=== PATIENT | female | born 1955 | race Caucasian/White ===

== ENCOUNTER → 2016-05-29 | Outpatient (CLI) | payer MEDICAID | LOC: RAD 15:11 | PROVIDERS: ATTEND Family Medicine | DX: R10.11 Right upper quadrant pain (principal); M51.36 Other intervertebral disc degeneration, lumbar region; M21.372 Foot drop, left foot | CPT/HCPCS: 72148 ==

== ENCOUNTER → 2016-05-30 | Outpatient (CLI) | payer MEDICAID | LOC: WI 08:27 | PROVIDERS: ATTEND Family Medicine | DX: R10.11 Right upper quadrant pain (principal); M21.372 Foot drop, left foot; K76.0 Fatty (change of) liver, not elsewhere classified | CPT/HCPCS: 76700 ==

== ENCOUNTER 2016-06-05 21:55 | Emergency (ER) | payer MEDICAID ==
[2016-06-05] MEDS ORDERED: ASPIRIN 81 MG TABLET, CHEWABLE PO ONE (22:12)
[2016-06-06] MEDS ORDERED: LIDOCAINE 2% VISCOUS SOLN 20 ML UDCUP PO ONE (00:56)
[2016-06-06] MEDS ORDERED: MAG HYDROX/AL HYDROX/SIMETH SUSP 30 ML UDCUP PO ONE (00:56)
[2016-06-06] MEDS ORDERED: METOCLOPRAMIDE HCL ORAL SOLN 10 MG/10 ML UDCUP PO ONE (00:56)
[2016-06-06] MEDS ORDERED: FAMOTIDINE 20 MG TABLET PO ONE (00:56)
--- NOTE | 2016-06-06 01:07 | ER Document Report ---
ED General - General Chief Complaint: Chest Pain Stated Complaint: CHEST PAIN Notes: Patient is a 60-year-old female past medical history of [id number] type II diabetes, hypertension, obesity who presents with 2 months of intermittent epigastric and right upper quadrant pain that intermittently radiates into her chest. Sates that the pain was more frequent today which prompted her to come to the emergency department for further evaluation. She did see her primary care doctor regarding these complaints and had an ultrasound of her abdomen done last week the results of which she has not been informed of. She has not had any associated vomiting, shortness of breath, hemoptysis, or exertional pain or dyspnea. No prior cardiac history and no history of DVT or pulmonary embolus. Does describe the pain as a dull, aching, cramping pain. Food does not trigger the pain. The pain does resolve spontaneously. TRAVEL OUTSIDE OF THE [place] IN LAST 30 DAYS: No - Related Data Allergies/Adverse Reactions: No Known Allergies Allergy (Verified 06/05/16 22:13) Past Medical History - General Information source: Patient - Social History Smoking Status: Never Smoker Frequency of alcohol use: None Drug Abuse: None Lives with: Spouse/Significant other Family History: Reviewed & Not Pertinent Patient has suicidal ideation: No Patient has homicidal ideation: No - Past Medical History Cardiac Medical History: Reports: Hx Hypercholesterolemia, Hx Hypertension Endocrine Medical History: Reports: Hx Diabetes Mellitus Type 2 Renal/ Medical History: Denies: Hx Peritoneal Dialysis Past Surgical History: Reports: Hx Tonsillectomy, Hx Tubal Ligation Review of Systems - Review of Systems Notes: Constitutional: Negative for fever. HENT: Negative for sore throat. Eyes: Negative for visual changes. Cardiovascular: Positive for chest pain. Respiratory: Negative for shortness of breath. Gastrointestinal: Positive for abdominal pain, negative for vomiting or diarrhea. Genitourinary: Negative for dysuria. Musculoskeletal: Negative for back pain. Skin: Negative for rash. Neurological: Negative for headaches, weakness or numbness. 10 point ROS negative except as marked above and in HPI. Physical Exam - Vital signs Vitals: Temp Pulse Resp BP Pulse Ox 98.1 F 100 18 152/81 H 96 06/05/16 21:59 06/05/16 21:59 06/05/16 21:59 06/05/16 21:59 06/05/16 21:59 Interpretation: Hypertensive Notes: PHYSICAL EXAMINATION: GENERAL: Well-appearing, well-nourished and in no acute distress. HEAD: Atraumatic, normocephalic. EYES: Pupils equal round and reactive to light, extraocular movements intact, sclera anicteric, conjunctiva are normal. ENT: nares patent, oropharynx clear without exudates. Moist mucous membranes. NECK: Normal range of motion, supple without lymphadenopathy LUNGS: Breath sounds clear to auscultation bilaterally and equal. No wheezes rales or rhonchi. HEART: Regular rate and rhythm without murmurs ABDOMEN: Soft, right upper quadrant epigastric tenderness to palpation, normoactive bowel sounds. No guarding, no rebound. No masses appreciated. EXTREMITIES: Normal range of motion, no pitting or edema. No cyanosis. NEUROLOGICAL: No focal neurological deficits. Moves all extremities spontaneously and on command. PSYCH: Normal mood, normal affect. SKIN: Warm, Dry, normal turgor, no rashes or lesions noted. Course - Re-evaluation Re-evalutation: 06/06/16 00:56 Patient presents with several months of intermittent right upper quadrant and epigastric abdominal pain intermittently radiating into her chest. Exam she has focal epigastric tenderness as well as right quadrant a gastritis or symptomatic cholelithiasis.Low clinical suspicion for ACS given clinical history , exam, EKG without ST elevations or depressions, and negative initial troponin. HEART score less than or equal to 3. PE also seems unlikely given clinical history, absence of tachycardia or dyspnea. CXR without evidence of pneumothorax or pneumonia. No widened mediastinum. Aortic dissection also seems unlikely given history, symmetric pulses, CXR, and vitals. Will obtain RUQ u/s and reassess HEART score:3 H:0 E:0 A:1 R:2 T:0 06/06/16 03:29 Right upper quadrant ultrasound shows gallbladder sludge which could be the source of patient's pain. Repeat abdominal exam remains reassuring without any rebound or guarding. Slight tenderness of right upper quadrant. She has tolerated oral intake without difficulty. I have referred to surgery for outpatient evaluation. Patient's urinalysis does demonstrate findings consistent with a acute cystitis. Culture has been sent. She was started on Keflex.At this time will discharge with return precautions and follow-up recommendations. Verbal discharge instructions given a the bedside and opportunity for questions given. Medication warnings reviewed. Patient is in agreement with this plan and has verbalized understanding of return precautions and the need for primary care follow-up in the next 24-72 hours. - Vital Signs Vital signs: Temp Pulse Resp BP Pulse Ox 98.1 F 100 18 152/81 H 96 06/05/16 21:59 06/05/16 21:59 06/05/16 21:59 06/05/16 21:59 06/05/16 21:59 - Laboratory Result Diagrams: 06/06/16 01:10 06/06/16 01:10 Laboratory results interpreted by me: 06/06/16 06/06/16 06/06/16 01:10 01:10 02:51 Hct 35.3 L RDW 14.1 H BUN 21 H Glucose 320 H Urine Protein 100 H Urine Glucose (UA) >=500 H Urine Blood SMALL H Urine Nitrite POSITIVE H Ur Leukocyte Esterase SMALL H - EKG Interpretation by Me Additional EKG results interpreted by me: 06/06/16 01:26 Sinus tachycardia. Rate 101. No ST elevations or depressions. QTC is 446. Discharge - Discharge Clinical Impression: Epigastric abdominal pain, Gallbladder sludge Acute cystitis Qualifiers: Hematuria presence: without hematuria Qualified Code(s): N30.00 - Acute cystitis without hematuria Condition: Good Disposition: HOME, SELF-CARE Additional Instructions: You have been seen in the Emergency Department (ED) for abdominal pain. Your evaluation did not identify a clear cause of your symptoms but was generally reassuring. Your ultrasound does show gallbladder sludge and this could be a trigger for some of your upper abdominal pain. Your urinalysis also shows findings consistent with a urinary tract infection. You are being started on Keflex to treat this infection. You need to complete all antibiotics even if your symptoms have resolved. Please follow-up with surgery as an outpatient regarding your gallbladder. Please follow up with your doctor as soon as possible regarding today's emergent visit and the symptoms that are bothering you. Return to the ED if your abdominal pain worsens or fails to improve, you develop bloody vomiting, bloody diarrhea, you are unable to tolerate fluids due to vomiting, fever greater than 101, or other symptoms that concern you. Prescriptions: Cephalexin Monohydrate [Keflex 500 mg Capsule] 500 mg PO QID #20 capsule Referrals: MARIAN DOWNING MD [Primary Care Provider] - Follow up as needed DEUCE JEFFERSON MD [ACTIVE STAFF] - Follow up in 3-5 days
[2016-06-06 01:26] LABS: ABSOLUTE BASOPHILS # (AUTO) 0.1 10^3/uL (0.0-0.2); ABSOLUTE EOSINOPHILS # (AUTO) 0.1 10^3/uL (0.0-0.6); ABSOLUTE LYMPHOCYTES (AUTO) 2.1 10^3/uL (0.5-4.7); ABSOLUTE MONOCYTES (AUTO) 0.7 10^3/uL (0.1-1.4); ABSOLUTE NEUT (AUTO) 2.6 10^3/uL (1.7-8.2); BASOPHILS % (AUTO) 1.2 % (0-2); EOSINOPHILS % (AUTO) 2.5 % (0-6); HEMATOCRIT 35.3 % (36.0-47.0); HEMOGLOBIN 12.2 g/dL (12.0-15.5); HGB HCT DIFFERENCE 1.3; MEAN CORPUSCULAR HEMOGLOBIN 32.5 pg (27.0-33.4); MEAN CORPUSCULAR HGB CONC 34.7 g/dL (32.0-36.0); MEAN CORPUSCULAR VOLUME 94 fl (80-97); MONOCYTES % (AUTO) 12.5 % (3-13); RED BLOOD COUNT 3.77 10^6/uL (3.72-5.28); RED CELL DISTRIBUTION WIDTH 14.1 % (11.5-14.0); SEGMENTED NEUTROPHILS % (AUTO) 46.8 % (42-78); WHITE BLOOD COUNT 5.6 10^3/uL (4.0-10.5)
[2016-06-06 01:47] LABS: ANION GAP 14 (5-19); BLOOD UREA NITROGEN 21 mg/dL (7-20); CALCIUM 9.8 mg/dL (8.4-10.2); CARBON DIOXIDE 28 mmol/L (22-30); CHLORIDE 102 mmol/L (98-107); CREATININE RESULT 0.76 mg/dL (0.52-1.25); GLUCOSE 320 mg/dL (75-110); POTASSIUM 4.4 mmol/L (3.6-5.0); SODIUM 143.8 mmol/L (137-145)
[2016-06-06 02:45] LABS: ADD ON TESTING BLD IN LAB ACKNOWLEDGE
[2016-06-06 02:59] LABS: ALANINE AMINOTRANSFERASE 33 U/L (9-52); ALKALINE PHOSPHATASE 109 U/L (38-126); ASPARTATE AMINO TRANSFERASE 25 U/L (14-36); BILIRUBIN,DIRECT 0.3 mg/dL (0.0-0.4); BILIRUBIN,TOTAL 0.5 mg/dL (0.2-1.3); LIPASE 137.6 U/L (23-300); TOTAL PROTEIN 7.3 g/dL (6.3-8.2)
[2016-06-06 03:14] LABS: APPEARANCE,URINE CLOUDY; BILIRUBIN,URINE NEGATIVE (NEGATIVE); GLUCOSE, URINE >=500 mg/dL (NEGATIVE); KETONES,URINE NEGATIVE (NEGATIVE); LEUKOCYTE ESTERASE,URINE SMALL (NEGATIVE); NITRITE,URINE POSITIVE (NEGATIVE); PROTEIN,URINE 100 mg/dL (NEGATIVE); URINE SPECIFIC GRAVITY 1.027; UROBILINOGEN,URINE NEGATIVE mg/dL (<2.0)
[2016-06-06] MEDS ORDERED: CEPHALEXIN 500 MG CAPSULE PO ONE (03:28)
[2016-06-06 05:06] VITALS: BP 152/91
--- NOTE | 2016-06-08 08:39 | EKG REPORT ---
SEVERITY:- ABNORMAL ECG - SINUS TACHYCARDIA PROBABLE INFERIOR INFARCT, AGE INDETERMINATE ANTERIOR INFARCT, AGE INDETERMINATE : Confirmed by: Sparkle Ingram 08-Jun-2016 08:38:10
== END 2016-06-06 03:45 | disposition home or self-care (01) ==
LOC: ER 21:55
DX: K82.8 Other specified diseases of gallbladder (principal); N30.00 Acute cystitis without hematuria; R10.13 Epigastric pain; R10.11 Right upper quadrant pain; E11.9 Type 2 diabetes mellitus without complications; I10 Essential (primary) hypertension; R07.9 Chest pain, unspecified; R00.0 Tachycardia, unspecified
CPT/HCPCS: 93005; 99284; 36415; 87086; 83690; 85025; 87088; 80076; 80048; 81001; 84484; 87186; 71010; 76705; 93010; J3490 ×4

== ENCOUNTER 2016-07-23 14:05 | Day surgery (SDC) | payer MEDICAID ==
[2016-07-17 08:01] LABS: HEMATOCRIT 34.8 % (36.0-47.0); HGB HCT DIFFERENCE 1.2; MEAN CORPUSCULAR HEMOGLOBIN 32.1 pg (27.0-33.4); MEAN CORPUSCULAR HGB CONC 34.5 g/dL (32.0-36.0); MEAN CORPUSCULAR VOLUME 93 fl (80-97); RED BLOOD COUNT 3.74 10^6/uL (3.72-5.28); RED CELL DISTRIBUTION WIDTH 13.9 % (11.5-14.0); WHITE BLOOD COUNT 7.8 10^3/uL (4.0-10.5)
[2016-07-18 11:41] LABS: ALANINE AMINOTRANSFERASE 25 U/L (9-52); ALBUMIN 4.1 g/dL (3.5-5.0); ALKALINE PHOSPHATASE 110 U/L (38-126); ANION GAP 13 (5-19); ASPARTATE AMINO TRANSFERASE 18 U/L (14-36); BILIRUBIN,TOTAL 0.5 mg/dL (0.2-1.3); BLOOD UREA NITROGEN 27 mg/dL (7-20); CALCIUM 10.4 mg/dL (8.4-10.2); CARBON DIOXIDE 30 mmol/L (22-30); CHLORIDE 99 mmol/L (98-107); CREATININE RESULT 0.93 mg/dL (0.52-1.25); GLUCOSE 184 mg/dL (75-110); POTASSIUM 3.9 mmol/L (3.6-5.0); SODIUM 142.4 mmol/L (137-145)
[2016-07-18 11:42] LABS: AMYLASE 44 U/L (30-110); BILIRUBIN,DIRECT 0.4 mg/dL (0.0-0.4); TOTAL PROTEIN 7.2 g/dL (6.3-8.2)
--- NOTE | 2016-07-19 17:49 | EKG REPORT ---
SEVERITY:- ABNORMAL ECG - SINUS RHYTHM PROBABLE INFERIOR INFARCT, AGE INDETERMINATE BORDERLINE R WAVE PROGRESSION, ANTERIOR LEADS : Confirmed by: Nicole Rodriguez MD 19-Jul-2016 17:48:29
[~2016-07-23 14:05] MED LIST: ACETAMINOPHEN 325 MG TABLET PO PRN; CEFAZOLIN 1 GM/D5W RTU 1 GM/50 ML RTUPB IV PRN; DEXAMETHASONE SOD PHOSPHATE INJ 4 MG/1 ML VIAL ONE; GLYCOPYRROLATE INJ 0.4 MG/2 ML VIAL ONE; LIDOCAINE 0.5% INJ-PF (5 MG/ML) 50 ML SDV INJ PRN; LIDOCAINE 2% INJ-PF (20 MG/ML) 10 ML AMPUL ONE; NEOSTIGMINE METHYLSULFATE 10 MG/10 ML VIAL ONE; ONDANSETRON HCL INJ/PF 4 MG/2 ML SDV ONE; RINGERS SOLUTION,LACTATED 1,000 ML IV PRN; ROCURONIUM BROMIDE INJ 50 MG/5 ML VIAL IV ONE; SUCCINYLCHOLINE CHLORIDE INJ 200 MG/10 ML VIAL ONE
[2016-07-23] MEDS ORDERED: ONDANSETRON HCL INJ/PF 4 MG/2 ML SDV ONE ×2 (15:49→18:38)
[2016-07-23] MEDS ORDERED: MIDAZOLAM 2 MG/2 ML INJ ONE ×2 (15:49→16:50)
[2016-07-23] MEDS ORDERED: FENTANYL CITRATE INJ/PF 250 MCG/5 ML AMPULE ONE (16:50)
[2016-07-23] MEDS ORDERED: HYDROMORPHONE HCL INJ/PF 2 MG/ML AMPULE ONE (16:50)
[2016-07-23] MEDS ORDERED: EPHEDRINE SULFATE INJ 50 MG/1 ML AMPULE ONE (16:50)
[2016-07-23] MEDS ORDERED: PROPOFOL INJ 200 MG/20 ML VIAL IV ONE (16:51)
[2016-07-23] MEDS ORDERED: ACETAMINOPHEN 100 ML IV ONE (16:51)
[2016-07-23] MEDS ORDERED: BUPIVACAINE HCL 0.25 % INJ/PF (2.5 MG/1 ML) 30 ML VIAL ONE (16:53)
[2016-07-23] MEDS ORDERED: PROMETHAZINE HCL INJ 25 MG/1 ML VIAL IV PRN ×2 (17:39)
[2016-07-23] MEDS ORDERED: OXYCODONE-ACETAMINOPHEN 5-325 MG TABLET PO PRN ×3 (17:39→18:14)
[2016-07-23] MEDS ORDERED: FENTANYL CITRATE INJ/PF 100 MCG/2 ML AMPUL IV PRN ×3 (17:39)
[2016-07-23] MEDS ORDERED: MEPERIDINE HCL/PF INJ 25 MG/1 ML DISP.SYRIN IV PRN (17:39)
[2016-07-23] MEDS ORDERED: DIPHENHYDRAMINE HCL 50 MG/ML VIAL IV PRN (17:39)
[2016-07-23] MEDS ORDERED: MORPHINE SULFATE 10 MG/ML INJ IV PRN ×2 (17:39→18:14)
[2016-07-23] MEDS ORDERED: ONDANSETRON HCL INJ/PF 4 MG/2 ML SDV IV PRN (18:14)
[2016-07-23] MEDS ORDERED: RINGERS SOLUTION,LACTATED 1,000 ML IV PRN (18:14)
--- NOTE | 2016-07-23 18:14 | Operative Report ---
Operative Report DATE OF SURGERY: 07/23/16 PREOPERATIVE DIAGNOSIS: Symptomatic cholelithiasis and cholecystitis POSTOPERATIVE DIAGNOSIS: Same OPERATION: Laparoscopic cholecystectomy SURGEON: DEUCE JEFFERSON 1ST TURBINE TECHNICIAN: MAKEDA MACK ANESTHESIA: GA TISSUE REMOVED OR ALTERED: 1 gallbladder with stones COMPLICATIONS: None none ESTIMATED BLOOD LOSS: Scant INTRAOPERATIVE FINDINGS: See below PROCEDURE: Patient was taken to the preop holding area the main operating room where general anesthesia was induced. Abdomen was exposed, prepped and draped in a sterile fashion and instrumentation set up for laparoscopic cholecystectomy. Of note the patient was morbidly obese with a BMI of 46. A supraumbilical vertical incision was made with a knife , Veress needle inserted into the peritoneal cavity and pneumoperitoneum was established. The Veress needle was removed, 5 mm port standard length was inserted into the peritoneal cavity and a 5 mm flexible viewing scope was inserted. Under direct visualization 3 additional ports were placed one in the subxiphoid and 2 in the subcostal positions Findings were significant for distended gallbladder. Gallbladder was aspirated approximately 100 cc of bile with the sharp trocar. We attempted to grasp the gallbladder from the fundus and infundibulum but the visualization was poor due to the patient's body habitus preventing adequate exposure. Therefore we rotated to a top down approach. Gallbladder was taken off of the liver bed in the methodical fashion using hook cautery dissection. We proceeded in a very thorough excellently visualized fashion all the way down to the neck of the gallbladder. Once this was accomplished we are able to get around the neck of the gallbladder circumferentially and confirm that we were now suspended solely from the cystic artery and the cystic duct. Photographs were taken. Cystic artery was clipped twice proximally once distally and divided with scissors. The cystic duct in its usual location was clipped twice proximally once distally and it was divided with scissors. The gallbladder was removed from the patient in the supraumbilical port site incision where there is no spillage of stones or bile. We checked the subhepatic space for bleeding bile leak and was none; all ports removed under direct visualization, wounds closed with 3-0 Vicryl benzoin and Steri-Strips. Patient taught procedure well taken to recovery in stable condition. KYLIE Mack, assistant drafter with port insertion, tissue retraction, and wound closure.
--- NOTE | 2016-07-23 18:24 | PDOC DISCHARGE SUMMARY ---
Discharge Summary (SDC) - Discharge Final Diagnosis: Symptomatic GS Date of Surgery: 07/23/16 Discharge Date: 07/23/16 Condition: Good Treatment or Instructions: [facility] [address] [place] [id number] Discharge Instructions: Laparoscopic Surgery 1. General Information: a. DO NOT DRIVE a car or operate dangerous machinery for 3-4 days or while taking narcotic pain pills. b. DO NOT consume alcohol, tranquilizers, sleeping medications or any non- prescribed medications for 24 hours unless approved by your doctor or as long as taking narcotic prescription medications. c. DO NOT make important decisions or sign any important papers for the first 24 hours after surgery. d. When discharged home the same day of surgery have a responsible person with you for the first night. 2. Activity Restrictions: 4 weeks. a. NO heavy lifting, straining abdominal muscles, bending over a lot, yard work, house work, or sports for 2 weeks. b. c. It is fine to go for walks, up and down steps, ride in a car. d. Elevate your head when sleeping/resting. 3. Treatment: a. You may shower 24 hours after surgery, no baths or swimming for 2 weeks. Remove band-aids or dressings before shower but leave paper strips (steri-strips ) on the skin to fall off on their own. If still on at postoperative visit they will be removed then. b. Drainage of fluid or blood is not unusual from an incision. If occurs, you can clean with peroxide and cotton ball daily and cover with dry gauze until the wound seals. c. If a lot of bleeding occurs, you can hold pressure with a gauze or cloth over the site for 10 minutes and it will usually stop. If bleeding continues you will need to call for possible evaluation in office or emergency room. 4. Medications: a. . You may switch to plain Tylenol, Advil or Aleve as you transition from the narcotic. Many adults find good pain relief with Advil 600-800 mg three times a day with meals. This can cause indigestion, ulcers, and kidney problems with long-term use. b. You should resume all normal medications unless a change is specified by your doctors. c. Begin with clear liquids and may progress to your normal diet if not nauseated. No high fat, high protein foods the day of surgery. Normal diet 6. The following may occur after laparoscopic surgery: a. Shoulder or upper back ache from retained gas that should resolve in 1-2 days b. Soreness and bruising at incision sites will resolve with time. c. Scrotal swelling (labia in women) and bruising is often seen after hernia surgery. d. Sore throat e. Fatigue may last days to weeks. f. Difficulty urinating may occur and may need to come into emergency room for urinary catheter placement. 7. Notify Physician If: a. Worsening or pain not improved with pain medication b. Persistent nausea and vomiting c. Fever above 101 d. Persistent bleeding or swelling at operative site e. Unable to urinate and uncomfortable bladder 6-8 hours after surgery 8..Follow Up Care: a. Schedule a follow up appointment with your doctor for 2 weeks. In the event of any postoperative problems or questions or you may call the office during business hours or the On-Call physician evenings and weekends at [facility]. [facility] I understand the instructions for my postoperative care as described above and a copy has been given to me. Patient/Significant Other Witness Date Prescriptions: Ketorolac Tromethamine [Toradol 10 mg Tablet] 10 mg PO Q6HP PRN #0 tablet PRN Reason: Discharge Diet: As Tolerated Discharge Activity: Activity As Tolerated Home Care Assistance: None Needed Report the Following to Your Physician Immediately: Shortness of Breath, Increase in Pain, Fever over 101 Degrees
[2016-07-23] MEDS ORDERED: DEXTROSE 50%-WATER 25 GM/50 ML DISP.SYRIN IV ONE (18:27)
[2016-07-24 10:16] VITALS: BP 136/68
== END 2016-07-24 11:29 | disposition home or self-care (01) ==
LOC: OROUT 14:05 → 4S 19:22 → OROUT 07-24 11:29
PROVIDERS: ATTEND Surgery
PROC: 0FT44ZZ Resection of Gallbladder, Percutaneous Endoscopic Approach (ICD-10-PCS; principal; 2016-07-23 15:45)
DX: K81.1 Chronic cholecystitis (principal); E11.9 Type 2 diabetes mellitus without complications; I10 Essential (primary) hypertension; E66.9 Obesity, unspecified; M19.90 Unspecified osteoarthritis, unspecified site; Z79.891 Long term (current) use of opiate analgesic; Z79.84 Long term (current) use of oral hypoglycemic drugs; Z79.4 Long term (current) use of insulin; Z68.42 Body mass index [BMI] 45.0-49.9, adult
CPT/HCPCS: 93005; 36415 ×2; 82962; 82150; 84132; 85027; 80076; 80048; 88304 ×2; 93010; 47562; J2250; J0690; J3490 ×5; J1100; J3010; J0330; J2405; S0020; J2704; J0131; 790; J1170

== ENCOUNTER → 2016-09-08 | Outpatient (CLI) | payer MEDICAID ==
--- NOTE | 2016-09-08 17:05 | RADIOLOGY REPORT (SQ) ---
EXAM DESCRIPTION: SHOULDER LEFT 2 OR MORE VIEWS COMPLETED DATE/TIME: 09/08/2016 4:52 pm REASON FOR STUDY: UNSP INJURY OF LEFT SHOULDER AND UPPER ARM, INIT ENCNTR S49.92XA UNSP INJURY OF L EFT SHOULDER AND UPPER ARM, INIT EN COMPARISON: None. NUMBER OF VIEWS: Three views. TECHNIQUE: Internal rotation, external rotation, and Y view images acquired of the left shoulder. LIMITATIONS: None. FINDINGS: MINERALIZATION: Osteopenia. BONES: No acute fracture. Glenohumeral osteoarthritis. JOINTS: No dislocation. VISUALIZED LUNGS AND RIBS: No pneumothorax. No rib fracture. SOFT TISSUES: No radiopaque foreign body. OTHER: No other significant finding. IMPRESSION: No acute fracture. TECHNICAL DOCUMENTATION: JOB ID: [id number] [employer]- All Rights Reserved
== END ==
LOC: OD 15:47
PROVIDERS: ATTEND Family Medicine
DX: S49.92XA Unspecified injury of left shoulder and upper arm, initial encounter (principal)

== ENCOUNTER → 2016-10-28 | Outpatient (CLI) | payer MEDICAID ==
[2016-10-28 10:19] LABS: HEMATOCRIT 30.2 % (36.0-47.0); HEMOGLOBIN 10.7 g/dL (12.0-15.5); HGB HCT DIFFERENCE 1.9; MEAN CORPUSCULAR HGB CONC 35.5 g/dL (32.0-36.0); MEAN CORPUSCULAR VOLUME 93 fl (80-97); RED BLOOD COUNT 3.25 10^6/uL (3.72-5.28); RED CELL DISTRIBUTION WIDTH 14.8 % (11.5-14.0); WHITE BLOOD COUNT 6.5 10^3/uL (4.0-10.5)
[2016-10-28 10:36] LABS: ALANINE AMINOTRANSFERASE 31 U/L (9-52); ALKALINE PHOSPHATASE 105 U/L (38-126); ANION GAP 11 (5-19); ASPARTATE AMINO TRANSFERASE 22 U/L (14-36); BILIRUBIN,DIRECT 0.4 mg/dL (0.0-0.4); BILIRUBIN,TOTAL 0.7 mg/dL (0.2-1.3); BLOOD UREA NITROGEN 22 mg/dL (7-20); CALCIUM 9.2 mg/dL (8.4-10.2); CARBON DIOXIDE 30 mmol/L (22-30); CHLORIDE 102 mmol/L (98-107); CHOLESTEROL 218.44 mg/dL (0-200); CREATINE KINASE 87 U/L (30-135); CREATININE RESULT 0.94 mg/dL (0.52-1.25); Direct HDL 79 mg/dL (>40); GLUCOSE 129 mg/dL (75-110); POTASSIUM 4.5 mmol/L (3.6-5.0); SODIUM 143.4 mmol/L (137-145); TOTAL PROTEIN 6.9 g/dL (6.3-8.2); TRIGLYCERIDES 253 mg/dL (<150)
[2016-10-28 10:47] LABS: DIRECT LDL 89 mg/dL (<100)
[2016-10-28 10:48] LABS: VLDL CHOLESTEROL 50.6 mg/dL (10-31)
[2016-10-28 11:13] LABS: MAGNESIUM 1.2 mg/dL (1.6-2.3)
== END ==
LOC: OD 08:39
PROVIDERS: ATTEND Internal Medicine Cardiovascular Disease
DX: R25.2 Cramp and spasm (principal); I49.9 Cardiac arrhythmia, unspecified; E78.2 Mixed hyperlipidemia; Z79.899 Other long term (current) drug therapy
CPT/HCPCS: 36415; 80048; 80061; 80076; 82306; 82550; 83036; 83735; 84443; 85027

== ENCOUNTER → 2016-11-13 | Outpatient (CLI) | payer MEDICAID ==
--- NOTE | 2016-11-13 15:02 | RADIOLOGY REPORT (SQ) ---
EXAM DESCRIPTION: U/S RETROPERITON (RENAL/AORTA) COMPLETED DATE/TIME: 11/13/2016 1:19 pm REASON FOR STUDY: CKD STAGE 3/TYPE 2 DIABETES N18.3 CHRONIC KIDNEY DISEASE, STAGE 3 (MODERATE) E11. 9 TYPE 2 DIABETES MELLITUS WITHOUT COMPLICATIONS COMPARISON: Abdominal ultrasound 05/30/2016, 06/06/2016 TECHNIQUE: Static and dynamic grayscale images acquired of the kidneys and bladder and stored on PAC s. Selected color Doppler and spectral images recorded. LIMITATIONS: Large body habitus FINDINGS: Limited visualization due to morbid obesity. Both kidneys measure 11 cm in length without hydronephrosis. Normal cortical thickness and echogenicity. No gross stones. Bladder was decompressed and not well-visualized. IMPRESSION: No hydronephrosis. TECHNICAL DOCUMENTATION: JOB ID: [id number] [employer]- All Rights Reserved
== END ==
LOC: RAD 12:48
PROVIDERS: ATTEND Internal Medicine Nephrology
DX: I12.9 Hypertensive chronic kidney disease with stage 1 through stage 4 chronic kidney disease, or unspecified chronic kidney disease (principal); N18.3 Chronic kidney disease, stage 3 (moderate); E11.9 Type 2 diabetes mellitus without complications
CPT/HCPCS: 76770

== ENCOUNTER → 2016-11-24 | Outpatient (CLI) | payer MEDICAID ==
[2016-11-24 13:29] LABS: HEMATOCRIT 30.6 % (36.0-47.0); HEMOGLOBIN 10.9 g/dL (12.0-15.5); HGB HCT DIFFERENCE 2.1; MEAN CORPUSCULAR HEMOGLOBIN 32.7 pg (27.0-33.4); MEAN CORPUSCULAR HGB CONC 35.6 g/dL (32.0-36.0); MEAN CORPUSCULAR VOLUME 92 fl (80-97); RED BLOOD COUNT 3.32 10^6/uL (3.72-5.28); RED CELL DISTRIBUTION WIDTH 14.5 % (11.5-14.0); WHITE BLOOD COUNT 8.6 10^3/uL (4.0-10.5)
[2016-11-24 13:52] LABS: APPEARANCE,URINE SLIGHTLY-CLOUDY; BILIRUBIN,URINE NEGATIVE (NEGATIVE); GLUCOSE, URINE 50 mg/dL (NEGATIVE); KETONES,URINE NEGATIVE (NEGATIVE); LEUKOCYTE ESTERASE,URINE TRACE (NEGATIVE); NITRITE,URINE NEGATIVE (NEGATIVE); PROTEIN,URINE NEGATIVE (NEGATIVE); URINE SPECIFIC GRAVITY 1.006; UROBILINOGEN,URINE NEGATIVE mg/dL (<2.0)
[2016-11-24 13:53] LABS: ANION GAP 11 (5-19); BLOOD UREA NITROGEN 32 mg/dL (7-20); CALCIUM 10.1 mg/dL (8.4-10.2); CARBON DIOXIDE 31 mmol/L (22-30); CHLORIDE 99 mmol/L (98-107); CREATININE RESULT 1.25 mg/dL (0.52-1.25); GLUCOSE 180 mg/dL (75-110); POTASSIUM 3.9 mmol/L (3.6-5.0); SODIUM 141.1 mmol/L (137-145)
[2016-11-24 14:13] LABS: URINE CREATININE 44.1 mg/dL (15-278); URINE PROTEIN 22.7 mg/dL (<12)
== END ==
LOC: OD 12:06
PROVIDERS: ATTEND Physician Assistant Medical
DX: E11.22 Type 2 diabetes mellitus with diabetic chronic kidney disease (principal); I12.9 Hypertensive chronic kidney disease with stage 1 through stage 4 chronic kidney disease, or unspecified chronic kidney disease; N18.3 Chronic kidney disease, stage 3 (moderate); R60.9 Edema, unspecified; E83.42 Hypomagnesemia
CPT/HCPCS: 36415; 80048; 81001; 82306; 82570; 83735; 84156; 85027

== ENCOUNTER → 2016-12-18 | Outpatient (CLI) | payer MEDICAID ==
[2016-12-18 10:41] LABS: HEMATOCRIT 30.5 % (36.0-47.0); HEMOGLOBIN 10.8 g/dL (12.0-15.5); HGB HCT DIFFERENCE 1.9; MEAN CORPUSCULAR HEMOGLOBIN 33.2 pg (27.0-33.4); MEAN CORPUSCULAR HGB CONC 35.5 g/dL (32.0-36.0); MEAN CORPUSCULAR VOLUME 94 fl (80-97); RED BLOOD COUNT 3.26 10^6/uL (3.72-5.28); RED CELL DISTRIBUTION WIDTH 14.4 % (11.5-14.0); WHITE BLOOD COUNT 6.9 10^3/uL (4.0-10.5)
[2016-12-18 11:06] LABS: ANION GAP 13 (5-19); BLOOD UREA NITROGEN 28 mg/dL (7-20); CALCIUM 9.6 mg/dL (8.4-10.2); CARBON DIOXIDE 30 mmol/L (22-30); CHLORIDE 103 mmol/L (98-107); GLUCOSE 188 mg/dL (75-110); POTASSIUM 3.9 mmol/L (3.6-5.0); SODIUM 146.3 mmol/L (137-145)
[2016-12-18 11:44] LABS: APPEARANCE,URINE CLOUDY; BILIRUBIN,URINE NEGATIVE (NEGATIVE); GLUCOSE, URINE NEGATIVE (NEGATIVE); KETONES,URINE NEGATIVE (NEGATIVE); LEUKOCYTE ESTERASE,URINE LARGE (NEGATIVE); NITRITE,URINE NEGATIVE (NEGATIVE); PROTEIN,URINE 30 mg/dL (NEGATIVE); URINE SPECIFIC GRAVITY 1.016; UROBILINOGEN,URINE NEGATIVE mg/dL (<2.0)
== END ==
LOC: OD 09:52
PROVIDERS: ATTEND Physician Assistant Medical
DX: E11.22 Type 2 diabetes mellitus with diabetic chronic kidney disease (principal); I12.9 Hypertensive chronic kidney disease with stage 1 through stage 4 chronic kidney disease, or unspecified chronic kidney disease; N18.3 Chronic kidney disease, stage 3 (moderate); D64.9 Anemia, unspecified; E83.42 Hypomagnesemia
CPT/HCPCS: 36415; 80048; 81001; 82607; 82728; 83540; 83550; 84443; 85027

== ENCOUNTER 2017-04-17 07:10 | Day surgery (SDC) | payer MEDICAID ==
[2017-04-17 07:52] LABS: POTASSIUM 3.6 mmol/L (3.6-5.0)
[2017-04-17 08:29] LABS: ANION GAP 10 (5-19); BLOOD UREA NITROGEN 21 mg/dL (7-20); CALCIUM 10.1 mg/dL (8.4-10.2); CARBON DIOXIDE 29 mmol/L (22-30); CHLORIDE 106 mmol/L (98-107); GLUCOSE 150 mg/dL (75-110); POTASSIUM 3.6 mmol/L (3.6-5.0); SODIUM 144.7 mmol/L (137-145)
[2017-04-17] MEDS ORDERED: PROPOFOL INJ 200 MG/20 ML VIAL IV ONE ×2 (09:31→10:07)
[2017-04-17] MEDS ORDERED: DIPHENHYDRAMINE HCL 50 MG/ML VIAL IV PRN (10:09)
[2017-04-17] MEDS ORDERED: PROMETHAZINE HCL INJ 25 MG/1 ML VIAL IV PRN ×2 (10:09)
[2017-04-17] MEDS ORDERED: OXYCODONE-ACETAMINOPHEN 5-325 MG TABLET PO PRN ×2 (10:09)
[2017-04-17] MEDS ORDERED: FENTANYL CITRATE INJ/PF 100 MCG/2 ML AMPUL IV PRN ×3 (10:09)
[2017-04-17] MEDS ORDERED: MORPHINE SULFATE 10 MG/ML INJ IV PRN (10:09)
[2017-04-17] MEDS ORDERED: MEPERIDINE HCL/PF INJ 25 MG/1 ML DISP.SYRIN IV PRN (10:09)
--- NOTE | 2017-04-17 10:23 | Operative Report ---
Operative Report DATE OF SURGERY: 04/17/17 Operative Report: The risks, benefits and alternatives of the procedure including risks of bleeding, perforation requiring surgery are explained to the patient in detail and informed consent is obtained. Patient was taken back to the operating room and placed in a left, lateral decubital position. Timeout was called. Propofol medications administered. A rectal examination is done which did not reveal any masses, tears or fissures. An Olympus videoscope was inserted into the patient's rectum. The scope was then carefully advanced all the way to the cecum. The cecum was identified by the usual anatomical landmarks including the ileocecal valve as well as the appendiceal office. Photodocumentation is obtained. Scope was then sequentially pulled back via the various segments of the colon including the ascending colon, hepatic flexure, transverse colon, splenic flexure, descending colon and finding to the rectosigmoid portions of the colon. Retroflexion maneuvers performed. The risks benefits and alternatives of the procedure explained to the patient in detail and informed consent is obtained.A GIF Olympus video scope was inserted into the patient's mouth and hypopharynx, the esophagus is identified intubated and insufflated, the scope was then advanced through the esophagus stomach and duodenum, retroflexion maneuver is done, the esophagus stomach and first and second portions of the duodenum examined PREOPERATIVE DIAGNOSIS: Iron deficiency anemia POSTOPERATIVE DIAGNOSIS: Colon polyp, status post removal no tissue retrieved it was ablated in situ. Left side colitis status post biopsy. internal hemorrhoids. gastritis status post biopsy rule out Helicobacter pylori. Duodenitis OPERATION: Colonoscopy with snare polypectomy. Colonoscopy with biopsy. EGD with biopsy SURGEON: CAMELIA PINEDA ANESTHESIA: LMAC TISSUE REMOVED OR ALTERED: As noted above. COMPLICATIONS: None. ESTIMATED BLOOD LOSS: None. INTRAOPERATIVE FINDINGS: As described above. PROCEDURE: Patient tolerated procedure well. No immediate postprocedure complications are noted. Patient discharged in good condition. Discharge date 04/17/2018. Discharge diet: Regular. Discharge activity: Regular. 2-3 week follow-up to discuss findings. 3 year surveillance colonoscopy. We will await pathology. Patient is instructed call the office or proceed to the emergency room should there be any further problems or questions.
[2017-04-17] MEDS ORDERED: LIDOCAINE 0.5% INJ-PF (5 MG/ML) 50 ML SDV SUBCUT PRN (10:49)
--- NOTE | 2017-04-17 11:06 | EKG REPORT ---
SEVERITY:- ABNORMAL ECG - SINUS RHYTHM LOW VOLTAGE THROUGHOUT CONSIDER INFERIOR INFARCT CONSIDER ANTERIOR INFARCT BORDERLINE T WAVE ABNORMALITIES BORDERLINE PROLONGED QT INTERVAL : Confirmed by: Sparkle Ingram 17-Apr-2017 11:05:09
[2017-04-17 12:07] VITALS: BP 172/90
[2017-04-20] MEDS ORDERED: OXYCODONE HCL SR 10 MG TABLET PO PRN (05:00)
[2017-04-20] MEDS ORDERED: CEFAZOLIN INJ 1 GM VIAL IV PRN (05:00)
[2017-04-20] MEDS ORDERED: LANSOPRAZOLE 15 MG TAB.RAP.DR PO PRN (05:00)
[2017-04-20] MEDS ORDERED: BUPIVACAINE INJ/PF LIPOSOME/PF 266 MG/20 ML SDV INJ PRN (05:00)
[2017-04-20] MEDS ORDERED: IBUPROFEN 800 MG in NORMAL SALINE 250 ML IV PRN (05:00)
[2017-04-20] MEDS ORDERED: VANCOMYCIN HCL 1,000 MG in DEXTROSE 5%-WATER 250 ML IV PRN (05:00)
== END 2017-04-17 11:50 | disposition home or self-care (01) ==
LOC: OROUT 07:10
PROVIDERS: ATTEND Internal Medicine Gastroenterology
PROC: 0DB68ZX Excision of Stomach, Via Natural or Artificial Opening Endoscopic, Diagnostic (ICD-10-PCS; principal; 2017-04-17 09:30)
PROC: 0DBE8ZX Excision of Large Intestine, Via Natural or Artificial Opening Endoscopic, Diagnostic (ICD-10-PCS; 2017-04-17 09:30)
PROC: 0DBE8ZZ Excision of Large Intestine, Via Natural or Artificial Opening Endoscopic (ICD-10-PCS; 2017-04-17 09:30)
DX: R13.10 Dysphagia, unspecified (principal); K63.5 Polyp of colon; D50.9 Iron deficiency anemia, unspecified; K52.9 Noninfective gastroenteritis and colitis, unspecified; K29.80 Duodenitis without bleeding; K29.70 Gastritis, unspecified, without bleeding
CPT/HCPCS: 45388; 45380; 43239; 36415; 82947; 84132; 80048; 88305 ×2; 93005; 93010; J2704; 813

== ENCOUNTER 2017-12-17 17:51 | Emergency (ER) | payer MEDICAID ==
--- NOTE | 2017-12-17 18:25 | ER Document Report ---
ED Medical Screen (RME) - General Chief Complaint: Nausea/Vomiting/Diarrhea Stated Complaint: VOMITING Time Seen by Provider: 12/17/17 18:18 Notes: 62 years old female presents today with diffuse abdominal pain nausea vomiting and loose stools for the last few days. No fever chills or other constitutional symptoms. Morbidly obese. TRAVEL OUTSIDE OF THE [place] IN LAST 30 DAYS: No - Related Data Allergies/Adverse Reactions: No Known Allergies Allergy (Verified 12/17/17 17:52) Past Medical History - Past Medical History Cardiac Medical History: Reports: Hx Coronary Artery Disease - high chol, Hx Hypercholesterolemia, Hx Hypertension Denies: Hx Heart Attack Pulmonary Medical History: Denies: Hx Asthma, Hx Bronchitis, Hx COPD, Hx Pneumonia Neurological Medical History: Denies: Hx Cerebrovascular Accident, Hx Seizures Endocrine Medical History: Reports: Hx Diabetes Mellitus Type 2 Renal/ Medical History: Denies: Hx Peritoneal Dialysis Musculoskeltal Medical History: Reports Hx Arthritis Past Surgical History: Reports: Hx Tonsillectomy, Hx Tubal Ligation - Immunizations Hx Diphtheria, Pertussis, Tetanus Vaccination: Yes History of Influenza Vaccine for 11/2016 - 04/2017 Season: Yes Influenza Administration Date for 11/2016 - 04/2017 Season: 12/01/16 Physical Exam - Vital signs Vitals: Temp Pulse Resp BP Pulse Ox 97.9 F 87 18 209/99 H 94 12/17/17 17:57 12/17/17 17:57 12/17/17 17:57 12/17/17 17:57 12/17/17 17:57 Course - Vital Signs Vital signs: Temp Pulse Resp BP Pulse Ox 97.9 F 87 18 209/99 H 94 12/17/17 17:57 12/17/17 17:57 12/17/17 17:57 12/17/17 17:57 12/17/17 17:57 Doctor's Discharge - Discharge Referrals: NESS MITCHELL MD [Primary Care Provider] - Follow up as needed
[2017-12-17 18:52] LABS: ABSOLUTE BASOPHILS # (AUTO) 0.1 10^3/uL (0.0-0.2); ABSOLUTE LYMPHOCYTES (AUTO) 2.9 10^3/uL (0.5-4.7); ABSOLUTE MONOCYTES (AUTO) 0.6 10^3/uL (0.1-1.4); ABSOLUTE NEUT (AUTO) 5.5 10^3/uL (1.7-8.2); BASOPHILS % (AUTO) 0.7 % (0-2); EOSINOPHILS % (AUTO) 0.5 % (0-6); HEMOGLOBIN 11.4 g/dL (12.0-15.5); LYMPHOCYTES % (AUTO) 31.6 % (13-45); MEAN CORPUSCULAR HEMOGLOBIN 31.3 pg (27.0-33.4); MEAN CORPUSCULAR HGB CONC 34.5 g/dL (32.0-36.0); MEAN CORPUSCULAR VOLUME 91 fl (80-97); MONOCYTES % (AUTO) 6.9 % (3-13); PLATELET COUNT 346 10^3/uL (150-450); RED BLOOD COUNT 3.64 10^6/uL (3.72-5.28); RED CELL DISTRIBUTION WIDTH 15.9 % (11.5-14.0); SEGMENTED NEUTROPHILS % (AUTO) 60.3 % (42-78); TOTAL CELLS COUNTED % (AUTO) 100 %; WHITE BLOOD COUNT 9.1 10^3/uL (4.0-10.5)
--- NOTE | 2017-12-17 19:07 | RADIOLOGY REPORT (SQ) ---
EXAM DESCRIPTION: ACUTE ABDOMEN SERIES COMPLETED DATE/TIME: 12/17/2017 6:51 pm REASON FOR STUDY: Abdominal pain COMPARISON: None. NUMBER OF VIEWS: Three views. TECHNIQUE: Frontal chest, supine abdomen and upright/decubitus abdomen radiographic images acquired. LIMITATIONS: None. FINDINGS: CHEST: Heart size is borderline. FREE AIR: None. No abnormal gas collections. BOWEL GAS PATTERN: Nonobstructive pattern. No dilated loops or air fluid levels. CALCIFICATIONS: No suspicious calcifications. HARDWARE: None in the abdomen. SOFT TISSUES: No gross mass or suggestion of organomegaly. BONES: No acute fracture. No worrisome bone lesions. OTHER: No other significant finding. IMPRESSION: Borderline heart size. Unremarkable abdomen. TECHNICAL DOCUMENTATION: JOB ID: [id number] [employer]- All Rights Reserved Reading location - IP/workstation name: [email or web address]
[2017-12-17 19:19] LABS: ALANINE AMINOTRANSFERASE 13 U/L (9-52); ALBUMIN 3.7 g/dL (3.5-5.0); ALKALINE PHOSPHATASE 109 U/L (38-126); ANION GAP 8 (5-19); ASPARTATE AMINO TRANSFERASE 18 U/L (14-36); BILIRUBIN,DIRECT 0.3 mg/dL (0.0-0.4); BILIRUBIN,TOTAL 1.3 mg/dL (0.2-1.3); BLOOD UREA NITROGEN 23 mg/dL (7-20); CALCIUM 9.4 mg/dL (8.4-10.2); CARBON DIOXIDE 31 mmol/L (22-30); CHLORIDE 100 mmol/L (98-107); GLUCOSE 207 mg/dL (75-110); POTASSIUM 3.2 mmol/L (3.6-5.0); SODIUM 139.4 mmol/L (137-145); TOTAL PROTEIN 7.1 g/dL (6.3-8.2)
[2017-12-17] MEDS ORDERED: ONDANSETRON HCL INJ/PF 4 MG/2 ML SDV IV ONE (19:35)
[2017-12-17] MEDS ORDERED: NORMAL SALINE 1000 ML 1,000 ML IV ONE (19:36)
[2017-12-17 20:21] LABS: VENOUS BLOOD BASE EXCESS 6.3 mmol/L; VENOUS BLOOD HCO3 31.4 mmol/L (20-32); VENOUS BLOOD PCO2 49.3 mmHg (35-63); VENOUS BLOOD PH 7.42 (7.30-7.42)
--- NOTE | 2017-12-17 21:00 | ER Document Report ---
ED General - General Chief Complaint: Nausea/Vomiting/Diarrhea Stated Complaint: VOMITING Time Seen by Provider: 12/17/17 18:18 Mode of Arrival: Ambulatory Information source: Patient Notes: 62-year-old female with hypertension, hyperlipidemia, type 2 diabetes presents with complaint of abdominal pain, nausea, vomiting and diarrhea. Patient states symptoms started 1 week prior to arrival. Pain is located in the right upper and right lower quadrant and described as an aching pain. Patient states that she has had 1-2 episodes of vomiting daily and 1-2 episodes of nonbloody diarrhea daily. She denies any recent antibiotic use, recent travel, recent hospitalizations. She has been compliant with her Lantus 50 units twice daily and her NovoLog. She does admit to associated chills sweats but denies any chest pain, shortness of breath, diaphoresis. TRAVEL OUTSIDE OF THE [place] IN LAST 30 DAYS: No - HPI Onset: Last week Onset/Duration: Persistent Quality of pain: Achy Severity: Mild Associated symptoms: Chills, Diarrhea, Nausea, Vomiting. denies: Chest pain, Fever, Shortness of breath Exacerbated by: Denies Relieved by: Denies Similar symptoms previously: No Recently seen / treated by doctor: No - Related Data Allergies/Adverse Reactions: No Known Allergies Allergy (Verified 12/17/17 17:52) Past Medical History - General Information source: Patient, [facility] Records - Social History Smoking Status: Never Smoker Chew tobacco use (# tins/day): No Frequency of alcohol use: None Drug Abuse: None Lives with: Family Family History: Reviewed & Not Pertinent Patient has suicidal ideation: No Patient has homicidal ideation: No - Past Medical History Cardiac Medical History: Reports: Hx Coronary Artery Disease - high chol, Hx Hypercholesterolemia, Hx Hypertension Denies: Hx Heart Attack Pulmonary Medical History: Denies: Hx Asthma, Hx Bronchitis, Hx COPD, Hx Pneumonia Neurological Medical History: Denies: Hx Cerebrovascular Accident, Hx Seizures Endocrine Medical History: Reports: Hx Diabetes Mellitus Type 2 Renal/ Medical History: Denies: Hx Peritoneal Dialysis Musculoskeletal Medical History: Reports Hx Arthritis Psychiatric Medical History: Reports: Hx Depression Past Surgical History: Reports: Hx Cholecystectomy - Gallbladder Sx, Hx Tonsillectomy, Hx Tubal Ligation - Immunizations Hx Diphtheria, Pertussis, Tetanus Vaccination: Yes Review of Systems - Review of Systems Notes: REVIEW OF SYSTEMS: CONSTITUTIONAL : Denies fever, Denies recent illness. Denies weight loss, recent hospitalizations. EENT: Denies visual changes, eye pain. Denies sore throat, oral lesions, difficulty swallowing. CARDIOVASCULAR: Denies chest pain. Denies palpitations. Denies lower extremity edema. RESPIRATORY: Denies cough. Denies shortness of breath, wheezing. GASTROINTESTINAL: Denies abdominal distention. Denies blood in vomitus, stools, or per rectum. Denies black, tarry stools. Denies constipation. GENITOURINARY: Denies difficulty urinating, painful urination, frequency, blood in urine, or vaginal discharge. MUSCULOSKELETAL: Denies back or neck pain or stiffness. Denies joint pain or swelling. SKIN: Denies rash, lesions or sores. HEMATOLOGIC : Denies easy bruising or bleeding. LYMPHATIC: Denies swollen glands. NEUROLOGICAL: Denies confusion or altered mental status. Denies loss of consciousness. Denies dizziness or lightheadedness. Denies headache. Denies weakness or paralysis. Denies problems difficulty with ambulation, slurred speech. Denies sensory loss, numbness, or tingling. Denies seizures. PSYCHIATRIC: Denies anxiety or stress. Denies depression, suicidal ideation, or homicidal ideation. Denies visual or auditory hallucinations. Physical Exam - Vital signs Vitals: Temp Pulse Resp BP Pulse Ox 97.9 F 87 18 209/99 H 94 12/17/17 17:57 12/17/17 17:57 10 17:57 12/17/17 17:57 12/17/17 17:57 Interpretation: Hypertensive. No: Hypoxic, Febrile - Notes Notes: PHYSICAL EXAMINATION: GENERAL: Well-appearing, well-nourished and in no acute distress. HEAD: Atraumatic, normocephalic. EYES: Pupils equal round and reactive to light, extraocular movements intact, conjunctiva are normal. ENT: Nares patent, oropharynx clear without exudates. Dry mucous membranes. NECK: Normal range of motion, supple without lymphadenopathy LUNGS: Breath sounds clear to auscultation bilaterally and equal. No wheezes rales or rhonchi. HEART: Regular rate and rhythm without murmurs ABDOMEN: Mild diffuse abdominal tenderness with palpation no guarding, no rebound. No masses appreciated. Female : deferred Musculoskeletal: Normal range of motion, no pitting or edema. No cyanosis. NEUROLOGICAL: Cranial nerves grossly intact. Normal speech, Normal sensory, motor exams PSYCH: Normal mood, normal affect. SKIN: Warm, Dry, normal turgor, no rashes or lesions noted. Course - Re-evaluation Re-evalutation: 12/18/17 02:35 Laboratory 12/17/17 12/17/17 12/17/17 18:40 18:40 20:04 WBC 9.1 RBC 3.64 L Hgb 11.4 L Hct 33.0 L MCV 91 MCH 31.3 MCHC 34.5 RDW 15.9 H Plt Count 346 Seg Neutrophils % 60.3 Lymphocytes % 31.6 Monocytes % 6.9 Eosinophils % 0.5 Basophils % 0.7 Absolute Neutrophils 5.5 Absolute Lymphocytes 2.9 Absolute Monocytes 0.6 Absolute Eosinophils 0.0 Absolute Basophils 0.1 VBG pH 7.42 VBG pCO2 49.3 VBG HCO3 31.4 VBG Base Excess 6.3 Sodium 139.4 Potassium 3.2 L Chloride 100 Carbon Dioxide 31 H Anion Gap 8 BUN 23 H Creatinine 1.22 Est GFR ( Amer) 54 L Est GFR (Non-Af Amer) 44 L Glucose 207 H Calcium 9.4 Total Bilirubin 1.3 Direct Bilirubin 0.3 Neonat Total Bilirubin Not Reportable Neonat Direct Bilirubin Not Reportable Neonat Indirect Bili Not Reportable AST 18 ALT 13 Alkaline Phosphatase 109 Total Protein 7.1 Albumin 3.7 Lipase 31.0 Urine Color Urine Appearance Urine pH Ur Specific [place] Urine Protein Urine Glucose (UA) Urine Ketones Urine Blood Urine Nitrite Urine Bilirubin Urine Urobilinogen Ur Leukocyte Esterase Urine WBC (Auto) Urine RBC (Auto) Urine Bacteria (Auto) Squamous Epi Cells Auto Urine Mucus (Auto) Urine Ascorbic Acid 12/17/17 23:12 WBC RBC Hgb Hct MCV MCH MCHC RDW Plt Count Seg Neutrophils % Lymphocytes % Monocytes % Eosinophils % Basophils % Absolute Neutrophils Absolute Lymphocytes Absolute Monocytes Absolute Eosinophils Absolute Basophils VBG pH VBG pCO2 VBG HCO3 VBG Base Excess Sodium Potassium Chloride Carbon Dioxide Anion Gap BUN Creatinine Est GFR ( Amer) Est GFR (Non-Af Amer) Glucose Calcium Total Bilirubin Direct Bilirubin Neonat Total Bilirubin Neonat Direct Bilirubin Neonat Indirect Bili AST ALT Alkaline Phosphatase Total Protein Albumin Lipase Urine Color YELLOW Urine Appearance SLIGHTLY-CLOUDY Urine pH 5.0 Ur Specific [place] 1.055 Urine Protein >=500 H Urine Glucose (UA) 50 H Urine Ketones NEGATIVE Urine Blood SMALL H Urine Nitrite POSITIVE H Urine Bilirubin NEGATIVE Urine Urobilinogen NEGATIVE Ur Leukocyte Esterase NEGATIVE Urine WBC (Auto) 16 Urine RBC (Auto) 15 Urine Bacteria (Auto) 1+ Squamous Epi Cells Auto <1 Urine Mucus (Auto) RARE Urine Ascorbic Acid NEGATIVE Acute Abdomen Series 12/17/17 18:25 IMPRESSION: Borderline heart size. Unremarkable abdomen. Abdomen/Pelvis CT 12/17/17 19:49 IMPRESSION: There is a ventral hernia containing only fat. There is a small bubble of air in the bladder. Has the patient recently been catheterized? 12/18/17 02:37 62-year-old female presents with complaint of nausea, vomiting, diarrhea and abdominal pain that has been ongoing for 1 week. Patient reports 1-2 episodes of vomiting and diarrhea. Upon arrival vitals are reviewed and patient is afebrile, normotensive and not hypoxic. Patient does not appear toxic but she does appear mildly dehydrated. Exam is significant for multiple diffuse abdominal pain without guarding or rebound. Patient did receive IV fluids, Zofran, morphine and on her ED course. CBC is without leukocytosis or significant anemia. CMP does show hyperglycemia without evidence of DKA. Potassium is 3.2. Oral supplementation provided. urinalysis is positive for nitrites and WBCs. CT of the abdomen and pelvis showed no evidence of abdominal aortic aneurysm, pancreatitis, bowel obstruction. Gallbladder is absent. There was a fat-containing ventral hernia and a small bubble of air in the bladder likely secondary to patient being catheterized. On reevaluation patient reports improvement of her pain and nausea. She will be discharged home with Keflex, Zofran. Patient has remained stable throughout her ED course. She has had no episodes of vomiting or diarrhea. Patient tolerating fluids. Patient was evaluated and treated as appropriate for the patient's presenting symptoms and complaint, with consideration of any critical or life threatening conditions that may be associated with their obtained history and exam as noted above. All results were discussed with patient . Patient provided the opportunity to ask questions, and express concerns. Patient was educated on treatments based on their presumed diagnosis as noted above. At this time we will discharge the patient with return precautions and follow-up recommendations. Verbal discharge instructions given a the bedside. Medication warnings reviewed. Patient is in agreement with this plan and has verbalized understanding of return precautions. After careful consideration I feel that that patient can be safely discharged from the emergency department, they were advised to followup with a primary care physician in 2-3 days. Dictation on this chart was performed using voice recognition software and may result in unintended grammatical, spelling, syntax or errors. 12/18/17 02:41 - Vital Signs Vital signs: Temp Pulse Resp BP Pulse Ox 98 F 71 20 140/72 H 98 12/18/17 00:32 12/18/17 00:32 12/18/17 00:32 12/18/17 00:32 12/18/17 00:32 - Laboratory Result Diagrams: 12/17/17 18:40 12/17/17 18:40 Laboratory results interpreted by me: 12/17/17 12/17/17 12/17/17 18:40 18:40 23:12 RBC 3.64 L Hgb 11.4 L Hct 33.0 L RDW 15.9 H Potassium 3.2 L Carbon Dioxide 31 H BUN 23 H Est GFR ( Amer) 54 L Est GFR (Non-Af Amer) 44 L Glucose 207 H Urine Protein >=500 H Urine Glucose (UA) 50 H Urine Blood SMALL H Urine Nitrite POSITIVE H - Diagnostic Test Radiology reviewed: Image reviewed, Reports reviewed Discharge - Discharge Clinical Impression: Nausea vomiting and diarrhea, Hypokalemia Abdominal pain Qualifiers: Abdominal location: generalized Qualified Code(s): R10.84 - Generalized abdominal pain Urinary tract infection Qualifiers: Urinary tract infection type: site unspecified Hematuria presence: without hematuria Qualified Code(s): N39.0 - Urinary tract infection, site not specified Hypertension Qualifiers: Hypertension type: unspecified Qualified Code(s): I10 - Essential (primary) hypertension Condition: Good Disposition: HOME, SELF-CARE Instructions: Abdominal Pain ([facility]), Antinausea Medication ([facility]), Diarrhea, Nonspecific ([facility]), Hypokalemia ([facility]), Intravenous (IV) Fluids ([facility]), Urinary Tract Infection ([facility]), Vomiting ([facility]) Additional Instructions: Your urine shows findings consistent with a urinary tract infection. Please take all the antibiotics as directed even if your symptoms have improved. Please follow-up with your primary care physician as needed. Return to emergency room if you develop fever >101F, persistent vomiting, become lethargic , have severe pain in your sides, or any other symptoms that are concerning to you. You have been seen in the Emergency Department (ED) for abdominal pain. Your evaluation did not identify a clear cause of your symptoms but was generally reassuring. Please follow up with your doctor as soon as possible regarding today's emergent visit and the symptoms that are bothering you. Return to the ED if your abdominal pain worsens or fails to improve, you develop bloody vomiting, bloody diarrhea, you are unable to tolerate fluids due to vomiting, fever greater than 101, or other symptoms that concern you. Recommendations: Take medicine as prescribed for nausea and vomiting. Drink small amounts of fluid often, advance diet slowly. Return to the emergency room for worsening vomiting, inability to tolerate fluids, feeling faint, or concerns it or getting worse. Follow-up with your physician within the next two days. If you are unable to get inn to see your physician, return to the ER for evaulation. Follow up with your [id number] hours for further care or return to the ED IMMEDIATELY if symptoms worsen or you have any concerns. If you cannot afford to follow up with your primary care physician a list of low cost clinics have been provided at the end of your discharge papers as well. Most prescribed medications have multiple side effects. The safest thing to do is when filling your prescription speak to your pharmacist regarding possible interactions with your normal home medications and over the counter medications such as Ibuprofen, Tylenol, Benadryl. If you experience any symptoms that cause you discomfort or concern you should discontinue the medication immediately and return to the emergency room or call your primary care physician. Prescriptions: Cephalexin Monohydrate [Keflex 500 mg Capsule] 500 mg PO BID 5 Days #14 capsule Ondansetron [Zofran Odt 4 mg Tablet] 1 tab PO Q4H PRN #15 tab.rapdis PRN Reason: For Nausea/Vomiting Forms: Elevated Blood Pressure Referrals: NESS MITCHELL MD [COMMUNITY BASED STAFF] - Follow up as needed
--- NOTE | 2017-12-17 21:01 | RADIOLOGY REPORT (SQ) ---
EXAM DESCRIPTION: CT ABD/PELVIS WITH IV ONLY COMPLETED DATE/TIME: 12/17/2017 8:44 pm REASON FOR STUDY: Right lower quadrant abdominal pain COMPARISON: None. TECHNIQUE: CT scan of the abdomen and pelvis performed using helical scanning technique with dynamic intravenous contrast injection. No oral contrast. Images reviewed with lung, soft tissue, and bone windows. Reconstructed coronal and sagittal MPR images reviewed. Delayed images for evaluation of the urinary system also acquired. All images stored on PACS. All CT scanners at this facility use dose modulation, iterative reconstruction, and/or weight based d osing when appropriate to reduce radiation dose to as low as reasonably achievable (ALARA). [facility]: Dose Right [facility]: CareDose [facility]: Dose Right [facility]: Teradose 4D [facility]: Xsilon CONTRAST TYPE AND DOSE: contrast/concentration: Isovue 350.00 mg/ml; Total Contrast Delivered: 100.0 ml; Total Saline Delivered: 41.0 ml RENAL FUNCTION: BUN 23 creatinine 1.2 RADIATION DOSE: CT Rad equipment meets quality standard of care and radiation dose reduction techniq ues were employed. CTDIvol: 21.1 - 21.1 mGy. DLP: 2393 mGy-cm.. LIMITATIONS: None. FINDINGS: LOWER CHEST: Small pericardial effusion. LIVER: Normal size. No masses. No dilated ducts. SPLEEN: Normal size. No focal lesions. PANCREAS: No masses. No significant calcifications. No adjacent inflammation or peripancreatic fluid collections. Pancreatic duct not dilated. GALLBLADDER: Surgically absent. ADRENAL GLANDS: No significant masses or asymmetry. RIGHT KIDNEY AND URETER: No solid masses. No significant calcifications. No hydronephrosis or hyd roureter. LEFT KIDNEY AND URETER: No solid masses. No significant calcifications. No hydronephrosis or hydr oureter. AORTA AND VESSELS: No aneurysm. No dissection. Renal arteries, SMA, celiac without stenosis. RETROPERITONEUM: No retroperitoneal adenopathy, hemorrhage or masses. BOWEL AND PERITONEAL CAVITY: No masses or inflammatory changes. No free fluid or peritoneal masses. APPENDIX: Normal. PELVIS: No mass. There is a small bubble of air in the bladder. ABDOMINAL WALL: There is a ventral hernia containing only fat. This is seen best on image 59 series 602 and image 22 series 601. BONES: No significant or acute findings. OTHER: No other significant finding. IMPRESSION: There is a ventral hernia containing only fat. There is a small bubble of air in the bl adder. Has the patient recently been catheterized? TECHNICAL DOCUMENTATION: JOB ID: [id number] Quality ID # [id number]: Final reports with documentation of one or more dose reduction techniques (e.g., Au tomated exposure control, adjustment of the mA and/or kV according to patient size, use of iterative reconstruction technique) 2010 [employer]- All Rights Reserved Reading location - IP/workstation name: [email or web address]
[2017-12-17] MEDS ORDERED: METOCLOPRAMIDE HCL INJ/PF 10 MG/2 ML SDV IV ONE (22:23)
[2017-12-17] MEDS ORDERED: MORPHINE SULFATE 10 MG/ML INJ IV ONE (22:23)
[2017-12-17 23:36] LABS: APPEARANCE,URINE SLIGHTLY-CLOUDY; BILIRUBIN,URINE NEGATIVE (NEGATIVE); COLOR,URINE YELLOW; GLUCOSE, URINE 50 mg/dL (NEGATIVE); KETONES,URINE NEGATIVE (NEGATIVE); LEUKOCYTE ESTERASE,URINE NEGATIVE (NEGATIVE); NITRITE,URINE POSITIVE (NEGATIVE); PROTEIN,URINE >=500 mg/dL (NEGATIVE); URINE SPECIFIC GRAVITY 1.055; UROBILINOGEN,URINE NEGATIVE mg/dL (<2.0)
[2017-12-17] MEDS ORDERED: CEPHALEXIN 500 MG CAPSULE PO ONE (23:49)
[2017-12-17] MEDS ORDERED: POTASSIUM CHLORIDE 20 MEQ/15 ML UDCUP PO ONE (23:54)
[2017-12-18 00:33] VITALS: BP 140/72
== END 2017-12-18 00:41 | disposition home or self-care (01) ==
LOC: ER 17:51
DX: N39.0 Urinary tract infection, site not specified (principal); R11.2 Nausea with vomiting, unspecified; E87.6 Hypokalemia; R19.7 Diarrhea, unspecified; R10.84 Generalized abdominal pain; I10 Essential (primary) hypertension; E78.5 Hyperlipidemia, unspecified; E11.9 Type 2 diabetes mellitus without complications
CPT/HCPCS: 99284; 96361; 51701; 96374; 96375; 36415; 87086; 83690; 85025; 87088; 80053; 81001; 87186; 82803; 74022; 74177; J2765; J2270; J3490; J2405; J7030

== ENCOUNTER 2017-12-21 19:54 | Inpatient (IN) | payer MEDICAID ==
--- NOTE | 2017-12-21 20:17 | ER Document Report ---
ED Medical Screen (RME) - General Chief Complaint: Other Stated Complaint: ABDOMINAL PAINS, DIARRHEA, RE EVAL Time Seen by Provider: 12/21/17 20:13 Notes: Patient is a 62-year-old female that presents to the emergency department for chief complaint of bilateral flank pain, nausea. Patient was recently seen diagnosed with urinary tract infection, had her culture come back as growing ESBL, she was called and advised to come back to the emergency department she was not feeling well. Patient reports she still having bilateral flank pain, and nausea so she decided come back to the emergency department ROS: Unless otherwise stated in this report the patient's positive and negative responses for review of systems for constitutional, eyes, ENT, cardiovascular, respiratory, gastrointestinal, neurological, genitourinary, musculoskeletal, and integumentary systems and related systems to the presenting problem are either as stated in the HPI or were not pertinent or were negative for the symptoms and/or complaints related to the presenting medical problem. PHYSICAL EXAMINATION: Vital signs reviewed. GENERAL: Well-appearing, well-nourished and in no acute distress. HEAD: Atraumatic, normocephalic. EYES: Pupils equal round extraocular movements intact, conjunctiva are normal. ENT: Nares patent NECK: Normal range of motion CV: Heart regular rate and rhythm LUNGS: No respiratory distress Abdomen: Obese, mild bilateral CVA tenderness Musculoskeletal: Normal range of motion NEUROLOGICAL: Normal speech PSYCH: Normal mood, normal affect. MDM: Patient seen and examined for rapid initial assessment. Vital signs reviewed. A comprehensive ED assessment and evaluation of the patient, analysis of test results and completion of the medical decision making process will be conducted by additional ED providers. *Note is created using voice recognition software and may contain spelling, syntax or grammatical errors. TRAVEL OUTSIDE OF THE [place] IN LAST 30 DAYS: No - Related Data Allergies/Adverse Reactions: No Known Allergies Allergy (Verified 12/21/17 19:57) Past Medical History - Past Medical History Cardiac Medical History: Reports: Hx Coronary Artery Disease - high chol, Hx Hypercholesterolemia, Hx Hypertension Denies: Hx Heart Attack Pulmonary Medical History: Denies: Hx Asthma, Hx Bronchitis, Hx COPD, Hx Pneumonia Neurological Medical History: Denies: Hx Cerebrovascular Accident, Hx Seizures Endocrine Medical History: Reports: Hx Diabetes Mellitus Type 2 Renal/ Medical History: Denies: Hx Peritoneal Dialysis Musculoskeltal Medical History: Reports Hx Arthritis Psychiatric Medical History: Reports: Hx Depression Past Surgical History: Reports: Hx Cholecystectomy - Gallbladder Sx, Hx Tonsillectomy, Hx Tubal Ligation - Immunizations Hx Diphtheria, Pertussis, Tetanus Vaccination: Yes History of Influenza Vaccine for 11/2016 - 04/2017 Season: Yes Influenza Administration Date for 11/2016 - 04/2017 Season: 12/01/16 Physical Exam - Vital signs Vitals: Temp Pulse Resp BP Pulse Ox 98.4 F 80 18 201/90 H 96 12/21/17 20:03 12/21/17 20:03 12/21/17 20:03 12/21/17 20:03 12/21/17 20:03 Course - Vital Signs Vital signs: Temp Pulse Resp BP Pulse Ox 98.4 F 80 18 201/90 H 96 12/21/17 20:03 12/21/17 20:03 12/21/17 20:03 12/21/17 20:03 12/21/17 20:03 Doctor's Discharge - Discharge Referrals: EVONNE ROSA FNP-C [Primary Care Provider] - Follow up as needed
[2017-12-21] MEDS ORDERED: MEROPENEM 1 GM VIAL IV ONE (20:18)
[2017-12-21] MEDS ORDERED: ONDANSETRON HCL INJ/PF 4 MG/2 ML SDV IV ONE (20:19)
[2017-12-21 20:50] LABS: APPEARANCE,URINE CLOUDY; BILIRUBIN,URINE NEGATIVE (NEGATIVE); COLOR,URINE YELLOW; GLUCOSE, URINE >=500 mg/dL (NEGATIVE); KETONES,URINE NEGATIVE (NEGATIVE); LEUKOCYTE ESTERASE,URINE MODERATE (NEGATIVE); NITRITE,URINE NEGATIVE (NEGATIVE); PROTEIN,URINE >=500 mg/dL (NEGATIVE); URINE SPECIFIC GRAVITY 1.022; UROBILINOGEN,URINE NEGATIVE mg/dL (<2.0)
[2017-12-21 20:56] LABS: ABSOLUTE BASOPHILS # (AUTO) 0.1 10^3/uL (0.0-0.2); ABSOLUTE EOSINOPHILS # (AUTO) 0.1 10^3/uL (0.0-0.6); BASOPHILS % (AUTO) 1.1 % (0-2); EOSINOPHILS % (AUTO) 1.5 % (0-6); HEMATOCRIT 31.9 % (36.0-47.0); HEMOGLOBIN 11.3 g/dL (12.0-15.5); LYMPHOCYTES % (AUTO) 32.3 % (13-45); MEAN CORPUSCULAR HGB CONC 35.3 g/dL (32.0-36.0); MEAN CORPUSCULAR VOLUME 91 fl (80-97); MONOCYTES % (AUTO) 10.9 % (3-13); PLATELET COUNT 393 10^3/uL (150-450); RED BLOOD COUNT 3.51 10^6/uL (3.72-5.28); RED CELL DISTRIBUTION WIDTH 15.5 % (11.5-14.0); SEGMENTED NEUTROPHILS % (AUTO) 54.2 % (42-78); TOTAL CELLS COUNTED % (AUTO) 100 %; WHITE BLOOD COUNT 9.3 10^3/uL (4.0-10.5)
[2017-12-21 21:13] LABS: ALANINE AMINOTRANSFERASE 10 U/L (9-52); ALBUMIN 3.9 g/dL (3.5-5.0); ALKALINE PHOSPHATASE 152 U/L (38-126); ANION GAP 8 (5-19); ASPARTATE AMINO TRANSFERASE 26 U/L (14-36); BILIRUBIN,DIRECT 0.2 mg/dL (0.0-0.4); BILIRUBIN,TOTAL 0.9 mg/dL (0.2-1.3); BLOOD UREA NITROGEN 17 mg/dL (7-20); CALCIUM 9.1 mg/dL (8.4-10.2); CARBON DIOXIDE 32 mmol/L (22-30); CHLORIDE 97 mmol/L (98-107); GLUCOSE 321 mg/dL (75-110); LIPASE 61.9 U/L (23-300); POTASSIUM 3.6 mmol/L (3.6-5.0); SODIUM 136.9 mmol/L (137-145); TOTAL PROTEIN 7.8 g/dL (6.3-8.2)
[2017-12-21] MEDS ORDERED: MORPHINE SULFATE 10 MG/ML INJ IV ONE (21:32)
[2017-12-21] MEDS: NORMAL SALINE 1000 ML 1,000 ML IV PRN ×2 (21:44→23:30)
--- NOTE | 2017-12-21 23:14 | ER Document Report ---
ED General - General Chief Complaint: Other Stated Complaint: ABDOMINAL PAINS, DIARRHEA, Time Seen by Provider: 12/21/17 20:13 TRAVEL OUTSIDE OF THE [place] IN LAST 30 DAYS: No - HPI Patient complains to provider of: abdominal pain Onset: Other - 62-year-old female who he presents for abdominal pain in the setting of having a previously diagnosed urinary tract infection that subsequently grew out extended spectrum beta-lactamase E. coli. She is continued to have pain with some nausea in her abdomen there since. Denies fevers or chills does endorse dysuria does endorse abdominal pain was taking her medication when discharged but is not gotten any better in the 2 days since. - Related Data Allergies/Adverse Reactions: No Known Allergies Allergy (Verified 12/21/17 19:57) Past Medical History - General Information source: Patient - Social History Smoking Status: Never Smoker Chew tobacco use (# tins/day): No Frequency of alcohol use: None Drug Abuse: None Family History: Reviewed & Not Pertinent Patient has suicidal ideation: No Patient has homicidal ideation: No - Past Medical History Cardiac Medical History: Reports: Hx Coronary Artery Disease - high chol, Hx Hypercholesterolemia, Hx Hypertension Denies: Hx Heart Attack Pulmonary Medical History: Denies: Hx Asthma, Hx Bronchitis, Hx COPD, Hx Pneumonia Neurological Medical History: Denies: Hx Cerebrovascular Accident, Hx Seizures Endocrine Medical History: Reports: Hx Diabetes Mellitus Type 2 Renal/ Medical History: Denies: Hx Peritoneal Dialysis Musculoskeletal Medical History: Reports Hx Arthritis Psychiatric Medical History: Reports: Hx Depression Past Surgical History: Reports: Hx Cholecystectomy - Gallbladder Sx, Hx Tonsillectomy, Hx Tubal Ligation - Immunizations Hx Diphtheria, Pertussis, Tetanus Vaccination: Yes Review of Systems - Review of Systems -: Yes All other systems reviewed and negative Physical Exam - Vital signs Vitals: Temp Pulse Resp BP Pulse Ox 98.4 F 80 18 201/90 H 96 12/21/17 20:03 12/21/17 20:03 12/21/17 20:03 12/21/17 20:03 12/21/17 20:03 - General General appearance: Appears well, Alert In distress: None - HEENT Head: Normocephalic Eyes: Normal Conjunctiva: Normal Cornea: Normal Extraocular movements intact: Yes Eyelashes: Normal Pupils: PERRL - Respiratory Respiratory status: No respiratory distress Chest status: Nontender Breath sounds: Normal Chest palpation: Normal - Cardiovascular Rhythm: Regular Heart sounds: Normal auscultation Murmur: No - Abdominal Inspection: Normal Bowel sounds: Normal Tenderness: Tender - Diffuse tenderness with no focal rebound or guarding - Back Back: Normal - Extremities General upper extremity: Normal inspection, Nontender, Normal strength, Normal temperature General lower extremity: Normal inspection, Nontender, Normal strength, Normal temperature - Neurological Neuro grossly intact: Yes Cognition: Normal Orientation: AAOx4 Duong Coma Scale Eye Opening: Spontaneous [place] Coma Scale Verbal: Oriented [place] Coma Scale Motor: Obeys Commands [place] Coma Scale Total: 15 Speech: Normal Cranial nerves: Normal Motor strength normal: LUE, RUE, LLE, RLE - Psychological Associated symptoms: Normal affect Course - Re-evaluation Re-evalutation: 12/23/17 02:38 62-year-old female with extended spectrum beta-lactamase producing E. coli urinary tract infection. Received Merrem through triage. Lactate is a 3. Patient is otherwise hemodynamically stable will administer analgesia for her abdominal pain in emergency department. Have contacted the hospitalist based on the sensitivities in this patient likely have pyelonephritis she is not eligible for another oral antibiotic at this time that is obviously ready, the only oral obviously available is nitrofurantoin which is contraindicated for pyelonephritis as well as people with renal insufficiency. Believe she would benefit from administration of IV and setting, have contacted the hospitalist for admission of this patient. We will continue to monitor reassess as necessary in emergency department. - Vital Signs Vital signs: Temp Pulse Resp BP Pulse Ox 98.6 F 81 15 171/80 H 96 12/22/17 23:36 12/22/17 23:36 12/23/17 00:14 12/22/17 23:36 12/23/17 00:14 - Laboratory Result Diagrams: 12/22/17 06:38 12/22/17 06:38 Laboratory results interpreted by me: 12/21/17 12/21/17 12/21/17 20:25 20:43 20:43 RBC 3.51 L Hgb 11.3 L Hct 31.9 L RDW 15.5 H Sodium 136.9 L Chloride 97 L Carbon Dioxide 32 H Est GFR ( Amer) 58 L Est GFR (Non-Af Amer) 48 L Glucose 321 H Lactic Acid Alkaline Phosphatase 152 H Urine Protein >=500 H Urine Glucose (UA) >=500 H Ur Leukocyte Esterase MODERATE H 12/21/17 20:43 RBC Hgb Hct RDW Sodium Chloride Carbon Dioxide Est GFR ( Amer) Est GFR (Non-Af Amer) Glucose Lactic Acid 3.0 H Alkaline Phosphatase Urine Protein Urine Glucose (UA) Ur Leukocyte Esterase Discharge - Discharge Clinical Impression: Urinary tract infection Qualifiers: Urinary tract infection type: site unspecified Hematuria presence: without hematuria Qualified Code(s): N39.0 - Urinary tract infection, site not specified Condition: Stable Disposition: ADMITTED INPATIENT Admitting Provider: Hospitalist
[2017-12-21] MEDS ORDERED: HYDROMORPHONE HCL INJ/PF 2 MG/ML AMPULE IV ONE (23:42)
[2017-12-22] MEDS ORDERED: HYDRALAZINE HCL INJ/PF 20 MG/1 ML SDV IV ONE
[2017-12-22] MEDS ORDERED: ACETAMINOPHEN 325 MG TABLET PO PRN (00:49)
[2017-12-22] MEDS ORDERED: PROMETHAZINE HCL 25 MG SUPP.RECT PR PRN (00:49)
[2017-12-22] MEDS ORDERED: MAG HYDROX/AL HYDROX/SIMETH SUSP 30 ML UDCUP PO PRN (00:49)
[2017-12-22] MEDS ORDERED: OXYCODONE-ACETAMINOPHEN 5-325 MG TABLET PO PRN (00:49)
[2017-12-22] MEDS ORDERED: PROMETHAZINE HCL INJ 25 MG/1 ML VIAL IV PRN (00:49)
[2017-12-22] MEDS ORDERED: MORPHINE SULFATE 10 MG/ML INJ IV PRN (01:04)
--- NOTE | 2017-12-22 01:25 | PDOC H&P ---
History of Present Illness Admission Date/PCP: 12/22/2017 COLT LYNN Patient complains of: Has been called for abnormal urine culture History of Present Illness: FINA HERNÁNDEZ is a 62 year old female who comes to the emergency department called by a nurse here for abnormal urine culture. Patient has been in our emergency department on 12/17 as she started with nausea and persistent vomiting of yellowish secretions, nonbloody diarrhea, associated with night sweating, dry mouth, bilateral flank pain stabbing in nature, urinary frequency , subjective fever with chills. Denies shortness of breath, chest pain, abdominal pain, hematuria. On 12/17 patient was discharged to her house after urinalysis came back positive with cephalexin and Zofran that the patient has been taking every day as indicated. Today she was called because the urine culture came back positive for ESBL E. coli resistant to cephalexin. In the ED given 1 dose of IV Invanz, unfortunately the only p.o. antibiotic that she could take his Macrodantin. Patient tells me that her symptoms has improved and are the same that 4 days ago. Past Medical History Cardiac Medical History: Reports: Coronary Artery Disease - high chol, Hyperlipidema, Hypertension Denies: Myocardial Infarction Pulmonary Medical History: Reports: Sleep Apnea Denies: Asthma, Bronchitis, Chronic Obstructive Pulmonary Disease (COPD), Pneumonia Neurological Medical History: Reports: Other - Vertigo Denies: Seizures Endocrine Medical History: Reports: Diabetes Mellitus Type 2 Renal/ Medical History: Reports: Chronic Kidney Disease Musculoskeltal Medical History: Reports: Arthritis Psychiatric Medical History: Reports: Depression, General Anxiety Disorder Hematology: Reports: Anemia Past Surgical History Past Surgical History: Reports: Cholecystectomy - Gallbladder Sx, Tonsillectomy , Tubal Ligation, Other - Carpal tunnel Social History Smoking Status: Never Smoker Frequency of Alcohol Use: None Hx Recreational Drug Use: No Hx Prescription Drug Abuse: No Past Social History Note: Her sister is at the bedside and tells me that she lives with her sister, daughter, son-in-law and her son. Family History Family History: Reviewed & Not Pertinent Family History: Mother 84 years old with history of CHF, father 82 years old of complications of diabetes mellitus. One brother with diabetes mellitus , sister with history of diabetes mellitus, brother with history of heart disease, son with history of a stroke Parental Family History Reviewed: Yes - As above Children Family History Reviewed: NA Sibling(s) Family History Reviewed.: NA Medication/Allergy Home Medications: Atorvastatin Calcium 80 mg PO DAILY 07/23/16 Cetirizine HCl [Zyrtec] 10 mg PO DAILY 07/23/16 Gabapentin 600 mg PO BID 07/23/16 Gemfibrozil 600 mg PO BID 07/23/16 Hydrochlorothiazide 12.5 mg PO DAILY 07/23/16 Insulin Aspart [Novolog Flexpen] 30 units SUBCUT TID 07/23/16 Insulin Glargine,Hum.rec.anlog [Lantus] 70 units SUBCUT BID 07/23/16 Metformin HCl [Glucophage] 1,000 mg PO BID 07/23/16 Pantoprazole Sodium [Protonix] 40 mg PO DAILY 07/23/16 Tramadol HCl [Ultram] 50 mg PO BID 07/23/16 Amlodipine Besylate 10 mg PO DAILY 04/17/17 Ergocalciferol (Vitamin D2) [Vitamin D2] 50,000 unit PO DAILY 04/17/17 Escitalopram Oxalate 10 mg PO DAILY 04/17/17 Iron 18 mg PO DAILY 04/17/17 Lisinopril 20 mg PO DAILY 04/17/17 Cephalexin Monohydrate [Keflex 500 mg Capsule] 500 mg PO BID 5 Days #14 capsule 12/17/17 Ondansetron [Zofran Odt 4 mg Tablet] 1 tab PO Q4H PRN #15 tab.rapdis 12/17/17 Allergies/Adverse Reactions: No Known Allergies Allergy (Verified 12/21/17 19:57) Review of Systems Review of Systems: As outlined in the HPI, all others negative Physical Exam Vital Signs: Temp Pulse Resp BP Pulse Ox 98.4 F 80 16 211/96 H 94 12/21/17 20:03 12/21/17 20:03 12/21/17 23:31 12/21/17 23:31 12/21/17 23:31 Intake & Output 12/20/17 12/21/17 12/22/17 06:59 06:59 06:59 Intake Total 1000 Balance 1000 Weight 124.5 kg Additional comments: General appearance: Morbid obese, alert and cooperative, and appears to be in no acute distress Head: Normocephalic Eyes: PEERL, EOMI, vision is grossly intact. Ears: External auditory canal and tympanic membranes clear, hearing grossly intact. Nose: No nasal discharge. Throat: Oral cavity and pharynx normal. No inflammation, swelling, exudate or lesions. Neck: Neck supple, nontender without lymphadenopathy, masses or thyromegaly. Cardiac: Normal S1 and S2. No S3, S4 or murmurs. Rhythm is regular. There is no peripheral edema, cyanosis or pallor. Extremities are warm and well perfused. Capillary refill is less than 2 seconds. No carotid bruits. Lungs: Distant breath sounds without rales, rhonchi, wheezing or diminished breath sounds. Not using accessory muscles. Abdomen: Positive bowel sounds. Soft. Very mild tenderness to palpation on left and right abdomen. No guarding or rebound. No masses. No hepatosplenomegaly Extremities: No significant deformity or joint abnormality. No edema. Peripheral pulses intact. No varicosities. Spine: Bilateral lumbar paraspinal tenderness which is old secondary to disc disease. Neurological: Cranial nerves II through XII grossly intact. Strength and sensation symmetric and intact throughout. Reflexes 2+ throughout. Skin: Skin normal color, texture and turgor with no lesions or eruptions, warm and dry. Psychiatric: The mental examination revealed the patient was oriented to person , place, and time. The patient was able to demonstrate good judgment on recent , without hallucinations, abnormal affect or abnormal behaviors. Results Laboratory Results: 12/21/17 20:43 12/21/17 20:43 12/21/17 12/21/17 12/21/17 20:25 20:43 20:43 WBC 9.3 RBC 3.51 L Hgb 11.3 L Hct 31.9 L MCV 91 MCH 32.0 MCHC 35.3 RDW 15.5 H Plt Count 393 Seg Neutrophils % 54.2 Lymphocytes % 32.3 Monocytes % 10.9 Eosinophils % 1.5 Basophils % 1.1 Absolute Neutrophils 5.0 Absolute Lymphocytes 3.0 Absolute Monocytes 1.0 Absolute Eosinophils 0.1 Absolute Basophils 0.1 Sodium 136.9 L Potassium 3.6 Chloride 97 L Carbon Dioxide 32 H Anion Gap 8 BUN 17 Creatinine 1.14 Est GFR ( Amer) 58 L Est GFR (Non-Af Amer) 48 L Glucose 321 H Lactic Acid Calcium 9.1 Total Bilirubin 0.9 AST 26 ALT 10 Alkaline Phosphatase 152 H Total Protein 7.8 Albumin 3.9 Lipase 61.9 Urine Color YELLOW Urine Appearance CLOUDY Urine pH 6.0 Ur Specific Wood[place] 1.022 Urine Protein >=500 H Urine Glucose (UA) >=500 H Urine Ketones NEGATIVE Urine Blood NEGATIVE Urine Nitrite NEGATIVE Ur Leukocyte Esterase MODERATE H Urine WBC (Auto) 6 Urine RBC (Auto) 7 12/21/17 20:43 WBC RBC Hgb Hct MCV MCH MCHC RDW Plt Count Seg Neutrophils % Lymphocytes % Monocytes % Eosinophils % Basophils % Absolute Neutrophils Absolute Lymphocytes Absolute Monocytes Absolute Eosinophils Absolute Basophils Sodium Potassium Chloride Carbon Dioxide Anion Gap BUN Creatinine Est GFR ( Amer) Est GFR (Non-Af Amer) Glucose Lactic Acid 3.0 H Calcium Total Bilirubin AST ALT Alkaline Phosphatase Total Protein Albumin Lipase Urine Color Urine Appearance Urine pH Ur Specific [place] Urine Protein Urine Glucose (UA) Urine Ketones Urine Blood Urine Nitrite Ur Leukocyte Esterase Urine WBC (Auto) Urine RBC (Auto) Assessment & Plan - Diagnosis (1) Urinary tract infection Qualifiers: Urinary tract infection type: site unspecified Hematuria presence: without hematuria Qualified Code(s): N39.0 - Urinary tract infection, site not specified Is this a current diagnosis for this admission?: Yes Plan: Patient comes as was call to her house because urine culture grew E. coli ESBL not a sensitive to cephalexin that she was sent home. Patient was initiated on IV ertapenem that I will continue in the hospital. IV fluids. We will repeat lactic acid that came back 3 (2) Hypertension Qualifiers: Hypertension type: unspecified Qualified Code(s): I10 - Essential (primary ) hypertension Is this a current diagnosis for this admission?: Yes Plan: Uncontrolled hypertension, in the emergency department , tells me that she took her blood pressure medications today. I will place IV Lopressor as needed and will resume her home antihypertensive. (3) CKD (chronic kidney disease), stage III Is this a current diagnosis for this admission?: Yes Plan: Stable (4) Diabetes mellitus type 2 in obese Is this a current diagnosis for this admission?: Yes Plan: Insulin-dependent diabetes mellitus, continue with Lantus 50 units twice daily plus NovoLog. Accu-Cheks q. before meals and at bedtime, insulin lispro sliding scale and hypoglycemia protocol. (5) NILO (obstructive sleep apnea) Is this a current diagnosis for this admission?: Yes Plan: Continue with CPAP (6) Coronary artery disease Qualifiers: Associated angina: with unspecified angina Is this a current diagnosis for this admission?: Yes Plan: Patient does not have any cardiology symptomatology, continue with home medications (7) Hypoxia Is this a current diagnosis for this admission?: Yes Plan: Thinners so in the monitor that the patient was saturating in the high 80s and decided to place her on oxygen via nasal cannula, the patient tells me that she was completely asymptomatic with no respiratory symptoms. I discontinue nasal cannula and she is saturating 97% on room air. - Time Time Spent: 50 to 70 Minutes - Inpatient Certification Based on my medical assessment, after consideration of the patient's comorbidities, presenting symptoms, or acuity I expect that the services needed warrant INPATIENT care.: Yes I certify that my determination is in accordance with my understanding of Medicare's requirements for reasonable and necessary INPATIENT services [42 CFR 412.3e].: Yes Medical Necessity: Risk of Complication if Not Cared For in Hospital
[2017-12-22] MEDS ORDERED: DEXTROSE 50%-WATER 25 GM/50 ML DISP.SYRIN IV PRN ×2 (03:42)
[2017-12-22] MEDS ORDERED: GLUCAGON,HUMAN RECOMB 1 MG INJ IM PRN (03:42)
[2017-12-22] MEDS ORDERED: DEXTROSE 40% GEL 15 GM TUBE PO PRN ×2 (03:42)
[2017-12-22] MEDS: METOPROLOL TARTRATE PF/INJ 5 MG/5 ML SDV IV PRN ×2 (03:45→12:50)
[2017-12-22 07:04] LABS: ABSOLUTE BASOPHILS # (AUTO) 0.1 10^3/uL (0.0-0.2); ABSOLUTE EOSINOPHILS # (AUTO) 0.2 10^3/uL (0.0-0.6); ABSOLUTE LYMPHOCYTES (AUTO) 2.2 10^3/uL (0.5-4.7); ABSOLUTE MONOCYTES (AUTO) 0.9 10^3/uL (0.1-1.4); ABSOLUTE NEUT (AUTO) 5.6 10^3/uL (1.7-8.2); BASOPHILS % (AUTO) 1.1 % (0-2); EOSINOPHILS % (AUTO) 1.7 % (0-6); HEMATOCRIT 26.2 % (36.0-47.0); HEMOGLOBIN 9.3 g/dL (12.0-15.5); LYMPHOCYTES % (AUTO) 24.2 % (13-45); MEAN CORPUSCULAR HEMOGLOBIN 31.7 pg (27.0-33.4); MEAN CORPUSCULAR HGB CONC 35.5 g/dL (32.0-36.0); MEAN CORPUSCULAR VOLUME 89 fl (80-97); MONOCYTES % (AUTO) 9.7 % (3-13); PLATELET COUNT 298 10^3/uL (150-450); RED BLOOD COUNT 2.94 10^6/uL (3.72-5.28); RED CELL DISTRIBUTION WIDTH 15.3 % (11.5-14.0); SEGMENTED NEUTROPHILS % (AUTO) 63.3 % (42-78); TOTAL CELLS COUNTED % (AUTO) 100 %; WHITE BLOOD COUNT 8.9 10^3/uL (4.0-10.5)
[2017-12-22 07:23] LABS: ANION GAP 7 (5-19); BLOOD UREA NITROGEN 16 mg/dL (7-20); CALCIUM 8.3 mg/dL (8.4-10.2); CARBON DIOXIDE 30 mmol/L (22-30); CHLORIDE 102 mmol/L (98-107); GLUCOSE 213 mg/dL (75-110); POTASSIUM 3.4 mmol/L (3.6-5.0); SODIUM 138.6 mmol/L (137-145)
--- NOTE | 2017-12-22 08:28 | EKG REPORT ---
SEVERITY:- ABNORMAL ECG - SINUS RHYTHM PROBABLE INFERIOR INFARCT, AGE INDETERMINATE CONSIDER ANTERIOR INFARCT BORDERLINE PROLONGED QT INTERVAL : Confirmed by: Sparkle Ingram 22-Dec-2017 08:27:54
[2017-12-22] MEDS: INSULIN LISPRO 100 UNIT/ML 3 ML VIAL SUBCUT PRN ×4 (08:40→21:38)
[2017-12-22] MEDS ORDERED: ERTAPENEM SODIUM INJ 1 GM VIAL IV SCH (10:00)
[2017-12-22] MEDS: ENOXAPARIN SODIUM INJ 40 MG/0.4 ML DISP.SYRIN SUBCUT SCH (10:04)
[2017-12-22] MEDS: MEROPENEM 1 GM in NORMAL SALINE 50 ML IV SCH ×2 (10:05→17:39)
[2017-12-22] MEDS ORDERED: TRAMADOL HCL 50 MG TABLET PO PRN (12:49)
[2017-12-22] MEDS ORDERED: MEROPENEM 1 GM in NORMAL SALINE 50 ML IV SCH (14:00)
--- NOTE | 2017-12-22 14:12 | PDOC PROGRESS REPORT ---
Subjective Progress Note for:: 12/22/17 Subjective:: The patient is a 62-year-old female with a past medical history of CAD, hyperlipidemia, hypertension, NILO (utilizes BiPAP), insulin-dependent diabetes mellitus, CKD, arthritis, depression, anxiety, and anemia who was admitted 12/22 for ESBL E. coli sensitive to IV antibiotics only. Patient was seen on morning rounds. She was found resting in bed comfortably on room air. She reports that she is feeling much better today; flank pain, abdominal pain, nausea and vomiting have all resolved. She reports feeling chilled, but denies fevers and malaise. Her only complaint at present is vaginal/labia pruritus without discharge. She has no other questions or concerns. No concerns per nursing. Reason For Visit: UTI Physical Exam Vital Signs: Temp Pulse Resp BP Pulse Ox 97.7 F 68 18 185/74 H 94 12/22/17 12:33 12/22/17 12:33 12/22/17 12:33 12/22/17 12:33 12/22/17 12:33 Intake & Output 12/21/17 12/22/17 12/23/17 06:59 06:59 06:59 Intake Total 50 Balance 50 General appearance: PRESENT: no acute distress, cooperative, morbidly obese, well-developed, well-nourished Head exam: PRESENT: atraumatic, normocephalic Eye exam: PRESENT: conjunctiva pink, EOMI, PERRLA. ABSENT: scleral icterus Ear exam: PRESENT: normal external ear exam Mouth exam: PRESENT: moist, tongue midline Neck exam: ABSENT: carotid bruit, JVD, lymphadenopathy, thyromegaly Respiratory exam: PRESENT: clear to auscultation vadim, decreased breath sounds - Bibasilar; secondary to body habitus and poor respiratory effort, symmetrical, unlabored. ABSENT: rales, rhonchi, wheezes Cardiovascular exam: PRESENT: RRR. ABSENT: diastolic murmur, rubs, systolic murmur Pulses: PRESENT: normal dorsalis pedis pul Vascular exam: PRESENT: normal capillary refill GI/Abdominal exam: PRESENT: normal bowel sounds, soft. ABSENT: distended, guarding, mass, organolmegaly, rebound, tenderness Rectal exam: PRESENT: deferred Extremities exam: PRESENT: full ROM. ABSENT: calf tenderness, clubbing, pedal edema Neurological exam: PRESENT: alert, awake, oriented to person, oriented to place , oriented to time, oriented to situation, CN II-XII grossly intact. ABSENT: motor sensory deficit Psychiatric exam: PRESENT: appropriate affect, normal mood. ABSENT: homicidal ideation, suicidal ideation Skin exam: PRESENT: dry, intact, warm. ABSENT: cyanosis, rash Results Laboratory Results: 12/22/17 06:38 12/22/17 06:38 12/22/17 12/22/17 06:38 06:38 WBC 8.9 RBC 2.94 L Hgb 9.3 L Hct 26.2 L MCV 89 MCH 31.7 MCHC 35.5 RDW 15.3 H Plt Count 298 Seg Neutrophils % 63.3 Lymphocytes % 24.2 Monocytes % 9.7 Eosinophils % 1.7 Basophils % 1.1 Absolute Neutrophils 5.6 Absolute Lymphocytes 2.2 Absolute Monocytes 0.9 Absolute Eosinophils 0.2 Absolute Basophils 0.1 Sodium 138.6 Potassium 3.4 L Chloride 102 Carbon Dioxide 30 Anion Gap 7 BUN 16 Creatinine 1.12 Est GFR ( Amer) 59 L Est GFR (Non-Af Amer) 49 L Glucose 213 H Calcium 8.3 L Assessment & Plan - Diagnosis (1) Urinary tract infection Qualifiers: Urinary tract infection type: site unspecified Hematuria presence: without hematuria Qualified Code(s): N39.0 - Urinary tract infection, site not specified Is this a current diagnosis for this admission?: Yes Plan: Patient was seen in the emergency department on 12/17/17 for UTI symptoms; discharged to home on cephalexin. She was notified that her urine culture from that visit grew ESBL E. coli and she was called back to the emergency department. Patient reports that her symptoms had not improved while on oral antibiotics. Repeat urinalysis positive for protein, glucose, leuk esterase. Repeat blood and urine cultures are pending. Lactic acidosis has resolved. The patient is admitted to the medical floor. She is placed on IV meropenem. (2) CKD (chronic kidney disease), stage III Is this a current diagnosis for this admission?: Yes Plan: Stable; at baseline. We will avoid nephrotoxic medications as able. Daily chemistries. (3) Coronary artery disease Qualifiers: Associated angina: with unspecified angina Is this a current diagnosis for this admission?: Yes Plan: Stable; no current chest pain symptoms. Continue daily aspirin and statin therapy. (4) Diabetes mellitus type 2 in obese Is this a current diagnosis for this admission?: Yes Plan: The patient is placed on a consistent carb diet. Continue her home dose Lantus. Accu-Cheks before meals and at bedtime with Humalog for sliding scale coverage. Dietary discretion is advised; registered dietitian has been consulted for diet and weight loss recommendations. (5) NILO (obstructive sleep apnea) Is this a current diagnosis for this admission?: Yes Plan: CPAP nightly. (6) Hypertension Qualifiers: Hypertension type: unspecified Qualified Code(s): I10 - Essential (primary ) hypertension Is this a current diagnosis for this admission?: Yes Plan: The patient's home medications are continued: Amlodipine 10 mg daily, lisinopril 20 mg daily, hydrochlorothiazide 12.5 mg daily. IV Lopressor as needed for blood pressure control. (7) Hyperlipidemia Is this a current diagnosis for this admission?: Yes Plan: Continue patient's home dose of Zetia and Lipitor. - Time Time Spent with patient: 15-24 minutes Medications reviewed and adjusted accordingly: Yes Anticipated discharge: Home
[2017-12-22] MEDS: EZETIMIBE 10 MG TABLET PO SCH (14:37)
[2017-12-22] MEDS: ESCITALOPRAM OXALATE 10 MG TABLET PO SCH (14:37)
[2017-12-22] MEDS: AMLODIPINE BESYLATE 10 MG TABLET PO SCH (14:37)
[2017-12-22] MEDS: HYDROCHLOROTHIAZIDE 12.5 MG TABLET PO SCH (14:40)
[2017-12-22] MEDS: FERROUS SULFATE 325 MG TABLET PO SCH (14:40)
[2017-12-22] MEDS: MICONAZOLE NITRATE 2% CREAM 15GM TP SCH ×2 (14:41→21:36)
[2017-12-22] MEDS: ATORVASTATIN CALCIUM 80 MG TABLET PO SCH (21:37)
[2017-12-22] MEDS: GABAPENTIN 300 MG CAPSULE PO SCH (21:37)
[2017-12-22] MEDS: INSULIN GLARGINE,HUM.REC.ANLOG 1,000 UNIT/10 ML UNIT SUBCUT SCH (21:38)
[2017-12-23] MEDS: MEROPENEM 1 GM in NORMAL SALINE 50 ML IV SCH ×3 (01:56→18:12)
[2017-12-23 05:20] LABS: ABSOLUTE BASOPHILS # (AUTO) 0.1 10^3/uL (0.0-0.2); ABSOLUTE EOSINOPHILS # (AUTO) 0.2 10^3/uL (0.0-0.6); ABSOLUTE LYMPHOCYTES (AUTO) 2.8 10^3/uL (0.5-4.7); ABSOLUTE MONOCYTES (AUTO) 0.8 10^3/uL (0.1-1.4); ABSOLUTE NEUT (AUTO) 3.6 10^3/uL (1.7-8.2); BASOPHILS % (AUTO) 0.9 % (0-2); EOSINOPHILS % (AUTO) 2.2 % (0-6); HEMATOCRIT 25.7 % (36.0-47.0); HEMOGLOBIN 9.2 g/dL (12.0-15.5); LYMPHOCYTES % (AUTO) 37.5 % (13-45); MEAN CORPUSCULAR HEMOGLOBIN 32.3 pg (27.0-33.4); MEAN CORPUSCULAR HGB CONC 35.9 g/dL (32.0-36.0); MEAN CORPUSCULAR VOLUME 90 fl (80-97); MONOCYTES % (AUTO) 10.7 % (3-13); PLATELET COUNT 284 10^3/uL (150-450); RED BLOOD COUNT 2.86 10^6/uL (3.72-5.28); RED CELL DISTRIBUTION WIDTH 15.4 % (11.5-14.0); SEGMENTED NEUTROPHILS % (AUTO) 48.7 % (42-78); TOTAL CELLS COUNTED % (AUTO) 100 %; WHITE BLOOD COUNT 7.4 10^3/uL (4.0-10.5)
[2017-12-23 05:34] LABS: INTERNATIONAL RATION (INR) 0.88; PROTHROMBIN TIME 12.4 SEC (11.4-15.4)
[2017-12-23 05:35] LABS: PARTIAL THROMBOPLASTIN TIME 29.7 SEC (23.5-35.8)
[2017-12-23 05:46] LABS: BLOOD UREA NITROGEN 17 mg/dL (7-20); CALCIUM 8.3 mg/dL (8.4-10.2); CHLORIDE 103 mmol/L (98-107); GLUCOSE 110 mg/dL (75-110); PHOSPHORUS 3.8 mg/dL (2.5-4.5); POTASSIUM 3.3 mmol/L (3.6-5.0)
[2017-12-23 05:51] LABS: CARBON DIOXIDE 34 mmol/L (22-30); SODIUM 140.4 mmol/L (137-145)
[2017-12-23 05:57] LABS: ANION GAP 3 (5-19)
[2017-12-23] MEDS: LANSOPRAZOLE 30 MG TAB.RAP.DR PO SCH (06:31)
[2017-12-23] MEDS: POTASSIUM CHLORIDE 10 MEQ CAPSULE.ER PO SCH ×2 (08:15→15:28)
[2017-12-23] MEDS: INSULIN GLARGINE,HUM.REC.ANLOG 1,000 UNIT/10 ML UNIT SUBCUT SCH ×2 (09:44→22:22)
[2017-12-23] MEDS: HYDROCHLOROTHIAZIDE 12.5 MG TABLET PO SCH (09:45)
[2017-12-23] MEDS: ENOXAPARIN SODIUM INJ 40 MG/0.4 ML DISP.SYRIN SUBCUT SCH (09:45)
[2017-12-23] MEDS: GABAPENTIN 300 MG CAPSULE PO SCH ×2 (09:45→22:22)
[2017-12-23] MEDS: EZETIMIBE 10 MG TABLET PO SCH (09:45)
[2017-12-23] MEDS: ASPIRIN 81 MG TABLET, ENT COATED PO SCH (09:45)
[2017-12-23] MEDS: ESCITALOPRAM OXALATE 10 MG TABLET PO SCH (09:46)
[2017-12-23] MEDS: FERROUS SULFATE 325 MG TABLET PO SCH (09:46)
[2017-12-23] MEDS: AMLODIPINE BESYLATE 10 MG TABLET PO SCH (09:46)
[2017-12-23] MEDS: MICONAZOLE NITRATE 2% CREAM 15GM TP SCH ×2 (09:48→22:22)
[2017-12-23] MEDS: LISINOPRIL 10 MG TABLET PO SCH (09:48)
[2017-12-23] MEDS: CETIRIZINE 10 MG TABLET PO SCH (09:48)
[2017-12-23] MEDS ORDERED: (PENDING PHARMACY ID) (Cetirizine Hcl [Zyrtec] 10 MG) PO SCH (10:00)
[2017-12-23] MEDS ORDERED: (PENDING PHARMACY ID) (Lisinopril [Lisinopril] 20 MG) PO SCH (10:00)
[2017-12-23] MEDS: NORMAL SALINE 1000 ML 1,000 ML IV PRN ×2 (13:07→20:44)
--- NOTE | 2017-12-23 17:35 | Progress Note ---
Provider Note Provider Note: ID Consult Note Asked to review patient's chart and provide input regarding antimicrobial therapy. Pt not seen or examined. Per H&P, Ms Ceron is a 62 year old woman with PMH including HLD, HTN, obesity and DM type II who presented on 12/17/17 to the [facility] ED with c/o nausea, vomiting, nonbloody diarrhea, associated night sweats and bilateral flank pain, urinary frequency and subjective fever and chills. U/A and UCx were sent. Pt was prescribed Keflex and Zofran. Pt was called back to the hospital on 12/21 after UCx culture result revealed growth of >100k cfu ESBL E coli, also resistant to fluoroquinolones and Bactrim, sensitive to Macrobid. On presentation back to the hospital, the patient empirically received a dose of meropenem in the ED and BCx were drawn (negative to date); U/A was repeated, which now only shows 6 WBC/hpf and UCx was repeated from a clean catch specimen that only has had growth of 5k cfu E coli that is mendez-susceptible. Impression/Recommendations If the patient's symptoms appear to be due to a UTI and include flank pain ( implying upper tract disease - pyelonephritis), then Macrobid would not be a good option, and she may need to continue treatment with IV ertapenem 1 g daily to complete the remainder of 10 days (8 more days). It is difficult to clearly account for the difference in the patient's urinary culture results following a single dose of meropenem in the ED, but if she appears to have a urinary tract infection, the most conservative course of action would be to continue treatment based on the original urine culture with > 100k cfu ESBL E coli obtained through I&O catheterization when the patient initially presented. Inder Luna MD [facility] Infectious Diseases pager [phone]
--- NOTE | 2017-12-23 17:47 | PDOC PROGRESS REPORT ---
Subjective Progress Note for:: 12/23/17 Subjective:: The patient is a 62-year-old female with a past medical history of CAD, hyperlipidemia, hypertension, NILO (utilizes BiPAP), insulin-dependent diabetes mellitus, CKD, arthritis, depression, anxiety, and anemia who was admitted 12/22 for ESBL E. coli sensitive to IV antibiotics only. Patient was seen early this afternoon on rounds. She was found sitting up to the edge of the n bed comfortably on room air eating her lunch. She reports continued improvement today. She reports minimal suprapubic abdominal discomfort and lower back pain (chronic). She states the fever/chills, malaise , right side flank pain, nausea and vomiting have all resolved. She has no new questions or concerns. No concerns per nursing. Reason For Visit: UTI Physical Exam Vital Signs: Temp Pulse Resp BP Pulse Ox 97.6 F 69 18 146/73 H 87 L 12/23/17 15:41 12/23/17 15:41 12/23/17 12:13 12/23/17 15:41 12/23/17 15:41 Intake & Output 12/22/17 12/23/17 12/24/17 06:59 06:59 06:59 Intake Total 870 575 Balance 870 575 General appearance: PRESENT: no acute distress, cooperative, disheveled, morbidly obese, well-developed, well-nourished Head exam: PRESENT: atraumatic, normocephalic Eye exam: PRESENT: conjunctiva pink, EOMI, PERRLA. ABSENT: scleral icterus Ear exam: PRESENT: normal external ear exam Mouth exam: PRESENT: moist, tongue midline Neck exam: ABSENT: carotid bruit, JVD, lymphadenopathy, thyromegaly Respiratory exam: PRESENT: clear to auscultation vadim, symmetrical, unlabored. ABSENT: rales, rhonchi, wheezes Cardiovascular exam: PRESENT: RRR, +S1, +S2. ABSENT: diastolic murmur, rubs, systolic murmur Pulses: PRESENT: normal dorsalis pedis pul Vascular exam: PRESENT: normal capillary refill GI/Abdominal exam: PRESENT: normal bowel sounds, soft, tenderness - mild suprapubic. ABSENT: distended, guarding, mass, organolmegaly, rebound Rectal exam: PRESENT: deferred Extremities exam: PRESENT: full ROM. ABSENT: calf tenderness, clubbing, pedal edema Neurological exam: PRESENT: alert, awake, oriented to person, oriented to place , oriented to time, oriented to situation, CN II-XII grossly intact. ABSENT: motor sensory deficit Psychiatric exam: PRESENT: appropriate affect, normal mood. ABSENT: homicidal ideation, suicidal ideation Skin exam: PRESENT: dry, intact, warm. ABSENT: cyanosis, rash Results Laboratory Results: 12/23/17 05:06 12/23/17 05:06 12/23/17 12/23/17 05:06 05:06 WBC 7.4 RBC 2.86 L Hgb 9.2 L Hct 25.7 L MCV 90 MCH 32.3 MCHC 35.9 RDW 15.4 H Plt Count 284 Seg Neutrophils % 48.7 Lymphocytes % 37.5 Monocytes % 10.7 Eosinophils % 2.2 Basophils % 0.9 Absolute Neutrophils 3.6 Absolute Lymphocytes 2.8 Absolute Monocytes 0.8 Absolute Eosinophils 0.2 Absolute Basophils 0.1 Sodium 140.4 Potassium 3.3 L Chloride 103 Carbon Dioxide 34 H Anion Gap 3 L BUN 17 Creatinine 1.36 H Est GFR ( Amer) 47 L Est GFR (Non-Af Amer) 39 L Glucose 110 Calcium 8.3 L Phosphorus 3.8 Magnesium 1.7 Assessment & Plan - Diagnosis (1) Urinary tract infection Qualifiers: Urinary tract infection type: site unspecified Hematuria presence: without hematuria Qualified Code(s): N39.0 - Urinary tract infection, site not specified Is this a current diagnosis for this admission?: Yes Plan: Patient was seen in the emergency department on 12/17/17 for UTI symptoms; discharged to home on cephalexin. She was notified that her urine culture from that visit grew ESBL E. coli and she was called back to the emergency department. Patient reports that her symptoms had not improved while on oral antibiotics. WBCs are normal. She remains afebrile. Repeat urinalysis positive for protein, glucose, leuk esterase. Repeat urine cultures is positive for pansensitive E. coli. Blood cultures are negative at 24 hours. Lactic acidosis has resolved. The patient is admitted to the medical floor. She was placed on IV meropenem based upon urine culture obtained during her ED visit on 12/17. Given the discrepancy between her initial urine culture with ESBL E. coli and multiple resistances and her urine culture with pansensitive E. coli from this admission (following only 1 dose of Meropenem) the microbiology lab was contacted. They are unable to provide insight into the disparity between the sensitivity results; low suspicion for mislabeled urine culture obtained as it was obtained via straight cath with supportive nursing documentation. As the patient did not appear acutely ill on her date of admission (normal WBCs , normal vital signs, nontoxic appearance; although with elevated lactic acid), I am concerned that meropenem may not be indicated given the follow up culture result. However, I am just as hesitant to discontinue following only 48 hours of appropriate therapy should the ESBL E. Coli be a legitimate micro result. Therefore; I have asked our pharmacy to reach out to Dr. Luna (Infectious Disease) for antibiotic therapy guidance. (2) CKD (chronic kidney disease), stage III Is this a current diagnosis for this admission?: Yes Plan: Creatinine is elevated today to 1.36 from a baseline of 1.10; although, BUN remains near baseline. Bump in creatinine is likely secondary to meropenem. Will provide gentle IV fluids today x2L. We will avoid nephrotoxic medications as able. Daily chemistries. (3) Coronary artery disease Qualifiers: Associated angina: with unspecified angina Is this a current diagnosis for this admission?: Yes Plan: Stable; no current chest pain symptoms. Continue daily aspirin and statin therapy. (4) Diabetes mellitus type 2 in obese Is this a current diagnosis for this admission?: Yes Plan: The patient is placed on a consistent carb diet. Continue her home dose Lantus. Accu-Cheks before meals and at bedtime with Humalog for sliding scale coverage. Dietary discretion is advised; registered dietitian has been consulted for diet and weight loss recommendations. (5) NILO (obstructive sleep apnea) Is this a current diagnosis for this admission?: Yes Plan: CPAP nightly. (6) Hypertension Qualifiers: Hypertension type: unspecified Qualified Code(s): I10 - Essential (primary ) hypertension Is this a current diagnosis for this admission?: Yes Plan: Blood pressure is slightly elevated today; consider need for dose adjustments versus addition of beta-carolee therapy. The patient's home medications are continued: Amlodipine 10 mg daily, lisinopril 20 mg daily, hydrochlorothiazide 12.5 mg daily. IV Lopressor as needed for blood pressure control. (7) Hyperlipidemia Is this a current diagnosis for this admission?: Yes Plan: Continue patient's home dose of Zetia and Lipitor. (8) Anemia, chronic disease Is this a current diagnosis for this admission?: Yes Plan: Anemia of chronic disease secondary to chronic kidney disease, diabetes mellitus , and morbid obesity. Hemoglobin has drifted down slightly from 11.3 to 9.2 secondary to IV fluids. No indications of active bleeding at this time. We will start multivitamin with iron. We will continue to monitor. - Time Time Spent with patient: 25-34 minutes Medications reviewed and adjusted accordingly: Yes Anticipated discharge: Home
[2017-12-23] MEDS: ATORVASTATIN CALCIUM 80 MG TABLET PO SCH (22:22)
[2017-12-24] MEDS: MEROPENEM 1 GM in NORMAL SALINE 50 ML IV SCH (02:07)
[2017-12-24] MEDS: LANSOPRAZOLE 30 MG TAB.RAP.DR PO SCH (05:43)
[2017-12-24 06:31] LABS: HEMOGLOBIN 9.8 g/dL (12.0-15.5); MEAN CORPUSCULAR HEMOGLOBIN 31.9 pg (27.0-33.4); MEAN CORPUSCULAR HGB CONC 35.1 g/dL (32.0-36.0); MEAN CORPUSCULAR VOLUME 91 fl (80-97); PLATELET COUNT 304 10^3/uL (150-450); RED BLOOD COUNT 3.08 10^6/uL (3.72-5.28); RED CELL DISTRIBUTION WIDTH 15.5 % (11.5-14.0); WHITE BLOOD COUNT 7.7 10^3/uL (4.0-10.5)
[2017-12-24 06:58] LABS: BLOOD UREA NITROGEN 18 mg/dL (7-20); CALCIUM 8.7 mg/dL (8.4-10.2); CARBON DIOXIDE 33 mmol/L (22-30); GLUCOSE 100 mg/dL (75-110); POTASSIUM 3.6 mmol/L (3.6-5.0)
[2017-12-24 07:03] LABS: CHLORIDE 105 mmol/L (98-107); SODIUM 139.4 mmol/L (137-145)
[2017-12-24 07:04] LABS: ANION GAP 1 (5-19)
[2017-12-24] MEDS: ERTAPENEM SODIUM 1 GM in NORMAL SALINE 50 ML IV SCH (09:41)
[2017-12-24] MEDS: ENOXAPARIN SODIUM INJ 40 MG/0.4 ML DISP.SYRIN SUBCUT SCH (09:45)
[2017-12-24] MEDS: GABAPENTIN 300 MG CAPSULE PO SCH ×2 (09:46→22:29)
[2017-12-24] MEDS: ESCITALOPRAM OXALATE 10 MG TABLET PO SCH (09:47)
[2017-12-24] MEDS: LISINOPRIL 10 MG TABLET PO SCH (09:48)
[2017-12-24] MEDS: CETIRIZINE 10 MG TABLET PO SCH (09:50)
[2017-12-24] MEDS: AMLODIPINE BESYLATE 10 MG TABLET PO SCH (09:50)
[2017-12-24] MEDS: FERROUS SULFATE 325 MG TABLET PO SCH (09:51)
[2017-12-24] MEDS: HYDROCHLOROTHIAZIDE 12.5 MG TABLET PO SCH (09:53)
[2017-12-24] MEDS: ASPIRIN 81 MG TABLET, ENT COATED PO SCH (09:54)
[2017-12-24] MEDS: EZETIMIBE 10 MG TABLET PO SCH (09:54)
[2017-12-24] MEDS: MULTIVITAMINS W-IRON TABLET, CHEWABLE PO SCH (09:56)
[2017-12-24] MEDS: INSULIN GLARGINE,HUM.REC.ANLOG 1,000 UNIT/10 ML UNIT SUBCUT SCH ×2 (09:58→22:26)
[2017-12-24] MEDS: MICONAZOLE NITRATE 2% CREAM 15GM TP SCH ×2 (10:03→22:41)
--- NOTE | 2017-12-24 10:14 | Physician Advisory Note ---
Physician Advisor ProgressNote .: Pursuant to the plan for [facility], I have reviewed the medical record for this patient. Physician Advisor Statement: Reportedly had F/C/N/V/sweats & flank pain w/UTI - do you believe she had "probable acute pyelo"? Thx, CK
[2017-12-24] MEDS: METOPROLOL TARTRATE PF/INJ 5 MG/5 ML SDV IV PRN (11:35)
--- NOTE | 2017-12-24 13:16 | PDOC PROGRESS REPORT ---
Subjective Progress Note for:: 12/24/17 Subjective:: The patient is a 62-year-old female with a past medical history of CAD, hyperlipidemia, hypertension, NILO (utilizes BiPAP), insulin-dependent diabetes mellitus, CKD, arthritis, depression, anxiety, and anemia who was admitted 12/22 for ESBL E. coli sensitive to IV antibiotics only. Patient was seen early this afternoon on rounds. She was found sitting up to the edge of the bed comfortably on room air eating her lunch. She reports continued improvement today. She does continue to have mild abdominal discomfort today and discomfort and lower back pain (chronic). She denies fever /chills, malaise, chest pain, palpitations, dyspnea, orthopnea, flank pain, nausea and vomiting have all resolved. She does endorse nasal congestion, rhinorrhea, and a headache this morning. She has no other questions or concerns. No concerns per nursing. Reason For Visit: UTI Physical Exam Vital Signs: Temp Pulse Resp BP Pulse Ox 98.1 F 80 16 179/80 H 92 12/24/17 11:10 12/24/17 11:10 12/24/17 11:10 12/24/17 11:10 12/24/17 11:10 Intake & Output 12/23/17 12/24/17 12/25/17 06:59 06:59 06:59 Intake Total 870 2627 590 Balance 870 2627 590 General appearance: PRESENT: no acute distress, disheveled, morbidly obese, well -developed, well-nourished Head exam: PRESENT: atraumatic, normocephalic Eye exam: PRESENT: conjunctiva pink, EOMI, PERRLA. ABSENT: scleral icterus Ear exam: PRESENT: normal external ear exam Mouth exam: PRESENT: moist, tongue midline Neck exam: ABSENT: carotid bruit, JVD, lymphadenopathy, thyromegaly Respiratory exam: PRESENT: clear to auscultation vadim, decreased breath sounds - Bibasilar, symmetrical, unlabored. ABSENT: rales, rhonchi, wheezes Cardiovascular exam: PRESENT: RRR. ABSENT: diastolic murmur, rubs, systolic murmur Pulses: PRESENT: normal dorsalis pedis pul Vascular exam: PRESENT: normal capillary refill GI/Abdominal exam: PRESENT: normal bowel sounds, soft. ABSENT: distended, guarding, mass, organolmegaly, rebound, tenderness Rectal exam: PRESENT: deferred Extremities exam: PRESENT: full ROM. ABSENT: calf tenderness, clubbing, pedal edema Neurological exam: PRESENT: alert, awake, oriented to person, oriented to place , oriented to time, oriented to situation, CN II-XII grossly intact. ABSENT: motor sensory deficit Psychiatric exam: PRESENT: appropriate affect, normal mood. ABSENT: homicidal ideation, suicidal ideation Skin exam: PRESENT: dry, intact, warm. ABSENT: cyanosis, rash Results Laboratory Results: 12/24/17 06:07 12/24/17 06:07 12/24/17 12/24/17 06:07 06:07 WBC 7.7 RBC 3.08 L Hgb 9.8 L Hct 28.0 L MCV 91 MCH 31.9 MCHC 35.1 RDW 15.5 H Plt Count 304 Sodium 139.4 Potassium 3.6 Chloride 105 Carbon Dioxide 33 H Anion Gap 1 L BUN 18 Creatinine 1.15 Est GFR ( Amer) 57 L Est GFR (Non-Af Amer) 48 L Glucose 100 Calcium 8.7 Assessment & Plan - Diagnosis (1) Acute pyelonephritis Is this a current diagnosis for this admission?: Yes Plan: Patient was seen in the emergency department on 12/17/17 for UTI symptoms; discharged to home on cephalexin. She was notified that her urine culture from that visit grew ESBL E. coli and she was called back to the emergency department. Patient reports that her symptoms had not improved while on oral antibiotics. The admitting provider's note indicates the patient reported subjective fever, chills, malaise, flank pain, nausea and diarrhea. WBCs are normal. She remains afebrile. Repeat urinalysis positive for protein, glucose, leuk esterase. Repeat urine cultures is positive for pansensitive E. coli. Blood cultures are negative at 48 hours. Lactic acidosis has resolved. The patient is admitted to the medical floor. She was placed on IV meropenem based upon urine culture obtained during her ED visit on 12/17. Meropenem stopped 12/24/17. Infectious disease was consulted secondary to discrepancy in urine culture sensitivities; as the patient had symptoms supporting acute pyelonephritis, recommendations are to continue IV antibiotics. Per Dr. Luna's recommendations, she is transitioned to IV ertapenem 1 g daily. We will plan for for PICC line tomorrow (once blood cultures are negative at 72 hours) and discharged to home for continued IV antibiotic therapy. Antibiotic course to be completed after her dose December 31. (2) Urinary tract infection Qualifiers: Urinary tract infection type: site unspecified Hematuria presence: without hematuria Qualified Code(s): N39.0 - Urinary tract infection, site not specified Is this a current diagnosis for this admission?: Yes Plan: As above. (3) CKD (chronic kidney disease), stage III Is this a current diagnosis for this admission?: Yes Plan: At baseline today. Creatinine 1.14--> 1.12--> 1.36 --> 1.15 Bump in creatinine is likely secondary to meropenem; resolved following gentle IV fluids overnight. We will avoid nephrotoxic medications as able. Daily chemistries. (4) Coronary artery disease Qualifiers: Associated angina: with unspecified angina Is this a current diagnosis for this admission?: Yes Plan: Stable; no current chest pain symptoms. Continue daily aspirin and statin therapy. (5) Diabetes mellitus type 2 in obese Is this a current diagnosis for this admission?: Yes Plan: The patient is placed on a consistent carb diet. Continue her home dose Lantus. Accu-Cheks before meals and at bedtime with Humalog for sliding scale coverage. Dietary discretion is advised; registered dietitian has been consulted for diet and weight loss recommendations. (6) NILO (obstructive sleep apnea) Is this a current diagnosis for this admission?: Yes Plan: CPAP nightly. (7) Hypertension Qualifiers: Hypertension type: unspecified Qualified Code(s): I10 - Essential (primary ) hypertension Is this a current diagnosis for this admission?: Yes Plan: Blood pressure remains elevated today; has required prn IV Labetalol for BP control. The patient's home medications are continued: Amlodipine 10 mg daily, lisinopril 20 mg daily, hydrochlorothiazide 12.5 mg daily. Have started carvedilol 6.25 mg twice daily. Continue to monitor; consider dose increase of HCTZ. IV Lopressor as needed for blood pressure control. (8) Hyperlipidemia Is this a current diagnosis for this admission?: Yes Plan: Continue patient's home dose of Zetia and Lipitor. (9) Anemia, chronic disease Is this a current diagnosis for this admission?: Yes Plan: Stable. Anemia of chronic disease secondary to chronic kidney disease, diabetes mellitus, and morbid obesity. Hemoglobin has drifted down slightly from 11.3 to 9.2 secondary to IV fluids; improved today. No indications of active bleeding at this time. We will start multivitamin with iron. We will continue to monitor. - Time Time Spent with patient: 15-24 minutes Medications reviewed and adjusted accordingly: Yes Anticipated discharge: Home Within: within 24 hours
[2017-12-24] MEDS: FLUTICASONE NASAL SPRAY 50 MCG/SPRY 120 SPRAY/16 GM NASL SCH (22:32)
[2017-12-24] MEDS: ATORVASTATIN CALCIUM 80 MG TABLET PO SCH (22:33)
[2017-12-24] MEDS: CARVEDILOL 6.25 MG TABLET PO SCH (22:44)
[2017-12-25 05:48] LABS: HEMATOCRIT 23.7 % (36.0-47.0); HEMOGLOBIN 8.1 g/dL (12.0-15.5); MEAN CORPUSCULAR HEMOGLOBIN 31.3 pg (27.0-33.4); MEAN CORPUSCULAR HGB CONC 34.2 g/dL (32.0-36.0); MEAN CORPUSCULAR VOLUME 92 fl (80-97); PLATELET COUNT 269 10^3/uL (150-450); RED BLOOD COUNT 2.59 10^6/uL (3.72-5.28); RED CELL DISTRIBUTION WIDTH 15.6 % (11.5-14.0); WHITE BLOOD COUNT 7.1 10^3/uL (4.0-10.5)
[2017-12-25 06:00] LABS: ANION GAP 5 (5-19); BLOOD UREA NITROGEN 27 mg/dL (7-20); CALCIUM 8.5 mg/dL (8.4-10.2); CARBON DIOXIDE 32 mmol/L (22-30); CHLORIDE 105 mmol/L (98-107); GLUCOSE 83 mg/dL (75-110); POTASSIUM 3.7 mmol/L (3.6-5.0); SODIUM 142.2 mmol/L (137-145)
[2017-12-25] MEDS: LANSOPRAZOLE 30 MG TAB.RAP.DR PO SCH (06:42)
[2017-12-25] MEDS: MULTIVITAMINS W-IRON TABLET, CHEWABLE PO SCH (09:21)
[2017-12-25] MEDS: AMLODIPINE BESYLATE 10 MG TABLET PO SCH (09:22)
[2017-12-25] MEDS: HYDROCHLOROTHIAZIDE 12.5 MG TABLET PO SCH (09:22)
[2017-12-25] MEDS: GABAPENTIN 300 MG CAPSULE PO SCH (09:22)
[2017-12-25] MEDS: ESCITALOPRAM OXALATE 10 MG TABLET PO SCH (09:23)
[2017-12-25] MEDS: FERROUS SULFATE 325 MG TABLET PO SCH (09:23)
[2017-12-25] MEDS: ASPIRIN 81 MG TABLET, ENT COATED PO SCH (09:24)
[2017-12-25] MEDS: CARVEDILOL 6.25 MG TABLET PO SCH (09:24)
[2017-12-25] MEDS: EZETIMIBE 10 MG TABLET PO SCH (09:24)
[2017-12-25] MEDS: LISINOPRIL 10 MG TABLET PO SCH (09:24)
[2017-12-25] MEDS: FLUTICASONE NASAL SPRAY 50 MCG/SPRY 120 SPRAY/16 GM NASL SCH (09:25)
[2017-12-25] MEDS: CETIRIZINE 10 MG TABLET PO SCH (09:25)
[2017-12-25] MEDS: ERTAPENEM SODIUM 1 GM in NORMAL SALINE 50 ML IV SCH (09:26)
[2017-12-25] MEDS: ENOXAPARIN SODIUM INJ 40 MG/0.4 ML DISP.SYRIN SUBCUT SCH (09:26)
[2017-12-25] MEDS: INSULIN GLARGINE,HUM.REC.ANLOG 1,000 UNIT/10 ML UNIT SUBCUT SCH (09:43)
[2017-12-25] MEDS: MICONAZOLE NITRATE 2% CREAM 15GM TP SCH (09:45)
[2017-12-25] MEDS ORDERED: NORMAL SALINE 10 ML SDV (AFTER EACH USE) IV PRN (10:50)
--- NOTE | 2017-12-25 11:43 | RADIOLOGY REPORT (SQ) ---
EXAM DESCRIPTION: PICC INSERTION; FLUORO/CV PLACEMENT; U/S GUIDE FOR VASCULAR ACCESS COMPLETED DATE/TIME: 12/25/2017 11:01 am REASON FOR STUDY: Home abx therapy; IV ABX COMPARISON: None. FLUOROSCOPY TIME: 0.19 minute. 2 images saved to PACS. TECHNIQUE: Fluoroscopic and ultrasound guided PICC placement. LIMITATIONS: None. PROCEDURE: After written consent and assessment were obtained, the patient was brought into the fluo roscopy room and placed supine on the table. Ultrasound evaluation of potential access sites were per formed. After successfully identifying a patent left basilic vein, the left arm was prepped and drape d in a sterile fashion along with the ultrasound probe. The entry site was anesthetized with 1% lidoc thaddeus. A 21 gauge 7 cm needle was advanced through the skin and into the basilic vein under live ultra sound guidance. An ultrasound image was saved to PACS confirming access site. A .018 guide wire was then inserted through the needle and into the venous system. The needle was then removed and an 11 b lade scalpel was used to make a 1cm skin incision. A 5 fr peel-away sheath was advanced over the wir e and into the venous system. A measurement was then made using the existing wire and live fluoroscop ic guidance. The wire was then removed and trimmed. The PICC was advanced through the peel-away sheat h and into the venous system. The peel-away sheath was removed and the catheter was adhered to the pa tients arm with a stat lock. The catheter was then aspirated and flushed and a sterile bandage was pl aced over the access site. A fluoroscopic spot image was saved to PACS confirming the catheter tip w ithin the superior vena cava. IMPRESSION: SUCCESSFUL PLACEMENT OF A 5 FR DUAL LUMEN 42 CM PICC IN THE LEFT BASILIC VEIN. COMMENT: Patient medication list reviewed: Yes- Quality ID# [id number]:Eligible professional attests to doc umenting in the medical record they obtained, updated, or reviewed the patient's current medications. . Quality ID 145: Final reports for procedures using fluoroscopy that document radiation exposure brittany jarett, or exposure time and number of fluorographic images (if radiation exposure indices are not avail able) Quality ID #76: The patient was prepped and draped using maximum sterile barrier technique including cap, mask, sterile gown, sterile gloves, a large sterile sheet, hand hygiene, and 2% Chlorhexidine fo r cutaneous antisepsis. When ultrasound is used, sterile ultrasound techniques are followed requiring sterile gel and sterile probes. TECHNICAL DOCUMENTATION: JOB ID: [id number] [employer]- All Rights Reserved rev-07/17 Reading location - IP/workstation name: [facility]
[2017-12-25 11:54] VITALS: BP 149/71
--- NOTE | 2017-12-25 17:02 | PDOC DISCHARGE SUMMARY ---
General - Admit/Disc Date/PCP Admission Date/Primary Care Provider: 12/22/17 02:11 EVONNE ROSAJUANY-Vibha Discharge Date: 12/25/17 - Discharge Diagnosis (1) Acute pyelonephritis Is this a current diagnosis for this admission?: Yes Summary: The patient presents to the emergency department on 12/17/2017 with complaints of a UTI with subjective fever and flank pain. Urinalysis was positive and she was discharged home on cephalexin. She was called back into the emergency department for urine culture results revealing ESBL E. coli with multiple resistances. Repeat urinalysis positive for protein, glucose, leuk esterase. Repeat urine cultures was positive for pansensitive E. coli. Blood cultures are negative at 72 hours. She was admitted to the hospital and provided IV fluids and placed on meropenem. She is remained afebrile throughout her admission and her leukocytosis has resolved. Infectious disease was consulted secondary to discrepancy in urine culture sensitivities; as the patient had symptoms supporting acute pyelonephritis, recommendations are to continue IV antibiotics. A PICC line was placed and the patient was transitioned to IV ertapenem 1 g daily on 12/24/17. She is discharged home with home health nursing and infusion services. She is to continue once daily ertapenem with last dose to be administered on 12/31/17. At time of discharge, the patient was in stable condition and asymptomatic. She has been instructed to follow-up with her primary care provider within 1 week. She is also been advised to return to the emergency department for any concerning symptoms. (2) Urinary tract infection Is this a current diagnosis for this admission?: Yes Summary: As above. (3) CKD (chronic kidney disease), stage III Is this a current diagnosis for this admission?: Yes Summary: Stable. (4) Coronary artery disease Is this a current diagnosis for this admission?: Yes Summary: Stable; the patient did not experience any chest pain symptoms during her admission. (5) Diabetes mellitus type 2 in obese Is this a current diagnosis for this admission?: Yes Summary: The patient was placed on a consistent carb diet. Her home dose insulin was continued. (6) NILO (obstructive sleep apnea) Is this a current diagnosis for this admission?: Yes Summary: Recommend continued CPAP nightly. (7) Hypertension Is this a current diagnosis for this admission?: Yes Summary: The patient's blood pressures remained elevated despite continuing her home dose amlodipine, lisinopril, and hydrochlorothiazide. She was placed on carvedilol 6.25 mg twice daily with resultant acceptable blood pressures. She has been provided a prescription for carvedilol to continue at discharge in addition to her previous home regimen. (8) Hyperlipidemia Is this a current diagnosis for this admission?: Yes Summary: She is recommended to continue her home dose of Zetia and Lipitor. (9) Anemia, chronic disease Is this a current diagnosis for this admission?: Yes Summary: Hemoglobin trended down slightly with IV fluids. Vital signs were stable and she had no indications of active bleeding. Home health nursing has been provided an order to obtain a CBC for follow-up on 12/29/17. Patient is encouraged to continue supplemental multivitamin with iron. - Additional Information Discharge Diet: Cardiac, Diabetic Discharge Activity: Activity As Tolerated Prescriptions: Carvedilol [Coreg 6.25 mg Tablet] 6.25 mg PO Q12 #60 tablet Ertapenem Sodium [Invanz Inj 1 gm Vial] 1 gm IV DAILY #6 vial Fluticasone Propionate [Flonase Nasal Howe 50 Mcg/Howe 16 gm] 1 spray NASL Q12 #1 spray.pump Oxycodone HCl/Acetaminophen [Percocet 5-325 mg Tablet] 1 tab PO Q6HP PRN #10 tablet PRN Reason: Home Medications: Atorvastatin Calcium 80 mg PO QHS 07/23/16 Cetirizine HCl [Zyrtec] 10 mg PO DAILY 07/23/16 Hydrochlorothiazide 12.5 mg PO DAILY 07/23/16 Insulin Glargine,Hum.rec.anlog [Lantus] 70 units SUBCUT BID 07/23/16 Pantoprazole Sodium [Protonix] 40 mg PO DAILY 07/23/16 Tramadol HCl [Ultram] 50 mg PO Q12HP PRN 07/23/16 Amlodipine Besylate 10 mg PO DAILY 04/17/17 Escitalopram Oxalate 20 mg PO DAILY 04/17/17 Lisinopril 20 mg PO DAILY 04/17/17 Ezetimibe [Zetia 10 mg Tablet] 10 mg PO DAILY 12/22/17 Ferrous Sulfate [Feosol 325 mg Tablet] 325 mg PO DAILY 12/22/17 Gabapentin [Neurontin 300 mg Capsule] 600 mg PO QHS 12/22/17 Gabapentin [Neurontin 300 mg Capsule] 900 mg PO DAILY 12/22/17 Insulin Lispro [Humalog Insulin (Lispro) 100 unit/mL] 35 unit SUBCUT AC Acetaminophen [Tylenol 325 mg Tablet] 650 mg PO Q4HP PRN tablet 12/25/17 Aspirin [Ecotrin 81 mg EC Tablet] 81 mg PO DAILY tabec 12/25/17 Carvedilol [Coreg 6.25 mg Tablet] 6.25 mg PO Q12 #60 tablet 12/25/17 Ertapenem Sodium [Invanz Inj 1 gm Vial] 1 gm IV DAILY #6 vial 12/25/17 Fluticasone Propionate [Flonase Nasal Howe 50 Mcg/Howe 16 gm] 1 spray NASL Q12 #1 spray.pump 12/25/17 Oxycodone HCl/Acetaminophen [Percocet 5-325 mg Tablet] 1 tab PO Q6HP PRN #10 tablet 12/25/17 History of Present Illness History of Present Illness: Per H&P by Dr. Jung: FINA HERNÁNDEZ is a 62 year old female who comes to the emergency department called by a nurse here for abnormal urine culture. Patient has been in our emergency department on 12/17 as she started with nausea and persistent vomiting of yellowish secretions, nonbloody diarrhea, associated with night sweating, dry mouth, bilateral flank pain stabbing in nature, urinary frequency, subjective fever with chills. Denies shortness of breath, chest pain, abdominal pain, hematuria. On 12/17 patient was discharged to her house after urinalysis came back positive with cephalexin and Zofran that the patient has been taking every day as indicated. Today she was called because the urine culture came back positive for ESBL E. coli resistant to cephalexin. In the ED given 1 dose of IV Invanz, unfortunately the only p.o. antibiotic that she could take his Macrodantin. Patient tells me that her symptoms has improved and are the same that 4 days ago. Physical Exam Vital Signs: Temp Pulse Resp BP Pulse Ox 97.8 F 69 16 149/71 H 99 12/25/17 14:39 12/25/17 14:39 12/25/17 14:39 12/25/17 14:39 12/25/17 14:39 Intake & Output 12/24/17 12/25/17 12/26/17 06:59 06:59 06:59 Intake Total 2627 1690 500 Balance 2627 1690 500 General appearance: PRESENT: no acute distress, morbidly obese, well-developed, well-nourished Head exam: PRESENT: atraumatic, normocephalic Eye exam: PRESENT: conjunctiva pink, EOMI, PERRLA. ABSENT: scleral icterus Ear exam: PRESENT: normal external ear exam Mouth exam: PRESENT: moist, tongue midline Neck exam: ABSENT: carotid bruit, JVD, lymphadenopathy, thyromegaly Respiratory exam: PRESENT: clear to auscultation vadim, symmetrical, unlabored. ABSENT: rales, rhonchi, wheezes Cardiovascular exam: PRESENT: RRR. ABSENT: diastolic murmur, rubs, systolic murmur Pulses: PRESENT: normal dorsalis pedis pul Vascular exam: PRESENT: normal capillary refill GI/Abdominal exam: PRESENT: normal bowel sounds, soft. ABSENT: distended, guarding, mass, organolmegaly, rebound, tenderness Rectal exam: PRESENT: deferred Extremities exam: PRESENT: full ROM. ABSENT: calf tenderness, clubbing, pedal edema Neurological exam: PRESENT: alert, awake, oriented to person, oriented to place , oriented to time, oriented to situation, CN II-XII grossly intact. ABSENT: motor sensory deficit Psychiatric exam: PRESENT: appropriate affect, normal mood. ABSENT: homicidal ideation, suicidal ideation Skin exam: PRESENT: dry, intact, warm. ABSENT: cyanosis, rash Results Laboratory Results: 12/25/17 05:33 12/25/17 05:33 12/25/17 12/25/17 05:33 05:33 WBC 7.1 RBC 2.59 L Hgb 8.1 L Hct 23.7 L MCV 92 MCH 31.3 MCHC 34.2 RDW 15.6 H Plt Count 269 Sodium 142.2 Potassium 3.7 Chloride 105 Carbon Dioxide 32 H Anion Gap 5 BUN 27 H Creatinine 1.37 H Est GFR ( Amer) 47 L Est GFR (Non-Af Amer) 39 L Glucose 83 Calcium 8.5 Impressions: Guidance Fluoroscopy 12/25/17 00:00 IMPRESSION: SUCCESSFUL PLACEMENT OF A 5 FR DUAL LUMEN 42 CM PICC IN THE LEFT BASILIC VEIN. Interventional Vascular Procedure 12/25/17 00:00 IMPRESSION: SUCCESSFUL PLACEMENT OF A 5 FR DUAL LUMEN 42 CM PICC IN THE LEFT BASILIC VEIN. PICC Line Insertion 12/25/17 00:00 IMPRESSION: SUCCESSFUL PLACEMENT OF A 5 FR DUAL LUMEN 42 CM PICC IN THE LEFT BASILIC VEIN. Qualifiers - * PATIENT BEING DISCHARGED WITH ANY OF THE FOLLOWING DIAGNOSIS: No Plan Discharge Plan: Discharge to home. Arrangements have been made for the patient to receive once daily ertapenem via PICC line for the remainder of her antibiotic course. Monitoring CBC and BMP ordered for 12/29/17. Follow-up with primary care provider within 1 week as scheduled. Time Spent: Less than 30 Minutes
[2017-12-25] MEDS ORDERED: NORMAL SALINE 10 ML SDV (SCHEDULED) IV SCH (22:00)
== END 2017-12-25 16:42 | disposition home health service (06) | DRG 690 ==
LOC: ER 19:54 → EH 12-22 02:11 → 2N 12-22 03:15
PROVIDERS: ADMIT Internal Medicine; ATTEND Internal Medicine
PROC: 02HV33Z Insertion of Infusion Device into Superior Vena Cava, Percutaneous Approach (ICD-10-PCS; principal; 2017-12-25)
PROC: B518ZZA Fluoroscopy of Superior Vena Cava, Guidance (ICD-10-PCS; 2017-12-25)
PROC: B548ZZA Ultrasonography of Superior Vena Cava, Guidance (ICD-10-PCS; 2017-12-25)
DX: N10 Acute pyelonephritis (principal); Z68.42 Body mass index [BMI] 45.0-49.9, adult; I12.9 Hypertensive chronic kidney disease with stage 1 through stage 4 chronic kidney disease, or unspecified chronic kidney disease; E11.22 Type 2 diabetes mellitus with diabetic chronic kidney disease; N18.3 Chronic kidney disease, stage 3 (moderate); B96.20 Unspecified Escherichia coli [E. coli] as the cause of diseases classified elsewhere; D63.1 Anemia in chronic kidney disease; I25.10 Atherosclerotic heart disease of native coronary artery without angina pectoris; E78.5 Hyperlipidemia, unspecified; G47.33 Obstructive sleep apnea (adult) (pediatric); L29.2 Pruritus vulvae; E66.01 Morbid (severe) obesity due to excess calories; Z79.4 Long term (current) use of insulin
CPT/HCPCS: 36415; 36569; 76937; 77001; 80048; 80053; 81001; 82962; 83605; 83690; 83735; 84100; 85025; 85027; 85610; 85730; 87040; 87086; 87088; 87186; 93005; 93010; 94660; 96361; 96365; 96375; 99285; J0360; J1170; J1335; J1642; J1650; J1815; J2185; J2270; J2405; J3490; J7030

== ENCOUNTER 2018-02-07 11:10 | Inpatient (IN) | payer MEDICAID ==
[2018-02-07] MEDS ORDERED: MAGNESIUM SULFATE/D5W 1 GM/100 ML RTUPB IV ONE ×2 (11:30)
[2018-02-07 11:35] LABS: ABSOLUTE BASOPHILS # (AUTO) 0.1 10^3/uL (0.0-0.2); ABSOLUTE EOSINOPHILS # (AUTO) 0.1 10^3/uL (0.0-0.6); ABSOLUTE LYMPHOCYTES (AUTO) 2.3 10^3/uL (0.5-4.7); ABSOLUTE NEUT (AUTO) 4.9 10^3/uL (1.7-8.2); BASOPHILS % (AUTO) 0.9 % (0-2); EOSINOPHILS % (AUTO) 1.1 % (0-6); HEMATOCRIT 29.4 % (36.0-47.0); HEMOGLOBIN 10.2 g/dL (12.0-15.5); LYMPHOCYTES % (AUTO) 27.3 % (13-45); MEAN CORPUSCULAR HEMOGLOBIN 31.5 pg (27.0-33.4); MEAN CORPUSCULAR HGB CONC 34.6 g/dL (32.0-36.0); MEAN CORPUSCULAR VOLUME 91 fl (80-97); PLATELET COUNT 384 10^3/uL (150-450); RED BLOOD COUNT 3.24 10^6/uL (3.72-5.28); SEGMENTED NEUTROPHILS % (AUTO) 58.7 % (42-78); TOTAL CELLS COUNTED % (AUTO) 100 %; WHITE BLOOD COUNT 8.3 10^3/uL (4.0-10.5)
--- NOTE | 2018-02-07 11:46 | ER Document Report ---
ED General - General Chief Complaint: Shortness Of Breath Stated Complaint: SHORTNESS OF BREATH Time Seen by Provider: 02/07/18 11:17 TRAVEL OUTSIDE OF THE [place] IN LAST 30 DAYS: No - HPI Notes: Patient is a 62-year-old female with a history of hypertension, stage III chronic kidney disease, insulin-dependent diabetic, obstructive sleep apnea and uses CPAP at night, coronary artery disease without stent placement, and previous asthma who presents to the ED complaining of shortness of breath, substernal chest pain, dry nonproductive cough, wheezing over the last week. Patient states that the pain does not radiate and is worsened when she pushes on it. Patient states that she has had a few episodes of diarrhea as well. She is still able to eat and drink without any difficulties otherwise. She is urinating normally. Patient states that she is currently being treated for UTI and was started back on medicine 3 days ago. She had recent hospitalization for ESBL E. coli. Patient states that she has not had any previous history of DC. Denies drug allergies. Denies any prolonged immobilization, distance travel, recent surgery/trauma, personal cancer history, hormone use, smoking, or previous DVT/PE. Denies any headache, fever, neck pain, changes in vision/ speech/mentation/hearing, sore throat, palpitations, syncope, abdominal pain, nausea/vomiting/diarrhea, urinary retention, dysuria, hematuria, or rash. - Related Data Allergies/Adverse Reactions: No Known Allergies Allergy (Verified 02/07/18 11:14) Past Medical History - Social History Smoking Status: Never Smoker Family History: Reviewed & Not Pertinent - Past Medical History Cardiac Medical History: Reports: Hx Coronary Artery Disease - high chol, Hx Hypercholesterolemia, Hx Hypertension Denies: Hx Heart Attack Pulmonary Medical History: Reports: Hx Sleep Apnea Denies: Hx Asthma, Hx Bronchitis, Hx COPD, Hx Pneumonia Neurological Medical History: Denies: Hx Cerebrovascular Accident, Hx Seizures Endocrine Medical History: Reports: Hx Diabetes Mellitus Type 2 Renal/ Medical History: Denies: Hx Peritoneal Dialysis Musculoskeletal Medical History: Reports Hx Arthritis Psychiatric Medical History: Reports: Hx Depression Past Surgical History: Reports: Hx Cholecystectomy - Gallbladder Sx, Hx Tonsillectomy, Hx Tubal Ligation, Other - Carpal tunnel - Immunizations Hx Diphtheria, Pertussis, Tetanus Vaccination: Yes Review of Systems - Review of Systems -: Yes All other systems reviewed and negative Physical Exam - Vital signs Vitals: Pulse Ox 90 L 02/07/18 11:10 - Notes Notes: PHYSICAL EXAMINATION: GENERAL: Well-appearing, well-nourished and in no acute distress. A&Ox4. Answers questions appropriately. HEAD: Atraumatic, normocephalic. EYES: Pupils equal round and reactive to light, extraocular movements intact, sclera anicteric, conjunctiva are normal. ENT: Nares patent and without discharge. oropharynx clear without exudates. No tonsilar hypertrophy or erythema. Moist mucous membranes. NECK: Normal range of motion, supple without lymphadenopathy Chest: + reproducible tenderness to palpation of the inferior sternum to palpation. LUNGS: diminished b/l base. No obvious wheeze or rale. HEART: Regular rate and rhythm without murmurs, rubs, gallops. ABDOMEN: Soft, nontender, nondistended abdomen. No guarding, no rebound. normal bowel sounds present. No CVA tenderness bilaterally. Musculoskeletal: FROM to passive/active. Strength 5+/5. Ksenia neg. No asymmetry to LE's. Extremities: Trace pitting edema b/l. Peripheral pulses 2+. Capillary refill less than 3 seconds. NEUROLOGICAL: Normal speech, normal gait. PSYCH: Normal mood, normal affect. SKIN: Warm, Dry, normal turgor, no rashes or lesions noted. Course - Re-evaluation Re-evalutation: 02/07/18 15:28 Patient is an afebrile, well-hydrated, 62-year-old female who presents to the ED with acute hypoxemia and possible CHF involvement. Vitals are currently acceptable and patient is on 2 L oxygen via nasal cannula. Patient would decrease to 88-89% on room air which is not normal for her. Labs are grossly acceptable at this time. Patient did receive magnesium through us as well as receiving Solu-Medrol and breathing treatment from EMS. Patient states that she is feeling better and does not have any chest pain. Patient's chest pain was reproducible upon palpation and movement of the arms. Patient was accepted to telemetry for by Dr. Herrera for admission. - Vital Signs Vital signs: Temp Pulse Resp BP Pulse Ox 24 H 143/71 H 88 L 02/07/18 14:01 02/07/18 14:01 02/07/18 15:08 - Laboratory Result Diagrams: 02/07/18 11:14 02/07/18 11:14 Laboratory results interpreted by me: 02/07/18 02/07/18 02/07/18 11:14 11:14 11:14 RBC 3.24 L Hgb 10.2 L Hct 29.4 L RDW 16.0 H Carbon Dioxide 31 H BUN 25 H Est GFR (Non-Af Amer) 50 L Glucose 187 H NT-Pro-B Natriuret Pep 1200 H Urine Protein Urine Glucose (UA) Urine Blood Urine Nitrite 02/07/18 13:44 RBC Hgb Hct RDW Carbon Dioxide BUN Est GFR (Non-Af Amer) Glucose NT-Pro-B Natriuret Pep Urine Protein >=500 H Urine Glucose (UA) >=500 H Urine Blood SMALL H Urine Nitrite POSITIVE H Discharge - Discharge Clinical Impression: Acute UTI (urinary tract infection), Hypoxemia, Nonspecific chest pain Condition: Stable Disposition: ADMITTED INPATIENT Admitting Provider: Hospitalist - Dr. Herrera Unit Admitted: Telemetry Referrals: SHLOMO MCKAY DO [Primary Care Provider] - Follow up as needed
[2018-02-07 11:51] LABS: ALANINE AMINOTRANSFERASE 19 U/L (9-52); ALBUMIN 3.9 g/dL (3.5-5.0); ALKALINE PHOSPHATASE 120 U/L (38-126); ANION GAP 7 (5-19); ASPARTATE AMINO TRANSFERASE 30 U/L (14-36); BILIRUBIN,DIRECT 0.2 mg/dL (0.0-0.4); BILIRUBIN,TOTAL 0.7 mg/dL (0.2-1.3); BLOOD UREA NITROGEN 25 mg/dL (7-20); CALCIUM 9.5 mg/dL (8.4-10.2); CARBON DIOXIDE 31 mmol/L (22-30); CHLORIDE 107 mmol/L (98-107); GLUCOSE 187 mg/dL (75-110); POTASSIUM 4.2 mmol/L (3.6-5.0); SODIUM 144.7 mmol/L (137-145); TOTAL PROTEIN 7.7 g/dL (6.3-8.2)
[2018-02-07 12:03] LABS: NT PRO BNP 1200 pg/mL (5-900)
[2018-02-07 12:04] LABS: TROPONIN I < 0.012 ng/mL
--- NOTE | 2018-02-07 12:22 | RADIOLOGY REPORT (SQ) ---
EXAM DESCRIPTION: CHEST SINGLE VIEW COMPLETED DATE/TIME: 02/07/2018 11:59 am REASON FOR STUDY: SOB, cough COMPARISON: 09/08/2015 EXAM PARAMETERS: NUMBER OF VIEWS: One view. TECHNIQUE: Single frontal radiographic view of the chest acquired. RADIATION DOSE: NA LIMITATIONS: None. FINDINGS: LUNGS AND PLEURA: Low volume underpenetrated examination with probable retrocardiac atelec tasis. MEDIASTINUM AND HILAR STRUCTURES: No masses. Contour normal. HEART AND VASCULAR STRUCTURES: Cardiomegaly. BONES: No acute findings. HARDWARE: None in the chest. OTHER: No other significant finding. IMPRESSION: Low volume underpenetrated AP portable examination with probable retrocardiac atelectasi s in the setting of cardiomegaly. There is no definite focal airspace opacity. This may be further evaluated by PA and lateral chest radiographs if desired. TECHNICAL DOCUMENTATION: JOB ID: [id number] [employer]- All Rights Reserved Reading location - IP/workstation name: [email or web address]
[2018-02-07 12:29] LABS: VENOUS BLOOD BASE EXCESS 3.7 mmol/L; VENOUS BLOOD HCO3 31.4 mmol/L (20-32); VENOUS BLOOD PCO2 61.1 mmHg (35-63); VENOUS BLOOD PH 7.33 (7.30-7.42)
[2018-02-07 14:13] LABS: APPEARANCE,URINE SLIGHTLY-CLOUDY; BILIRUBIN,URINE NEGATIVE (NEGATIVE); COLOR,URINE YELLOW; GLUCOSE, URINE >=500 mg/dL (NEGATIVE); KETONES,URINE NEGATIVE (NEGATIVE); LEUKOCYTE ESTERASE,URINE NEGATIVE (NEGATIVE); NITRITE,URINE POSITIVE (NEGATIVE); PROTEIN,URINE >=500 mg/dL (NEGATIVE); URINE SPECIFIC GRAVITY 1.017; UROBILINOGEN,URINE NEGATIVE mg/dL (<2.0)
--- NOTE | 2018-02-07 15:17 | RADIOLOGY REPORT (SQ) ---
EXAM DESCRIPTION: CTA CHEST COMPLETED DATE/TIME: 02/07/2018 3:06 pm REASON FOR STUDY: SOB, hypoxia COMPARISON: None. TECHNIQUE: CT scan of the chest performed using helical scanning technique with dynamic intravenous contrast injection. Images reviewed with lung, soft tissue and bone windows. Reconstructed coronal and sagittal MPR images reviewed. Additional 3 dimensional post-processing performed to develop Maximal Intensity Projection images (IN P). All images stored on PACS. All CT scanners at this facility use dose modulation, iterative reconstruction, and/or weight based d osing when appropriate to reduce radiation dose to as low as reasonably achievable (ALARA). [facility]: Dose Right [facility]: CareDose [facility]: Dose Right [facility]: Teradose 4D [facility]: [employer] CONTRAST TYPE AND DOSE: Not record not recorded Contrast bolus optimized for the pulmonary arteries. Not diagnostic for the aorta. RENAL FUNCTION: Creatinine 1.1 RADIATION DOSE: CT Rad equipment meets quality standard of care and radiation dose reduction techniq ues were employed. CTDIvol: 52.7 - 58.6 mGy. DLP: 1910 mGy-cm. . LIMITATIONS: None. FINDINGS: LUNGS AND PLEURA: Bilateral pleural effusions right greater than left with basilar bari sive atelectasis. AORTA AND GREAT VESSELS: No aneurysm. Contrast bolus not optimized for the aorta. HEART: Small pericardial effusion. Marked cardiac enlargement. No significant coronary artery calcif ications. PULMONARY ARTERIES: No emboli visualized in the main pulmonary arteries or the segmental branches. HILAR AND MEDIASTINAL STRUCTURES: No identified masses or abnormal nodes. HARDWARE: None in the chest. UPPER ABDOMEN: No significant findings. Limited exam. THYROID AND OTHER SOFT TISSUES: No masses. No adenopathy. BONES: No acute or significant finding. 3D MIPS: Confirm above findings. OTHER: No other significant finding. IMPRESSION: No pulmonary emboli. Bilateral pleural effusions right greater than left with basilar compressive atelectasis. Marked cardiac enlargement with small pericardial effusion. COMMENT: Quality ID # [id number]: Final reports with documentation of one or more dose reduction techniques (e.g., Automated exposure control, adjustment of the mA and/or kV according to patient size, use of iterative reconstruction technique) TECHNICAL DOCUMENTATION: JOB ID: [id number] [email or web address] - [employer]- All Rights Reserved Reading location - IP/workstation name: [email or web address]
[2018-02-07] MEDS ORDERED: CEFTRIAXONE 1 GM/D5W RTU 1 GM/50 ML RTUPB IV ONE (15:19)
[2018-02-07] MEDS ORDERED: ACETAMINOPHEN 325 MG TABLET PO PRN (15:53)
[2018-02-07] MEDS ORDERED: PROMETHAZINE HCL INJ 25 MG/1 ML VIAL IV PRN (15:53)
[2018-02-07] MEDS ORDERED: GLUCAGON,HUMAN RECOMB 1 MG INJ IM PRN (16:02)
[2018-02-07] MEDS ORDERED: DEXTROSE 40% GEL 15 GM TUBE PO PRN ×2 (16:02)
[2018-02-07] MEDS ORDERED: DEXTROSE 50%-WATER 25 GM/50 ML DISP.SYRIN IV PRN ×2 (16:02)
--- NOTE | 2018-02-07 16:28 | PDOC H&P ---
History of Present Illness Admission Date/PCP: 02/07/18 15:55 SHLOMO MCKAY DO Patient complains of: SOB History of Present Illness: FINA HERNÁNDEZ is a 62 year old female Past Medical History Cardiac Medical History: Reports: Coronary Artery Disease - high chol, Hyperlipidema, Hypertension Denies: Myocardial Infarction Pulmonary Medical History: Reports: Sleep Apnea Denies: Asthma, Bronchitis, Chronic Obstructive Pulmonary Disease (COPD), Pneumonia Neurological Medical History: Denies: Seizures Endocrine Medical History: Reports: Diabetes Mellitus Type 2 Musculoskeltal Medical History: Reports: Arthritis Psychiatric Medical History: Reports: Depression Hematology: Reports: Anemia Past Surgical History Past Surgical History: Reports: Cholecystectomy - Gallbladder Sx, Tonsillectomy , Tubal Ligation, Other - Carpal tunnel Social History Smoking Status: Never Smoker Frequency of Alcohol Use: None Hx Recreational Drug Use: No Drugs: None Hx Prescription Drug Abuse: No Family History Family History: Reviewed & Not Pertinent Parental Family History Reviewed: Yes Children Family History Reviewed: Unknown Sibling(s) Family History Reviewed.: Unknown Medication/Allergy Home Medications: Atorvastatin Calcium 80 mg PO QHS 07/23/16 Cetirizine HCl [Zyrtec] 10 mg PO DAILY 07/23/16 Hydrochlorothiazide 12.5 mg PO DAILY 07/23/16 Insulin Glargine,Hum.rec.anlog [Lantus] 70 units SUBCUT BID 07/23/16 Pantoprazole Sodium [Protonix] 40 mg PO DAILY 07/23/16 Tramadol HCl [Ultram] 50 mg PO Q12HP PRN 07/23/16 Amlodipine Besylate 10 mg PO DAILY 04/17/17 Escitalopram Oxalate 20 mg PO DAILY 04/17/17 Lisinopril 20 mg PO DAILY 04/17/17 Ezetimibe [Zetia 10 mg Tablet] 10 mg PO DAILY 12/22/17 Ferrous Sulfate [Feosol 325 mg Tablet] 325 mg PO DAILY 12/22/17 Gabapentin [Neurontin 300 mg Capsule] 600 mg PO QHS 12/22/17 Gabapentin [Neurontin 300 mg Capsule] 900 mg PO DAILY 12/22/17 Insulin Lispro [Humalog Insulin (Lispro) 100 unit/mL] 35 unit SUBCUT AC Acetaminophen [Tylenol 325 mg Tablet] 650 mg PO Q4HP PRN tablet 12/25/17 Aspirin [Ecotrin 81 mg EC Tablet] 81 mg PO DAILY tabec 12/25/17 Carvedilol [Coreg 6.25 mg Tablet] 6.25 mg PO Q12 #60 tablet 12/25/17 Ertapenem Sodium [Invanz Inj 1 gm Vial] 1 gm IV DAILY #6 vial 12/25/17 Fluticasone Propionate [Flonase Nasal Corn[place] 50 Mcg/Cornish 16 gm] 1 spray NASL Q12 #1 spray.pump 12/25/17 Oxycodone HCl/Acetaminophen [Percocet 5-325 mg Tablet] 1 tab PO Q6HP PRN #10 tablet 12/25/17 Allergies/Adverse Reactions: No Known Allergies Allergy (Verified 02/07/18 11:14) Physical Exam Vital Signs: Temp Pulse Resp BP Pulse Ox 26 H 159/75 H 88 L 02/07/18 15:07 02/07/18 15:07 02/07/18 15:08 Results Impressions: Chest X-Ray 02/07/18 11:28 IMPRESSION: Low volume underpenetrated AP portable examination with probable retrocardiac atelectasis in the setting of cardiomegaly. There is no definite focal airspace opacity. This may be further evaluated by PA and lateral chest radiographs if desired. Chest/Abdomen CTA 02/07/18 12:36 IMPRESSION: No pulmonary emboli. Bilateral pleural effusions right greater than left with basilar compressive atelectasis. Marked cardiac enlargement with small pericardial effusion. Assessment & Plan - Diagnosis (1) Hypoxemia Is this a current diagnosis for this admission?: Yes Plan: Hypoxic hypercapnic respiaratory failure : Will place her on BIBAP (2) Diabetes mellitus type 2 in obese Is this a current diagnosis for this admission?: Yes (3) Hypoxia Is this a current diagnosis for this admission?: Yes Plan: Catarina (4) CHF (congestive heart failure) Qualifiers: Heart failure type: unspecified Is this a current diagnosis for this admission?: Yes Plan: Lasix 40 mg IV BID Serial cardiac enzymes Echocardiogram Cardilogy consult in am
[2018-02-07] MEDS ORDERED: FUROSEMIDE INJ/PF 40 MG/4 ML SDV IV ONE (17:00)
[2018-02-07] MEDS ORDERED: NITROGLYCERIN 2.5 MG (0.1 MG/HR) PATCH.TD24 TD ONE ×2 (17:30→22:30)
[2018-02-07] MEDS: ENOXAPARIN SODIUM INJ 40 MG/0.4 ML DISP.SYRIN SUBCUT SCH (17:30)
[2018-02-07] MEDS: LISINOPRIL 10 MG TABLET PO SCH (17:31)
[2018-02-07] MEDS: HYDROCHLOROTHIAZIDE 25 MG TABLET PO SCH (17:31)
[2018-02-07] MEDS: ASPIRIN 325 MG TABLET, ENT COATED PO SCH (17:31)
[2018-02-07] MEDS: AMLODIPINE BESYLATE 10 MG TABLET PO SCH (17:31)
[2018-02-07] MEDS: ESCITALOPRAM OXALATE 10 MG TABLET PO SCH (17:31)
[2018-02-07] MEDS: LEVOFLOXACIN 750 MG TABLET PO SCH (20:26)
[2018-02-07] MEDS: IPRATROPIUM/ALBUTEROL 0.5-2.5 MG/3 ML AMPUL NEB SCH (21:53)
[2018-02-07] MEDS: ONDANSETRON HCL INJ/PF 4 MG/2 ML SDV IV SCH ×2 (21:54→22:32)
[2018-02-07] MEDS: GABAPENTIN 300 MG CAPSULE PO SCH (21:55)
[2018-02-07] MEDS: CARVEDILOL 6.25 MG TABLET PO SCH (21:55)
[2018-02-07] MEDS: INSULIN GLARGINE,HUM.REC.ANLOG 1,000 UNIT/10 ML UNIT SUBCUT SCH (21:55)
[2018-02-07] MEDS: ATORVASTATIN CALCIUM 80 MG TABLET PO SCH (21:55)
[2018-02-07] MEDS: FUROSEMIDE INJ/PF 40 MG/4 ML SDV IV SCH (21:56)
[2018-02-07] MEDS: INSULIN REG, HUMAN 100 UNIT/ML 3 ML VIAL (PYX) SUBCUT PRN (21:57)
[2018-02-07] MEDS ORDERED: ATORVASTATIN CALCIUM 20 MG TABLET PO SCH (22:00)
[2018-02-07] MEDS ORDERED: FUROSEMIDE INJ/PF 20 MG/2 ML SDV IV SCH (22:00)
--- NOTE | 2018-02-07 22:19 | EKG REPORT ---
SEVERITY:- ABNORMAL ECG - SINUS RHYTHM PROBABLE INFERIOR INFARCT, AGE INDETERMINATE BORDERLINE R WAVE PROGRESSION, ANTERIOR LEADS : Confirmed by: Sparkle Ingram 07-Feb-2018 22:18:11
[2018-02-07 22:34] LABS: CREATINE KINASE MB 0.72 ng/mL (<4.55)
[2018-02-07 22:35] LABS: TROPONIN I < 0.012 ng/mL
[2018-02-07] MEDS ORDERED: NITROGLYCERIN 2.5 MG (0.1 MG/HR) PATCH.TD24 ONE (22:41)
[2018-02-08] MEDS: IPRATROPIUM/ALBUTEROL 0.5-2.5 MG/3 ML AMPUL NEB SCH ×6 (00:43→19:41)
[2018-02-08] MEDS: ONDANSETRON HCL INJ/PF 4 MG/2 ML SDV IV SCH ×6 (03:24→22:59)
[2018-02-08 04:59] LABS: ABSOLUTE LYMPHOCYTES (AUTO) 0.7 10^3/uL (0.5-4.7); ABSOLUTE MONOCYTES (AUTO) 0.4 10^3/uL (0.1-1.4); ABSOLUTE NEUT (AUTO) 3.1 10^3/uL (1.7-8.2); BASOPHILS % (AUTO) 0.5 % (0-2); EOSINOPHILS % (AUTO) 0.1 % (0-6); HEMATOCRIT 25.2 % (36.0-47.0); HEMOGLOBIN 8.7 g/dL (12.0-15.5); LYMPHOCYTES % (AUTO) 16.5 % (13-45); MEAN CORPUSCULAR HEMOGLOBIN 31.4 pg (27.0-33.4); MEAN CORPUSCULAR HGB CONC 34.4 g/dL (32.0-36.0); MEAN CORPUSCULAR VOLUME 91 fl (80-97); MONOCYTES % (AUTO) 8.5 % (3-13); PLATELET COUNT 288 10^3/uL (150-450); RED BLOOD COUNT 2.76 10^6/uL (3.72-5.28); RED CELL DISTRIBUTION WIDTH 15.5 % (11.5-14.0); SEGMENTED NEUTROPHILS % (AUTO) 74.4 % (42-78); TOTAL CELLS COUNTED % (AUTO) 100 %; WHITE BLOOD COUNT 4.2 10^3/uL (4.0-10.5)
[2018-02-08 05:19] LABS: ALANINE AMINOTRANSFERASE 19 U/L (9-52); ALBUMIN 2.9 g/dL (3.5-5.0); ALKALINE PHOSPHATASE 83 U/L (38-126); ANION GAP 12 (5-19); ASPARTATE AMINO TRANSFERASE 17 U/L (14-36); BILIRUBIN,DIRECT 0.2 mg/dL (0.0-0.4); BILIRUBIN,TOTAL 0.3 mg/dL (0.2-1.3); BLOOD UREA NITROGEN 34 mg/dL (7-20); CALCIUM 8.8 mg/dL (8.4-10.2); CARBON DIOXIDE 26 mmol/L (22-30); CHLORIDE 102 mmol/L (98-107); CHOLESTEROL 194.61 mg/dL (0-200); GLUCOSE 324 mg/dL (75-110); PHOSPHORUS 4.4 mg/dL (2.5-4.5); POTASSIUM 4.5 mmol/L (3.6-5.0); SODIUM 140.2 mmol/L (137-145); TOTAL PROTEIN 5.4 g/dL (6.3-8.2); TRIGLYCERIDES 254 mg/dL (<150)
[2018-02-08 05:30] LABS: CREATINE KINASE MB 0.62 ng/mL (<4.55); DIRECT LDL 84 mg/dL (<100)
[2018-02-08 05:34] LABS: TROPONIN I < 0.012 ng/mL; VLDL CHOLESTEROL 50.8 mg/dL (10-31)
[2018-02-08] MEDS: FUROSEMIDE INJ/PF 40 MG/4 ML SDV IV SCH ×3 (05:41→23:00)
[2018-02-08 06:39] LABS: ARTERIAL BLOOD BASE EXCESS 3.3 mmol/L; ARTERIAL BLOOD HCO3 28.9 mmol/L (20-24); ARTERIAL BLOOD O2 SATURATION 94.1 % (94-98); ARTERIAL BLOOD PCO2 49.8 mmHg (35-45); ARTERIAL BLOOD PH 7.38 (7.35-7.45); ARTERIAL BLOOD PO2 72.2 mmHg (80-100); ARTERIAL BLOOD TOTAL CO2 30.5 mmol/L (21-25)
[2018-02-08 06:42] LABS: ARTERIAL BLOOD FIO2 28%
--- NOTE | 2018-02-08 08:28 | PDOC PROGRESS REPORT ---
Subjective Progress Note for:: 02/08/18 Subjective:: 62-year-old female with history of CHF admitted yesterday with complaints of severe shortness of breath, hypoxic hypercapnic respiratory failure requiring BiPAP. She is comfortably in the bed on 2 L nasal cannula today. Denies any complaints. She said she is feeling much better today. Reason For Visit: SOB,CHF Physical Exam Vital Signs: Temp Pulse Resp BP Pulse Ox 97.6 F 78 18 138/66 H 93 02/08/18 07:45 02/08/18 07:45 02/08/18 07:45 02/08/18 07:45 02/08/18 07:45 Intake & Output 02/07/18 02/08/18 02/09/18 06:59 06:59 06:59 Intake Total 950 Output Total 800 Balance 150 Weight 134.8 kg General appearance: PRESENT: no acute distress Head exam: PRESENT: atraumatic Eye exam: PRESENT: PERRLA Mouth exam: PRESENT: moist Neck exam: PRESENT: JVD Respiratory exam: PRESENT: other - Crackles in the both lung bases. Decreased air entry at the bases. Pulses: PRESENT: normal dorsalis pedis pul GI/Abdominal exam: PRESENT: normal bowel sounds, soft, other - Obese abdomen.. ABSENT: tenderness Extremities exam: PRESENT: +1 edema Neurological exam: PRESENT: alert, awake, oriented to person, oriented to place , oriented to time, oriented to situation, CN II-XII grossly intact. ABSENT: motor sensory deficit Psychiatric exam: PRESENT: appropriate affect, normal mood. ABSENT: homicidal ideation, suicidal ideation Results Laboratory Results: 02/08/18 03:57 02/08/18 03:57 02/08/18 02/08/18 02/08/18 03:57 03:57 06:25 WBC 4.2 RBC 2.76 L Hgb 8.7 L Hct 25.2 L MCV 91 MCH 31.4 MCHC 34.4 RDW 15.5 H Plt Count 288 Seg Neutrophils % 74.4 Lymphocytes % 16.5 Monocytes % 8.5 Eosinophils % 0.1 Basophils % 0.5 Absolute Neutrophils 3.1 Absolute Lymphocytes 0.7 Absolute Monocytes 0.4 Absolute Eosinophils 0.0 Absolute Basophils 0.0 Carbonic Acid 1.50 H HCO3/H2CO3 Ratio 19:1 ABG pH 7.38 ABG pCO2 49.8 H ABG pO2 72.2 L ABG HCO3 28.9 H ABG O2 Saturation 94.1 ABG Base Excess 3.3 FiO2 28% Sodium 140.2 Potassium 4.5 Chloride 102 Carbon Dioxide 26 Anion Gap 12 BUN 34 H Creatinine 1.38 H Est GFR ( Amer) 47 L Est GFR (Non-Af Amer) 38 L Glucose 324 H Calcium 8.8 Phosphorus 4.4 Magnesium 1.9 Total Bilirubin 0.3 AST 17 ALT 19 Alkaline Phosphatase 83 Total Protein 5.4 L Albumin 2.9 L Triglycerides 254 H Cholesterol 194.61 LDL Cholesterol Direct 84 VLDL Cholesterol 50.8 H HDL Cholesterol 64 02/07/18 02/07/18 02/07/18 16:00 16:00 21:58 CK-MB (CK-2) 0.73 0.72 Troponin I < 0.012 Cancelled < 0.012 02/08/18 03:57 CK-MB (CK-2) 0.62 Troponin I < 0.012 Impressions: Chest X-Ray 02/07/18 11:28 IMPRESSION: Low volume underpenetrated AP portable examination with probable retrocardiac atelectasis in the setting of cardiomegaly. There is no definite focal airspace opacity. This may be further evaluated by PA and lateral chest radiographs if desired. Chest/Abdomen CTA 02/07/18 12:36 IMPRESSION: No pulmonary emboli. Bilateral pleural effusions right greater than left with basilar compressive atelectasis. Marked cardiac enlargement with small pericardial effusion. Assessment & Plan - Diagnosis (1) Hypoxemia Is this a current diagnosis for this admission?: Yes Plan: 02/08/2018-patient was admitted with hypoxic hypercapnic respiratory failure may be secondary to CHF exacerbation. She will ABG this morning pH is 7.38/ PCO2 50/PO2 72 bicarb is 29. Initially she required BiPAP. Now she is on 2 L nasal cannula. She still uses BiPAP at night even at home. The echocardiogram , cardiology consult is pending. BNP is requested for today and tomorrow. Patient has a stress test done a few months ago post stress test left ventricular ejection fraction is 48% most likely systolic dysfunction. Chest CT shows cardiomegaly with small bilateral pleural effusions. Patient is on Lasix 40 mg IV every 8 hours, I decreased the frequency to every 12 hours today. Patient is complaining of short of breath with minimal activities like going to the restroom. I am going to request with a physical therapy consult. (2) Diabetes mellitus type 2 in obese Is this a current diagnosis for this admission?: Yes Plan: 02/08/2018 patient has history of type 2 diabetes mellitus she is not in any prednisone or IV steroids. blood sugars are 324 this morning she is on sliding scale, getting glargine insulin 70 units every 12 hours. Order for hemoglobin A1c for tomorrow. We will continue the present management today. (3) Acute UTI (urinary tract infection) Is this a current diagnosis for this admission?: Yes Plan: 02/08/2018-patient was on Levaquin 750 mg for UTI urine cultures are pending. She denies any fever. She is afebrile temperature is 97.6. (4) Morbid obesity Is this a current diagnosis for this admission?: Yes Plan: 02/08/2018-BMI is 50+. Diet and exercise weight loss was advised. Dietary consult was requested. (5) CHF (congestive heart failure) Qualifiers: Heart failure type: unspecified Is this a current diagnosis for this admission?: Yes Plan: 02/08/2018 latest stress test with EF of 48%. Patient says she does not know anything about congestive heart failure. She is not on Lasix at home. Requested for cardiology consult for further recommendations. Echocardiogram also requested. BNP was requested. We could check daily weights. (6) CKD (chronic kidney disease), stage III Is this a current diagnosis for this admission?: Yes Plan: 02/08/2018-patient has stage III CKD. The creatinine is 1.36 in November. On admission it was 1.1 today it was 1.38. We are going to continue to check renal panel and daily basis. This [place] may be secondary to CHF exacerbation. - Time Time Spent with patient: 15-24 minutes Medications reviewed and adjusted accordingly: Yes Anticipated discharge: Home
[2018-02-08] MEDS: AMLODIPINE BESYLATE 10 MG TABLET PO SCH (09:26)
[2018-02-08] MEDS: GABAPENTIN 300 MG CAPSULE PO SCH ×2 (09:26→22:56)
[2018-02-08] MEDS: ESCITALOPRAM OXALATE 10 MG TABLET PO SCH (09:26)
[2018-02-08] MEDS: HYDROCHLOROTHIAZIDE 25 MG TABLET PO SCH (09:26)
[2018-02-08] MEDS: LISINOPRIL 10 MG TABLET PO SCH (09:26)
[2018-02-08] MEDS: FAMOTIDINE 20 MG TABLET PO SCH ×2 (09:26→22:56)
[2018-02-08] MEDS: CARVEDILOL 6.25 MG TABLET PO SCH ×2 (09:26→22:56)
[2018-02-08] MEDS: ASPIRIN 325 MG TABLET, ENT COATED PO SCH (09:26)
[2018-02-08] MEDS: ENOXAPARIN SODIUM INJ 40 MG/0.4 ML DISP.SYRIN SUBCUT SCH (09:27)
[2018-02-08] MEDS: INSULIN GLARGINE,HUM.REC.ANLOG 1,000 UNIT/10 ML UNIT SUBCUT SCH ×2 (09:27→23:00)
[2018-02-08] MEDS: NITROGLYCERIN 2.5 MG (0.1 MG/HR) PATCH.TD24 TD SCH (09:36)
[2018-02-08] MEDS: INSULIN REG, HUMAN 100 UNIT/ML 3 ML VIAL (PYX) SUBCUT PRN ×3 (13:06→23:02)
[2018-02-08] MEDS: LEVOFLOXACIN 750 MG TABLET PO SCH (17:31)
[2018-02-08] MEDS: ATORVASTATIN CALCIUM 80 MG TABLET PO SCH (22:56)
[2018-02-09] MEDS: IPRATROPIUM/ALBUTEROL 0.5-2.5 MG/3 ML AMPUL NEB SCH ×3 (00:15→08:03)
[2018-02-09] MEDS: ONDANSETRON HCL INJ/PF 4 MG/2 ML SDV IV SCH ×6 (01:24→21:49)
[2018-02-09 05:33] LABS: ABSOLUTE LYMPHOCYTES (AUTO) 2.3 10^3/uL (0.5-4.7); ABSOLUTE MONOCYTES (AUTO) 0.8 10^3/uL (0.1-1.4); ABSOLUTE NEUT (AUTO) 3.8 10^3/uL (1.7-8.2); BASOPHILS % (AUTO) 0.6 % (0-2); EOSINOPHILS % (AUTO) 0.3 % (0-6); HEMATOCRIT 23.3 % (36.0-47.0); LYMPHOCYTES % (AUTO) 33.2 % (13-45); MEAN CORPUSCULAR HEMOGLOBIN 30.9 pg (27.0-33.4); MEAN CORPUSCULAR HGB CONC 33.8 g/dL (32.0-36.0); MEAN CORPUSCULAR VOLUME 91 fl (80-97); MONOCYTES % (AUTO) 11.5 % (3-13); PLATELET COUNT 281 10^3/uL (150-450); RED BLOOD COUNT 2.55 10^6/uL (3.72-5.28); SEGMENTED NEUTROPHILS % (AUTO) 54.4 % (42-78); TOTAL CELLS COUNTED % (AUTO) 100 %; WHITE BLOOD COUNT 7.1 10^3/uL (4.0-10.5)
[2018-02-09 05:35] LABS: HEMOGLOBIN 7.9 g/dL (12.0-15.5)
[2018-02-09 06:07] LABS: ALANINE AMINOTRANSFERASE 21 U/L (9-52); ALBUMIN 2.8 g/dL (3.5-5.0); ALKALINE PHOSPHATASE 76 U/L (38-126); ANION GAP 7 (5-19); ASPARTATE AMINO TRANSFERASE 16 U/L (14-36); BILIRUBIN,DIRECT 0.2 mg/dL (0.0-0.4); BILIRUBIN,TOTAL 0.2 mg/dL (0.2-1.3); BLOOD UREA NITROGEN 48 mg/dL (7-20); CALCIUM 8.8 mg/dL (8.4-10.2); CARBON DIOXIDE 30 mmol/L (22-30); CHLORIDE 103 mmol/L (98-107); GLUCOSE 165 mg/dL (75-110); POTASSIUM 4.2 mmol/L (3.6-5.0); SODIUM 140.4 mmol/L (137-145); TOTAL PROTEIN 5.5 g/dL (6.3-8.2)
[2018-02-09] MEDS ORDERED: NORMAL SALINE 250 ML IV PRN ×2 (08:13)
--- NOTE | 2018-02-09 08:27 | PDOC PROGRESS REPORT ---
Subjective Progress Note for:: 02/09/18 Subjective:: 62-year-old female with history of CHF admitted yesterday with complaints of severe shortness of breath, hypoxic hypercapnic respiratory failure requiring BiPAP. She is comfortably in the bed on 2 L nasal cannula today. Denies any complaints. She said she is feeling much better today. 02/09/2018-patient is comfortably in the chair on nasal cannula. Denies any complaints today. Except getting short winded when she has minimal activity. She is using IPAP CPAP at night. Reason For Visit: SOB,CHF Physical Exam Vital Signs: Temp Pulse Resp BP Pulse Ox 98.0 F 67 18 129/65 H 92 02/09/18 07:41 02/09/18 08:03 02/09/18 08:03 02/09/18 07:41 02/09/18 08:03 Intake & Output 02/08/18 02/09/18 02/10/18 06:59 06:59 06:59 Intake Total 950 755 Output Total 800 1200 Balance 150 -445 Weight 134.8 kg 135.5 kg General appearance: PRESENT: no acute distress Head exam: PRESENT: atraumatic Eye exam: PRESENT: PERRLA Mouth exam: PRESENT: moist Neck exam: ABSENT: carotid bruit, JVD, lymphadenopathy, thyromegaly Respiratory exam: PRESENT: decreased breath sounds Cardiovascular exam: PRESENT: RRR. ABSENT: diastolic murmur, rubs, systolic murmur GI/Abdominal exam: PRESENT: other - Soft nontender obese abdomen. Neurological exam: PRESENT: alert, awake, oriented to person, oriented to place , oriented to time, oriented to situation, CN II-XII grossly intact. ABSENT: motor sensory deficit Psychiatric exam: PRESENT: appropriate affect, normal mood. ABSENT: homicidal ideation, suicidal ideation Results Laboratory Results: 02/09/18 04:29 02/09/18 04:29 02/09/18 02/09/18 02/09/18 04:29 04:29 04:29 WBC 7.1 RBC 2.55 L Hgb 7.9 L Hct 23.3 L MCV 91 MCH 30.9 MCHC 33.8 RDW 16.0 H Plt Count 281 Seg Neutrophils % 54.4 Lymphocytes % 33.2 Monocytes % 11.5 Eosinophils % 0.3 Basophils % 0.6 Absolute Neutrophils 3.8 Absolute Lymphocytes 2.3 Absolute Monocytes 0.8 Absolute Eosinophils 0.0 Absolute Basophils 0.0 Sodium 140.4 Potassium 4.2 Chloride 103 Carbon Dioxide 30 Anion Gap 7 BUN 48 H Creatinine 2.04 H Est GFR ( Amer) 30 L Est GFR (Non-Af Amer) 25 L Glucose 165 H Calcium 8.8 Magnesium 2.0 Total Bilirubin 0.2 AST 16 ALT 21 Alkaline Phosphatase 76 Total Protein 5.5 L Albumin 2.8 L TSH 2.52 02/07/18 02/07/18 02/07/18 16:00 16:00 21:58 CK-MB (CK-2) 0.73 0.72 Troponin I < 0.012 Cancelled < 0.012 NT-Pro-B Natriuret Pep 02/08/18 02/08/18 03:57 03:57 CK-MB (CK-2) 0.62 Troponin I < 0.012 NT-Pro-B Natriuret Pep 2060 H Impressions: Chest X-Ray 02/07/18 11:28 IMPRESSION: Low volume underpenetrated AP portable examination with probable retrocardiac atelectasis in the setting of cardiomegaly. There is no definite focal airspace opacity. This may be further evaluated by PA and lateral chest radiographs if desired. Chest/Abdomen CTA 02/07/18 12:36 IMPRESSION: No pulmonary emboli. Bilateral pleural effusions right greater than left with basilar compressive atelectasis. Marked cardiac enlargement with small pericardial effusion. Assessment & Plan - Diagnosis (1) Hypoxemia Is this a current diagnosis for this admission?: Yes Plan: 02/08/2018-patient was admitted with hypoxic hypercapnic respiratory failure may be secondary to CHF exacerbation. She will ABG this morning pH is 7.38/ PCO2 50/PO2 72 bicarb is 29. Initially she required BiPAP. Now she is on 2 L nasal cannula. She still uses BiPAP at night even at home. The echocardiogram , cardiology consult is pending. BNP is requested for today and tomorrow. Patient has a stress test done a few months ago post stress test left ventricular ejection fraction is 48% most likely systolic dysfunction. Chest CT shows cardiomegaly with small bilateral pleural effusions. Patient is on Lasix 40 mg IV every 8 hours, I decreased the frequency to every 12 hours today. Patient is complaining of short of breath with minimal activities like going to the restroom. I am going to request with a physical therapy consult. 02/09/2018-patient's pulse ox is 92% on 3 L oxygen. He is using CPAP at night. She is getting nebulizations every 4 as needed. We are going to change to every 6 as needed. Patient says she is feeling much better but still start winded with minimal activity. Physical therapy is following the patient. The echocardiogram pending. (2) Diabetes mellitus type 2 in obese Is this a current diagnosis for this admission?: Yes Plan: 02/08/2018 patient has history of type 2 diabetes mellitus she is not in any prednisone or IV steroids. blood sugars are 324 this morning she is on sliding scale, getting glargine insulin 70 units every 12 hours. Order for hemoglobin A1c for tomorrow. We will continue the present management today. 02/08/2018-patient is getting insulin 70 units every 12 hours, insulin sliding scale before meals and at bedtime. Hemoglobin A1c 7.9. Latest blood sugar is 159. Continue the present management. (3) Acute UTI (urinary tract infection) Is this a current diagnosis for this admission?: Yes Plan: 02/08/2018-patient was on Levaquin 750 mg for UTI urine cultures are pending. She denies any fever. She is afebrile temperature is 97.6. 02/09/2018-urine cultures came back positive for gram-negative rods. Patient is on levofloxacillin 750 mg p.o. daily. She is afebrile. Temperature is 97.9. Will continue the present management. (4) Morbid obesity Is this a current diagnosis for this admission?: Yes Plan: 02/08/2018-BMI is 50+. Diet and exercise weight loss was advised. Dietary consult was requested. 02/09/2018 dietary consult was requested we continue the present plan. (5) CHF (congestive heart failure) Qualifiers: Heart failure type: unspecified Is this a current diagnosis for this admission?: Yes Plan: 02/08/2018 latest stress test with EF of 48%. Patient says she does not know anything about congestive heart failure. She is not on Lasix at home. Requested for cardiology consult for further recommendations. Echocardiogram also requested. BNP was requested. We could check daily weights. 02/09/2018-on examination chest was clear. No pedal edema. BNP is 2060. He is on Lasix 40 mg IV every 12 hours. His weight is 134.8 kg. She lost 0.5 cages since yesterday. (6) CKD (chronic kidney disease), stage III Is this a current diagnosis for this admission?: Yes Plan: 02/08/2018-patient has stage III CKD. The creatinine is 1.36 in November. On admission it was 1.1 today it was 1.38. We are going to continue to check renal panel and daily basis. This [place] may be secondary to CHF exacerbation. 02/09/2018-the creatinine worsened from 1.38-2.04 today. May be secondary to CHF exacerbation. Nephrology consult was requested. May be secondary to UTI. Be going to check daily renal panel. Renal ultrasound was requested. (7) Anemia, chronic disease Is this a current diagnosis for this admission?: Yes Plan: 02/09/2018-hemoglobin on admission is 10.2, today 7.9. Type and crossmatch was requested and requested 1 unit of blood transfusion. We are going to check stool for occult blood. - Time Time Spent with patient: 15-24 minutes Medications reviewed and adjusted accordingly: Yes Anticipated discharge: Home
[2018-02-09] MEDS ORDERED: IPRATROPIUM/ALBUTEROL 0.5-2.5 MG/3 ML AMPUL NEB PRN (08:31)
[2018-02-09 09:20] LABS: ABSOLUTE LYMPHOCYTES (AUTO) 2.6 10^3/uL (0.5-4.7); ABSOLUTE MONOCYTES (AUTO) 0.9 10^3/uL (0.1-1.4); ABSOLUTE NEUT (AUTO) 4.2 10^3/uL (1.7-8.2); BASOPHILS % (AUTO) 0.6 % (0-2); EOSINOPHILS % (AUTO) 0.6 % (0-6); HEMATOCRIT 25.3 % (36.0-47.0); HEMOGLOBIN 8.6 g/dL (12.0-15.5); LYMPHOCYTES % (AUTO) 33.8 % (13-45); MEAN CORPUSCULAR HEMOGLOBIN 31.1 pg (27.0-33.4); MEAN CORPUSCULAR VOLUME 92 fl (80-97); MONOCYTES % (AUTO) 11.2 % (3-13); PLATELET COUNT 316 10^3/uL (150-450); RED BLOOD COUNT 2.77 10^6/uL (3.72-5.28); RED CELL DISTRIBUTION WIDTH 15.8 % (11.5-14.0); SEGMENTED NEUTROPHILS % (AUTO) 53.8 % (42-78); TOTAL CELLS COUNTED % (AUTO) 100 %; WHITE BLOOD COUNT 7.8 10^3/uL (4.0-10.5)
[2018-02-09 09:38] LABS: ALANINE AMINOTRANSFERASE 22 U/L (9-52); ALBUMIN 3.4 g/dL (3.5-5.0); ALKALINE PHOSPHATASE 89 U/L (38-126); ANION GAP 10 (5-19); ASPARTATE AMINO TRANSFERASE 19 U/L (14-36); BILIRUBIN,DIRECT 0.2 mg/dL (0.0-0.4); BILIRUBIN,TOTAL 0.3 mg/dL (0.2-1.3); BLOOD UREA NITROGEN 48 mg/dL (7-20); CALCIUM 9.1 mg/dL (8.4-10.2); CARBON DIOXIDE 29 mmol/L (22-30); CHLORIDE 103 mmol/L (98-107); GLUCOSE 114 mg/dL (75-110); SODIUM 142.3 mmol/L (137-145); TOTAL PROTEIN 6.4 g/dL (6.3-8.2)
[2018-02-09] MEDS ORDERED: FUROSEMIDE 40 MG TABLET PO SCH (10:00)
[2018-02-09] MEDS ORDERED: (PENDING PHARMACY ID) (Lisinopril [Zestril] 40 MG) PO SCH (10:00)
[2018-02-09] MEDS: NITROGLYCERIN 2.5 MG (0.1 MG/HR) PATCH.TD24 TD SCH (10:40)
[2018-02-09] MEDS: GABAPENTIN 300 MG CAPSULE PO SCH ×2 (10:40→21:48)
[2018-02-09] MEDS: HYDROCHLOROTHIAZIDE 25 MG TABLET PO SCH (10:40)
[2018-02-09] MEDS: CARVEDILOL 6.25 MG TABLET PO SCH ×2 (10:40→22:30)
[2018-02-09] MEDS: LISINOPRIL 10 MG TABLET PO SCH (10:40)
[2018-02-09] MEDS: INSULIN GLARGINE,HUM.REC.ANLOG 1,000 UNIT/10 ML UNIT SUBCUT SCH ×2 (10:41→21:59)
[2018-02-09] MEDS: ASPIRIN 325 MG TABLET, ENT COATED PO SCH (10:41)
[2018-02-09] MEDS: AMLODIPINE BESYLATE 10 MG TABLET PO SCH (10:41)
[2018-02-09] MEDS: FAMOTIDINE 20 MG TABLET PO SCH ×2 (10:41→21:48)
[2018-02-09] MEDS: ESCITALOPRAM OXALATE 10 MG TABLET PO SCH (10:41)
[2018-02-09] MEDS: ENOXAPARIN SODIUM INJ 40 MG/0.4 ML DISP.SYRIN SUBCUT SCH (10:41)
[2018-02-09] MEDS: CETIRIZINE 10 MG TABLET PO SCH (10:41)
[2018-02-09] MEDS: EZETIMIBE 10 MG TABLET PO SCH (11:29)
--- NOTE | 2018-02-09 14:43 | RADIOLOGY REPORT (SQ) ---
EXAM DESCRIPTION: U/S RETROPERITON LTD COMPLETED DATE/TIME: 02/09/2018 2:22 pm REASON FOR STUDY: caren COMPARISON: None. TECHNIQUE: Dynamic and static grayscale images acquired of the kidneys and bladder and recorded on P ACS. Additional selected color Doppler and spectral images recorded. LIMITATIONS: Limited study due to patient's body habitus. FINDINGS: RIGHT KIDNEY: The right kidney measures 12.6 cm in length, normal size. Normal echogeni city. No solid or suspicious masses. No hydronephrosis. No calcifications. LEFT KIDNEY: The left kidney measures 9.1 cm in length, size may be underestimated due to limitation of the examination due to body habitus. . Normal echogenicity. No solid or suspicious masses. N o hydronephrosis. No calcifications. BLADDER: Not visualized due to body habitus. OTHER FINDINGS: No other significant finding. IMPRESSION: 1. The examination is limited due to the patient's body habitus. 2. No evidence of hydronephrosis. TECHNICAL DOCUMENTATION: JOB ID: [id number] [employer]- All Rights Reserved Reading location - IP/workstation name: [email or web address]
--- NOTE | 2018-02-09 15:08 | PDOC CONSULTATION ---
Consultation Consult Date: 02/09/18 Attending physician:: CASSI GRANADO Consult reason:: I was asked to see the patient because of worsening kidney function. History of Present Illness Admission Date/PCP: 02/07/18 15:55 SHLOMO MCKAY DO History of Present Illness: FINA HERNÁNDEZ is a 62 year old female with history of coronary artery disease , hypertension, diabetes mellitus type 2, obstructive sleep apnea but not using CPAP at home who presented to the emergency room 2 days ago with 1 week history of shortness of breath, cough, chest pains, and wheezing. Initial oxygen saturation in room air was 88-89%. She had chest x-ray done and subsequently a CTA of the chest with IV contrast on admission. The CTA was negative for acute pulmonary embolism but shows bilateral pleural effusion right greater than the left, mild cardiac enlargement and small pericardial effusion. Patient was initially on BiPAP but as her breathing improved she is currently now on nasal cannula only. She was treated with Lasix 40 mg IV every 8 hours which was subsequently changed to every 12 hours and today was switched to daily. Echocardiogram was done and is currently pending. She just got back from renal ultrasound and report is still pending as well. When she came in she had a BUN of 25, creatinine of 1.1 with estimated GFR of 50. Yesterday she had a BUN of 34, creatinine 1.38 and estimated GFR of 38 and today she had a BUN of 48, creatinine 2.04 and estimated GFR of 25. Review of records show that on December 29 her BUN was 25 and creatinine of 1.15 with estimated GFR 48. Further review of records show that her BUN ranges anywhere from 20-30s, creatinine ranged from 1.2 up to 1.3 and estimated GFR ranging anywhere from 39- 48%. Her urinalysis showed significant proteinuria greater than 500 and glucosuria with small amount of blood and nitrites. Urine cultures positive for E. coli. She is making urine although it seems to be decreased. Patient said that she is aware of some kind of kidney disease as she was told by her previous primary care physician is once tomorrow. She actually has seen missionary coordinator, Dr. Verduzco last year and was told to drink enough fluids but she did not follow-up. She admits urinary incontinence and noticing some foamy urine sometimes. She denies any hematuria. She does have leg swelling most of the time and when she came up 2 days ago it was worse but currently it is significantly improved after diuresis. He said her shortness of breath is slightly better because she is not short of breath while at rest but she still gets short of breath on minimal exertion. She denies use of nonsteroidal anti- inflammatory agents. She denies any chest pains currently. She denies any history of hepatitis. Her appetite is good. Past Medical History Cardiac Medical History: Reports: Coronary Artery Disease - high chol, Hyperlipidemia, Hypertension-primary Pulmonary Medical History: Reports: Sleep Apnea - Not using CPAP at home Endocrine Medical History: Reports: Diabetes Mellitus Type 2 Renal/ Medical History: Reports: Chronic Kidney Disease Stage III Musculoskeltal Medical History: Reports: Arthritis Psychiatric Medical History: Reports: Depression Past Surgical History Past Surgical History: Reports: Cholecystectomy - Gallbladder Sx, Tonsillectomy , Tubal Ligation, Other - Carpal tunnel Social History Information Source: Patient Lives with: Family - Lives with her daughter, son-in-law, grandchildren and another son Smoking Status: Never Smoker Frequency of Alcohol Use: None Hx Recreational Drug Use: No Drugs: None Hx Prescription Drug Abuse: No - Advance Directive Resuscitation Status: Full Code Family History Family History: DM - Father and mother, Hypertension - Father and mother, Malignancy - Kidney cancer on her father Parental Family History Reviewed: Yes Children Family History Reviewed: Yes Sibling(s) Family History Reviewed.: Yes Medication/Allergy Home Medications: Cetirizine HCl [Zyrtec 10 mg Tablet] 10 mg PO DAILY 02/08/18 Ezetimibe [Zetia 10 mg Tablet] 10 mg PO DAILY 02/08/18 Gabapentin [Neurontin 300 mg Capsule] 600 mg PO QPM 02/08/18 Gabapentin [Neurontin 300 mg Capsule] 900 mg PO QAM 02/08/18 Insulin Glargine,Hum.rec.anlog [Lantus Insulin 100 Unit/mL] 50 units SQ QPM 12/17 Insulin Glargine,Hum.rec.anlog [Lantus Insulin 100 Unit/mL] 70 units SQ QAM 12/17 Lisinopril [Zestril] 40 mg PO DAILY 02/08/18 Metformin HCl [Glucophage] 1,000 mg PO Q12 02/08/18 Metronidazole [Flagyl 500 mg Tablet] 500 mg PO Q12 02/08/18 Pantoprazole Sodium [Protonix] 40 mg PO DAILY 02/08/18 Tramadol HCl [Ultram 50 mg Tablet] 50 mg PO Q12HP PRN 02/08/18 Allergies/Adverse Reactions: No Known Allergies Allergy (Verified 02/07/18 11:14) Review of Systems All systems: reviewed and no additional remarkable complaints except as stated Review of Systems: Constitutional: ABSENT: chills, fatigue, fever(s), headache(s), weight gain, weight loss Eyes: ABSENT: visual disturbances Ears: ABSENT: hearing changes Cardiovascular: ABSENT: chest pain, orthropnea, palpitations; admits to dyspnea on exertion and edema Respiratory: ABSENT: Hemoptysis; admits cough Gastrointestinal: ABSENT: abdominal pain, constipation, diarrhea, hematemesis, hematochezia, nausea, vomiting Genitourinary: ABSENT: dysuria, hematuria Musculoskeletal: ABSENT: joint swelling Integumentary: ABSENT: rash, wounds Neurological: ABSENT: abnormal gait, abnormal speech, confusion, dizziness, focal weakness, numbness, syncope Psychiatric: ABSENT: anxiety, depression Endocrine: ABSENT: cold intolerance, heat intolerance, polydipsia, polyuria Hematologic/Lymphatic: ABSENT: easy bleeding, easy bruising, lymphadenopathy Physical Exam Vital Signs: Temp Pulse Resp BP Pulse Ox 98.0 F 68 23 H 130/61 H 95 02/09/18 11:56 02/09/18 11:56 02/09/18 11:56 02/09/18 11:56 02/09/18 11:56 Intake & Output 02/08/18 02/09/18 02/10/18 06:59 06:59 06:59 Intake Total 950 755 277 Output Total 800 1200 600 Balance 150 445 -323 Weight 134.8 kg 135.5 kg Exam: General appearance: No acute distress, cooperative, well-developed, well- nourished Head exam: PRESENT: atraumatic, normocephalic Eye exam: PRESENT: Conjunctiva pale, EOMI, PERRLA. ABSENT: conjunctival injection, scleral icterus Mouth exam: PRESENT: moist, neck supple, tongue midline Neck exam: PRESENT: full ROM. ABSENT: carotid bruit, JVD, lymphadenopathy, thyromegaly Respiratory exam: PRESENT: Diminished to auscultation bilaterally. ABSENT: rales, rhonchi, stridor, wheezes Cardiovascular exam: PRESENT: RRR, soft +S1, +S2. ABSENT: systolic murmur Pulses: PRESENT: normal radial pulses, normal dorsalis pedis pulses GI/Abdominal exam: PRESENT: normal bowel sounds, soft. ABSENT: guarding, mass, tenderness Rectal exam: Deferred Extremities exam: PRESENT: full ROM. Trace to grade 1 bilateral lower extremity edema reportedly improved from admission ABSENT: calf tenderness Musculoskeletal: PRESENT: full ROM. ABSENT: deformity Neurological exam: PRESENT: alert, Awake, Oriented to person, Oriented to place , Oriented to time, reflexes normal, CN II-XII grossly intact. ABSENT: motor sensory deficit Psychiatric exam: PRESENT: appropriate affect, normal mood. ABSENT: homicidal ideation, suicidal ideation Skin exam: PRESENT: intact, dry, warm. ABSENT: rash Results Laboratory Results: 02/09/18 08:57 02/09/18 08:57 02/09/18 02/09/18 02/09/18 04:29 04:29 04:29 WBC 7.1 RBC 2.55 L Hgb 7.9 L Hct 23.3 L MCV 91 MCH 30.9 MCHC 33.8 RDW 16.0 H Plt Count 281 Seg Neutrophils % 54.4 Lymphocytes % 33.2 Monocytes % 11.5 Eosinophils % 0.3 Basophils % 0.6 Absolute Neutrophils 3.8 Absolute Lymphocytes 2.3 Absolute Monocytes 0.8 Absolute Eosinophils 0.0 Absolute Basophils 0.0 Sodium 140.4 Potassium 4.2 Chloride 103 Carbon Dioxide 30 Anion Gap 7 BUN 48 H Creatinine 2.04 H Est GFR ( Amer) 30 L Est GFR (Non-Af Amer) 25 L Glucose 165 H Calcium 8.8 Magnesium 2.0 Total Bilirubin 0.2 AST 16 ALT 21 Alkaline Phosphatase 76 Total Protein 5.5 L Albumin 2.8 L TSH 2.52 Blood Type Antibody Screen 02/09/18 02/09/18 02/09/18 08:57 08:57 08:57 WBC 7.8 RBC 2.77 L Hgb 8.6 L Hct 25.3 L MCV 92 MCH 31.1 MCHC 34.0 RDW 15.8 H Plt Count 316 Seg Neutrophils % 53.8 Lymphocytes % 33.8 Monocytes % 11.2 Eosinophils % 0.6 Basophils % 0.6 Absolute Neutrophils 4.2 Absolute Lymphocytes 2.6 Absolute Monocytes 0.9 Absolute Eosinophils 0.0 Absolute Basophils 0.0 Sodium 142.3 Potassium 4.0 Chloride 103 Carbon Dioxide 29 Anion Gap 10 BUN 48 H Creatinine 2.04 H Est GFR ( Amer) 30 L Est GFR (Non-Af Amer) 25 L Glucose 114 H Calcium 9.1 Magnesium 2.0 Total Bilirubin 0.3 AST 19 ALT 22 Alkaline Phosphatase 89 Total Protein 6.4 Albumin 3.4 L TSH Blood Type O NEGATIVE Antibody Screen NEGATIVE 02/07/18 02/07/18 02/07/18 16:00 16:00 21:58 CK-MB (CK-2) 0.73 0.72 Troponin I < 0.012 Cancelled < 0.012 NT-Pro-B Natriuret Pep 02/08/18 02/08/18 03:57 03:57 CK-MB (CK-2) 0.62 Troponin I < 0.012 NT-Pro-B Natriuret Pep 2060 H Impressions: Chest X-Ray 02/07/18 11:28 IMPRESSION: Low volume underpenetrated AP portable examination with probable retrocardiac atelectasis in the setting of cardiomegaly. There is no definite focal airspace opacity. This may be further evaluated by PA and lateral chest radiographs if desired. Chest/Abdomen CTA 02/07/18 12:36 IMPRESSION: No pulmonary emboli. Bilateral pleural effusions right greater than left with basilar compressive atelectasis. Marked cardiac enlargement with small pericardial effusion. Renal Ultrasound 02/09/18 00:00 IMPRESSION: 1. The examination is limited due to the patient's body habitus. 2. No evidence of hydronephrosis. Assessment & Plan - Diagnosis (1) Acute kidney injury superimposed on chronic kidney disease Is this a current diagnosis for this admission?: Yes Plan: Acute worsening of kidney function is multifactorial. Possible causative factors include contrast-induced nephropathy from CTA causing ATN, congestive heart failure, and diuretics. Currently nonoliguric. No indication for any acute or urgent renal replacement therapy at this time. Continue to monitor kidney function and electrolytes. Adjust medications and antibiotics accordingly with respect to kidney function. Follow-up results of kidney ultrasound. (2) CKD (chronic kidney disease), stage III Is this a current diagnosis for this admission?: Yes Plan: Associated with some proteinuria most likely secondary to underlying diabetic nephropathy and effect of hypertension causing nephrosclerosis. Check urine for protein creatinine ratio and protein electrophoresis. (3) CHF (congestive heart failure) Qualifiers: Heart failure type: unspecified Is this a current diagnosis for this admission?: Yes Plan: Last LVEF was 48%. Currently improved and clinically compensated. Agree with decreasing the dose of furosemide. (4) Diabetes mellitus type 2 in obese Is this a current diagnosis for this admission?: Yes Plan: Uncontrolled with hemoglobin A1c of 7.9. Advised patient the need for better control. (5) Acute UTI (urinary tract infection) Is this a current diagnosis for this admission?: Yes Plan: Due to E. coli currently on antibiotics. (6) Anemia, chronic disease Is this a current diagnosis for this admission?: Yes Plan: Check iron panel. Patient might benefit from iron and Procrit. (7) Hypertension Is this a current diagnosis for this admission?: Yes Plan: Acceptable control. (8) NILO (obstructive sleep apnea) Is this a current diagnosis for this admission?: Yes Plan: Agree with BiPAP during sleep. - Notes Notes: Thank you very much for this consultation. I will follow the patient with you. - Time Time Spent: Greater than 70 Minutes
[2018-02-09] MEDS: PIPERACILLIN SODIUM/TAZOBACTAM 3.375 GM in NORMAL SALINE 100 ML IV SCH ×2 (17:54→23:16)
[2018-02-09] MEDS ORDERED: GABAPENTIN 300 MG CAPSULE PO SCH (18:00)
[2018-02-09] MEDS ORDERED: PIPERACILLIN/TAZOBACTAM 3.375 GM VIAL IV SCH (18:00)
--- NOTE | 2018-02-09 21:35 | XCELERA REPORT ---
[address] [address] Transthoracic Echocardiogram Report Name: FINA HERNÁNDEZ Age: 62 yrs Gender: Female : 1955 Patient Status: Inpatient Patient Location: [address] [place] [address] Study Date: 02/09/2018 09:07 AM Height: 64 in Weight: 297 lb BSA: 2.3 m2 Procedure: A two-dimensional transthoracic echocardiogram with color flow and Doppler was performed. Study Quality: Poor. Images were not obtained from all of the standard acoustic windows due to the limited scope of the study. Reason For Study: CHF History: CHF. Ordering Physician: BOB YBARRA Performed By: Ismael Rodriges Interpretation Summary Images were not obtained from all of the standard acoustic windows due to the limited scope of the study. CHF The left ventricle is grossly normal size. There is normal left ventricular wall thickness. No True apical 2 chamber views obtained.Hence cannot comment on the apical anterior , the basal anterior, the basal inferior and apical inferior ray.The mid anterior , the mid inferior and the rest of the LV ray contract normally. .Normal LVEF is normal and is greater thn 60% in the limited views. Doppler measurements suggest normal left ventricular diastolic function The right ventricle is not well visualized secondary to technical limitations Right atrium not well visualized secondary to technical limitations The left atrial size is normal. There is no evidence of mitral valve prolapse. There is no mitral valve stenosis. There is no aortic valvular vegetation. There is no aortic valve stenosis There is no LVOT obstruction. No aortic regurgitation is present. The tricuspid valve is not well visualized secondary to technical limitations There is no tricuspid stenosis. There is a trace to mild amount of tricuspid regurgitation There is servere pulmonary hypertension by echo RVSP is 100 to 105 with RA mean of 15 to 20. There is a trace amount of pulmonic regurgitation There is no pulmonic valvular stenosis. The aortic root is not well visualized. There is no pericardial effusion. MMode/2D Measurements & Calculations RVDd: 4.1 cm LVIDd: 5.4 cm FS: 36.0 % Ao root diam: 3.0 cm IVSd: 0.90 cm LVIDs: 3.4 cm EDV(Teich): 140.0 ml Ao root area: 7.0 cm2 LVPWd: 1.2 cm ESV(Teich): 48.8 ml LA dimension: 3.9 cm EF(Teich): 65.1 % Doppler Measurements & Calculations MV E max oksana: MV P1/2t max oksana: Ao V2 max: LV V1 max P.5 cm/sec 136.1 cm/sec 128.3 cm/sec 3.5 mmHg MV A max oksana: MV P1/2t: 47.6 msec Ao max PG: LV V1 max: 83.6 cm/sec MVA(P1/2t): 4.6 cm2 6.6 mmHg 93.1 cm/sec MV E/A: 1.5 MV dec slope: LV dP/dt: 757.0 mmHg/s 837.2 cm/sec2 MV dec time: 0.17 sec PA V2 max: PI end-d kosana: TR max oksana: MV P1/2t-pr_phl: 76.4 cm/sec 117.3 cm/sec 459.0 cm/sec 47.6 msec PA max P.3 mmHg TR max P.3 mmHg Left Ventricle The left ventricle is grossly normal size. There is normal left ventricular wall thickness. No True apical 2 chamber views obtained.Hence cannot comment on the apical anterior , the basal anterior, the basal inferior and apical inferior ray.The mid anterior , the mid inferior and the rest of the LV ray contract normally. .Normal LVEF is normal and is greater thn 60% in the limited views. Doppler measurements suggest normal left ventricular diastolic function. Right Ventricle The right ventricle is not well visualized secondary to technical limitations. Atria Right atrium not well visualized secondary to technical limitations. The left atrial size is normal. Mitral Valve There is no evidence of mitral valve prolapse. There is no mitral valve stenosis. There is a trace amount of mitral regurgitation. Aortic Valve There is no aortic valvular vegetation. There is no aortic valve stenosis. There is no LVOT obstruction. No aortic regurgitation is present. Tricuspid Valve The tricuspid valve is not well visualized secondary to technical limitations. There is no tricuspid stenosis. There is a trace to mild amount of tricuspid regurgitation. There is servere pulmonary hypertension by echo. RVSP is 100 to 105 with RA mean of 15 to 20. Pulmonic Valve There is no pulmonic valvular stenosis. There is a trace amount of pulmonic regurgitation. Great Vessels The aortic root is not well visualized. The inferior vena cava appeared dilated and decreased < 50% with respiration (RAP 15-20 mmHg). Effusions There is no pericardial effusion. : BOB YBARRA > Nicole Rodriguez
[2018-02-09 21:46] LABS: UR PRO/CREAT RATIO RESULT 2.6 mg/mg (0.0-0.2); URINE CREATININE 66.8 mg/dL (15-278)
[2018-02-09] MEDS: ATORVASTATIN CALCIUM 80 MG TABLET PO SCH (21:48)
[2018-02-10] MEDS: ONDANSETRON HCL INJ/PF 4 MG/2 ML SDV IV SCH ×6 (02:00→22:34)
[2018-02-10] MEDS: PIPERACILLIN SODIUM/TAZOBACTAM 3.375 GM in NORMAL SALINE 100 ML IV SCH (05:09)
[2018-02-10 05:11] LABS: ABSOLUTE BASOPHILS # (AUTO) 0.1 10^3/uL (0.0-0.2); ABSOLUTE EOSINOPHILS # (AUTO) 0.1 10^3/uL (0.0-0.6); ABSOLUTE LYMPHOCYTES (AUTO) 2.7 10^3/uL (0.5-4.7); ABSOLUTE MONOCYTES (AUTO) 0.9 10^3/uL (0.1-1.4); ABSOLUTE NEUT (AUTO) 4.1 10^3/uL (1.7-8.2); ABSOLUTE RETICS # 0.042 10^6/uL (0.028-0.122); BASOPHILS % (AUTO) 0.8 % (0-2); EOSINOPHILS % (AUTO) 1.4 % (0-6); HEMATOCRIT 22.6 % (36.0-47.0); MEAN CORPUSCULAR HEMOGLOBIN 31.8 pg (27.0-33.4); MEAN CORPUSCULAR HGB CONC 34.6 g/dL (32.0-36.0); MEAN CORPUSCULAR VOLUME 92 fl (80-97); MONOCYTES % (AUTO) 10.9 % (3-13); PLATELET COUNT 275 10^3/uL (150-450); RED BLOOD COUNT 2.46 10^6/uL (3.72-5.28); RED CELL DISTRIBUTION WIDTH 15.7 % (11.5-14.0); SEGMENTED NEUTROPHILS % (AUTO) 52.9 % (42-78); TOTAL CELLS COUNTED % (AUTO) 100 %; WHITE BLOOD COUNT 7.8 10^3/uL (4.0-10.5)
[2018-02-10 05:22] LABS: HEMOGLOBIN 7.8 g/dL (12.0-15.5)
[2018-02-10 05:25] LABS: ANION GAP 5 (5-19); BLOOD UREA NITROGEN 57 mg/dL (7-20); CALCIUM 8.6 mg/dL (8.4-10.2); CARBON DIOXIDE 32 mmol/L (22-30); CHLORIDE 105 mmol/L (98-107); GLUCOSE 55 mg/dL (75-110); IRON(TIBC) 46.5 ug/dL (37-170); POTASSIUM 3.9 mmol/L (3.6-5.0); SODIUM 141.8 mmol/L (137-145)
[2018-02-10 06:31] LABS: FOLATE 7.92 ng/mL (>2.76)
--- NOTE | 2018-02-10 08:32 | PDOC PROGRESS REPORT ---
Subjective Progress Note for:: 02/10/18 Subjective:: 62-year-old female with history of CHF admitted yesterday with complaints of severe shortness of breath, hypoxic hypercapnic respiratory failure requiring BiPAP. She is comfortably in the bed on 2 L nasal cannula today. Denies any complaints. She said she is feeling much better today. 02/09/2018-patient is comfortably in the chair on nasal cannula. Denies any complaints today. Except getting short winded when she has minimal activity. She is using--CPAP at night. 02/10/[id number]-[id number]-old female with history of CHF EF of 48% admitted for severe shortness of breath, hypoxic hypercapnic respiratory failure requiring BiPAP. Today patient says she is not feeling well. Denies any chest pains. Denies any increased shortness of breath. Her blood sugars dropped this morning to 70s. Latest blood sugars are close to 100. Her heart rate is also down to 45 as per the nursing charge. Yesterday's change antibiotics based on ESBL E. coli in the urine. She was started on Zosyn based on the urine culture report. A consult was done. The concern about AK I may be secondary to CTA that was done during the hospital stay, congestive heart failure, diuretic therapy. Reason For Visit: SOB,CHF Physical Exam Vital Signs: Temp Pulse Resp BP Pulse Ox 98.1 F 54 L 13 109/55 L 97 02/10/18 03:29 02/10/18 03:29 02/10/18 04:14 02/10/18 03:29 02/10/18 03:29 Intake & Output 02/09/18 02/10/18 02/11/18 06:59 06:59 06:59 Intake Total 755 1250 Output Total 1200 2450 Balance -445 -1200 Weight 135.5 kg 135.3 kg General appearance: PRESENT: no acute distress Head exam: PRESENT: atraumatic Eye exam: PRESENT: PERRLA Neck exam: ABSENT: carotid bruit, JVD, lymphadenopathy, thyromegaly Respiratory exam: PRESENT: clear to auscultation vadim. ABSENT: rales, rhonchi, wheezes Cardiovascular exam: PRESENT: bradycardia, other - Heart rate is in the 50s. GI/Abdominal exam: PRESENT: other - Obese abdomen soft nontender. Extremities exam: PRESENT: other - No pedal edema. Neurological exam: PRESENT: alert, awake, oriented to person, oriented to place , oriented to time, oriented to situation, CN II-XII grossly intact. ABSENT: motor sensory deficit Psychiatric exam: PRESENT: appropriate affect, normal mood. ABSENT: homicidal ideation, suicidal ideation Results Laboratory Results: 02/10/18 04:25 02/10/18 04:25 02/09/18 02/09/18 02/09/18 08:57 08:57 08:57 WBC 7.8 RBC 2.77 L Hgb 8.6 L Hct 25.3 L MCV 92 MCH 31.1 MCHC 34.0 RDW 15.8 H Plt Count 316 Seg Neutrophils % 53.8 Lymphocytes % 33.8 Monocytes % 11.2 Eosinophils % 0.6 Basophils % 0.6 Absolute Neutrophils 4.2 Absolute Lymphocytes 2.6 Absolute Monocytes 0.9 Absolute Eosinophils 0.0 Absolute Basophils 0.0 Retic Count (auto) Absolute Retic Sodium 142.3 Potassium 4.0 Chloride 103 Carbon Dioxide 29 Anion Gap 10 BUN 48 H Creatinine 2.04 H Est GFR ( Amer) 30 L Est GFR (Non-Af Amer) 25 L Glucose 114 H Calcium 9.1 Magnesium 2.0 Iron TIBC % Saturation Ferritin Total Bilirubin 0.3 AST 19 ALT 22 Alkaline Phosphatase 89 Total Protein 6.4 Albumin 3.4 L Vitamin B12 Folate Blood Type O NEGATIVE Antibody Screen NEGATIVE 02/10/18 02/10/18 04:25 04:25 WBC 7.8 RBC 2.46 L Hgb 7.8 L Hct 22.6 L MCV 92 MCH 31.8 MCHC 34.6 RDW 15.7 H Plt Count 275 Seg Neutrophils % 52.9 Lymphocytes % 34.0 Monocytes % 10.9 Eosinophils % 1.4 Basophils % 0.8 Absolute Neutrophils 4.1 Absolute Lymphocytes 2.7 Absolute Monocytes 0.9 Absolute Eosinophils 0.1 Absolute Basophils 0.1 Retic Count (auto) 1.70 Absolute Retic 0.042 Sodium 141.8 Potassium 3.9 Chloride 105 Carbon Dioxide 32 H Anion Gap 5 BUN 57 H Creatinine 2.35 H Est GFR ( Amer) 25 L Est GFR (Non-Af Amer) 21 L Glucose 55 L Calcium 8.6 Magnesium Iron 46.5 TIBC 274 % Saturation 17 Ferritin 101.00 Total Bilirubin AST ALT Alkaline Phosphatase Total Protein Albumin Vitamin B12 214.0 L Folate 7.92 Blood Type Antibody Screen 02/07/18 02/07/18 02/07/18 16:00 16:00 21:58 CK-MB (CK-2) 0.73 0.72 Troponin I < 0.012 Cancelled < 0.012 NT-Pro-B Natriuret Pep 02/08/18 02/08/18 03:57 03:57 CK-MB (CK-2) 0.62 Troponin I < 0.012 NT-Pro-B Natriuret Pep 2060 H Impressions: Chest X-Ray 02/07/18 11:28 IMPRESSION: Low volume underpenetrated AP portable examination with probable retrocardiac atelectasis in the setting of cardiomegaly. There is no definite focal airspace opacity. This may be further evaluated by PA and lateral chest radiographs if desired. Chest/Abdomen CTA 02/07/18 12:36 IMPRESSION: No pulmonary emboli. Bilateral pleural effusions right greater than left with basilar compressive atelectasis. Marked cardiac enlargement with small pericardial effusion. Renal Ultrasound 02/09/18 00:00 IMPRESSION: 1. The examination is limited due to the patient's body habitus. 2. No evidence of hydronephrosis. Assessment & Plan - Diagnosis (1) Acute kidney injury superimposed on chronic kidney disease Is this a current diagnosis for this admission?: Yes Plan: 02/10/2018-since creatinine today is 2.35. Admission creatinine is 1.1. She has underlying stage III kidney disease. But during the hospital stay creatinine continued to rise may be secondary to CTA that was done during the hospital stay, diuretic therapy, and CHF. Nephrology consult was requested. As per the recommendations were going to check urine protein creatinine ratio protein electrophoresis. As per the photogrammetric technician there is no emergent need for dialysis. Patient with blood pressures were running low today. I discontinue her Lasix today. We are going to continue to monitor her renal function on daily basis. Continue lisinopril because of the KEYON.. Patient is nonoliguric urinary output is 2.4 L yesterday. Going to put her on fluid restriction 1.5 L/ day. The renal ultrasound was done yesterday no hydronephrosis was noted. . (2) Hypoxemia Is this a current diagnosis for this admission?: Yes Plan: 02/08/2018-patient was admitted with hypoxic hypercapnic respiratory failure may be secondary to CHF exacerbation. She will ABG this morning pH is 7.38/ PCO2 50/PO2 72 bicarb is 29. Initially she required BiPAP. Now she is on 2 L nasal cannula. She still uses BiPAP at night even at home. The echocardiogram , cardiology consult is pending. BNP is requested for today and tomorrow. Patient has a stress test done a few months ago post stress test left ventricular ejection fraction is 48% most likely systolic dysfunction. Chest CT shows cardiomegaly with small bilateral pleural effusions. Patient is on Lasix 40 mg IV every 8 hours, I decreased the frequency to every 12 hours today. Patient is complaining of short of breath with minimal activities like going to the restroom. I am going to request with a physical therapy consult. 02/09/2018-patient's pulse ox is 92% on 3 L oxygen. He is using CPAP at night. She is getting nebulizations every 4 as needed. We are going to change to every 6 as needed. Patient says she is feeling much better but still start winded with minimal activity. Physical therapy is following the patient. The echocardiogram pending. 02/10/[id number]-blfy-old female admitted with acute on chronic respiratory failure with hypoxia and hypercapnia. Patient still using BiPAP on as needed basis. She is getting nebulizations every 6 as needed. Pulse ox on BiPAP this morning is 97%. Cardiogram shows EF of 60% with left ventricular diastolic dysfunction. I am going to request for follow-up chest x-ray today. Plan is to continue the nebulizations, oxygen via nasal cannula to titrate as needed and continue BiPAP on as needed basis. (3) Diabetes mellitus type 2 in obese Is this a current diagnosis for this admission?: Yes Plan: 02/08/2018 patient has history of type 2 diabetes mellitus she is not in any prednisone or IV steroids. blood sugars are 324 this morning she is on sliding scale, getting glargine insulin 70 units every 12 hours. Order for hemoglobin A1c for tomorrow. We will continue the present management today. 02/08/2018-patient is getting insulin 70 units every 12 hours, insulin sliding scale before meals and at bedtime. Hemoglobin A1c 7.9. Latest blood sugar is 159. Continue the present management. 02/10/2018-patient has history of type 2 diabetes mellitus she is on Lantus 70 units subcu twice a day, she is also on NovoLog 35 units before meals at home. Here in this hospital she is getting only Lantus 70 units subcu twice a day. This morning her blood sugars dropped to 70s. Recheck blood sugar is 100. Patient said she did not miss any meals yesterday she ate good breakfast lunch and dinner. We will continue the present management. I have to mention patient is also on sliding scaleCOVERAGEbefore meals and at bedtime. Patient's hemoglobin A1c is 7.9. (4) Acute UTI (urinary tract infection) Is this a current diagnosis for this admission?: Yes Plan: 02/08/2018-patient was on Levaquin 750 mg for UTI urine cultures are pending. She denies any fever. She is afebrile temperature is 97.6. 02/09/2018-urine cultures came back positive for gram-negative rods. Patient is on levofloxacillin 750 mg p.o. daily. She is afebrile. Temperature is 97.9. Will continue the present management. 02/10/2018-the urine cultures came back positive for ESBL E. coli. Resistant to levofloxacin and. Sensitivity to Zosyn. The levofloxacin was discontinued and Zosyn was started yesterday. (5) Morbid obesity Is this a current diagnosis for this admission?: Yes Plan: 02/08/2018-BMI is 50+. Diet and exercise weight loss was advised. Dietary consult was requested. 02/09/2018 dietary consult was requested we continue the present plan. 02/10/2018-patient's BMI is more than 50 dietary consult was requested. hospital educator consult was requested. Patient's weight today is 135.3 kg. Diet exercise weight loss was advised. (6) CHF (congestive heart failure) Qualifiers: Heart failure type: unspecified Is this a current diagnosis for this admission?: Yes Plan: 02/08/2018 latest stress test with EF of 48%. Patient says she does not know anything about congestive heart failure. She is not on Lasix at home. Requested for cardiology consult for further recommendations. Echocardiogram also requested. BNP was requested. We could check daily weights. 02/09/2018-on examination chest was clear. No pedal edema. BNP is 2060. He is on Lasix 40 mg IV every 12 hours. His weight is 134.8 kg. She lost 0.5 kg since yesterday. 02/10/2018-echocardiogram was done left ventricular ejection fraction is more than 60% the impression is left ventricular diastolic dysfunction. She is not in fluid overload on examination. (7) CKD (chronic kidney disease), stage III Is this a current diagnosis for this admission?: Yes Plan: 02/08/2018-patient has stage III CKD. The creatinine is 1.36 in November. On admission it was 1.1 today it was 1.38. We are going to continue to check renal panel and daily basis. This [place] may be secondary to CHF exacerbation. 02/09/2018-the creatinine worsened from 1.38-2.04 today. May be secondary to CHF exacerbation. Nephrology consult was requested. May be secondary to UTI. Be going to check daily renal panel. Renal ultrasound was requested. 02/10/2018-today's creatinine is 2.35. It is may be secondary to multifactorial. Likely CHF exacerbation, diuretic therapy, UTI, CTA that was done during the hospital stay. The lisinopril was discontinued for the time being. Lasix was also on hold. (8) Anemia, chronic disease Is this a current diagnosis for this admission?: Yes Plan: 02/09/2018-hemoglobin on admission is 10.2, today 7.9. Type and crossmatch was requested and requested 1 unit of blood transfusion. We are going to check stool for occult blood. 02/10/2018-yesterday initial hemoglobin is 7.9 and repeat hemoglobin come back as 8.6 so we withheld blood transfusion. Today's hemoglobin is 7.8 and patient looks pale and clammy, she is going to get 1 unit of PRBC today. Going to continue to check CBC done on daily basis. Iron levels were requested. (9) Bradycardia Is this a current diagnosis for this admission?: Yes Plan: 1211 2017-2 days patient's heart rate went down to 45. Patient is asymptomatic denies any chest pains. I stopped Coreg. We are going to continue amlodipine. Also stop Lasix. Cardiac enzymes were requested. As I mentioned above echocardiogram with EF of 60% - Time Time Spent with patient: 15-24 minutes Medications reviewed and adjusted accordingly: Yes Anticipated discharge: Home
[2018-02-10] MEDS: ESCITALOPRAM OXALATE 10 MG TABLET PO SCH (09:30)
[2018-02-10] MEDS: GABAPENTIN 300 MG CAPSULE PO SCH ×2 (09:30→22:11)
[2018-02-10] MEDS: ASPIRIN 325 MG TABLET, ENT COATED PO SCH (09:30)
[2018-02-10] MEDS: HYDROCHLOROTHIAZIDE 25 MG TABLET PO SCH (09:31)
[2018-02-10] MEDS: ENOXAPARIN SODIUM INJ 40 MG/0.4 ML DISP.SYRIN SUBCUT SCH (09:31)
[2018-02-10] MEDS: FAMOTIDINE 20 MG TABLET PO SCH ×2 (09:31→22:11)
[2018-02-10] MEDS: INSULIN GLARGINE,HUM.REC.ANLOG 1,000 UNIT/10 ML UNIT SUBCUT SCH ×2 (09:31→22:14)
[2018-02-10] MEDS: AMLODIPINE BESYLATE 10 MG TABLET PO SCH (09:31)
[2018-02-10] MEDS: CETIRIZINE 10 MG TABLET PO SCH (09:31)
[2018-02-10] MEDS: EZETIMIBE 10 MG TABLET PO SCH (09:32)
[2018-02-10 09:38] LABS: ALANINE AMINOTRANSFERASE 25 U/L (9-52); ALBUMIN 3.1 g/dL (3.5-5.0); ALKALINE PHOSPHATASE 71 U/L (38-126); ANION GAP 11 (5-19); ASPARTATE AMINO TRANSFERASE 18 U/L (14-36); BILIRUBIN,DIRECT 0.2 mg/dL (0.0-0.4); BILIRUBIN,TOTAL 0.3 mg/dL (0.2-1.3); BLOOD UREA NITROGEN 55 mg/dL (7-20); CALCIUM 8.7 mg/dL (8.4-10.2); CARBON DIOXIDE 29 mmol/L (22-30); CHLORIDE 103 mmol/L (98-107); CREATINE KINASE 73 U/L (30-135); GLUCOSE 94 mg/dL (75-110); POTASSIUM 4.2 mmol/L (3.6-5.0); SODIUM 142.9 mmol/L (137-145); TOTAL PROTEIN 5.9 g/dL (6.3-8.2)
[2018-02-10] MEDS: NITROGLYCERIN 2.5 MG (0.1 MG/HR) PATCH.TD24 TD SCH (09:39)
[2018-02-10 09:54] LABS: CREATINE KINASE MB 0.94 ng/mL (<4.55)
[2018-02-10 10:01] LABS: TROPONIN I < 0.012 ng/mL
--- NOTE | 2018-02-10 12:39 | RADIOLOGY REPORT (SQ) ---
EXAM DESCRIPTION: CHEST 2 VIEWS COMPLETED DATE/TIME: 02/10/2018 12:16 pm REASON FOR STUDY: chf COMPARISON: 02/07/2018 EXAM PARAMETERS: NUMBER OF VIEWS: two views TECHNIQUE: Digital Frontal and Lateral radiographic views of the chest acquired. RADIATION DOSE: NA LIMITATIONS: none FINDINGS: LUNGS AND PLEURA: There is blunting of the costophrenic angles consistent with small bilat eral pleural effusions. Some minimal linear densities are identified in the lung bases left greater than right which could represent atelectatic changes or minimal infiltrates. Remaining lung campbell a re clear. MEDIASTINUM AND HILAR STRUCTURES: No masses or contour abnormalities. HEART AND VASCULAR STRUCTURES: Cardiac silhouette remains enlarged. BONES: No acute findings. HARDWARE: None in the chest. OTHER: No other significant finding. IMPRESSION: Bibasilar densities as noted above TECHNICAL DOCUMENTATION: JOB ID: [id number] [employer]- All Rights Reserved Reading location - IP/workstation name: [email or web address]
[2018-02-10 15:30] LABS: CREATINE KINASE MB 1.22 ng/mL (<4.55)
[2018-02-10 15:32] LABS: TROPONIN I < 0.012 ng/mL
[2018-02-10] MEDS: PIPERACILLIN SODIUM/TAZOBACTAM 2.25 GM in NORMAL SALINE 50 ML IV SCH ×2 (15:32→22:23)
--- NOTE | 2018-02-10 19:46 | PDOC PROGRESS REPORT ---
Subjective Progress Note for:: 02/10/18 Subjective:: Events this morning is noted. Apparently patient has an episode of low blood sugar at around 70s and also bradycardia with heart rate of around 45. She received 1 unit of packed RBC for hemoglobin at 7.8. When I saw her this evening she looks a little bit better and she feels better after the blood transfusion. She still complains of dyspnea on exertion from transferring from her commode to the bed. She has some episode of hypotension as well as low as 88/52 today. Her urine output is started to improve. For the last 24 hours yesterday she made 2450 mL. No other complaints. Reason For Visit: SOB,CHF Physical Exam Vital Signs: Temp Pulse Resp BP Pulse Ox 97.6 F 71 22 H 142/64 H 93 02/10/18 15:20 02/10/18 15:20 02/10/18 15:20 02/10/18 15:20 02/10/18 15:20 Intake & Output 02/09/18 02/10/18 02/11/18 06:59 06:59 06:59 Intake Total 755 1250 1178 Output Total 1200 2450 Balance -445 -1200 1178 Weight 135.5 kg 135.3 kg Exam: General appearance: PRESENT: no acute distress, cooperative, well-developed, well-nourished Head exam: PRESENT: atraumatic, normocephalic Eye exam: PRESENT: conjunctiva pale, PERRLA. ABSENT: scleral icterus Neck exam: ABSENT: JVD Respiratory exam: PRESENT: Diminished breath sounds. ABSENT: crackles, rales, rhonchi, unlabored, wheezes Cardiovascular exam: PRESENT: Regular rate rhythm -+S1, +S2. ABSENT: diastolic murmur, systolic murmur GI/Abdominal exam: PRESENT: normal bowel sounds, soft. ABSENT: guarding, mass, tenderness Extremities exam: Decreased grade 1 bilateral lower extremity pitting edema Neurological exam: PRESENT: alert, awake, oriented to person, place and time. Skin exam: PRESENT: dry, warm, Results Laboratory Results: 02/10/18 04:25 02/10/18 08:29 02/09/18 02/10/18 02/10/18 08:57 04:25 04:25 WBC 7.8 RBC 2.46 L Hgb 7.8 L Hct 22.6 L MCV 92 MCH 31.8 MCHC 34.6 RDW 15.7 H Plt Count 275 Seg Neutrophils % 52.9 Lymphocytes % 34.0 Monocytes % 10.9 Eosinophils % 1.4 Basophils % 0.8 Absolute Neutrophils 4.1 Absolute Lymphocytes 2.7 Absolute Monocytes 0.9 Absolute Eosinophils 0.1 Absolute Basophils 0.1 Retic Count (auto) 1.70 Absolute Retic 0.042 Sodium 141.8 Potassium 3.9 Chloride 105 Carbon Dioxide 32 H Anion Gap 5 BUN 57 H Creatinine 2.35 H Est GFR ( Amer) 25 L Est GFR (Non-Af Amer) 21 L Glucose 55 L Calcium 8.6 Magnesium Iron 46.5 TIBC 274 % Saturation 17 Ferritin 101.00 Total Bilirubin AST ALT Alkaline Phosphatase Total Protein Albumin Vitamin B12 214.0 L Folate 7.92 Stool Occult Blood Blood Type O NEGATIVE Antibody Screen NEGATIVE 02/10/18 02/10/18 08:29 09:00 WBC RBC Hgb Hct MCV MCH MCHC RDW Plt Count Seg Neutrophils % Lymphocytes % Monocytes % Eosinophils % Basophils % Absolute Neutrophils Absolute Lymphocytes Absolute Monocytes Absolute Eosinophils Absolute Basophils Retic Count (auto) Absolute Retic Sodium 142.9 Potassium 4.2 Chloride 103 Carbon Dioxide 29 Anion Gap 11 BUN 55 H Creatinine 2.64 H Est GFR ( Amer) 22 L Est GFR (Non-Af Amer) 18 L Glucose 94 Calcium 8.7 Magnesium 2.1 Iron TIBC % Saturation Ferritin Total Bilirubin 0.3 AST 18 ALT 25 Alkaline Phosphatase 71 Total Protein 5.9 L Albumin 3.1 L Vitamin B12 Folate Stool Occult Blood POSITIVE Blood Type Antibody Screen 02/07/18 02/07/18 02/07/18 16:00 16:00 21:58 Creatine Kinase CK-MB (CK-2) 0.73 0.72 Troponin I < 0.012 Cancelled < 0.012 NT-Pro-B Natriuret Pep 02/08/18 02/08/18 02/10/18 03:57 03:57 08:29 Creatine Kinase 73 CK-MB (CK-2) 0.62 Troponin I < 0.012 NT-Pro-B Natriuret Pep 2060 H 02/10/18 02/10/18 02/10/18 08:29 14:30 14:30 Creatine Kinase 78 CK-MB (CK-2) 0.94 1.22 Troponin I < 0.012 < 0.012 NT-Pro-B Natriuret Pep Impressions: Chest/Abdomen CTA 02/07/18 12:36 IMPRESSION: No pulmonary emboli. Bilateral pleural effusions right greater than left with basilar compressive atelectasis. Marked cardiac enlargement with small pericardial effusion. Renal Ultrasound 02/09/18 00:00 IMPRESSION: 1. The examination is limited due to the patient's body habitus. 2. No evidence of hydronephrosis. Chest X-Ray 02/10/18 00:00 IMPRESSION: Bibasilar densities as noted above Assessment & Plan - Diagnosis (1) Acute kidney injury superimposed on chronic kidney disease Is this a current diagnosis for this admission?: Yes Plan: Secondary to contrast-induced nephropathy causing ATN along with CHF and diuretics. Currently with increase and improve urine output. Agree with discontinuation of furosemide since she is in the diuretic phase of ATN seems like. Her kidney function has not shown any improvement yet though. Her kidney ultrasound showed that the right kidney seems to be bigger at 12.6 cm compared to the left kidney at 9.1 cm but interpretation also knows that this could be a limitation because of Sarai habitus. No hydronephrosis was found. Continue to monitor. (2) CKD (chronic kidney disease), stage III Is this a current diagnosis for this admission?: Yes Plan: She has not nephrotic range proteinuria with urine protein to creatinine ratio of 2.6. Serum protein electrophoresis still pending. Likely underlying causes be diabetic nephropathy with contribution of hypertensive nephrosclerosis. (3) CHF (congestive heart failure) Qualifiers: Heart failure type: unspecified Is this a current diagnosis for this admission?: Yes Plan: Repeat echocardiogram showed ejection fraction of 60%. (4) Diabetes mellitus type 2 in obese Is this a current diagnosis for this admission?: Yes (5) Acute UTI (urinary tract infection) Is this a current diagnosis for this admission?: Yes Plan: Secondary to ESBL E. coli. Defer antibiotic management to the hospitalist service. (6) Anemia, chronic disease Is this a current diagnosis for this admission?: Yes Plan: Patient was given 1 unit of packed RBC transfusion today. Her iron panel also showed a low iron of 45 and T sat of 17. I will give her a dose of IV Injectafer 750 mg. She has positive occult blood in the stool but does not seem to be actively bleeding clinically. (7) Hypertension Is this a current diagnosis for this admission?: Yes (8) NILO (obstructive sleep apnea) Is this a current diagnosis for this admission?: Yes - Time Time with patient: 15-25 minutes
[2018-02-10 21:31] LABS: CREATINE KINASE MB 1.08 ng/mL (<4.55)
[2018-02-10 21:37] LABS: TROPONIN I < 0.012 ng/mL
[2018-02-10] MEDS ORDERED: FERRIC CARBOXYMALTOSE 750 MG in NORMAL SALINE 100 ML IV ONE (22:00)
[2018-02-10] MEDS: ATORVASTATIN CALCIUM 80 MG TABLET PO SCH (22:11)
[2018-02-11] MEDS: PIPERACILLIN SODIUM/TAZOBACTAM 2.25 GM in NORMAL SALINE 50 ML IV SCH ×4 (02:23→20:02)
[2018-02-11] MEDS: ONDANSETRON HCL INJ/PF 4 MG/2 ML SDV IV SCH ×6 (02:23→21:01)
[2018-02-11 05:27] LABS: ABSOLUTE BASOPHILS # (AUTO) 0.1 10^3/uL (0.0-0.2); ABSOLUTE EOSINOPHILS # (AUTO) 0.1 10^3/uL (0.0-0.6); ABSOLUTE LYMPHOCYTES (AUTO) 3.3 10^3/uL (0.5-4.7); ABSOLUTE NEUT (AUTO) 4.4 10^3/uL (1.7-8.2); ABSOLUTE RETICS # 0.052 10^6/uL (0.028-0.122); BASOPHILS % (AUTO) 0.6 % (0-2); EOSINOPHILS % (AUTO) 1.4 % (0-6); HEMATOCRIT 27.7 % (36.0-47.0); HEMOGLOBIN 9.8 g/dL (12.0-15.5); LYMPHOCYTES % (AUTO) 37.1 % (13-45); MEAN CORPUSCULAR HEMOGLOBIN 32.1 pg (27.0-33.4); MEAN CORPUSCULAR HGB CONC 35.3 g/dL (32.0-36.0); MEAN CORPUSCULAR VOLUME 91 fl (80-97); MONOCYTES % (AUTO) 11.4 % (3-13); PLATELET COUNT 309 10^3/uL (150-450); RED BLOOD COUNT 3.05 10^6/uL (3.72-5.28); RED CELL DISTRIBUTION WIDTH 15.4 % (11.5-14.0); RETICULOCYTE COUNT (AUTO) 1.72 % (0.66-2.85); SEGMENTED NEUTROPHILS % (AUTO) 49.5 % (42-78); TOTAL CELLS COUNTED % (AUTO) 100 %; WHITE BLOOD COUNT 8.8 10^3/uL (4.0-10.5)
[2018-02-11 05:46] LABS: ANION GAP 9 (5-19); BLOOD UREA NITROGEN 55 mg/dL (7-20); CALCIUM 9.1 mg/dL (8.4-10.2); CARBON DIOXIDE 31 mmol/L (22-30); CHLORIDE 105 mmol/L (98-107); GLUCOSE 49 mg/dL (75-110); POTASSIUM 3.7 mmol/L (3.6-5.0); SODIUM 144.9 mmol/L (137-145)
[2018-02-11 05:55] LABS: IRON(TIBC) 646.7 ug/dL (37-170)
[2018-02-11 08:05] LABS: FOLATE 9.48 ng/mL (>2.76)
--- NOTE | 2018-02-11 09:35 | PDOC PROGRESS REPORT ---
Subjective Progress Note for:: 02/11/18 Subjective:: 62-year-old female with history of CHF admitted yesterday with complaints of severe shortness of breath, hypoxic hypercapnic respiratory failure requiring BiPAP. She is comfortably in the bed on 2 L nasal cannula today. Denies any complaints. She said she is feeling much better today. 02/09/2018-patient is comfortably in the chair on nasal cannula. Denies any complaints today. Except getting short winded when she has minimal activity. She is using--CPAP at night. 02/10/[id number]-nais-old female with history of CHF EF of 48% admitted for severe shortness of breath, hypoxic hypercapnic respiratory failure requiring BiPAP. Today patient says she is not feeling well. Denies any chest pains. Denies any increased shortness of breath. Her blood sugars dropped this morning to 70s. Latest blood sugars are close to 100. Her heart rate is also down to 45 as per the nursing charge. Yesterday's change antibiotics based on ESBL E. coli in the urine. She was started on Zosyn based on the urine culture report. A consult was done. The concern about AK I may be secondary to CTA that was done during the hospital stay, congestive heart failure, diuretic therapy. 02/11/2018 58-year-old female with history of CHF EF of 48% admitted for hypoxic , hypercapnic respiratory failure requiring BiPAP. Pulse ox today is 91% on 2 L. She uses CPAP at home. She is comfortably in the bed. Denies any complaints. She got 1 unit of PRBC yesterday. Hemoglobin was improved to 9.8. She was bradycardic yesterday. Coreg was discontinued. And heart rate was improved to 66 today. Lasix was discontinued yesterday creatinine was improved from 2.64-2.38. She has blood sugars are 49. I am going to adjust her medications. Reason For Visit: SOB,CHF Physical Exam Vital Signs: Temp Pulse Resp BP Pulse Ox 98.1 F 66 20 140/73 H 93 02/11/18 07:08 02/11/18 07:08 02/11/18 07:08 02/11/18 07:08 02/11/18 07:08 Intake & Output 02/10/18 02/11/18 02/12/18 06:59 06:59 06:59 Intake Total 1250 1483 Output Total 2450 300 Balance -1200 1183 Weight 135.3 kg 125.6 kg General appearance: PRESENT: no acute distress Head exam: PRESENT: atraumatic Eye exam: PRESENT: PERRLA Mouth exam: PRESENT: moist Neck exam: ABSENT: carotid bruit, JVD, lymphadenopathy, thyromegaly Respiratory exam: PRESENT: decreased breath sounds Cardiovascular exam: PRESENT: RRR. ABSENT: diastolic murmur, rubs, systolic murmur GI/Abdominal exam: PRESENT: normal bowel sounds, soft, other - Obese abdomen.. ABSENT: tenderness Extremities exam: PRESENT: full ROM. ABSENT: calf tenderness, clubbing, pedal edema Neurological exam: PRESENT: alert, awake, oriented to person, oriented to place , oriented to time, oriented to situation, CN II-XII grossly intact. ABSENT: motor sensory deficit Psychiatric exam: PRESENT: appropriate affect, normal mood. ABSENT: homicidal ideation, suicidal ideation Results Laboratory Results: 02/11/18 04:37 02/11/18 04:37 02/10/18 02/11/18 02/11/18 08:29 04:37 04:37 WBC 8.8 RBC 3.05 L Hgb 9.8 L Hct 27.7 L MCV 91 MCH 32.1 MCHC 35.3 RDW 15.4 H Plt Count 309 Seg Neutrophils % 49.5 Lymphocytes % 37.1 Monocytes % 11.4 Eosinophils % 1.4 Basophils % 0.6 Absolute Neutrophils 4.4 Absolute Lymphocytes 3.3 Absolute Monocytes 1.0 Absolute Eosinophils 0.1 Absolute Basophils 0.1 Retic Count (auto) 1.72 Absolute Retic 0.052 Sodium 142.9 144.9 Potassium 4.2 3.7 Chloride 103 105 Carbon Dioxide 29 31 H Anion Gap 11 9 BUN 55 H 55 H Creatinine 2.64 H 2.38 H Est GFR ( Amer) 22 L 25 L Est GFR (Non-Af Amer) 18 L 21 L Glucose 94 49 L Calcium 8.7 9.1 Magnesium 2.1 Iron 646.7 H TIBC 300 % Saturation 216 Ferritin 112.00 Total Bilirubin 0.3 AST 18 ALT 25 Alkaline Phosphatase 71 Total Protein 5.9 L Albumin 3.1 L Vitamin B12 240.0 Folate 9.48 02/07/18 02/07/18 02/07/18 16:00 16:00 21:58 Creatine Kinase CK-MB (CK-2) 0.73 0.72 Troponin I < 0.012 Cancelled < 0.012 NT-Pro-B Natriuret Pep 02/08/18 02/08/18 02/10/18 03:57 03:57 08:29 Creatine Kinase 73 CK-MB (CK-2) 0.62 Troponin I < 0.012 NT-Pro-B Natriuret Pep 2060 H 02/10/18 02/10/18 02/10/18 08:29 14:30 14:30 Creatine Kinase 78 CK-MB (CK-2) 0.94 1.22 Troponin I < 0.012 < 0.012 NT-Pro-B Natriuret Pep 02/10/18 02/10/18 20:27 20:27 Creatine Kinase 73 CK-MB (CK-2) 1.08 Troponin I < 0.012 NT-Pro-B Natriuret Pep Impressions: Chest/Abdomen CTA 02/07/18 12:36 IMPRESSION: No pulmonary emboli. Bilateral pleural effusions right greater than left with basilar compressive atelectasis. Marked cardiac enlargement with small pericardial effusion. Renal Ultrasound 02/09/18 00:00 IMPRESSION: 1. The examination is limited due to the patient's body habitus. 2. No evidence of hydronephrosis. Chest X-Ray 02/10/18 00:00 IMPRESSION: Bibasilar densities as noted above Assessment & Plan - Diagnosis (1) Acute kidney injury superimposed on chronic kidney disease Is this a current diagnosis for this admission?: Yes Plan: 02/10/2018-since creatinine today is 2.35. Admission creatinine is 1.1. She has underlying stage III kidney disease. But during the hospital stay creatinine continued to rise may be secondary to CTA that was done during the hospital stay, diuretic therapy, and CHF. Nephrology consult was requested. As per the recommendations were going to check urine protein creatinine ratio protein electrophoresis. As per the hide stretcher hand there is no emergent need for dialysis. Patient with blood pressures were running low today. I discontinue her Lasix today. We are going to continue to monitor her renal function on daily basis. Continue lisinopril because of the KEYON.. Patient is nonoliguric urinary output is 2.4 L yesterday. Going to put her on fluid restriction 1.5 L/ day. The renal ultrasound was done yesterday no hydronephrosis was noted. . 02/11/2018-patient's admission creatinine is 1.1. Today it was 2.35. Yesterday it was peaked to 2.68. AKA may be secondary to contrast exposure. AKA secondary to ATN due to contrast exposure, congestive heart failure, diuretic therapy. Nephrology on board. Assessment from the nephrology is there is no emergent need for renal replacement therapy. Urinary output in the last 24 hours is 2.4 L. Renal ultrasound shows no hydronephrosis. Patient was placed on fluid restriction. Lisinopril is on hold for Keyon. (2) Hypoxemia Is this a current diagnosis for this admission?: Yes Plan: 02/08/2018-patient was admitted with hypoxic hypercapnic respiratory failure may be secondary to CHF exacerbation. She will ABG this morning pH is 7.38/ PCO2 50/PO2 72 bicarb is 29. Initially she required BiPAP. Now she is on 2 L nasal cannula. She still uses BiPAP at night even at home. The echocardiogram , cardiology consult is pending. BNP is requested for today and tomorrow. Patient has a stress test done a few months ago post stress test left ventricular ejection fraction is 48% most likely systolic dysfunction. Chest CT shows cardiomegaly with small bilateral pleural effusions. Patient is on Lasix 40 mg IV every 8 hours, I decreased the frequency to every 12 hours today. Patient is complaining of short of breath with minimal activities like going to the restroom. I am going to request with a physical therapy consult. 02/09/2018-patient's pulse ox is 92% on 3 L oxygen. He is using CPAP at night. She is getting nebulizations every 4 as needed. We are going to change to every 6 as needed. Patient says she is feeling much better but still start winded with minimal activity. Physical therapy is following the patient. The echocardiogram pending. 02/10/[id number]-qwqb-old female admitted with acute on chronic respiratory failure with hypoxia and hypercapnia. Patient still using BiPAP on as needed basis. She is getting nebulizations every 6 as needed. Pulse ox on BiPAP this morning is 97%. Cardiogram shows EF of 60% with left ventricular diastolic dysfunction. I am going to request for follow-up chest x-ray today. Plan is to continue the nebulizations, oxygen via nasal cannula to titrate as needed and continue BiPAP on as needed basis. 02/11/2018-pulse ox today on 2 L is 91%. Admitted for acute on chronic respiratory failure with hypoxia and hypercapnia requiring BiPAP. She uses at night at home. Chest examination today decreased bilateral air entry secondary to COPD, no wheezing no rhonchi heard . We will continue the BiPAP as needed basis. (3) Diabetes mellitus type 2 in obese Is this a current diagnosis for this admission?: Yes Plan: 02/08/2018 patient has history of type 2 diabetes mellitus she is not in any prednisone or IV steroids. blood sugars are 324 this morning she is on sliding scale, getting glargine insulin 70 units every 12 hours. Order for hemoglobin A1c for tomorrow. We will continue the present management today. 02/08/2018-patient is getting insulin 70 units every 12 hours, insulin sliding scale before meals and at bedtime. Hemoglobin A1c 7.9. Latest blood sugar is 159. Continue the present management. 02/10/2018-patient has history of type 2 diabetes mellitus she is on Lantus 70 units subcu twice a day, she is also on NovoLog 35 units before meals at home. Here in this hospital she is getting only Lantus 70 units subcu twice a day. This morning her blood sugars dropped to 70s. Recheck blood sugar is 100. Patient said she did not miss any meals yesterday she ate good breakfast lunch and dinner. We will continue the present management. I have to mention patient is also on sliding scaleCOVERAGEbefore meals and at bedtime. Patient's hemoglobin A1c is 7.9. 02/11/2018-patient's blood sugars is 49 this morning. She is on Lantus 70 units subcu twice a day. Because of the appropriate diet she is getting here blood sugars are well controlled. At home she is taking Lantus 70 units subcu twice a day, NovoLog 35 units prior to meals. She is not getting NovoLog during this hospital stay. She is also on insulin sliding scale. I am going to decrease the Lantus to 60 units twice a day. I am going to request for a dietary consult. (4) Acute UTI (urinary tract infection) Is this a current diagnosis for this admission?: Yes Plan: 02/08/2018-patient was on Levaquin 750 mg for UTI urine cultures are pending. She denies any fever. She is afebrile temperature is 97.6. 02/09/2018-urine cultures came back positive for gram-negative rods. Patient is on levofloxacillin 750 mg p.o. daily. She is afebrile. Temperature is 97.9. Will continue the present management. 02/10/2018-the urine cultures came back positive for ESBL E. coli. Resistant to levofloxacin and. Sensitivity to Zosyn. The levofloxacin was discontinued and Zosyn was started yesterday. 02/11/2018, urine culture is growing ESBL E. coli. Patient was started on Zosyn yesterday. Patient is afebrile. T-max is 98.1. UTI may be a contributing factor for KEYON. (5) Morbid obesity Is this a current diagnosis for this admission?: Yes Plan: 02/08/2018-BMI is 50+. Diet and exercise weight loss was advised. Dietary consult was requested. 02/09/2018 dietary consult was requested we continue the present plan. 02/10/2018-patient's BMI is more than 50 dietary consult was requested. operator electronic warfare consult was requested. Patient's weight today is 135.3 kg. Diet exercise weight loss was advised. 02/11/2018-diet and exercise weight loss was advised. BMI is more than 50. (6) CHF (congestive heart failure) Qualifiers: Heart failure type: unspecified Is this a current diagnosis for this admission?: Yes Plan: 02/08/2018 latest stress test with EF of 48%. Patient says she does not know anything about congestive heart failure. She is not on Lasix at home. Requested for cardiology consult for further recommendations. Echocardiogram also requested. BNP was requested. We could check daily weights. 02/09/2018-on examination chest was clear. No pedal edema. BNP is 2060. He is on Lasix 40 mg IV every 12 hours. His weight is 134.8 kg. She lost 0.5 kg since yesterday. 02/10/2018-echocardiogram was done left ventricular ejection fraction is more than 60% the impression is left ventricular diastolic dysfunction. She is not in fluid overload on examination. 02/11/2018 that was done left ventricular function is 60%. Normal systolic left ventricular function. Patient has chronic CHF. (7) CKD (chronic kidney disease), stage III Is this a current diagnosis for this admission?: Yes Plan: 02/08/2018-patient has stage III CKD. The creatinine is 1.36 in November. On admission it was 1.1 today it was 1.38. We are going to continue to check renal panel and daily basis. This Keyon may be secondary to CHF exacerbation. 02/09/2018-the creatinine worsened from 1.38-2.04 today. May be secondary to CHF exacerbation. Nephrology consult was requested. May be secondary to UTI. Be going to check daily renal panel. Renal ultrasound was requested. 02/10/2018-today's creatinine is 2.35. It is may be secondary to multifactorial. Likely CHF exacerbation, diuretic therapy, UTI, CTA that was done during the hospital stay. The lisinopril was discontinued for the time being. Lasix was also on hold. 02/11/2018-yesterday creatinine is 2.68. Today it was 2.34. KEYON on CKD may be secondary to contrast exposure, IV antibiotic therapy with Zosyn, vancomycin, diuretic therapy, CHF. Nephrology consult was done. Protein creatinine ratio is 2.6 g. Protein electrophoresis is pending. No need for emergent dialysis at this time. Patient is nonoliguric. We will continue to follow the renal panel. (8) Anemia, chronic disease Is this a current diagnosis for this admission?: Yes Plan: 02/09/2018-hemoglobin on admission is 10.2, today 7.9. Type and crossmatch was requested and requested 1 unit of blood transfusion. We are going to check stool for occult blood. 02/10/2018-yesterday initial hemoglobin is 7.9 and repeat hemoglobin come back as 8.6 so we withheld blood transfusion. Today's hemoglobin is 7.8 and patient looks pale and clammy, she is going to get 1 unit of PRBC today. Going to continue to check CBC done on daily basis. Iron levels were requested. 02/11/2018 yesterday's hemoglobin is 7.9. Patient got 1 unit of PRBC. Latest hemoglobin is 9.8. Iron studies were done. Iron saturation is 17%. Patient received IV iron 750 mg. Patient has anemia of chronic disease secondary to CKD. (9) Bradycardia Is this a current diagnosis for this admission?: Yes Plan: 1211 2017-todays patient's heart rate went down to 45. Patient is asymptomatic denies any chest pains. I stopped Coreg. We are going to continue amlodipine. Also stop Lasix. Cardiac enzymes were requested. As I mentioned above echocardiogram with EF of 60% 02/11/2018-patient heart rate is improved to 66 today. Coreg was discontinued yesterday. Lasix was discontinued. Cardiac enzymes are negative. EF is 60% patient has chronic congestive heart failure. - Time Time Spent with patient: 15-24 minutes Medications reviewed and adjusted accordingly: Yes Anticipated discharge: Home
[2018-02-11 09:54] LABS: ARTERIAL BLOOD BASE EXCESS 3.3 mmol/L; ARTERIAL BLOOD FIO2 2L; ARTERIAL BLOOD H2CO3 1.73 mmol/L (1.05-1.35); ARTERIAL BLOOD O2 SATURATION 92.8 % (94-98); ARTERIAL BLOOD PCO2 57.5 mmHg (35-45); ARTERIAL BLOOD PH 7.34 (7.35-7.45); ARTERIAL BLOOD PO2 70.5 mmHg (80-100); ARTERIAL BLOOD TOTAL CO2 31.8 mmol/L (21-25)
[2018-02-11] MEDS ORDERED: INSULIN GLARGINE,HUM.REC.ANLOG 1,000 UNIT/10 ML UNIT SUBCUT SCH ×2 (10:00→22:00)
[2018-02-11] MEDS ORDERED: ACETAMINOPHEN 325 MG TABLET PO PRN (10:07)
[2018-02-11] MEDS: ENOXAPARIN SODIUM INJ 30 MG/0.3 ML DISP.SYRIN SUBCUT SCH (11:46)
[2018-02-11] MEDS: PROMETHAZINE HCL INJ 25 MG/1 ML VIAL IV PRN (11:47)
[2018-02-11] MEDS: ASPIRIN 325 MG TABLET, ENT COATED PO SCH (11:47)
[2018-02-11] MEDS: AMLODIPINE BESYLATE 10 MG TABLET PO SCH (11:47)
[2018-02-11] MEDS: GABAPENTIN 300 MG CAPSULE PO SCH ×2 (11:47→21:04)
[2018-02-11] MEDS: ESCITALOPRAM OXALATE 10 MG TABLET PO SCH (11:48)
[2018-02-11] MEDS: HYDROCHLOROTHIAZIDE 25 MG TABLET PO SCH (11:48)
[2018-02-11] MEDS: NITROGLYCERIN 2.5 MG (0.1 MG/HR) PATCH.TD24 TD SCH (11:49)
[2018-02-11] MEDS: EZETIMIBE 10 MG TABLET PO SCH (11:49)
[2018-02-11] MEDS: CETIRIZINE 5 MG TABLET PO SCH (11:54)
[2018-02-11] MEDS: CETIRIZINE 10 MG TABLET PO SCH (13:46)
[2018-02-11] MEDS: FAMOTIDINE 20 MG TABLET PO SCH ×2 (13:46→21:03)
--- NOTE | 2018-02-11 19:44 | PDOC PROGRESS REPORT ---
Subjective Progress Note for:: 02/11/18 Subjective:: Patient was seen today laying in her bed. According to the nurse in charge of her care, they are looking to send her home with home O2. Patient claims to still be SOB with exertion. She denies chest pain, n/v/d/c. urine output is not accurate so assessment of output is not able to be done. Reason For Visit: SOB,CHF Physical Exam Vital Signs: Temp Pulse Resp BP Pulse Ox 98.4 F 64 20 144/72 H 91 L 02/11/18 16:13 02/11/18 18:48 02/11/18 16:13 02/11/18 16:13 02/11/18 16:13 Intake & Output 02/10/18 02/11/18 02/12/18 06:59 06:59 06:59 Intake Total 1250 1483 814 Output Total 2450 300 1700 Balance -1200 1183 -886 Weight 135.3 kg 125.6 kg 125.6 kg General appearance: PRESENT: no acute distress, morbidly obese, well-developed, well-nourished Mouth exam: PRESENT: moist, neck supple Neck exam: ABSENT: JVD, tracheal deviation Respiratory exam: PRESENT: crackles, decreased breath sounds, rales. ABSENT: accessory muscle use, clear to auscultation vadim, rhonchi, wheezes Cardiovascular exam: PRESENT: +S1, +S2 Extremities exam: PRESENT: pedal edema, +1 edema. ABSENT: tenderness, +2 edema Musculoskeletal exam: PRESENT: normal inspection. ABSENT: tenderness Neurological exam: PRESENT: alert, awake, oriented to person, oriented to place, oriented to time, oriented to situation Skin exam: PRESENT: dry, intact, warm. ABSENT: cyanosis Results Laboratory Results: 02/11/18 04:37 02/11/18 04:37 02/11/18 02/11/18 02/11/18 04:37 04:37 09:18 WBC 8.8 RBC 3.05 L Hgb 9.8 L Hct 27.7 L MCV 91 MCH 32.1 MCHC 35.3 RDW 15.4 H Plt Count 309 Seg Neutrophils % 49.5 Lymphocytes % 37.1 Monocytes % 11.4 Eosinophils % 1.4 Basophils % 0.6 Absolute Neutrophils 4.4 Absolute Lymphocytes 3.3 Absolute Monocytes 1.0 Absolute Eosinophils 0.1 Absolute Basophils 0.1 Retic Count (auto) 1.72 Absolute Retic 0.052 Carbonic Acid 1.73 H HCO3/H2CO3 Ratio 17:1 ABG pH 7.34 L ABG pCO2 57.5 H ABG pO2 70.5 L ABG HCO3 30.0 H ABG O2 Saturation 92.8 L ABG Base Excess 3.3 FiO2 2L Sodium 144.9 Potassium 3.7 Chloride 105 Carbon Dioxide 31 H Anion Gap 9 BUN 55 H Creatinine 2.38 H Est GFR ( Amer) 25 L Est GFR (Non-Af Amer) 21 L Glucose 49 L Calcium 9.1 Iron 646.7 H TIBC 300 % Saturation 216 Ferritin 112.00 Vitamin B12 240.0 Folate 9.48 02/07/18 02/07/18 02/07/18 16:00 16:00 21:58 Creatine Kinase CK-MB (CK-2) 0.73 0.72 Troponin I < 0.012 Cancelled < 0.012 NT-Pro-B Natriuret Pep 02/08/18 02/08/18 02/10/18 03:57 03:57 08:29 Creatine Kinase 73 CK-MB (CK-2) 0.62 Troponin I < 0.012 NT-Pro-B Natriuret Pep 2060 H 02/10/18 02/10/18 02/10/18 08:29 14:30 14:30 Creatine Kinase 78 CK-MB (CK-2) 0.94 1.22 Troponin I < 0.012 < 0.012 NT-Pro-B Natriuret Pep 02/10/18 02/10/18 02/11/18 20:27 20:27 04:37 Creatine Kinase 73 CK-MB (CK-2) 1.08 Troponin I < 0.012 NT-Pro-B Natriuret Pep 1360 H Impressions: Chest/Abdomen CTA 02/07/18 12:36 IMPRESSION: No pulmonary emboli. Bilateral pleural effusions right greater than left with basilar compressive atelectasis. Marked cardiac enlargement with small pericardial effusion. Renal Ultrasound 02/09/18 00:00 IMPRESSION: 1. The examination is limited due to the patient's body habitus. 2. No evidence of hydronephrosis. Chest X-Ray 02/10/18 00:00 IMPRESSION: Bibasilar densities as noted above Assessment & Plan - Diagnosis (1) Acute kidney injury superimposed on chronic kidney disease Is this a current diagnosis for this admission?: Yes Plan: nonoliguric due to ATN from contrast and from CHF. Currently in the diuresis phase, creatinine has slightly improved. Will keep monitoring. Need more accurate I&Os to see when furosemide will need to be added back. (2) CHF (congestive heart failure) Qualifiers: Heart failure type: unspecified Is this a current diagnosis for this admission?: Yes Plan: currently furosemide is on hold due to her being in the diuresis phase of kidney recovery (3) Hypertension Is this a current diagnosis for this admission?: Yes Plan: controlled (4) Hypoxemia Is this a current diagnosis for this admission?: Yes Plan: on O2 and currently being assessed for home O2 (5) Anemia, chronic disease Is this a current diagnosis for this admission?: Yes Plan: received blood transfusion and iron infusion over the past couple of days. (6) CKD (chronic kidney disease), stage III Is this a current diagnosis for this admission?: Yes Plan: looks to have underling CKD from diabetes (7) Diabetes mellitus type 2 in obese Is this a current diagnosis for this admission?: Yes (8) NILO (obstructive sleep apnea) Is this a current diagnosis for this admission?: Yes (9) Acute UTI (urinary tract infection) Is this a current diagnosis for this admission?: Yes Plan: on antibiotics
[2018-02-11] MEDS: ATORVASTATIN CALCIUM 80 MG TABLET PO SCH (21:04)
[2018-02-12] MEDS: ONDANSETRON HCL INJ/PF 4 MG/2 ML SDV IV SCH ×6 (01:44→21:46)
[2018-02-12] MEDS: PIPERACILLIN SODIUM/TAZOBACTAM 2.25 GM in NORMAL SALINE 50 ML IV SCH ×4 (02:19→21:45)
[2018-02-12 05:08] LABS: ABSOLUTE EOSINOPHILS # (AUTO) 0.1 10^3/uL (0.0-0.6); ABSOLUTE MONOCYTES (AUTO) 0.6 10^3/uL (0.1-1.4); ABSOLUTE NEUT (AUTO) 3.8 10^3/uL (1.7-8.2); BASOPHILS % (AUTO) 0.6 % (0-2); EOSINOPHILS % (AUTO) 1.3 % (0-6); HEMATOCRIT 25.9 % (36.0-47.0); HEMOGLOBIN 9.1 g/dL (12.0-15.5); LYMPHOCYTES % (AUTO) 30.9 % (13-45); MEAN CORPUSCULAR HEMOGLOBIN 31.7 pg (27.0-33.4); MEAN CORPUSCULAR VOLUME 91 fl (80-97); MONOCYTES % (AUTO) 9.1 % (3-13); PLATELET COUNT 260 10^3/uL (150-450); RED BLOOD COUNT 2.86 10^6/uL (3.72-5.28); RED CELL DISTRIBUTION WIDTH 15.7 % (11.5-14.0); SEGMENTED NEUTROPHILS % (AUTO) 58.1 % (42-78); TOTAL CELLS COUNTED % (AUTO) 100 %; WHITE BLOOD COUNT 6.5 10^3/uL (4.0-10.5)
[2018-02-12 05:51] LABS: ALANINE AMINOTRANSFERASE 14 U/L (9-52); ALBUMIN 2.9 g/dL (3.5-5.0); ALKALINE PHOSPHATASE 63 U/L (38-126); ANION GAP 7 (5-19); ASPARTATE AMINO TRANSFERASE 15 U/L (14-36); BILIRUBIN,DIRECT 0.3 mg/dL (0.0-0.4); BILIRUBIN,TOTAL 0.4 mg/dL (0.2-1.3); BLOOD UREA NITROGEN 54 mg/dL (7-20); CALCIUM 8.6 mg/dL (8.4-10.2); CARBON DIOXIDE 31 mmol/L (22-30); CHLORIDE 106 mmol/L (98-107); GLUCOSE 126 mg/dL (75-110); POTASSIUM 4.3 mmol/L (3.6-5.0); SODIUM 143.5 mmol/L (137-145); TOTAL PROTEIN 5.6 g/dL (6.3-8.2)
--- NOTE | 2018-02-12 09:36 | PDOC PROGRESS REPORT ---
Subjective Progress Note for:: 02/12/18 Subjective:: 62-year-old female with history of CHF admitted yesterday with complaints of severe shortness of breath, hypoxic hypercapnic respiratory failure requiring BiPAP. She is comfortably in the bed on 2 L nasal cannula today. Denies any complaints. She said she is feeling much better today. 02/09/2018-patient is comfortably in the chair on nasal cannula. Denies any complaints today. Except getting short winded when she has minimal activity. She is using--CPAP at night. 02/10/[id number]-ivnm-old female with history of CHF EF of 48% admitted for severe shortness of breath, hypoxic hypercapnic respiratory failure requiring BiPAP. Today patient says she is not feeling well. Denies any chest pains. Denies any increased shortness of breath. Her blood sugars dropped this morning to 70s. Latest blood sugars are close to 100. Her heart rate is also down to 45 as per the nursing charge. Yesterday's change antibiotics based on ESBL E. coli in the urine. She was started on Zosyn based on the urine culture report. A consult was done. The concern about AK I may be secondary to CTA that was done during the hospital stay, congestive heart failure, diuretic therapy. 02/11/2018 58-year-old female with history of CHF EF of 48% admitted for hypoxic , hypercapnic respiratory failure requiring BiPAP. Pulse ox today is 91% on 2 L. She uses CPAP at home. She is comfortably in the bed. Denies any complaints. She got 1 unit of PRBC yesterday. Hemoglobin was improved to 9.8. She was bradycardic yesterday. Coreg was discontinued. And heart rate was improved to 66 today. Lasix was discontinued yesterday creatinine was improved from 2.64-2.38. She has blood sugars are 49. I am going to adjust her medications. 02/12/2018 patient is comfortably in the bed denies any complaints. She says she does not use oxygen at home. She uses CPAP at home. Pulse oxes are 93% 2 L. Spoke with the psychiatric social worker supervisor about possible need for the patient to go home on home oxygen 2 L per nasal cannula. No acute events in the last 24 hours. Indicating very well. Reason For Visit: SOB,CHF Physical Exam Vital Signs: Temp Pulse Resp BP Pulse Ox 98.1 F 72 16 147/69 H 93 02/12/18 08:03 02/12/18 08:03 02/12/18 08:03 02/12/18 08:03 02/12/18 08:03 Intake & Output 02/11/18 02/12/18 02/13/18 06:59 06:59 06:59 Intake Total 1483 914 Output Total 300 1700 Balance 1183 -786 Weight 125.6 kg 131 kg General appearance: PRESENT: no acute distress Head exam: PRESENT: atraumatic Eye exam: PRESENT: PERRLA Mouth exam: PRESENT: moist Neck exam: ABSENT: carotid bruit, JVD, lymphadenopathy, thyromegaly Respiratory exam: PRESENT: decreased breath sounds Cardiovascular exam: PRESENT: RRR. ABSENT: diastolic murmur, rubs, systolic murmur GI/Abdominal exam: PRESENT: normal bowel sounds, soft. ABSENT: distended, guarding, mass, organolmegaly, rebound, tenderness Neurological exam: PRESENT: alert, awake, oriented to person, oriented to place , oriented to time, oriented to situation, CN II-XII grossly intact. ABSENT: motor sensory deficit Psychiatric exam: PRESENT: appropriate affect, normal mood. ABSENT: homicidal ideation, suicidal ideation Results Laboratory Results: 02/12/18 04:28 02/12/18 04:28 02/11/18 02/12/18 02/12/18 09:18 04:28 04:28 WBC 6.5 RBC 2.86 L Hgb 9.1 L Hct 25.9 L MCV 91 MCH 31.7 MCHC 35.0 RDW 15.7 H Plt Count 260 Seg Neutrophils % 58.1 Lymphocytes % 30.9 Monocytes % 9.1 Eosinophils % 1.3 Basophils % 0.6 Absolute Neutrophils 3.8 Absolute Lymphocytes 2.0 Absolute Monocytes 0.6 Absolute Eosinophils 0.1 Absolute Basophils 0.0 Carbonic Acid 1.73 H HCO3/H2CO3 Ratio 17:1 ABG pH 7.34 L ABG pCO2 57.5 H ABG pO2 70.5 L ABG HCO3 30.0 H ABG O2 Saturation 92.8 L ABG Base Excess 3.3 FiO2 2L Sodium 143.5 Potassium 4.3 Chloride 106 Carbon Dioxide 31 H Anion Gap 7 BUN 54 H Creatinine 2.13 H Est GFR ( Amer) 28 L Est GFR (Non-Af Amer) 23 L Glucose 126 H Calcium 8.6 Magnesium 2.4 H Total Bilirubin 0.4 AST 15 ALT 14 Alkaline Phosphatase 63 Total Protein 5.6 L Albumin 2.9 L 02/07/18 02/07/18 02/07/18 16:00 16:00 21:58 Creatine Kinase CK-MB (CK-2) 0.73 0.72 Troponin I < 0.012 Cancelled < 0.012 NT-Pro-B Natriuret Pep 02/08/18 02/08/18 02/10/18 03:57 03:57 08:29 Creatine Kinase 73 CK-MB (CK-2) 0.62 Troponin I < 0.012 NT-Pro-B Natriuret Pep 2060 H 02/10/18 02/10/18 02/10/18 08:29 14:30 14:30 Creatine Kinase 78 CK-MB (CK-2) 0.94 1.22 Troponin I < 0.012 < 0.012 NT-Pro-B Natriuret Pep 02/10/18 02/10/18 02/11/18 20:27 20:27 04:37 Creatine Kinase 73 CK-MB (CK-2) 1.08 Troponin I < 0.012 NT-Pro-B Natriuret Pep 1360 H Impressions: Chest/Abdomen CTA 02/07/18 12:36 IMPRESSION: No pulmonary emboli. Bilateral pleural effusions right greater than left with basilar compressive atelectasis. Marked cardiac enlargement with small pericardial effusion. Renal Ultrasound 02/09/18 00:00 IMPRESSION: 1. The examination is limited due to the patient's body habitus. 2. No evidence of hydronephrosis. Chest X-Ray 02/10/18 00:00 IMPRESSION: Bibasilar densities as noted above Assessment & Plan - Diagnosis (1) Acute kidney injury superimposed on chronic kidney disease Is this a current diagnosis for this admission?: Yes Plan: 02/10/2018-since creatinine today is 2.35. Admission creatinine is 1.1. She has underlying stage III kidney disease. But during the hospital stay creatinine continued to rise may be secondary to CTA that was done during the hospital stay, diuretic therapy, and CHF. Nephrology consult was requested. As per the recommendations were going to check urine protein creatinine ratio protein electrophoresis. As per the foil stamp operator there is no emergent need for dialysis. Patient with blood pressures were running low today. I discontinue her Lasix today. We are going to continue to monitor her renal function on daily basis. Continue lisinopril because of the KEYON.. Patient is nonoliguric urinary output is 2.4 L yesterday. Going to put her on fluid restriction 1.5 L/ day. The renal ultrasound was done yesterday no hydronephrosis was noted. . 02/11/2018-patient's admission creatinine is 1.1. Today it was 2.35. Yesterday it was peaked to 2.68. AKA may be secondary to contrast exposure. AKA secondary to ATN due to contrast exposure, congestive heart failure, diuretic therapy. Nephrology on board. Assessment from the nephrology is there is no emergent need for renal replacement therapy. Urinary output in the last 24 hours is 2.4 L. Renal ultrasound shows no hydronephrosis. Patient was placed on fluid restriction. Lisinopril is on hold for Keyon. 02/12/2018-patient's admission creatinine is 1.1. It was peaked to 2.68 on 01/2018. Slowly and gradually coming down. It was 2.13 today. He has nonoliguric AKA secondary to ATN due to contrast exposure, congestive heart failure, IV antibiotic therapy, UTI. She is in diuretic recovery phase. She is off the Lasix. Urine output in the last 24 hours is 2 L. Renal ultrasound was negative for hydronephrosis. Nephrology team is on board. Continue to follow her renal function. (2) Hypoxemia Is this a current diagnosis for this admission?: Yes Plan: 02/08/2018-patient was admitted with hypoxic hypercapnic respiratory failure may be secondary to CHF exacerbation. She will ABG this morning pH is 7.38/ PCO2 50/PO2 72 bicarb is 29. Initially she required BiPAP. Now she is on 2 L nasal cannula. She still uses BiPAP at night even at home. The echocardiogram , cardiology consult is pending. BNP is requested for today and tomorrow. Patient has a stress test done a few months ago post stress test left ventricular ejection fraction is 48% most likely systolic dysfunction. Chest CT shows cardiomegaly with small bilateral pleural effusions. Patient is on Lasix 40 mg IV every 8 hours, I decreased the frequency to every 12 hours today. Patient is complaining of short of breath with minimal activities like going to the restroom. I am going to request with a physical therapy consult. 02/09/2018-patient's pulse ox is 92% on 3 L oxygen. He is using CPAP at night. She is getting nebulizations every 4 as needed. We are going to change to every 6 as needed. Patient says she is feeling much better but still start winded with minimal activity. Physical therapy is following the patient. The echocardiogram pending. 02/10/[id number]-lgio-old female admitted with acute on chronic respiratory failure with hypoxia and hypercapnia. Patient still using BiPAP on as needed basis. She is getting nebulizations every 6 as needed. Pulse ox on BiPAP this morning is 97%. Cardiogram shows EF of 60% with left ventricular diastolic dysfunction. I am going to request for follow-up chest x-ray today. Plan is to continue the nebulizations, oxygen via nasal cannula to titrate as needed and continue BiPAP on as needed basis. 02/11/2018-pulse ox today on 2 L is 91%. Admitted for acute on chronic respiratory failure with hypoxia and hypercapnia requiring BiPAP. She uses at night at home. Chest examination today decreased bilateral air entry secondary to COPD, no wheezing no rhonchi heard . We will continue the BiPAP as needed basis. 02/12/2018 pulse ox is today on 2 L is 93 %. Patient is comfortably in the chair, communicating very well not in respiratory distress. Chest bilateral entry was decreased no wheezing no crepitations. I talked to psychiatric social worker supervisor in making arrangements to send the patient on 2 L oxygen nasal cannula continuous. The bicarb in chemistry is 31, and an ABG is 30, PCO2 is 57.5. Improving. My opinion hypoxia and hypercapnia are improving and coming close to the baseline. (3) Diabetes mellitus type 2 in obese Is this a current diagnosis for this admission?: Yes Plan: 02/08/2018 patient has history of type 2 diabetes mellitus she is not in any prednisone or IV steroids. blood sugars are 324 this morning she is on sliding scale, getting glargine insulin 70 units every 12 hours. Order for hemoglobin A1c for tomorrow. We will continue the present management today. 02/08/2018-patient is getting insulin 70 units every 12 hours, insulin sliding scale before meals and at bedtime. Hemoglobin A1c 7.9. Latest blood sugar is 159. Continue the present management. 02/10/2018-patient has history of type 2 diabetes mellitus she is on Lantus 70 units subcu twice a day, she is also on NovoLog 35 units before meals at home. Here in this hospital she is getting only Lantus 70 units subcu twice a day. This morning her blood sugars dropped to 70s. Recheck blood sugar is 100. Patient said she did not miss any meals yesterday she ate good breakfast lunch and dinner. We will continue the present management. I have to mention patient is also on sliding scaleCOVERAGEbefore meals and at bedtime. Patient's hemoglobin A1c is 7.9. 02/11/2018-patient's blood sugars is 49 this morning. She is on Lantus 70 units subcu twice a day. Because of the appropriate diet she is getting here blood sugars are well controlled. At home she is taking Lantus 70 units subcu twice a day, NovoLog 35 units prior to meals. She is not getting NovoLog during this hospital stay. She is also on insulin sliding scale. I am going to decrease the Lantus to 60 units twice a day. I am going to request for a dietary consult. 02/12/2018-patient's blood sugar is 126 today. No episodes of hypoglycemia in the last 24 hours. Patient is on insulin sliding scale before meals and at bedtime. She is also on Lantus 60 units twice a day. Dietitian is on board. Patient's hemoglobin A1c is 7.9. Again diet exercise weight loss was stressed. (4) Acute UTI (urinary tract infection) Is this a current diagnosis for this admission?: Yes Plan: 02/08/2018-patient was on Levaquin 750 mg for UTI urine cultures are pending. She denies any fever. She is afebrile temperature is 97.6. 02/09/2018-urine cultures came back positive for gram-negative rods. Patient is on levofloxacillin 750 mg p.o. daily. She is afebrile. Temperature is 97.9. Will continue the present management. 02/10/2018-the urine cultures came back positive for ESBL E. coli. Resistant to levofloxacin and. Sensitivity to Zosyn. The levofloxacin was discontinued and Zosyn was started yesterday. 02/11/2018, urine culture is growing ESBL E. coli. Patient was started on Zosyn yesterday. Patient is afebrile. T-max is 98.1. UTI may be a contributing factor for KEYON. All 2017 urine culture positive for ESBL E. coli. Patient is on Zosyn. Afebrile in the last 24 hours. We will continue the current regimen. (5) Morbid obesity Is this a current diagnosis for this admission?: Yes Plan: 02/08/2018-BMI is 50+. Diet and exercise weight loss was advised. Dietary consult was requested. 02/09/2018 dietary consult was requested we continue the present plan. 02/10/2018-patient's BMI is more than 50 dietary consult was requested. pulp bleacher consult was requested. Patient's weight today is 135.3 kg. Diet exercise weight loss was advised. 02/11/2018-diet and exercise weight loss was advised. BMI is more than 50. 06/13/2017 BMI is more than 50. Dietary consult was requested. Again diet exercise weight loss was advised. (6) CHF (congestive heart failure) Qualifiers: Heart failure type: unspecified Is this a current diagnosis for this admission?: Yes Plan: 02/08/2018 latest stress test with EF of 48%. Patient says she does not know anything about congestive heart failure. She is not on Lasix at home. Requested for cardiology consult for further recommendations. Echocardiogram also requested. BNP was requested. We could check daily weights. 02/09/2018-on examination chest was clear. No pedal edema. BNP is 2060. He is on Lasix 40 mg IV every 12 hours. His weight is 134.8 kg. She lost 0.5 kg since yesterday. 02/10/2018-echocardiogram was done left ventricular ejection fraction is more than 60% the impression is left ventricular diastolic dysfunction. She is not in fluid overload on examination. 02/11/2018 that was done left ventricular function is 60%. Normal systolic left ventricular function. Patient has chronic CHF. 02/12/2018 BNP is coming down today it is 1360. Yesterday it is s 2000. Cardiogram shows LV function of 60%. Normal systolic left ventricular function. Patient has chronic CHF. X-ray shows patient has cardiomegaly and small bilateral pleural effusions. Chronic CHF. Left ventricular diastolic function was normal. Right heart function is unable to assess the technical limitations as per right of way cutter. (7) CKD (chronic kidney disease), stage III Is this a current diagnosis for this admission?: Yes Plan: 02/08/2018-patient has stage III CKD. The creatinine is 1.36 in November. On admission it was 1.1 today it was 1.38. We are going to continue to check renal panel and daily basis. This Keyon may be secondary to CHF exacerbation. 02/09/2018-the creatinine worsened from 1.38-2.04 today. May be secondary to CHF exacerbation. Nephrology consult was requested. May be secondary to UTI. Be going to check daily renal panel. Renal ultrasound was requested. 02/10/2018-today's creatinine is 2.35. It is may be secondary to multifactorial. Likely CHF exacerbation, diuretic therapy, UTI, CTA that was done during the hospital stay. The lisinopril was discontinued for the time being. Lasix was also on hold. 02/11/2018-yesterday creatinine is 2.68. Today it was 2.34. KEYON on CKD may be secondary to contrast exposure, IV antibiotic therapy with Zosyn, vancomycin, diuretic therapy, CHF. Nephrology consult was done. Protein creatinine ratio is 2.6 g. Protein electrophoresis is pending. No need for emergent dialysis at this time. Patient is nonoliguric. We will continue to follow the renal panel. 02/12/2018 CKD is most likely secondary to diabetes mellitus. And creatinine ratio is 2.6 g. Patient is nonoliguric. AKA on CKD secondary to contrast exposure, congestive heart failure, diuretic therapy, IV antibiotic therapy. Kidney function is slowly and steadily improving. Nephrology team is on board. Ultrasound negative for hydronephrosis. (8) Anemia, chronic disease Is this a current diagnosis for this admission?: Yes Plan: 02/09/2018-hemoglobin on admission is 10.2, today 7.9. Type and crossmatch was requested and requested 1 unit of blood transfusion. We are going to check stool for occult blood. 02/10/2018-yesterday initial hemoglobin is 7.9 and repeat hemoglobin come back as 8.6 so we withheld blood transfusion. Today's hemoglobin is 7.8 and patient looks pale and clammy, she is going to get 1 unit of PRBC today. Going to continue to check CBC done on daily basis. Iron levels were requested. 02/11/2018 yesterday's hemoglobin is 7.9. Patient got 1 unit of PRBC. Latest hemoglobin is 9.8. Iron studies were done. Iron saturation is 17%. Patient received IV iron 750 mg. Patient has anemia of chronic disease secondary to CKD. 02/12/2018 latest hemoglobin is 9.1. She received 1 unit of PRBC. Hemoglobin stabilized. Anemia of chronic disease secondary to poor kidney function. She got IV iron 750 mg. (9) Bradycardia Is this a current diagnosis for this admission?: Yes Plan: 1211 2017-todays patient's heart rate went down to 45. Patient is asymptomatic denies any chest pains. I stopped Coreg. We are going to continue amlodipine. Also stop Lasix. Cardiac enzymes were requested. As I mentioned above echocardiogram with EF of 60% 02/11/2018-patient heart rate is improved to 66 today. Coreg was discontinued yesterday. Lasix was discontinued. Cardiac enzymes are negative. EF is 60% patient has chronic congestive heart failure. Patient's heart rate is 72 today. Coreg was discontinued. Blood pressures are relatively stable. I am going to follow her on a regular basis continue to monitor heart rate. - Time Time Spent with patient: 15-24 minutes Medications reviewed and adjusted accordingly: Yes Anticipated discharge: Home
[2018-02-12] MEDS: AMLODIPINE BESYLATE 10 MG TABLET PO SCH (09:39)
[2018-02-12] MEDS: ASPIRIN 325 MG TABLET, ENT COATED PO SCH (09:39)
[2018-02-12] MEDS: GABAPENTIN 300 MG CAPSULE PO SCH ×2 (09:39→21:45)
[2018-02-12] MEDS: ENOXAPARIN SODIUM INJ 30 MG/0.3 ML DISP.SYRIN SUBCUT SCH (09:39)
[2018-02-12] MEDS: ESCITALOPRAM OXALATE 10 MG TABLET PO SCH (09:39)
[2018-02-12] MEDS: HYDROCHLOROTHIAZIDE 25 MG TABLET PO SCH (09:39)
[2018-02-12] MEDS: CETIRIZINE 5 MG TABLET PO SCH (09:39)
[2018-02-12] MEDS: NITROGLYCERIN 2.5 MG (0.1 MG/HR) PATCH.TD24 TD SCH (09:40)
[2018-02-12] MEDS: EZETIMIBE 10 MG TABLET PO SCH (09:40)
[2018-02-12] MEDS ORDERED: INSULIN GLARGINE,HUM.REC.ANLOG 1,000 UNIT/10 ML UNIT SUBCUT SCH ×2 (10:00→18:00)
--- NOTE | 2018-02-12 15:55 | PDOC PROGRESS REPORT ---
Subjective Progress Note for:: 02/12/18 Subjective:: Patient is doing fine. She had an episode of low blood sugar this morning. She still complains of some dyspnea on exertion. She continues to reduce adequate amount of urine output without any diuretics. Reason For Visit: SOB,CHF Physical Exam Vital Signs: Temp Pulse Resp BP Pulse Ox 98.5 F 74 18 140/78 H 94 02/12/18 12:13 02/12/18 14:00 02/12/18 13:23 02/12/18 12:13 02/12/18 13:23 Intake & Output 02/11/18 02/12/18 02/13/18 06:59 06:59 06:59 Intake Total 1483 914 50 Output Total 300 1700 Balance 1183 -786 50 Weight 125.6 kg 131 kg Exam: General appearance: PRESENT: no acute distress, cooperative, well-developed, well-nourished Head exam: PRESENT: atraumatic, normocephalic Eye exam: PRESENT: conjunctiva pale, PERRLA. ABSENT: scleral icterus Neck exam: ABSENT: JVD Respiratory exam: PRESENT: Diminished breath sounds. ABSENT: crackles, rales, rhonchi, unlabored, wheezes Cardiovascular exam: PRESENT: Regular rate rhythm -+S1, +S2. ABSENT: diastolic murmur, systolic murmur GI/Abdominal exam: PRESENT: normal bowel sounds, soft. ABSENT: guarding, mass, tenderness Extremities exam: Bilateral trace pitting edema Neurological exam: PRESENT: alert, awake, oriented to person, place and time. Skin exam: PRESENT: dry, warm, Cardiovascular exam: PRESENT: +S1, +S2 Results Laboratory Results: 02/12/18 04:28 02/12/18 04:28 02/12/18 02/12/18 04:28 04:28 WBC 6.5 RBC 2.86 L Hgb 9.1 L Hct 25.9 L MCV 91 MCH 31.7 MCHC 35.0 RDW 15.7 H Plt Count 260 Seg Neutrophils % 58.1 Lymphocytes % 30.9 Monocytes % 9.1 Eosinophils % 1.3 Basophils % 0.6 Absolute Neutrophils 3.8 Absolute Lymphocytes 2.0 Absolute Monocytes 0.6 Absolute Eosinophils 0.1 Absolute Basophils 0.0 Sodium 143.5 Potassium 4.3 Chloride 106 Carbon Dioxide 31 H Anion Gap 7 BUN 54 H Creatinine 2.13 H Est GFR ( Amer) 28 L Est GFR (Non-Af Amer) 23 L Glucose 126 H Calcium 8.6 Magnesium 2.4 H Total Bilirubin 0.4 AST 15 ALT 14 Alkaline Phosphatase 63 Total Protein 5.6 L Albumin 2.9 L 02/07/18 02/07/18 02/07/18 16:00 16:00 21:58 Creatine Kinase CK-MB (CK-2) 0.73 0.72 Troponin I < 0.012 Cancelled < 0.012 NT-Pro-B Natriuret Pep 02/08/18 02/08/18 02/10/18 03:57 03:57 08:29 Creatine Kinase 73 CK-MB (CK-2) 0.62 Troponin I < 0.012 NT-Pro-B Natriuret Pep 2060 H 02/10/18 02/10/18 02/10/18 08:29 14:30 14:30 Creatine Kinase 78 CK-MB (CK-2) 0.94 1.22 Troponin I < 0.012 < 0.012 NT-Pro-B Natriuret Pep 02/10/18 02/10/18 02/11/18 20:27 20:27 04:37 Creatine Kinase 73 CK-MB (CK-2) 1.08 Troponin I < 0.012 NT-Pro-B Natriuret Pep 1360 H Impressions: Chest/Abdomen CTA 02/07/18 12:36 IMPRESSION: No pulmonary emboli. Bilateral pleural effusions right greater than left with basilar compressive atelectasis. Marked cardiac enlargement with small pericardial effusion. Renal Ultrasound 02/09/18 00:00 IMPRESSION: 1. The examination is limited due to the patient's body habitus. 2. No evidence of hydronephrosis. Chest X-Ray 02/10/18 00:00 IMPRESSION: Bibasilar densities as noted above Assessment & Plan - Diagnosis (1) Acute kidney injury superimposed on chronic kidney disease Is this a current diagnosis for this admission?: Yes Plan: Secondary to contrast-induced nephropathy causing ATN along with CHF and diuretics. Currently with increase and improve urine output. Agree with discontinuation of furosemide since she is in the diuretic phase of ATN seems like. Her kidney ultrasound showed that the right kidney seems to be bigger at 12.6 cm compared to the left kidney at 9.1 cm but interpretation also knows that this could be a limitation because of Sarai habitus. No hydronephrosis was found. Kidney function is slightly better today. Continue to monitor kidney function. She does not require any renal replacement therapy. (2) CKD (chronic kidney disease), stage III Is this a current diagnosis for this admission?: Yes Plan: She has not nephrotic range proteinuria with urine protein to creatinine ratio of 2.6. Serum protein electrophoresis still pending. Likely underlying causes be diabetic nephropathy with contribution of hypertensive nephrosclerosis. (3) CHF (congestive heart failure) Qualifiers: Heart failure type: unspecified Is this a current diagnosis for this admission?: Yes Plan: Repeat echocardiogram showed ejection fraction of 60%. (4) Diabetes mellitus type 2 in obese Is this a current diagnosis for this admission?: Yes (5) Acute UTI (urinary tract infection) Is this a current diagnosis for this admission?: Yes Plan: Secondary to ESBL E. coli. Defer antibiotic management to the hospitalist service. (6) Anemia, chronic disease Is this a current diagnosis for this admission?: Yes Plan: Patient was given 1 unit of packed RBC transfusion today. Her iron panel also showed a low iron of 45 and T sat of 17. I gave her a dose of IV Injectafer 750 mg. Repeat iron level after that showed improvement. She has positive occult blood in the stool but does not seem to be actively bleeding clinically. I will give her a dose of Procrit 20,000 units subcutaneously today. (7) Hypertension Is this a current diagnosis for this admission?: Yes (8) NILO (obstructive sleep apnea) Is this a current diagnosis for this admission?: Yes - Time Time with patient: 15-25 minutes
[2018-02-12] MEDS ORDERED: EPOETIN ALFA INJ 20000 UNIT/1 ML VIAL (RENAL) SUBCUT ONE (16:30)
[2018-02-12 17:37] LABS: A/G RATIO 1.1 (0.7-1.7); ALBUMIN 2 2.9 g/dL (2.9-4.4); ALPHA-2-GLOBULIN 2 0.7 g/dL (0.4-1.0); BETA GLOBULINS 0.8 g/dL (0.7-1.3); GLOBULIN TOTAL 2.6 g/dL (2.2-3.9); MONOCLONAL SPIKE 0.7 g/dL (Not Observ); PROTEIN TOTAL SERUM 5.5 g/dL (6.0-8.5)
[2018-02-12] MEDS: INSULIN GLARGINE,HUM.REC.ANLOG 1,000 UNIT/10 ML UNIT SUBCUT SCH (21:44)
[2018-02-12] MEDS: FAMOTIDINE 20 MG TABLET PO SCH (21:45)
[2018-02-12] MEDS: ATORVASTATIN CALCIUM 80 MG TABLET PO SCH (21:45)
[2018-02-13] MEDS: ONDANSETRON HCL INJ/PF 4 MG/2 ML SDV IV SCH ×3 (01:47→09:38)
[2018-02-13] MEDS: PIPERACILLIN SODIUM/TAZOBACTAM 2.25 GM in NORMAL SALINE 50 ML IV SCH ×4 (03:07→21:35)
[2018-02-13 04:56] LABS: ABSOLUTE BASOPHILS # (AUTO) 0.1 10^3/uL (0.0-0.2); ABSOLUTE EOSINOPHILS # (AUTO) 0.2 10^3/uL (0.0-0.6); ABSOLUTE LYMPHOCYTES (AUTO) 2.8 10^3/uL (0.5-4.7); ABSOLUTE MONOCYTES (AUTO) 0.8 10^3/uL (0.1-1.4); ABSOLUTE NEUT (AUTO) 3.1 10^3/uL (1.7-8.2); BASOPHILS % (AUTO) 0.9 % (0-2); EOSINOPHILS % (AUTO) 2.7 % (0-6); HEMATOCRIT 26.4 % (36.0-47.0); HEMOGLOBIN 9.2 g/dL (12.0-15.5); LYMPHOCYTES % (AUTO) 39.8 % (13-45); MEAN CORPUSCULAR HEMOGLOBIN 31.7 pg (27.0-33.4); MEAN CORPUSCULAR HGB CONC 34.7 g/dL (32.0-36.0); MEAN CORPUSCULAR VOLUME 91 fl (80-97); MONOCYTES % (AUTO) 11.6 % (3-13); PLATELET COUNT 244 10^3/uL (150-450); RED BLOOD COUNT 2.89 10^6/uL (3.72-5.28); RED CELL DISTRIBUTION WIDTH 15.7 % (11.5-14.0); TOTAL CELLS COUNTED % (AUTO) 100 %
[2018-02-13 05:21] LABS: ALANINE AMINOTRANSFERASE 12 U/L (9-52); ALBUMIN 2.9 g/dL (3.5-5.0); ALKALINE PHOSPHATASE 59 U/L (38-126); ASPARTATE AMINO TRANSFERASE 14 U/L (14-36); BILIRUBIN,DIRECT 0.2 mg/dL (0.0-0.4); BILIRUBIN,TOTAL 0.4 mg/dL (0.2-1.3); BLOOD UREA NITROGEN 50 mg/dL (7-20); CALCIUM 8.7 mg/dL (8.4-10.2); CARBON DIOXIDE 33 mmol/L (22-30); CHLORIDE 106 mmol/L (98-107); GLUCOSE 73 mg/dL (75-110); POTASSIUM 3.9 mmol/L (3.6-5.0); TOTAL PROTEIN 5.7 g/dL (6.3-8.2)
[2018-02-13 05:26] LABS: SODIUM 142.6 mmol/L (137-145)
[2018-02-13 05:34] LABS: ANION GAP 4 (5-19)
[2018-02-13] MEDS: AMLODIPINE BESYLATE 10 MG TABLET PO SCH (09:35)
[2018-02-13] MEDS: CETIRIZINE 5 MG TABLET PO SCH (09:35)
[2018-02-13] MEDS: HYDROCHLOROTHIAZIDE 25 MG TABLET PO SCH (09:35)
[2018-02-13] MEDS: GABAPENTIN 300 MG CAPSULE PO SCH ×2 (09:36→21:35)
[2018-02-13] MEDS: ENOXAPARIN SODIUM INJ 30 MG/0.3 ML DISP.SYRIN SUBCUT SCH (09:36)
[2018-02-13] MEDS: ESCITALOPRAM OXALATE 10 MG TABLET PO SCH (09:36)
[2018-02-13] MEDS: ASPIRIN 325 MG TABLET, ENT COATED PO SCH (09:36)
[2018-02-13] MEDS: EZETIMIBE 10 MG TABLET PO SCH (09:37)
[2018-02-13] MEDS: NITROGLYCERIN 2.5 MG (0.1 MG/HR) PATCH.TD24 TD SCH (09:37)
[2018-02-13] MEDS: INSULIN GLARGINE,HUM.REC.ANLOG 1,000 UNIT/10 ML UNIT SUBCUT SCH ×2 (09:37→18:16)
[2018-02-13] MEDS ORDERED: NITROGLYCERIN 0.4 MG/TAB 25 TAB/BOTTLE SL PRN (10:11)
--- NOTE | 2018-02-13 10:16 | PDOC PROGRESS REPORT ---
Subjective Progress Note for:: 02/13/18 Subjective:: 62-year-old female with history of CHF admitted yesterday with complaints of severe shortness of breath, hypoxic hypercapnic respiratory failure requiring BiPAP. She is comfortably in the bed on 2 L nasal cannula today. Denies any complaints. She said she is feeling much better today. 02/09/2018-patient is comfortably in the chair on nasal cannula. Denies any complaints today. Except getting short winded when she has minimal activity. She is using--CPAP at night. 02/10/[id number]-[id number]-old female with history of CHF EF of 48% admitted for severe shortness of breath, hypoxic hypercapnic respiratory failure requiring BiPAP. Today patient says she is not feeling well. Denies any chest pains. Denies any increased shortness of breath. Her blood sugars dropped this morning to 70s. Latest blood sugars are close to 100. Her heart rate is also down to 45 as per the nursing charge. Yesterday's change antibiotics based on ESBL E. coli in the urine. She was started on Zosyn based on the urine culture report. A consult was done. The concern about AK I may be secondary to CTA that was done during the hospital stay, congestive heart failure, diuretic therapy. 02/11/2018 58-year-old female with history of CHF EF of 48% admitted for hypoxic , hypercapnic respiratory failure requiring BiPAP. Pulse ox today is 91% on 2 L. She uses CPAP at home. She is comfortably in the bed. Denies any complaints. She got 1 unit of PRBC yesterday. Hemoglobin was improved to 9.8. She was bradycardic yesterday. Coreg was discontinued. And heart rate was improved to 66 today. Lasix was discontinued yesterday creatinine was improved from 2.64-2.38. She has blood sugars are 49. I am going to adjust her medications. 02/12/2018 patient is comfortably in the bed denies any complaints. She says she does not use oxygen at home. She uses CPAP at home. Pulse oxes are 93% 2 L. Spoke with the rn social services about possible need for the patient to go home on home oxygen 2 L per nasal cannula. No acute events in the last 24 hours. Indicating very well. 02/13/2018 patient is comfortably in the bed and went to talk to her she said she feeling the pain in her heart for the last 5-10 minutes according to her pain was 3-4 x 10. Localized no radiation. Associated with cough. I requested nurse to do the stat EKG and requested cardiac enzymes. I am also put the order start for order for morphine 2 mg IV 1 dose. I am going to order for nitroglycerin 0.4 mg sublingual every 5 minutes as needed for chest pains. Reason For Visit: SOB,CHF Physical Exam Vital Signs: Temp Pulse Resp BP Pulse Ox 97.8 F 63 18 142/60 H 95 02/13/18 08:17 02/13/18 08:17 02/13/18 08:17 02/13/18 08:17 02/13/18 08:17 Intake & Output 02/12/18 02/13/18 02/14/18 06:59 06:59 06:59 Intake Total 914 851 Output Total 1700 Balance -786 851 Weight 131 kg 123.3 kg General appearance: PRESENT: no acute distress Eye exam: PRESENT: PERRLA Mouth exam: PRESENT: moist Neck exam: ABSENT: carotid bruit, JVD, lymphadenopathy, thyromegaly Respiratory exam: PRESENT: clear to auscultation vadim. ABSENT: rales, rhonchi, wheezes Cardiovascular exam: PRESENT: RRR. ABSENT: diastolic murmur, rubs, systolic murmur GI/Abdominal exam: PRESENT: normal bowel sounds, soft. ABSENT: distended, guarding, mass, organolmegaly, rebound, tenderness Extremities exam: PRESENT: full ROM. ABSENT: calf tenderness, clubbing, pedal edema Neurological exam: PRESENT: alert, awake, oriented to person, oriented to place , oriented to time, oriented to situation, CN II-XII grossly intact. ABSENT: motor sensory deficit Psychiatric exam: PRESENT: appropriate affect, normal mood. ABSENT: homicidal ideation, suicidal ideation Results Laboratory Results: 02/13/18 04:42 02/13/18 04:42 02/13/18 02/13/18 04:42 04:42 WBC 7.0 RBC 2.89 L Hgb 9.2 L Hct 26.4 L MCV 91 MCH 31.7 MCHC 34.7 RDW 15.7 H Plt Count 244 Seg Neutrophils % 45.0 Lymphocytes % 39.8 Monocytes % 11.6 Eosinophils % 2.7 Basophils % 0.9 Absolute Neutrophils 3.1 Absolute Lymphocytes 2.8 Absolute Monocytes 0.8 Absolute Eosinophils 0.2 Absolute Basophils 0.1 Sodium 142.6 Potassium 3.9 Chloride 106 Carbon Dioxide 33 H Anion Gap 4 L BUN 50 H Creatinine 1.91 H Est GFR ( Amer) 32 L Est GFR (Non-Af Amer) 26 L Glucose 73 L Calcium 8.7 Magnesium 2.4 H Total Bilirubin 0.4 AST 14 ALT 12 Alkaline Phosphatase 59 Total Protein 5.7 L Albumin 2.9 L 02/07/18 02/07/18 02/07/18 16:00 16:00 21:58 Creatine Kinase CK-MB (CK-2) 0.73 0.72 Troponin I < 0.012 Cancelled < 0.012 NT-Pro-B Natriuret Pep 02/08/18 02/08/18 02/10/18 03:57 03:57 08:29 Creatine Kinase 73 CK-MB (CK-2) 0.62 Troponin I < 0.012 NT-Pro-B Natriuret Pep 2060 H 02/10/18 02/10/18 02/10/18 08:29 14:30 14:30 Creatine Kinase 78 CK-MB (CK-2) 0.94 1.22 Troponin I < 0.012 < 0.012 NT-Pro-B Natriuret Pep 02/10/18 02/10/18 02/11/18 20:27 20:27 04:37 Creatine Kinase 73 CK-MB (CK-2) 1.08 Troponin I < 0.012 NT-Pro-B Natriuret Pep 1360 H Impressions: Chest/Abdomen CTA 02/07/18 12:36 IMPRESSION: No pulmonary emboli. Bilateral pleural effusions right greater than left with basilar compressive atelectasis. Marked cardiac enlargement with small pericardial effusion. Renal Ultrasound 02/09/18 00:00 IMPRESSION: 1. The examination is limited due to the patient's body habitus. 2. No evidence of hydronephrosis. Chest X-Ray 02/10/18 00:00 IMPRESSION: Bibasilar densities as noted above Assessment & Plan - Diagnosis (1) Chest pain Is this a current diagnosis for this admission?: Yes Plan: 02/13/2018 patient complains of chest pain today. Requested for stat EKG and cardiac enzymes. I am going to put her on nitroglycerin 0.5 mg every 6 as needed for pain. And could to give morphine 2 mg IV every 4 as needed for chest pain. I am going to put her on aspirin 325 mg p.o. daily. Patient is already on Lovenox. (2) Acute kidney injury superimposed on chronic kidney disease Is this a current diagnosis for this admission?: Yes Plan: 02/10/2018-since creatinine today is 2.35. Admission creatinine is 1.1. She has underlying stage III kidney disease. But during the hospital stay creatinine continued to rise may be secondary to CTA that was done during the hospital stay, diuretic therapy, and CHF. Nephrology consult was requested. As per the recommendations were going to check urine protein creatinine ratio protein electrophoresis. As per the harpsichord maker there is no emergent need for dialysis. Patient with blood pressures were running low today. I discontinue her Lasix today. We are going to continue to monitor her renal function on daily basis. Continue lisinopril because of the KEYON.. Patient is nonoliguric urinary output is 2.4 L yesterday. Going to put her on fluid restriction 1.5 L/ day. The renal ultrasound was done yesterday no hydronephrosis was noted. . 02/11/2018-patient's admission creatinine is 1.1. Today it was 2.35. Yesterday it was peaked to 2.68. AKA may be secondary to contrast exposure. AKA secondary to ATN due to contrast exposure, congestive heart failure, diuretic therapy. Nephrology on board. Assessment from the nephrology is there is no emergent need for renal replacement therapy. Urinary output in the last 24 hours is 2.4 L. Renal ultrasound shows no hydronephrosis. Patient was placed on fluid restriction. Lisinopril is on hold for Keyon. 02/12/2018-patient's admission creatinine is 1.1. It was peaked to 2.68 on 01/2018. Slowly and gradually coming down. It was 2.13 today. He has nonoliguric AKA secondary to ATN due to contrast exposure, congestive heart failure, IV antibiotic therapy, UTI. She is in diuretic recovery phase. She is off the Lasix. Urine output in the last 24 hours is 2 L. Renal ultrasound was negative for hydronephrosis. Nephrology team is on board. Continue to follow her renal function. 02/13/2018-patient's admission creatinine is 1.1, peaked to 2.86 on 02/10/2018, it was improved to 1.91., Nephrology consult was called, the recommendation is there is no need for emergency dialysis, patient is off the Lasix. The acute kidney injury kidney injury most likely secondary to ATN due to contrast exposure, antibiotic therapy with Zosyn and vancomycin, diuretic challenge and UTI. Patient is anuric. Renal ultrasound ruled out hydronephrosis. We will continue to monitor the renal function on a daily basis. (3) Hypoxemia Is this a current diagnosis for this admission?: Yes Plan: 02/08/2018-patient was admitted with hypoxic hypercapnic respiratory failure may be secondary to CHF exacerbation. She will ABG this morning pH is 7.38/ PCO2 50/PO2 72 bicarb is 29. Initially she required BiPAP. Now she is on 2 L nasal cannula. She still uses BiPAP at night even at home. The echocardiogram , cardiology consult is pending. BNP is requested for today and tomorrow. Patient has a stress test done a few months ago post stress test left ventricular ejection fraction is 48% most likely systolic dysfunction. Chest CT shows cardiomegaly with small bilateral pleural effusions. Patient is on Lasix 40 mg IV every 8 hours, I decreased the frequency to every 12 hours today. Patient is complaining of short of breath with minimal activities like going to the restroom. I am going to request with a physical therapy consult. 02/09/2018-patient's pulse ox is 92% on 3 L oxygen. He is using CPAP at night. She is getting nebulizations every 4 as needed. We are going to change to every 6 as needed. Patient says she is feeling much better but still start winded with minimal activity. Physical therapy is following the patient. The echocardiogram pending. 02/10/[id number]-efyx-old female admitted with acute on chronic respiratory failure with hypoxia and hypercapnia. Patient still using BiPAP on as needed basis. She is getting nebulizations every 6 as needed. Pulse ox on BiPAP this morning is 97%. Cardiogram shows EF of 60% with left ventricular diastolic dysfunction. I am going to request for follow-up chest x-ray today. Plan is to continue the nebulizations, oxygen via nasal cannula to titrate as needed and continue BiPAP on as needed basis. 02/11/2018-pulse ox today on 2 L is 91%. Admitted for acute on chronic respiratory failure with hypoxia and hypercapnia requiring BiPAP. She uses at night at home. Chest examination today decreased bilateral air entry secondary to COPD, no wheezing no rhonchi heard . We will continue the BiPAP as needed basis. 02/12/2018 pulse ox is today on 2 L is 93 %. Patient is comfortably in the chair, communicating very well not in respiratory distress. Chest bilateral entry was decreased no wheezing no crepitations. I talked to rn social services in making arrangements to send the patient on 2 L oxygen nasal cannula continuous. The bicarb in chemistry is 31, and an ABG is 30, PCO2 is 57.5. Improving. My opinion hypoxia and hypercapnia are improving and coming close to the baseline. 02/13/2018-patient's pulse ox is today 95% on 1.5 L nasal cannula. Patient is rarely using BiPAP and over this. Opinion hypoxia and hypercapnia are improving , close to the baseline. We will continue the nebulizer treatments. (4) Diabetes mellitus type 2 in obese Is this a current diagnosis for this admission?: Yes Plan: 02/08/2018 patient has history of type 2 diabetes mellitus she is not in any prednisone or IV steroids. blood sugars are 324 this morning she is on sliding scale, getting glargine insulin 70 units every 12 hours. Order for hemoglobin A1c for tomorrow. We will continue the present management today. 02/08/2018-patient is getting insulin 70 units every 12 hours, insulin sliding scale before meals and at bedtime. Hemoglobin A1c 7.9. Latest blood sugar is 159. Continue the present management. 02/10/2018-patient has history of type 2 diabetes mellitus she is on Lantus 70 units subcu twice a day, she is also on NovoLog 35 units before meals at home. Here in this hospital she is getting only Lantus 70 units subcu twice a day. This morning her blood sugars dropped to 70s. Recheck blood sugar is 100. Patient said she did not miss any meals yesterday she ate good breakfast lunch and dinner. We will continue the present management. I have to mention patient is also on sliding scaleCOVERAGEbefore meals and at bedtime. Patient's hemoglobin A1c is 7.9. 02/11/2018-patient's blood sugars is 49 this morning. She is on Lantus 70 units subcu twice a day. Because of the appropriate diet she is getting here blood sugars are well controlled. At home she is taking Lantus 70 units subcu twice a day, NovoLog 35 units prior to meals. She is not getting NovoLog during this hospital stay. She is also on insulin sliding scale. I am going to decrease the Lantus to 60 units twice a day. I am going to request for a dietary consult. 02/12/2018-patient's blood sugar is 126 today. No episodes of hypoglycemia in the last 24 hours. Patient is on insulin sliding scale before meals and at bedtime. She is also on Lantus 60 units twice a day. Dietitian is on board. Patient's hemoglobin A1c is 7.9. Again diet exercise weight loss was stressed. 02/13/2018 patient's blood sugar to drop to 55 last night. Presently on Lantus 45 units twice a day. I am going to decrease it to 40 twice a day. Patient's hemoglobin A1c is 7.9. Patient used to be on Lantus 70 units twice daily and NovoLog 35 units prior to meals at home. May be because of the proper diet at the blood sugars are relatively controlled. (5) Acute UTI (urinary tract infection) Is this a current diagnosis for this admission?: Yes Plan: 02/08/2018-patient was on Levaquin 750 mg for UTI urine cultures are pending. She denies any fever. She is afebrile temperature is 97.6. 02/09/2018-urine cultures came back positive for gram-negative rods. Patient is on levofloxacillin 750 mg p.o. daily. She is afebrile. Temperature is 97.9. Will continue the present management. 02/10/2018-the urine cultures came back positive for ESBL E. coli. Resistant to levofloxacin and. Sensitivity to Zosyn. The levofloxacin was discontinued and Zosyn was started yesterday. 02/11/2018, urine culture is growing ESBL E. coli. Patient was started on Zosyn yesterday. Patient is afebrile. T-max is 98.1. UTI may be a contributing factor for KEYON. 02/12/2018 urine culture positive for ESBL E. coli. Patient is on Zosyn. Afebrile in the last 24 hours. We will continue the current regimen. 02/13/2018-patient has urine culture ESBL E. coli. Patient is on Zosyn. We will continue the present management. Patient is afebrile. (6) Morbid obesity Is this a current diagnosis for this admission?: Yes Plan: 02/08/2018-BMI is 50+. Diet and exercise weight loss was advised. Dietary consult was requested. 02/09/2018 dietary consult was requested we continue the present plan. 02/10/2018-patient's BMI is more than 50 dietary consult was requested. primary special educator consult was requested. Patient's weight today is 135.3 kg. Diet exercise weight loss was advised. 02/11/2018-diet and exercise weight loss was advised. BMI is more than 50. 02/12/2018 BMI is more than 50. Dietary consult was requested. Again diet exercise weight loss was advised. 02/13/2018-patient's BMI is more than 50 we will continue the present management. (7) CHF (congestive heart failure) Qualifiers: Heart failure type: unspecified Is this a current diagnosis for this admission?: Yes Plan: 02/08/2018 latest stress test with EF of 48%. Patient says she does not know anything about congestive heart failure. She is not on Lasix at home. Requested for cardiology consult for further recommendations. Echocardiogram also requested. BNP was requested. We could check daily weights. 02/09/2018-on examination chest was clear. No pedal edema. BNP is 2060. He is on Lasix 40 mg IV every 12 hours. His weight is 134.8 kg. She lost 0.5 kg since yesterday. 02/10/2018-echocardiogram was done left ventricular ejection fraction is more than 60% the impression is left ventricular diastolic dysfunction. She is not in fluid overload on examination. 02/11/2018 that was done left ventricular function is 60%. Normal systolic left ventricular function. Patient has chronic CHF. 02/12/2018 BNP is coming down today it is 1360. Yesterday it is s 2000. Cardiogram shows LV function of 60%. Normal systolic left ventricular function. Patient has chronic CHF. X-ray shows patient has cardiomegaly and small bilateral pleural effusions. Chronic CHF. Left ventricular diastolic function was normal. Right heart function is unable to assess the technical limitations as per early childhood. 02/13/2018-patient has a history of congestive heart failure chest x-ray showing cardiomegaly with bilateral small pleural effusions she has chronic CHF left ventricular diastolic function was normal right heart function was unable to visualize because of the technical limitations. (8) CKD (chronic kidney disease), stage III Is this a current diagnosis for this admission?: Yes Plan: 02/08/2018-patient has stage III CKD. The creatinine is 1.36 in November. On admission it was 1.1 today it was 1.38. We are going to continue to check renal panel and daily basis. This Keyon may be secondary to CHF exacerbation. 02/09/2018-the creatinine worsened from 1.38-2.04 today. May be secondary to CHF exacerbation. Nephrology consult was requested. May be secondary to UTI. Be going to check daily renal panel. Renal ultrasound was requested. 02/10/2018-today's creatinine is 2.35. It is may be secondary to multifactorial. Likely CHF exacerbation, diuretic therapy, UTI, CTA that was done during the hospital stay. The lisinopril was discontinued for the time being. Lasix was also on hold. 02/11/2018-yesterday creatinine is 2.68. Today it was 2.34. KEYON on CKD may be secondary to contrast exposure, IV antibiotic therapy with Zosyn, vancomycin, diuretic therapy, CHF. Nephrology consult was done. Protein creatinine ratio is 2.6 g. Protein electrophoresis is pending. No need for emergent dialysis at this time. Patient is nonoliguric. We will continue to follow the renal panel. 02/12/2018 CKD is most likely secondary to diabetes mellitus. And creatinine ratio is 2.6 g. Patient is nonoliguric. Keyon on CKD secondary to contrast exposure, congestive heart failure, diuretic therapy, IV antibiotic therapy. Kidney function is slowly and steadily improving. Nephrology team is on board. Ultrasound negative for hydronephrosis. 02/13/2018 CKD is most likely secondary to diabetes mellitus. Nephrology is following the patient. (9) Anemia, chronic disease Is this a current diagnosis for this admission?: Yes Plan: 02/09/2018-hemoglobin on admission is 10.2, today 7.9. Type and crossmatch was requested and requested 1 unit of blood transfusion. We are going to check stool for occult blood. 02/10/2018-yesterday initial hemoglobin is 7.9 and repeat hemoglobin come back as 8.6 so we withheld blood transfusion. Today's hemoglobin is 7.8 and patient looks pale and clammy, she is going to get 1 unit of PRBC today. Going to continue to check CBC done on daily basis. Iron levels were requested. 02/11/2018 yesterday's hemoglobin is 7.9. Patient got 1 unit of PRBC. Latest hemoglobin is 9.8. Iron studies were done. Iron saturation is 17%. Patient received IV iron 750 mg. Patient has anemia of chronic disease secondary to CKD. 02/12/2018 latest hemoglobin is 9.1. She received 1 unit of PRBC. Hemoglobin stabilized. Anemia of chronic disease secondary to poor kidney function. She got IV iron 750 mg. 02/13/2018 patient's hemoglobin today is 9.2. Stable. Disease secondary to may be CKD. She got a 1 dose of IV iron transfusion. (10) Bradycardia Is this a current diagnosis for this admission?: Yes Plan: 1211 2017-todays patient's heart rate went down to 45. Patient is asymptomatic denies any chest pains. I stopped Coreg. We are going to continue amlodipine. Also stop Lasix. Cardiac enzymes were requested. As I mentioned above echocardiogram with EF of 60% 02/11/2018-patient heart rate is improved to 66 today. Coreg was discontinued yesterday. Lasix was discontinued. Cardiac enzymes are negative. EF is 60% patient has chronic congestive heart failure. Patient's heart rate is 72 today. Coreg was discontinued. Blood pressures are relatively stable. I am going to follow her on a regular basis continue to monitor heart rate. Pleural 2017 patient's heart rate 63. She was on Coreg which was discontinued. - Time Time Spent with patient: 15-24 minutes Medications reviewed and adjusted accordingly: Yes Anticipated discharge: Home
[2018-02-13] MEDS: MORPHINE SULFATE 10 MG/ML INJ IV PRN (10:26)
[2018-02-13 12:03] LABS: CREATINE KINASE MB 0.39 ng/mL (<4.55)
[2018-02-13 12:12] LABS: TROPONIN I < 0.012 ng/mL
[2018-02-13 16:46] LABS: CREATINE KINASE MB 0.55 ng/mL (<4.55)
[2018-02-13 16:48] LABS: TROPONIN I < 0.012 ng/mL
[2018-02-13] MEDS ORDERED: INSULIN GLARGINE,HUM.REC.ANLOG 1,000 UNIT/10 ML UNIT SUBCUT SCH (18:00)
[2018-02-13] MEDS: FAMOTIDINE 20 MG TABLET PO SCH (21:35)
[2018-02-13] MEDS: ATORVASTATIN CALCIUM 80 MG TABLET PO SCH (21:35)
[2018-02-13 22:43] LABS: CREATINE KINASE MB 0.55 ng/mL (<4.55)
[2018-02-13 22:53] LABS: TROPONIN I < 0.012 ng/mL
[2018-02-14] MEDS: PIPERACILLIN SODIUM/TAZOBACTAM 2.25 GM in NORMAL SALINE 50 ML IV SCH ×4 (02:55→21:42)
[2018-02-14 05:15] LABS: ABSOLUTE BASOPHILS # (AUTO) 0.1 10^3/uL (0.0-0.2); ABSOLUTE EOSINOPHILS # (AUTO) 0.3 10^3/uL (0.0-0.6); ABSOLUTE LYMPHOCYTES (AUTO) 2.5 10^3/uL (0.5-4.7); ABSOLUTE NEUT (AUTO) 4.6 10^3/uL (1.7-8.2); EOSINOPHILS % (AUTO) 3.2 % (0-6); HEMATOCRIT 26.4 % (36.0-47.0); LYMPHOCYTES % (AUTO) 30.2 % (13-45); MEAN CORPUSCULAR HEMOGLOBIN 31.3 pg (27.0-33.4); MEAN CORPUSCULAR HGB CONC 34.1 g/dL (32.0-36.0); MEAN CORPUSCULAR VOLUME 92 fl (80-97); MONOCYTES % (AUTO) 11.4 % (3-13); PLATELET COUNT 277 10^3/uL (150-450); RED BLOOD COUNT 2.87 10^6/uL (3.72-5.28); RED CELL DISTRIBUTION WIDTH 15.3 % (11.5-14.0); SEGMENTED NEUTROPHILS % (AUTO) 54.2 % (42-78); TOTAL CELLS COUNTED % (AUTO) 100 %; WHITE BLOOD COUNT 8.4 10^3/uL (4.0-10.5)
[2018-02-14 05:55] LABS: ALANINE AMINOTRANSFERASE 15 U/L (9-52); ALBUMIN 2.9 g/dL (3.5-5.0); ALKALINE PHOSPHATASE 61 U/L (38-126); ASPARTATE AMINO TRANSFERASE 14 U/L (14-36); BILIRUBIN,DIRECT 0.2 mg/dL (0.0-0.4); BILIRUBIN,TOTAL 0.5 mg/dL (0.2-1.3); BLOOD UREA NITROGEN 45 mg/dL (7-20); CALCIUM 8.8 mg/dL (8.4-10.2); GLUCOSE 80 mg/dL (75-110); POTASSIUM 4.2 mmol/L (3.6-5.0); TOTAL PROTEIN 5.8 g/dL (6.3-8.2)
[2018-02-14 06:01] LABS: CARBON DIOXIDE 34 mmol/L (22-30); CHLORIDE 107 mmol/L (98-107); SODIUM 144.5 mmol/L (137-145)
[2018-02-14 06:05] LABS: ANION GAP 4 (5-19)
[2018-02-14] MEDS: ENOXAPARIN SODIUM INJ 30 MG/0.3 ML DISP.SYRIN SUBCUT SCH (09:20)
[2018-02-14] MEDS: NITROGLYCERIN 2.5 MG (0.1 MG/HR) PATCH.TD24 TD SCH (09:20)
[2018-02-14] MEDS: EZETIMIBE 10 MG TABLET PO SCH (09:20)
[2018-02-14] MEDS: INSULIN GLARGINE,HUM.REC.ANLOG 1,000 UNIT/10 ML UNIT SUBCUT SCH ×2 (09:21→17:49)
[2018-02-14] MEDS: ASPIRIN 325 MG TABLET, ENT COATED PO SCH (09:21)
[2018-02-14] MEDS: ESCITALOPRAM OXALATE 10 MG TABLET PO SCH (09:21)
[2018-02-14] MEDS: AMLODIPINE BESYLATE 10 MG TABLET PO SCH (09:21)
[2018-02-14] MEDS: GABAPENTIN 300 MG CAPSULE PO SCH ×2 (09:21→21:42)
[2018-02-14] MEDS: HYDROCHLOROTHIAZIDE 25 MG TABLET PO SCH (09:21)
[2018-02-14] MEDS: CETIRIZINE 5 MG TABLET PO SCH (09:21)
--- NOTE | 2018-02-14 11:23 | PDOC PROGRESS REPORT ---
Subjective Progress Note for:: 02/14/18 Subjective:: 62-year-old female with history of CHF admitted yesterday with complaints of severe shortness of breath, hypoxic hypercapnic respiratory failure requiring BiPAP. She is comfortably in the bed on 2 L nasal cannula today. Denies any complaints. She said she is feeling much better today. 02/09/2018-patient is comfortably in the chair on nasal cannula. Denies any complaints today. Except getting short winded when she has minimal activity. She is using--CPAP at night. 02/10/[id number]-old female with history of CHF EF of 48% admitted for severe shortness of breath, hypoxic hypercapnic respiratory failure requiring BiPAP. Today patient says she is not feeling well. Denies any chest pains. Denies any increased shortness of breath. Her blood sugars dropped this morning to 70s. Latest blood sugars are close to 100. Her heart rate is also down to 45 as per the nursing charge. Yesterday's change antibiotics based on ESBL E. coli in the urine. She was started on Zosyn based on the urine culture report. A consult was done. The concern about AK I may be secondary to CTA that was done during the hospital stay, congestive heart failure, diuretic therapy. 02/11/2018 58-year-old female with history of CHF EF of 48% admitted for hypoxic , hypercapnic respiratory failure requiring BiPAP. Pulse ox today is 91% on 2 L. She uses CPAP at home. She is comfortably in the bed. Denies any complaints. She got 1 unit of PRBC yesterday. Hemoglobin was improved to 9.8. She was bradycardic yesterday. Coreg was discontinued. And heart rate was improved to 66 today. Lasix was discontinued yesterday creatinine was improved from 2.64-2.38. She has blood sugars are 49. I am going to adjust her medications. 02/12/2018 patient is comfortably in the bed denies any complaints. She says she does not use oxygen at home. She uses CPAP at home. Pulse oxes are 93% 2 L. Spoke with the licensed social worker about possible need for the patient to go home on home oxygen 2 L per nasal cannula. No acute events in the last 24 hours. Indicating very well. 02/13/2018 patient is comfortably in the bed and went to talk to her she said she feeling the pain in her heart for the last 5-10 minutes according to her pain was 3-4 x 10. Localized no radiation. Associated with cough. I requested nurse to do the stat EKG and requested cardiac enzymes. I am also put the order start for order for morphine 2 mg IV 1 dose. I am going to order for nitroglycerin 0.4 mg sublingual every 5 minutes as needed for chest pains. 2017 patient is comfortably sleeping in the bed wearing the BiPAP machine discussed the plan with the nurses today they said last night she complaining of mild chest pain and nitroglycerin was given and it was resolved no complaints of any problems today. No acute events in the last 24 hours. Yesterday patient complained of chest pains we did EKG which was normal in the sense that there is no evidence of acute AL. Cardiac enzymes are negative. Patient is saturating at 95% on 1/2 L. Reason For Visit: SOB,CHF Physical Exam Vital Signs: Temp Pulse Resp BP Pulse Ox 97.8 F 69 14 149/63 H 99 02/14/18 08:14 02/14/18 08:14 02/14/18 10:05 02/14/18 08:14 02/14/18 10:05 Intake & Output 02/13/18 02/14/18 02/15/18 06:59 06:59 06:59 Intake Total 851 1088 50 Balance 851 1088 50 Weight 123.3 kg 132.9 kg General appearance: PRESENT: no acute distress Head exam: PRESENT: atraumatic Eye exam: PRESENT: PERRLA Mouth exam: PRESENT: moist Neck exam: ABSENT: carotid bruit, JVD, lymphadenopathy, thyromegaly Respiratory exam: PRESENT: decreased breath sounds Cardiovascular exam: PRESENT: RRR. ABSENT: diastolic murmur, rubs, systolic murmur GI/Abdominal exam: PRESENT: normal bowel sounds, soft, other - Obese abdomen.. ABSENT: distended, guarding, mass, organolmegaly, rebound, tenderness Neurological exam: PRESENT: alert, awake, oriented to person, oriented to place , oriented to time, oriented to situation, CN II-XII grossly intact. ABSENT: motor sensory deficit Psychiatric exam: PRESENT: appropriate affect, normal mood. ABSENT: homicidal ideation, suicidal ideation Results Laboratory Results: 02/14/18 04:40 02/14/18 04:40 02/10/18 02/14/18 02/14/18 04:25 04:40 04:40 WBC 8.4 RBC 2.87 L Hgb 9.0 L Hct 26.4 L MCV 92 MCH 31.3 MCHC 34.1 RDW 15.3 H Plt Count 277 Seg Neutrophils % 54.2 Lymphocytes % 30.2 Monocytes % 11.4 Eosinophils % 3.2 Basophils % 1.0 Absolute Neutrophils 4.6 Absolute Lymphocytes 2.5 Absolute Monocytes 1.0 Absolute Eosinophils 0.3 Absolute Basophils 0.1 Sodium 144.5 Potassium 4.2 Chloride 107 Carbon Dioxide 34 H Anion Gap 4 L BUN 45 H Creatinine 1.75 H Est GFR ( Amer) 35 L Est GFR (Non-Af Amer) 29 L Glucose 80 Calcium 8.8 Total Bilirubin 0.5 AST 14 ALT 15 Alkaline Phosphatase 61 Total Protein 5.5 L 5.8 L Albumin 2.9 2.9 L 02/07/18 02/07/18 02/07/18 16:00 16:00 21:58 Creatine Kinase CK-MB (CK-2) 0.73 0.72 Troponin I < 0.012 Cancelled < 0.012 NT-Pro-B Natriuret Pep 02/08/18 02/08/18 02/10/18 03:57 03:57 08:29 Creatine Kinase 73 CK-MB (CK-2) 0.62 Troponin I < 0.012 NT-Pro-B Natriuret Pep 2060 H 02/10/18 02/10/18 02/10/18 08:29 14:30 14:30 Creatine Kinase 78 CK-MB (CK-2) 0.94 1.22 Troponin I < 0.012 < 0.012 NT-Pro-B Natriuret Pep 02/10/18 02/10/18 02/11/18 20:27 20:27 04:37 Creatine Kinase 73 CK-MB (CK-2) 1.08 Troponin I < 0.012 NT-Pro-B Natriuret Pep 1360 H 02/13/18 02/13/18 02/13/18 11:15 11:15 15:50 Creatine Kinase 34 41 CK-MB (CK-2) 0.39 Troponin I < 0.012 NT-Pro-B Natriuret Pep 02/13/18 02/13/1802/13/18 15:50 22:00 22:00 Creatine Kinase 40 CK-MB (CK-2) 0.55 0.55 Troponin I < 0.012 < 0.012 NT-Pro-B Natriuret Pep Impressions: Chest/Abdomen CTA 02/07/18 12:36 IMPRESSION: No pulmonary emboli. Bilateral pleural effusions right greater than left with basilar compressive atelectasis. Marked cardiac enlargement with small pericardial effusion. Renal Ultrasound 02/09/18 00:00 IMPRESSION: 1. The examination is limited due to the patient's body habitus. 2. No evidence of hydronephrosis. Chest X-Ray 02/10/18 00:00 IMPRESSION: Bibasilar densities as noted above Assessment & Plan - Diagnosis (1) Chest pain Is this a current diagnosis for this admission?: Yes Plan: 02/13/2018 patient complains of chest pain today. Requested for stat EKG and cardiac enzymes. I am going to put her on nitroglycerin 0.5 mg every 6 as needed for pain. And could to give morphine 2 mg IV every 4 as needed for chest pain. I am going to put her on aspirin 325 mg p.o. daily. Patient is already on Lovenox. 02/14/2018 no complaints of chest pain today. EKG was stable. Cardiac enzymes are negative. She is getting nitroglycerin 0.4 mg every 5 minutes as needed for chest pain and morphine 2 mg IV every 4 as needed for chest pain. Aspirin she is on Lovenox. (2) Acute kidney injury superimposed on chronic kidney disease Is this a current diagnosis for this admission?: Yes Plan: 02/10/2018-since creatinine today is 2.35. Admission creatinine is 1.1. She has underlying stage III kidney disease. But during the hospital stay creatinine continued to rise may be secondary to CTA that was done during the hospital stay, diuretic therapy, and CHF. Nephrology consult was requested. As per the recommendations were going to check urine protein creatinine ratio protein electrophoresis. As per the disc pad plate filler there is no emergent need for dialysis. Patient with blood pressures were running low today. I discontinue her Lasix today. We are going to continue to monitor her renal function on daily basis. Continue lisinopril because of the KEYON.. Patient is nonoliguric urinary output is 2.4 L yesterday. Going to put her on fluid restriction 1.5 L/ day. The renal ultrasound was done yesterday no hydronephrosis was noted. . 02/11/2018-patient's admission creatinine is 1.1. Today it was 2.35. Yesterday it was peaked to 2.68. AKA may be secondary to contrast exposure. AKA secondary to ATN due to contrast exposure, congestive heart failure, diuretic therapy. Nephrology on board. Assessment from the nephrology is there is no emergent need for renal replacement therapy. Urinary output in the last 24 hours is 2.4 L. Renal ultrasound shows no hydronephrosis. Patient was placed on fluid restriction. Lisinopril is on hold for Keyon. 02/12/2018-patient's admission creatinine is 1.1. It was peaked to 2.68 on 01/2018. Slowly and gradually coming down. It was 2.13 today. He has nonoliguric AKA secondary to ATN due to contrast exposure, congestive heart failure, IV antibiotic therapy, UTI. She is in diuretic recovery phase. She is off the Lasix. Urine output in the last 24 hours is 2 L. Renal ultrasound was negative for hydronephrosis. Nephrology team is on board. Continue to follow her renal function. 02/13/2018-patient's admission creatinine is 1.1, peaked to 2.86 on 02/10/2018, it was improved to 1.91., Nephrology consult was called, the recommendation is there is no need for emergency dialysis, patient is off the Lasix. The acute kidney injury kidney injury most likely secondary to ATN due to contrast exposure, antibiotic therapy with Zosyn and vancomycin, diuretic challenge and UTI. Patient is anuric. Renal ultrasound ruled out hydronephrosis. We will continue to monitor the renal function on a daily basis. 02/14/2018 admission creatinine is 1.1 peaked to 2.6 on 02/10/2018, improved to 1.75 today. Continues improvement in creatinine. (3) Hypoxemia Is this a current diagnosis for this admission?: Yes Plan: 02/08/2018-patient was admitted with hypoxic hypercapnic respiratory failure may be secondary to CHF exacerbation. She will ABG this morning pH is 7.38/ PCO2 50/PO2 72 bicarb is 29. Initially she required BiPAP. Now she is on 2 L nasal cannula. She still uses BiPAP at night even at home. The echocardiogram , cardiology consult is pending. BNP is requested for today and tomorrow. Patient has a stress test done a few months ago post stress test left ventricular ejection fraction is 48% most likely systolic dysfunction. Chest CT shows cardiomegaly with small bilateral pleural effusions. Patient is on Lasix 40 mg IV every 8 hours, I decreased the frequency to every 12 hours today. Patient is complaining of short of breath with minimal activities like going to the restroom. I am going to request with a physical therapy consult. 02/09/2018-patient's pulse ox is 92% on 3 L oxygen. He is using CPAP at night. She is getting nebulizations every 4 as needed. We are going to change to every 6 as needed. Patient says she is feeling much better but still start winded with minimal activity. Physical therapy is following the patient. The echocardiogram pending. 02/10/[id number]-kedu-old female admitted with acute on chronic respiratory failure with hypoxia and hypercapnia. Patient still using BiPAP on as needed basis. She is getting nebulizations every 6 as needed. Pulse ox on BiPAP this morning is 97%. Cardiogram shows EF of 60% with left ventricular diastolic dysfunction. I am going to request for follow-up chest x-ray today. Plan is to continue the nebulizations, oxygen via nasal cannula to titrate as needed and continue BiPAP on as needed basis. 02/11/2018-pulse ox today on 2 L is 91%. Admitted for acute on chronic respiratory failure with hypoxia and hypercapnia requiring BiPAP. She uses at night at home. Chest examination today decreased bilateral air entry secondary to COPD, no wheezing no rhonchi heard . We will continue the BiPAP as needed basis. 02/12/2018 pulse ox is today on 2 L is 93 %. Patient is comfortably in the chair, communicating very well not in respiratory distress. Chest bilateral entry was decreased no wheezing no crepitations. I talked to licensed social worker in making arrangements to send the patient on 2 L oxygen nasal cannula continuous. The bicarb in chemistry is 31, and an ABG is 30, PCO2 is 57.5. Improving. My opinion hypoxia and hypercapnia are improving and coming close to the baseline. 02/13/2018-patient's pulse ox is today 95% on 1.5 L nasal cannula. Patient is rarely using BiPAP and over this. Opinion hypoxia and hypercapnia are improving , close to the baseline. We will continue the nebulizer treatments 02/14/2018 patient is on 1-1/2 L nasal cannula and pulse ox is 95%. We are going to check her room air pulse ox is today to see if she need any oxygen to be on once she is discharged. (4) Diabetes mellitus type 2 in obese Is this a current diagnosis for this admission?: Yes Plan: 02/08/2018 patient has history of type 2 diabetes mellitus she is not in any prednisone or IV steroids. blood sugars are 324 this morning she is on sliding scale, getting glargine insulin 70 units every 12 hours. Order for hemoglobin A1c for tomorrow. We will continue the present management today. 02/08/2018-patient is getting insulin 70 units every 12 hours, insulin sliding scale before meals and at bedtime. Hemoglobin A1c 7.9. Latest blood sugar is 159. Continue the present management. 02/10/2018-patient has history of type 2 diabetes mellitus she is on Lantus 70 units subcu twice a day, she is also on NovoLog 35 units before meals at home. Here in this hospital she is getting only Lantus 70 units subcu twice a day. This morning her blood sugars dropped to 70s. Recheck blood sugar is 100. Patient said she did not miss any meals yesterday she ate good breakfast lunch and dinner. We will continue the present management. I have to mention patient is also on sliding scaleCOVERAGEbefore meals and at bedtime. Patient's hemoglobin A1c is 7.9. 02/11/2018-patient's blood sugars is 49 this morning. She is on Lantus 70 units subcu twice a day. Because of the appropriate diet she is getting here blood sugars are well controlled. At home she is taking Lantus 70 units subcu twice a day, NovoLog 35 units prior to meals. She is not getting NovoLog during this hospital stay. She is also on insulin sliding scale. I am going to decrease the Lantus to 60 units twice a day. I am going to request for a dietary consult. 02/12/2018-patient's blood sugar is 126 today. No episodes of hypoglycemia in the last 24 hours. Patient is on insulin sliding scale before meals and at bedtime. She is also on Lantus 60 units twice a day. Dietitian is on board. Patient's hemoglobin A1c is 7.9. Again diet exercise weight loss was stressed. 02/13/2018 patient's blood sugar to drop to 55 last night. Presently on Lantus 45 units twice a day. I am going to decrease it to 40 twice a day. Patient's hemoglobin A1c is 7.9. Patient used to be on Lantus 70 units twice daily and NovoLog 35 units prior to meals at home. May be because of the proper diet at the blood sugars are relatively controlled. 02/14/2018 patient's blood sugars latest one is 80. Is on Lantus 40 units twice a day. Hemoglobin A1c is a 7.9. To decrease the Lantus to 35 units twice a day today. (5) Acute UTI (urinary tract infection) Is this a current diagnosis for this admission?: Yes Plan: 02/08/2018-patient was on Levaquin 750 mg for UTI urine cultures are pending. She denies any fever. She is afebrile temperature is 97.6. 02/09/2018-urine cultures came back positive for gram-negative rods. Patient is on levofloxacillin 750 mg p.o. daily. She is afebrile. Temperature is 97.9. Will continue the present management. 02/10/2018-the urine cultures came back positive for ESBL E. coli. Resistant to levofloxacin and. Sensitivity to Zosyn. The levofloxacin was discontinued and Zosyn was started yesterday. 02/11/2018, urine culture is growing ESBL E. coli. Patient was started on Zosyn yesterday. Patient is afebrile. T-max is 98.1. UTI may be a contributing factor for KEYON. 02/12/2018 urine culture positive for ESBL E. coli. Patient is on Zosyn. Afebrile in the last 24 hours. We will continue the current regimen. 02/13/2018-patient has urine culture ESBL E. coli. Patient is on Zosyn. We will continue the present management. Patient is afebrile. 02/14/2018 urine culture came back as ESBL E. coli. Zosyn. He is on Zosyn since 02/10/2018. Febrile.. (6) Morbid obesity Is this a current diagnosis for this admission?: Yes Plan: 02/08/2018-BMI is 50+. Diet and exercise weight loss was advised. Dietary consult was requested. 02/09/2018 dietary consult was requested we continue the present plan. 02/10/2018-patient's BMI is more than 50 dietary consult was requested. adaptive physical educator consult was requested. Patient's weight today is 135.3 kg. Diet exercise weight loss was advised. 02/11/2018-diet and exercise weight loss was advised. BMI is more than 50. 02/12/2018 BMI is more than 50. Dietary consult was requested. Again diet exercise weight loss was advised. 02/13/2018-patient's BMI is more than 50 we will continue the present management. 02/14/2018 patient's BMI is more than 50. Dietary advice was given. (7) CHF (congestive heart failure) Qualifiers: Heart failure type: unspecified Is this a current diagnosis for this admission?: Yes Plan: 02/08/2018 latest stress test with EF of 48%. Patient says she does not know anything about congestive heart failure. She is not on Lasix at home. Requested for cardiology consult for further recommendations. Echocardiogram also requested. BNP was requested. We could check daily weights. 02/09/2018-on examination chest was clear. No pedal edema. BNP is 2060. He is on Lasix 40 mg IV every 12 hours. His weight is 134.8 kg. She lost 0.5 kg since yesterday. 02/10/2018-echocardiogram was done left ventricular ejection fraction is more than 60% the impression is left ventricular diastolic dysfunction. She is not in fluid overload on examination. 02/11/2018 that was done left ventricular function is 60%. Normal systolic left ventricular function. Patient has chronic CHF. 02/12/2018 BNP is coming down today it is 1360. Yesterday it is s 2000. Cardiogram shows LV function of 60%. Normal systolic left ventricular function. Patient has chronic CHF. X-ray shows patient has cardiomegaly and small bilateral pleural effusions. Chronic CHF. Left ventricular diastolic function was normal. Right heart function is unable to assess the technical limitations as per client relations representative. 02/13/2018-patient has a history of congestive heart failure chest x-ray showing cardiomegaly with bilateral small pleural effusions she has chronic CHF left ventricular diastolic function was normal right heart function was unable to visualize because of the technical limitations. 02/14/2018 patient has history of congestive heart failure with cardiomegaly and bilateral small pleural effusions. Left ventricular function was normal. Unable to assess the right heart function. There is a fluid overload. She is off the Lasix. Pressure today is 1 49/63. (8) CKD (chronic kidney disease), stage III Is this a current diagnosis for this admission?: Yes Plan: 02/08/2018-patient has stage III CKD. The creatinine is 1.36 in November. On admission it was 1.1 today it was 1.38. We are going to continue to check renal panel and daily basis. This Keyon may be secondary to CHF exacerbation. 02/09/2018-the creatinine worsened from 1.38-2.04 today. May be secondary to CHF exacerbation. Nephrology consult was requested. May be secondary to UTI. Be going to check daily renal panel. Renal ultrasound was requested. 02/10/2018-today's creatinine is 2.35. It is may be secondary to multifactorial. Likely CHF exacerbation, diuretic therapy, UTI, CTA that was done during the hospital stay. The lisinopril was discontinued for the time being. Lasix was also on hold. 02/11/2018-yesterday creatinine is 2.68. Today it was 2.34. KEYON on CKD may be secondary to contrast exposure, IV antibiotic therapy with Zosyn, vancomycin, diuretic therapy, CHF. Nephrology consult was done. Protein creatinine ratio is 2.6 g. Protein electrophoresis is pending. No need for emergent dialysis at this time. Patient is nonoliguric. We will continue to follow the renal panel. 02/12/2018 CKD is most likely secondary to diabetes mellitus. And creatinine ratio is 2.6 g. Patient is nonoliguric. Keyon on CKD secondary to contrast exposure, congestive heart failure, diuretic therapy, IV antibiotic therapy. Kidney function is slowly and steadily improving. Nephrology team is on board. Ultrasound negative for hydronephrosis. 02/13/2018 CKD is most likely secondary to diabetes mellitus. Nephrology is following the patient. 2017 chronic kidney disease probably secondary to diabetes mellitus. Creatinine today is 1.75. KEYON resolving. (9) Anemia, chronic disease Is this a current diagnosis for this admission?: Yes Plan: 02/09/2018-hemoglobin on admission is 10.2, today 7.9. Type and crossmatch was requested and requested 1 unit of blood transfusion. We are going to check stool for occult blood. 02/10/2018-yesterday initial hemoglobin is 7.9 and repeat hemoglobin come back as 8.6 so we withheld blood transfusion. Today's hemoglobin is 7.8 and patient looks pale and clammy, she is going to get 1 unit of PRBC today. Going to continue to check CBC done on daily basis. Iron levels were requested. 02/11/2018 yesterday's hemoglobin is 7.9. Patient got 1 unit of PRBC. Latest hemoglobin is 9.8. Iron studies were done. Iron saturation is 17%. Patient received IV iron 750 mg. Patient has anemia of chronic disease secondary to CKD. 02/12/2018 latest hemoglobin is 9.1. She received 1 unit of PRBC. Hemoglobin stabilized. Anemia of chronic disease secondary to poor kidney function. She got IV iron 750 mg. 02/13/2018 patient's hemoglobin today is 9.2. Stable. Disease secondary to may be CKD. She got a 1 dose of IV iron transfusion. 02/14/2018 today's hemoglobin is 9.0. Chronic anemia secondary to chronic kidney disease. Hemoglobin is stable. (10) Bradycardia Is this a current diagnosis for this admission?: Yes Plan: 1211 2017-todays patient's heart rate went down to 45. Patient is asymptomatic denies any chest pains. I stopped Coreg. We are going to continue amlodipine. Also stop Lasix. Cardiac enzymes were requested. As I mentioned above echocardiogram with EF of 60% 02/11/2018-patient heart rate is improved to 66 today. Coreg was discontinued yesterday. Lasix was discontinued. Cardiac enzymes are negative. EF is 60% patient has chronic congestive heart failure. Patient's heart rate is 72 today. Coreg was discontinued. Blood pressures are relatively stable. I am going to follow her on a regular basis continue to monitor heart rate. 02/13/18 patient's heart rate 63. She was on Coreg which was discontinued. 06/15/2017-pulse rate is 69 today we are planning to hold Coreg for now. - Time Time Spent with patient: 15-24 minutes Smoking Cessation Education: 3 to 10 minutes Anticipated discharge: Home
[2018-02-14] MEDS: INSULIN REG, HUMAN 100 UNIT/ML 3 ML VIAL (PYX) SUBCUT PRN ×3 (12:18→21:42)
[2018-02-14] MEDS ORDERED: INSULIN GLARGINE,HUM.REC.ANLOG 1,000 UNIT/10 ML UNIT SUBCUT SCH (18:00)
[2018-02-14] MEDS: ATORVASTATIN CALCIUM 80 MG TABLET PO SCH (21:42)
[2018-02-14] MEDS: FAMOTIDINE 20 MG TABLET PO SCH (21:42)
--- NOTE | 2018-02-15 00:53 | EKG REPORT ---
SEVERITY:- ABNORMAL ECG - SINUS RHYTHM CONSIDER INFERIOR INFARCT PROBABLE ANTEROSEPTAL INFARCT, AGE INDETERM : Confirmed by: Nicole Rodriguez MD 15-Feb-2018 00:53:21
[2018-02-15] MEDS: PIPERACILLIN SODIUM/TAZOBACTAM 2.25 GM in NORMAL SALINE 50 ML IV SCH ×2 (03:19→09:16)
[2018-02-15 07:12] LABS: ABSOLUTE BASOPHILS # (AUTO) 0.1 10^3/uL (0.0-0.2); ABSOLUTE EOSINOPHILS # (AUTO) 0.2 10^3/uL (0.0-0.6); ABSOLUTE LYMPHOCYTES (AUTO) 1.5 10^3/uL (0.5-4.7); ABSOLUTE MONOCYTES (AUTO) 0.8 10^3/uL (0.1-1.4); ABSOLUTE NEUT (AUTO) 6.1 10^3/uL (1.7-8.2); EOSINOPHILS % (AUTO) 2.3 % (0-6); HEMATOCRIT 26.6 % (36.0-47.0); HEMOGLOBIN 9.1 g/dL (12.0-15.5); LYMPHOCYTES % (AUTO) 16.9 % (13-45); MEAN CORPUSCULAR HEMOGLOBIN 31.4 pg (27.0-33.4); MEAN CORPUSCULAR HGB CONC 34.3 g/dL (32.0-36.0); MEAN CORPUSCULAR VOLUME 92 fl (80-97); MONOCYTES % (AUTO) 9.4 % (3-13); PLATELET COUNT 282 10^3/uL (150-450); RED BLOOD COUNT 2.89 10^6/uL (3.72-5.28); RED CELL DISTRIBUTION WIDTH 15.7 % (11.5-14.0); SEGMENTED NEUTROPHILS % (AUTO) 70.4 % (42-78); TOTAL CELLS COUNTED % (AUTO) 100 %; WHITE BLOOD COUNT 8.7 10^3/uL (4.0-10.5)
[2018-02-15 07:50] LABS: ALANINE AMINOTRANSFERASE 16 U/L (9-52); ALBUMIN 2.9 g/dL (3.5-5.0); ALKALINE PHOSPHATASE 64 U/L (38-126); ANION GAP 5 (5-19); ASPARTATE AMINO TRANSFERASE 13 U/L (14-36); BILIRUBIN,DIRECT 0.2 mg/dL (0.0-0.4); BILIRUBIN,TOTAL 0.4 mg/dL (0.2-1.3); BLOOD UREA NITROGEN 40 mg/dL (7-20); CALCIUM 8.9 mg/dL (8.4-10.2); CARBON DIOXIDE 33 mmol/L (22-30); CHLORIDE 107 mmol/L (98-107); GLUCOSE 89 mg/dL (75-110); POTASSIUM 3.8 mmol/L (3.6-5.0); SODIUM 144.8 mmol/L (137-145); TOTAL PROTEIN 5.5 g/dL (6.3-8.2)
[2018-02-15] MEDS: CETIRIZINE 5 MG TABLET PO SCH (09:16)
[2018-02-15] MEDS: ASPIRIN 325 MG TABLET, ENT COATED PO SCH (09:16)
[2018-02-15] MEDS: GABAPENTIN 300 MG CAPSULE PO SCH ×2 (09:16→21:41)
[2018-02-15] MEDS: NITROGLYCERIN 2.5 MG (0.1 MG/HR) PATCH.TD24 TD SCH (09:17)
[2018-02-15] MEDS: AMLODIPINE BESYLATE 10 MG TABLET PO SCH (09:17)
[2018-02-15] MEDS: ESCITALOPRAM OXALATE 10 MG TABLET PO SCH (09:17)
[2018-02-15] MEDS: HYDROCHLOROTHIAZIDE 25 MG TABLET PO SCH (09:18)
[2018-02-15] MEDS: EZETIMIBE 10 MG TABLET PO SCH (09:18)
[2018-02-15] MEDS: ENOXAPARIN SODIUM INJ 30 MG/0.3 ML DISP.SYRIN SUBCUT SCH (09:21)
[2018-02-15] MEDS: INSULIN GLARGINE,HUM.REC.ANLOG 1,000 UNIT/10 ML UNIT SUBCUT SCH ×2 (09:21→22:31)
--- NOTE | 2018-02-15 10:36 | PDOC PROGRESS REPORT ---
Subjective Progress Note for:: 02/15/18 Subjective:: 62-year-old female with history of CHF admitted yesterday with complaints of severe shortness of breath, hypoxic hypercapnic respiratory failure requiring BiPAP. She is comfortably in the bed on 2 L nasal cannula today. Denies any complaints. She said she is feeling much better today. 02/09/2018-patient is comfortably in the chair on nasal cannula. Denies any complaints today. Except getting short winded when she has minimal activity. She is using--CPAP at night. 02/10/[id number]-mvfr-old female with history of CHF EF of 48% admitted for severe shortness of breath, hypoxic hypercapnic respiratory failure requiring BiPAP. Today patient says she is not feeling well. Denies any chest pains. Denies any increased shortness of breath. Her blood sugars dropped this morning to 70s. Latest blood sugars are close to 100. Her heart rate is also down to 45 as per the nursing charge. Yesterday's change antibiotics based on ESBL E. coli in the urine. She was started on Zosyn based on the urine culture report. A consult was done. The concern about AK I may be secondary to CTA that was done during the hospital stay, congestive heart failure, diuretic therapy. 02/11/2018 58-year-old female with history of CHF EF of 48% admitted for hypoxic , hypercapnic respiratory failure requiring BiPAP. Pulse ox today is 91% on 2 L. She uses CPAP at home. She is comfortably in the bed. Denies any complaints. She got 1 unit of PRBC yesterday. Hemoglobin was improved to 9.8. She was bradycardic yesterday. Coreg was discontinued. And heart rate was improved to 66 today. Lasix was discontinued yesterday creatinine was improved from 2.64-2.38. She has blood sugars are 49. I am going to adjust her medications. 02/12/2018 patient is comfortably in the bed denies any complaints. She says she does not use oxygen at home. She uses CPAP at home. Pulse oxes are 93% 2 L. Spoke with the social welfare administrator about possible need for the patient to go home on home oxygen 2 L per nasal cannula. No acute events in the last 24 hours. Indicating very well. 02/13/2018 patient is comfortably in the bed and went to talk to her she said she feeling the pain in her heart for the last 5-10 minutes according to her pain was 3-4 x 10. Localized no radiation. Associated with cough. I requested nurse to do the stat EKG and requested cardiac enzymes. I am also put the order start for order for morphine 2 mg IV 1 dose. I am going to order for nitroglycerin 0.4 mg sublingual every 5 minutes as needed for chest pains. 02/14 patient is comfortably sleeping in the bed wearing the BiPAP machine discussed the plan with the nurses today they said last night she complaining of mild chest pain and nitroglycerin was given and it was resolved no complaints of any problems today. No acute events in the last 24 hours. Yesterday patient complained of chest pains we did EKG which was normal in the sense that there is no evidence of acute ME. Cardiac enzymes are negative. Patient is saturating at 95% on 1/2 L. 02/15/2018-patient is comfortably sleeping in the bed denies any complaints no acute events last night but her blood sugar did drop a little bit and I am going to adjust insulin. Because the care with Dr. Verduzco asbestos siding mechanic is recommendation is to change Zosyn to imipenem. I completely agree with his recommendation. We checked for the patient's oxygen needs. Patient pulse ox on room air is 88%. With walking dropped to in the 79%. After placing her on a 2 L nasal cannula pulse ox improved to more than 98%. Reason For Visit: SOB,CHF Physical Exam Vital Signs: Temp Pulse Resp BP Pulse Ox 97.7 F 55 L 16 116/62 94 02/15/18 08:11 02/15/18 08:11 02/15/18 08:11 02/15/18 08:11 02/15/18 08:11 Intake & Output 02/14/18 02/15/18 02/16/18 06:59 06:59 06:59 Intake Total 1088 1325 Balance 1088 1325 Weight 132.9 kg 135.3 kg General appearance: PRESENT: no acute distress Head exam: PRESENT: atraumatic Eye exam: PRESENT: PERRLA Neck exam: ABSENT: carotid bruit, JVD, lymphadenopathy, thyromegaly Respiratory exam: PRESENT: decreased breath sounds Cardiovascular exam: PRESENT: bradycardia GI/Abdominal exam: PRESENT: normal bowel sounds, soft. ABSENT: distended, guarding, mass, organolmegaly, rebound, tenderness Neurological exam: PRESENT: alert, awake, oriented to person, oriented to place , oriented to time, oriented to situation, CN II-XII grossly intact. ABSENT: motor sensory deficit Psychiatric exam: PRESENT: appropriate affect, normal mood. ABSENT: homicidal ideation, suicidal ideation Results Laboratory Results: 02/15/18 07:02 02/15/18 07:02 02/15/18 02/15/18 07:02 07:02 WBC 8.7 RBC 2.89 L Hgb 9.1 L Hct 26.6 L MCV 92 MCH 31.4 MCHC 34.3 RDW 15.7 H Plt Count 282 Seg Neutrophils % 70.4 Lymphocytes % 16.9 Monocytes % 9.4 Eosinophils % 2.3 Basophils % 1.0 Absolute Neutrophils 6.1 Absolute Lymphocytes 1.5 Absolute Monocytes 0.8 Absolute Eosinophils 0.2 Absolute Basophils 0.1 Sodium 144.8 Potassium 3.8 Chloride 107 Carbon Dioxide 33 H Anion Gap 5 BUN 40 H Creatinine 1.48 H Est GFR ( Amer) 43 L Est GFR (Non-Af Amer) 36 L Glucose 89 Calcium 8.9 Total Bilirubin 0.4 AST 13 L ALT 16 Alkaline Phosphatase 64 Total Protein 5.5 L Albumin 2.9 L 02/07/18 02/07/18 02/07/18 16:00 16:00 21:58 Creatine Kinase CK-MB (CK-2) 0.73 0.72 Troponin I < 0.012 Cancelled < 0.012 NT-Pro-B Natriuret Pep 02/08/18 02/08/18 02/10/18 03:57 03:57 08:29 Creatine Kinase 73 CK-MB (CK-2) 0.62 Troponin I < 0.012 NT-Pro-B Natriuret Pep 2060 H 02/10/18 02/10/18 02/10/18 08:29 14:30 14:30 Creatine Kinase 78 CK-MB (CK-2) 0.94 1.22 Troponin I < 0.012 < 0.012 NT-Pro-B Natriuret Pep 02/10/18 02/10/18 02/11/18 20:27 20:27 04:37 Creatine Kinase 73 CK-MB (CK-2) 1.08 Troponin I < 0.012 NT-Pro-B Natriuret Pep 1360 H 02/13/18 02/13/18 02/13/18 11:15 11:15 15:50 Creatine Kinase 34 41 CK-MB (CK-2) 0.39 Troponin I < 0.012 NT-Pro-B Natriuret Pep 02/13/18 02/13/18 02/13/18 15:50 22:00 22:00 Creatine Kinase 40 CK-MB (CK-2) 0.55 0.55 Troponin I < 0.012 < 0.012 NT-Pro-B Natriuret Pep Impressions: Chest/Abdomen CTA 02/07/18 12:36 IMPRESSION: No pulmonary emboli. Bilateral pleural effusions right greater than left with basilar compressive atelectasis. Marked cardiac enlargement with small pericardial effusion. Renal Ultrasound 02/09/18 00:00 IMPRESSION: 1. The examination is limited due to the patient's body habitus. 2. No evidence of hydronephrosis. Chest X-Ray 02/10/18 00:00 IMPRESSION: Bibasilar densities as noted above Assessment & Plan - Diagnosis (1) Chest pain Is this a current diagnosis for this admission?: Yes Plan: 02/13/2018 patient complains of chest pain today. Requested for stat EKG and cardiac enzymes. I am going to put her on nitroglycerin 0.5 mg every 6 as needed for pain. And could to give morphine 2 mg IV every 4 as needed for chest pain. I am going to put her on aspirin 325 mg p.o. daily. Patient is already on Lovenox. 02/14/2018 no complaints of chest pain today. EKG was stable. Cardiac enzymes are negative. She is getting nitroglycerin 0.4 mg every 5 minutes as needed for chest pain and morphine 2 mg IV every 4 as needed for chest pain. Aspirin she is on Lovenox. 02/15/2018 no complaints of chest pain today. We will continue the present management. (2) Acute kidney injury superimposed on chronic kidney disease Is this a current diagnosis for this admission?: Yes Plan: 02/10/2018-since creatinine today is 2.35. Admission creatinine is 1.1. She has underlying stage III kidney disease. But during the hospital stay creatinine continued to rise may be secondary to CTA that was done during the hospital stay, diuretic therapy, and CHF. Nephrology consult was requested. As per the recommendations were going to check urine protein creatinine ratio protein electrophoresis. As per the asbestos siding mechanic there is no emergent need for dialysis. Patient with blood pressures were running low today. I discontinue her Lasix today. We are going to continue to monitor her renal function on daily basis. Continue lisinopril because of the KEYON.. Patient is nonoliguric urinary output is 2.4 L yesterday. Going to put her on fluid restriction 1.5 L/ day. The renal ultrasound was done yesterday no hydronephrosis was noted. . 02/11/2018-patient's admission creatinine is 1.1. Today it was 2.35. Yesterday it was peaked to 2.68. AKA may be secondary to contrast exposure. AKA secondary to ATN due to contrast exposure, congestive heart failure, diuretic therapy. Nephrology on board. Assessment from the nephrology is there is no emergent need for renal replacement therapy. Urinary output in the last 24 hours is 2.4 L. Renal ultrasound shows no hydronephrosis. Patient was placed on fluid restriction. Lisinopril is on hold for Keyon. 02/12/2018-patient's admission creatinine is 1.1. It was peaked to 2.68 on 01/2018. Slowly and gradually coming down. It was 2.13 today. He has nonoliguric AKA secondary to ATN due to contrast exposure, congestive heart failure, IV antibiotic therapy, UTI. She is in diuretic recovery phase. She is off the Lasix. Urine output in the last 24 hours is 2 L. Renal ultrasound was negative for hydronephrosis. Nephrology team is on board. Continue to follow her renal function. 02/13/2018-patient's admission creatinine is 1.1, peaked to 2.86 on 02/10/2018, it was improved to 1.91., Nephrology consult was called, the recommendation is there is no need for emergency dialysis, patient is off the Lasix. The acute kidney injury kidney injury most likely secondary to ATN due to contrast exposure, antibiotic therapy with Zosyn and vancomycin, diuretic challenge and UTI. Patient is anuric. Renal ultrasound ruled out hydronephrosis. We will continue to monitor the renal function on a daily basis. 02/14/2018 admission creatinine is 1.1 peaked to 2.6 on 02/10/2018, improved to 1.75 today. Continues improvement in creatinine. 02/15/2018-patient creatinine is improved to 1.48 today. We will continue to follow the renal panel today. (3) Hypoxemia Is this a current diagnosis for this admission?: Yes Plan: 02/08/2018-patient was admitted with hypoxic hypercapnic respiratory failure may be secondary to CHF exacerbation. She will ABG this morning pH is 7.38/ PCO2 50/PO2 72 bicarb is 29. Initially she required BiPAP. Now she is on 2 L nasal cannula. She still uses BiPAP at night even at home. The echocardiogram , cardiology consult is pending. BNP is requested for today and tomorrow. Patient has a stress test done a few months ago post stress test left ventricular ejection fraction is 48% most likely systolic dysfunction. Chest CT shows cardiomegaly with small bilateral pleural effusions. Patient is on Lasix 40 mg IV every 8 hours, I decreased the frequency to every 12 hours today. Patient is complaining of short of breath with minimal activities like going to the restroom. I am going to request with a physical therapy consult. 02/09/2018-patient's pulse ox is 92% on 3 L oxygen. He is using CPAP at night. She is getting nebulizations every 4 as needed. We are going to change to every 6 as needed. Patient says she is feeling much better but still start winded with minimal activity. Physical therapy is following the patient. The echocardiogram pending. 02/10/[id number]-dwvg-old female admitted with acute on chronic respiratory failure with hypoxia and hypercapnia. Patient still using BiPAP on as needed basis. She is getting nebulizations every 6 as needed. Pulse ox on BiPAP this morning is 97%. Cardiogram shows EF of 60% with left ventricular diastolic dysfunction. I am going to request for follow-up chest x-ray today. Plan is to continue the nebulizations, oxygen via nasal cannula to titrate as needed and continue BiPAP on as needed basis. 02/11/2018-pulse ox today on 2 L is 91%. Admitted for acute on chronic respiratory failure with hypoxia and hypercapnia requiring BiPAP. She uses at night at home. Chest examination today decreased bilateral air entry secondary to COPD, no wheezing no rhonchi heard . We will continue the BiPAP as needed basis. 02/12/2018 pulse ox is today on 2 L is 93 %. Patient is comfortably in the chair, communicating very well not in respiratory distress. Chest bilateral entry was decreased no wheezing no crepitations. I talked to social welfare administrator in making arrangements to send the patient on 2 L oxygen nasal cannula continuous. The bicarb in chemistry is 31, and an ABG is 30, PCO2 is 57.5. Improving. My opinion hypoxia and hypercapnia are improving and coming close to the baseline. 02/13/2018-patient's pulse ox is today 95% on 1.5 L nasal cannula. Patient is rarely using BiPAP and over this. Opinion hypoxia and hypercapnia are improving , close to the baseline. We will continue the nebulizer treatments 02/14/2018 patient is on 1-1/2 L nasal cannula and pulse ox is 95%. We are going to check her room air pulse ox is today to see if she need any oxygen to be on once she is discharged. 02/15/2018-patient qualifies for home oxygen. On room air pulse ox's are 86-88% . On ambulation it was dropped to 79%. After placing 2 L oxygen pulse ox rate improved to 98%. (4) Diabetes mellitus type 2 in obese Is this a current diagnosis for this admission?: Yes Plan: 02/08/2018 patient has history of type 2 diabetes mellitus she is not in any prednisone or IV steroids. blood sugars are 324 this morning she is on sliding scale, getting glargine insulin 70 units every 12 hours. Order for hemoglobin A1c for tomorrow. We will continue the present management today. 02/08/2018-patient is getting insulin 70 units every 12 hours, insulin sliding scale before meals and at bedtime. Hemoglobin A1c 7.9. Latest blood sugar is 159. Continue the present management. 02/10/2018-patient has history of type 2 diabetes mellitus she is on Lantus 70 units subcu twice a day, she is also on NovoLog 35 units before meals at home. Here in this hospital she is getting only Lantus 70 units subcu twice a day. This morning her blood sugars dropped to 70s. Recheck blood sugar is 100. Patient said she did not miss any meals yesterday she ate good breakfast lunch and dinner. We will continue the present management. I have to mention patient is also on sliding scaleCOVERAGEbefore meals and at bedtime. Patient's hemoglobin A1c is 7.9. 02/11/2018-patient's blood sugars is 49 this morning. She is on Lantus 70 units subcu twice a day. Because of the appropriate diet she is getting here blood sugars are well controlled. At home she is taking Lantus 70 units subcu twice a day, NovoLog 35 units prior to meals. She is not getting NovoLog during this hospital stay. She is also on insulin sliding scale. I am going to decrease the Lantus to 60 units twice a day. I am going to request for a dietary consult. 02/12/2018-patient's blood sugar is 126 today. No episodes of hypoglycemia in the last 24 hours. Patient is on insulin sliding scale before meals and at bedtime. She is also on Lantus 60 units twice a day. Dietitian is on board. Patient's hemoglobin A1c is 7.9. Again diet exercise weight loss was stressed. 02/13/2018 patient's blood sugar to drop to 55 last night. Presently on Lantus 45 units twice a day. I am going to decrease it to 40 twice a day. Patient's hemoglobin A1c is 7.9. Patient used to be on Lantus 70 units twice daily and NovoLog 35 units prior to meals at home. May be because of the proper diet at the blood sugars are relatively controlled. 02/14/2018 patient's blood sugars latest one is 80. Is on Lantus 40 units twice a day. Hemoglobin A1c is a 7.9. To decrease the Lantus to 35 units twice a day today. 02/15/2018-patient is on Lantus 35 units twice a day. Patient blood sugar dropped to 56 around 6 PM yesterday. This morning is 89. I decreased the Lantus to 30 units twice a day. She is getting regular fingersticks for glucose monitoring. (5) Acute UTI (urinary tract infection) Is this a current diagnosis for this admission?: Yes Plan: 02/08/2018-patient was on Levaquin 750 mg for UTI urine cultures are pending. She denies any fever. She is afebrile temperature is 97.6. 02/09/2018-urine cultures came back positive for gram-negative rods. Patient is on levofloxacillin 750 mg p.o. daily. She is afebrile. Temperature is 97.9. Will continue the present management. 02/10/2018-the urine cultures came back positive for ESBL E. coli. Resistant to levofloxacin and. Sensitivity to Zosyn. The levofloxacin was discontinued and Zosyn was started yesterday. 02/11/2018, urine culture is growing ESBL E. coli. Patient was started on Zosyn yesterday. Patient is afebrile. T-max is 98.1. UTI may be a contributing factor for KEYON. 02/12/2018 urine culture positive for ESBL E. coli. Patient is on Zosyn. Afebrile in the last 24 hours. We will continue the current regimen. 02/13/2018-patient has urine culture ESBL E. coli. Patient is on Zosyn. We will continue the present management. Patient is afebrile. 02/14/2018 urine culture came back as ESBL E. coli. Zosyn. He is on Zosyn since 02/10/2018. Febrile.. 2017 urine culture came back ESBL E. coli. Patient is on Zosyn. Switch to imipenem and I discussed the renal dosing issue with the pharmacist. (6) Morbid obesity Is this a current diagnosis for this admission?: Yes Plan: 02/08/2018-BMI is 50+. Diet and exercise weight loss was advised. Dietary consult was requested. 02/09/2018 dietary consult was requested we continue the present plan. 02/10/2018-patient's BMI is more than 50 dietary consult was requested. bundler seasonal greenery consult was requested. Patient's weight today is 135.3 kg. Diet exercise weight loss was advised. 02/11/2018-diet and exercise weight loss was advised. BMI is more than 50. 02/12/2018 BMI is more than 50. Dietary consult was requested. Again diet exercise weight loss was advised. 02/13/2018-patient's BMI is more than 50 we will continue the present management. 02/14/2018 patient's BMI is more than 50. Dietary advice was given. 02/15/2018-again I stressed importance of diet exercise weight loss. (7) CHF (congestive heart failure) Qualifiers: Heart failure type: unspecified Is this a current diagnosis for this admission?: Yes Plan: 02/08/2018 latest stress test with EF of 48%. Patient says she does not know anything about congestive heart failure. She is not on Lasix at home. Requested for cardiology consult for further recommendations. Echocardiogram also requested. BNP was requested. We could check daily weights. 02/09/2018-on examination chest was clear. No pedal edema. BNP is 2060. He is on Lasix 40 mg IV every 12 hours. His weight is 134.8 kg. She lost 0.5 kg since yesterday. 02/10/2018-echocardiogram was done left ventricular ejection fraction is more than 60% the impression is left ventricular diastolic dysfunction. She is not in fluid overload on examination. 02/11/2018 that was done left ventricular function is 60%. Normal systolic left ventricular function. Patient has chronic CHF. 02/12/2018 BNP is coming down today it is 1360. Yesterday it is s 2000. Cardiogram shows LV function of 60%. Normal systolic left ventricular function. Patient has chronic CHF. X-ray shows patient has cardiomegaly and small bilateral pleural effusions. Chronic CHF. Left ventricular diastolic function was normal. Right heart function is unable to assess the technical limitations as per home care coordinator. 02/13/2018-patient has a history of congestive heart failure chest x-ray showing cardiomegaly with bilateral small pleural effusions she has chronic CHF left ventricular diastolic function was normal right heart function was unable to visualize because of the technical limitations. 02/14/2018 patient has history of congestive heart failure with cardiomegaly and bilateral small pleural effusions. Left ventricular function was normal. Unable to assess the right heart function. There is a fluid overload. She is off the Lasix. Pressure today is 149/63. 2017-on examination chest was clear. There is no pedal edema. No signs of fluid overload. She is off the Lasix. Left ventricular function is normal. Unable to assess the right heart function. (8) CKD (chronic kidney disease), stage III Is this a current diagnosis for this admission?: Yes Plan: 02/08/2018-patient has stage III CKD. The creatinine is 1.36 in November. On admission it was 1.1 today it was 1.38. We are going to continue to check renal panel and daily basis. This Keyon may be secondary to CHF exacerbation. 02/09/2018-the creatinine worsened from 1.38-2.04 today. May be secondary to CHF exacerbation. Nephrology consult was requested. May be secondary to UTI. Be going to check daily renal panel. Renal ultrasound was requested. 02/10/2018-today's creatinine is 2.35. It is may be secondary to multifactorial. Likely CHF exacerbation, diuretic therapy, UTI, CTA that was done during the hospital stay. The lisinopril was discontinued for the time being. Lasix was also on hold. 02/11/2018-yesterday creatinine is 2.68. Today it was 2.34. KEYON on CKD may be secondary to contrast exposure, IV antibiotic therapy with Zosyn, vancomycin, diuretic therapy, CHF. Nephrology consult was done. Protein creatinine ratio is 2.6 g. Protein electrophoresis is pending. No need for emergent dialysis at this time. Patient is nonoliguric. We will continue to follow the renal panel. 02/12/2018 CKD is most likely secondary to diabetes mellitus. And creatinine ratio is 2.6 g. Patient is nonoliguric. Keyon on CKD secondary to contrast exposure, congestive heart failure, diuretic therapy, IV antibiotic therapy. Kidney function is slowly and steadily improving. Nephrology team is on board. Ultrasound negative for hydronephrosis. 02/13/2018 CKD is most likely secondary to diabetes mellitus. Nephrology is following the patient. 02/14 chronic kidney disease probably secondary to diabetes mellitus. Creatinine today is 1.75. KEYON resolving. 02/15/2018-patient has history of chronic kidney disease secondary to diabetes mellitus. And KEYON is resolving. (9) Anemia, chronic disease Is this a current diagnosis for this admission?: Yes Plan: 02/09/2018-hemoglobin on admission is 10.2, today 7.9. Type and crossmatch was requested and requested 1 unit of blood transfusion. We are going to check stool for occult blood. 02/10/2018-yesterday initial hemoglobin is 7.9 and repeat hemoglobin come back as 8.6 so we withheld blood transfusion. Today's hemoglobin is 7.8 and patient looks pale and clammy, she is going to get 1 unit of PRBC today. Going to continue to check CBC done on daily basis. Iron levels were requested. 02/11/2018 yesterday's hemoglobin is 7.9. Patient got 1 unit of PRBC. Latest hemoglobin is 9.8. Iron studies were done. Iron saturation is 17%. Patient received IV iron 750 mg. Patient has anemia of chronic disease secondary to CKD. 02/12/2018 latest hemoglobin is 9.1. She received 1 unit of PRBC. Hemoglobin stabilized. Anemia of chronic disease secondary to poor kidney function. She got IV iron 750 mg. 02/13/2018 patient's hemoglobin today is 9.2. Stable. Disease secondary to may be CKD. She got a 1 dose of IV iron transfusion. 02/14/2018 today's hemoglobin is 9.0. Chronic anemia secondary to chronic kidney disease. Hemoglobin is stable. 02/15/2018 hemoglobin is 9.1 today. Stable. (10) Bradycardia Is this a current diagnosis for this admission?: Yes Plan: 1211 2017-todays patient's heart rate went down to 45. Patient is asymptomatic denies any chest pains. I stopped Coreg. We are going to continue amlodipine. Also stop Lasix. Cardiac enzymes were requested. As I mentioned above echocardiogram with EF of 60% 02/11/2018-patient heart rate is improved to 66 today. Coreg was discontinued yesterday. Lasix was discontinued. Cardiac enzymes are negative. EF is 60% patient has chronic congestive heart failure. Patient's heart rate is 72 today. Coreg was discontinued. Blood pressures are relatively stable. I am going to follow her on a regular basis continue to monitor heart rate. 02/13/18 patient's heart rate 63. She was on Coreg which was discontinued. 02/14/2018-pulse rate is 69 today we are planning to hold Coreg for now. 02/15/2018-pulse rate today is 55. She is off the Coreg. Still heart rate is in the lower 50s since yesterday. I decreased the amlodipine from 10 to 5 mg today. - Time Time Spent with patient: 15-24 minutes Medications reviewed and adjusted accordingly: Yes Anticipated discharge: Home
[2018-02-15] MEDS: IMIPENEM/CILASTATIN SODIUM 500 MG in NORMAL SALINE 100 ML IV SCH ×2 (11:47→17:56)
[2018-02-15] MEDS: INSULIN REG, HUMAN 100 UNIT/ML 3 ML VIAL (PYX) SUBCUT PRN ×2 (17:49→22:30)
[2018-02-15] MEDS: FAMOTIDINE 20 MG TABLET PO SCH (21:41)
[2018-02-15] MEDS: ATORVASTATIN CALCIUM 80 MG TABLET PO SCH (21:41)
[2018-02-15] MEDS ORDERED: AMLODIPINE BESYLATE 5 MG TABLET PO SCH (22:00)
[2018-02-15] MEDS ORDERED: INSULIN GLARGINE,HUM.REC.ANLOG 1,000 UNIT/10 ML UNIT SUBCUT SCH (22:00)
[2018-02-16] MEDS: IMIPENEM/CILASTATIN SODIUM 500 MG in NORMAL SALINE 100 ML IV SCH ×3 (03:06→17:13)
[2018-02-16 05:22] LABS: ABSOLUTE BASOPHILS # (AUTO) 0.1 10^3/uL (0.0-0.2); ABSOLUTE EOSINOPHILS # (AUTO) 0.2 10^3/uL (0.0-0.6); ABSOLUTE LYMPHOCYTES (AUTO) 2.4 10^3/uL (0.5-4.7); ABSOLUTE NEUT (AUTO) 4.5 10^3/uL (1.7-8.2); EOSINOPHILS % (AUTO) 2.1 % (0-6); HEMATOCRIT 26.8 % (36.0-47.0); HEMOGLOBIN 9.2 g/dL (12.0-15.5); MEAN CORPUSCULAR HEMOGLOBIN 31.4 pg (27.0-33.4); MEAN CORPUSCULAR HGB CONC 34.2 g/dL (32.0-36.0); MEAN CORPUSCULAR VOLUME 92 fl (80-97); MONOCYTES % (AUTO) 12.1 % (3-13); PLATELET COUNT 300 10^3/uL (150-450); RED BLOOD COUNT 2.92 10^6/uL (3.72-5.28); RED CELL DISTRIBUTION WIDTH 15.5 % (11.5-14.0); SEGMENTED NEUTROPHILS % (AUTO) 54.8 % (42-78); TOTAL CELLS COUNTED % (AUTO) 100 %; WHITE BLOOD COUNT 8.1 10^3/uL (4.0-10.5)
[2018-02-16 05:49] LABS: ALANINE AMINOTRANSFERASE 20 U/L (9-52); ALKALINE PHOSPHATASE 67 U/L (38-126); ASPARTATE AMINO TRANSFERASE 16 U/L (14-36); BILIRUBIN,DIRECT 0.2 mg/dL (0.0-0.4); BILIRUBIN,TOTAL 0.4 mg/dL (0.2-1.3); BLOOD UREA NITROGEN 35 mg/dL (7-20); CALCIUM 9.1 mg/dL (8.4-10.2); GLUCOSE 94 mg/dL (75-110); POTASSIUM 3.9 mmol/L (3.6-5.0); TOTAL PROTEIN 5.8 g/dL (6.3-8.2)
[2018-02-16 05:54] LABS: CARBON DIOXIDE 34 mmol/L (22-30); CHLORIDE 107 mmol/L (98-107); SODIUM 142.2 mmol/L (137-145)
[2018-02-16 05:55] LABS: ANION GAP 1 (5-19)
[2018-02-16] MEDS ORDERED: IMIPENEM/CILASTATIN SODIUM INJ 500 MG VIAL IV SCH (10:00)
[2018-02-16] MEDS: ESCITALOPRAM OXALATE 10 MG TABLET PO SCH (10:19)
[2018-02-16] MEDS: GABAPENTIN 300 MG CAPSULE PO SCH ×2 (10:19→21:39)
[2018-02-16] MEDS: ASPIRIN 325 MG TABLET, ENT COATED PO SCH (10:19)
[2018-02-16] MEDS: HYDROCHLOROTHIAZIDE 25 MG TABLET PO SCH (10:19)
[2018-02-16] MEDS: EZETIMIBE 10 MG TABLET PO SCH (10:19)
[2018-02-16] MEDS: CETIRIZINE 5 MG TABLET PO SCH (10:19)
[2018-02-16] MEDS: NITROGLYCERIN 2.5 MG (0.1 MG/HR) PATCH.TD24 TD SCH (10:19)
[2018-02-16] MEDS: INSULIN GLARGINE,HUM.REC.ANLOG 1,000 UNIT/10 ML UNIT SUBCUT SCH ×2 (10:20→23:30)
[2018-02-16] MEDS: ENOXAPARIN SODIUM INJ 30 MG/0.3 ML DISP.SYRIN SUBCUT SCH (10:21)
--- NOTE | 2018-02-16 14:35 | PDOC PROGRESS REPORT ---
Subjective Progress Note for:: 02/16/18 Subjective:: This is a PMH of chronic systolic heart failure, hypertension and CKD 3 who initially presented with increasing shortness of breath and was in hypoxic hypercapnic failure requiring BiPAP from CHF exacerbation. She was started on IV diuretics. She did underwent a chest CTA. which showed bibasilar infiltrates and effusions. Patient did develop acute renal failure f rom contrast-induced ATN in the setting of diuresis. She did improve clinically and diuretics were discontinued. No acute event overnight. Patient says her shortness of breath continued to improve. She says this morning that she feels better but she is at her baseline yet. She said that she work with physical therapist this morning and had shortness of breath after walking on the hallway. She says that on her baseline she gets short of breath from walking from her bed to the kitchen area. Reason For Visit: SOB,CHF Physical Exam Vital Signs: Temp Pulse Resp BP Pulse Ox 97.4 F 80 14 171/71 H 95 02/16/18 11:18 02/16/18 13:35 02/16/18 13:35 02/16/18 11:18 02/16/18 13:35 Intake & Output 02/15/18 02/16/18 02/17/18 06:59 06:59 06:59 Intake Total 1325 705 100 Balance 1325 705 100 Weight 298 lb 4.567 oz 296 lb 15.402 oz General appearance: PRESENT: no acute distress, well-developed, well-nourished Head exam: PRESENT: atraumatic, normocephalic Eye exam: PRESENT: conjunctiva pink, EOMI, PERRLA. ABSENT: scleral icterus Ear exam: PRESENT: normal external ear exam Mouth exam: PRESENT: moist, tongue midline Neck exam: ABSENT: carotid bruit, JVD, lymphadenopathy, thyromegaly Respiratory exam: PRESENT: other - Slightly decreased breath sounds in the bases. ABSENT: rales, rhonchi, wheezes Cardiovascular exam: PRESENT: RRR. ABSENT: diastolic murmur, rubs, systolic murmur Pulses: PRESENT: normal dorsalis pedis pul GI/Abdominal exam: PRESENT: normal bowel sounds, soft. ABSENT: distended, guarding, mass, organolmegaly, rebound, tenderness Rectal exam: PRESENT: deferred Extremities exam: PRESENT: +2 edema Neurological exam: PRESENT: alert, awake, oriented to person, oriented to place, oriented to time, oriented to situation, CN II-XII grossly intact. ABSENT: motor sensory deficit Results Laboratory Results: 02/16/18 05:03 02/16/18 05:03 02/16/18 02/16/18 05:03 05:03 WBC 8.1 RBC 2.92 L Hgb 9.2 L Hct 26.8 L MCV 92 MCH 31.4 MCHC 34.2 RDW 15.5 H Plt Count 300 Seg Neutrophils % 54.8 Lymphocytes % 30.0 Monocytes % 12.1 Eosinophils % 2.1 Basophils % 1.0 Absolute Neutrophils 4.5 Absolute Lymphocytes 2.4 Absolute Monocytes 1.0 Absolute Eosinophils 0.2 Absolute Basophils 0.1 Sodium 142.2 Potassium 3.9 Chloride 107 Carbon Dioxide 34 H Anion Gap 1 L BUN 35 H Creatinine 1.29 H Est GFR ( Amer) 50 L Est GFR (Non-Af Amer) 42 L Glucose 94 Calcium 9.1 Magnesium 2.3 Total Bilirubin 0.4 AST 16 ALT 20 Alkaline Phosphatase 67 Total Protein 5.8 L Albumin 3.0 L 02/07/18 02/07/18 02/07/18 16:00 16:00 21:58 Creatine Kinase CK-MB (CK-2) 0.73 0.72 Troponin I < 0.012 Cancelled < 0.012 NT-Pro-B Natriuret Pep 02/08/18 02/08/18 02/10/18 03:57 03:57 08:29 Creatine Kinase 73 CK-MB (CK-2) 0.62 Troponin I < 0.012 NT-Pro-B Natriuret Pep 2060 H 02/10/18 02/10/18 02/10/18 08:29 14:30 14:30 Creatine Kinase 78 CK-MB (CK-2) 0.94 1.22 Troponin I < 0.012 < 0.012 NT-Pro-B Natriuret Pep 02/10/18 02/10/18 02/11/18 20:27 20:27 04:37 Creatine Kinase 73 CK-MB (CK-2) 1.08 Troponin I < 0.012 NT-Pro-B Natriuret Pep 1360 H 02/13/18 02/13/18 02/13/18 11:15 11:15 15:50 Creatine Kinase 34 41 CK-MB (CK-2) 0.39 Troponin I < 0.012 NT-Pro-B Natriuret Pep 02/13/18 02/13/18 02/13/18 15:50 22:00 22:00 Creatine Kinase 40 CK-MB (CK-2) 0.55 0.55 Troponin I < 0.012 < 0.012 NT-Pro-B Natriuret Pep Impressions: Chest/Abdomen CTA 02/07/18 12:36 IMPRESSION: No pulmonary emboli. Bilateral pleural effusions right greater than left with basilar compressive atelectasis. Marked cardiac enlargement with small pericardial effusion. Renal Ultrasound 02/09/18 00:00 IMPRESSION: 1. The examination is limited due to the patient's body habitus. 2. No evidence of hydronephrosis. Chest X-Ray 02/10/18 00:00 IMPRESSION: Bibasilar densities as noted above Assessment & Plan - Diagnosis (1) Acute respiratory failure with hypoxia and hypercapnia Is this a current diagnosis for this admission?: Yes Plan: Resolving. Secondary to CHF exacerbation. Patient was initially BiPAP dependent. She is currently saturating on 2 L of nasal cannula. (2) Acute exacerbation of congestive heart failure Qualifiers: Heart failure type: systolic Qualified Code(s): I50.23 - Acute on chronic systolic (congestive) heart failure Is this a current diagnosis for this admission?: Yes Plan: Resolved. Recovered EF. Patient has been off diuretics. Patient's previous was reported at 48%. Recent echo done shows normal EF and normal diastolic function. (3) Acute kidney injury superimposed on chronic kidney disease Is this a current diagnosis for this admission?: Yes Plan: Resolving. Secondary to contrast-induced ATN in the setting of diuresis. Creatinine continues to improve and is now down to 1.29. Patient's creatinine initially peaked at 2.6. (4) Diabetes mellitus type 2 in obese Is this a current diagnosis for this admission?: Yes Plan: Patient did have episodes of hypoglycemia the other day. Her Lantus was reduced accordingly. No recurrence of hypoglycemia. Continue Lantus 30 units twice a d ay. (5) UTI (urinary tract infection) Is this a current diagnosis for this admission?: Yes Plan: Urine culture grew ESBL. Patient was started initially on Zosyn and this was switched to imipenem per nephro recommendations. - Time Time Spent with patient: 25-34 minutes
[2018-02-16] MEDS: INSULIN REG, HUMAN 100 UNIT/ML 3 ML VIAL (PYX) SUBCUT PRN (17:13)
[2018-02-16] MEDS: ATORVASTATIN CALCIUM 80 MG TABLET PO SCH (21:39)
[2018-02-16] MEDS: FAMOTIDINE 20 MG TABLET PO SCH (21:39)
[2018-02-17] MEDS: INSULIN REG, HUMAN 100 UNIT/ML 3 ML VIAL (PYX) SUBCUT PRN (00:23)
[2018-02-17] MEDS: IMIPENEM/CILASTATIN SODIUM 500 MG in NORMAL SALINE 100 ML IV SCH ×2 (03:00→09:48)
[2018-02-17] MEDS: MORPHINE SULFATE 10 MG/ML INJ IV PRN (04:45)
[2018-02-17] MEDS: PROMETHAZINE HCL INJ 25 MG/1 ML VIAL IV PRN (08:13)
--- NOTE | 2018-02-17 08:23 | RADIOLOGY REPORT (SQ) ---
EXAM DESCRIPTION: CHEST SINGLE VIEW COMPLETED DATE/TIME: 02/17/2018 8:02 am REASON FOR STUDY: reassess pleur effusion COMPARISON: 02/10/2018 EXAM PARAMETERS: NUMBER OF VIEWS: One view. TECHNIQUE: Single frontal radiographic view of the chest acquired. RADIATION DOSE: NA LIMITATIONS: None. FINDINGS: LUNGS AND PLEURA: Mild increase less the basilar opacification with obscuration of the lef t hemidiaphragm, likely combination of airspace disease and small effusion. No pneumothorax. Unrema rkable right hemithorax. MEDIASTINUM AND HILAR STRUCTURES: No discrete masses. HEART AND VASCULAR STRUCTURES: Enlarged, stable. BONES: No acute findings. HARDWARE: None in the chest. OTHER: No other significant finding. IMPRESSION: Mildly increased left retrocardiac opacity, likely combination of small effusion and air space disease. TECHNICAL DOCUMENTATION: JOB ID: [id number] [employer]- All Rights Reserved Reading location - IP/workstation name: [facility]
[2018-02-17] MEDS: GABAPENTIN 300 MG CAPSULE PO SCH (09:51)
[2018-02-17] MEDS: ESCITALOPRAM OXALATE 10 MG TABLET PO SCH (09:51)
[2018-02-17] MEDS: CETIRIZINE 5 MG TABLET PO SCH (09:51)
[2018-02-17] MEDS: ASPIRIN 325 MG TABLET, ENT COATED PO SCH (09:51)
[2018-02-17] MEDS: EZETIMIBE 10 MG TABLET PO SCH (09:51)
[2018-02-17] MEDS: NITROGLYCERIN 2.5 MG (0.1 MG/HR) PATCH.TD24 TD SCH (09:53)
[2018-02-17] MEDS: HYDROCHLOROTHIAZIDE 25 MG TABLET PO SCH (09:53)
[2018-02-17] MEDS: ENOXAPARIN SODIUM INJ 30 MG/0.3 ML DISP.SYRIN SUBCUT SCH (09:54)
[2018-02-17] MEDS: INSULIN GLARGINE,HUM.REC.ANLOG 1,000 UNIT/10 ML UNIT SUBCUT SCH (09:55)
[2018-02-17] MEDS ORDERED: AMLODIPINE BESYLATE 10 MG TABLET PO SCH (10:00)
[2018-02-17] MEDS ORDERED: NORMAL SALINE INJ/PF 0.9% 10 ML SDV IV PRN (15:48)
--- NOTE | 2018-02-17 15:57 | RADIOLOGY REPORT (SQ) ---
EXAM DESCRIPTION: PICC INSERTION COMPLETED DATE/TIME: 02/17/2018 9:38 am REASON FOR STUDY: home IV antibiotics COMPARISON: None. FLUOROSCOPY TIME: 2 images saved to PACS. TECHNIQUE: Fluoroscopic and ultrasound guided PICC placement. LIMITATIONS: None. PROCEDURE: After written consent and assessment were obtained, the patient was brought into the fluo roscopy room and placed supine on the table. Ultrasound evaluation of potential access sites were per formed. After successfully identifying a patent left basilic vein, the left arm was prepped and drape d in a sterile fashion along with the ultrasound probe. The entry site was anesthetized with 1% lidoc thaddeus. A 21 gauge 7 cm needle was advanced through the skin and into the basilic vein under live ultra sound guidance. An ultrasound image was saved to PACS confirming access site. A .018 guide wire was then inserted through the needle and into the venous system. The needle was then removed and an 11 b lade scalpel was used to make a 1cm skin incision. A 5 fr peel-away sheath was advanced over the wir e and into the venous system. A measurement was then made using the existing wire and live fluoroscop ic guidance. The wire was then removed and trimmed. The PICC was advanced through the peel-away sheat h and into the venous system. The peel-away sheath was removed and the catheter was adhered to the pa tients arm with a stat lock. The catheter was then aspirated and flushed and a sterile bandage was pl aced over the access site. A fluoroscopic spot image was saved to PACS confirming the catheter tip w ithin the superior vena cava. IMPRESSION: SUCCESSFUL PLACEMENT OF A 5 FR DUAL LUMEN 41 CM PICC IN THE LEFT BASILIC VEIN. COMMENT: Patient medication list reviewed: Yes- Quality ID# 130:Eligible professional attests to doc umenting in the medical record they obtained, updated, or reviewed the patient's current medications. . Quality ID 145: Final reports for procedures using fluoroscopy that document radiation exposure brittany jarett, or exposure time and number of fluorographic images (if radiation exposure indices are not avail able) Quality ID #76: The patient was prepped and draped using maximum sterile barrier technique including cap, mask, sterile gown, sterile gloves, a large sterile sheet, hand hygiene, and 2% Chlorhexidine fo r cutaneous antisepsis. When ultrasound is used, sterile ultrasound techniques are followed requiring sterile gel and sterile probes. TECHNICAL DOCUMENTATION: JOB ID: [id number] [employer]- All Rights Reserved rev-07/17 Reading location - IP/workstation name: [email or web address]
--- NOTE | 2018-02-17 16:06 | RADIOLOGY REPORT (SQ) ---
EXAM DESCRIPTION: FLUORO/CV PLACEMENT; U/S GUIDE FOR VASCULAR ACCESS COMPLETE DATE/TIME: 02/17/2018 3:10 pm REASON FOR STUDY: IV ABX; IV ACCESS FINDINGS: Please see combined report for performance of procedure and radiologic supervision and int erpretation. IMPRESSION: Please see combined report for performance of procedure and radiologic supervision and i nterpretation. Reading location - IP/workstation name: [email or web address]
--- NOTE | 2018-02-17 16:06 | RADIOLOGY REPORT (SQ) ---
EXAM DESCRIPTION: FLUORO/CV PLACEMENT; U/S GUIDE FOR VASCULAR ACCESS COMPLETE DATE/TIME: 02/17/2018 3:10 pm REASON FOR STUDY: IV ABX; IV ACCESS FINDINGS: Please see combined report for performance of procedure and radiologic supervision and int erpretation. IMPRESSION: Please see combined report for performance of procedure and radiologic supervision and i nterpretation. Reading location - IP/workstation name: [email or web address]
[2018-02-17 16:17] VITALS: BP 154/66
[2018-02-17] MEDS ORDERED: ERTAPENEM SODIUM 1 GM in NORMAL SALINE 50 ML IV SCH (18:00)
--- NOTE | 2018-02-17 21:51 | PDOC DISCHARGE SUMMARY ---
General - Admit/Disc Date/PCP Admission Date/Primary Care Provider: 02/07/18 15:55 SHLOMO WOODY, Discharge Date: 02/17/18 - Discharge Diagnosis (1) Acute respiratory failure with hypoxia and hypercapnia Is this a current diagnosis for this admission?: Yes (2) Acute exacerbation of congestive heart failure Is this a current diagnosis for this admission?: Yes (3) Acute kidney injury superimposed on chronic kidney disease Is this a current diagnosis for this admission?: Yes (4) Diabetes mellitus type 2 in obese Is this a current diagnosis for this admission?: Yes (5) UTI (urinary tract infection) Is this a current diagnosis for this admission?: Yes - Additional Information Resuscitation Status: Full Code Discharge Diet: Cardiac, Diabetic Discharge Activity: Activity As Tolerated, Balance Activity w/Rest, Weigh Daily Prescriptions: Amlodipine Besylate [Norvasc 10 mg Tablet] 10 mg PO DAILY #30 tablet Aspirin [Adult Aspirin Regimen] 81 mg PO DAILY #30 tablet. Atorvastatin Calcium [Lipitor 40 mg Tablet] 40 mg PO QHS #30 tablet Ertapenem Sodium [Ertapenem] 1 gm IV DAILY 7 Days #7 vial Furosemide [Lasix 20 mg Tablet] 20 mg PO QAM #30 tablet Gabapentin [Neurontin 300 mg Capsule] 300 mg PO Q12 PRN #30 capsule PRN Reason: Insulin Glargine,Hum.rec.anlog [Lantus Insulin 100 Unit/1 ml 10 ml] 30 unit SUBCUT Q12 #1 unit Lisinopril [Prinivil 10 mg Tablet] 10 mg PO DAILY #30 tablet Home Medications: Cetirizine HCl [Zyrtec 10 mg Tablet] 10 mg PO DAILY 02/08/18 Ezetimibe [Zetia 10 mg Tablet] 10 mg PO DAILY 02/08/18 Pantoprazole Sodium [Protonix] 40 mg PO DAILY 02/08/18 Tramadol HCl [Ultram 50 mg Tablet] 50 mg PO Q12HP PRN 02/08/18 Acetaminophen [Tylenol 325 mg Tablet] 650 mg PO Q6HP PRN tablet 02/17/18 Amlodipine Besylate [Norvasc 10 mg Tablet] 10 mg PO DAILY #30 tablet 02/17/18 Aspirin [Adult Aspirin Regimen] 81 mg PO DAILY #30 tablet. 02/17/18 Atorvastatin Calcium [Lipitor 40 mg Tablet] 40 mg PO QHS #30 tablet 02/17/18 Ertapenem Sodium [Ertapenem] 1 gm IV DAILY 7 Days #7 vial 02/17/18 Furosemide [Lasix 20 mg Tablet] 20 mg PO QAM #30 tablet 02/17/18 Gabapentin [Neurontin 300 mg Capsule] 300 mg PO Q12 PRN #30 capsule 02/17/18 Insulin Glargine,Hum.rec.anlog [Lantus Insulin 100 Unit/1 ml 10 ml] 30 unit SUBCUT Q12 #1 unit 02/17/18 Lisinopril [Prinivil 10 mg Tablet] 10 mg PO DAILY #30 tablet 02/17/18 History of Present Illness History of Present Illness: H&P from initial provider: Patient is a 62-year-old female with a history of hypertension, stage III chronic kidney disease, insulin-dependent diabetic, obstructive sleep apnea and uses CPAP at night, coronary artery disease without stent placement, and previous asthma who presents to the ED complaining of shortness of breath, substernal chest pain, dry nonproductive cough, wheezing over the last week. Patient states that the pain does not radiate and is worsened when she pushes on it. Patient states that she has had a few episodes of diarrhea as well. She is still able to eat and drink without any difficulties otherwise. She is urinating normally. Patient states that she is currently being treated for UTI and was started back on medicine 3 days ago. She had recent hospitalization for ESBL E. coli. Patient states that she has not had any previous history of DC. Denies drug allergies. Denies any prolonged immobilization, distance travel, recent surgery/trauma, personal cancer history, hormone use, smoking, or previous DVT/PE. Denies any headache, fever, neck pain, changes in vision/speech/mentation/hearing, sore throat, palpitations, syncope, abdominal pain, nausea/vomiting/diarrhea, urinary retention, dysuria, hematuria, or rash. Hospital Course Hospital Course: This is a PMH of chronic systolic heart failure, hypertension and CKD 3 who initially presented with increasing shortness of breath and was in hypoxic hypercapnic failure requiring BiPAP from CHF exacerbation. She was started on IV diuretics. She did underwent a chest CTA. which showed bibasilar infiltrates and effusions. Patient did develop acute renal failure from contrast-induced ATN in the setting of diuresis. Nephrology also evaluated patient. She did improve clinically and diuretics were discontinued. She did clinically improve. She also was found to have ESBL UTI. She did have LUTS symptoms and was discharged on a PICC line to complete 14 days of Meropenem. (1) Acute respiratory failure with hypoxia and hypercapnia Resolving. Secondary to CHF exacerbation. Patient was initially BiPAP dependent. She is currently saturating on 2 L of nasal cannula. (2) Acute exacerbation of congestive heart failure Resolved. Recovered EF. Patient has been off diuretics. Patient's previous was reported at 48%. Recent echo done shows normal EF and normal diastolic function. (3) Acute kidney injury superimposed on chronic kidney disease Resolving. Secondary to contrast-induced ATN in the setting of diuresis. Creatinine continues to improve and is now down to 1.29. Patient's creatinine initially peaked at 2.6. (4) Diabetes mellitus type 2 in obese Patient did have episodes of hypoglycemia the other day. Her Lantus was reduced accordingly. No recurrence of hypoglycemia. Continue Lantus 30 units twice a day. (5) UTI (urinary tract infection) Urine culture grew ESBL. Will be discharged on Ertapenem. Physical Exam Vital Signs: Temp Pulse Resp BP Pulse Ox 98.3 F 72 17 154/66 H 96 02/17/18 17:46 02/17/18 17:46 02/17/18 17:46 02/17/18 17:46 02/17/18 17:46 Intake & Output 02/16/18 02/17/18 02/18/18 06:59 06:59 06:59 Intake Total 705 1420 200 Output Total 1 Balance 705 1419 200 Weight 296 lb 15.402 oz 296 lb 8.348 oz General appearance: PRESENT: no acute distress, well-developed, well-nourished Head exam: PRESENT: atraumatic, normocephalic Eye exam: PRESENT: conjunctiva pink, EOMI, PERRLA. ABSENT: scleral icterus Ear exam: PRESENT: normal external ear exam Neck exam: ABSENT: carotid bruit, JVD, lymphadenopathy, thyromegaly Respiratory exam: PRESENT: clear to auscultation vadim. ABSENT: rales, rhonchi, wheezes Cardiovascular exam: PRESENT: RRR. ABSENT: diastolic murmur, rubs, systolic murmur Pulses: PRESENT: normal dorsalis pedis pul GI/Abdominal exam: PRESENT: normal bowel sounds, soft. ABSENT: distended, gua rding, mass, organolmegaly, rebound, tenderness Rectal exam: PRESENT: deferred Neurological exam: PRESENT: alert, awake, oriented to person, oriented to place, oriented to time, oriented to situation, CN II-XII grossly intact. ABSENT: motor sensory deficit Results Laboratory Results: 02/16/18 05:03 02/16/18 05:03 02/07/18 02/07/18 02/07/18 11:14 16:00 16:00 Creatine Kinase CK-MB (CK-2) 0.73 Troponin I < 0.012 < 0.012 Cancelled NT-Pro-B Natriuret Pep 1200 H 02/07/18 02/08/18 02/08/18 21:58 03:57 03:57 Creatine Kinase CK-MB (CK-2) 0.72 0.62 Troponin I < 0.012 < 0.012 NT-Pro-B Natriuret Pep 2060 H 02/10/18 02/10/18 02/10/18 08:29 08:29 14:30 Creatine Kinase 73 78 CK-MB (CK-2) 0.94 Troponin I < 0.012 NT-Pro-B Natriuret Pep 02/10/18 02/10/18 02/10/18 14:30 20:27 20:27 Creatine Kinase 73 CK-MB (CK-2) 1.22 1.08 Troponin I < 0.012 < 0.012 NT-Pro-B Natriuret Pep 02/11/18 02/13/18 02/13/18 04:37 11:15 11:15 Creatine Kinase 34 CK-MB (CK-2) 0.39 Troponin I < 0.012 NT-Pro-B Natriuret Pep 1360 H 02/13/18 02/13/18 02/13/18 15:50 15:50 22:00 Creatine Kinase 41 40 CK-MB (CK-2) 0.55 Troponin I < 0.012 NT-Pro-B Natriuret Pep 02/13/18 22:00 Creatine Kinase CK-MB (CK-2) 0.55 Troponin I < 0.012 NT-Pro-B Natriuret Pep Impressions: Chest/Abdomen CTA 02/07/18 12:36 IMPRESSION: No pulmonary emboli. Bilateral pleural effusions right greater than left with basilar compressive atelectasis. Marked cardiac enlargement with small pericardial effusion. Renal Ultrasound 02/09/18 00:00 IMPRESSION: 1. The examination is limited due to the patient's body habitus. 2. No evidence of hydronephrosis. Guidance Fluoroscopy 02/17/18 00:00 IMPRESSION: Please see combined report for performance of procedure and radiologic supervision and interpretation. Interventional Vascular Procedure 02/17/18 00:00 IMPRESSION: Please see combined report for performance of procedure and radiologic supervision and interpretation. PICC Line Insertion 02/17/18 00:00 IMPRESSION: SUCCESSFUL PLACEMENT OF A 5 FR DUAL LUMEN 41 CM PICC IN THE LEFT BASILIC VEIN. Chest X-Ray 02/17/18 07:00 IMPRESSION: Mildly increased left retrocardiac opacity, likely combination of small effusion and airspace disease. Qualifiers - * PATIENT BEING DISCHARGED WITH ANY OF THE FOLLOWING DIAGNOSIS: No
[2018-02-17] MEDS ORDERED: NORMAL SALINE INJ/PF 0.9% 10 ML SDV IV SCH (22:00)
== END 2018-02-17 18:42 | disposition home health service (06) | DRG 291 ==
LOC: ER 11:10 → EH 15:55 → 3W 20:12
PROVIDERS: ADMIT Internal Medicine; ATTEND Internal Medicine
PROC: 30233N1 Transfusion of Nonautologous Red Blood Cells into Peripheral Vein, Percutaneous Approach (ICD-10-PCS; 2018-02-10)
PROC: 02HV33Z Insertion of Infusion Device into Superior Vena Cava, Percutaneous Approach (ICD-10-PCS; principal; 2018-02-17)
PROC: B518ZZA Fluoroscopy of Superior Vena Cava, Guidance (ICD-10-PCS; 2018-02-17)
PROC: B548ZZA Ultrasonography of Superior Vena Cava, Guidance (ICD-10-PCS; 2018-02-17)
DX: I13.0 Hypertensive heart and chronic kidney disease with heart failure and stage 1 through stage 4 chronic kidney disease, or unspecified chronic kidney disease (principal); I50.23 Acute on chronic systolic (congestive) heart failure; J96.22 Acute and chronic respiratory failure with hypercapnia; J96.21 Acute and chronic respiratory failure with hypoxia; N17.0 Acute kidney failure with tubular necrosis; N39.0 Urinary tract infection, site not specified; Z68.43 Body mass index [BMI] 50.0-59.9, adult; N18.3 Chronic kidney disease, stage 3 (moderate); E11.22 Type 2 diabetes mellitus with diabetic chronic kidney disease; D63.1 Anemia in chronic kidney disease; R00.1 Bradycardia, unspecified; I25.10 Atherosclerotic heart disease of native coronary artery without angina pectoris; G47.33 Obstructive sleep apnea (adult) (pediatric); E66.01 Morbid (severe) obesity due to excess calories; B96.20 Unspecified Escherichia coli [E. coli] as the cause of diseases classified elsewhere; Z16.12 Extended spectrum beta lactamase (ESBL) resistance; Z79.82 Long term (current) use of aspirin; Z79.4 Long term (current) use of insulin; Z79.891 Long term (current) use of opiate analgesic; Z79.899 Other long term (current) drug therapy
CPT/HCPCS: 36415; 36430; 36569; 36600; 71045; 71046; 71275; 76775; 76937; 77001; 80048; 80053; 80061; 81001; 82272; 82550; 82553; 82570; 82607; 82728; 82746; 82803; 82962; 83036; 83540; 83550; 83605; 83735; 83880; 84100; 84156; 84165; 84443; 84484; 85025; 85045; 86850; 86900; 86901; 86920; 87086; 87088; 87186; 93005; 93010; 93306; 94660; 94799; 96365; 96375; 96376; 99285; J0696; J0743; J1335; J1439; J1642; J1650; J1815; J1940; J2270; J2405; J2543; J2550; J3475; J3490; J7620; P9016; Q4081

== ENCOUNTER 2018-05-06 14:56 | Emergency (ER) | payer MEDICAID ==
[2018-05-06] MEDS ORDERED: ONDANSETRON 4 MG TAB.RAPDIS PO ONE (16:39)
--- NOTE | 2018-05-06 16:39 | ER Document Report ---
ED Medical Screen (RME) - General Chief Complaint: Nausea/Vomiting/Diarrhea Stated Complaint: VOMITTING Time Seen by Provider: 05/06/18 16:32 Primary Care Provider: SHLOMO MCKAY DO [Primary Care Provider] - Follow up as needed TRAVEL OUTSIDE OF THE [place] IN LAST 30 DAYS: No - Related Data Allergies/Adverse Reactions: No Known Allergies Allergy (Verified 05/06/18 15:07) Past Medical History - Social History Chew tobacco use (# tins/day): No Frequency of alcohol use: None Drug Abuse: None - Past Medical History Cardiac Medical History: Reports: Hx Coronary Artery Disease - high chol, Hx Hypercholesterolemia, Hx Hypertension Denies: Hx Heart Attack Pulmonary Medical History: Reports: Hx Sleep Apnea - Not using CPAP at home Denies: Hx Asthma, Hx Bronchitis, Hx COPD, Hx Pneumonia Neurological Medical History: Denies: Hx Cerebrovascular Accident, Hx Seizures Endocrine Medical History: Reports: Hx Diabetes Mellitus Type 2 Renal/ Medical History: Denies: Hx Peritoneal Dialysis Musculoskeltal Medical History: Reports Hx Arthritis Psychiatric Medical History: Reports: Hx Depression Past Surgical History: Reports: Hx Cholecystectomy - Gallbladder Sx, Hx Tonsillectomy, Hx Tubal Ligation, Other - Carpal tunnel - Immunizations Hx Diphtheria, Pertussis, Tetanus Vaccination: Yes History of Influenza Vaccine for 11/2016 - 04/2017 Season: Yes Influenza Administration Date for 11/2016 - 04/2017 Season: 12/01/16 Physical Exam - Vital signs Vitals: Temp Pulse Resp BP Pulse Ox 98.6 F 88 17 154/73 H 96 05/06/18 15:18 05/06/18 15:18 05/06/18 15:18 05/06/18 15:18 05/06/18 15:18 Course - Vital Signs Vital signs: Temp Pulse Resp BP Pulse Ox 98.6 F 88 17 154/73 H 96 05/06/18 15:18 05/06/18 15:18 05/06/18 15:18 05/06/18 15:18 05/06/18 15:18 Doctor's Discharge - Discharge Referrals: SHLOMO MCKAY DO [Primary Care Provider] - Follow up as needed
[2018-05-06 17:14] LABS: ABSOLUTE BASOPHILS # (AUTO) 0.1 10^3/uL (0.0-0.2); ABSOLUTE EOSINOPHILS # (AUTO) 0.1 10^3/uL (0.0-0.6); ABSOLUTE LYMPHOCYTES (AUTO) 2.8 10^3/uL (0.5-4.7); ABSOLUTE MONOCYTES (AUTO) 0.9 10^3/uL (0.1-1.4); ABSOLUTE NEUT (AUTO) 6.3 10^3/uL (1.7-8.2); BASOPHILS % (AUTO) 0.9 % (0-2); EOSINOPHILS % (AUTO) 0.9 % (0-6); HEMATOCRIT 32.2 % (36.0-47.0); HEMOGLOBIN 11.2 g/dL (12.0-15.5); LYMPHOCYTES % (AUTO) 27.1 % (13-45); MEAN CORPUSCULAR HGB CONC 34.6 g/dL (32.0-36.0); MEAN CORPUSCULAR VOLUME 89 fl (80-97); MONOCYTES % (AUTO) 8.8 % (3-13); PLATELET COUNT 325 10^3/uL (150-450); RED CELL DISTRIBUTION WIDTH 16.5 % (11.5-14.0); SEGMENTED NEUTROPHILS % (AUTO) 62.3 % (42-78); TOTAL CELLS COUNTED % (AUTO) 100 %; WHITE BLOOD COUNT 10.2 10^3/uL (4.0-10.5)
[2018-05-06 17:16] LABS: APPEARANCE,URINE SLIGHTLY-CLOUDY; BILIRUBIN,URINE NEGATIVE (NEGATIVE); COLOR,URINE YELLOW; GLUCOSE, URINE >=500 mg/dL (NEGATIVE); KETONES,URINE NEGATIVE (NEGATIVE); LEUKOCYTE ESTERASE,URINE TRACE (NEGATIVE); NITRITE,URINE NEGATIVE (NEGATIVE); PROTEIN,URINE >=500 mg/dL (NEGATIVE); URINE SPECIFIC GRAVITY 1.012; UROBILINOGEN,URINE NEGATIVE mg/dL (<2.0)
[2018-05-06 17:34] LABS: ALANINE AMINOTRANSFERASE 7 U/L (9-52); ALBUMIN 3.6 g/dL (3.5-5.0); ALKALINE PHOSPHATASE 124 U/L (38-126); ANION GAP 7 (5-19); ASPARTATE AMINO TRANSFERASE 21 U/L (14-36); BILIRUBIN,DIRECT 0.2 mg/dL (0.0-0.4); BILIRUBIN,TOTAL 0.9 mg/dL (0.2-1.3); BLOOD UREA NITROGEN 16 mg/dL (7-20); CALCIUM 9.3 mg/dL (8.4-10.2); CARBON DIOXIDE 34 mmol/L (22-30); CHLORIDE 101 mmol/L (98-107); GLUCOSE 160 mg/dL (75-110); POTASSIUM 3.2 mmol/L (3.6-5.0); SODIUM 141.8 mmol/L (137-145); TOTAL PROTEIN 6.5 g/dL (6.3-8.2)
--- NOTE | 2018-05-06 18:11 | ER Document Report ---
ED Medical Screen (RME) - General Chief Complaint: Nausea/Vomiting/Diarrhea Stated Complaint: VOMITTING Time Seen by Provider: 05/06/18 16:32 Primary Care Provider: SHLOMO MCKAY DO [NO LOCAL MD] - Follow up as needed Mode of Arrival: Ambulatory Information source: Patient TRAVEL OUTSIDE OF THE [place] IN LAST 30 DAYS: No - HPI Notes: 05/06/18 18:08 62-year-old female with a history of asthma who usually not currently an supple mental oxygen reports generalized abdominal pain presents the ED for complaints of nausea vomiting diarrhea for the last 4 days, patient states she is vomited 4 times yesterday and 4 times today, reports loose stool, denies any fevers or chills. Reports she currently feels nauseous. denies any new foods, travel or medications. Denies sick contacts. Reports she is drinking however she is not able to eat. No rashes, vaccinations are up-to-date. Has not tried any [id number] medications to help with vomiting. Denies fevers, chills, chest pain,palpitations, shortness of breath, dyspnea,hematuria,blurred vision, speech changes, LH, dizziness, syncope, headaches, wheezing, ST, URI, neck pain, weakness, bowel or bladder dysfunction, saddle anesthesia, numbness or tingling in bilateral upper or lower extremities equally, muscle paralysis, weakness in bilateral upper or lower extremities equally or rash. I have greeted and performed a rapid initial assessment of this patient. A comprehensive ED assessment and evaluation of the patient, analysis of test results and completion of medical decision making process will be conducted by an additional ED providers. 05/06/18 18:10 - Related Data Allergies/Adverse Reactions: No Known Allergies Allergy (Verified 05/06/18 15:07) Past Medical History - General Information source: Patient - Social History Chew tobacco use (# tins/day): No Frequency of alcohol use: None Drug Abuse: None - Past Medical History Cardiac Medical History: Reports: Hx Coronary Artery Disease - high chol, Hx Hypercholesterolemia, Hx Hypertension Denies: Hx Heart Attack Pulmonary Medical History: Reports: Hx Sleep Apnea - Not using CPAP at home Denies: Hx Asthma, Hx Bronchitis, Hx COPD, Hx Pneumonia Neurological Medical History: Denies: Hx Cerebrovascular Accident, Hx Seizures Endocrine Medical History: Reports: Hx Diabetes Mellitus Type 2 Renal/ Medical History: Denies: Hx Peritoneal Dialysis Musculoskeltal Medical History: Reports Hx Arthritis Psychiatric Medical History: Reports: Hx Depression Past Surgical History: Reports: Hx Cholecystectomy - Gallbladder Sx, Hx Tonsillectomy, Hx Tubal Ligation, Other - Carpal tunnel - Immunizations Hx Diphtheria, Pertussis, Tetanus Vaccination: Yes History of Influenza Vaccine for 11/2016 - 04/2017 Season: Yes Influenza Administration Date for 11/2016 - 04/2017 Season: 12/01/16 Physical Exam - Vital signs Vitals: Temp Pulse Resp BP Pulse Ox 98.6 F 88 17 154/73 H 96 05/06/18 15:18 05/06/18 15:18 05/06/18 15:18 05/06/18 15:18 05/06/18 15:18 - Respiratory Respiratory status: No respiratory distress Chest status: Nontender Breath sounds: Normal Chest palpation: Normal - Cardiovascular Rhythm: Regular Murmur: No Course - Vital Signs Vital signs: Temp Pulse Resp BP Pulse Ox 98.6 F 88 17 154/73 H 96 05/06/18 15:18 05/06/18 15:18 05/06/18 15:18 05/06/18 15:18 05/06/18 15:18 - Laboratory Result Diagrams: 05/06/18 16:47 05/06/18 16:47 Laboratory results interpreted by me: 05/06/18 05/06/18 05/06/18 16:47 16:47 16:47 RBC 3.60 L Hgb 11.2 L Hct 32.2 L RDW 16.5 H Potassium 3.2 L Carbon Dioxide 34 H Creatinine 1.41 H Est GFR ( Amer) 45 L Est GFR (Non-Af Amer) 38 L Glucose 160 H ALT 7 L Urine Protein >=500 H Urine Glucose (UA) >=500 H Urine Blood SMALL H Ur Leukocyte Esterase TRACE H Doctor's Discharge - Discharge Referrals: SHLOMO MCKAY DO [NO LOCAL MD] - Follow up as needed
[2018-05-06] MEDS ORDERED: ONDANSETRON ODT 4 MG TAB (6 TAB/ER DISP) PO PRN (19:00)
--- NOTE | 2018-05-06 19:01 | ER Document Report ---
ED General - General Chief Complaint: Nausea/Vomiting/Diarrhea Stated Complaint: VOMITTING Time Seen by Provider: 05/06/18 16:32 Primary Care Provider: SHLOMO MCKAY DO [NO LOCAL MD] - Follow up as needed Mode of Arrival: Ambulatory Notes: 62-year-old female with a history of asthma, prior abdominal surgical history of a cholecystectomy presents to the emergency department for complaints of nausea, vomiting, and diarrhea for the last 4 days. Patient states she is vomited 4 times yesterday and 4 times today, reports loose stool, denies any fevers or chills. Reports she currently feels nauseous. denies any new foods, travel or medications. Denies sick contacts. Reports she is drinking however she is not able to eat. Has not tried any pyfz-[id number]-[id number] medications to help with vomi ting. Nothing seems to worsen her symptoms. Denies history of similar symptoms in the recent past. Notes that she has had some generalized abdominal cramping near episodes of nausea or vomiting but denies any current abdominal pain. States that the cramping is present is a very mild, cramping, generalized sensation. She has not seen her primary care physician regarding today's concerns. TRAVEL OUTSIDE OF THE [place] IN LAST 30 DAYS: No - Related Data Allergies/Adverse Reactions: No Known Allergies Allergy (Verified 05/06/18 15:07) Past Medical History - General Information source: Patient - Social History Smoking Status: Never Smoker Chew tobacco use (# tins/day): No Frequency of alcohol use: None Drug Abuse: None Lives with: Alone Family History: Reviewed & Not Pertinent Patient has suicidal ideation: No Patient has homicidal ideation: No - Past Medical History Cardiac Medical History: Reports: Hx Coronary Artery Disease - high chol, Hx Hypercholesterolemia, Hx Hypertension Denies: Hx Heart Attack Pulmonary Medical History: Reports: Hx Sleep Apnea - Not using CPAP at home Denies: Hx Asthma, Hx Bronchitis, Hx COPD, Hx Pneumonia Neurological Medical History: Denies: Hx Cerebrovascular Accident, Hx Seizures Endocrine Medical History: Reports: Hx Diabetes Mellitus Type 2 Renal/ Medical History: Denies: Hx Peritoneal Dialysis Musculoskeletal Medical History: Reports Hx Arthritis Psychiatric Medical History: Reports: Hx Depression Past Surgical History: Reports: Hx Cholecystectomy - Gallbladder Sx, Hx Tonsil lectomy, Hx Tubal Ligation, Other - Carpal tunnel - Immunizations Hx Diphtheria, Pertussis, Tetanus Vaccination: Yes Review of Systems - Review of Systems Notes: Constitutional: Negative for fever. HENT: Negative for sore throat. Eyes: Negative for visual changes. Cardiovascular: Negative for chest pain. Respiratory: Negative for shortness of breath. Gastrointestinal: Positive for vomiting and diarrhea Genitourinary: Negative for dysuria. Musculoskeletal: Negative for back pain. Skin: Negative for rash. Neurological: Negative for headaches, weakness or numbness. 10 point ROS negative except as marked above and in HPI. Physical Exam - Vital signs Vitals: Temp Pulse Resp BP Pulse Ox 98.6 F 88 17 154/73 H 96 05/06/18 15:18 05/06/18 15:18 05/06/18 15:18 05/06/18 15:18 05/06/18 15:18 Interpretation: Hypertensive Notes: PHYSICAL EXAMINATION: GENERAL: Well-appearing, well-nourished and in no acute distress. HEAD: Atraumatic, normocephalic. EYES: Pupils equal round and reactive to light, extraocular movements intact, sclera anicteric, conjunctiva are normal. ENT: nares patent, oropharynx clear without exudates. Mildly dry mucous me mbranes. NECK: Normal range of motion, supple without lymphadenopathy LUNGS: Breath sounds clear to auscultation bilaterally and equal. No wheezes rales or rhonchi. HEART: Regular rate and rhythm without murmurs ABDOMEN: Soft, morbidly obese abdomen, nontender, normoactive bowel sounds. No guarding, no rebound. No masses appreciated. EXTREMITIES: Normal range of motion, no pitting or edema. No cyanosis. NEUROLOGICAL: No focal neurological deficits. Moves all extremities spontaneously and on command. PSYCH: Normal mood, normal affect. SKIN: Warm, Dry, normal turgor, no rashes or lesions noted. Course - Re-evaluation Re-evalutation: 05/06/18 18:59 Presentation of an overall well-appearing patient in no acute distress with complaints of nausea, vomiting, diarrhea. Patient has no abdominal tenderness on exam and specifically no tenderness in the RLQ, LLQ, RUQ. Overall well hydrated on exam. Able to tolerate oral intake here in the emergency department. Low clinical suspicion for any acute life-threatening etiology based on exam and history including SBO, appendicitis, nephrolithiasis, or pylonephritis. No abdominal pain on palpation of the abdomen. Labs globally unremarkable, mild CKD present similar to previous labs. At this time will discharge with return precautions and follow-up recommendations. Verbal discharge instructions given a the bedside and opportunity for questions given. Medication warnings reviewed. Patient is in agreement with this plan and has verbalized understanding of return precautions and the need for primary care follow-up in the next 24-72 hours. - Vital Signs Vital signs: Temp Pulse Resp BP Pulse Ox 98.6 F 88 17 154/73 H 96 05/06/18 15:18 05/06/18 15:18 05/06/18 15:18 05/06/18 15:18 05/06/18 15:18 - Laboratory Result Diagrams: 05/06/18 16:47 05/06/18 16:47 Laboratory results interpreted by me: 05/06/18 05/06/18 05/06/18 16:47 16:47 16:47 RBC 3.60 L Hgb 11.2 L Hct 32.2 L RDW 16.5 H Potassium 3.2 L Carbon Dioxide 34 H Creatinine 1.41 H Est GFR ( Amer) 45 L Est GFR (Non-Af Amer) 38 L Glucose 160 H ALT 7 L Urine Protein >=500 H Urine Glucose (UA) >=500 H Urine Blood SMALL H Ur Leukocyte Esterase TRACE H Discharge - Discharge Clinical Impression: Nausea vomiting and diarrhea, CKD (chronic kidney disease), stage III Condition: Good Disposition: HOME, SELF-CARE Additional Instructions: Your symptoms are likely due to a viral illness and should resolve in the next several days. Continue to stay hydrated with plenty of solution such as Gatorade or Pedialyte. You are being prescribed Zofran to take as needed for nausea and vomiting. Please return if you develop severe abdominal pain, pass out, become unable to tolerate any oral fluids for 12 more hours, or any other symptoms that are concerning to you. Referrals: SHLOMO MCKAY, [NO LOCAL MD] - Follow up as needed
[2018-05-06 19:36] VITALS: BP 141/63
== END 2018-05-06 19:36 | disposition home or self-care (01) ==
LOC: ER 14:56
DX: R11.2 Nausea with vomiting, unspecified (principal); R19.7 Diarrhea, unspecified; E11.22 Type 2 diabetes mellitus with diabetic chronic kidney disease; I12.9 Hypertensive chronic kidney disease with stage 1 through stage 4 chronic kidney disease, or unspecified chronic kidney disease; N18.3 Chronic kidney disease, stage 3 (moderate); E78.00 Pure hypercholesterolemia, unspecified; Z90.49 Acquired absence of other specified parts of digestive tract; Z98.51 Tubal ligation status
CPT/HCPCS: 99284; 36415; 85025; 80053; 81001; S0119

== ENCOUNTER 2018-07-22 20:39 | Inpatient (IN) | payer MEDICARE, MEDICAID ==
[2018-07-22] MEDS ORDERED: ONDANSETRON 4 MG TAB.RAPDIS PO ONE (22:35)
--- NOTE | 2018-07-22 22:38 | ER Document Report ---
ED Medical Screen (RME) - General Chief Complaint: Nausea/Vomiting/Diarrhea Stated Complaint: VOMITING,HEADACHE Time Seen by Provider: 07/22/18 22:35 Primary Care Provider: ANNIE ROSA MD [Primary Care Provider] - Follow up as needed Notes: 63-year-old female with chief complaint of 4 days of feeling ill with cough, she states she has vomited multiple times today, she has generalized mid upper abdominal pain. Reports normal bowel movements. Reports night sweats but denies fevers. She reports current nausea. Denies specific chest pain. Past medical history includes CHF, NILO, oxygen dependency on 2 L nasal cannula at all times, diabetes, hypertension. Denies smoking or COPD. Has had cholecystectomy. TRAVEL OUTSIDE OF THE [place] IN LAST 30 DAYS: No - Related Data Allergies/Adverse Reactions: No Known Allergies Allergy (Verified 07/22/18 20:46) Past Medical History - Past Medical History Cardiac Medical History: Reports: Hx Coronary Artery Disease - high chol, Hx Hypercholesterolemia, Hx Hypertension Denies: Hx Heart Attack Pulmonary Medical History: Reports: Hx Sleep Apnea - Not using CPAP at home Denies: Hx Asthma, Hx Bronchitis, Hx COPD, Hx Pneumonia Neurological Medical History: Denies: Hx Cerebrovascular Accident, Hx Seizures Endocrine Medical History: Reports: Hx Diabetes Mellitus Type 2 Renal/ Medical History: Denies: Hx Peritoneal Dialysis Musculoskeltal Medical History: Reports Hx Arthritis Psychiatric Medical History: Reports: Hx Depression Past Surgical History: Reports: Hx Cholecystectomy - Gallbladder Sx, Hx Tonsillectomy, Hx Tubal Ligation, Other - Carpal tunnel - Immunizations Hx Diphtheria, Pertussis, Tetanus Vaccination: Yes History of Influenza Vaccine for 11/2016 - 04/2017 Season: Yes Influenza Administration Date for 11/2016 - 04/2017 Season: 12/01/16 Physical Exam - Vital signs Vitals: Temp Pulse Resp BP Pulse Ox 98.7 F 95 20 133/73 H 93 07/22/18 21:28 07/22/18 21:28 07/22/18 21:28 07/22/18 21:28 07/22/18 21:28 - Respiratory Breath sounds: Other - A few scattered coarse breath sounds, no overt wheezing, rhonchi, rales. No respiratory distress. - Abdominal Tenderness: Tender - Generalized mid to upper abdominal tenderness, exam limited by patient body habitus and sitting position Course - Re-evaluation Re-evalutation: I have greeted and performed a rapid initial assessment of this patient. A comprehensive ED assessment and evaluation of the patient, analysis of test results and completion of the medical decision making process will be conducted by additional ED providers. - Vital Signs Vital signs: Temp Pulse Resp BP Pulse Ox 98.7 F 95 20 133/73 H 93 07/22/18 21:28 07/22/18 21:28 07/22/18 21:28 07/22/18 21:28 07/22/18 21:28 Doctor's Discharge - Discharge Referrals: ANNIE ROSA MD [Primary Care Provider] - Follow up as needed
[2018-07-22 23:10] LABS: ABSOLUTE BASOPHILS # (AUTO) 0.1 10^3/uL (0.0-0.2); ABSOLUTE EOSINOPHILS # (AUTO) 0.1 10^3/uL (0.0-0.6); ABSOLUTE LYMPHOCYTES (AUTO) 1.9 10^3/uL (0.5-4.7); ABSOLUTE MONOCYTES (AUTO) 1.1 10^3/uL (0.1-1.4); ABSOLUTE NEUT (AUTO) 5.4 10^3/uL (1.7-8.2); BASOPHILS % (AUTO) 1.2 % (0-2); EOSINOPHILS % (AUTO) 0.9 % (0-6); HEMATOCRIT 31.2 % (36.0-47.0); HEMOGLOBIN 10.9 g/dL (12.0-15.5); LYMPHOCYTES % (AUTO) 22.7 % (13-45); MEAN CORPUSCULAR HEMOGLOBIN 31.3 pg (27.0-33.4); MEAN CORPUSCULAR VOLUME 90 fl (80-97); MONOCYTES % (AUTO) 12.4 % (3-13); PLATELET COUNT 297 10^3/uL (150-450); RED BLOOD COUNT 3.49 10^6/uL (3.72-5.28); RED CELL DISTRIBUTION WIDTH 16.4 % (11.5-14.0); TOTAL CELLS COUNTED % (AUTO) 100 %; WHITE BLOOD COUNT 8.6 10^3/uL (4.0-10.5)
[2018-07-22 23:14] LABS: APPEARANCE,URINE CLOUDY; BILIRUBIN,URINE NEGATIVE (NEGATIVE); COLOR,URINE YELLOW; GLUCOSE, URINE 150 mg/dL (NEGATIVE); KETONES,URINE NEGATIVE (NEGATIVE); LEUKOCYTE ESTERASE,URINE NEGATIVE (NEGATIVE); NITRITE,URINE NEGATIVE (NEGATIVE); PROTEIN,URINE >=500 mg/dL (NEGATIVE); URINE SPECIFIC GRAVITY 1.014; UROBILINOGEN,URINE NEGATIVE mg/dL (<2.0)
[2018-07-22 23:24] LABS: SEGMENTED NEUTROPHILS % (AUTO) 62.8 % (42-78)
--- NOTE | 2018-07-22 23:24 | RADIOLOGY REPORT (SQ) ---
EXAM DESCRIPTION: XR CHEST 2 VIEWS COMPLETED DATE/TME: 07/22/2018 22:35 CLINICAL HISTORY: 63 years, Female, cough, sweats Comparison: February 10, 2018 FINDINGS: No focal lung consolidation. No pleural effusion. No pneumothorax. Cardiac silhouette is enlarged but stable. No acute osseous abnormality. Soft tissues are unremarkable. IMPRESSION: Cardiomegaly. No focal lung consolidation.
[2018-07-22 23:30] LABS: ALANINE AMINOTRANSFERASE 21 U/L (9-52); ALBUMIN 3.4 g/dL (3.5-5.0); ALKALINE PHOSPHATASE 96 U/L (38-126); ANION GAP 8 (5-19); ASPARTATE AMINO TRANSFERASE 20 U/L (14-36); BILIRUBIN,DIRECT 0.3 mg/dL (0.0-0.4); BILIRUBIN,TOTAL 0.5 mg/dL (0.2-1.3); BLOOD UREA NITROGEN 28 mg/dL (7-20); CARBON DIOXIDE 30 mmol/L (22-30); CHLORIDE 102 mmol/L (98-107); GLUCOSE 107 mg/dL (75-110); SODIUM 139.9 mmol/L (137-145); TOTAL PROTEIN 6.6 g/dL (6.3-8.2)
[2018-07-22 23:33] LABS: POTASSIUM 2.9 mmol/L (3.6-5.0)
[2018-07-23] MEDS ORDERED: NORMAL SALINE 500 ML IV ONE (04:31)
[2018-07-23] MEDS ORDERED: MORPHINE SULFATE 10 MG/ML INJ IV ONE (04:32)
--- NOTE | 2018-07-23 04:33 | ER Document Report ---
ED General - General Chief Complaint: Nausea/Vomiting/Diarrhea Stated Complaint: VOMITING,HEADACHE Time Seen by Provider: 07/22/18 22:35 Primary Care Provider: ANNIE ROSA MD [Primary Care Provider] - Follow up as needed Notes: Patient is a 63-year-old female with chief complaint of 4 days of feeling ill with cough, she states she has vomited multiple times today, she has generalized mid upper abdominal pain. Reports normal bowel movements. Reports night sweats but denies fevers. She reports current nausea. Denies specific chest pain. Past medical history includes CHF (on lasix), NILO, oxygen dependency on 2 L nasal cannula at all times, diabetes, hypertension. Denies smoking or COPD. Has had cholecystectomy. TRAVEL OUTSIDE OF THE [place] IN LAST 30 DAYS: No - Related Data Allergies/Adverse Reactions: No Known Allergies Allergy (Verified 07/23/18 07:58) Past Medical History - General Information source: Patient - Social History Smoking Status: Never Smoker Frequency of alcohol use: None Drug Abuse: None Lives with: Family Family History: Reviewed & Not Pertinent Patient has suicidal ideation: No Patient has homicidal ideation: No - Past Medical History Cardiac Medical History: Reports: Hx Congestive Heart Failure, Hx Hyperch olesterolemia, Hx Hypertension Denies: Hx Heart Attack Pulmonary Medical History: Reports: Hx Sleep Apnea - Not using CPAP at home Denies: Hx Asthma, Hx Bronchitis, Hx COPD, Hx Pneumonia Neurological Medical History: Denies: Hx Cerebrovascular Accident, Hx Seizures Endocrine Medical History: Reports: Hx Diabetes Mellitus Type 2 Renal/ Medical History: Denies: Hx Peritoneal Dialysis Musculoskeletal Medical History: Reports Hx Arthritis Psychiatric Medical History: Reports: Hx Depression Past Surgical History: Reports: Hx Cholecystectomy - Gallbladder Sx, Hx Tonsillectomy, Hx Tubal Ligation, Other - Carpal tunnel - Immunizations Hx Diphtheria, Pertussis, Tetanus Vaccination: Yes Review of Systems - Review of Systems Constitutional: No symptoms reported EENT: No symptoms reported Cardiovascular: See HPI Respiratory: See HPI Gastrointestinal: See HPI Genitourinary: No symptoms reported Female Genitourinary: No symptoms reported Musculoskeletal: No symptoms reported Skin: No symptoms reported Hematologic/Lymphatic: No symptoms reported Neurological/Psychological: No symptoms reported Physical Exam - Vital signs Vitals: Temp Pulse Resp BP Pulse Ox 98.7 F 95 20 133/73 H 93 07/22/18 21:28 07/22/18 21:28 07/22/18 21:28 07/22/18 21:28 07/22/18 21:28 - Notes Notes: GENERAL: Alert. Interactive. Somewhat chronically ill-appearing. Obese. On oxygen. HEAD: Normocephalic, atraumatic. EYES: Pupils equal, round, and reactive to light. Extraocular movements intact. ENT: Oral mucosa dry, tongue midline. Oropharynx unremarkable. Airway patent. Nares patent, no nasal septal hematoma, TM's intact. NECK: Full range of motion. Supple. Trachea midline. LUNGS: Clear to auscultation bilaterally but decreased throughout, no wheezes, rales, or rhonchi. No respiratory distress. Occasional coughing. HEART: Regular rate and rhythm. No murmur ABDOMEN: Generalized abdominal tenderness, no guarding, no rigidity. Nonspecific. Bowel sounds present. GENITOURINARY: Deferred EXTREMITIES: Moves all 4 extremities spontaneously. No edema, normal radial and dorsalis pedis pulses bilaterally. No cyanosis. BACK: no cervical, thoracic, lumbar midline tenderness. No saddle anesthesia, normal distal neurovascular exam. NEUROLOGICAL: Alert and oriented x3. Normal speech. Cranial nerves II through XII grossly intact]. PSYCH: Normal affect, normal mood. SKIN: Warm, dry, normal turgor. No rashes or lesions noted. Course - Re-evaluation Re-evalutation: EKG reviewed and interpreted by me, EKG shows sinus rhythm at a rate of 81, Q wave in lead III, flattened T waves anteriorly, no T wave inversions in consecutive leads. No significant change from prior. QTC is 428. Chest x-ray is unremarkable. CBC unremarkable. Chemistry shows hypokalemia at 2.9, we will check magnesium, give potassium. Unfortunately patient is also in acute renal insufficiency with creatinine of 2.29 and GFR that is lower than prior. Patient was given some fluids (500 cc bolus) because of the vomiting. Reevaluated patient, she has mild generalized abdominal tenderness. No specific guarding. Because of her history of kidney stones, reported vomiting, generalized abdominal pain, we did perform a CAT scan of the abdomen and pelvis without contrast. This showed nephrolithiasis without ureterolithiasis, no obstruction, umbilical hernia containing fat only. There is also an incidental moderate pericardial effusion. Troponin had been cycled and is downtrending. Concerned because of patient's acute renal insufficiency, hypokalemia, and history of congestive heart failure. She will need gentle rehydration, and her electrolyte derangement will need to be fixed. I discussed with Dr. Duron, recommends admission for treatment of acute renal insufficiency, treatment of hypokalemia. Patient states agreement with this plan. 07/23/[address] Berry, he will evaluate the patient. - Vital Signs Vital signs: Temp Pulse Resp BP Pulse Ox 98.1 F 80 19 165/86 H 98 07/23/18 04:29 07/23/18 04:29 07/23/18 08:01 07/23/18 08:01 07/23/18 08:01 - Laboratory Result Diagrams: 07/22/18 22:50 07/22/18 22:50 Laboratory results interpreted by me: 07/22/18 07/22/18 07/22/18 22:50 22:50 22:50 RBC 3.49 L Hgb 10.9 L Hct 31.2 L RDW 16.4 H Potassium 2.9 L* BUN 28 H Creatinine 2.23 H Est GFR ( Amer) 27 L Est GFR (Non-Af Amer) 22 L Albumin 3.4 L Urine Protein >=500 H Urine Glucose (UA) 150 H Urine Blood SMALL H Discharge - Discharge Clinical Impression: Hypokalemia, Acute renal insufficiency Vomiting Qualifiers: Vomiting type: unspecified Vomiting Intractability: non-intractable Nausea presence: with nausea Qualified Code(s): R11.2 - Nausea with vomiting, unspecified Abdominal pain Qualifiers: Abdominal location: generalized Qualified Code(s): R10.84 - Generalized abdominal pain Condition: Stable Disposition: ADMITTED OBSERVATION Admitting Provider: Gisele (Hospitalist) Unit Admitted: Medical Floor Referrals: ANNIE ROSA MD [Primary Care Provider] - Follow up as needed
[2018-07-23] MEDS ORDERED: PROMETHAZINE HCL INJ 25 MG/1 ML VIAL ONE (05:09)
[2018-07-23] MEDS: POTASSI CL 20 MEQ/50 ML RIDER 20 MEQ/50 ML RTUPB IV SCH ×2 (06:09→07:31)
--- NOTE | 2018-07-23 06:12 | RADIOLOGY REPORT (SQ) ---
CLINICAL HISTORY: vomiting, abd pain COMPARISON: None. TECHNIQUE: CT ABDOMEN PELVIS WITHOUT IV CONTRAST on 07/23/2018 4:25 AM CDT This exam was performed according to our departmental dose-optimization program, which includes automated exposure control, adjustment of the mA and/or kV according to patient size and/or use of iterative reconstruction technique. FINDINGS: There is a moderate pericardial effusion. Abdomen: The liver is normal in appearance. There is no biliary dilatation. Cholecystectomy was performed. The pancreas and spleen are normal in appearance. Adrenal glands are normal. Kidneys are mildly atrophic. There is a small mid pole right renal calculus. Abdominal aorta is normal in course and caliber without aneurysm. There is no free air. There is no retroperitoneal adenopathy.There is a moderate fat-containing umbilical hernia. Pelvis: There is no bowel obstruction. There is air in the urinary bladder. There is no free fluid. Uterus is normal in size. Appendix is normal. Skeleton: There are no acute osseous findings. No suspicious bony lesions. IMPRESSION: No bowel obstruction. Moderate pericardial effusion.
[2018-07-23] MEDS ORDERED: POTASSIUM CHLORIDE 10 MEQ CAPSULE.ER PO ONE (06:34)
[2018-07-23] MEDS ORDERED: IPRATROPIUM/ALBUTEROL 0.5-2.5 MG/3 ML AMPUL NEB PRN (11:55)
[2018-07-23] MEDS ORDERED: ACETAMINOPHEN 325 MG TABLET PO PRN (11:55)
[2018-07-23] MEDS ORDERED: POTASSI CL 20 MEQ/50 ML RIDER 20 MEQ/50 ML RTUPB IV SCH (12:15)
[2018-07-23] MEDS ORDERED: FLUTICASONE NASAL SPRAY 50 MCG/SPRY 120 SPRAY/16 GM NASL PRN (12:31)
[2018-07-23] MEDS ORDERED: (PENDING PHARMACY ID) (Mirabegron [Myrbetriq] 50 MG) PO SCH (12:45)
[2018-07-23] MEDS ORDERED: (PENDING PHARMACY ID) (Lisinopril [Zestril] 20 MG) PO SCH (12:45)
[2018-07-23] MEDS ORDERED: METOPROLOL TARTRATE 100 MG TABLET PO ONE (13:30)
[2018-07-23] MEDS: POTASSIUM CHLORIDE 20 MEQ/50 ML RTU IV SCH ×2 (13:50→15:08)
[2018-07-23] MEDS: ESCITALOPRAM OXALATE 10 MG TABLET PO SCH (15:07)
[2018-07-23] MEDS: LISINOPRIL 10 MG TABLET PO SCH (15:07)
[2018-07-23] MEDS: HEPARIN SOD (PORCINE) 5,000 UNIT/ML 1 ML SYRINGE SUBCUT SCH ×2 (15:08→21:23)
[2018-07-23] MEDS ORDERED: DEXTROSE 50%-WATER SYRINGE 25 GM/50 ML DOSE IV PRN (17:00)
[2018-07-23] MEDS ORDERED: DEXTROSE 50%-WATER SYRINGE 12.5 GM/25 ML DOSE IV PRN (17:00)
[2018-07-23] MEDS ORDERED: DEXTROSE 40% GEL 15 GM TUBE PO PRN (17:00)
[2018-07-23] MEDS ORDERED: GLUCAGON,HUMAN RECOMB 1 MG INJ IM PRN (17:00)
[2018-07-23] MEDS ORDERED: DEXTROSE 40% GEL 15 GM TUBE X 2 PO PRN (17:00)
[2018-07-23] MEDS: INSULIN LISPRO 100 UNIT/ML 3 ML VIAL SUBCUT SCH ×2 (17:41→21:22)
[2018-07-23] MEDS: DOCUSATE SODIUM 100 MG CAPSULE PO SCH (17:43)
[2018-07-23] MEDS ORDERED: INSULIN GLARGINE,HUM.REC.ANLOG 1,000 UNIT/10 ML VIAL SUBCUT SCH (18:00)
[2018-07-23] MEDS: METOPROLOL TARTRATE 50 MG TABLET PO SCH (21:23)
[2018-07-23] MEDS: GABAPENTIN 300 MG CAPSULE PO SCH (21:23)
[2018-07-23] MEDS: INSULIN GLARGINE,HUM.REC.ANLOG 1,000 UNIT/10 ML VIAL SUBCUT SCH (21:23)
[2018-07-23] MEDS: ATORVASTATIN CALCIUM 40 MG TABLET PO SCH (21:23)
[2018-07-23] MEDS: TRAMADOL HCL 50 MG TABLET PO SCH (21:24)
--- NOTE | 2018-07-23 22:36 | EKG REPORT ---
SEVERITY:- BORDERLINE ECG - SINUS RHYTHM LOW VOLTAGE THROUGHOUT BORDERLINE T ABNORMALITIES, ANT-LAT LEADS : Confirmed by: Sparkle Ingram 23-Jul-2018 22:34:47
[2018-07-24] MEDS: HYDRALAZINE HCL INJ/PF 20 MG/1 ML SDV IV PRN (00:39)
[2018-07-24] MEDS ORDERED: AMLODIPINE BESYLATE 10 MG TABLET PO ONE (01:21)
[2018-07-24] MEDS: HEPARIN SOD (PORCINE) 5,000 UNIT/ML 1 ML SYRINGE SUBCUT SCH ×3 (05:32→21:18)
[2018-07-24] MEDS: INSULIN LISPRO 100 UNIT/ML 3 ML VIAL SUBCUT SCH ×7 (07:32→21:17)
[2018-07-24 07:46] LABS: ANION GAP 5 (5-19); BLOOD UREA NITROGEN 34 mg/dL (7-20); CALCIUM 8.4 mg/dL (8.4-10.2); CARBON DIOXIDE 29 mmol/L (22-30); CHLORIDE 107 mmol/L (98-107); GLUCOSE 186 mg/dL (75-110); POTASSIUM 4.5 mmol/L (3.6-5.0); SODIUM 140.8 mmol/L (137-145)
[2018-07-24] MEDS ORDERED: FUROSEMIDE INJ/PF 40 MG/4 ML SDV IV ONE (09:00)
[2018-07-24] MEDS: DOCUSATE SODIUM 100 MG CAPSULE PO SCH ×2 (09:09→18:56)
[2018-07-24] MEDS: ESCITALOPRAM OXALATE 10 MG TABLET PO SCH (09:16)
[2018-07-24] MEDS: CETIRIZINE 10 MG TABLET PO SCH (09:16)
[2018-07-24] MEDS: TRAMADOL HCL 50 MG TABLET PO SCH ×2 (09:17→21:19)
[2018-07-24] MEDS: GABAPENTIN 300 MG CAPSULE PO SCH ×2 (09:17→21:16)
[2018-07-24] MEDS: AMLODIPINE BESYLATE 10 MG TABLET PO SCH (09:17)
[2018-07-24] MEDS: METOPROLOL TARTRATE 50 MG TABLET PO SCH ×2 (09:17→21:16)
[2018-07-24] MEDS: LISINOPRIL 10 MG TABLET PO SCH (09:17)
[2018-07-24] MEDS: MULTIVITAMIN TABLET PO SCH (09:17)
[2018-07-24] MEDS ORDERED: ALPRAZOLAM 0.5 MG TABLET PO PRN (09:28)
[2018-07-24] MEDS ORDERED: (PENDING PHARMACY ID) (Nitrofurantoin Macrocrystal [Macrodantin] 100 MG) PO SCH (10:00)
[2018-07-24] MEDS: FUROSEMIDE 20 MG TABLET PO SCH (10:29)
[2018-07-24] MEDS: ALPRAZOLAM 0.5 MG TABLET PO ONE ×2 (10:37→10:41)
--- NOTE | 2018-07-24 10:58 | PDOC PROGRESS REPORT ---
Subjective Progress Note for:: 07/24/18 Subjective:: This is 63 years old female patient with multiple comorbidities including morbid obesity, coronary 30s, diastolic CHF, hypertension, hyperlipidemia, obstructive sleep apnea, stage III CKD and type 2 diabetes mellitus presented with complaint 2 weeks duration of nausea and vomiting associated with right upper quadrant pain. Patient denies any fever chills palpitation or diaphoresis. Her gallbladder surgically removed. Her blood work shows market hypokalemia with potassium of 2.9. Today her potassium level is corrected. Vomiting is improving she just has one episode this morning. Reason For Visit: INTRACTABLE NAUSEA VOMITING,HYPOKALEMIA Physical Exam Vital Signs: Temp Pulse Resp BP Pulse Ox 98.3 F 84 23 H 148/64 H 92 07/24/18 07:18 07/24/18 09:41 07/24/18 09:41 07/24/18 07:18 07/24/18 09:41 Intake & Output 07/23/18 07/24/18 07/25/18 06:59 06:59 06:59 Intake Total 2029 Balance 2029 Weight 120.5 kg 122.3 kg General appearance: PRESENT: no acute distress Head exam: PRESENT: atraumatic Eye exam: PRESENT: conjunctiva pink Neck exam: ABSENT: carotid bruit, JVD, lymphadenopathy, thyromegaly Respiratory exam: PRESENT: decreased breath sounds Cardiovascular exam: PRESENT: RRR. ABSENT: diastolic murmur, rubs, systolic murmur Neurological exam: PRESENT: alert, awake, oriented to time, oriented to situation Results Laboratory Results: 07/22/18 22:50 07/24/18 06:45 07/24/18 06:45 Sodium 140.8 Potassium 4.5 Chloride 107 Carbon Dioxide 29 Anion Gap 5 BUN 34 H Creatinine 2.60 H Est GFR ( Amer) 22 L Est GFR (Non-Af Amer) 18 L Glucose 186 H Calcium 8.4 07/22/18 07/23/18 22:50 05:33 Troponin I 0.042 0.040 Impressions: Chest X-Ray 07/22/18 22:35 IMPRESSION: Cardiomegaly. No focal lung consolidation. Abdomen/Pelvis CT 07/23/18 04:25 IMPRESSION: No bowel obstruction. Moderate pericardial effusion. Assessment and Plan - Diagnosis (1) Intractable nausea and vomiting Qualifiers: Vomiting type: unspecified Qualified Code(s): R11.2 - Nausea with vomiting, unspecified Is this a current diagnosis for this admission?: Yes Plan: Patient has been on antiemetic. Her vomiting is improved. This morning she had only one episode. (2) Hypokalemia Is this a current diagnosis for this admission?: Yes Plan: Corrected (3) Hypertension Qualifiers: Hypertension type: essential hypertension Qualified Code(s): I10 - Essential (primary) hypertension Is this a current diagnosis for this admission?: Yes Plan: Uncontrolled. Patient takes regularly lisinopril 20 mg p.o. daily. Add metoprolol 50 mg twice daily. (4) Type 2 diabetes mellitus Is this a current diagnosis for this admission?: Yes Plan: We will continue current regimen (5) Morbid obesity with BMI of 45.0-49.9, adult Is this a current diagnosis for this admission?: Yes Plan: Lifestyle modification advised. (6) Hyperlipidemia Qualifiers: Hyperlipidemia type: unspecified Qualified Code(s): E78.5 - Hyperlipidemia, unspecified Is this a current diagnosis for this admission?: Yes Plan: Continue her home statin. (7) Obstructive sleep apnea Is this a current diagnosis for this admission?: Yes Plan: Continue with CPAP with home set. (8) Stage III chronic kidney disease Is this a current diagnosis for this admission?: Yes Plan: Will avoid nephrotoxic agents. Dr. Ramirez consulted. (9) Coronary artery disease Qualifiers: Coronary Disease-Associated Artery/Lesion type: [place] artery Is this a current diagnosis for this admission?: Yes Plan: No anginal symptoms. (10) Diastolic CHF Qualifiers: Heart failure chronicity: chronic Qualified Code(s): I50.32 - Chronic diastolic (congestive) heart failure Is this a current diagnosis for this admission?: Yes Plan: Compensated.
--- NOTE | 2018-07-24 11:51 | RADIOLOGY REPORT (SQ) ---
EXAM DESCRIPTION: CHEST SINGLE VIEW COMPLETED DATE/TIME: 07/24/2018 11:31 am REASON FOR STUDY: Shortness of breath COMPARISON: 07/22/2018 EXAM PARAMETERS: NUMBER OF VIEWS: One view. TECHNIQUE: Single frontal radiographic view of the chest acquired. RADIATION DOSE: NA LIMITATIONS: Body habitus. FINDINGS: LUNGS AND PLEURA: Silhouetting of the left heart border and diaphragm. Right lung is durga r. MEDIASTINUM AND HILAR STRUCTURES: Stable. HEART AND VASCULAR STRUCTURES: Cardiomegaly. BONES: No acute findings. HARDWARE: None in the chest. OTHER: No other significant finding. IMPRESSION: Cardiomegaly. Atelectasis or early pneumonia left lower lobe. TECHNICAL DOCUMENTATION: JOB ID: [id number] [employer]- All Rights Reserved Reading location - IP/workstation name: [email or web address]
[2018-07-24] MEDS: LEVOFLOXACIN 750 MG/D5W RTU 750 MG/150 ML RTUPB IV SCH (12:49)
[2018-07-24 16:10] LABS: ARTERIAL BLOOD BASE EXCESS -0.9 mmol/L; ARTERIAL BLOOD H2CO3 2.06 mmol/L (1.05-1.35); ARTERIAL BLOOD HCO3 27.7 mmol/L (20-24); ARTERIAL BLOOD O2 SATURATION 90.4 % (94-98); ARTERIAL BLOOD PCO2 68.4 mmHg (35-45); ARTERIAL BLOOD PH 7.23 (7.35-7.45); ARTERIAL BLOOD PO2 70.7 mmHg (80-100); ARTERIAL BLOOD TOTAL CO2 29.8 mmol/L (21-25)
[2018-07-24 16:12] LABS: ARTERIAL BLOOD FIO2 40%
[2018-07-24] MEDS ORDERED: METHYLPREDNISOLONE INJ 125 MG/2 ML SDV IV ONE (16:45)
[2018-07-24] MEDS ORDERED: METHYLPREDNISOLONE INJ 125 MG/2 ML SDV ONE (18:58)
[2018-07-24 18:59] LABS: ARTERIAL BLOOD BASE EXCESS -0.8 mmol/L; ARTERIAL BLOOD H2CO3 1.78 mmol/L (1.05-1.35); ARTERIAL BLOOD HCO3 26.9 mmol/L (20-24); ARTERIAL BLOOD O2 SATURATION 90.7 % (94-98); ARTERIAL BLOOD PCO2 59.3 mmHg (35-45); ARTERIAL BLOOD PH 7.27 (7.35-7.45); ARTERIAL BLOOD PO2 67.8 mmHg (80-100); ARTERIAL BLOOD TOTAL CO2 28.7 mmol/L (21-25)
[2018-07-24 19:01] LABS: ARTERIAL BLOOD FIO2 35%
[2018-07-24] MEDS: IPRATROPIUM/ALBUTEROL 0.5-2.5 MG/3 ML AMPUL NEB SCH (19:41)
[2018-07-24] MEDS: ATORVASTATIN CALCIUM 40 MG TABLET PO SCH (21:16)
[2018-07-24] MEDS: INSULIN GLARGINE,HUM.REC.ANLOG 1,000 UNIT/10 ML VIAL SUBCUT SCH (21:17)
[2018-07-24] MEDS: METHYLPREDNISOLONE INJ 40 MG/1 ML SDV IV SCH (21:18)
[2018-07-25] MEDS: IPRATROPIUM/ALBUTEROL 0.5-2.5 MG/3 ML AMPUL NEB SCH ×4 (01:42→20:27)
[2018-07-25] MEDS: HEPARIN SOD (PORCINE) 5,000 UNIT/ML 1 ML SYRINGE SUBCUT SCH ×3 (05:15→22:32)
[2018-07-25] MEDS: METHYLPREDNISOLONE INJ 40 MG/1 ML SDV IV SCH ×3 (05:15→22:31)
[2018-07-25] MEDS: INSULIN LISPRO 100 UNIT/ML 3 ML VIAL SUBCUT SCH ×7 (08:22→22:34)
[2018-07-25] MEDS ORDERED: GUAIFENESIN 600 MG TABLET.SA PO ONE (08:55)
[2018-07-25] MEDS: LEVOFLOXACIN 750 MG/D5W RTU 750 MG/150 ML RTUPB IV SCH (09:57)
[2018-07-25] MEDS: FUROSEMIDE 20 MG TABLET PO SCH (09:57)
[2018-07-25] MEDS: LISINOPRIL 10 MG TABLET PO SCH (09:57)
[2018-07-25] MEDS: AMLODIPINE BESYLATE 10 MG TABLET PO SCH (09:58)
[2018-07-25] MEDS: TRAMADOL HCL 50 MG TABLET PO SCH ×2 (09:58→22:39)
[2018-07-25] MEDS: METOPROLOL TARTRATE 50 MG TABLET PO SCH ×2 (09:58→22:38)
[2018-07-25] MEDS: MULTIVITAMIN TABLET PO SCH (09:58)
[2018-07-25] MEDS: ESCITALOPRAM OXALATE 10 MG TABLET PO SCH (09:58)
[2018-07-25] MEDS: DOCUSATE SODIUM 100 MG CAPSULE PO SCH ×2 (09:58→17:55)
[2018-07-25] MEDS: GABAPENTIN 300 MG CAPSULE PO SCH ×2 (09:58→22:37)
[2018-07-25] MEDS: CETIRIZINE 10 MG TABLET PO SCH (09:58)
[2018-07-25 10:05] LABS: ARTERIAL BLOOD BASE EXCESS -1.5 mmol/L; ARTERIAL BLOOD H2CO3 1.49 mmol/L (1.05-1.35); ARTERIAL BLOOD O2 SATURATION 97.2 % (94-98); ARTERIAL BLOOD PCO2 49.5 mmHg (35-45); ARTERIAL BLOOD PH 7.32 (7.35-7.45); ARTERIAL BLOOD TOTAL CO2 26.5 mmol/L (21-25)
[2018-07-25 10:08] LABS: ARTERIAL BLOOD FIO2 40%
--- NOTE | 2018-07-25 11:24 | PDOC PROGRESS REPORT ---
Subjective Progress Note for:: 07/25/18 Subjective:: Patient has an episode of severe respiratory distress evidenced by tachypnea and blood breathing. Stat ABG was done and it shows pH of 7.23 PCO2 68.4 and PO2 of 70.7. Stat portable chest x-ray shows developing early pneumonia involving the left lower lobe. Patient status is upgraded to inpatient. She has been started on IV Levaquin, IV Solu-Medrol and BiPAP. This morning I seen patient sitting by the bedside getting breathing treatment. Her repeat ABG which is done this morning shows market improvement in her pH become 7.32, PCO2 49.5 and her PO2 is 103 while she is on 40% FiO2. Reason For Visit: INTRACTABLE NAUSEA VOMITING,HYPOKALEMIA Physical Exam Vital Signs: Temp Pulse Resp BP Pulse Ox 98.0 F 74 18 168/71 H 96 07/25/18 07:15 07/25/18 08:46 07/25/18 08:46 07/25/18 07:15 07/25/18 08:46 Intake & Output 07/24/18 07/25/18 07/26/18 06:59 06:59 06:59 Intake Total 2029 1280 Output Total 550 Balance 2029 730 Weight 122.3 kg 125.3 kg General appearance: PRESENT: mild distress Head exam: PRESENT: atraumatic Eye exam: PRESENT: conjunctiva pink Neck exam: ABSENT: carotid bruit, JVD, lymphadenopathy, thyromegaly Respiratory exam: PRESENT: decreased breath sounds, wheezes GI/Abdominal exam: PRESENT: normal bowel sounds, soft. ABSENT: distended, guarding, mass, organolmegaly, rebound, tenderness Neurological exam: PRESENT: alert, awake, oriented to time, oriented to situation Results Laboratory Results: 07/22/18 22:50 07/24/18 06:45 07/24/18 07/24/18 07/25/18 15:40 18:32 09:40 Carbonic Acid 2.06 H 1.78 H 1.49 H HCO3/H2CO3 Ratio 13:1 15:1 16:1 ABG pH 7.23 L 7.27 L 7.32 L ABG pCO2 68.4 H 59.3 H 49.5 H ABG pO2 70.7 L 67.8 L 103.0 H ABG HCO3 27.7 H 26.9 H 25.0 H ABG O2 Saturation 90.4 L 90.7 L 97.2 ABG Base Excess -0.9 -0.8 -1.5 FiO2 40% 35% 40% 07/22/18 07/23/18 22:50 05:33 Troponin I 0.042 0.040 Impressions: Abdomen/Pelvis CT 07/23/18 04:25 IMPRESSION: No bowel obstruction. Moderate pericardial effusion. Chest X-Ray 07/24/18 00:00 IMPRESSION: Cardiomegaly. Atelectasis or early pneumonia left lower lobe. Assessment and Plan - Diagnosis (1) Acute respiratory failure with hypoxia and hypercapnia Is this a current diagnosis for this admission?: Yes Plan: Patient has been started on BiPAP, bronchodilators and Solu-Medrol. (2) Intractable nausea and vomiting Qualifiers: Vomiting type: unspecified Qualified Code(s): R11.2 - Nausea with vomiting, unspecified Is this a current diagnosis for this admission?: Yes Plan: Has been subsiding (3) Hypokalemia Is this a current diagnosis for this admission?: Yes Plan: Resolved (4) Hypertension Qualifiers: Hypertension type: essential hypertension Qualified Code(s): I10 - Essential (primary) hypertension Is this a current diagnosis for this admission?: Yes Plan: Uncontrolled. Patient takes regularly lisinopril 20 mg p.o. daily. Add metoprolol 50 mg twice daily. (5) Type 2 diabetes mellitus Is this a current diagnosis for this admission?: Yes Plan: We will continue current regimen (6) Morbid obesity with BMI of 45.0-49.9, adult Is this a current diagnosis for this admission?: Yes Plan: Lifestyle modification advised. (7) Hyperlipidemia Qualifiers: Hyperlipidemia type: unspecified Qualified Code(s): E78.5 - Hyperlipidemia, unspecified Is this a current diagnosis for this admission?: Yes Plan: Continue her home statin. (8) Obstructive sleep apnea Is this a current diagnosis for this admission?: Yes Plan: Continue with CPAP with home set. (9) Stage III chronic kidney disease Is this a current diagnosis for this admission?: Yes Plan: Will avoid nephrotoxic agents. Dr. Ramirez consulted. (10) Coronary artery disease Qualifiers: Coronary Disease-Associated Artery/Lesion type: [place] artery Is this a current diagnosis for this admission?: Yes Plan: No anginal symptoms. (11) Diastolic CHF Qualifiers: Heart failure chronicity: chronic Qualified Code(s): I50.32 - Chronic diastolic (congestive) heart failure Is this a current diagnosis for this admission?: Yes Plan: Compensated. (12) Left lower lobe pneumonia Is this a current diagnosis for this admission?: Yes Plan: Patient has been started on Levaquin.
--- NOTE | 2018-07-25 12:44 | XCELERA REPORT ---
[address] [address] Transthoracic Echocardiogram Report Name: FINA HERNÁNDEZ Age: 63 yrs Gender: Female : 1955 Patient Status: Inpatient Patient Location: [address] [place], [place] [id number] Study Date: 07/23/2018 10:56 AM Height: 64 in Weight: 265 lb BSA: 2.2 m2 Procedure: A two-dimensional transthoracic echocardiogram with color flow and Doppler was performed. Study Quality: Poor. The study was technically difficult with many images being suboptimal in quality. Poor endocardial visualisation , and poor doppler interogation. Reason For Study: CHF History: CHF. Ordering Physician: YENI YARBROUGH Performed By: Mary Carrillo Interpretation Summary Poor endocardial visualisation , and poor doppler interogation. The left ventricle is grossly normal size. There is mild concentric left ventricular hypertrophy. Probably no regional wall motion abnormality and probably low normal LVEF of 55%.But cannot be sure. Doppler measurements suggest impaired left ventricular relaxation, which is associated with grade I/IV or mild diastolic dysfunction There is no thrombus. Probably no ASD, VSD , or PFO seen. The right atrium is normal. The left atrium is borderline dilated. There is no evidence of mitral valve prolapse. There is no mitral valve stenosis. There is no vegetation seen on the mitral valve. There is a trace amount of mitral regurgitation There is no aortic valvular vegetation. There is no aortic valve stenosis There is aortic sclerosis without aortic stenosis. There is a trace amount of aortic regurgitation There is no tricuspid stenosis. There is a trace amount of tricuspid regurgitation There is mild pulmonary hypertension by echo RVSP is 41 to 46 mm of Hg , with RA mean of 5 to 10. There is a trace amount of pulmonic regurgitation The inferior vena cava appeared normal and decreased > 50% with respiration (RAP 5-10 mmHg) Small pericardial effusion. There are no echocardiographic or Doppler indications for cardiac tamponade MMode/2D Measurements & Calculations RVDd: 3.9 cm LVIDd: 5.0 cm FS: 30.4 % Ao root diam: 3.1 cm IVSd: 1.3 cm LVIDs: 3.5 cm EDV(Teich): 117.8 ml Ao root area: 7.8 cm2 LVPWd: 1.3 cm ESV(Teich): 50.0 ml LA dimension: 4.1 cm EF(Teich): 57.5 % Doppler Measurements & Calculations MV E max oksana: MV P1/2t max oksana: Ao V2 max: LV V1 max P.6 cm/sec 73.5 cm/sec 131.2 cm/sec 2.9 mmHg MV A max oksana: MV P1/2t: 81.0 msec Ao max PG: LV V1 max: 105.1 cm/sec MVA(P1/2t): 2.7 cm2 6.9 mmHg 84.9 cm/sec MV E/A: 0.69 MV dec slope: 265.8 cm/sec2 MV dec time: 0.29 sec PA V2 max: PI end-d oksana: TR max oksana: MV P1/2t-pr_phl: 80.5 cm/sec 170.8 cm/sec 297.3 cm/sec 81.0 msec PA max P.6 mmHg TR max P.3 mmHg Left Ventricle The left ventricle is grossly normal size. There is mild concentric left ventricular hypertrophy. Probably no regional wall motion abnormality and probably low normal LVEF of 55%.But cannot be sure. Doppler measurements suggest impaired left ventricular relaxation, which is associated with grade I/IV or mild diastolic dysfunction. There is no thrombus. Probably no ASD, VSD , or PFO seen. Right Ventricle The right ventricle is grossly normal size. The right ventricle is not well visualized secondary to technical limitations. Atria The right atrium is normal. The left atrium is borderline dilated. Mitral Valve There is no evidence of mitral valve prolapse. There is no vegetation seen on the mitral valve. There is no mitral valve stenosis. There is a trace amount of mitral regurgitation. Aortic Valve There is no aortic valvular vegetation. There is no aortic valve stenosis. There is aortic sclerosis without aortic stenosis. There is no LVOT obstruction. There is a trace amount of aortic regurgitation. Tricuspid Valve There is no tricuspid stenosis. There is a trace amount of tricuspid regurgitation. There is mild pulmonary hypertension by echo. RVSP is 41 to 46 mm of Hg , with RA mean of 5 to 10. Pulmonic Valve There is no pulmonic valvular stenosis. There is a trace amount of pulmonic regurgitation. Great Vessels The aortic root is not well visualized. The inferior vena cava appeared normal and decreased > 50% with respiration (RAP 5-10 mmHg). Effusions Small pericardial effusion. There are no echocardiographic or Doppler indications for cardiac tamponade. : YENI YARBROUGH > Nicole Rodriguez
[2018-07-25] MEDS: INSULIN GLARGINE,HUM.REC.ANLOG 1,000 UNIT/10 ML VIAL SUBCUT SCH (22:36)
[2018-07-25] MEDS: ATORVASTATIN CALCIUM 40 MG TABLET PO SCH (22:37)
[2018-07-25] MEDS: GUAIFENESIN 600 MG TABLET.SA PO SCH (22:38)
[2018-07-26] MEDS: IPRATROPIUM/ALBUTEROL 0.5-2.5 MG/3 ML AMPUL NEB SCH ×4 (02:44→19:15)
[2018-07-26] MEDS: METHYLPREDNISOLONE INJ 40 MG/1 ML SDV IV SCH ×3 (05:39→21:50)
[2018-07-26] MEDS: HEPARIN SOD (PORCINE) 5,000 UNIT/ML 1 ML SYRINGE SUBCUT SCH ×3 (05:40→21:49)
[2018-07-26] MEDS: HYDRALAZINE HCL INJ/PF 20 MG/1 ML SDV IV PRN (07:52)
[2018-07-26] MEDS: INSULIN LISPRO 100 UNIT/ML 3 ML VIAL SUBCUT SCH ×7 (07:53→21:49)
[2018-07-26] MEDS: TRAMADOL HCL 50 MG TABLET PO SCH ×2 (09:56→21:51)
[2018-07-26] MEDS: LEVOFLOXACIN 750 MG/D5W RTU 750 MG/150 ML RTUPB IV SCH (10:01)
[2018-07-26] MEDS: GABAPENTIN 300 MG CAPSULE PO SCH ×2 (10:02→21:51)
[2018-07-26] MEDS: CETIRIZINE 10 MG TABLET PO SCH (10:02)
[2018-07-26] MEDS: LISINOPRIL 10 MG TABLET PO SCH (10:02)
[2018-07-26] MEDS: ESCITALOPRAM OXALATE 10 MG TABLET PO SCH (10:02)
[2018-07-26] MEDS: MULTIVITAMIN TABLET PO SCH (10:03)
[2018-07-26] MEDS: METOPROLOL TARTRATE 50 MG TABLET PO SCH ×2 (10:03→21:54)
[2018-07-26] MEDS: FUROSEMIDE 20 MG TABLET PO SCH (10:03)
[2018-07-26] MEDS: AMLODIPINE BESYLATE 10 MG TABLET PO SCH (10:03)
[2018-07-26] MEDS: DOCUSATE SODIUM 100 MG CAPSULE PO SCH ×2 (10:03→17:56)
[2018-07-26] MEDS: GUAIFENESIN 600 MG TABLET.SA PO SCH ×2 (10:03→21:50)
[2018-07-26 10:30] LABS: ARTERIAL BLOOD BASE EXCESS 0.1 mmol/L; ARTERIAL BLOOD FIO2 4L; ARTERIAL BLOOD H2CO3 1.55 mmol/L (1.05-1.35); ARTERIAL BLOOD HCO3 26.7 mmol/L (20-24); ARTERIAL BLOOD O2 SATURATION 98.3 % (94-98); ARTERIAL BLOOD PCO2 51.6 mmHg (35-45); ARTERIAL BLOOD PH 7.33 (7.35-7.45); ARTERIAL BLOOD PO2 129.5 mmHg (80-100); ARTERIAL BLOOD TOTAL CO2 28.2 mmol/L (21-25)
--- NOTE | 2018-07-26 14:54 | PDOC PROGRESS REPORT ---
Subjective Progress Note for:: 07/26/18 Subjective:: This is 63 years old female patient with multiple comorbidities including morbid obesity, coronary 30s, diastolic CHF, hypertension, hyperlipidemia, obstructive sleep apnea, stage III CKD and type 2 diabetes mellitus presented with complaint 2 weeks duration of nausea and vomiting associated with right upper quadrant pain. Patient denies any fever chills palpitation or diaphoresis. Her gallbladder surgically removed. Her blood work shows marked hypokalemia with potassium of 2.9. Patient has been managed with bronchodilator and IV Lasix and the rest of her home medications.Patient had an episode of severe respiratory distress evidenced by tachypnea and laboured breathing. Stat ABG was done and it shows pH of 7.23 PCO2 68.4 and PO2 of 70.7. Stat portable chest x-ray reported as developing early pneumonia involving the left lower lobe. Patient status was upgraded to inpatient. She has been started on IV Levaquin, IV Solu-Medrol and BiPAP. Patient seen resting the bed comfortably while she is getting oxygen via nasal cannula. Her ABG showed improvement. Her hyperkalemia has been corrected. Reason For Visit: INTRACTABLE NAUSEA VOMITING,HYPOKALEMIA Physical Exam Vital Signs: Temp Pulse Resp BP Pulse Ox 98.4 F 73 18 125/73 98 07/26/18 12:00 07/26/18 13:53 07/26/18 13:53 07/26/18 12:00 07/26/18 13:53 Intake & Output 07/25/18 07/26/18 07/27/18 06:59 06:59 06:59 Intake Total 1280 888 360 Output Total 550 300 Balance 730 588 360 Weight 125.3 kg 125.1 kg Results Laboratory Results: 07/22/18 22:50 07/24/18 06:45 07/26/18 10:07 Carbonic Acid 1.55 H HCO3/H2CO3 Ratio 17:1 ABG pH 7.33 L ABG pCO2 51.6 H ABG pO2 129.5 H ABG HCO3 26.7 H ABG O2 Saturation 98.3 H ABG Base Excess 0.1 FiO2 4L 07/22/18 07/23/18 22:50 05:33 Troponin I 0.042 0.040 Impressions: Abdomen/Pelvis CT 07/23/18 04:25 IMPRESSION: No bowel obstruction. Moderate pericardial effusion. Chest X-Ray 07/24/18 00:00 IMPRESSION: Cardiomegaly. Atelectasis or early pneumonia left lower lobe. Assessment and Plan - Diagnosis (1) Acute respiratory failure with hypoxia and hypercapnia Is this a current diagnosis for this admission?: Yes Plan: Patient has been started on BiPAP, bronchodilators and Solu-Medrol. (2) Intractable nausea and vomiting Qualifiers: Vomiting type: unspecified Qualified Code(s): R11.2 - Nausea with vomiting, unspecified Is this a current diagnosis for this admission?: Yes Plan: Has been subsiding (3) Hypokalemia Is this a current diagnosis for this admission?: Yes Plan: Resolved (4) Hypertension Qualifiers: Hypertension type: essential hypertension Qualified Code(s): I10 - Essential (primary) hypertension Is this a current diagnosis for this admission?: Yes Plan: Uncontrolled. Patient takes regularly lisinopril 20 mg p.o. daily. Add metoprolol 50 mg twice daily. (5) Type 2 diabetes mellitus Is this a current diagnosis for this admission?: Yes Plan: We will continue current regimen (6) Morbid obesity with BMI of 45.0-49.9, adult Is this a current diagnosis for this admission?: Yes Plan: Lifestyle modification advised. (7) Hyperlipidemia Qualifiers: Hyperlipidemia type: unspecified Qualified Code(s): E78.5 - Hyperlipidemia, unspecified Is this a current diagnosis for this admission?: Yes Plan: Continue her home statin. (8) Obstructive sleep apnea Is this a current diagnosis for this admission?: Yes Plan: Continue with CPAP with home set. (9) Stage III chronic kidney disease Is this a current diagnosis for this admission?: Yes Plan: Will avoid nephrotoxic agents. Dr. Ramirez consulted. (10) Coronary artery disease Qualifiers: Coronary Disease-Associated Artery/Lesion type: [place] artery Is this a current diagnosis for this admission?: Yes Plan: No anginal symptoms. (11) Diastolic CHF Qualifiers: Heart failure chronicity: chronic Qualified Code(s): I50.32 - Chronic diastolic (congestive) heart failure Is this a current diagnosis for this admission?: Yes Plan: Compensated. (12) Left lower lobe pneumonia Is this a current diagnosis for this admission?: Yes Plan: Patient has been started on Levaquin.
--- NOTE | 2018-07-26 16:33 | PDOC CONSULTATION ---
Consultation Consult Date: 07/26/18 Provider Consulted: Jez OSUNA History of Present Illness Admission Date/PCP: 07/24/18 18:23 ANNIE ROSA MD History of Present Illness: FINA HERNÁNDEZ is a 63 year old female with a history of ype 2 diabetes mellitus, Hypertension, morbid obesity, coronary artery disease, diastolic CHF, obstructive sleep apnea, stage III CKD, Sleep apnea not using CPAP at home, presented with complaint of intermittent nausea and vomiting associated with intermittent right upper quadrant pain of 2 weeks duration followed by a week's history of intermittent cough with yellow-green expectoration.. Patient denies any fever chills palpitation or diaphoresis. She has not been diagnosed with emerging pneumonia. She has been begun on IV antibiotics, steroids and BiPAP and has made a decent amount of recovery. No complaints of any abdominal pains currently. She is status post cholecystectomy in the remote past.Patient seen resting the bed comfortably while she is getting oxygen via nasal cannula. Her baseline creatinine was around 1.5. Initial presentation showed acute worsening of her CKD along with severe hypokalemia which has been corrected. Labs and medications were reviewed. She is nonoliguric. Past Medical History Cardiac Medical History: Reports: Coronary Artery Disease - high chol, Hyperlipidemia, Hypertension-primary Denies: Myocardial Infarction Pulmonary Medical History: Reports: Sleep Apnea - Not using CPAP at home Denies: Asthma, Bronchitis, Chronic Obstructive Pulmonary Disease (COPD), Pneumonia Neurological Medical History: Denies: Seizures Endocrine Medical History: Reports: Diabetes Mellitus Type 2 Renal/ Medical History: Reports: Chronic Kidney Disease Stage III Musculoskeltal Medical History: Reports: Arthritis Psychiatric Medical History: Reports: Depression Past Surgical History Past Surgical History: Reports: Cholecystectomy - Gallbladder Sx, Tonsillectomy, Tubal Ligation, Other - Carpal tunnel Social History Lives with: Family Smoking Status: Never Smoker Frequency of Alcohol Use: None Hx Recreational Drug Use: No Drugs: None Hx Prescription Drug Abuse: No Family History Parental Family History Reviewed: No Children Family History Reviewed: No Sibling(s) Family History Reviewed.: No Medication/Allergy Home Medications: Albuterol Sulfate [Proair HFA Inhalation Aerosol 8.5 gm MDI] 1 puff IH Q4HP PRN 07/23/18 Atorvastatin Calcium [Lipitor 40 mg Tablet] 40 mg PO QHS 07/23/18 Cetirizine HCl [Zyrtec 10 mg Tablet] 10 mg PO DAILY 07/23/18 Escitalopram Oxalate [Lexapro] 20 mg PO DAILY 07/23/18 Fluticasone Propionate [Flonase Nasal [place] 50 Mcg/[place] 16 gm] 1 spray NASL DAILYP PRN 07/23/18 Furosemide [Lasix 20 mg Tablet] 20 mg PO DAILY 07/23/18 Gabapentin [Neurontin 300 mg Capsule] 300 mg PO Q12 07/23/18 Insulin Glargine,Hum.rec.anlog [Lantus Insulin 100 Unit/1 ml 10 ml] 30 units SQ QPM 07/23/18 Insulin Lispro [Humalog Insulin (Lispro) 100 unit/mL] 15 units SQ MEALS 07/23/18 Lisinopril [Zestril] 20 mg PO DAILY 07/23/18 Mirabegron [Myrbetriq] 50 mg PO DAILY 07/23/18 Multivitamin [Multiple Vitamins] 1 tab PO DAILY 07/23/18 Nitrofurantoin Macrocrystal [Macrodantin] 100 mg PO DAILY 07/23/18 Pantoprazole Sodium [Protonix [address] Tablet] 40 mg PO DAILY 07/23/18 Tramadol HCl [Ultram 50 mg Tablet] 50 mg PO Q12 07/23/18 Allergies/Adverse Reactions: No Known Allergies Allergy (Verified 07/23/18 07:58) Review of Systems Constitutional: PRESENT: fatigue, weakness. ABSENT: fever(s), headache(s), night sweats Nose, Mouth, and Throat: ABSENT: mouth pain, sore throat Cardiovascular: PRESENT: dyspnea on exertion. ABSENT: chest pain, edema, orthropnea Respiratory: PRESENT: cough, dyspnea, sputum. ABSENT: hemoptysis Gastrointestinal: PRESENT: bloating, nausea, vomiting. ABSENT: coffee ground emesis, diarrhea, dysphagia, heartburn, hematemesis, hematochezia Genitourinary: ABSENT: difficulty urinating, dysuria, hematuria Musculoskeletal: ABSENT: deformity, joint swelling Integumentary: ABSENT: lesions, pruritus, rash Neurological: ABSENT: abnormal gait, abnormal speech, confusion, convulsions, focal weakness, frequent falls Psychiatric: ABSENT: anxiety Hematologic/Lymphatic: ABSENT: easy bleeding, easy bruising, lymphadenopathy Physical Exam Vital Signs: Temp Pulse Resp BP Pulse Ox 98.4 F 73 18 125/73 98 07/26/18 12:00 07/26/18 13:53 07/26/18 13:53 07/26/18 12:00 07/26/18 13:53 Intake & Output 07/25/18 07/26/18 07/27/18 06:59 06:59 06:59 Intake Total 1280 888 360 Output Total 550 300 Balance 730 588 360 Weight 125.3 kg 125.1 kg General appearance: PRESENT: no acute distress Eye exam: PRESENT: EOMI, PERRLA Ear exam: PRESENT: normal external ear exam Mouth exam: PRESENT: moist, neck supple Neck exam: ABSENT: lymphadenopathy, meningismus, tenderness, thyromegaly, trache al deviation Respiratory exam: PRESENT: clear to auscultation vadim, crackles - Few and scattered., rhonchi Cardiovascular exam: PRESENT: +S1, +S2. ABSENT: rubs GI/Abdominal exam: PRESENT: normal bowel sounds, soft. ABSENT: organomegaly, tenderness Extremities exam: ABSENT: pedal edema Neurological exam: PRESENT: alert, awake, oriented to person, oriented to place Psychiatric exam: PRESENT: appropriate affect Skin exam: PRESENT: dry. ABSENT: erythema, mottled, rash Results Laboratory Results: 07/22/18 22:50 07/24/18 06:45 07/26/18 10:07 Carbonic Acid 1.55 H HCO3/H2CO3 Ratio 17:1 ABG pH 7.33 L ABG pCO2 51.6 H ABG pO2 129.5 H ABG HCO3 26.7 H ABG O2 Saturation 98.3 H ABG Base Excess 0.1 FiO2 4L 07/22/18 07/23/18 22:50 05:33 Troponin I 0.042 0.040 Impressions: Abdomen/Pelvis CT 07/23/18 04:25 IMPRESSION: No bowel obstruction. Moderate pericardial effusion. Chest X-Ray 07/24/18 00:00 IMPRESSION: Cardiomegaly. Atelectasis or early pneumonia left lower lobe. Assessment & Plan - Diagnosis (1) Acute renal insufficiency Plan: Baseline creatinine is around 1.4. Current creatinine is 2.6 as of yesterday. No labs from today and will order one for tomorrow. She had severe hypokalemia with on presentation of 2.9 which is corrected now to 4.5 as of yesterday. She is nonoliguric. CT scan done during this admission showed no hydronephrosis. Echocardiogram showed near normal LV ejection fraction but was unable to quantify right ventricular function because of anatomical features.She most likely has ATN from pneumonia and sepsis. Continue current management. Avoid hypotension and nephrotoxic drugs. Clinically she is dry and I am going to stop the Lasix for now. Reintroduce at the appropriate time in the future. Dose medications to GFR of approximately 25 cc/min. Advised tight blood sugar control. (2) Acute respiratory failure with hypoxia and hypercapnia Is this a current diagnosis for this admission?: Yes Plan: Initial CBG on presentation as shown that she was CO2 retaining. Is quite suggestive that she likely has pulmonary hypertension from both her obesity as well as untreated sleep apnea. However echocardiogram could not get a definitive window for studying her right ventricle. (3) Hypertension Qualifiers: Hypertension type: essential hypertension Qualified Code(s): I10 - Essential (primary) hypertension Is this a current diagnosis for this admission?: Yes Plan: Controlled. (4) Hypokalemia Plan: And magnesium on presentation was 1.6. Her CO2 was 30 on presentation. Initially she presented with prolonged nausea and vomiting, which is now corrected. We will recheck Mg. (5) Left lower lobe pneumonia Is this a current diagnosis for this admission?: Yes (6) Morbid obesity with BMI of 45.0-49.9, adult Is this a current diagnosis for this admission?: Yes Plan: Status quo. (7) Obstructive sleep apnea Is this a current diagnosis for this admission?: Yes Plan: Not using CPAP because apparently it does not fit her properly. (8) Type 2 diabetes mellitus Is this a current diagnosis for this admission?: Yes Plan: Unfortunately poorly controlled. Discussed the long-term multiorgan consequences.
[2018-07-26] MEDS: INSULIN GLARGINE,HUM.REC.ANLOG 1,000 UNIT/10 ML VIAL SUBCUT SCH (21:50)
[2018-07-26] MEDS: ATORVASTATIN CALCIUM 40 MG TABLET PO SCH (21:50)
[2018-07-27] MEDS: IPRATROPIUM/ALBUTEROL 0.5-2.5 MG/3 ML AMPUL NEB SCH ×4 (02:29→19:15)
[2018-07-27 04:04] LABS: ANION GAP 10 (5-19); BLOOD UREA NITROGEN 69 mg/dL (7-20); CALCIUM 8.3 mg/dL (8.4-10.2); CARBON DIOXIDE 25 mmol/L (22-30); CHLORIDE 101 mmol/L (98-107); GLUCOSE 310 mg/dL (75-110); POTASSIUM 4.6 mmol/L (3.6-5.0); SODIUM 135.7 mmol/L (137-145)
[2018-07-27] MEDS: HEPARIN SOD (PORCINE) 5,000 UNIT/ML 1 ML SYRINGE SUBCUT SCH ×3 (05:21→22:28)
[2018-07-27] MEDS: METHYLPREDNISOLONE INJ 40 MG/1 ML SDV IV SCH ×3 (05:22→22:28)
[2018-07-27] MEDS: INSULIN LISPRO 100 UNIT/ML 3 ML VIAL SUBCUT SCH ×7 (08:10→22:28)
[2018-07-27] MEDS: LEVOFLOXACIN 750 MG/D5W RTU 750 MG/150 ML RTUPB IV SCH (09:57)
[2018-07-27] MEDS: ESCITALOPRAM OXALATE 10 MG TABLET PO SCH (09:58)
[2018-07-27] MEDS: DOCUSATE SODIUM 100 MG CAPSULE PO SCH ×2 (09:58→17:23)
[2018-07-27] MEDS: AMLODIPINE BESYLATE 10 MG TABLET PO SCH (09:59)
[2018-07-27] MEDS: LISINOPRIL 10 MG TABLET PO SCH (09:59)
[2018-07-27] MEDS: TRAMADOL HCL 50 MG TABLET PO SCH ×2 (09:59→22:29)
[2018-07-27] MEDS: CETIRIZINE 10 MG TABLET PO SCH (09:59)
[2018-07-27] MEDS: GABAPENTIN 300 MG CAPSULE PO SCH ×2 (10:00→22:29)
[2018-07-27] MEDS: MULTIVITAMIN TABLET PO SCH (10:00)
[2018-07-27] MEDS: METOPROLOL TARTRATE 50 MG TABLET PO SCH ×2 (10:00→22:29)
[2018-07-27] MEDS: GUAIFENESIN 600 MG TABLET.SA PO SCH ×2 (10:00→22:29)
--- NOTE | 2018-07-27 13:39 | PDOC H&P ---
History of Present Illness Admission Date/PCP: ANNIE ROSA MD History of Present Illness: FINA HERNÁNDEZ is a 63 year old female patient with past medical history of coronary artery disease, CHF, hypertension, hyperlipidemia, depression, type 2 diabetes mellitus, morbid obesity, stage III CKD and obstructive sleep apnea presented with 2 weeks history of intermittent nausea vomiting in the right upper quadrant pain. Patient denies any chills fever, cough, chest pain palpitation or diaphoresis. Patient points the pain to her right upper quadrant. She has mild right upper quadrant tenderness on palpation. Her gallbladder had to be removed surgically. Her CT scan of abdomen and pelvis is unremarkable. And her chest x-ray reported as cardiomegaly without focal consolidation. Her blood work shows hypokalemia with potassium of 2.9, creatinine of 2.33 and GFR of 22. Patient has underlying stage III CKD. Past Medical History Cardiac Medical History: Reports: Coronary Artery Disease - high chol, Hyperlipidema, Hypertension Denies: Myocardial Infarction Pulmonary Medical History: Reports: Sleep Apnea - Not using CPAP at home Denies: Asthma, Bronchitis, Chronic Obstructive Pulmonary Disease (COPD), Pneumonia Neurological Medical History: Denies: Seizures Endocrine Medical History: Reports: Diabetes Mellitus Type 2 Musculoskeltal Medical History: Reports: Arthritis Psychiatric Medical History: Reports: Depression Hematology: Reports: Anemia Past Surgical History Past Surgical History: Reports: Cholecystectomy - Gallbladder Sx, Tonsillectomy, Tubal Ligation, Other - Carpal tunnel Social History Lives with: Alone Smoking Status: Never Smoker Frequency of Alcohol Use: None Hx Recreational Drug Use: No Drugs: None Hx Prescription Drug Abuse: No - Advance Directive Resuscitation Status: Full Code Family History Family History: Reviewed & Not Pertinent Parental Family History Reviewed: Yes Children Family History Reviewed: Yes Sibling(s) Family History Reviewed.: Yes Medication/Allergy Home Medications: Albuterol Sulfate [Proair HFA Inhalation Aerosol 8.5 gm MDI] 1 puff IH Q4HP PRN 07/23/18 Atorvastatin Calcium [Lipitor 40 mg Tablet] 40 mg PO QHS 07/23/18 Cetirizine HCl [Zyrtec 10 mg Tablet] 10 mg PO DAILY 07/23/18 Escitalopram Oxalate [Lexapro] 20 mg PO DAILY 07/23/18 Fluticasone Propionate [Flonase Nasal [place] 50 Mcg/[place] 16 gm] 1 spray NASL DAILYP PRN 07/23/18 Furosemide [Lasix 20 mg Tablet] 20 mg PO DAILY 07/23/18 Gabapentin [Neurontin 300 mg Capsule] 300 mg PO Q12 07/23/18 Insulin Glargine,Hum.rec.anlog [Lantus Insulin 100 Unit/1 ml 10 ml] 30 units SQ QPM 07/23/18 Insulin Lispro [Humalog Insulin (Lispro) 100 unit/mL] 15 units SQ MEALS 07/23/18 Lisinopril [Zestril] 20 mg PO DAILY 07/23/18 Mirabegron [Myrbetriq] 50 mg PO DAILY 07/23/18 Multivitamin [Multiple Vitamins] 1 tab PO DAILY 07/23/18 Nitrofurantoin Macrocrystal [Macrodantin] 100 mg PO DAILY 07/23/18 Pantoprazole Sodium [Protonix [address] Tablet] 40 mg PO DAILY 07/23/18 Tramadol HCl [Ultram 50 mg Tablet] 50 mg PO Q12 07/23/18 Allergies/Adverse Reactions: No Known Allergies Allergy (Verified 07/23/18 07:58) Review of Systems Constitutional: ABSENT: chills, fever(s), headache(s), weight gain, weight loss Eyes: ABSENT: visual disturbances Ears: ABSENT: hearing changes Cardiovascular: ABSENT: chest pain, dyspnea on exertion, edema, orthropnea, palpitations Respiratory: ABSENT: cough, hemoptysis Gastrointestinal: PRESENT: abdominal pain, nausea, vomiting Genitourinary: ABSENT: dysuria, hematuria Musculoskeletal: ABSENT: joint swelling Integumentary: ABSENT: rash, wounds Neurological: ABSENT: abnormal gait, abnormal speech, confusion, dizziness, fo rick weakness, syncope Psychiatric: ABSENT: anxiety, depression, homidical ideation, suicidal ideation Endocrine: ABSENT: cold intolerance, heat intolerance, polydipsia, polyuria Hematologic/Lymphatic: ABSENT: easy bleeding, easy bruising Physical Exam Vital Signs: Temp Pulse Resp BP Pulse Ox 98.9 F 79 18 141/63 H 93 05/06/18 19:33 05/06/18 19:33 05/06/18 19:33 05/06/18 19:33 05/06/18 19:33 General appearance: PRESENT: no acute distress Head exam: PRESENT: atraumatic Eye exam: PRESENT: conjunctiva pink Neck exam: ABSENT: carotid bruit, JVD, lymphadenopathy, thyromegaly Respiratory exam: PRESENT: clear to auscultation vadim. ABSENT: rales, rhonchi, wheezes Cardiovascular exam: PRESENT: RRR. ABSENT: diastolic murmur, rubs, systolic murmur GI/Abdominal exam: PRESENT: tenderness Extremities exam: PRESENT: +2 edema Neurological exam: PRESENT: alert, awake, oriented to time Results Laboratory Results: 05/06/18 16:47 05/06/18 16:47 Assessment and Plan - Diagnosis (1) Intractable nausea and vomiting Qualifiers: Qualifiers: unspecified Qualifiers: [id number] Qualifiers: [id number] Is this a current diagnosis for this admission?: Yes Plan: Etiology is unclear. I will cautiously hydrate her and put her on antiemetic. (2) Hypokalemia Is this a current diagnosis for this admission?: Yes Plan: Most probably related to her vomiting. We will replete and check her potassium in the morning. (3) Diastolic CHF Qualifiers: Qualifiers: chronic Qualifiers: [id number] Qualifiers: [id number] Is this a current diagnosis for this admission?: Yes Plan: Her echocardiogram done on January 2018 reported as ejection fraction of 60%. Patient does not complain of shortness of breath. I will continue her cardiac medications. (4) Type 2 diabetes mellitus Is this a current diagnosis for this admission?: Yes Plan: I will continue her home medication and put her on sliding scale. (5) Stage III chronic kidney disease Is this a current diagnosis for this admission?: Yes Plan: Her creatinine is variable over the last 3 to years ranging between 1.3 and 2.35. I will hydrate her gently and avoid nephrotoxic agents. Patient needs outpatient follow-up with [facility] shred[facility]. (6) Hypertension Qualifiers: Qualifiers: essential hypertension Qualifiers: [id number] Qualifiers: [id number] Is this a current diagnosis for this admission?: Yes Plan: I will review her home medication and adjusted appropriately. (7) Hyperlipidemia Qualifiers: Qualifiers: unspecified Qualifiers: [id number] Qualifiers: [id number] Is this a current diagnosis for this admission?: Yes Plan: I will check her lipid panel and adjust appropriately her statin. (8) Depression Is this a current diagnosis for this admission?: Yes Plan: Patient has dry and coarse skin texture. I will check her TSH level. In the meantime I will continue her antid epressants. (9) Morbid obesity with BMI of 45.0-49.9, adult Is this a current diagnosis for this admission?: Yes Plan: Patient encouraged to have
[2018-07-27] MEDS ORDERED: ACETAMINOPHEN 325 MG TABLET PO PRN (13:58)
--- NOTE | 2018-07-27 16:51 | PDOC PROGRESS REPORT ---
Subjective Progress Note for:: 07/27/18 Subjective:: Patient said that she is feeling better today. Her cough is also improving. Is making urine but it is not all quantified. She continues to receive antibiotics. Reason For Visit: PNEUMONIA Physical Exam Vital Signs: Temp Pulse Resp BP Pulse Ox 97.8 F 70 17 146/64 H 98 07/27/18 11:19 07/27/18 14:01 07/27/18 14:01 07/27/18 11:19 07/27/18 14:01 Intake & Output 07/26/18 07/27/18 07/28/18 06:59 06:59 06:59 Intake Total 888 1950 Output Total 300 Balance 588 1950 Weight 125.1 kg 126.3 kg Exam: General appearance: PRESENT: no acute distress, cooperative, well-developed, well-nourished Head exam: PRESENT: atraumatic, normocephalic Eye exam: PRESENT: conjunctiva pink, PERRLA. ABSENT: scleral icterus Neck exam: ABSENT: JVD Respiratory exam: PRESENT: Normal breath sounds. ABSENT: crackles, rales, rhonchi, unlabored, wheezes Cardiovascular exam: PRESENT: Regular rate rhythm -+S1, +S2. ABSENT: diastolic murmur, systolic murmur GI/Abdominal exam: PRESENT: normal bowel sounds, soft. ABSENT: guarding, mass, tenderness Extremities exam: ABSENT: No edema Neurological exam: PRESENT: alert, awake, oriented to person, place and time. Skin exam: PRESENT: dry, warm, Cardiovascular exam: PRESENT: +S1, +S2. ABSENT: rubs GI/Abdominal exam: PRESENT: normal bowel sounds, soft. ABSENT: organomegaly, tenderness Results Laboratory Results: 07/22/18 22:50 07/27/18 03:24 07/27/18 03:24 Sodium 135.7 L Potassium 4.6 Chloride 101 Carbon Dioxide 25 Anion Gap 10 BUN 69 H Creatinine 2.97 H Est GFR ( Amer) 19 L Est GFR (Non-Af Amer) 16 L Glucose 310 H Calcium 8.3 L Magnesium 1.6 07/22/18 07/23/18 22:50 05:33 Troponin I 0.042 0.040 Impressions: Abdomen/Pelvis CT 07/23/18 04:25 IMPRESSION: No bowel obstruction. Moderate pericardial effusion. Chest X-Ray 07/24/18 00:00 IMPRESSION: Cardiomegaly. Atelectasis or early pneumonia left lower lobe. Assessment & Plan - Diagnosis (1) Acute kidney injury superimposed on chronic kidney disease Is this a current diagnosis for this admission?: Yes Plan: Patient is nonoliguric but exact urine output is not being quantified. Her worsening kidney function is most likely secondary to ATN due to current in fectious process with left lower lobe pneumonia and possibly some volume depletion. Lasix was discontinued yesterday. I think she needs a little bit of IV fluids so I will start her on some IV fluid hydration today. Continue to monitor kidney function as currently it still slowly worsening. However no need of renal replacement therapy at this time. Need to monitor intake and output and accurately recorded. (2) Left lower lobe pneumonia Is this a current diagnosis for this admission?: Yes Plan: Currently on IV Levaquin. (3) Acute respiratory failure with hypoxia and hypercapnia Is this a current diagnosis for this admission?: Yes Plan: Clinically improving. (4) Hypertension Qualifiers: Hypertension type: essential hypertension Qualified Code(s): I10 - Essential (primary) hypertension Is this a current diagnosis for this admission?: Yes (5) Obstructive sleep apnea Is this a current diagnosis for this admission?: Yes (6) Type 2 diabetes mellitus Is this a current diagnosis for this admission?: Yes - Time Time with patient: 15-25 minutes
--- NOTE | 2018-07-27 21:50 | PDOC PROGRESS REPORT ---
Subjective Progress Note for:: 07/27/18 Subjective:: This is 63 years old female patient with multiple comorbidities including morbid obesity, coronary 30s, diastolic CHF, hypertension, hyperlipidemia, obstructive sleep apnea, stage III CKD and type 2 diabetes mellitus presented with complaint 2 weeks duration of nausea and vomiting associated with right upper quadrant pain. She is admitted to the hospitalist service for LLL PNA and acute on chronic kidney disease. The patient was able to ambulate in the hallway today while on 3L NC, she normally wears 2L at home. LCTA. No peripheral or central cyanosis. The patient states she would like 1 more day in the hospital. States she became 'nervous' when she became so short of breath while walking. Awaiting nephrology recommendations. Creatinine increased from 2.7-->2.9 Reason For Visit: PNEUMONIA Physical Exam Vital Signs: Temp Pulse Resp BP Pulse Ox 97.3 F 73 18 127/55 H 96 07/27/18 15:26 07/27/18 19:15 07/27/18 19:15 07/27/18 15:26 07/27/18 19:15 Intake & Output 07/26/18 07/27/18 07/28/18 06:59 06:59 06:59 Intake Total 888 1950 337 Output Total 300 Balance 588 1950 337 Weight 125.1 kg 126.3 kg General appearance: PRESENT: no acute distress, morbidly obese Head exam: PRESENT: atraumatic, normocephalic Eye exam: PRESENT: conjunctiva pink, EOMI, PERRLA. ABSENT: scleral icterus Ear exam: PRESENT: normal external ear exam Mouth exam: PRESENT: moist, tongue midline Neck exam: ABSENT: carotid bruit, JVD, lymphadenopathy, thyromegaly Respiratory exam: PRESENT: clear to auscultation vadim, symmetrical, unlabored. ABSENT: rales, rhonchi, wheezes Cardiovascular exam: PRESENT: RRR. ABSENT: diastolic murmur, rubs, systolic murmur Pulses: PRESENT: normal radial pulses, normal dorsalis pedis pul Vascular exam: PRESENT: pallor GI/Abdominal exam: PRESENT: normal bowel sounds, soft. ABSENT: distended, guarding, mass, organolmegaly, rebound, tenderness Rectal exam: PRESENT: deferred Extremities exam: PRESENT: full ROM. ABSENT: calf tenderness, clubbing, pedal edema Musculoskeletal exam: PRESENT: ambulatory - with a walker, full ROM Neurological exam: PRESENT: alert, awake, oriented to person, oriented to place, oriented to time, oriented to situation Psychiatric exam: PRESENT: appropriate affect, normal mood Skin exam: PRESENT: dry, intact, warm. ABSENT: cyanosis, rash Results Laboratory Results: 07/22/18 22:50 07/27/18 03:24 07/27/18 03:24 Sodium 135.7 L Potassium 4.6 Chloride 101 Carbon Dioxide 25 Anion Gap 10 BUN 69 H Creatinine 2.97 H Est GFR ( Amer) 19 L Est GFR (Non-Af Amer) 16 L Glucose 310 H Calcium 8.3 L Magnesium 1.6 07/22/18 07/23/18 22:50 05:33 Troponin I 0.042 0.040 Impressions: Abdomen/Pelvis CT 07/23/18 04:25 IMPRESSION: No bowel obstruction. Moderate pericardial effusion. Chest X-Ray 07/24/18 00:00 IMPRESSION: Cardiomegaly. Atelectasis or early pneumonia left lower lobe. Status: Imported from PACS Assessment and Plan - Diagnosis (1) Acute respiratory failure with hypoxia and hypercapnia Is this a current diagnosis for this admission?: Yes Plan: Secondary to PNA and COPD Originally on BIPAP now weaned to NC Continue scheduled nebulizer treatments, steroids and antibiotics Patient denies smoking history. 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 She normally wears 2L NC at home. (2) Intractable nausea and vomiting Qualifiers: Vomiting type: unspecified Qualified Code(s): R11.2 - Nausea with vomiting, unspecified Is this a current diagnosis for this admission?: Yes Plan: Resolved Tolerating PO diet (3) Hypertension Qualifiers: Hypertension type: essential hypertension Qualified Code(s): I10 - Essential (primary) hypertension Is this a current diagnosis for this admission?: Yes Plan: PMH HTN Currently controlled on lisinopril and metoprolol and amlodipine (4) Hypokalemia Is this a current diagnosis for this admission?: Yes Plan: RESOLVED (5) Hyperlipidemia Qualifiers: Hyperlipidemia type: unspecified Qualified Code(s): E78.5 - Hyperlipidemia, unspecified Is this a current diagnosis for this admission?: Yes Plan: PMH HLD Continue home dose statin (6) Morbid obesity with BMI of 45.0-49.9, adult Is this a current diagnosis for this admission?: Yes Plan: Weight management with diet control only at this time. (7) Obstructive sleep apnea Is this a current diagnosis for this admission?: Yes Plan: Patient is morbidly obese Continue home CPAP QHS (8) Coronary artery disease Qualifiers: Coronary Disease-Associated Artery/Lesion type: cachil dehe artery Is this a current diagnosis for this admission?: Yes Plan: No anginal symptoms. Continue home dose statin and low dose aspirin (9) Stage III chronic kidney disease Is this a current diagnosis for this admission?: Yes Plan: Ptient is nonoliguric Dr. Ramirez consulted, believes the patient's worsening creatinine is related to sepsis No plan for HD avoid nephrotoxic agents (10) Diastolic CHF Qualifiers: Heart failure chronicity: chronic Qualified Code(s): I50.32 - Chronic diastolic (congestive) heart failure Is this a current diagnosis for this admission?: Yes Plan: No recent echocardiogram Self-reported CHF continue home dose statin, lisinopril, amlodipine, and metoprolol (11) Left lower lobe pneumonia Is this a current diagnosis for this admission?: Yes Plan: Seen on CXR Treated with Levaquin - appropriate coverage for severe COPD exacerbation requiring inpatient hospitalization - Time Time Spent with patient: 15-24 minutes Medications reviewed and adjusted accordingly: Yes Anticipated discharge: Home with Homehealth Within: within 24 hours - Inpatient Certification Based on my medical assessment, after consideration of the patient's comorbidities, presenting symptoms, or acuity I expect that the services needed warrant INPATIENT care.: Yes I certify that my determination is in accordance with my understanding of Medicare's requirements for reasonable and necessary INPATIENT services [42 CFR 412.3e].: Yes Medical Necessity: Need for IV Antibiotics, Risk of Complication if Not Cared For in Hospital
[2018-07-27] MEDS: INSULIN GLARGINE,HUM.REC.ANLOG 1,000 UNIT/10 ML VIAL SUBCUT SCH (22:27)
[2018-07-27] MEDS: ATORVASTATIN CALCIUM 40 MG TABLET PO SCH (22:29)
[2018-07-28] MEDS: IPRATROPIUM/ALBUTEROL 0.5-2.5 MG/3 ML AMPUL NEB SCH ×4 (02:25→21:29)
[2018-07-28] MEDS: HEPARIN SOD (PORCINE) 5,000 UNIT/ML 1 ML SYRINGE SUBCUT SCH ×3 (05:47→22:00)
[2018-07-28] MEDS: METHYLPREDNISOLONE INJ 40 MG/1 ML SDV IV SCH ×3 (05:48→21:59)
[2018-07-28 08:12] LABS: ANION GAP 10 (5-19); BLOOD UREA NITROGEN 75 mg/dL (7-20); CALCIUM 8.4 mg/dL (8.4-10.2); CARBON DIOXIDE 26 mmol/L (22-30); CHLORIDE 101 mmol/L (98-107); GLUCOSE 325 mg/dL (75-110); PHOSPHORUS 4.2 mg/dL (2.5-4.5); POTASSIUM 4.6 mmol/L (3.6-5.0); SODIUM 136.6 mmol/L (137-145)
[2018-07-28] MEDS: INSULIN LISPRO 100 UNIT/ML 3 ML VIAL SUBCUT SCH ×7 (08:19→22:00)
--- NOTE | 2018-07-28 09:37 | PDOC PROGRESS REPORT ---
Subjective Progress Note for:: 07/28/18 Subjective:: Patient continues to improve clinically every day. She is not coughing as much. She said she was able to drink about 1.5 L yesterday as recommended by me. I also ordered some IV fluids yesterday but unfortunately the order was not implemented by her nurse yesterday. Her intake and output has also not being quantified until now. Reason For Visit: PNEUMONIA Physical Exam Vital Signs: Temp Pulse Resp BP Pulse Ox 97.7 F 64 14 121/57 L 96 07/27/18 20:00 07/28/18 08:48 07/28/18 08:48 07/27/18 20:00 07/28/18 08:48 Intake & Output 07/27/18 07/28/18 07/29/18 06:59 06:59 06:59 Intake Total 1950 1197 Balance 1950 1197 Weight 126.3 kg 128.3 kg Exam: General appearance: PRESENT: no acute distress, cooperative, well-developed, well-nourished Head exam: PRESENT: atraumatic, normocephalic Eye exam: PRESENT: conjunctiva slightly pale, PERRLA. ABSENT: scleral icterus Neck exam: ABSENT: JVD Respiratory exam: PRESENT: Normal breath sounds. ABSENT: crackles, rales, rhonchi, unlabored, wheezes Cardiovascular exam: PRESENT: Regular rate rhythm -+S1, +S2. ABSENT: diastolic murmur, systolic murmur GI/Abdominal exam: PRESENT: normal bowel sounds, soft. ABSENT: guarding, mass, tenderness Extremities exam: ABSENT: No edema Neurological exam: PRESENT: alert, awake, oriented to person, place and time. Skin exam: PRESENT: dry, warm, Cardiovascular exam: PRESENT: +S1, +S2. ABSENT: rubs GI/Abdominal exam: PRESENT: normal bowel sounds, soft. ABSENT: organomegaly, tenderness Results Laboratory Results: 07/22/18 22:50 07/28/18 06:35 07/28/18 06:35 Sodium 136.6 L Potassium 4.6 Chloride 101 Carbon Dioxide 26 Anion Gap 10 BUN 75 H Creatinine 2.62 H Est GFR ( Amer) 22 L Est GFR (Non-Af Amer) 18 L Glucose 325 H Calcium 8.4 Phosphorus 4.2 Magnesium 1.7 07/22/18 07/23/18 22:50 05:33 Troponin I 0.042 0.040 Impressions: Abdomen/Pelvis CT 07/23/18 04:25 IMPRESSION: No bowel obstruction. Moderate pericardial effusion. Chest X-Ray 07/24/18 00:00 IMPRESSION: Cardiomegaly. Atelectasis or early pneumonia left lower lobe. Assessment & Plan - Diagnosis (1) Acute kidney injury superimposed on chronic kidney disease Is this a current diagnosis for this admission?: Yes Plan: Patient is nonoliguric but exact urine output is not being quantified. Her worsening kidney function is most likely secondary to ATN due to current infectious process with left lower lobe pneumonia and possibly some volume depletion. Lasix was discontinued yesterday. I think she needs a little bit of IV fluids so I will start her on some IV fluid hydration today. Kidney function show some improvement today. Continue to monitor kidney function . However no need of renal replacement therapy at this time. Need to monitor intake and output and accurately recorded. (2) Left lower lobe pneumonia Is this a current diagnosis for this admission?: Yes Plan: Currently on IV Levaquin. (3) Acute respiratory failure with hypoxia and hypercapnia Is this a current diagnosis for this admission?: Yes Plan: Clinically improving. (4) Hypertension Qualifiers: Hypertension type: essential hypertension Qualified Code(s): I10 - Essential (primary) hypertension Is this a current diagnosis for this admission?: Yes (5) Obstructive sleep apnea Is this a current diagnosis for this admission?: Yes (6) Type 2 diabetes mellitus Is this a current diagnosis for this admission?: Yes - Notes Notes: I personally spoke to the nurse and the [employer] ATTEND[employer] to make sure that orders are being done. They will start the IV fluids and attempt to monitor and quantify and record urine output today. - Time Time with patient: 15-25 minutes
[2018-07-28] MEDS: MULTIVITAMIN TABLET PO SCH (09:38)
[2018-07-28] MEDS: TRAMADOL HCL 50 MG TABLET PO SCH ×2 (09:38→22:02)
[2018-07-28] MEDS: GABAPENTIN 300 MG CAPSULE PO SCH ×2 (09:38→22:02)
[2018-07-28] MEDS: GUAIFENESIN 600 MG TABLET.SA PO SCH ×2 (09:38→22:02)
[2018-07-28] MEDS: LEVOFLOXACIN 500 MG TABLET PO SCH (09:38)
[2018-07-28] MEDS: AMLODIPINE BESYLATE 10 MG TABLET PO SCH (09:38)
[2018-07-28] MEDS: DOCUSATE SODIUM 100 MG CAPSULE PO SCH ×2 (09:38→17:10)
[2018-07-28] MEDS: CETIRIZINE 5 MG TABLET PO SCH (09:39)
[2018-07-28] MEDS: LISINOPRIL 10 MG TABLET PO SCH (09:39)
[2018-07-28] MEDS: METOPROLOL TARTRATE 50 MG TABLET PO SCH ×2 (09:39→22:02)
[2018-07-28] MEDS: INSULIN GLARGINE,HUM.REC.ANLOG 1,000 UNIT/10 ML VIAL SUBCUT SCH ×2 (09:40→22:02)
[2018-07-28] MEDS: ESCITALOPRAM OXALATE 10 MG TABLET PO SCH (09:40)
[2018-07-28] MEDS: NORMAL SALINE 1000 ML 1,000 ML IV PRN (15:21)
--- NOTE | 2018-07-28 18:34 | RADIOLOGY REPORT (SQ) ---
EXAM DESCRIPTION: CT HEAD WITHOUT COMPLETED DATE/TIME: 07/28/2018 6:24 pm REASON FOR STUDY: fall COMPARISON: None. TECHNIQUE: Axial images acquired through the brain without intravenous contrast. Images reviewed wi th bone, brain and subdural windows. Additional sagittal and coronal reconstructions were generated. Images stored on PACS. All CT scanners at this facility use dose modulation, iterative reconstruction, and/or weight based d osing when appropriate to reduce radiation dose to as low as reasonably achievable (ALARA). [facility]: Dose Right [facility]: CareDose [facility]: Dose Right [facility]: Teradose 4D [facility]: [employer] RADIATION DOSE: CT Rad equipment meets quality standard of care and radiation dose reduction techniq ues were employed. CTDIvol: 53.2 mGy. DLP: 964 mGy-cm. mGy. LIMITATIONS: None. FINDINGS: VENTRICLES: Normal size and contour. CEREBRUM: No masses. No hemorrhage. No midline shift. No evidence for acute infarction. Normal gra y/white matter differentiation. No areas of low density in the white matter. CEREBELLUM: No masses. No hemorrhage. No alteration of density. No evidence for acute infarction. EXTRAAXIAL SPACES: No fluid collections. No masses. ORBITS AND GLOBE: No intra- or extraconal masses. Normal contour of globe without masses. CALVARIUM: No fracture. PARANASAL SINUSES: No fluid or mucosal thickening. SOFT TISSUES: No mass or hematoma. OTHER: No other significant finding. IMPRESSION: NORMAL BRAIN CT WITHOUT CONTRAST. EVIDENCE OF ACUTE STROKE: NO. COMMENT: Quality ID # [id number]: Final reports with documentation of one or more dose reduction techniques (e.g., Automated exposure control, adjustment of the mA and/or kV according to patient size, use of iterative reconstruction technique) TECHNICAL DOCUMENTATION: JOB ID: [id number] 1923 [email or web address]- All Rights Reserved Reading location - IP/workstation name: [email or web address]
[2018-07-28] MEDS: ATORVASTATIN CALCIUM 40 MG TABLET PO SCH (22:03)
--- NOTE | 2018-07-28 22:21 | PDOC PROGRESS REPORT ---
Subjective Progress Note for:: 07/28/18 Subjective:: This is 63 years old female patient with multiple comorbidities including morbid obesity, coronary 30s, diastolic CHF, hypertension, hyperlipidemia, obstructive sleep apnea, stage III CKD and type 2 diabetes mellitus presented with complaint 2 weeks duration of nausea and vomiting associated with right upper quadrant pain. She is admitted to the hospitalist service for LLL PNA and acute on chronic kidney disease. The patient appears clinically well today. LCTA. No peripheral or central cyanosis. She appears euvolemic. Dr. Ramirez is following the patient, would like her to receive IVF for her renal function prior to discharge. At 1730, was walking by the room and the patient was noted to be supine on the floor. She patient was awake, able to tell me that she was attempting to go from the bathroom to the bed when she fell to the ground. The patient denies LOC or head trauma. When nursing staff got the patient back to bed, she complained of dizziness. Obtained head CT, which was normal. Reason For Visit: PNEUMONIA Physical Exam Vital Signs: Temp Pulse Resp BP Pulse Ox 98.1 F 67 18 141/67 H 98 07/28/18 19:46 07/28/18 21:29 07/28/18 21:29 07/28/18 19:46 07/28/18 21:29 Intake & Output 07/27/18 07/28/18 07/29/18 06:59 06:59 06:59 Intake Total 1950 1197 597 Output Total 600 Balance 1950 1197 -3 Weight 126.3 kg 128.3 kg General appearance: PRESENT: no acute distress, morbidly obese Head exam: PRESENT: atraumatic, normocephalic Eye exam: PRESENT: conjunctiva pink, EOMI, PERRLA. ABSENT: scleral icterus Ear exam: PRESENT: normal external ear exam Mouth exam: PRESENT: moist, tongue midline Teeth exam: PRESENT: poor dentation Neck exam: ABSENT: carotid bruit, JVD, lymphadenopathy, thyromegaly Respiratory exam: PRESENT: clear to auscultation vadim, decreased breath sounds - b/l lower lobes, symmetrical, unlabored. ABSENT: rales, rhonchi, wheezes Cardiovascular exam: PRESENT: RRR. ABSENT: diastolic murmur, rubs, systolic murmur Pulses: PRESENT: normal radial pulses, normal dorsalis pedis pul Vascular exam: PRESENT: normal capillary refill GI/Abdominal exam: PRESENT: normal bowel sounds, soft. ABSENT: distended, guarding, mass, organolmegaly, rebound, tenderness Rectal exam: PRESENT: deferred Extremities exam: PRESENT: full ROM. ABSENT: calf tenderness, clubbing, pedal edema Neurological exam: PRESENT: alert, awake, oriented to person, oriented to place, oriented to time, oriented to situation Psychiatric exam: PRESENT: appropriate affect, normal mood Skin exam: PRESENT: dry, intact, warm. ABSENT: cyanosis, rash Results Laboratory Results: 07/22/18 22:50 07/28/18 06:35 07/28/18 06:35 Sodium 136.6 L Potassium 4.6 Chloride 101 Carbon Dioxide 26 Anion Gap 10 BUN 75 H Creatinine 2.62 H Est GFR ( Amer) 22 L Est GFR (Non-Af Amer) 18 L Glucose 325 H Calcium 8.4 Phosphorus 4.2 Magnesium 1.7 07/22/18 07/23/18 22:50 05:33 Troponin I 0.042 0.040 Impressions: Abdomen/Pelvis CT 07/23/18 04:25 IMPRESSION: No bowel obstruction. Moderate pericardial effusion. Chest X-Ray 07/24/18 00:00 IMPRESSION: Cardiomegaly. Atelectasis or early pneumonia left lower lobe. Head CT 07/28/18 00:00 IMPRESSION: NORMAL BRAIN CT WITHOUT CONTRAST. EVIDENCE OF ACUTE STROKE: NO. Status: Imported from PACS Assessment and Plan - Diagnosis (1) Acute respiratory failure with hypoxia and hypercapnia Is this a current diagnosis for this admission?: Yes Plan: Secondary to PNA and COPD Originally on BIPAP now weaned to NC Continue scheduled nebulizer treatments, steroids and antibiotics Patient denies smoking history. 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 She normally wears 2L NC at home. (2) Intractable nausea and vomiting Qualifiers: Vomiting type: unspecified Qualified Code(s): R11.2 - Nausea with vomiting, unspecified Is this a current diagnosis for this admission?: Yes Plan: Resolved Tolerating PO diet (3) Hypertension Qualifiers: Hypertension type: essential hypertension Qualified Code(s): I10 - Essential (primary) hypertension Is this a current diagnosis for this admission?: Yes Plan: PMH HTN Currently controlled on lisinopril and metoprolol and amlodipine (4) Hypokalemia Is this a current diagnosis for this admission?: Yes Plan: RESOLVED (5) Hyperlipidemia Qualifiers: Hyperlipidemia type: unspecified Qualified Code(s): E78.5 - Hyperlipidemia, unspecified Is this a current diagnosis for this admission?: Yes Plan: PMH HLD Continue home dose statin (6) Morbid obesity with BMI of 45.0-49.9, adult Is this a current diagnosis for this admission?: Yes Plan: Weight management with diet control only at this time. (7) Obstructive sleep apnea Is this a current diagnosis for this admission?: Yes Plan: Patient is morbidly obese Continue home CPAP QHS (8) Coronary artery disease Qualifiers: Coronary Disease-Associated Artery/Lesion type: [place] artery Is this a current diagnosis for this admission?: Yes Plan: No anginal symptoms. Continue home dose statin and low dose aspirin (9) Stage III chronic kidney disease Is this a current diagnosis for this admission?: Yes Plan: Patient is nonoliguric Dr. Ramirez consulted, believes the patient's worsening creatinine is related to sepsis No plan for HD avoid nephrotoxic agents Infuse IVF today, will re-evaluate chemistry tomorrow (10) Diastolic CHF Qualifiers: Heart failure chronicity: chronic Qualified Code(s): I50.32 - Chronic diastolic (congestive) heart failure Is this a current diagnosis for this admission?: Yes Plan: No recent echocardiogram Self-reported CHF continue home dose statin, lisinopril, amlodipine, and metoprolol (11) Left lower lobe pneumonia Is this a current diagnosis for this admission?: Yes Plan: Seen on CXR Treated with Levaquin - appropriate coverage for severe COPD exacerbation requiring inpatient hospitalization - Time Time Spent with patient: 15-24 minutes Medications reviewed and adjusted accordingly: Yes Anticipated discharge: Home, Home with Homehealth Within: within 24 hours - Inpatient Certification Based on my medical assessment, after consideration of the patient's comorbidities, presenting symptoms, or acuity I expect that the services needed warrant INPATIENT care.: Yes I certify that my determination is in accordance with my understanding of Medicare's requirements for reasonable and necessary INPATIENT services [42 CFR 412.3e].: Yes Medical Necessity: Need For IV Fluids, Need for Nebulizer Therapy and Monitoring of Response, Risk of Complication if Not Cared For in Hospital
[2018-07-29] MEDS: IPRATROPIUM/ALBUTEROL 0.5-2.5 MG/3 ML AMPUL NEB SCH ×4 (02:31→19:38)
[2018-07-29] MEDS: METHYLPREDNISOLONE INJ 40 MG/1 ML SDV IV SCH ×3 (05:39→21:55)
[2018-07-29] MEDS: NORMAL SALINE 1000 ML 1,000 ML IV PRN ×2 (05:39→15:01)
[2018-07-29] MEDS: HEPARIN SOD (PORCINE) 5,000 UNIT/ML 1 ML SYRINGE SUBCUT SCH ×3 (05:39→21:55)
[2018-07-29 05:55] LABS: HEMATOCRIT 26.8 % (36.0-47.0); HEMOGLOBIN 9.2 g/dL (12.0-15.5); MEAN CORPUSCULAR HEMOGLOBIN 31.3 pg (27.0-33.4); MEAN CORPUSCULAR HGB CONC 34.3 g/dL (32.0-36.0); MEAN CORPUSCULAR VOLUME 91 fl (80-97); PLATELET COUNT 286 10^3/uL (150-450); RED BLOOD COUNT 2.93 10^6/uL (3.72-5.28); RED CELL DISTRIBUTION WIDTH 15.8 % (11.5-14.0); WHITE BLOOD COUNT 8.6 10^3/uL (4.0-10.5)
[2018-07-29 06:09] LABS: ALANINE AMINOTRANSFERASE 24 U/L (9-52); ALBUMIN 2.6 g/dL (3.5-5.0); ALKALINE PHOSPHATASE 64 U/L (38-126); ANION GAP 9 (5-19); ASPARTATE AMINO TRANSFERASE 18 U/L (14-36); BILIRUBIN,DIRECT 0.3 mg/dL (0.0-0.4); BILIRUBIN,TOTAL 0.4 mg/dL (0.2-1.3); BLOOD UREA NITROGEN 79 mg/dL (7-20); CALCIUM 8.4 mg/dL (8.4-10.2); CARBON DIOXIDE 24 mmol/L (22-30); CHLORIDE 106 mmol/L (98-107); GLUCOSE 158 mg/dL (75-110); POTASSIUM 4.6 mmol/L (3.6-5.0); SODIUM 139.1 mmol/L (137-145); TOTAL PROTEIN 5.3 g/dL (6.3-8.2)
[2018-07-29] MEDS: INSULIN LISPRO 100 UNIT/ML 3 ML VIAL SUBCUT SCH ×7 (07:45→21:56)
[2018-07-29] MEDS: HYDRALAZINE HCL INJ/PF 20 MG/1 ML SDV IV PRN (07:49)
[2018-07-29] MEDS: DOCUSATE SODIUM 100 MG CAPSULE PO SCH ×2 (10:24→17:12)
[2018-07-29] MEDS: AMLODIPINE BESYLATE 10 MG TABLET PO SCH (10:24)
[2018-07-29] MEDS: GABAPENTIN 300 MG CAPSULE PO SCH ×2 (10:24→21:54)
[2018-07-29] MEDS: INSULIN GLARGINE,HUM.REC.ANLOG 1,000 UNIT/10 ML VIAL SUBCUT SCH ×2 (10:24→21:55)
[2018-07-29] MEDS: ESCITALOPRAM OXALATE 10 MG TABLET PO SCH (10:24)
[2018-07-29] MEDS: LEVOFLOXACIN 500 MG TABLET PO SCH (10:25)
[2018-07-29] MEDS: GUAIFENESIN 600 MG TABLET.SA PO SCH ×2 (10:25→21:54)
[2018-07-29] MEDS: TRAMADOL HCL 50 MG TABLET PO SCH ×2 (10:25→21:54)
[2018-07-29] MEDS: LISINOPRIL 10 MG TABLET PO SCH (10:26)
[2018-07-29] MEDS: METOPROLOL TARTRATE 50 MG TABLET PO SCH ×2 (10:26→21:54)
[2018-07-29] MEDS: MULTIVITAMIN TABLET PO SCH (10:26)
[2018-07-29] MEDS: CETIRIZINE 5 MG TABLET PO SCH (10:27)
--- NOTE | 2018-07-29 11:26 | PDOC PROGRESS REPORT ---
Subjective Progress Note for:: 07/29/18 Subjective:: Patient had an episode of a fall in her room yesterday but sustained no injury. She said she was coming back to her bed from the bathroom and tripped and fell. Otherwise she is feeling fine. Her cough is minimal with clear phlegm. She is passing good amount of urine with IV fluids that was started yesterday. Denies any shortness of breath. Reason For Visit: PNEUMONIA Physical Exam Vital Signs: Temp Pulse Resp BP Pulse Ox 97.3 F 67 20 176/76 H 94 07/29/18 08:00 07/29/18 09:21 07/29/18 09:21 07/29/18 08:00 07/29/18 09:21 Intake & Output 07/28/18 07/29/18 07/30/18 06:59 06:59 06:59 Intake Total 1197 1597 Output Total 1300 Balance 1197 297 Weight 128.3 kg 130.3 kg Exam: General appearance: PRESENT: no acute distress, cooperative, well-developed, well-nourished Head exam: PRESENT: atraumatic, normocephalic Eye exam: PRESENT: conjunctiva slightly pale, PERRLA. ABSENT: scleral icterus Neck exam: ABSENT: JVD Respiratory exam: PRESENT: Diminished breath sounds. ABSENT: crackles, rales, rhonchi, unlabored, wheezes Cardiovascular exam: PRESENT: Regular rate rhythm -+S1, +S2. ABSENT: diastolic murmur, systolic murmur GI/Abdominal exam: PRESENT: normal bowel sounds, soft. ABSENT: guarding, mass, tenderness Extremities exam: ABSENT: No edema Neurological exam: PRESENT: alert, awake, oriented to person, place and time. Skin exam: PRESENT: dry, warm, Cardiovascular exam: PRESENT: +S1, +S2. ABSENT: rubs GI/Abdominal exam: PRESENT: normal bowel sounds, soft. ABSENT: organomegaly, tenderness Results Laboratory Results: 07/29/18 04:53 07/29/18 04:53 07/29/18 07/29/18 04:53 04:53 WBC 8.6 RBC 2.93 L Hgb 9.2 L Hct 26.8 L MCV 91 MCH 31.3 MCHC 34.3 RDW 15.8 H Plt Count 286 Sodium 139.1 Potassium 4.6 Chloride 106 Carbon Dioxide 24 Anion Gap 9 BUN 79 H Creatinine 2.49 H Est GFR ( Amer) 23 L Est GFR (Non-Af Amer) 19 L Glucose 158 H Calcium 8.4 Total Bilirubin 0.4 AST 18 ALT 24 Alkaline Phosphatase 64 Total Protein 5.3 L Albumin 2.6 L 07/22/18 07/23/18 22:50 05:33 Troponin I 0.042 0.040 Impressions: Abdomen/Pelvis CT 07/23/18 04:25 IMPRESSION: No bowel obstruction. Moderate pericardial effusion. Chest X-Ray 07/24/18 00:00 IMPRESSION: Cardiomegaly. Atelectasis or early pneumonia left lower lobe. Head CT 07/28/18 00:00 IMPRESSION: NORMAL BRAIN CT WITHOUT CONTRAST. EVIDENCE OF ACUTE STROKE: NO. Assessment & Plan - Diagnosis (1) Acute kidney injury superimposed on chronic kidney disease Is this a current diagnosis for this admission?: Yes Plan: Patient is nonoliguric but exact urine output is not being quantified. Her worsening kidney function is most likely secondary to ATN due to current infectious process with left lower lobe pneumonia and possibly some volume depletion. Lasix was discontinued yesterday. Continue IV fluids. Kidney function show some improvement today. Continue to monitor kidney function . However no need of renal replacement therapy at this time. Need to monitor intake and output and accurately recorded. (2) Left lower lobe pneumonia Is this a current diagnosis for this admission?: Yes Plan: Currently on IV Levaquin. (3) Acute respiratory failure with hypoxia and hypercapnia Is this a current diagnosis for this admission?: Yes Plan: Clinically improving. (4) Hypertension Qualifiers: Hypertension type: essential hypertension Qualified Code(s): I10 - Essential (primary) hypertension Is this a current diagnosis for this admission?: Yes Plan: Labile. Slightly elevated this morning prior to medications. Continue to monitor for now. (5) Obstructive sleep apnea Is this a current diagnosis for this admission?: Yes (6) Type 2 diabetes mellitus Is this a current diagnosis for this admission?: Yes (7) Anemia, chronic disease Is this a current diagnosis for this admission?: Yes Plan: Slight decrease in hemoglobin likely partly due to dilutional effect of hydr ation. - Time Time with patient: 15-25 minutes
--- NOTE | 2018-07-29 20:37 | PDOC PROGRESS REPORT ---
Subjective Progress Note for:: 07/29/18 Subjective:: This is 63 years old female patient with multiple comorbidities including morbid obesity, coronary 30s, diastolic CHF, hypertension, hyperlipidemia, obstructive sleep apnea, stage III CKD and type 2 diabetes mellitus presented with complaint 2 weeks duration of nausea and vomiting associated with right upper quadrant pain. She is admitted to the hospitalist service for LLL PNA and acute on chronic kidney disease. The patient appears clinically well today. LCTA. No peripheral or central cyanosis. She appears euvolemic. Dr. Ramirez is following the patient, would like her to receive IVF for her renal function prior to discharge. Reason For Visit: PNEUMONIA Physical Exam Vital Signs: Temp Pulse Resp BP Pulse Ox 98.0 F 77 19 144/67 H 93 07/29/18 20:00 07/29/18 20:00 07/29/18 15:56 07/29/18 20:00 07/29/18 20:00 Intake & Output 07/28/18 07/29/18 07/30/18 06:59 06:59 06:59 Intake Total 1197 1597 2887 Output Total 1300 2000 Balance 1197 297 887 Weight 128.3 kg 130.3 kg General appearance: PRESENT: no acute distress, morbidly obese Head exam: PRESENT: atraumatic, normocephalic Eye exam: PRESENT: conjunctiva pink, EOMI, PERRLA. ABSENT: scleral icterus Ear exam: PRESENT: normal external ear exam Mouth exam: PRESENT: moist, tongue midline Neck exam: ABSENT: carotid bruit, JVD, lymphadenopathy, thyromegaly Respiratory exam: PRESENT: clear to auscultation vadim, symmetrical, unlabored. ABSENT: rales, rhonchi, wheezes Cardiovascular exam: PRESENT: RRR. ABSENT: diastolic murmur, rubs, systolic murmur Pulses: PRESENT: normal radial pulses, normal dorsalis pedis pul Vascular exam: PRESENT: pallor GI/Abdominal exam: PRESENT: normal bowel sounds, soft. ABSENT: distended, guarding, mass, organolmegaly, rebound, tenderness Rectal exam: PRESENT: deferred Extremities exam: PRESENT: full ROM. ABSENT: calf tenderness, clubbing, pedal edema Musculoskeletal exam: PRESENT: full ROM Neurological exam: PRESENT: alert, awake, oriented to person, oriented to place, oriented to time, oriented to situation Psychiatric exam: PRESENT: appropriate affect, normal mood Skin exam: PRESENT: dry, intact, warm. ABSENT: cyanosis, rash Results Laboratory Results: 07/29/18 04:53 07/29/18 04:53 07/29/18 07/29/18 04:53 04:53 WBC 8.6 RBC 2.93 L Hgb 9.2 L Hct 26.8 L MCV 91 MCH 31.3 MCHC 34.3 RDW 15.8 H Plt Count 286 Sodium 139.1 Potassium 4.6 Chloride 106 Carbon Dioxide 24 Anion Gap 9 BUN 79 H Creatinine 2.49 H Est GFR ( Amer) 23 L Est GFR (Non-Af Amer) 19 L Glucose 158 H Calcium 8.4 Total Bilirubin 0.4 AST 18 ALT 24 Alkaline Phosphatase 64 Total Protein 5.3 L Albumin 2.6 L 07/22/18 07/23/18 22:50 05:33 Troponin I 0.042 0.040 Impressions: Abdomen/Pelvis CT 07/23/18 04:25 IMPRESSION: No bowel obstruction. Moderate pericardial effusion. Chest X-Ray 07/24/18 00:00 IMPRESSION: Cardiomegaly. Atelectasis or early pneumonia left lower lobe. Head CT 07/28/18 00:00 IMPRESSION: NORMAL BRAIN CT WITHOUT CONTRAST. EVIDENCE OF ACUTE STROKE: NO. Status: Imported from PACS Assessment and Plan - Diagnosis (1) Acute respiratory failure with hypoxia and hypercapnia Is this a current diagnosis for this admission?: Yes Plan: Secondary to PNA and COPD Originally on BIPAP now weaned to NC Continue scheduled nebulizer treatments, steroids and antibiotics Patient denies smoking history. 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 She normally wears 2L NC at home. (2) Intractable nausea and vomiting Qualifiers: Vomiting type: unspecified Qualified Code(s): R11.2 - Nausea with vomiting, unspecified Is this a current diagnosis for this admission?: Yes Plan: Resolved Tolerating PO diet (3) Hypertension Qualifiers: Hypertension type: essential hypertension Qualified Code(s): I10 - Essential (primary) hypertension Is this a current diagnosis for this admission?: Yes Plan: PMH HTN Currently controlled on lisinopril and metoprolol and amlodipine (4) Hypokalemia Is this a current diagnosis for this admission?: Yes Plan: RESOLVED (5) Hyperlipidemia Qualifiers: Hyperlipidemia type: unspecified Qualified Code(s): E78.5 - Hyperlipidemia, unspecified Is this a current diagnosis for this admission?: Yes Plan: PMH HLD Continue home dose statin (6) Morbid obesity with BMI of 45.0-49.9, adult Is this a current diagnosis for this admission?: Yes Plan: Weight management with diet control only at this time. (7) Obstructive sleep apnea Is this a current diagnosis for this admission?: Yes Plan: Patient is morbidly obese Continue home CPAP QHS (8) Coronary artery disease Qualifiers: Coronary Disease-Associated Artery/Lesion type: [place] artery Is this a current diagnosis for this admission?: Yes Plan: No anginal symptoms. Continue home dose statin and low dose aspirin (9) Stage III chronic kidney disease Is this a current diagnosis for this admission?: Yes Plan: Patient is nonoliguric Dr. Ramirez consulted, believes the patient's worsening creatinine is related to sepsis No plan for HD avoid nephrotoxic agents Infuse IVF today, will re-evaluate chemistry tomorrow (10) Diastolic CHF Qualifiers: Heart failure chronicity: chronic Qualified Code(s): I50.32 - Chronic diastolic (congestive) heart failure Is this a current diagnosis for this admission?: Yes Plan: No recent echocardiogram Self-reported CHF continue home dose statin, lisinopril, amlodipine, and metoprolol (11) Left lower lobe pneumonia Is this a current diagnosis for this admission?: Yes Plan: Seen on CXR Treated with Levaquin - appropriate coverage for severe COPD exacerbation requiring inpatient hospitalization - Time Time Spent with patient: 15-24 minutes Medications reviewed and adjusted accordingly: Yes Anticipated discharge: Home Within: within 24 hours - Inpatient Certification Based on my medical assessment, after consideration of the patient's lena rbidities, presenting symptoms, or acuity I expect that the services needed warrant INPATIENT care.: Yes I certify that my determination is in accordance with my understanding of Medicare's requirements for reasonable and necessary INPATIENT services [42 CFR 412.3e].: Yes Medical Necessity: Risk of Complication if Not Cared For in Hospital
[2018-07-29] MEDS: ATORVASTATIN CALCIUM 40 MG TABLET PO SCH (21:53)
[2018-07-30] MEDS: NORMAL SALINE 1000 ML 1,000 ML IV PRN (01:05)
[2018-07-30] MEDS: IPRATROPIUM/ALBUTEROL 0.5-2.5 MG/3 ML AMPUL NEB SCH ×4 (01:48→19:37)
[2018-07-30] MEDS: HEPARIN SOD (PORCINE) 5,000 UNIT/ML 1 ML SYRINGE SUBCUT SCH ×3 (05:26→21:55)
[2018-07-30] MEDS: METHYLPREDNISOLONE INJ 40 MG/1 ML SDV IV SCH ×3 (05:27→21:55)
[2018-07-30] MEDS: INSULIN LISPRO 100 UNIT/ML 3 ML VIAL SUBCUT SCH ×7 (08:38→21:49)
[2018-07-30] MEDS: HYDRALAZINE HCL INJ/PF 20 MG/1 ML SDV IV PRN (08:56)
[2018-07-30] MEDS: INSULIN GLARGINE,HUM.REC.ANLOG 1,000 UNIT/10 ML VIAL SUBCUT SCH ×2 (09:00→21:55)
[2018-07-30] MEDS: AMLODIPINE BESYLATE 10 MG TABLET PO SCH (09:00)
[2018-07-30] MEDS: DOCUSATE SODIUM 100 MG CAPSULE PO SCH ×2 (09:00→17:09)
[2018-07-30] MEDS: METOPROLOL TARTRATE 50 MG TABLET PO SCH ×2 (09:00→21:56)
[2018-07-30] MEDS: GABAPENTIN 300 MG CAPSULE PO SCH ×2 (09:00→21:56)
[2018-07-30] MEDS: ESCITALOPRAM OXALATE 10 MG TABLET PO SCH (09:01)
[2018-07-30] MEDS: CETIRIZINE 5 MG TABLET PO SCH (09:01)
[2018-07-30] MEDS: LISINOPRIL 10 MG TABLET PO SCH (09:01)
[2018-07-30] MEDS: MULTIVITAMIN TABLET PO SCH (09:02)
[2018-07-30] MEDS: LEVOFLOXACIN 500 MG TABLET PO SCH (09:02)
[2018-07-30] MEDS: TRAMADOL HCL 50 MG TABLET PO SCH (09:02)
[2018-07-30] MEDS: GUAIFENESIN 600 MG TABLET.SA PO SCH ×2 (09:02→21:56)
[2018-07-30 10:49] LABS: ANION GAP 7 (5-19); BLOOD UREA NITROGEN 73 mg/dL (7-20); CALCIUM 8.4 mg/dL (8.4-10.2); CARBON DIOXIDE 24 mmol/L (22-30); CHLORIDE 109 mmol/L (98-107); GLUCOSE 231 mg/dL (75-110); POTASSIUM 4.3 mmol/L (3.6-5.0); SODIUM 140.3 mmol/L (137-145)
--- NOTE | 2018-07-30 11:22 | PDOC PROGRESS REPORT ---
Subjective Progress Note for:: 07/30/18 Subjective:: Patient continues to do well. She said she coughs infrequently. She wanted to go home. She makes good amount of urine output and yesterday she made 2650 mL of urine. No other new complaints. Reason For Visit: PNEUMONIA Physical Exam Vital Signs: Temp Pulse Resp BP Pulse Ox 97.4 F 89 12 139/72 H 96 07/30/18 07:40 07/30/18 10:14 07/30/18 08:17 07/30/18 10:14 07/30/18 08:17 Intake & Output 07/29/18 07/30/18 07/31/18 06:59 06:59 06:59 Intake Total 1597 4124 Output Total 1300 2650 Balance 297 1474 Weight 130.3 kg 132.6 kg Exam: General appearance: PRESENT: no acute distress, cooperative, well-developed, well-nourished Head exam: PRESENT: atraumatic, normocephalic Eye exam: PRESENT: conjunctiva pink, PERRLA. ABSENT: scleral icterus Neck exam: ABSENT: JVD Respiratory exam: PRESENT: Diminished breath sounds. ABSENT: crackles, rales, rhonchi, unlabored, wheezes Cardiovascular exam: PRESENT: Regular rate rhythm -+S1, +S2. ABSENT: diastolic murmur, systolic murmur GI/Abdominal exam: PRESENT: normal bowel sounds, soft. ABSENT: guarding, mass, tenderness Extremities exam: ABSENT: No edema Neurological exam: PRESENT: alert, awake, oriented to person, place and time. Skin exam: PRESENT: dry, warm, Cardiovascular exam: PRESENT: +S1, +S2. ABSENT: rubs GI/Abdominal exam: PRESENT: normal bowel sounds, soft. ABSENT: organomegaly, tenderness Results Laboratory Results: 07/29/18 04:53 07/30/18 09:36 07/30/18 09:36 Sodium 140.3 Potassium 4.3 Chloride 109 H Carbon Dioxide 24 Anion Gap 7 BUN 73 H Creatinine 2.22 H Est GFR ( Amer) 27 L Est GFR (Non-Af Amer) 22 L Glucose 231 H Calcium 8.4 07/22/18 07/23/18 07/30/18 22:50 05:33 09:36 Troponin I 0.042 0.040 NT-Pro-B Natriuret Pep 3730 H Impressions: Abdomen/Pelvis CT 07/23/18 04:25 IMPRESSION: No bowel obstruction. Moderate pericardial effusion. Chest X-Ray 07/24/18 00:00 IMPRESSION: Cardiomegaly. Atelectasis or early pneumonia left lower lobe. Head CT 07/28/18 00:00 IMPRESSION: NORMAL BRAIN CT WITHOUT CONTRAST. EVIDENCE OF ACUTE STROKE: NO. Assessment & Plan - Diagnosis (1) Acute kidney injury superimposed on chronic kidney disease Is this a current diagnosis for this admission?: Yes Plan: Patient makes excellent amount of urine output. Her worsening kidney function is most likely secondary to ATN due to current infectious process with left lower lobe pneumonia and possibly some volume depletion. Lasix was discontinued . Discontinue IV fluids today. Kidney function continues to improve daily. No need of renal replacement therap y at this time. As the patient kidney function has been improving for the last 3 to 4 days I think she can be sent home. She may resume Lasix upon discharge. (2) Left lower lobe pneumonia Is this a current diagnosis for this admission?: Yes Plan: Currently on IV Levaquin. (3) Acute respiratory failure with hypoxia and hypercapnia Is this a current diagnosis for this admission?: Yes Plan: Clinically improving. (4) Hypertension Qualifiers: Hypertension type: essential hypertension Qualified Code(s): I10 - Essential (primary) hypertension Is this a current diagnosis for this admission?: Yes Plan: Labile. Improved today. (5) Obstructive sleep apnea Is this a current diagnosis for this admission?: Yes (6) Type 2 diabetes mellitus Is this a current diagnosis for this admission?: Yes (7) Anemia, chronic disease Is this a current diagnosis for this admission?: Yes Plan: Slight decrease in hemoglobin likely partly due to dilutional effect of hydration. - Notes Notes: If patient will be discharged she will be happy to see the patient in our office for follow-up visit in the next 2 to 3 weeks with repeat CBC and basic metabolic panel. - Time Time with patient: 15-25 minutes
[2018-07-30] MEDS: ATORVASTATIN CALCIUM 40 MG TABLET PO SCH (21:56)
[2018-07-31] MEDS: IPRATROPIUM/ALBUTEROL 0.5-2.5 MG/3 ML AMPUL NEB SCH ×2 (02:40→07:52)
[2018-07-31] MEDS: METHYLPREDNISOLONE INJ 40 MG/1 ML SDV IV SCH (05:59)
[2018-07-31] MEDS: HEPARIN SOD (PORCINE) 5,000 UNIT/ML 1 ML SYRINGE SUBCUT SCH (05:59)
[2018-07-31] MEDS: INSULIN LISPRO 100 UNIT/ML 3 ML VIAL SUBCUT SCH ×2 (08:05)
[2018-07-31 08:36] VITALS: BP 180/82
--- NOTE | 2018-08-10 09:23 | PDOC DISCHARGE SUMMARY ---
General - Admit/Disc Date/PCP Admission Date/Primary Care Provider: 07/24/18 18:23 COLT LYNN Discharge Date: 07/31/18 - Discharge Diagnosis (1) Acute respiratory failure with hypoxia and hypercapnia Is this a current diagnosis for this admission?: Yes (2) Intractable nausea and vomiting Is this a current diagnosis for this admission?: Yes (3) Hypertension Is this a current diagnosis for this admission?: Yes (4) Hypokalemia Is this a current diagnosis for this admission?: Yes (5) Hyperlipidemia Is this a current diagnosis for this admission?: Yes (6) Morbid obesity with BMI of 45.0-49.9, adult Is this a current diagnosis for this admission?: Yes (7) Obstructive sleep apnea Is this a current diagnosis for this admission?: Yes (8) Coronary artery disease Is this a current diagnosis for this admission?: Yes (9) Stage III chronic kidney disease Is this a current diagnosis for this admission?: Yes (10) Diastolic CHF Is this a current diagnosis for this admission?: Yes (11) Left lower lobe pneumonia Is this a current diagnosis for this admission?: Yes - Additional Information Resuscitation Status: Full Code Discharge Diet: As Tolerated Discharge Activity: Activity As Tolerated Prescriptions: Amlodipine Besylate [Norvasc 10 mg Tablet] 10 mg PO DAILY #30 tablet Levofloxacin [Levaquin 500 mg Tablet] 500 mg PO DAILY #1 tablet Metoprolol Tartrate [Lopressor 50 mg Tablet] 50 mg PO Q12 #60 tablet Home Medications: Albuterol Sulfate [Proair HFA Inhalation Aerosol 8.5 gm MDI] 1 puff IH Q4HP PRN 07/23/18 Atorvastatin Calcium [Lipitor 40 mg Tablet] 40 mg PO QHS 07/23/18 Cetirizine HCl [Zyrtec 10 mg Tablet] 10 mg PO DAILY 07/23/18 Escitalopram Oxalate [Lexapro] 20 mg PO DAILY 07/23/18 Fluticasone Propionate [Flonase Nasal [place] 50 Mcg/[place] 16 gm] 1 spray NASL DAILYP PRN 07/23/18 Furosemide [Lasix 20 mg Tablet] 20 mg PO DAILY 07/23/18 Gabapentin [Neurontin 300 mg Capsule] 300 mg PO Q12 07/23/18 Insulin Glargine,Hum.rec.anlog [Lantus Insulin 100 Unit/1 ml 10 ml] 30 units SQ QPM 07/23/18 Insulin Lispro [Humalog Insulin (Lispro) 100 unit/mL] 15 units SQ MEALS 07/23/18 Lisinopril [Zestril] 20 mg PO DAILY 07/23/18 Mirabegron [Myrbetriq] 50 mg PO DAILY 07/23/18 Multivitamin [Multiple Vitamins] 1 tab PO DAILY 07/23/18 Nitrofurantoin Macrocrystal [Macrodantin] 100 mg PO DAILY 07/23/18 Pantoprazole Sodium [Protonix [address] Tablet] 40 mg PO DAILY 07/23/18 Tramadol HCl [Ultram 50 mg Tablet] 50 mg PO Q12 07/23/18 Amlodipine Besylate [Norvasc 10 mg Tablet] 10 mg PO DAILY #30 tablet 07/30/18 Levofloxacin [Levaquin 500 mg Tablet] 500 mg PO DAILY #1 tablet 07/30/18 Metoprolol Tartrate [Lopressor 50 mg Tablet] 50 mg PO Q12 #60 tablet 07/30/18 History of Present Illness History of Present Illness: FINA HERNÁNDEZ is a 63 year old female patient with past medical history of coronary artery disease, CHF, hypertension, hyperlipidemia, depression, type 2 diabetes mellitus, morbid obesity, stage III CKD and obstructive sleep apnea presented with 2 weeks history of intermittent nausea vomiting in the right upper quadrant pain. Patient denies any chills fever, cough, chest pain palpitation or diaphoresis. Patient points the pain to her right upper quadrant. She has mild right upper quadrant tenderness on palpation. Her gallbladder had to be removed surgically. Her CT scan of abdomen and pelvis is unremarkable. And her chest x-ray reported as cardiomegaly without focal consolidation. Her blood work shows hypokalemia with potassium of 2.9, creatinine of 2.33 and GFR of 22. Patient has underlying stage III CKD. Hospital Course Hospital Course: This is 63 years old female patient with multiple comorbidities including morbid obesity, coronary 30s, diastolic CHF, hypertension, hype rlipidemia, obstructive sleep apnea, stage III CKD and type 2 diabetes mellitus presented with complaint 2 weeks duration of nausea and vomiting associated with right upper quadrant pain. She is admitted to the hospitalist service for LLL PNA and acute on chronic kidney disease. The patient was initially treated for hypoxic respiratory failure with BIPAP, but was able to quickly wean to nasal cannula. Her rtespiratory failure is likely secondary to PNA or COPD. She was treated with scheduled nebulizer treatments, steroids and empiric antibiotics (levaquin - appropriate coverage for severe COPD exacerbation requiring inpatient hospitalization). Patient denies smoking history. States her COPD stems from working in a [employer] plant for decades. She normally wears 2L NC at home. In addition to her respiratory failure, the patient was treated for acute on chronic kidney disease. The patient's baseline creatinine is 1.5-1.7. Throughout this hospitalization, her creatinine has been 2.2-2.9. Patient was nonoliguric. Her BP was poorly controlled, the patient was started on amlodipine and Lopressor, which resulted in adequate BPO control. Nephrology was consulted. Dr. Ramirez believed the patient's worsening creatinine was related to sepsis. No plan for HD, rather, the patient was treated with IVF. Unfortunately, the patient suffered a fall while she was at [facility]. She was attempting to ambulate to the restroom when she fell down to the ground. She denies LOC or head trauma. The patient reported dizziness following the event. Head CT was done as a precautionary measure, results were negative. This event prolonged her hospital stay by approximately 24 hours. On hospital day #10 the patient was deemed safe for discharge. Her vital signs were stable. Her creatinine had decreased to 2.2. The patient was able to ambulate without difficulty. She was discharged home with home health. She was sent home with prescriptions for levaquin as well as her new BP agents (amlodipine and lopressor). Physical Exam Vital Signs: Temp Pulse Resp BP Pulse Ox 97.5 F 76 22 H 180/82 H 97 07/31/18 08:30 07/31/18 08:30 07/31/18 08:30 07/31/18 08:30 07/31/18 08:30 General appearance: PRESENT: obese Eye exam: PRESENT: conjunctiva pink, PERRLA Mouth exam: PRESENT: moist Teeth exam: PRESENT: poor dentation Neck exam: PRESENT: full ROM Respiratory exam: PRESENT: clear to auscultation vadim, symmetrical, unlabored Cardiovascular exam: PRESENT: RRR Pulses: PRESENT: normal radial pulses, +1 pedal pulses bilateral Vascular exam: PRESENT: normal capillary refill GI/Abdominal exam: PRESENT: normal bowel sounds, soft. ABSENT: distended, tenderness Rectal exam: PRESENT: deferred Extremities exam: PRESENT: full ROM, pedal edema - trace Musculoskeletal exam: PRESENT: ambulatory - with walker, full ROM Neurological exam: PRESENT: alert, awake, oriented to person, oriented to place, oriented to time, oriented to situation Psychiatric exam: PRESENT: appropriate affect Skin exam: PRESENT: dry, intact Results Laboratory Results: 07/29/18 04:53 07/30/18 09:36 07/22/18 07/23/18 07/30/18 22:50 05:33 09:36 Troponin I 0.042 0.040 NT-Pro-B Natriuret Pep 3730 H Impressions: Abdomen/Pelvis CT 07/23/18 04:25 IMPRESSION: No bowel obstruction. Moderate pericardial effusion. Chest X-Ray 07/24/18 00:00 IMPRESSION: Cardiomegaly. Atelectasis or early pneumonia left lower lobe. Head CT 07/28/18 00:00 IMPRESSION: NORMAL BRAIN CT WITHOUT CONTRAST. EVIDENCE OF ACUTE STROKE: NO. Status: Imported from PACS Qualifiers - * PATIENT BEING DISCHARGED WITH ANY OF THE FOLLOWING DIAGNOSIS: No Acute Heart Failure - Is this a Heart Failure Patient?: No Plan Time Spent: Less than 30 Minutes
== END 2018-07-31 09:35 | disposition home or self-care (01) | DRG 193 ==
LOC: ER 20:39 → EH 07-23 08:43 → 4N 07-23 11:50 → OBSVTOIN 07-24 18:23
PROVIDERS: ADMIT Internal Medicine; ATTEND Internal Medicine
PROC: 5A09557 Assistance with Respiratory Ventilation, Greater than 96 Consecutive Hours, Continuous Positive Airway Pressure (ICD-10-PCS; principal; 2018-07-24)
DX: J18.9 Pneumonia, unspecified organism (principal); J96.01 Acute respiratory failure with hypoxia; J96.02 Acute respiratory failure with hypercapnia; N17.9 Acute kidney failure, unspecified; I13.0 Hypertensive heart and chronic kidney disease with heart failure and stage 1 through stage 4 chronic kidney disease, or unspecified chronic kidney disease; I50.32 Chronic diastolic (congestive) heart failure; Z68.43 Body mass index [BMI] 50.0-59.9, adult; J44.0 Chronic obstructive pulmonary disease with (acute) lower respiratory infection; J44.1 Chronic obstructive pulmonary disease with (acute) exacerbation; E87.6 Hypokalemia; Z87.442 Personal history of urinary calculi; I25.10 Atherosclerotic heart disease of native coronary artery without angina pectoris; G47.33 Obstructive sleep apnea (adult) (pediatric); Z99.81 Dependence on supplemental oxygen; E78.5 Hyperlipidemia, unspecified; F32.9 Major depressive disorder, single episode, unspecified; D63.1 Anemia in chronic kidney disease; E11.22 Type 2 diabetes mellitus with diabetic chronic kidney disease; N18.3 Chronic kidney disease, stage 3 (moderate); I51.7 Cardiomegaly; Z90.49 Acquired absence of other specified parts of digestive tract; M19.90 Unspecified osteoarthritis, unspecified site; Z79.899 Other long term (current) drug therapy; Z79.4 Long term (current) use of insulin; Z91.81 History of falling; R42 Dizziness and giddiness; Z57.5 Occupational exposure to toxic agents in other industries
CPT/HCPCS: 36415; 36600; 70450; 71045; 71046; 74176; 80048; 80053; 81001; 82803; 82962; 83690; 83735; 83880; 84100; 84484; 85025; 85027; 93005; 93010; 93306; 94640; 94660; 96361; 96365; 96366; 96375; 99285; G0378; J0360; J1644; J1815; J1940; J1956; J2270; J2920; J2930; J3480; J3490; J7030; J7040; J7620; S0119

== ENCOUNTER 2018-08-27 15:27 | Inpatient (IN) | payer MEDICARE, MEDICAID ==
[2018-08-27] MEDS ORDERED: ASPIRIN 81 MG TABLET, CHEWABLE PO ONE (16:19)
[2018-08-27 17:21] LABS: ABSOLUTE BASOPHILS # (AUTO) 0.1 10^3/uL (0.0-0.2); ABSOLUTE LYMPHOCYTES (AUTO) 2.3 10^3/uL (0.5-4.7); ABSOLUTE NEUT (AUTO) 7.1 10^3/uL (1.7-8.2); BASOPHILS % (AUTO) 1.1 % (0-2); EOSINOPHILS % (AUTO) 0.4 % (0-6); HEMATOCRIT 26.4 % (36.0-47.0); HEMOGLOBIN 9.2 g/dL (12.0-15.5); LYMPHOCYTES % (AUTO) 21.5 % (13-45); MEAN CORPUSCULAR HEMOGLOBIN 31.4 pg (27.0-33.4); MEAN CORPUSCULAR HGB CONC 34.9 g/dL (32.0-36.0); MEAN CORPUSCULAR VOLUME 90 fl (80-97); MONOCYTES % (AUTO) 9.1 % (3-13); PLATELET COUNT 394 10^3/uL (150-450); RED BLOOD COUNT 2.93 10^6/uL (3.72-5.28); RED CELL DISTRIBUTION WIDTH 15.7 % (11.5-14.0); SEGMENTED NEUTROPHILS % (AUTO) 67.9 % (42-78); TOTAL CELLS COUNTED % (AUTO) 100 %; WHITE BLOOD COUNT 10.5 10^3/uL (4.0-10.5)
--- NOTE | 2018-08-27 17:36 | RADIOLOGY REPORT (SQ) ---
EXAM DESCRIPTION: CHEST SINGLE VIEW COMPLETED DATE/TIME: 08/27/2018 5:02 pm REASON FOR STUDY: cp COMPARISON: 07/24/2018 EXAM PARAMETERS: NUMBER OF VIEWS: One view. TECHNIQUE: Single frontal radiographic view of the chest acquired. RADIATION DOSE: NA LIMITATIONS: None. FINDINGS: LUNGS AND PLEURA: Retrocardiac opacification on the left. The left hemidiaphragm is indis tinct. MEDIASTINUM AND HILAR STRUCTURES: No masses. Contour normal. HEART AND VASCULAR STRUCTURES: Cardiomegaly. No pulmonary edema. BONES: No acute findings. HARDWARE: None in the chest. OTHER: No other significant finding. IMPRESSION: Cardiomegaly without pulmonary edema. Cannot exclude the airspace disease in the left b ase. Pneumonia versus atelectasis. TECHNICAL DOCUMENTATION: JOB ID: [id number] [employer]- All Rights Reserved Reading location - IP/workstation name: [email or web address]
[2018-08-27 17:49] LABS: CREATINE KINASE MB 1.24 ng/mL (<4.55)
[2018-08-27 17:52] LABS: TROPONIN I 0.041 ng/mL
[2018-08-27 18:09] LABS: ALANINE AMINOTRANSFERASE 17 U/L (9-52); ALKALINE PHOSPHATASE 102 U/L (38-126); ASPARTATE AMINO TRANSFERASE 21 U/L (14-36); BILIRUBIN,DIRECT 0.3 mg/dL (0.0-0.4); BILIRUBIN,TOTAL 0.6 mg/dL (0.2-1.3); BLOOD UREA NITROGEN 24 mg/dL (7-20); CARBON DIOXIDE 34 mmol/L (22-30); CHLORIDE 102 mmol/L (98-107); CREATINE KINASE 141 U/L (30-135); GLUCOSE 223 mg/dL (75-110); SODIUM 140.1 mmol/L (137-145)
[2018-08-27 18:31] LABS: ANION GAP 4 (5-19); POTASSIUM 2.7 mmol/L (3.6-5.0)
[2018-08-27] MEDS ORDERED: POTASSIUM CHLORIDE 10 MEQ CAPSULE.ER PO ONE (18:31)
--- NOTE | 2018-08-27 18:49 | ER Document Report ---
ED General - General Chief Complaint: Abnormal Lab Results Stated Complaint: ABNORMAL LABS Time Seen by Provider: 08/27/18 18:00 Primary Care Provider: ARTI OSBORN MD [Primary Care Provider] - Follow up as needed TRAVEL OUTSIDE OF THE [place] IN LAST 30 DAYS: No - HPI Notes: Patient is a 63-year-old female that presents to the emergency department for chief complaint of hypokalemia and chest pain. Patient states that she had routine blood work performed by Dr. Osborn and was referred to the emergency room for hypokalemia. Patient reported her potassium was 2.5 on outpatient labs. She does states she has a history of hypokalemia in the past. She does not currently take potassium supplements. She does see Dr. Osborn for her renal insufficiency and is not currently on dialysis. Patient also reports exertional chest heaviness over the last week. She states every time she gets up and walks around she has a tightness on the left side of her chest. After sitting down the tightness resolves. She denies diaphoresis nausea/vomiting. She does have some shortness of breath with exertion and the chest tightness. She had a negative cardiac stress test 2 years ago. She denies history of CAD. She does have congestive heart failure. She is currently not having any chest pain since she is at rest. Past Medical History: CHF, hypertension, hyperlipidemia Past Surgical History: cholecystectomy Social History: Denies drugs alcohol and tobacco use Family History: Reviewed and noncontributory for presenting illness Allergies: Reviewed, see documented allergy list. REVIEW OF SYSTEMS: CONSTITUTIONAL : No fever No chills No diaphoresis No recent illness EENT: No vision changes No congestion No sore throat CARDIOVASCULAR: chest pain No palpitations RESPIRATORY: shortness of breath No cough difficulty breathing GASTROINTESTINAL: No abdominal pain No nausea No vomiting No diarrhea GENITOURINARY: No dysuria No hematuria No difficulty urinating MUSCULOSKELETAL: No back pain No leg pain No arm pain SKIN: No rashes No lesions LYMPHATIC: No swollen, enlarged glands. NEUROLOGICAL: No lightheadedness No headache No weakness No paresthesias PSYCHIATRIC: No anxiety No depression PHYSICAL EXAMINATION: Vital signs reviewed, nursing noted reviewed. GENERAL: Well-appearing, obese and in no acute distress. HEAD: Atraumatic, normocephalic. EYES: Eyes appear normal, extraocular movements intact, sclera anicteric, conjunctiva are normal. ENT: nares patent, oropharynx clear without exudates. Moist mucous membranes. NECK: Normal range of motion, supple without lymphadenopathy LUNGS: Breath sounds clear to auscultation bilaterally and equal. No wheezes rales or rhonchi. HEART: Regular rate and rhythm without murmurs ABDOMEN: Soft, nontender, normoactive bowel sounds. No rebound, guarding, or rigidity. No masses appreciated. EXTREMITIES: Nontender, good range of motion. NEUROLOGICAL: No focal neurological deficits. Moves all extremities spontaneously Motor and sensory grossly intact on exam. PSYCH: Normal mood, normal affect. SKIN: Warm, Dry, normal turgor, no rashes or lesions noted on exposed skin - Related Data Allergies/Adverse Reactions: No Known Allergies Allergy (Verified 08/27/18 15:31) Past Medical History - Social History Smoking Status: Never Smoker Chew tobacco use (# tins/day): No Frequency of alcohol use: None Drug Abuse: None Family History: Reviewed & Not Pertinent Patient has suicidal ideation: No Patient has homicidal ideation: No - Past Medical History Cardiac Medical History: Reports: Hx Congestive Heart Failure, Hx Coronary Artery Disease - high chol, Hx Hypercholesterolemia, Hx Hypertension Denies: Hx Heart Attack Pulmonary Medical History: Reports: Hx Sleep Apnea - Not using CPAP at home Denies: Hx Asthma, Hx Bronchitis, Hx COPD, Hx Pneumonia Neurological Medical History: Denies: Hx Cerebrovascular Accident, Hx Seizures Endocrine Medical History: Reports: Hx Diabetes Mellitus Type 2 Renal/ Medical History: Denies: Hx Peritoneal Dialysis Musculoskeletal Medical History: Reports Hx Arthritis Psychiatric Medical History: Reports: Hx Depression Past Surgical History: Reports: Hx Cholecystectomy - Gallbladder Sx, Hx Tonsillectomy, Hx Tubal Ligation, Other - Carpal tunnel - Immunizations Hx Diphtheria, Pertussis, Tetanus Vaccination: Yes Physical Exam - Vital signs Vitals: Temp Pulse Resp BP Pulse Ox 98.4 F 78 28 H 123/55 L 91 L 08/27/18 15:42 08/27/18 15:42 08/27/18 15:42 08/27/18 15:42 08/27/18 15:42 Course - Re-evaluation Re-evalutation: 08/27/18 18:49 Vitals reviewed. Nursing notes reviewed. Patient is hypokalemic with a potassium of 2.7. EKG shows borderline QT prolongation. Potassium will be replaced IV and oral. Patient's chest x-ray shows no acute cardiopulmonary process. Her troponin is 0.04 which is comparable to her previous 2. She is complaining of chest pain and was given aspirin in the emergency room. Her chest pain is exertional with associated shortness of breath. Given her hypokalemia with prolonged QT and chest pain she will be admitted to the hospital for further management. Care discussed with Dr. Owen who accepts admission Laboratory 08/27/18 08/27/18 08/27/18 16:50 16:50 16:50 WBC 10.5 RBC 2.93 L Hgb 9.2 L Hct 26.4 L MCV 90 MCH 31.4 MCHC 34.9 RDW 15.7 H Plt Count 394 Seg Neutrophils % 67.9 Lymphocytes % 21.5 Monocytes % 9.1 Eosinophils % 0.4 Basophils % 1.1 Absolute Neutrophils 7.1 Absolute Lymphocytes 2.3 Absolute Monocytes 1.0 Absolute Eosinophils 0.0 Absolute Basophils 0.1 Sodium 140.1 Potassium 2.7 L* Chloride 102 Carbon Dioxide 34 H Anion Gap 4 L BUN 24 H Creatinine 2.00 H Est GFR ( Amer) 30 L Est GFR (Non-Af Amer) 25 L Glucose 223 H Calcium 8.0 L Total Bilirubin 0.6 Direct Bilirubin 0.3 Neonat Total Bilirubin Not Reportable Neonat Direct Bilirubin Not Reportable Neonat Indirect Bili Not Reportable AST 21 ALT 17 Alkaline Phosphatase 102 Creatine Kinase 141 H CK-MB (CK-2) 1.24 Troponin I 0.041 NT-Pro-B Natriuret Pep Total Protein 6.0 L Albumin 3.0 L 08/27/18 16:50 WBC RBC Hgb Hct MCV MCH MCHC RDW Plt Count Seg Neutrophils % Lymphocytes % Monocytes % Eosinophils % Basophils % Absolute Neutrophils Absolute Lymphocytes Absolute Monocytes Absolute Eosinophils Absolute Basophils Sodium Potassium Chloride Carbon Dioxide Anion Gap BUN Creatinine Est GFR ( Amer) Est GFR (Non-Af Amer) Glucose Calcium Total Bilirubin Direct Bilirubin Neonat Total Bilirubin Neonat Direct Bilirubin Neonat Indirect Bili AST ALT Alkaline Phosphatase Creatine Kinase CK-MB (CK-2) Troponin I NT-Pro-B Natriuret Pep 60598 H Total Protein Albumin Chest X-Ray 08/27/18 16:19 IMPRESSION: Cardiomegaly without pulmonary edema. Cannot exclude the airspace disease in the left base. Pneumonia versus atelectasis. 08/27/18 18:51 08/27/18 19:31 - Vital Signs Vital signs: Temp Pulse Resp BP Pulse Ox 98.4 F 78 28 H 123/55 L 94 08/27/18 15:42 08/27/18 15:42 08/27/18 15:42 08/27/18 15:42 08/27/18 16:50 - Laboratory Result Diagrams: 08/27/18 16:50 08/27/18 16:50 Laboratory results interpreted by me: 08/27/18 08/27/18 08/27/18 16:50 16:50 16:50 RBC 2.93 L Hgb 9.2 L Hct 26.4 L RDW 15.7 H Potassium 2.7 L* Carbon Dioxide 34 H Anion Gap 4 L BUN 24 H Creatinine 2.00 H Est GFR ( Amer) 30 L Est GFR (Non-Af Amer) 25 L Glucose 223 H Calcium 8.0 L Creatine Kinase 141 H NT-Pro-B Natriuret Pep 02243 H Total Protein 6.0 L Albumin 3.0 L - EKG Interpretation by Me Additional EKG results interpreted by me: 08/27/18 18:53 Interpreted by myself 1533: Normal sinus rhythm, rate 84, normal axis, no ectopy, borderline QT prolongation with QTC 497 Discharge - Discharge Clinical Impression: Hypokalemia, Exertional chest pain, Acute electrocardiogram changes Condition: Stable Disposition: ADMITTED OBSERVATION Admitting Provider: Brayden (Hospitalist) Unit Admitted: Telemetry
[2018-08-27] MEDS ORDERED: ASPIRIN 325 MG TABLET PO ONE (18:51)
[2018-08-27] MEDS: POTASSI CL 20 MEQ/50 ML RIDER 20 MEQ/50 ML RTUPB IV SCH ×2 (19:32→22:00)
[2018-08-27] MEDS ORDERED: HYDRALAZINE HCL INJ/PF 20 MG/1 ML SDV IV ONE (20:17)
[2018-08-27] MEDS ORDERED: ONDANSETRON HCL INJ/PF 4 MG/2 ML SDV IV PRN (20:39)
[2018-08-27] MEDS ORDERED: TEMAZEPAM 15 MG CAPSULE PO PRN (20:39)
[2018-08-27] MEDS ORDERED: MAGNESIUM HYDROXIDE SUSP 30 ML UDCUP PO PRN (20:39)
[2018-08-27] MEDS ORDERED: MAG HYDROX/AL HYDROX/SIMETH SUSP 30 ML UDCUP PO PRN (20:39)
[2018-08-27] MEDS ORDERED: HYDRALAZINE HCL INJ/PF 20 MG/1 ML SDV IV PRN (20:46)
[2018-08-27] MEDS ORDERED: ACETAMINOPHEN 325 MG TABLET PO PRN (20:46)
[2018-08-27] MEDS ORDERED: INSULIN REG, HUMAN 100 UNIT/ML 3 ML VIAL (PYX) SUBCUT PRN (20:46)
[2018-08-27] MEDS ORDERED: MORPHINE SULFATE 10 MG/ML INJ IV PRN (20:46)
[2018-08-27] MEDS ORDERED: DEXTROSE 50%-WATER 25 GM/50 ML DISP.SYRIN IV PRN ×2 (20:47)
[2018-08-27] MEDS ORDERED: DEXTROSE 40% GEL 15 GM TUBE PO PRN ×2 (20:47)
[2018-08-27] MEDS ORDERED: GLUCAGON,HUMAN RECOMB 1 MG INJ IM PRN (20:47)
[2018-08-27] MEDS ORDERED: BUMETANIDE INJ/PF 1 MG/4 ML SDV IV ONE (21:00)
[2018-08-27] MEDS: METOPROLOL TARTRATE PF/INJ 5 MG/5 ML SDV IV PRN (21:55)
[2018-08-27] MEDS: HEPARIN SOD (PORCINE) 5,000 UNIT/ML 1 ML SYRINGE SUBCUT SCH (21:56)
[2018-08-27] MEDS: INSULIN GLARGINE,HUM.REC.ANLOG 1,000 UNIT/10 ML VIAL SUBCUT SCH (21:59)
[2018-08-27 22:02] LABS: FREE T3 3.22 pg/mL (2.77-5.27); FREE T4 (FREE THYROXINE) 1.07 ng/dL (0.78-2.19)
[2018-08-27 22:16] LABS: THYROID STIMULATING HORMONE 2.22 uIU/mL (0.47-4.68)
[2018-08-28] MEDS: NITROGLYCERIN 2% OINTMENT 1 GM PACKET TP SCH ×2 (00:17→06:21)
--- NOTE | 2018-08-28 01:27 | ADVANCED CARE ---
- Diagnosis (1) Exertional chest pain Diagnosis Current: Yes (2) Malignant hypertension requiring acute intensive management Diagnosis Current: Yes (3) Hypokalemia Diagnosis Current: Yes (4) CKD (chronic kidney disease), stage III Diagnosis Current: Yes (5) Diabetes mellitus type 2 in obese Diagnosis Current: Yes (6) NILO (obstructive sleep apnea) Diagnosis Current: Yes (7) Hyperlipidemia Diagnosis Current: Yes (8) Anemia, chronic disease Diagnosis Current: Yes Attendance: The patient and myself Resuscitation Status: Full Code Discussion: After discussion the patient is chosen to continue to be on a full code resuscitation status for her CODE STATUS during his hospitalization in the event of a cardiac or respiratory arrest. Additionally she has named Jaye Wakefield her daughter to be her designated surrogate medical decision-maker. She is not interested in discussing a living will at the present time. Care Planning Goals: 1. The patient will be full CODE STATUS throughout the remainder of her hospital course. 2. Jaye Wakefield is her designated surrogate medical decision-maker. Document(s) Completed: The following entries will be made to the patient's permanent medical record and current medical orders via EMR entry: 1. The patient will be full CODE STATUS throughout the remainder of her hospital course. 2. Jaye Wakefield is her designated surrogate medical decision-maker. Time Spent: 9 minutes
--- NOTE | 2018-08-28 01:29 | PDOC H&P ---
History of Present Illness Admission Date/PCP: 08/27/2018 19:38 ARTI OSBORN MD Patient complains of: Chest pain and hypokalemia History of Present Illness: FINA HERNÁNDEZ is a 63 year old female who presented to the emergency room with a 2-week history of chest pain. She admits that over the last 2 weeks she has experienced intermittent episodes of chest pain lasting for 2 or 3 minutes per episode. She describes the chest pain as a constant, moderate, chest heaviness/tightness in the central and left aspects of her anterior chest without radiation. The chest pain occurs with all exertion/activity and is resolved by rest. She further admits to mild dyspnea accompanying the chest pain but denies any other associated or accompanying symptoms. She admits prior similar episodes that resulted in her having a cardiac stress test which was "negative" about 2 years ago. She denies identification of any additional aggravating or ameliorating factors for her chest pain. Additionally she was informed by Dr. Osborn that her potassium was 2.5 and she should be seen in the emergency room to have this evaluated along with her chest pain. In the emergency room she was found to have a serum troponin which was 0.04 and consistent with her prior baseline troponins, and EKG which showed no evidence of acute myocardial injury or ischemia, but did demonstrate a prolonged QT in terval at 0.495. The patient was also noted to have a serum potassium of 2.7. She was subsequently admitted to the hospital for further evaluation and treatment. Past Medical History Cardiac Medical History: Reports: Congestive Heart Failure, Hyperlipidema, Hypertension Denies: Atrial Fibrillation, Coronary Artery Disease, DVT, Myocardial Infarction, Peripheral Vascular Disease, Pulmonary Embolism Pulmonary Medical History: Reports: Sleep Apnea - Not using CPAP at home Denies: Asthma, Bronchitis, Chronic Obstructive Pulmonary Disease (COPD), Pneumonia EENT Medical History: Denies: Cataracts, Ears - Hearing aids Neurological Medical History: Denies: Hemorrhagic CVA, Ischemic CVA, Multiple Sclerosis, Seizures Endocrine Medical History: Reports: Diabetes Mellitus Type 2, Obesity Denies: Diabetes Mellitus Type 1, Hyperthyroidism, Hypothyroidism Renal/ Medical History: Reports: Chronic Kidney Disease Denies: Nephrolithiasis Malignancy Medical History: Reports: None GI Medical History: Denies: Cirrhosis, Crohn's Disease, Hepatitis, Ulcerative Colitis Musculoskeltal Medical History: Reports: Arthritis Denies: Gout Skin Medical History: Denies: Eczema, Psoriasis Psychiatric Medical History: Reports: Depression Denies: Alcohol Dependency, Substance Abuse, Tobacco Dependency Traumatic Medical History: Reports: None Hematology: Reports: Anemia Denies: Bleeding Tendencies Infectious Medical History: Reports: None Past Surgical History Past Surgical History: Reports: Cholecystectomy, Tonsillectomy, Tubal Ligation, Other - Carpal tunnel Social History Information Source: Patient Lives with: Alone Smoking Status: Never Smoker Frequency of Alcohol Use: None Hx Recreational Drug Use: No Drugs: None Hx Prescription Drug Abuse: No - Advance Directive Resuscitation Status: Full Code Surrogate healthcare decision maker:: Jaye Wakefield her daughter Family History Family History: CAD, DM, Hypertension. denies: Malignancy Parental Family History Reviewed: Yes Children Family History Reviewed: No Sibling(s) Family History Reviewed.: Yes Medication/Allergy Home Medications: Amlodipine Besylate [Norvasc 10 mg Tablet] 10 mg PO DAILY 08/27/18 Carvedilol [Coreg 6.25 mg Tablet] 6.25 mg PO BID 08/27/18 Cetirizine HCl [Allergy Relief] 10 mg PO DAILY 08/27/18 Escitalopram Oxalate 20 mg PO DAILY PRN 08/27/18 Ezetimibe [Zetia 10 mg Tablet] 10 mg PO DAILY 08/27/18 Fluticasone Propionate [Flonase Nasal [place] 50 Mcg/[place] 16 gm] 1 - 2 spray NASL PRN PRN 08/27/18 Furosemide [Lasix 40 mg Tablet] 80 mg PO DAILY 08/27/18 Gabapentin [Neurontin 300 mg Capsule] 900 mg PO BID 08/27/18 Insulin Glargine,Hum.rec.anlog [Lantus (Pyxis) Insulin 100 Unit/1 ml 10 ml] 35 units SQ BID 08/27/18 Lisinopril 20 mg PO DAILY 08/27/18 Mirabegron [Myrbetriq] 50 mg PO DAILY 08/27/18 Nitrofurantoin Macrocrystal [Macrodantin] 100 mg PO DAILY 08/27/18 Pantoprazole Sodium 40 mg PO DAILY 08/27/18 Tramadol HCl [Ultram 50 mg Tablet] 50 mg PO Q12H PRN 08/27/18 Allergies/Adverse Reactions: No Known Allergies Allergy (Verified 08/27/18 15:31) Review of Systems Constitutional: ABSENT: chills, fever(s) Eyes: ABSENT: visual disturbances, other - Ocular pain Ears: ABSENT: hearing changes, other - Ear pain Nose, Mouth, and Throat: ABSENT: mouth pain, sore throat Cardiovascular: PRESENT: as per HPI, chest pain, dyspnea on exertion. ABSENT: edema, orthropnea, palpitations Respiratory: PRESENT: as per HPI, dyspnea. ABSENT: cough Gastrointestinal: ABSENT: abdominal pain, constipation, diarrhea, dysphagia, heartburn, nausea, vomiting Genitourinary: ABSENT: dysuria, hematuria Musculoskeletal: ABSENT: back pain, joint swelling, muscle weakness Integumentary: ABSENT: pruritus, rash Neurological: ABSENT: confusion, convulsions, focal weakness, memory loss, numbness, syncope Psychiatric: ABSENT: anxiety, depression Endocrine: ABSENT: cold intolerance, heat intolerance Hematologic/Lymphatic: ABSENT: easy bleeding, easy bruising Physical Exam Vital Signs: Temp Pulse Resp BP Pulse Ox 98.4 F 78 19 220/92 H 93 08/27/18 15:42 08/27/18 15:42 08/27/18 19:35 08/27/18 19:35 08/27/18 19:35 Intake & Output 08/25/18 08/26/18 08/27/18 23:59 23:59 23:59 Weight 120.6 kg General appearance: PRESENT: no acute distress, cooperative, morbidly obese Head exam: PRESENT: atraumatic, normocephalic Eye exam: ABSENT: conjunctival injection, scleral icterus Ear exam: PRESENT: normal external ear exam. ABSENT: bleeding, drainage Mouth exam: PRESENT: dry mucosa, neck supple Neck exam: ABSENT: JVD, thyromegaly, tracheal deviation Respiratory exam: PRESENT: clear to auscultation vadim, symmetrical, unlabored Cardiovascular exam: PRESENT: RRR. ABSENT: clicks, gallop, rubs Pulses: PRESENT: normal radial pulses, normal dorsalis pedis pul Vascular exam: PRESENT: normal capillary refill. ABSENT: pallor GI/Abdominal exam: PRESENT: normal bowel sounds, soft Rectal exam: PRESENT: deferred Extremities exam: ABSENT: joint swelling, pedal edema, tenderness Musculoskeletal exam: PRESENT: full ROM, normal inspection. ABSENT: tenderness Neurological exam: PRESENT: alert, oriented to person, oriented to place, oriented to time, oriented to situation, CN II-XII grossly intact. ABSENT: motor sensory deficit Psychiatric exam: PRESENT: appropriate affect, normal mood Skin exam: PRESENT: dry, intact, warm. ABSENT: jaundice, rash, urticaria Results Laboratory Results: 08/27/18 16:50 08/27/18 16:50 08/27/18 08/27/18 16:50 16:50 WBC 10.5 RBC 2.93 L Hgb 9.2 L Hct 26.4 L MCV 90 MCH 31.4 MCHC 34.9 RDW 15.7 H Plt Count 394 Seg Neutrophils % 67.9 Lymphocytes % 21.5 Monocytes % 9.1 Eosinophils % 0.4 Basophils % 1.1 Absolute Neutrophils 7.1 Absolute Lymphocytes 2.3 Absolute Monocytes 1.0 Absolute Eosinophils 0.0 Absolute Basophils 0.1 Sodium 140.1 Potassium 2.7 L* Chloride 102 Carbon Dioxide 34 H Anion Gap 4 L BUN 24 H Creatinine 2.00 H Est GFR ( Amer) 30 L Est GFR (Non-Af Amer) 25 L Glucose 223 H Calcium 8.0 L Total Bilirubin 0.6 AST 21 ALT 17 Alkaline Phosphatase 102 Total Protein 6.0 L Albumin 3.0 L 08/27/18 08/27/18 08/27/18 16:50 16:50 16:50 Creatine Kinase 141 H CK-MB (CK-2) 1.24 Troponin I 0.041 NT-Pro-B Natriuret Pep 83065 H EKG Comments: I have personally reviewed the EKG with the following findings: 1. Normal sinus rhythm with a rate of 84 bpm 2. Borderline prolonged QT interval at 0.495 seconds 3. No acute changes of myocardial injury or ischemia Impressions: Chest X-Ray 08/27/18 16:19 IMPRESSION: Cardiomegaly without pulmonary edema. Cannot exclude the airspace disease in the left base. Pneumonia versus atelectasis. Status: Image reviewed by ar - I have personally reviewed the chest x-ray with the following findings: 1. Cardiomegaly, appears to be chronic 2. No acute changes of cardiac or pulmonary disease. Assessment and Plan - Diagnosis (1) Exertional chest pain Is this a current diagnosis for this admission?: Yes Plan: Patient will be admitted for serial cardiac enzymes and EKG evaluations. A cardiology consultation will be obtained with Dr. Rodriguez. Patient's chest pain will be treated with morphine sulfate 2 to 4 mg IV every 2 hours on a as needed basis per sliding scale. (2) Malignant hypertension requiring acute intensive management Is this a current diagnosis for this admission?: Yes Plan: The patient's hypertension will be managed by continuing her current antihypertensive regiment and supplementing it with hydralazine 20 mg IV every 4 hours as needed systolic blood pressure greater than 160 or diastolic blood pressure greater than 100, and metoprolol 5 mg IV every 4 hours as needed for the same indications along the medications to be given alternately every 2 hours if needed for control. Nitroglycerin paste will be applied to the patient's chest every 6 hours for additional reduction in blood pressure and reduction of her exertional chest pain. (3) Hypokalemia Is this a current diagnosis for this admission?: Yes Plan: Patient's hypokalemia will be repleted utilizing IV and oral potassium rep lacement. Daily metabolic profiles and magnesium levels will be obtained as part of the management for this problem (4) CKD (chronic kidney disease), stage III Is this a current diagnosis for this admission?: Yes Plan: Daily metabolic profiles, magnesium levels and CBCs will be obtained as part of the management of this problem. (5) Diabetes mellitus type 2 in obese Is this a current diagnosis for this admission?: Yes Plan: Hemoglobin A1c will be obtained to assess her current therapy. She will be continued on a diabetic diet and her usual diabetic control regimen. Before meals and at bedtime Accu-Cheks will be obtained and a sliding scale Humulin ins ulin administration will be given for hyperglycemia. Hypoglycemic regiment will also be employed per protocol. (6) NILO (obstructive sleep apnea) Is this a current diagnosis for this admission?: Yes Plan: Patient will continue with her current NILO therapy during her hospital course with adjustments made as required for maintenance of adequate O2 saturations, which will be monitored on a regular basis. (7) Hyperlipidemia Qualifiers: Hyperlipidemia type: unspecified Qualified Code(s): E78.5 - Hyperlipidemia, unspecified Is this a current diagnosis for this admission?: Yes Plan: Patient will be continued on her current therapy. A lipid profile will be obtained to assess the efficacy of her current therapy with adjustments made as appropriate. (8) Anemia, chronic disease Is this a current diagnosis for this admission?: Yes Plan: A daily CBC will be obtained as part of the ongoing management for this problem. - Time Time Spent with patient: 25-34 minutes Medications reviewed and adjusted accordingly: Yes Anticipated discharge: Home - Inpatient Certification Based on my medical assessment, after consideration of the patient's comorbidities, presenting symptoms, or acuity I expect that the services needed warrant INPATIENT care.: Yes I certify that my determination is in accordance with my understanding of Medicare's requirements for reasonable and necessary INPATIENT services [42 CFR 412.3e].: Yes Medical Necessity: Significant Comorbidiites Make Outpatient Treatment Too Risky, Need Close Monitoring Due to Risk of Patient Decompensation, Need For Continuous Telemetry Monitoring, Need for Neurological Checks, Need for Pain Control, Risk of Complication if Not Cared For in Hospital
[2018-08-28 02:29] LABS: CREATINE KINASE MB 1.47 ng/mL (<4.55); TROPONIN I 0.038 ng/mL
[2018-08-28] MEDS: METOPROLOL TARTRATE PF/INJ 5 MG/5 ML SDV IV PRN (03:31)
[2018-08-28] MEDS: HEPARIN SOD (PORCINE) 5,000 UNIT/ML 1 ML SYRINGE SUBCUT SCH ×3 (06:21→22:10)
[2018-08-28] MEDS: PANTOPRAZOLE SODIUM 40 MG TABLET.DR PO SCH ×2 (06:23→17:59)
[2018-08-28] MEDS ORDERED: POTASSIUM CHLORIDE 10 MEQ CAPSULE.ER PO SCH (08:00)
[2018-08-28 08:30] LABS: ABSOLUTE BASOPHILS # (AUTO) 0.1 10^3/uL (0.0-0.2); ABSOLUTE EOSINOPHILS # (AUTO) 0.1 10^3/uL (0.0-0.6); ABSOLUTE LYMPHOCYTES (AUTO) 2.6 10^3/uL (0.5-4.7); ABSOLUTE NEUT (AUTO) 5.2 10^3/uL (1.7-8.2); BASOPHILS % (AUTO) 0.9 % (0-2); EOSINOPHILS % (AUTO) 0.8 % (0-6); HEMATOCRIT 23.9 % (36.0-47.0); HEMOGLOBIN 8.4 g/dL (12.0-15.5); MEAN CORPUSCULAR HEMOGLOBIN 31.8 pg (27.0-33.4); MEAN CORPUSCULAR HGB CONC 35.1 g/dL (32.0-36.0); MEAN CORPUSCULAR VOLUME 91 fl (80-97); MONOCYTES % (AUTO) 11.1 % (3-13); PLATELET COUNT 324 10^3/uL (150-450); RED BLOOD COUNT 2.64 10^6/uL (3.72-5.28); RED CELL DISTRIBUTION WIDTH 15.3 % (11.5-14.0); SEGMENTED NEUTROPHILS % (AUTO) 58.2 % (42-78); TOTAL CELLS COUNTED % (AUTO) 100 %; WHITE BLOOD COUNT 8.9 10^3/uL (4.0-10.5)
[2018-08-28 08:48] LABS: ALANINE AMINOTRANSFERASE 19 U/L (9-52); ALBUMIN 2.6 g/dL (3.5-5.0); ALKALINE PHOSPHATASE 89 U/L (38-126); ASPARTATE AMINO TRANSFERASE 17 U/L (14-36); BILIRUBIN,DIRECT 0.3 mg/dL (0.0-0.4); BILIRUBIN,TOTAL 0.7 mg/dL (0.2-1.3); BLOOD UREA NITROGEN 24 mg/dL (7-20); CALCIUM 7.8 mg/dL (8.4-10.2); CHOLESTEROL 221.47 mg/dL (0-200); GLUCOSE 82 mg/dL (75-110); TOTAL PROTEIN 5.1 g/dL (6.3-8.2); TRIGLYCERIDES 352 mg/dL (<150)
[2018-08-28 08:53] LABS: CARBON DIOXIDE 35 mmol/L (22-30); CHLORIDE 105 mmol/L (98-107); SODIUM 142.8 mmol/L (137-145)
[2018-08-28 08:59] LABS: DIRECT LDL 100 mg/dL (<100)
[2018-08-28 09:03] LABS: VLDL CHOLESTEROL 70.4 mg/dL (10-31)
[2018-08-28 09:04] LABS: ANION GAP 3 (5-19)
[2018-08-28 09:05] LABS: POTASSIUM 2.7 mmol/L (3.6-5.0)
[2018-08-28] MEDS: ESCITALOPRAM OXALATE 10 MG TABLET PO SCH (09:24)
[2018-08-28] MEDS: LOSARTAN POTASSIUM 50 MG TABLET PO SCH (09:24)
[2018-08-28] MEDS: CARVEDILOL 6.25 MG TABLET PO SCH ×2 (09:24→17:59)
[2018-08-28] MEDS: GABAPENTIN 300 MG CAPSULE PO SCH ×2 (09:24→17:59)
[2018-08-28] MEDS: AMLODIPINE BESYLATE 10 MG TABLET PO SCH (09:25)
[2018-08-28] MEDS: EZETIMIBE 10 MG TABLET PO SCH (09:25)
[2018-08-28] MEDS: DOCUSATE SODIUM 100 MG CAPSULE PO SCH ×2 (09:25→18:00)
[2018-08-28] MEDS ORDERED: MAGNESIUM OXIDE 400 MG TABLET PO ONE (09:29)
[2018-08-28] MEDS ORDERED: POTASSIUM CHLORIDE 10 MEQ CAPSULE.ER PO ONE (09:31)
--- NOTE | 2018-08-28 09:49 | PDOC PROGRESS REPORT ---
Subjective Progress Note for:: 08/28/18 Subjective:: 63 year old female who presented to the emergency room with a 2-week history of chest pain. She admits that over the last 2 weeks she has experienced intermittent episodes of chest pain lasting for 2 or 3 minutes per episode. She describes the chest pain as a constant, moderate, chest heaviness/tightness in the central and left aspects of her anterior chest without radiation. The chest pain occurs with all exertion/activity and is resolved by rest. She further admits to mild dyspnea accompanying the chest pain but denies any other associated or accompanying symptoms. She admits prior similar episodes that resulted in her having a cardiac stress test which was "negative" about 2 years ago. She denies identification of any additional aggravating or ameliorating factors for her chest pain. Additionally she was informed by Dr. Ramirez that her potassium was 2.5 and she should be seen in the emergency room to have this evaluated along with her chest pain. In the emergency room she was found to have a serum troponin which was 0.04 and consistent with her prior baseline troponins, and EKG which showed no evidence of acute myocardial injury or ische elina, but did demonstrate a prolonged QT interval at 0.495. The patient was also noted to have a serum potassium of 2.7. She was subsequently admitted to the hospital for further evaluation and treatment. 63-year-old female with multiple medical problems including congestive heart failure and CKD admitted with chest pains troponins are at baseline. Potassium is 2.7 she is getting potassium supplementation repeat potassium is 2.7 also to give 40 mg of potassium now and will give her 40 mg of potassium twice a day. Patient is complaining of shortness of breath on minimal walking to the rest room. X-ray shows cardiomegaly without Pulmonary edema. Acute event the last 24 hours. Urinary output is good. Reason For Visit: EXERTIONAL CHEST PAIN,MALIGNANT HYPERTENSION Physical Exam Vital Signs: Temp Pulse Resp BP Pulse Ox 97.9 F 71 16 151/80 H 90 L 08/28/18 07:28 08/28/18 07:28 08/28/18 07:28 08/28/18 07:28 08/28/18 07:28 Intake & Output 08/27/18 08/28/18 08/29/18 06:59 06:59 06:59 Intake Total 100 Output Total 400 Balance -300 Weight 120.6 kg General appearance: PRESENT: no acute distress, morbidly obese Head exam: PRESENT: atraumatic Eye exam: PRESENT: PERRLA Mouth exam: PRESENT: moist, tongue midline Teeth exam: PRESENT: poor dentation Neck exam: ABSENT: carotid bruit, JVD, lymphadenopathy, thyromegaly Respiratory exam: PRESENT: crackles, decreased breath sounds Cardiovascular exam: PRESENT: RRR. ABSENT: diastolic murmur, rubs, systolic murmur GI/Abdominal exam: PRESENT: normal bowel sounds, soft. ABSENT: distended, guarding, mass, organolmegaly, rebound, tenderness Rectal exam: PRESENT: deferred Extremities exam: PRESENT: full ROM. ABSENT: calf tenderness, clubbing, pedal edema Neurological exam: PRESENT: alert, awake, oriented to person, oriented to place, oriented to time, oriented to situation, CN II-XII grossly intact. ABSENT: motor sensory deficit Psychiatric exam: PRESENT: appropriate affect, normal mood. ABSENT: homicidal ideation, suicidal ideation Results Laboratory Results: 08/28/18 08:15 08/28/18 08:15 08/27/18 08/27/18 08/27/18 16:50 16:50 16:50 WBC 10.5 RBC 2.93 L Hgb 9.2 L Hct 26.4 L MCV 90 MCH 31.4 MCHC 34.9 RDW 15.7 H Plt Count 394 Seg Neutrophils % 67.9 Lymphocytes % 21.5 Monocytes % 9.1 Eosinophils % 0.4 Basophils % 1.1 Absolute Neutrophils 7.1 Absolute Lymphocytes 2.3 Absolute Monocytes 1.0 Absolute Eosinophils 0.0 Absolute Basophils 0.1 Sodium 140.1 Potassium 2.7 L* Chloride 102 Carbon Dioxide 34 H Anion Gap 4 L BUN 24 H Creatinine 2.00 H Est GFR ( Amer) 30 L Est GFR (Non-Af Amer) 25 L Glucose 223 H Calcium 8.0 L Magnesium Total Bilirubin 0.6 AST 21 ALT 17 Alkaline Phosphatase 102 Total Protein 6.0 L Albumin 3.0 L Triglycerides Cholesterol LDL Cholesterol Direct VLDL Cholesterol HDL Cholesterol TSH 2.22 Free T4 1.07 Free T3 pg/mL 3.22 08/28/18 08/28/18 08/28/18 08:15 08:15 08:15 WBC Cancelled 8.9 RBC Cancelled 2.64 L Hgb Cancelled 8.4 L Hct Cancelled 23.9 L MCV Cancelled 91 MCH Cancelled 31.8 MCHC Cancelled 35.1 RDW Cancelled 15.3 H Plt Count Cancelled 324 Seg Neutrophils % 58.2 Lymphocytes % 29.0 Monocytes % 11.1 Eosinophils % 0.8 Basophils % 0.9 Absolute Neutrophils 5.2 Absolute Lymphocytes 2.6 Absolute Monocytes 1.0 Absolute Eosinophils 0.1 Absolute Basophils 0.1 Sodium 142.8 Potassium 2.7 L* Chloride 105 Carbon Dioxide 35 H Anion Gap 3 L BUN 24 H Creatinine 1.90 H Est GFR ( Amer) 32 L Est GFR (Non-Af Amer) 27 L Glucose 82 Calcium 7.8 L Magnesium 1.5 L Total Bilirubin 0.7 AST 17 ALT 19 Alkaline Phosphatase 89 Total Protein 5.1 L Albumin 2.6 L Triglycerides 352 H Cholesterol 221.47 H LDL Cholesterol Direct 100 VLDL Cholesterol 70.4 H HDL Cholesterol 63 TSH Free T4 Free T3 pg/mL 08/28/18 08:15 WBC RBC Hgb Hct MCV MCH MCHC RDW Plt Count Seg Neutrophils % Lymphocytes % Monocytes % Eosinophils % Basophils % Absolute Neutrophils Absolute Lymphocytes Absolute Monocytes Absolute Eosinophils Absolute Basophils Sodium Cancelled Potassium Cancelled Chloride Cancelled Carbon Dioxide Cancelled Anion Gap Cancelled BUN Cancelled Creatinine Cancelled Est GFR ( Amer) Cancelled Est GFR (Non-Af Amer) Cancelled Glucose Cancelled Calcium Cancelled Magnesium Total Bilirubin Cancelled AST Cancelled ALT Cancelled Alkaline Phosphatase Cancelled Total Protein Cancelled Albumin Cancelled Triglycerides Cholesterol LDL Cholesterol Direct VLDL Cholesterol HDL Cholesterol TSH Free T4 Free T3 pg/mL 08/27/18 08/27/18 08/27/18 16:50 16:50 16:50 Creatine Kinase 141 H CK-MB (CK-2) 1.24 Troponin I 0.041 NT-Pro-B Natriuret Pep [id number] H 08/27/18 08/27/18 08/27/18 20:00 20:00 20:00 Creatine Kinase 137 H CK-MB (CK-2) Troponin I 0.037 NT-Pro-B Natriuret Pep 14910 H 08/27/18 08/28/18 08/28/18 20:00 01:58 01:58 Creatine Kinase 133 CK-MB (CK-2) 1.06 1.47 Troponin I Cancelled 0.038 NT-Pro-B Natriuret Pep 08/28/18 08:15 Creatine Kinase 129 CK-MB (CK-2) Troponin I NT-Pro-B Natriuret Pep Impressions: Chest X-Ray 08/27/18 16:19 IMPRESSION: Cardiomegaly without pulmonary edema. Cannot exclude the airspace disease in the left base. Pneumonia versus atelectasis. Assessment and Plan - Diagnosis (1) Exertional chest pain Is this a current diagnosis for this admission?: Yes Plan: Patient will be admitted for serial cardiac enzymes and EKG evaluations. A cardiology consultation will be obtained with Dr. Rodriguez. Patient's chest pain will be treated with morphine sulfate 2 to 4 mg IV every 2 hours on a as needed basis per sliding scale. 08/28/2018-patient is still complaining of shortness of breath with minimal activity like walking to the restroom. Unable to do the CTA of the chest. Plan to do the VQ scan of the chest on Thursday. X-ray shows cardiomegaly. No pulmonary edema. (2) Malignant hypertension requiring acute intensive management Is this a current diagnosis for this admission?: Yes Plan: The patient's hypertension will be managed by continuing her current antihypertensive regiment and supplementing it with hydralazine 20 mg IV every 4 hours as needed systolic blood pressure greater than 160 or diastolic blood p ressure greater than 100, and metoprolol 5 mg IV every 4 hours as needed for the same indications along the medications to be given alternately every 2 hours if needed for control. Nitroglycerin paste will be applied to the patient's chest every 6 hours for additional reduction in blood pressure and reduction of her exertional chest pain. 08/28/2018-patient blood pressure today is 150/82. Well controlled. Plan to discontinue Nitropaste. Presently on Lasix 80 mg p.o. daily, hydralazine 20 mg IV every 4 as needed, metoprolol 5 mg IV every 4 as needed and she is also on Coreg, amlodipine and losartan. Plan to continue those medications. (3) Hypokalemia Is this a current diagnosis for this admission?: Yes Plan: 08/28/2018-patient serum potassium is 2.7 on admission is 2.7 also she received Bumex 1 dose in the ER and is receiving Lasix 80 mg p.o. daily plan to give potassium 40 mg 1 dose and continue 40 mg twice daily. To check daily labs. (4) CKD (chronic kidney disease), stage III Is this a current diagnosis for this admission?: Yes Plan: Daily metabolic profiles, magnesium levels and CBCs will be obtained as part of the management of this problem. 08/28/2018-patient has history of her CKD. On admission creatinine was 2.0 today's creatinine is 1.9. Plan is to continue to watch kidney function. Since creatinine is fluctuating between 1.8-2.2 in the recent labs. Documented urinary output is 400 mL so far. (5) Anemia, chronic disease Is this a current diagnosis for this admission?: Yes Plan: A daily CBC will be obtained as part of the ongoing management for this problem. 08/28/2018-anemia of chronic disease most likely secondary to underlying CKD. Latest hemoglobin is 8.4. Asymptomatic. (6) Obstructive sleep apnea Is this a current diagnosis for this admission?: No Plan: 08/28/2018-patient has history of obstructive sleep apnea. Plan to continue to provide CPAP at night. (7) CHF (congestive heart failure) Qualifiers: Heart failure type: unspecified Is this a current diagnosis for this admission?: No Plan: 08/28/2018-patient has history of chronic congestive heart failure systolic in nature recent echocardiogram shows EF less than 55%. Chest x-ray shows cardiomegaly without any pulmonary edema. - Time Time Spent with patient: 25-34 minutes Medications reviewed and adjusted accordingly: Yes Anticipated discharge: Home
[2018-08-28] MEDS ORDERED: FUROSEMIDE 40 MG TABLET PO SCH (10:00)
[2018-08-28 11:09] LABS: CREATINE KINASE MB 1.25 ng/mL (<4.55); TROPONIN I 0.026 ng/mL
[2018-08-28] MEDS: INSULIN GLARGINE,HUM.REC.ANLOG 1,000 UNIT/10 ML VIAL SUBCUT SCH ×2 (11:29→22:10)
[2018-08-28] MEDS: POTASSIUM CHLORIDE 10 MEQ CAPSULE.ER PO SCH (17:59)
--- NOTE | 2018-08-29 00:17 | EKG REPORT ---
SEVERITY:- ABNORMAL ECG - SINUS RHYTHM PROBABLE INFERIOR INFARCT, AGE INDETERMINATE LATERAL LEADS ARE ALSO INVOLVED BORDERLINE PROLONGED QT INTERVAL : Confirmed by: Sparkle Ingram 29-Aug-2018 00:17:04
--- NOTE | 2018-08-29 00:17 | EKG REPORT ---
SEVERITY:- ABNORMAL ECG - SINUS RHYTHM PROBABLE INFERIOR INFARCT, AGE INDETERMINATE LATERAL LEADS ARE ALSO INVOLVED : Confirmed by: Sparkle Ingram 29-Aug-2018 00:16:53
[2018-08-29 05:00] LABS: HEMATOCRIT 23.4 % (36.0-47.0); MEAN CORPUSCULAR HEMOGLOBIN 31.6 pg (27.0-33.4); MEAN CORPUSCULAR HGB CONC 34.4 g/dL (32.0-36.0); MEAN CORPUSCULAR VOLUME 92 fl (80-97); PLATELET COUNT 316 10^3/uL (150-450); RED BLOOD COUNT 2.55 10^6/uL (3.72-5.28); RED CELL DISTRIBUTION WIDTH 15.9 % (11.5-14.0); WHITE BLOOD COUNT 8.6 10^3/uL (4.0-10.5)
[2018-08-29 05:48] LABS: BLOOD UREA NITROGEN 30 mg/dL (7-20); CALCIUM 7.9 mg/dL (8.4-10.2); CARBON DIOXIDE 33 mmol/L (22-30); CHLORIDE 106 mmol/L (98-107); GLUCOSE 90 mg/dL (75-110); SODIUM 142.1 mmol/L (137-145)
[2018-08-29 05:52] LABS: ANION GAP 3 (5-19); POTASSIUM 3.5 mmol/L (3.6-5.0)
[2018-08-29] MEDS: PANTOPRAZOLE SODIUM 40 MG TABLET.DR PO SCH ×2 (05:59→17:26)
[2018-08-29] MEDS: HEPARIN SOD (PORCINE) 5,000 UNIT/ML 1 ML SYRINGE SUBCUT SCH ×3 (05:59→21:40)
--- NOTE | 2018-08-29 09:34 | PDOC PROGRESS REPORT ---
Subjective Progress Note for:: 08/29/18 Subjective:: 63 year old female who presented to the emergency room with a 2-week history of chest pain. She admits that over the last 2 weeks she has experienced intermittent episodes of chest pain lasting for 2 or 3 minutes per episode. She describes the chest pain as a constant, moderate, chest heaviness/tightness in the central and left aspects of her anterior chest without radiation. The chest pain occurs with all exertion/activity and is resolved by rest. She further admits to mild dyspnea accompanying the chest pain but denies any other associated or accompanying symptoms. She admits prior similar episodes that resulted in her having a cardiac stress test which was "negative" about 2 years ago. She denies identification of any additional aggravating or ameliorating factors for her chest pain. Additionally she was informed by Dr. Ramirez that her potassium was 2.5 and she should be seen in the emergency room to have this evaluated along with her chest pain. In the emergency room she was found to have a serum troponin which was 0.04 and consistent with her prior baseline troponins, and EKG which showed no evidence of acute myocardial injury or ische elina, but did demonstrate a prolonged QT interval at 0.495. The patient was also noted to have a serum potassium of 2.7. She was subsequently admitted to the hospital for further evaluation and treatment. 63-year-old female with multiple medical problems including congestive heart failure and CKD admitted with chest pains troponins are at baseline. Potassium is 2.7 she is getting potassium supplementation repeat potassium is 2.7 also to give 40 mg of potassium now and will give her 40 mg of potassium twice a day. Patient is complaining of shortness of breath on minimal walking to the rest room. X-ray shows cardiomegaly without Pulmonary edema. Acute event the last 24 hours. Urinary output is good. 08/29/[id number]-wdlp-old female with multiple medical problems including congestive heart failure CKD admitted with chest pains troponins are at baseline she also came in with hypokalemia of potassium is 2.7 today's potassium is 3.5. Hypokalemia is resolving. Patient's creatinine bumped from 1.9-2.3 it may be secondary to 80 mg of Lasix she is receiving plan is to cut down the Lasix to 40 mg daily. No complaints from the patient. Still complaining of shortness of breath with minimal activity because of the elevated creatinine unable to do the CTA of the chest plan to do the VQ scan Thursday. Reason For Visit: EXERTIONAL CHEST PAIN,MALIGNANT HYPERTENSION Physical Exam Vital Signs: Temp Pulse Resp BP Pulse Ox 98.3 F 71 20 101/82 95 08/29/18 07:10 08/29/18 07:10 08/29/18 07:10 08/29/18 07:10 08/29/18 07:10 Intake & Output 08/28/18 08/29/18 08/30/18 06:59 06:59 06:59 Intake Total 100 480 Output Total 400 0 Balance -300 480 Weight 120.6 kg 120.4 kg General appearance: PRESENT: no acute distress, cooperative, morbidly obese Head exam: PRESENT: atraumatic Eye exam: PRESENT: PERRLA Mouth exam: PRESENT: moist, tongue midline Neck exam: ABSENT: carotid bruit, JVD, lymphadenopathy, thyromegaly Respiratory exam: PRESENT: clear to auscultation vadim. ABSENT: rales, rhonchi, wheezes Cardiovascular exam: PRESENT: RRR. ABSENT: diastolic murmur, rubs, systolic mur mur GI/Abdominal exam: PRESENT: normal bowel sounds, soft. ABSENT: distended, guarding, mass, organolmegaly, rebound, tenderness Rectal exam: PRESENT: deferred Extremities exam: PRESENT: full ROM. ABSENT: calf tenderness, clubbing, pedal edema Neurological exam: PRESENT: alert, awake, oriented to person, oriented to place, oriented to time, oriented to situation, CN II-XII grossly intact. ABSENT: motor sensory deficit Psychiatric exam: PRESENT: appropriate affect, normal mood. ABSENT: homicidal ideation, suicidal ideation Results Laboratory Results: 08/29/18 04:19 08/29/18 04:19 08/29/18 08/29/18 04:19 04:19 WBC 8.6 RBC 2.55 L Hgb 8.0 L Hct 23.4 L MCV 92 MCH 31.6 MCHC 34.4 RDW 15.9 H Plt Count 316 Sodium 142.1 Potassium 3.5 L Chloride 106 Carbon Dioxide 33 H Anion Gap 3 L BUN 30 H Creatinine 2.30 H Est GFR ( Amer) 26 L Est GFR (Non-Af Amer) 21 L Glucose 90 Calcium 7.9 L Magnesium 1.6 08/27/18 08/27/18 08/27/18 16:50 16:50 16:50 Creatine Kinase 141 H CK-MB (CK-2) 1.24 Troponin I 0.041 NT-Pro-B Natriuret Pep [id number] H 08/27/18 08/27/18 08/27/18 20:00 20:00 20:00 Creatine Kinase 137 H CK-MB (CK-2) Troponin I 0.037 NT-Pro-B Natriuret Pep [id number] H 08/27/18 08/28/18 08/28/18 20:00 01:58 01:58 Creatine Kinase 133 CK-MB (CK-2) 1.06 1.47 Troponin I Cancelled 0.038 NT-Pro-B Natriuret Pep 08/28/18 08/28/18 08:15 09:43 Creatine Kinase 129 CK-MB (CK-2) 1.25 Troponin I 0.026 NT-Pro-B Natriuret Pep Impressions: Chest X-Ray 08/27/18 16:19 IMPRESSION: Cardiomegaly without pulmonary edema. Cannot exclude the airspace disease in the left base. Pneumonia versus atelectasis. Assessment and Plan - Diagnosis (1) Exertional chest pain Is this a current diagnosis for this admission?: Yes Plan: Patient will be admitted for serial cardiac enzymes and EKG evaluations. A cardiology consultation will be obtained with Dr. Rodriguez. Patient's chest pain will be treated with morphine sulfate 2 to 4 mg IV every 2 hours on a as needed basis per sliding scale. 08/28/2018-patient is still complaining of shortness of breath with minimal activity like walking to the restroom. Unable to do the CTA of the chest. Plan to do the VQ scan of the chest on Thursday. X-ray shows cardiomegaly. No pulmonary edema. 08/29/2018-patient is still complaining of shortness of breath while walking to the restroom. No complaints of chest pain. Troponins are at baseline. Chest x-ray showed cardiomegaly no pulmonary edema no pedal edema present on examination. Patient is on Lasix 80 mg p.o. daily and dose was decreased to 40 daily because creatinine bumped to 2.3 today. (2) Malignant hypertension requiring acute intensive management Is this a current diagnosis for this admission?: Yes Plan: The patient's hypertension will be managed by continuing her current antihypertensive regiment and supplementing it with hydralazine 20 mg IV every 4 hours as needed systolic blood pressure greater than 160 or diastolic blood pressure greater than 100, and metoprolol 5 mg IV every 4 hours as needed for the same indications along the medications to be given alternately every 2 hours if needed for control. Nitroglycerin paste will be applied to the patient's chest every 6 hours for additional reduction in blood pressure and reduction of her exertional chest pain. 08/28/2018-patient blood pressure today is 150/82. Well controlled. Plan to discontinue Nitropaste. Presently on Lasix 80 mg p.o. daily, hydralazine 20 mg IV every 4 as needed, metoprolol 5 mg IV every 4 as needed and she is also on Coreg, amlodipine and losartan. Plan to continue those medications. 08/29/2018-patient came in with elevated blood pressure Nitropaste was placed today's blood pressure is 151/74 plan is to continue IV hydralazine 20 mg every 4 as needed, metoprolol 5 mg IV every 4 as needed and to continue Coreg amlodipine and losartan. Lasix dose was decreased to 40 mg daily. (3) Hypokalemia Is this a current diagnosis for this admission?: Yes Plan: 08/28/2018-patient serum potassium is 2.7 on admission is 2.7 also she received Bumex 1 dose in the ER and is receiving Lasix 80 mg p.o. daily plan to give potassium 40 mg 1 dose and continue 40 mg twice daily. To check daily labs. 08/29/2018-serum potassium is 3.5 today most likely secondary to diuretic therapy patient is receiving potassium supplementation 40 mg twice a day. (4) CKD (chronic kidney disease), stage III Is this a current diagnosis for this admission?: Yes Plan: Daily metabolic profiles, magnesium levels and CBCs will be obtained as part of the management of this problem. 08/28/2018-patient has history of her CKD. On admission creatinine was 2.0 today's creatinine is 1.9. Plan is to continue to watch kidney function. Since creatinine is fluctuating between 1.8-2.2 in the recent labs. Documented urinary output is 400 mL so far. 08/29/2018-patient's creatinine today is 2.3 her baseline creatinine fluctuates between 1.8-2.2 we do not have the strict input output chart plan is to decrease the Lasix to 40 once a day. (5) Anemia, chronic disease Is this a current diagnosis for this admission?: Yes Plan: A daily CBC will be obtained as part of the ongoing management for this problem. 08/28/2018-anemia of chronic disease most likely secondary to underlying CKD. Latest hemoglobin is 8.4. Asymptomatic. 08/29/2018-patient has history of anemia of chronic disease most likely secondary to CKD plan to check for the anemia profile today. (6) Obstructive sleep apnea Is this a current diagnosis for this admission?: No (7) CHF (congestive heart failure) Qualifiers: Heart failure type: unspecified Is this a current diagnosis for this admission?: No Plan: 08/28/2018-patient has history of chronic congestive heart failure systolic in nature recent echocardiogram shows EF less than 55%. Chest x-ray shows cardiomegaly without any pulmonary edema. 32,019-patient has history of congestive heart failure EF is less than 55 most likely systolic heart failure chest x-ray shows cardiomegaly no edema on the lower extremities no edema no pedal edema was noted. - Time Time Spent with patient: 25-34 minutes Medications reviewed and adjusted accordingly: Yes Anticipated discharge: Home
[2018-08-29] MEDS: CARVEDILOL 6.25 MG TABLET PO SCH ×2 (10:01→17:26)
[2018-08-29] MEDS: GABAPENTIN 300 MG CAPSULE PO SCH ×2 (10:01→17:26)
[2018-08-29] MEDS: POTASSIUM CHLORIDE 10 MEQ CAPSULE.ER PO SCH ×2 (10:01→17:26)
[2018-08-29] MEDS: EZETIMIBE 10 MG TABLET PO SCH (10:01)
[2018-08-29] MEDS: AMLODIPINE BESYLATE 10 MG TABLET PO SCH (10:02)
[2018-08-29] MEDS: LOSARTAN POTASSIUM 50 MG TABLET PO SCH (10:02)
[2018-08-29] MEDS: ESCITALOPRAM OXALATE 10 MG TABLET PO SCH (10:02)
[2018-08-29] MEDS: DOCUSATE SODIUM 100 MG CAPSULE PO SCH ×2 (10:02→17:26)
[2018-08-29] MEDS: FUROSEMIDE 40 MG TABLET PO SCH (10:02)
[2018-08-29] MEDS: INSULIN GLARGINE,HUM.REC.ANLOG 1,000 UNIT/10 ML VIAL SUBCUT SCH ×2 (11:53→21:40)
--- NOTE | 2018-08-29 22:31 | EKG REPORT ---
SEVERITY:- ABNORMAL ECG - SINUS RHYTHM LOW VOLTAGE THROUGHOUT NONSPECIFIC T ABNORMALITIES, LATERAL LEADS BORDERLINE PROLONGED QT INTERVAL : Confirmed by: Sparkle Ingram 29-Aug-2018 22:30:56
[2018-08-30 04:47] LABS: HEMATOCRIT 22.7 % (36.0-47.0); MEAN CORPUSCULAR HEMOGLOBIN 31.8 pg (27.0-33.4); MEAN CORPUSCULAR HGB CONC 34.4 g/dL (32.0-36.0); MEAN CORPUSCULAR VOLUME 92 fl (80-97); PLATELET COUNT 291 10^3/uL (150-450); RED BLOOD COUNT 2.46 10^6/uL (3.72-5.28); RED CELL DISTRIBUTION WIDTH 15.7 % (11.5-14.0); WHITE BLOOD COUNT 8.3 10^3/uL (4.0-10.5)
[2018-08-30 04:50] LABS: HEMOGLOBIN 7.8 g/dL (12.0-15.5)
[2018-08-30 05:12] LABS: BLOOD UREA NITROGEN 33 mg/dL (7-20); CALCIUM 7.8 mg/dL (8.4-10.2); GLUCOSE 104 mg/dL (75-110); POTASSIUM 3.8 mmol/L (3.6-5.0)
[2018-08-30 05:17] LABS: CARBON DIOXIDE 31 mmol/L (22-30); CHLORIDE 105 mmol/L (98-107); SODIUM 139.6 mmol/L (137-145)
[2018-08-30 05:20] LABS: ANION GAP 4 (5-19)
[2018-08-30] MEDS: PANTOPRAZOLE SODIUM 40 MG TABLET.DR PO SCH ×2 (05:58→17:05)
[2018-08-30] MEDS: HEPARIN SOD (PORCINE) 5,000 UNIT/ML 1 ML SYRINGE SUBCUT SCH ×3 (06:04→21:22)
--- NOTE | 2018-08-30 08:51 | PDOC PROGRESS REPORT ---
Subjective Progress Note for:: 08/29/18 Subjective:: Patient was admitted with shortness of breath. However she also complained of chest pain. Patient claims she had a stress test earlier this year within the last six months, which apparently was negative. She also describes having a heart catheterization at [facility] which she claims did not show any significant disease. Patient was noted to have extremely high blood pressure. However this has come under control. Currently she has been chest pain free. Patient scheduled for a V/Q scan. Reason For Visit: EXERTIONAL CHEST PAIN,MALIGNANT HYPERTENSION Physical Exam Vital Signs: Temp Pulse Resp BP Pulse Ox 97.9 F 74 18 147/76 H 93 08/29/18 19:17 08/29/18 19:17 08/29/18 19:17 08/29/18 19:17 08/29/18 19:17 Intake & Output 08/28/18 08/29/18 08/30/18 06:59 06:59 06:59 Intake Total 100 480 829 Output Total 400 0 300 Balance -300 480 529 Weight 120.6 kg 120.4 kg Exam: GEN: NAD, patient alert oriented x3. Appearance and grooming WNL HEENT : Eyes: REZA, Ears: No significant abnormalities, Nose: No significant abnormalities. normocephalic atraumatic. Flat midface (-), Receding chin (-) ORAL : Mallampati class IV, narrow arched palate (-) Tonsils: Not enlarged. NECK: no thyromegaly, no masses, trachea is central, JVD is not elevated, carotids 2+ with bruit (-) RESP: lungs clear, no rales, wheezes or rhonchi, nonlabored, accessory muscles of respiration use (-). CV: NL S1 and S2. No significant murmurs noted, no gallop, no extra sounds, no clicks, no rub noted. GI: abd NT to palpation, no masses, bowel sounds present, no guarding or rigidity noted. EXT: no clubbing, (-) cyanosis, edema (-), perpheral pulses diminished (no) MUSC/SKEL: no acute joint swelling noted. Muscle strength is generally intact. NEURO: no significant focal neurological deficits are note, sensation grossly intact, AO x 3 PSYCH: NL mood and affect. judgment and insight noted to be intact. SKIN: (-) rash, (-)Signs of pruritus, (-) other significant abnormality Results Laboratory Results: 08/29/18 04:19 08/29/18 04:19 08/29/18 08/29/18 04:19 04:19 WBC 8.6 RBC 2.55 L Hgb 8.0 L Hct 23.4 L MCV 92 MCH 31.6 MCHC 34.4 RDW 15.9 H Plt Count 316 Sodium 142.1 Potassium 3.5 L Chloride 106 Carbon Dioxide 33 H Anion Gap 3 L BUN 30 H Creatinine 2.30 H Est GFR ( Amer) 26 L Est GFR (Non-Af Amer) 21 L Glucose 90 Calcium 7.9 L Magnesium 1.6 08/27/18 08/27/18 08/27/18 16:50 16:50 16:50 Creatine Kinase 141 H CK-MB (CK-2) 1.24 Troponin I 0.041 NT-Pro-B Natriuret Pep [id number] H 08/27/18 08/27/18 08/27/18 20:00 20:00 20:00 Creatine Kinase 137 H CK-MB (CK-2) Troponin I 0.037 NT-Pro-B Natriuret Pep 30571 H 08/27/18 08/28/18 08/28/18 20:00 01:58 01:58 Creatine Kinase 133 CK-MB (CK-2) 1.06 1.47 Troponin I Cancelled 0.038 NT-Pro-B Natriuret Pep 08/28/18 08/28/18 08:15 09:43 Creatine Kinase 129 CK-MB (CK-2) 1.25 Troponin I 0.026 NT-Pro-B Natriuret Pep EKG Comments: EKG show sinus rhythm. No acute ST-T wave changes are noted. Low voltage QRS complex frontal leads. Impressions: Chest X-Ray 08/27/18 16:19 IMPRESSION: Cardiomegaly without pulmonary edema. Cannot exclude the airspace disease in the left base. Pneumonia versus atelectasis. Assessment & Plan - Diagnosis (1) Chest pain Qualifiers: Chest pain type: unspecified Qualified Code(s): R07.9 - Chest pain, unspecified Is this a current diagnosis for this admission?: Yes (2) Coronary artery disease Qualifiers: Coronary Disease-Associated Artery/Lesion type: [place] artery Associated angina: angina presence unspecified Is this a current diagnosis for this admission?: Yes (3) Hyperlipidemia Qualifiers: Hyperlipidemia type: unspecified Qualified Code(s): E78.5 - Hyperlipidemia, unspecified Is this a current diagnosis for this admission?: Yes (4) Type 2 diabetes mellitus Qualifiers: Diabetes mellitus longterm insulin use: unspecified buttermaker insulin use status Diabetes mellitus complication status: with other specified complication Qualified Code(s): E11.69 - Type 2 diabetes mellitus with other specified complication Is this a current diagnosis for this admission?: Yes (5) CKD (chronic kidney disease) Qualifiers: Chronic kidney disease stage: stage 4 (severe) Qualified Code(s): N18.4 - Chronic kidney disease, stage 4 (severe) Is this a current diagnosis for this admission?: Yes (6) Morbid obesity with BMI of 45.0-49.9, adult Is this a current diagnosis for this admission?: Yes (7) NILO (obstructive sleep apnea) Is this a current diagnosis for this admission?: Yes - Notes Notes: Chest pain: EKG so far be negative. Patient currently chest pain free. At this point continue medical management in view of other significant comorbid trees. Severe hypertension: blood-pressure now under better control. Recommend optimising medical management. Patient has other significant comorbidities. These are being well managed by the hospitalist. We'll recommend follow-up in the office soon after discharge. - Time Time with patient: Greater than 35 minutes - Management plans discussed. Medications reviewed and adjusted accordingly: Yes
--- NOTE | 2018-08-30 09:29 | PDOC PROGRESS REPORT ---
Subjective Progress Note for:: 08/30/18 Subjective:: 63 year old female who presented to the emergency room with a 2-week history of chest pain. She admits that over the last 2 weeks she has experienced intermittent episodes of chest pain lasting for 2 or 3 minutes per episode. She describes the chest pain as a constant, moderate, chest heaviness/tightness in the central and left aspects of her anterior chest without radiation. The chest pain occurs with all exertion/activity and is resolved by rest. She further admits to mild dyspnea accompanying the chest pain but denies any other associated or accompanying symptoms. She admits prior similar episodes that resulted in her having a cardiac stress test which was "negative" about 2 years ago. She denies identification of any additional aggravating or ameliorating factors for her chest pain. Additionally she was informed by Dr. Ramirez that her potassium was 2.5 and she should be seen in the emergency room to have this evaluated along with her chest pain. In the emergency room she was found to have a serum troponin which was 0.04 and consistent with her prior baseline troponins, and EKG which showed no evidence of acute myocardial injury or ische elina, but did demonstrate a prolonged QT interval at 0.495. The patient was also noted to have a serum potassium of 2.7. She was subsequently admitted to the hospital for further evaluation and treatment. 63-year-old female with multiple medical problems including congestive heart failure and CKD admitted with chest pains troponins are at baseline. Potassium is 2.7 she is getting potassium supplementation repeat potassium is 2.7 also to give 40 mg of potassium now and will give her 40 mg of potassium twice a day. Patient is complaining of shortness of breath on minimal walking to the rest room. X-ray shows cardiomegaly without Pulmonary edema. Acute event the last 24 hours. Urinary output is good. 08/29/[id number]-cyum-old female with multiple medical problems including congestive heart failure CKD admitted with chest pains troponins are at baseline she also came in with hypokalemia of potassium is 2.7 today's potassium is 3.5. Hypokalemia is resolving. Patient's creatinine bumped from 1.9-2.3 it may be secondary to 80 mg of Lasix she is receiving plan is to cut down the Lasix to 40 mg daily. No complaints from the patient. Still complaining of shortness of breath with minimal activity because of the elevated creatinine unable to do the CTA of the chest plan to do the VQ scan Thursday. 08/30/[id number]-jczj-old female with history of congestive heart failure, chronic kidney disease admitted with chest pains. Troponins are at baseline. Cardiology consult was done Dr. Ingram thinks IA is unlikely. Patient is also admitted with hypokalemia potassium today is 3.8 hypokalemia is resolved. Because of the poor kidney functions unable to do the CTA to rule out PE she is going for VQ scan today. Reason For Visit: EXERTIONAL CHEST PAIN,MALIGNANT HYPERTENSION Physical Exam Vital Signs: Temp Pulse Resp BP Pulse Ox 97.7 F 73 16 144/70 H 91 L 08/30/18 07:34 08/30/18 07:34 08/30/18 07:34 08/30/18 07:34 08/30/18 07:34 Intake & Output 08/29/18 08/30/18 08/31/18 06:59 06:59 06:59 Intake Total 480 1294 Output Total 0 300 Balance 480 994 Weight 120.4 kg 123.2 kg General appearance: PRESENT: no acute distress, obese Head exam: PRESENT: atraumatic Eye exam: PRESENT: PERRLA Mouth exam: PRESENT: moist, tongue midline Teeth exam: PRESENT: poor dentation Neck exam: ABSENT: carotid bruit, JVD, lymphadenopathy, thyromegaly Respiratory exam: PRESENT: clear to auscultation vadim. ABSENT: rales, rhonchi, wheezes Cardiovascular exam: PRESENT: RRR. ABSENT: diastolic murmur, rubs, systolic murmur GI/Abdominal exam: PRESENT: normal bowel sounds, soft. ABSENT: distended, guarding, mass, organolmegaly, rebound, tenderness Rectal exam: PRESENT: deferred Extremities exam: PRESENT: full ROM. ABSENT: calf tenderness, clubbing, pedal edema Neurological exam: PRESENT: alert, awake, oriented to person, oriented to place, oriented to time, oriented to situation, CN II-XII grossly intact. ABSENT: motor sensory deficit Psychiatric exam: PRESENT: appropriate affect, normal mood. ABSENT: homicidal ideation, suicidal ideation Results Laboratory Results: 08/30/18 04:23 08/30/18 04:23 08/30/18 08/30/18 08/30/18 04:23 04:23 05:17 WBC 8.3 RBC 2.46 L Hgb 7.8 L Hct 22.7 L MCV 92 MCH 31.8 MCHC 34.4 RDW 15.7 H Plt Count 291 Capillary pH Cancelled Capillary pCO2 Cancelled Capillary pO2 Cancelled Capillary HCO3 Cancelled Capillary Carbonic Acd Cancelled Capill HCO3/H2CO3 Ratio Cancelled Capillary Total CO2 Cancelled Capillary Base Excess Cancelled Capillary O2 Sat Cancelled FiO2 Cancelled Sodium 139.6 Potassium 3.8 Chloride 105 Carbon Dioxide 31 H Anion Gap 4 L BUN 33 H Creatinine 2.55 H Est GFR ( Amer) 23 L Est GFR (Non-Af Amer) 19 L Glucose 104 Calcium 7.8 L Magnesium 1.6 08/27/18 08/27/18 08/27/18 16:50 16:50 16:50 Creatine Kinase 141 H CK-MB (CK-2) 1.24 Troponin I 0.041 NT-Pro-B Natriuret Pep 34305 H 08/27/18 08/27/18 08/27/18 20:00 20:00 20:00 Creatine Kinase 137 H CK-MB (CK-2) Troponin I 0.037 NT-Pro-B Natriuret Pep 25897 H 08/27/18 08/28/18 08/28/18 20:00 01:58 01:58 Creatine Kinase 133 CK-MB (CK-2) 1.06 1.47 Troponin I Cancelled 0.038 NT-Pro-B Natriuret Pep 08/28/18 08/28/18 08:15 09:43 Creatine Kinase 129 CK-MB (CK-2) 1.25 Troponin I 0.026 NT-Pro-B Natriuret Pep Impressions: Chest X-Ray 08/27/18 16:19 IMPRESSION: Cardiomegaly without pulmonary edema. Cannot exclude the airspace disease in the left base. Pneumonia versus atelectasis. Assessment and Plan - Diagnosis (1) Exertional chest pain Is this a current diagnosis for this admission?: Yes Plan: Patient will be admitted for serial cardiac enzymes and EKG evaluations. A cardiology consultation will be obtained with Dr. Rodriguez. Patient's chest pain will be treated with morphine sulfate 2 to 4 mg IV every 2 hours on a as needed basis per sliding scale. 08/28/2018-patient is still complaining of shortness of breath with minimal activity like walking to the restroom. Unable to do the CTA of the chest. Plan to do the VQ scan of the chest on Thursday. X-ray shows cardiomegaly. No pulmonary edema. 08/29/2018-patient is still complaining of shortness of breath while walking to the restroom. No complaints of chest pain. Troponins are at baseline. Chest x-ray showed cardiomegaly no pulmonary edema no pedal edema present on examination. Patient is on Lasix 80 mg p.o. daily and dose was decreased to 40 daily because creatinine bumped to 2.3 today. 08/30/2018-patient denies any chest pain since last night. Troponins are at baseline. Cardiology consult was done Dr. Hooper thought things coronary event is unlikely. (2) Malignant hypertension requiring acute intensive management Is this a current diagnosis for this admission?: Yes Plan: The patient's hypertension will be managed by continuing her current antihypertensive regiment and supplementing it with hydralazine 20 mg IV every 4 hours as needed systolic blood pressure greater than 160 or diastolic blood pressure greater than 100, and metoprolol 5 mg IV every 4 hours as needed for the same indications along the medications to be given alternately every 2 hours if needed for control. Nitroglycerin paste will be applied to the patient's chest every 6 hours for additional reduction in blood pressure and reduction of her exertional chest pain. 08/28/2018-patient blood pressure today is 150/82. Well controlled. Plan to discontinue Nitropaste. Presently on Lasix 80 mg p.o. daily, hydralazine 20 mg IV every 4 as needed, metoprolol 5 mg IV every 4 as needed and she is also on Coreg, amlodipine and losartan. Plan to continue those medications. 08/29/2018-patient came in with elevated blood pressure Nitropaste was placed today's blood pressure is 151/74 plan is to continue IV hydralazine 20 mg every 4 as needed, metoprolol 5 mg IV every 4 as needed and to continue Coreg amlodipine and losartan. Lasix dose was decreased to 40 mg daily. 08/30/[id number]-swhc-old female admitted with malignant hypertension initially Nitropaste. Blood pressures are well controlled now it is 127/66 today. Plan is to continue Coreg, amlodipine, losartan. She is also on Lasix 40 mg daily. (3) Hypokalemia Is this a current diagnosis for this admission?: Yes Plan: 08/28/2018-patient serum potassium is 2.7 on admission is 2.7 also she received Bumex 1 dose in the ER and is receiving Lasix 80 mg p.o. daily plan to give potassium 40 mg 1 dose and continue 40 mg twice daily. To check daily labs. 08/29/2018-serum potassium is 3.5 today most likely secondary to diuretic therapy patient is receiving potassium supplementation 40 mg twice a day. 08/30/2018-patient came in with hypokalemia 2.7 potassium level today is 3.8 hypokalemia is resolved. (4) CKD (chronic kidney disease), stage III Is this a current diagnosis for this admission?: Yes Plan: Daily metabolic profiles, magnesium levels and CBCs will be obtained as part of the management of this problem. 08/28/2018-patient has history of her CKD. On admission creatinine was 2.0 today's creatinine is 1.9. Plan is to continue to watch kidney function. Since creatinine is fluctuating between 1.8-2.2 in the recent labs. Documented urinary output is 400 mL so far. 08/29/2018-patient's creatinine today is 2.3 her baseline creatinine fluctuates between 1.8-2.2 we do not have the strict input output chart plan is to decrease the Lasix to 40 once a day. 08/30/2018-patient creatinine today is 2.55 continue to worsen. Yesterday diuretic was decreased to once a day. Plan is to hold her Lasix for today. (5) Anemia, chronic disease Is this a current diagnosis for this admission?: Yes Plan: A daily CBC will be obtained as part of the ongoing management for this problem. 08/28/2018-anemia of chronic disease most likely secondary to underlying CKD. Latest hemoglobin is 8.4. Asymptomatic. 08/29/2018-patient has history of anemia of chronic disease most likely secondary to CKD plan to check for the anemia profile today. 08/30/2018-patient has history of anemia of chronic disease hemoglobin is 7.8. Admission it is 9.2. (6) Obstructive sleep apnea Is this a current diagnosis for this admission?: No (7) CHF (congestive heart failure) Qualifiers: Heart failure type: unspecified Is this a current diagnosis for this admission?: No Plan: 08/28/2018-patient has history of chronic congestive heart failure systolic in nature recent echocardiogram shows EF less than 55%. Chest x-ray shows cardiomegaly without any pulmonary edema. 08/29/2018-patient has history of congestive heart failure EF is less than 55 most likely systolic heart failure chest x-ray shows cardiomegaly no edema on the lower extremities no edema no pedal edema was noted. 08/30/2018-patient has history of congestive heart failure recent echocardiogram suggestive of EF less than 55%. Chest x-ray with cardiomegaly no fluid was noticed. No pedal edema was noticed. Presently on Lasix 40 mg daily. - Time Time Spent with patient: 25-34 minutes Smoking Cessation Education: over 10 minutes Medications reviewed and adjusted accordingly: Yes Anticipated discharge: Home
--- NOTE | 2018-08-30 09:41 | RADIOLOGY REPORT (SQ) ---
EXAM DESCRIPTION: CHEST 2 VIEWS COMPLETED DATE/TIME: 08/30/2018 9:28 am REASON FOR STUDY: CP, HTN (ALSO FOR NM VQ SCAN) COMPARISON: CT abdomen pelvis 07/23/2018 Chest films 07/22/2018, 07/24/2018, 08/27/2018 EXAM PARAMETERS: NUMBER OF VIEWS: two views TECHNIQUE: Digital Frontal and Lateral radiographic views of the chest acquired. RADIATION DOSE: NA LIMITATIONS: none FINDINGS: LUNGS AND PLEURA: Minimal blunting of the right and left posterior costophrenic sulci from trace bilateral pleural effusions. No fluffy alveolar infiltrates worrisome for edema or pneumonia. No pneumothorax. MEDIASTINUM AND HILAR STRUCTURES: No masses or contour abnormalities. HEART AND VASCULAR STRUCTURES: Persistent marked cardiomegaly. There is bulging of the posterior car diac shadow port spine, which correlates with a small pericardial effusion on CT abdomen pelvis 2018. BONES: No acute findings. HARDWARE: None in the chest. OTHER: No other significant finding. IMPRESSION: Persistent cardiomegaly at least in part related to pericardial effusion. Trace pleural fluid in the posterior costophrenic sulci. No acute infiltrates TECHNICAL DOCUMENTATION: JOB ID: [id number] [employer]- All Rights Reserved Reading location - IP/workstation name: [email or web address]
[2018-08-30] MEDS: FUROSEMIDE 40 MG TABLET PO SCH (10:23)
[2018-08-30] MEDS: DOCUSATE SODIUM 100 MG CAPSULE PO SCH ×2 (10:23→17:05)
[2018-08-30] MEDS: GABAPENTIN 300 MG CAPSULE PO SCH ×2 (10:23→17:05)
[2018-08-30] MEDS: ESCITALOPRAM OXALATE 10 MG TABLET PO SCH (10:23)
[2018-08-30] MEDS: LOSARTAN POTASSIUM 50 MG TABLET PO SCH (10:23)
[2018-08-30] MEDS: EZETIMIBE 10 MG TABLET PO SCH (10:23)
[2018-08-30] MEDS: CARVEDILOL 6.25 MG TABLET PO SCH ×2 (10:24→17:06)
[2018-08-30] MEDS: AMLODIPINE BESYLATE 10 MG TABLET PO SCH (10:24)
[2018-08-30] MEDS: POTASSIUM CHLORIDE 10 MEQ CAPSULE.ER PO SCH ×2 (10:24→17:05)
--- NOTE | 2018-08-30 10:30 | RADIOLOGY REPORT (SQ) ---
EXAM DESCRIPTION: NM LUNG VENT/PERF SCAN COMPLETED DATE/TIME: 08/30/2018 10:01 am REASON FOR STUDY: CP, HTN COMPARISON: None. RADIONUCLIDE AND DOSE: 5 millicuries TC-99m MAA Intravenous 30 millicuries TC-99m DTPA Inhaled aerosol TECHNIQUE: Eight views of the lungs acquired post ventilation of DTPA aerosol. Eight matching views of the lungs acquired following injection of MAA. LIMITATIONS: None. FINDINGS: VENTILATION: Symmetric and homogeneous distribution of DTPA aerosol during ventilatory pha se. No significant areas of photopenia. PERFUSION: Perfusion images with normal homogenous activity and no wedge-shaped or segmental defects. No ventilation-perfusion mismatches. OTHER: No other significant finding. IMPRESSION: NORMAL VENTILATION-PERFUSION LUNG SCAN. NEGATIVE FOR PULMONARY EMBOLI. TECHNICAL DOCUMENTATION: JOB ID: [id number] [employer]- All Rights Reserved Reading location - IP/workstation name: [email or web address]
[2018-08-30] MEDS: INSULIN GLARGINE,HUM.REC.ANLOG 1,000 UNIT/10 ML VIAL SUBCUT SCH ×2 (10:31→21:22)
--- NOTE | 2018-08-30 13:44 | PDOC CONSULTATION ---
Consultation Consult Date: 08/30/18 Provider Consulted: Jez OSUNA Consult reason:: ISAAC ,Hypokalemia History of Present Illness Admission Date/PCP: 08/27/18 20:23 ARTI OSBORN MD History of Present Illness: FINA HERNÁNDEZ is a 63 year old female With history of long-standing diabetes mellitus, hypertension, CKD stage III/IV with a base creatinine of around 2 was admitted with history of severe hypokalemia. Along with that she then gave a history of 2 to 3-week intermittent pleuritic-like chest pain and shortness of breath on exertion of 20 yards. No history of any orthopnea but had noticed some worsening pedal edema. States tries to be compliant with diet as much as possible. No complaints of any coughing spells fever or chills. Potassium was 2.7 and she was given IV potassium replacements. Further evaluations have been done to evaluate her chest pains and shortness of breath. VQ scan done today was negative for pulmonary embolism.Labs and medications were reviewed. Past Medical History Cardiac Medical History: Reports: Hyperlipidemia, Hypertension-primary Denies: Atrial Fibrillation, Coronary Artery Disease, DVT, Myocardial Infarction, Peripheral Vascular Disease, Pulmonary Embolism Pulmonary Medical History: Reports: Sleep Apnea - Not using CPAP at home Denies: Asthma, Bronchitis, Chronic Obstructive Pulmonary Disease (COPD), Pneumonia EENT Medical History: Denies: Cataracts, Ears - Hearing aids Neurological Medical History: Denies: Hemorrhagic CVA, Ischemic CVA, Multiple Sclerosis, Seizures Endocrine Medical History: Reports: Diabetes Mellitus Type 2, Obesity Denies: Diabetes Mellitus Type 1, Hyperthyroidism, Hypothyroidism Complications of Diabetes: Reports: None Renal/ Medical History: Reports: Chronic Kidney Disease Stage III Denies: Nephrolithiasis Malignancy Medical History: Reports: None GI Medical History: Denies: Cirrhosis, Crohn's Disease, Hepatitis, Ulcerative Colitis Musculoskeltal Medical History: Reports: Arthritis Denies: Gout Skin Medical History: Denies: Eczema, Psoriasis Psychiatric Medical History: Reports: Depression Denies: Alcohol Dependency, Substance Abuse, Tobacco Dependency Traumatic Medical History: Reports: None Infectious Medical History: Reports: None Past Surgical History Past Surgical History: Reports: Cholecystectomy, Tonsillectomy, Tubal Ligation, Other - Carpal tunnel Social History Lives with: Alone Smoking Status: Never Smoker Frequency of Alcohol Use: None Hx Recreational Drug Use: No Drugs: None Hx Prescription Drug Abuse: No - Advance Directive Resuscitation Status: Full Code Family History Parental Family History Reviewed: Yes - Negative for ESRD Children Family History Reviewed: No Sibling(s) Family History Reviewed.: No Medication/Allergy Home Medications: Amlodipine Besylate [Norvasc 10 mg Tablet] 10 mg PO DAILY 08/27/18 Carvedilol [Coreg 6.25 mg Tablet] 6.25 mg PO BID 08/27/18 Cetirizine HCl [Allergy Relief] 10 mg PO DAILY 08/27/18 Escitalopram Oxalate 20 mg PO DAILY PRN 08/27/18 Ezetimibe [Zetia 10 mg Tablet] 10 mg PO DAILY 08/27/18 Fluticasone Propionate [Flonase Nasal [place] 50 Mcg/[place] 16 gm] 1 - 2 spray NASL PRN PRN 08/27/18 Furosemide [Lasix 40 mg Tablet] 80 mg PO DAILY 08/27/18 Gabapentin [Neurontin 300 mg Capsule] 900 mg PO BID 08/27/18 Insulin Glargine,Hum.rec.anlog [Lantus (Pyxis) Insulin 100 Unit/1 ml 10 ml] 35 units SQ BID 08/27/18 Lisinopril 20 mg PO DAILY 08/27/18 Mirabegron [Myrbetriq] 50 mg PO DAILY 08/27/18 Nitrofurantoin Macrocrystal [Macrodantin] 100 mg PO DAILY 08/27/18 Pantoprazole Sodium 40 mg PO DAILY 08/27/18 Tramadol HCl [Ultram 50 mg Tablet] 50 mg PO Q12H PRN 08/27/18 Allergies/Adverse Reactions: No Known Allergies Allergy (Verified 08/27/18 15:31) Review of Systems Constitutional: PRESENT: fatigue, weakness, weight gain. ABSENT: anorexia, fever(s), headache(s), night sweats Nose, Mouth, and Throat: ABSENT: headache(s), mouth pain, sore throat Cardiovascular: PRESENT: chest pain, dyspnea on exertion, edema, palpitations. ABSENT: orthropnea Respiratory: PRESENT: dyspnea. ABSENT: cough, hemoptysis Gastrointestinal: ABSENT: abdominal pain, bloating, coffee ground emesis, constipation, diarrhea, dysphagia, heartburn, hematemesis, hematochezia, nausea, vomiting Genitourinary: ABSENT: difficulty urinating, dysuria, hematuria, nocturia Musculoskeletal: ABSENT: deformity, joint swelling Integumentary: ABSENT: diaphoresis, lesions, pruritus, rash Neurological: ABSENT: abnormal movements, convulsions, focal weakness, frequent falls, lack of coordination Hematologic/Lymphatic: ABSENT: easy bleeding, easy bruising, lymphadenopathy Physical Exam Vital Signs: Temp Pulse Resp BP Pulse Ox 97.7 F 73 16 144/70 H 91 L 08/30/18 07:34 08/30/18 07:34 08/30/18 07:34 08/30/18 07:34 08/30/18 07:34 Intake & Output 08/29/18 08/30/18 08/31/18 06:59 06:59 06:59 Intake Total 480 1294 Output Total 0 300 Balance 480 994 Weight 120.4 kg 123.2 kg General appearance: PRESENT: no acute distress Eye exam: PRESENT: EOMI, PERRLA Ear exam: PRESENT: normal external ear exam Mouth exam: PRESENT: moist Teeth exam: PRESENT: edentulous Neck exam: ABSENT: lymphadenopathy, meningismus, tenderness, thyromegaly, tracheal deviation Respiratory exam: PRESENT: clear to auscultation vadim. ABSENT: crackles Cardiovascular exam: PRESENT: +S1, +S2 GI/Abdominal exam: PRESENT: normal bowel sounds, soft. ABSENT: organomegaly, tenderness Extremities exam: PRESENT: pedal edema Neurological exam: PRESENT: alert, awake, oriented to person, oriented to place Psychiatric exam: PRESENT: appropriate affect Skin exam: ABSENT: cyanosis, erythema, mottled, rash Results Laboratory Results: 08/30/18 04:23 08/30/18 04:23 08/30/18 08/30/18 08/30/18 04:23 04:23 05:17 WBC 8.3 RBC 2.46 L Hgb 7.8 L Hct 22.7 L MCV 92 MCH 31.8 MCHC 34.4 RDW 15.7 H Plt Count 291 Capillary pH Cancelled Capillary pCO2 Cancelled Capillary pO2 Cancelled Capillary HCO3 Cancelled Capillary Carbonic Acd Cancelled Capill HCO3/H2CO3 Ratio Cancelled Capillary Total CO2 Cancelled Capillary Base Excess Cancelled Capillary O2 Sat Cancelled FiO2 Cancelled Sodium 139.6 Potassium 3.8 Chloride 105 Carbon Dioxide 31 H Anion Gap 4 L BUN 33 H Creatinine 2.55 H Est GFR ( Amer) 23 L Est GFR (Non-Af Amer) 19 L Glucose 104 Calcium 7.8 L Magnesium 1.6 08/27/18 08/27/18 08/27/18 16:50 16:50 16:50 Creatine Kinase 141 H CK-MB (CK-2) 1.24 Troponin I 0.041 NT-Pro-B Natriuret Pep [id number] H 08/27/18 08/27/18 08/27/18 20:00 20:00 20:00 Creatine Kinase 137 H CK-MB (CK-2) Troponin I 0.037 NT-Pro-B Natriuret Pep [id number] H 08/27/18 08/28/18 08/28/18 20:00 01:58 01:58 Creatine Kinase 133 CK-MB (CK-2) 1.06 1.47 Troponin I Cancelled 0.038 NT-Pro-B Natriuret Pep 08/28/18 08/28/18 08:15 09:43 Creatine Kinase 129 CK-MB (CK-2) 1.25 Troponin I 0.026 NT-Pro-B Natriuret Pep Impressions: Chest X-Ray 08/30/18 00:00 IMPRESSION: Persistent cardiomegaly at least in part related to pericardial effusion. Trace pleural fluid in the posterior costophrenic sulci. No acute infiltrates Lung Scan-VQ NM 08/30/18 00:00 IMPRESSION: NORMAL VENTILATION-PERFUSION LUNG SCAN. NEGATIVE FOR PULMONARY EMBOLI. Assessment & Plan - Diagnosis (1) Hypokalemia Is this a current diagnosis for this admission?: Yes Plan: Replaced and resolved (2) Acute kidney injury superimposed on chronic kidney disease Plan: She is got ISAAC on CKD stage III/IV.Clinically she looks like in mild decompensated heart failure even though radiologically she does not show signs of that.Echocardiogram done from last month showed mild congestive heart failure with an LVEF of around 35% with mild to moderate pulmonary hypertension with an RVSP of around 45 mmHg.I would continue current lines of management. No indications for renal replacements. (3) Diabetes mellitus type 2 in obese Is this a current diagnosis for this admission?: Yes Plan: Advised tight control (4) Hypertension Plan: Lately well controlled. Monitor. See response to treatment of heart failure. (5) CHF (congestive heart failure) Qualifiers: Heart failure type: unspecified Is this a current diagnosis for this admission?: No Plan: Clinically she seems to be in mild decompensated heart failure. She is got a huge cardiomegaly and I do not see any overt signs of pericardial effusion or does she have any tamponade physiology.
--- NOTE | 2018-08-30 14:01 | Progress Note ---
Provider Note Provider Note: 08/30/2018-patient admitted with high blood pressures at least 3 readings indicates systolic blood pressure is more than 210. In my opinion patient admitted with hypertensive emergency.
[2018-08-31] MEDS: PANTOPRAZOLE SODIUM 40 MG TABLET.DR PO SCH ×2 (06:11→17:31)
[2018-08-31] MEDS: HEPARIN SOD (PORCINE) 5,000 UNIT/ML 1 ML SYRINGE SUBCUT SCH ×3 (06:12→21:53)
[2018-08-31 06:34] LABS: ABSOLUTE BASOPHILS # (AUTO) 0.1 10^3/uL (0.0-0.2); ABSOLUTE EOSINOPHILS # (AUTO) 0.1 10^3/uL (0.0-0.6); ABSOLUTE LYMPHOCYTES (AUTO) 2.7 10^3/uL (0.5-4.7); ABSOLUTE MONOCYTES (AUTO) 0.9 10^3/uL (0.1-1.4); ABSOLUTE NEUT (AUTO) 4.4 10^3/uL (1.7-8.2); ABSOLUTE RETICS # 0.057 10^6/uL (0.028-0.122); BASOPHILS % (AUTO) 0.9 % (0-2); EOSINOPHILS % (AUTO) 0.8 % (0-6); LYMPHOCYTES % (AUTO) 33.1 % (13-45); MEAN CORPUSCULAR HEMOGLOBIN 31.6 pg (27.0-33.4); MEAN CORPUSCULAR HGB CONC 33.9 g/dL (32.0-36.0); MEAN CORPUSCULAR VOLUME 93 fl (80-97); MONOCYTES % (AUTO) 10.6 % (3-13); PLATELET COUNT 279 10^3/uL (150-450); RED BLOOD COUNT 2.36 10^6/uL (3.72-5.28); RETICULOCYTE COUNT (AUTO) 2.41 % (0.66-2.85); SEGMENTED NEUTROPHILS % (AUTO) 54.6 % (42-78); TOTAL CELLS COUNTED % (AUTO) 100 %
[2018-08-31 06:38] LABS: HEMOGLOBIN 7.5 g/dL (12.0-15.5)
[2018-08-31 06:47] LABS: ALBUMIN 2.5 g/dL (3.5-5.0); ALKALINE PHOSPHATASE 72 U/L (38-126); ASPARTATE AMINO TRANSFERASE 15 U/L (14-36); BILIRUBIN,DIRECT 0.2 mg/dL (0.0-0.4); BILIRUBIN,TOTAL 0.3 mg/dL (0.2-1.3); BLOOD UREA NITROGEN 38 mg/dL (7-20); CALCIUM 7.9 mg/dL (8.4-10.2); IRON(TIBC) 54.3 ug/dL (37-170); POTASSIUM 4.3 mmol/L (3.6-5.0); TOTAL PROTEIN 4.9 g/dL (6.3-8.2)
[2018-08-31 06:48] LABS: ALANINE AMINOTRANSFERASE 21 U/L (9-52)
[2018-08-31 06:53] LABS: CARBON DIOXIDE 30 mmol/L (22-30); CHLORIDE 108 mmol/L (98-107); SODIUM 140.5 mmol/L (137-145)
[2018-08-31 07:03] LABS: ANION GAP 3 (5-19); GLUCOSE 65 mg/dL (75-110)
[2018-08-31] MEDS: POTASSIUM CHLORIDE 10 MEQ CAPSULE.ER PO SCH ×2 (08:43→17:31)
[2018-08-31] MEDS: INSULIN GLARGINE,HUM.REC.ANLOG 1,000 UNIT/10 ML VIAL SUBCUT SCH ×2 (09:54→21:53)
[2018-08-31] MEDS: GABAPENTIN 300 MG CAPSULE PO SCH ×2 (09:57→17:31)
[2018-08-31] MEDS: LOSARTAN POTASSIUM 50 MG TABLET PO SCH (09:57)
[2018-08-31] MEDS: CARVEDILOL 6.25 MG TABLET PO SCH ×2 (09:57→17:31)
[2018-08-31] MEDS: FUROSEMIDE 40 MG TABLET PO SCH (09:57)
[2018-08-31] MEDS: DOCUSATE SODIUM 100 MG CAPSULE PO SCH ×2 (09:57→17:31)
[2018-08-31] MEDS: EZETIMIBE 10 MG TABLET PO SCH (09:58)
[2018-08-31] MEDS: ESCITALOPRAM OXALATE 10 MG TABLET PO SCH (09:58)
[2018-08-31] MEDS: AMLODIPINE BESYLATE 10 MG TABLET PO SCH (09:58)
[2018-08-31] MEDS ORDERED: EPOETIN ALFA INJ 40000 UNIT/1 ML (RENAL) SUBCUT ONE (15:00)
--- NOTE | 2018-08-31 16:59 | PDOC PROGRESS REPORT ---
Subjective Progress Note for:: 08/31/18 Subjective:: Patient tells me that she is feeling much better today. She denies any chest pains no shortness of breath. She says she is eating good. Her blood pressure is well controlled. Overall she appears to be much better. Note that I saw the patient in the office on August 09, 2018. At that time the patient has significant leg edema so I increase her Lasix to 40 mg daily. At that time I also started her on carvedilol 6.25 twice a day. Her potassium for her follow-up visit came out to be low at 2.7 so we advised her to go to the emergency room and was subsequently admitted here. Patient's potassium is now within acceptable normal limits after adjusting the dose of her potassium supplements. In terms of the chest pains her troponin is at baseline. Cardiology did not think that the patient is having acute cardiac event. Her VQ scan was also negative yesterday. Overall the patient seems to be better. Reason For Visit: EXERTIONAL CHEST PAIN,MALIGNANT HYPERTENSION Physical Exam Vital Signs: Temp Pulse Resp BP Pulse Ox 97.5 F 59 L 18 110/53 L 97 08/31/18 08:23 08/31/18 08:23 08/31/18 08:23 08/31/18 08:23 08/31/18 08:23 Intake & Output 08/30/18 08/31/18 09/01/18 06:59 06:59 06:59 Intake Total 1294 1160 Output Total 300 600 Balance 994 560 Weight 123.2 kg 124.1 kg It appears that her urine output is not accurately quantified and recorded. The urine output of only 600 mL was recorded for the past 24 hours. Exam: General appearance: PRESENT: no acute distress, cooperative, well-developed, well-nourished Head exam: PRESENT: atraumatic, normocephalic Eye exam: PRESENT: conjunctiva pale, PERRLA. ABSENT: scleral icterus Neck exam: ABSENT: JVD Respiratory exam: PRESENT: Normal breath sounds. ABSENT: crackles, rales, rhonchi, unlabored, wheezes Cardiovascular exam: PRESENT: Regular rate rhythm -+S1, +S2. ABSENT: diastolic murmur, systolic murmur GI/Abdominal exam: PRESENT: normal bowel sounds, soft. ABSENT: guarding, mass, tenderness Extremities exam: Improved trace bilateral lower extremity pitting edema Neurological exam: PRESENT: alert, awake, oriented to person, place and time. Skin exam: PRESENT: dry, warm, positive pallor Cardiovascular exam: PRESENT: +S1, +S2 GI/Abdominal exam: PRESENT: normal bowel sounds, soft. ABSENT: organomegaly, tenderness Results Laboratory Results: 08/31/18 06:02 08/31/18 06:02 08/31/18 08/31/18 06:02 06:02 WBC 8.0 RBC 2.36 L Hgb 7.5 L Hct 22.0 L MCV 93 MCH 31.6 MCHC 33.9 RDW 16.0 H Plt Count 279 Seg Neutrophils % 54.6 Lymphocytes % 33.1 Monocytes % 10.6 Eosinophils % 0.8 Basophils % 0.9 Absolute Neutrophils 4.4 Absolute Lymphocytes 2.7 Absolute Monocytes 0.9 Absolute Eosinophils 0.1 Absolute Basophils 0.1 Retic Count (auto) 2.41 Absolute Retic 0.057 Sodium 140.5 Potassium 4.3 Chloride 108 H Carbon Dioxide 30 Anion Gap 3 L BUN 38 H Creatinine 2.60 H Est GFR ( Amer) 22 L Est GFR (Non-Af Amer) 18 L Glucose 65 L Calcium 7.9 L Magnesium 1.6 Iron 54.3 TIBC 222 L % Saturation 24 Ferritin 298.00 H Total Bilirubin 0.3 AST 15 ALT 21 Alkaline Phosphatase 72 Total Protein 4.9 L Albumin 2.5 L Vitamin B12 272.0 Folate 10.70 08/27/18 08/27/18 08/27/18 16:50 16:50 16:50 Creatine Kinase 141 H CK-MB (CK-2) 1.24 Troponin I 0.041 NT-Pro-B Natriuret Pep [id number] H 08/27/18 08/27/18 08/27/18 20:00 20:00 20:00 Creatine Kinase 137 H CK-MB (CK-2) Troponin I 0.037 NT-Pro-B Natriuret Pep [id number] H 08/27/18 08/28/18 08/28/18 20:00 01:58 01:58 Creatine Kinase 133 CK-MB (CK-2) 1.06 1.47 Troponin I Cancelled 0.038 NT-Pro-B Natriuret Pep 08/28/18 08/28/18 08/31/18 08:15 09:43 06:02 Creatine Kinase 129 CK-MB (CK-2) 1.25 Troponin I 0.026 NT-Pro-B Natriuret Pep 3730 H Impressions: Chest X-Ray 08/30/18 00:00 IMPRESSION: Persistent cardiomegaly at least in part related to pericardial effusion. Trace pleural fluid in the posterior costophrenic sulci. No acute infiltrates Lung Scan-VQ NM 08/30/18 00:00 IMPRESSION: NORMAL VENTILATION-PERFUSION LUNG SCAN. NEGATIVE FOR PULMONARY EMBOLI. Assessment & Plan - Diagnosis (1) Acute kidney injury superimposed on chronic kidney disease Is this a current diagnosis for this admission?: Yes Plan: Patient's creatinine is mildly increased compared to yesterday but not significantly worse. I think patient may be establishing a new baseline kidney function with the increase in the Lasix dose recently. Clinically the patient appears to be better. Continue current management. Patient does not need any acute renal replacement therapy at this point. Continue to monitor kidney function while the patient is here in the hospital. (2) Exertional chest pain Is this a current diagnosis for this admission?: Yes Plan: No cardiac event per cardiology. VQ scan is negative. Currently chest pain- free. (3) Hypokalemia Is this a current diagnosis for this admission?: Yes Plan: Resolved with adjusting the dose of potassium supplements. (4) Anemia, chronic disease Is this a current diagnosis for this admission?: Yes Plan: Patient has good iron stores. We will give the patient a dose of Procrit today. Check stool for occult blood. (5) Diastolic CHF Qualifiers: Heart failure chronicity: chronic Qualified Code(s): I50.32 - Chronic diastolic (congestive) heart failure Is this a current diagnosis for this admission?: Yes Plan: Seems clinically improved. (6) Diabetes mellitus type 2 in obese Is this a current diagnosis for this admission?: Yes (7) Hypertension Is this a current diagnosis for this admission?: Yes Plan: Improvement currently well controlled. - Time Time with patient: 15-25 minutes
--- NOTE | 2018-08-31 17:32 | PDOC PROGRESS REPORT ---
Subjective Progress Note for:: 08/31/18 Subjective:: 08/31: Assumed care today. Reviewed chart and course. This is a 63-year-old female with a past medical history of CHF and CKD who presented with exertional chest mary and S OB. On presentation, she was noted to have acute renal failure and hypokalemia. She had a VQ scan which was negative. Chest x-ray showed cardiomegaly. Her EKGs and troponins were also cycled. Patient reportedly had a cath last year which was unrevealing. She was also evaluated by cardiology and nephrology. No acute event overnight. This morning, she appears comfortable. She says she feels better and that her shortness of breath has improved. She denies chest pain. Noted that patient had moderate pericardial effusion on review of CT results in June 2018. Reason For Visit: EXERTIONAL CHEST PAIN,MALIGNANT HYPERTENSION Physical Exam Vital Signs: Temp Pulse Resp BP Pulse Ox 97.5 F 74 18 110/53 L 97 08/31/18 08:23 08/31/18 14:00 08/31/18 08:23 08/31/18 08:23 08/31/18 08:23 Intake & Output 08/30/18 08/31/18 09/01/18 06:59 06:59 06:59 Intake Total 1294 1160 Output Total 300 600 Balance 994 560 Weight 271 lb 9.752 oz 273 lb 9.498 oz General appearance: PRESENT: no acute distress, well-developed, well-nourished Head exam: PRESENT: atraumatic, normocephalic Eye exam: PRESENT: conjunctiva pink, EOMI, PERRLA. ABSENT: scleral icterus Ear exam: PRESENT: normal external ear exam Mouth exam: PRESENT: moist, tongue midline Neck exam: ABSENT: carotid bruit, JVD, lymphadenopathy, thyromegaly Respiratory exam: PRESENT: rhonchi. ABSENT: rales, wheezes Cardiovascular exam: PRESENT: RRR. ABSENT: diastolic murmur, rubs, systolic murmur Pulses: PRESENT: normal dorsalis pedis pul GI/Abdominal exam: PRESENT: normal bowel sounds, soft. ABSENT: distended, guarding, mass, organolmegaly, rebound, tenderness Rectal exam: PRESENT: deferred Extremities exam: PRESENT: +1 edema Neurological exam: PRESENT: alert, awake, oriented to person, oriented to place, oriented to time, oriented to situation, CN II-XII grossly intact. ABSENT: motor sensory deficit Results Laboratory Results: 08/31/18 06:02 08/31/18 06:02 08/31/18 08/31/18 06:02 06:02 WBC 8.0 RBC 2.36 L Hgb 7.5 L Hct 22.0 L MCV 93 MCH 31.6 MCHC 33.9 RDW 16.0 H Plt Count 279 Seg Neutrophils % 54.6 Lymphocytes % 33.1 Monocytes % 10.6 Eosinophils % 0.8 Basophils % 0.9 Absolute Neutrophils 4.4 Absolute Lymphocytes 2.7 Absolute Monocytes 0.9 Absolute Eosinophils 0.1 Absolute Basophils 0.1 Retic Count (auto) 2.41 Absolute Retic 0.057 Sodium 140.5 Potassium 4.3 Chloride 108 H Carbon Dioxide 30 Anion Gap 3 L BUN 38 H Creatinine 2.60 H Est GFR ( Amer) 22 L Est GFR (Non-Af Amer) 18 L Glucose 65 L Calcium 7.9 L Magnesium 1.6 Iron 54.3 TIBC 222 L % Saturation 24 Ferritin 298.00 H Total Bilirubin 0.3 AST 15 ALT 21 Alkaline Phosphatase 72 Total Protein 4.9 L Albumin 2.5 L Vitamin B12 272.0 Folate 10.70 08/27/18 08/27/18 08/27/18 16:50 16:50 16:50 Creatine Kinase 141 H CK-MB (CK-2) 1.24 Troponin I 0.041 NT-Pro-B Natriuret Pep [id number] H 08/27/18 08/27/18 08/27/18 20:00 20:00 20:00 Creatine Kinase 137 H CK-MB (CK-2) Troponin I 0.037 NT-Pro-B Natriuret Pep [id number] H 08/27/18 08/28/18 08/28/18 20:00 01:58 01:58 Creatine Kinase 133 CK-MB (CK-2) 1.06 1.47 Troponin I Cancelled 0.038 NT-Pro-B Natriuret Pep 08/28/18 08/28/18 08/31/18 08:15 09:43 06:02 Creatine Kinase 129 CK-MB (CK-2) 1.25 Troponin I 0.026 NT-Pro-B Natriuret Pep 3730 H Impressions: Chest X-Ray 08/30/18 00:00 IMPRESSION: Persistent cardiomegaly at least in part related to pericardial effusion. Trace pleural fluid in the posterior costophrenic sulci. No acute infiltrates Lung Scan-VQ NM 08/30/18 00:00 IMPRESSION: NORMAL VENTILATION-PERFUSION LUNG SCAN. NEGATIVE FOR PULMONARY EMBOLI. Assessment and Plan - Diagnosis (1) Chest pain Qualifiers: Chest pain type: unspecified Qualified Code(s): R07.9 - Chest pain, unspecified Is this a current diagnosis for this admission?: Yes Plan: Troponin peaked at 0.03. Noted patient was also in acute renal failure. EKG does not show ischemic changes. Cardiology following. Upon review previous images, patient did have pericardial effusion on CT in June 2018. Will reassess this with noncontrast chest CT. (2) Hypokalemia Is this a current diagnosis for this admission?: Yes Plan: Likely furosemide-induced. Resolved. On scheduled PO potassium 40 meqs BID. (3) Acute kidney injury superimposed on chronic kidney disease Is this a current diagnosis for this admission?: Yes Plan: Nephrology following. Creatinine trended up today. Repeat BMP tomorrow. (4) Coronary artery disease Qualifiers: Coronary Disease-Associated Artery/Lesion type: [place] artery Associated angina: angina presence unspecified Is this a current diagnosis for this admission?: Yes Plan: Stable. Continue aspirin and statin. (5) Diabetes mellitus type 2 in obese Is this a current diagnosis for this admission?: Yes Plan: Hba1c at 7.8. She did have low sugars in the 60s. Currently on Lantus 35 units twice daily. Decrease Lantus to 10 units twice daily for now especially that creatinine is trending up. (6) Hypertension Qualifiers: Hypertension type: essential hypertension Qualified Code(s): I10 - Essential (primary) hypertension Is this a current diagnosis for this admission?: Yes Plan: Blood pressure is at goal. Continue Coreg, amlodipine and losartan. (7) CHF (congestive heart failure) Qualifiers: Heart failure type: unspecified Is this a current diagnosis for this admission?: Yes Plan: Diastolic heart failure. Recent echo showed slightly low normal EF with grade 1 diastolic dysfunction. On Lasix 40 mg daily. (8) Anemia Is this a current diagnosis for this admission?: Yes Plan: Hemoglobin trended down to 7.5. No clinical signs of bleeding. FOBT ordered by nephrology. Repeat CBC tomorrow morning. - Time Time Spent with patient: 25-34 minutes
--- NOTE | 2018-08-31 19:50 | PDOC PROGRESS REPORT ---
Subjective Progress Note for:: 08/30/18 Subjective:: Patient was admitted with shortness of breath. However she also complained of chest pain. Patient claims she had a stress test earlier this year within the last six months, which apparently was negative. She also describes having a heart catheterization at [facility] which she claims did not show any significant disease. Patient was noted to have extremely high blood pressure. However this has come under control. Currently she has been chest pain free. Patient scheduled for a V/Q scan. August 30, VQ scan came back negative. Patient continues to have shortness of breath. Previous echocardiogram results were reviewed. It actually shows that patient LVEF relatively well preserved. No significant valvular abnormalities were noted. Reason For Visit: EXERTIONAL CHEST PAIN,MALIGNANT HYPERTENSION Physical Exam Vital Signs: Temp Pulse Resp BP Pulse Ox 98.0 F 71 16 152/72 H 99 08/30/18 15:19 08/30/18 15:19 08/30/18 15:19 08/30/18 15:19 08/30/18 15:19 Intake & Output 08/29/18 08/30/18 08/31/18 06:59 06:59 06:59 Intake Total 480 1294 660 Output Total 0 300 600 Balance 480 994 60 Weight 120.4 kg 123.2 kg Exam: GENERAL: well-nourished and in no acute distress. Alert and oriented x3 HEAD: Atraumatic, normocephalic. EYES: REZA, sclera anicteric, conjunctiva are normal. ENT: Moist mucous membranes. No oral ulcerations or bleeding gums noted. No obvious ear, nose or throat abnormalities noted. NECK: supple without lymphadenopathy. Trachea is central. No cervical or axillary lymphadenopathy noted. Carotids are 2+, JVD WNL LUNGS: Breath sounds clear bilaterally. No wheezes rales or rhonchi noted. No significant dullness noted on percussion. CHEST: Palpation of the chest wall shows no significant chest wall tenderness. 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 ABDOMEN: Soft, no significant tenderness appreciated, normoactive bowel sounds. No guarding, no rebound. No rigidity noted . No masses appreciated. EXTREMITIES: Pedal pulses are 1-2+, no calf tenderness noted. No clubbing or cyanosis. 1+ pedal edema noted NEUROLOGICAL: Focused neurological exam showed no significant neurologic deficit. Normal speech, no focal weakness appreciated. PSYCH: Normal mood, normal affect. Judgment and insight within normal limits. SKIN: No significant ecchymosis, skin is noted to be warm. MUSCULOSKELETAL EXAM: No significant acute joint swelling noted. Results Laboratory Results: 08/30/18 04:23 08/30/18 04:23 08/30/18 08/30/18 08/30/18 04:23 04:23 05:17 WBC 8.3 RBC 2.46 L Hgb 7.8 L Hct 22.7 L MCV 92 MCH 31.8 MCHC 34.4 RDW 15.7 H Plt Count 291 Capillary pH Cancelled Capillary pCO2 Cancelled Capillary pO2 Cancelled Capillary HCO3 Cancelled Capillary Carbonic Acd Cancelled Capill HCO3/H2CO3 Ratio Cancelled Capillary Total CO2 Cancelled Capillary Base Excess Cancelled Capillary O2 Sat Cancelled FiO2 Cancelled Sodium 139.6 Potassium 3.8 Chloride 105 Carbon Dioxide 31 H Anion Gap 4 L BUN 33 H Creatinine 2.55 H Est GFR ( Amer) 23 L Est GFR (Non-Af Amer) 19 L Glucose 104 Calcium 7.8 L Magnesium 1.6 08/27/18 08/27/18 08/27/18 16:50 16:50 16:50 Creatine Kinase 141 H CK-MB (CK-2) 1.24 Troponin I 0.041 NT-Pro-B Natriuret Pep [id number] H 08/27/18 08/27/18 08/27/18 20:00 20:00 20:00 Creatine Kinase 137 H CK-MB (CK-2) Troponin I 0.037 NT-Pro-B Natriuret Pep [id number] H 08/27/18 08/28/18 08/28/18 20:00 01:58 01:58 Creatine Kinase 133 CK-MB (CK-2) 1.06 1.47 Troponin I Cancelled 0.038 NT-Pro-B Natriuret Pep 08/28/18 08/28/18 08:15 09:43 Creatine Kinase 129 CK-MB (CK-2) 1.25 Troponin I 0.026 NT-Pro-B Natriuret Pep EKG Comments: Telemetry shows patient maintaining sinus rhythm. No sustained tachycardia or bradycardia arrhythmias were noted. Impressions: Chest X-Ray 08/30/18 00:00 IMPRESSION: Persistent cardiomegaly at least in part related to pericardial effusion. Trace pleural fluid in the posterior costophrenic sulci. No acute infiltrates Lung Scan-VQ NM 08/30/18 00:00 IMPRESSION: NORMAL VENTILATION-PERFUSION LUNG SCAN. NEGATIVE FOR PULMONARY EMBOLI. Assessment & Plan - Diagnosis (1) Chest pain Qualifiers: Chest pain type: unspecified Qualified Code(s): R07.9 - Chest pain, unspecified Is this a current diagnosis for this admission?: Yes (2) Coronary artery disease Qualifiers: Coronary Disease-Associated Artery/Lesion type: [place] artery Associated angina: angina presence unspecified Is this a current diagnosis for this admission?: Yes (3) Hyperlipidemia Qualifiers: Hyperlipidemia type: unspecified Qualified Code(s): E78.5 - Hyperlipidemia, unspecified Is this a current diagnosis for this admission?: Yes (4) Type 2 diabetes mellitus Qualifiers: 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: unspecified long wall shear operator insulin use status Diabetes mellitus complication status: with other specified complication Qualified Code(s): E11.69 - Type 2 diabetes mellitus with other specified complication Is this a current diagnosis for this admission?: Yes (5) CKD (chronic kidney disease) Qualifiers: Chronic kidney disease stage: stage 4 (severe) Qualified Code(s): N18.4 - Chronic kidney disease, stage 4 (severe) Is this a current diagnosis for this admission?: Yes (6) Morbid obesity with BMI of 45.0-49.9, adult Is this a current diagnosis for this admission?: Yes (7) NILO (obstructive sleep apnea) Is this a current diagnosis for this admission?: Yes - Notes Notes: Cardiac catheterization findings were reviewed. Showed no significant CAD except for a 50% disease on previous cardiac cath. Patient has significant renal dysfunction. Repeat cardiac catheterization is not being considered at this point unless patient develops objective signs of ischemia. Patient could well be mild Sunil volume overloaded based on chest x-ray but patient is quite obese and therefore could be a false finding. Did not find JVP elevation or any crackles on lung exam. At this point continue conservative management with good control of blood pressure, patient would benefit from increasing activities. Patient should continue nightly positive pressure noninvasive ventilation therapy. Patient had other significant comorbidities which are being well taken care of by the hospitalist. - Time Time with patient: Greater than 35 minutes - More than 50% of the time spent coordinating care, discussing management plans with involved caregivers. Management plans discussed with involved personnels. Medical decision making was of moderate to high complexity, patient's has multiple comorbidities. Medications reviewed and adjusted accordingly: Yes
--- NOTE | 2018-08-31 20:03 | PDOC PROGRESS REPORT ---
Subjective Progress Note for:: 08/31/18 Subjective:: Patient was admitted with shortness of breath. However she also complained of chest pain. Patient claims she had a stress test earlier this year within the last six months, which apparently was negative. She also describes having a heart catheterization at [facility] which she claims did not show any significant disease. Patient was noted to have extremely high blood pressure. However this has come under control. Currently she has been chest pain free. Patient scheduled for a V/Q scan. August 30, VQ scan came back negative. Patient continues to have shortness of breath. Previous echocardiogram results were reviewed. It actually shows that patient LVEF relatively well preserved. No significant valvular abnormalities were noted. August 31, patient remains stable from cardiac standpoint. No chest pain. She remains short of breath however this is multifactorial. At rest she is not short of breath. She is short of breath on exertion. Patient probably very deconditioned. Reason For Visit: EXERTIONAL CHEST PAIN,MALIGNANT HYPERTENSION Physical Exam Vital Signs: Temp Pulse Resp BP Pulse Ox 97.5 F 74 18 110/53 L 97 08/31/18 08:23 08/31/18 14:00 08/31/18 08:23 08/31/18 08:23 08/31/18 08:23 Intake & Output 08/30/18 08/31/18 09/01/18 06:59 06:59 06:59 Intake Total 1294 1160 760 Output Total 300 600 2 Balance 994 560 758 Weight 123.2 kg 124.1 kg Exam: GENERAL: well-nourished and in no acute distress. Alert and oriented x3 HEAD: Atraumatic, normocephalic. EYES: REZA, sclera anicteric, conjunctiva are normal. ENT: Moist mucous membranes. No oral ulcerations or bleeding gums noted. No obvious ear, nose or throat abnormalities noted. NECK: supple without lymphadenopathy. Trachea is central. No cervical or axillary lymphadenopathy noted. Carotids are 2+, JVD WNL LUNGS: Breath sounds clear bilaterally. No wheezes rales or rhonchi noted. No significant dullness noted on percussion. CHEST: Palpation of the chest wall shows no significant chest wall tenderness. 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 ABDOMEN: Soft, no significant tenderness appreciated, normoactive bowel sounds. No guarding, no rebound. No rigidity noted . No masses appreciated. EXTREMITIES: Pedal pulses are 1-2+, no calf tenderness noted. No clubbing or cyanosis. Trace to 1+ pedal edema noted NEUROLOGICAL: Focused neurological exam showed no significant neurologic deficit. Normal speech, no focal weakness appreciated. PSYCH: Normal mood, normal affect. Judgment and insight within normal limits. SKIN: No significant ecchymosis, skin is noted to be warm. MUSCULOSKELETAL EXAM: No significant acute joint swelling noted. Results Laboratory Results: 08/31/18 06:02 08/31/18 06:02 08/31/18 08/31/18 06:02 06:02 WBC 8.0 RBC 2.36 L Hgb 7.5 L Hct 22.0 L MCV 93 MCH 31.6 MCHC 33.9 RDW 16.0 H Plt Count 279 Seg Neutrophils % 54.6 Lymphocytes % 33.1 Monocytes % 10.6 Eosinophils % 0.8 Basophils % 0.9 Absolute Neutrophils 4.4 Absolute Lymphocytes 2.7 Absolute Monocytes 0.9 Absolute Eosinophils 0.1 Absolute Basophils 0.1 Retic Count (auto) 2.41 Absolute Retic 0.057 Sodium 140.5 Potassium 4.3 Chloride 108 H Carbon Dioxide 30 Anion Gap 3 L BUN 38 H Creatinine 2.60 H Est GFR ( Amer) 22 L Est GFR (Non-Af Amer) 18 L Glucose 65 L Calcium 7.9 L Magnesium 1.6 Iron 54.3 TIBC 222 L % Saturation 24 Ferritin 298.00 H Total Bilirubin 0.3 AST 15 ALT 21 Alkaline Phosphatase 72 Total Protein 4.9 L Albumin 2.5 L Vitamin B12 272.0 Folate 10.70 08/27/18 08/27/18 08/27/18 16:50 16:50 16:50 Creatine Kinase 141 H CK-MB (CK-2) 1.24 Troponin I 0.041 NT-Pro-B Natriuret Pep [id number] H 08/27/18 08/27/18 08/27/18 20:00 20:00 20:00 Creatine Kinase 137 H CK-MB (CK-2) Troponin I 0.037 NT-Pro-B Natriuret Pep [id number] H 08/27/18 08/28/18 08/28/18 20:00 01:58 01:58 Creatine Kinase 133 CK-MB (CK-2) 1.06 1.47 Troponin I Cancelled 0.038 NT-Pro-B Natriuret Pep 08/28/18 08/28/18 08/31/18 08:15 09:43 06:02 Creatine Kinase 129 CK-MB (CK-2) 1.25 Troponin I 0.026 NT-Pro-B Natriuret Pep 3730 H Impressions: Chest X-Ray 08/30/18 00:00 IMPRESSION: Persistent cardiomegaly at least in part related to pericardial effusion. Trace pleural fluid in the posterior costophrenic sulci. No acute infiltrates Lung Scan-VQ NM 08/30/18 00:00 IMPRESSION: NORMAL VENTILATION-PERFUSION LUNG SCAN. NEGATIVE FOR PULMONARY EMBOLI. Assessment & Plan - Diagnosis (1) Chest pain Qualifiers: Chest pain type: unspecified Qualified Code(s): R07.9 - Chest pain, unspecified Is this a current diagnosis for this admission?: Yes (2) Coronary artery disease Qualifiers: Coronary Disease-Associated Artery/Lesion type: [place] artery Associated angina: angina presence unspecified Is this a current diagnosis for this admission?: Yes (3) Hyperlipidemia Qualifiers: Hyperlipidemia type: unspecified Qualified Code(s): E78.5 - Hyperlipidemia, unspecified Is this a current diagnosis for this admission?: Yes (4) Type 2 diabetes mellitus Qualifiers: Diabetes mellitus 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 insulin use: unspecified shelter insulin use status Diabetes mellitus complication status: with other specified complication Qualified Code(s): E11.69 - Type 2 diabetes mellitus with other specified complication Is this a current diagnosis for this admission?: Yes (5) CKD (chronic kidney disease) Qualifiers: Chronic kidney disease stage: stage 4 (severe) Qualified Code(s): N18.4 - Chronic kidney disease, stage 4 (severe) Is this a current diagnosis for this admission?: Yes (6) Morbid obesity with BMI of 45.0-49.9, adult Is this a current diagnosis for this admission?: Yes (7) NILO (obstructive sleep apnea) Is this a current diagnosis for this admission?: Yes - Notes Notes: Recommendations are same from before. Would recommend OT PT consultation, rehab for this patient who seems quite deconditioned. Continue with other current management plans. Patient also noted to be very anemic with hemoglobin than 7.5. Consider blood transfusion to try to maintain hemoglobin above 8 to 9 g%. - Time Time with patient: Greater than 35 minutes - Medical decision making was of moderate to high complexity, patient's has multiple comorbidities.
[2018-09-01 05:21] LABS: ABSOLUTE BASOPHILS # (AUTO) 0.1 10^3/uL (0.0-0.2); ABSOLUTE EOSINOPHILS # (AUTO) 0.1 10^3/uL (0.0-0.6); ABSOLUTE LYMPHOCYTES (AUTO) 2.7 10^3/uL (0.5-4.7); ABSOLUTE MONOCYTES (AUTO) 0.9 10^3/uL (0.1-1.4); ABSOLUTE NEUT (AUTO) 4.3 10^3/uL (1.7-8.2); BASOPHILS % (AUTO) 1.3 % (0-2); EOSINOPHILS % (AUTO) 0.7 % (0-6); HEMATOCRIT 22.1 % (36.0-47.0); LYMPHOCYTES % (AUTO) 33.8 % (13-45); MEAN CORPUSCULAR HEMOGLOBIN 31.9 pg (27.0-33.4); MEAN CORPUSCULAR HGB CONC 34.3 g/dL (32.0-36.0); MEAN CORPUSCULAR VOLUME 93 fl (80-97); MONOCYTES % (AUTO) 11.1 % (3-13); PLATELET COUNT 283 10^3/uL (150-450); RED BLOOD COUNT 2.37 10^6/uL (3.72-5.28); RED CELL DISTRIBUTION WIDTH 15.7 % (11.5-14.0); SEGMENTED NEUTROPHILS % (AUTO) 53.1 % (42-78); TOTAL CELLS COUNTED % (AUTO) 100 %; WHITE BLOOD COUNT 8.1 10^3/uL (4.0-10.5)
[2018-09-01 05:30] LABS: HEMOGLOBIN 7.6 g/dL (12.0-15.5)
[2018-09-01 05:31] LABS: BLOOD UREA NITROGEN 40 mg/dL (7-20); CALCIUM 7.9 mg/dL (8.4-10.2); CHLORIDE 107 mmol/L (98-107); GLUCOSE 108 mg/dL (75-110)
[2018-09-01 05:37] LABS: CARBON DIOXIDE 29 mmol/L (22-30); SODIUM 138.7 mmol/L (137-145)
[2018-09-01 05:42] LABS: ANION GAP 3 (5-19)
[2018-09-01] MEDS: PANTOPRAZOLE SODIUM 40 MG TABLET.DR PO SCH ×2 (06:37→18:12)
[2018-09-01] MEDS: HEPARIN SOD (PORCINE) 5,000 UNIT/ML 1 ML SYRINGE SUBCUT SCH ×3 (06:37→22:09)
[2018-09-01] MEDS: POTASSIUM CHLORIDE 10 MEQ CAPSULE.ER PO SCH (08:43)
--- NOTE | 2018-09-01 09:14 | RADIOLOGY REPORT (SQ) ---
EXAM DESCRIPTION: CT CHEST WITHOUT COMPLETED DATE/TIME: 09/01/2018 8:11 am REASON FOR STUDY: assess for pericardial effusion,pleural eff COMPARISON: CT angio chest 02/07/2018 Chest films 08/30/2018, 08/27/2018, 07/24/2018, 07/22/2018 TECHNIQUE: CT scan performed of the chest without intravenous contrast. Images reviewed with lung, soft tissue and bone windows. Reconstructed coronal and sagittal MPR images reviewed. All images st ored on PACS. All CT scanners at this facility use dose modulation, iterative reconstruction, and/or weight based d osing when appropriate to reduce radiation dose to as low as reasonably achievable (ALARA). [facility]: Dose Right [facility]: CareDose [facility]: Dose Right [facility]: Teradose 4D [facility]: Smart [employer] RADIATION DOSE: CT Rad equipment meets quality standard of care and radiation dose reduction techniq ues were employed. CTDIvol: 19.3 mGy. DLP: 636 mGy-cm. mGy. LIMITATIONS: No technical limitations. FINDINGS: LUNGS AND PLEURA: Trace bilateral pleural effusions are present right greater than left. This is similar compared to CT 02/07/2018. There is minimal bibasilar atelectasis in the posterior costophrenic sulci. Remainder of the lungs d emonstrate trace fluid in the major and minor fissure, thickened interlobular septa from mild interst itial edema. No pneumothorax. HILAR AND MEDIASTINAL STRUCTURES: No identified masses or abnormal nodes. No obvious aneurysm. HEART AND VASCULAR STRUCTURES: Stable marked cardiomegaly. There is a moderate pericardial effusion, best shown on sagittal reconstruction images 44 through 58, and coronal image 49. UPPER ABDOMEN: Post cholecystectomy. This is more prominent than on 02/07/2018. THYROID AND OTHER SOFT TISSUES: No masses. No adenopathy. BONES: No significant finding. HARDWARE: None in the chest. OTHER: No other significant findings. IMPRESSION: Trace bilateral pleural effusions are present, right greater than left. Similar compare d to 02/07/2018. Moderate pericardial effusion, increased compared to 02/07/2018. Mild interstitial pulmonary edema TECHNICAL DOCUMENTATION: JOB ID: [id number] Quality ID # [id number]: Final reports with documentation of one or more dose reduction techniques (e.g., Au tomated exposure control, adjustment of the mA and/or kV according to patient size, use of iterative reconstruction technique) 2010 [employer]- All Rights Reserved Reading location - IP/workstation name: [email or web address]
[2018-09-01 09:34] LABS: ABSOLUTE RETICS # 0.058 10^6/uL (0.028-0.122); RETICULOCYTE COUNT (AUTO) 2.45 % (0.66-2.85)
[2018-09-01 09:52] LABS: IRON(TIBC) 55.2 ug/dL (37-170)
[2018-09-01] MEDS: INSULIN GLARGINE,HUM.REC.ANLOG 1,000 UNIT/10 ML VIAL SUBCUT SCH ×2 (10:24→22:09)
[2018-09-01] MEDS: EZETIMIBE 10 MG TABLET PO SCH (10:27)
[2018-09-01] MEDS: LOSARTAN POTASSIUM 50 MG TABLET PO SCH (10:28)
[2018-09-01] MEDS: FUROSEMIDE 40 MG TABLET PO SCH (10:28)
[2018-09-01] MEDS: GABAPENTIN 300 MG CAPSULE PO SCH ×2 (10:28→18:12)
[2018-09-01] MEDS: ESCITALOPRAM OXALATE 10 MG TABLET PO SCH (10:28)
[2018-09-01] MEDS: AMLODIPINE BESYLATE 10 MG TABLET PO SCH (10:28)
[2018-09-01] MEDS: DOCUSATE SODIUM 100 MG CAPSULE PO SCH ×2 (10:28→18:12)
[2018-09-01] MEDS: CARVEDILOL 6.25 MG TABLET PO SCH ×2 (10:28→18:12)
[2018-09-01] MEDS: INSULIN LISPRO 100 UNIT/ML 3 ML VIAL SUBCUT SCH ×3 (11:43→22:08)
[2018-09-01] MEDS ORDERED: NORMAL SALINE 250 ML IV PRN ×2 (14:12)
--- NOTE | 2018-09-01 14:20 | PDOC PROGRESS REPORT ---
Subjective Progress Note for:: 09/01/18 Subjective:: 08/31: Assumed care today. Reviewed chart and course. This is a 63-year-old female with a past medical history of CHF and CKD who presented with exertional chest pain and SOB. On presentation, she was noted to have acute renal failure and hypokalemia. She had a VQ scan which was negative. Chest x-ray showed cardiomegaly. Her EKGs and troponins were also cycled. Patient reportedly had a cath last year which was unrevealing. She was also evaluated by cardiology and nephrology. This morning, she appears comfortable. She says she feels better and that her shortness of breath has improved. She denies chest pain. Noted that patient had moderate pericardial effusion on review of CT results in June 2018. 09/01: No acute event overnight. She continues to improve although she says that she got short of breath and a little winded when she went to the bathroom. She denies chest pain. Reviewed cath report done in January 2017 in [facility] which did not show obstructive CAD. Her hemoglobin did trend down to 7.6. Chest CT showed moderate pericardial effusion. Discussed with cardiology. She is hemodynamically stable. No compelling indication for pericardiocentesis or repeat echo. This will be followed up outpatient by Dr. Ingram. Will transfuse a unit of packed RBC as her anemia may be contributing to her shortness of breath and deconditioning. Reason For Visit: EXERTIONAL CHEST PAIN,MALIGNANT HYPERTENSION Physical Exam Vital Signs: Temp Pulse Resp BP Pulse Ox 98.5 F 69 17 117/53 L 87 L 09/01/18 07:30 09/01/18 07:30 09/01/18 07:30 09/01/18 07:30 09/01/18 07:30 Intake & Output 08/31/18 09/01/18 09/02/18 06:59 06:59 06:59 Intake Total 1160 1140 Output Total 600 802 Balance 560 338 Weight 273 lb 9.498 oz 276 lb 10.882 oz General appearance: PRESENT: no acute distress, well-developed, well-nourished Head exam: PRESENT: atraumatic, normocephalic Eye exam: PRESENT: conjunctiva pink, EOMI, PERRLA. ABSENT: scleral icterus Ear exam: PRESENT: normal external ear exam Mouth exam: PRESENT: moist, tongue midline Neck exam: ABSENT: carotid bruit, JVD, lymphadenopathy, thyromegaly Respiratory exam: PRESENT: rhonchi. ABSENT: rales, wheezes Cardiovascular exam: PRESENT: RRR. ABSENT: diastolic murmur, rubs, systolic murmur Pulses: PRESENT: normal dorsalis pedis pul GI/Abdominal exam: PRESENT: normal bowel sounds, soft. ABSENT: distended, guarding, mass, organolmegaly, rebound, tenderness Rectal exam: PRESENT: deferred Extremities exam: PRESENT: +1 edema Neurological exam: PRESENT: alert, awake, oriented to person, oriented to place, oriented to time, oriented to situation, CN II-XII grossly intact. ABSENT: motor sensory deficit Results Laboratory Results: 09/01/18 04:20 09/01/18 04:20 09/01/18 09/01/18 09/01/18 04:20 04:20 04:20 WBC 8.1 RBC 2.37 L Hgb 7.6 L Hct 22.1 L MCV 93 MCH 31.9 MCHC 34.3 RDW 15.7 H Plt Count 283 Seg Neutrophils % 53.1 Lymphocytes % 33.8 Monocytes % 11.1 Eosinophils % 0.7 Basophils % 1.3 Absolute Neutrophils 4.3 Absolute Lymphocytes 2.7 Absolute Monocytes 0.9 Absolute Eosinophils 0.1 Absolute Basophils 0.1 Retic Count (auto) 2.45 Absolute Retic 0.058 Sodium 138.7 Potassium 5.0 Chloride 107 Carbon Dioxide 29 Anion Gap 3 L BUN 40 H Creatinine 2.69 H Est GFR ( Amer) 21 L Est GFR (Non-Af Amer) 18 L Glucose 108 Calcium 7.9 L Iron TIBC % Saturation Ferritin Vitamin B12 Folate Stool Occult Blood 09/01/18 09/01/18 04:20 09:18 WBC RBC Hgb Hct MCV MCH MCHC RDW Plt Count Seg Neutrophils % Lymphocytes % Monocytes % Eosinophils % Basophils % Absolute Neutrophils Absolute Lymphocytes Absolute Monocytes Absolute Eosinophils Absolute Basophils Retic Count (auto) Absolute Retic Sodium Potassium Chloride Carbon Dioxide Anion Gap BUN Creatinine Est GFR ( Amer) Est GFR (Non-Af Amer) Glucose Calcium Iron 55.2 TIBC 219 L % Saturation 25 Ferritin 303.00 H Vitamin B12 244.0 Folate 10.10 Stool Occult Blood NEGATIVE 08/27/18 08/27/18 08/27/18 16:50 16:50 16:50 Creatine Kinase 141 H CK-MB (CK-2) 1.24 Troponin I 0.041 NT-Pro-B Natriuret Pep [id number] H 08/27/18 08/27/18 08/27/18 20:00 20:00 20:00 Creatine Kinase 137 H CK-MB (CK-2) Troponin I 0.037 NT-Pro-B Natriuret Pep [id number] H 08/27/18 08/28/18 08/28/18 20:00 01:58 01:58 Creatine Kinase 133 CK-MB (CK-2) 1.06 1.47 Troponin I Cancelled 0.038 NT-Pro-B Natriuret Pep 08/28/18 08/28/18 08/31/18 08:15 09:43 06:02 Creatine Kinase 129 CK-MB (CK-2) 1.25 Troponin I 0.026 NT-Pro-B Natriuret Pep 3730 H Impressions: Chest X-Ray 08/30/18 00:00 IMPRESSION: Persistent cardiomegaly at least in part related to pericardial effusion. Trace pleural fluid in the posterior costophrenic sulci. No acute infiltrates Lung Scan-VQ NM 08/30/18 00:00 IMPRESSION: NORMAL VENTILATION-PERFUSION LUNG SCAN. NEGATIVE FOR PULMONARY EMBOLI. Chest CT 09/01/18 08:00 IMPRESSION: Trace bilateral pleural effusions are present, right greater than left. Similar compared to 02/07/2018. Moderate pericardial effusion, increased compared to 02/07/2018. Mild interstitial pulmonary edema Assessment and Plan - Diagnosis (1) Pericardial effusion Is this a current diagnosis for this admission?: Yes Plan: 09/01: Reviewed cath report done in January 2017 at [facility] which did not show obstructive CAD. Her hemoglobin did trend down to 7.6. Chest CT showed moderate pericardial effusion. Discussed with cardiology. She is hemodynamically stable. No compelling indication for pericardiocentesis or repeat echo. This will be followed up outpatient by Dr. Ingram. (2) Anemia Is this a current diagnosis for this admission?: Yes Plan: 08/31: Hemoglobin trended down to 7.5. No clinical signs of bleeding. FOBT ordered by nephrology. Repeat CBC tomorrow morning. 09/01: FOBT negative. No other clinical signs of bleeding. May be related to her CKD. Will transfuse a unit of packed RBC as her anemia may be contributing to her deconditioning and exertional shortness of breath. (3) Chest pain Qualifiers: Chest pain type: unspecified Qualified Code(s): R07.9 - Chest pain, unspecified Is this a current diagnosis for this admission?: Yes Plan: Resolved. 08/31: Troponin peaked at 0.03. Noted patient was also in acute renal failure. EKG does not show ischemic changes. Cardiology following. Upon review of previous images, patient did have pericardial effusion on CT in June 2018. Will reassess this with noncontrast chest CT. 09/01: Reviewed cath report done in January 2017 at [facility] which did not show obstructive CAD. Her hemoglobin did trend down to 7.6. Chest CT showed moderate pericardial effusion. Discussed with cardiology. She is hemodynamically stable. No compelling indication for pericardiocentesis or repeat echo. This will be followed up outpatient by Dr. Ingram. Will transfuse a unit of packed RBC as her anemia may be contributing to her shortness of breath and deconditioning. (4) Hypokalemia Is this a current diagnosis for this admission?: Yes Plan: Likely furosemide-induced. Resolved. On scheduled PO potassium 40 meqs BID. (5) Acute kidney injury superimposed on chronic kidney disease Is this a current diagnosis for this admission?: Yes Plan: Nephrology following. Creatinine trending up. Repeat BMP tomorrow. (6) Coronary artery disease Qualifiers: Coronary Disease-Associated Artery/Lesion type: [place] artery Associated angina: angina presence unspecified Is this a current diagnosis for this admission?: Yes Plan: Stable. Continue aspirin and statin. (7) Diabetes mellitus type 2 in obese Is this a current diagnosis for this admission?: Yes Plan: 08/31: Hba1c at 7.8. She did have low sugars in the 60s. Currently on Lantus 35 units twice daily. Decrease Lantus to 10 units twice daily for now especially that creatinine is trending up. 09/01: Lantus was decreased to 10 units twice daily yesterday however she continued to have low sugars in the 70s overnight. We will hold off on Lantus for now. Continue sliding scale. (8) Hypertension Qualifiers: Hypertension type: essential hypertension Qualified Code(s): I10 - E ssential (primary) hypertension Is this a current diagnosis for this admission?: Yes Plan: Blood pressure is at goal. Continue Coreg, amlodipine and losartan. (9) CHF (congestive heart failure) Qualifiers: Heart failure type: unspecified Is this a current diagnosis for this admission?: Yes Plan: Diastolic heart failure. Recent echo showed slightly low normal EF with grade 1 diastolic dysfunction. On Lasix 40 mg daily.
[2018-09-01] MEDS ORDERED: FUROSEMIDE INJ/PF 20 MG/2 ML SDV IV SCH (15:00)
--- NOTE | 2018-09-01 15:45 | PDOC PROGRESS REPORT ---
Subjective Progress Note for:: 09/01/18 Subjective:: Patient was sitting up on the edge of her bed. She claims to be about the same as yesterday. She still requires oxygen through out the day. At home she normally only requires it at night. She claims that the chest pain went away. She denies N/V. She currently is having diarrhea for which it is being tested. Reason For Visit: EXERTIONAL CHEST PAIN,MALIGNANT HYPERTENSION Physical Exam Vital Signs: Temp Pulse Resp BP Pulse Ox 98.5 F 69 17 117/53 L 87 L 09/01/18 07:30 09/01/18 07:30 09/01/18 07:30 09/01/18 07:30 09/01/18 07:30 Intake & Output 08/31/18 09/01/18 09/02/18 06:59 06:59 06:59 Intake Total 1160 1140 260 Output Total 600 802 700 Balance 560 338 -440 Weight 124.1 kg 125.5 kg General appearance: PRESENT: no acute distress, well-developed, well-nourished, other - -on O2 via NC Mouth exam: PRESENT: moist, neck supple Neck exam: ABSENT: JVD, tracheal deviation Respiratory exam: PRESENT: crackles - -bases, decreased breath sounds - -bases. ABSENT: accessory muscle use, rales, rhonchi, wheezes Cardiovascular exam: PRESENT: +S1 - -diminishe, +S2 - -diminished GI/Abdominal exam: PRESENT: normal bowel sounds, soft. ABSENT: organomegaly, tenderness Extremities exam: PRESENT: +1 edema. ABSENT: tenderness, +2 edema Musculoskeletal exam: PRESENT: normal inspection. ABSENT: tenderness Neurological exam: PRESENT: alert, awake, oriented to person, oriented to place, oriented to time, oriented to situation Psychiatric exam: PRESENT: appropriate affect, normal mood Skin exam: PRESENT: dry, intact, warm Results Laboratory Results: 09/01/18 04:20 09/01/18 04:20 09/01/18 09/01/18 09/01/18 04:20 04:20 04:20 WBC 8.1 RBC 2.37 L Hgb 7.6 L Hct 22.1 L MCV 93 MCH 31.9 MCHC 34.3 RDW 15.7 H Plt Count 283 Seg Neutrophils % 53.1 Lymphocytes % 33.8 Monocytes % 11.1 Eosinophils % 0.7 Basophils % 1.3 Absolute Neutrophils 4.3 Absolute Lymphocytes 2.7 Absolute Monocytes 0.9 Absolute Eosinophils 0.1 Absolute Basophils 0.1 Retic Count (auto) 2.45 Absolute Retic 0.058 Sodium 138.7 Potassium 5.0 Chloride 107 Carbon Dioxide 29 Anion Gap 3 L BUN 40 H Creatinine 2.69 H Est GFR ( Amer) 21 L Est GFR (Non-Af Amer) 18 L Glucose 108 Calcium 7.9 L Iron TIBC % Saturation Ferritin Vitamin B12 Folate Stool Occult Blood 09/01/18 09/01/18 04:20 09:18 WBC RBC Hgb Hct MCV MCH MCHC RDW Plt Count Seg Neutrophils % Lymphocytes % Monocytes % Eosinophils % Basophils % Absolute Neutrophils Absolute Lymphocytes Absolute Monocytes Absolute Eosinophils Absolute Basophils Retic Count (auto) Absolute Retic Sodium Potassium Chloride Carbon Dioxide Anion Gap BUN Creatinine Est GFR ( Amer) Est GFR (Non-Af Amer) Glucose Calcium Iron 55.2 TIBC 219 L % Saturation 25 Ferritin 303.00 H Vitamin B12 244.0 Folate 10.10 Stool Occult Blood NEGATIVE 08/27/18 08/27/18 08/27/18 16:50 16:50 16:50 Creatine Kinase 141 H CK-MB (CK-2) 1.24 Troponin I 0.041 NT-Pro-B Natriuret Pep [id number] H 08/27/18 08/27/18 08/27/18 20:00 20:00 20:00 Creatine Kinase 137 H CK-MB (CK-2) Troponin I 0.037 NT-Pro-B Natriuret Pep [id number] H 08/27/18 08/28/18 08/28/18 20:00 01:58 01:58 Creatine Kinase 133 CK-MB (CK-2) 1.06 1.47 Troponin I Cancelled 0.038 NT-Pro-B Natriuret Pep 08/28/18 08/28/18 08/31/18 08:15 09:43 06:02 Creatine Kinase 129 CK-MB (CK-2) 1.25 Troponin I 0.026 NT-Pro-B Natriuret Pep 3730 H Impressions: Chest X-Ray 08/30/18 00:00 IMPRESSION: Persistent cardiomegaly at least in part related to pericardial effusion. Trace pleural fluid in the posterior costophrenic sulci. No acute infiltrates Lung Scan-VQ NM 08/30/18 00:00 IMPRESSION: NORMAL VENTILATION-PERFUSION LUNG SCAN. NEGATIVE FOR PULMONARY EMBOLI. Chest CT 09/01/18 08:00 IMPRESSION: Trace bilateral pleural effusions are present, right greater than left. Similar compared to 02/07/2018. Moderate pericardial effusion, increased compared to 02/07/2018. Mild interstitial pulmonary edema Assessment & Plan - Diagnosis (1) Acute kidney injury superimposed on chronic kidney disease Is this a current diagnosis for this admission?: Yes Plan: Looks to be stable. After talking with Dr. Ramirez, who follows her as outpatient, she believes that she might be at a new baseline with her creatinine. New baseline looks to be from 2.3 to 2.6. Urine output continues to slowly increase everyday. (2) Hypokalemia Is this a current diagnosis for this admission?: Yes Plan: will look to hold potassium supplements for today due to a potassium of 5.0. (3) Anemia Is this a current diagnosis for this admission?: Yes Plan: She received 40,000 units of procrit yesterday. No indication for iron. (4) Exertional chest pain Is this a current diagnosis for this admission?: Yes Plan: currently no having chest pain but was found to have a pericardial infusion that was larger since the last time it was seen. 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 Verduzco
[2018-09-01] MEDS ORDERED: FUROSEMIDE INJ/PF 20 MG/2 ML SDV IV PRN (21:05)
[2018-09-01 22:43] LABS: HEMATOCRIT 25.4 % (36.0-47.0); HEMOGLOBIN 8.6 g/dL (12.0-15.5); MEAN CORPUSCULAR HEMOGLOBIN 31.5 pg (27.0-33.4); MEAN CORPUSCULAR HGB CONC 33.9 g/dL (32.0-36.0); MEAN CORPUSCULAR VOLUME 93 fl (80-97); PLATELET COUNT 281 10^3/uL (150-450); RED BLOOD COUNT 2.74 10^6/uL (3.72-5.28); RED CELL DISTRIBUTION WIDTH 16.5 % (11.5-14.0); WHITE BLOOD COUNT 9.4 10^3/uL (4.0-10.5)
[2018-09-02] MEDS: PANTOPRAZOLE SODIUM 40 MG TABLET.DR PO SCH (05:26)
[2018-09-02] MEDS: HEPARIN SOD (PORCINE) 5,000 UNIT/ML 1 ML SYRINGE SUBCUT SCH (05:26)
[2018-09-02] MEDS: INSULIN LISPRO 100 UNIT/ML 3 ML VIAL SUBCUT SCH (09:01)
[2018-09-02] MEDS: INSULIN GLARGINE,HUM.REC.ANLOG 1,000 UNIT/10 ML VIAL SUBCUT SCH (10:02)
[2018-09-02] MEDS: CARVEDILOL 6.25 MG TABLET PO SCH (10:09)
[2018-09-02] MEDS: FUROSEMIDE 40 MG TABLET PO SCH (10:09)
[2018-09-02] MEDS: LOSARTAN POTASSIUM 50 MG TABLET PO SCH (10:09)
[2018-09-02] MEDS: EZETIMIBE 10 MG TABLET PO SCH (10:09)
[2018-09-02] MEDS: ESCITALOPRAM OXALATE 10 MG TABLET PO SCH (10:09)
[2018-09-02] MEDS: AMLODIPINE BESYLATE 10 MG TABLET PO SCH (10:09)
[2018-09-02] MEDS: GABAPENTIN 300 MG CAPSULE PO SCH (10:09)
[2018-09-02] MEDS: DOCUSATE SODIUM 100 MG CAPSULE PO SCH (10:09)
[2018-09-02 10:17] LABS: ANION GAP 6 (5-19); BLOOD UREA NITROGEN 43 mg/dL (7-20); CALCIUM 8.8 mg/dL (8.4-10.2); CARBON DIOXIDE 28 mmol/L (22-30); CHLORIDE 105 mmol/L (98-107); GLUCOSE 93 mg/dL (75-110); POTASSIUM 5.2 mmol/L (3.6-5.0); SODIUM 139.2 mmol/L (137-145)
[2018-09-02 10:42] VITALS: BP 141/60
--- NOTE | 2018-09-02 17:10 | PDOC DISCHARGE SUMMARY ---
General - Admit/Disc Date/PCP Admission Date/Primary Care Provider: 08/27/18 20:23 ARTI OSBORN MD Discharge Date: 09/02/18 - Discharge Diagnosis (1) Pericardial effusion Is this a current diagnosis for this admission?: Yes (2) Anemia Is this a current diagnosis for this admission?: Yes (3) Chest pain Is this a current diagnosis for this admission?: Yes (4) Hypokalemia Is this a current diagnosis for this admission?: Yes (5) Acute kidney injury superimposed on chronic kidney disease Is this a current diagnosis for this admission?: Yes (6) Coronary artery disease Is this a current diagnosis for this admission?: Yes (7) Diabetes mellitus type 2 in obese Is this a current diagnosis for this admission?: Yes (8) Hypertension Is this a current diagnosis for this admission?: Yes (9) CHF (congestive heart failure) Is this a current diagnosis for this admission?: Yes - Additional Information Resuscitation Status: Full Code Prescriptions: Gabapentin [Neurontin 300 mg Capsule] 300 mg PO BID #20 capsule Insulin Glargine,Hum.rec.anlog [Lantus (Pyxis) Insulin 100 Unit/1 ml 10 ml] 10 units SQ QHS #1 unit Potassium Chloride 20 meq PO BID #60 tablet.er Home Medications: Amlodipine Besylate [Norvasc 10 mg Tablet] 10 mg PO DAILY 08/27/18 Carvedilol [Coreg 6.25 mg Tablet] 6.25 mg PO BID 08/27/18 Cetirizine HCl [Allergy Relief] 10 mg PO DAILY 08/27/18 Escitalopram Oxalate 20 mg PO DAILY PRN 08/27/18 Ezetimibe [Zetia 10 mg Tablet] 10 mg PO DAILY 08/27/18 Fluticasone Propionate [Flonase Nasal [place] 50 Mcg/[place] 16 gm] 1 - 2 spray NASL PRN PRN 08/27/18 Furosemide [Lasix 40 mg Tablet] 80 mg PO DAILY 08/27/18 Lisinopril 20 mg PO DAILY 08/27/18 Mirabegron [Myrbetriq] 50 mg PO DAILY 08/27/18 Nitrofurantoin Macrocrystal [Macrodantin] 100 mg PO DAILY 08/27/18 Pantoprazole Sodium 40 mg PO DAILY 08/27/18 Tramadol HCl [Ultram 50 mg Tablet] 50 mg PO Q12H PRN 08/27/18 Gabapentin [Neurontin 300 mg Capsule] 300 mg PO BID #20 capsule 09/02/18 Insulin Glargine,Hum.rec.anlog [Lantus (Pyxis) Insulin 100 Unit/1 ml 10 ml] 10 units SQ QHS #1 unit 09/02/18 Potassium Chloride 20 meq PO BID #60 tablet.er 09/02/18 History of Present Illness History of Present Illness: Admitting hospitalist's H&P: FINA HERNÁNDEZ is a 63 year old female who presented to the emergency room with a 2-week history of chest pain. She admits that over the last 2 weeks she has experienced intermittent episodes of chest pain lasting for 2 or 3 minutes per episode. She describes the chest pain as a constant, moderate, chest heaviness/tightness in the central and left aspects of her anterior chest without radiation. The chest pain occurs with all exertion/activity and is resolved by rest. She further admits to mild dyspnea accompanying the chest pain but denies any other associated or accompanying symptoms. She admits prior similar episodes that resulted in her having a cardiac stress test which was "negative" about 2 years ago. She denies identification of any additional aggravating or ameliorating factors for her chest pain. Additionally she was informed by Dr. Osborn that her potassium was 2.5 and she should be seen in the emergency room to have this evaluated along with her chest pain. In the emergency room she was found to have a serum troponin which was 0.04 and consistent with her prior baseline troponins, and EKG which showed no evidence of acute myocardial injury or ischemia, but did demonstrate a prolonged QT interval at 0.495. The patient was also noted to have a serum potassium of 2.7. She was subsequently admitted to the hospital for further evaluation and treatment. Hospital Course Hospital Course: This is a 63-year-old female with a past medical history of diastolic CHF (patient of Dr. Ingram) and CKD who presented with exertional chest pain and SOB. On presentation, she was noted to have acute renal failure and severe hypokalemia. She developed hypokalemia after a recent increase in her Lasix outpatient. She had a VQ scan which was negative. Chest x-ray showed cardiomegaly. Her EKGs and troponins were also cycled. Patient reportedly had a cath at [facility] in January 2017 which did not show obstructive CAD. She was also evaluated by cardiology and nephrology. She was given Potassium replacements and was started on KCL PO 40 meqs bid. 09/01: No acute event overnight. She continues to improve although she says that she got short of breath and a little winded when she went to the bathroom. She denies chest pain. Reviewed cath report done in January 2017 in [facility] which did not show obstructive CAD. Her hemoglobin did trend down to 7.6. Her anemia is likely related to her CKD. FOBT was negative. Chest CT showed moderate pericardial effusion (chronic). Discussed with cardiology. She is hemodynamically stable. No compelling indication for pericardiocentesis or need for repeat echo. She was transfused a unit of packed RBC as her anemia may be contributing to her shortness of breath and deconditioning. Blood transfusion resolved her exertional dyspnea and she returned to her baseline. Her Hba1c came back at 7.8. She did have low sugars in the 60s. She on Lantus 35 units twice daily. This was reduced due to hypoglycemic episodes to 10 u HS. She will be discharged and continued on Lasix. Potassium supplements were also decreased deu to her Potassium trending up. She will be discharged only on a short curse of 10 meqs PO KCl and will need a repeat BMP while on Lasix upon ff- up with PCP. Physical Exam Vital Signs: Temp Pulse Resp BP Pulse Ox 98.0 F 73 20 141/60 H 96 09/02/18 10:41 09/02/18 10:41 09/02/18 10:41 09/02/18 10:41 09/02/18 10:41 Intake & Output 09/01/18 09/02/18 09/03/18 06:59 06:59 06:59 Intake Total 1140 1030 Output Total 802 2600 Balance 338 -1570 Weight 276 lb 10.882 oz 274 lb 11.135 oz 274 lb 11.135 oz Results Laboratory Results: 09/01/18 22:26 09/02/18 09:28 09/01/18 09/01/18 09/02/18 14:42 22:26 09:28 WBC 9.4 RBC 2.74 L Hgb 8.6 L Hct 25.4 L MCV 93 MCH 31.5 MCHC 33.9 RDW 16.5 H Plt Count 281 Sodium 139.2 Potassium 5.2 H Chloride 105 Carbon Dioxide 28 Anion Gap 6 BUN 43 H Creatinine 2.52 H Est GFR ( Amer) 23 L Est GFR (Non-Af Amer) 19 L Glucose 93 Calcium 8.8 Blood Type O NEGATIVE Antibody Screen NEGATIVE 08/27/18 08/27/18 08/27/18 16:50 16:50 16:50 Creatine Kinase 141 H CK-MB (CK-2) 1.24 Troponin I 0.041 NT-Pro-B Natriuret Pep [id number] H 08/27/18 08/27/18 08/27/18 20:00 20:00 20:00 Creatine Kinase 137 H CK-MB (CK-2) Troponin I 0.037 NT-Pro-B Natriuret Pep [id number] H 08/27/18 08/28/18 08/28/18 20:00 01:58 01:58 Creatine Kinase 133 CK-MB (CK-2) 1.06 1.47 Troponin I Cancelled 0.038 NT-Pro-B Natriuret Pep 08/28/18 08/28/18 08/31/18 08:15 09:43 06:02 Creatine Kinase 129 CK-MB (CK-2) 1.25 Troponin I 0.026 NT-Pro-B Natriuret Pep 3730 H Impressions: Chest X-Ray 08/30/18 00:00 IMPRESSION: Persistent cardiomegaly at least in part related to pericardial effusion. Trace pleural fluid in the posterior costophrenic sulci. No acute infiltrates Lung Scan-VQ NM 08/30/18 00:00 IMPRESSION: NORMAL VENTILATION-PERFUSION LUNG SCAN. NEGATIVE FOR PULMONARY EMBOLI. Chest CT 09/01/18 08:00 IMPRESSION: Trace bilateral pleural effusions are present, right greater than left. Similar compared to 02/07/2018. Moderate pericardial effusion, increased compared to 02/07/2018. Mild interstitial pulmonary edema Qualifiers - * PATIENT BEING DISCHARGED WITH ANY OF THE FOLLOWING DIAGNOSIS: No Acute Heart Failure - Is this a Heart Failure Patient?: No
--- NOTE | 2018-09-03 14:04 | PDOC PROGRESS REPORT ---
Subjective Progress Note for:: 09/01/18 Subjective:: Patient was admitted with shortness of breath. However she also complained of chest pain. Patient claims she had a stress test earlier this year within the last six months, which apparently was negative. She also describes having a heart catheterization at [facility] which she claims did not show any significant disease. Patient was noted to have extremely high blood pressure. However this has come under control. Currently she has been chest pain free. Patient scheduled for a V/Q scan. August 30, VQ scan came back negative. Patient continues to have shortness of breath. Previous echocardiogram results were reviewed. It actually shows that patient LVEF relatively well preserved. No significant valvular abnormalities were noted. August 31, patient remains stable from cardiac standpoint. No chest pain. She remains short of breath however this is multifactorial. At rest she is not short of breath. She is short of breath on exertion. Patient probably very deconditioned. September 01, patient had a CT chest which showed moderate pericardial effusion. Patient however noted to be stable without any significant dyspnea or hypotension. Clinically does not seem to be in tamponade. Repeat blood count shows anemia of 7.6 hemoglobin Reason For Visit: EXERTIONAL CHEST PAIN,MALIGNANT HYPERTENSION Physical Exam Vital Signs: Temp Pulse Resp BP Pulse Ox 97.7 F 58 L 16 146/61 H 100 09/01/18 12:13 09/01/18 12:13 09/01/18 12:13 09/01/18 12:13 09/01/18 12:13 Intake & Output 08/31/18 09/01/18 09/02/18 06:59 06:59 06:59 Intake Total 1160 1140 260 Output Total 600 802 700 Balance 560 338 -440 Weight 124.1 kg 125.5 kg Exam: GENERAL: well-nourished and in no acute distress. Alert and oriented x3 HEAD: Atraumatic, normocephalic. EYES: REZA, sclera anicteric, conjunctiva are normal. ENT: Moist mucous membranes. No oral ulcerations or bleeding gums noted. No obvious ear, nose or throat abnormalities noted. NECK: supple without lymphadenopathy. Trachea is central. No cervical or axil eufemia lymphadenopathy noted. Carotids are 2+, JVD WNL LUNGS: Breath sounds clear bilaterally. No wheezes rales or rhonchi noted. No significant dullness noted on percussion. CHEST: Palpation of the chest wall shows no significant chest wall tenderness. 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 ABDOMEN: Soft, no significant tenderness appreciated, normoactive bowel sounds. No guarding, no rebound. No rigidity noted . No masses appreciated. EXTREMITIES: Pedal pulses are 1-2+, no calf tenderness noted. No clubbing or cyanosis. Trace pedal edema noted NEUROLOGICAL: Focused neurological exam showed no significant neurologic defici t. Normal speech, no focal weakness appreciated. PSYCH: Normal mood, normal affect. Judgment and insight within normal limits. SKIN: No significant ecchymosis, skin is noted to be warm. MUSCULOSKELETAL EXAM: No significant acute joint swelling noted. Results Laboratory Results: 09/01/18 04:20 09/01/18 04:20 09/01/18 09/01/18 09/01/18 04:20 04:20 04:20 WBC 8.1 RBC 2.37 L Hgb 7.6 L Hct 22.1 L MCV 93 MCH 31.9 MCHC 34.3 RDW 15.7 H Plt Count 283 Seg Neutrophils % 53.1 Lymphocytes % 33.8 Monocytes % 11.1 Eosinophils % 0.7 Basophils % 1.3 Absolute Neutrophils 4.3 Absolute Lymphocytes 2.7 Absolute Monocytes 0.9 Absolute Eosinophils 0.1 Absolute Basophils 0.1 Retic Count (auto) 2.45 Absolute Retic 0.058 Sodium 138.7 Potassium 5.0 Chloride 107 Carbon Dioxide 29 Anion Gap 3 L BUN 40 H Creatinine 2.69 H Est GFR ( Amer) 21 L Est GFR (Non-Af Amer) 18 L Glucose 108 Calcium 7.9 L Iron TIBC % Saturation Ferritin Vitamin B12 Folate Stool Occult Blood Blood Type Antibody Screen 09/01/18 09/01/18 09/01/18 04:20 09:18 14:42 WBC RBC Hgb Hct MCV MCH MCHC RDW Plt Count Seg Neutrophils % Lymphocytes % Monocytes % Eosinophils % Basophils % Absolute Neutrophils Absolute Lymphocytes Absolute Monocytes Absolute Eosinophils Absolute Basophils Retic Count (auto) Absolute Retic Sodium Potassium Chloride Carbon Dioxide Anion Gap BUN Creatinine Est GFR ( Amer) Est GFR (Non-Af Amer) Glucose Calcium Iron 55.2 TIBC 219 L % Saturation 25 Ferritin 303.00 H Vitamin B12 244.0 Folate 10.10 Stool Occult Blood NEGATIVE Blood Type O NEGATIVE Antibody Screen NEGATIVE 08/27/18 08/27/18 08/27/18 16:50 16:50 16:50 Creatine Kinase 141 H CK-MB (CK-2) 1.24 Troponin I 0.041 NT-Pro-B Natriuret Pep [id number] H 08/27/18 08/27/18 08/27/18 20:00 20:00 20:00 Creatine Kinase 137 H CK-MB (CK-2) Troponin I 0.037 NT-Pro-B Natriuret Pep [id number] H 08/27/18 08/28/18 08/28/18 20:00 01:58 01:58 Creatine Kinase 133 CK-MB (CK-2) 1.06 1.47 Troponin I Cancelled 0.038 NT-Pro-B Natriuret Pep 08/28/18 08/28/18 08/31/18 08:15 09:43 06:02 Creatine Kinase 129 CK-MB (CK-2) 1.25 Troponin I 0.026 NT-Pro-B Natriuret Pep 3730 H Impressions: Chest X-Ray 08/30/18 00:00 IMPRESSION: Persistent cardiomegaly at least in part related to pericardial effusion. Trace pleural fluid in the posterior costophrenic sulci. No acute infiltrates Lung Scan-VQ NM 08/30/18 00:00 IMPRESSION: NORMAL VENTILATION-PERFUSION LUNG SCAN. NEGATIVE FOR PULMONARY EMBOLI. Chest CT 09/01/18 08:00 IMPRESSION: Trace bilateral pleural effusions are present, right greater than left. Similar compared to 02/07/2018. Moderate pericardial effusion, increased compared to 02/07/2018. Mild interstitial pulmonary edema Assessment & Plan - Diagnosis (1) Chest pain Qualifiers: Chest pain type: unspecified Qualified Code(s): R07.9 - Chest pain, unspecified Is this a current diagnosis for this admission?: Yes (2) Coronary artery disease Qualifiers: Coronary Disease-Associated Artery/Lesion type: [place] artery Associated angina: angina presence unspecified Is this a current diagnosis for this admission?: Yes (3) Hyperlipidemia Qualifiers: Hyperlipidemia type: unspecified Qualified Code(s): E78.5 - Hyperlipidemia, unspecified Is this a current diagnosis for this admission?: Yes (4) Type 2 diabetes mellitus Qualifiers: Diabetes mellitus mcfp insulin use: unspecified 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 Diabetes mellitus complication status: with other specified complication Qualified Code(s): E11.69 - Type 2 diabetes mellitus with other specified complication Is this a current diagnosis for this admission?: Yes (5) CKD (chronic kidney disease) Qualifiers: Chronic kidney disease stage: stage 4 (severe) Qualified Code(s): N18.4 - Chronic kidney disease, stage 4 (severe) Is this a current diagnosis for this admission?: Yes (6) Morbid obesity with BMI of 45.0-49.9, adult Is this a current diagnosis for this admission?: Yes (7) NILO (obstructive sleep apnea) Is this a current diagnosis for this admission?: Yes (8) Pericardial effusion Is this a current diagnosis for this admission?: Yes - Notes Notes: Patient noted to have moderate pericardial effusion. Sometimes there is overestimation of pericardial effusion by CT scan. A 2D echocardiogram has been ordered but clinically patient does not seem to be in tamponade. Pericardial effusion could be related to uremia and patient may need early dialysis rather than late. Agree with blood transfusion to keep hemoglobin above 8 to 9 g%. - Time Time with patient: Greater than 35 minutes Medications reviewed and adjusted accordingly: Yes
== END 2018-09-02 12:21 | disposition home or self-care (01) | DRG 641 ==
LOC: ER 15:27 → OBSVTOIN 20:23 → EH 20:23 → 3W 23:15 → 3S 08-29 22:48
PROVIDERS: ADMIT Emergency Medicine; ATTEND Emergency Medicine
PROC: 5A09557 Assistance with Respiratory Ventilation, Greater than 96 Consecutive Hours, Continuous Positive Airway Pressure (ICD-10-PCS; principal; 2018-08-28)
PROC: 30233N1 Transfusion of Nonautologous Red Blood Cells into Peripheral Vein, Percutaneous Approach (ICD-10-PCS; 2018-09-01)
DX: E87.6 Hypokalemia (principal); N17.9 Acute kidney failure, unspecified; I13.0 Hypertensive heart and chronic kidney disease with heart failure and stage 1 through stage 4 chronic kidney disease, or unspecified chronic kidney disease; I50.32 Chronic diastolic (congestive) heart failure; N18.4 Chronic kidney disease, stage 4 (severe); Z68.42 Body mass index [BMI] 45.0-49.9, adult; E11.22 Type 2 diabetes mellitus with diabetic chronic kidney disease; D63.1 Anemia in chronic kidney disease; E78.5 Hyperlipidemia, unspecified; F32.9 Major depressive disorder, single episode, unspecified; E66.01 Morbid (severe) obesity due to excess calories; G47.33 Obstructive sleep apnea (adult) (pediatric); I45.81 Long QT syndrome; I25.10 Atherosclerotic heart disease of native coronary artery without angina pectoris; T50.1X5A Adverse effect of loop [high-ceiling] diuretics, initial encounter; Z60.2 Problems related to living alone; Z79.899 Other long term (current) drug therapy; Z79.4 Long term (current) use of insulin; Z83.3 Family history of diabetes mellitus; Z82.49 Family history of ischemic heart disease and other diseases of the circulatory system
CPT/HCPCS: 36415; 36430; 71045; 71046; 71250; 78582; 80048; 80053; 80061; 80069; 82272; 82306; 82550; 82553; 82607; 82728; 82746; 82962; 83036; 83540; 83550; 83735; 83880; 83970; 84439; 84443; 84481; 84484; 85025; 85027; 85045; 86850; 86900; 86901; 86920; 93005; 93010; 94660; 96365; 96375; 99285; A9540; A9567; J0360; J1644; J1815; J1940; J3480; J3490; P9016; Q4081; Q9969

== ENCOUNTER → 2018-08-27 | Outpatient (CLI) | payer MEDICARE, MEDICAID ==
[2018-08-27 13:03] LABS: ABSOLUTE BASOPHILS # (AUTO) 0.1 10^3/uL (0.0-0.2); ABSOLUTE LYMPHOCYTES (AUTO) 1.9 10^3/uL (0.5-4.7); ABSOLUTE MONOCYTES (AUTO) 0.7 10^3/uL (0.1-1.4); ABSOLUTE NEUT (AUTO) 6.5 10^3/uL (1.7-8.2); BASOPHILS % (AUTO) 1.2 % (0-2); EOSINOPHILS % (AUTO) 0.5 % (0-6); HEMATOCRIT 23.9 % (36.0-47.0); HEMOGLOBIN 8.4 g/dL (12.0-15.5); LYMPHOCYTES % (AUTO) 20.7 % (13-45); MEAN CORPUSCULAR HEMOGLOBIN 31.5 pg (27.0-33.4); MEAN CORPUSCULAR HGB CONC 35.1 g/dL (32.0-36.0); MEAN CORPUSCULAR VOLUME 90 fl (80-97); MONOCYTES % (AUTO) 7.6 % (3-13); PLATELET COUNT 382 10^3/uL (150-450); RED BLOOD COUNT 2.66 10^6/uL (3.72-5.28); RED CELL DISTRIBUTION WIDTH 15.2 % (11.5-14.0); TOTAL CELLS COUNTED % (AUTO) 100 %; WHITE BLOOD COUNT 9.2 10^3/uL (4.0-10.5)
[2018-08-27 13:21] LABS: ALBUMIN 2.7 g/dL (3.5-5.0); BLOOD UREA NITROGEN 21 mg/dL (7-20); CALCIUM 7.9 mg/dL (8.4-10.2); GLUCOSE 204 mg/dL (75-110); IRON(TIBC) 52.4 ug/dL (37-170); PHOSPHORUS 3.3 mg/dL (2.5-4.5)
[2018-08-27 13:26] LABS: ANION GAP 6 (5-19); CARBON DIOXIDE 33 mmol/L (22-30); CHLORIDE 102 mmol/L (98-107); SODIUM 140.7 mmol/L (137-145)
[2018-08-27 14:06] LABS: POTASSIUM 2.7 mmol/L (3.6-5.0)
== END ==
LOC: OD 12:15
PROVIDERS: ATTEND Internal Medicine Nephrology
DX: N17.9 Acute kidney failure, unspecified (principal); I10 Essential (primary) hypertension; D64.9 Anemia, unspecified; E11.9 Type 2 diabetes mellitus without complications
CPT/HCPCS: 36415; 80069; 82306; 82728; 83540; 83550; 83970; 85025

== ENCOUNTER → 2018-09-09 | Outpatient (CLI) | payer MEDICARE, MEDICAID ==
[2018-09-09 12:01] LABS: HEMATOCRIT 31.1 % (36.0-47.0); HEMOGLOBIN 10.6 g/dL (12.0-15.5); MEAN CORPUSCULAR HEMOGLOBIN 31.7 pg (27.0-33.4); MEAN CORPUSCULAR HGB CONC 34.1 g/dL (32.0-36.0); MEAN CORPUSCULAR VOLUME 93 fl (80-97); PLATELET COUNT 279 10^3/uL (150-450); RED BLOOD COUNT 3.36 10^6/uL (3.72-5.28); RED CELL DISTRIBUTION WIDTH 16.9 % (11.5-14.0); WHITE BLOOD COUNT 6.5 10^3/uL (4.0-10.5)
[2018-09-09 12:18] LABS: ANION GAP 5 (5-19); BLOOD UREA NITROGEN 24 mg/dL (7-20); CALCIUM 8.4 mg/dL (8.4-10.2); CARBON DIOXIDE 29 mmol/L (22-30); CHLORIDE 104 mmol/L (98-107); GLUCOSE 260 mg/dL (75-110); PHOSPHORUS 4.3 mg/dL (2.5-4.5); POTASSIUM 4.3 mmol/L (3.6-5.0); SODIUM 137.8 mmol/L (137-145)
[2018-09-09 12:21] LABS: URINE CREATININE 114.8 mg/dL (15-278)
[2018-09-09 14:42] LABS: UR PRO/CREAT RATIO RESULT 15.4 mg/mg (0.0-0.2); URINE PROTEIN 1768.9 mg/dL (<12)
== END ==
LOC: OD 11:13
PROVIDERS: ATTEND Physician Assistant Medical
DX: N17.9 Acute kidney failure, unspecified (principal); I12.9 Hypertensive chronic kidney disease with stage 1 through stage 4 chronic kidney disease, or unspecified chronic kidney disease; N18.3 Chronic kidney disease, stage 3 (moderate); E11.22 Type 2 diabetes mellitus with diabetic chronic kidney disease; D63.1 Anemia in chronic kidney disease; R60.9 Edema, unspecified
CPT/HCPCS: 36415; 80048; 82570; 83970; 84100; 84156; 85027

== ENCOUNTER 2018-10-08 09:40 | Day surgery (SDC) | payer MEDICARE, MEDICAID ==
[~2018-10-08 09:40] MED LIST changes: -ACETAMINOPHEN 325 MG TABLET PO PRN; -CEFAZOLIN 1 GM/D5W RTU 1 GM/50 ML RTUPB IV PRN; -DEXAMETHASONE SOD PHOSPHATE INJ 4 MG/1 ML VIAL ONE; -GLYCOPYRROLATE INJ 0.4 MG/2 ML VIAL ONE; -LIDOCAINE 0.5% INJ-PF (5 MG/ML) 50 ML SDV INJ PRN; -LIDOCAINE 2% INJ-PF (20 MG/ML) 10 ML AMPUL ONE; -NEOSTIGMINE METHYLSULFATE 10 MG/10 ML VIAL ONE; -ONDANSETRON HCL INJ/PF 4 MG/2 ML SDV ONE; +PROPOFOL INJ 200 MG/20 ML VIAL IV ONE; -RINGERS SOLUTION,LACTATED 1,000 ML IV PRN; -ROCURONIUM BROMIDE INJ 50 MG/5 ML VIAL IV ONE; -SUCCINYLCHOLINE CHLORIDE INJ 200 MG/10 ML VIAL ONE
[2018-10-08] MEDS ORDERED: IPRATROPIUM/ALBUTEROL 0.5-2.5 MG/3 ML AMPUL NEB ONE ×2 (09:43→09:46)
[2018-10-08] MEDS ORDERED: ONABOTULINUMTOXINA INJ/PF 100 UNIT SDV IM ONE (11:00)
--- NOTE | 2018-10-08 11:10 | Operative Report ---
Operative Report DATE OF SURGERY: 10/08/18 Operative Report: The risks benefits and alternatives of the procedure explained to the patient in detail and informed consent is obtained.A GIF Olympus video scope was inserted into the patient's mouth and hypopharynx, the esophagus is identified intubated and insufflated, the scope was then advanced through the esophagus stomach and duodenum ,retroflexion maneuver is done ,the esophagus stomach and first and second portions of the duodenum examined. PREOPERATIVE DIAGNOSIS: Nausea vomiting, gastroparesis POSTOPERATIVE DIAGNOSIS: Gastritis status post biopsy. Duodenitis. Botox injection performed at the gastric outlet total of 100 units per 5 mL with 1 cc/mL injection OPERATION: EGD with submucosal injection. EGD with biopsy SURGEON: CAMELIA PINEDA ANESTHESIA: LMAC TISSUE REMOVED OR ALTERED: As noted above. COMPLICATIONS: None. ESTIMATED BLOOD LOSS: None. INTRAOPERATIVE FINDINGS: As noted above. PROCEDURE: Patient tolerated the procedure well. No immediate postprocedure complications are noted. Patient is discharged in good condition. Discharge date 10/08/2018. Discharge diet: Regular. Discharge activity: Regular. 2 to 3-week follow-up to discuss findings. Patient is instructed to call the office or proceed to the emergency room should there be any further problems or questions. Wait on the pathology.
[2018-10-08 11:29] VITALS: BP 187/88
--- NOTE | 2018-10-08 13:28 | EKG REPORT ---
SEVERITY:- ABNORMAL ECG - SINUS RHYTHM PROBABLE INFERIOR INFARCT, AGE INDETERMINATE LATERAL LEADS ARE ALSO INVOLVED : Confirmed by: Lázaro Alston MD 08-Oct-2018 13:28:03
== END 2018-10-08 11:19 | disposition home or self-care (01) ==
LOC: END 09:40
PROVIDERS: ATTEND Internal Medicine Gastroenterology
DX: K29.50 Unspecified chronic gastritis without bleeding (principal); K29.80 Duodenitis without bleeding; J44.9 Chronic obstructive pulmonary disease, unspecified; I25.2 Old myocardial infarction; I20.9 Angina pectoris, unspecified; G47.33 Obstructive sleep apnea (adult) (pediatric); E78.5 Hyperlipidemia, unspecified; E66.01 Morbid (severe) obesity due to excess calories; Z68.42 Body mass index [BMI] 45.0-49.9, adult; E11.22 Type 2 diabetes mellitus with diabetic chronic kidney disease; I12.9 Hypertensive chronic kidney disease with stage 1 through stage 4 chronic kidney disease, or unspecified chronic kidney disease; N18.3 Chronic kidney disease, stage 3 (moderate); I25.10 Atherosclerotic heart disease of native coronary artery without angina pectoris; Z79.4 Long term (current) use of insulin; D63.1 Anemia in chronic kidney disease; E13.42 Other specified diabetes mellitus with diabetic polyneuropathy; E13.65 Other specified diabetes mellitus with hyperglycemia
CPT/HCPCS: 43236; 43239; 82962; 88342 ×2; 88305 ×2; 93005; 93010; 00731; J2704; A9270; J0585; 731; J7620

== ENCOUNTER → 2018-10-15 | Outpatient (CLI) | payer MEDICARE, MEDICAID ==
--- NOTE | 2018-10-15 12:28 | WOMENS IMAGING REPORT ---
EXAM DESCRIPTION: BILAT SCREENING MAMMO W/CAD COMPLETED DATE/TIME: 10/15/2018 8:51 am REASON FOR STUDY: Z12.31 SCREENING MAMMO Z12.31 ENCNTR SCREEN MAMMOGRAM FOR MALIGNANT NEOPLASM OF B RE I73.9 PERIPHERAL VASCULAR DISEASE, UNSPECIFIED R10.2 PELVIC AND PERINEAL PAIN COMPARISON: 12/30/2016. EXAM PARAMETERS: Standard craniocaudal and mediolateral oblique views of each breast recorded using digital acquisition. Read with the assistance of CAD. .[facility] - R2 Tie Man Version 9.2 LIMITATIONS: None. FINDINGS: No suspicious masses, suspicious calcifications or architectural distortion. No areas of c oncern. IMPRESSION: Negative MAMMOGRAM. BIRADS 1 BREAST DENSITY: b. There are scattered areas of fibroglandular density. BIRAD: ASSESSMENT: 1 NEGATIVE RECOMMENDATION: ROUTINE SCREENING COMMENT: The patient has been notified of the results by letter per MQSA requirements. Additional no tification policies are in place for contacting patient with suspicious or incomplete findings. Quality ID #[id number]: The [employer] [place] [employer] recommends an annual screening mammogram for women aged 40 years or over. This facility utilizes a reminder system to ensure that all patients receive reminder letters, and/or direct phone calls for appointments. This includes reminders for routine scr eening mammograms, diagnostic mammograms, or other Breast Imaging Interventions when appropriate. Th is patient will be placed in the appropriate reminder system. TECHNICAL DOCUMENTATION: FINDING NUMBER: (1) ASSESSMENT: (1) JOB ID: [id number] [employer]- All Rights Reserved Reading location - IP/workstation name: [email or web address]
--- NOTE | 2018-10-15 13:10 | WOMENS IMAGING REPORT ---
EXAM DESCRIPTION: TRANSVAGINAL ULTRASOUND COMPLETED DATE/TIME: 10/15/2018 10:15 am REASON FOR STUDY: R10.2 PELVIC AND PERINEAL PAIN Z12.31 ENCNTR SCREEN MAMMOGRAM FOR MALIGNANT NEOPL ASM OF PAULA I73.9 PERIPHERAL VASCULAR DISEASE, UNSPECIFIED R10.2 PELVIC AND PERINEAL PAIN COMPARISON: None. TECHNIQUE: Dynamic and static grayscale images acquired of the pelvis via transvaginal approach and recorded on PACS. Additional selected color Doppler and spectral images recorded. LIMITATIONS: Limited due to the patient's body habitus FINDINGS: UTERUS: Contour normal. No mass. ENDOMETRIAL STRIPE: No focal or generalized thickening. No masses. CERVIX: No nabothian cysts. RIGHT OVARY AND DOPPLER: Ovary not visualized. LEFT OVARY AND DOPPLER: Ovary not visualized. FREE FLUID: None noted. OTHER: No other significant finding. MEASUREMENTS: UTERUS: 3.6 x 5.0 x 6.5 cm. ENDOMETRIAL STRIPE: 2.8 mm. RIGHT OVARY: Not visualized. LEFT OVARY: Not visualized. IMPRESSION: LIMITED STUDY. OVARIES ARE NOT VISUALIZED. OTHERWISE UNREMARKABLE TRANSVAGINAL PELVIC ULTRASOUND. TECHNICAL DOCUMENTATION: JOB ID: [id number]- All Rights Reserved Rev-07/17 Reading location - IP/workstation name: [email or web address]
--- NOTE | 2018-10-15 14:34 | RADIOLOGY REPORT (SQ) ---
EXAM DESCRIPTION: DUPLEX ART/NAVA FLOW COMPLETE COMPLETED DATE/TIME: 10/15/2018 12:34 pm REASON FOR STUDY: PERIPHERAL VASCULAR DISEASE, UNSPECIFIED; PELVIC AND PERINEAL PAIN Z12.31 ENCNTR SCREEN MAMMOGRAM FOR MALIGNANT NEOPLASM OF PAULA I73.9 PERIPHERAL VASCULAR DISEASE, UNSPECIFIED R10.2 PELVIC AND PERINEAL PAIN COMPARISON: None. TECHNIQUE: Realtime and static grayscale images acquired. Selected color Doppler, velocities and spe ctral images recorded. LIMITATIONS: None. FINDINGS: RIGHT KIDNEY: RENAL ARTERY VELOCITIES: 84 cm/sec. Segmental artery velocity 47 cm/sec. RENAL VEIN: Color doppler flow present, patent. VELOCITY RATIO: 0.71. Normal waveforms. KIDNEY: Normal size. 3.3 cm cortical cyst, poorly visualized. Also present on prior CT scan (11/30). No significant pathology. LEFT KIDNEY: RENAL ARTERY VELOCITIES: 80 cm/sec. Segmental artery velocity 54 cm/sec. RENAL VEIN: Color doppler flow present, patent. VELOCITY RATIO: 0.68. Normal waveforms. KIDNEY: Normal size. No significant pathology. BLADDER: Normal. OTHER: No other significant finding. IMPRESSION: NO DOPPLER EVIDENCE OF HEMODYNAMICALLY SIGNIFICANT RENAL ARTERY STENOSIS. COMMENT: NORMAL RENAL ARTERY/AORTA VELOCITY RATIO IS LESS THAN OR EQUAL TO 3.5. TECHNICAL DOCUMENTATION: JOB ID: [id number] [employer]- All Rights Reserved Reading location - IP/workstation name: [email or web address]
== END ==
LOC: RAD 08:25
PROVIDERS: ATTEND Family Medicine
DX: Z12.31 Encounter for screening mammogram for malignant neoplasm of breast (principal); I73.9 Peripheral vascular disease, unspecified; R10.2 Pelvic and perineal pain
CPT/HCPCS: 76830; 77067; 93975

== ENCOUNTER 2018-12-26 18:38 | Inpatient (IN) | payer MEDICARE, MEDICAID ==
--- NOTE | 2018-12-26 18:52 | ER Document Report ---
ED Medical Screen (RME) - General Chief Complaint: Shortness Of Breath Stated Complaint: SHORTNESS OF BREATH Time Seen by Provider: 12/26/18 18:48 Primary Care Provider: EVONNE ROSA FNP-C [Primary Care Provider] - Follow up as needed Information source: Patient Notes: Patient presents complaining of chest pain difficulty breathing for the past 2 days. Patient normally wears home oxygen but states that her O2 tank ran out and would not refill at home. Patient denies any nausea or vomiting. Patient denies any cough. Patient does report some congestion symptoms with runny nose. hx: Asthma, diabetes, hypertension, dyslipidemia I have greeted and performed a rapid initial assessment of this patient. A comprehensive ED assessment and evaluation of the patient, analysis of test results and completion of the medical decision making process will be conducted by additional ED providers. TRAVEL OUTSIDE OF THE [place] IN LAST 30 DAYS: No - Related Data Allergies/Adverse Reactions: No Known Allergies Allergy (Verified 12/26/18 18:43) Past Medical History - Past Medical History Cardiac Medical History: Reports: Hx Congestive Heart Failure, Hx Hypercholesterolemia, Hx Hypertension Denies: Hx Atrial Fibrillation, Hx Coronary Artery Disease, Hx DVT, Hx Heart Attack, Hx Peripheral Vascular Disease, Hx Pulmonary Embolism Pulmonary Medical History: Reports: Hx Sleep Apnea - Not using CPAP at home Denies: Hx Asthma, Hx Bronchitis, Hx COPD, Hx Pneumonia Neurological Medical History: Denies: Hx Cerebrovascular Accident, Hx Seizures Endocrine Medical History: Reports: Hx Diabetes Mellitus Type 2. Denies: Hx Diabetes Mellitus Type 1, Hx Hyperthyroidism, Hx Hypothyroidism Renal/ Medical History: Denies: Hx Peritoneal Dialysis GI Medical History: Denies: Hx Cirrhosis, Hx Crohn's Disease, Hx Hepatitis, Hx Ulcerative Colitis Musculoskeltal Medical History: Reports Hx Arthritis, Denies Hx Gout Skin Medical History: Denies Hx Eczema, Denies Hx Psoriasis Psychiatric Medical History: Reports: Hx Depression Infectious Medical History: Denies: Hx Hepatitis Past Surgical History: Reports: Hx Cholecystectomy, Hx Tonsillectomy, Hx Tubal Ligation, Other - Carpal tunnel - Immunizations Hx Diphtheria, Pertussis, Tetanus Vaccination: Yes Physical Exam - Vital signs Vitals: Temp Pulse Resp BP Pulse Ox 97.9 F 85 23 H 196/87 H 95 12/26/18 18:40 12/26/18 18:40 12/26/18 18:40 12/26/18 18:40 12/26/18 18:40 - Respiratory Respiratory status: Tachypnea. No: Labored Chest status: Tender Breath sounds: Normal Chest palpation: Tender Course - Vital Signs Vital signs: Temp Pulse Resp BP Pulse Ox 97.9 F 85 23 H 196/87 H 95 12/26/18 18:40 12/26/18 18:40 12/26/18 18:40 12/26/18 18:40 12/26/18 18:40 Doctor's Discharge - Discharge Referrals: EVONNE ROSA, [employer]-C [Primary Care Provider] - Follow up as needed
--- NOTE | 2018-12-26 19:32 | RADIOLOGY REPORT (SQ) ---
EXAM DESCRIPTION: CHEST 2 VIEWS COMPLETED DATE/TIME: 12/26/2018 7:21 pm REASON FOR STUDY: cp, rohan COMPARISON: 09/28/2018 EXAM PARAMETERS: NUMBER OF VIEWS: two views TECHNIQUE: Digital Frontal and Lateral radiographic views of the chest acquired. RADIATION DOSE: NA LIMITATIONS: none FINDINGS: LUNGS AND PLEURA: Mild diffuse interstitial pulmonary opacity and small bilateral pleural effusions. MEDIASTINUM AND HILAR STRUCTURES: No masses or contour abnormalities. HEART AND VASCULAR STRUCTURES: Gross cardiomegaly. BONES: No acute findings. HARDWARE: None in the chest. OTHER: No other significant finding. IMPRESSION: Mild diffuse interstitial pulmonary opacity and small bilateral pleural effusions, likel y edema in the setting of cardiomegaly. TECHNICAL DOCUMENTATION: JOB ID: [id number] [employer]- All Rights Reserved Reading location - IP/workstation name: [email or web address]
[2018-12-26 20:10] LABS: ABSOLUTE BASOPHILS # (AUTO) 0.1 10^3/uL (0.0-0.2); ABSOLUTE EOSINOPHILS # (AUTO) 0.1 10^3/uL (0.0-0.6); ABSOLUTE LYMPHOCYTES (AUTO) 1.9 10^3/uL (0.5-4.7); ABSOLUTE MONOCYTES (AUTO) 0.8 10^3/uL (0.1-1.4); BASOPHILS % (AUTO) 0.9 % (0-2); EOSINOPHILS % (AUTO) 1.5 % (0-6); HEMATOCRIT 26.3 % (36.0-47.0); HEMOGLOBIN 9.1 g/dL (12.0-15.5); LYMPHOCYTES % (AUTO) 23.6 % (13-45); MEAN CORPUSCULAR HEMOGLOBIN 31.9 pg (27.0-33.4); MEAN CORPUSCULAR HGB CONC 34.4 g/dL (32.0-36.0); MEAN CORPUSCULAR VOLUME 93 fl (80-97); MONOCYTES % (AUTO) 10.4 % (3-13); PLATELET COUNT 283 10^3/uL (150-450); RED BLOOD COUNT 2.84 10^6/uL (3.72-5.28); RED CELL DISTRIBUTION WIDTH 15.7 % (11.5-14.0); SEGMENTED NEUTROPHILS % (AUTO) 63.6 % (42-78); TOTAL CELLS COUNTED % (AUTO) 100 %; WHITE BLOOD COUNT 7.9 10^3/uL (4.0-10.5)
[2018-12-26 20:28] LABS: ALBUMIN 3.1 g/dL (3.5-5.0); ALKALINE PHOSPHATASE 69 U/L (38-126); ASPARTATE AMINO TRANSFERASE 19 U/L (14-36); BILIRUBIN,DIRECT 0.1 mg/dL (0.0-0.4); BILIRUBIN,TOTAL 0.7 mg/dL (0.2-1.3); BLOOD UREA NITROGEN 32 mg/dL (7-20); CALCIUM 8.7 mg/dL (8.4-10.2); GLUCOSE 84 mg/dL (75-110); TOTAL PROTEIN 6.1 g/dL (6.3-8.2)
[2018-12-26 20:34] LABS: CARBON DIOXIDE 27 mmol/L (22-30); CHLORIDE 113 mmol/L (98-107)
[2018-12-26 20:38] LABS: ANION GAP 4 (5-19)
[2018-12-26 20:39] LABS: TROPONIN I 0.014 ng/mL
[2018-12-26] MEDS ORDERED: NITROGLYCERIN 2% OINTMENT 1 GM PACKET TP ONE (20:51)
[2018-12-26] MEDS ORDERED: NITROGLYCERIN 0.4 MG/TAB 25 TAB/BOTTLE SL ONE (20:52)
[2018-12-26] MEDS ORDERED: FUROSEMIDE INJ/PF 40 MG/4 ML SDV IV ONE (20:53)
--- NOTE | 2018-12-26 21:06 | ER Document Report ---
ED Respiratory Problem - General Chief Complaint: Chest Pain Stated Complaint: SHORTNESS OF BREATH Time Seen by Provider: 12/26/18 18:48 Primary Care Provider: EVONNE ROSA FNP-C [NO LOCAL MD] - Follow up as needed Notes: Patient is a 63-year-old female presents to the emergency department with dull left-sided nonradiating chest pain for the last 2 days. Patient rates it 3 out of 10 when she is sitting still and voices it is a 7 out of 10 when she exerts herself or tries to walk around. Patient voices she is on oxygen 2 L/min at home at all time. States she does have a history of congestive heart failure and hypertension. States she has been taking her medications as prescribed. Patient voices shortness of breath with exertion only, not when she is still. Patient voices she does believe she had a stress test within the last year, is unsure of her last cardiac catheterization. TRAVEL OUTSIDE OF THE [place] IN LAST 30 DAYS: No - Related Data Allergies/Adverse Reactions: No Known Allergies Allergy (Verified 12/26/18 18:43) Past Medical History - General Information source: Patient - Social History Smoking Status: Never Smoker Family History: CAD, DM, Hypertension Patient has suicidal ideation: No Patient has homicidal ideation: No - Past Medical History Cardiac Medical History: Reports: Hx Congestive Heart Failure, Hx Hypercholesterolemia, Hx Hypertension Denies: Hx Atrial Fibrillation, Hx Coronary Artery Disease, Hx DVT, Hx Heart Attack, Hx Peripheral Vascular Disease, Hx Pulmonary Embolism Pulmonary Medical History: Reports: Hx Asthma, Hx Sleep Apnea - Not using CPAP at home Denies: Hx Bronchitis, Hx COPD, Hx Pneumonia Neurological Medical History: Denies: Hx Cerebrovascular Accident, Hx Seizures Endocrine Medical History: Reports: Hx Diabetes Mellitus Type 2. Denies: Hx Diabetes Mellitus Type 1, Hx Hyperthyroidism, Hx Hypothyroidism Renal/ Medical History: Denies: Hx Peritoneal Dialysis GI Medical History: Denies: Hx Cirrhosis, Hx Crohn's Disease, Hx Hepatitis, Hx Ulcerative Colitis Musculoskeletal Medical History: Reports Hx Arthritis, Denies Hx Gout Skin Medical History: Denies Hx Eczema, Denies Hx Psoriasis Psychiatric Medical History: Reports: Hx Depression Infectious Medical History: Denies: Hx Hepatitis Past Surgical History: Reports: Hx Cholecystectomy, Hx Tonsillectomy, Hx Tubal Ligation, Other - Carpal tunnel - Immunizations Hx Diphtheria, Pertussis, Tetanus Vaccination: Yes Review of Systems - Review of Systems Constitutional: denies: Fever EENT: No symptoms reported Cardiovascular: See HPI Respiratory: See HPI Gastrointestinal: No symptoms reported Genitourinary: No symptoms reported Female Genitourinary: No symptoms reported Musculoskeletal: Leg swelling Skin: No symptoms reported Hematologic/Lymphatic: No symptoms reported Neurological/Psychological: No symptoms reported Physical Exam - Vital signs Vitals: Temp Pulse Resp BP Pulse Ox 97.9 F 85 23 H 196/87 H 95 12/26/18 18:40 12/26/18 18:40 12/26/18 18:40 12/26/18 18:40 12/26/18 18:40 - Notes Notes: GENERAL: Alert, interacts well. No acute distress. HEAD: Normocephalic, atraumatic. EYES: Pupils equal, round, and reactive to light. Extraocular movements intact. ENT: Oral mucosa moist, tongue midline. NECK: Full range of motion. Supple. Trachea midline. LUNGS: Diminished to auscultation bilateral bases, no discernible wheezes, rales, or rhonchi. No respiratory distress while lying in bed. HEART: Regular rate and rhythm. No murmur ABDOMEN: Soft, non-tender. Non-distended. Bowel sounds present in all 4 quadrants. EXTREMITIES: Moves all 4 extremities spontaneously. No edema noted bilateral lower extremities. Normal radial and dorsalis pedis pulses bilaterally. No cyanosis. BACK: no cervical, thoracic, lumbar midline tenderness. No saddle anesthesia, normal distal neurovascular exam. NEUROLOGICAL: Alert and oriented x3. Normal speech. cranial nerves II through XII grossly intact. PSYCH: Normal affect, normal mood. SKIN: Warm, dry, normal turgor. No rashes or lesions noted. Course - Re-evaluation Re-evalutation: 12/27/18 00:22 Laboratory 12/26/18 12/26/18 12/26/18 20:00 20:00 20:00 WBC 7.9 RBC 2.84 L Hgb 9.1 L Hct 26.3 L MCV 93 MCH 31.9 MCHC 34.4 RDW 15.7 H Plt Count 283 Lymph % (Auto) 23.6 [place] % (Auto) 10.4 Eos % (Auto) 1.5 Baso % (Auto) 0.9 Absolute Neuts (auto) 5.0 Absolute Lymphs (auto) 1.9 Absolute Monos (auto) 0.8 Absolute Eos (auto) 0.1 Absolute Basos (auto) 0.1 Seg Neutrophils % 63.6 Sodium 143.8 Potassium 4.0 Chloride 113 H Carbon Dioxide 27 Anion Gap 4 L BUN 32 H Creatinine 2.51 H Est GFR ( Amer) 23 L Est GFR (MDRD) Non-Af 19 L Glucose 84 Calcium 8.7 Total Bilirubin 0.7 Direct Bilirubin 0.1 Neonat Total Bilirubin Not Reportable Neonat Direct Bilirubin Not Reportable Neonat Indirect Bili Not Reportable AST 19 ALT 12 Alkaline Phosphatase 69 Troponin I 0.014 NT-Pro-B Natriuret Pep 4320 H Total Protein 6.1 L Albumin 3.1 L Urine Color Urine Appearance Urine pH Ur Specific [place] Urine Protein Urine Glucose (UA) Urine Ketones Urine Blood Urine Nitrite Urine Bilirubin Urine Urobilinogen Ur Leukocyte Esterase Urine WBC (Auto) Urine RBC (Auto) Urine Bacteria (Auto) Squamous Epi Cells Auto Urine Mucus (Auto) Urine Ascorbic Acid 12/26/18 23:11 WBC RBC Hgb Hct MCV MCH MCHC RDW Plt Count Lymph % (Auto) [place] % (Auto) Eos % (Auto) Baso % (Auto) Absolute Neuts (auto) Absolute Lymphs (auto) Absolute Monos (auto) Absolute Eos (auto) Absolute Basos (auto) Seg Neutrophils % Sodium Potassium Chloride Carbon Dioxide Anion Gap BUN Creatinine Est GFR ( Amer) Est GFR (MDRD) Non-Af Glucose Calcium Total Bilirubin Direct Bilirubin Neonat Total Bilirubin Neonat Direct Bilirubin Neonat Indirect Bili AST ALT Alkaline Phosphatase Troponin I NT-Pro-B Natriuret Pep Total Protein Albumin Urine Color YELLOW Urine Appearance SLIGHTLY-CLOUDY Urine pH 6.0 Ur Specific [place] 1.013 Urine Protein >=500 H Urine Glucose (UA) 50 H Urine Ketones NEGATIVE Urine Blood SMALL H Urine Nitrite NEGATIVE Urine Bilirubin NEGATIVE Urine Urobilinogen NEGATIVE Ur Leukocyte Esterase NEGATIVE Urine WBC (Auto) 16 Urine RBC (Auto) 1 Urine Bacteria (Auto) 2+ Squamous Epi Cells Auto 4 Urine Mucus (Auto) RARE Urine Ascorbic Acid NEGATIVE Chest X-Ray 12/26/18 18:51 IMPRESSION: Mild diffuse interstitial pulmonary opacity and small bilateral pleural effusions, likely edema in the setting of cardiomegaly. Patient has been given 3 sublingual nitroglycerin, Nitropaste, Lasix and morphine. She is currently pain-free. Her blood pressure is also at 135/78. Patient's denying a headache, lightheadedness, dizziness, weakness. Patient voices when she did get out of bed to use the bedside commode she did have an increase in her respiratory distress and a "slight twinge" in the left side of her chest. States that has dissipated. I have discussed this case with hospitalist Dr. Sevilla who will admit the Pt. to tele. - Vital Signs Vital signs: Temp Pulse Resp BP Pulse Ox 97.9 F 85 18 130/76 H 95 12/26/18 18:40 12/26/18 18:40 12/26/18 22:01 12/26/18 22:00 12/26/18 22:01 - Laboratory Result Diagrams: 12/26/18 20:00 12/26/18 20:00 Laboratory results interpreted by me: 12/26/18 12/26/18 12/26/18 20:00 20:00 20:00 RBC 2.84 L Hgb 9.1 L Hct 26.3 L RDW 15.7 H Chloride 113 H Anion Gap 4 L BUN 32 H Creatinine 2.51 H Est GFR ( Amer) 23 L Est GFR (MDRD) Non-Af 19 L NT-Pro-B Natriuret Pep 4320 H Total Protein 6.1 L Albumin 3.1 L Urine Protein Urine Glucose (UA) Urine Blood 12/26/18 23:11 RBC Hgb Hct RDW Chloride Anion Gap BUN Creatinine Est GFR ( Amer) Est GFR (MDRD) Non-Af NT-Pro-B Natriuret Pep Total Protein Albumin Urine Protein >=500 H Urine Glucose (UA) 50 H Urine Blood SMALL H Discharge - Discharge Clinical Impression: Hypertensive urgency CHF (congestive heart failure) Qualifiers: Heart failure type: other Qualified Code(s): I50.9 - Heart failure, unspecified Chest pain Qualifiers: Chest pain type: unspecified Qualified Code(s): R07.9 - Chest pain, unspecified Condition: Stable Disposition: ADMITTED INPATIENT Admitting Provider: Roel (Hospitalist) Unit Admitted: Telemetry Referrals: EVONNE ROSA FNP-C [NO LOCAL MD] - Follow up as needed
[2018-12-26] MEDS ORDERED: MORPHINE SULFATE 10 MG/ML INJ IV ONE (22:38)
--- NOTE | 2018-12-26 22:55 | EKG REPORT ---
SEVERITY:- BORDERLINE ECG - SINUS RHYTHM LOW VOLTAGE THROUGHOUT BORDERLINE R WAVE PROGRESSION, ANTERIOR LEADS : Confirmed by: Nicole Rodriguez MD 26-Dec-2018 22:54:46
[2018-12-26 23:35] LABS: APPEARANCE,URINE SLIGHTLY-CLOUDY; BILIRUBIN,URINE NEGATIVE (NEGATIVE); COLOR,URINE YELLOW; GLUCOSE, URINE 50 mg/dL (NEGATIVE); KETONES,URINE NEGATIVE (NEGATIVE); LEUKOCYTE ESTERASE,URINE NEGATIVE (NEGATIVE); NITRITE,URINE NEGATIVE (NEGATIVE); PROTEIN,URINE >=500 mg/dL (NEGATIVE); URINE SPECIFIC GRAVITY 1.013; UROBILINOGEN,URINE NEGATIVE mg/dL (<2.0)
[2018-12-27] MEDS ORDERED: MAG HYDROX/AL HYDROX/SIMETH SUSP 30 ML UDCUP PO PRN (00:30)
[2018-12-27] MEDS ORDERED: GLUCAGON,HUMAN RECOMB 1 MG INJ IM PRN (00:30)
[2018-12-27] MEDS ORDERED: DEXTROSE 50%-WATER 25 GM/50 ML DISP.SYRIN IV PRN ×2 (00:30)
[2018-12-27] MEDS ORDERED: DEXTROSE 40% GEL 15 GM TUBE PO PRN ×2 (00:30)
[2018-12-27] MEDS ORDERED: ACETAMINOPHEN 325 MG TABLET PO PRN ×2 (00:30→14:06)
[2018-12-27] MEDS ORDERED: FUROSEMIDE INJ/PF 40 MG/4 ML SDV IV ONE (00:45)
--- NOTE | 2018-12-27 05:26 | PDOC H&P ---
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 She presents after 2 days of left-sided chest pain worsened by minimal exertion. In the emergency department she is found to have a systolic blood pressure of 220/100. She receives nitrates, Lasix and BiPAP. Her chest pain was associated with shortness of breath and diaphoresis. Denying nausea or palpitations. Episodes last approximately 30 minutes reside with rest. She is minimally active at baseline and severely debilitated, transferring from bed or chair to commode with maximal effort. She denies recent changes in medications but admits to noncompliance with diet and BiPAP. Past Medical History Cardiac Medical History: Reports: Congestive Heart Failure, Hyperlipidema, Hypertension Denies: Atrial Fibrillation, Coronary Artery Disease, DVT, Myocardial Infarction, Peripheral Vascular Disease, Pulmonary Embolism Pulmonary Medical History: Reports: Asthma, Sleep Apnea - Not using CPAP at home Denies: Bronchitis, Chronic Obstructive Pulmonary Disease (COPD), Pneumonia Neurological Medical History: Denies: Seizures Endocrine Medical History: Reports: Diabetes Mellitus Type 2 Denies: Diabetes Mellitus Type 1, Hyperthyroidism, Hypothyroidism GI Medical History: Denies: Cirrhosis, Crohn's Disease, Hepatitis, Ulcerative Colitis Musculoskeltal Medical History: Reports: Arthritis Denies: Gout Skin Medical History: Denies: Eczema, Psoriasis Psychiatric Medical History: Reports: Depression Hematology: Reports: Anemia Denies: Bleeding Tendencies Past Surgical History Past Surgical History: Reports: Cholecystectomy, Tonsillectomy, Tubal Ligation, Other - Carpal tunnel Social History Information Source: Patient, [facility] Records Smoking Status: Never Smoker Electronic Cigarette use?: No Frequency of Alcohol Use: None Hx Recreational Drug Use: No Drugs: None Hx Prescription Drug Abuse: No - Advance Directive Resuscitation Status: Full Code Family History Family History: CAD, DM, Hypertension Parental Family History Reviewed: Yes Children Family History Reviewed: Yes Sibling(s) Family History Reviewed.: Yes Medication/Allergy Home Medications: Albuterol Sulfate [Proair HFA Inhalation Aerosol 8.5 gm MDI] 2 puff IH Q6HP PRN 09/28/18 Carvedilol [Coreg 12.5 mg Tablet] 12.5 mg PO Q12 09/28/18 Cetirizine HCl [Zyrtec 10 mg Tablet] 10 mg PO DAILY 09/28/18 Escitalopram Oxalate [Lexapro] 20 mg PO DAILY 09/28/18 Ezetimibe [Zetia 10 mg Tablet] 10 mg PO DAILY 09/28/18 Fluticasone Propionate [Flonase Nasal [place] 50 Mcg/[place] 16 gm] 1 spray NASL DAILYP PRN 09/28/18 Furosemide [Lasix 40 mg Tablet] 40 mg PO DAILY 09/28/18 Gabapentin [Neurontin 300 mg Capsule] 600 mg PO QPM 09/28/18 Gabapentin [Neurontin 300 mg Capsule] 900 mg PO QAM 09/28/18 Insulin Glargine,Hum.rec.anlog [Lantus Insulin 100 Unit/1 ml 10 ml] 30 unit SQ Q12 09/28/18 Mirabegron [Myrbetriq] 50 mg PO DAILY 09/28/18 Potassium Chloride [K-Tab ER] 20 meq PO DAILY 09/28/18 Tramadol HCl [Ultram 50 mg Tablet] 50 mg PO Q12HP PRN 09/28/18 Amlodipine Besylate [Norvasc 5 mg Tablet] 5 mg PO DAILY #30 tablet 10/01/18 Lisinopril [Zestril] 20 mg PO DAILY #30 tablet 10/01/18 Metoclopramide HCl [Reglan 10 mg Tablet] 5 mg PO TID #30 tablet 10/01/18 Allergies/Adverse Reactions: No Known Allergies Allergy (Verified 12/26/18 18:43) Review of Systems Constitutional: PRESENT: as per HPI, fatigue, weakness, weight gain. ABSENT: chills, fever(s), headache(s), weight loss Eyes: ABSENT: visual disturbances Ears: ABSENT: hearing changes Cardiovascular: PRESENT: dyspnea on exertion, edema. ABSENT: chest pain, orthropnea, palpitations Respiratory: ABSENT: cough, hemoptysis Gastrointestinal: ABSENT: abdominal pain, constipation, diarrhea, hematemesis, hematochezia, nausea, vomiting Genitourinary: ABSENT: dysuria, hematuria Musculoskeletal: PRESENT: muscle weakness. ABSENT: joint swelling Integumentary: ABSENT: rash, wounds Neurological: ABSENT: abnormal gait, abnormal speech, confusion, dizziness, focal weakness, syncope Psychiatric: ABSENT: anxiety, depression, homidical ideation, suicidal ideation Endocrine: ABSENT: cold intolerance, heat intolerance, polydipsia, polyuria Hematologic/Lymphatic: ABSENT: easy bleeding, easy bruising Physical Exam Vital Signs: Temp Pulse Resp BP Pulse Ox 97.2 F 66 8 L 150/69 H 97 12/27/18 03:41 12/27/18 03:41 12/27/18 04:41 12/27/18 03:41 12/27/18 03:41 Intake & Output 12/25/18 12/26/18 12/27/18 11:59 11:59 11:59 Output Total 150 Balance -150 Weight 124.7 kg General appearance: PRESENT: no acute distress, cooperative, morbidly obese, well-developed, well-nourished Head exam: PRESENT: atraumatic, normocephalic Eye exam: PRESENT: conjunctiva pink, EOMI, PERRLA. ABSENT: scleral icterus Ear exam: PRESENT: normal external ear exam Mouth exam: PRESENT: moist, tongue midline Neck exam: ABSENT: carotid bruit, JVD, lymphadenopathy, thyromegaly Respiratory exam: PRESENT: clear to auscultation vadim. ABSENT: rales, rhonchi, wheezes Cardiovascular exam: PRESENT: gallop, RRR. ABSENT: diastolic murmur, rubs, systolic murmur Pulses: PRESENT: normal dorsalis pedis pul Vascular exam: PRESENT: normal capillary refill GI/Abdominal exam: PRESENT: normal bowel sounds, soft. ABSENT: distended, guarding, mass, organolmegaly, rebound, tenderness Rectal exam: PRESENT: deferred Extremities exam: PRESENT: full ROM, +1 edema. ABSENT: calf tenderness, clubbing, pedal edema Neurological exam: PRESENT: alert, awake, oriented to person, oriented to place, oriented to time, oriented to situation, CN II-XII grossly intact. ABSENT: motor sensory deficit Skin exam: PRESENT: dry, intact, warm. ABSENT: cyanosis, rash Results Laboratory Results: 12/26/18 20:00 12/26/18 20:00 12/26/18 12/26/18 12/26/18 20:00 20:00 20:00 WBC 7.9 RBC 2.84 L Hgb 9.1 L Hct 26.3 L MCV 93 MCH 31.9 MCHC 34.4 RDW 15.7 H Plt Count 283 Seg Neutrophils % 63.6 Sodium 143.8 Potassium 4.0 Chloride 113 H Carbon Dioxide 27 Anion Gap 4 L BUN 32 H Creatinine 2.51 H Est GFR ( Amer) 23 L Glucose 84 Calcium 8.7 Total Bilirubin 0.7 AST 19 Alkaline Phosphatase 69 Total Protein 6.1 L Albumin 3.1 L TSH 2.62 Urine Color Urine Appearance Urine pH Ur Specific [place] Urine Protein Urine Glucose (UA) Urine Ketones Urine Blood Urine Nitrite Ur Leukocyte Esterase Urine WBC (Auto) Urine RBC (Auto) 12/26/18 23:11 WBC RBC Hgb Hct MCV MCH MCHC RDW Plt Count Seg Neutrophils % Sodium Potassium Chloride Carbon Dioxide Anion Gap BUN Creatinine Est GFR ( Amer) Glucose Calcium Total Bilirubin AST Alkaline Phosphatase Total Protein Albumin TSH Urine Color YELLOW Urine Appearance SLIGHTLY-CLOUDY Urine pH 6.0 Ur Specific [place] 1.013 Urine Protein >=500 H Urine Glucose (UA) 50 H Urine Ketones NEGATIVE Urine Blood SMALL H Urine Nitrite NEGATIVE Ur Leukocyte Esterase NEGATIVE Urine WBC (Auto) 16 Urine RBC (Auto) 1 12/26/18 12/27/18 20:00 01:10 Troponin I 0.014 0.014 NT-Pro-B Natriuret Pep 4320 H Impressions: Chest X-Ray 12/26/18 18:51 IMPRESSION: Mild diffuse interstitial pulmonary opacity and small bilateral pleural effusions, likely edema in the setting of cardiomegaly. Assessment and Plan - Diagnosis (1) Hypertensive urgency Is this a current diagnosis for this admission?: Yes Plan: Nitrates, hydralazine, Lasix (2) Chest pain Qualifiers: Chest pain type: unspecified Qualified Code(s): R07.9 - Chest pain, unspecified Is this a current diagnosis for this admission?: Yes Plan: Secondary to #1, serial cardiac enzymes and consider Cardiolite stress test (3) CHF (congestive heart failure) Qualifiers: Heart failure type: other Qualified Code(s): I50.9 - Heart failure, unspecified Is this a current diagnosis for this admission?: Yes Plan: Secondary to #1, optimize blood pressure and volume, education (4) Acute kidney injury superimposed on chronic kidney disease Is this a current diagnosis for this admission?: Yes Plan: Secondary to long-standing uncontrolled hypertension and diabetes essentially at baseline. Avoid nephrotoxic meds and doses follow-up chemistry (5) Anemia Is this a current diagnosis for this admission?: Yes Plan: Likely secondary to end-stage renal failure, follow-up anemia labs (6) Diabetes mellitus type 2 in obese Is this a current diagnosis for this admission?: Yes Plan: Lantus and Humalog sliding scale, follow-up A1c - Time Time Spent with patient: 25-34 minutes - Inpatient Certification Medical Necessity: Need Close Monitoring Due to Risk of Patient Decompensation
[2018-12-27] MEDS: HEPARIN SOD (PORCINE) 5,000 UNIT/ML 1 ML VIAL SUBCUT SCH ×3 (06:18→21:44)
[2018-12-27] MEDS: INSULIN LISPRO 100 UNIT/ML 3 ML VIAL SUBCUT SCH ×3 (06:36→17:24)
[2018-12-27 08:02] LABS: BLOOD UREA NITROGEN 33 mg/dL (7-20); CALCIUM 8.6 mg/dL (8.4-10.2); CHLORIDE 112 mmol/L (98-107); GLUCOSE 73 mg/dL (75-110); POTASSIUM 4.2 mmol/L (3.6-5.0)
[2018-12-27 08:08] LABS: CARBON DIOXIDE 28 mmol/L (22-30)
[2018-12-27 08:09] LABS: ANION GAP 4 (5-19)
[2018-12-27] MEDS: FUROSEMIDE INJ/PF 40 MG/4 ML SDV IV SCH ×2 (09:53→21:43)
[2018-12-27] MEDS: DOCUSATE SODIUM 100 MG CAPSULE PO SCH (09:54)
[2018-12-27] MEDS: ASPIRIN 81 MG TABLET, ENT COATED PO SCH (09:54)
[2018-12-27] MEDS: POTASSIUM CHLORIDE 10 MEQ CAPSULE.ER PO SCH ×2 (09:54→21:43)
[2018-12-27] MEDS ORDERED: INSULIN GLARGINE,HUM.REC.ANLOG 1,000 UNIT/10 ML VIAL SUBCUT SCH (10:00)
[2018-12-27] MEDS ORDERED: (PENDING PHARMACY ID) (Lisinopril [Zestril] 20 MG) PO PRN (16:55)
[2018-12-27] MEDS ORDERED: HYDRALAZINE HCL INJ/PF 20 MG/1 ML SDV IV PRN (16:57)
[2018-12-27] MEDS: GABAPENTIN 300 MG CAPSULE PO SCH (17:28)
[2018-12-27] MEDS ORDERED: LISINOPRIL 10 MG TABLET PO ONE ×2 (18:40→21:00)
[2018-12-27] MEDS ORDERED: AMLODIPINE BESYLATE 10 MG TABLET PO ONE ×2 (18:40→21:00)
--- NOTE | 2018-12-27 18:47 | Progress Note ---
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 Overnight events, vital signs, Laboratory/imaging results, and orders reviewed. Agree with the plan of care as established by the previous provider. In addition, have resumed the patient's home antihypertensive regiment of am lodipine, carvedilol, and Lisinopril. Have increased amlodipine to 10 mg daily. Continue diuresis with IV furosemide. Have added IV hydralazine as needed for blood pressure control. Have resumed patient's home dose Zetia, Lexapro, gabapentin, and tramadol. Have further reduced Lantus to 14 units BID due to low blood sugars (likely related to npo status overnight and improved dietary compliance while admitted). I have started patient on a consistent carb/cardiac diet. Requested nuclear stress test. Pending improved blood pressure control and stress test results, anticipate patient will be ready for discharge tomorrow afternoon (less than 2-midnights).
[2018-12-27] MEDS: TRAMADOL HCL 50 MG TABLET PO SCH (21:43)
[2018-12-27] MEDS: INSULIN GLARGINE,HUM.REC.ANLOG 1,000 UNIT/10 ML VIAL SUBCUT SCH (21:45)
[2018-12-27] MEDS ORDERED: CARVEDILOL 12.5 MG TABLET PO SCH (22:00)
[2018-12-28] MEDS: INSULIN LISPRO 100 UNIT/ML 3 ML VIAL SUBCUT SCH ×4 (01:09→18:08)
[2018-12-28] MEDS: HEPARIN SOD (PORCINE) 5,000 UNIT/ML 1 ML VIAL SUBCUT SCH ×3 (05:19→22:32)
[2018-12-28] MEDS: TRAMADOL HCL 50 MG TABLET PO SCH ×3 (05:28→22:34)
[2018-12-28 06:03] LABS: ANION GAP 5 (5-19); BLOOD UREA NITROGEN 36 mg/dL (7-20); CALCIUM 8.4 mg/dL (8.4-10.2); CARBON DIOXIDE 28 mmol/L (22-30); CHLORIDE 108 mmol/L (98-107); GLUCOSE 99 mg/dL (75-110); POTASSIUM 4.4 mmol/L (3.6-5.0)
[2018-12-28] MEDS: CEFTRIAXONE 1 GM/D5W RTU 1 GM/50 ML RTUPB IV SCH (08:53)
[2018-12-28] MEDS ORDERED: (PENDING PHARMACY ID) (Potassium Chloride [Klor-Con M20] 20 MEQ) PO SCH (10:00)
[2018-12-28] MEDS ORDERED: AMLODIPINE BESYLATE 5 MG TABLET PO SCH ×2 (10:00)
[2018-12-28] MEDS ORDERED: (PENDING PHARMACY ID) (Mirabegron [Myrbetriq] 50 MG) PO SCH (10:00)
[2018-12-28] MEDS: DOCUSATE SODIUM 100 MG CAPSULE PO SCH (12:10)
[2018-12-28] MEDS: INSULIN GLARGINE,HUM.REC.ANLOG 1,000 UNIT/10 ML VIAL SUBCUT SCH ×2 (12:11→22:28)
[2018-12-28] MEDS: EZETIMIBE 10 MG TABLET PO SCH (12:11)
[2018-12-28] MEDS: ESCITALOPRAM OXALATE 10 MG TABLET PO SCH (12:12)
[2018-12-28] MEDS: POTASSIUM CHLORIDE 10 MEQ CAPSULE.ER PO SCH ×2 (12:12→13:32)
[2018-12-28] MEDS: CARVEDILOL 12.5 MG TABLET PO SCH ×2 (12:13→22:36)
[2018-12-28] MEDS: PANTOPRAZOLE SODIUM 40 MG TABLET.DR PO SCH (12:14)
[2018-12-28] MEDS: ASPIRIN 81 MG TABLET, ENT COATED PO SCH (12:15)
[2018-12-28] MEDS: LISINOPRIL 10 MG TABLET PO SCH (12:15)
[2018-12-28] MEDS: FUROSEMIDE INJ/PF 40 MG/4 ML SDV IV SCH ×2 (12:19→22:33)
--- NOTE | 2018-12-28 12:30 | PDOC PROGRESS REPORT ---
Subjective Progress Note for:: 12/28/18 Subjective:: FINA HERNÁNDEZ is a 63 year old female with a past medical history of morbid obesity, obstructive sleep apnea, home oxygen dependent COPD, insulin-dependent diabetes, CKD 3 and hypertension. She presents after 2 days of left-sided chest pain worsened by minimal exertion. In the emergency department she is found to have a systolic blood pressure of 220/100. She receives nitrates, Lasix and BiPAP. Her chest pain was associated with shortness of breath and diaphoresis. Denying nausea or palpitations. Episodes last approximately 30 minutes reside with rest. She is minimally active at baseline and severely debilitated, transferring from bed or chair to commode with maximal effort. She denies recent changes in medications but admits to noncompliance with diet and BiPAP. 12/28/2018. No acute events overnight. Patient resting comfortably in bed, in no apparent distress, denies any fever, chills, nausea, vomiting, diarrhea, constipation or any urinary symptoms. BP not optimized. Possible discharge home tomorrow. Reason For Visit: HTN URGENCY CP,HEART FAILURE Physical Exam Vital Signs: Temp Pulse Resp BP Pulse Ox 98.0 F 81 16 159/79 H 95 12/28/18 08:00 12/28/18 08:00 12/28/18 08:00 12/28/18 08:00 12/28/18 08:00 Intake & Output 12/27/18 12/28/18 12/29/18 06:59 06:59 06:59 Intake Total 840 Output Total 150 Balance -150 840 Weight 124.7 kg 126.5 kg General appearance: PRESENT: morbidly obese Head exam: PRESENT: atraumatic, normocephalic Respiratory exam: PRESENT: clear to auscultation vadim. ABSENT: rales, rhonchi, wheezes Cardiovascular exam: PRESENT: RRR. ABSENT: diastolic murmur, rubs, systolic murmur GI/Abdominal exam: PRESENT: normal bowel sounds, soft. ABSENT: distended, guarding, mass, organolmegaly, rebound, tenderness Extremities exam: PRESENT: full ROM. ABSENT: calf tenderness, clubbing, pedal edema Neurological exam: PRESENT: alert, awake, oriented to person, oriented to place, oriented to time, oriented to situation, CN II-XII grossly intact. ABSENT: motor sensory deficit Results Laboratory Results: 12/26/18 20:00 12/28/18 05:09 12/28/18 05:09 Sodium 140.5 Potassium 4.4 Chloride 108 H Carbon Dioxide 28 Anion Gap 5 BUN 36 H Creatinine 2.82 H Est GFR ( Amer) 20 L Glucose 99 Calcium 8.4 12/26/18 23:11 Clean Catch Midstream Urine Culture - Final Escherichia Coli 12/26/18 12/27/18 12/27/18 20:00 01:10 06:36 Troponin I 0.014 0.014 < 0.012 NT-Pro-B Natriuret Pep 4320 H 12/27/18 13:16 Troponin I < 0.012 NT-Pro-B Natriuret Pep Impressions: Chest X-Ray 12/26/18 18:51 IMPRESSION: Mild diffuse interstitial pulmonary opacity and small bilateral pleural effusions, likely edema in the setting of cardiomegaly. Assessment and Plan - Diagnosis (1) Hypertensive urgency Is this a current diagnosis for this admission?: Yes Plan: Not controlled. [id number] Home meds are: Lisinopril 20 mg p.o. daily, Lasix 40 mg p.o. daily, carvedilol 12.5 mg p.o. daily, amlodipine 5 mg p.o. daily. Continue: Lasix 40 mg IV twice daily. Amlodipine 5 mg p.o. daily. Lisinopril 20 mg p.o. daily. Increase Coreg to 25 mg p.o. twice daily. Continue PRN hydralazine. Adjust meds as needed. Outpatient PCP follow-up. (2) CHF (congestive heart failure) Qualifiers: Heart failure type: other Qualified Code(s): I50.9 - Heart failure, unspecified Is this a current diagnosis for this admission?: Yes Plan: Acute combined systolic and diastolic CHF exacerbation. Troponins <0.012. Denies any chest pain. BNP 4320 on admission. BNP 64229 on 09/28/2018. [place] 38418-04494 the last 2 years. 12/23/2018. 2D echo. LVEF 55%. Grade 1/4 or mild diastolic dysfunction. Continue volume restriction, diuretics, REGAN, beta-blockers, strict in and out, daily weights, cardiac diet. (3) Chest pain Qualifiers: Chest pain type: unspecified Qualified Code(s): R07.9 - Chest pain, unspecified Is this a current diagnosis for this admission?: Yes Plan: Resolved. Due to hypertensive urgency. Cardiac enzymes <0.012 x 3. Continue aspirin, statins, morphine as needed, nitrates as needed. (4) Acute kidney injury superimposed on chronic kidney disease Is this a current diagnosis for this admission?: Yes Plan: Most likely due to uncontrolled long-standing hypertension. Creatinine back to baseline. Avoid nephrotoxic meds. Monitor volume status and electrolytes replace as needed. Outpatient PCP and nephrology follow-up. (5) Anemia Qualifiers: Anemia type: due to chronic kidney disease Chronic kidney disease stage: stage 3 (moderate) Qualified Code(s): N18.3 - Chronic kidney disease, stage 3 (moderate); D63.1 - Anemia in chronic kidney disease Is this a current diagnosis for this admission?: Yes Plan: Most likely due to CKD. Denies any vaginal bleed, hematemesis, hematuria, hemoptysis, hematochezia or melena. Monitor H&H. Supportive transfusions. Outpatient PCP and nephrology follow-up. Patient may need Procrit infusion as outpatient. (6) Diabetes mellitus type 2 in obese Is this a current diagnosis for this admission?: Yes Plan: Controlled. Hemoglobin A1c 7.8%. Home meds are insulin glargine 30 units subcutaneous twice daily. Continue basal, prandial, and sliding scale insulin. Hypoglycemic protocol, Accu-Chek. Adjust dose as needed. Outpatient PCP follow-up. (7) Acute UTI (urinary tract infection) Is this a current diagnosis for this admission?: Yes Plan: Due to E. coli. Day 1 IV ceftriaxone. (8) Coronary artery disease Qualifiers: Coronary Disease-Associated Artery/Lesion type: [place] artery Is this a current diagnosis for this admission?: Yes Plan: Denies any anginal chest pain. Continue antiplatelets, statins, beta-blockers, REGAN. Uptitrate beta-blockers and REGAN as tolerated. (9) Depression Qualifiers: Depression Type: major depressive disorder Is this a current diagnosis for this admission?: Yes Plan: Denies any homicidal or suicidal ideation. Restart home meds. Outpatient PCP follow-up. (10) Morbid obesity with BMI of 45.0-49.9, adult Is this a current diagnosis for this admission?: Yes Plan: TSH WNL. Diet and lifestyle modification recommended. May be a candidate for bariatric intervention.
[2018-12-28] MEDS ORDERED: LISINOPRIL 10 MG TABLET PO ONE (13:30)
[2018-12-28] MEDS ORDERED: REGADENOSON INJ 0.4 MG/5 ML DISP.SYRIN IV ONE (14:26)
[2018-12-28] MEDS: GABAPENTIN 300 MG CAPSULE PO SCH (18:07)
--- NOTE | 2018-12-28 22:54 | DRAGON STRESS TEST REPORT ---
Intravenous Lexiscan Cardiolite stress test using single photon emmision computerized tomography. Date of procedure: 02/27/2019.Ordering Provider: Ms. Bree Mata NP Patient's status Inpatient. Indication: Chest pain. Coronary risk factors: Age, diabetes mellitus, hypertension, dyslipidemia, and family history of coronary artery disease. Resting EKG: Sinus rhythm low voltage throughout. Poor R wave leads V1 to V6 Stress EKG: No changes of ischemia. The patient had no chest pain or discomfort, and there were no arrhythmias seen. Reason for termination: Protocol. Conclusions: Normal EKG and hemodynamic response to IV Lexiscan. Nuclear data: At rest the patient was given 15.02 millicuries of technetium 99m sestamibi injected intravenously. As per protocol rest non gated SPECT images were obtained. Subsequently the patient was given intravenous Lexiscan at a dose of 0.4 mg in 5 mL intravenously, followed by flush with normal saline. Subsequently the stress dose of 46.8 millicuries of technetium 99m sestamibi was injected intravenously. As per protocol stress gated images were obtained. Nuclear interpretation: Review of images showed that poor quality study due to the patient's body habitus. In spite of this all segments of the myocardium had normal perfusion at rest, and normal perfusion post stress with IV Lexiscan. All segments of the myocardium had normal motion, contraction, and thickening by gated study. T. I D. ratio was normal at 1.12. There is no transient ischemic dilatation of the left ventricle. Computer read rest, and stress left ventricular ejection fraction were 36 %, and 38 %, respectively. Visually both the stress and rest ejection fractions were normal, and greater than 55%. Conclusion: 1. There is no scintigraphic evidence of Lexiscan induced myocardial ischemia. 2. There is no scintigraphic evidence of myocardial infarction/scar. 3. Check echo for LV ejection fraction correlation. Recommendations: Aggressive risk factor modification, and treating the underlying co- morbidities. MTDD
[2018-12-29] MEDS: INSULIN LISPRO 100 UNIT/ML 3 ML VIAL SUBCUT SCH ×5 (00:14→21:38)
[2018-12-29] MEDS: TRAMADOL HCL 50 MG TABLET PO SCH ×3 (05:34→21:40)
[2018-12-29] MEDS: HEPARIN SOD (PORCINE) 5,000 UNIT/ML 1 ML VIAL SUBCUT SCH ×3 (05:35→21:47)
[2018-12-29 07:26] LABS: ABSOLUTE BASOPHILS # (AUTO) 0.1 10^3/uL (0.0-0.2); ABSOLUTE EOSINOPHILS # (AUTO) 0.2 10^3/uL (0.0-0.6); ABSOLUTE LYMPHOCYTES (AUTO) 2.5 10^3/uL (0.5-4.7); ABSOLUTE MONOCYTES (AUTO) 0.8 10^3/uL (0.1-1.4); ABSOLUTE NEUT (AUTO) 3.1 10^3/uL (1.7-8.2); BASOPHILS % (AUTO) 0.8 % (0-2); EOSINOPHILS % (AUTO) 3.1 % (0-6); HEMATOCRIT 22.7 % (36.0-47.0); LYMPHOCYTES % (AUTO) 37.5 % (13-45); MEAN CORPUSCULAR HEMOGLOBIN 31.5 pg (27.0-33.4); MEAN CORPUSCULAR HGB CONC 33.9 g/dL (32.0-36.0); MEAN CORPUSCULAR VOLUME 93 fl (80-97); PLATELET COUNT 259 10^3/uL (150-450); RED BLOOD COUNT 2.45 10^6/uL (3.72-5.28); RED CELL DISTRIBUTION WIDTH 15.6 % (11.5-14.0); SEGMENTED NEUTROPHILS % (AUTO) 46.6 % (42-78); TOTAL CELLS COUNTED % (AUTO) 100 %; WHITE BLOOD COUNT 6.6 10^3/uL (4.0-10.5)
[2018-12-29 07:30] LABS: HEMOGLOBIN 7.7 g/dL (12.0-15.5)
[2018-12-29 07:47] LABS: ALBUMIN 2.9 g/dL (3.5-5.0); ALKALINE PHOSPHATASE 67 U/L (38-126); ANION GAP 6 (5-19); ASPARTATE AMINO TRANSFERASE 16 U/L (14-36); BILIRUBIN,DIRECT 0.1 mg/dL (0.0-0.4); BILIRUBIN,TOTAL 0.4 mg/dL (0.2-1.3); BLOOD UREA NITROGEN 45 mg/dL (7-20); CALCIUM 8.6 mg/dL (8.4-10.2); CARBON DIOXIDE 28 mmol/L (22-30); CHLORIDE 107 mmol/L (98-107); GLUCOSE 89 mg/dL (75-110); POTASSIUM 4.5 mmol/L (3.6-5.0); TOTAL PROTEIN 5.4 g/dL (6.3-8.2)
[2018-12-29] MEDS ORDERED: LISINOPRIL 10 MG TABLET PO SCH ×2 (10:00→11:00)
[2018-12-29] MEDS: CEFTRIAXONE 1 GM/D5W RTU 1 GM/50 ML RTUPB IV SCH (10:36)
[2018-12-29] MEDS: DOCUSATE SODIUM 100 MG CAPSULE PO SCH (10:36)
[2018-12-29] MEDS: ASPIRIN 81 MG TABLET, ENT COATED PO SCH (10:36)
[2018-12-29] MEDS: FUROSEMIDE INJ/PF 40 MG/4 ML SDV IV SCH (10:37)
[2018-12-29] MEDS: PANTOPRAZOLE SODIUM 40 MG TABLET.DR PO SCH (10:37)
[2018-12-29] MEDS: CARVEDILOL 12.5 MG TABLET PO SCH ×3 (10:37→21:41)
[2018-12-29] MEDS: POTASSIUM CHLORIDE 10 MEQ CAPSULE.ER PO SCH (10:37)
[2018-12-29] MEDS: ESCITALOPRAM OXALATE 10 MG TABLET PO SCH (10:37)
[2018-12-29] MEDS: LISINOPRIL 10 MG TABLET PO SCH (10:38)
[2018-12-29] MEDS: AMLODIPINE BESYLATE 5 MG TABLET PO SCH (10:38)
[2018-12-29] MEDS: EZETIMIBE 10 MG TABLET PO SCH (10:38)
[2018-12-29] MEDS: INSULIN GLARGINE,HUM.REC.ANLOG 1,000 UNIT/10 ML VIAL SUBCUT SCH ×2 (10:40→21:45)
--- NOTE | 2018-12-29 11:22 | PDOC PROGRESS REPORT ---
Subjective Progress Note for:: 12/29/18 Subjective:: FINA HERNÁNDEZ is a 63 year old female with a past medical history of morbid obesity, obstructive sleep apnea, home oxygen dependent COPD, insulin-dependent diabetes, CKD 3 and hypertension. She presents after 2 days of left-sided chest pain worsened by minimal exertion. In the emergency department she is found to have a systolic blood pressure of 220/100. She receives nitrates, Lasix and BiPAP. Her chest pain was associated with shortness of breath and diaphoresis. Denying nausea or palpitations. Episodes last approximately 30 minutes reside with rest. She is minimally active at baseline and severely debilitated, transferring from bed or chair to commode with maximal effort. She denies recent changes in medications but admits to noncompliance with diet and BiPAP. 12/28/2018. No acute events overnight. Patient resting comfortably in bed, in no apparent distress, denies any fever, chills, nausea, vomiting, diarrhea, constipation or any urinary symptoms. BP not optimized. Possible discharge home tomorrow. 12/29/2018. No acute events overnight. Patient comfortably resting in bed in no apparent distress, denies any fever, chills, nausea, vomiting, diarrhea, constipation or any urinary symptoms. P.o. tolerant, having normal bowel and bladder movements. BP still not optimized, unfortunately creatinine is trending up, patient has not been evaluated by PT. Once BP is optimized and creatinine stabilized patient will be either going to home or short-term rehab based on PT evaluation and input. Reason For Visit: HTN URGENCY CP,HEART FAILURE Physical Exam Vital Signs: Temp Pulse Resp BP Pulse Ox 98.0 F 58 L 16 129/64 H 93 12/29/18 07:56 12/29/18 09:58 12/29/18 07:56 12/29/18 09:58 12/29/18 07:56 Intake & Output 12/28/18 12/29/18 12/30/18 06:59 06:59 06:59 Intake Total 840 2110 Balance 840 2110 Weight 126.5 kg 123.9 kg General appearance: PRESENT: morbidly obese Head exam: PRESENT: atraumatic, normocephalic Respiratory exam: PRESENT: clear to auscultation vadim. ABSENT: rales, rhonchi, wheezes Cardiovascular exam: PRESENT: RRR. ABSENT: diastolic murmur, rubs, systolic murmur GI/Abdominal exam: PRESENT: normal bowel sounds, soft. ABSENT: distended, guarding, mass, organolmegaly, rebound, tenderness Neurological exam: PRESENT: alert, awake, oriented to person, oriented to place, oriented to time, oriented to situation, CN II-XII grossly intact. ABSENT: motor sensory deficit Results Laboratory Results: 12/29/18 06:21 12/29/18 06:21 12/29/18 12/29/18 06:21 06:21 WBC 6.6 RBC 2.45 L Hgb 7.7 L Hct 22.7 L MCV 93 MCH 31.5 MCHC 33.9 RDW 15.6 H Plt Count 259 Seg Neutrophils % 46.6 Sodium 140.9 Potassium 4.5 Chloride 107 Carbon Dioxide 28 Anion Gap 6 BUN 45 H Creatinine 3.04 H Est GFR ( Amer) 19 L Glucose 89 Calcium 8.6 Magnesium 1.7 Total Bilirubin 0.4 AST 16 Alkaline Phosphatase 67 Total Protein 5.4 L Albumin 2.9 L 12/26/18 23:11 Clean Catch Midstream Urine Culture - Final Escherichia Coli 12/26/18 12/27/18 12/27/18 20:00 01:10 06:36 Troponin I 0.014 0.014 < 0.012 NT-Pro-B Natriuret Pep 4320 H 12/27/18 13:16 Troponin I < 0.012 NT-Pro-B Natriuret Pep Impressions: Chest X-Ray 12/26/18 18:51 IMPRESSION: Mild diffuse interstitial pulmonary opacity and small bilateral pleural effusions, likely edema in the setting of cardiomegaly. Assessment and Plan - Diagnosis (1) Hypertensive urgency Is this a current diagnosis for this admission?: Yes Plan: Improving. Not optimized. SBP 132-175 Home meds are: Lisinopril 20 mg p.o. daily, Lasix 40 mg p.o. daily, carvedilol 12.5 mg p.o. daily, amlodipine 5 mg p.o. daily. 12/29/2018 DC'd Lasix due to worsening renal function. Continue Amlodipine 5 mg p.o. daily. Lisinopril 20 mg p.o. daily. Decrease Coreg back to 12.5 mg p.o. twice daily due to bradycardia. Continue PRN hydralazine. Adjust meds as needed. Outpatient PCP follow-up. (2) CHF (congestive heart failure) Qualifiers: Heart failure type: other Qualified Code(s): I50.9 - Heart failure, unspecified Is this a current diagnosis for this admission?: Yes Plan: Acute combined systolic and diastolic CHF exacerbation. Troponins <0.012. Denies any chest pain. BNP 4320 on admission. BNP 50309 on 09/28/2018. [place] [address] the last 2 years. 12/23/2018. 2D echo. LVEF 55%. Grade 1/4 or mild diastolic dysfunction. Continue volume restriction, REGAN, beta-blockers, strict in and out, daily weights, cardiac diet. Hold Lasix due to worsening renal function. (3) Chest pain Qualifiers: Chest pain type: unspecified Qualified Code(s): R07.9 - Chest pain, unspecified Is this a current diagnosis for this admission?: Yes Plan: Resolved. Due to hypertensive urgency. Cardiac enzymes <0.012 x 3. Continue aspirin, statins, morphine as needed, nitrates as needed. (4) Acute kidney injury superimposed on chronic kidney disease Is this a current diagnosis for this admission?: Yes Plan: Worsening renal function likely due to overdiuresis. Nonoliguric. Making adequate urine. Most likely due to uncontrolled long-standing hypertension. Avoid nephrotoxic meds. DC Lasix. If renal function does not stabilize we will consult nephrology. Monitor volume status and electrolytes replace as needed. Outpatient PCP and nephrology follow-up. (5) Anemia Qualifiers: Anemia type: due to chronic kidney disease Chronic kidney disease stage: stage 3 (moderate) Qualified Code(s): N18.3 - Chronic kidney disease, stage 3 (moderate); D63.1 - Anemia in chronic kidney disease Is this a current diagnosis for this admission?: Yes Plan: Most likely due to CKD. Denies any vaginal bleed, hematemesis, hematuria, hemoptysis, hematochezia or melena. 09/01/2018. Iron 55.2, TIBC 219, saturation 25%, ferritin 303. 12/29/2018 received 1 dose of Procrit. Monitor H&H. Supportive transfusions. Outpatient PCP and nephrology follow-up. (6) Diabetes mellitus type 2 in obese Is this a current diagnosis for this admission?: Yes Plan: Controlled. Hemoglobin A1c 7.8%. Home meds are insulin glargine 30 units subcutaneous twice daily. Continue basal, prandial, and sliding scale insulin. Hypoglycemic protocol, Accu-Chek. Adjust dose as needed. Outpatient PCP follow-up. (7) Acute UTI (urinary tract infection) Is this a current diagnosis for this admission?: Yes Plan: Due to E. coli. Day 2 IV ceftriaxone. (8) Coronary artery disease Qualifiers: Coronary Disease-Associated Artery/Lesion type: [place] artery Is this a current diagnosis for this admission?: Yes Plan: Denies any anginal chest pain. Continue antiplatelets, statins, beta-blockers, REGAN. Uptitrate beta-blockers and REGAN as tolerated. (9) Depression Qualifiers: Depression Type: major depressive disorder Is this a current diagnosis for this admission?: Yes Plan: Denies any homicidal or suicidal ideation. Restart home meds. Outpatient PCP follow-up. (10) Morbid obesity with BMI of 45.0-49.9, adult Is this a current diagnosis for this admission?: Yes Plan: TSH WNL. Diet and lifestyle modification recommended. May be a candidate for bariatric intervention.
[2018-12-29] MEDS ORDERED: EPOETIN ALFA-EPBX 10,000 UNIT/ML VIAL (NON-ESRD) SUBCUT ONE (14:00)
[2018-12-29] MEDS: GABAPENTIN 300 MG CAPSULE PO SCH (18:11)
[2018-12-29] MEDS ORDERED: FUROSEMIDE INJ/PF 40 MG/4 ML SDV IV SCH (22:00)
[2018-12-30 04:51] LABS: ABSOLUTE BASOPHILS # (AUTO) 0.1 10^3/uL (0.0-0.2); ABSOLUTE EOSINOPHILS # (AUTO) 0.2 10^3/uL (0.0-0.6); ABSOLUTE LYMPHOCYTES (AUTO) 2.2 10^3/uL (0.5-4.7); ABSOLUTE MONOCYTES (AUTO) 0.8 10^3/uL (0.1-1.4); ABSOLUTE NEUT (AUTO) 3.5 10^3/uL (1.7-8.2); HEMATOCRIT 23.4 % (36.0-47.0); HEMOGLOBIN 8.1 g/dL (12.0-15.5); LYMPHOCYTES % (AUTO) 31.8 % (13-45); MEAN CORPUSCULAR HEMOGLOBIN 32.3 pg (27.0-33.4); MEAN CORPUSCULAR HGB CONC 34.7 g/dL (32.0-36.0); MEAN CORPUSCULAR VOLUME 93 fl (80-97); PLATELET COUNT 258 10^3/uL (150-450); RED BLOOD COUNT 2.51 10^6/uL (3.72-5.28); RED CELL DISTRIBUTION WIDTH 15.5 % (11.5-14.0); SEGMENTED NEUTROPHILS % (AUTO) 52.2 % (42-78); TOTAL CELLS COUNTED % (AUTO) 100 %; WHITE BLOOD COUNT 6.8 10^3/uL (4.0-10.5)
[2018-12-30 05:16] LABS: ALBUMIN 2.9 g/dL (3.5-5.0); ALKALINE PHOSPHATASE 66 U/L (38-126); ANION GAP 5 (5-19); ASPARTATE AMINO TRANSFERASE 14 U/L (14-36); BILIRUBIN,DIRECT 0.1 mg/dL (0.0-0.4); BILIRUBIN,TOTAL 0.2 mg/dL (0.2-1.3); BLOOD UREA NITROGEN 47 mg/dL (7-20); CALCIUM 8.6 mg/dL (8.4-10.2); CARBON DIOXIDE 30 mmol/L (22-30); CHLORIDE 105 mmol/L (98-107); GLUCOSE 91 mg/dL (75-110); POTASSIUM 4.5 mmol/L (3.6-5.0); TOTAL PROTEIN 5.5 g/dL (6.3-8.2)
[2018-12-30] MEDS: TRAMADOL HCL 50 MG TABLET PO SCH ×3 (06:34→23:39)
[2018-12-30] MEDS: HEPARIN SOD (PORCINE) 5,000 UNIT/ML 1 ML VIAL SUBCUT SCH ×3 (06:35→23:40)
[2018-12-30] MEDS: INSULIN LISPRO 100 UNIT/ML 3 ML VIAL SUBCUT SCH ×4 (10:06→22:00)
[2018-12-30] MEDS: CEFTRIAXONE 1 GM/D5W RTU 1 GM/50 ML RTUPB IV SCH (10:06)
[2018-12-30] MEDS: PANTOPRAZOLE SODIUM 40 MG TABLET.DR PO SCH (10:09)
[2018-12-30] MEDS: AMLODIPINE BESYLATE 5 MG TABLET PO SCH (10:09)
[2018-12-30] MEDS: EZETIMIBE 10 MG TABLET PO SCH (10:09)
[2018-12-30] MEDS: LISINOPRIL 10 MG TABLET PO SCH (10:09)
[2018-12-30] MEDS: ASPIRIN 81 MG TABLET, ENT COATED PO SCH (10:09)
[2018-12-30] MEDS: ESCITALOPRAM OXALATE 10 MG TABLET PO SCH (10:10)
[2018-12-30] MEDS: DOCUSATE SODIUM 100 MG CAPSULE PO SCH (10:10)
[2018-12-30] MEDS: CARVEDILOL 12.5 MG TABLET PO SCH ×2 (10:10→23:38)
[2018-12-30] MEDS: POTASSIUM CHLORIDE 10 MEQ CAPSULE.ER PO SCH (10:11)
[2018-12-30] MEDS: INSULIN GLARGINE,HUM.REC.ANLOG 1,000 UNIT/10 ML VIAL SUBCUT SCH ×2 (10:15→23:40)
--- NOTE | 2018-12-30 11:28 | PDOC PROGRESS REPORT ---
Subjective Progress Note for:: 12/30/18 Subjective:: FINA HERNÁNDEZ is a 63 year old female with a past medical history of morbid obesity, obstructive sleep apnea, home oxygen dependent COPD, insulin-dependent diabetes, CKD 3 and hypertension. She presents after 2 days of left-sided chest pain worsened by minimal exertion. In the emergency department she is found to have a systolic blood pressure of 220/100. She receives nitrates, Lasix and BiPAP. Her chest pain was associated with shortness of breath and diaphoresis. Denying nausea or palpitations. Episodes last approximately 30 minutes reside with rest. She is minimally active at baseline and severely debilitated, transferring from bed or chair to commode with maximal effort. She denies recent changes in medications but admits to noncompliance with diet and BiPAP. 12/28/2018. No acute events overnight. Patient resting comfortably in bed, in no apparent distress, denies any fever, chills, nausea, vomiting, diarrhea, constipation or any urinary symptoms. BP not optimized. Possible discharge home tomorrow. 12/29/2018. No acute events overnight. Patient comfortably resting in bed in no apparent distress, denies any fever, chills, nausea, vomiting, diarrhea, constipation or any urinary symptoms. P.o. tolerant, having normal bowel and bladder movements. BP still not optimized, unfortunately creatinine is trending up, patient has not been evaluated by PT. Once BP is optimized and creatinine stabilized patient will be either going to home or short-term rehab based on PT evaluation and input. 12/30/2018. No acute events overnight. Patient is sitting in bed enjoying her breakfast, reports generalized weakness otherwise denies any fever, chills, nausea, vomiting, diarrhea, constipation or any urinary symptoms. Making [place] quate amount of urine. Renal function is worsening and I have contacted Dr. Ramirez for evaluation. Reason For Visit: HTN URGENCY CP,HEART FAILURE Physical Exam Vital Signs: Temp Pulse Resp BP Pulse Ox 97.6 F 72 20 142/56 H 93 12/30/18 08:13 12/30/18 08:13 12/30/18 08:13 12/30/18 08:13 12/30/18 08:13 Intake & Output 12/29/18 12/30/18 12/31/18 06:59 06:59 06:59 Intake Total 2110 1370 Balance 2110 1370 Weight 123.9 kg 127.1 kg General appearance: PRESENT: morbidly obese Respiratory exam: PRESENT: clear to auscultation vadim. ABSENT: rales, rhonchi, wheezes Cardiovascular exam: PRESENT: RRR. ABSENT: diastolic murmur, rubs, systolic murmur GI/Abdominal exam: PRESENT: normal bowel sounds, soft. ABSENT: distended, guarding, mass, organolmegaly, rebound, tenderness Extremities exam: PRESENT: full ROM. ABSENT: calf tenderness, clubbing, pedal edema Neurological exam: PRESENT: alert, awake, oriented to person, oriented to place, oriented to time, oriented to situation, CN II-XII grossly intact. ABSENT: motor sensory deficit Results Laboratory Results: 12/30/18 04:00 12/30/18 04:00 12/30/18 12/30/18 04:00 04:00 WBC 6.8 RBC 2.51 L Hgb 8.1 L Hct 23.4 L MCV 93 MCH 32.3 MCHC 34.7 RDW 15.5 H Plt Count 258 Seg Neutrophils % 52.2 Sodium 139.8 Potassium 4.5 Chloride 105 Carbon Dioxide 30 Anion Gap 5 BUN 47 H Creatinine 3.65 H Est GFR ( Amer) 15 L Glucose 91 Calcium 8.6 Magnesium 1.8 Total Bilirubin 0.2 AST 14 Alkaline Phosphatase 66 Total Protein 5.5 L Albumin 2.9 L 12/26/18 12/27/18 12/27/18 20:00 01:10 06:36 Troponin I 0.014 0.014 < 0.012 NT-Pro-B Natriuret Pep 4320 H 12/27/18 13:16 Troponin I < 0.012 NT-Pro-B Natriuret Pep Impressions: Chest X-Ray 12/26/18 18:51 IMPRESSION: Mild diffuse interstitial pulmonary opacity and small bilateral pleural effusions, likely edema in the setting of cardiomegaly. Assessment and Plan - Diagnosis (1) Hypertensive urgency Is this a current diagnosis for this admission?: Yes Plan: Resolved. Normotensive. Home meds are: Lisinopril 20 mg p.o. daily, Lasix 40 mg p.o. daily, carvedilol 12.5 mg p.o. daily, amlodipine 5 mg p.o. daily. 12/29/2018 DC'd Lasix due to worsening renal function. Continue Amlodipine 5 mg p.o. daily. Lisinopril 20 mg p.o. daily. Decrease Coreg back to 12.5 mg p.o. twice daily due to bradycardia. Continue PRN hydralazine. Adjust meds as needed. Outpatient PCP follow-up. (2) CHF (congestive heart failure) Qualifiers: Heart failure type: other Qualified Code(s): I50.9 - Heart failure, unspe cified Is this a current diagnosis for this admission?: Yes Plan: Acute combined systolic and diastolic CHF exacerbation. Troponins <0.012. Denies any chest pain. BNP 4320 on admission. BNP 97676 on 09/28/2018. [place] 56051-[address]75 the last 2 years. 12/23/2018. 2D echo. LVEF 55%. Grade 1/4 or mild diastolic dysfunction. Continue volume restriction, REGAN, beta-blockers, strict in and out, daily weights, cardiac diet. Hold Lasix due to worsening renal function. (3) Chest pain Qualifiers: Chest pain type: unspecified Qualified Code(s): R07.9 - Chest pain, unspecified Is this a current diagnosis for this admission?: Yes Plan: Resolved. Due to hypertensive urgency. Cardiac enzymes <0.012 x 3. Continue aspirin, statins, morphine as needed, nitrates as needed. (4) Acute kidney injury superimposed on chronic kidney disease Is this a current diagnosis for this admission?: Yes Plan: Worsening renal function likely due to overdiuresis. Nonoliguric. Making adequate urine. Most likely due to uncontrolled long-standing hypertension. Avoid nephrotoxic meds. DC Lasix. Monitor volume status and electrolytes replace as needed. Nephrology consulted. Pending recommendations. (5) Anemia Qualifiers: Anemia type: due to chronic kidney disease Chronic kidney disease stage: stage 3 (moderate) Qualified Code(s): N18.3 - Chronic kidney disease, stage 3 (moderate); D63.1 - Anemia in chronic kidney disease Is this a current diagnosis for this admission?: Yes Plan: Most likely due to CKD. Denies any vaginal bleed, hematemesis, hematuria, hemoptysis, hematochezia or [place]. 09/01/2018. Iron 55.2, TIBC 219, saturation 25%, ferritin 303. 12/29/2018 received 1 dose of Procrit. Monitor H&H. Supportive transfusions. Outpatient PCP and nephrology follow-up. (6) Diabetes mellitus type 2 in obese Is this a current diagnosis for this admission?: Yes Plan: Controlled. Hemoglobin A1c 7.8%. Home meds are insulin glargine 30 units subcutaneous twice daily. Continue basal, prandial, and sliding scale insulin. Hypoglycemic protocol, Accu-Chek. Adjust dose as needed. Outpatient PCP follow-up. (7) Acute UTI (urinary tract infection) Is this a current diagnosis for this admission?: Yes Plan: Due to E. coli. Day 3 IV ceftriaxone. (8) Coronary artery disease Qualifiers: Coronary Disease-Associated Artery/Lesion type: [place] artery Is this a current diagnosis for this admission?: Yes Plan: Denies any anginal chest pain. Continue antiplatelets, statins, beta-blockers, REGAN. Uptitrate beta-blockers and REGAN as tolerated. (9) Depression Qualifiers: Depression Type: major depressive disorder Is this a current diagnosis for this admission?: Yes Plan: Denies any homicidal or suicidal ideation. Restart home meds. Outpatient PCP follow-up. (10) Morbid obesity with BMI of 45.0-49.9, adult Is this a current diagnosis for this admission?: Yes Plan: TSH WNL. Diet and lifestyle modification recommended. May be a candidate for bariatric intervention.
--- NOTE | 2018-12-30 12:32 | PDOC CONSULTATION ---
Consultation Consult Date: 12/30/18 Provider Consulted: ARTI OSBORN Consult reason:: I was asked to see the patient because of worsening kidney function. History of Present Illness Admission Date/PCP: 12/27/18 01:13 NATACHA CORMIER MD History of Present Illness: FINA HERNÁNDEZ is a 63 year old female known to me with history of chronic kidney disease stage IV, morbid obesity, obstructive sleep apnea not using CPAP, COPD on home oxygen, diabetes mellitus insulin requiring, coronary artery disease, and hypertension who was admitted on 12/27/2018 for chest pain and shortness of breath. She had a Cardiolite Lexiscan stress test which was negative for any reversible ischemia on 12/28/2018. Her initial chest x-ray on presentation showed mild diffuse interstitial pulmonary opacity and small bilateral pleural effusion. She was also severely hypertensive when she presented with a blood pressure of 220/100. She was on Lasix 40 mg IV every 12 hours with potassium replacement since admission and was just discontinued today. Patient states that her chest pain has resolved. She also said that her shortness of breath is much better than she when she came in. She states that she also came in with worsening leg edema which is also improved at this time. Currently she is also being treated with IV ceftriaxone for urinary tract infection secondary to E. coli. Her blood pressure so far has been appropriately controlled. Her urine output is not being quantified unfortunately. Patient's kidney function has been worsening for the last few days. When she came in she had a BUN of 32, creatinine of 2.51 with EGFR of 19. Her baseline creatinine for the last few months this year has been ranging anywhere between 2-2.5. Her current kidney function include a BUN of 47, creatinine of 2.65 with a EGFR of throughout. Her initial urinalysis showed greater than 500 of protein, small blood, WBC of 16 and RBC of 1. She admits feeling tired, weak and she is sleeping a lot. She has slight cough but nothing significant. Otherwise she denies any nausea, vomiting, diarrhea. She states that she eats good and she drinks fluids. She is anemic and had seen media senior recruiter, Dr. Connie menchaca previously. She was given Procrit 10,000 units subcutaneously yesterday. Past Medical History Cardiac Medical History: Reports: Coronary Artery Disease, Hyperlipidemia, Hypertension-primary Pulmonary Medical History: Reports: Asthma, Sleep Apnea - Not using CPAP at home Neurological Medical History: Denies: Seizures Endocrine Medical History: Reports: Diabetes Mellitus Type 2, Obesity Renal/ Medical History: Reports: Chronic Kidney Disease Stage IV Musculoskeltal Medical History: Reports: Arthritis Psychiatric Medical History: Reports: Depression Hematology Medical History: Reports Anemia Past Surgical History Past Surgical History: Reports: Cholecystectomy, Tonsillectomy, Tubal Ligation, Other - Carpal tunnel Social History Information Source: Patient, [facility] Records Lives with: Family Smoking Status: Never Smoker Electronic Cigarette use?: No Frequency of Alcohol Use: None Hx Recreational Drug Use: No Drugs: None Hx Prescription Drug Abuse: No - Advance Directive Resuscitation Status: Full Code Family History Family History: DM - Parents, Hypertension - Parents, Malignancy - Father had kidney cancer Parental Family History Reviewed: Yes Children Family History Reviewed: Yes Sibling(s) Family History Reviewed.: Yes Medication/Allergy Home Medications: Albuterol Sulfate [Proair HFA Inhalation Aerosol 8.5 gm MDI] 2 puff IH Q4HP PRN 12/27/18 Amlodipine Besylate [Norvasc 5 mg Tablet] 5 mg PO DAILY 12/27/18 Aspirin [Adult Aspirin Regimen] 81 mg PO DAILY 12/27/18 Carvedilol [Coreg 12.5 mg Tablet] 12.5 mg PO Q12 12/27/18 Escitalopram Oxalate [Lexapro] 20 mg PO DAILY 12/27/18 Ezetimibe [Zetia 10 mg Tablet] 10 mg PO DAILY 12/27/18 Furosemide [Lasix 40 mg Tablet] 40 mg PO DAILY 12/27/18 Gabapentin [Neurontin 300 mg Capsule] 600 mg PO QPM 12/27/18 Gabapentin [Neurontin 300 mg Capsule] 900 mg PO QAM 12/27/18 Insulin Glargine,Hum.rec.anlog [Lantus Insulin 100 Unit/1 ml 10 ml] 30 units SQ Q12 12/27/18 Lisinopril [Zestril] 20 mg PO DAILYP PRN 12/27/18 Mirabegron [Myrbetriq] 50 mg PO DAILY 12/27/18 Pantoprazole Sodium [Protonix [address] Tablet] 40 mg PO DAILY 12/27/18 Potassium Chloride [Klor-Con M20] 20 meq PO DAILY 12/27/18 Tramadol HCl [Ultram 50 mg Tablet] 50 mg PO Q8 12/27/18 Allergies/Adverse Reactions: No Known Allergies Allergy (Verified 12/26/18 18:43) Review of Systems All systems: reviewed and no additional remarkable complaints except as stated Review of Systems: Constitutional: ABSENT: chills, fatigue, fever(s), headache(s), weight gain, weight loss; admits weakness and fatigue Eyes: ABSENT: visual disturbances Ears: ABSENT: hearing changes Cardiovascular: ABSENT: Orthropnea, palpitations; initial chest pain has resolved, shortness of breath has improved, still has edema but improved. Respiratory: ABSENT: Dyspnea, hemoptysis; admits mild cough. Gastrointestinal: ABSENT: abdominal pain, constipation, diarrhea, hematemesis, hematochezia, nausea, vomiting Genitourinary: ABSENT: dysuria, hematuria Musculoskeletal: ABSENT: joint swelling Integumentary: ABSENT: rash, wounds Neurological: ABSENT: abnormal gait, abnormal speech, confusion, dizziness, focal weakness, numbness, syncope Psychiatric: ABSENT: anxiety, depression Endocrine: ABSENT: cold intolerance, heat intolerance, polydipsia, polyuria Hematologic/Lymphatic: ABSENT: easy bleeding, easy bruising, lymphadenopathy Physical Exam Vital Signs: Temp Pulse Resp BP Pulse Ox 97.6 F 72 20 142/56 H 93 12/30/18 08:13 12/30/18 08:13 12/30/18 08:13 12/30/18 08:13 12/30/18 08:13 Intake & Output 12/29/18 12/30/18 12/31/18 06:59 06:59 06:59 Intake Total 2110 1370 Balance 2110 1370 Weight 123.9 kg 127.1 kg Exam: General appearance: No acute distress, cooperative, well-developed, well- nourished, morbidly obese Head exam: PRESENT: atraumatic, normocephalic Eye exam: PRESENT: Conjunctiva pale, EOMI, PERRLA. ABSENT: conjunctival injection, scleral icterus Mouth exam: PRESENT: moist, neck supple, tongue midline Neck exam: PRESENT: full ROM. ABSENT: carotid bruit, JVD, lymphadenopathy, thyromegaly Respiratory exam: PRESENT: clear to auscultation bilaterally. ABSENT: rales, rhonchi, stridor, wheezes Cardiovascular exam: PRESENT: RRR, +S1, +S2. ABSENT: systolic murmur Pulses: PRESENT: normal radial pulses, normal dorsalis pedis pulses GI/Abdominal exam: PRESENT: normal bowel sounds, soft. ABSENT: guarding, mass, tenderness Rectal exam: Deferred Extremities exam: PRESENT: full ROM. Grade 1 bilateral lower extremity pitting edema ABSENT: calf tenderness Musculoskeletal: PRESENT: full ROM. ABSENT: deformity Neurological exam: PRESENT: alert, Awake, Oriented to person, Oriented to place, Oriented to time, reflexes normal, CN II-XII grossly intact. ABSENT: motor sensory deficit Psychiatric exam: PRESENT: appropriate affect, normal mood. ABSENT: homicidal ideation, suicidal ideation Skin exam: PRESENT: intact, dry, warm. ABSENT: rash Results Laboratory Results: 12/30/18 04:00 12/30/18 04:00 12/30/18 12/30/18 04:00 04:00 WBC 6.8 RBC 2.51 L Hgb 8.1 L Hct 23.4 L MCV 93 MCH 32.3 MCHC 34.7 RDW 15.5 H Plt Count 258 Seg Neutrophils % 52.2 Sodium 139.8 Potassium 4.5 Chloride 105 Carbon Dioxide 30 Anion Gap 5 BUN 47 H Creatinine 3.65 H Est GFR ( Amer) 15 L Glucose 91 Calcium 8.6 Magnesium 1.8 Total Bilirubin 0.2 AST 14 Alkaline Phosphatase 66 Total Protein 5.5 L Albumin 2.9 L 12/26/18 12/27/18 12/27/18 20:00 01:10 06:36 Troponin I 0.014 0.014 < 0.012 NT-Pro-B Natriuret Pep 4320 H 12/27/18 13:16 Troponin I < 0.012 NT-Pro-B Natriuret Pep Impressions: Chest X-Ray 12/26/18 18:51 IMPRESSION: Mild diffuse interstitial pulmonary opacity and small bilateral pleural effusions, likely edema in the setting of cardiomegaly. Assessment & Plan - Diagnosis (1) Acute kidney injury superimposed on chronic kidney disease Is this a current diagnosis for this admission?: Yes Plan: Likely secondary to prerenal factors including diuresis. Patient's baseline serum creatinine usually between 2-2.5. Patient is currently nonoliguric. Agree with discontinuation of Lasix for now. I do think that she needs maintenance diuretics though. Discontinue potassium supplement for now as well. Patient does not need any renal placement therapy at this time. Continue to monitor kidney function and electrolytes. Avoid nephrotoxic medications. Adjust medications according to kidney function. (2) Chronic kidney disease, stage IV (severe) Is this a current diagnosis for this admission?: Yes Plan: Likely secondary to combination of diabetic nephropathy with proteinuria, hypertension and obesity. (3) CHF (congestive heart failure) Qualifiers: Heart failure type: other Qualified Code(s): I50.9 - Heart failure, unspecified Is this a current diagnosis for this admission?: Yes Plan: Presented initially with decompensated congestive heart failure which seems to be improved and compensated at this time with diuresis for the last 3 days since admission. (4) Chest pain Qualifiers: Chest pain type: unspecified Qualified Code(s): R07.9 - Chest pain, unspecified Is this a current diagnosis for this admission?: Yes Plan: Chest pain-free currently. Stress test done was negative for any ischemia. (5) Acute UTI (urinary tract infection) Is this a current diagnosis for this admission?: Yes Plan: Due to E. coli. Currently on IV ceftriaxone. (6) Anemia, chronic disease Is this a current diagnosis for this admission?: Yes Plan: We will check iron panel. Patient received Procrit of 10,000 units subcutaneously, 12/29/2018. She may need to continue this as an outpatient. (7) Diabetes mellitus type 2 in obese Is this a current diagnosis for this admission?: Yes Plan: Well-controlled. (8) HTN (hypertension) Is this a current diagnosis for this admission?: Yes Plan: Improved with current blood pressure regimen. (9) NILO (obstructive sleep apnea) Is this a current diagnosis for this admission?: Yes (10) Morbid obesity with BMI of 45.0-49.9, adult Is this a current diagnosis for this admission?: Yes - Notes Notes: Thank you very much for this consultation. I will follow the patient with you. - Time Time Spent: 50 to 70 Minutes
[2018-12-30 14:45] LABS: RETICULOCYTE COUNT (AUTO) 2.01 % (0.66-2.85)
[2018-12-30 14:49] LABS: IRON(TIBC) 51.5 ug/dL (37-170)
[2018-12-30] MEDS: GABAPENTIN 300 MG CAPSULE PO SCH (17:48)
[2018-12-31 06:16] LABS: ABSOLUTE BASOPHILS # (AUTO) 0.1 10^3/uL (0.0-0.2); ABSOLUTE EOSINOPHILS # (AUTO) 0.2 10^3/uL (0.0-0.6); ABSOLUTE LYMPHOCYTES (AUTO) 2.4 10^3/uL (0.5-4.7); ABSOLUTE MONOCYTES (AUTO) 0.8 10^3/uL (0.1-1.4); ABSOLUTE NEUT (AUTO) 4.3 10^3/uL (1.7-8.2); BASOPHILS % (AUTO) 0.8 % (0-2); EOSINOPHILS % (AUTO) 2.4 % (0-6); HEMATOCRIT 24.4 % (36.0-47.0); HEMOGLOBIN 8.4 g/dL (12.0-15.5); LYMPHOCYTES % (AUTO) 31.2 % (13-45); MEAN CORPUSCULAR HEMOGLOBIN 32.3 pg (27.0-33.4); MEAN CORPUSCULAR HGB CONC 34.3 g/dL (32.0-36.0); MEAN CORPUSCULAR VOLUME 94 fl (80-97); MONOCYTES % (AUTO) 10.5 % (3-13); PLATELET COUNT 272 10^3/uL (150-450); RED BLOOD COUNT 2.58 10^6/uL (3.72-5.28); RED CELL DISTRIBUTION WIDTH 15.5 % (11.5-14.0); SEGMENTED NEUTROPHILS % (AUTO) 55.1 % (42-78); TOTAL CELLS COUNTED % (AUTO) 100 %; WHITE BLOOD COUNT 7.8 10^3/uL (4.0-10.5)
[2018-12-31] MEDS: TRAMADOL HCL 50 MG TABLET PO SCH ×3 (06:17→22:33)
[2018-12-31] MEDS: HEPARIN SOD (PORCINE) 5,000 UNIT/ML 1 ML VIAL SUBCUT SCH ×3 (06:17→22:33)
[2018-12-31 06:56] LABS: ANION GAP 5 (5-19); BLOOD UREA NITROGEN 54 mg/dL (7-20); CALCIUM 8.8 mg/dL (8.4-10.2); CARBON DIOXIDE 29 mmol/L (22-30); CHLORIDE 106 mmol/L (98-107); GLUCOSE 77 mg/dL (75-110); POTASSIUM 4.9 mmol/L (3.6-5.0)
[2018-12-31] MEDS: CEFTRIAXONE 1 GM/D5W RTU 1 GM/50 ML RTUPB IV SCH (08:01)
[2018-12-31] MEDS: INSULIN LISPRO 100 UNIT/ML 3 ML VIAL SUBCUT SCH ×4 (08:11→22:26)
[2018-12-31] MEDS: INSULIN GLARGINE,HUM.REC.ANLOG 1,000 UNIT/10 ML VIAL SUBCUT SCH (10:38)
[2018-12-31] MEDS: ESCITALOPRAM OXALATE 10 MG TABLET PO SCH (10:38)
[2018-12-31] MEDS: ASPIRIN 81 MG TABLET, ENT COATED PO SCH (10:39)
[2018-12-31] MEDS: PANTOPRAZOLE SODIUM 40 MG TABLET.DR PO SCH (10:39)
[2018-12-31] MEDS: EZETIMIBE 10 MG TABLET PO SCH (10:39)
[2018-12-31] MEDS: CARVEDILOL 12.5 MG TABLET PO SCH ×2 (10:39→22:32)
[2018-12-31] MEDS: AMLODIPINE BESYLATE 5 MG TABLET PO SCH (10:39)
[2018-12-31] MEDS: DOCUSATE SODIUM 100 MG CAPSULE PO SCH (10:39)
[2018-12-31] MEDS: LISINOPRIL 10 MG TABLET PO SCH (10:40)
--- NOTE | 2018-12-31 11:21 | PDOC PROGRESS REPORT ---
Subjective Progress Note for:: 12/31/18 Subjective:: FINA HERNÁNDEZ is a 63 year old female with a past medical history of morbid obesity, obstructive sleep apnea, home oxygen dependent COPD, insulin-dependent diabetes, CKD 3 and hypertension. She presents after 2 days of left-sided chest pain worsened by minimal exertion. In the emergency department she is found to have a systolic blood pressure of 220/100. She receives nitrates, Lasix and BiPAP. Her chest pain was associated with shortness of breath and diaphoresis. Denying nausea or palpitations. Episodes last approximately 30 minutes reside with rest. She is minimally active at baseline and severely debilitated, transferring from bed or chair to commode with maximal effort. She denies recent changes in medications but admits to noncompliance with diet and BiPAP. 12/28/2018. No acute events overnight. Patient resting comfortably in bed, in no apparent distress, denies any fever, chills, nausea, vomiting, diarrhea, constipation or any urinary symptoms. BP not optimized. Possible discharge home tomorrow. 12/29/2018. No acute events overnight. Patient comfortably resting in bed in no apparent distress, denies any fever, chills, nausea, vomiting, diarrhea, constipation or any urinary symptoms. P.o. tolerant, having normal bowel and bladder movements. BP still not optimized, unfortunately creatinine is trending up, patient has not been evaluated by PT. Once BP is optimized and creatinine stabilized patient will be either going to home or short-term rehab based on PT evaluation and input. 12/30/2018. No acute events overnight. Patient is sitting in bed enjoying her breakfast, reports generalized weakness otherwise denies any fever, chills, nausea, vomiting, diarrhea, constipation or any urinary symptoms. Making quinton quate amount of urine. Renal function is worsening and I have contacted Dr. Ramirez for evaluation. 12/31/2018. No acute events overnight. Patient is sitting in bed enjoying her breakfast, reports generalized weakness otherwise denies any fever, chills, nausea, vomiting, diarrhea, constipation or any urinary symptoms. Making adequate amount of urine. Reason For Visit: HTN URGENCY, ISAAC, CKD Physical Exam Vital Signs: Temp Pulse Resp BP Pulse Ox 98.0 F 85 10 L 151/59 H 97 12/31/18 00:00 12/31/18 02:00 12/31/18 03:53 12/31/18 00:00 12/31/18 00:00 Intake & Output 12/30/18 12/31/18 01/01/19 06:59 06:59 06:59 Intake Total 1370 603 Output Total 275 Balance 1370 328 Weight 127.1 kg 130 kg General appearance: PRESENT: morbidly obese Respiratory exam: PRESENT: clear to auscultation vadim. ABSENT: rales, rhonchi, wheezes Cardiovascular exam: PRESENT: RRR. ABSENT: diastolic murmur, rubs, systolic murmur GI/Abdominal exam: PRESENT: normal bowel sounds, soft. ABSENT: distended, guarding, mass, organolmegaly, rebound, tenderness Neurological exam: PRESENT: alert, awake, oriented to person, oriented to place, oriented to time, oriented to situation, CN II-XII grossly intact. ABSENT: motor sensory deficit Results Laboratory Results: 12/31/18 05:20 12/31/18 05:20 12/30/18 12/30/18 12/31/18 04:00 04:00 05:20 WBC 7.8 RBC 2.58 L Hgb 8.4 L Hct 24.4 L MCV 94 MCH 32.3 MCHC 34.3 RDW 15.5 H Plt Count 272 Seg Neutrophils % 55.1 Retic Count (auto) 2.01 Sodium Potassium Chloride Carbon Dioxide Anion Gap BUN Creatinine Est GFR ( Amer) Glucose Calcium Magnesium Iron 51.5 TIBC 220 L % Saturation 23 Ferritin 273.00 H Vitamin B12 233.0 L Folate 11.40 12/31/18 05:20 WBC RBC Hgb Hct MCV MCH MCHC RDW Plt Count Seg Neutrophils % Retic Count (auto) Sodium 140.0 Potassium 4.9 Chloride 106 Carbon Dioxide 29 Anion Gap 5 BUN 54 H Creatinine 3.88 H Est GFR ( Amer) 14 L Glucose 77 Calcium 8.8 Magnesium 1.8 Iron TIBC % Saturation Ferritin Vitamin B12 Folate 12/26/18 12/27/18 12/27/18 20:00 01:10 06:36 Troponin I 0.014 0.014 < 0.012 NT-Pro-B Natriuret Pep 4320 H 12/27/18 13:16 Troponin I < 0.012 NT-Pro-B Natriuret Pep Impressions: Chest X-Ray 10/27/19 18:51 IMPRESSION: Mild diffuse interstitial pulmonary opacity and small bilateral pleural effusions, likely edema in the setting of cardiomegaly. Assessment and Plan - Diagnosis (1) Acute kidney injury superimposed on chronic kidney disease Is this a current diagnosis for this admission?: Yes Plan: Worsening renal function likely due to overdiuresis. Nonoliguric. Making adequate urine. Most likely due to uncontrolled long-standing hypertension. Avoid nephrotoxic meds. DC Lasix. Monitor volume status and electrolytes replace as needed. Nephrology consulted. Recommendations noted. (2) Hypertensive urgency Is this a current diagnosis for this admission?: Yes Plan: Resolved. Normotensive. Home meds are: Lisinopril 20 mg p.o. daily, Lasix 40 mg p.o. daily, carvedilol 12.5 mg p.o. daily, amlodipine 5 mg p.o. daily. 12/29/2018 DC'd Lasix due to worsening renal function. Continue Amlodipine 5 mg p.o. daily. Lisinopril 40 mg p.o. daily. Utxhadsc62.5 mg p.o. twice daily Continue PRN hydralazine. Adjust meds as needed. Outpatient PCP follow-up. (3) CHF (congestive heart failure) Qualifiers: Heart failure type: other Qualified Code(s): I50.9 - Heart failure, unspecified Is this a current diagnosis for this admission?: Yes Plan: Improving. Becoming euvolemic. Acute combined systolic and diastolic CHF exacerbation. Troponins <0.012. Denies any chest pain. BNP 4320 on admission. BNP 30909 on 09/28/2018. [place] [address]-21078 the last 2 years. 12/23/2018. 2D echo. LVEF 55%. Grade 1/4 or mild diastolic dysfunction. Continue volume restriction, REGAN, beta-blockers, strict in and out, daily weights, cardiac diet. Hold Lasix due to worsening renal function. (4) Chest pain Qualifiers: Chest pain type: unspecified Qualified Code(s): R07.9 - Chest pain, unspecified Is this a current diagnosis for this admission?: Yes Plan: Resolved. Due to hypertensive urgency. Cardiac enzymes <0.012 x 3. Continue aspirin, statins, morphine as needed, nitrates as needed. (5) Anemia Qualifiers: Anemia type: due to chronic kidney disease Chronic kidney disease stage: stage 3 (moderate) Qualified Code(s): N18.3 - Chronic kidney disease, stage 3 (moderate); D63.1 - Anemia in chronic kidney disease Is this a current diagnosis for this admission?: Yes Plan: Most likely due to CKD. Denies any vaginal bleed, hematemesis, hematuria, hemoptysis, hematochezia or melena. 09/01/2018. Iron 55.2, TIBC 219, saturation 25%, ferritin 303. 12/29/2018 received 1 dose of Procrit. Monitor H&H. Supportive transfusions. Outpatient PCP and nephrology follow-up. (6) Diabetes mellitus type 2 in obese Is this a current diagnosis for this admission?: Yes Plan: Controlled. Hemoglobin A1c 7.8%. Home meds are insulin glargine 30 units subcutaneous twice daily. Continue basal, prandial, and sliding scale insulin. Hypoglycemic protocol, Accu-Chek. Adjust dose as needed. Outpatient PCP follow-up. (7) Acute UTI (urinary tract infection) Is this a current diagnosis for this admission?: Yes Plan: Due to E. coli. Day 4/5 IV ceftriaxone. (8) Coronary artery disease Qualifiers: Coronary Disease-Associated Artery/Lesion type: wainwright artery Is this a current diagnosis for this admission?: Yes Plan: Denies any anginal chest pain. Continue antiplatelets, statins, beta-blockers, REGAN. Uptitrate beta-blockers and REGAN as tolerated. (9) Depression Qualifiers: Depression Type: major depressive disorder Is this a current diagnosis for this admission?: Yes Plan: Denies any homicidal or suicidal ideation. Restart home meds. Outpatient PCP follow-up. (10) Morbid obesity with BMI of 45.0-49.9, adult Is this a current diagnosis for this admission?: Yes Plan: TSH WNL. Diet and lifestyle modification recommended. May be a candidate for bariatric intervention.
--- NOTE | 2018-12-31 16:17 | PDOC PROGRESS REPORT ---
Subjective Progress Note for:: 12/31/18 Subjective:: Patient is clinically doing well and is feeling fine. She was sitting at the end of the bed when I saw her and chest feel very comfortable. She had a recorded urine output of 275 mL from yesterday since I ordered strict I/O. She has no other complaints. Reason For Visit: HTN URGENCY, ISAAC, CKD Physical Exam Vital Signs: Temp Pulse Resp BP Pulse Ox 98.0 F 85 10 L 151/59 H 97 12/31/18 00:00 12/31/18 02:00 12/31/18 03:53 12/31/18 00:00 12/31/18 00:00 Intake & Output 12/30/18 12/31/18 01/01/19 06:59 06:59 06:59 Intake Total 1370 603 Output Total 275 Balance 1370 328 Weight 127.1 kg 130 kg Exam: General appearance: PRESENT: no acute distress, cooperative, well-developed, well-nourished Head exam: PRESENT: atraumatic, normocephalic Eye exam: PRESENT: conjunctiva pale, PERRLA. ABSENT: scleral icterus Neck exam: ABSENT: JVD Respiratory exam: PRESENT: Normal breath sounds. ABSENT: crackles, rales, rhonchi, unlabored, wheezes Cardiovascular exam: PRESENT: Regular rate rhythm -+S1, +S2. ABSENT: diastolic murmur, systolic murmur GI/Abdominal exam: PRESENT: normal bowel sounds, soft. ABSENT: guarding, mass, tenderness Extremities exam: Trace bilateral lower extremity edema Neurological exam: PRESENT: alert, awake, oriented to person, place and time. Skin exam: PRESENT: dry, warm, Results Laboratory Results: 12/31/18 05:20 12/31/18 05:20 12/30/18 12/31/18 12/31/18 04:00 05:20 05:20 WBC 7.8 RBC 2.58 L Hgb 8.4 L Hct 24.4 L MCV 94 MCH 32.3 MCHC 34.3 RDW 15.5 H Plt Count 272 Seg Neutrophils % 55.1 Sodium 140.0 Potassium 4.9 Chloride 106 Carbon Dioxide 29 Anion Gap 5 BUN 54 H Creatinine 3.88 H Est GFR ( Amer) 14 L Glucose 77 Calcium 8.8 Magnesium 1.8 Iron 51.5 TIBC 220 L % Saturation 23 Ferritin 273.00 H Vitamin B12 233.0 L Folate 11.40 12/26/18 12/27/18 12/27/18 20:00 01:10 06:36 Troponin I 0.014 0.014 < 0.012 NT-Pro-B Natriuret Pep 4320 H 12/27/18 13:16 Troponin I < 0.012 NT-Pro-B Natriuret Pep Impressions: Chest X-Ray 12/26/18 18:51 IMPRESSION: Mild diffuse interstitial pulmonary opacity and small bilateral pleural effusions, likely edema in the setting of cardiomegaly. Assessment & Plan - Diagnosis (1) Acute kidney injury superimposed on chronic kidney disease Is this a current diagnosis for this admission?: Yes Plan: Nonoliguric. Likely secondary to prerenal azotemia due to diuresis. Continue to hold Lasix for now. However this needs to be resumed in the next few days. The patient may establish a new baseline kidney function and if it stabilized then may resume the Lasix 40 mg daily to take home as an outpatient. No need of any renal replacement therapy at this time. Continue to monitor kidney function. I would like to see the kidney function improving or at least stable prior to discharge. (2) Chronic kidney disease, stage IV (severe) Is this a current diagnosis for this admission?: Yes Plan: Patient's baseline creatinine is around 2-2.5. This is due to diabetic nephropathy with proteinuria with contribution of hypertension and obesity. (3) CHF (congestive heart failure) Qualifiers: Heart failure type: other Qualified Code(s): I50.9 - Heart failure, unspecified Is this a current diagnosis for this admission?: Yes Plan: Improvement currently compensated. (4) Chest pain Qualifiers: Chest pain type: unspecified Qualified Code(s): R07.9 - Chest pain, unspecified Is this a current diagnosis for this admission?: Yes Plan: Resolved. (5) Acute UTI (urinary tract infection) Is this a current diagnosis for this admission?: Yes Plan: Due to E. coli, on IV ceftriaxone. (6) Anemia, chronic disease Is this a current diagnosis for this admission?: Yes Plan: Procrit injection given on 12/29/2018. Iron indicis are adequate. (7) Diabetes mellitus type 2 in obese Is this a current diagnosis for this admission?: Yes (8) HTN (hypertension) Is this a current diagnosis for this admission?: Yes (9) NILO (obstructive sleep apnea) Is this a current diagnosis for this admission?: Yes (10) Morbid obesity with BMI of 45.0-49.9, adult Is this a current diagnosis for this admission?: Yes - Time Time with patient: 15-25 minutes
[2018-12-31] MEDS: GABAPENTIN 300 MG CAPSULE PO SCH (17:58)
[2018-12-31] MEDS ORDERED: INSULIN GLARGINE,HUM.REC.ANLOG 1,000 UNIT/10 ML VIAL SUBCUT SCH (22:00)
[2019-01-01 05:14] LABS: ABSOLUTE BASOPHILS # (AUTO) 0.1 10^3/uL (0.0-0.2); ABSOLUTE EOSINOPHILS # (AUTO) 0.2 10^3/uL (0.0-0.6); ABSOLUTE LYMPHOCYTES (AUTO) 2.5 10^3/uL (0.5-4.7); ABSOLUTE MONOCYTES (AUTO) 0.9 10^3/uL (0.1-1.4); ABSOLUTE NEUT (AUTO) 3.2 10^3/uL (1.7-8.2); BASOPHILS % (AUTO) 1.1 % (0-2); EOSINOPHILS % (AUTO) 3.3 % (0-6); HEMATOCRIT 23.1 % (36.0-47.0); LYMPHOCYTES % (AUTO) 35.8 % (13-45); MEAN CORPUSCULAR HEMOGLOBIN 32.6 pg (27.0-33.4); MEAN CORPUSCULAR HGB CONC 34.2 g/dL (32.0-36.0); MEAN CORPUSCULAR VOLUME 95 fl (80-97); MONOCYTES % (AUTO) 12.7 % (3-13); PLATELET COUNT 261 10^3/uL (150-450); RED BLOOD COUNT 2.43 10^6/uL (3.72-5.28); RED CELL DISTRIBUTION WIDTH 15.6 % (11.5-14.0); SEGMENTED NEUTROPHILS % (AUTO) 47.1 % (42-78); TOTAL CELLS COUNTED % (AUTO) 100 %; WHITE BLOOD COUNT 6.9 10^3/uL (4.0-10.5)
[2019-01-01 05:18] LABS: HEMOGLOBIN 7.9 g/dL (12.0-15.5)
[2019-01-01 05:31] LABS: ANION GAP 7 (5-19); BLOOD UREA NITROGEN 58 mg/dL (7-20); CALCIUM 8.5 mg/dL (8.4-10.2); CARBON DIOXIDE 27 mmol/L (22-30); CHLORIDE 105 mmol/L (98-107); GLUCOSE 133 mg/dL (75-110); POTASSIUM 4.8 mmol/L (3.6-5.0)
[2019-01-01] MEDS: HEPARIN SOD (PORCINE) 5,000 UNIT/ML 1 ML VIAL SUBCUT SCH ×3 (06:05→21:15)
[2019-01-01] MEDS: TRAMADOL HCL 50 MG TABLET PO SCH ×3 (06:06→21:11)
[2019-01-01] MEDS: ESCITALOPRAM OXALATE 10 MG TABLET PO SCH (09:48)
[2019-01-01] MEDS: EZETIMIBE 10 MG TABLET PO SCH (09:48)
[2019-01-01] MEDS: PANTOPRAZOLE SODIUM 40 MG TABLET.DR PO SCH (09:48)
[2019-01-01] MEDS: DOCUSATE SODIUM 100 MG CAPSULE PO SCH (09:48)
[2019-01-01] MEDS: CEFTRIAXONE 1 GM/D5W RTU 1 GM/50 ML RTUPB IV SCH (09:48)
[2019-01-01] MEDS: LISINOPRIL 10 MG TABLET PO SCH (09:48)
[2019-01-01] MEDS: CARVEDILOL 12.5 MG TABLET PO SCH ×2 (09:48→21:16)
[2019-01-01] MEDS: AMLODIPINE BESYLATE 5 MG TABLET PO SCH (09:48)
[2019-01-01] MEDS: ASPIRIN 81 MG TABLET, ENT COATED PO SCH (09:48)
--- NOTE | 2019-01-01 11:51 | PDOC PROGRESS REPORT ---
Subjective Progress Note for:: 01/01/19 Subjective:: FINA HERNÁNDEZ is a 63 year old female with a past medical history of morbid obesity, obstructive sleep apnea, home oxygen dependent COPD, insulin-dependent diabetes, CKD 3 and hypertension. She presents after 2 days of left-sided chest pain worsened by minimal exertion. In the emergency department she is found to have a systolic blood pressure of 220/100. She receives nitrates, Lasix and BiPAP. Her chest pain was associated with shortness of breath and diaphoresis. Denying nausea or palpitations. Episodes last approximately 30 minutes reside with rest. She is minimally active at baseline and severely debilitated, transferring from bed or chair to commode with maximal effort. She denies recent changes in medications but admits to noncompliance with diet and BiPAP. 12/28/2018. No acute events overnight. Patient resting comfortably in bed, in no apparent distress, denies any fever, chills, nausea, vomiting, diarrhea, constipation or any urinary symptoms. BP not optimized. Possible discharge home tomorrow. 12/29/2018. No acute events overnight. Patient comfortably resting in bed in no apparent distress, denies any fever, chills, nausea, vomiting, diarrhea, constipation or any urinary symptoms. P.o. tolerant, having normal bowel and bladder movements. BP still not optimized, unfortunately creatinine is trending up, patient has not been evaluated by PT. Once BP is optimized and creatinine stabilized patient will be either going to home or short-term rehab based on PT evaluation and input. 12/30/2018. No acute events overnight. Patient is sitting in bed enjoying her breakfast, reports generalized weakness otherwise denies any fever, chills, nausea, vomiting, diarrhea, constipation or any urinary symptoms. Making quinton quate amount of urine. Renal function is worsening and I have contacted Dr. Ramirez for evaluation. 12/31/2018. No acute events overnight. Patient is sitting in bed enjoying her breakfast, reports generalized weakness otherwise denies any fever, chills, nausea, vomiting, diarrhea, constipation or any urinary symptoms. Making adequate amount of urine. 12/2018. No acute events overnight. Patient comfortably resting in bed in no apparent distress, having her breakfast, denies any fever, chills, nausea, vomiting, diarrhea, constipation or any urinary symptoms. Making adequate urine output. Reason For Visit: HTN URGENCY, ISAAC, CKD Physical Exam Vital Signs: Temp Pulse Resp BP Pulse Ox 97.7 F 65 20 138/59 H 92 01/01/19 08:48 01/01/19 08:48 01/01/19 08:48 01/01/19 08:48 01/01/19 09:10 Intake & Output 12/31/18 01/01/19 01/02/19 06:59 06:59 05:59 Intake Total 603 1474 Output Total 275 600 Balance 328 874 Weight 130 kg 128.9 kg General appearance: PRESENT: morbidly obese Head exam: PRESENT: atraumatic, normocephalic Respiratory exam: PRESENT: clear to auscultation vadim. ABSENT: rales, rhonchi, wheezes Cardiovascular exam: PRESENT: RRR. ABSENT: diastolic murmur, rubs, systolic murmur Pulses: PRESENT: normal dorsalis pedis pul GI/Abdominal exam: PRESENT: normal bowel sounds, soft. ABSENT: distended, guarding, mass, organolmegaly, rebound, tenderness Neurological exam: PRESENT: alert, awake, oriented to person, oriented to place, oriented to time, oriented to situation, CN II-XII grossly intact. ABSENT: motor sensory deficit Results Laboratory Results: 01/01/19 04:28 01/01/19 04:28 01/01/19 01/01/19 04:28 04:28 WBC 6.9 RBC 2.43 L Hgb 7.9 L Hct 23.1 L MCV 95 MCH 32.6 MCHC 34.2 RDW 15.6 H Plt Count 261 Seg Neutrophils % 47.1 Sodium 138.9 Potassium 4.8 Chloride 105 Carbon Dioxide 27 Anion Gap 7 BUN 58 H Creatinine 3.84 H Est GFR ( Amer) 14 L Glucose 133 H Calcium 8.5 Magnesium 1.9 12/26/18 12/27/18 12/27/18 20:00 01:10 06:36 Troponin I 0.014 0.014 < 0.012 NT-Pro-B Natriuret Pep 4320 H 12/27/18 13:16 Troponin I < 0.012 NT-Pro-B Natriuret Pep Impressions: Chest X-Ray 12/26/18 18:51 IMPRESSION: Mild diffuse interstitial pulmonary opacity and small bilateral pleural effusions, likely edema in the setting of cardiomegaly. Assessment and Plan - Diagnosis (1) Acute kidney injury superimposed on chronic kidney disease Is this a current diagnosis for this admission?: Yes Plan: Worsening renal function likely due to overdiuresis. Nonoliguric. Making adequate urine. Most likely due to uncontrolled long-standing hypertension. Avoid nephrotoxic meds. DC Lasix. Monitor volume status and electrolytes replace as needed. Nephrology consulted. Recommendations noted. (2) Hypertensive urgency Is this a current diagnosis for this admission?: Yes Plan: Resolved. Normotensive. Home meds are: Lisinopril 20 mg p.o. daily, Lasix 40 mg p.o. daily, carvedilol 12.5 mg p.o. daily, amlodipine 5 mg p.o. daily. 12/29/2018 DC'd Lasix due to worsening renal function. Continue Amlodipine 5 mg p.o. daily. Lisinopril 40 mg p.o. daily. [id number] mg p.o. twice daily Continue PRN hydralazine. Adjust meds as needed. Outpatient PCP follow-up. (3) CHF (congestive heart failure) Qualifiers: Heart failure type: combined systolic and diastolic Is this a current diagnosis for this admission?: Yes Plan: Improving. Becoming euvolemic. Acute combined systolic and diastolic CHF exacerbation. Troponins <0.012. Denies any chest pain. BNP 4320 on admission. BNP 80620 on 09/28/2018. [place] [address]170 the last 2 years. 12/23/2018. 2D echo. LVEF 55%. Grade 1/4 or mild diastolic dysfunction. Continue volume restriction, REGAN, beta-blockers, strict in and out, daily weights, cardiac diet. Hold Lasix due to worsening renal function. (4) Chest pain Qualifiers: Chest pain type: unspecified Qualified Code(s): R07.9 - Chest pain, unspecified Is this a current diagnosis for this admission?: Yes Plan: Resolved. Due to hypertensive urgency. Cardiac enzymes <0.012 x 3. Continue aspirin, statins, morphine as needed, nitrates as needed. (5) Anemia Qualifiers: Anemia type: due to chronic kidney disease Chronic kidney disease stage: stage 3 (moderate) Qualified Code(s): N18.3 - Chronic kidney disease, stage 3 (moderate); D63.1 - Anemia in chronic kidney disease Is this a current diagnosis for this admission?: Yes Plan: Most likely due to CKD. Denies any vaginal bleed, hematemesis, hematuria, hemoptysis, hematochezia or melena. 09/01/2018. Iron 55.2, TIBC 219, saturation 25%, ferritin 303. 12/29/2018 received 1 dose of Procrit. Monitor H&H. Supportive transfusions. Outpatient PCP and nephrology follow-up. (6) Diabetes mellitus type 2 in obese Is this a current diagnosis for this admission?: Yes Plan: Controlled. Hemoglobin A1c 7.8%. Home meds are insulin glargine 30 units subcutaneous twice daily. Continue basal, prandial, and sliding scale insulin. Hypoglycemic protocol, Accu-Chek. Adjust dose as needed. Outpatient PCP follow-up. (7) Acute UTI (urinary tract infection) Is this a current diagnosis for this admission?: Yes Plan: Due to E. coli. Day 5/ IV ceftriaxone. DC antibiotics (8) Coronary artery disease Qualifiers: Coronary Disease-Associated Artery/Lesion type: [place] artery Is this a current diagnosis for this admission?: Yes Plan: Denies any anginal chest pain. Continue antiplatelets, statins, beta-blockers, REGAN. Uptitrate beta-blockers and REGAN as tolerated. (9) Depression Qualifiers: Depression Type: major depressive disorder Is this a current diagnosis for this admission?: Yes Plan: Denies any homicidal or suicidal ideation. Restart home meds. Outpatient PCP follow-up. (10) Morbid obesity with BMI of 45.0-49.9, adult Is this a current diagnosis for this admission?: Yes Plan: TSH WNL. Diet and lifestyle modification recommended. May be a candidate for bariatric intervention.
[2019-01-01] MEDS: INSULIN LISPRO 100 UNIT/ML 3 ML VIAL SUBCUT SCH ×3 (14:17→21:17)
[2019-01-01] MEDS: GABAPENTIN 300 MG CAPSULE PO SCH (17:17)
[2019-01-01] MEDS ORDERED: RINGERS SOLUTION,LACTATED 1,000 ML IV ONE (23:59)
[2019-01-02 05:37] LABS: ABSOLUTE BASOPHILS # (AUTO) 0.1 10^3/uL (0.0-0.2); ABSOLUTE EOSINOPHILS # (AUTO) 0.1 10^3/uL (0.0-0.6); ABSOLUTE LYMPHOCYTES (AUTO) 1.2 10^3/uL (0.5-4.7); ABSOLUTE MONOCYTES (AUTO) 0.9 10^3/uL (0.1-1.4); ABSOLUTE NEUT (AUTO) 6.6 10^3/uL (1.7-8.2); BASOPHILS % (AUTO) 0.8 % (0-2); HEMATOCRIT 24.6 % (36.0-47.0); HEMOGLOBIN 8.4 g/dL (12.0-15.5); LYMPHOCYTES % (AUTO) 13.3 % (13-45); MEAN CORPUSCULAR HEMOGLOBIN 32.3 pg (27.0-33.4); MEAN CORPUSCULAR HGB CONC 34.1 g/dL (32.0-36.0); MEAN CORPUSCULAR VOLUME 95 fl (80-97); MONOCYTES % (AUTO) 9.9 % (3-13); PLATELET COUNT 290 10^3/uL (150-450); RED CELL DISTRIBUTION WIDTH 15.6 % (11.5-14.0); TOTAL CELLS COUNTED % (AUTO) 100 %; WHITE BLOOD COUNT 8.9 10^3/uL (4.0-10.5)
[2019-01-02 05:57] LABS: ALBUMIN 3.2 g/dL (3.5-5.0); ALKALINE PHOSPHATASE 80 U/L (38-126); ANION GAP 8 (5-19); ASPARTATE AMINO TRANSFERASE 17 U/L (14-36); BILIRUBIN,DIRECT 0.1 mg/dL (0.0-0.4); BILIRUBIN,TOTAL 0.3 mg/dL (0.2-1.3); BLOOD UREA NITROGEN 58 mg/dL (7-20); CALCIUM 8.8 mg/dL (8.4-10.2); CARBON DIOXIDE 26 mmol/L (22-30); CHLORIDE 106 mmol/L (98-107); GLUCOSE 136 mg/dL (75-110); POTASSIUM 4.9 mmol/L (3.6-5.0); TOTAL PROTEIN 5.9 g/dL (6.3-8.2)
[2019-01-02] MEDS: TRAMADOL HCL 50 MG TABLET PO SCH ×3 (06:04→22:33)
[2019-01-02] MEDS: HEPARIN SOD (PORCINE) 5,000 UNIT/ML 1 ML VIAL SUBCUT SCH ×3 (06:04→22:32)
[2019-01-02] MEDS: INSULIN LISPRO 100 UNIT/ML 3 ML VIAL SUBCUT SCH ×4 (09:06→22:32)
[2019-01-02] MEDS: LISINOPRIL 10 MG TABLET PO SCH (09:07)
[2019-01-02] MEDS: DOCUSATE SODIUM 100 MG CAPSULE PO SCH (09:07)
[2019-01-02] MEDS: PANTOPRAZOLE SODIUM 40 MG TABLET.DR PO SCH (09:07)
[2019-01-02] MEDS: CARVEDILOL 12.5 MG TABLET PO SCH ×2 (09:07→22:32)
[2019-01-02] MEDS: ASPIRIN 81 MG TABLET, ENT COATED PO SCH (09:07)
[2019-01-02] MEDS: AMLODIPINE BESYLATE 5 MG TABLET PO SCH (09:07)
[2019-01-02] MEDS: EZETIMIBE 10 MG TABLET PO SCH (09:07)
[2019-01-02] MEDS: ESCITALOPRAM OXALATE 10 MG TABLET PO SCH (09:08)
[2019-01-02] MEDS: INSULIN GLARGINE,HUM.REC.ANLOG 1,000 UNIT/10 ML VIAL SUBCUT SCH (09:09)
[2019-01-02 16:50] LABS: ANION GAP 6 (5-19); BLOOD UREA NITROGEN 57 mg/dL (7-20); CALCIUM 8.6 mg/dL (8.4-10.2); CARBON DIOXIDE 26 mmol/L (22-30); CHLORIDE 111 mmol/L (98-107); GLUCOSE 120 mg/dL (75-110)
--- NOTE | 2019-01-02 17:36 | PDOC PROGRESS REPORT ---
Subjective Progress Note for:: 01/02/19 Subjective:: FINA HERNÁNDEZ is a 63 year old female with a past medical history of morbid obesity, obstructive sleep apnea, home oxygen dependent COPD, insulin-dependent diabetes, CKD 3 and hypertension. She presents after 2 days of left-sided chest pain worsened by minimal exertion. In the emergency department she is found to have a systolic blood pressure of 220/100. She receives nitrates, Lasix and BiPAP. Her chest pain was associated with shortness of breath and diaphoresis. Denying nausea or palpitations. Episodes last approximately 30 minutes reside with rest. She is minimally active at baseline and severely debilitated, transferring from bed or chair to commode with maximal effort. She denies recent changes in medications but admits to noncompliance with diet and BiPAP. 12/28/2018. No acute events overnight. Patient resting comfortably in bed, in no apparent distress, denies any fever, chills, nausea, vomiting, diarrhea, constipation or any urinary symptoms. BP not optimized. Possible discharge home tomorrow. 12/29/2018. No acute events overnight. Patient comfortably resting in bed in no apparent distress, denies any fever, chills, nausea, vomiting, diarrhea, constipation or any urinary symptoms. P.o. tolerant, having normal bowel and bladder movements. BP still not optimized, unfortunately creatinine is trending up, patient has not been evaluated by PT. Once BP is optimized and creatinine stabilized patient will be either going to home or short-term rehab based on PT evaluation and input. 12/30/2018. No acute events overnight. Patient is sitting in bed enjoying her breakfast, reports generalized weakness otherwise denies any fever, chills, nausea, vomiting, diarrhea, constipation or any urinary symptoms. Making quinton quate amount of urine. Renal function is worsening and I have contacted Dr. Ramirez for evaluation. 12/31/2018. No acute events overnight. Patient is sitting in bed enjoying her breakfast, reports generalized weakness otherwise denies any fever, chills, nausea, vomiting, diarrhea, constipation or any urinary symptoms. Making adequate amount of urine. 01/01/2019. No acute events overnight. Patient comfortably resting in bed in no apparent distress, having her breakfast, denies any fever, chills, nausea, vomiting, diarrhea, constipation or any urinary symptoms. Making adequate urine output. 01/02/2019. No acute events overnight. Patient comfortably resting in bed in no apparent distress, having her breakfast, denies any fever, chills, nausea, vomiting, diarrhea, constipation or any urinary symptoms. Making adequate urine output. Reason For Visit: HTN URGENCY, ISAAC, CKD Physical Exam Vital Signs: Temp Pulse Resp BP Pulse Ox 97.9 F 71 16 132/63 H 98 01/02/19 15:57 01/02/19 15:57 01/02/19 15:57 01/02/19 15:57 01/02/19 15:57 Intake & Output 01/01/19 01/02/19 01/03/19 07:59 06:59 06:59 Intake Total Output Total Balance Weight General appearance: PRESENT: morbidly obese Head exam: PRESENT: atraumatic, normocephalic Respiratory exam: PRESENT: clear to auscultation vadim. ABSENT: rales, rhonchi, wheezes Cardiovascular exam: PRESENT: RRR. ABSENT: diastolic murmur, rubs, systolic murmur GI/Abdominal exam: PRESENT: normal bowel sounds, soft. ABSENT: distended, guarding, mass, organolmegaly, rebound, tenderness Extremities exam: PRESENT: full ROM. ABSENT: calf tenderness, clubbing, pedal edema Neurological exam: PRESENT: alert, awake, oriented to person, oriented to place, oriented to time, oriented to situation, CN II-XII grossly intact. ABSENT: motor sensory deficit Results Laboratory Results: 01/02/19 04:30 01/02/19 16:00 01/02/19 01/02/19 01/02/19 04:30 04:30 16:00 WBC 8.9 RBC 2.60 L Hgb 8.4 L Hct 24.6 L MCV 95 MCH 32.3 MCHC 34.1 RDW 15.6 H Plt Count 290 Seg Neutrophils % 75.0 Sodium 139.9 142.8 Potassium 4.9 5.0 Chloride 106 111 H Carbon Dioxide 26 26 Anion Gap 8 6 BUN 58 H 57 H Creatinine 3.61 H 3.61 H Est GFR ( Amer) 15 L 15 L Glucose 136 H 120 H Calcium 8.8 8.6 Magnesium 1.8 Total Bilirubin 0.3 AST 17 Alkaline Phosphatase 80 Total Protein 5.9 L Albumin 3.2 L 10/27/19 10/28/19 10/28/19 20:00 01:10 06:36 Troponin I 0.014 0.014 < 0.012 NT-Pro-B Natriuret Pep 4320 H 12/27/18 13:16 Troponin I < 0.012 NT-Pro-B Natriuret Pep Impressions: Chest X-Ray 12/26/18 18:51 IMPRESSION: Mild diffuse interstitial pulmonary opacity and small bilateral pleural effusions, likely edema in the setting of cardiomegaly. Assessment and Plan - Diagnosis (1) Acute kidney injury superimposed on chronic kidney disease Is this a current diagnosis for this admission?: Yes Plan: Mild improvement. Was likely due to overdiuresis. Nonoliguric. Making adequate urine. Most likely due to uncontrolled long-standing hypertension. Avoid nephrotoxic meds. DC Lasix. Monitor volume status and electrolytes replace as needed. Nephrology consulted. Recommendations noted. (2) Hypertensive urgency Is this a current diagnosis for this admission?: Yes Plan: Resolved. Normotensive. Home meds are: Lisinopril 20 mg p.o. daily, Lasix 40 mg p.o. daily, carvedilol 12.5 mg p.o. daily, amlodipine 5 mg p.o. daily. 12/29/2018 DC'd Lasix due to worsening renal function. Continue Amlodipine 5 mg p.o. daily. Lisinopril 40 mg p.o. daily. Jbnbmmys01.5 mg p.o. twice daily Continue PRN hydralazine. Adjust meds as needed. Outpatient PCP follow-up. (3) CHF (congestive heart failure) Qualifiers: Heart failure type: combined systolic and diastolic Is this a current diagnosis for this admission?: Yes Plan: Improving. Becoming euvolemic. Acute combined systolic and diastolic CHF exacerbation. Troponins <0.012. Denies any chest pain. BNP 4320 on admission. BNP 70071 on 09/28/2018. [place] [address]10 the last 2 years. 12/23/2018. 2D echo. LVEF 55%. Grade 1/4 or mild diastolic dysfunction. Continue volume restriction, REGAN, beta-blockers, strict in and out, daily weights, cardiac diet. Hold Lasix due to worsening renal function. (4) Chest pain Qualifiers: Chest pain type: unspecified Qualified Code(s): R07.9 - Chest pain, unspecified Is this a current diagnosis for this admission?: Yes Plan: Resolved. Due to hypertensive urgency. Cardiac enzymes <0.012 x 3. Continue aspirin, statins, morphine as needed, nitrates as needed. (5) Anemia Qualifiers: Anemia type: due to chronic kidney disease Chronic kidney disease stage: stage 3 (moderate) Qualified Code(s): N18.3 - Chronic kidney disease, stage 3 (moderate); D63.1 - Anemia in chronic kidney disease Is this a current diagnosis for this admission?: Yes Plan: Most likely due to CKD. Denies any vaginal bleed, hematemesis, hematuria, hemoptysis, hematochezia or melena. 09/01/2018. Iron 55.2, TIBC 219, saturation 25%, ferritin 303. 12/29/2018 received 1 dose of Procrit. Monitor H&H. Supportive transfusions. Outpatient PCP and nephrology follow-up. (6) Diabetes mellitus type 2 in obese Is this a current diagnosis for this admission?: Yes Plan: Controlled. Hemoglobin A1c 7.8%. Home meds are insulin glargine 30 units subcutaneous twice daily. Continue basal, prandial, and sliding scale insulin. Hypoglycemic protocol, Accu-Chek. Adjust dose as needed. Outpatient PCP follow-up. (7) Acute UTI (urinary tract infection) Is this a current diagnosis for this admission?: Yes Plan: Due to E. coli. Day 5/5 IV ceftriaxone. DC antibiotics (8) Coronary artery disease Qualifiers: Coronary Disease-Associated Artery/Lesion type: [place] artery Is this a current diagnosis for this admission?: Yes Plan: Denies any anginal chest pain. Continue antiplatelets, statins, beta-blockers, REGAN. Uptitrate beta-blockers and REGAN as tolerated. (9) Depression Qualifiers: Depression Type: major depressive disorder Is this a current diagnosis for this admission?: Yes Plan: Denies any homicidal or suicidal ideation. Restart home meds. Outpatient PCP follow-up. (10) Morbid obesity with BMI of 45.0-49.9, adult Is this a current diagnosis for this admission?: Yes Plan: TSH WNL. Diet and lifestyle modification recommended. May be a candidate for bariatric intervention.
[2019-01-02] MEDS: GABAPENTIN 300 MG CAPSULE PO SCH (18:10)
[2019-01-03 05:29] LABS: ABSOLUTE BASOPHILS # (AUTO) 0.1 10^3/uL (0.0-0.2); ABSOLUTE EOSINOPHILS # (AUTO) 0.1 10^3/uL (0.0-0.6); ABSOLUTE LYMPHOCYTES (AUTO) 1.8 10^3/uL (0.5-4.7); ABSOLUTE MONOCYTES (AUTO) 0.9 10^3/uL (0.1-1.4); BASOPHILS % (AUTO) 0.7 % (0-2); EOSINOPHILS % (AUTO) 1.5 % (0-6); LYMPHOCYTES % (AUTO) 22.7 % (13-45); MEAN CORPUSCULAR HEMOGLOBIN 32.2 pg (27.0-33.4); MEAN CORPUSCULAR HGB CONC 33.8 g/dL (32.0-36.0); MEAN CORPUSCULAR VOLUME 95 fl (80-97); MONOCYTES % (AUTO) 10.9 % (3-13); PLATELET COUNT 270 10^3/uL (150-450); RED BLOOD COUNT 2.31 10^6/uL (3.72-5.28); RED CELL DISTRIBUTION WIDTH 15.5 % (11.5-14.0); SEGMENTED NEUTROPHILS % (AUTO) 64.2 % (42-78); TOTAL CELLS COUNTED % (AUTO) 100 %; WHITE BLOOD COUNT 7.8 10^3/uL (4.0-10.5)
[2019-01-03 05:39] LABS: HEMOGLOBIN 7.4 g/dL (12.0-15.5)
[2019-01-03] MEDS: TRAMADOL HCL 50 MG TABLET PO SCH (05:44)
[2019-01-03] MEDS: HEPARIN SOD (PORCINE) 5,000 UNIT/ML 1 ML VIAL SUBCUT SCH (05:47)
[2019-01-03 05:56] LABS: ANION GAP 7 (5-19); BLOOD UREA NITROGEN 58 mg/dL (7-20); CALCIUM 8.5 mg/dL (8.4-10.2); CARBON DIOXIDE 26 mmol/L (22-30); CHLORIDE 110 mmol/L (98-107); GLUCOSE 91 mg/dL (75-110); POTASSIUM 4.5 mmol/L (3.6-5.0)
[2019-01-03] MEDS: INSULIN LISPRO 100 UNIT/ML 3 ML VIAL SUBCUT SCH ×2 (09:07→12:23)
[2019-01-03] MEDS: AMLODIPINE BESYLATE 5 MG TABLET PO SCH (09:53)
[2019-01-03] MEDS: ESCITALOPRAM OXALATE 10 MG TABLET PO SCH (09:53)
[2019-01-03] MEDS: ASPIRIN 81 MG TABLET, ENT COATED PO SCH (09:53)
[2019-01-03] MEDS: DOCUSATE SODIUM 100 MG CAPSULE PO SCH (09:53)
[2019-01-03] MEDS: PANTOPRAZOLE SODIUM 40 MG TABLET.DR PO SCH (09:54)
[2019-01-03] MEDS: CARVEDILOL 12.5 MG TABLET PO SCH (09:54)
[2019-01-03] MEDS: LISINOPRIL 10 MG TABLET PO SCH (09:54)
[2019-01-03] MEDS: EZETIMIBE 10 MG TABLET PO SCH (09:54)
[2019-01-03] MEDS ORDERED: INSULIN GLARGINE,HUM.REC.ANLOG 1,000 UNIT/10 ML VIAL SUBCUT SCH (10:00)
[2019-01-03 11:45] VITALS: BP 159/68
[2019-01-03] MEDS: INSULIN GLARGINE,HUM.REC.ANLOG 1,000 UNIT/10 ML VIAL SUBCUT SCH (12:25)
--- NOTE | 2019-01-04 19:10 | PDOC DISCHARGE SUMMARY ---
Impression - Admit/DC Date/PCP Admission Date/Primary Care Provider: 12/30/18 13:52 NATACHA CORMIER MD Discharge Date: 01/03/19 - Discharge Diagnosis (1) Acute kidney injury superimposed on chronic kidney disease Is this a current diagnosis for this admission?: Yes (2) Hypertensive urgency Is this a current diagnosis for this admission?: Yes (3) CHF (congestive heart failure) Is this a current diagnosis for this admission?: Yes (4) Chest pain Is this a current diagnosis for this admission?: Yes (5) Anemia Is this a current diagnosis for this admission?: Yes (6) Diabetes mellitus type 2 in obese Is this a current diagnosis for this admission?: Yes (7) Acute UTI (urinary tract infection) Is this a current diagnosis for this admission?: Yes (8) Coronary artery disease Is this a current diagnosis for this admission?: Yes (9) Depression Is this a current diagnosis for this admission?: Yes (10) Morbid obesity with BMI of 45.0-49.9, adult Is this a current diagnosis for this admission?: Yes - Additional Information Resuscitation Status: Full Code Discharge Diet: Cardiac, Diabetic Discharge Activity: Activity As Tolerated, Balance Activity w/Rest, Weigh Daily Referrals: NATACHA CORMIER MD [Primary Care Provider] - 01/04/19 3:15 pm ARTI OSBORN MD [ACTIVE STAFF] - 01/14/19 11:00 am Prescriptions: Insulin Glargine,Hum.rec.anlog [Lantus Insulin 100 Unit/1 ml 10 ml] 15 units SQ QAM 30 Days #1 unit Lisinopril [Zestril] 40 mg PO DAILY 30 Days #30 tablet Home Medications: Albuterol Sulfate [Proair HFA Inhalation Aerosol 8.5 gm MDI] 2 puff IH Q4HP PRN 12/27/18 Amlodipine Besylate [Norvasc 5 mg Tablet] 5 mg PO DAILY 12/27/18 Aspirin [Adult Aspirin Regimen] 81 mg PO DAILY 12/27/18 Carvedilol [Coreg 12.5 mg Tablet] 12.5 mg PO Q12 12/27/18 Escitalopram Oxalate [Lexapro] 20 mg PO DAILY 12/27/18 Ezetimibe [Zetia 10 mg Tablet] 10 mg PO DAILY 12/27/18 Gabapentin [Neurontin 300 mg Capsule] 600 mg PO QPM 12/27/18 Gabapentin [Neurontin 300 mg Capsule] 900 mg PO QAM 12/27/18 Mirabegron [Myrbetriq] 50 mg PO DAILY 12/27/18 Pantoprazole Sodium [Protonix [address] Tablet] 40 mg PO DAILY 12/27/18 Tramadol HCl [Ultram 50 mg Tablet] 50 mg PO Q8 12/27/18 Insulin Glargine,Hum.rec.anlog [Lantus Insulin 100 Unit/1 ml 10 ml] 15 units SQ QAM 30 Days #1 unit 01/03/19 Lisinopril [Zestril] 40 mg PO DAILY 30 Days #30 tablet 01/03/19 History of Present Illiness History of Present Illness: FINA HERNÁNDEZ is a 63 year old female with a past medical history of morbid obesity, obstructive sleep apnea, home oxygen dependent COPD, insulin-dependent diabetes, CKD 3 and hypertension. She presents after 2 days of left-sided chest pain worsened by minimal exertion. In the emergency department she is found to have a systolic blood pressure of 220/100. She receives nitrates, Lasix and BiPAP. Her chest pain was associated with shortness of breath and diaphoresis. Denying nausea or palpitations. Episodes last approximately 30 minutes reside with rest. She is minimally active at baseline and severely debilitated, transferring from bed or chair to commode with maximal effort. She denies recent changes in medications but admits to noncompliance with diet and BiPAP. Hospital Course Hospital Course: (1) Acute kidney injury superimposed on chronic kidney disease Mild improvement. Was likely due to overdiuresis. Nonoliguric. Making adequate urine. Most likely due to uncontrolled long-standing hypertension. Avoid nephrotoxic meds. DC Lasix. Monitor volume status and electrolytes replace as needed. Nephrology consulted. Recommendations noted. (2) Hypertensive urgency Resolved. Normotensive. Home meds are: Lisinopril 20 mg p.o. daily, Lasix 40 mg p.o. daily, carvedilol 12.5 mg p.o. daily, amlodipine 5 mg p.o. daily. 12/29/2018 DC'd Lasix due to worsening renal function. Continue Amlodipine 5 mg p.o. daily. Lisinopril 40 mg p.o. daily. Tbjbfdxr51.5 mg p.o. twice daily Continue PRN hydralazine. Adjust meds as needed. Outpatient PCP follow-up. (3) CHF (congestive heart failure) Improving. Becoming euvolemic. Acute combined systolic and diastolic CHF exacerbation. Troponins <0.012. Denies any chest pain. BNP 4320 on admission. BNP 26044 on 09/28/2018. [place] 78[address]-33560 the last 2 years. 12/23/2018. 2D echo. LVEF 55%. Grade 1/4 or mild diastolic dysfunction. Continue volume restriction, REGAN, beta-blockers, strict in and out, daily weights, cardiac diet. Hold Lasix due to worsening renal function. (4) Chest pain Resolved. Due to hypertensive urgency. Cardiac enzymes <0.012 x 3. Continue aspirin, statins, morphine as needed, nitrates as needed. (5) Anemia Most likely due to CKD. Denies any vaginal bleed, hematemesis, hematuria, hemoptysis, hematochezia or melena. 09/01/2018. Iron 55.2, TIBC 219, saturation 25%, ferritin 303. 12/29/2018 received 1 dose of Procrit. Monitor H&H. Supportive transfusions. Outpatient PCP and nephrology follow-up. (6) Diabetes mellitus type 2 in obese Controlled. Hemoglobin A1c 7.8%. Home meds are insulin glargine 30 units subcutaneous twice daily. Continue basal, prandial, and sliding scale insulin. Hypoglycemic protocol, Accu-Chek. Adjust dose as needed. Outpatient PCP follow-up. (7) Acute UTI (urinary tract infection) Due to E. coli. Day 5/5 IV ceftriaxone. DC antibiotics (8) Coronary artery disease Denies any anginal chest pain. Continue antiplatelets, statins, beta-blockers, REGAN. Uptitrate beta-blockers and REGAN as tolerated. (9) Depression Denies any homicidal or suicidal ideation. Restart home meds. Outpatient PCP follow-up. (10) Morbid obesity with BMI of 45.0-49.9, adult TSH WNL. Diet and lifestyle modification recommended. May be a candidate for bariatric intervention. Physical Exam Vital Signs: Temp Pulse Resp BP Pulse Ox 98.0 F 72 17 159/68 H 92 01/03/19 11:45 01/03/19 11:45 01/03/19 11:45 01/03/19 11:45 01/03/19 11:45 Intake & Output 01/03/19 01/04/19 01/05/19 06:59 06:59 06:59 Intake Total 360 Output Total 600 Balance -240 Weight 129.7 kg 129.7 kg General appearance: PRESENT: morbidly obese Respiratory exam: PRESENT: clear to auscultation vadim. ABSENT: rales, rhonchi, wheezes Cardiovascular exam: PRESENT: RRR. ABSENT: diastolic murmur, rubs, systolic murmur GI/Abdominal exam: PRESENT: normal bowel sounds, soft. ABSENT: distended, gu arding, mass, organolmegaly, rebound, tenderness Neurological exam: PRESENT: alert, awake, oriented to person, oriented to place, oriented to time, oriented to situation, CN II-XII grossly intact. ABSENT: motor sensory deficit Results Laboratory Results: WBC 7.8 10^3/uL (4.0-10.5) 01/03/19 04:26 RBC 2.31 10^6/uL (3.72-5.28) L 01/03/19 04:26 Hgb 7.4 g/dL (12.0-15.5) L 01/03/19 04:26 Hct 22.0 % (36.0-47.0) L 01/03/19 04:26 MCV 95 fl (80-97) 01/03/19 04:26 MCH 32.2 pg (27.0-33.4) 01/03/19 04:26 MCHC 33.8 g/dL (32.0-36.0) 01/03/19 04:26 RDW 15.5 % (11.5-14.0) H 01/03/19 04:26 Plt Count 270 10^3/uL (150-450) 01/03/19 04:26 Lymph % (Auto) 22.7 % (13-45) 01/03/19 04:26 [place] % (Auto) 10.9 % (3-13) 01/03/19 04:26 Eos % (Auto) 1.5 % (0-6) 01/03/19 04:26 Baso % (Auto) 0.7 % (0-2) 01/03/19 04:26 Reticulocyte # 0.050 10^6/uL (0.028-0.122) 12/30/18 04:00 Absolute Neuts (auto) 5.0 10^3/uL (1.7-8.2) 01/03/19 04:26 Absolute Lymphs (auto) 1.8 10^3/uL (0.5-4.7) 01/03/19 04:26 Absolute Monos (auto) 0.9 10^3/uL (0.1-1.4) 01/03/19 04:26 Absolute Eos (auto) 0.1 10^3/uL (0.0-0.6) 01/03/19 04:26 Absolute Basos (auto) 0.1 10^3/uL (0.0-0.2) 01/03/19 04:26 Seg Neutrophils % 64.2 % (42-78) 01/03/19 04:26 Retic Count (auto) 2.01 % (0.66-2.85) 12/30/18 04:00 Sodium 143.0 mmol/L (137-145) 01/03/19 04:26 Potassium 4.5 mmol/L (3.6-5.0) 01/03/19 04:26 Chloride 110 mmol/L (98-107) H 01/03/19 04:26 Carbon Dioxide 26 mmol/L (22-30) 01/03/19 04:26 Anion Gap 7 (5-19) 01/03/19 04:26 BUN 58 mg/dL (7-20) H 01/03/19 04:26 Creatinine 3.45 mg/dL (0.52-1.25) H 01/03/19 04:26 Est GFR ( Amer) 16 (>60) L 01/03/19 04:26 Est GFR (MDRD) Non-Af 13 (>60) L 01/03/19 04:26 Glucose 91 mg/dL (75-110) 01/03/19 04:26 POC Glucose 113 mg/dL (70-110) H 01/03/19 12:02 Calcium 8.5 mg/dL (8.4-10.2) 01/03/19 04:26 Magnesium 1.8 mg/dL (1.6-2.3) 01/02/19 04:30 Iron 51.5 ug/dL (37-170) 12/30/18 04:00 TIBC 220 ug/dL (250-450) L 12/30/18 04:00 % Saturation 23 % 12/30/18 04:00 Ferritin 273.00 ng/mL (11.1-264.0) H 12/30/18 04:00 Total Bilirubin 0.3 mg/dL (0.2-1.3) 01/02/19 04:30 Direct Bilirubin 0.1 mg/dL (0.0-0.4) 01/02/19 04:30 Neonat Total Bilirubin Not Reportable 01/02/19 04:30 Neonat Direct Bilirubin Not Reportable 01/02/19 04:30 Neonat Indirect Bili Not Reportable 01/02/19 04:30 AST 17 U/L (14-36) 01/02/19 04:30 ALT 12 U/L (<35) 01/02/19 04:30 Alkaline Phosphatase 80 U/L (38-126) 01/02/19 04:30 Troponin I < 0.012 ng/mL 12/27/18 13:16 NT-Pro-B Natriuret Pep 4320 pg/mL (<125) H 12/26/18 20:00 Total Protein 5.9 g/dL (6.3-8.2) L 01/02/19 04:30 Albumin 3.2 g/dL (3.5-5.0) L 01/02/19 04:30 Vitamin B12 233.0 pg/mL (239-931) L 12/30/18 04:00 Folate 11.40 ng/mL (>2.76) 12/30/18 04:00 TSH 2.62 uIU/mL (0.47-4.68) 12/26/18 20:00 Urine Color YELLOW 12/26/18 23:11 Urine Appearance SLIGHTLY-CLOUDY 12/26/18 23:11 Urine pH 6.0 (5.0-9.0) 12/26/18 23:11 Ur Specific [place] 1.013 12/26/18 23:11 Urine Protein >=500 mg/dL (NEGATIVE) H 12/26/18 23:11 Urine Glucose (UA) 50 mg/dL (NEGATIVE) H 12/26/18 23:11 Urine Ketones NEGATIVE mg/dL (NEGATIVE) 12/26/18 23:11 Urine Blood SMALL (NEGATIVE) H 12/26/18 23:11 Urine Nitrite NEGATIVE (NEGATIVE) 12/26/18 23:11 Urine Bilirubin NEGATIVE (NEGATIVE) 12/26/18 23:11 Urine Urobilinogen NEGATIVE mg/dL (<2.0) 12/26/18 23:11 Ur Leukocyte Esterase NEGATIVE (NEGATIVE) 12/26/18 23:11 Urine WBC (Auto) 16 /HPF 12/26/18 23:11 Urine RBC (Auto) 1 /HPF 12/26/18 23:11 Urine Bacteria (Auto) 2+ /HPF 12/26/18 23:11 Squamous Epi Cells Auto 4 /HPF 12/26/18 23:11 Urine Mucus (Auto) RARE /LPF 12/26/18 23:11 Urine Ascorbic Acid NEGATIVE (NEGATIVE) 12/26/18 23:11 12/26/18 12/27/18 12/27/18 20:00 01:10 06:36 Troponin I 0.014 0.014 < 0.012 NT-Pro-B Natriuret Pep 4320 H 12/27/18 13:16 Troponin I < 0.012 NT-Pro-B Natriuret Pep Impressions: Chest X-Ray 12/26/18 18:51 IMPRESSION: Mild diffuse interstitial pulmonary opacity and small bilateral pleural effusions, likely edema in the setting of cardiomegaly. Stroke Is this a Stroke Patient?: No Acute Heart Failure - Is this a Heart Failure Patient?: No
== END 2019-01-03 13:45 | disposition home health service (06) | DRG 291 ==
LOC: ER 18:38 → EH 12-27 01:13 → 5 12-27 02:15 → OBSVTOIN 12-30 13:52
PROVIDERS: ADMIT Internal Medicine; ATTEND Internal Medicine
DX: I13.0 Hypertensive heart and chronic kidney disease with heart failure and stage 1 through stage 4 chronic kidney disease, or unspecified chronic kidney disease (principal); I50.41 Acute combined systolic (congestive) and diastolic (congestive) heart failure; N17.9 Acute kidney failure, unspecified; N39.0 Urinary tract infection, site not specified; Z68.42 Body mass index [BMI] 45.0-49.9, adult; I16.0 Hypertensive urgency; E78.00 Pure hypercholesterolemia, unspecified; E11.8 Type 2 diabetes mellitus with unspecified complications; B96.20 Unspecified Escherichia coli [E. coli] as the cause of diseases classified elsewhere; D63.1 Anemia in chronic kidney disease; E11.22 Type 2 diabetes mellitus with diabetic chronic kidney disease; E11.21 Type 2 diabetes mellitus with diabetic nephropathy; N18.3 Chronic kidney disease, stage 3 (moderate); F32.9 Major depressive disorder, single episode, unspecified; J45.909 Unspecified asthma, uncomplicated; G47.33 Obstructive sleep apnea (adult) (pediatric); E66.01 Morbid (severe) obesity due to excess calories; Z99.81 Dependence on supplemental oxygen; Z91.11 Patient's noncompliance with dietary regimen; Z79.4 Long term (current) use of insulin; Z79.891 Long term (current) use of opiate analgesic; Z79.51 Long term (current) use of inhaled steroids; Z79.899 Other long term (current) drug therapy
CPT/HCPCS: 36415; 71046; 78452; 80048; 80053; 81001; 82607; 82728; 82746; 82962; 83540; 83550; 83735; 83880; 84443; 84484; 85025; 85045; 87086; 87088; 87186; 93005; 93010; 93017; 94660; 96374; 96375; 99285; A9500; G0378; J0360; J0696; J1644; J1815; J1940; J2270; J2785; J3490; J7120; Q5106; Q9969

== ENCOUNTER 2019-01-06 12:35 | Emergency (ER) | payer MEDICARE, MEDICAID ==
[2019-01-06 13:41] LABS: ALBUMIN 3.4 g/dL (3.5-5.0); ALKALINE PHOSPHATASE 84 U/L (38-126); ANION GAP 7 (5-19); ASPARTATE AMINO TRANSFERASE 24 U/L (14-36); BILIRUBIN,DIRECT 0.2 mg/dL (0.0-0.4); BILIRUBIN,TOTAL 0.8 mg/dL (0.2-1.3); BLOOD UREA NITROGEN 37 mg/dL (7-20); CARBON DIOXIDE 26 mmol/L (22-30); CHLORIDE 109 mmol/L (98-107); CREATINE KINASE 94 U/L (30-135); GLUCOSE 177 mg/dL (75-110); TOTAL PROTEIN 6.3 g/dL (6.3-8.2)
[2019-01-06 13:42] LABS: ABSOLUTE BASOPHILS # (AUTO) 0.1 10^3/uL (0.0-0.2); ABSOLUTE EOSINOPHILS # (AUTO) 0.1 10^3/uL (0.0-0.6); ABSOLUTE LYMPHOCYTES (AUTO) 1.2 10^3/uL (0.5-4.7); ABSOLUTE MONOCYTES (AUTO) 0.7 10^3/uL (0.1-1.4); ABSOLUTE NEUT (AUTO) 6.8 10^3/uL (1.7-8.2); BASOPHILS % (AUTO) 1.4 % (0-2); EOSINOPHILS % (AUTO) 0.7 % (0-6); HEMOGLOBIN 10.4 g/dL (12.0-15.5); LYMPHOCYTES % (AUTO) 13.9 % (13-45); MEAN CORPUSCULAR HEMOGLOBIN 32.7 pg (27.0-33.4); MEAN CORPUSCULAR HGB CONC 33.6 g/dL (32.0-36.0); MEAN CORPUSCULAR VOLUME 97 fl (80-97); MONOCYTES % (AUTO) 8.3 % (3-13); PLATELET COUNT 371 10^3/uL (150-450); RED BLOOD COUNT 3.19 10^6/uL (3.72-5.28); RED CELL DISTRIBUTION WIDTH 16.3 % (11.5-14.0); SEGMENTED NEUTROPHILS % (AUTO) 75.7 % (42-78); TOTAL CELLS COUNTED % (AUTO) 100 %
[2019-01-06 13:52] LABS: CREATINE KINASE MB 2.07 ng/mL (<4.55); TROPONIN I 0.03 ng/mL
[2019-01-06] MEDS ORDERED: CARVEDILOL 12.5 MG TABLET PO ONE ×2 (15:02→19:21)
[2019-01-06] MEDS ORDERED: IPRATROPIUM/ALBUTEROL 0.5-2.5 MG/3 ML AMPUL NEB ONE (15:02)
[2019-01-06] MEDS ORDERED: AMLODIPINE BESYLATE 10 MG TABLET PO ONE (15:03)
[2019-01-06] MEDS ORDERED: LISINOPRIL 10 MG TABLET PO ONE (15:06)
--- NOTE | 2019-01-06 15:39 | RADIOLOGY REPORT (SQ) ---
EXAM DESCRIPTION: CHEST SINGLE VIEW COMPLETED DATE/TIME: 01/06/2019 3:16 pm REASON FOR STUDY: Short of breath COMPARISON: 12/26/2018 NUMBER OF VIEWS: One view. TECHNIQUE: Single frontal radiographic view of the chest acquired. LIMITATIONS: Body habitus. Portable technique FINDINGS: LUNGS AND PLEURA: There is silhouetting of the left diaphragm and costophrenic angle. Chr onic interstitial changes. MEDIASTINUM AND HILAR STRUCTURES: Stable. HEART AND VASCULATURE: Cardiac enlargement. Vascular congestion. BONES: No acute findings. HARDWARE: None in the chest. OTHER: No other significant finding. IMPRESSION: Vascular congestion. Possible superimposed pneumonia left lower lobe. TECHNICAL DOCUMENTATION: JOB ID: [id number] [employer]- All Rights Reserved Reading location - IP/workstation name: [email or web address]
[2019-01-06] MEDS ORDERED: FUROSEMIDE INJ/PF 20 MG/2 ML SDV IV ONE ×2 (16:13→17:49)
--- NOTE | 2019-01-06 17:41 | ER Document Report ---
Entered by ADIN DELGADILLO SCRIBE 01/06/19 1451 Acting as scribe for:MIRANDA MEDINA MD ED Respiratory Problem - General Chief Complaint: Breathing Difficulty Stated Complaint: TROUBLE BREATHING Time Seen by Provider: 01/06/19 14:39 Primary Care Provider: NATACHA CORMIER MD [Primary Care Provider] - Follow up tomorrow Notes: This 63-year-old female patient comes emergency room complaint shortness of breath for the past 2 days but is worse today. She came to the emergency room on 12/26/2018, admitted on 12/27/2018, discharged on 01/03/2019. She states she thinks she brought her medications here with her on that visit and they did not return home with her. She states she has been without her medication since returning home 3 days ago. She states she called her doctor this morning was told that they could not refill her medication. Reviewing pharmacy records, it appears that she had all of her medications except her carvedilol filled this morning. The carvedilol and the Myrbetriq were 90-day supply filled on 12/03/2018 so that is likely why they did not feel those 2 medications. It appears all the other medications she has been receiving are 25 to 30-day supplies so all of her other medications were refilled today. The patient also reports that she has used her nebulizer and her inhaler. She reports the nebulizer only seems to last for 10 to 15 minutes and then the s hortness of breath returns. She is on 2 L O2 nasal cannula at home. Reviewing the discharge summary for 01/03/2019, they reported that she is on amlodipine 5 mg daily, that had been increased on her most recent prescription from 5 mg to 10 mg daily. They also noted a prescription for lisinopril 40 mg daily, that was not one that was filled at the pharmacy today. TRAVEL OUTSIDE OF THE [place] IN LAST 30 DAYS: No - Related Data Allergies/Adverse Reactions: No Known Allergies Allergy (Verified 12/26/18 18:43) Past Medical History - General Information source: Patient, [facility] Records - Social History Smoking Status: Unknown if Ever Smoked Cigarette use (# per day): No Chew tobacco use (# tins/day): No Smoking Education Provided: No Frequency of alcohol use: None Drug Abuse: None Lives with: Family Family History: CAD, DM, Hypertension Patient has suicidal ideation: No Patient has homicidal ideation: No - Past Medical History Cardiac Medical History: Reports: Hx Congestive Heart Failure, Hx Coronary Artery Disease, Hx Hypercholesterolemia, Hx Hypertension Pulmonary Medical History: Reports: Hx Asthma, Hx Sleep Apnea - Not using CPAP at home Endocrine Medical History: Reports: Hx Diabetes Mellitus Type 2 Musculoskeletal Medical History: Reports Hx Arthritis Psychiatric Medical History: Reports: Hx Depression Past Surgical History: Reports: Hx Cholecystectomy, Hx Tonsillectomy, Hx Tubal Ligation, Other - Carpal tunnel - Immunizations Hx Diphtheria, Pertussis, Tetanus Vaccination: Yes Review of Systems - Review of Systems Constitutional: denies: Fever EENT: No symptoms reported Cardiovascular: No symptoms reported Respiratory: See HPI, Cough, Short of breath, Sputum - thick and clear Gastrointestinal: No symptoms reported Genitourinary: No symptoms reported Female Genitourinary: No symptoms reported Musculoskeletal: No symptoms reported Skin: No symptoms reported Hematologic/Lymphatic: No symptoms reported Neurological/Psychological: No symptoms reported -: Yes All other systems reviewed and negative Physical Exam - Vital signs Vitals: Resp BP 20 208/97 H 01/06/19 12:44 01/06/19 12:44 - Notes Notes: Physical Exam: General: Alert, appears well. HEENT: Normocephalic. Atraumatic. PERRL. Extraocular movements intact. Oropharynx clear. Hirsutism. Neck: Supple. Non-tender. Respiratory: Mild respiratory distress. Wheezing with rales bilaterally. Dyspneic. Cardiovascular: Regular rate and rhythm. Abdominal: Morbidly obese. Non-tender. No distension. Normal Bowel Sounds. Back: No gross abnormalities. Extremities: Moves all four extremities. Upper extremities: Normal inspection. Normal ROM. Lower extremities: Normal inspection. Trace peripheral edema. Normal ROM. Neurological: Normal cognition. AAOx4. Normal speech. Psychological: Normal affect. Normal Mood. Skin: Warm. Dry. Normal color. Course - Re-evaluation Re-evalutation: 01/06/19 19:22 The patient's blood pressure is now down to 181/82, pulse ox is 96% on 2 L nasal cannula. She is advised to contact her primary care provider tomorrow and get her 90-day supply of carvedilol refilled since that is the one she is missing, and doing it now we will put her on the same cycle with the other medication she gets in a 90-day supply. 01/06/19 19:23 Chest x-ray did show some mild pulmonary vascular congestion, the BNP was quite high compared to her last visit. I suspect all of this will improve with her taking her regularly prescribed medications, as she has had nothing in 3 days by history. - Vital Signs Vital signs: Temp Pulse Resp BP Pulse Ox 97.5 F 83 20 166/91 H 96 01/06/19 20:24 01/06/19 20:24 01/06/19 20:24 01/06/19 20:24 01/06/19 20:24 - Laboratory Result Diagrams: 01/06/19 12:47 01/06/19 12:47 Laboratory results interpreted by me: 01/06/19 01/06/19 01/06/19 12:47 12:47 12:47 RBC 3.19 L Hgb 10.4 L Hct 31.0 L RDW 16.3 H Chloride 109 H BUN 37 H Creatinine 2.30 H Est GFR ( Amer) 26 L Est GFR (MDRD) Non-Af 21 L Glucose 177 H NT-Pro-B Natriuret Pep 33491 H Albumin 3.4 L - Diagnostic Test Radiology reviewed: Image reviewed, Reports reviewed - Chest x-ray shows vascular congestion - EKG Interpretation by Me EKG shows normal: Sinus rhythm, [place], Intervals, ST-T Waves. abnormal: QRS Complexes - Borderline R wave progression in the anterior leads Rate: Normal - 93 Rhythm: NSR Voltage: Decreased voltage When compared to previous EKG there are: No significant change Discharge - Discharge Clinical Impression: Pulmonary vascular congestion, Has run out of medications High blood pressure Qualifiers: Hypertension type: essential hypertension Qualified Code(s): I10 - Essential (primary) hypertension Condition: Good Disposition: HOME, SELF-CARE Additional Instructions: Your blood pressure was elevated today and you had some fluid buildup in your lungs, all of this is most likely due to being off of your medications for the past 3 days. 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 Take the lisinopril prescription you received when you are discharged to the pharmacy tomorrow and get that filled. Contact your primary care provider and asked them to refill your carvedilol pr escription since you are out of that medication. Follow-up with your primary care provider tomorrow if you are not improving. RETURN TO THE EMERGENCY ROOM IF ANY NEW OR WORSENING SYMPTOMS. Referrals: NATACHA CORMIER MD [Primary Care Provider] - Follow up tomorrow Michael Attestation: 01/06/19 17:44 I personally performed the services described in the documentation, reviewed and edited the documentation which was dictated to the scribe in my presence, and it accurately records my words and actions. I personally performed the services described in the documentation, reviewed and edited the documentation which was dictated to the scribe in my presence, and it accurately records my words and actions.
[2019-01-06 20:25] VITALS: BP 166/91
--- NOTE | 2019-01-06 22:46 | EKG REPORT ---
SEVERITY:- ABNORMAL ECG - SINUS RHYTHM PROBABLE INFERIOR INFARCT, AGE INDETERMINATE CONSIDER ANTERIOR INFARCT : Confirmed by: Sparkle Ingram 06-Jan-2019 22:45:41
== END 2019-01-06 20:33 | disposition home or self-care (01) ==
LOC: ER 12:35
DX: R09.89 Other specified symptoms and signs involving the circulatory and respiratory systems (principal); I10 Essential (primary) hypertension; T44.7X6A Underdosing of beta-adrenoreceptor antagonists, initial encounter; Z91.128 Patient's intentional underdosing of medication regimen for other reason; Z91.14 Patient's other noncompliance with medication regimen; J45.909 Unspecified asthma, uncomplicated; R06.02 Shortness of breath; R05 Cough; R94.31 Abnormal electrocardiogram [ECG] [EKG]; Z99.81 Dependence on supplemental oxygen; Z79.899 Other long term (current) drug therapy
CPT/HCPCS: 93005; 96376; 94640; 99285; 96374; 36415; 82553; 82550; 85025; 80053; 84484; 83880; 71045; 93010; J1940; A9270 ×4; J7620

== ENCOUNTER 2019-01-17 14:57 | Inpatient (IN) | payer MEDICARE, MEDICAID ==
--- NOTE | 2019-01-17 15:45 | ER Document Report ---
ED Medical Screen (RME) - General Chief Complaint: General Weakness Stated Complaint: BLOOD PRESSURE Time Seen by Provider: 01/17/19 15:36 Primary Care Provider: NATACHA CORMIER MD [Primary Care Provider] - Follow up as needed Notes: Patient is a 63-year-old female with a history of COPD, CHF, renal failure, hypertension, diabetes, and hyperlipidemia who presents to the emergency department with 2 complaints. Patient states that her blood pressure was high at home. It was in the 170 systolic. Patient also states that she has felt short of breath since this weekend. Patient is oxygen dependent on 2 L nasal c annula. She had a breathing treatment prior to coming here to the emergency department via EMS. Exam: Clear breath sounds throughout. Oxygen saturation 84% on room air. Patient was immediately placed on her normal 2 L nasal cannula during my assessment. Her oxygen saturation went up to 95%, which the patient states is her normal. I have greeted and performed a rapid initial assessment of this patient. A comprehensive ED assessment and evaluation of the patient, analysis of test results and completion of medical decision making process will be conducted by an additional ED providers. TRAVEL OUTSIDE OF THE [place] IN LAST 30 DAYS: No - Related Data Allergies/Adverse Reactions: No Known Allergies Allergy (Verified 01/17/19 15:35) Home Medications: dm. copd. htn. high cholesterol. kidney failure. chf Past Medical History - Social History Chew tobacco use (# tins/day): No Frequency of alcohol use: None Drug Abuse: None - Past Medical History Cardiac Medical History: Reports: Hx Congestive Heart Failure, Hx Coronary Artery Disease, Hx Hypercholesterolemia, Hx Hypertension Denies: Hx Atrial Fibrillation, Hx DVT, Hx Heart Attack, Hx Peripheral Vascular Disease, Hx Pulmonary Embolism Pulmonary Medical History: Reports: Hx Asthma, Hx Sleep Apnea - Not using CPAP at home Denies: Hx Bronchitis, Hx COPD, Hx Pneumonia Neurological Medical History: Denies: Hx Cerebrovascular Accident, Hx Seizures Endocrine Medical History: Reports: Hx Diabetes Mellitus Type 2. Denies: Hx Diabetes Mellitus Type 1, Hx Hyperthyroidism, Hx Hypothyroidism Renal/ Medical History: Denies: Hx Peritoneal Dialysis GI Medical History: Denies: Hx Cirrhosis, Hx Crohn's Disease, Hx Hepatitis, Hx Ulcerative Colitis Musculoskeltal Medical History: Reports Hx Arthritis, Denies Hx Gout Skin Medical History: Denies Hx Eczema, Denies Hx Psoriasis Psychiatric Medical History: Reports: Hx Depression Infectious Medical History: Denies: Hx Hepatitis Past Surgical History: Reports: Hx Cholecystectomy, Hx Tonsillectomy, Hx Tubal Ligation, Other - Carpal tunnel - Immunizations Hx Diphtheria, Pertussis, Tetanus Vaccination: Yes Physical Exam - Vital signs Vitals: Temp Pulse BP Pulse Ox 97.8 F 72 141/62 H 84 L 01/17/19 15:24 01/17/19 15:24 01/17/19 15:24 01/17/19 15:24 Course - Vital Signs Vital signs: Temp Pulse Resp BP Pulse Ox 97.8 F 72 141/62 H 84 L 01/17/19 15:24 01/17/19 15:24 01/17/19 15:24 01/17/19 15:24 Doctor's Discharge - Discharge Referrals: NATACHA CORMIER MD [Primary Care Provider] - Follow up as needed
[2019-01-17 16:38] LABS: ABSOLUTE BASOPHILS # (AUTO) 0.1 10^3/uL (0.0-0.2); ABSOLUTE EOSINOPHILS # (AUTO) 0.1 10^3/uL (0.0-0.6); ABSOLUTE LYMPHOCYTES (AUTO) 1.5 10^3/uL (0.5-4.7); ABSOLUTE MONOCYTES (AUTO) 0.7 10^3/uL (0.1-1.4); EOSINOPHILS % (AUTO) 1.1 % (0-6); TOTAL CELLS COUNTED % (AUTO) 100 %
[2019-01-17 16:46] LABS: ABSOLUTE NEUT (AUTO) 5.3 10^3/uL (1.7-8.2); HEMATOCRIT 25.4 % (36.0-47.0); HEMOGLOBIN 8.5 g/dL (12.0-15.5); LYMPHOCYTES % (AUTO) 19.2 % (13-45); MEAN CORPUSCULAR HEMOGLOBIN 32.7 pg (27.0-33.4); MEAN CORPUSCULAR HGB CONC 33.4 g/dL (32.0-36.0); MEAN CORPUSCULAR VOLUME 98 fl (80-97); MONOCYTES % (AUTO) 9.4 % (3-13); PLATELET COUNT 300 10^3/uL (150-450); RED CELL DISTRIBUTION WIDTH 15.4 % (11.5-14.0); SEGMENTED NEUTROPHILS % (AUTO) 69.3 % (42-78); WHITE BLOOD COUNT 7.6 10^3/uL (4.0-10.5)
[2019-01-17 16:54] LABS: ALBUMIN 3.5 g/dL (3.5-5.0); ALKALINE PHOSPHATASE 84 U/L (38-126); ANION GAP 7 (5-19); ASPARTATE AMINO TRANSFERASE 17 U/L (14-36); BILIRUBIN,DIRECT 0.1 mg/dL (0.0-0.4); BILIRUBIN,TOTAL 0.5 mg/dL (0.2-1.3); BLOOD UREA NITROGEN 48 mg/dL (7-20); CALCIUM 8.7 mg/dL (8.4-10.2); CARBON DIOXIDE 25 mmol/L (22-30); CHLORIDE 111 mmol/L (98-107); CREATINE KINASE 130 U/L (30-135); GLUCOSE 102 mg/dL (75-110); POTASSIUM 5.1 mmol/L (3.6-5.0); TOTAL PROTEIN 6.5 g/dL (6.3-8.2)
[2019-01-17 17:06] LABS: CREATINE KINASE MB 3.44 ng/mL (<4.55); TROPONIN I 0.015 ng/mL
--- NOTE | 2019-01-17 19:16 | EKG REPORT ---
SEVERITY:- ABNORMAL ECG - SINUS RHYTHM LOW VOLTAGE THROUGHOUT NONSPECIFIC ANTERIOR ST CHANGES. : Confirmed by: Lázaro Alston MD 17-Jan-2019 19:15:44
[2019-01-17] MEDS ORDERED: IPRATROPIUM/ALBUTEROL 0.5-2.5 MG/3 ML AMPUL NEB ONE (20:02)
--- NOTE | 2019-01-17 20:08 | ER Document Report ---
ED General - General Chief Complaint: General Weakness Stated Complaint: BLOOD PRESSURE Time Seen by Provider: 01/17/19 15:36 TRAVEL OUTSIDE OF THE [place] IN LAST 30 DAYS: No - HPI Notes: Mrs. Ceron is a 63-year-old female with a history of chronic asthma with home oxygen dependency and sleep apnea syndrome on home nocturnal CPAP who presents today complaining of increasing shortness of breath and concern about elevated blood pressure. This lady has also recently been hospitalized for a hypertensiv e emergency and acute kidney injury. Patient denies any change in amount or character of her sputum. She denies fever or chills. She denies chest pain. She says she is increasingly short of breath however. Patient says she is fully compliant with her prescribed medications. She had an office visit with her primary care provider Dr. Sharma approximately 1 week ago. Her most recent discharge summary from 01/03/2019 has been reviewed. Medications listed at the time of discharge include albuterol neb treatments, Norvasc 5 mg daily, lisinopril 40 mg daily, aspirin 81 mg daily carvedilol 12.5 mg every 12 hours Lexapro 20 mg daily Zetia 10 mg daily gabapentin 600 mg each p.m. and 900 mg each a.m. mirabegron on 50 mg daily Protonix 40 mg daily Ultram 50 mg every 8 hours as needed Lantus 15 units every morning. No known allergies. Patient is a non-smoker. - Related Data Allergies/Adverse Reactions: No Known Allergies Allergy (Verified 01/17/19 15:35) Home Medications: dm. copd. htn. high cholesterol. kidney failure. chf Past Medical History - General Information source: Patient - Social History Smoking Status: Never Smoker Chew tobacco use (# tins/day): No Frequency of alcohol use: None Drug Abuse: None Family History: CAD, DM, Hypertension Patient has suicidal ideation: No Patient has homicidal ideation: No - Past Medical History Cardiac Medical History: Reports: Hx Congestive Heart Failure, Hx Coronary A rtery Disease, Hx Hypercholesterolemia, Hx Hypertension Denies: Hx Atrial Fibrillation, Hx DVT, Hx Heart Attack, Hx Peripheral Vascular Disease, Hx Pulmonary Embolism Pulmonary Medical History: Reports: Hx Asthma, Hx Sleep Apnea - Not using CPAP at home Denies: Hx Bronchitis, Hx COPD, Hx Pneumonia Neurological Medical History: Denies: Hx Cerebrovascular Accident, Hx Seizures Endocrine Medical History: Reports: Hx Diabetes Mellitus Type 2. Denies: Hx Diabetes Mellitus Type 1, Hx Hyperthyroidism, Hx Hypothyroidism Renal/ Medical History: Reports: Other - Chronic kidney disease. Denies: Hx Peritoneal Dialysis GI Medical History: Denies: Hx Cirrhosis, Hx Crohn's Disease, Hx Hepatitis, Hx Ulcerative Colitis Musculoskeletal Medical History: Reports Hx Arthritis, Denies Hx Gout Skin Medical History: Denies Hx Eczema, Denies Hx Psoriasis Psychiatric Medical History: Reports: Hx Depression Infectious Medical History: Denies: Hx Hepatitis Past Surgical History: Reports: Hx Cholecystectomy, Hx Tonsillectomy, Hx Tubal Ligation, Other - Carpal tunnel - Immunizations Hx Diphtheria, Pertussis, Tetanus Vaccination: Yes Review of Systems - Review of Systems Notes: Constitutional: Negative for fever. HENT: Negative for sore throat. Eyes: Negative for visual changes. Cardiovascular: Negative for chest pain. Respiratory: As per HPI. Gastrointestinal: Negative for abdominal pain, vomiting or diarrhea. Genitourinary: Negative for dysuria. Musculoskeletal: Negative for back pain. Skin: Negative for rash. Neurological: Negative for headaches, weakness or numbness. 10 point ROS negative except as marked above and in HPI. Physical Exam - Vital signs Vitals: Temp Pulse BP Pulse Ox 97.8 F 72 141/62 H 84 L 01/17/19 15:24 01/17/19 15:24 01/17/19 15:24 01/17/19 15:24 Notes: GENERAL: Morbidly obese female approximately stated age with very flat affect and otherwise in no acute distress. SKIN: Good turgor no rashes. HEAD: Normocephalic atraumatic. EYES: PERRLA. Conjunctivae and sclerae clear. EARS: CANALS AND TMS CLEAR. NOSE: CLEAR. MOUTH: Moist mucosa. Good dentition. No stridor or edema. No drooling. NECK: Supple. No masses or thyromegaly. No adenopathy. Carotids 2+ without bruits. No JVD. Throat: Clear. BACK: Symmetrical without tenderness. CHEST: Respirations unlabored. Scattered faint wheezes and diminished breath sounds at both bases. HEART: Heart sounds distant. Regular rhythm. No murmur gallop or rub. ABDOMEN: Morbidly obese. Soft nontender without masses, organomegaly or r ebound. Bowel sounds normally active. No bruits. GENITALIA: Deferred. EXTREMITIES: 2+ bilateral pretibial edema. No calf tenderness. Cap refill less than 1.5 seconds. Dorsalis pedis and posterior tibial pulses 3+ and symmetrical. NEUROLOGICAL: GCS 15. Alert and oriented x3. Normal gait. Fluent speech. Cranial nerves II through XII intact. Sensorimotor and cerebellar normal. Normal tone. Psychiatric: Flat affect. Course - Vital Signs Vital signs: Temp Pulse Resp BP Pulse Ox 97.4 F 72 12 111/59 L 96 01/17/19 23:43 01/17/19 15:24 01/18/19 01:31 01/18/19 01:31 01/18/19 01:31 - Laboratory Result Diagrams: 01/17/19 16:26 01/17/19 16:26 Laboratory results interpreted by me: 01/17/19 01/17/19 01/17/19 16:26 16:26 16:26 RBC 2.60 L Hgb 8.5 L Hct 25.4 L MCV 98 H RDW 15.4 H Carbonic Acid ABG pH ABG pCO2 ABG pO2 ABG HCO3 ABG Total CO2 ABG O2 Saturation Potassium 5.1 H Chloride 111 H BUN 48 H Creatinine 4.08 H Est GFR ( Amer) 13 L Est GFR (MDRD) Non-Af 11 L NT-Pro-B Natriuret Pep 7400 H 01/17/19 20:40 RBC Hgb Hct MCV RDW Carbonic Acid 1.69 H ABG pH 7.26 L ABG pCO2 56.3 H ABG pO2 75.3 L ABG HCO3 24.5 H ABG Total CO2 26.2 H ABG O2 Saturation 92.7 L Potassium Chloride BUN Creatinine Est GFR ( Amer) Est GFR (MDRD) Non-Af NT-Pro-B Natriuret Pep - EKG Interpretation by Vt EKG shows normal: Sinus rhythm Rate: Normal Rhythm: NSR Additional EKG results interpreted by vt: 01/17/19 20:12 Low voltage throughout. Prominent movement artifact. Compared with prior tracing. Discharge - Discharge Clinical Impression: CKD (chronic kidney disease), stage III, Pneumonia Respiratory failure Qualifiers: Chronicity: acute on chronic Respiratory failure complication: hypercapnia Qualified Code(s): J96.22 - Acute and chronic respiratory failure with hyperca pnia Condition: Stable Disposition: ADMITTED INPATIENT Admitting Provider: Brayden (Hospitalist) Unit Admitted: Medical Floor
--- NOTE | 2019-01-17 20:41 | RADIOLOGY REPORT (SQ) ---
XR CHEST 1 VIEW CLINICAL STATEMENT: Dyspnea COMPARISON: 01/06/2019 FINDINGS: Heart is moderately enlarged. Left lower lobe atelectasis/consolidation. No pneumothorax. No significant pleural effusions. IMPRESSION: Left lower lobe consolidation and pneumonia, similar to the prior study.
[2019-01-17 20:50] LABS: ARTERIAL BLOOD FIO2 2; ARTERIAL BLOOD H2CO3 1.69 mmol/L (1.05-1.35); ARTERIAL BLOOD HCO3 24.5 mmol/L (20-24); ARTERIAL BLOOD O2 SATURATION 92.7 % (94-98); ARTERIAL BLOOD PCO2 56.3 mmHg (35-45); ARTERIAL BLOOD PH 7.26 (7.35-7.45); ARTERIAL BLOOD PO2 75.3 mmHg (80-100); ARTERIAL BLOOD TOTAL CO2 26.2 mmol/L (21-25)
[2019-01-17] MEDS ORDERED: AZITHROMYCIN INJ 500 MG VIAL IV ONE (22:31)
[2019-01-17] MEDS ORDERED: CEFTRIAXONE 1 GM/D5W RTU 1 GM/50 ML RTUPB IV ONE (22:45)
[2019-01-17] MEDS ORDERED: GUAIFENESIN SYRP 200 MG/10 ML UDC PO PRN (23:46)
[2019-01-17] MEDS ORDERED: LEVOFLOXACIN 750 MG/D5W RTU 750 MG/150 ML RTUPB IV ONE (23:54)
[2019-01-17] MEDS ORDERED: MORPHINE SULFATE 10 MG/ML INJ IV PRN (23:55)
[2019-01-17] MEDS ORDERED: RINGERS SOLUTION,LACTATED 1,000 ML IV PRN (23:56)
[2019-01-17] MEDS ORDERED: DEXTROSE 40% GEL 15 GM TUBE PO PRN ×2 (23:57)
[2019-01-17] MEDS ORDERED: GLUCAGON,HUMAN RECOMB 1 MG INJ IM PRN (23:57)
[2019-01-17] MEDS ORDERED: DEXTROSE 50%-WATER 25 GM/50 ML DISP.SYRIN IV PRN ×2 (23:57)
[2019-01-18] MEDS: LEVALBUTEROL HCL NEB 1.25 MG/3 ML AMPUL NEB SCH ×4 (00:23→23:44)
[2019-01-18] MEDS: IPRATROPIUM BROMIDE 0.02% NEB 0.5 MG/2.5 ML AMPUL NEB SCH ×4 (00:23→23:44)
[2019-01-18] MEDS: NITROGLYCERIN 2% OINTMENT 1 GM PACKET TP SCH ×5 (00:26→23:24)
[2019-01-18] MEDS: INSULIN REG, HUMAN 100 UNIT/ML 3 ML VIAL (PYX) SUBCUT SCH ×5 (00:29→22:44)
[2019-01-18] MEDS: GUAIFENESIN 600 MG TABLET.SA PO SCH ×3 (00:31→22:45)
[2019-01-18 01:01] LABS: ARTERIAL BLOOD BASE EXCESS -2.5 mmol/L; ARTERIAL BLOOD H2CO3 1.61 mmol/L (1.05-1.35); ARTERIAL BLOOD HCO3 24.3 mmol/L (20-24); ARTERIAL BLOOD O2 SATURATION 93.1 % (94-98); ARTERIAL BLOOD PCO2 53.5 mmHg (35-45); ARTERIAL BLOOD PH 7.28 (7.35-7.45); ARTERIAL BLOOD PO2 75.2 mmHg (80-100)
[2019-01-18 01:02] LABS: ARTERIAL BLOOD FIO2 30%
--- NOTE | 2019-01-18 01:55 | PDOC H&P ---
History of Present Illness Admission Date/PCP: 01/17/2019 23:03 NATACHA CORMIER MD Patient complains of: Dyspnea History of Present Illness: FINA HERNÁNDEZ is a 63 year old female who presented to the emergency room with acute dyspnea. Patient states that she developed increasing shortness of breath over the course of the day and also noted that her blood pressure was elevated when she checked it at home. Her dyspnea had become severe and was worsened by activity or exertion, as such she decided to present herself to the emergency room. She denies other associated or accompanying signs and symptoms. She admits numerous prior similar episodes that are resulted in hospitalization s, including a hospitalization and an additional emergency room visit within the last 3 weeks. She has not identified any additional aggravating or ameliorating factors for her dyspnea. In the emergency room she was found to have a acute on chronic respiratory failure with hypoxia and hypercapnia. Evidence of an acute kidney injury was also noted and a persistent left lower lobe infiltrate was identified on her chest x-ray. Patient was subsequently admitted to the hospital for further evaluation treatment. Past Medical History Cardiac Medical History: Reports: Congestive Heart Failure, Coronary Artery Disease, Hyperlipidema, Hypertension Denies: Atrial Fibrillation, DVT, Myocardial Infarction, Peripheral Vascular Disease, Pulmonary Embolism Pulmonary Medical History: Reports: Asthma, Respiratory Failure, Sleep Apnea - Not using prescribed nocturnal CPAP at home Denies: Bronchitis, Chronic Obstructive Pulmonary Disease (COPD), Pneumonia EENT Medical History: Denies: Cataracts, Ears - Hearing aids Neurological Medical History: Denies: Hemorrhagic CVA, Ischemic CVA, Seizures Endocrine Medical History: Reports: Diabetes Mellitus Type 2, Obesity Denies: Diabetes Mellitus Type 1, Hyperthyroidism, Hypothyroidism Renal/ Medical History: Reports: Chronic Kidney Disease Denies: Nephrolithiasis Malignancy Medical History: Reports: None GI Medical History: Denies: Cirrhosis, Crohn's Disease, Hepatitis, Ulcerative Colitis Musculoskeltal Medical History: Reports: Arthritis Denies: Gout Skin Medical History: Denies: Eczema, Psoriasis Psychiatric Medical History: Reports: Depression Denies: Alcohol Dependency, Substance Abuse, Tobacco Dependency Traumatic Medical History: Reports: None Hematology: Reports: Anemia - Chronic secondary to kidney disease Denies: Bleeding Tendencies Infectious Medical History: Reports: None Past Surgical History Past Surgical History: Reports: Cholecystectomy, Tonsillectomy, Tubal Ligation, Other - Carpal tunnel Social History Information Source: Patient Lives with: Alone Smoking Status: Never Smoker Electronic Cigarette use?: No Frequency of Alcohol Use: None Hx Recreational Drug Use: No Drugs: None Hx Prescription Drug Abuse: No - Advance Directive Resuscitation Status: Full Code Surrogate healthcare decision maker:: Jaye Wakefield Family History Family History: CAD, DM, Hypertension Parental Family History Reviewed: Yes Children Family History Reviewed: No Sibling(s) Family History Reviewed.: Yes Medication/Allergy Home Medications: Albuterol Sulfate [Proair HFA Inhalation Aerosol 8.5 gm MDI] 2 puff IH Q4HP PRN 12/27/18 Amlodipine Besylate [Norvasc 5 mg Tablet] 5 mg PO DAILY 12/27/18 Aspirin [Adult Aspirin Regimen] 81 mg PO DAILY 12/27/18 Carvedilol [Coreg 12.5 mg Tablet] 12.5 mg PO Q12 12/27/18 Escitalopram Oxalate [Lexapro] 20 mg PO DAILY 12/27/18 Ezetimibe [Zetia 10 mg Tablet] 10 mg PO DAILY 12/27/18 Gabapentin [Neurontin 300 mg Capsule] 600 mg PO QPM 12/27/18 Gabapentin [Neurontin 300 mg Capsule] 900 mg PO QAM 12/27/18 Mirabegron [Myrbetriq] 50 mg PO DAILY 12/27/18 Pantoprazole Sodium [Protonix [address] Tablet] 40 mg PO DAILY 12/27/18 Tramadol HCl [Ultram 50 mg Tablet] 50 mg PO Q8 12/27/18 Insulin Glargine,Hum.rec.anlog [Lantus Insulin 100 Unit/1 ml 10 ml] 15 units SQ QAM 30 Days #1 unit 01/03/19 Lisinopril [Zestril] 40 mg PO DAILY 30 Days #30 tablet 01/03/19 Allergies/Adverse Reactions: No Known Allergies Allergy (Verified 01/17/19 15:35) Review of Systems Constitutional: ABSENT: chills, fever(s) Eyes: ABSENT: visual disturbances, other - Eye pain Ears: ABSENT: hearing changes, other - Ear pain Nose, Mouth, and Throat: ABSENT: headache(s), mouth pain, sore throat Cardiovascular: PRESENT: as per HPI, dyspnea on exertion. ABSENT: chest pain, orthropnea, palpitations Respiratory: PRESENT: dyspnea. ABSENT: cough Gastrointestinal: ABSENT: abdominal pain, constipation, diarrhea, nausea, vomiting Genitourinary: ABSENT: dysuria, hematuria Musculoskeletal: ABSENT: back pain, joint swelling, muscle weakness Integumentary: ABSENT: pruritus, rash Neurological: ABSENT: confusion, convulsions, focal weakness, memory loss, syncope Psychiatric: ABSENT: anxiety, depression Endocrine: ABSENT: cold intolerance, heat intolerance Hematologic/Lymphatic: ABSENT: easy bleeding, easy bruising Allergic/Immunologic: ABSENT: seasonal rhinorrhea Physical Exam Vital Signs: Temp Pulse Resp BP Pulse Ox 98.4 F 72 17 152/62 H 99 01/17/19 19:38 01/17/19 15:24 01/17/19 21:31 01/17/19 21:31 01/17/19 21:31 Intake & Output 01/15/19 01/16/19 01/17/19 23:59 23:59 23:59 Weight 129 kg General appearance: PRESENT: no acute distress, cooperative, morbidly obese, other - On BiPAP Head exam: PRESENT: atraumatic, normocephalic Eye exam: PRESENT: conjunctiva pink. ABSENT: conjunctival injection, scleral icterus Ear exam: PRESENT: normal external ear exam. ABSENT: bleeding, drainage Mouth exam: PRESENT: dry mucosa, neck supple Neck exam: ABSENT: thyromegaly, tracheal deviation Respiratory exam: PRESENT: decreased breath sounds - Decreased breath sounds at both bases, prolonged expiratory phas - Minimally prolonged expiratory phase present in all [place], rales - Fine bibasilar rales, symmetrical, wheezes - Minimal expiratory wheezes present throughout all [place], other - On BiPAP. ABSENT: rhonchi Cardiovascular exam: PRESENT: gallop - Faint S4 gallop, RRR. ABSENT: clicks, rubs Pulses: PRESENT: normal radial pulses, normal dorsalis pedis pul Vascular exam: PRESENT: normal capillary refill. ABSENT: pallor GI/Abdominal exam: PRESENT: normal bowel sounds, soft Rectal exam: PRESENT: deferred Extremities exam: ABSENT: joint swelling, pedal edema Musculoskeletal exam: ABSENT: deformity, dislocation Neurological exam: PRESENT: alert, oriented to person, oriented to place, oriented to time, oriented to situation, CN II-XII grossly intact. ABSENT: motor sensory deficit Psychiatric exam: PRESENT: appropriate affect, normal mood Skin exam: PRESENT: dry, intact, warm. ABSENT: jaundice, rash, urticaria Results Laboratory Results: 01/17/19 16:26 01/17/19 16:26 01/17/19 01/17/19 01/17/19 16:26 16:26 20:40 WBC 7.6 RBC 2.60 L Hgb 8.5 L Hct 25.4 L MCV 98 H MCH 32.7 MCHC 33.4 RDW 15.4 H Plt Count 300 Seg Neutrophils % 69.3 Carbonic Acid 1.69 H HCO3/H2CO3 Ratio 14:1 ABG pH 7.26 L ABG pCO2 56.3 H ABG pO2 75.3 L ABG HCO3 24.5 H ABG O2 Saturation 92.7 L ABG Base Excess -3.0 FiO2 2 Sodium 142.7 Potassium 5.1 H Chloride 111 H Carbon Dioxide 25 Anion Gap 7 BUN 48 H Creatinine 4.08 H Est GFR ( Amer) 13 L Glucose 102 Calcium 8.7 Total Bilirubin 0.5 AST 17 Alkaline Phosphatase 84 Total Protein 6.5 Albumin 3.5 01/17/19 01/17/19 16:26 16:26 Creatine Kinase 130 CK-MB (CK-2) 3.44 Troponin I 0.015 NT-Pro-B Natriuret Pep 7400 H Impressions: Chest X-Ray 01/17/19 20:00 IMPRESSION: Left lower lobe consolidation and pneumonia, similar to the prior study. Assessment and Plan - Diagnosis (1) Acute on chronic diastolic congestive heart failure Is this a current diagnosis for this admission?: Yes (2) Left lower lobe pneumonia Qualifiers: Pneumonia type: due to unspecified organism Qualified Code(s): J18.9 - Pneumonia, unspecified organism Is this a current diagnosis for this admission?: Yes (3) Acute respiratory failure with hypoxia and hypercapnia Is this a current diagnosis for this admission?: Yes (4) Acute kidney injury superimposed on chronic kidney disease Is this a current diagnosis for this admission?: Yes (5) Diabetes mellitus type 2 in obese Is this a current diagnosis for this admission?: Yes (6) Anemia, chronic disease Is this a current diagnosis for this admission?: Yes (7) Obstructive sleep apnea Is this a current diagnosis for this admission?: Yes (8) Hyperlipidemia Qualifiers: Hyperlipidemia type: unspecified Qualified Code(s): E78.5 - Hyperlipidemia, unspecified Is this a current diagnosis for this admission?: Yes (9) Coronary artery disease Qualifiers: Coronary Disease-Associated Artery/Lesion type: [place] artery [place] vs. transplanted heart: [place] heart Associated angina: without angina Qualified Code(s): I25.10 - Atherosclerotic heart disease of [place] coronary artery without angina pectoris Is this a current diagnosis for this admission?: Yes (10) HTN (hypertension) Qualifiers: Hypertension type: essential hypertension Qualified Code(s): I10 - Essential (primary) hypertension Is this a current diagnosis for this admission?: Yes (11) Morbid obesity with BMI of 45.0-49.9, adult Is this a current diagnosis for this admission?: Yes - Plan Summary Summary: Patient is admitted to the medical floor where she will receive routine supportive and symptomatic cares. Her acute dyspnea and congestive heart failure will be treated with morphine sulfate 2 mg IV q1h as needed for dyspnea and nitroglycerin ointment will be applied 1 g every 6 hours. She will be placed on BiPAP as required to support her oxygen saturation at greater than 93%. Her acute on chronic kidney injury will be treated with IV fluids util izing lactated Ringer's and a nephrology consultation will be obtained. Her left lower lobe infiltrate appears to be persistent from her previous hospitalization and therefore will be treated with intravenous cefepime and Levaquin. Additionally she will be treated with an aggressive pulmonary toilet utilizing Xopenex, Atrovent, Mucomyst and Pulmicort delivered via nebulizer. She will be continued on her usual home medications for her numerous chronic medical problems as appropriate. She will be continued on a diabetic, renal and cardiac diet. Kst Operator consultation will be obtained for her multiple medical problems and guidance in weight loss. - Time Time Spent with patient: 25-34 minutes Medications reviewed and adjusted accordingly: Yes Anticipated discharge: Home with Homehealth - Inpatient Certification Based on my medical assessment, after consideration of the patient's comorbidities, presenting symptoms, or acuity I expect that the services needed warrant INPATIENT care.: Yes I certify that my determination is in accordance with my understanding of Medicare's requirements for reasonable and necessary INPATIENT services [42 CFR 412.3e].: Yes Medical Necessity: Failure to Improve With Outpatient Therapy, Significant Comorbidiites Make Outpatient Treatment Too Risky, Need Close Monitoring Due to Risk of Patient Decompensation, Need For IV Fluids, Need for Nebulizer Therapy and Monitoring of Response, Need for IV Antibiotics, Risk of Complication if Not Cared For in Hospital
[2019-01-18] MEDS: PANTOPRAZOLE SODIUM 40 MG TABLET.DR PO SCH ×2 (05:34→18:09)
[2019-01-18] MEDS: HEPARIN SOD (PORCINE) 5,000 UNIT/ML 1 ML VIAL SUBCUT SCH ×3 (05:37→22:44)
[2019-01-18 05:56] LABS: HEMATOCRIT 22.5 % (36.0-47.0); MEAN CORPUSCULAR HEMOGLOBIN 32.3 pg (27.0-33.4); MEAN CORPUSCULAR HGB CONC 33.2 g/dL (32.0-36.0); MEAN CORPUSCULAR VOLUME 97 fl (80-97); PLATELET COUNT 272 10^3/uL (150-450); RED BLOOD COUNT 2.31 10^6/uL (3.72-5.28); RED CELL DISTRIBUTION WIDTH 15.6 % (11.5-14.0); WHITE BLOOD COUNT 5.2 10^3/uL (4.0-10.5)
[2019-01-18 05:57] LABS: HEMOGLOBIN 7.5 g/dL (12.0-15.5)
[2019-01-18 06:10] LABS: ANION GAP 8 (5-19); BLOOD UREA NITROGEN 53 mg/dL (7-20); CALCIUM 8.5 mg/dL (8.4-10.2); CARBON DIOXIDE 22 mmol/L (22-30); CHLORIDE 115 mmol/L (98-107); GLUCOSE 92 mg/dL (75-110); POTASSIUM 4.9 mmol/L (3.6-5.0)
[2019-01-18] MEDS: BUDESONIDE NEB 0.5 MG/2 ML AMPUL NEB SCH ×2 (08:18→21:00)
[2019-01-18] MEDS: CEFEPIME 2 GM/D5W RTU 2 GM/50 ML RTUPB IV SCH ×2 (10:05→23:20)
[2019-01-18] MEDS: ACETYLCYSTEINE 20% SOLN 800 MG/4 ML VIAL.NEB NEB SCH ×2 (11:59→20:59)
--- NOTE | 2019-01-18 18:58 | PDOC PROGRESS REPORT ---
Subjective Progress Note for:: 01/18/19 Subjective:: No adverse events overnight. No new complaints. I came into the room to see her she had taken the BiPAP off to eat and while she was eating her oxygen saturations dropped down into the mid 80s. Put her on 3 L nasal cannula and and it came up to the mid 90s. She says she feels like her breathing is gotten better. Reason For Visit: LEFT LOWER LOBE PNEUMONIA,ACUTE RESPIRATORY FAILUR Physical Exam Vital Signs: Temp Pulse Resp BP Pulse Ox 97.7 F 85 24 H 146/68 H 95 01/18/19 16:50 01/18/19 16:50 01/18/19 16:50 01/18/19 16:50 01/18/19 17:55 Pulse Oximeter Continuous Start: 01/17/19 23:46 Freq: RTQ4 Status: Active Protocol: Document 01/18/19 17:55 [facility] (Rec: 01/18/19 17:55 [facility] [id number]) Pulse Oximetry Assessment Oxygen Saturation (92-100) 95 Oxygen Flow Rate (L/min) 2 Oxygen Delivery Method Nasal Cannula Equipment Usage Initial Set Up Continuous SpO2 Machine # 4 Intake & Output 01/17/19 01/18/19 01/19/19 06:59 06:59 06:59 Intake Total 200 1050 Balance 200 1050 Weight 129 kg 131.3 kg General appearance: PRESENT: no acute distress, cooperative, disheveled, morbidly obese Respiratory exam: PRESENT: decreased breath sounds, symmetrical, unlabored. ABSENT: accessory muscle use, chest wall tenderness, crackles, prolonged expiratory phas, rhonchi, tachypnea, wheezes Cardiovascular exam: PRESENT: RRR, +S1, +S2 Pulses: PRESENT: normal carotid pulses Vascular exam: PRESENT: normal capillary refill GI/Abdominal exam: PRESENT: normal bowel sounds, soft. ABSENT: distended, guarding, rebound, tenderness Extremities exam: ABSENT: clubbing, pedal edema Musculoskeletal exam: PRESENT: normal inspection. ABSENT: deformity Neurological exam: PRESENT: alert, awake, oriented to person, oriented to place, oriented to situation Psychiatric exam: PRESENT: flat affect Skin exam: PRESENT: dry, warm Results Laboratory Results: 01/18/19 05:50 01/18/19 03:57 01/17/19 01/18/19 01/18/19 20:40 00:47 03:57 WBC Cancelled RBC Cancelled Hgb Cancelled Hct Cancelled MCV Cancelled MCH Cancelled MCHC Cancelled RDW Cancelled Plt Count Cancelled Carbonic Acid 1.69 H 1.61 H HCO3/H2CO3 Ratio 14:1 15:1 ABG pH 7.26 L 7.28 L ABG pCO2 56.3 H 53.5 H ABG pO2 75.3 L 75.2 L ABG HCO3 24.5 H 24.3 H ABG O2 Saturation 92.7 L 93.1 L ABG Base Excess -3.0 -2.5 FiO2 2 30% Sodium Potassium Chloride Carbon Dioxide Anion Gap BUN Creatinine Est GFR ( Amer) Glucose Calcium 01/18/19 01/18/19 03:57 05:50 WBC 5.2 RBC 2.31 L Hgb 7.5 L Hct 22.5 L MCV 97 MCH 32.3 MCHC 33.2 RDW 15.6 H Plt Count 272 Carbonic Acid HCO3/H2CO3 Ratio ABG pH ABG pCO2 ABG pO2 ABG HCO3 ABG O2 Saturation ABG Base Excess FiO2 Sodium 145.2 H Potassium 4.9 Chloride 115 H Carbon Dioxide 22 Anion Gap 8 BUN 53 H Creatinine 4.03 H Est GFR ( Amer) 13 L Glucose 92 Calcium 8.5 01/17/19 01/17/19 16:26 16:26 Creatine Kinase 130 CK-MB (CK-2) 3.44 Troponin I 0.015 NT-Pro-B Natriuret Pep 7400 H Impressions: Chest X-Ray 01/17/19 20:00 IMPRESSION: Left lower lobe consolidation and pneumonia, similar to the prior study. Assessment and Plan - Diagnosis (1) Acute respiratory failure with hypoxia and hypercapnia Is this a current diagnosis for this admission?: Yes Plan: Seems to be stable now off BiPAP, will continue supplemental O2. She normally on 2 L at home. Her BNP was elevated, but I do not think that she was excessively fluid overloaded. She is eating and drinking normally so I stop her fluids. (2) Acute exacerbation of chronic obstructive airways disease with asthma Is this a current diagnosis for this admission?: Yes Plan: Improving with therapy, continue current treatment (3) Chronic kidney disease, stage IV (severe) Is this a current diagnosis for this admission?: Yes Plan: Creatinine is fairly close to her normal range (4) Morbid obesity with BMI of 45.0-49.9, adult Is this a current diagnosis for this admission?: Yes Plan: Strongly encouraged lifestyle modification - Plan Summary Summary: Patient is admitted to the medical floor where she will receive routine supportive and symptomatic cares. Her acute dyspnea and congestive heart failure will be treated with morphine sulfate 2 mg IV q1h as needed for dyspnea and nitroglycerin ointment will be applied 1 g every 6 hours. She will be placed on BiPAP as required to support her oxygen saturation at greater than 93%. Her acute on chronic kidney injury will be treated with IV fluids utilizing lactated Ringer's and a nephrology consultation will be obtained. Her left lower lobe infiltrate appears to be persistent from her previous hospitalization and therefore will be treated with intravenous cefepime and Levaquin. Additionally she will be treated with an aggressive pulmonary toilet utilizing Xopenex, Atrovent, Mucomyst and Pulmicort delivered via nebulizer. She will be continued on her usual home medications for her numerous chronic medical problems as appropriate. She will be continued on a diabetic, renal and cardiac diet. Stamp Maker consultation will be obtained for her multiple medical problems and guidance in weight loss. - Time Time Spent with patient: 15-24 minutes
[2019-01-18] MEDS: LEVALBUTEROL HCL NEB 0.63 MG/3 ML AMPUL NEB PRN (20:59)
[2019-01-18] MEDS ORDERED: LEVOFLOXACIN 250 MG/D5W RTU 250 MG/50 ML RTUPB IV SCH (22:00)
--- NOTE | 2019-01-18 22:46 | PDOC CONSULTATION ---
Consultation Consult Date: 01/18/19 Provider Consulted: ARTI OSBORN Consult reason:: I was asked to see the patient for worsening kidney function. History of Present Illness Admission Date/PCP: 01/18/19 00:01 NATACHA CORMIER MD History of Present Illness: FINA HERNÁNDEZ is a 63 year old female with history of congestive heart failure, hypertension sleep apnea chronic kidney disease stage IV, diabetes mellitus type 2, and hypertension who presented to the emergency room last night because of breath. I just saw the patient in the office last Thursday and during that time she was doing fine. Patient said that the next day or day she started to feel short of breath. This is associated with chest pain when she breathes. She denies any cough, fever nor chills. She states that she has not had any urine output since yesterday. She claims that she is eating and drinking fluids normally. She also complains of some left facial swelling where she usually lays down. Initial evaluation in the emergency room but similar to prior study. She was hypoxic. Initial ABG showed a PCO2 of 56.3 with a PO2 of 75.3 with oxygen saturation of 92.7. Patient was placed on BiPAP and still currently on BiPAP when I evaluated her in the emergency room . She also has elevated BUN of 48, and creatinine of 4.08 with EGFR of 11. Her baseline creatinine usually ranges that he states around to the 2.5 with a EGFR of 18-21. Was started on IV antibiotics initially with IV Zithromax and ceftriaxone which now was changed to IV cefepime. Past Medical History Cardiac Medical History: Reports: CHF-Diastolic, Coronary Artery Disease, Hyperlipidemia, Hypertension-primary Pulmonary Medical History: Reports: Asthma, Respiratory Failure, Sleep Apnea - Not using CPAP at home Endocrine Medical History: Reports: Diabetes Mellitus Type 2, Obesity Renal/ Medical History: Reports: Chronic Kidney Disease Stage IV Musculoskeltal Medical History: Reports: Arthritis Psychiatric Medical History: Reports: Depression Hematology Medical History: Reports Anemia Past Surgical History Past Surgical History: Reports: Cholecystectomy, Tonsillectomy, Tubal Ligation, Other - Carpal tunnel Social History Information Source: Patient, [facility] Lives with: Alone Smoking Status: Never Smoker Electronic Cigarette use?: No Frequency of Alcohol Use: None Hx Recreational Drug Use: No Drugs: None Hx Prescription Drug Abuse: No - Advance Directive Resuscitation Status: Full Code Family History Family History: DM - Parents, Hypertension - Parents, Malignancy - Kidney cancer on her father Parental Family History Reviewed: Yes Children Family History Reviewed: Unknown Sibling(s) Family History Reviewed.: Yes Medication/Allergy Home Medications: Albuterol Sulfate [Proair HFA Inhalation Aerosol 8.5 gm MDI] 2 puff IH Q4HP PRN 01/18/19 Amlodipine Besylate [Norvasc 5 mg Tablet] 5 mg PO DAILY 01/18/19 Aspirin [Adult Low Dose Aspirin EC] 81 mg PO DAILY 01/18/19 Carvedilol [Coreg 12.5 mg Tablet] 12.5 mg PO Q12 01/18/19 Escitalopram Oxalate [Lexapro] 20 mg PO DAILY 01/18/19 Ezetimibe [Zetia 10 mg Tablet] 10 mg PO DAILY 01/18/19 Furosemide [Lasix 40 mg Tablet] 40 mg PO DAILY 01/18/19 Gabapentin [Neurontin 300 mg Capsule] 600 mg PO QPM 01/18/19 Gabapentin [Neurontin 300 mg Capsule] 900 mg PO QAM 01/18/19 Insulin Glargine,Hum.rec.anlog [Lantus Insulin 100 Unit/1 ml 10 ml] 15 units SQ QAM 01/18/19 Lisinopril [Zestril] 40 mg PO DAILY 01/18/19 Mirabegron [Myrbetriq] 50 mg PO DAILY 01/18/19 Pantoprazole Sodium [Protonix [address] Tablet] 40 mg PO DAILY 01/18/19 Potassium Chloride [Klor-Con M20] 20 meq PO DAILY 01/18/19 Tramadol HCl [Ultram 50 mg Tablet] 50 mg PO Q8 01/18/19 Allergies/Adverse Reactions: No Known Allergies Allergy (Verified 01/17/19 15:35) Review of Systems All systems: reviewed and no additional remarkable complaints except as stated Review of Systems: Constitutional: ABSENT: chills, fatigue, fever(s), headache(s), weight gain, weight loss Eyes: ABSENT: visual disturbances Ears: ABSENT: hearing changes Cardiovascular: ABSENT: chest pain, edema, orthropnea, palpitations; no dyspnea at rest and exertion Respiratory: ABSENT: cough, hemoptysis Gastrointestinal: ABSENT: abdominal pain, constipation, diarrhea, hematemesis, hematochezia, nausea, vomiting Genitourinary: ABSENT: dysuria, hematuria; diminished decreased urine output Musculoskeletal: ABSENT: joint swelling Integumentary: ABSENT: rash, wounds Neurological: ABSENT: abnormal gait, abnormal speech, confusion, dizziness, focal weakness, numbness, syncope Psychiatric: ABSENT: anxiety, depression Endocrine: ABSENT: cold intolerance, heat intolerance, polydipsia, polyuria Hematologic/Lymphatic: ABSENT: easy bleeding, easy bruising, lymphadenopathy Physical Exam Vital Signs: Temp Pulse Resp BP Pulse Ox 98.1 F 67 17 130/50 H 96 01/18/19 06:00 01/18/19 08:21 01/18/19 08:21 01/18/19 06:31 01/18/19 11:50 Pulse Oximeter Continuous Start: 01/17/19 23:46 Freq: RTQ4 Status: Active Protocol: Document 01/18/19 11:50 [facility] (Rec: 01/18/19 12:01 [facility] [id number]) Pulse Oximetry Assessment Oxygen Saturation (92-100) 96 Oxygen Delivery Method Bi-pap Fraction of Inspired Oxygen (FIO2) 30 Equipment Usage Equipment Standby Continuous SpO2 Machine # nursing monitor Intake & Output 01/17/19 01/18/19 01/19/19 06:59 06:59 06:59 Intake Total 200 Balance 200 Weight 129 kg Exam: General appearance: Patient currently on BiPAP appears to be comfortable, morbidly obese Head exam: PRESENT: atraumatic, normocephalic Eye exam: PRESENT: Conjunctiva pale pple, tongue midline Neck exam: PRESENT: full ROM. ABSENT: carotid bruit, JVD, lymphadenopathy, thyromegaly Respiratory exam: PRESENT: Diminished to auscultation bilaterally. Left base crackles ABSENT: Rhonchi, stridor, wheezes Cardiovascular exam: PRESENT: RRR, soft +S1, +S2. ABSENT: systolic murmur Pulses: PRESENT: normal radial pulses, normal dorsalis pedis pulses GI/Abdominal exam: PRESENT: normal bowel sounds, soft. ABSENT: guarding, mass, tenderness Rectal exam: Deferred Extremities exam: PRESENT: full ROM. ABSENT: calf tenderness, pedal edema Musculoskeletal: PRESENT: full ROM. ABSENT: deformity Neurological exam: PRESENT: alert, Awake, Oriented to person, Oriented to place, Oriented to time, reflexes normal, CN II-XII grossly intact. ABSENT: motor sensory deficit Psychiatric exam: PRESENT: appropriate affect, normal mood. ABSENT: homicidal ideation, suicidal ideation Skin exam: PRESENT: intact, dry, warm. ABSENT: rash Results Laboratory Results: 01/18/19 05:50 01/18/19 03:57 01/17/19 01/17/19 01/17/19 16:26 16:26 20:40 WBC 7.6 RBC 2.60 L Hgb 8.5 L Hct 25.4 L MCV 98 H MCH 32.7 MCHC 33.4 RDW 15.4 H Plt Count 300 Seg Neutrophils % 69.3 Carbonic Acid 1.69 H HCO3/H2CO3 Ratio 14:1 ABG pH 7.26 L ABG pCO2 56.3 H ABG pO2 75.3 L ABG HCO3 24.5 H ABG O2 Saturation 92.7 L ABG Base Excess -3.0 FiO2 2 Sodium 142.7 Potassium 5.1 H Chloride 111 H Carbon Dioxide 25 Anion Gap 7 BUN 48 H Creatinine 4.08 H Est GFR ( Amer) 13 L Glucose 102 Calcium 8.7 Total Bilirubin 0.5 AST 17 Alkaline Phosphatase 84 Total Protein 6.5 Albumin 3.5 01/18/19 01/18/19 01/18/19 00:47 03:57 03:57 WBC Cancelled RBC Cancelled Hgb Cancelled Hct Cancelled MCV Cancelled MCH Cancelled MCHC Cancelled RDW Cancelled Plt Count Cancelled Seg Neutrophils % Carbonic Acid 1.61 H HCO3/H2CO3 Ratio 15:1 ABG pH 7.28 L ABG pCO2 53.5 H ABG pO2 75.2 L ABG HCO3 24.3 H ABG O2 Saturation 93.1 L ABG Base Excess -2.5 FiO2 30% Sodium 145.2 H Potassium 4.9 Chloride 115 H Carbon Dioxide 22 Anion Gap 8 BUN 53 H Creatinine 4.03 H Est GFR ( Amer) 13 L Glucose 92 Calcium 8.5 Total Bilirubin AST Alkaline Phosphatase Total Protein Albumin 01/18/19 05:50 WBC 5.2 RBC 2.31 L Hgb 7.5 L Hct 22.5 L MCV 97 MCH 32.3 MCHC 33.2 RDW 15.6 H Plt Count 272 Seg Neutrophils % Carbonic Acid HCO3/H2CO3 Ratio ABG pH ABG pCO2 ABG pO2 ABG HCO3 ABG O2 Saturation ABG Base Excess FiO2 Sodium Potassium Chloride Carbon Dioxide Anion Gap BUN Creatinine Est GFR ( Amer) Glucose Calcium Total Bilirubin AST Alkaline Phosphatase Total Protein Albumin 01/17/19 01/17/19 16:26 16:26 Creatine Kinase 130 CK-MB (CK-2) 3.44 Troponin I 0.015 NT-Pro-B Natriuret Pep 7400 H Impressions: Chest X-Ray 01/17/19 20:00 IMPRESSION: Left lower lobe consolidation and pneumonia, similar to the prior study. Assessment & Plan - Diagnosis (1) Acute kidney injury superimposed on chronic kidney disease Is this a current diagnosis for this admission?: Yes Plan: Consider possible prerenal azotemia but needs to rule out obstruction due to acute urinary retention as the patient reports she has not been passing urine for the past day at least. Will have English catheter inserted and check patient's urinalysis. We will hold doing kidney ultrasound at this time. She had a duplex of renal arteries in October 15, 2018 which was negative. Her last regular kidney ultrasound was done on February 09, 2018 which shows relatively n ormal size kidneys with no hydronephrosis. Continue monitoring patient's kidney function and electrolytes. Monitor intake and output. Avoid nephrotoxic medications. Patient does not require any renal replacement therapy at this time. (2) Acute respiratory failure with hypoxia and hypercapnia Is this a current diagnosis for this admission?: Yes Plan: Currently requiring BiPAP. This is possibly due to possible left lower lobe pneumonia with associated left pleural effusion. (3) Left lower lobe consolidation Is this a current diagnosis for this admission?: Yes Plan: Patient was given initial doses of IV antibiotics with azithromycin and ceftriaxone in the emergency room and now switched to IV cefepime. (4) Pleural effusion Is this a current diagnosis for this admission?: Yes (5) Anemia, chronic disease Is this a current diagnosis for this admission?: Yes Plan: Chronic kidney disease is a contributory. Effect of IV hydration causing dil ution is also contributory. No obvious signs of bleeding. (6) Diabetes mellitus type 2 in obese Is this a current diagnosis for this admission?: Yes (7) HTN (hypertension) Qualifiers: Hypertension type: essential hypertension Qualified Code(s): I10 - Essential (primary) hypertension Is this a current diagnosis for this admission?: Yes (8) NILO (obstructive sleep apnea) Is this a current diagnosis for this admission?: Yes - Notes Notes: Thank you very much for this consultation. I will follow the patient with you. - Time Time Spent: 50 to 70 Minutes
[2019-01-19] MEDS: LEVALBUTEROL HCL NEB 0.63 MG/3 ML AMPUL NEB PRN (05:25)
[2019-01-19] MEDS: HEPARIN SOD (PORCINE) 5,000 UNIT/ML 1 ML VIAL SUBCUT SCH (05:28)
[2019-01-19] MEDS: NITROGLYCERIN 2% OINTMENT 1 GM PACKET TP SCH ×3 (05:28→18:28)
[2019-01-19] MEDS: PANTOPRAZOLE SODIUM 40 MG TABLET.DR PO SCH ×2 (05:30→18:28)
[2019-01-19 07:21] LABS: HEMATOCRIT 22.4 % (36.0-47.0); MEAN CORPUSCULAR HEMOGLOBIN 32.5 pg (27.0-33.4); MEAN CORPUSCULAR HGB CONC 33.6 g/dL (32.0-36.0); MEAN CORPUSCULAR VOLUME 97 fl (80-97); PLATELET COUNT 266 10^3/uL (150-450); RED BLOOD COUNT 2.33 10^6/uL (3.72-5.28); RED CELL DISTRIBUTION WIDTH 14.8 % (11.5-14.0); WHITE BLOOD COUNT 6.1 10^3/uL (4.0-10.5)
[2019-01-19 07:30] LABS: HEMOGLOBIN 7.6 g/dL (12.0-15.5)
[2019-01-19 07:44] LABS: ANION GAP 8 (5-19); BLOOD UREA NITROGEN 52 mg/dL (7-20); CALCIUM 8.4 mg/dL (8.4-10.2); CARBON DIOXIDE 24 mmol/L (22-30); CHLORIDE 111 mmol/L (98-107); GLUCOSE 117 mg/dL (75-110); POTASSIUM 4.8 mmol/L (3.6-5.0)
[2019-01-19] MEDS: ACETYLCYSTEINE 20% SOLN 800 MG/4 ML VIAL.NEB NEB SCH ×2 (08:33→20:31)
[2019-01-19] MEDS: IPRATROPIUM BROMIDE 0.02% NEB 0.5 MG/2.5 ML AMPUL NEB SCH ×2 (08:33→16:18)
[2019-01-19] MEDS: LEVALBUTEROL HCL NEB 1.25 MG/3 ML AMPUL NEB SCH ×2 (08:33→16:18)
[2019-01-19] MEDS: BUDESONIDE NEB 0.5 MG/2 ML AMPUL NEB SCH ×2 (08:33→20:30)
[2019-01-19] MEDS: INSULIN REG, HUMAN 100 UNIT/ML 3 ML VIAL (PYX) SUBCUT SCH ×4 (09:48→21:27)
[2019-01-19] MEDS: GUAIFENESIN 600 MG TABLET.SA PO SCH ×2 (09:50→21:28)
[2019-01-19] MEDS: CEFEPIME 2 GM/D5W RTU 2 GM/50 ML RTUPB IV SCH ×2 (09:50→21:28)
--- NOTE | 2019-01-19 11:13 | PDOC PROGRESS REPORT ---
Subjective Progress Note for:: 01/19/19 Subjective:: Patient is currently on nasal cannula with good oxygen saturation between 94 to 95% at rest. However she still complains of shortness of breath and very minimal exertion. He is making adequate amount of urine output although unfortunately I do not think everything was recorded. Patient said that her English bag was emptied twice but there was only a 425 mL urine output that was recorded. She states that she does drink 3-4 bottles of water a day at home. She was on Lasix 40 mg daily for the last 3 days and she states that she has been urinating fine with that except for the last 24 hours prior to admission. Reason For Visit: LEFT LOWER LOBE PNEUMONIA,ACUTE RESPIRATORY FAILUR Physical Exam Vital Signs: Temp Pulse Resp BP Pulse Ox 98.3 F 86 18 144/56 H 96 01/19/19 07:00 01/19/19 08:33 01/19/19 08:33 01/19/19 07:00 01/19/19 08:33 Pulse Oximeter Continuous Start: 01/17/19 23:46 Freq: RTQ4 Status: Active Protocol: Document 01/19/19 08:33 [facility] (Rec: 01/19/19 08:56 [facility] [id number]) Pulse Oximetry Assessment Oxygen Saturation (92-100) 96 Oxygen Flow Rate (L/min) 3 Oxygen Delivery Method Nasal Cannula Equipment Usage Equipment in Use Continuous SpO2 Machine # 4 Intake & Output 01/18/19 01/19/19 01/20/19 06:59 06:59 06:59 Intake Total 200 1150 Output Total 425 Balance 200 725 Weight 129 kg 131 kg Exam: General appearance: PRESENT: no acute distress, cooperative, well-developed, well-nourished Head exam: PRESENT: atraumatic, normocephalic Eye exam: PRESENT: conjunctiva pale, PERRLA. ABSENT: scleral icterus Neck exam: ABSENT: JVD Respiratory exam: PRESENT: Diminished breath sounds, L>R. ABSENT: crackles, rales, rhonchi, unlabored, wheezes Cardiovascular exam: PRESENT: Regular rate rhythm -+S1, +S2. ABSENT: diastolic murmur, systolic murmur GI/Abdominal exam: PRESENT: normal bowel sounds, soft. ABSENT: guarding, mass, tenderness Extremities exam: ABSENT: No edema Neurological exam: PRESENT: alert, awake, oriented to person, place and time. Skin exam: PRESENT: dry, warm, Results Laboratory Results: 01/19/19 07:11 01/19/19 07:11 01/19/19 01/19/19 07:11 07:11 WBC 6.1 RBC 2.33 L Hgb 7.6 L Hct 22.4 L MCV 97 MCH 32.5 MCHC 33.6 RDW 14.8 H Plt Count 266 Sodium 142.6 Potassium 4.8 Chloride 111 H Carbon Dioxide 24 Anion Gap 8 BUN 52 H Creatinine 4.33 H Est GFR ( Amer) 12 L Glucose 117 H Calcium 8.4 01/17/19 01/17/19 16:26 16:26 Creatine Kinase 130 CK-MB (CK-2) 3.44 Troponin I 0.015 NT-Pro-B Natriuret Pep 7400 H Impressions: Chest X-Ray 01/17/19 20:00 IMPRESSION: Left lower lobe consolidation and pneumonia, similar to the prior study. Assessment & Plan - Diagnosis (1) Acute kidney injury superimposed on chronic kidney disease Is this a current diagnosis for this admission?: Yes Plan: Patient is nonoliguric. Given her body habitus is difficult to assess her volume status but she does not appear to be hypervolemic. I will give a very cautious IV fluid hydration. I do not think she needs diuretics at this point. Continue to monitor kidney function. I talked to her nurse in [place] to make sure to record her urine output accurately. (2) Acute respiratory failure with hypoxia and hypercapnia Is this a current diagnosis for this admission?: Yes (3) Left lower lobe consolidation Is this a current diagnosis for this admission?: Yes Plan: Patient being treated for possible pneumonia. Currently on IV antibiotics with both cefepime and Levaquin per hospitalist service. (4) Pleural effusion Is this a current diagnosis for this admission?: Yes Plan: Her left pleural effusion is worse than previous admission. I discussed this with Dr. Farrell. I think the patient needs diagnostic and therapeutic thoracentesis. (5) Anemia, chronic disease Is this a current diagnosis for this admission?: Yes Plan: Check stool for occult blood and iron panel. (6) Diabetes mellitus type 2 in obese Is this a current diagnosis for this admission?: Yes (7) HTN (hypertension) Qualifiers: Hypertension type: essential hypertension Qualified Code(s): I10 - Essential (primary) hypertension Is this a current diagnosis for this admission?: Yes (8) NILO (obstructive sleep apnea) Is this a current diagnosis for this admission?: Yes - Time Time with patient: Greater than 35 minutes
[2019-01-19] MEDS: 1/2 NORMAL SALINE 1,000 ML IV PRN ×2 (11:35→21:36)
[2019-01-19 12:59] LABS: INTERNATIONAL RATION (INR) 1.08
[2019-01-19 13:05] LABS: IRON(TIBC) 38.4 ug/dL (37-170)
[2019-01-19 17:08] LABS: AMORPHOUS SEDIMENT,URINE TRACE /HPF; APPEARANCE,URINE CLOUDY; BILIRUBIN,URINE NEGATIVE (NEGATIVE); COLOR,URINE YELLOW; GLUCOSE, URINE 50 mg/dL (NEGATIVE); KETONES,URINE NEGATIVE (NEGATIVE); LEUKOCYTE ESTERASE,URINE MODERATE (NEGATIVE); NITRITE,URINE NEGATIVE (NEGATIVE); PROTEIN,URINE >=500 mg/dL (NEGATIVE); URINE SPECIFIC GRAVITY 1.009; UROBILINOGEN,URINE NEGATIVE mg/dL (<2.0)
--- NOTE | 2019-01-19 19:17 | PDOC PROGRESS REPORT ---
Subjective Progress Note for:: 01/19/19 Subjective:: No adverse events overnight. No new complaints. She is okay at rest but when she exerts herself she gets short of breath. Repeat chest x-ray shows that her chronic left pleural effusion has grown some since her last chest x-ray. Apparently she was taken off of Lasix when she was discharged from here on January 04 and did not restart it until a day or 2 ago. Reason For Visit: LEFT LOWER LOBE PNEUMONIA,ACUTE RESPIRATORY FAILUR Physical Exam Vital Signs: Temp Pulse Resp BP Pulse Ox 98.8 F 86 16 151/71 H 96 01/19/19 15:28 01/19/19 16:18 01/19/19 16:18 01/19/19 15:28 01/19/19 16:18 Pulse Oximeter Continuous Start: 01/17/19 23:46 Freq: RTQ4 Status: Active Protocol: Document 01/19/19 16:18 [facility] (Rec: 01/19/19 16:26 [facility] [id number]) Pulse Oximetry Assessment Oxygen Saturation (92-100) 96 Oxygen Flow Rate (L/min) 3 Oxygen Delivery Method Nasal Cannula Fraction of Inspired Oxygen (FIO2) 32 Equipment Usage Equipment in Use Continuous SpO2 Machine # 4 Intake & Output 01/18/19 01/19/19 01/20/19 06:59 06:59 06:59 Intake Total 200 1150 1150 Output Total 425 775 Balance 200 725 375 Weight 129 kg 131 kg 131 kg General appearance: PRESENT: no acute distress, cooperative, disheveled, morbidly obese Respiratory exam: PRESENT: decreased breath sounds, symmetrical, unlabored. ABSENT: accessory muscle use, chest wall tenderness, crackles, prolonged expiratory phas, rhonchi, tachypnea, wheezes Cardiovascular exam: PRESENT: RRR, +S1, +S2 Pulses: PRESENT: normal carotid pulses Vascular exam: PRESENT: normal capillary refill GI/Abdominal exam: PRESENT: normal bowel sounds, soft. ABSENT: distended, guarding, rebound, tenderness Extremities exam: ABSENT: clubbing, pedal edema Musculoskeletal exam: PRESENT: normal inspection. ABSENT: deformity Neurological exam: PRESENT: alert, awake, oriented to person, oriented to place, oriented to situation Psychiatric exam: PRESENT: flat affect Skin exam: PRESENT: dry, warm Results Laboratory Results: 01/19/19 07:11 01/19/19 07:11 01/19/19 01/19/19 01/19/19 07:11 07:11 07:11 WBC 6.1 RBC 2.33 L Hgb 7.6 L Hct 22.4 L MCV 97 MCH 32.5 MCHC 33.6 RDW 14.8 H Plt Count 266 Retic Count (auto) 1.30 Sodium 142.6 Potassium 4.8 Chloride 111 H Carbon Dioxide 24 Anion Gap 8 BUN 52 H Creatinine 4.33 H Est GFR ( Amer) 12 L Glucose 117 H Calcium 8.4 Iron TIBC % Saturation Ferritin Vitamin B12 Folate Urine Color Urine Appearance Urine pH Ur Specific Collins Urine Protein Urine Glucose (UA) Urine Ketones Urine Blood Urine Nitrite Ur Leukocyte Esterase Urine WBC (Auto) Urine RBC (Auto) 01/19/19 01/19/19 07:11 16:35 WBC RBC Hgb Hct MCV MCH MCHC RDW Plt Count Retic Count (auto) Sodium Potassium Chloride Carbon Dioxide Anion Gap BUN Creatinine Est GFR ( Amer) Glucose Calcium Iron 38.4 TIBC 221 L % Saturation 17 Ferritin 222.00 Vitamin B12 256.0 Folate 12.80 Urine Color YELLOW Urine Appearance CLOUDY Urine pH 5.0 Ur Specific Collins 1.009 Urine Protein >=500 H Urine Glucose (UA) 50 H Urine Ketones NEGATIVE Urine Blood MODERATE H Urine Nitrite NEGATIVE Ur Leukocyte Esterase MODERATE H Urine WBC (Auto) 75 Urine RBC (Auto) 46 01/17/19 01/17/19 16:26 16:26 Creatine Kinase 130 CK-MB (CK-2) 3.44 Troponin I 0.015 NT-Pro-B Natriuret Pep 7400 H Impressions: Chest X-Ray 01/17/19 20:00 IMPRESSION: Left lower lobe consolidation and pneumonia, similar to the prior study. Assessment and Plan - Diagnosis (1) Acute respiratory failure with hypoxia and hypercapnia Is this a current diagnosis for this admission?: Yes Plan: Seems to be stable now off BiPAP, will continue supplemental O2. She normally on 2 L at home. Her BNP was elevated, but I do not think that she was excessively fluid overloaded. She is eating and drinking normally so I stop her fluids. (2) Acute exacerbation of chronic obstructive airways disease with asthma Is this a current diagnosis for this admission?: Yes Plan: Improving with therapy, continue current treatment. So far has responded well without the need for steroids. (3) Chronic kidney disease, stage IV (severe) Is this a current diagnosis for this admission?: Yes Plan: Creatinine is fairly close to her normal range, nephrology has been consulted. She was given a small bolus of fluids today. (4) Morbid obesity with BMI of 45.0-49.9, adult Is this a current diagnosis for this admission?: Yes Plan: Strongly encouraged lifestyle modification (5) Pleural effusion Is this a current diagnosis for this admission?: Yes Plan: I think this is what was being called a left lower lobe consolidation. While possible that she could have pneumonia, it is also possible that with her not being on her Lasix for 2 weeks, that her pleural effusion enlarged, and with her baseline level of extremely low aerobic fitness, slightest exertion would trigger her to get short of breath. She continues on antibiotics but I am somewhat ambivalent about continuing them. She does seem to be improving so we will continue them for now. I am going to get a thoracentesis for the left p leural effusion and will send for fluid studies to make sure that it is not an exudate. - Plan Summary Summary: Patient is admitted to the medical floor where she will receive routine supportive and symptomatic cares. Her acute dyspnea and congestive heart f ailure will be treated with morphine sulfate 2 mg IV q1h as needed for dyspnea and nitroglycerin ointment will be applied 1 g every 6 hours. She will be placed on BiPAP as required to support her oxygen saturation at greater than 93%. Her acute on chronic kidney injury will be treated with IV fluids utilizing lactated Ringer's and a nephrology consultation will be obtained. Her left lower lobe infiltrate appears to be persistent from her previous hospitalization and therefore will be treated with intravenous cefepime and Levaquin. Additionally she will be treated with an aggressive pulmonary toilet utilizing Xopenex, Atrovent, Mucomyst and Pulmicort delivered via nebulizer. She will be continued on her usual home medications for her numerous chronic medical problems as appropriate. She will be continued on a diabetic, renal and cardiac diet. [employer] consultation will be obtained for her multiple medical problems and guidance in weight loss. - Time Time Spent with patient: 25-34 minutes
[2019-01-19] MEDS: POLYETHYLENE GLYCOL 3350 POWDER 17 GM/1 PACKET PO SCH (21:28)
[2019-01-20] MEDS: NITROGLYCERIN 2% OINTMENT 1 GM PACKET TP SCH ×4 (00:10→17:17)
[2019-01-20] MEDS: IPRATROPIUM BROMIDE 0.02% NEB 0.5 MG/2.5 ML AMPUL NEB SCH ×3 (00:25→16:21)
[2019-01-20] MEDS: LEVALBUTEROL HCL NEB 1.25 MG/3 ML AMPUL NEB SCH ×3 (00:25→16:21)
[2019-01-20] MEDS: PANTOPRAZOLE SODIUM 40 MG TABLET.DR PO SCH ×2 (05:43→17:17)
[2019-01-20 06:10] LABS: HEMATOCRIT 21.6 % (36.0-47.0); MEAN CORPUSCULAR HEMOGLOBIN 32.6 pg (27.0-33.4); MEAN CORPUSCULAR HGB CONC 33.5 g/dL (32.0-36.0); MEAN CORPUSCULAR VOLUME 97 fl (80-97); PLATELET COUNT 244 10^3/uL (150-450); RED BLOOD COUNT 2.22 10^6/uL (3.72-5.28); WHITE BLOOD COUNT 5.2 10^3/uL (4.0-10.5)
[2019-01-20 06:21] LABS: ANION GAP 8 (5-19); BLOOD UREA NITROGEN 50 mg/dL (7-20); CALCIUM 8.3 mg/dL (8.4-10.2); CARBON DIOXIDE 22 mmol/L (22-30); CHLORIDE 114 mmol/L (98-107); GLUCOSE 98 mg/dL (75-110); HEMOGLOBIN 7.2 g/dL (12.0-15.5); POTASSIUM 4.7 mmol/L (3.6-5.0)
[2019-01-20] MEDS: INSULIN REG, HUMAN 100 UNIT/ML 3 ML VIAL (PYX) SUBCUT SCH ×4 (07:31→21:02)
[2019-01-20] MEDS: BUDESONIDE NEB 0.5 MG/2 ML AMPUL NEB SCH ×2 (07:32→21:10)
[2019-01-20] MEDS: ACETYLCYSTEINE 20% SOLN 800 MG/4 ML VIAL.NEB NEB SCH ×2 (07:32→21:11)
--- NOTE | 2019-01-20 08:40 | PDOC PROGRESS REPORT ---
Subjective Progress Note for:: 01/20/19 Subjective:: Patient continues to feel short of breath especially when she was off the BiPAP. He said she wore the BiPAP last night and slept good. Currently she is on nasal cannula at feels short of breath. However it is not worse. She is making good amount of urine output recorded as 1775 mL for the last 24 hours. Her intake and output balance is only +176. Her kidney function is at least stabilizing at this time although not at baseline yet. Of note when I saw the p atient in the office on Thursday I started back her Lasix 40 mg daily with her potassium supplement. When I saw her she has significant leg swelling which has resolved upon admission here in the hospital. She was not short of breath when she came to me in the office although she has not been in Lasix since discharge from the hospital last admission. Patient is scheduled for thoracentesis today. Reason For Visit: LEFT LOWER LOBE PNEUMONIA,ACUTE RESPIRATORY FAILUR Physical Exam Vital Signs: Temp Pulse Resp BP Pulse Ox 98.4 F 85 20 166/75 H 92 01/20/19 07:31 01/20/19 07:31 01/20/19 07:31 01/20/19 07:31 01/20/19 07:31 Pulse Oximeter Continuous Start: 01/17/19 23:46 Freq: RTQ4 Status: Active Protocol: Document 01/20/19 03:59 [facility]BE (Rec: 01/20/19 03:59 DBE [email or web address]) Pulse Oximetry Assessment Oxygen Saturation (92-100) 95 Oxygen Delivery Method Bi-pap Fraction of Inspired Oxygen (FIO2) 30 Equipment Usage Equipment in Use Continuous SpO2 Machine # 4 Intake & Output 01/19/19 01/20/19 01/21/19 06:59 06:59 06:59 Intake Total 1150 1951 Output Total 425 1775 Balance 725 176 Weight 131 kg 133.5 kg Exam: General appearance: PRESENT: no acute distress, cooperative, well-developed, well-nourished Head exam: PRESENT: atraumatic, normocephalic Eye exam: PRESENT: conjunctiva pale, PERRLA. ABSENT: scleral icterus Neck exam: ABSENT: JVD Respiratory exam: PRESENT: Diminished breath sounds. ABSENT: crackles, rales, rhonchi, unlabored, wheezes Cardiovascular exam: PRESENT: Regular rate rhythm -+S1, +S2. ABSENT: diastolic murmur, systolic murmur GI/Abdominal exam: PRESENT: normal bowel sounds, soft. ABSENT: guarding, mass, tenderness Extremities exam: ABSENT: No edema Neurological exam: PRESENT: alert, awake, oriented to person, place and time. Skin exam: PRESENT: dry, warm, Results Laboratory Results: 01/20/19 05:05 01/20/19 05:05 01/19/19 01/19/19 01/19/19 07:11 07:11 16:35 WBC RBC Hgb Hct MCV MCH MCHC RDW Plt Count Retic Count (auto) 1.30 Sodium Potassium Chloride Carbon Dioxide Anion Gap BUN Creatinine Est GFR ( Amer) Glucose Calcium Iron 38.4 TIBC 221 L % Saturation 17 Ferritin 222.00 Vitamin B12 256.0 Folate 12.80 Urine Color YELLOW Urine Appearance CLOUDY Urine pH 5.0 Ur Specific [place] 1.009 Urine Protein >=500 H Urine Glucose (UA) 50 H Urine Ketones NEGATIVE Urine Blood MODERATE H Urine Nitrite NEGATIVE Ur Leukocyte Esterase MODERATE H Urine WBC (Auto) 75 Urine RBC (Auto) 46 01/20/19 01/20/19 05:05 05:05 WBC 5.2 RBC 2.22 L Hgb 7.2 L Hct 21.6 L MCV 97 MCH 32.6 MCHC 33.5 RDW 15.0 H Plt Count 244 Retic Count (auto) Sodium 144.0 Potassium 4.7 Chloride 114 H Carbon Dioxide 22 Anion Gap 8 BUN 50 H Creatinine 4.03 H Est GFR ( Amer) 13 L Glucose 98 Calcium 8.3 L Iron TIBC % Saturation Ferritin Vitamin B12 Folate Urine Color Urine Appearance Urine pH Ur Specific [place] Urine Protein Urine Glucose (UA) Urine Ketones Urine Blood Urine Nitrite Ur Leukocyte Esterase Urine WBC (Auto) Urine RBC (Auto) 01/17/19 01/17/19 16:26 16:26 Creatine Kinase 130 CK-MB (CK-2) 3.44 Troponin I 0.015 NT-Pro-B Natriuret Pep 7400 H Impressions: Chest X-Ray 01/17/19 20:00 IMPRESSION: Left lower lobe consolidation and pneumonia, similar to the prior study. Assessment & Plan - Diagnosis (1) Acute kidney injury superimposed on chronic kidney disease Is this a current diagnosis for this admission?: Yes Plan: Patient is nonoliguric. Given her body habitus is difficult to assess her volume status but she does not appear to be hypervolemic. I will give a very cautious IV fluid hydration. I do not think she needs diuretics at this point. Kidney function is at least stable at this time but not at baseline yet. Continue to monitor kidney function. (2) Acute respiratory failure with hypoxia and hypercapnia Is this a current diagnosis for this admission?: Yes (3) Left lower lobe consolidation Is this a current diagnosis for this admission?: Yes Plan: Patient being treated for possible pneumonia. Currently on IV antibiotics with both cefepime and Levaquin per hospitalist service. (4) Pleural effusion Is this a current diagnosis for this admission?: Yes Plan: Her left pleural effusion is worse than previous admission. Patient scheduled for diagnostic and therapeutic thoracentesis today. (5) Anemia, chronic disease Is this a current diagnosis for this admission?: Yes Plan: Check stool for occult blood. Iron panel showed mild iron deficiency. Hemoglobin is slightly lower and is probably because of dilutional effect of IV fluids. If it continues to go down below hemoglobin of 7 patient would warrant blood transfusion. No evidence of obvious active bleeding. Will start oral iron. (6) Diabetes mellitus type 2 in obese Is this a current diagnosis for this admission?: Yes (7) HTN (hypertension) Qualifiers: Hypertension type: essential hypertension Qualified Code(s): I10 - Essential (primary) hypertension Is this a current diagnosis for this admission?: Yes (8) NILO (obstructive sleep apnea) Is this a current diagnosis for this admission?: Yes - Time Time with patient: 15-25 minutes
[2019-01-20] MEDS: LEVOFLOXACIN 500 MG TABLET PO SCH (09:07)
[2019-01-20] MEDS: POLYETHYLENE GLYCOL 3350 POWDER 17 GM/1 PACKET PO SCH (09:07)
[2019-01-20] MEDS: GUAIFENESIN 600 MG TABLET.SA PO SCH ×2 (09:07→21:03)
[2019-01-20] MEDS: CEFEPIME 2 GM/D5W RTU 2 GM/50 ML RTUPB IV SCH ×2 (09:07→21:03)
[2019-01-20] MEDS ORDERED: POLYETHYLENE GLYCOL 3350 POWDER 17 GM/1 PACKET PO SCH (10:00)
[2019-01-20] MEDS: FERROUS SULFATE 325 MG TABLET PO SCH (10:59)
[2019-01-20 11:14] LABS: FLUID APPEARANCE CLEAR; FLUID COLOR STRAW; FLUID SOURCE LUNG; FLUID TYPE PLEURAL; FLUID VISCOSITY LIQUID
--- NOTE | 2019-01-20 11:17 | RADIOLOGY REPORT (SQ) ---
EXAM DESCRIPTION: CHEST SINGLE VIEW COMPLETED DATE/TIME: 01/20/2019 10:41 am REASON FOR STUDY: S/P LT THORACENTESIS COMPARISON: AP chest 01/17/2019, 01/06/2019 EXAM PARAMETERS: NUMBER OF VIEWS: One view. TECHNIQUE: Single frontal radiographic view of the chest acquired. RADIATION DOSE: NA LIMITATIONS: None. FINDINGS: LUNGS AND PLEURA: Post left thoracentesis with removal of 600 mL of clear yellow fluid. N o left-sided pneumothorax. No significant residual pleural fluid. Improved visualization left hemidiaphragm compared to the pre-procedure films, minimal persistent lef t basilar atelectasis or pneumonia is suspected. A 15 mm density is projected over the right lung apex/anterior right 2nd rib on the current plain kadi m which could represent focal airspace disease rather than a true pulmonary nodule. When the patient 's acute respiratory condition has resolved, upright two-view chest film is recommended for further e valuation of this finding. Remainder the right lung is grossly clear. No right pleural effusion or pneumothorax. MEDIASTINUM AND HILAR STRUCTURES: No masses. Contour normal. HEART AND VASCULAR STRUCTURES: Moderate cardiomegaly BONES: No acute findings. HARDWARE: None in the chest. OTHER: No other significant finding. IMPRESSION: Post left thoracentesis. No pneumothorax. Minimal persistent left basilar atelectasis. Since prior imaging, patient has developed a 1.5 cm infiltrate versus nodule over the right upper lob e. When the patient's acute condition resolves, upright two-view chest film is recommended for furth er evaluation of this finding TECHNICAL DOCUMENTATION: JOB ID: [id number] [employer]- All Rights Reserved Reading location - IP/workstation name: [email or web address]
--- NOTE | 2019-01-20 13:03 | RADIOLOGY REPORT (SQ) ---
EXAM DESCRIPTION: CHEST SINGLE VIEW COMPLETED DATE/TIME: 01/20/2019 12:53 pm REASON FOR STUDY: S/P THORACENTESIS 2 HOUR COMPARISON: AP CHEST 01/20/2019, 01/17/2019, 09/28/2018 EXAM PARAMETERS: NUMBER OF VIEWS: One view. TECHNIQUE: Single frontal radiographic view of the chest acquired. RADIATION DOSE: NA LIMITATIONS: None. FINDINGS: LUNGS AND PLEURA: Minimal persistent right upper lobe airspace disease versus nodule marke d with a lower [place]. No right pleural effusion or pneumothorax. Patient is post left thoracentesis 2 hours ago. No pneumothorax. No residual pleural fluid. Patchy left basilar airspace disease is present atelectasis versus pneumonia. MEDIASTINUM AND HILAR STRUCTURES: No masses. Contour normal. HEART AND VASCULAR STRUCTURES: Stable cardiomegaly BONES: No acute findings. HARDWARE: None in the chest. OTHER: No other significant finding. IMPRESSION: Left lower lobe consolidation atelectasis versus pneumonia Minimal right apical airspace disease versus nodule No pneumothorax on 2 hour post thoracentesis film TECHNICAL DOCUMENTATION: JOB ID: [id number] [employer]- All Rights Reserved Reading location - IP/workstation name: [email or web address]
--- NOTE | 2019-01-20 13:45 | RADIOLOGY REPORT (SQ) ---
EXAM DESCRIPTION: U/S THORACENTESIS WITH IMAGING COMPLETED DATE/TIME: 01/20/2019 12:00 pm REASON FOR STUDY: recurrent left pleural effusion (therapeutic tap) COMPARISON: AP chest 01/17/2019 LIMITATIONS: None. PROCEDURE: Procedure, risks, benefit, and alternative explained to patient who then gave written con sent. The posterior left chest wall was marked using ultrasound guidance. A time-out was called for correct marking verification. Chest prepped and draped using sterile technique. Local anesthesia ac hieved using 6 ml of 1% lidocaine injection. A 6fr Safe-T- Centesis set was introduced into the left pleural space. Fluid was aspirated. The catheterknee was removed and the entry site was covered wi th sterile bandage. No immediate complications noted. Post procedure chest x-ray, dictated separatel y, demonstrates no left apical pneumothorax. Images acquired during the procedure were stored on PACS. FINDINGS: ENTRY SITE: Left posterior pleural space FLUID VOLUME: 600 mL FLUID ANALYSIS: Clear straw-colored fluid, sent for testing as per Dr. Banks IMPRESSION: SUCCESSFUL LEFT THORACENTESIS USING ULTRASOUND GUIDANCE. COMMENT: Patient medication list reviewed: Yes- Quality ID# [id number]:Eligible professional attests to doc umenting in the medical record they obtained, updated, or reviewed the patient's current medications. TECHNICAL DOCUMENTATION: JOB ID: [id number] [employer]- All Rights Reserved Reading location - IP/workstation name: [email or web address]
[2019-01-20] MEDS ORDERED: BISACODYL 10 MG SUPP.RECT PR ONE (14:00)
[2019-01-20] MEDS: 1/2 NORMAL SALINE 1,000 ML IV PRN (14:30)
--- NOTE | 2019-01-20 16:49 | PDOC PROGRESS REPORT ---
Subjective Progress Note for:: 01/20/19 Subjective:: No adverse events overnight. She had a thoracentesis today and got about 600 mL resolved. There were no signs of pneumothorax on the immediate post procedure and 2-hour post procedure films. She says she is breathing a lot better now feels like she can take a deep breath. Her urine output is been excellent. Reason For Visit: LEFT LOWER LOBE PNEUMONIA,ACUTE RESPIRATORY FAILUR Physical Exam Vital Signs: Temp Pulse Resp BP Pulse Ox 98.5 F 85 20 167/71 H 95 01/20/19 16:04 01/20/19 16:04 01/20/19 16:04 01/20/19 16:04 01/20/19 16:04 Pulse Oximeter Continuous Start: 01/17/19 23:46 Freq: RTQ4 Status: Active Protocol: Document 01/20/19 13:16 [facility] (Rec: 01/20/19 13:16 [facility] [email or web address]) Pulse Oximetry Assessment Oxygen Saturation (92-100) 96 Oxygen Flow Rate (L/min) 2 Oxygen Delivery Method Nasal Cannula Equipment Usage Equipment in Use Continuous SpO2 Machine # 4 Intake & Output 01/19/19 01/20/19 01/21/19 06:59 06:59 06:59 Intake Total 1150 1951 1530 Output Total 425 1775 650 Balance 725 176 880 Weight 131 kg 133.5 kg 133.5 kg General appearance: PRESENT: no acute distress, cooperative, disheveled, morbidly obese Respiratory exam: PRESENT: decreased breath sounds, symmetrical, unlabored. ABSENT: accessory muscle use, chest wall tenderness, crackles, prolonged expiratory phas, rhonchi, tachypnea, wheezes Cardiovascular exam: PRESENT: RRR, +S1, +S2 Pulses: PRESENT: normal carotid pulses Vascular exam: PRESENT: normal capillary refill GI/Abdominal exam: PRESENT: normal bowel sounds, soft. ABSENT: distended, guarding, rebound, tenderness Extremities exam: ABSENT: clubbing, pedal edema Musculoskeletal exam: PRESENT: normal inspection. ABSENT: deformity Neurological exam: PRESENT: alert, awake, oriented to person, oriented to place, oriented to situation Psychiatric exam: PRESENT: flat affect Skin exam: PRESENT: dry, warm Results Laboratory Results: 01/20/19 05:05 01/20/19 05:05 01/19/19 01/20/19 01/20/19 16:35 05:05 05:05 WBC 5.2 RBC 2.22 L Hgb 7.2 L Hct 21.6 L MCV 97 MCH 32.6 MCHC 33.5 RDW 15.0 H Plt Count 244 Sodium 144.0 Potassium 4.7 Chloride 114 H Carbon Dioxide 22 Anion Gap 8 BUN 50 H Creatinine 4.03 H Est GFR ( Amer) 13 L Glucose 98 Calcium 8.3 L Urine Color YELLOW Urine Appearance CLOUDY Urine pH 5.0 Ur Specific [place] 1.009 Urine Protein >=500 H Urine Glucose (UA) 50 H Urine Ketones NEGATIVE Urine Blood MODERATE H Urine Nitrite NEGATIVE Ur Leukocyte Esterase MODERATE H Urine WBC (Auto) 75 Urine RBC (Auto) 46 Fluid Type Fluid Source Fluid Color Fluid Appearance Fluid Viscosity Fluid WBC Fluid RBC 01/20/19 10:15 WBC RBC Hgb Hct MCV MCH MCHC RDW Plt Count Sodium Potassium Chloride Carbon Dioxide Anion Gap BUN Creatinine Est GFR ( Amer) Glucose Calcium Urine Color Urine Appearance Urine pH Ur Specific [place] Urine Protein Urine Glucose (UA) Urine Ketones Urine Blood Urine Nitrite Ur Leukocyte Esterase Urine WBC (Auto) Urine RBC (Auto) Fluid Type PLEURAL Fluid Source LUNG Fluid Color STRAW Fluid Appearance CLEAR Fluid Viscosity LIQUID Fluid WBC 306 Fluid RBC 301 01/18/19 05:15 Blood Blood Culture (PCR) - Final Staphylococcus Species 01/17/19 01/17/19 16:26 16:26 Creatine Kinase 130 CK-MB (CK-2) 3.44 Troponin I 0.015 NT-Pro-B Natriuret Pep 7400 H Impressions: Chest X-Ray 01/20/19 00:00 IMPRESSION: Left lower lobe consolidation atelectasis versus pneumonia Minimal right apical airspace disease versus nodule No pneumothorax on 2 hour post thoracentesis film Thoracentesis Ultrasound 01/20/19 00:00 IMPRESSION: SUCCESSFUL LEFT THORACENTESIS USING ULTRASOUND GUIDANCE. Assessment and Plan - Diagnosis (1) Acute respiratory failure with hypoxia and hypercapnia Is this a current diagnosis for this admission?: Yes Plan: This is actually acute on chronic. She is on 2 L of oxygen at home and that is what she is on now. Now resolved. (2) Acute exacerbation of chronic obstructive airways disease with asthma Is this a current diagnosis for this admission?: Yes Plan: Improving with therapy, continue current treatment. So far has responded well without the need for steroids. (3) Chronic kidney disease, stage IV (severe) Is this a current diagnosis for this admission?: Yes Plan: Continues with some IV fluids per Dr. Ramirez, creatinine slightly better, with improved urine output (4) Morbid obesity with BMI of 45.0-49.9, adult Is this a current diagnosis for this admission?: Yes Plan: Strongly encouraged lifestyle modification (5) Pleural effusion Is this a current diagnosis for this admission?: Yes Plan: About 600 mL resolved with no post procedure complications thus far, fluid studies have been sent for Gram stain and culture - Plan Summary Summary: Patient is admitted to the medical floor where she will receive routine s upportive and symptomatic cares. Her acute dyspnea and congestive heart failure will be treated with morphine sulfate 2 mg IV q1h as needed for dyspnea and nitroglycerin ointment will be applied 1 g every 6 hours. She will be placed on BiPAP as required to support her oxygen saturation at greater than 93%. Her acute on chronic kidney injury will be treated with IV fluids utilizing lactated Ringer's and a nephrology consultation will be obtained. Her left lower lobe infiltrate appears to be persistent from her previous hospitalization and therefore will be treated with intravenous cefepime and Levaquin. Additionally she will be treated with an aggressive pulmonary toilet utilizing Xopenex, Atrovent, Mucomyst and Pulmicort delivered via nebulizer. She will be continued on her usual home medications for her numerous chronic medical problems as appropriate. She will be continued on a diabetic, renal and cardiac diet. [employer] consultation will be obtained for her multiple medical problems and guidance in weight loss. - Time Time Spent with patient: 15-24 minutes
[2019-01-21] MEDS: NITROGLYCERIN 2% OINTMENT 1 GM PACKET TP SCH ×5 (00:04→23:59)
[2019-01-21] MEDS: ACETAMINOPHEN 325 MG TABLET PO PRN (00:05)
[2019-01-21] MEDS: 1/2 NORMAL SALINE 1,000 ML IV PRN (00:06)
[2019-01-21] MEDS: IPRATROPIUM BROMIDE 0.02% NEB 0.5 MG/2.5 ML AMPUL NEB SCH ×4 (00:10→23:06)
[2019-01-21] MEDS: LEVALBUTEROL HCL NEB 1.25 MG/3 ML AMPUL NEB SCH ×4 (00:10→23:06)
[2019-01-21] MEDS: PANTOPRAZOLE SODIUM 40 MG TABLET.DR PO SCH ×2 (05:11→16:37)
[2019-01-21] MEDS: HYDRALAZINE HCL INJ/PF 20 MG/1 ML SDV IV PRN (05:11)
[2019-01-21] MEDS ORDERED: ONDANSETRON HCL INJ/PF 4 MG/2 ML SDV ONE ×2 (06:04→22:29)
[2019-01-21 06:19] LABS: ABSOLUTE EOSINOPHILS # (AUTO) 0.2 10^3/uL (0.0-0.6); ABSOLUTE LYMPHOCYTES (AUTO) 1.3 10^3/uL (0.5-4.7); ABSOLUTE NEUT (AUTO) 3.8 10^3/uL (1.7-8.2); BASOPHILS % (AUTO) 0.8 % (0-2); EOSINOPHILS % (AUTO) 3.8 % (0-6); MEAN CORPUSCULAR HEMOGLOBIN 32.4 pg (27.0-33.4); MEAN CORPUSCULAR HGB CONC 33.5 g/dL (32.0-36.0); MEAN CORPUSCULAR VOLUME 97 fl (80-97); MONOCYTES % (AUTO) 15.1 % (3-13); PLATELET COUNT 244 10^3/uL (150-450); RED BLOOD COUNT 2.28 10^6/uL (3.72-5.28); RED CELL DISTRIBUTION WIDTH 15.1 % (11.5-14.0); SEGMENTED NEUTROPHILS % (AUTO) 60.3 % (42-78); TOTAL CELLS COUNTED % (AUTO) 100 %; WHITE BLOOD COUNT 6.3 10^3/uL (4.0-10.5)
[2019-01-21 06:20] LABS: HEMOGLOBIN 7.4 g/dL (12.0-15.5)
[2019-01-21 06:43] LABS: ANION GAP 8 (5-19); BLOOD UREA NITROGEN 47 mg/dL (7-20); CALCIUM 8.6 mg/dL (8.4-10.2); CARBON DIOXIDE 22 mmol/L (22-30); CHLORIDE 113 mmol/L (98-107); GLUCOSE 106 mg/dL (75-110); POTASSIUM 4.7 mmol/L (3.6-5.0)
[2019-01-21] MEDS ORDERED: ONDANSETRON HCL INJ/PF 4 MG/2 ML SDV IV ONE (06:45)
[2019-01-21 07:18] LABS: CREATINE KINASE MB 1.89 ng/mL (<4.55); TROPONIN I 0.018 ng/mL
[2019-01-21] MEDS: INSULIN REG, HUMAN 100 UNIT/ML 3 ML VIAL (PYX) SUBCUT SCH ×4 (08:20→22:27)
[2019-01-21] MEDS: BUDESONIDE NEB 0.5 MG/2 ML AMPUL NEB SCH ×2 (08:29→20:03)
[2019-01-21] MEDS: ACETYLCYSTEINE 20% SOLN 800 MG/4 ML VIAL.NEB NEB SCH ×2 (08:30→20:03)
--- NOTE | 2019-01-21 10:29 | RADIOLOGY REPORT (SQ) ---
EXAM DESCRIPTION: ACUTE ABDOMEN SERIES COMPLETED DATE/TIME: 01/21/2019 10:03 am REASON FOR STUDY: Nausea/vomiting COMPARISON: None. NUMBER OF VIEWS: Three views. TECHNIQUE: Frontal chest, supine abdomen and upright/decubitus abdomen radiographic images acquired. LIMITATIONS: None. FINDINGS: CHEST: The cardiac silhouette is enlarged. The pulmonary vasculature is distended. The l inear opacity in the left mid lung could represent a band of atelectasis. The costophrenic sulci are blunted. The density in the left retrocardiac space could represent a combination of pleural fluid, atelectasis and/or pneumonia. FREE AIR: None. BOWEL GAS PATTERN: Nonobstructive pattern. CALCIFICATIONS: No calcifications projecting within the renal fossae or along the expected course of the ureters. HARDWARE: Cholecystectomy clips in the right upper quadrant. SOFT TISSUES: No abnormality. BONES: No acute findings. OTHER: No other findings. IMPRESSION: 1. Unchanged radiographic appearance of the chest with cardiomegaly, indistinctness of t he pulmonary vasculature, and a density in the left retrocardiac space that could represent a combina tion of pleural fluid, atelectasis and/or pneumonia. 2. Nonobstructive bowel gas pattern. TECHNICAL DOCUMENTATION: JOB ID: [id number] [employer]- All Rights Reserved Reading location - IP/workstation name: [email or web address]
[2019-01-21] MEDS: FERROUS SULFATE 325 MG TABLET PO SCH (12:43)
[2019-01-21] MEDS: POLYETHYLENE GLYCOL 3350 POWDER 17 GM/1 PACKET PO SCH (12:43)
[2019-01-21] MEDS: GUAIFENESIN 600 MG TABLET.SA PO SCH ×2 (12:43→22:27)
[2019-01-21] MEDS: CEFEPIME 2 GM/D5W RTU 2 GM/50 ML RTUPB IV SCH ×2 (12:43→22:29)
[2019-01-21 13:28] LABS: TOTAL PROTEIN BODY FLUID 1.2 g/dL (.)
[2019-01-21 13:34] LABS: CREATINE KINASE MB 2.14 ng/mL (<4.55)
[2019-01-21 13:40] LABS: TROPONIN I < 0.012 ng/mL
[2019-01-21] MEDS ORDERED: NORMAL SALINE 250 ML IV PRN (15:13)
[2019-01-21] MEDS ORDERED: FUROSEMIDE INJ/PF 20 MG/2 ML SDV IV ONE (15:15)
--- NOTE | 2019-01-21 15:29 | PDOC PROGRESS REPORT ---
Subjective Progress Note for:: 01/21/19 Subjective:: Patient underwent diagnostic and therapeutic thoracentesis yesterday. About 600 mL of pleural fluid was obtained. Initially the patient said she felt better but then last night her breathing seems to be back to baseline complaining of dyspnea on minimal exertion. Her oxygen saturation though with oxygen per nasal cannula currently is about 96%. She is not really coughing as much. She is making excellent amount of urine output and yesterday made 3000 mL for the past 24 hours. Her blood pressure is mildly elevated this morning. Reason For Visit: LEFT LOWER LOBE PNEUMONIA,ACUTE RESPIRATORY FAILUR Physical Exam Vital Signs: Temp Pulse Resp BP Pulse Ox 98.5 F 95 18 172/79 H 96 01/21/19 05:00 01/21/19 08:32 01/21/19 08:32 01/21/19 05:00 01/21/19 08:32 Pulse Oximeter Continuous Start: 01/17/19 23:46 Freq: RTQ4 Status: Active Protocol: Document 01/21/19 08:32 [facility] (Rec: 01/21/19 08:51 J [email or web address]) Pulse Oximetry Assessment Oxygen Saturation (92-100) 96 Oxygen Flow Rate (L/min) 2 Oxygen Delivery Method Nasal Cannula Equipment Usage Equipment in Use Continuous SpO2 Machine # 4 Intake & Output 01/20/19 01/21/19 01/22/19 06:59 06:59 06:59 Intake Total 1951 4207 Output Total 1775 3000 Balance 176 1207 Weight 133.5 kg 138.8 kg Exam: General appearance: PRESENT: no acute distress, cooperative, well-developed, well-nourished Head exam: PRESENT: atraumatic, normocephalic Eye exam: PRESENT: conjunctiva pale, PERRLA. ABSENT: scleral icterus Neck exam: ABSENT: JVD Respiratory exam: PRESENT: Diminished breath sounds. ABSENT: crackles, rales, rhonchi, unlabored, wheezes Cardiovascular exam: PRESENT: Regular rate rhythm -+S1, +S2. ABSENT: diastolic murmur, systolic murmur GI/Abdominal exam: PRESENT: normal bowel sounds, soft. ABSENT: guarding, mass, tenderness Extremities exam: ABSENT: No edema Neurological exam: PRESENT: alert, awake, oriented to person, place and time. Skin exam: PRESENT: dry, warm, pale Results Laboratory Results: 01/21/19 05:41 01/21/19 05:41 01/20/19 01/21/19 01/21/19 10:15 05:41 05:41 WBC 6.3 RBC 2.28 L Hgb 7.4 L Hct 22.0 L MCV 97 MCH 32.4 MCHC 33.5 RDW 15.1 H Plt Count 244 Seg Neutrophils % 60.3 Sodium 142.5 Potassium 4.7 Chloride 113 H Carbon Dioxide 22 Anion Gap 8 BUN 47 H Creatinine 3.97 H Est GFR ( Amer) 14 L Glucose 106 Calcium 8.6 Fluid Type PLEURAL Fluid Source LUNG Fluid Color STRAW Fluid Appearance CLEAR Fluid Viscosity LIQUID Fluid WBC 306 Fluid RBC 301 01/18/19 05:15 Blood Blood Culture (PCR) - Final Staphylococcus Species 01/17/19 01/17/19 01/21/19 16:26 16:26 06:06 Creatine Kinase 130 96 CK-MB (CK-2) 3.44 Troponin I 0.015 NT-Pro-B Natriuret Pep 7400 H 01/21/19 06:06 Creatine Kinase CK-MB (CK-2) 1.89 Troponin I 0.018 NT-Pro-B Natriuret Pep Impressions: Chest X-Ray 01/20/19 00:00 IMPRESSION: Left lower lobe consolidation atelectasis versus pneumonia Minimal right apical airspace disease versus nodule No pneumothorax on 2 hour post thoracentesis film Thoracentesis Ultrasound 01/20/19 00:00 IMPRESSION: SUCCESSFUL LEFT THORACENTESIS USING ULTRASOUND GUIDANCE. Assessment & Plan - Diagnosis (1) Acute kidney injury superimposed on chronic kidney disease Is this a current diagnosis for this admission?: Yes Plan: Patient is nonoliguric. Given her body habitus is difficult to assess her volume status but she does not appear to be hypervolemic. Kidney function is at least stable at this time but not at baseline yet. Continue to monitor kidney function. We will stop the IV fluids when we start the blood transfusion sometime today. (2) Acute respiratory failure with hypoxia and hypercapnia Is this a current diagnosis for this admission?: Yes (3) Left lower lobe consolidation Is this a current diagnosis for this admission?: Yes Plan: Patient being treated for possible pneumonia. Currently on IV antibiotics with both cefepime and Levaquin per hospitalist service. (4) Pleural effusion Is this a current diagnosis for this admission?: Yes Plan: Status post thoracentesis yesterday, 01/20/2019. About 600 mL of pleural fluid was obtained. (5) Anemia, chronic disease Is this a current diagnosis for this admission?: Yes Plan: Check stool for occult blood, specimen still on collected. Iron panel showed mild iron deficiency. Currently on oral iron. Will transfuse 2 units of packed RBC today with the hope that it can improve the patient's breathing status and energy level. (6) Diabetes mellitus type 2 in obese Is this a current diagnosis for this admission?: Yes (7) HTN (hypertension) Qualifiers: Hypertension type: essential hypertension Qualified Code(s): I10 - Essential (primary) hypertension Is this a current diagnosis for this admission?: Yes (8) NILO (obstructive sleep apnea) Is this a current diagnosis for this admission?: Yes - Notes Notes: Discussed with Dr. Farrell. Also discussed the plan with her nurse, Ayana. - Time Time with patient: Greater than 35 minutes
--- NOTE | 2019-01-21 18:06 | PDOC PROGRESS REPORT ---
Subjective Progress Note for:: 01/21/19 Subjective:: No adverse events overnight. She says that she still gets short of breath with minimal exertion. At rest her oxygen saturations are good on 2 L which is what she is on at home. Urine output has been excellent. Reason For Visit: LEFT LOWER LOBE PNEUMONIA,ACUTE RESPIRATORY FAILUR Physical Exam Vital Signs: Temp Pulse Resp BP Pulse Ox 98.4 F 98 18 145/60 H 96 01/21/19 11:00 01/21/19 16:05 01/21/19 16:05 01/21/19 11:00 01/21/19 16:05 Pulse Oximeter Continuous Start: 01/17/19 23:46 Freq: RTQ4 Status: Active Protocol: Document 01/21/19 16:05 [facility] (Rec: 01/21/19 16:14 [facility] [email or web address]) Pulse Oximetry Assessment Oxygen Saturation (92-100) 96 Oxygen Flow Rate (L/min) 2 Oxygen Delivery Method Nasal Cannula Fraction of Inspired Oxygen (FIO2) 28 Equipment Usage Equipment in Use Continuous SpO2 Machine # 4 Intake & Output 01/20/19 01/21/19 01/22/19 06:59 06:59 06:59 Intake Total 1951 4207 50 Output Total 1775 3000 Balance 176 1207 50 Weight 133.5 kg 138.8 kg General appearance: PRESENT: no acute distress, cooperative, disheveled, morbidly obese Respiratory exam: PRESENT: decreased breath sounds, symmetrical, unlabored. ABSENT: accessory muscle use, chest wall tenderness, crackles, prolonged expiratory phas, rhonchi, tachypnea, wheezes Cardiovascular exam: PRESENT: RRR, +S1, +S2 Pulses: PRESENT: normal carotid pulses Vascular exam: PRESENT: normal capillary refill GI/Abdominal exam: PRESENT: normal bowel sounds, soft. ABSENT: distended, guarding, rebound, tenderness Extremities exam: ABSENT: clubbing, pedal edema Musculoskeletal exam: PRESENT: normal inspection. ABSENT: deformity Neurological exam: PRESENT: alert, awake, oriented to person, oriented to place, oriented to situation Psychiatric exam: PRESENT: flat affect Skin exam: PRESENT: dry, warm Results Laboratory Results: 01/21/19 05:41 01/21/19 05:41 01/20/19 01/21/19 01/21/19 10:15 05:41 05:41 WBC 6.3 RBC 2.28 L Hgb 7.4 L Hct 22.0 L MCV 97 MCH 32.4 MCHC 33.5 RDW 15.1 H Plt Count 244 Seg Neutrophils % 60.3 Sodium 142.5 Potassium 4.7 Chloride 113 H Carbon Dioxide 22 Anion Gap 8 BUN 47 H Creatinine 3.97 H Est GFR ( Amer) 14 L Glucose 106 Calcium 8.6 Fluid Glucose 135 Fluid Total Protein 1.2 Fluid LDH 82 Blood Type Antibody Screen 01/21/19 16:00 WBC RBC Hgb Hct MCV MCH MCHC RDW Plt Count Seg Neutrophils % Sodium Potassium Chloride Carbon Dioxide Anion Gap BUN Creatinine Est GFR ( Amer) Glucose Calcium Fluid Glucose Fluid Total Protein Fluid LDH Blood Type O NEGATIVE Antibody Screen NEGATIVE 01/18/19 05:15 Blood Blood Culture (PCR) - Final Staphylococcus Species 01/17/19 01/17/19 01/21/19 16:26 16:26 06:06 Creatine Kinase 130 96 CK-MB (CK-2) 3.44 Troponin I 0.015 NT-Pro-B Natriuret Pep 7400 H 01/21/19 01/21/19 01/21/19 06:06 12:46 12:46 Creatine Kinase 102 CK-MB (CK-2) 1.89 2.14 Troponin I 0.018 < 0.012 NT-Pro-B Natriuret Pep Impressions: Chest X-Ray 01/20/19 00:00 IMPRESSION: Left lower lobe consolidation atelectasis versus pneumonia Minimal right apical airspace disease versus nodule No pneumothorax on 2 hour post thoracentesis film Thoracentesis Ultrasound 01/20/19 00:00 IMPRESSION: SUCCESSFUL LEFT THORACENTESIS USING ULTRASOUND GUIDANCE. Acute Abdomen Series 01/21/19 00:00 IMPRESSION: 1. Unchanged radiographic appearance of the chest with cardiomegaly, indistinctness of the pulmonary vasculature, and a density in the left retrocardiac space that could represent a combination of pleural fluid, atelectasis and/or pneumonia. 2. Nonobstructive bowel gas pattern. Assessment and Plan - Diagnosis (1) Acute respiratory failure with hypoxia and hypercapnia Is this a current diagnosis for this admission?: Yes Plan: Resolved (2) Acute exacerbation of chronic obstructive airways disease with asthma Is this a current diagnosis for this admission?: Yes Plan: Improving with therapy, continue current treatment. So far has responded well without the need for steroids. (3) Chronic kidney disease, stage IV (severe) Is this a current diagnosis for this admission?: Yes Plan: Continues with some IV fluids per Dr. Ramirez, creatinine slightly better, with improved urine output (4) Morbid obesity with BMI of 45.0-49.9, adult Is this a current diagnosis for this admission?: Yes Plan: Strongly encouraged lifestyle modification (5) Pleural effusion Is this a current diagnosis for this admission?: Yes Plan: Resolved (6) Anemia, chronic disease Is this a current diagnosis for this admission?: Yes Plan: Due to her chronic kidney disease. She is getting a transfusion of 1 unit of packed red blood cells today. Hopefully this will help her whenever she ambulates. - Plan Summary Summary: Patient is admitted to the medical floor where she will receive routine supportive and symptomatic cares. Her acute dyspnea and congestive heart failure will be treated with morphine sulfate 2 mg IV q1h as needed for dyspnea and nitroglycerin ointment will be applied 1 g every 6 hours. She will be placed on BiPAP as required to support her oxygen saturation at greater than 93%. Her acute on chronic kidney injury will be treated with IV fluids utili zing lactated Ringer's and a nephrology consultation will be obtained. Her left lower lobe infiltrate appears to be persistent from her previous hospitalization and therefore will be treated with intravenous cefepime and Levaquin. Additionally she will be treated with an aggressive pulmonary toilet utilizing Xopenex, Atrovent, Mucomyst and Pulmicort delivered via nebulizer. She will be continued on her usual home medications for her numerous chronic medical problems as appropriate. She will be continued on a diabetic, renal and cardiac diet. Multiple Needle Stitcher consultation will be obtained for her multiple medical problems and guidance in weight loss. - Time Time Spent with patient: 15-24 minutes
[2019-01-21] MEDS: LEVALBUTEROL HCL NEB 0.63 MG/3 ML AMPUL NEB PRN (20:03)
[2019-01-21] MEDS ORDERED: FUROSEMIDE INJ/PF 20 MG/2 ML SDV ONE (22:14)
[2019-01-22 03:18] LABS: CREATINE KINASE MB 2.52 ng/mL (<4.55); TROPONIN I 0.017 ng/mL
[2019-01-22] MEDS: 1/2 NORMAL SALINE 1,000 ML IV PRN ×2 (05:35→15:28)
[2019-01-22] MEDS: PANTOPRAZOLE SODIUM 40 MG TABLET.DR PO SCH ×2 (05:35→17:51)
[2019-01-22] MEDS: NITROGLYCERIN 2% OINTMENT 1 GM PACKET TP SCH ×3 (05:36→17:45)
[2019-01-22 05:51] LABS: ABSOLUTE EOSINOPHILS # (AUTO) 0.2 10^3/uL (0.0-0.6); ABSOLUTE LYMPHOCYTES (AUTO) 0.9 10^3/uL (0.5-4.7); ABSOLUTE MONOCYTES (AUTO) 0.9 10^3/uL (0.1-1.4); ABSOLUTE NEUT (AUTO) 4.2 10^3/uL (1.7-8.2); BASOPHILS % (AUTO) 0.7 % (0-2); EOSINOPHILS % (AUTO) 2.6 % (0-6); HEMATOCRIT 28.4 % (36.0-47.0); LYMPHOCYTES % (AUTO) 14.7 % (13-45); MEAN CORPUSCULAR HEMOGLOBIN 31.6 pg (27.0-33.4); MONOCYTES % (AUTO) 14.1 % (3-13); PLATELET COUNT 212 10^3/uL (150-450); RED BLOOD COUNT 3.06 10^6/uL (3.72-5.28); RED CELL DISTRIBUTION WIDTH 16.8 % (11.5-14.0); SEGMENTED NEUTROPHILS % (AUTO) 67.9 % (42-78); TOTAL CELLS COUNTED % (AUTO) 100 %; WHITE BLOOD COUNT 6.1 10^3/uL (4.0-10.5)
[2019-01-22 05:52] LABS: HEMOGLOBIN 9.7 g/dL (12.0-15.5)
[2019-01-22 05:53] LABS: MEAN CORPUSCULAR VOLUME 93 fl (80-97)
[2019-01-22] MEDS: INSULIN REG, HUMAN 100 UNIT/ML 3 ML VIAL (PYX) SUBCUT SCH ×4 (07:14→21:28)
[2019-01-22] MEDS: ACETAMINOPHEN 325 MG TABLET PO PRN (08:42)
[2019-01-22] MEDS: ONDANSETRON HCL INJ/PF 4 MG/2 ML SDV IV PRN (08:42)
[2019-01-22] MEDS: BUDESONIDE NEB 0.5 MG/2 ML AMPUL NEB SCH ×2 (08:48→20:23)
[2019-01-22] MEDS: IPRATROPIUM BROMIDE 0.02% NEB 0.5 MG/2.5 ML AMPUL NEB SCH ×2 (08:48→16:32)
[2019-01-22] MEDS: ACETYLCYSTEINE 20% SOLN 800 MG/4 ML VIAL.NEB NEB SCH ×2 (08:48→20:25)
[2019-01-22] MEDS: LEVALBUTEROL HCL NEB 1.25 MG/3 ML AMPUL NEB SCH ×2 (08:49→16:32)
[2019-01-22] MEDS: LEVOFLOXACIN 500 MG TABLET PO SCH (09:44)
[2019-01-22] MEDS: FERROUS SULFATE 325 MG TABLET PO SCH (09:44)
[2019-01-22] MEDS: GUAIFENESIN 600 MG TABLET.SA PO SCH ×2 (09:44→21:29)
[2019-01-22] MEDS: HYDRALAZINE HCL INJ/PF 20 MG/1 ML SDV IV PRN ×2 (09:45→16:23)
[2019-01-22] MEDS: POLYETHYLENE GLYCOL 3350 POWDER 17 GM/1 PACKET PO SCH (09:45)
[2019-01-22] MEDS ORDERED: PROMETHAZINE HCL INJ 25 MG/1 ML VIAL IV PRN (10:57)
[2019-01-22 11:03] LABS: ANION GAP 8 (5-19); BLOOD UREA NITROGEN 47 mg/dL (7-20); CALCIUM 8.8 mg/dL (8.4-10.2); CARBON DIOXIDE 23 mmol/L (22-30); CHLORIDE 113 mmol/L (98-107); GLUCOSE 131 mg/dL (75-110); POTASSIUM 5.1 mmol/L (3.6-5.0)
[2019-01-22] MEDS: CEFEPIME 2 GM/D5W RTU 2 GM/50 ML RTUPB IV SCH ×2 (11:14→21:28)
[2019-01-22 16:41] LABS: ARTERIAL BLOOD BASE EXCESS -5.1 mmol/L; ARTERIAL BLOOD H2CO3 1.44 mmol/L (1.05-1.35); ARTERIAL BLOOD HCO3 21.7 mmol/L (20-24); ARTERIAL BLOOD O2 SATURATION 92.7 % (94-98); ARTERIAL BLOOD PCO2 47.9 mmHg (35-45); ARTERIAL BLOOD PH 7.27 (7.35-7.45); ARTERIAL BLOOD PO2 73.4 mmHg (80-100); ARTERIAL BLOOD TOTAL CO2 23.2 mmol/L (21-25)
[2019-01-22 16:42] LABS: ARTERIAL BLOOD FIO2 28%
--- NOTE | 2019-01-22 17:16 | PDOC PROGRESS REPORT ---
Subjective Progress Note for:: 01/22/19 Subjective:: No adverse events overnight. She is complaining of some nausea this morning. She had one episode of diarrhea. She is little bit more somnolent but she will awaken and answer questions appropriately. Reason For Visit: LEFT LOWER LOBE PNEUMONIA,ACUTE RESPIRATORY FAILUR Physical Exam Vital Signs: Temp Pulse Resp BP Pulse Ox 98.7 F 82 17 173/68 H 92 01/22/19 12:00 01/22/19 12:00 01/22/19 16:33 01/22/19 12:00 01/22/19 16:33 Pulse Oximeter Continuous Start: 01/17/19 23:46 Freq: RTQ4 Status: Active Protocol: Document 01/22/19 16:33 [facility] (Rec: 01/22/19 16:36 [facility] [email or web address]) Additional RT Notes Other upon arrrival to pt room pt lethargic and rachel. dr had been called by rn and abg collected. pt placed on bipap Pulse Oximetry Assessment Oxygen Saturation (92-100) 92 Oxygen Delivery Method Bi-pap Fraction of Inspired Oxygen (FIO2) 28 Equipment Usage Equipment in Use Continuous SpO2 Machine # 4 Intake & Output 01/21/19 01/22/19 01/23/19 06:59 06:59 06:59 Intake Total 4207 2280 911 Output Total 3000 1875 900 Balance 1207 405 11 Weight 138.8 kg 134.6 kg General appearance: PRESENT: Mild distress, cooperative, disheveled, morbidly obese Respiratory exam: PRESENT: decreased breath sounds, symmetrical, unlabored. ABSENT: accessory muscle use, chest wall tenderness, crackles, prolonged expiratory phase, rhonchi, tachypnea, wheezes Cardiovascular exam: PRESENT: RRR, +S1, +S2 Pulses: PRESENT: normal carotid pulses Vascular exam: PRESENT: normal capillary refill GI/Abdominal exam: PRESENT: normal bowel sounds, soft. ABSENT: distended, guarding, rebound, tenderness Extremities exam: ABSENT: clubbing, pedal edema Musculoskeletal exam: PRESENT: normal inspection. ABSENT: deformity Neurological exam: PRESENT: Drowsy but arousable, oriented to person, oriented to place, oriented to situation Psychiatric exam: PRESENT: flat affect Skin exam: PRESENT: dry, warm Results Laboratory Results: 01/22/19 04:51 01/22/19 04:51 01/21/19 01/22/19 01/22/19 16:00 04:51 04:51 WBC 6.1 RBC 3.06 L Hgb 9.7 L D Hct 28.4 L MCV 93 D MCH 31.6 MCHC 34.0 RDW 16.8 H Plt Count 212 Seg Neutrophils % 67.9 Carbonic Acid HCO3/H2CO3 Ratio ABG pH ABG pCO2 ABG pO2 ABG HCO3 ABG O2 Saturation ABG Base Excess FiO2 Sodium 144.1 Potassium 5.1 H Chloride 113 H Carbon Dioxide 23 Anion Gap 8 BUN 47 H Creatinine 3.89 H Est GFR ( Amer) 14 L Glucose 131 H Calcium 8.8 Stool Occult Blood Blood Type O NEGATIVE Antibody Screen NEGATIVE 01/22/19 01/22/19 09:42 16:25 WBC RBC Hgb Hct MCV MCH MCHC RDW Plt Count Seg Neutrophils % Carbonic Acid 1.44 H HCO3/H2CO3 Ratio 15:1 ABG pH 7.27 L ABG pCO2 47.9 H ABG pO2 73.4 L ABG HCO3 21.7 ABG O2 Saturation 92.7 L ABG Base Excess -5.1 FiO2 28% Sodium Potassium Chloride Carbon Dioxide Anion Gap BUN Creatinine Est GFR ( Amer) Glucose Calcium Stool Occult Blood POSITIVE Blood Type Antibody Screen 01/18/19 05:15 Blood Blood Culture (PCR) - Final Staphylococcus Species 01/18/19 05:15 Blood Blood Culture - Final Staphylococcus Epidermidis 01/17/19 01/17/19 01/21/19 16:26 16:26 06:06 Creatine Kinase 130 96 CK-MB (CK-2) 3.44 Troponin I 0.015 NT-Pro-B Natriuret Pep 7400 H 01/21/19 01/21/19 01/21/19 06:06 12:46 12:46 Creatine Kinase 102 CK-MB (CK-2) 1.89 2.14 Troponin I 0.018 < 0.012 NT-Pro-B Natriuret Pep 01/22/19 01/22/19 02:43 02:43 Creatine Kinase 121 CK-MB (CK-2) 2.52 Troponin I 0.017 NT-Pro-B Natriuret Pep Impressions: Chest X-Ray 01/20/19 00:00 IMPRESSION: Left lower lobe consolidation atelectasis versus pneumonia Minimal right apical airspace disease versus nodule No pneumothorax on 2 hour post thoracentesis film Thoracentesis Ultrasound 01/20/19 00:00 IMPRESSION: SUCCESSFUL LEFT THORACENTESIS USING ULTRASOUND GUIDANCE. Acute Abdomen Series 01/21/19 00:00 IMPRESSION: 1. Unchanged radiographic appearance of the chest with cardiomegaly, indistinctness of the pulmonary vasculature, and a density in the left retrocardiac space that could represent a combination of pleural fluid, atelectasis and/or pneumonia. 2. Nonobstructive bowel gas pattern. Assessment and Plan - Diagnosis (1) Acute respiratory failure with hypoxia and hypercapnia Is this a current diagnosis for this admission?: Yes Plan: Resolved. We got a blood gas on her and her pH is a little bit low, but her PCO2 is not too elevated, her bicarbonate is in the normal range on her blood gas. I am going to put her on BiPAP and try to get her PCO2 down a little bit more to see if this will help. (2) Acute exacerbation of chronic obstructive airways disease with asthma Is this a current diagnosis for this admission?: Yes Plan: Improving with therapy, continue current treatment. So far has responded well without the need for steroids. (3) Chronic kidney disease, stage IV (severe) Is this a current diagnosis for this admission?: Yes Plan: We are going to stop her IV fluids because I am concerned that she is getting a little fluid overloaded and we will give her some Lasix and hope that it would help her breathing. (4) Morbid obesity with BMI of 45.0-49.9, adult Is this a current diagnosis for this admission?: Yes Plan: Strongly encouraged lifestyle modification (5) Pleural effusion Is this a current diagnosis for this admission?: Yes Plan: Resolved (6) Anemia, chronic disease Is this a current diagnosis for this admission?: Yes Plan: Due to her chronic kidney disease. She is getting a transfusion of 1 unit of packed red blood cells today. Hopefully this will help her whenever she ambulates. - Plan Summary Summary: Patient is admitted to the medical floor where she will receive routine supportive and symptomatic cares. Her acute dyspnea and congestive heart failure will be treated with morphine sulfate 2 mg IV q1h as needed for dyspnea and nitroglycerin ointment will be applied 1 g every 6 hours. She will be placed on BiPAP as required to support her oxygen saturation at greater than 93%. Her acute on chronic kidney injury will be treated with IV fluids utilizing lactated Ringer's and a nephrology consultation will be obtained. Her left lower lobe infiltrate appears to be persistent from her previous hospitalization and therefore will be treated with intravenous cefepime and Levaquin. Additionally she will be treated with an aggressive pulmonary toilet utilizing Xopenex, Atrovent, Mucomyst and Pulmicort delivered via nebulizer. She will be continued on her usual home medications for her numerous chronic medical problems as appropriate. She will be continued on a diabetic, renal and cardiac diet. Appointment Specialist consultation will be obtained for her multiple medical problems and guidance in weight loss. - Time Time Spent with patient: 25-34 minutes
[2019-01-22] MEDS ORDERED: AMLODIPINE BESYLATE 5 MG TABLET PO ONE (17:45)
[2019-01-22] MEDS ORDERED: FUROSEMIDE INJ/PF 40 MG/4 ML SDV IV ONE (17:45)
[2019-01-22] MEDS ORDERED: CARVEDILOL 12.5 MG TABLET PO ONE (18:00)
[2019-01-22 18:03] LABS: PH BODY FLUID 7.5 (Not Estab.)
[2019-01-22] MEDS ORDERED: LISINOPRIL 10 MG TABLET PO ONE (19:30)
[2019-01-23] MEDS: LEVALBUTEROL HCL NEB 1.25 MG/3 ML AMPUL NEB SCH ×3 (00:13→16:28)
[2019-01-23] MEDS: IPRATROPIUM BROMIDE 0.02% NEB 0.5 MG/2.5 ML AMPUL NEB SCH ×3 (00:13→16:28)
[2019-01-23] MEDS: NITROGLYCERIN 2% OINTMENT 1 GM PACKET TP SCH ×4 (00:49→17:38)
[2019-01-23] MEDS: HYDRALAZINE HCL INJ/PF 20 MG/1 ML SDV IV PRN ×3 (05:00→17:38)
[2019-01-23] MEDS: PANTOPRAZOLE SODIUM 40 MG TABLET.DR PO SCH ×2 (05:01→16:47)
[2019-01-23 06:02] LABS: ABSOLUTE BASOPHILS # (AUTO) 0.1 10^3/uL (0.0-0.2); ABSOLUTE EOSINOPHILS # (AUTO) 0.1 10^3/uL (0.0-0.6); ABSOLUTE LYMPHOCYTES (AUTO) 0.7 10^3/uL (0.5-4.7); ABSOLUTE MONOCYTES (AUTO) 0.7 10^3/uL (0.1-1.4); ABSOLUTE NEUT (AUTO) 4.3 10^3/uL (1.7-8.2); EOSINOPHILS % (AUTO) 2.2 % (0-6); HEMATOCRIT 30.1 % (36.0-47.0); HEMOGLOBIN 10.4 g/dL (12.0-15.5); LYMPHOCYTES % (AUTO) 12.4 % (13-45); MEAN CORPUSCULAR HEMOGLOBIN 32.2 pg (27.0-33.4); MEAN CORPUSCULAR HGB CONC 34.7 g/dL (32.0-36.0); MEAN CORPUSCULAR VOLUME 93 fl (80-97); MONOCYTES % (AUTO) 12.2 % (3-13); PLATELET COUNT 223 10^3/uL (150-450); RED BLOOD COUNT 3.24 10^6/uL (3.72-5.28); RED CELL DISTRIBUTION WIDTH 17.1 % (11.5-14.0); SEGMENTED NEUTROPHILS % (AUTO) 72.2 % (42-78); TOTAL CELLS COUNTED % (AUTO) 100 %; WHITE BLOOD COUNT 5.9 10^3/uL (4.0-10.5)
[2019-01-23 06:20] LABS: ARTERIAL BLOOD BASE EXCESS -3.7 mmol/L; ARTERIAL BLOOD H2CO3 1.26 mmol/L (1.05-1.35); ARTERIAL BLOOD HCO3 21.9 mmol/L (20-24); ARTERIAL BLOOD O2 SATURATION 96.2 % (94-98); ARTERIAL BLOOD PCO2 41.8 mmHg (35-45); ARTERIAL BLOOD PH 7.34 (7.35-7.45); ARTERIAL BLOOD PO2 87.6 mmHg (80-100); ARTERIAL BLOOD TOTAL CO2 23.2 mmol/L (21-25)
[2019-01-23 06:21] LABS: ARTERIAL BLOOD FIO2 28%
[2019-01-23 06:22] LABS: ANION GAP 8 (5-19); BLOOD UREA NITROGEN 45 mg/dL (7-20); CALCIUM 9.1 mg/dL (8.4-10.2); CARBON DIOXIDE 21 mmol/L (22-30); CHLORIDE 111 mmol/L (98-107); GLUCOSE 112 mg/dL (75-110); POTASSIUM 4.4 mmol/L (3.6-5.0)
[2019-01-23] MEDS: ACETYLCYSTEINE 20% SOLN 800 MG/4 ML VIAL.NEB NEB SCH ×2 (08:23→20:26)
[2019-01-23] MEDS: BUDESONIDE NEB 0.5 MG/2 ML AMPUL NEB SCH ×2 (08:23→20:19)
[2019-01-23] MEDS: INSULIN REG, HUMAN 100 UNIT/ML 3 ML VIAL (PYX) SUBCUT SCH ×4 (09:43→22:10)
[2019-01-23] MEDS: GUAIFENESIN 600 MG TABLET.SA PO SCH ×2 (09:45→10:47)
[2019-01-23] MEDS: LISINOPRIL 10 MG TABLET PO SCH ×2 (09:45→10:47)
[2019-01-23] MEDS: FERROUS SULFATE 325 MG TABLET PO SCH ×2 (09:45→10:47)
[2019-01-23] MEDS: CARVEDILOL 12.5 MG TABLET PO SCH ×3 (09:45→22:05)
[2019-01-23] MEDS: AMLODIPINE BESYLATE 5 MG TABLET PO SCH ×2 (09:46→10:47)
[2019-01-23] MEDS: POLYETHYLENE GLYCOL 3350 POWDER 17 GM/1 PACKET PO SCH ×2 (09:46→09:53)
[2019-01-23] MEDS: CEFEPIME 2 GM/D5W RTU 2 GM/50 ML RTUPB IV SCH (09:46)
[2019-01-23] MEDS ORDERED: METOCLOPRAMIDE HCL INJ/PF 10 MG/2 ML SDV IV PRN (11:30)
--- NOTE | 2019-01-23 14:48 | RADIOLOGY REPORT (SQ) ---
EXAM DESCRIPTION: CT HEAD WITHOUT COMPLETED DATE/TIME: 01/23/2019 2:09 pm REASON FOR STUDY: encephalopathy COMPARISON: 07/28/2018 TECHNIQUE: Axial images acquired through the brain without intravenous contrast. Images reviewed wi th bone, brain and subdural windows. Additional sagittal and coronal reconstructions were generated. Images stored on PACS. All CT scanners at this facility use dose modulation, iterative reconstruction, and/or weight based d osing when appropriate to reduce radiation dose to as low as reasonably achievable (ALARA). [facility]: Dose Right [facility]: CareDose [facility]: Dose Right [facility]: Teradose 4D [facility]: Smart Press RADIATION DOSE: CT Rad equipment meets quality standard of care and radiation dose reduction techniq ues were employed. CTDIvol: 53.2 mGy. DLP: 1017 mGy-cm. mGy. LIMITATIONS: None. FINDINGS: VENTRICLES: Normal size and contour. CEREBRUM: No masses. No hemorrhage. No midline shift. No evidence for acute infarction. Normal gra y/white matter differentiation. No areas of low density in the white matter. CEREBELLUM: No masses. No hemorrhage. No alteration of density. No evidence for acute infarction. EXTRAAXIAL SPACES: No fluid collections. No masses. ORBITS AND GLOBE: No intra- or extraconal masses. Normal contour of globe without masses. CALVARIUM: No fracture. PARANASAL SINUSES: No fluid or mucosal thickening. SOFT TISSUES: No mass or hematoma. OTHER: No other significant finding. IMPRESSION: NORMAL BRAIN CT WITHOUT CONTRAST. EVIDENCE OF ACUTE STROKE: NO. COMMENT: Quality ID # [id number]: Final reports with documentation of one or more dose reduction techniques (e.g., Automated exposure control, adjustment of the mA and/or kV according to patient size, use of iterative reconstruction technique) TECHNICAL DOCUMENTATION: JOB ID: [id number] [employer]- All Rights Reserved Reading location - IP/workstation name: [email or web address]
--- NOTE | 2019-01-23 15:08 | PDOC PROGRESS REPORT ---
Subjective Progress Note for:: 01/23/19 Subjective:: No adverse events overnight. She has been on BiPAP most of the night and interacted with me a little bit better today. She still complaining of nausea. She has not been vomiting. She refused her medications this morning because of nausea. Reason For Visit: LEFT LOWER LOBE PNEUMONIA,ACUTE RESPIRATORY FAILUR Physical Exam Vital Signs: Temp Pulse Resp BP Pulse Ox 99.1 F 82 16 169/67 H 96 01/23/19 01:11 01/23/19 08:26 01/23/19 08:26 01/23/19 01:11 01/23/19 08:26 Pulse Oximeter Continuous Start: 01/17/19 23:46 Freq: RTQ4 Status: Active Protocol: Document 01/23/19 08:26 [facility] (Rec: 01/23/19 08:56 J [email or web address]) Pulse Oximetry Assessment Oxygen Saturation (92-100) 96 Oxygen Delivery Method Bi-pap Fraction of Inspired Oxygen (FIO2) 28 Equipment Usage Equipment in Use Continuous SpO2 Machine # [id number] Intake & Output 01/22/19 01/23/19 01/24/19 06:59 06:59 06:59 Intake Total 2280 1109 50 Output Total 1875 2550 Balance 405 -1441 50 Weight 134.6 kg 134.6 kg General appearance: PRESENT: Mild distress, cooperative, disheveled, morbidly obese Respiratory exam: PRESENT: decreased breath sounds, symmetrical, unlabored. ABSENT: accessory muscle use, chest wall tenderness, crackles, prolonged expiratory phase, rhonchi, tachypnea, wheezes Cardiovascular exam: PRESENT: RRR, +S1, +S2 Pulses: PRESENT: normal carotid pulses Vascular exam: PRESENT: normal capillary refill GI/Abdominal exam: PRESENT: normal bowel sounds, soft. ABSENT: distended, guarding, rebound, tenderness Extremities exam: ABSENT: clubbing, pedal edema Musculoskeletal exam: PRESENT: normal inspection. ABSENT: deformity Neurological exam: PRESENT: Drowsy but arousable, oriented to person, oriented to place, oriented to situation Psychiatric exam: PRESENT: flat affect Skin exam: PRESENT: dry, warm Results Laboratory Results: 01/23/19 05:45 01/23/19 05:45 01/20/19 01/22/19 01/23/19 10:15 16:25 05:35 WBC RBC Hgb Hct MCV MCH MCHC RDW Plt Count Seg Neutrophils % Carbonic Acid 1.44 H 1.26 HCO3/H2CO3 Ratio 15:1 17:1 ABG pH 7.27 L 7.34 L ABG pCO2 47.9 H 41.8 ABG pO2 73.4 L 87.6 ABG HCO3 21.7 21.9 ABG O2 Saturation 92.7 L 96.2 ABG Base Excess -5.1 -3.7 FiO2 28% 28% Sodium Potassium Chloride Carbon Dioxide Anion Gap BUN Creatinine Est GFR ( Amer) Glucose Calcium Fluid pH 7.5 01/23/19 01/23/19 05:45 05:45 WBC 5.9 RBC 3.24 L Hgb 10.4 L Hct 30.1 L MCV 93 MCH 32.2 MCHC 34.7 RDW 17.1 H Plt Count 223 Seg Neutrophils % 72.2 Carbonic Acid HCO3/H2CO3 Ratio ABG pH ABG pCO2 ABG pO2 ABG HCO3 ABG O2 Saturation ABG Base Excess FiO2 Sodium 140.4 Potassium 4.4 Chloride 111 H Carbon Dioxide 21 L Anion Gap 8 BUN 45 H Creatinine 3.46 H Est GFR ( Amer) 16 L Glucose 112 H Calcium 9.1 Fluid pH 01/20/19 10:15 Thoracic Fluid Gram Stain - Final 01/17/19 23:37 Blood Blood Culture - Final NO GROWTH IN 5 DAYS 01/17/19 22:40 Blood Blood Culture - Final NO GROWTH IN 5 DAYS 01/18/19 05:15 Blood Blood Culture (PCR) - Final Staphylococcus Species 01/18/19 05:15 Blood Blood Culture - Final Staphylococcus Epidermidis 01/17/19 01/17/19 01/21/19 16:26 16:26 06:06 Creatine Kinase 130 96 CK-MB (CK-2) 3.44 Troponin I 0.015 NT-Pro-B Natriuret Pep 7400 H 01/21/19 01/21/19 01/21/19 06:06 12:46 12:46 Creatine Kinase 102 CK-MB (CK-2) 1.89 2.14 Troponin I 0.018 < 0.012 NT-Pro-B Natriuret Pep 01/22/19 01/22/19 02:43 02:43 Creatine Kinase 121 CK-MB (CK-2) 2.52 Troponin I 0.017 NT-Pro-B Natriuret Pep Impressions: Chest X-Ray 01/20/19 00:00 IMPRESSION: Left lower lobe consolidation atelectasis versus pneumonia Minimal right apical airspace disease versus nodule No pneumothorax on 2 hour post thoracentesis film Thoracentesis Ultrasound 01/20/19 00:00 IMPRESSION: SUCCESSFUL LEFT THORACENTESIS USING ULTRASOUND GUIDANCE. Acute Abdomen Series 01/21/19 00:00 IMPRESSION: 1. Unchanged radiographic appearance of the chest with cardiomegaly, indistinctness of the pulmonary vasculature, and a density in the left retrocardiac space that could represent a combination of pleural fluid, atelectasis and/or pneumonia. 2. Nonobstructive bowel gas pattern. Head CT 01/23/19 00:00 IMPRESSION: NORMAL BRAIN CT WITHOUT CONTRAST. EVIDENCE OF ACUTE STROKE: NO. Assessment and Plan - Diagnosis (1) Acute respiratory failure with hypoxia and hypercapnia Is this a current diagnosis for this admission?: Yes Plan: Resolved. We got a blood gas on her and her pH is a little bit low, but her PC O2 is not too elevated, her bicarbonate is in the normal range on her blood gas. I am going to put her on BiPAP and try to get her PCO2 down a little bit more to see if this will help. (2) Acute exacerbation of chronic obstructive airways disease with asthma Is this a current diagnosis for this admission?: Yes Plan: Improving with therapy, continue current treatment. So far has responded well without the need for steroids. (3) Chronic kidney disease, stage IV (severe) Is this a current diagnosis for this admission?: Yes Plan: We stopped IV fluids yesterday and gave her some Lasix because she was starting to look fluid overloaded, her creatinine is actually been better today. (4) Morbid obesity with BMI of 45.0-49.9, adult Is this a current diagnosis for this admission?: Yes Plan: Strongly encouraged lifestyle modification (5) Pleural effusion Is this a current diagnosis for this admission?: Yes Plan: Resolved (6) Anemia, chronic disease Is this a current diagnosis for this admission?: Yes Plan: Due to her chronic kidney disease. She got 1 unit of packed red blood cells. Hopefully this will help her whenever she ambulates. (7) Nausea Is this a current diagnosis for this admission?: Yes Plan: I am not sure as to the etiology of this. Her abdominal exam is benign. She had an acute abdominal series recently that was negative. All of her lab work is either normal or improving. She has been on Zofran and Phenergan, because of her diabetes we will try some Reglan to see if this will help with her gut motility and therefore her nausea. - Plan Summary Summary: Patient is admitted to the medical floor where she will receive routine supportive and symptomatic cares. Her acute dyspnea and congestive heart failure will be treated with morphine sulfate 2 mg IV q1h as needed for dyspnea and nitroglycerin ointment will be applied 1 g every 6 hours. She will be placed on BiPAP as required to support her oxygen saturation at greater than 93%. Her acute on chronic kidney injury will be treated with IV fluids utilizing lactated Ringer's and a nephrology consultation will be obtained. Her left lower lobe infiltrate appears to be persistent from her previous hospitalization and therefore will be treated with intravenous cefepime and Levaquin. Additionally she will be treated with an aggressive pulmonary toilet utilizing Xopenex, Atrovent, Mucomyst and Pulmicort delivered via nebulizer. She will be continued on her usual home medications for her numerous chronic medical problems as appropriate. She will be continued on a diabetic, renal and cardiac diet. Retail Branch Manager consultation will be obtained for her multiple medical problems and guidance in weight loss. - Time Time Spent with patient: 25-34 minutes
[2019-01-23] MEDS: METOCLOPRAMIDE HCL INJ/PF 10 MG/2 ML SDV IV SCH (20:05)
[2019-01-23] MEDS: LEVALBUTEROL HCL NEB 0.63 MG/3 ML AMPUL NEB PRN (20:19)
[2019-01-23] MEDS ORDERED: CEFEPIME 1 GM/D5W RTU 1 GM/50 ML RTUPB IV SCH (22:00)
[2019-01-23] MEDS ORDERED: CEFEPIME 2 GM/D5W RTU 2 GM/50 ML RTUPB IV SCH (22:00)
[2019-01-24] MEDS: LEVALBUTEROL HCL NEB 1.25 MG/3 ML AMPUL NEB SCH ×3 (00:10→16:15)
[2019-01-24] MEDS: IPRATROPIUM BROMIDE 0.02% NEB 0.5 MG/2.5 ML AMPUL NEB SCH ×3 (00:10→16:15)
[2019-01-24] MEDS: NITROGLYCERIN 2% OINTMENT 1 GM PACKET TP SCH ×4 (00:12→17:23)
[2019-01-24] MEDS: HYDRALAZINE HCL INJ/PF 20 MG/1 ML SDV IV PRN ×7 (00:20→18:50)
[2019-01-24] MEDS: GUAIFENESIN 600 MG TABLET.SA PO SCH ×3 (00:24→21:01)
[2019-01-24] MEDS: METOCLOPRAMIDE HCL INJ/PF 10 MG/2 ML SDV IV SCH ×4 (00:31→17:25)
[2019-01-24] MEDS: PANTOPRAZOLE SODIUM 40 MG TABLET.DR PO SCH ×2 (05:31→16:47)
[2019-01-24] MEDS: INSULIN REG, HUMAN 100 UNIT/ML 3 ML VIAL (PYX) SUBCUT SCH ×3 (07:43→16:26)
[2019-01-24] MEDS: ACETYLCYSTEINE 20% SOLN 800 MG/4 ML VIAL.NEB NEB SCH (07:50)
[2019-01-24] MEDS: BUDESONIDE NEB 0.5 MG/2 ML AMPUL NEB SCH ×2 (07:50→20:51)
[2019-01-24] MEDS: AMLODIPINE BESYLATE 5 MG TABLET PO SCH ×2 (09:42→09:48)
[2019-01-24] MEDS: CARVEDILOL 12.5 MG TABLET PO SCH ×3 (09:42→21:00)
[2019-01-24] MEDS: LISINOPRIL 10 MG TABLET PO SCH ×2 (09:42→09:48)
[2019-01-24] MEDS: FERROUS SULFATE 325 MG TABLET PO SCH (09:48)
[2019-01-24] MEDS: POLYETHYLENE GLYCOL 3350 POWDER 17 GM/1 PACKET PO SCH (09:48)
[2019-01-24] MEDS ORDERED: HYDRALAZINE HCL INJ/PF 20 MG/1 ML SDV IV ONE (11:00)
[2019-01-24] MEDS ORDERED: NORMAL SALINE 1000 ML 1,000 ML IV PRN (11:17)
[2019-01-24] MEDS ORDERED: TRAMADOL HCL 50 MG TABLET PO SCH (12:00)
[2019-01-24] MEDS: GABAPENTIN 300 MG CAPSULE PO SCH ×2 (12:09→21:01)
[2019-01-24 12:13] LABS: ABSOLUTE BASOPHILS # (AUTO) 0.1 10^3/uL (0.0-0.2); ABSOLUTE LYMPHOCYTES (AUTO) 0.6 10^3/uL (0.5-4.7); ABSOLUTE MONOCYTES (AUTO) 0.5 10^3/uL (0.1-1.4); ABSOLUTE NEUT (AUTO) 5.1 10^3/uL (1.7-8.2); EOSINOPHILS % (AUTO) 0.3 % (0-6); HEMATOCRIT 32.3 % (36.0-47.0); LYMPHOCYTES % (AUTO) 9.5 % (13-45); MEAN CORPUSCULAR HEMOGLOBIN 31.6 pg (27.0-33.4); MEAN CORPUSCULAR HGB CONC 33.9 g/dL (32.0-36.0); MEAN CORPUSCULAR VOLUME 93 fl (80-97); PLATELET COUNT 252 10^3/uL (150-450); RED BLOOD COUNT 3.47 10^6/uL (3.72-5.28); RED CELL DISTRIBUTION WIDTH 16.3 % (11.5-14.0); SEGMENTED NEUTROPHILS % (AUTO) 81.2 % (42-78); TOTAL CELLS COUNTED % (AUTO) 100 %; WHITE BLOOD COUNT 6.3 10^3/uL (4.0-10.5)
--- NOTE | 2019-01-24 12:29 | PDOC PROGRESS REPORT ---
Subjective Progress Note for:: 01/24/19 Reason For Visit: FINA HERNÁNDEZ is a 63 year old female with history of congestive heart failure, hypertension sleep apnea chronic kidney disease stage IV with base creatin ine of around 2.5- 3.5 , diabetes mellitus type 2, and hypertension who presented to the emergency room last night because of breath. She is been admitted to the diagnosis of left pneumonia and COPD exacerbation. Initially she was on BiPAP which has not been discontinued. Admission labs showed a BUN of 48, and creatinine of 4.08 with EGFR of 11. Was started on IV antibiotics initially with IV Zithromax and ceftriaxone which now was changed to IV cefepime and now off all antibiotics. Patient is currently not talking much other than the occasional couple of words. She does not answer to any pointed questions of symptoms. Therefore I discussed her issues with the treating nurse who said that she is also been experiencing the same. However she does take her medications. English catheter is draining good amounts of urine. She had about 2000+ since yesterday.Today's labs are pending.Review of her labs have shown that her creatinine is trending down as of yesterday as it was 3.4 from admission of 4.0. Physical Exam Vital Signs: Temp Pulse Resp BP Pulse Ox 98 F 95 23 H 172/68 H 97 01/24/19 08:00 01/24/19 08:00 01/24/19 08:00 01/24/19 08:00 01/24/19 08:00 Pulse Oximeter Continuous Start: 01/17/19 23:46 Freq: RTQ4 Status: Active Protocol: Document 01/24/19 07:51 [facility] [place] (Rec: 01/24/19 08:33 [facility] [place] [id number]) Additional RT Notes Other pt removed from NIV and placed on cannula and masked neb Pulse Oximetry Assessment Oxygen Saturation (92-100) 97 Oxygen Flow Rate (L/min) 2 Oxygen Delivery Method Nasal Cannula Fraction of Inspired Oxygen (FIO2) 28 Equipment Usage Equipment in Use Continuous SpO2 Machine # N 4 Intake & Output 01/23/19 01/24/19 01/25/19 06:59 06:59 06:59 Intake Total 1109 100 Output Total 2550 2200 1025 Balance -8306 -8478 -8941 Weight 134.6 kg 130 kg General appearance: PRESENT: no acute distress - However she does not answer to your questions but occasionally says couple of words. Eye exam: PRESENT: EOMI, PERRLA Neck exam: ABSENT: lymphadenopathy, meningismus, tenderness, thyromegaly, tracheal deviation Respiratory exam: PRESENT: clear to auscultation vadim, decreased breath sounds. ABSENT: crackles Cardiovascular exam: PRESENT: +S1, +S2 GI/Abdominal exam: PRESENT: normal bowel sounds, soft. ABSENT: organomegaly, tenderness Extremities exam: ABSENT: pedal edema Neurological exam: PRESENT: awake. ABSENT: oriented to person, oriented to place Psychiatric exam: ABSENT: appropriate affect Focused psych exam: PRESENT: catatonic Skin exam: PRESENT: dry. ABSENT: cyanosis, erythema, mottled, rash Results Laboratory Results: 01/24/19 11:58 01/24/19 11:58 WBC 6.3 RBC 3.47 L Hgb 11.0 L Hct 32.3 L MCV 93 MCH 31.6 MCHC 33.9 RDW 16.3 H Plt Count 252 Seg Neutrophils % 81.2 H 01/20/19 10:15 Thoracic Fluid Gram Stain - Final 01/20/19 10:15 Thoracic Fluid Body Fluid Culture - Final NO AEROBIC OR ANAEROBIC ORGANISMS RECOVERED 01/17/19 01/17/19 01/21/19 16:26 16:26 06:06 Creatine Kinase 130 96 CK-MB (CK-2) 3.44 Troponin I 0.015 NT-Pro-B Natriuret Pep 7400 H 01/21/19 01/21/19 01/21/19 06:06 12:46 12:46 Creatine Kinase 102 CK-MB (CK-2) 1.89 2.14 Troponin I 0.018 < 0.012 NT-Pro-B Natriuret Pep 01/22/19 01/22/19 02:43 02:43 Creatine Kinase 121 CK-MB (CK-2) 2.52 Troponin I 0.017 NT-Pro-B Natriuret Pep Impressions: Chest X-Ray 01/20/19 00:00 IMPRESSION: Left lower lobe consolidation atelectasis versus pneumonia Minimal right apical airspace disease versus nodule No pneumothorax on 2 hour post thoracentesis film Thoracentesis Ultrasound 01/20/19 00:00 IMPRESSION: SUCCESSFUL LEFT THORACENTESIS USING ULTRASOUND GUIDANCE. Acute Abdomen Series 01/21/19 00:00 IMPRESSION: 1. Unchanged radiographic appearance of the chest with cardiomegaly, indistinctness of the pulmonary vasculature, and a density in the left retrocardiac space that could represent a combination of pleural fluid, atelectasis and/or pneumonia. 2. Nonobstructive bowel gas pattern. Head CT 01/23/19 00:00 IMPRESSION: NORMAL BRAIN CT WITHOUT CONTRAST. EVIDENCE OF ACUTE STROKE: NO. Assessment & Plan - Diagnosis (1) Acute kidney injury superimposed on chronic kidney disease Is this a current diagnosis for this admission?: Yes Plan: Admission creatinine was 4 as compared to baseline of 2.5-3.5. Current creatinine is now dropped to 3.4 which is encouraging. She is making good amounts of urine and is nonoliguric. Patient clinically dry. Patient was initially diagnosed to have possible persistent left lower lobe pneumonia but her antibiotics have now been discontinued. I am going to start on IV fluids. (2) Acute exacerbation of chronic obstructive airways disease with asthma Is this a current diagnosis for this admission?: Yes Plan: Apparent acute infective exacerbation of COPD with possibility of left lower lobe pneumonia. Initially treated with nebulizers and antibiotics. As per hospitalist. (3) Left lower lobe consolidation Is this a current diagnosis for this admission?: Yes Plan: Initially was put on antibiotics and now discontinued. As per hospitalist. (4) Chronic kidney disease, stage IV (severe) Is this a current diagnosis for this admission?: Yes Plan: Baseline renal functions stage IV with creatinine from 2.5-3.5. See the response to IV fluids now. (5) Diabetes mellitus type 2 in obese Is this a current diagnosis for this admission?: Yes Plan: As per hospitalist. (6) HTN (hypertension) Qualifiers: Hypertension type: essential hypertension Qualified Code(s): I10 - Esse ntial (primary) hypertension Is this a current diagnosis for this admission?: Yes Plan: Uncontrolled.Monitor (7) Aphasia Plan: Patient does not answer questions when asked. She however mutters couple of words which not in response to questions. Noted that she had a CT scan last night which was unremarkable for any acute ischemic events. She may need MRI at some point if she does not improve.As per hospitalist.
[2019-01-24 12:42] LABS: ALBUMIN 3.3 g/dL (3.5-5.0); ALKALINE PHOSPHATASE 76 U/L (38-126); ANION GAP 12 (5-19); ASPARTATE AMINO TRANSFERASE 18 U/L (14-36); BILIRUBIN,DIRECT 0.3 mg/dL (0.0-0.4); BILIRUBIN,TOTAL 0.6 mg/dL (0.2-1.3); BLOOD UREA NITROGEN 47 mg/dL (7-20); CALCIUM 9.4 mg/dL (8.4-10.2); CARBON DIOXIDE 20 mmol/L (22-30); CHLORIDE 112 mmol/L (98-107); CREATINE KINASE 59 U/L (30-135); GLUCOSE 132 mg/dL (75-110); PHOSPHORUS 4.5 mg/dL (2.5-4.5); POTASSIUM 4.1 mmol/L (3.6-5.0); TOTAL PROTEIN 6.2 g/dL (6.3-8.2)
[2019-01-24 12:53] LABS: CREATINE KINASE MB 2.83 ng/mL (<4.55); TROPONIN I 0.018 ng/mL
--- NOTE | 2019-01-24 14:59 | RADIOLOGY REPORT (SQ) ---
EXAM DESCRIPTION: CT ABD/PELVIS NO ORAL OR IV COMPLETED DATE/TIME: 01/24/2019 2:35 pm REASON FOR STUDY: nausea, abdominal pain, encephalopathy COMPARISON: 10/01/2018. TECHNIQUE: CT scan of the abdomen and pelvis performed without intravenous or oral contrast. Images reviewed with lung, soft tissue, and bone windows. Reconstructed coronal and sagittal MPR images revi ewed. All images stored on PACS. All CT scanners at this facility use dose modulation, iterative reconstruction, and/or weight based d osing when appropriate to reduce radiation dose to as low as reasonably achievable (ALARA). [facility]: Dose Right [facility]: CareDose [facility]: Dose Right [facility]: Teradose 4D [facility]: [employer] Technologies RADIATION DOSE: CT Rad equipment meets quality standard of care and radiation dose reduction techniq ues were employed. CTDIvol: 31.7 - 38.6 mGy. DLP: 4371 mGy-cm.mGy. LIMITATIONS: None. FINDINGS: LOWER CHEST: Cardiomegaly. Pericardial effusion. Bilateral pleural effusions with left l ower lobe consolidation. NON-CONTRASTED LIVER, SPLEEN, ADRENALS: Evaluation limited by lack of IV contrast. No identified sign ificant masses. PANCREAS: No masses. No peripancreatic inflammatory changes. GALLBLADDER: Surgically absent. RIGHT KIDNEY AND URETER: 2.6 cm exophytic cortical mass. Average Hounsfield units 7.7, consistent wi th fluid. Assessment limited by lack of IV contrast. No significant calcifications. No hydronephr osis or hydroureter. LEFT KIDNEY AND URETER: No suspicious masses. Assessment limited by lack of IV contrast. No signifi cant calcifications. No hydronephrosis or hydroureter. AORTA AND RETROPERITONEUM: No aneurysm. No retroperitoneal masses or adenopathy. BOWEL AND PERITONEAL CAVITY: No obvious masses or inflammatory changes. No free fluid. APPENDIX: Normal. PELVIS, BLADDER, AND ABDOMINAL WALL:No abnormal masses. No free fluid. Catheter in the bladder. BONES: No significant findings. OTHER: Diffuse edema in the subcutaneous fatty tissues of the body. IMPRESSION: 1. CARDIOMEGALY. PERICARDIAL EFFUSION. BILATERAL PLEURAL EFFUSIONS WITH LEFT LOWER LOBE CONSOLIDATI ON SECONDARY TO COMPRESSIVE ATELECTASIS VERSUS PNEUMONIA. 2. DIFFUSE EDEMA IN THE SUBCUTANEOUS FATTY TISSUES OF THE BODY. 3. CORTICAL CYST IN THE RIGHT KIDNEY. 4. NO OTHER SIGNIFICANT FINDINGS IN THE ABDOMEN OR PELVIS. COMMENT: Quality ID # [id number]: Final reports with documentation of one or more dose reduction techniques (e.g., Automated exposure control, adjustment of the mA and/or kV according to patient size, use of iterative reconstruction technique) TECHNICAL DOCUMENTATION: JOB ID: [id number] [employer]- All Rights Reserved Reading location - IP/workstation name: [email or web address]
[2019-01-24 16:16] LABS: ARTERIAL BLOOD BASE EXCESS -5.2 mmol/L; ARTERIAL BLOOD H2CO3 1.17 mmol/L (1.05-1.35); ARTERIAL BLOOD HCO3 20.2 mmol/L (20-24); ARTERIAL BLOOD PCO2 38.8 mmHg (35-45); ARTERIAL BLOOD PH 7.33 (7.35-7.45); ARTERIAL BLOOD PO2 78.7 mmHg (80-100); ARTERIAL BLOOD TOTAL CO2 21.4 mmol/L (21-25)
[2019-01-24 16:17] LABS: ARTERIAL BLOOD FIO2 28%
[2019-01-24] MEDS ORDERED: FUROSEMIDE INJ/PF 40 MG/4 ML SDV IV ONE (18:00)
[2019-01-24] MEDS: NITROGLYCERIN/D5W 50 MG/250 ML RTUINJ IV PRN ×2 (20:13→20:17)
--- NOTE | 2019-01-24 20:41 | PDOC PROGRESS REPORT ---
Subjective Progress Note for:: 01/24/19 Subjective:: No adverse events overnight. Blood pressure remains elevated because she has not been taking any of her oral medications. Apparently she takes some of them intermittently but this is not consistent so her blood pressure control is not consistent. She has not really been eating anything. She is mostly been laying there and she will nod her head if you ask her if she is nauseated but she will not really answer any other questions. A broad work-up today was negative for any sort of metabolic cause for her acute condition. Head CT yesterday was negative. An abdominal CT today just showed that she was volume overloaded. Nephrology ordered IV fluids to be started but I discontinued them because of her volume overload. Reason For Visit: LEFT LOWER LOBE PNEUMONIA,ACUTE RESPIRATORY FAILUR Physical Exam Vital Signs: Temp Pulse Resp BP Pulse Ox 97.9 F 107 H 21 H 189/73 H 95 01/24/19 12:00 01/24/19 12:00 01/24/19 12:00 01/24/19 18:51 01/24/19 12:00 Pulse Oximeter Continuous Start: 01/17/19 23:46 Freq: RTQ4 Status: Active Protocol: Document 01/24/19 16:00 [facility] (Rec: 01/24/19 16:16 [email or web address] [id number]) Pulse Oximetry Assessment Equipment Usage Equipment Standby Continuous SpO2 Machine # 4 Intake & Output 01/23/19 01/24/19 01/25/19 06:59 06:59 06:59 Intake Total 1109 100 0 Output Total 2550 2199 2024 [facility] -1440 Weight 134.6 kg 130 kg General appearance: PRESENT: Mild distress, cooperative, disheveled, morbidly obese Respiratory exam: PRESENT: decreased breath sounds, symmetrical, unlabored. ABSENT: accessory muscle use, chest wall tenderness, crackles, prolonged expiratory phase, rhonchi, tachypnea, wheezes Cardiovascular exam: PRESENT: RRR, +S1, +S2 Pulses: PRESENT: normal carotid pulses Vascular exam: PRESENT: normal capillary refill GI/Abdominal exam: PRESENT: normal bowel sounds, soft. ABSENT: distended, guarding, rebound, tenderness Extremities exam: ABSENT: clubbing, pedal edema Musculoskeletal exam: PRESENT: normal inspection. ABSENT: deformity Neurological exam: PRESENT: Drowsy but arousable, oriented to person Psychiatric exam: PRESENT: flat affect Skin exam: PRESENT: dry, warm Results Laboratory Results: 01/24/19 11:58 01/24/19 11:58 01/24/19 01/24/19 01/24/19 11:58 11:58 11:58 WBC 6.3 RBC 3.47 L Hgb 11.0 L Hct 32.3 L MCV 93 MCH 31.6 MCHC 33.9 RDW 16.3 H Plt Count 252 Seg Neutrophils % 81.2 H Carbonic Acid HCO3/H2CO3 Ratio ABG pH ABG pCO2 ABG pO2 ABG HCO3 ABG O2 Saturation ABG Base Excess FiO2 Sodium 144.1 Potassium 4.1 Chloride 112 H Carbon Dioxide 20 L Anion Gap 12 BUN 47 H Creatinine 3.34 H Est GFR ( Amer) 17 L Glucose 132 H Calcium 9.4 Phosphorus 4.5 Magnesium 1.6 Total Bilirubin 0.6 AST 18 Alkaline Phosphatase 76 Ammonia < 8.7 L Total Protein 6.2 L Albumin 3.3 L 01/24/19 16:04 WBC RBC Hgb Hct MCV MCH MCHC RDW Plt Count Seg Neutrophils % Carbonic Acid 1.17 HCO3/H2CO3 Ratio 17:1 ABG pH 7.33 L ABG pCO2 38.8 ABG pO2 78.7 L ABG HCO3 20.2 ABG O2 Saturation 95.0 ABG Base Excess -5.2 FiO2 28% Sodium Potassium Chloride Carbon Dioxide Anion Gap BUN Creatinine Est GFR ( Amer) Glucose Calcium Phosphorus Magnesium Total Bilirubin AST Alkaline Phosphatase Ammonia Total Protein Albumin 01/20/19 10:15 Thoracic Fluid Gram Stain - Final 01/20/19 10:15 Thoracic Fluid Body Fluid Culture - Final NO AEROBIC OR ANAEROBIC ORGANISMS RECOVERED 01/17/19 01/17/19 01/21/19 16:26 16:26 06:06 Creatine Kinase 130 96 CK-MB (CK-2) 3.44 Troponin I 0.015 NT-Pro-B Natriuret Pep 7400 H 01/21/19 01/21/19 01/21/19 06:06 12:46 12:46 Creatine Kinase 102 CK-MB (CK-2) 1.89 2.14 Troponin I 0.018 < 0.012 NT-Pro-B Natriuret Pep 01/22/19 01/22/19 01/24/19 02:43 02:43 11:58 Creatine Kinase 121 59 CK-MB (CK-2) 2.52 Troponin I 0.017 NT-Pro-B Natriuret Pep 01/24/19 11:58 Creatine Kinase CK-MB (CK-2) 2.83 Troponin I 0.018 NT-Pro-B Natriuret Pep Impressions: Chest X-Ray 01/20/19 00:00 IMPRESSION: Left lower lobe consolidation atelectasis versus pneumonia Minimal right apical airspace disease versus nodule No pneumothorax on 2 hour post thoracentesis film Thoracentesis Ultrasound 01/20/19 00:00 IMPRESSION: SUCCESSFUL LEFT THORACENTESIS USING ULTRASOUND GUIDANCE. Acute Abdomen Series 01/21/19 00:00 IMPRESSION: 1. Unchanged radiographic appearance of the chest with cardiomegaly, indistinctness of the pulmonary vasculature, and a density in the left retrocardiac space that could represent a combination of pleural fluid, atelectasis and/or pneumonia. 2. Nonobstructive bowel gas pattern. Head CT 01/23/19 00:00 IMPRESSION: NORMAL BRAIN CT WITHOUT CONTRAST. EVIDENCE OF ACUTE STROKE: NO. Abdomen/Pelvis CT 01/24/19 00:00 IMPRESSION: 1. CARDIOMEGALY. PERICARDIAL EFFUSION. BILATERAL PLEURAL EFFUSIONS WITH LEFT LOWER LOBE CONSOLIDATION SECONDARY TO COMPRESSIVE ATELECTASIS VERSUS PNEUMONIA. 2. DIFFUSE EDEMA IN THE SUBCUTANEOUS FATTY TISSUES OF THE BODY. 3. CORTICAL CYST IN THE RIGHT KIDNEY. 4. NO OTHER SIGNIFICANT FINDINGS IN THE ABDOMEN OR PELVIS. Assessment and Plan - Diagnosis (1) Acute respiratory failure with hypoxia and hypercapnia Is this a current diagnosis for this admission?: Yes Plan: Stable on her usual 2 L nasal cannula. She uses BiPAP at night while she sleeps. Her blood gas is unremarkable. Possibly a very mild metabolic acidosis but her pH was 7.34. (2) Acute exacerbation of chronic obstructive airways disease with asthma Is this a current diagnosis for this admission?: Yes Plan: Improved with therapy, continue as needed bronchodilators. So far has responded well without the need for steroids. (3) Chronic kidney disease, stage IV (severe) Is this a current diagnosis for this admission?: Yes Plan: We took her off fluid yesterday and gave her some Lasix, and her creatinine actually improved. Her baseline creatinine is somewhere in the mid 2's. It was around 3.2 today. We are not able to hydrate her anymore because she is so volume overloaded. We will give her Lasix and monitor her creatinine. Her electrolytes are unremarkable. (4) Morbid obesity with BMI of 45.0-49.9, adult Is this a current diagnosis for this admission?: Yes Plan: Strongly encouraged lifestyle modification (5) Pleural effusion Is this a current diagnosis for this admission?: Yes Plan: She got it drained off initially about 600 mL's. Some of that has reaccumulated due to her volume overload. She also has a small pericardial effusion. We have stopped fluids and are diuresing her. (6) Anemia, chronic disease Is this a current diagnosis for this admission?: Yes Plan: Due to her chronic kidney disease. She got 1 unit of packed red blood cells. Hemoglobin has remained stable. (7) Nausea Is this a current diagnosis for this admission?: Yes Plan: I have done an extremely extensive work-up over the past few days to determine an etiology. I thought perhaps it was gastroparesis, because she had an EGD a couple of months ago and got a Botox injection near her gastric outlet. I started her on some scheduled Reglan. She was not responding to other antiemetics. A broad metabolic work-up has been very unremarkable. Head CT was unremarkable. Abdominal CT was unremarkable except for some pleural effusions, small pericardial effusion, and diffuse anasarca. We are diuresing her. She was not like this a few days ago and I cannot identify what has caused her to be so nauseated and encephalopathic. (8) Hypertensive urgency Is this a current diagnosis for this admission?: Yes Plan: We have been unable to get her blood pressure control with PRN medications, so I moved her to [facility] and put her on a nitroglycerin drip. - Plan Summary Summary: Patient is admitted to the medical floor where she will receive routine supportive and symptomatic cares. Her acute dyspnea and congestive heart failure will be treated with morphine sulfate 2 mg IV q1h as needed for dyspnea and nitroglycerin ointment will be applied 1 g every 6 hours. She will be placed on BiPAP as required to support her oxygen saturation at greater than 93%. Her acute on chronic kidney injury will be treated with IV fluids utilizing lactated Ringer's and a nephrology consultation will be obtained. Her left lower lobe infiltrate appears to be persistent from her previous hospitalization and therefore will be treated with intravenous cefepime and Levaquin. Additionally she will be treated with an aggressive pulmonary toilet utilizing Xopenex, Atrovent, Mucomyst and Pulmicort delivered via nebulizer. She will be continued on her usual home medications for her numerous chronic medical problems as appropriate. She will be continued on a diabetic, renal and cardiac diet. [employer] Director consultation will be obtained for her multiple medical problems and guidance in weight loss. - Time Time Spent with patient: 35 or more minutes
[2019-01-25] MEDS: IPRATROPIUM BROMIDE 0.02% NEB 0.5 MG/2.5 ML AMPUL NEB SCH ×4 (00:20→23:59)
[2019-01-25] MEDS: LEVALBUTEROL HCL NEB 1.25 MG/3 ML AMPUL NEB SCH ×4 (00:20→23:59)
[2019-01-25] MEDS: INSULIN REG, HUMAN 100 UNIT/ML 3 ML VIAL (PYX) SUBCUT SCH ×5 (00:21→21:40)
[2019-01-25] MEDS: NITROGLYCERIN 2% OINTMENT 1 GM PACKET TP SCH ×2 (00:25→05:38)
[2019-01-25] MEDS: METOCLOPRAMIDE HCL INJ/PF 10 MG/2 ML SDV IV SCH ×4 (00:26→17:25)
[2019-01-25] MEDS ORDERED: MORPHINE SULFATE 10 MG/ML INJ IV ONE (01:00)
[2019-01-25] MEDS: HEPARIN SOD (PORCINE) 5,000 UNIT/ML 1 ML VIAL SUBCUT SCH ×3 (05:37→21:08)
[2019-01-25] MEDS: FUROSEMIDE INJ/PF 40 MG/4 ML SDV IV SCH ×2 (05:37→17:25)
[2019-01-25] MEDS: PANTOPRAZOLE SODIUM 40 MG TABLET.DR PO SCH ×2 (05:38→17:18)
[2019-01-25] MEDS: BUDESONIDE NEB 0.5 MG/2 ML AMPUL NEB SCH ×2 (08:34→20:31)
[2019-01-25 09:48] LABS: ANION GAP 12 (5-19); BLOOD UREA NITROGEN 46 mg/dL (7-20); CALCIUM 9.1 mg/dL (8.4-10.2); CARBON DIOXIDE 21 mmol/L (22-30); CHLORIDE 110 mmol/L (98-107); GLUCOSE 141 mg/dL (75-110); POTASSIUM 4.1 mmol/L (3.6-5.0)
[2019-01-25 10:01] LABS: APPEARANCE,URINE CLEAR; BILIRUBIN,URINE NEGATIVE (NEGATIVE); COLOR,URINE STRAW; GLUCOSE, URINE 150 mg/dL (NEGATIVE); KETONES,URINE TRACE mg/dL (NEGATIVE); PROTEIN,URINE >=500 mg/dL (NEGATIVE); UROBILINOGEN,URINE NEGATIVE mg/dL (<2.0)
[2019-01-25] MEDS: NITROGLYCERIN/D5W 50 MG/250 ML RTUINJ IV PRN (10:15)
[2019-01-25 10:26] LABS: UR PRO/CREAT RATIO RESULT 12.2 mg/mg (0.0-0.2)
[2019-01-25] MEDS: FERROUS SULFATE 325 MG TABLET PO SCH (13:13)
[2019-01-25] MEDS: CARVEDILOL 12.5 MG TABLET PO SCH ×2 (13:13→21:02)
[2019-01-25] MEDS: ESCITALOPRAM OXALATE 10 MG TABLET PO SCH (13:14)
[2019-01-25] MEDS: GUAIFENESIN 600 MG TABLET.SA PO SCH ×2 (13:14→21:02)
[2019-01-25] MEDS: POLYETHYLENE GLYCOL 3350 POWDER 17 GM/1 PACKET PO SCH (13:14)
[2019-01-25] MEDS: AMLODIPINE BESYLATE 5 MG TABLET PO SCH (13:15)
[2019-01-25] MEDS: GABAPENTIN 300 MG CAPSULE PO SCH ×2 (13:15→21:03)
[2019-01-25] MEDS: LISINOPRIL 10 MG TABLET PO SCH (13:16)
--- NOTE | 2019-01-25 13:45 | PDOC PROGRESS REPORT ---
Subjective Progress Note for:: 01/25/19 Reason For Visit: LEFT LOWER LOBE PNEUMONIA,ACUTE RESPIRATORY FAILUR 01/25/2019 Patient was admitted for what appears to be CHF well as encephalopathy Physical Exam Vital Signs: Temp Pulse Resp BP Pulse Ox 98.3 F 101 H 16 159/69 H 90 L 01/25/19 11:27 01/25/19 11:27 01/25/19 11:27 01/25/19 11:27 01/25/19 11:27 Pulse Oximeter Continuous Start: 01/17/19 23:46 Freq: RTQ4 Status: Active Protocol: Document 01/25/19 12:00 [facility] (Rec: 01/25/19 12:44 [facility] [id number]) Pulse Oximetry Assessment Equipment Usage Equipment Standby Continuous SpO2 Machine # 4 Intake & Output 01/24/19 01/25/19 01/26/19 06:59 06:59 06:59 Intake Total 100 4 240 Output Total 2200 2800 Balance -2100 -2796 240 Weight 130 kg 127.4 kg General appearance: PRESENT: mild distress, other - Patient will not answer questions, patient is lying in the bed with most of her body exposed. Patient makes eye contact but does not appear to register or understand what one is saying. Patient does not follow commands Respiratory exam: PRESENT: clear to auscultation vadim. ABSENT: rales, rhonchi, wheezes Cardiovascular exam: PRESENT: RRR. ABSENT: diastolic murmur, rubs, systolic murmur Neurological exam: PRESENT: altered Psychiatric exam: PRESENT: other - Catatonic Results Laboratory Results: 01/24/19 11:58 01/25/19 08:53 01/24/19 01/25/19 01/25/19 16:04 08:53 09:08 Carbonic Acid 1.17 HCO3/H2CO3 Ratio 17:1 ABG pH 7.33 L ABG pCO2 38.8 ABG pO2 78.7 L ABG HCO3 20.2 ABG O2 Saturation 95.0 ABG Base Excess -5.2 FiO2 28% Sodium 142.7 Potassium 4.1 Chloride 110 H Carbon Dioxide 21 L Anion Gap 12 BUN 46 H Creatinine 3.41 H Est GFR ( Amer) 16 L Glucose 141 H Calcium 9.1 Urine Color STRAW Urine Appearance CLEAR Urine pH 5.0 Ur Specific [place] 1.010 Urine Protein >=500 H Urine Glucose (UA) 150 H Urine Ketones TRACE H Urine Blood SMALL H Urine RBC (Auto) 1 01/20/19 10:15 Thoracic Fluid Gram Stain - Final 01/20/19 10:15 Thoracic Fluid Body Fluid Culture - Final NO AEROBIC OR ANAEROBIC ORGANISMS RECOVERED 01/17/19 01/17/19 01/21/19 16:26 16:26 06:06 Creatine Kinase 130 96 CK-MB (CK-2) 3.44 Troponin I 0.015 NT-Pro-B Natriuret Pep 7400 H 01/21/19 01/21/19 01/21/19 06:06 12:46 12:46 Creatine Kinase 102 CK-MB (CK-2) 1.89 2.14 Troponin I 0.018 < 0.012 NT-Pro-B Natriuret Pep 01/22/19 01/22/19 01/24/19 02:43 02:43 11:58 Creatine Kinase 121 59 CK-MB (CK-2) 2.52 Troponin I 0.017 NT-Pro-B Natriuret Pep 01/24/19 11:58 Creatine Kinase CK-MB (CK-2) 2.83 Troponin I 0.018 NT-Pro-B Natriuret Pep Impressions: Chest X-Ray 01/20/19 00:00 IMPRESSION: Left lower lobe consolidation atelectasis versus pneumonia Minimal right apical airspace disease versus nodule No pneumothorax on 2 hour post thoracentesis film Thoracentesis Ultrasound 01/20/19 00:00 IMPRESSION: SUCCESSFUL LEFT THORACENTESIS USING ULTRASOUND GUIDANCE. Acute Abdomen Series 01/21/19 00:00 IMPRESSION: 1. Unchanged radiographic appearance of the chest with cardiomegaly, indistinctness of the pulmonary vasculature, and a density in the left retrocardiac space that could represent a combination of pleural fluid, atelectasis and/or pneumonia. 2. Nonobstructive bowel gas pattern. Head CT 01/23/19 00:00 IMPRESSION: NORMAL BRAIN CT WITHOUT CONTRAST. EVIDENCE OF ACUTE STROKE: NO. Abdomen/Pelvis CT 01/24/19 00:00 IMPRESSION: 1. CARDIOMEGALY. PERICARDIAL EFFUSION. BILATERAL PLEURAL EFFUSIONS WITH LEFT LOWER LOBE CONSOLIDATION SECONDARY TO COMPRESSIVE ATELECTASIS VERSUS PNEUMONIA. 2. DIFFUSE EDEMA IN THE SUBCUTANEOUS FATTY TISSUES OF THE BODY. 3. CORTICAL CYST IN THE RIGHT KIDNEY. 4. NO OTHER SIGNIFICANT FINDINGS IN THE ABDOMEN OR PELVIS. Assessment and Plan - Diagnosis (1) Aphasia Is this a current diagnosis for this admission?: Yes (2) Respiratory failure Qualifiers: Chronicity: acute on chronic Respiratory failure complication: hypercapnia Qualified Code(s): J96.22 - Acute and chronic respiratory failure with hypercapnia Is this a current diagnosis for this admission?: Yes (3) Acute respiratory failure with hypoxia and hypercapnia Is this a current diagnosis for this admission?: Yes (4) Anemia, chronic disease Is this a current diagnosis for this admission?: Yes (5) CKD (chronic kidney disease) Qualifiers: Chronic kidney disease stage: stage 4 (severe) Qualified Code(s): N18.4 - Chronic kidney disease, stage 4 (severe) Is this a current diagnosis for this admission?: Yes (6) Hypertension Is this a current diagnosis for this admission?: Yes (7) Morbid obesity with BMI of 45.0-49.9, adult Is this a current diagnosis for this admission?: Yes - Plan Summary Summary: Patient is admitted to the medical floor where she will receive routine supportive and symptomatic cares. Her acute dyspnea and congestive heart f ailure will be treated with morphine sulfate 2 mg IV q1h as needed for dyspnea and nitroglycerin ointment will be applied 1 g every 6 hours. She will be placed on BiPAP as required to support her oxygen saturation at greater than 93%. Her acute on chronic kidney injury will be treated with IV fluids utilizing lactated Ringer's and a nephrology consultation will be obtained. Her left lower lobe infiltrate appears to be persistent from her previous hospitalization and therefore will be treated with intravenous cefepime and Levaquin. Additionally she will be treated with an aggressive pulmonary toilet utilizing Xopenex, Atrovent, Mucomyst and Pulmicort delivered via nebulizer. She will be continued on her usual home medications for her numerous chronic medical problems as appropriate. She will be continued on a diabetic, renal and cardiac diet. Chief Investment Officer consultation will be obtained for her multiple medical problems and guidance in weight loss. 01/25/2019 Came in this morning her pupils were pinpoint and she was basically awake but not following commands, no speech at all Patient did receive a dose of morphine last night but this was discontinued today Patient still appears to be encephalopathic CBC is normal glucose around 1 30-1 60 ammonia levels normal O2 sats only 90% on room air, aithough patient is now on 3 L nasal cannula this is a change from yesterday when she was in the upper 90s. Patient does use oxygen at home White count is normal H&H is come up to 11 and 32, whereas on admission she was 7 and 21 On admission her BUN was 48 today is 46, on admission her creatinine was 4.08 today it is 3.41 Glucose levels are running about 140 Patient currently on no IV antibiotics Analysis from today shows negative nitrates and negative leukocytes CT scan shows no acute infarcts this was done 2 days ago I am going to repeat it tomorrow since patient is not a good candidate for an MRI of the brain, patient has not had a elevated temperature since she is been here - Time Time Spent with patient: 35 or more minutes
[2019-01-26] MEDS: NITROGLYCERIN/D5W 50 MG/250 ML RTUINJ IV PRN ×2 (00:12→18:26)
[2019-01-26] MEDS: METOCLOPRAMIDE HCL INJ/PF 10 MG/2 ML SDV IV SCH ×2 (00:13→06:00)
[2019-01-26] MEDS: PANTOPRAZOLE SODIUM 40 MG TABLET.DR PO SCH ×2 (05:58→18:23)
[2019-01-26] MEDS: FUROSEMIDE INJ/PF 40 MG/4 ML SDV IV SCH (06:00)
[2019-01-26] MEDS: HEPARIN SOD (PORCINE) 5,000 UNIT/ML 1 ML VIAL SUBCUT SCH ×3 (06:00→22:35)
[2019-01-26] MEDS: HYDRALAZINE HCL INJ/PF 20 MG/1 ML SDV IV PRN ×2 (07:11→18:51)
[2019-01-26 07:45] LABS: ANION GAP 11 (5-19); BLOOD UREA NITROGEN 51 mg/dL (7-20); CALCIUM 8.8 mg/dL (8.4-10.2); CARBON DIOXIDE 23 mmol/L (22-30); CHLORIDE 111 mmol/L (98-107); GLUCOSE 127 mg/dL (75-110); POTASSIUM 3.7 mmol/L (3.6-5.0)
[2019-01-26] MEDS: INSULIN REG, HUMAN 100 UNIT/ML 3 ML VIAL (PYX) SUBCUT SCH ×4 (07:53→22:06)
[2019-01-26] MEDS: IPRATROPIUM BROMIDE 0.02% NEB 0.5 MG/2.5 ML AMPUL NEB SCH ×2 (08:34→16:57)
[2019-01-26] MEDS: BUDESONIDE NEB 0.5 MG/2 ML AMPUL NEB SCH ×2 (08:34→21:19)
[2019-01-26] MEDS: LEVALBUTEROL HCL NEB 1.25 MG/3 ML AMPUL NEB SCH ×2 (08:34→16:57)
[2019-01-26] MEDS: NITROGLYCERIN 2% OINTMENT 1 GM PACKET TP SCH (08:40)
[2019-01-26] MEDS: POLYETHYLENE GLYCOL 3350 POWDER 17 GM/1 PACKET PO SCH (09:06)
[2019-01-26] MEDS: LISINOPRIL 10 MG TABLET PO SCH (09:06)
[2019-01-26] MEDS: ONDANSETRON HCL INJ/PF 4 MG/2 ML SDV IV PRN ×2 (09:06→13:10)
[2019-01-26] MEDS: ESCITALOPRAM OXALATE 10 MG TABLET PO SCH (09:06)
[2019-01-26] MEDS: CARVEDILOL 12.5 MG TABLET PO SCH ×2 (09:07→22:34)
[2019-01-26] MEDS: GUAIFENESIN 600 MG TABLET.SA PO SCH ×2 (09:07→22:34)
[2019-01-26] MEDS: FERROUS SULFATE 325 MG TABLET PO SCH (09:07)
[2019-01-26] MEDS: GABAPENTIN 300 MG CAPSULE PO SCH ×2 (09:07→22:33)
[2019-01-26] MEDS: AMLODIPINE BESYLATE 5 MG TABLET PO SCH (10:16)
--- NOTE | 2019-01-26 11:11 | PDOC PROGRESS REPORT ---
Subjective Progress Note for:: 01/26/19 Reason For Visit: LEFT LOWER LOBE PNEUMONIA,ACUTE RESPIRATORY FAILUR 01/26/2019 Pneumonia, respiratory failure, encephalopathy Physical Exam Vital Signs: Temp Pulse Resp BP Pulse Ox 97.7 F 84 16 132/58 H 94 01/26/19 07:22 01/26/19 10:00 01/26/19 08:34 01/26/19 10:00 01/26/19 08:34 Pulse Oximeter Continuous Start: 01/17/19 23:46 Freq: RTQ4 Status: Active Protocol: Document 01/26/19 08:34 [facility] (Rec: 01/26/19 10:11 [facility] [id number]) Pulse Oximetry Assessment Equipment Usage Equipment Standby Continuous SpO2 Machine # N4 Intake & Output 01/25/19 01/26/19 01/27/19 06:59 06:59 06:59 Intake Total 4 490 Output Total 2800 1175 Balance -2796 -685 Weight 127.4 kg 126.9 kg General appearance: PRESENT: mild distress, other - Patient states she does not feel well but nonspecific Respiratory exam: PRESENT: decreased breath sounds, other - Due to obesity and body positioning in the bed Cardiovascular exam: PRESENT: RRR. ABSENT: diastolic murmur, rubs, systolic murmur Neurological exam: PRESENT: altered Psychiatric exam: PRESENT: depressed, flat affect Results Laboratory Results: 01/24/19 11:58 01/26/19 06:24 01/25/19 01/26/19 14:37 06:24 Sodium 144.8 Potassium 3.7 Chloride 111 H Carbon Dioxide 23 Anion Gap 11 BUN 51 H Creatinine 3.45 H Est GFR ( Amer) 16 L Glucose 127 H Lactic Acid 0.5 L Calcium 8.8 01/17/19 01/17/19 01/21/19 16:26 16:26 06:06 Creatine Kinase 130 96 CK-MB (CK-2) 3.44 Troponin I 0.015 NT-Pro-B Natriuret Pep 7400 H 01/21/19 01/21/19 01/21/19 06:06 12:46 12:46 Creatine Kinase 102 CK-MB (CK-2) 1.89 2.14 Troponin I 0.018 < 0.012 NT-Pro-B Natriuret Pep 01/22/19 01/22/19 01/24/19 02:43 02:43 11:58 Creatine Kinase 121 59 CK-MB (CK-2) 2.52 Troponin I 0.017 NT-Pro-B Natriuret Pep 01/24/19 11:58 Creatine Kinase CK-MB (CK-2) 2.83 Troponin I 0.018 NT-Pro-B Natriuret Pep Impressions: Chest X-Ray 01/20/19 00:00 IMPRESSION: Left lower lobe consolidation atelectasis versus pneumonia Minimal right apical airspace disease versus nodule No pneumothorax on 2 hour post thoracentesis film Thoracentesis Ultrasound 01/20/19 00:00 IMPRESSION: SUCCESSFUL LEFT THORACENTESIS USING ULTRASOUND GUIDANCE. Acute Abdomen Series 01/21/19 00:00 IMPRESSION: 1. Unchanged radiographic appearance of the chest with cardiomegaly, indistinctness of the pulmonary vasculature, and a density in the left retrocardiac space that could represent a combination of pleural fluid, atelectasis and/or pneumonia. 2. Nonobstructive bowel gas pattern. Abdomen/Pelvis CT 01/24/19 00:00 IMPRESSION: 1. CARDIOMEGALY. PERICARDIAL EFFUSION. BILATERAL PLEURAL EFFUSIONS WITH LEFT LOWER LOBE CONSOLIDATION SECONDARY TO COMPRESSIVE ATELECTASIS VERSUS PNEUMONIA. 2. DIFFUSE EDEMA IN THE SUBCUTANEOUS FATTY TISSUES OF THE BODY. 3. CORTICAL CYST IN THE RIGHT KIDNEY. 4. NO OTHER SIGNIFICANT FINDINGS IN THE ABDOMEN OR PELVIS. Assessment and Plan - Diagnosis (1) Aphasia Is this a current diagnosis for this admission?: Yes (2) Respiratory failure Qualifiers: Chronicity: acute on chronic Respiratory failure complication: hypercapnia Qualified Code(s): J96.22 - Acute and chronic respiratory failure with hypercapnia Is this a current diagnosis for this admission?: Yes (3) Acute respiratory failure with hypoxia and hypercapnia Is this a current diagnosis for this admission?: Yes (4) Anemia, chronic disease Is this a current diagnosis for this admission?: Yes (5) CKD (chronic kidney disease) Qualifiers: Chronic kidney disease stage: stage 4 (severe) Qualified Code(s): N18.4 - Chronic kidney disease, stage 4 (severe) Is this a current diagnosis for this admission?: Yes (6) Hypertension Is this a current diagnosis for this admission?: Yes (7) Morbid obesity with BMI of 45.0-49.9, adult Is this a current diagnosis for this admission?: Yes - Plan Summary Summary: Patient is admitted to the medical floor where she will receive routine s upportive and symptomatic cares. Her acute dyspnea and congestive heart failure will be treated with morphine sulfate 2 mg IV q1h as needed for dyspnea and nitroglycerin ointment will be applied 1 g every 6 hours. She will be placed on BiPAP as required to support her oxygen saturation at greater than 93%. Her acute on chronic kidney injury will be treated with IV fluids utilizing lactated Ringer's and a nephrology consultation will be obtained. Her left lower lobe infiltrate appears to be persistent from her previous hospitalization and therefore will be treated with intravenous cefepime and Levaquin. Additionally she will be treated with an aggressive pulmonary toilet utilizing Xopenex, Atrovent, Mucomyst and Pulmicort delivered via nebulizer. She will be continued on her usual home medications for her numerous chronic medical problems as appropriate. She will be continued on a diabetic, renal and cardiac diet. Coal Conveyor Operator consultation will be obtained for her multiple medical problems and guidance in weight loss. 01/25/2019 Came in this morning her pupils were pinpoint and she was basically awake but not following commands, no speech at all Patient did receive a dose of morphine last night, this was discontinued today Patient still appears to be encephalopathic CBC is normal ,glucose around 1 30-1 60 ,ammonia levels normal O2 sats only 90% on room air, aithough patient is now on 3 L nasal cannula this is a change from yesterday when she was in the upper 90s. Patient does use oxygen at home White count is normal , H&H is come up to 11 and 32, whereas on admission she was 7 and 21 On admission her BUN was 48 today is 46, on admission her creatinine was 4.08 to day it is 3.41 Glucose levels are running about 140 Patient currently on no IV antibiotics Urinalysis from today shows negative nitrates and negative leukocytes CT scan shows no acute infarcts this was done 2 days ago I am going to repeat it tomorrow since patient is not a good candidate for an MRI of the brain, patient has not had a elevated temperature since she is been here 01/26/[address] scan from this morning is pending looking for new infarcts Pressures are slightly high approximately 164/75 appears to be her normal range, O2 sat is 94% on 2 L nasal cannula, no fever, no white count She has not been on the p.o. Levaquin for 72 hours and not on the IV cefepime for about 96 hours. Cannot find a reason why these were discontinued. Going to get a portable chest x-ray on her today and then probably resume antibiotics. Will be looking at her pleural effusion status to see if she needs another thoracentesis She was diagnosed with pneumonia on admission however last chest x-ray was 6 days ago. - Time Time Spent with patient: 25-34 minutes
--- NOTE | 2019-01-26 11:40 | RADIOLOGY REPORT (SQ) ---
EXAM DESCRIPTION: CT HEAD WITHOUT COMPLETED DATE/TIME: 01/26/2019 10:41 am REASON FOR STUDY: syncope, encephalopathy COMPARISON: CT of the head without contrast from 01/23/2019. TECHNIQUE: Axial images acquired through the brain without intravenous contrast. Images reviewed wi th bone, brain and subdural windows. Additional sagittal and coronal reconstructions were generated. Images stored on PACS. All CT scanners at this facility use dose modulation, iterative reconstruction, and/or weight based d osing when appropriate to reduce radiation dose to as low as reasonably achievable (ALARA). [facility]: Dose Right [facility]: CareDose [facility]: Dose Right [facility]: Teradose 4D [facility]: [employer] RADIATION DOSE: CT Rad equipment meets quality standard of care and radiation dose reduction techniq ues were employed. CTDIvol: 48.7 mGy. DLP: 1028 mGy-cm. mGy. LIMITATIONS: None. FINDINGS: There is no acute intracranial hemorrhage, vascular territorial infarct, extra-axial fluid collection, mass effect or midline shift. There is no effacement of cerebral sulci or basal subarac hnoid cisterns. The rachel-white matter differentiation is preserved. The caliber the ventricles is u nchanged from the prior CTs. There is no calvarial fracture. The orbits are intact. There is partial opacification of the ethmoi d air cells. IMPRESSION: No acute intracranial abnormality. EVIDENCE OF ACUTE STROKE: NO. COMMENT: Quality ID # [id number]: Final reports with documentation of one or more dose reduction techniques (e.g., Automated exposure control, adjustment of the mA and/or kV according to patient size, use of iterative reconstruction technique) TECHNICAL DOCUMENTATION: JOB ID: [id number] [employer]- All Rights Reserved Reading location - IP/workstation name: [facility]
--- NOTE | 2019-01-26 11:52 | PDOC PROGRESS REPORT ---
Subjective Progress Note for:: 01/26/19 Reason For Visit: Patient seen this morning. She is lethargic but awake and more responsive to questions quite appropriately and it is surprising given the fact that she was not doing anything of that sort for the last couple of days. She is complaining of nausea and generalized abdominal pains. She says she had a bowel movement yesterday. No complaints of any fever or chills. No history of any coughing spells. She is got a English catheter and is making decent amounts of urine. Labs and medications were reviewed.Discussions were done with her treating nurse Vickey. Physical Exam Vital Signs: Temp Pulse Resp BP Pulse Ox 97.7 F 85 16 141/59 H 94 01/26/19 07:22 01/26/19 11:00 01/26/19 08:34 01/26/19 11:00 01/26/19 08:34 Pulse Oximeter Continuous Start: 01/17/19 23:46 Freq: RTQ4 Status: Active Protocol: Document 01/26/19 08:34 [facility] (Rec: 01/26/19 10:11 [facility] [email or web address]) Pulse Oximetry Assessment Equipment Usage Equipment Standby Continuous SpO2 Machine # N4 Intake & Output 01/25/19 01/26/19 01/27/19 06:59 06:59 06:59 Intake Total 4 490 Output Total 2800 1175 Balance -3486 -225 Weight 127.4 kg 126.9 kg General appearance: PRESENT: no acute distress Respiratory exam: PRESENT: clear to auscultation vadim, decreased breath sounds. ABSENT: crackles Cardiovascular exam: PRESENT: +S1, +S2 GI/Abdominal exam: PRESENT: normal bowel sounds, soft. ABSENT: distended, firm, guarding, organomegaly, rebound, tenderness Extremities exam: ABSENT: pedal edema Neurological exam: PRESENT: alert, altered, awake, oriented to person, oriented to place Psychiatric exam: PRESENT: depressed Focused psych exam: PRESENT: catatonic Skin exam: ABSENT: cyanosis, erythema, mottled, rash Results Laboratory Results: 01/24/19 11:58 01/26/19 06:24 01/25/19 01/26/19 14:37 06:24 Sodium 144.8 Potassium 3.7 Chloride 111 H Carbon Dioxide 23 Anion Gap 11 BUN 51 H Creatinine 3.45 H Est GFR ( Amer) 16 L Glucose 127 H Lactic Acid 0.5 L Calcium 8.8 01/17/19 01/17/19 01/21/19 16:26 16:26 06:06 Creatine Kinase 130 96 CK-MB (CK-2) 3.44 Troponin I 0.015 NT-Pro-B Natriuret Pep 7400 H 01/21/19 01/21/19 01/21/19 06:06 12:46 12:46 Creatine Kinase 102 CK-MB (CK-2) 1.89 2.14 Troponin I 0.018 < 0.012 NT-Pro-B Natriuret Pep 01/22/19 01/22/19 01/24/19 02:43 02:43 11:58 Creatine Kinase 121 59 CK-MB (CK-2) 2.52 Troponin I 0.017 NT-Pro-B Natriuret Pep 01/24/19 11:58 Creatine Kinase CK-MB (CK-2) 2.83 Troponin I 0.018 NT-Pro-B Natriuret Pep Impressions: Thoracentesis Ultrasound 01/20/19 00:00 IMPRESSION: SUCCESSFUL LEFT THORACENTESIS USING ULTRASOUND GUIDANCE. Acute Abdomen Series 01/21/19 00:00 IMPRESSION: 1. Unchanged radiographic appearance of the chest with cardiomegaly, indistinctness of the pulmonary vasculature, and a density in the left retrocardiac space that could represent a combination of pleural fluid, atelectasis and/or pneumonia. 2. Nonobstructive bowel gas pattern. Abdomen/Pelvis CT 01/24/19 00:00 IMPRESSION: 1. CARDIOMEGALY. PERICARDIAL EFFUSION. BILATERAL PLEURAL EFFUSIONS WITH LEFT LOWER LOBE CONSOLIDATION SECONDARY TO COMPRESSIVE ATELECTASIS VERSUS PNEUMONIA. 2. DIFFUSE EDEMA IN THE SUBCUTANEOUS FATTY TISSUES OF THE BODY. 3. CORTICAL CYST IN THE RIGHT KIDNEY. 4. NO OTHER SIGNIFICANT FINDINGS IN THE ABDOMEN OR PELVIS. Head CT 01/26/19 08:00 IMPRESSION: No acute intracranial abnormality. EVIDENCE OF ACUTE STROKE: NO. Assessment & Plan - Diagnosis (1) Acute kidney injury superimposed on chronic kidney disease Is this a current diagnosis for this admission?: Yes Plan: Admission creatinine was 4 as compared to baseline of 2.5-3.5. Current creatinine is now dropped to 3.4 and remaining stable. She is making good amounts of urine and is nonoliguric. CT scan has shown that she had subcutaneous edema and she was begun on IV Lasix hospitalist.This is explained by her nephrotic syndrome with a protein to creatinine ratio 15. Continue on IV Lasix but I would consider the checking her labs and seeing if she is getting intravascularly volume depleted. (2) Acute exacerbation of chronic obstructive airways disease with asthma Is this a current diagnosis for this admission?: Yes Plan: Apparent acute infective exacerbation of COPD with possibility of left lower lobe pneumonia. Initially treated with nebulizers and antibiotics. As per hospitalist. (3) Left lower lobe consolidation Is this a current diagnosis for this admission?: Yes Plan: Initially was put on antibiotics and now discontinued. As per hospitalist. (4) Chronic kidney disease, stage IV (severe) Is this a current diagnosis for this admission?: Yes Plan: Baseline renal functions stage IV with creatinine from 2.5-3.5. Current creatinine 3.4 and remaining stable and nonoliguric. Continue present treatments. (5) Diabetes mellitus type 2 in obese Is this a current diagnosis for this admission?: Yes Plan: As per hospitalist. (6) HTN (hypertension) Qualifiers: Hypertension type: essential hypertension Qualified Code(s): I10 - Essential (primary) hypertension Is this a current diagnosis for this admission?: Yes Plan: Apparently been severe and uncontrolled and was begun on IV nitroglycerin and now being down titrated. (7) Aphasia Is this a current diagnosis for this admission?: Yes Plan: Markedly improved. Repeat CT scan was done this morning to follow-up on earlier one done 2 days ago. Signs of any focal deficits of the moment. However she is got generalized pathology and poor response to questions indicative of encephalopathy.
--- NOTE | 2019-01-26 12:04 | RADIOLOGY REPORT (SQ) ---
EXAM DESCRIPTION: CHEST SINGLE VIEW COMPLETED DATE/TIME: 01/26/2019 11:42 am REASON FOR STUDY: Evaluate Lung Infiltrates for antibiotic therapy COMPARISON: CT chest 09/01/2018 Chest films 12/26/2018, 01/17/2019, 01/20/2019 Thoracentesis 01/20/2019 left chest EXAM PARAMETERS: NUMBER OF VIEWS: One view. TECHNIQUE: Single frontal radiographic view of the chest acquired. RADIATION DOSE: NA LIMITATIONS: Obese patient, portable technique FINDINGS: LUNGS AND PLEURA: Diffuse pulmonary vascular congestion is present. Air bronchograms in the right and left retrocardiac region atelectasis versus pneumonia. This is mor e prominent than on 01/20/2019. Question trace right pleural effusion. No pneumothorax MEDIASTINUM AND HILAR STRUCTURES: No masses. Contour normal. HEART AND VASCULAR STRUCTURES: Stable massive cardiomegaly BONES: No acute findings. HARDWARE: None in the chest. OTHER: No other significant finding. IMPRESSION: Pulmonary vascular congestion. Trace right pleural effusion Bibasilar consolidation atelectasis versus pneumonia Massive cardiomegaly TECHNICAL DOCUMENTATION: JOB ID: [id number] [employer]- All Rights Reserved Reading location - IP/workstation name: [facility]
[2019-01-26] MEDS: BUMETANIDE INJ/PF 1 MG/4 ML SDV IV SCH (18:23)
[2019-01-26] MEDS ORDERED: TRAMADOL HCL 50 MG TABLET PO PRN (23:30)
[2019-01-27] MEDS: IPRATROPIUM BROMIDE 0.02% NEB 0.5 MG/2.5 ML AMPUL NEB SCH ×3 (00:29→17:02)
[2019-01-27] MEDS: LEVALBUTEROL HCL NEB 1.25 MG/3 ML AMPUL NEB SCH ×3 (00:29→17:02)
[2019-01-27] MEDS: HEPARIN SOD (PORCINE) 5,000 UNIT/ML 1 ML VIAL SUBCUT SCH ×3 (05:07→21:38)
[2019-01-27] MEDS: PANTOPRAZOLE SODIUM 40 MG TABLET.DR PO SCH ×2 (05:07→17:14)
[2019-01-27] MEDS: HYDRALAZINE HCL INJ/PF 20 MG/1 ML SDV IV PRN (05:07)
[2019-01-27] MEDS: ONDANSETRON HCL INJ/PF 4 MG/2 ML SDV IV PRN (05:07)
[2019-01-27 05:52] LABS: ANION GAP 6 (5-19); BLOOD UREA NITROGEN 56 mg/dL (7-20); CALCIUM 8.3 mg/dL (8.4-10.2); CARBON DIOXIDE 26 mmol/L (22-30); CHLORIDE 111 mmol/L (98-107); GLUCOSE 107 mg/dL (75-110); POTASSIUM 3.5 mmol/L (3.6-5.0)
[2019-01-27] MEDS: INSULIN REG, HUMAN 100 UNIT/ML 3 ML VIAL (PYX) SUBCUT SCH ×4 (07:52→21:39)
[2019-01-27] MEDS: BUDESONIDE NEB 0.5 MG/2 ML AMPUL NEB SCH ×2 (08:22→20:17)
[2019-01-27] MEDS: POLYETHYLENE GLYCOL 3350 POWDER 17 GM/1 PACKET PO SCH (09:24)
[2019-01-27] MEDS: ESCITALOPRAM OXALATE 10 MG TABLET PO SCH (09:24)
[2019-01-27] MEDS: BUMETANIDE INJ/PF 1 MG/4 ML SDV IV SCH ×2 (09:24→17:14)
[2019-01-27] MEDS: CARVEDILOL 12.5 MG TABLET PO SCH ×2 (09:25→21:38)
[2019-01-27] MEDS: GUAIFENESIN 600 MG TABLET.SA PO SCH ×2 (09:25→21:38)
[2019-01-27] MEDS: LISINOPRIL 10 MG TABLET PO SCH (09:25)
[2019-01-27] MEDS: GABAPENTIN 300 MG CAPSULE PO SCH ×2 (09:25→21:37)
--- NOTE | 2019-01-27 10:48 | PDOC PROGRESS REPORT ---
Subjective Progress Note for:: 01/27/19 Reason For Visit: LEFT LOWER LOBE PNEUMONIA,ACUTE RESPIRATORY FAILUR 01/27/2019 Patient's primary level now remains poor renal function which is chronic, well as encephalopathy, does not appear to be based on any acute neurologic disease. Also probable CHF Physical Exam Vital Signs: Temp Pulse Resp BP Pulse Ox 97.7 F 102 H 17 157/70 H 94 01/27/19 07:24 01/27/19 10:00 01/27/19 07:24 01/27/19 10:00 01/27/19 07:24 Pulse Oximeter Continuous Start: 01/17/19 23:46 Freq: RTQ4 Status: Active Protocol: Document 01/27/19 00:29 [facility] (Rec: 01/27/19 00:33 DBE [email or web address]) Additional RT Notes Other pt states she does not want her RX at this time or need her bipap. pt resting on 4L/NC with NAD. However, emesis bag is at bedside. Pulse Oximetry Assessment Oxygen Saturation (92-100) 98 Oxygen Flow Rate (L/min) 4 Oxygen Delivery Method Nasal Cannula Fraction of Inspired Oxygen (FIO2) 36 Equipment Usage Equipment Standby Continuous SpO2 Machine # 4 Intake & Output 01/26/19 01/27/19 01/28/19 06:59 06:59 06:59 Intake Total 490 389 Output Total 1175 1175 Balance -685 -786 Weight 126.9 kg 127.2 kg General appearance: PRESENT: no acute distress, other - Much more alert this morning talking in complete sentences Noticeably more awake Respiratory exam: PRESENT: crackles Cardiovascular exam: PRESENT: RRR. ABSENT: diastolic murmur, rubs, systolic murmur Neurological exam: PRESENT: alert, awake, oriented to person, oriented to place, oriented to time, oriented to situation, CN II-XII grossly intact. ABSENT: motor sensory deficit Psychiatric exam: PRESENT: appropriate affect, normal mood, other - Affect appropriate this morning. ABSENT: homicidal ideation, suicidal ideation Results Laboratory Results: 01/24/19 11:58 01/27/19 04:58 01/27/19 04:58 Sodium 142.9 Potassium 3.5 L Chloride 111 H Carbon Dioxide 26 Anion Gap 6 BUN 56 H Creatinine 3.57 H Est GFR ( Amer) 16 L Glucose 107 Calcium 8.3 L 01/17/19 01/17/19 01/21/19 16:26 16:26 06:06 Creatine Kinase 130 96 CK-MB (CK-2) 3.44 Troponin I 0.015 NT-Pro-B Natriuret Pep 7400 H 01/21/19 01/21/19 01/21/19 06:06 12:46 12:46 Creatine Kinase 102 CK-MB (CK-2) 1.89 2.14 Troponin I 0.018 < 0.012 NT-Pro-B Natriuret Pep 01/22/19 01/22/19 01/24/19 02:43 02:43 11:58 Creatine Kinase 121 59 CK-MB (CK-2) 2.52 Troponin I 0.017 NT-Pro-B Natriuret Pep 01/24/19 01/26/19 11:58 06:24 Creatine Kinase CK-MB (CK-2) 2.83 Troponin I 0.018 NT-Pro-B Natriuret Pep 98196 H Impressions: Thoracentesis Ultrasound 01/20/19 00:00 IMPRESSION: SUCCESSFUL LEFT THORACENTESIS USING ULTRASOUND GUIDANCE. Acute Abdomen Series 01/21/19 00:00 IMPRESSION: 1. Unchanged radiographic appearance of the chest with cardiomegaly, indistinctness of the pulmonary vasculature, and a density in the left retrocardiac space that could represent a combination of pleural fluid, atelectasis and/or pneumonia. 2. Nonobstructive bowel gas pattern. Abdomen/Pelvis CT 01/24/19 00:00 IMPRESSION: 1. CARDIOMEGALY. PERICARDIAL EFFUSION. BILATERAL PLEURAL EFFUSIONS WITH LEFT LOWER LOBE CONSOLIDATION SECONDARY TO COMPRESSIVE ATELECTASIS VERSUS PNEUMONIA. 2. DIFFUSE EDEMA IN THE SUBCUTANEOUS FATTY TISSUES OF THE BODY. 3. CORTICAL CYST IN THE RIGHT KIDNEY. 4. NO OTHER SIGNIFICANT FINDINGS IN THE ABDOMEN OR PELVIS. Head CT 01/26/19 08:00 IMPRESSION: No acute intracranial abnormality. EVIDENCE OF ACUTE STROKE: NO. Chest X-Ray 01/26/19 11:11 IMPRESSION: Pulmonary vascular congestion. Trace right pleural effusion Bibasilar consolidation atelectasis versus pneumonia Massive cardiomegaly Assessment and Plan - Diagnosis (1) Aphasia Is this a current diagnosis for this admission?: Yes (2) Respiratory failure Qualifiers: Chronicity: acute on chronic Respiratory failure complication: hypercapnia Qualified Code(s): J96.22 - Acute and chronic respiratory failure with hypercapnia Is this a current diagnosis for this admission?: Yes (3) Acute respiratory failure with hypoxia and hypercapnia Is this a current diagnosis for this admission?: Yes (4) Anemia, chronic disease Is this a current diagnosis for this admission?: Yes (5) CKD (chronic kidney disease) Qualifiers: Chronic kidney disease stage: stage 4 (severe) Qualified Code(s): N18.4 - Chronic kidney disease, stage 4 (severe) Is this a current diagnosis for this admission?: Yes (6) Hypertension Is this a current diagnosis for this admission?: Yes (7) Morbid obesity with BMI of 45.0-49.9, adult Is this a current diagnosis for this admission?: Yes - Plan Summary Summary: Patient is admitted to the medical floor where she will receive routine supportive and symptomatic cares. Her acute dyspnea and congestive heart failure will be treated with morphine sulfate 2 mg IV q1h as needed for dyspnea and nitroglycerin ointment will be applied 1 g every 6 hours. She will be placed on BiPAP as required to support her oxygen saturation at greater than 93%. Her acute on chronic kidney injury will be treated with IV fluids utilizing lactated Ringer's and a nephrology consultation will be obtained. Her left lower lobe infiltrate appears to be persistent from her previous hospitalization and therefore will be treated with intravenous cefepime and Levaquin. Additionally she will be treated with an aggressive pulmonary toilet utilizing Xopenex, Atrovent, Mucomyst and Pulmicort delivered via nebulizer. Monique wall will be continued on her usual home medications for her numerous chronic medical problems as appropriate. She will be continued on a diabetic, renal and cardiac diet. Insulation Board Back Tender consultation will be obtained for her multiple medical problems and guidance in weight loss. 01/25/2019 Came in this morning her pupils were pinpoint and she was basically awake but not following commands, no speech at all Patient did receive a dose of morphine last night, this was discontinued today Patient still appears to be encephalopathic CBC is normal ,glucose around 1 30-1 60 ,ammonia levels normal O2 sats only 90% on room air, aithough patient is now on 3 L nasal cannula this is a change from yesterday when she was in the upper 90s. Patient does use oxygen at home White count is normal , H&H is come up to 11 and 32, whereas on admission she was 7 and 21 On admission her BUN was 48 today is 46, on admission her creatinine was 4.08 today it is 3.41 Glucose levels are running about 140 Patient currently on no IV antibiotics Urinalysis from today shows negative nitrates and negative leukocytes CT scan shows no acute infarcts this was done 2 days ago I am going to repeat it tomorrow since patient is not a good candidate for an MRI of the brain, patient has not had a elevated temperature since she is been here 01/26/[address] scan from this morning is pending looking for new infarcts Pressures are slightly high approximately 164/75 appears to be her normal range, O2 sat is 94% on 2 L nasal cannula, no fever, no white count She has not been on the p.o. Levaquin for 72 hours and not on the IV cefepime for about 96 hours. Cannot find a reason why these were discontinued. Going to get a portable chest x-ray on her today and then probably resume antibiotics. Will be looking at her pleural effusion status to see if she needs another thoracentesis She was diagnosed with pneumonia on admission however last chest x-ray was 6 days ago. 01/27/2019 Afebrile, heart rate up slightly this morning 102 but normal heart rate is around 90 Pressure appears stable around 150/70, O2 saturation between 94 and 98% on either 2 or 4 L of oxygen. Will place in order to go no higher than 3 L from here on out as she may be retaining CO2 White count is still normal. Per nephrology note her creatinine is still probably elevated at 3.57 with her baseline being seen 2.5-3.5 Patient was placed on Bumex yesterday for her pulmonary vascular congestion as seen on chest x-ray Patient currently on no antibiotics. I am going to re-consult discharge planning. At does not appear to me that patient would be able to be managed at home and will need placement - Time Time Spent with patient: 25-34 minutes
[2019-01-27] MEDS ORDERED: 1/2 NORMAL SALINE 1,000 ML IV PRN (12:23)
--- NOTE | 2019-01-27 12:28 | PDOC PROGRESS REPORT ---
Subjective Progress Note for:: 01/27/19 Reason For Visit: Seen today. More awake and alert and responsive. Denies any chest pains, dyspnea . However she is always in bed and has no meaningful exertion. says she is constipated. Eating well. labs and meds were reviewed . Discussed with hospitalist and SUZY Hurd. Physical Exam Vital Signs: Temp Pulse Resp BP Pulse Ox 97.7 F 78 18 156/77 H 97 01/27/19 07:24 01/27/19 12:00 01/27/19 08:22 01/27/19 12:00 01/27/19 08:22 Pulse Oximeter Continuous Start: 01/17/19 23:46 Freq: RTQ4 Status: Active Protocol: Document 01/27/19 08:22 [facility] (Rec: 01/27/19 11:26 [facility] [email or web address]) Pulse Oximetry Assessment Equipment Usage Equipment Standby Continuous SpO2 Machine # 4 Intake & Output 01/26/19 01/27/19 01/28/19 06:59 06:59 06:59 Intake Total 490 389 Output Total 1175 1175 Balance -685 -786 Weight 126.9 kg 127.2 kg General appearance: PRESENT: no acute distress Mouth exam: PRESENT: neck supple. ABSENT: moist Respiratory exam: PRESENT: clear to auscultation vadim, decreased breath sounds. ABSENT: crackles Cardiovascular exam: PRESENT: +S1, +S2 GI/Abdominal exam: PRESENT: normal bowel sounds, soft. ABSENT: distended, firm, guarding, organomegaly, rebound, tenderness Extremities exam: ABSENT: pedal edema Neurological exam: PRESENT: alert, awake, oriented to person, oriented to place Psychiatric exam: PRESENT: appropriate affect Skin exam: PRESENT: dry. ABSENT: erythema, mottled, rash Results Laboratory Results: 01/24/19 11:58 01/27/19 04:58 01/27/19 04:58 Sodium 142.9 Potassium 3.5 L Chloride 111 H Carbon Dioxide 26 Anion Gap 6 BUN 56 H Creatinine 3.57 H Est GFR ( Amer) 16 L Glucose 107 Calcium 8.3 L 01/17/19 01/17/19 01/21/19 16:26 16:26 06:06 Creatine Kinase 130 96 CK-MB (CK-2) 3.44 Troponin I 0.015 NT-Pro-B Natriuret Pep 7400 H 01/21/19 01/21/19 01/21/19 06:06 12:46 12:46 Creatine Kinase 102 CK-MB (CK-2) 1.89 2.14 Troponin I 0.018 < 0.012 NT-Pro-B Natriuret Pep 01/22/19 01/22/19 01/24/19 02:43 02:43 11:58 Creatine Kinase 121 59 CK-MB (CK-2) 2.52 Troponin I 0.017 NT-Pro-B Natriuret Pep 01/24/19 01/26/19 11:58 06:24 Creatine Kinase CK-MB (CK-2) 2.83 Troponin I 0.018 NT-Pro-B Natriuret Pep [id number] H Impressions: Thoracentesis Ultrasound 01/20/19 00:00 IMPRESSION: SUCCESSFUL LEFT THORACENTESIS USING ULTRASOUND GUIDANCE. Acute Abdomen Series 01/21/19 00:00 IMPRESSION: 1. Unchanged radiographic appearance of the chest with cardiomegaly, indistinctness of the pulmonary vasculature, and a density in the left retrocardiac space that could represent a combination of pleural fluid, atelectasis and/or pneumonia. 2. Nonobstructive bowel gas pattern. Abdomen/Pelvis CT 01/24/19 00:00 IMPRESSION: 1. CARDIOMEGALY. PERICARDIAL EFFUSION. BILATERAL PLEURAL EFFUSIONS WITH LEFT LOWER LOBE CONSOLIDATION SECONDARY TO COMPRESSIVE ATELECTASIS VERSUS PNEUMONIA. 2. DIFFUSE EDEMA IN THE SUBCUTANEOUS FATTY TISSUES OF THE BODY. 3. CORTICAL CYST IN THE RIGHT KIDNEY. 4. NO OTHER SIGNIFICANT FINDINGS IN THE ABDOMEN OR PELVIS. Head CT 01/26/19 08:00 IMPRESSION: No acute intracranial abnormality. EVIDENCE OF ACUTE STROKE: NO. Chest X-Ray 01/26/19 11:11 IMPRESSION: Pulmonary vascular congestion. Trace right pleural effusion Bibasilar consolidation atelectasis versus pneumonia Massive cardiomegaly Assessment & Plan - Diagnosis (1) Acute kidney injury superimposed on chronic kidney disease Is this a current diagnosis for this admission?: Yes Plan: Admission creatinine was 4 as compared to baseline of 2.5-3.5. Current creatinine is now dropped to 3.5 and remaining stable. She is making good amount s of urine and is nonoliguric.Clinically she is getting dry and so will start her on low volume IVF. (2) Acute exacerbation of chronic obstructive airways disease with asthma Is this a current diagnosis for this admission?: Yes Plan: Apparent acute infective exacerbation of COPD with possibility of left lower lobe pneumonia. Initially treated with nebulizers and antibiotics. As per hospitalist. (3) Left lower lobe consolidation Is this a current diagnosis for this admission?: Yes Plan: Initially was put on antibiotics and now discontinued. As per hospitalist. (4) Chronic kidney disease, stage IV (severe) Is this a current diagnosis for this admission?: Yes Plan: Baseline renal functions stage IV with creatinine from 2.5-3.5. Current creatinine 3.5 and remaining stable and nonoliguric. Starting gentle hydration. (5) Diabetes mellitus type 2 in obese Is this a current diagnosis for this admission?: Yes Plan: As per hospitalist. (6) HTN (hypertension) Qualifiers: Hypertension type: essential hypertension Qualified Code(s): I10 - Essent ial (primary) hypertension Is this a current diagnosis for this admission?: Yes Plan: Apparently been severe and uncontrolled and was begun on IV nitroglycerin and now being down titrated.Start Po hydralazine 50 q 8. (7) Aphasia Is this a current diagnosis for this admission?: Yes Plan: Resolved.
[2019-01-27] MEDS: HYDRALAZINE HCL 50 MG TABLET PO SCH ×2 (13:33→21:37)
[2019-01-27] MEDS: NITROGLYCERIN/D5W 50 MG/250 ML RTUINJ IV PRN (20:37)
[2019-01-28] MEDS: LEVALBUTEROL HCL NEB 1.25 MG/3 ML AMPUL NEB SCH ×4 (00:43→23:56)
[2019-01-28] MEDS: IPRATROPIUM BROMIDE 0.02% NEB 0.5 MG/2.5 ML AMPUL NEB SCH ×4 (00:44→23:56)
[2019-01-28] MEDS: HYDRALAZINE HCL 50 MG TABLET PO SCH ×3 (05:16→21:08)
[2019-01-28] MEDS: HEPARIN SOD (PORCINE) 5,000 UNIT/ML 1 ML VIAL SUBCUT SCH ×3 (05:17→21:07)
[2019-01-28] MEDS: PANTOPRAZOLE SODIUM 40 MG TABLET.DR PO SCH ×2 (05:17→16:17)
[2019-01-28 07:06] LABS: ANION GAP 7 (5-19); BLOOD UREA NITROGEN 62 mg/dL (7-20); CALCIUM 8.2 mg/dL (8.4-10.2); CARBON DIOXIDE 26 mmol/L (22-30); CHLORIDE 108 mmol/L (98-107); GLUCOSE 111 mg/dL (75-110); POTASSIUM 3.6 mmol/L (3.6-5.0)
[2019-01-28] MEDS: INSULIN REG, HUMAN 100 UNIT/ML 3 ML VIAL (PYX) SUBCUT SCH ×4 (07:59→22:50)
[2019-01-28] MEDS: BUDESONIDE NEB 0.5 MG/2 ML AMPUL NEB SCH ×2 (08:30→20:48)
[2019-01-28] MEDS: LISINOPRIL 10 MG TABLET PO SCH (10:07)
[2019-01-28] MEDS: CARVEDILOL 12.5 MG TABLET PO SCH ×2 (10:07→21:08)
[2019-01-28] MEDS: ESCITALOPRAM OXALATE 10 MG TABLET PO SCH (10:08)
[2019-01-28] MEDS: BUMETANIDE INJ/PF 1 MG/4 ML SDV IV SCH ×2 (10:08→17:22)
[2019-01-28] MEDS: GABAPENTIN 300 MG CAPSULE PO SCH ×2 (10:08→21:07)
[2019-01-28] MEDS: GUAIFENESIN 600 MG TABLET.SA PO SCH ×2 (10:08→21:07)
[2019-01-28] MEDS: POLYETHYLENE GLYCOL 3350 POWDER 17 GM/1 PACKET PO SCH (10:08)
--- NOTE | 2019-01-28 10:14 | PDOC PROGRESS REPORT ---
Subjective Progress Note for:: 01/28/19 Reason For Visit: LEFT LOWER LOBE PNEUMONIA,ACUTE RESPIRATORY FAILUR 01/28/2019 Patient sitting up in bed reading the newspaper, appears to be in no distress Physical Exam Vital Signs: Temp Pulse Resp BP Pulse Ox 98.1 F 67 18 137/63 H 96 01/28/19 07:26 01/28/19 08:50 01/28/19 08:50 01/28/19 08:00 01/28/19 08:50 Pulse Oximeter Continuous Start: 01/17/19 23:46 Freq: RTQ4 Status: Active Protocol: Document 01/28/19 08:50 [facility] (Rec: 01/28/19 09:29 [facility] [email or web address]) Pulse Oximetry Assessment Oxygen Saturation (92-100) 96 Oxygen Flow Rate (L/min) 3 Oxygen Delivery Method Nasal Cannula Fraction of Inspired Oxygen (FIO2) 32 Equipment Usage Equipment in Use Continuous SpO2 Machine # N4 Intake & Output 01/27/19 01/28/19 01/29/19 06:59 06:59 06:59 Intake Total 389 687 Output Total 1175 800 Balance -786 -113 Weight 127.2 kg 129.2 kg General appearance: PRESENT: no acute distress Respiratory exam: PRESENT: wheezes - Mild Cardiovascular exam: PRESENT: RRR. ABSENT: diastolic murmur, rubs, systolic murmur Neurological exam: PRESENT: alert, awake, oriented to person, oriented to place, oriented to time, oriented to situation, CN II-XII grossly intact. ABSENT: motor sensory deficit Psychiatric exam: PRESENT: appropriate affect, normal mood. ABSENT: homicidal ideation, suicidal ideation Results Laboratory Results: 01/24/19 11:58 01/28/19 05:35 01/28/19 05:35 Sodium 140.8 Potassium 3.6 Chloride 108 H Carbon Dioxide 26 Anion Gap 7 BUN 62 H Creatinine 4.25 H Est GFR ( Amer) 13 L Glucose 111 H Calcium 8.2 L 01/17/19 01/17/19 01/21/19 16:26 16:26 06:06 Creatine Kinase 130 96 CK-MB (CK-2) 3.44 Troponin I 0.015 NT-Pro-B Natriuret Pep 7400 H 01/21/19 01/21/19 01/21/19 06:06 12:46 12:46 Creatine Kinase 102 CK-MB (CK-2) 1.89 2.14 Troponin I 0.018 < 0.012 NT-Pro-B Natriuret Pep 01/22/19 01/22/19 01/24/19 02:43 02:43 11:58 Creatine Kinase 121 59 CK-MB (CK-2) 2.52 Troponin I 0.017 NT-Pro-B Natriuret Pep 01/24/19 01/26/19 11:58 06:24 Creatine Kinase CK-MB (CK-2) 2.83 Troponin I 0.018 NT-Pro-B Natriuret Pep [id number] H Impressions: Thoracentesis Ultrasound 01/20/19 00:00 IMPRESSION: SUCCESSFUL LEFT THORACENTESIS USING ULTRASOUND GUIDANCE. Acute Abdomen Series 01/21/19 00:00 IMPRESSION: 1. Unchanged radiographic appearance of the chest with cardiomegaly, indistinctness of the pulmonary vasculature, and a density in the left retrocardiac space that could represent a combination of pleural fluid, atelectasis and/or pneumonia. 2. Nonobstructive bowel gas pattern. Abdomen/Pelvis CT 01/24/19 00:00 IMPRESSION: 1. CARDIOMEGALY. PERICARDIAL EFFUSION. BILATERAL PLEURAL EFFUSIONS WITH LEFT LOWER LOBE CONSOLIDATION SECONDARY TO COMPRESSIVE ATELECTASIS VERSUS PNEUMONIA. 2. DIFFUSE EDEMA IN THE SUBCUTANEOUS FATTY TISSUES OF THE BODY. 3. CORTICAL CYST IN THE RIGHT KIDNEY. 4. NO OTHER SIGNIFICANT FINDINGS IN THE ABDOMEN OR PELVIS. Head CT 01/26/19 08:00 IMPRESSION: No acute intracranial abnormality. EVIDENCE OF ACUTE STROKE: NO. Chest X-Ray 01/26/19 11:11 IMPRESSION: Pulmonary vascular congestion. Trace right pleural effusion Bibasilar consolidation atelectasis versus pneumonia Massive cardiomegaly Assessment and Plan - Diagnosis (1) Aphasia Is this a current diagnosis for this admission?: Yes (2) Respiratory failure Qualifiers: Chronicity: acute on chronic Respiratory failure complication: hypercapnia Qualified Code(s): J96.22 - Acute and chronic respiratory failure with hypercapnia Is this a current diagnosis for this admission?: Yes (3) Acute respiratory failure with hypoxia and hypercapnia Is this a current diagnosis for this admission?: Yes (4) Anemia, chronic disease Is this a current diagnosis for this admission?: Yes (5) CKD (chronic kidney disease) Qualifiers: Chronic kidney disease stage: stage 4 (severe) Qualified Code(s): N18.4 - Chronic kidney disease, stage 4 (severe) Is this a current diagnosis for this admission?: Yes (6) Hypertension Is this a current diagnosis for this admission?: Yes (7) Morbid obesity with BMI of 45.0-49.9, adult Is this a current diagnosis for this admission?: Yes - Plan Summary Summary: Patient is admitted to the medical floor where she will receive routine supportive and symptomatic cares. Her acute dyspnea and congestive heart failure will be treated with morphine sulfate 2 mg IV q1h as needed for dyspnea and nitroglycerin ointment will be applied 1 g every 6 hours. She will be placed on BiPAP as required to support her oxygen saturation at greater than 93%. Her acute on chronic kidney injury will be treated with IV fluids utilizing lactated Ringer's and a nephrology consultation will be obtained. Her left lower lobe infiltrate appears to be persistent from her previous hospitalization and therefore will be treated with intravenous cefepime and Levaquin. Additionally she will be treated with an aggressive pulmonary toilet utilizing Xopenex, Atrovent, Mucomyst and Pulmicort delivered via nebulizer. She will be continued on her usual home medications for her numerous chronic medical problems as appropriate. She will be continued on a diabetic, renal and cardiac diet. Auger Operator consultation will be obtained for her multiple medical problems and guidance in weight loss. 01/25/2019 Came in this morning her pupils were pinpoint and she was basically awake but not following commands, no speech at all Patient did receive a dose of morphine last night, this was discontinued today Patient still appears to be encephalopathic CBC is normal ,glucose around 1 30-1 60 ,ammonia levels normal O2 sats only 90% on room air, aithough patient is now on 3 L nasal cannula this is a change from yesterday when she was in the upper 90s. Patient does use oxygen at home White count is normal , H&H is come up to 11 and 32, whereas on admission she was 7 and 21 On admission her BUN was 48 today is 46, on admission her creatinine was 4.08 today it is 3.41 Glucose levels are running about 140 Patient currently on no IV antibiotics Urinalysis from today shows negative nitrates and negative leukocytes CT scan shows no acute infarcts this was done 2 days ago I am going to repeat it tomorrow since patient is not a good candidate for an MRI of the brain, patient has not had a elevated temperature since she is been here 01/26/[address] scan from this morning is pending looking for new infarcts Pressures are slightly high approximately 164/75 appears to be her normal range, O2 sat is 94% on 2 L nasal cannula, no fever, no white count She has not been on the p.o. Levaquin for 72 hours and not on the IV cefepime for about 96 hours. Cannot find a reason why these were discontinued. Going to get a portable chest x-ray on her today and then probably resume antibiotics. Will be looking at her pleural effusion status to see if she needs another thoracentesis She was diagnosed with pneumonia on admission however last chest x-ray was 6 days ago. 01/27/2019 Afebrile, heart rate up slightly this morning 102 but normal heart rate is around 90 Pressure appears stable around 150/70, O2 saturation between 94 and 98% on e ither 2 or 4 L of oxygen. Will place in order to go no higher than 3 L from here on out as she may be retaining CO2 White count is still normal. Per nephrology note her creatinine is still probably elevated at 3.57 with her baseline being seen 2.5-3.5 Patient was placed on Bumex yesterday for her pulmonary vascular congestion as seen on chest x-ray Patient currently on no antibiotics. I am going to re-consult discharge planning. At does not appear to me that patient would be able to be managed at home and will need placement 01/28/2019 Blood pressure is holding around 140/70, will take her off of the nitro drip today. Nephrology has added Apresoline every 8 hours which should help. Fortunately her creatinine is bumped back up again today is 4.25, nephrology did comment yesterday that he is going to increase her IV fluids gently Oxygen saturations are in the upper 90s on 3 L which she uses at home Clinically patient is doing well, lungs actually sound clear Still anticipate discharge to home tomorrow, but of course we will check labs again in the morning - Time Time Spent with patient: 25-34 minutes
--- NOTE | 2019-01-28 17:17 | PDOC PROGRESS REPORT ---
Subjective Progress Note for:: 01/28/19 Reason For Visit: Patient seen today. She still remains comfortable and in no distress. She is eating well. She denies any short chest pain shortness of breath. However she is always laying in bed and has not even exerted to be on the recliner. She has got a English catheter and draining urine. No complaints from abdominal pains. Labs and medications were reviewed that shows a slight worsening of her creatinine. Her urine output also is also slightly lower than earlier.I had begun her on low-dose of fluids besides the IV diuretics yesterday. Physical Exam Vital Signs: Temp Pulse Resp BP Pulse Ox 97.9 F 61 18 123/56 L 96 01/28/19 12:00 01/28/19 14:00 01/28/19 12:00 01/28/19 14:00 01/28/19 12:07 Pulse Oximeter Continuous Start: 01/17/19 23:46 Freq: RTQ4 Status: Active Protocol: Document 01/28/19 12:07 NSM (Rec: 01/28/19 13:52 NSM [email or web address]) Pulse Oximetry Assessment Oxygen Saturation (92-100) 96 Oxygen Flow Rate (L/min) 3 Oxygen Delivery Method Nasal Cannula Fraction of Inspired Oxygen (FIO2) 32 Equipment Usage Equipment in Use Continuous SpO2 Machine # [id number] Intake & Output 01/27/19 01/28/19 01/29/19 06:59 06:59 06:59 Intake Total 389 687 660 Output Total 1175 800 Balance -786 -113 660 Weight 127.2 kg 129.2 kg General appearance: PRESENT: no acute distress Respiratory exam: PRESENT: clear to auscultation vadim, decreased breath sounds. ABSENT: crackles Cardiovascular exam: PRESENT: +S1, +S2 GI/Abdominal exam: PRESENT: normal bowel sounds, soft. ABSENT: distended, firm, guarding, organomegaly, rebound, tenderness Extremities exam: PRESENT: pedal edema Neurological exam: PRESENT: alert, awake, oriented to person, oriented to place, oriented to time Psychiatric exam: PRESENT: appropriate affect Skin exam: ABSENT: erythema, mottled, rash Results Laboratory Results: 01/24/19 11:58 01/28/19 05:35 01/28/19 05:35 Sodium 140.8 Potassium 3.6 Chloride 108 H Carbon Dioxide 26 Anion Gap 7 BUN 62 H Creatinine 4.25 H Est GFR ( Amer) 13 L Glucose 111 H Calcium 8.2 L 01/17/19 01/17/19 01/21/19 16:26 16:26 06:06 Creatine Kinase 130 96 CK-MB (CK-2) 3.44 Troponin I 0.015 NT-Pro-B Natriuret Pep 7400 H 01/21/19 01/21/19 01/21/19 06:06 12:46 12:46 Creatine Kinase 102 CK-MB (CK-2) 1.89 2.14 Troponin I 0.018 < 0.012 NT-Pro-B Natriuret Pep 01/22/19 01/22/19 01/24/19 02:43 02:43 11:58 Creatine Kinase 121 59 CK-MB (CK-2) 2.52 Troponin I 0.017 NT-Pro-B Natriuret Pep 01/24/19 01/26/19 11:58 06:24 Creatine Kinase CK-MB (CK-2) 2.83 Troponin I 0.018 NT-Pro-B Natriuret Pep 84318 H Impressions: Thoracentesis Ultrasound 01/20/19 00:00 IMPRESSION: SUCCESSFUL LEFT THORACENTESIS USING ULTRASOUND GUIDANCE. Acute Abdomen Series 01/21/19 00:00 IMPRESSION: 1. Unchanged radiographic appearance of the chest with cardiomegaly, indistinctness of the pulmonary vasculature, and a density in the left retrocardiac space that could represent a combination of pleural fluid, atelectasis and/or pneumonia. 2. Nonobstructive bowel gas pattern. Abdomen/Pelvis CT 01/24/19 00:00 IMPRESSION: 1. CARDIOMEGALY. PERICARDIAL EFFUSION. BILATERAL PLEURAL EFFUSIONS WITH LEFT LOWER LOBE CONSOLIDATION SECONDARY TO COMPRESSIVE ATELECTASIS VERSUS PNEUMONIA. 2. DIFFUSE EDEMA IN THE SUBCUTANEOUS FATTY TISSUES OF THE BODY. 3. CORTICAL CYST IN THE RIGHT KIDNEY. 4. NO OTHER SIGNIFICANT FINDINGS IN THE ABDOMEN OR PELVIS. Head CT 01/26/19 08:00 IMPRESSION: No acute intracranial abnormality. EVIDENCE OF ACUTE STROKE: NO. Chest X-Ray 01/26/19 11:11 IMPRESSION: Pulmonary vascular congestion. Trace right pleural effusion Bibasilar consolidation atelectasis versus pneumonia Massive cardiomegaly Assessment & Plan - Diagnosis (1) Acute kidney injury superimposed on chronic kidney disease Is this a current diagnosis for this admission?: Yes Plan: Admission creatinine was 4 as compared to baseline of 2.5-3.5. Current creatinine is now dropped to 4.25/3.5 and remaining stable. She is nonoliguric.Today clinically she is showing signs that she might be getting p eripherally fluid overloaded. Therefore I am going to discontinue her IV fluids. Continue on the IV Bumex and see the response.. (2) Acute exacerbation of chronic obstructive airways disease with asthma Is this a current diagnosis for this admission?: Yes Plan: Apparent acute infective exacerbation of COPD with possibility of left lower lobe pneumonia. Initially treated with nebulizers and antibiotics. As per hospitalist. (3) Left lower lobe consolidation Is this a current diagnosis for this admission?: Yes Plan: Initially was put on antibiotics and now discontinued. As per hospitalist. (4) Chronic kidney disease, stage IV (severe) Is this a current diagnosis for this admission?: Yes Plan: Baseline renal functions stage IV with creatinine from 2.5-3.5. Current creatinine 4.25/3.5 and nonoliguric. Showing early signs of peripheral fluid overload. Stop IV fluids. Monitor (5) Diabetes mellitus type 2 in obese Is this a current diagnosis for this admission?: Yes Plan: As per hospitalist. (6) HTN (hypertension) Qualifiers: Hypertension type: essential hypertension Qualified Code(s): I10 - Essential (primary) hypertension Is this a current diagnosis for this admission?: Yes Plan: Controlled.Continue current medications.
--- NOTE | 2019-01-28 17:55 | RADIOLOGY REPORT (SQ) ---
EXAM DESCRIPTION: CHEST SINGLE VIEW COMPLETED DATE/TIME: 01/28/2019 5:42 pm REASON FOR STUDY: pleural effusion COMPARISON: 01/26/2019 EXAM PARAMETERS: NUMBER OF VIEWS: One view. TECHNIQUE: Single frontal radiographic view of the chest acquired. RADIATION DOSE: NA LIMITATIONS: None. FINDINGS: LUNGS AND PLEURA: Stable to slightly improved appearance of bilateral mixed interstitial a nd airspace opacities with bilateral layering pleural effusions. No pneumothorax. MEDIASTINUM AND HILAR STRUCTURES: Grossly stable. HEART AND VASCULAR STRUCTURES: Grossly stable. BONES: No acute findings. HARDWARE: None in the chest. OTHER: No other significant finding. IMPRESSION: Stable to slightly improved pulmonary examination demonstrating bilateral pleural effusi ons with mixed interstitial and airspace opacities. Given concomitant cardiomegaly, differential con siderations include CHF exacerbation or infectious etiology. TECHNICAL DOCUMENTATION: JOB ID: [id number] [employer]- All Rights Reserved Reading location - IP/workstation name: [email or web address]
[2019-01-28] MEDS: HYDRALAZINE HCL INJ/PF 20 MG/1 ML SDV IV PRN (21:02)
[2019-01-29] MEDS: HEPARIN SOD (PORCINE) 5,000 UNIT/ML 1 ML VIAL SUBCUT SCH (05:59)
[2019-01-29] MEDS: HYDRALAZINE HCL 50 MG TABLET PO SCH (06:00)
[2019-01-29] MEDS: PANTOPRAZOLE SODIUM 40 MG TABLET.DR PO SCH (06:00)
[2019-01-29 06:51] LABS: ANION GAP 7 (5-19); BLOOD UREA NITROGEN 68 mg/dL (7-20); CALCIUM 7.8 mg/dL (8.4-10.2); CARBON DIOXIDE 26 mmol/L (22-30); CHLORIDE 106 mmol/L (98-107); GLUCOSE 110 mg/dL (75-110); POTASSIUM 3.6 mmol/L (3.6-5.0)
[2019-01-29] MEDS: BUDESONIDE NEB 0.5 MG/2 ML AMPUL NEB SCH (08:16)
[2019-01-29] MEDS: IPRATROPIUM BROMIDE 0.02% NEB 0.5 MG/2.5 ML AMPUL NEB SCH (08:16)
[2019-01-29] MEDS: LEVALBUTEROL HCL NEB 1.25 MG/3 ML AMPUL NEB SCH (08:16)
[2019-01-29] MEDS: INSULIN REG, HUMAN 100 UNIT/ML 3 ML VIAL (PYX) SUBCUT SCH ×2 (09:28→12:27)
[2019-01-29] MEDS: BUMETANIDE INJ/PF 1 MG/4 ML SDV IV SCH (10:38)
[2019-01-29] MEDS: GUAIFENESIN 600 MG TABLET.SA PO SCH (10:38)
[2019-01-29] MEDS: CARVEDILOL 12.5 MG TABLET PO SCH (10:38)
[2019-01-29] MEDS: ESCITALOPRAM OXALATE 10 MG TABLET PO SCH (10:38)
[2019-01-29] MEDS: LISINOPRIL 10 MG TABLET PO SCH (10:38)
[2019-01-29] MEDS: GABAPENTIN 300 MG CAPSULE PO SCH (10:38)
[2019-01-29] MEDS: POLYETHYLENE GLYCOL 3350 POWDER 17 GM/1 PACKET PO SCH (10:38)
[2019-01-29 13:49] VITALS: BP 189/73
--- NOTE | 2019-01-30 14:11 | PDOC DISCHARGE SUMMARY ---
Impression - Admit/DC Date/PCP Admission Date/Primary Care Provider: 01/18/19 00:01 NATACHA CORMIER MD Discharge Date: 01/29/19 - Discharge Diagnosis (1) Aphasia Is this a current diagnosis for this admission?: Yes (2) Respiratory failure Is this a current diagnosis for this admission?: Yes (3) Acute respiratory failure with hypoxia and hypercapnia Is this a current diagnosis for this admission?: Yes (4) Anemia, chronic disease Is this a current diagnosis for this admission?: Yes (5) CKD (chronic kidney disease) Is this a current diagnosis for this admission?: Yes (6) Hypertension Is this a current diagnosis for this admission?: Yes (7) Morbid obesity with BMI of 45.0-49.9, adult Is this a current diagnosis for this admission?: Yes - Assessment Summary: Patient is admitted to the medical floor where she will receive routine supportive and symptomatic cares. Her acute dyspnea and congestive heart failure will be treated with morphine sulfate 2 mg IV q1h as needed for dyspnea and nitroglycerin ointment will be applied 1 g every 6 hours. She will be placed on BiPAP as required to support her oxygen saturation at greater than 93%. Her acute on chronic kidney injury will be treated with IV fluids utilizing lactated Ringer's and a nephrology consultation will be obtained. Her left lower lobe infiltrate appears to be persistent from her previous hospitalization and therefore will be treated with intravenous cefepime and Levaquin. Additionally she will be treated with an aggressive pulmonary toilet utilizing Xopenex, Atrovent, Mucomyst and Pulmicort delivered via nebulizer. She will be continued on her usual home medications for her numerous chronic medical problems as appropriate. She will be continued on a diabetic, renal and cardiac diet. Hem Marker consultation will be obtained for her multiple medical problems and guidance in weight loss. 01/25/2019 Came in this morning her pupils were pinpoint and she was basically awake but not following commands, no speech at all Patient did receive a dose of morphine last night, this was discontinued today Patient still appears to be encephalopathic CBC is normal ,glucose around 1 30-1 60 ,ammonia levels normal O2 sats only 90% on room air, aithough patient is now on 3 L nasal cannula this is a change from yesterday when she was in the upper 90s. Patient does use oxygen at home White count is normal , H&H is come up to 11 and 32, whereas on admission she was 7 and 21 On admission her BUN was 48 today is 46, on admission her creatinine was 4.08 today it is 3.41 Glucose levels are running about 140 Patient currently on no IV antibiotics Urinalysis from today shows negative nitrates and negative leukocytes CT scan shows no acute infarcts this was done 2 days ago I am going to repeat it tomorrow since patient is not a good candidate for an MRI of the brain, patient has not had a elevated temperature since she is been here 01/26/[address] scan from this morning is pending looking for new infarcts Pressures are slightly high approximately 164/75 appears to be her normal range, O2 sat is 94% on 2 L nasal cannula, no fever, no white count She has not been on the p.o. Levaquin for 72 hours and not on the IV cefepime for about 96 hours. Cannot find a reason why these were discontinued. Going to get a portable chest x-ray on her today and then probably resume antibiotics. Will be looking at her pleural effusion status to see if she needs another thoracentesis She was diagnosed with pneumonia on admission however last chest x-ray was 6 days ago. 01/27/2019 Afebrile, heart rate up slightly this morning 102 but normal heart rate is around 90 Pressure appears stable around 150/70, O2 saturation between 94 and 98% on either 2 or 4 L of oxygen. Will place in order to go no higher than 3 L from here on out as she may be retaining CO2 White count is still normal. Per nephrology note her creatinine is still probably elevated at 3.57 with her baseline being seen 2.5-3.5 Patient was placed on Bumex yesterday for her pulmonary vascular congestion as seen on chest x-ray Patient currently on no antibiotics. I am going to re-consult discharge planning. At does not appear to me that patient would be able to be managed at home and will need placement 01/28/2019 Blood pressure is holding around 140/70, will take her off of the nitro drip today. Nephrology has added Apresoline every 8 hours which should help. Fortunately her creatinine is bumped back up again today is 4.25, nephrology did comment yesterday that he is going to increase her IV fluids gently Oxygen saturations are in the upper 90s on 3 L which she uses at home Clinically patient is doing well, lungs actually sound clear Still anticipate discharge to home tomorrow, but of course we will check labs again in the morning 01/29/2019 Patient is feeling well enough to go home. She is very alert, she has caregivers at home who are used to providing care. His creatinine is gone up a little bit today but patient runs an elevated creatinine even normally. Can be managed as an outpatient Only prescription I wrote for today was hydralazine 50 mg 90 tablets 1 every 8 hours. On the day of discharge her final blood pressure was 152/62 in the left arm, pressures seem to run higher in the right arm Oxygen saturation is 90% on 2 L which is what she uses at home Patient will follow with her primary care provider as well as nephrology - Additional Information Resuscitation Status: Full Code Discharge Diet: Cardiac, Diabetic, Other (Comments) Discharge Activity: Activity As Tolerated, Balance Activity w/Rest, Weigh Daily Referrals: NATACHA CORMIER MD [Primary Care Provider] - Follow up as needed (Someone will call you with your appointment Thursday.) Prescriptions: Hydralazine HCl [Apresoline 50 mg Tablet] 50 mg PO Q8 30 Days #90 tablet Home Medications: Albuterol Sulfate [Proair HFA Inhalation Aerosol 8.5 gm MDI] 2 puff IH Q4HP PRN 01/18/19 Amlodipine Besylate [Norvasc 5 mg Tablet] 5 mg PO DAILY 01/18/19 Aspirin [Adult Low Dose Aspirin EC] 81 mg PO DAILY 01/18/19 Carvedilol [Coreg 12.5 mg Tablet] 12.5 mg PO Q12 01/18/19 Escitalopram Oxalate [Lexapro] 20 mg PO DAILY 01/18/19 Ezetimibe [Zetia 10 mg Tablet] 10 mg PO DAILY 01/18/19 Furosemide [Lasix 40 mg Tablet] 40 mg PO DAILY 01/18/19 Gabapentin [Neurontin 300 mg Capsule] 600 mg PO QPM 01/18/19 Gabapentin [Neurontin 300 mg Capsule] 900 mg PO QAM 01/18/19 Insulin Glargine,Hum.rec.anlog [Lantus Insulin 100 Unit/1 ml 10 ml] 15 units SQ QAM 01/18/19 Lisinopril [Zestril] 40 mg PO DAILY 01/18/19 Mirabegron [Myrbetriq] 50 mg PO DAILY 01/18/19 Pantoprazole Sodium [Protonix [address] Tablet] 40 mg PO DAILY 01/18/19 Potassium Chloride [Klor-Con M20] 20 meq PO DAILY 01/18/19 Tramadol HCl [Ultram 50 mg Tablet] 50 mg PO Q8 01/18/19 Guaifenesin [Mucinex Sr 600 mg Tablet.sa] 600 mg PO Q12 tablet.sa 01/29/19 Guaifenesin [Robitussin Syrup 200 mg/10 ml Ud Cup] 200 mg PO QIDP PRN udc 01/29/19 Hydralazine HCl [Apresoline 50 mg Tablet] 50 mg PO Q8 30 Days #90 tablet 01/29/19 Polyethylene Glycol 3350 [Miralax Powder 17 gm/Packet] 17 gm PO DAILY powd.pack 01/29/19 History of Present Illiness History of Present Illness: FINA HERNÁNDEZ is a 63 year old female Physical Exam Vital Signs: Temp Pulse Resp BP Pulse Ox 97.9 F 73 19 189/73 H 99 01/29/19 13:48 01/29/19 13:48 01/29/19 13:48 01/29/19 13:48 01/29/19 13:48 Pulse Oximeter Continuous Start: 01/17/19 23:46 Freq: RTQ4 Status: Discharge Protocol: Document 01/29/19 12:00 HCR (Rec: 01/29/19 16:40 HCR [email or web address]) Pulse Oximetry Assessment Equipment Usage Equipment Discontinued Continuous SpO2 Machine # 4 Intake & Output 01/29/19 01/30/19 01/31/19 06:59 06:59 06:59 Intake Total 2267 Output Total 1025 Balance 1242 Weight 132.3 kg Results Laboratory Results: WBC 6.3 10^3/uL (4.0-10.5) 01/24/19 11:58 RBC 3.47 10^6/uL (3.72-5.28) L 01/24/19 11:58 Hgb 11.0 g/dL (12.0-15.5) L 01/24/19 11:58 Hct 32.3 % (36.0-47.0) L 01/24/19 11:58 MCV 93 fl (80-97) 01/24/19 11:58 MCH 31.6 pg (27.0-33.4) 01/24/19 11:58 MCHC 33.9 g/dL (32.0-36.0) 01/24/19 11:58 RDW 16.3 % (11.5-14.0) H 01/24/19 11:58 Plt Count 252 10^3/uL (150-450) 01/24/19 11:58 Lymph % (Auto) 9.5 % (13-45) L 01/24/19 11:58 [place] % (Auto) 8.0 % (3-13) 01/24/19 11:58 Eos % (Auto) 0.3 % (0-6) 01/24/19 11:58 Baso % (Auto) 1.0 % (0-2) 01/24/19 11:58 Reticulocyte # 0.030 10^6/uL (0.028-0.122) 01/19/19 07:11 Absolute Neuts (auto) 5.1 10^3/uL (1.7-8.2) 01/24/19 11:58 Absolute Lymphs (auto) 0.6 10^3/uL (0.5-4.7) 01/24/19 11:58 Absolute Monos (auto) 0.5 10^3/uL (0.1-1.4) 01/24/19 11:58 Absolute Eos (auto) 0.0 10^3/uL (0.0-0.6) 01/24/19 11:58 Absolute Basos (auto) 0.1 10^3/uL (0.0-0.2) 01/24/19 11:58 Seg Neutrophils % 81.2 % (42-78) H 01/24/19 11:58 Platelet Estimate Cancelled 01/18/19 03:57 Retic Count (auto) 1.30 % (0.66-2.85) 01/19/19 07:11 PT 14.0 SEC (11.4-15.4) 01/19/19 12:42 INR 1.08 01/19/19 12:42 Carbonic Acid 1.17 mmol/L (1.05-1.35) 01/24/19 16:04 HCO3/H2CO3 Ratio 17:1 01/24/19 16:04 ABG pH 7.33 (7.35-7.45) L 01/24/19 16:04 ABG pCO2 38.8 mmHg (35-45) 01/24/19 16:04 ABG pO2 78.7 mmHg (80-100) L 01/24/19 16:04 ABG HCO3 20.2 mmol/L (20-24) 01/24/19 16:04 ABG Total CO2 21.4 mmol/L (21-25) 01/24/19 16:04 ABG O2 Saturation 95.0 % (94-98) 01/24/19 16:04 ABG Base Excess -5.2 mmol/L 01/24/19 16:04 FiO2 28% 01/24/19 16:04 Sodium 139.3 mmol/L (137-145) 01/29/19 05:33 Potassium 3.6 mmol/L (3.6-5.0) 01/29/19 05:33 Chloride 106 mmol/L (98-107) 01/29/19 05:33 Carbon Dioxide 26 mmol/L (22-30) 01/29/19 05:33 Anion Gap 7 (5-19) 01/29/19 05:33 BUN 68 mg/dL (7-20) H 01/29/19 05:33 Creatinine 4.52 mg/dL (0.52-1.25) H 01/29/19 05:33 Est GFR ( Amer) 12 (>60) L 01/29/19 05:33 Est GFR (MDRD) Non-Af 10 (>60) L 01/29/19 05:33 Glucose 110 mg/dL (75-110) 01/29/19 05:33 POC Glucose 147 mg/dL (70-110) H 01/29/19 11:33 Lactic Acid 0.5 mmol/L (0.7-2.1) L 01/25/19 14:37 Calcium 7.8 mg/dL (8.4-10.2) L 01/29/19 05:33 Phosphorus 4.5 mg/dL (2.5-4.5) 01/24/19 11:58 Magnesium 1.6 mg/dL (1.6-2.3) 01/24/19 11:58 Iron 38.4 ug/dL (37-170) 01/19/19 07:11 TIBC 221 ug/dL (250-450) L 01/19/19 07:11 % Saturation 17 % 01/19/19 07:11 Ferritin 222.00 ng/mL (11.1-264.0) 01/19/19 07:11 Total Bilirubin 0.6 mg/dL (0.2-1.3) 01/24/19 11:58 Direct Bilirubin 0.3 mg/dL (0.0-0.4) 01/24/19 11:58 Neonat Total Bilirubin Not Reportable 01/24/19 11:58 Neonat Direct Bilirubin Not Reportable 01/24/19 11:58 Neonat Indirect Bili Not Reportable 01/24/19 11:58 AST 18 U/L (14-36) 01/24/19 11:58 ALT 12 U/L (<35) 01/24/19 11:58 Alkaline Phosphatase 76 U/L (38-126) 01/24/19 11:58 Ammonia < 8.7 umol/L (9-33) L 01/24/19 11:58 Creatine Kinase 59 U/L (30-135) 01/24/19 11:58 CK-MB (CK-2) 2.83 ng/mL (<4.55) 01/24/19 11:58 Troponin I 0.018 ng/mL 01/24/19 11:58 NT-Pro-B Natriuret Pep 79784 pg/mL (<125) H 01/26/19 06:24 Total Protein 6.2 g/dL (6.3-8.2) L 01/24/19 11:58 Albumin 3.3 g/dL (3.5-5.0) L 01/24/19 11:58 Vitamin B12 256.0 pg/mL (239-931) 01/19/19 07:11 Folate 12.80 ng/mL (>2.76) 01/19/19 07:11 Urine Color STRAW 01/25/19 09:08 Urine Appearance CLEAR 01/25/19 09:08 Urine pH 5.0 (5.0-9.0) 01/25/19 09:08 Ur Specific [place] 1.010 01/25/19 09:08 Urine Protein >=500 mg/dL (NEGATIVE) H 01/25/19 09:08 Urine Glucose (UA) 150 mg/dL (NEGATIVE) H 01/25/19 09:08 Urine Ketones TRACE mg/dL (NEGATIVE) H 01/25/19 09:08 Urine Blood SMALL (NEGATIVE) H 01/25/19 09:08 Urine Nitrite NEGATIVE (NEGATIVE) 01/19/19 16:35 Urine Nitrite (Reflex) NEGATIVE (NEGATIVE) 01/25/19 09:08 Urine Bilirubin NEGATIVE (NEGATIVE) 01/25/19 09:08 Urine Urobilinogen NEGATIVE mg/dL (<2.0) 01/25/19 09:08 Ur Leukocyte Esterase MODERATE (NEGATIVE) H 01/19/19 16:35 Leukocyte Esterase Rfl NEGATIVE (NEGATIVE) 01/25/19 09:08 Urine WBC (Auto) 75 /HPF 01/19/19 16:35 Urine RBC (Auto) 1 /HPF 01/25/19 09:08 Urine Bacteria (Auto) 3+ /HPF 01/19/19 16:35 Urine WBC (Reflex) 1 /HPF 01/25/19 09:08 Urine WBC Clumps FEW /HPF 01/19/19 16:35 Squamous Epi Cells Auto <1 /HPF 01/19/19 16:35 Amorphous Sediment Auto TRACE /HPF 01/19/19 16:35 Urine Mucus (Auto) RARE /LPF 01/25/19 09:08 Urine Yeast (Budding) PRESENT /HPF 01/25/19 09:08 Urine Creatinine 34.0 mg/dL (15-278) 01/25/19 09:08 Protein/Creatinin Ratio 12.2 mg/mg (0.0-0.2) H 01/25/19 09:08 Urine Total Protein 415.0 mg/dL (<12) H 01/25/19 09:08 Urine Ascorbic Acid NEGATIVE (NEGATIVE) 01/25/19 09:08 Fluid Type PLEURAL 01/20/19 10:15 Fluid Source LUNG 01/20/19 10:15 Fluid Color STRAW 01/20/19 10:15 Fluid Appearance CLEAR 01/20/19 10:15 Fluid Viscosity LIQUID 01/20/19 10:15 Fluid pH 7.5 (Not Estab.) 01/20/19 10:15 Fluid WBC 306 /uL 01/20/19 10:15 Fluid RBC 301 /uL 01/20/19 10:15 Fluid Seg Neutrophils 2 % 01/20/19 10:15 Fluid Lymphocytes 96 % 01/20/19 10:15 Fluid Monocytes 2 % 01/20/19 10:15 Fluid Eosinophils 0 % 01/20/19 10:15 Fluid Basophils 0 % 01/20/19 10:15 Fluid Glucose 135 mg/dL (.) 01/20/19 10:15 Fluid Total Protein 1.2 g/dL (.) 01/20/19 10:15 Fluid LDH 82 IU/L (.) 01/20/19 10:15 Stool Occult Blood POSITIVE (NEGATIVE) 01/22/19 09:42 Slides for Path Review SEE COMMENT 01/20/19 10:15 Blood Type O NEGATIVE 01/21/19 16:00 Antibody Screen NEGATIVE 01/21/19 16:00 Crossmatch See Detail 01/21/19 16:00 01/17/19 01/21/19 01/21/19 16:26 06:06 12:46 CK-MB (CK-2) 3.44 1.89 2.14 Troponin I 0.015 0.018 < 0.012 NT-Pro-B Natriuret Pep 7400 H 01/22/19 01/24/19 01/26/19 02:43 11:58 06:24 CK-MB (CK-2) 2.52 2.83 Troponin I 0.017 0.018 NT-Pro-B Natriuret Pep 81655 H Impressions: Chest X-Ray 01/17/19 20:00 IMPRESSION: Left lower lobe consolidation and pneumonia, similar to the prior study. Chest X-Ray 01/20/19 00:00 IMPRESSION: Post left thoracentesis. No pneumothorax. Minimal persistent left basilar atelectasis. Since prior imaging, patient has developed a 1.5 cm infiltrate versus nodule over the right upper lobe. When the patient's acute condition resolves, upright two-view chest film is recommended for further evaluation of this finding Chest X-Ray 01/20/19 00:00 IMPRESSION: Left lower lobe consolidation atelectasis versus pneumonia Minimal right apical airspace disease versus nodule No pneumothorax on 2 hour post thoracentesis film Thoracentesis Ultrasound 01/20/19 00:00 IMPRESSION: SUCCESSFUL LEFT THORACENTESIS USING ULTRASOUND GUIDANCE. Acute Abdomen Series 01/21/19 00:00 IMPRESSION: 1. Unchanged radiographic appearance of the chest with cardiomegaly, indistinctness of the pulmonary vasculature, and a density in the left retrocardiac space that could represent a combination of pleural fluid, atelectasis and/or pneumonia. 2. Nonobstructive bowel gas pattern. Head CT 01/23/19 00:00 IMPRESSION: NORMAL BRAIN CT WITHOUT CONTRAST. EVIDENCE OF ACUTE STROKE: NO. Abdomen/Pelvis CT 01/24/19 00:00 IMPRESSION: 1. CARDIOMEGALY. PERICARDIAL EFFUSION. BILATERAL PLEURAL EFFUSIONS WITH LEFT LOWER LOBE CONSOLIDATION SECONDARY TO COMPRESSIVE ATELECTASIS VERSUS PNEUMONIA. 2. DIFFUSE EDEMA IN THE SUBCUTANEOUS FATTY TISSUES OF THE BODY. 3. CORTICAL CYST IN THE RIGHT KIDNEY. 4. NO OTHER SIGNIFICANT FINDINGS IN THE ABDOMEN OR PELVIS. Head CT 01/26/19 08:00 IMPRESSION: No acute intracranial abnormality. EVIDENCE OF ACUTE STROKE: NO. Chest X-Ray 01/26/19 11:11 IMPRESSION: Pulmonary vascular congestion. Trace right pleural effusion Bibasilar consolidation atelectasis versus pneumonia Massive cardiomegaly Chest X-Ray 01/28/19 17:11 IMPRESSION: Stable to slightly improved pulmonary examination demonstrating bilateral pleural effusions with mixed interstitial and airspace opacities. Given concomitant cardiomegaly, differential considerations include CHF exacerbation or infectious etiology. Stroke Is this a Stroke Patient?: No Acute Heart Failure - Is this a Heart Failure Patient?: Yes Documentation of LVEF assessment?: No, Document reason LVEF < 40%?: No- if no continue to question #3 3. Anticoagulant therapy for permanect/persistent/paraoxysmal Afib or Aflutter: Yes Follow-up Appointment scheduled within 7 days?: Yes
== END 2019-01-29 14:04 | disposition home or self-care (01) | DRG 189 ==
LOC: ER 14:57 → EH 01-18 00:01 → 4W 01-18 16:44 → 4S 01-21 17:47 → 3S 01-24 19:49
PROVIDERS: ADMIT Emergency Medicine; ATTEND Emergency Medicine
PROC: 5A09557 Assistance with Respiratory Ventilation, Greater than 96 Consecutive Hours, Continuous Positive Airway Pressure (ICD-10-PCS; principal; 2019-01-17)
PROC: 0W9B3ZZ Drainage of Left Pleural Cavity, Percutaneous Approach (ICD-10-PCS; 2019-01-20)
PROC: 30233N1 Transfusion of Nonautologous Red Blood Cells into Peripheral Vein, Percutaneous Approach (ICD-10-PCS; 2019-01-21)
DX: J96.21 Acute and chronic respiratory failure with hypoxia (principal); J18.9 Pneumonia, unspecified organism; I50.33 Acute on chronic diastolic (congestive) heart failure; R47.01 Aphasia; Z68.42 Body mass index [BMI] 45.0-49.9, adult; N17.9 Acute kidney failure, unspecified; N18.4 Chronic kidney disease, stage 4 (severe); I13.0 Hypertensive heart and chronic kidney disease with heart failure and stage 1 through stage 4 chronic kidney disease, or unspecified chronic kidney disease; J91.8 Pleural effusion in other conditions classified elsewhere; J44.1 Chronic obstructive pulmonary disease with (acute) exacerbation; J96.22 Acute and chronic respiratory failure with hypercapnia; I25.10 Atherosclerotic heart disease of native coronary artery without angina pectoris; E11.22 Type 2 diabetes mellitus with diabetic chronic kidney disease; E78.5 Hyperlipidemia, unspecified; D63.1 Anemia in chronic kidney disease; F32.9 Major depressive disorder, single episode, unspecified; E66.01 Morbid (severe) obesity due to excess calories; G47.33 Obstructive sleep apnea (adult) (pediatric); Z99.81 Dependence on supplemental oxygen; Z60.2 Problems related to living alone; I16.0 Hypertensive urgency; E78.00 Pure hypercholesterolemia, unspecified; Z79.899 Other long term (current) drug therapy; Z79.4 Long term (current) use of insulin; Z79.82 Long term (current) use of aspirin; Z83.3 Family history of diabetes mellitus
CPT/HCPCS: 32555; 36415; 36430; 36600; 70450; 71045; 74022; 74176; 80048; 80053; 81001; 82140; 82272; 82550; 82553; 82570; 82607; 82728; 82746; 82803; 82945; 82962; 83540; 83550; 83605; 83615; 83735; 83880; 83986; 84100; 84156; 84157; 84484; 85025; 85027; 85045; 85610; 86850; 86900; 86901; 86920; 87040; 87070; 87075; 87077; 87150; 87186; 87205; 89050; 93005; 93010; 94640; 94660; 94762; 96365; 96375; 99285; J0360; J0456; J0692; J0696; J1644; J1815; J1940; J1956; J2270; J2405; J2550; J2765; J3490; J7120; J7614; J7620; P9016

== ENCOUNTER 2019-03-14 09:42 | Emergency (ER) | payer MEDICARE, MEDICAID ==
--- NOTE | 2019-03-14 12:39 | ER Document Report ---
ED General - General Chief Complaint: Fall Stated Complaint: FALL Time Seen by Provider: 03/14/19 11:48 Primary Care Provider: NATACHA CORMIER MD [Primary Care Provider] - Follow up as needed TRAVEL OUTSIDE OF THE [place] IN LAST 30 DAYS: No - HPI Notes: Patient is a 63-year-old female with multiple medical issues brought into the emergency department for evaluation. Evidently she rolled out of bed and struck her head. She is unsure as to whether or not she lost consciousness. She complains of pain in her head. The patient is also started complaining of pain in her chest since being here. She states that happens whenever "someone moves around." She states that sharp in nature, and is not a new pain for her. She has had some loose stools and diarrhea as well. This is been ongoing for several weeks. She has discussed it with her primary care doctor. No fevers or chills. No recent antibiotic therapy. No abnormal travel or ingestions. She denies any melena hematochezia. Patient is that she did not take any of her medications yet today, she states she was awoken by this fall. She states primarily she just feels weak. - Related Data Allergies/Adverse Reactions: No Known Allergies Allergy (Verified 01/17/19 15:35) Past Medical History - General Information source: Patient - Social History Smoking Status: Never Smoker Family History: CAD, DM, Hypertension Patient has suicidal ideation: No Patient has homicidal ideation: No - Past Medical History Cardiac Medical History: Reports: Hx Congestive Heart Failure, Hx Coronary Artery Disease, Hx Hypercholesterolemia, Hx Hypertension Denies: Hx Atrial Fibrillation, Hx DVT, Hx Heart Attack, Hx Peripheral Vascular Disease, Hx Pulmonary Embolism Pulmonary Medical History: Reports: Hx Asthma, Hx Respiratory Failure, Hx Sleep Apnea - Not using CPAP at home Denies: Hx Bronchitis, Hx COPD, Hx Pneumonia Neurological Medical History: Denies: Hx Cerebrovascular Accident, Hx Seizures Endocrine Medical History: Reports: Hx Diabetes Mellitus Type 2. Denies: Hx Diabetes Mellitus Type 1, Hx Hyperthyroidism, Hx Hypothyroidism Renal/ Medical History: Denies: Hx Peritoneal Dialysis GI Medical History: Denies: Hx Cirrhosis, Hx Crohn's Disease, Hx Hepatitis, Hx Ulcerative Colitis Musculoskeletal Medical History: Reports Hx Arthritis, Denies Hx Gout Skin Medical History: Denies Hx Eczema, Denies Hx Psoriasis Psychiatric Medical History: Reports: Hx Depression Infectious Medical History: Denies: Hx Hepatitis Past Surgical History: Reports: Hx Cholecystectomy, Hx Tonsillectomy, Hx Tubal Ligation, Other - Carpal tunnel - Immunizations Hx Diphtheria, Pertussis, Tetanus Vaccination: Yes Review of Systems - Review of Systems Constitutional: See HPI EENT: No symptoms reported Cardiovascular: See HPI Respiratory: No symptoms reported Gastrointestinal: See HPI Genitourinary: No symptoms reported Musculoskeletal: No symptoms reported Skin: No symptoms reported Neurological/Psychological: No symptoms reported Physical Exam - Vital signs Vitals: Temp Pulse Resp BP Pulse Ox 97.8 F 77 16 192/89 H 94 03/14/19 09:50 03/14/19 09:50 03/14/19 09:50 03/14/19 09:50 03/14/19 09:50 - Notes Notes: This is a morbidly obese 63-year-old female who appears her stated age in no acute distress. She is extremely disheveled, despite being cleaned still has traces of stool on her feet. Vital signs reviewed, please refer to chart. Head is normocephalic. She has a moderate sized hematoma to the left frontal region with associated ecchymosis. No other facial tenderness to palpation, orbits are intact. Pupils equal round, reactive to light. Nares are patent without septal hematoma. Neck is supple without meningismus. No midline tenderness or step- off, no paraspinal musculature tenderness is appreciated. Heart is regular rate and rhythm. Lungs are clear to auscultation bilaterally. Abdomen is soft, nontender, normoactive bowel sounds throughout. Extremities without cyanosis, clubbing. Posterior calves are nontender. Peripheral pulses are equal. Skin is warm and dry. Patient is awake, alert, oriented x3. Cranial nerves II - XII are grossly intact without focal neurological deficits. Strength is plus 4 out of 5 bilateral upper and lower extremities. Sensation is intact. Reflexes symmetrical. Intact [id number], rapid alternating movements, [id number]. Course - Re-evaluation Re-evalutation: 03/14/19 12:39 Patient presents emergency department for evaluation. She has multiple medical issues. She is hypertensive, but she has not taken her medications at home yet. I am waiting for her CT scan of her head, ordered secondary to her head injury. If it does not reveal any signs of significant intracranial injury, we will go ahead and treat her with her normal antihypertensive medications. Otherwise, laboratory investigations and EKG obtained, patient is stable. We will continue to monitor. 03/14/19 15:20 Laboratory investigations were obtained. Her renal function looks improved over what it has been in the past. Her CT scan was unremarkable. Her urinalysis did reveal some white blood cells. I reviewed prior urine cultures, will treat with ceftriaxone and then Keflex at home. Her chest x-ray was read as some failure as well as infiltrative process. This infiltrative process is been chronically there for some time. This patient is oxygen dependent but she is not short of breath. She is not been coughing. She has an appointment with pulmonology. I am not impressed that this is an acute infiltrative process that requires treatment. Her blood pressure is elevated here, but again she has not had her antihypertensives. She will be administered those as well. Otherwise, will treat for UTI, closed head injury evaluation is unremarkable. She is to follow- up closely with primary care, return to the ED with worsening or new concerning symptoms of any sort. - Vital Signs Vital signs: Temp Pulse Resp BP Pulse Ox 97.8 F 77 17 182/90 H 94 03/14/19 09:50 03/14/19 09:50 03/14/19 12:01 03/14/19 12:01 03/14/19 12:15 - Laboratory Result Diagrams: 03/14/19 12:36 03/14/19 12:36 Laboratory results interpreted by me: 03/14/19 03/14/19 03/14/19 12:36 12:36 12:36 RBC 3.18 L Hgb 10.1 L Hct 30.2 L RDW 16.7 H Chloride 113 H BUN 27 H Creatinine 2.58 H Est GFR ( Amer) 23 L Est GFR (MDRD) Non-Af 19 L Creatine Kinase 170 H Albumin 3.2 L Urine Protein >=500 H Urine Blood MODERATE H Ur Leukocyte Esterase TRACE H - Diagnostic Test Radiology reviewed: Image reviewed, Reports reviewed Radiology results interpreted by me: 03/14/19 15:21 Chest X-Ray 03/14/19 11:49 IMPRESSION: Cardiomegaly and probable left lower lobe pneumonia. A component of vascular congestion is suspected. There are bilateral pleural effusions left greater than right. Head CT 03/14/19 11:50 IMPRESSION: 1. No acute intracranial pathology. 2. Left frontal scalp hematoma. 3. Partial fluid opacification of the bilateral mastoid air cells. EVIDENCE OF ACUTE STROKE: NO. - EKG Interpretation by Me Additional EKG results interpreted by me: 03/14/19 15:21 Sinus mechanism with a rate of 77 bpm. Left axis deviation. Nonspecific ST changes and T wave flattening. No acute elevation concerning for infarction, no significant change in compared to prior study of January 18, 2019. Discharge - Discharge Clinical Impression: Urinary tract infection Qualifiers: Urinary tract infection type: site unspecified Hematuria presence: without hematuria Qualified Code(s): N39.0 - Urinary tract infection, site not specified Closed head injury Qualifiers: Encounter type: initial encounter Qualified Code(s): S09.90XA - Unspecified injury of head, initial encounter Condition: Stable Disposition: HOME, SELF-CARE Instructions: Cephalexin ([facility]), Head Injury Precautions ([facility]), Urinary Tract Infection ([facility]) Additional Instructions: Please take all of the Keflex as prescribed until it is gone, starting this evening. Please take all of your regular medications as prescribed, with the exception of the blood pressure medications given to you here today (hydralazine and lisinopril). Follow-up with primary care this week. Follow-up with pulmonology as scheduled. You are being treated for urinary tract infection, but your chest x-ray does continue to show the pneumonia you have had for some time. 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 Return to the emergency department with worsening or new concerning symptoms of any sort. Prescriptions: Cephalexin Monohydrate [Keflex 500 mg Capsule] 500 mg PO QID #20 capsule Referrals: NATACHA CORMIER MD [Primary Care Provider] - Follow up as needed
[2019-03-14 12:55] LABS: ABSOLUTE BASOPHILS # (AUTO) 0.1 10^3/uL (0.0-0.2); ABSOLUTE EOSINOPHILS # (AUTO) 0.1 10^3/uL (0.0-0.6); ABSOLUTE LYMPHOCYTES (AUTO) 1.1 10^3/uL (0.5-4.7); ABSOLUTE MONOCYTES (AUTO) 0.6 10^3/uL (0.1-1.4); ABSOLUTE NEUT (AUTO) 4.4 10^3/uL (1.7-8.2); BASOPHILS % (AUTO) 1.1 % (0-2); HEMATOCRIT 30.2 % (36.0-47.0); HEMOGLOBIN 10.1 g/dL (12.0-15.5); MEAN CORPUSCULAR HEMOGLOBIN 31.7 pg (27.0-33.4); MEAN CORPUSCULAR HGB CONC 33.3 g/dL (32.0-36.0); MEAN CORPUSCULAR VOLUME 95 fl (80-97); MONOCYTES % (AUTO) 9.3 % (3-13); PLATELET COUNT 226 10^3/uL (150-450); RED BLOOD COUNT 3.18 10^6/uL (3.72-5.28); RED CELL DISTRIBUTION WIDTH 16.7 % (11.5-14.0); SEGMENTED NEUTROPHILS % (AUTO) 70.6 % (42-78); TOTAL CELLS COUNTED % (AUTO) 100 %; WHITE BLOOD COUNT 6.2 10^3/uL (4.0-10.5)
--- NOTE | 2019-03-14 13:08 | RADIOLOGY REPORT (SQ) ---
EXAM DESCRIPTION: CT HEAD WITHOUT COMPLETED DATE/TIME: 03/14/2019 12:55 pm REASON FOR STUDY: head injury, tinnitus COMPARISON: 01/26/2019 TECHNIQUE: Axial images acquired through the brain without intravenous contrast. Images reviewed wi th bone, brain and subdural windows. Additional sagittal and coronal reconstructions were generated. Images stored on PACS. All CT scanners at this facility use dose modulation, iterative reconstruction, and/or weight based d osing when appropriate to reduce radiation dose to as low as reasonably achievable (ALARA). [facility]: Dose Right [facility]: CareDose [facility]: Dose Right [facility]: Teradose 4D [facility]: Smart FrameBlast RADIATION DOSE: CT Rad equipment meets quality standard of care and radiation dose reduction techniq ues were employed. CTDIvol: 53.2 mGy. DLP: 964 mGy-cm. mGy. LIMITATIONS: None. FINDINGS: VENTRICLES: Normal size and contour. CEREBRUM: No masses. No hemorrhage. No midline shift. No evidence for acute infarction. Normal gra y/white matter differentiation. No areas of low density in the white matter. CEREBELLUM: No masses. No hemorrhage. No alteration of density. No evidence for acute infarction. EXTRAAXIAL SPACES: No fluid collections. No masses. ORBITS AND GLOBE: No intra- or extraconal masses. Normal contour of globe without masses. CALVARIUM: No fracture. PARANASAL SINUSES: No fluid or mucosal thickening. SOFT TISSUES: Left frontal scalp hematoma. OTHER: Partial fluid opacification of the bilateral mastoid air cells. IMPRESSION: 1. No acute intracranial pathology. 2. Left frontal scalp hematoma. 3. Partial fluid opacification of the bilateral mastoid air cells. EVIDENCE OF ACUTE STROKE: NO. COMMENT: Quality ID # [id number]: Final reports with documentation of one or more dose reduction techniques (e.g., Automated exposure control, adjustment of the mA and/or kV according to patient size, use of iterative reconstruction technique) TECHNICAL DOCUMENTATION: JOB ID: [id number] [employer]- All Rights Reserved Reading location - IP/workstation name: [email or web address]
[2019-03-14 13:10] LABS: APPEARANCE,URINE CLOUDY; BILIRUBIN,URINE NEGATIVE (NEGATIVE); COLOR,URINE YELLOW; GLUCOSE, URINE NEGATIVE (NEGATIVE); KETONES,URINE NEGATIVE (NEGATIVE); LEUKOCYTE ESTERASE,URINE TRACE (NEGATIVE); NITRITE,URINE NEGATIVE (NEGATIVE); PROTEIN,URINE >=500 mg/dL (NEGATIVE); URINE SPECIFIC GRAVITY 1.012; UROBILINOGEN,URINE NEGATIVE mg/dL (<2.0)
[2019-03-14 13:12] LABS: ALBUMIN 3.2 g/dL (3.5-5.0); ALKALINE PHOSPHATASE 85 U/L (38-126); ANION GAP 5 (5-19); ASPARTATE AMINO TRANSFERASE 25 U/L (14-36); BILIRUBIN,DIRECT 0.2 mg/dL (0.0-0.4); BILIRUBIN,TOTAL 0.7 mg/dL (0.2-1.3); BLOOD UREA NITROGEN 27 mg/dL (7-20); CALCIUM 8.4 mg/dL (8.4-10.2); CARBON DIOXIDE 26 mmol/L (22-30); CHLORIDE 113 mmol/L (98-107); CREATINE KINASE 170 U/L (30-135); GLUCOSE 93 mg/dL (75-110); TOTAL PROTEIN 6.3 g/dL (6.3-8.2)
--- NOTE | 2019-03-14 13:18 | RADIOLOGY REPORT (SQ) ---
EXAM DESCRIPTION: CHEST 2 VIEWS COMPLETED DATE/TIME: 03/14/2019 1:08 pm REASON FOR STUDY: weakness COMPARISON: 01/28/2019 EXAM PARAMETERS: NUMBER OF VIEWS: two views TECHNIQUE: Digital Frontal and Lateral radiographic views of the chest acquired. RADIATION DOSE: NA LIMITATIONS: Low lung volumes. FINDINGS: LUNGS AND PLEURA: There are bilateral pleural effusions left greater than right. There is left lower lobe airspace disease. MEDIASTINUM AND HILAR STRUCTURES: No masses or contour abnormalities. HEART AND VASCULAR STRUCTURES: Heart is enlarged. The central vascular prominence. BONES: No acute findings. HARDWARE: None in the chest. OTHER: No other significant finding. IMPRESSION: Cardiomegaly and probable left lower lobe pneumonia. A component of vascular congestion is suspected. There are bilateral pleural effusions left greater than right. TECHNICAL DOCUMENTATION: JOB ID: [id number] [email or web address]- All Rights Reserved Reading location - IP/workstation name: [email or web address]
[2019-03-14] MEDS ORDERED: CEFTRIAXONE 1 GM/D5W RTU 1 GM/50 ML RTUPB IV ONE (15:18)
[2019-03-14] MEDS ORDERED: HYDRALAZINE HCL 50 MG TABLET PO ONE (15:19)
[2019-03-14] MEDS ORDERED: LISINOPRIL 10 MG TABLET PO ONE (15:20)
--- NOTE | 2019-03-14 17:08 | ER Document Report ---
ED General - General Chief Complaint: Fall Stated Complaint: FALL Time Seen by Provider: 03/14/19 11:48 Primary Care Provider: NATACHA CORMIER MD [Primary Care Provider] - Follow up as needed TRAVEL OUTSIDE OF THE [place] IN LAST 30 DAYS: No - Related Data Allergies/Adverse Reactions: No Known Allergies Allergy (Verified 01/17/19 15:35) Past Medical History - General Information source: Patient - Social History Smoking Status: Never Smoker Family History: CAD, DM, Hypertension Patient has suicidal ideation: No Patient has homicidal ideation: No - Past Medical History Cardiac Medical History: Reports: Hx Congestive Heart Failure, Hx Coronary Artery Disease, Hx Hypercholesterolemia, Hx Hypertension Denies: Hx Atrial Fibrillation, Hx DVT, Hx Heart Attack, Hx Peripheral Vascular Disease, Hx Pulmonary Embolism Pulmonary Medical History: Reports: Hx Asthma, Hx Respiratory Failure, Hx Sleep Apnea - Not using CPAP at home Denies: Hx Bronchitis, Hx COPD, Hx Pneumonia Neurological Medical History: Denies: Hx Cerebrovascular Accident, Hx Seizures Endocrine Medical History: Reports: Hx Diabetes Mellitus Type 2. Denies: Hx Diabetes Mellitus Type 1, Hx Hyperthyroidism, Hx Hypothyroidism Renal/ Medical History: Denies: Hx Peritoneal Dialysis GI Medical History: Denies: Hx Cirrhosis, Hx Crohn's Disease, Hx Hepatitis, Hx U lcerative Colitis Musculoskeletal Medical History: Reports Hx Arthritis, Denies Hx Gout Skin Medical History: Denies Hx Eczema, Denies Hx Psoriasis Psychiatric Medical History: Reports: Hx Depression Infectious Medical History: Denies: Hx Hepatitis Past Surgical History: Reports: Hx Cholecystectomy, Hx Tonsillectomy, Hx Tubal Ligation, Other - Carpal tunnel - Immunizations Hx Diphtheria, Pertussis, Tetanus Vaccination: Yes Physical Exam - Vital signs Vitals: Temp Pulse Resp BP Pulse Ox 97.8 F 77 16 192/89 H 94 03/14/19 09:50 03/14/19 09:50 03/14/19 09:50 03/14/19 09:50 03/14/19 09:50 Course - Re-evaluation Re-evalutation: 03/17/19 12:[address] Oliverio Brewer. Somehow my name is attached to this chart. I never saw this pt nor was I involved with her care in anyway. - Vital Signs Vital signs: Temp Pulse Resp BP Pulse Ox 98.8 F 80 18 191/91 H 94 03/14/19 18:00 03/14/19 18:00 03/14/19 18:00 03/14/19 18:00 03/14/19 18:00 - Laboratory Result Diagrams: 03/14/19 12:36 03/14/19 12:36 Laboratory results interpreted by me: 03/14/19 03/14/19 03/14/19 12:36 12:36 12:36 RBC 3.18 L Hgb 10.1 L Hct 30.2 L RDW 16.7 H Chloride 113 H BUN 27 H Creatinine 2.58 H Est GFR ( Amer) 23 L Est GFR (MDRD) Non-Af 19 L Creatine Kinase 170 H Albumin 3.2 L Urine Protein >=500 H Urine Blood MODERATE H Ur Leukocyte Esterase TRACE H Discharge - Discharge Clinical Impression: Urinary tract infection Qualifiers: Urinary tract infection type: site unspecified Hematuria presence: without hematuria Qualified Code(s): N39.0 - Urinary tract infection, site not specified Closed head injury Qualifiers: Encounter type: initial encounter Qualified Code(s): S09.90XA - Unspecified injury of head, initial encounter Condition: Stable Disposition: HOME, SELF-CARE Instructions: Cephalexin ([facility]), Head Injury Precautions ([facility]), Urinary Tract Infection ([facility]) Additional Instructions: Please take all of the Keflex as prescribed until it is gone, starting this evening. Please take all of your regular medications as prescribed, with the exception of the blood pressure medications given to you here today (hydralazine and lisinopril). Follow-up with primary care this week. Follow-up with pulmonology as scheduled. You are being treated for urinary tract infection, but your chest x-ray does continue to show the pneumonia you have had for some time. 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 Return to the emergency department with worsening or new concerning symptoms of any sort. Prescriptions: Cephalexin Monohydrate [Keflex 500 mg Capsule] 500 mg PO QID #20 capsule Referrals: NATACHA CORMIER MD [Primary Care Provider] - Follow up as needed
--- NOTE | 2019-03-14 17:19 | EKG REPORT ---
SEVERITY:- ABNORMAL ECG - SINUS RHYTHM LOW VOLTAGE THROUGHOUT BORDERLINE R WAVE PROGRESSION, ANTERIOR LEADS BORDERLINE T ABNORMALITIES, ANTERIOR LEADS : Confirmed by: Nicole Rodriguez MD 14-Mar-2019 17:19:13
[2019-03-14 18:01] VITALS: BP 191/91
== END 2019-03-14 18:00 | disposition home or self-care (01) ==
LOC: ER 09:42
DX: S09.90XA Unspecified injury of head, initial encounter (principal); N39.0 Urinary tract infection, site not specified; R51 Headache; R19.7 Diarrhea, unspecified; E66.01 Morbid (severe) obesity due to excess calories; W06.XXXA Fall from bed, initial encounter; I50.9 Heart failure, unspecified; I25.10 Atherosclerotic heart disease of native coronary artery without angina pectoris; I11.0 Hypertensive heart disease with heart failure; J45.909 Unspecified asthma, uncomplicated; E11.9 Type 2 diabetes mellitus without complications
CPT/HCPCS: 93005; 99285; 96365; 36415; 82550; 85025; 80053; 81001; 84484; 71046; 70450; 93010; A9270 ×2; J0696

== ENCOUNTER 2019-03-23 16:15 | Inpatient (IN) | payer MEDICARE, MEDICAID ==
--- NOTE | 2019-03-23 16:32 | EKG REPORT ---
SEVERITY:- ABNORMAL ECG - A-FLUTTER/FIBRILLATION W/ COMPLETE AV BLOCK LOW VOLTAGE THROUGHOUT BORDERLINE R WAVE PROGRESSION, ANTERIOR LEADS BORDERLINE T ABNORMALITIES, ANTERIOR LEADS : Confirmed by: Lázaro Alston MD 23-Mar-2019 16:31:19
--- NOTE | 2019-03-23 16:52 | RADIOLOGY REPORT (SQ) ---
EXAM DESCRIPTION: CHEST SINGLE VIEW COMPLETED DATE/TIME: 03/23/2019 4:41 pm REASON FOR STUDY: bed 2 cp COMPARISON: 03/14/2019 NUMBER OF VIEWS: One view. TECHNIQUE: Single frontal radiographic image of the chest acquired. LIMITATIONS: None. FINDINGS: LUNGS AND PLEURA: Stable in appearance with persistent left retrocardiac airspace disease. MEDIASTINUM AND HILAR STRUCTURES: Stable heart size and mediastinal structures. HEART AND VASCULAR STRUCTURES: Heart remains enlarged. No failure. BONES: No acute findings. HARDWARE: None in the chest. OTHER: No other significant finding. IMPRESSION: Stable appearance of the chest with cardiomegaly and probable retrocardiac pneumonia. TECHNICAL DOCUMENTATION: JOB ID: [id number] [employer]- All Rights Reserved Reading location - IP/workstation name: [email or web address]
[2019-03-23 16:53] LABS: ABSOLUTE BASOPHILS # (AUTO) 0.1 10^3/uL (0.0-0.2); ABSOLUTE EOSINOPHILS # (AUTO) 0.1 10^3/uL (0.0-0.6); ABSOLUTE LYMPHOCYTES (AUTO) 0.8 10^3/uL (0.5-4.7); ABSOLUTE MONOCYTES (AUTO) 0.5 10^3/uL (0.1-1.4); ABSOLUTE NEUT (AUTO) 3.3 10^3/uL (1.7-8.2); BASOPHILS % (AUTO) 1.4 % (0-2); EOSINOPHILS % (AUTO) 1.7 % (0-6); HEMATOCRIT 28.6 % (36.0-47.0); HEMOGLOBIN 9.3 g/dL (12.0-15.5); LYMPHOCYTES % (AUTO) 16.4 % (13-45); MEAN CORPUSCULAR HEMOGLOBIN 31.6 pg (27.0-33.4); MEAN CORPUSCULAR HGB CONC 32.7 g/dL (32.0-36.0); MEAN CORPUSCULAR VOLUME 97 fl (80-97); MONOCYTES % (AUTO) 10.2 % (3-13); PLATELET COUNT 187 10^3/uL (150-450); RED BLOOD COUNT 2.95 10^6/uL (3.72-5.28); RED CELL DISTRIBUTION WIDTH 17.9 % (11.5-14.0); SEGMENTED NEUTROPHILS % (AUTO) 70.3 % (42-78); TOTAL CELLS COUNTED % (AUTO) 100 %; WHITE BLOOD COUNT 4.7 10^3/uL (4.0-10.5)
[2019-03-23] MEDS ORDERED: NYSTATIN CREAM 15 GM TP ONE (17:11)
[2019-03-23 17:22] LABS: ALKALINE PHOSPHATASE 100 U/L (38-126); ANION GAP 7 (5-19); ASPARTATE AMINO TRANSFERASE 20 U/L (14-36); BILIRUBIN,DIRECT 0.3 mg/dL (0.0-0.4); BILIRUBIN,TOTAL 0.5 mg/dL (0.2-1.3); BLOOD UREA NITROGEN 32 mg/dL (7-20); CALCIUM 8.5 mg/dL (8.4-10.2); CARBON DIOXIDE 25 mmol/L (22-30); CHLORIDE 113 mmol/L (98-107); CREATINE KINASE 95 U/L (30-135); GLUCOSE 111 mg/dL (75-110); POTASSIUM 4.4 mmol/L (3.6-5.0)
[2019-03-23 17:32] LABS: CREATINE KINASE MB 4.75 ng/mL (<4.55); TROPONIN I 0.016 ng/mL
[2019-03-23] MEDS ORDERED: CEFEPIME 2 GM/D5W RTU 2 GM/50 ML RTUPB IV ONE (17:56)
[2019-03-23] MEDS ORDERED: NORMAL SALINE 1000 ML 1,000 ML IV ONE (18:17)
--- NOTE | 2019-03-23 18:24 | ER Document Report ---
ED General - General Chief Complaint: Chest Pain Stated Complaint: CHEST PAIN Time Seen by Provider: 03/23/19 16:29 Primary Care Provider: NATACHA CORMIER MD [Primary Care Provider] - Follow up as needed Mode of Arrival: Medic Information source: Patient TRAVEL OUTSIDE OF THE [place] IN LAST 30 DAYS: No - HPI Notes: Patient is brought in by family due to several complaints. One is generalized weakness. The other is noncompliance with treatment due to her generalized weakness. She is also had some chest pain. Family states that patient is weak and unable to stand. They states that she does not get out of bed and sleeps m ost of the day. They state that she often lies in her own urine and stool and is unable to clean herself. Patient has not recently had fevers. No cough or congestion no shortness of breath. She was recently admitted for a pneumonia and is still on antibiotics. Patient also had some chest pain this morning. This pain is now gone. The chest pain was mild to moderate. It was left-sided. It was sharp. It did not radiate. - Related Data Allergies/Adverse Reactions: No Known Allergies Allergy (Verified 01/17/19 15:35) Home Medications: escitalopram. cephalexin. furosemide. pantoprazole. carvedilol. ezetimibe. amlodipine. 81 apirin. potassium chloride. gabapentin. cetrizine. lisinopril. myrbetriq Past Medical History - General Information source: Patient - Social History Smoking Status: Former Smoker Frequency of alcohol use: None Drug Abuse: None Family History: CAD, DM, Hypertension Patient has suicidal ideation: No Patient has homicidal ideation: No - Past Medical History Cardiac Medical History: Reports: Hx Congestive Heart Failure, Hx Coronary Artery Disease, Hx Hypercholesterolemia, Hx Hypertension Denies: Hx Atrial Fibrillation, Hx DVT, Hx Heart Attack, Hx Peripheral Vascular Disease, Hx Pulmonary Embolism Pulmonary Medical History: Reports: Hx Asthma, Hx Respiratory Failure, Hx Sleep Apnea - Not using CPAP at home Denies: Hx Bronchitis, Hx COPD, Hx Pneumonia Neurological Medical History: Denies: Hx Cerebrovascular Accident, Hx Seizures Endocrine Medical History: Reports: Hx Diabetes Mellitus Type 2. Denies: Hx Diabetes Mellitus Type 1, Hx Hyperthyroidism, Hx Hypothyroidism Renal/ Medical History: Denies: Hx Peritoneal Dialysis GI Medical History: Denies: Hx Cirrhosis, Hx Crohn's Disease, Hx Hepatitis, Hx Ulcerative Colitis Musculoskeletal Medical History: Reports Hx Arthritis, Denies Hx Gout Skin Medical History: Denies Hx Eczema, Denies Hx Psoriasis Psychiatric Medical History: Reports: Hx Depression Infectious Medical History: Denies: Hx Hepatitis Past Surgical History: Reports: Hx Cholecystectomy, Hx Tonsillectomy, Hx Tubal Ligation, Other - Carpal tunnel - Immunizations Hx Diphtheria, Pertussis, Tetanus Vaccination: Yes Review of Systems - Review of Systems Constitutional: Malaise, Weakness Cardiovascular: Chest pain. denies: Palpitations Gastrointestinal: denies: Abdominal pain, Vomiting -: Yes All other systems reviewed and negative Physical Exam - Vital signs Vitals: Pulse Ox 96 03/23/19 16:43 Interpretation: Normal - General General appearance: Appears well, Alert - HEENT Head: Normocephalic, Atraumatic Eyes: Normal Pupils: PERRL - Respiratory Respiratory status: No respiratory distress Chest status: Nontender Breath sounds: Decreased air movement Chest palpation: Normal - Cardiovascular Rhythm: Regular Heart sounds: Normal auscultation Murmur: No - Abdominal Inspection: Normal Distension: No distension Bowel sounds: Normal Tenderness: Nontender Organomegaly: No organomegaly - Back Back: Normal, Nontender - Extremities General upper extremity: Normal inspection, Nontender, Normal color, Normal ROM, Normal temperature General lower extremity: Normal inspection, Nontender, Normal color, Normal ROM, Normal temperature, Normal weight bearing. No: Ksenia's sign - Neurological Neuro grossly intact: Yes Cognition: Normal Orientation: AAOx4 [place] Coma Scale Eye Opening: Spontaneous [place] Coma Scale Verbal: Oriented [place] Coma Scale Motor: Obeys Commands [place] Coma Scale Total: 15 Speech: Normal Sensory: Normal - Psychological Associated symptoms: Normal affect, Normal mood - Skin Skin Temperature: Warm Skin Moisture: Dry Skin Color: Other - Patient has scattered ecchymosis about the extremities trunk and face. Patient states she falls frequently due to her weakness. Patient also has tender indurated erythematous areas about the buttocks perineum and external vaginal area. It appears consistent with candidal infection. Course - Re-evaluation Re-evalutation: 03/23/19 18:22 Patient presents with multiple complaints. 1. Patient has generalized weakness. The exact cause of this is not apparent although patient is morbidly obese. 2. Patient has had noncompliance with medication and therapy due to her generalized weakness and morbid obesity. This is caused her to present with some dehydration. This would be treated with IV fluids. 3. Patient still appears to have pneumonia on x-ray and will be covered with antibiotics. Her lactate is normal and she does not appear septic at this time. She is not tachycardic or hypotensive. 4. Patient has diffuse candidiasis in the inguinal rectal and vaginal areas. She will be treated with nystatin. - Vital Signs Vital signs: Temp Pulse Resp BP Pulse Ox 96 03/23/19 16:43 - Laboratory Result Diagrams: 03/23/19 16:30 03/23/19 16:30 Laboratory results interpreted by me: 03/23/19 03/23/19 03/23/19 16:30 16:30 16:30 RBC 2.95 L Hgb 9.3 L Hct 28.6 L RDW 17.9 H Chloride 113 H BUN 32 H Creatinine 3.06 H Est GFR ( Amer) 19 L Est GFR (MDRD) Non-Af 15 L Glucose 111 H Lactic Acid CK-MB (CK-2) 4.75 H Total Protein 6.0 L Albumin 3.0 L 03/23/19 16:30 RBC Hgb Hct RDW Chloride BUN Creatinine Est GFR ( Amer) Est GFR (MDRD) Non-Af Glucose Lactic Acid 0.6 L CK-MB (CK-2) Total Protein Albumin - Diagnostic Test Radiology reviewed: Image reviewed, Reports reviewed - EKG Interpretation by [place] EKG shows normal: Sinus rhythm Rate: Normal - 60 Rhythm: NSR [place]/QRS: Left axis deviation Discharge - Discharge Clinical Impression: Dehydration, Weakness, Candidiasis, Morbid obesity with BMI of 45.0-49.9, adult, Chronic kidney disease, stage IV (severe) Pneumonia Qualifiers: Pneumonia type: due to unspecified organism Laterality: unspecified laterality Lung location: unspecified part of lung Qualified Code(s): J18.9 - Pneumonia, unspecified organism Condition: Serious Disposition: ADMITTED INPATIENT Admitting Provider: Martin (Hospitalist) - day Unit Admitted: Medical Floor Referrals: NATACHA CORMIER MD [Primary Care Provider] - Follow up as needed
[2019-03-23] MEDS ORDERED: ACETAMINOPHEN 325 MG TABLET PO PRN (18:35)
[2019-03-23] MEDS ORDERED: ONDANSETRON HCL INJ/PF 4 MG/2 ML SDV IV PRN (18:35)
[2019-03-23] MEDS ORDERED: ONDANSETRON 4 MG TAB.RAPDIS PO PRN (18:35)
[2019-03-23 18:45] LABS: AMORPHOUS SEDIMENT,URINE TRACE /HPF; APPEARANCE,URINE CLOUDY; BILIRUBIN,URINE NEGATIVE (NEGATIVE); COLOR,URINE YELLOW; GLUCOSE, URINE NEGATIVE (NEGATIVE); KETONES,URINE TRACE mg/dL (NEGATIVE); PROTEIN,URINE >=500 mg/dL (NEGATIVE); URINE SPECIFIC GRAVITY 1.012; UROBILINOGEN,URINE NEGATIVE mg/dL (<2.0)
[2019-03-23] MEDS ORDERED: DEXTROSE 40% GEL 15 GM TUBE PO PRN ×2 (18:45)
[2019-03-23] MEDS ORDERED: DEXTROSE 50%-WATER 25 GM/50 ML DISP.SYRIN IV PRN ×2 (18:45)
[2019-03-23] MEDS ORDERED: GLUCAGON,HUMAN RECOMB 1 MG INJ IM PRN (18:45)
--- NOTE | 2019-03-23 18:56 | PDOC H&P ---
History of Present Illness Admission Date/PCP: NATACHA CORMIER MD History of Present Illness: FINA HERNÁNDEZ is a 63 year old female who was brought into the hospital with repeated falls generalized weakness and possible pneumonia. Patient was just discharged from the hospital on 01/29/2019 with multiple diagnoses to include a aphasia respiratory failure anemia of chronic disease chronic kidney disease hypertension orbit obesity. At the time of discharge she was feeling well asking to go home she was alert she had caregivers at home. There are states today however that since she has been home she has had multiple falls. EMS has been called about 30 times in the last 4 weeks maybe 6 weeks to help get her up off the floor. Patient and family would like her to be admitted to rehab at the time of discharge and or half-way facility. Chest x-ray today shows stable appearance and a possible retrocardiac pneumonia however patient has no history of cough fever chills sputum production or other symptoms suggestive of pneumonia. Urinalysis shows just a trace of leukocytes. Past Medical History Cardiac Medical History: Reports: Congestive Heart Failure, Coronary Artery Disease, Hyperlipidema, Hypertension Denies: Atrial Fibrillation, DVT, Myocardial Infarction, Peripheral Vascular Disease, Pulmonary Embolism Pulmonary Medical History: Reports: Asthma, Respiratory Failure, Sleep Apnea - Not using CPAP at home Denies: Bronchitis, Chronic Obstructive Pulmonary Disease (COPD), Pneumonia Neurological Medical History: Denies: Seizures Endocrine Medical History: Reports: Diabetes Mellitus Type 2 Denies: Diabetes Mellitus Type 1, Hyperthyroidism, Hypothyroidism GI Medical History: Denies: Cirrhosis, Crohn's Disease, Hepatitis, Ulcerative Colitis Musculoskeltal Medical History: Reports: Arthritis Denies: Gout Skin Medical History: Denies: Eczema, Psoriasis Psychiatric Medical History: Reports: Depression Hematology: Reports: Anemia Denies: Bleeding Tendencies Past Surgical History Past Surgical History: Reports: Cholecystectomy, Tonsillectomy, Tubal Ligation, Other - Carpal tunnel Social History Smoking Status: Former Smoker Frequency of Alcohol Use: None Hx Recreational Drug Use: No Drugs: None Hx Prescription Drug Abuse: No - Advance Directive Resuscitation Status: Full Code Family History Family History: CAD, DM, Hypertension Parental Family History Reviewed: No Children Family History Reviewed: No Sibling(s) Family History Reviewed.: No Medication/Allergy Home Medications: Albuterol Sulfate [Proair HFA Inhalation Aerosol 8.5 gm MDI] 2 puff IH Q4HP PRN 01/18/19 Amlodipine Besylate [Norvasc 5 mg Tablet] 5 mg PO DAILY 01/18/19 Aspirin [Adult Low Dose Aspirin EC] 81 mg PO DAILY 01/18/19 Carvedilol [Coreg 12.5 mg Tablet] 12.5 mg PO Q12 01/18/19 Escitalopram Oxalate [Lexapro] 20 mg PO DAILY 01/18/19 Ezetimibe [Zetia 10 mg Tablet] 10 mg PO DAILY 01/18/19 Furosemide [Lasix 40 mg Tablet] 40 mg PO DAILY 01/18/19 Gabapentin [Neurontin 300 mg Capsule] 600 mg PO QPM 01/18/19 Gabapentin [Neurontin 300 mg Capsule] 900 mg PO QAM 01/18/19 Insulin Glargine,Hum.rec.anlog [Lantus Insulin 100 Unit/1 ml 10 ml] 15 units SQ QAM 01/18/19 Lisinopril [Zestril] 40 mg PO DAILY 01/18/19 Mirabegron [Myrbetriq] 50 mg PO DAILY 01/18/19 Pantoprazole Sodium [Protonix [address] Tablet] 40 mg PO DAILY 01/18/19 Potassium Chloride [Klor-Con M20] 20 meq PO DAILY 01/18/19 Tramadol HCl [Ultram 50 mg Tablet] 50 mg PO Q8 01/18/19 Guaifenesin [Mucinex Sr 600 mg Tablet.sa] 600 mg PO Q12 tablet.sa 01/29/19 Guaifenesin [Robitussin Syrup 200 mg/10 ml Ud Cup] 200 mg PO QIDP PRN udc 01/29/19 Hydralazine HCl [Apresoline 50 mg Tablet] 50 mg PO Q8 30 Days #90 tablet 01/29/19 Polyethylene Glycol 3350 [Miralax Powder 17 gm/Packet] 17 gm PO DAILY powd.pack 01/29/19 Cephalexin Monohydrate [Keflex 500 mg Capsule] 500 mg PO QID #20 capsule 03/14/19 Allergies/Adverse Reactions: No Known Allergies Allergy (Verified 01/17/19 15:35) Review of Systems Constitutional: PRESENT: weakness. ABSENT: chills, fever(s), headache(s), weight gain, weight loss Respiratory: ABSENT: cough, hemoptysis Gastrointestinal: ABSENT: abdominal pain, constipation, diarrhea, hematemesis, hematochezia, nausea, vomiting Neurological: PRESENT: weakness - Generalized Psychiatric: ABSENT: anxiety, depression, homidical ideation, suicidal ideation Physical Exam Vital Signs: Temp Pulse Resp BP Pulse Ox 96 03/23/19 16:43 General appearance: PRESENT: no acute distress, other - Patient is awake alert and very pleasant. She has resigned to the fact that she will be going to a rehab or half-way facility in 3 to 4 days once we have adjusted her medications and started treatment for possible pneumonia Eye exam: PRESENT: other - Bruising about the left side of face the left shoulder Respiratory exam: PRESENT: clear to auscultation vadim. ABSENT: rales, rhonchi, wheezes Cardiovascular exam: PRESENT: RRR. ABSENT: diastolic murmur, rubs, systolic murmur Neurological exam: PRESENT: alert, awake, oriented to person, oriented to place, oriented to time, oriented to situation, CN II-XII grossly intact. ABSENT: motor sensory deficit Psychiatric exam: PRESENT: appropriate affect, normal mood. ABSENT: homicidal ideation, suicidal ideation Results Laboratory Results: 03/23/19 16:30 03/23/19 16:30 03/23/19 03/23/19 03/23/19 16:30 16:30 16:30 WBC 4.7 RBC 2.95 L Hgb 9.3 L Hct 28.6 L MCV 97 MCH 31.6 MCHC 32.7 RDW 17.9 H Plt Count 187 Seg Neutrophils % 70.3 Sodium 144.7 Potassium 4.4 Chloride 113 H Carbon Dioxide 25 Anion Gap 7 BUN 32 H Creatinine 3.06 H Est GFR ( Amer) 19 L Glucose 111 H Lactic Acid 0.6 L Calcium 8.5 Total Bilirubin 0.5 AST 20 Alkaline Phosphatase 100 Total Protein 6.0 L Albumin 3.0 L 03/23/19 03/23/19 16:30 16:30 Creatine Kinase 95 CK-MB (CK-2) 4.75 H Troponin I 0.016 Impressions: Chest X-Ray 03/23/19 16:17 IMPRESSION: Stable appearance of the chest with cardiomegaly and probable retrocardiac pneumonia. Assessment and Plan - Diagnosis (1) Chronic kidney disease, stage IV (severe) Is this a current diagnosis for this admission?: Yes (2) Morbid obesity with BMI of 45.0-49.9, adult Is this a current diagnosis for this admission?: Yes (3) Pneumonia Qualifiers: Pneumonia type: due to unspecified organism Laterality: unspecified laterality Lung location: unspecified part of lung Qualified Code(s): J18.9 - Pneumonia, unspecified organism Is this a current diagnosis for this admission?: Yes (4) Weakness Is this a current diagnosis for this admission?: Yes (5) Acute UTI (urinary tract infection) Is this a current diagnosis for this admission?: Yes (7) Hypertension Is this a current diagnosis for this admission?: Yes - Plan Summary Summary: 03/23/2019 Patient's BUN and creatinine is slightly elevated I will start gentle hydration, broad-spectrum IV antibiotics, and in a consult for discharge planning as well as physical therapy. Start the process for placement at the time of discharge. I anticipate patient needing 3 to 5 days of hospitalization Patient is medically stable to transfer to the floor - Time Time Spent with patient: 35 or more minutes
[2019-03-23] MEDS: NORMAL SALINE 1000 ML 1,000 ML IV PRN (19:36)
[2019-03-23 19:51] LABS: INTERNATIONAL RATION (INR) 1.12; PROTHROMBIN TIME 14.5 SEC (11.4-15.4)
[2019-03-23] MEDS: INSULIN LISPRO 100 UNIT/ML 3 ML VIAL SUBCUT SCH (22:29)
[2019-03-23] MEDS: FAMOTIDINE 20 MG TABLET PO SCH (22:40)
[2019-03-23] MEDS: HEPARIN SOD (PORCINE) 5,000 UNIT/ML 1 ML VIAL SUBCUT SCH (22:40)
[2019-03-24] MEDS ORDERED: MEROPENEM 1 GM in NORMAL SALINE 50 ML IV SCH (06:00)
[2019-03-24 06:06] LABS: ABSOLUTE BASOPHILS # (AUTO) 0.1 10^3/uL (0.0-0.2); ABSOLUTE EOSINOPHILS # (AUTO) 0.2 10^3/uL (0.0-0.6); ABSOLUTE LYMPHOCYTES (AUTO) 1.2 10^3/uL (0.5-4.7); ABSOLUTE MONOCYTES (AUTO) 0.5 10^3/uL (0.1-1.4); BASOPHILS % (AUTO) 1.3 % (0-2); EOSINOPHILS % (AUTO) 4.4 % (0-6); HEMATOCRIT 24.6 % (36.0-47.0); HEMOGLOBIN 8.1 g/dL (12.0-15.5); LYMPHOCYTES % (AUTO) 30.3 % (13-45); MEAN CORPUSCULAR HEMOGLOBIN 31.4 pg (27.0-33.4); MEAN CORPUSCULAR HGB CONC 32.7 g/dL (32.0-36.0); MEAN CORPUSCULAR VOLUME 96 fl (80-97); MONOCYTES % (AUTO) 13.8 % (3-13); PLATELET COUNT 156 10^3/uL (150-450); RED BLOOD COUNT 2.56 10^6/uL (3.72-5.28); RED CELL DISTRIBUTION WIDTH 17.8 % (11.5-14.0); SEGMENTED NEUTROPHILS % (AUTO) 50.2 % (42-78); TOTAL CELLS COUNTED % (AUTO) 100 %
[2019-03-24] MEDS: NORMAL SALINE 1000 ML 1,000 ML IV PRN ×2 (06:14→17:44)
[2019-03-24] MEDS: HEPARIN SOD (PORCINE) 5,000 UNIT/ML 1 ML VIAL SUBCUT SCH ×3 (06:15→21:21)
[2019-03-24] MEDS ORDERED: MEROPENEM 1 GM VIAL ONE (06:16)
[2019-03-24 06:20] LABS: BLOOD UREA NITROGEN 31 mg/dL (7-20); CALCIUM 7.9 mg/dL (8.4-10.2); GLUCOSE 74 mg/dL (75-110)
[2019-03-24] MEDS: MEROPENEM 1 GM in NORMAL SALINE 50 ML IV SCH ×2 (06:21→17:43)
[2019-03-24 06:25] LABS: CARBON DIOXIDE 25 mmol/L (22-30); CHLORIDE 115 mmol/L (98-107)
[2019-03-24 06:30] LABS: ANION GAP 4 (5-19)
[2019-03-24] MEDS: INSULIN LISPRO 100 UNIT/ML 3 ML VIAL SUBCUT SCH ×4 (08:53→21:25)
[2019-03-24] MEDS: FAMOTIDINE 20 MG TABLET PO SCH (10:11)
[2019-03-24] MEDS: DOCUSATE SODIUM 100 MG CAPSULE PO SCH (10:27)
[2019-03-24] MEDS ORDERED: ONDANSETRON 4 MG TAB.RAPDIS PO PRN (12:30)
[2019-03-24] MEDS ORDERED: ONDANSETRON HCL INJ/PF 4 MG/2 ML SDV IV PRN (12:30)
--- NOTE | 2019-03-24 14:33 | PDOC PROGRESS REPORT ---
Subjective Progress Note for:: 03/24/19 Reason For Visit: REPEATED FALLS, PNEUMONIA, OBESITY, GENERALIZED 03/24/2019 . Repeated falls with inability to get up off the floor by herself, possible pneumonia, obesity, generalized weakness, hypertension Physical Exam Vital Signs: Temp Pulse Resp BP Pulse Ox 97.2 F 66 19 174/73 H 93 03/24/19 11:09 03/24/19 11:09 03/24/19 11:09 03/24/19 11:09 03/24/19 11:09 Intake & Output 03/23/19 03/24/19 03/25/19 06:59 06:59 06:59 Intake Total 2520 480 Output Total 1000 300 Balance 1520 180 Weight 126.8 kg General appearance: PRESENT: no acute distress Respiratory exam: PRESENT: decreased breath sounds Cardiovascular exam: PRESENT: RRR. ABSENT: diastolic murmur, rubs, systolic murmur Neurological exam: PRESENT: alert, awake, oriented to person, oriented to place, oriented to time, oriented to situation, CN II-XII grossly intact, other - Lethargic but arouses easily. ABSENT: motor sensory deficit Psychiatric exam: PRESENT: flat affect Results Laboratory Results: 03/24/19 05:19 03/24/19 05:19 03/23/19 03/23/19 03/23/19 16:25 16:30 16:30 WBC 4.7 RBC 2.95 L Hgb 9.3 L Hct 28.6 L MCV 97 MCH 31.6 MCHC 32.7 RDW 17.9 H Plt Count 187 Seg Neutrophils % 70.3 Sodium 144.7 Potassium 4.4 Chloride 113 H Carbon Dioxide 25 Anion Gap 7 BUN 32 H Creatinine 3.06 H Est GFR ( Amer) 19 L Glucose 111 H Lactic Acid Calcium 8.5 Magnesium Total Bilirubin 0.5 AST 20 Alkaline Phosphatase 100 Total Protein 6.0 L Albumin 3.0 L TSH 5.67 H Urine Color Urine Appearance Urine pH Ur Specific [place] Urine Protein Urine Glucose (UA) Urine Ketones Urine Blood 03/23/19 03/23/19 03/24/19 16:30 18:00 05:19 WBC 4.0 RBC 2.56 L Hgb 8.1 L Hct 24.6 L MCV 96 MCH 31.4 MCHC 32.7 RDW 17.8 H Plt Count 156 Seg Neutrophils % 50.2 Sodium Potassium Chloride Carbon Dioxide Anion Gap BUN Creatinine Est GFR ( Amer) Glucose Lactic Acid 0.6 L Calcium Magnesium Total Bilirubin AST Alkaline Phosphatase Total Protein Albumin TSH Urine Color YELLOW Urine Appearance CLOUDY Urine pH 5.0 Ur Specific [place] 1.012 Urine Protein >=500 H Urine Glucose (UA) NEGATIVE Urine Ketones TRACE H Urine Blood SMALL H 03/24/19 05:19 WBC RBC Hgb Hct MCV MCH MCHC RDW Plt Count Seg Neutrophils % Sodium 144.2 Potassium 4.0 Chloride 115 H Carbon Dioxide 25 Anion Gap 4 L BUN 31 H Creatinine 2.84 H Est GFR ( Amer) 20 L Glucose 74 L Lactic Acid Calcium 7.9 L Magnesium 1.7 Total Bilirubin AST Alkaline Phosphatase Total Protein Albumin TSH Urine Color Urine Appearance Urine pH Ur Specific [place] Urine Protein Urine Glucose (UA) Urine Ketones Urine Blood 03/23/19 03/23/19 03/23/19 16:30 16:30 20:24 Creatine Kinase 95 CK-MB (CK-2) 4.75 H Troponin I 0.016 0.018 Impressions: Chest X-Ray 03/23/19 16:17 IMPRESSION: Stable appearance of the chest with cardiomegaly and probable retrocardiac pneumonia. Assessment and Plan - Diagnosis (1) Chronic kidney disease, stage IV (severe) Is this a current diagnosis for this admission?: Yes (2) Morbid obesity with BMI of 45.0-49.9, adult Is this a current diagnosis for this admission?: Yes (3) Pneumonia Qualifiers: Pneumonia type: due to unspecified organism Laterality: unspecified laterality Lung location: unspecified part of lung Qualified Code(s): J18.9 - Pneumonia, unspecified organism Is this a current diagnosis for this admission?: Yes (4) Weakness Is this a current diagnosis for this admission?: Yes (5) Acute UTI (urinary tract infection) Is this a current diagnosis for this admission?: Yes (7) Hypertension Is this a current diagnosis for this admission?: Yes - Plan Summary Summary: 03/23/2019 Patient's BUN and creatinine is slightly elevated I will start gentle hydration, broad-spectrum IV antibiotics, and in a consult for discharge planning as well as physical therapy. Start the process for placement at the time of discharge. I anticipate patient needing 3 to 5 days of hospitalization Patient is medically stable to transfer to the floor 03/24/2019 Vital signs temperature 97.6, pulse 65, blood pressure 146/62, O2 sat 93% on 2 L nasal cannula White blood cell count normal at 4000 hemoglobin is stable at 8.1 Creatinine is improved from 3.06 now 2.84. IV fluids are normal saline running at 100 mL's per hour Urine culture shows no growth in 1 day blood cultures are pending Patient currently on meropenem IV antibiotic Home medications have been resumed today - Time Time Spent with patient: 25-34 minutes
[2019-03-24] MEDS: HYDRALAZINE HCL 50 MG TABLET PO SCH ×2 (15:18→21:20)
[2019-03-24] MEDS: CARVEDILOL 12.5 MG TABLET PO SCH (21:20)
[2019-03-24] MEDS: GABAPENTIN 300 MG CAPSULE PO SCH (21:21)
[2019-03-25] MEDS: MEROPENEM 1 GM in NORMAL SALINE 50 ML IV SCH ×2 (06:41→18:09)
[2019-03-25] MEDS: HEPARIN SOD (PORCINE) 5,000 UNIT/ML 1 ML VIAL SUBCUT SCH ×3 (06:41→22:19)
[2019-03-25] MEDS: HYDRALAZINE HCL 50 MG TABLET PO SCH ×3 (06:41→22:19)
[2019-03-25] MEDS: INSULIN LISPRO 100 UNIT/ML 3 ML VIAL SUBCUT SCH ×4 (07:36→22:19)
[2019-03-25] MEDS ORDERED: INSULIN GLARGINE,HUM.REC.ANLOG 1,000 UNIT/10 ML VIAL SUBCUT SCH (08:00)
[2019-03-25] MEDS ORDERED: GABAPENTIN 300 MG CAPSULE PO SCH (08:00)
[2019-03-25] MEDS ORDERED: INSULIN GLARGINE,HUM.REC.ANLOG 1,000 UNIT/10 ML VIAL (PYX) SUBCUT ONE (08:00)
[2019-03-25] MEDS: LISINOPRIL 10 MG TABLET PO SCH (09:50)
[2019-03-25] MEDS: AMLODIPINE BESYLATE 10 MG TABLET PO SCH (09:50)
[2019-03-25] MEDS: FAMOTIDINE 20 MG TABLET PO SCH (09:50)
[2019-03-25] MEDS: FUROSEMIDE 40 MG TABLET PO SCH (09:50)
[2019-03-25] MEDS: DOCUSATE SODIUM 100 MG CAPSULE PO SCH (09:51)
[2019-03-25] MEDS: ESCITALOPRAM OXALATE 10 MG TABLET PO SCH (09:51)
[2019-03-25] MEDS: CARVEDILOL 12.5 MG TABLET PO SCH ×2 (09:51→22:19)
[2019-03-25] MEDS: ASPIRIN 81 MG TABLET, ENT COATED PO SCH (09:51)
[2019-03-25] MEDS: GABAPENTIN 300 MG CAPSULE PO SCH ×2 (09:51→22:19)
[2019-03-25] MEDS ORDERED: (PENDING PHARMACY ID) (Lisinopril [Zestril] 40 MG) PO SCH (10:00)
[2019-03-25] MEDS ORDERED: (PENDING PHARMACY ID) (Mirabegron [Myrbetriq] 50 MG) PO SCH (10:00)
--- NOTE | 2019-03-25 13:19 | PDOC PROGRESS REPORT ---
Subjective Progress Note for:: 03/25/19 Reason For Visit: REPEATED FALLS, PNEUMONIA, OBESITY, GENERALIZED 03/25/2019 Repeated falls, generalized weakness, obesity, pneumonia Physical Exam Vital Signs: Temp Pulse Resp BP Pulse Ox 98.2 F 65 19 146/60 H 94 03/25/19 11:47 03/25/19 11:47 03/25/19 11:47 03/25/19 11:47 03/25/19 11:47 Intake & Output 03/24/19 03/25/19 03/26/19 06:59 06:59 06:59 Intake Total 2570 2080 50 Output Total 1000 945 Balance 1570 1135 50 Weight 126.8 kg 126.6 kg General appearance: PRESENT: no acute distress Respiratory exam: PRESENT: decreased breath sounds Cardiovascular exam: PRESENT: RRR. ABSENT: diastolic murmur, rubs, systolic murmur Neurological exam: PRESENT: alert, awake, oriented to person, oriented to place, oriented to time, oriented to situation, CN II-XII grossly intact. ABSENT: motor sensory deficit Psychiatric exam: PRESENT: appropriate affect, normal mood. ABSENT: homicidal ideation, suicidal ideation Results Laboratory Results: 03/24/19 05:19 03/24/19 05:19 03/23/19 03/23/19 03/23/19 16:30 16:30 20:24 Creatine Kinase 95 CK-MB (CK-2) 4.75 H Troponin I 0.016 0.018 Impressions: Chest X-Ray 03/23/19 16:17 IMPRESSION: Stable appearance of the chest with cardiomegaly and probable retrocardiac pneumonia. Assessment and Plan - Diagnosis (1) Chronic kidney disease, stage IV (severe) Is this a current diagnosis for this admission?: Yes (2) Morbid obesity with BMI of 45.0-49.9, adult Is this a current diagnosis for this admission?: Yes (3) Pneumonia Qualifiers: Pneumonia type: due to unspecified organism Laterality: unspecified laterality Lung location: unspecified part of lung Qualified Code(s): J18.9 - Pneumonia, unspecified organism Is this a current diagnosis for this admission?: Yes (4) Weakness Is this a current diagnosis for this admission?: Yes (5) Acute UTI (urinary tract infection) Is this a current diagnosis for this admission?: Yes (7) Hypertension Is this a current diagnosis for this admission?: Yes - Plan Summary Summary: 03/23/2019 Patient's BUN and creatinine is slightly elevated I will start gentle hydration, broad-spectrum IV antibiotics, and in a consult for discharge planning as well as physical therapy. Start the process for placement at the time of discharge. I anticipate patient needing 3 to 5 days of hospitalization Patient is medically stable to transfer to the floor 03/24/2019 Vital signs temperature 97.6, pulse 65, blood pressure 146/62, O2 sat 93% on 2 L nasal cannula White blood cell count normal at 4000 hemoglobin is stable at 8.1 Creatinine is improved from 3.06 now 2.84. IV fluids are normal saline running at 100 mL's per hour Urine culture shows no growth in 1 day blood cultures are pending Patient currently on meropenem IV antibiotic Home medications have been resumed today 03/25/2019 Vital signs remained stable O2 sat 93% on 2 L nasal cannula Labs from yesterday are stable and will be repeated tomorrow morning Urine culture remains negative although should be reported out today final pathology Day 2 of IV antibiotics meropenem Discharge planning is actively working for placement This morning patient was alert and oriented and we discussed her care - Time Time Spent with patient: 25-34 minutes
[2019-03-26] MEDS: HYDRALAZINE HCL 50 MG TABLET PO SCH ×3 (05:58→21:19)
[2019-03-26] MEDS: MEROPENEM 1 GM in NORMAL SALINE 50 ML IV SCH ×2 (05:59→18:28)
[2019-03-26] MEDS: HEPARIN SOD (PORCINE) 5,000 UNIT/ML 1 ML VIAL SUBCUT SCH ×3 (05:59→21:19)
[2019-03-26 06:58] LABS: ABSOLUTE BASOPHILS # (AUTO) 0.1 10^3/uL (0.0-0.2); ABSOLUTE EOSINOPHILS # (AUTO) 0.2 10^3/uL (0.0-0.6); ABSOLUTE LYMPHOCYTES (AUTO) 1.4 10^3/uL (0.5-4.7); ABSOLUTE MONOCYTES (AUTO) 0.8 10^3/uL (0.1-1.4); ABSOLUTE NEUT (AUTO) 2.2 10^3/uL (1.7-8.2); BASOPHILS % (AUTO) 1.1 % (0-2); EOSINOPHILS % (AUTO) 4.8 % (0-6); HEMATOCRIT 25.8 % (36.0-47.0); HEMOGLOBIN 8.4 g/dL (12.0-15.5); LYMPHOCYTES % (AUTO) 30.2 % (13-45); MEAN CORPUSCULAR HEMOGLOBIN 31.7 pg (27.0-33.4); MEAN CORPUSCULAR HGB CONC 32.3 g/dL (32.0-36.0); MEAN CORPUSCULAR VOLUME 98 fl (80-97); MONOCYTES % (AUTO) 16.3 % (3-13); PLATELET COUNT 165 10^3/uL (150-450); RED BLOOD COUNT 2.64 10^6/uL (3.72-5.28); RED CELL DISTRIBUTION WIDTH 17.9 % (11.5-14.0); SEGMENTED NEUTROPHILS % (AUTO) 47.6 % (42-78); TOTAL CELLS COUNTED % (AUTO) 100 %; WHITE BLOOD COUNT 4.7 10^3/uL (4.0-10.5)
[2019-03-26 07:28] LABS: ANION GAP 7 (5-19); BLOOD UREA NITROGEN 34 mg/dL (7-20); CALCIUM 8.1 mg/dL (8.4-10.2); CARBON DIOXIDE 20 mmol/L (22-30); CHLORIDE 115 mmol/L (98-107); GLUCOSE 71 mg/dL (75-110); POTASSIUM 4.3 mmol/L (3.6-5.0)
[2019-03-26] MEDS: INSULIN LISPRO 100 UNIT/ML 3 ML VIAL SUBCUT SCH ×4 (07:36→21:22)
[2019-03-26] MEDS: DOCUSATE SODIUM 100 MG CAPSULE PO SCH (09:31)
[2019-03-26] MEDS: ASPIRIN 81 MG TABLET, ENT COATED PO SCH (09:31)
[2019-03-26] MEDS: GABAPENTIN 300 MG CAPSULE PO SCH ×2 (09:31→21:19)
[2019-03-26] MEDS: ESCITALOPRAM OXALATE 10 MG TABLET PO SCH (09:31)
[2019-03-26] MEDS: FAMOTIDINE 20 MG TABLET PO SCH (09:31)
[2019-03-26] MEDS: FUROSEMIDE 40 MG TABLET PO SCH (09:32)
[2019-03-26] MEDS: CARVEDILOL 12.5 MG TABLET PO SCH ×2 (09:32→21:18)
[2019-03-26] MEDS: LISINOPRIL 10 MG TABLET PO SCH (09:32)
[2019-03-26] MEDS: AMLODIPINE BESYLATE 10 MG TABLET PO SCH (09:32)
[2019-03-26] MEDS: INSULIN GLARGINE,HUM.REC.ANLOG 1,000 UNIT/10 ML VIAL SUBCUT SCH (11:53)
--- NOTE | 2019-03-26 16:02 | PDOC PROGRESS REPORT ---
Subjective Progress Note for:: 03/26/19 Reason For Visit: REPEATED FALLS, PNEUMONIA, OBESITY, GENERALIZED 03/26/2019 Generalized weakness, obesity, repeated falls, probable pneumonia Physical Exam Vital Signs: Temp Pulse Resp BP Pulse Ox 98.2 F 75 18 151/67 H 96 03/26/19 12:00 03/26/19 12:00 03/26/19 12:00 03/26/19 12:00 03/26/19 12:00 Intake & Output 03/25/19 03/26/19 03/27/19 06:59 06:59 06:59 Intake Total 2080 980 410 Output Total 945 815 Balance 1135 165 410 Weight 126.6 kg 125.5 kg General appearance: PRESENT: no acute distress, other - Beeping but arouses easily Respiratory exam: PRESENT: decreased breath sounds Cardiovascular exam: PRESENT: RRR. ABSENT: diastolic murmur, rubs, systolic murmur Neurological exam: PRESENT: alert, awake, oriented to person, oriented to place, oriented to time, oriented to situation, CN II-XII grossly intact. ABSENT: motor sensory deficit Psychiatric exam: PRESENT: appropriate affect, normal mood. ABSENT: homicidal ideation, suicidal ideation Results Laboratory Results: 03/26/19 04:57 03/26/19 04:57 03/26/19 03/26/19 04:57 04:57 WBC 4.7 RBC 2.64 L Hgb 8.4 L Hct 25.8 L MCV 98 H MCH 31.7 MCHC 32.3 RDW 17.9 H Plt Count 165 Seg Neutrophils % 47.6 Sodium 142.0 Potassium 4.3 Chloride 115 H Carbon Dioxide 20 L Anion Gap 7 BUN 34 H Creatinine 2.60 H Est GFR ( Amer) 22 L Glucose 71 L Calcium 8.1 L 03/23/19 18:00 Catheterized Urine Urine Culture - Final Yeast, Not Mallory Albicans 03/23/19 03/23/19 03/23/19 16:30 16:30 20:24 Creatine Kinase 95 CK-MB (CK-2) 4.75 H Troponin I 0.016 0.018 Impressions: Chest X-Ray 03/23/19 16:17 IMPRESSION: Stable appearance of the chest with cardiomegaly and probable retrocardiac pneumonia. Assessment and Plan - Diagnosis (1) Chronic kidney disease, stage IV (severe) Is this a current diagnosis for this admission?: Yes (2) Morbid obesity with BMI of 45.0-49.9, adult Is this a current diagnosis for this admission?: Yes (3) Pneumonia Qualifiers: Pneumonia type: due to unspecified organism Laterality: unspecified laterality Lung location: unspecified part of lung Qualified Code(s): J18.9 - Pneumonia, unspecified organism Is this a current diagnosis for this admission?: Yes (4) Weakness Is this a current diagnosis for this admission?: Yes (5) Acute UTI (urinary tract infection) Is this a current diagnosis for this admission?: Yes (7) Hypertension Is this a current diagnosis for this admission?: Yes - Plan Summary Summary: 03/23/2019 Patient's BUN and creatinine is slightly elevated I will start gentle hydration, broad-spectrum IV antibiotics, and in a consult for discharge planning as well as physical therapy. Start the process for placement at the time of discharge. I anticipate patient needing 3 to 5 days of hospitalization Patient is medically stable to transfer to the floor 03/24/2019 Vital signs temperature 97.6, pulse 65, blood pressure 146/62, O2 sat 93% on 2 L nasal cannula White blood cell count normal at 4000 hemoglobin is stable at 8.1 Creatinine is improved from 3.06 now 2.84. IV fluids are normal saline running at 100 mL's per hour Urine culture shows no growth in 1 day blood cultures are pending Patient currently on meropenem IV antibiotic Home medications have been resumed today 03/25/2019 Vital signs remained stable O2 sat 93% on 2 L nasal cannula Labs from yesterday are stable and will be repeated tomorrow morning Urine culture remains negative although should be reported out today final pathology Day 2 of IV antibiotics meropenem Discharge planning is actively working for placement This morning patient was alert and oriented and we discussed her care 03/26/2019 Patient [facility]hab [facility] Temperature 98, pulse 65, blood pressure 134/62, O2 sat 95% on 2 L nasal cannula White count is still normal 4.7 On admission creatinine was 3.06 today it is 2.60 Glucose levels are running in the low 100s Chest x-ray on admission 3 days ago showed a pneumonia retrocardiac Day 4 of meropenem Continue treatment as above - Time Time Spent with patient: 25-34 minutes
[2019-03-27] MEDS: HEPARIN SOD (PORCINE) 5,000 UNIT/ML 1 ML VIAL SUBCUT SCH ×3 (05:41→21:25)
[2019-03-27] MEDS: MEROPENEM 1 GM in NORMAL SALINE 50 ML IV SCH ×2 (05:41→18:25)
[2019-03-27] MEDS: HYDRALAZINE HCL 50 MG TABLET PO SCH ×3 (05:41→21:26)
[2019-03-27] MEDS: INSULIN LISPRO 100 UNIT/ML 3 ML VIAL SUBCUT SCH ×4 (08:20→21:26)
[2019-03-27] MEDS: INSULIN GLARGINE,HUM.REC.ANLOG 1,000 UNIT/10 ML VIAL SUBCUT SCH (08:23)
[2019-03-27] MEDS: DOCUSATE SODIUM 100 MG CAPSULE PO SCH (10:12)
[2019-03-27] MEDS: AMLODIPINE BESYLATE 10 MG TABLET PO SCH (10:13)
[2019-03-27] MEDS: FUROSEMIDE 40 MG TABLET PO SCH (10:13)
[2019-03-27] MEDS: LISINOPRIL 10 MG TABLET PO SCH (10:13)
[2019-03-27] MEDS: FAMOTIDINE 20 MG TABLET PO SCH (10:14)
[2019-03-27] MEDS: ASPIRIN 81 MG TABLET, ENT COATED PO SCH (10:14)
[2019-03-27] MEDS: ESCITALOPRAM OXALATE 10 MG TABLET PO SCH (10:15)
[2019-03-27] MEDS: CARVEDILOL 12.5 MG TABLET PO SCH ×2 (10:15→21:25)
[2019-03-27] MEDS: GABAPENTIN 300 MG CAPSULE PO SCH (10:15)
--- NOTE | 2019-03-27 16:26 | PDOC PROGRESS REPORT ---
Subjective Progress Note for:: 03/27/19 Reason For Visit: REPEATED FALLS, PNEUMONIA, OBESITY, GENERALIZED 03/27/2019 Frequent falls, pneumonia, obesity, generalized weakness, possible pneumonia Physical Exam Vital Signs: Temp Pulse Resp BP Pulse Ox 97.9 F 62 17 126/52 H 96 03/27/19 10:38 03/27/19 10:38 03/27/19 10:38 03/27/19 10:38 03/27/19 12:50 Intake & Output 03/26/19 03/27/19 03/28/19 06:59 06:59 06:59 Intake Total 980 1120 120 Output Total 815 500 75 Balance 165 620 45 Weight 125.5 kg 129.5 kg General appearance: PRESENT: no acute distress, other - Actually sitting up in bed talking this morning Respiratory exam: PRESENT: decreased breath sounds Cardiovascular exam: PRESENT: RRR. ABSENT: diastolic murmur, rubs, systolic m urmur Neurological exam: PRESENT: alert, awake, oriented to person, oriented to place, oriented to time, oriented to situation, CN II-XII grossly intact. ABSENT: motor sensory deficit Psychiatric exam: PRESENT: appropriate affect, normal mood. ABSENT: homicidal ideation, suicidal ideation Results Laboratory Results: 03/26/19 04:57 03/26/19 04:57 03/23/19 03/23/19 03/23/19 16:30 16:30 20:24 Creatine Kinase 95 CK-MB (CK-2) 4.75 H Troponin I 0.016 0.018 Impressions: Chest X-Ray 03/23/19 16:17 IMPRESSION: Stable appearance of the chest with cardiomegaly and probable retrocardiac pneumonia. Assessment and Plan - Diagnosis (1) Chronic kidney disease, stage IV (severe) Is this a current diagnosis for this admission?: Yes (2) Morbid obesity with BMI of 45.0-49.9, adult Is this a current diagnosis for this admission?: Yes (3) Pneumonia Qualifiers: Pneumonia type: due to unspecified organism Laterality: unspecified laterality Lung location: unspecified part of lung Qualified Code(s): J18.9 - Pneumonia, unspecified organism Is this a current diagnosis for this admission?: Yes (4) Weakness Is this a current diagnosis for this admission?: Yes (5) Acute UTI (urinary tract infection) Is this a current diagnosis for this admission?: Yes (7) Hypertension Is this a current diagnosis for this admission?: Yes - Plan Summary Summary: 03/23/2019 Patient's BUN and creatinine is slightly elevated I will start gentle hydration, broad-spectrum IV antibiotics, and in a consult for discharge planning as well as physical therapy. Start the process for placement at the time of discharge. I anticipate patient needing 3 to 5 days of hospitalization Patient is medically stable to transfer to the floor 03/24/2019 Vital signs temperature 97.6, pulse 65, blood pressure 146/62, O2 sat 93% on 2 L nasal cannula White blood cell count normal at 4000 hemoglobin is stable at 8.1 Creatinine is improved from 3.06 now 2.84. IV fluids are normal saline running at 100 mL's per hour Urine culture shows no growth in 1 day blood cultures are pending Patient currently on meropenem IV antibiotic Home medications have been resumed today 03/25/2019 Vital signs remained stable O2 sat 93% on 2 L nasal cannula Labs from yesterday are stable and will be repeated tomorrow morning Urine culture remains negative although should be reported out today final pathology Day 2 of IV antibiotics meropenem Discharge planning is actively working for placement This morning patient was alert and oriented and we discussed her care 03/26/2019 Patient waiting on [facility] facility/rehab placement Temperature 98, pulse 65, blood pressure 134/62, O2 sat 95% on 2 L nasal cannula White count is still normal 4.7 On admission creatinine was 3.06 today it is 2.60 Glucose levels are running in the low 100s Chest x-ray on admission 3 days ago showed a pneumonia retrocardiac Day 4 of meropenem Continue treatment as above 03/27/2019 Patient is awake and alert. Says she cannot get out of bed due to generalized weakness O2 sat 96% on 2 L nasal cannula We will repeat labs in the morning DisCharge planning last saw the patient 2 days ago. They are working on long- term placement Clinically patient is stable to be discharged - Time Time Spent with patient: 15-24 minutes
--- NOTE | 2019-03-27 18:28 | RADIOLOGY REPORT (SQ) ---
EXAM DESCRIPTION: CHEST 2 VIEWS COMPLETED DATE/TIME: 03/27/2019 5:28 pm REASON FOR STUDY: Pneumonia follow-up COMPARISON: Chest radiographs 03/23/2019 EXAM PARAMETERS: NUMBER OF VIEWS: two views TECHNIQUE: Digital Frontal and Lateral radiographic views of the chest acquired. RADIATION DOSE: NA LIMITATIONS: none FINDINGS: LUNGS AND PLEURA: Unchanged left lower lobe consolidation. No pneumothorax. MEDIASTINUM AND HILAR STRUCTURES: Unchanged. HEART AND VASCULAR STRUCTURES: Unchanged. BONES: No acute findings. HARDWARE: None in the chest. OTHER: No other significant finding. IMPRESSION: Unchanged left lower lobe consolidation. TECHNICAL DOCUMENTATION: JOB ID: [id number] [employer]- All Rights Reserved Reading location - IP/workstation name: [email or web address]
[2019-03-28] MEDS: GABAPENTIN 300 MG CAPSULE PO SCH ×3 (00:10→22:04)
[2019-03-28] MEDS: HEPARIN SOD (PORCINE) 5,000 UNIT/ML 1 ML VIAL SUBCUT SCH ×3 (05:28→22:04)
[2019-03-28] MEDS: HYDRALAZINE HCL 50 MG TABLET PO SCH ×3 (05:28→22:03)
[2019-03-28] MEDS: MEROPENEM 1 GM in NORMAL SALINE 50 ML IV SCH ×2 (05:28→18:40)
[2019-03-28 05:35] LABS: ABSOLUTE EOSINOPHILS # (AUTO) 0.2 10^3/uL (0.0-0.6); ABSOLUTE LYMPHOCYTES (AUTO) 1.3 10^3/uL (0.5-4.7); ABSOLUTE MONOCYTES (AUTO) 0.7 10^3/uL (0.1-1.4); ABSOLUTE NEUT (AUTO) 2.5 10^3/uL (1.7-8.2); BASOPHILS % (AUTO) 0.8 % (0-2); EOSINOPHILS % (AUTO) 4.1 % (0-6); HEMATOCRIT 26.8 % (36.0-47.0); HEMOGLOBIN 8.6 g/dL (12.0-15.5); LYMPHOCYTES % (AUTO) 28.2 % (13-45); MEAN CORPUSCULAR HEMOGLOBIN 31.8 pg (27.0-33.4); MEAN CORPUSCULAR VOLUME 99 fl (80-97); MONOCYTES % (AUTO) 14.5 % (3-13); PLATELET COUNT 151 10^3/uL (150-450); RED CELL DISTRIBUTION WIDTH 18.6 % (11.5-14.0); SEGMENTED NEUTROPHILS % (AUTO) 52.4 % (42-78); TOTAL CELLS COUNTED % (AUTO) 100 %; WHITE BLOOD COUNT 4.8 10^3/uL (4.0-10.5)
[2019-03-28 07:23] LABS: BLOOD UREA NITROGEN 42 mg/dL (7-20); CALCIUM 8.2 mg/dL (8.4-10.2); GLUCOSE 88 mg/dL (75-110); POTASSIUM 4.9 mmol/L (3.6-5.0)
[2019-03-28 07:43] LABS: ANION GAP 6 (5-19); CARBON DIOXIDE 21 mmol/L (22-30); CHLORIDE 112 mmol/L (98-107)
[2019-03-28] MEDS: INSULIN LISPRO 100 UNIT/ML 3 ML VIAL SUBCUT SCH ×4 (07:51→22:04)
[2019-03-28] MEDS: INSULIN GLARGINE,HUM.REC.ANLOG 1,000 UNIT/10 ML VIAL SUBCUT SCH (07:51)
[2019-03-28] MEDS: ASPIRIN 81 MG TABLET, ENT COATED PO SCH (10:36)
[2019-03-28] MEDS: LISINOPRIL 10 MG TABLET PO SCH (10:36)
[2019-03-28] MEDS: AMLODIPINE BESYLATE 10 MG TABLET PO SCH (10:36)
[2019-03-28] MEDS: CARVEDILOL 12.5 MG TABLET PO SCH ×2 (10:36→22:03)
[2019-03-28] MEDS: FAMOTIDINE 20 MG TABLET PO SCH (10:37)
[2019-03-28] MEDS: ESCITALOPRAM OXALATE 10 MG TABLET PO SCH (10:37)
[2019-03-28] MEDS: FUROSEMIDE 40 MG TABLET PO SCH (10:37)
[2019-03-28] MEDS: DOCUSATE SODIUM 100 MG CAPSULE PO SCH (10:37)
--- NOTE | 2019-03-28 14:36 | PDOC PROGRESS REPORT ---
Subjective Progress Note for:: 03/28/19 Reason For Visit: REPEATED FALLS, PNEUMONIA, OBESITY, GENERALIZED 03/28/2019 Frequent falls, pneumonia, obesity, generalized weakness Physical Exam Vital Signs: Temp Pulse Resp BP Pulse Ox 97.6 F 56 L 17 112/47 L 95 03/28/19 10:53 03/28/19 10:53 03/28/19 10:53 03/28/19 10:53 03/28/19 10:53 Intake & Output 03/27/19 03/28/19 03/29/19 06:59 06:59 06:59 Intake Total 1170 460 Output Total 500 160 Balance 670 300 Weight 129.5 kg 142.4 kg General appearance: PRESENT: no acute distress Respiratory exam: PRESENT: clear to auscultation vadim, decreased breath sounds. ABSENT: rales, rhonchi, wheezes Cardiovascular exam: PRESENT: RRR. ABSENT: diastolic murmur, rubs, systolic murmur Neurological exam: PRESENT: alert, awake, oriented to person, oriented to place, oriented to time, oriented to situation, CN II-XII grossly intact, other - No abnormality with patient's cognitive function. ABSENT: motor sensory deficit Psychiatric exam: PRESENT: appropriate affect, normal mood. ABSENT: homicidal ideation, suicidal ideation Results Laboratory Results: 03/28/19 04:30 03/28/19 06:46 03/28/19 03/28/19 03/28/19 04:30 04:30 06:46 WBC 4.8 RBC 2.70 L Hgb 8.6 L Hct 26.8 L MCV 99 H MCH 31.8 MCHC 32.0 RDW 18.6 H Plt Count 151 Seg Neutrophils % 52.4 Sodium Cancelled 139.1 Potassium Cancelled 4.9 Chloride Cancelled 112 H Carbon Dioxide Cancelled 21 L Anion Gap Cancelled 6 BUN Cancelled 42 H Creatinine Cancelled 2.95 H Est GFR ( Amer) Cancelled 19 L Est GFR (Non-Af Amer) Cancelled Glucose Cancelled 88 Calcium Cancelled 8.2 L 03/23/19 03/23/19 03/23/19 16:30 16:30 20:24 Creatine Kinase 95 CK-MB (CK-2) 4.75 H Troponin I 0.016 0.018 Impressions: Chest X-Ray 03/27/19 07:00 IMPRESSION: Unchanged left lower lobe consolidation. Assessment and Plan - Diagnosis (1) Chronic kidney disease, stage IV (severe) Is this a current diagnosis for this admission?: Yes (2) Morbid obesity with BMI of 45.0-49.9, adult Is this a current diagnosis for this admission?: Yes (3) Pneumonia Qualifiers: Pneumonia type: due to unspecified organism Laterality: unspecified laterality Lung location: unspecified part of lung Qualified Code(s): J18.9 - Pneumonia, unspecified organism Is this a current diagnosis for this admission?: Yes (4) Weakness Is this a current diagnosis for this admission?: Yes (5) Acute UTI (urinary tract infection) Is this a current diagnosis for this admission?: Yes (7) Hypertension Is this a current diagnosis for this admission?: Yes - Plan Summary Summary: 03/23/2019 Patient's BUN and creatinine is slightly elevated I will start gentle hydration, broad-spectrum IV antibiotics, and in a consult for discharge planning as well as physical therapy. Start the process for placement at the time of discharge. I anticipate patient needing 3 to 5 days of hospitalization Patient is medically stable to transfer to the floor 03/24/2019 Vital signs temperature 97.6, pulse 65, blood pressure 146/62, O2 sat 93% on 2 L nasal cannula White blood cell count normal at 4000 hemoglobin is stable at 8.1 Creatinine is improved from 3.06 now 2.84. IV fluids are normal saline running at 100 mL's per hour Urine culture shows no growth in 1 day blood cultures are pending Patient currently on meropenem IV antibiotic Home medications have been resumed today 03/25/2019 Vital signs remained stable O2 sat 93% on 2 L nasal cannula Labs from yesterday are stable and will be repeated tomorrow morning Urine culture remains negative although should be reported out today final pathology Day 2 of IV antibiotics meropenem Discharge planning is actively working for placement This morning patient was alert and oriented and we discussed her care 03/26/2019 Patient waiting on intermediate facility/rehab placement Temperature 98, pulse 65, blood pressure 134/62, O2 sat 95% on 2 L nasal cannula White count is still normal 4.7 On admission creatinine was 3.06 today it is 2.60 Glucose levels are running in the low 100s Chest x-ray on admission 3 days ago showed a pneumonia retrocardiac Day 4 of meropenem Continue treatment as above 03/27/2019 Patient is awake and alert. Says she cannot get out of bed due to generalized weakness O2 sat 96% on 2 L nasal cannula We will repeat labs in the morning DisCharge planning last saw the patient 2 days ago. They are working on long- term placement Clinically patient is stable to be discharged 03/28/2019 Temp 97.5, pulse 57, blood pressure 109/50, O2 sat 95% on 2 L nasal cannula and/or room air CBC remained stable Electrolytes are grossly normal however BUN and creatinine are still slightly elevated. Review of the chart however shows that this is probably her baseline with her chronic kidney disease. I do not think given her fluids would be beneficial and it might actually overload her. Patient is waiting for placement. Clinically patient does not appear to be septic Day 6 of meropenem. Will give patient p.o. Diflucan's for her urine - Time Time Spent with patient: 15-24 minutes
[2019-03-28] MEDS: FLUCONAZOLE 100 MG TABLET PO SCH (18:39)
[2019-03-29] MEDS: HYDRALAZINE HCL 50 MG TABLET PO SCH ×2 (06:02→15:00)
[2019-03-29] MEDS: MEROPENEM 1 GM in NORMAL SALINE 50 ML IV SCH ×2 (06:02→18:54)
[2019-03-29] MEDS: HEPARIN SOD (PORCINE) 5,000 UNIT/ML 1 ML VIAL SUBCUT SCH ×3 (06:02→21:17)
[2019-03-29] MEDS: INSULIN LISPRO 100 UNIT/ML 3 ML VIAL SUBCUT SCH ×4 (08:00→21:18)
[2019-03-29] MEDS: INSULIN GLARGINE,HUM.REC.ANLOG 1,000 UNIT/10 ML VIAL SUBCUT SCH (08:00)
[2019-03-29] MEDS: FLUCONAZOLE 100 MG TABLET PO SCH (11:05)
[2019-03-29] MEDS: GABAPENTIN 300 MG CAPSULE PO SCH ×2 (11:06→21:17)
[2019-03-29] MEDS: ASPIRIN 81 MG TABLET, ENT COATED PO SCH (11:07)
[2019-03-29] MEDS: ESCITALOPRAM OXALATE 10 MG TABLET PO SCH (11:07)
[2019-03-29] MEDS: FAMOTIDINE 20 MG TABLET PO SCH (11:09)
[2019-03-29] MEDS: DOCUSATE SODIUM 100 MG CAPSULE PO SCH (12:45)
[2019-03-29] MEDS: CARVEDILOL 12.5 MG TABLET PO SCH ×2 (12:46→21:18)
[2019-03-29] MEDS: FUROSEMIDE 40 MG TABLET PO SCH (12:50)
[2019-03-29] MEDS: AMLODIPINE BESYLATE 10 MG TABLET PO SCH (12:51)
[2019-03-29] MEDS: LISINOPRIL 10 MG TABLET PO SCH (12:51)
--- NOTE | 2019-03-29 14:51 | RADIOLOGY REPORT (SQ) ---
EXAM DESCRIPTION: CT CHEST WITHOUT COMPLETED DATE/TIME: 03/29/2019 2:24 pm REASON FOR STUDY: further eval LL consolidation COMPARISON: 09/01/2018 TECHNIQUE: CT scan performed of the chest without intravenous contrast. Images reviewed with lung, soft tissue and bone windows. Reconstructed coronal and sagittal MPR images reviewed. All images st ored on PACS. All CT scanners at this facility use dose modulation, iterative reconstruction, and/or weight based d osing when appropriate to reduce radiation dose to as low as reasonably achievable (ALARA). [facility]: Dose Right [facility]: CareDose [facility]: Dose Right [facility]: Teradose 4D [facility]: Sarsys RADIATION DOSE: CT Rad equipment meets quality standard of care and radiation dose reduction techniq ues were employed. CTDIvol: 19.5 mGy. DLP: 670 mGy-cm. mGy. LIMITATIONS: No technical limitations. FINDINGS: LUNGS AND PLEURA: Small pleural effusions, right greater than left. Volume estimated less than 500 cc on the right. There is dependent airspace disease in both lower lobes, left greater mani n right. 16 mm nodule left apex image 14. HILAR AND MEDIASTINAL STRUCTURES: No identified masses or abnormal nodes. No obvious aneurysm. HEART AND VASCULAR STRUCTURES: Cardiomegaly. Small pericardial effusion. UPPER ABDOMEN: Limited exam. Body wall edema. THYROID AND OTHER SOFT TISSUES: No masses. No adenopathy. BONES: No significant finding. HARDWARE: None in the chest. OTHER: No other significant findings. IMPRESSION: 1. Asymmetric edema or pneumonia. Small pleural effusions. 2. Left apical lung nodule which will need serial followup. TECHNICAL DOCUMENTATION: JOB ID: [id number] Quality ID # [id number]: Final reports with documentation of one or more dose reduction techniques (e.g., Au tomated exposure control, adjustment of the mA and/or kV according to patient size, use of iterative reconstruction technique) 2010 [employer]- All Rights Reserved Reading location - IP/workstation name: [email or web address]
--- NOTE | 2019-03-29 14:56 | PDOC PROGRESS REPORT ---
Subjective Progress Note for:: 03/29/19 Subjective:: This is a 63-year-old female with a past medical history of chronic anemia, chronic kidney disease, IDDM, CHF and HTN presented with weakness and recurrent falls. She was found to have left lower lobe consolidation/pneumonia. Patient was started on IV antibiotics. 03/29: No acute event overnight. Upon encounter, she denies acute complaints. Reports she continues to feel better. Denies chest pain or shortness of breath. Blood pressures running low in the 90/30s. Hold amlodipine, hydralazine and lisinopril for now. Reason For Visit: REPEATED FALLS, PNEUMONIA, OBESITY, GENERALIZED Physical Exam Vital Signs: Temp Pulse Resp BP Pulse Ox 98.1 F 53 L 19 94/42 L 98 03/29/19 12:00 03/29/19 12:00 03/29/19 12:00 03/29/19 12:00 03/29/19 12:00 Intake & Output 03/28/19 03/29/19 03/30/19 06:59 06:59 06:59 Intake Total 460 872 Output Total 160 180 Balance 300 692 Weight 313 lb 15.012 oz 319 lb 14.252 oz General appearance: PRESENT: no acute distress, well-developed, well-nourished Head exam: PRESENT: atraumatic, normocephalic Eye exam: PRESENT: conjunctiva pink, EOMI, PERRLA. ABSENT: scleral icterus Ear exam: PRESENT: normal external ear exam Mouth exam: PRESENT: moist, tongue midline Neck exam: ABSENT: carotid bruit, JVD, lymphadenopathy, thyromegaly Respiratory exam: PRESENT: rhonchi. ABSENT: rales, wheezes Cardiovascular exam: PRESENT: RRR. ABSENT: diastolic murmur, rubs, systolic murmur Pulses: PRESENT: normal dorsalis pedis pul GI/Abdominal exam: PRESENT: normal bowel sounds, soft. ABSENT: distended, guarding, mass, organolmegaly, rebound, tenderness Rectal exam: PRESENT: deferred Neurological exam: PRESENT: alert, awake, oriented to person, oriented to place, CN II-XII grossly intact. ABSENT: motor sensory deficit Results Laboratory Results: 03/28/19 04:30 03/28/19 06:46 03/23/19 16:30 Blood Blood Culture - Final NO GROWTH IN 5 DAYS 03/23/19 16:30 Blood Blood Culture - Final NO GROWTH IN 5 DAYS 03/23/19 03/23/19 03/23/19 16:30 16:30 20:24 Creatine Kinase 95 CK-MB (CK-2) 4.75 H Troponin I 0.016 0.018 Impressions: Chest X-Ray 03/27/19 07:00 IMPRESSION: Unchanged left lower lobe consolidation. Assessment and Plan - Diagnosis (1) Acute on chronic renal failure Is this a current diagnosis for this admission?: Yes Plan: Currently oliguric. Possibly related to hypotensive episodes in the past 2 days. Antihypertensives and Lasix were held yesterday. Will consult nephrology for further recommendations. Will start patient with cautious hydration with 50 cc/h of normal saline. (2) Pneumonia Qualifiers: Pneumonia type: due to unspecified organism Laterality: unspecified laterality Lung location: unspecified part of lung Qualified Code(s): J18.9 - Pneumonia, unspecified organism Is this a current diagnosis for this admission?: Yes Plan: Continue IV antibiotics. Sputum culture also ordered. (3) Diastolic CHF Qualifiers: Heart failure chronicity: chronic Qualified Code(s): I50.32 - Chronic diastolic (congestive) heart failure Is this a current diagnosis for this admission?: Yes Plan: Discontinue IV fluids. Hold Lasix today due to low normal blood pressures. (4) Hypertension Qualifiers: Hypertension type: essential hypertension Qualified Code(s): I10 - Essential (primary) hypertension Is this a current diagnosis for this admission?: Yes Plan: 03/29: Blood pressures running low. Hold amlodipine, hydralazine and lisinopril for now. (5) IDDM (insulin dependent diabetes mellitus) Is this a current diagnosis for this admission?: Yes Plan: Continue current insulin regimen. - Time Time Spent with patient: 25-34 minutes
[2019-03-29] MEDS ORDERED: NORMAL SALINE 1000 ML 1,000 ML IV ONE (23:00)
[2019-03-30] MEDS: MEROPENEM 1 GM in NORMAL SALINE 50 ML IV SCH ×2 (05:15→18:05)
[2019-03-30] MEDS: HEPARIN SOD (PORCINE) 5,000 UNIT/ML 1 ML VIAL SUBCUT SCH ×3 (05:15→22:04)
[2019-03-30] MEDS: INSULIN LISPRO 100 UNIT/ML 3 ML VIAL SUBCUT SCH ×4 (07:57→22:05)
[2019-03-30] MEDS: INSULIN GLARGINE,HUM.REC.ANLOG 1,000 UNIT/10 ML VIAL SUBCUT SCH (07:59)
[2019-03-30 10:27] LABS: ABSOLUTE BASOPHILS # (AUTO) 0.1 10^3/uL (0.0-0.2); ABSOLUTE EOSINOPHILS # (AUTO) 0.2 10^3/uL (0.0-0.6); ABSOLUTE LYMPHOCYTES (AUTO) 0.9 10^3/uL (0.5-4.7); ABSOLUTE MONOCYTES (AUTO) 0.7 10^3/uL (0.1-1.4); ABSOLUTE NEUT (AUTO) 3.6 10^3/uL (1.7-8.2); BASOPHILS % (AUTO) 1.2 % (0-2); EOSINOPHILS % (AUTO) 3.3 % (0-6); HEMATOCRIT 26.9 % (36.0-47.0); HEMOGLOBIN 8.6 g/dL (12.0-15.5); LYMPHOCYTES % (AUTO) 16.4 % (13-45); MEAN CORPUSCULAR HEMOGLOBIN 31.9 pg (27.0-33.4); MEAN CORPUSCULAR HGB CONC 32.1 g/dL (32.0-36.0); MEAN CORPUSCULAR VOLUME 99 fl (80-97); MONOCYTES % (AUTO) 13.2 % (3-13); PLATELET COUNT 180 10^3/uL (150-450); RED BLOOD COUNT 2.71 10^6/uL (3.72-5.28); RED CELL DISTRIBUTION WIDTH 17.8 % (11.5-14.0); SEGMENTED NEUTROPHILS % (AUTO) 65.9 % (42-78); TOTAL CELLS COUNTED % (AUTO) 100 %; WHITE BLOOD COUNT 5.4 10^3/uL (4.0-10.5)
[2019-03-30 10:37] LABS: ANION GAP 7 (5-19); BLOOD UREA NITROGEN 48 mg/dL (7-20); CALCIUM 8.3 mg/dL (8.4-10.2); CARBON DIOXIDE 19 mmol/L (22-30); CHLORIDE 111 mmol/L (98-107); GLUCOSE 99 mg/dL (75-110); POTASSIUM 5.4 mmol/L (3.6-5.0)
[2019-03-30] MEDS: FLUCONAZOLE 100 MG TABLET PO SCH (10:38)
[2019-03-30] MEDS: FAMOTIDINE 20 MG TABLET PO SCH (10:38)
[2019-03-30] MEDS: GABAPENTIN 300 MG CAPSULE PO SCH ×2 (10:39→22:04)
[2019-03-30] MEDS: ESCITALOPRAM OXALATE 10 MG TABLET PO SCH (10:39)
[2019-03-30] MEDS: DOCUSATE SODIUM 100 MG CAPSULE PO SCH (10:39)
[2019-03-30] MEDS: ASPIRIN 81 MG TABLET, ENT COATED PO SCH (10:39)
[2019-03-30] MEDS: FUROSEMIDE 40 MG TABLET PO SCH (10:40)
[2019-03-30] MEDS: CARVEDILOL 12.5 MG TABLET PO SCH ×2 (10:40→22:04)
[2019-03-30] MEDS ORDERED: NORMAL SALINE 1000 ML 1,000 ML IV PRN ×2 (13:43)
[2019-03-31] MEDS: HEPARIN SOD (PORCINE) 5,000 UNIT/ML 1 ML VIAL SUBCUT SCH ×3 (05:30→21:09)
[2019-03-31] MEDS: INSULIN LISPRO 100 UNIT/ML 3 ML VIAL SUBCUT SCH ×4 (07:41→23:33)
[2019-03-31] MEDS: INSULIN GLARGINE,HUM.REC.ANLOG 1,000 UNIT/10 ML VIAL SUBCUT SCH (07:41)
[2019-03-31] MEDS: DOCUSATE SODIUM 100 MG CAPSULE PO SCH (09:10)
[2019-03-31] MEDS: FLUCONAZOLE 100 MG TABLET PO SCH (09:13)
[2019-03-31] MEDS: FAMOTIDINE 20 MG TABLET PO SCH (09:14)
[2019-03-31] MEDS: ASPIRIN 81 MG TABLET, ENT COATED PO SCH (09:14)
[2019-03-31] MEDS: CARVEDILOL 12.5 MG TABLET PO SCH ×2 (09:14→21:08)
[2019-03-31] MEDS: FUROSEMIDE 40 MG TABLET PO SCH (09:14)
[2019-03-31] MEDS: ESCITALOPRAM OXALATE 10 MG TABLET PO SCH (09:14)
[2019-03-31] MEDS: GABAPENTIN 300 MG CAPSULE PO SCH ×2 (09:14→21:08)
[2019-03-31 10:43] LABS: ANION GAP 8 (5-19); BLOOD UREA NITROGEN 52 mg/dL (7-20); CALCIUM 8.2 mg/dL (8.4-10.2); CARBON DIOXIDE 19 mmol/L (22-30); CHLORIDE 111 mmol/L (98-107); GLUCOSE 96 mg/dL (75-110); POTASSIUM 5.4 mmol/L (3.6-5.0)
--- NOTE | 2019-03-31 14:36 | PDOC PROGRESS REPORT ---
Subjective Progress Note for:: 03/30/19 Subjective:: This is a 63-year-old female with a past medical history of chronic anemia, chronic kidney disease, IDDM, CHF and HTN presented with weakness and recurrent falls. She was found to have left lower lobe consolidation/pneumonia. Patient was started on IV antibiotics. 03/29: No acute event overnight. Upon encounter, she denies acute complaints. Reports she continues to feel better. Denies chest pain or shortness of breath. Blood pressures running low in the 90/30s. Hold amlodipine, hydralazine and lisinopril for now. 03/30: Patient did not have any urine output last night even after placing English catheter. She has been on 40 mg of Lasix the past few days. Lasix was held last night and she was given a liter of fluid bolus. She did notice minimal urine output. Otherwise she denies acute complaints. Denies chest pain or shortness of breath. Reason For Visit: REPEATED FALLS, PNEUMONIA, OBESITY, GENERALIZED Physical Exam Vital Signs: Temp Pulse Resp BP Pulse Ox 97.5 F 58 L 18 150/64 H 96 03/31/19 12:00 03/31/19 12:00 03/31/19 12:00 03/31/19 12:00 03/31/19 12:00 Intake & Output 03/30/19 03/31/19 04/01/19 06:59 06:59 06:59 Intake Total 1816 746 236 Output Total 340 175 Balance 1476 571 236 Weight 317 lb 14.505 oz 322 lb 5.053 oz General appearance: PRESENT: no acute distress, obese Head exam: PRESENT: atraumatic, normocephalic Eye exam: PRESENT: conjunctiva pink, EOMI, PERRLA. ABSENT: scleral icterus Ear exam: PRESENT: normal external ear exam Mouth exam: PRESENT: moist, tongue midline Neck exam: ABSENT: carotid bruit, JVD, lymphadenopathy, thyromegaly Respiratory exam: PRESENT: clear to auscultation vadim. ABSENT: rales, rhonchi, wheezes Cardiovascular exam: PRESENT: RRR. ABSENT: diastolic murmur, rubs, systolic murmur Pulses: PRESENT: normal dorsalis pedis pul GI/Abdominal exam: PRESENT: normal bowel sounds, soft. ABSENT: distended, guarding, mass, organolmegaly, rebound, tenderness Rectal exam: PRESENT: deferred Neurological exam: PRESENT: alert, awake, oriented to person, oriented to place, oriented to time, oriented to situation, CN II-XII grossly intact. ABSENT: motor sensory deficit Results Laboratory Results: 03/30/19 09:43 03/31/19 09:57 03/31/19 09:57 Sodium 137.5 Potassium 5.4 H Chloride 111 H Carbon Dioxide 19 L Anion Gap 8 BUN 52 H Creatinine 3.73 H Est GFR ( Amer) 15 L Glucose 96 Calcium 8.2 L 03/23/19 03/23/19 03/23/19 16:30 16:30 20:24 Creatine Kinase 95 CK-MB (CK-2) 4.75 H Troponin I 0.016 0.018 Impressions: Chest X-Ray 03/27/19 07:00 IMPRESSION: Unchanged left lower lobe consolidation. Chest CT 03/29/19 09:10 IMPRESSION: 1. Asymmetric edema or pneumonia. Small pleural effusions. 2. Left apical lung nodule which will need serial followup. Assessment and Plan - Diagnosis (1) Acute on chronic renal failure Is this a current diagnosis for this admission?: Yes Plan: Currently oliguric. Possibly related to hypotensive episodes in the past 2 days. Antihypertensives and Lasix were held yesterday. Will consult nephrology for further recommendations. Will start patient with cautious hydration with 50 cc/h of normal saline. (2) Pneumonia Qualifiers: Pneumonia type: due to unspecified organism Laterality: unspecified laterality Lung location: unspecified part of lung Qualified Code(s): J18.9 - Pneumonia, unspecified organism Is this a current diagnosis for this admission?: Yes Plan: Continue IV antibiotics. Sputum culture also ordered. (3) Diastolic CHF Qualifiers: Heart failure chronicity: chronic Qualified Code(s): I50.32 - Chronic diastolic (congestive) heart failure Is this a current diagnosis for this admission?: Yes Plan: Discontinue IV fluids. Hold Lasix today due to low normal blood pressures. (4) Hypertension Qualifiers: Hypertension type: essential hypertension Qualified Code(s): I10 - Essential (primary) hypertension Is this a current diagnosis for this admission?: Yes Plan: 03/29: Blood pressures running low. Hold amlodipine, hydralazine and lisinopril for now. (5) IDDM (insulin dependent diabetes mellitus) Is this a current diagnosis for this admission?: Yes Plan: Continue current insulin regimen. - Time Time Spent with patient: 25-34 minutes
--- NOTE | 2019-03-31 14:39 | PDOC PROGRESS REPORT ---
Subjective Progress Note for:: 03/31/19 Subjective:: This is a 63-year-old female with a past medical history of chronic anemia, chronic kidney disease, IDDM, CHF and HTN presented with weakness and recurrent falls. She was found to have left lower lobe consolidation/pneumonia. Patient was started on IV antibiotics. 03/29: No acute event overnight. Upon encounter, she denies acute complaints. Reports she continues to feel better. Denies chest pain or shortness of breath. Blood pressures running low in the 90/30s. Hold amlodipine, hydralazine and lisinopril for now. 03/30: Patient did not have any urine output last night even after placing English catheter. She has been on 40 mg of Lasix the past few days. Lasix was held last night and she was given a liter of fluid bolus. She did notice minimal urine output. Otherwise she denies acute complaints. Denies chest pain or shortness of breath. 03/31: No acute event overnight. Patient was started on normal saline at 50 cc/h yesterday. However she remains to have low urine output. Await further recommendations from nephrology. Blood pressures have recovered. Restart amlodipine and Coreg. Reason For Visit: REPEATED FALLS, PNEUMONIA, OBESITY, GENERALIZED Physical Exam Vital Signs: Temp Pulse Resp BP Pulse Ox 97.5 F 58 L 18 150/64 H 96 03/31/19 12:00 03/31/19 12:00 03/31/19 12:00 03/31/19 12:00 03/31/19 12:00 Intake & Output 03/30/19 03/31/19 04/01/19 06:59 06:59 06:59 Intake Total 1816 746 236 Output Total 340 175 Balance 1476 571 236 Weight 317 lb 14.505 oz 322 lb 5.053 oz General appearance: PRESENT: no acute distress, obese Head exam: PRESENT: atraumatic, normocephalic Eye exam: PRESENT: conjunctiva pink, EOMI, PERRLA. ABSENT: scleral icterus Ear exam: PRESENT: normal external ear exam Mouth exam: PRESENT: moist, tongue midline Neck exam: ABSENT: carotid bruit, JVD, lymphadenopathy, thyromegaly Respiratory exam: PRESENT: clear to auscultation vadim. ABSENT: rales, rhonchi, wheezes Cardiovascular exam: PRESENT: RRR. ABSENT: diastolic murmur, rubs, systolic murmur Rectal exam: PRESENT: deferred Extremities exam: ABSENT: calf tenderness Neurological exam: PRESENT: alert, awake, oriented to person, oriented to place, oriented to time, oriented to situation, CN II-XII grossly intact. ABSENT: motor sensory deficit Results Laboratory Results: 03/30/19 09:43 03/31/19 09:57 03/31/19 09:57 Sodium 137.5 Potassium 5.4 H Chloride 111 H Carbon Dioxide 19 L Anion Gap 8 BUN 52 H Creatinine 3.73 H Est GFR ( Amer) 15 L Glucose 96 Calcium 8.2 L 03/23/19 03/23/19 03/23/19 16:30 16:30 20:24 Creatine Kinase 95 CK-MB (CK-2) 4.75 H Troponin I 0.016 0.018 Impressions: Chest X-Ray 03/27/19 07:00 IMPRESSION: Unchanged left lower lobe consolidation. Chest CT 03/29/19 09:10 IMPRESSION: 1. Asymmetric edema or pneumonia. Small pleural effusions. 2. Left apical lung nodule which will need serial followup. Assessment and Plan - Diagnosis (1) Acute on chronic renal failure Is this a current diagnosis for this admission?: Yes Plan: 03/30: Currently oliguric. Possibly related to hypotensive episodes in the past 2 days. Antihypertensives and Lasix were held yesterday. Will consult nephrology for further recommendations. Will start patient with cautious hydration with 50 cc/h of normal saline. 03/31: Await further nephrology recommendations. (2) Pneumonia Qualifiers: Pneumonia type: due to unspecified organism Laterality: unspecified laterality Lung location: unspecified part of lung Qualified Code(s): J18.9 - Pneumonia, unspecified organism Is this a current diagnosis for this admission?: Yes Plan: Continue IV antibiotics. (3) Diastolic CHF Qualifiers: Heart failure chronicity: chronic Qualified Code(s): I50.32 - Chronic diastolic (congestive) heart failure Is this a current diagnosis for this admission?: Yes Plan: 03/29: Discontinue IV fluids. Hold Lasix today due to low normal blood pressur es. (4) Hypertension Qualifiers: Hypertension type: essential hypertension Qualified Code(s): I10 - Essential (primary) hypertension Is this a current diagnosis for this admission?: Yes Plan: 03/29: Blood pressures running low. Hold amlodipine, hydralazine and lisinopril f or now. 03/31: Blood pressures have recovered. Restart amlodipine and Coreg. (5) IDDM (insulin dependent diabetes mellitus) Is this a current diagnosis for this admission?: Yes Plan: Continue current insulin regimen. - Time Time Spent with patient: 25-34 minutes
[2019-04-01] MEDS: HEPARIN SOD (PORCINE) 5,000 UNIT/ML 1 ML VIAL SUBCUT SCH ×3 (05:10→22:07)
[2019-04-01] MEDS: INSULIN LISPRO 100 UNIT/ML 3 ML VIAL SUBCUT SCH ×4 (07:09→22:08)
[2019-04-01] MEDS: INSULIN GLARGINE,HUM.REC.ANLOG 1,000 UNIT/10 ML VIAL SUBCUT SCH (07:09)
[2019-04-01] MEDS: DOCUSATE SODIUM 100 MG CAPSULE PO SCH (10:03)
[2019-04-01] MEDS: FAMOTIDINE 20 MG TABLET PO SCH (10:08)
[2019-04-01] MEDS: AMLODIPINE BESYLATE 10 MG TABLET PO SCH (10:08)
[2019-04-01] MEDS: CARVEDILOL 12.5 MG TABLET PO SCH ×2 (10:08→22:07)
[2019-04-01] MEDS: GABAPENTIN 300 MG CAPSULE PO SCH ×2 (10:08→22:07)
[2019-04-01] MEDS: ASPIRIN 81 MG TABLET, ENT COATED PO SCH (10:08)
[2019-04-01] MEDS: ESCITALOPRAM OXALATE 10 MG TABLET PO SCH (10:08)
[2019-04-01] MEDS: FUROSEMIDE 40 MG TABLET PO SCH (10:08)
[2019-04-01] MEDS: FLUCONAZOLE 100 MG TABLET PO SCH (10:08)
[2019-04-01] MEDS: NORMAL SALINE 1000 ML 1,000 ML IV PRN ×2 (12:30→22:06)
--- NOTE | 2019-04-01 15:05 | PDOC PROGRESS REPORT ---
Subjective Progress Note for:: 04/01/19 Subjective:: This is a 63-year-old female with a past medical history of chronic anemia, chronic kidney disease, IDDM, CHF and HTN presented with weakness and recurrent falls. She was found to have left lower lobe consolidation/pneumonia. Patient was started on IV antibiotics. 03/29: No acute event overnight. Upon encounter, she denies acute complaints. Reports she continues to feel better. Denies chest pain or shortness of breath. Blood pressures running low in the 90/30s. Hold amlodipine, hydralazine and lisinopril for now. 03/30: Patient did not have any urine output last night even after placing English catheter. She has been on 40 mg of Lasix the past few days. Lasix was held last night and she was given a liter of fluid bolus. She did notice minimal urine output. Otherwise she denies acute complaints. Denies chest pain or shortness of breath. 03/31: No acute event overnight. Patient was started on normal saline at 50 cc/h yesterday. However she remains to have low urine output. Await further recommendations from nephrology. Blood pressures have recovered. Restart amlodipine and Coreg. 04/01: Patient made out 250 cc urine output overnight. Nephrology has evaluated patient and has increased IV fluids to 100 cc/h. Otherwise no other acute event overnight. Patient denies acute complaints. Denies shortness of breath or chest pain. Reason For Visit: REPEATED FALLS, PNEUMONIA, OBESITY, GENERALIZED Physical Exam Vital Signs: Temp Pulse Resp BP Pulse Ox 98.0 F 56 L 18 143/56 H 97 04/01/19 10:58 04/01/19 10:58 04/01/19 10:58 04/01/19 10:58 04/01/19 10:58 Intake & Output 03/31/19 04/01/19 04/02/19 06:59 06:59 06:59 Intake Total 746 712 Output Total 175 250 200 Balance 571 462 -200 Weight 322 lb 5.053 oz 326 lb 11.601 oz Results Laboratory Results: 03/30/19 09:43 03/31/19 09:57 03/23/19 03/23/19 03/23/19 16:30 16:30 20:24 Creatine Kinase 95 CK-MB (CK-2) 4.75 H Troponin I 0.016 0.018 Impressions: Chest X-Ray 03/27/19 07:00 IMPRESSION: Unchanged left lower lobe consolidation. Chest CT 03/29/19 09:10 IMPRESSION: 1. Asymmetric edema or pneumonia. Small pleural effusions. 2. Left apical lung nodule which will need serial followup. Assessment and Plan - Diagnosis (1) Acute on chronic renal failure Is this a current diagnosis for this admission?: Yes Plan: 03/30: Currently oliguric. Possibly related to hypotensive episodes in the past 2 days. Antihypertensives and Lasix were held yesterday. Will consult nephrology for further recommendations. Will start patient with cautious hydration with 50 cc/h of normal saline. 03/31: Await further nephrology recommendations. 04/01: Nephrology has evaluated patient and has increased IV fluids to 100 cc/h. (2) Pneumonia Qualifiers: Pneumonia type: due to unspecified organism Laterality: unspecified laterality Lung location: unspecified part of lung Qualified Code(s): J18.9 - Pneumonia, unspecified organism Is this a current diagnosis for this admission?: Yes Plan: Completed 7 days of IV antibiotics. (3) Diastolic CHF Qualifiers: Heart failure chronicity: chronic Qualified Code(s): I50.32 - Chronic diastolic (congestive) heart failure Is this a current diagnosis for this admission?: Yes Plan: 03/29: Discontinue IV fluids. Hold Lasix today due to low normal blood pressures. 04/01: IV fluids increased to 100 cc/hr per nephro recommendations. (4) Hypertension Qualifiers: Hypertension type: essential hypertension Qualified Code(s): I10 - Essential (primary) hypertension Is this a current diagnosis for this admission?: Yes Plan: 03/29: Blood pressures running low. Hold amlodipine, hydralazine and lisinopril for now. 03/31: Blood pressures have recovered. Restart amlodipine and Coreg. (5) IDDM (insulin dependent diabetes mellitus) Is this a current diagnosis for this admission?: Yes Plan: Continue current insulin regimen.
--- NOTE | 2019-04-01 16:33 | PDOC CONSULTATION ---
Consultation Consult Date: 04/01/19 Provider Consulted: Jez OSUNA Consult reason:: Dropping urine output. History of Present Illness Admission Date/PCP: 03/23/19 18:51 NATACHA CORMIER MD History of Present Illness: FINA HERNÁNDEZ is a 63 year old female with a history of chronic anemia, chronic kidney disease stage IV with base creatinine of around [address] Ramirez/nephrology, IDDM, CHF and HTN was admitted with history of progressive weakness along with coughing spells. She has been diagnosed to have left lower lobe pneumonia and was begun on antibiotics. She is also put on IV diuretics on a provisional diagnosis of possible congestive heart failure. It looks like she has been overdiuresed and Lasix has been held for the last couple of days. However in the process her urine output has dropped. Patient currently generally feels okay. She also admits to the fact that she has been having chronic semisolid diarrhea for the last month or so.No complaints of any bleeding in the stools, fever or chills. She also complains of associated right periumbilical pain which usually happens after she eats and then she has to move her bowels. Currently this is been going on for some time.Labs and medications were reviewed. Past Medical History Cardiac Medical History: Reports: CHF-Diastolic, Coronary Artery Disease, Hyperlipidemia, Hypertension-primary Denies: Atrial Fibrillation, DVT, Myocardial Infarction, Peripheral Vascular Disease, Pulmonary Embolism Pulmonary Medical History: Reports: Asthma, Respiratory Failure, Sleep Apnea - Not using CPAP at home Denies: Bronchitis, Chronic Obstructive Pulmonary Disease (COPD), Pneumonia Neurological Medical History: Denies: Seizures Endocrine Medical History: Reports: Diabetes Mellitus Type 2 Denies: Diabetes Mellitus Type 1, Hyperthyroidism, Hypothyroidism Renal/ Medical History: Reports: Chronic Kidney Disease Stage IV, Secondary Hyperparathyroidism Denies: Hematuria GI Medical History: Denies: Cirrhosis, Crohn's Disease, Hepatitis, Ulcerative Colitis Musculoskeltal Medical History: Reports: Arthritis Denies: Gout Skin Medical History: Denies: Eczema, Psoriasis Psychiatric Medical History: Reports: Depression Past Surgical History Past Surgical History: Reports: Cholecystectomy, Tonsillectomy, Tubal Ligation, Other - Carpal tunnel Social History Smoking Status: Former Smoker Frequency of Alcohol Use: None Hx Recreational Drug Use: No Drugs: None Hx Prescription Drug Abuse: No - Advance Directive Resuscitation Status: Full Code Family History Parental Family History Reviewed: Yes - Denies history of ESRD. Children Family History Reviewed: No Sibling(s) Family History Reviewed.: No Medication/Allergy Home Medications: Aspirin [Adult Low Dose Aspirin EC] 81 mg PO DAILY 01/18/19 Carvedilol [Coreg 12.5 mg Tablet] 12.5 mg PO Q12 01/18/19 Escitalopram Oxalate [Lexapro] 20 mg PO DAILY 01/18/19 Furosemide [Lasix 40 mg Tablet] 40 mg PO DAILY 01/18/19 Gabapentin [Neurontin 300 mg Capsule] 600 mg PO QPM 01/18/19 Gabapentin [Neurontin 300 mg Capsule] 900 mg PO QAM 01/18/19 Insulin Glargine,Hum.rec.anlog [Lantus Insulin 100 Unit/1 ml 10 ml] 15 units SQ QAM 01/18/19 Lisinopril [Zestril] 40 mg PO DAILY 01/18/19 Mirabegron [Myrbetriq] 50 mg PO DAILY 01/18/19 Pantoprazole Sodium [Protonix [address] Tablet] 40 mg PO DAILY 01/18/19 Tramadol HCl [Ultram 50 mg Tablet] 50 mg PO Q8 01/18/19 Hydralazine HCl [Apresoline 50 mg Tablet] 50 mg PO Q8 30 Days #90 tablet 01/29/19 Cephalexin Monohydrate [Keflex 500 mg Capsule] 500 mg PO QID #20 capsule 03/14/19 Amlodipine Besylate [Norvasc 10 mg Tablet] 10 mg PO DAILY 03/23/19 Allergies/Adverse Reactions: No Known Allergies Allergy (Verified 01/17/19 15:35) Review of Systems Constitutional: PRESENT: weakness. ABSENT: anorexia, chills, fatigue, fever(s), headache(s), night sweats Nose, Mouth, and Throat: ABSENT: mouth pain, sore throat Cardiovascular: ABSENT: chest pain, dyspnea on exertion, edema, orthropnea, palpitations Respiratory: ABSENT: dyspnea, hemoptysis Gastrointestinal: PRESENT: abdominal pain - Right periumbilical., diarrhea. ABSENT: bloating, coffee ground emesis, constipation, dysphagia, heartburn, hematemesis, hematochezia, melena, nausea Genitourinary: ABSENT: difficulty urinating, dysuria, hematuria Musculoskeletal: ABSENT: deformity Integumentary: ABSENT: lesions, pruritus, rash Neurological: ABSENT: abnormal movements, abnormal speech, convulsions, dizziness, focal weakness, frequent falls, lack of coordination Endocrine: ABSENT: cold intolerance, polydipsia, polyphagia Hematologic/Lymphatic: ABSENT: lymphadenopathy Physical Exam Vital Signs: Temp Pulse Resp BP Pulse Ox 98.0 F 56 L 18 143/56 H 97 04/01/19 10:58 04/01/19 10:58 04/01/19 10:58 04/01/19 10:58 04/01/19 10:58 Intake & Output 03/31/19 04/01/19 04/02/19 06:59 06:59 06:59 Intake Total 746 712 Output Total 175 250 200 Balance 571 462 -200 Weight 146.2 kg 148.2 kg General appearance: PRESENT: no acute distress Eye exam: PRESENT: EOMI, PERRLA. ABSENT: scleral icterus Ear exam: PRESENT: normal external ear exam Neck exam: ABSENT: lymphadenopathy, meningismus, tenderness, thyromegaly, tracheal deviation Respiratory exam: PRESENT: clear to auscultation vadim, decreased breath sounds. ABSENT: crackles Cardiovascular exam: PRESENT: +S1, +S2, systolic murmur GI/Abdominal exam: PRESENT: normal bowel sounds, soft. ABSENT: organomegaly, tenderness Extremities exam: ABSENT: calf tenderness, clubbing, pedal edema Neurological exam: PRESENT: alert, awake, oriented to person, oriented to time Psychiatric exam: PRESENT: appropriate affect Skin exam: ABSENT: cyanosis, erythema, mottled, rash Results Laboratory Results: 03/30/19 09:43 03/31/19 09:57 03/23/19 03/23/19 03/23/19 16:30 16:30 20:24 Creatine Kinase 95 CK-MB (CK-2) 4.75 H Troponin I 0.016 0.018 Impressions: Chest X-Ray 03/27/19 07:00 IMPRESSION: Unchanged left lower lobe consolidation. Chest CT 03/29/19 09:10 IMPRESSION: 1. Asymmetric edema or pneumonia. Small pleural effusions. 2. Left apical lung nodule which will need serial followup. Assessment & Plan - Diagnosis (1) Acute on chronic renal failure Is this a current diagnosis for this admission?: Yes Plan: Patient is got decompensation of her renal failure from her baseline. Need to rule out possible obstructive uropathy and therefore we will also order renal ul trasound. Clinically at the moment she still looks dehydrated. And will increase IV fluids 200 cc/h for the next 2 days and monitor.I will be away for the weekend and be back on Thursday. (2) Chronic kidney disease, stage IV (severe) Is this a current diagnosis for this admission?: Yes Plan: Has underlying CKD stage IV with a base creatinine around 3. Background history of diabetes/hypertension. (3) Dehydration Plan: Clinically looks like she possibly has been over diuresed. She also has got there is chronic semisolid-diarrhea which also needs to be worked out. See the response to fluid resuscitation while I will also order a C. difficile. (4) Pneumonia Qualifiers: Pneumonia type: due to unspecified organism Laterality: unspecified laterality Lung location: unspecified part of lung Qualified Code(s): J18.9 - Pneumonia, unspecified organism Is this a current diagnosis for this admission?: Yes Plan: Looks like currently she is been taken off antibiotics for now. As per hospitalist. (5) Abdominal pain Plan: Made worse with eating in association with some semisolid-diarrhea. Possibly could be IBS. However needs to rule out C. difficile especially since history of recent antibiotics. (6) Diabetes mellitus type 2 in obese Plan: Advised on tight control. Management as per hospitalist. (7) HTN (hypertension) Qualifiers: Hypertension type: essential hypertension Qualified Code(s): I10 - Essential (primary) hypertension Plan: Controlled. (8) Diarrhea Plan: Apparently this is been going on for the last 1 to 2 months. There is an association with right periumbilical pain made worse after she eats. Possible likelihood of IBS. However need to exclude C. difficile. Will order C. difficile assay.
[2019-04-01 16:35] LABS: ANION GAP 8 (5-19); BLOOD UREA NITROGEN 53 mg/dL (7-20); CALCIUM 8.1 mg/dL (8.4-10.2); CARBON DIOXIDE 20 mmol/L (22-30); CHLORIDE 110 mmol/L (98-107); GLUCOSE 93 mg/dL (75-110); POTASSIUM 5.5 mmol/L (3.6-5.0)
[2019-04-01] MEDS: HYDRALAZINE HCL 50 MG TABLET PO SCH (22:07)
[2019-04-02 04:13] LABS: C DIFFICILE GDH NEGATIVE (NEGATIVE)
[2019-04-02] MEDS: HEPARIN SOD (PORCINE) 5,000 UNIT/ML 1 ML VIAL SUBCUT SCH ×3 (06:26→21:24)
[2019-04-02] MEDS: HYDRALAZINE HCL 50 MG TABLET PO SCH ×3 (06:26→21:24)
[2019-04-02] MEDS: NORMAL SALINE 1000 ML 1,000 ML IV PRN (06:27)
[2019-04-02] MEDS: INSULIN LISPRO 100 UNIT/ML 3 ML VIAL SUBCUT SCH ×4 (08:12→22:13)
[2019-04-02] MEDS: INSULIN GLARGINE,HUM.REC.ANLOG 1,000 UNIT/10 ML VIAL SUBCUT SCH (08:13)
[2019-04-02 09:44] LABS: ANION GAP 9 (5-19); BLOOD UREA NITROGEN 56 mg/dL (7-20); CALCIUM 8.2 mg/dL (8.4-10.2); CARBON DIOXIDE 17 mmol/L (22-30); CHLORIDE 111 mmol/L (98-107); GLUCOSE 105 mg/dL (75-110); POTASSIUM 5.5 mmol/L (3.6-5.0)
[2019-04-02] MEDS: FAMOTIDINE 20 MG TABLET PO SCH (10:05)
[2019-04-02] MEDS: DOCUSATE SODIUM 100 MG CAPSULE PO SCH (10:05)
[2019-04-02] MEDS: FLUCONAZOLE 100 MG TABLET PO SCH (10:05)
[2019-04-02] MEDS: ASPIRIN 81 MG TABLET, ENT COATED PO SCH (10:05)
[2019-04-02] MEDS: ESCITALOPRAM OXALATE 10 MG TABLET PO SCH (10:05)
[2019-04-02] MEDS: GABAPENTIN 300 MG CAPSULE PO SCH ×2 (10:05→21:24)
[2019-04-02] MEDS: CARVEDILOL 12.5 MG TABLET PO SCH ×2 (10:06→21:24)
[2019-04-02] MEDS: AMLODIPINE BESYLATE 10 MG TABLET PO SCH (10:06)
--- NOTE | 2019-04-02 11:14 | RADIOLOGY REPORT (SQ) ---
EXAM DESCRIPTION: [employer] COMPLETED DATE/TIME: 04/01/2019 10:00 pm REASON FOR STUDY: ISAAC COMPARISON: CT 01/24/2019 TECHNIQUE: Dynamic and static grayscale images acquired of the kidneys and bladder and recorded on P ACS. Additional selected color Doppler and spectral images recorded. LIMITATIONS: Body habitus FINDINGS: RIGHT KIDNEY: Normal size. Normal echogenicity. No solid or suspicious masses. No h ydronephrosis. No calcifications. LEFT KIDNEY: Not visualize BLADDER: Not visualized OTHER FINDINGS: No other significant finding. IMPRESSION: Normal right kidney. Neither the bladder or the left kidney can be identified. COMMENT: Normal size. TECHNICAL DOCUMENTATION: JOB ID: [id number] [employer]- All Rights Reserved Reading location - IP/workstation name: [email or web address]
--- NOTE | 2019-04-02 14:24 | PDOC PROGRESS REPORT ---
Subjective Progress Note for:: 04/02/19 Subjective:: This is a 63-year-old female with a past medical history of chronic anemia, chronic kidney disease, IDDM, CHF and HTN presented with weakness and recurrent falls. She was found to have left lower lobe consolidation/pneumonia. Patient was started on IV antibiotics. 03/29: No acute event overnight. Upon encounter, she denies acute complaints. Reports she continues to feel better. Denies chest pain or shortness of breath. Blood pressures running low in the 90/30s. Hold amlodipine, hydralazine and lisinopril for now. 03/30: Patient did not have any urine output last night even after placing English catheter. She has been on 40 mg of Lasix the past few days. Lasix was held last night and she was given a liter of fluid bolus. She did notice minimal urine output. Otherwise she denies acute complaints. Denies chest pain or shortness of breath. 03/31: No acute event overnight. Patient was started on normal saline at 50 cc/h yesterday. However she remains to have low urine output. Await further recommendations from nephrology. Blood pressures have recovered. Restart amlodipine and Coreg. 04/01: Patient made out 250 cc urine output overnight. Nephrology has evaluated patient and has increased IV fluids to 100 cc/h. Otherwise no other acute event overnight. Patient denies acute complaints. Denies shortness of breath or chest pain. 04/02: No acute event overnight. Appreciate nephro recommendations. Urine output has fairly improved after IV fluids were increased yesterday afternoon. Creatinine improved from 3.7 to 2.9. Denies other acute complaints. Denies chest pain or shortness of breath. Continue IV fluids at 100 cc/h. Reason For Visit: REPEATED FALLS, PNEUMONIA, OBESITY, GENERALIZED Physical Exam Vital Signs: Temp Pulse Resp BP Pulse Ox 97.3 F 54 L 19 128/58 H 97 04/02/19 12:00 04/02/19 12:00 04/02/19 12:00 04/02/19 12:04/02/19 12:00 Intake & Output 04/01/19 04/02/19 04/03/19 06:59 06:59 06:59 Intake Total 712 2507 600 Output Total 250 325 Balance 462 2182 600 Weight 326 lb 11.601 oz 326 lb 11.601 oz General appearance: PRESENT: no acute distress, well-developed, well-nourished Head exam: PRESENT: atraumatic, normocephalic Eye exam: PRESENT: conjunctiva pink, EOMI, PERRLA. ABSENT: scleral icterus Ear exam: PRESENT: normal external ear exam Mouth exam: PRESENT: moist, tongue midline Neck exam: ABSENT: carotid bruit, JVD, lymphadenopathy, thyromegaly Respiratory exam: PRESENT: clear to auscultation vadim. ABSENT: rales, rhonchi, wheezes Cardiovascular exam: PRESENT: RRR. ABSENT: diastolic murmur, rubs, systolic murmur Pulses: PRESENT: normal dorsalis pedis pul GI/Abdominal exam: PRESENT: normal bowel sounds, soft. ABSENT: distended, guarding, mass, organolmegaly, rebound, tenderness Rectal exam: PRESENT: deferred Extremities exam: PRESENT: +1 edema Neurological exam: PRESENT: alert, awake, oriented to person, oriented to place, oriented to time, oriented to situation, CN II-XII grossly intact. ABSENT: motor sensory deficit Results Laboratory Results: 03/30/19 09:43 04/02/19 09:07 04/01/19 04/02/19 15:01 09:07 Sodium 137.9 137.1 Potassium 5.5 H 5.5 H Chloride 110 H 111 H Carbon Dioxide 20 L 17 L Anion Gap 8 9 BUN 53 H 56 H Creatinine 3.71 H 2.99 H Est GFR ( Amer) 15 L 19 L Glucose 93 105 Calcium 8.1 L 8.2 L 03/23/19 03/23/19 03/23/19 16:30 16:30 20:24 Creatine Kinase 95 CK-MB (CK-2) 4.75 H Troponin I 0.016 0.018 Impressions: Chest X-Ray 03/27/19 07:00 IMPRESSION: Unchanged left lower lobe consolidation. Chest CT 03/29/19 09:10 IMPRESSION: 1. Asymmetric edema or pneumonia. Small pleural effusions. 2. Left apical lung nodule which will need serial followup. Renal Ultrasound 04/01/19 00:00 IMPRESSION: Normal right kidney. Neither the bladder or the left kidney can be identified. Assessment and Plan - Diagnosis (1) Acute on chronic renal failure Is this a current diagnosis for this admission?: Yes Plan: 03/30: Currently oliguric. Possibly related to hypotensive episodes in the past 2 days. Antihypertensives and Lasix were held yesterday. Will consult nephrology for further recommendations. Will start patient with cautious hydration with 50 cc/h of normal saline. 03/31: Await further nephrology recommendations. 04/01: Nephrology has evaluated patient and has increased IV fluids to 100 cc/h. 04/02: Appreciate nephro recommendations. Urine output has fairly improved after IV fluids were increased yesterday afternoon. Creatinine improved from 3.7 to 2.9. Continue IV fluids at 100 cc/h. (2) Pneumonia Qualifiers: Pneumonia type: due to unspecified organism Laterality: unspecified laterality Lung location: unspecified part of lung Qualified Code(s): J18.9 - Pneumonia, unspecified organism Is this a current diagnosis for this admission?: Yes Plan: Completed 7 days of IV antibiotics. (3) Diastolic CHF Qualifiers: Heart failure chronicity: chronic Qualified Code(s): I50.32 - Chronic diastolic (congestive) heart failure Is this a current diagnosis for this admission?: Yes Plan: 03/29: Discontinue IV fluids. Hold Lasix today due to low normal blood pressures. 04/01: IV fluids increased to 100 cc/hr per nephro recommendations. (4) Hypertension Qualifiers: Hypertension type: essential hypertension Qualified Code(s): I10 - Essential (primary) hypertension Is this a current diagnosis for this admission?: Yes Plan: 03/29: Blood pressures running low. Hold amlodipine, hydralazine and lisinopril for now. 03/31: Blood pressures have recovered. Restart amlodipine and Coreg. (5) IDDM (insulin dependent diabetes mellitus) Is this a current diagnosis for this admission?: Yes Plan: Continue current insulin regimen. - Time Time Spent with patient: 25-34 minutes
[2019-04-03] MEDS: HYDRALAZINE HCL 50 MG TABLET PO SCH ×2 (06:13→13:25)
[2019-04-03] MEDS: HEPARIN SOD (PORCINE) 5,000 UNIT/ML 1 ML VIAL SUBCUT SCH ×3 (06:13→21:56)
[2019-04-03] MEDS: INSULIN LISPRO 100 UNIT/ML 3 ML VIAL SUBCUT SCH ×4 (07:27→22:01)
[2019-04-03] MEDS: INSULIN GLARGINE,HUM.REC.ANLOG 1,000 UNIT/10 ML VIAL SUBCUT SCH (07:27)
[2019-04-03] MEDS: ESCITALOPRAM OXALATE 10 MG TABLET PO SCH (09:14)
[2019-04-03] MEDS: DOCUSATE SODIUM 100 MG CAPSULE PO SCH (09:14)
[2019-04-03] MEDS: GABAPENTIN 300 MG CAPSULE PO SCH ×2 (09:15→21:56)
[2019-04-03] MEDS: FAMOTIDINE 20 MG TABLET PO SCH (09:15)
[2019-04-03] MEDS: ASPIRIN 81 MG TABLET, ENT COATED PO SCH (09:15)
[2019-04-03] MEDS: LISINOPRIL 10 MG TABLET PO SCH (09:15)
[2019-04-03] MEDS: AMLODIPINE BESYLATE 10 MG TABLET PO SCH (09:15)
[2019-04-03] MEDS: CARVEDILOL 12.5 MG TABLET PO SCH (09:16)
[2019-04-03 10:37] LABS: ANION GAP 9 (5-19); BLOOD UREA NITROGEN 56 mg/dL (7-20); CALCIUM 8.2 mg/dL (8.4-10.2); CARBON DIOXIDE 19 mmol/L (22-30); CHLORIDE 110 mmol/L (98-107); GLUCOSE 90 mg/dL (75-110); POTASSIUM 5.6 mmol/L (3.6-5.0)
[2019-04-03] MEDS ORDERED: CALCIUM GLUCONATE 1000 MG/10 ML INJ IV ONE (11:45)
[2019-04-03] MEDS ORDERED: DEXTROSE 50%-WATER 25 GM/50 ML DISP.SYRIN IV ONE (11:45)
[2019-04-03] MEDS ORDERED: INSULIN REG, HUMAN 100 UNIT/ML 3 ML VIAL (PYX) IV ONE (11:45)
--- NOTE | 2019-04-03 12:35 | RADIOLOGY REPORT (SQ) ---
EXAM DESCRIPTION: CHEST SINGLE VIEW COMPLETED DATE/TIME: 04/03/2019 11:59 am REASON FOR STUDY: cough COMPARISON: 03/27/2019. EXAM PARAMETERS: NUMBER OF VIEWS: One view. TECHNIQUE: Single frontal radiographic view of the chest acquired. RADIATION DOSE: NA LIMITATIONS: Limited due to the patient's body habitus. FINDINGS: LUNGS AND PLEURA: Continued left basilar density. Right lung fairly clear. MEDIASTINUM AND HILAR STRUCTURES: No masses. Contour normal. HEART AND VASCULAR STRUCTURES: Cardiomegaly. BONES: No acute findings. HARDWARE: None in the chest. OTHER: No other significant finding. IMPRESSION: LIMITED STUDY. NO SIGNIFICANT CHANGE. TECHNICAL DOCUMENTATION: JOB ID: [id number] [email or web address]- All Rights Reserved Reading location - IP/workstation name: [email or web address]
--- NOTE | 2019-04-03 15:05 | PDOC PROGRESS REPORT ---
Subjective Progress Note for:: 04/03/19 Subjective:: This is a 63-year-old female with a past medical history of chronic anemia, chronic kidney disease, IDDM, CHF and HTN presented with weakness and recurrent falls. She was found to have left lower lobe consolidation/pneumonia. Patient was started on IV antibiotics. 03/29: No acute event overnight. Upon encounter, she denies acute complaints. Reports she continues to feel better. Denies chest pain or shortness of breath. Blood pressures running low in the 90/30s. Hold amlodipine, hydralazine and lisinopril for now. 03/30: Patient did not have any urine output last night even after placing English catheter. She has been on 40 mg of Lasix the past few days. Lasix was held last night and she was given a liter of fluid bolus. She did notice minimal urine output. Otherwise she denies acute complaints. Denies chest pain or shortness of breath. 03/31: No acute event overnight. Patient was started on normal saline at 50 cc/h yesterday. However she remains to have low urine output. Await further recommendations from nephrology. Blood pressures have recovered. Restart amlodipine and Coreg. 04/01: Patient made out 250 cc urine output overnight. Nephrology has evaluated patient and has increased IV fluids to 100 cc/h. Otherwise no other acute event overnight. Patient denies acute complaints. Denies shortness of breath or chest pain. 04/02: No acute event overnight. Appreciate nephro recommendations. Urine output has fairly improved after IV fluids were increased yesterday afternoon. Creatinine improved from 3.7 to 2.9. Denies other acute complaints. Denies chest pain or shortness of breath. Continue IV fluids at 100 cc/h. 04/03: Cute event overnight. Patient's urine output improved yesterday after IV fluids were increased. However, she only put out 100 cc overnight despite being continued on IV fluids. Creatinine went up to 3.7 from 2.9. Potassium has gone up to 5.6. We will continue IV Lasix for the next 24 hours. Will await for further nephrology recommendations tomorrow as she may be a possible dialysis candidate if she continues to be oliguric despite IV fluids. Reason For Visit: REPEATED FALLS, PNEUMONIA, OBESITY, GENERALIZED Physical Exam Vital Signs: Temp Pulse Resp BP Pulse Ox 97.4 F 44 L 19 96/36 L 94 04/03/19 12:00 04/03/19 12:00 04/03/19 12:00 04/03/19 12:00 04/03/19 12:00 Intake & Output 04/02/19 04/03/19 04/04/19 06:59 06:59 06:59 Intake Total 2507 1600 30 Output Total 325 100 Balance 2182 1500 30 Weight 326 lb 11.601 oz 328 lb 11.347 oz General appearance: PRESENT: no acute distress, well-developed, well-nourished Head exam: PRESENT: atraumatic, normocephalic Eye exam: PRESENT: conjunctiva pink, EOMI, PERRLA. ABSENT: scleral icterus Ear exam: PRESENT: normal external ear exam Mouth exam: PRESENT: moist, tongue midline Neck exam: ABSENT: carotid bruit, JVD, lymphadenopathy, thyromegaly Respiratory exam: PRESENT: clear to auscultation vadim. ABSENT: rales, rhonchi, wheezes Cardiovascular exam: PRESENT: RRR. ABSENT: diastolic murmur, rubs, systolic mu rmur Pulses: PRESENT: normal dorsalis pedis pul GI/Abdominal exam: PRESENT: normal bowel sounds, soft. ABSENT: distended, guarding, mass, organolmegaly, rebound, tenderness Rectal exam: PRESENT: deferred Extremities exam: PRESENT: +2 edema Neurological exam: PRESENT: alert, awake, oriented to person, oriented to place, oriented to time, oriented to situation, CN II-XII grossly intact. ABSENT: motor sensory deficit Results Laboratory Results: 03/30/19 09:43 04/03/19 09:00 04/02/19 04/03/19 21:10 09:00 Sodium 137.6 Potassium 5.6 H Chloride 110 H Carbon Dioxide 19 L Anion Gap 9 BUN 56 H Creatinine 3.71 H Est GFR ( Amer) 15 L Glucose 90 Calcium 8.2 L Stool for White Cells NO WBCs SEEN 03/23/19 03/23/19 03/23/19 16:30 16:30 20:24 Creatine Kinase 95 CK-MB (CK-2) 4.75 H Troponin I 0.016 0.018 Impressions: Chest CT 03/29/19 09:10 IMPRESSION: 1. Asymmetric edema or pneumonia. Small pleural effusions. 2. Left apical lung nodule which will need serial followup. Renal Ultrasound 04/01/19 00:00 IMPRESSION: Normal right kidney. Neither the bladder or the left kidney can be identified. Chest X-Ray 04/03/19 11:26 IMPRESSION: LIMITED STUDY. NO SIGNIFICANT CHANGE. Assessment and Plan - Diagnosis (1) Acute on chronic renal failure Is this a current diagnosis for this admission?: Yes Plan: 03/30: Currently oliguric. Possibly related to hypotensive episodes in the past 2 days. Antihypertensives and Lasix were held yesterday. Will consult nephrology for further recommendations. Will start patient with cautious h ydration with 50 cc/h of normal saline. 03/31: Await further nephrology recommendations. 04/01: Nephrology has evaluated patient and has increased IV fluids to 100 cc/h. 04/02: Appreciate nephro recommendations. Urine output has fairly improved after IV fluids were increased yesterday afternoon. Creatinine improved from 3.7 to 2.9. Continue IV fluids at 100 cc/h. 04/03: Patient's urine output improved yesterday after IV fluids were increased. However, she only put out 100 cc overnight despite being continued on IV fluids. Creatinine went up to 3.7 from 2.9. Potassium has gone up to 5.6. We will continue IV Lasix for the next 24 hours. Will await for further nephrology recommendations tomorrow as she may be a possible dialysis candidate if she continues to be oliguric despite IV fluids. (2) Pneumonia Qualifiers: Pneumonia type: due to unspecified organism Laterality: unspecified laterality Lung location: unspecified part of lung Qualified Code(s): J18.9 - Pneumonia, unspecified organism Is this a current diagnosis for this admission?: Yes Plan: Completed 7 days of IV antibiotics. (3) Diastolic CHF Qualifiers: Heart failure chronicity: chronic Qualified Code(s): I50.32 - Chronic diastolic (congestive) heart failure Is this a current diagnosis for this admission?: Yes Plan: 03/29: Discontinue IV fluids. Hold Lasix today due to low normal blood pressures. 04/01: IV fluids increased to 100 cc/hr per nephro recommendations. (4) Hypertension Qualifiers: Hypertension type: essential hypertension Qualified Code(s): I10 - Essential (primary) hypertension Is this a current diagnosis for this admission?: Yes Plan: 03/29: Blood pressures running low. Hold amlodipine, hydralazine and lisinopril for now. 03/31: Blood pressures have recovered. Restart amlodipine and Coreg. (5) IDDM (insulin dependent diabetes mellitus) Is this a current diagnosis for this admission?: Yes Plan: Continue current insulin regimen. - Time Time Spent with patient: 25-34 minutes
[2019-04-03] MEDS: PATIROMER 8.4 GM SUSP PACKET PO SCH (17:28)
[2019-04-03] MEDS ORDERED: SODIUM POLYSTYRENE SULFONATE 15 GM/60 ML PO ONE (19:12)
[2019-04-03] MEDS: NORMAL SALINE 1000 ML 1,000 ML IV PRN (20:27)
[2019-04-04] MEDS: ACETAMINOPHEN 325 MG TABLET PO PRN (01:09)
[2019-04-04] MEDS: NORMAL SALINE 1000 ML 1,000 ML IV PRN ×2 (05:30→18:32)
[2019-04-04] MEDS: HEPARIN SOD (PORCINE) 5,000 UNIT/ML 1 ML VIAL SUBCUT SCH ×3 (05:34→21:10)
[2019-04-04 06:05] LABS: ANION GAP 7 (5-19); BLOOD UREA NITROGEN 58 mg/dL (7-20); CALCIUM 8.3 mg/dL (8.4-10.2); CARBON DIOXIDE 17 mmol/L (22-30); CHLORIDE 112 mmol/L (98-107); GLUCOSE 82 mg/dL (75-110); POTASSIUM 5.6 mmol/L (3.6-5.0)
[2019-04-04] MEDS: INSULIN GLARGINE,HUM.REC.ANLOG 1,000 UNIT/10 ML VIAL SUBCUT SCH (07:24)
[2019-04-04] MEDS: INSULIN LISPRO 100 UNIT/ML 3 ML VIAL SUBCUT SCH ×4 (07:24→22:13)
[2019-04-04] MEDS: GABAPENTIN 300 MG CAPSULE PO SCH ×2 (09:39→21:10)
[2019-04-04] MEDS: ASPIRIN 81 MG TABLET, ENT COATED PO SCH (09:39)
[2019-04-04] MEDS: ESCITALOPRAM OXALATE 10 MG TABLET PO SCH (09:39)
[2019-04-04] MEDS: AMLODIPINE BESYLATE 10 MG TABLET PO SCH (09:40)
[2019-04-04] MEDS: FAMOTIDINE 20 MG TABLET PO SCH (09:40)
[2019-04-04] MEDS ORDERED: NORMAL SALINE 1000 ML 1,000 ML IV PRN (15:13)
--- NOTE | 2019-04-04 16:10 | PDOC PROGRESS REPORT ---
Subjective Progress Note for:: 04/04/19 Subjective:: This is a 63-year-old female with a past medical history of chronic anemia, chronic kidney disease, IDDM, CHF and HTN presented with weakness and recurrent falls. She was found to have left lower lobe consolidation/pneumonia. Patient was started on IV antibiotics. 03/29: No acute event overnight. Upon encounter, she denies acute complaints. Reports she continues to feel better. Denies chest pain or shortness of breath. Blood pressures running low in the 90/30s. Hold amlodipine, hydralazine and lisinopril for now. 03/30: Patient did not have any urine output last night even after placing English catheter. She has been on 40 mg of Lasix the past few days. Lasix was held last night and she was given a liter of fluid bolus. She did notice minimal urine output. Otherwise she denies acute complaints. Denies chest pain or shortness of breath. 03/31: No acute event overnight. Patient was started on normal saline at 50 cc/h yesterday. However she remains to have low urine output. Await further recommendations from nephrology. Blood pressures have recovered. Restart amlodipine and Coreg. 04/01: Patient made out 250 cc urine output overnight. Nephrology has evaluated patient and has increased IV fluids to 100 cc/h. Otherwise no other acute event overnight. Patient denies acute complaints. Denies shortness of breath or chest pain. 04/02: No acute event overnight. Appreciate nephro recommendations. Urine output has fairly improved after IV fluids were increased yesterday afternoon. Creatinine improved from 3.7 to 2.9. Denies other acute complaints. Denies chest pain or shortness of breath. Continue IV fluids at 100 cc/h. 04/03: Cute event overnight. Patient's urine output improved yesterday after IV fluids were increased. However, she only put out 100 cc overnight despite being continued on IV fluids. Creatinine went up to 3.7 from 2.9. Potassium has gone up to 5.6. We will continue IV Lasix for the next 24 hours. Will await for further nephrology recommendations tomorrow as she may be a possible dialysis candidate if she continues to be oliguric despite IV fluids. 04/04: No acute event overnight. Patient is at her baseline. Denies chest pain or shortness of breath. Urine output continues to be low. She had some loose stools overnight. C. difficile has been negative. Stool culture pending. Denies abdominal pain. Discussed with nephrology. Will continue patient on IV fluids today and will repeat a BMP tomorrow. Reason For Visit: REPEATED FALLS, PNEUMONIA, OBESITY, GENERALIZED Physical Exam Vital Signs: Temp Pulse Resp BP Pulse Ox 97.6 F 56 L 20 123/50 L 95 04/04/19 10:59 04/04/19 10:59 04/04/19 10:59 04/04/19 10:59 04/04/19 10:59 Intake & Output 04/03/19 04/04/19 04/05/19 06:59 06:59 06:59 Intake Total 1600 1055 236 Output Total 100 80 Balance 1500 975 236 Weight 328 lb 11.347 oz 327 lb 2.656 oz General appearance: PRESENT: no acute distress, obese Head exam: PRESENT: atraumatic, normocephalic Eye exam: PRESENT: conjunctiva pink, EOMI, PERRLA. ABSENT: scleral icterus Ear exam: PRESENT: normal external ear exam Mouth exam: PRESENT: moist, tongue midline Neck exam: ABSENT: carotid bruit, JVD, lymphadenopathy, thyromegaly Respiratory exam: PRESENT: clear to auscultation vadim. ABSENT: rales, rhonchi, wheezes Cardiovascular exam: PRESENT: RRR. ABSENT: diastolic murmur, rubs, systolic murmur Pulses: PRESENT: normal dorsalis pedis pul GI/Abdominal exam: PRESENT: normal bowel sounds, soft. ABSENT: distended, guarding, mass, organolmegaly, rebound, tenderness Rectal exam: PRESENT: deferred Extremities exam: PRESENT: +1 edema Neurological exam: PRESENT: alert, awake, oriented to person, oriented to place, oriented to time, CN II-XII grossly intact. ABSENT: motor sensory deficit Results Laboratory Results: 03/30/19 09:43 04/04/19 04:41 04/03/19 04/04/19 15:35 04:41 Sodium 136.4 L Potassium 5.5 H 5.6 H Chloride 112 H Carbon Dioxide 17 L Anion Gap 7 BUN 58 H Creatinine 3.85 H Est GFR ( Amer) 14 L Glucose 82 Calcium 8.3 L 04/02/19 21:10 Stool - Stool - Final 03/23/19 03/23/19 03/23/19 16:30 16:30 20:24 Creatine Kinase 95 CK-MB (CK-2) 4.75 H Troponin I 0.016 0.018 Impressions: Chest CT 03/29/19 09:10 IMPRESSION: 1. Asymmetric edema or pneumonia. Small pleural effusions. 2. Left apical lung nodule which will need serial followup. Renal Ultrasound 04/01/19 00:00 IMPRESSION: Normal right kidney. Neither the bladder or the left kidney can be identified. Chest X-Ray 04/03/19 11:26 IMPRESSION: LIMITED STUDY. NO SIGNIFICANT CHANGE. Assessment and Plan - Diagnosis (1) Acute on chronic renal failure Is this a current diagnosis for this admission?: Yes Plan: 03/30: Currently oliguric. Possibly related to hypotensive episodes in the past 2 days. Antihypertensives and Lasix were held yesterday. Will consult nephrology for further recommendations. Will start patient with cautious hydration with 50 cc/h of normal saline. 03/31: Await further nephrology recommendations. 04/01: Nephrology has evaluated patient and has increased IV fluids to 100 cc/h. 04/02: Appreciate nephro recommendations. Urine output has fairly improved after IV fluids were increased yesterday afternoon. Creatinine improved from 3.7 to 2.9. Continue IV fluids at 100 cc/h. 04/03: Patient's urine output improved yesterday after IV fluids were increased. However, she only put out 100 cc overnight despite being continued on IV fluids. Creatinine went up to 3.7 from 2.9. Potassium has gone up to 5.6. We will continue IV Lasix for the next 24 hours. Will await for further nephrology recommendations tomorrow as she may be a possible dialysis candidate if she continues to be oliguric despite IV fluids. 04/04: Continues to have low urine output. Creatinine continues to trend up. Discussed with nephrology. Will continue patient on IV fluids today and will repeat a BMP tomorrow. (2) Pneumonia Qualifiers: Pneumonia type: due to unspecified organism Laterality: unspecified laterality Lung location: unspecified part of lung Qualified Code(s): J18.9 - Pneumonia, unspecified organism Is this a current diagnosis for this admission?: Yes Plan: Completed 7 days of IV antibiotics. (3) Diastolic CHF Qualifiers: Heart failure chronicity: chronic Qualified Code(s): I50.32 - Chronic diastolic (congestive) heart failure Is this a current diagnosis for this admission?: Yes Plan: 03/29: Discontinue IV fluids. Hold Lasix today due to low normal blood pressures. 04/01: IV fluids increased to 100 cc/hr per nephro recommendations. (4) Hypertension Qualifiers: Hypertension type: essential hypertension Qualified Code(s): I10 - Essential (primary) hypertension Is this a current diagnosis for this admission?: Yes Plan: 03/29: Blood pressures running low. Hold amlodipine, hydralazine and lisinopril for now. 03/31: Blood pressures have recovered. Restart amlodipine and Coreg. (5) IDDM (insulin dependent diabetes mellitus) Is this a current diagnosis for this admission?: Yes Plan: Continue current insulin regimen. - Time Time Spent with patient: 25-34 minutes
[2019-04-04] MEDS: PATIROMER 8.4 GM SUSP PACKET PO SCH (17:01)
--- NOTE | 2019-04-04 18:06 | PDOC PROGRESS REPORT ---
Subjective Progress Note for:: 04/04/19 Reason For Visit: Patient was seen today.She complains of being hard of hearing on the right side which she says is rather new.However she denies any history of headache or focal deficits. She apparently has had no falls since being in the hospital. She has a bruise on her left half of the face which she says is old. She denies physical complaints of any chest pain or shortness of breath abdominal pains or fever.Her blood pressure has been fluctuant over the last couple of days from normal to hypotensive. Also I note that she was bradycardic and the Coreg has been held and since then has been picking up. Urine output has not yet picked up.Labs and medications were reviewed. Physical Exam Vital Signs: Temp Pulse Resp BP Pulse Ox 97.6 F 54 L 18 115/52 L 96 04/04/19 15:28 04/04/19 15:28 04/04/19 15:28 04/04/19 15:28 04/04/19 15:28 Intake & Output 04/03/19 04/04/19 04/05/19 06:59 06:59 06:59 Intake Total 1600 1055 1236 Output Total 100 80 100 Balance 1791 023 5609 Weight 149.1 kg 148.4 kg 148.4 kg General appearance: PRESENT: no acute distress Respiratory exam: PRESENT: chest wall tenderness, decreased breath sounds. ABSENT: crackles Cardiovascular exam: PRESENT: +S1, +S2, systolic murmur GI/Abdominal exam: PRESENT: normal bowel sounds, soft. ABSENT: organomegaly, tenderness Extremities exam: ABSENT: pedal edema Neurological exam: PRESENT: alert, awake, oriented to person, oriented to place Psychiatric exam: PRESENT: appropriate affect Results Laboratory Results: 03/30/19 09:43 04/04/19 04:41 04/04/19 04:41 Sodium 136.4 L Potassium 5.6 H Chloride 112 H Carbon Dioxide 17 L Anion Gap 7 BUN 58 H Creatinine 3.85 H Est GFR ( Amer) 14 L Glucose 82 Calcium 8.3 L 04/02/19 21:10 Stool - Stool - Final 03/23/19 03/23/19 03/23/19 16:30 16:30 20:24 Creatine Kinase 95 CK-MB (CK-2) 4.75 H Troponin I 0.016 0.018 Impressions: Chest CT 03/29/19 09:10 IMPRESSION: 1. Asymmetric edema or pneumonia. Small pleural effusions. 2. Left apical lung nodule which will need serial followup. Renal Ultrasound 04/01/19 00:00 IMPRESSION: Normal right kidney. Neither the bladder or the left kidney can be identified. Chest X-Ray 04/03/19 11:26 IMPRESSION: LIMITED STUDY. NO SIGNIFICANT CHANGE. Assessment & Plan - Diagnosis (1) Acute on chronic renal failure Is this a current diagnosis for this admission?: Yes Plan: Patient has got acute oliguric decompensation of baseline CKD stage IV with a base creatinine of 2.5-3. Currently she is not producing enough of urine and clinically she is dehydrated. She is also been having fluctuating blood pressures including hypo-being hypotensive and bradycardic. I agree with the current antihypertensives being held but will also hold off on amlodipine. Increase IV fluids 150 cc/h. Monitor.No indication currently for initiation of renal replacements.She has got hyperkalemia which can be treated with appropriate medications. Mild acidosis (2) Chronic kidney disease, stage IV (severe) Is this a current diagnosis for this admission?: Yes Plan: She is got underlying CKD stage IV from diabetic hypertensive disease. Base creatinine 2.5-3. (3) Dehydration Plan: Clinically she still remains so. Diuretics have been held. Withhold any antihypertensives. Monitor for any signs of infection given that her blood pressure has been starting to fluctuate to being hypotensive. Monitor carefully. Increase IV fluids as mentioned earlier. (4) Pneumonia Qualifiers: Pneumonia type: due to unspecified organism Laterality: unspecified laterality Lung location: unspecified part of lung Qualified Code(s): J18.9 - Pneumonia, unspecified organism Is this a current diagnosis for this admission?: Yes Plan: Currently off all antibiotics. (5) Abdominal pain Plan: Currently looks better. Monitor. (6) Diabetes mellitus type 2 in obese Plan: As per hospitalist. (7) HTN (hypertension) Qualifiers: Hypertension type: essential hypertension Qualified Code(s): I10 - Essential (primary) hypertension Plan: Normal to hypotensive. All antihypertensives on hold. Monitor for any signs of infection/sepsis. Will check UA.Also add a CBC with differential. (8) Diarrhea Plan: Apparently chronic. C. difficile so far negative.
[2019-04-04 22:08] LABS: AMORPHOUS SEDIMENT,URINE TRACE /HPF; APPEARANCE,URINE TURBID; BILIRUBIN,URINE NEGATIVE (NEGATIVE); CALCIUM OXALATE CRYSTALS,URINE TOO NUMEROUS TO CNT /HPF; COLOR,URINE AMBER; GLUCOSE, URINE 50 mg/dL (NEGATIVE); KETONES,URINE NEGATIVE (NEGATIVE); LEUKOCYTE ESTERASE,URINE LARGE (NEGATIVE); NITRITE,URINE NEGATIVE (NEGATIVE); PROTEIN,URINE >=500 mg/dL (NEGATIVE); URINE SPECIFIC GRAVITY 1.017; UROBILINOGEN,URINE NEGATIVE mg/dL (<2.0)
[2019-04-05] MEDS: NORMAL SALINE 1000 ML 1,000 ML IV PRN ×4 (00:57→22:55)
[2019-04-05] MEDS: HEPARIN SOD (PORCINE) 5,000 UNIT/ML 1 ML VIAL SUBCUT SCH ×3 (05:15→21:35)
[2019-04-05 06:30] LABS: HEMATOCRIT 25.7 % (36.0-47.0); HEMOGLOBIN 8.2 g/dL (12.0-15.5); MEAN CORPUSCULAR HEMOGLOBIN 31.3 pg (27.0-33.4); MEAN CORPUSCULAR VOLUME 98 fl (80-97); PLATELET COUNT 217 10^3/uL (150-450); RED BLOOD COUNT 2.62 10^6/uL (3.72-5.28); WHITE BLOOD COUNT 5.1 10^3/uL (4.0-10.5)
[2019-04-05 06:31] LABS: ANION GAP 8 (5-19); BLOOD UREA NITROGEN 60 mg/dL (7-20); CALCIUM 8.1 mg/dL (8.4-10.2); CARBON DIOXIDE 17 mmol/L (22-30); CHLORIDE 112 mmol/L (98-107); GLUCOSE 72 mg/dL (75-110); POTASSIUM 5.1 mmol/L (3.6-5.0)
[2019-04-05 06:57] LABS: ABSOLUTE LYMPHOCYTES# (MANUAL) 0.6 10^3/uL (0.5-4.7); ABSOLUTE MONOCYTES # (MANUAL) 0.7 10^3/uL (0.1-1.4); BASOPHILS % (MANUAL) 0 % (0-2); EOSINOPHILS % (MANUAL) 0 % (0-6); LYMPHOCYTES % (MANUAL) 12 % (13-45); MONOCYTES % (MANUAL) 13 % (3-13); SEGMENTED NEUTROPHILS % (MAN) 75 % (42-78); TOTAL CELLS COUNTED 100
[2019-04-05 06:59] LABS: ANISOCYTOSIS 1+; PLATELET COMMENT ADEQUATE
[2019-04-05] MEDS: INSULIN GLARGINE,HUM.REC.ANLOG 1,000 UNIT/10 ML VIAL SUBCUT SCH (07:24)
[2019-04-05] MEDS: INSULIN LISPRO 100 UNIT/ML 3 ML VIAL SUBCUT SCH ×4 (07:24→22:56)
[2019-04-05] MEDS: GABAPENTIN 300 MG CAPSULE PO SCH ×2 (09:49→21:35)
[2019-04-05] MEDS: ESCITALOPRAM OXALATE 10 MG TABLET PO SCH (09:49)
[2019-04-05] MEDS: FAMOTIDINE 20 MG TABLET PO SCH (09:49)
[2019-04-05] MEDS: ASPIRIN 81 MG TABLET, ENT COATED PO SCH (09:49)
[2019-04-05 12:40] LABS: URINE CREATININE 251.6 mg/dL (15-278)
[2019-04-05 12:53] LABS: UR PRO/CREAT RATIO RESULT 2.1 mg/mg (0.0-0.2)
[2019-04-05] MEDS ORDERED: NORMAL SALINE 1000 ML 1,000 ML IV PRN (13:10)
--- NOTE | 2019-04-05 13:19 | PDOC PROGRESS REPORT ---
Subjective Progress Note for:: 04/05/19 Reason For Visit: Patient seen today. Denies any specific complaints of chest pain shortness of breath. Appetite is improving. Labs and medications were reviewed. Creatinine looks like it is stabilizing.Denies any history of abdominal pains or dysuria or fever or chills. UA suggestive of UTI Physical Exam Vital Signs: Temp Pulse Resp BP Pulse Ox 97.3 F 58 L 19 112/56 L 94 04/05/19 00:10 04/05/19 08:00 04/05/19 08:00 04/05/19 08:00 04/05/19 11:05 Intake & Output 04/04/19 04/05/19 04/06/19 06:59 06:59 06:59 Intake Total 1055 2199 983 Output Total 80 250 Balance 975 1949 983 Weight 148.4 kg 153.4 kg General appearance: PRESENT: no acute distress Respiratory exam: PRESENT: clear to auscultation vadim, decreased breath sounds. ABSENT: crackles Cardiovascular exam: PRESENT: +S1, +S2, systolic murmur GI/Abdominal exam: PRESENT: normal bowel sounds, soft. ABSENT: organomegaly, tenderness Extremities exam: ABSENT: joint swelling, pedal edema Neurological exam: PRESENT: alert, awake, oriented to person, oriented to place Psychiatric exam: PRESENT: appropriate affect Results Laboratory Results: 04/05/19 05:21 04/05/19 05:21 04/04/19 04/05/19 04/05/19 18:25 05:21 05:21 WBC 5.1 RBC 2.62 L Hgb 8.2 L Hct 25.7 L MCV 98 H MCH 31.3 MCHC 32.0 RDW 17.0 H Plt Count 217 Seg Neutrophils % Not Reportable Sodium 137.4 Potassium 5.1 H Chloride 112 H Carbon Dioxide 17 L Anion Gap 8 BUN 60 H Creatinine 3.85 H Est GFR ( Amer) 14 L Glucose 72 L Calcium 8.1 L Urine Color [place]RIA Urine Appearance TURBID Urine pH 5.0 Ur Specific [place] 1.017 Urine Protein >=500 H Urine Glucose (UA) 50 H Urine Ketones NEGATIVE Urine Blood LARGE H Urine Nitrite NEGATIVE Ur Leukocyte Esterase LARGE H Urine WBC (Auto) >182 Urine RBC (Auto) >182 04/02/19 21:10 Stool - Stool - Final 02/01/20 21:10 Stool - Stool Stool Culture - Final NO SALMONELLA, SHIGELLA, CAMPYLOBACTER, OR E.COLI 0157 RECOVERED. NEGATIVE FOR SHIGA TOXINS 1&2. 03/23/19 03/23/19 03/23/19 16:30 16:30 20:24 Creatine Kinase 95 CK-MB (CK-2) 4.75 H Troponin I 0.016 0.018 Impressions: Chest CT 03/29/19 09:10 IMPRESSION: 1. Asymmetric edema or pneumonia. Small pleural effusions. 2. Left apical lung nodule which will need serial followup. Renal Ultrasound 04/01/19 00:00 IMPRESSION: Normal right kidney. Neither the bladder or the left kidney can be identified. Chest X-Ray 04/03/19 11:26 IMPRESSION: LIMITED STUDY. NO SIGNIFICANT CHANGE. Assessment & Plan - Diagnosis (1) Acute on chronic renal failure Is this a current diagnosis for this admission?: Yes Plan: Patient has got acute oliguric decompensation of baseline CKD stage IV with a base creatinine of 2.5-3. Currently she is not producing enough of urine and clinically she is dehydrated. She is also been having fluctuating blood pressures including hypo-being hypotensive and bradycardic. Continue with IV fluids 150 cc/h. Monitor.No indication currently for initiation of renal replacements.She has got hyperkalemia which can be treated with appropriate medications. Mild acidosis (2) Chronic kidney disease, stage IV (severe) Is this a current diagnosis for this admission?: Yes Plan: She is got underlying CKD stage IV from diabetic hypertensive disease. Base creatinine 2.5-3. (3) Dehydration Plan: Clinically she still remains so. Diuretics have been held. Withhold any antihypertensives. Monitor for any signs of infection given that her blood pressure has been starting to fluctuate to being hypotensive. Monitor carefully. Increase IV fluids as mentioned earlier. (4) Pneumonia Qualifiers: Pneumonia type: due to unspecified organism Laterality: unspecified laterality Lung location: unspecified part of lung Qualified Code(s): J18.9 - Pneumonia, unspecified organism Is this a current diagnosis for this admission?: Yes Plan: Currently off all antibiotics. (5) Diabetes mellitus type 2 in obese Plan: As per hospitalist. (6) HTN (hypertension) Qualifiers: Hypertension type: essential hypertension Qualified Code(s): I10 - Essential (primary) hypertension Plan: Normal to hypotensive. All antihypertensives on hold. Monitor for any signs of infection/sepsis. Looks like she has UTI. Will get urine culture sent and started on IV Rocephin pending cultures. (7) Diarrhea Plan: Apparently chronic. C. difficile so far negative. (8) Urinary tract infection Qualifiers: Urinary tract infection type: site unspecified Hematuria presence: without hematuria Qualified Code(s): N39.0 - Urinary tract infection, site not specified Plan: Initially UA suggestive. Get cultures. Hypotension could be initial symptom of going into sepsis. Start antibiotics. Monitor.
--- NOTE | 2019-04-05 13:28 | PDOC CONSULTATION ---
Consultation Consult Date: 04/05/19 Provider Consulted: CAMELIA PINEDA Consult reason:: Chronic diarrhea History of Present Illness Admission Date/PCP: 03/23/19 18:51 NATACHA CORMIER MD History of Present Illness: FINA HERNÁNDEZ is a 63 year old female patient admitted to the hospitalist service has CKD and followed by nephrology , noted to have chronic diarrhea denies any hematochezia denies any recent new medications patient had been seen in the past with previous EGD's with botox for gastr oparesis previous colonoscopy was 2 years ago and was done to rule out for GI bleeding had polyp removed at that time patient says has not had follow up since then now has multiple loose stools per day she is not quite due for surveillance, however can schedule repeat colonoscopy to exclude for possible colitis if patient is willing Past Medical History Cardiac Medical History: Reports: Congestive Heart Failure, Coronary Artery Disease, Hyperlipidema, Hypertension Denies: Atrial Fibrillation, DVT, Myocardial Infarction, Peripheral Vascular Disease, Pulmonary Embolism Pulmonary Medical History: Reports: Asthma, Respiratory Failure, Sleep Apnea - Not using CPAP at home Denies: Bronchitis, Chronic Obstructive Pulmonary Disease (COPD), Pneumonia Neurological Medical History: Denies: Seizures Endocrine Medical History: Reports: Diabetes Mellitus Type 2 Denies: Diabetes Mellitus Type 1, Hyperthyroidism, Hypothyroidism GI Medical History: Denies: Cirrhosis, Crohn's Disease, Hepatitis, Ulcerative Colitis Musculoskeltal Medical History: Reports: Arthritis Denies: Gout Skin Medical History: Denies: Eczema, Psoriasis Psychiatric Medical History: Reports: Depression Hematology: Reports: Anemia Denies: Bleeding Tendencies Past Surgical History Past Surgical History: Reports: Cholecystectomy, Tonsillectomy, Tubal Ligation, Other - Carpal tunnel Social History Smoking Status: Former Smoker Frequency of Alcohol Use: None Hx Recreational Drug Use: No Drugs: None Hx Prescription Drug Abuse: No - Advance Directive Resuscitation Status: Full Code Family History Family History: CAD, DM, Hypertension Parental Family History Reviewed: Yes Children Family History Reviewed: Unknown Sibling(s) Family History Reviewed.: Unknown Medication/Allergy Home Medications: Aspirin [Adult Low Dose Aspirin EC] 81 mg PO DAILY 01/18/19 Carvedilol [Coreg 12.5 mg Tablet] 12.5 mg PO Q12 01/18/19 Escitalopram Oxalate [Lexapro] 20 mg PO DAILY 01/18/19 Furosemide [Lasix 40 mg Tablet] 40 mg PO DAILY 01/18/19 Gabapentin [Neurontin 300 mg Capsule] 600 mg PO QPM 01/18/19 Gabapentin [Neurontin 300 mg Capsule] 900 mg PO QAM 01/18/19 Insulin Glargine,Hum.rec.anlog [Lantus Insulin 100 Unit/1 ml 10 ml] 15 units SQ QAM 01/18/19 Lisinopril [Zestril] 40 mg PO DAILY 01/18/19 Mirabegron [Myrbetriq] 50 mg PO DAILY 01/18/19 Pantoprazole Sodium [Protonix [address] Tablet] 40 mg PO DAILY 01/18/19 Tramadol HCl [Ultram 50 mg Tablet] 50 mg PO Q8 01/18/19 Hydralazine HCl [Apresoline 50 mg Tablet] 50 mg PO Q8 30 Days #90 tablet 01/29/19 Cephalexin Monohydrate [Keflex 500 mg Capsule] 500 mg PO QID #20 capsule 03/14/19 Amlodipine Besylate [Norvasc 10 mg Tablet] 10 mg PO DAILY 03/23/19 Allergies/Adverse Reactions: No Known Allergies Allergy (Verified 01/17/19 15:35) Review of Systems Constitutional: ABSENT: fever(s), headache(s), night sweats, weakness Eyes: ABSENT: visual disturbances Ears: ABSENT: hearing changes Nose, Mouth, and Throat: ABSENT: mouth pain, sore throat Cardiovascular: ABSENT: edema, orthropnea, palpitations Respiratory: ABSENT: dyspnea, hemoptysis Gastrointestinal: PRESENT: diarrhea. ABSENT: hematemesis, hematochezia Genitourinary: ABSENT: dysuria, hematuria Musculoskeletal: ABSENT: deformity, joint swelling Neurological: ABSENT: syncope, tingling, tremor(s), vertigo Endocrine: ABSENT: polydipsia, polyphagia, polyuria Hematologic/Lymphatic: ABSENT: easy bruising Physical Exam Vital Signs: Temp Pulse Resp BP Pulse Ox 97.3 F 58 L 19 112/56 L 94 04/05/19 00:10 04/05/19 08:00 04/05/19 08:00 04/05/19 08:00 04/05/19 11:05 Intake & Output 04/04/19 04/05/19 04/06/19 06:59 06:59 06:59 Intake Total 1055 2199 983 Output Total 80 250 Balance 975 1949 983 Weight 148.4 kg 153.4 kg General appearance: PRESENT: mild distress Head exam: PRESENT: atraumatic, normocephalic Eye exam: PRESENT: EOMI, PERRLA. ABSENT: nystagmus, scleral icterus Mouth exam: PRESENT: moist. ABSENT: neck supple Throat exam: ABSENT: tonsillar exudate, tonsillogmegaly Neck exam: ABSENT: meningismus, tenderness, thyromegaly Respiratory exam: PRESENT: symmetrical, unlabored. ABSENT: tachypnea, wheezes Cardiovascular exam: PRESENT: RRR, +S1, +S2 GI/Abdominal exam: PRESENT: soft. ABSENT: rebound, rigid, tenderness Extremities exam: ABSENT: pedal edema Musculoskeletal exam: PRESENT: full ROM Neurological exam: PRESENT: oriented to time, oriented to situation, CN II-XII grossly intact Focused psych exam: ABSENT: restlessness Skin exam: PRESENT: normal color. ABSENT: mottled, pallor, urticaria, vesicles Results Laboratory Results: 04/05/19 05:21 04/05/19 05:21 04/04/19 04/05/19 04/05/19 18:25 05:21 05:21 WBC 5.1 RBC 2.62 L Hgb 8.2 L Hct 25.7 L MCV 98 H MCH 31.3 MCHC 32.0 RDW 17.0 H Plt Count 217 Seg Neutrophils % Not Reportable Sodium 137.4 Potassium 5.1 H Chloride 112 H Carbon Dioxide 17 L Anion Gap 8 BUN 60 H Creatinine 3.85 H Est GFR ( Amer) 14 L Glucose 72 L Calcium 8.1 L Urine Color [place] Urine Appearance TURBID Urine pH 5.0 Ur Specific [place] 1.017 Urine Protein >=500 H Urine Glucose (UA) 50 H Urine Ketones NEGATIVE Urine Blood LARGE H Urine Nitrite NEGATIVE Ur Leukocyte Esterase LARGE H Urine WBC (Auto) >182 Urine RBC (Auto) >182 04/02/19 21:10 Stool - Stool - Final 04/02/19 21:10 Stool - Stool Stool Culture - Final NO SALMONELLA, SHIGELLA, CAMPYLOBACTER, OR E.COLI 0157 RECOVERED. NEGATIVE FOR SHIGA TOXINS 1&2. 03/23/19 03/23/19 03/23/19 16:30 16:30 20:24 Creatine Kinase 95 CK-MB (CK-2) 4.75 H Troponin I 0.016 0.018 Impressions: Chest CT 03/29/19 09:10 IMPRESSION: 1. Asymmetric edema or pneumonia. Small pleural effusions. 2. Left apical lung nodule which will need serial followup. Renal Ultrasound 04/01/19 00:00 IMPRESSION: Normal right kidney. Neither the bladder or the left kidney can be identified. Chest X-Ray 04/03/19 11:26 IMPRESSION: LIMITED STUDY. NO SIGNIFICANT CHANGE. Assessment & Plan - Diagnosis (1) Diarrhea Plan: Chronic diarrhea , could be due to choleretic diarrhea had polyp in the past this was on a colonoscopy performed 2 years ago due for surveillance actually next year however if symptoms are chronic can perform earlier to exclude a colitis Risks, benefits and alternatives are discussed with the patient in detail further recommendations to follow - Time Time Spent: 50 to 70 Minutes
[2019-04-05] MEDS: ACETAMINOPHEN 325 MG TABLET PO PRN (13:33)
[2019-04-05] MEDS: CEFTRIAXONE 1 GM/D5W RTU 1 GM/50 ML RTUPB IV SCH (13:34)
--- NOTE | 2019-04-05 14:46 | PDOC PROGRESS REPORT ---
Subjective Progress Note for:: 04/05/19 Subjective:: No adverse events overnight. She has had minimal urine output today despite being on fluids. Creatinine has not improved. Blood pressures have been essentially normal. Reason For Visit: REPEATED FALLS, PNEUMONIA, OBESITY, GENERALIZED Physical Exam Vital Signs: Temp Pulse Resp BP Pulse Ox 97.3 F 57 L 18 138/50 H 96 04/05/19 00:10 04/05/19 11:24 04/05/19 11:24 04/05/19 11:24 04/05/19 11:24 Intake & Output 04/04/19 04/05/19 04/06/19 06:59 06:59 06:59 Intake Total 1055 2199 1033 Output Total 80 250 Balance 975 1949 1033 Weight 148.4 kg 153.4 kg General appearance: PRESENT: no acute distress, obese Respiratory exam: PRESENT: clear to auscultation vadim. ABSENT: rales, rhonchi, wheezes Cardiovascular exam: PRESENT: RRR. ABSENT: diastolic murmur, rubs, systolic murmur Pulses: PRESENT: normal dorsalis pedis pul GI/Abdominal exam: PRESENT: normal bowel sounds, soft, pitting edema as superior as the upper abdomen. ABSENT: distended, guarding, mass, organolmegaly, rebound, tenderness Rectal exam: PRESENT: deferred Extremities exam: PRESENT: +2 edema, diffuse anasarca Neurological exam: PRESENT: alert, awake, oriented to person, oriented to place Results Laboratory Results: 04/05/19 05:21 04/05/19 05:21 04/04/19 04/05/19 04/05/19 18:25 05:21 05:21 WBC 5.1 RBC 2.62 L Hgb 8.2 L Hct 25.7 L MCV 98 H MCH 31.3 MCHC 32.0 RDW 17.0 H Plt Count 217 Seg Neutrophils % Not Reportable Sodium 137.4 Potassium 5.1 H Chloride 112 H Carbon Dioxide 17 L Anion Gap 8 BUN 60 H Creatinine 3.85 H Est GFR ( Amer) 14 L Glucose 72 L Calcium 8.1 L Urine Color ANDRIA Urine Appearance TURBID Urine pH 5.0 Ur Specific Bryan 1.017 Urine Protein >=500 H Urine Glucose (UA) 50 H Urine Ketones NEGATIVE Urine Blood LARGE H Urine Nitrite NEGATIVE Ur Leukocyte Esterase LARGE H Urine WBC (Auto) >182 Urine RBC (Auto) >182 04/02/19 21:10 Stool - Stool - Final 04/02/19 21:10 Stool - Stool Stool Culture - Final NO SALMONELLA, SHIGELLA, CAMPYLOBACTER, OR E.COLI 0157 RECOVERED. NEGATIVE FOR SHIGA TOXINS 1&2. 03/23/19 03/23/19 03/23/19 16:30 16:30 20:24 Creatine Kinase 95 CK-MB (CK-2) 4.75 H Troponin I 0.016 0.018 Impressions: Chest CT 03/29/19 09:10 IMPRESSION: 1. Asymmetric edema or pneumonia. Small pleural effusions. 2. Left apical lung nodule which will need serial followup. Renal Ultrasound 04/01/19 00:00 IMPRESSION: Normal right kidney. Neither the bladder or the left kidney can be identified. Chest X-Ray 04/03/19 11:26 IMPRESSION: LIMITED STUDY. NO SIGNIFICANT CHANGE. Assessment and Plan - Diagnosis (1) Acute on chronic renal failure Is this a current diagnosis for this admission?: Yes Plan: Persistently oliguric. Creatinine still 3.85 despite aggressive IV fluids. Patient has diffuse anasarca. Nephrology is recommending to continue with aggressive IV fluids. (2) Diarrhea Qualifiers: Diarrhea type: unspecified type Qualified Code(s): R19.7 - Diarrhea, unspecified Is this a current diagnosis for this admission?: Yes Plan: Sort of a chronic problem for her, gastroenterology has been consulted. This will likely be worked up as an outpatient. (3) Morbid obesity with BMI of 45.0-49.9, adult Is this a current diagnosis for this admission?: Yes Plan: Encouraged lifestyle modification, but I question her motivation (4) Pneumonia Qualifiers: Pneumonia type: due to unspecified organism Laterality: unspecified laterality Lung location: unspecified part of lung Qualified Code(s): J18.9 - Pneumonia, unspecified organism Is this a current diagnosis for this admission?: Yes Plan: Resolved (5) Diastolic CHF Qualifiers: Heart failure chronicity: chronic Qualified Code(s): I50.32 - Chronic diastolic (congestive) heart failure Is this a current diagnosis for this admission?: Yes Plan: Her creatinine continues to rise, and nephrology is continuing to recommend aggressive IV fluids, despite the fact that she has diffuse anasarca. We will continue to watch for signs of cardiopulmonary decompensation. - Time Time Spent with patient: 25-34 minutes
[2019-04-05] MEDS: PATIROMER 8.4 GM SUSP PACKET PO SCH (17:58)
[2019-04-05 20:34] LABS: ALBUMIN 2.7 g/dL (3.5-5.0); ALKALINE PHOSPHATASE 71 U/L (38-126); ASPARTATE AMINO TRANSFERASE 18 U/L (14-36); BILIRUBIN,DIRECT 0.3 mg/dL (0.0-0.4); BILIRUBIN,TOTAL 0.3 mg/dL (0.2-1.3); TOTAL PROTEIN 5.4 g/dL (6.3-8.2)
[2019-04-06] MEDS: HEPARIN SOD (PORCINE) 5,000 UNIT/ML 1 ML VIAL SUBCUT SCH ×3 (05:03→21:33)
[2019-04-06 06:52] LABS: ANION GAP 11 (5-19); BLOOD UREA NITROGEN 58 mg/dL (7-20); CALCIUM 7.9 mg/dL (8.4-10.2); CARBON DIOXIDE 16 mmol/L (22-30); CHLORIDE 111 mmol/L (98-107); GLUCOSE 74 mg/dL (75-110); POTASSIUM 5.2 mmol/L (3.6-5.0)
[2019-04-06] MEDS: INSULIN LISPRO 100 UNIT/ML 3 ML VIAL SUBCUT SCH ×4 (07:48→21:51)
[2019-04-06] MEDS: INSULIN GLARGINE,HUM.REC.ANLOG 1,000 UNIT/10 ML VIAL SUBCUT SCH (07:48)
[2019-04-06] MEDS: ESCITALOPRAM OXALATE 10 MG TABLET PO SCH (09:15)
[2019-04-06] MEDS: GABAPENTIN 300 MG CAPSULE PO SCH (09:16)
[2019-04-06] MEDS: CEFTRIAXONE 1 GM/D5W RTU 1 GM/50 ML RTUPB IV SCH (09:16)
[2019-04-06] MEDS: ASPIRIN 81 MG TABLET, ENT COATED PO SCH (09:16)
[2019-04-06] MEDS: FAMOTIDINE 20 MG TABLET PO SCH (09:16)
--- NOTE | 2019-04-06 11:45 | PDOC PROGRESS REPORT ---
Subjective Progress Note for:: 04/06/19 Reason For Visit: Patient seen today. She is continuing to have loose bowels but has not had any so far this morning. Poor intake. Denies any history of chest pains or shortness of breath. She complains of lower abdominal pain around her vaginal area. English catheter is in and shows scanty dark-colored urine. No complaints of any fever or chills. Patient medications were reviewed. Pressure still continues to remain low in spite of being off all antihypertensives. No CBC with differential was done today. Urine cultures are pending. She has been begun on IV Rocephin by me yesterday.Still continues to have poor output. Physical Exam Vital Signs: Temp Pulse Resp BP Pulse Ox 97.1 F 52 L 18 101/34 L 98 04/06/19 03:35 04/06/19 08:00 04/06/19 08:00 04/06/19 08:00 04/06/19 08:00 Intake & Output 04/05/19 04/06/19 04/07/19 06:59 06:59 06:59 Intake Total 2199 2687 Output Total 250 45 Balance 1949 2642 Weight 153.4 kg 157.4 kg General appearance: PRESENT: no acute distress Respiratory exam: PRESENT: clear to auscultation vadim, decreased breath sounds. ABSENT: crackles Cardiovascular exam: PRESENT: +S1, +S2, systolic murmur GI/Abdominal exam: PRESENT: normal bowel sounds, soft. ABSENT: organomegaly, tenderness Extremities exam: PRESENT: pedal edema - She has got anasarca. Neurological exam: PRESENT: alert, awake, oriented to person. ABSENT: oriented to place Psychiatric exam: PRESENT: flat affect Skin exam: ABSENT: cyanosis, erythema, mottled, rash Results Laboratory Results: 04/05/19 05:21 04/06/19 05:09 04/05/19 04/05/19 04/06/19 19:57 19:57 05:09 Sodium 138.1 Potassium 5.2 H Chloride 111 H Carbon Dioxide 16 L Anion Gap 11 BUN 58 H Creatinine 3.79 H Est GFR ( Amer) 14 L Glucose 74 L Calcium 7.9 L Total Bilirubin 0.3 AST 18 Alkaline Phosphatase 71 Total Protein 5.4 L Albumin 2.7 L 2.7 L 04/02/19 21:10 Stool - Stool - Final 04/02/19 21:10 Stool - Stool Stool Culture - Final NO SALMONELLA, SHIGELLA, CAMPYLOBACTER, OR E.COLI 0157 RECOVERED. NEGATIVE FOR SHIGA TOXINS 1&2. 03/23/19 03/23/19 03/23/19 16:30 16:30 20:24 Creatine Kinase 95 CK-MB (CK-2) 4.75 H Troponin I 0.016 0.018 Impressions: Chest CT 03/29/19 09:10 IMPRESSION: 1. Asymmetric edema or pneumonia. Small pleural effusions. 2. Left apical lung nodule which will need serial followup. Renal Ultrasound 04/01/19 00:00 IMPRESSION: Normal right kidney. Neither the bladder or the left kidney can be identified. Chest X-Ray 04/03/19 11:26 IMPRESSION: LIMITED STUDY. NO SIGNIFICANT CHANGE. Assessment & Plan - Diagnosis (1) Acute on chronic renal failure Is this a current diagnosis for this admission?: Yes Plan: Patient has got acute oliguric decompensation of baseline CKD stage IV with a base creatinine of 2.5-3. Currently she is not producing enough of urine and clinically she is dehydrated. She is volume depleted from her diarrhea as well as possibly getting septic. Got anasarca from hypoalbuminemia and she is also got near nephrotic range proteinuria. Yesterday the urine cultures were done which is still pending and that begun on Rocephin. She is also been having fluctuating blood pressures including hypo-being hypotensive and bradycardic. Continue with IV fluids 150 cc/h. Monitor.No indication currently for initiation of renal replacements.She has got hyperkalemia which can be treated with appropriate medications. RTA. 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 Base cr eatinine 2.5-3. (3) Dehydration Plan: Clinically she still remains so. Diuretics have been held. Withhold any antihypertensives. Monitor for any signs of infection given that her blood pressure has been starting to fluctuate to being hypotensive. Monitor carefully. Increase IV fluids as mentioned earlier.Even though she has anasarca she is intravascularly volume depleted. We will also add albumin infusions. (4) Pneumonia Qualifiers: Pneumonia type: due to unspecified organism Laterality: unspecified laterality Lung location: unspecified part of lung Qualified Code(s): J18.9 - Pneumonia, unspecified organism Is this a current diagnosis for this admission?: Yes Plan: Been treated. (5) Diabetes mellitus type 2 in obese Plan: As per hospitalist. (6) HTN (hypertension) Qualifiers: Hypertension type: essential hypertension Qualified Code(s): I10 - Essen tial (primary) hypertension Plan: Normal to hypotensive. All antihypertensives on hold. Monitor for any signs of infection/sepsis. Looks like she has UTI. Will get urine culture sent and started on IV Rocephin pending cultures. (7) Diarrhea Qualifiers: Diarrhea type: unspecified type Qualified Code(s): R19.7 - Diarrhea, unspecified Is this a current diagnosis for this admission?: Yes Plan: Apparently chronic. C. difficile so far negative.Note that adult secondary education instructor has been consulted. (8) Urinary tract infection Qualifiers: Urinary tract infection type: site unspecified Hematuria presence: without hematuria Qualified Code(s): N39.0 - Urinary tract infection, site not specified Plan: Initially UA suggestive. Get cultures. Hypotension could be initial symptom of going into sepsis. Start antibiotics. Monitor.
[2019-04-06] MEDS: NORMAL SALINE 1000 ML 1,000 ML IV PRN (12:26)
[2019-04-06] MEDS: ALBUMIN HUMAN 12.5 GM/50 ML RTUINJ IV SCH ×2 (14:47→21:34)
[2019-04-06 15:08] LABS: HEMATOCRIT 26.3 % (36.0-47.0); HEMOGLOBIN 8.6 g/dL (12.0-15.5); MEAN CORPUSCULAR HEMOGLOBIN 32.2 pg (27.0-33.4); MEAN CORPUSCULAR HGB CONC 32.6 g/dL (32.0-36.0); MEAN CORPUSCULAR VOLUME 99 fl (80-97); PLATELET COUNT 227 10^3/uL (150-450); RED BLOOD COUNT 2.66 10^6/uL (3.72-5.28); RED CELL DISTRIBUTION WIDTH 17.4 % (11.5-14.0); WHITE BLOOD COUNT 4.6 10^3/uL (4.0-10.5)
[2019-04-06 15:56] LABS: ABSOLUTE LYMPHOCYTES# (MANUAL) 1.1 10^3/uL (0.5-4.7); ABSOLUTE MONOCYTES # (MANUAL) 0.3 10^3/uL (0.1-1.4); BAND NEUTROPHILS % (MANUAL) 1 % (3-5); BASOPHILS % (MANUAL) 1 % (0-2); EOSINOPHILS % (MANUAL) 2 % (0-6); LYMPHOCYTES % (MANUAL) 23 % (13-45); MONOCYTES % (MANUAL) 6 % (3-13); SEGMENTED NEUTROPHILS % (MAN) 67 % (42-78); TOTAL CELLS COUNTED 100
[2019-04-06 15:58] LABS: ANISOCYTOSIS 1+; PLATELET COMMENT ADEQUATE
--- NOTE | 2019-04-06 16:04 | PDOC PROGRESS REPORT ---
Subjective Progress Note for:: 04/06/19 Subjective:: No adverse events overnight. She got 2-1/2 L of fluid yesterday but her urine output remains extremely low. She is been afebrile. Her heart rate has been in her typical lower normal range. Her urine culture was negative except for some yeast. Her appetite is poor. Reason For Visit: REPEATED FALLS, PNEUMONIA, OBESITY, GENERALIZED Physical Exam Vital Signs: Temp Pulse Resp BP Pulse Ox 97.1 F 56 L 19 127/43 H 96 04/06/19 03:35 04/06/19 12:00 04/06/19 12:00 04/06/19 12:00 04/06/19 12:00 Intake & Output 04/05/19 04/06/19 04/07/19 06:59 06:59 06:59 Intake Total 2199 2687 1050 Output Total 250 45 Balance 1949 2642 1050 Weight 153.4 kg 157.4 kg General appearance: PRESENT: no acute distress, obese Respiratory exam: PRESENT: clear to auscultation vadim. ABSENT: rales, rhonchi, wheezes Cardiovascular exam: PRESENT: RRR. ABSENT: diastolic murmur, rubs, systolic murmur Pulses: PRESENT: normal dorsalis pedis pul GI/Abdominal exam: PRESENT: normal bowel sounds, soft, pitting edema as superior as the upper abdomen. ABSENT: distended, guarding, mass, organolmegaly, rebound, tenderness Rectal exam: PRESENT: deferred Extremities exam: PRESENT: +2 edema, diffuse anasarca Neurological exam: PRESENT: alert, awake, oriented to person, oriented to place Results Laboratory Results: 04/06/19 14:49 04/06/19 05:09 04/05/19 04/05/19 04/06/19 19:57 19:57 05:09 WBC RBC Hgb Hct MCV MCH MCHC RDW Plt Count Seg Neutrophils % Sodium 138.1 Potassium 5.2 H Chloride 111 H Carbon Dioxide 16 L Anion Gap 11 BUN 58 H Creatinine 3.79 H Est GFR ( Amer) 14 L Glucose 74 L Calcium 7.9 L Total Bilirubin 0.3 AST 18 Alkaline Phosphatase 71 Total Protein 5.4 L Albumin 2.7 L 2.7 L 04/06/19 14:49 WBC 4.6 RBC 2.66 L Hgb 8.6 L Hct 26.3 L MCV 99 H MCH 32.2 MCHC 32.6 RDW 17.4 H Plt Count 227 Seg Neutrophils % Not Reportable Sodium Potassium Chloride Carbon Dioxide Anion Gap BUN Creatinine Est GFR ( Amer) Glucose Calcium Total Bilirubin AST Alkaline Phosphatase Total Protein Albumin 04/05/19 13:23 English Catheter Urine Culture - Final Yeast, Not Mallory Albicans 03/23/19 03/23/19 03/23/19 16:30 16:30 20:24 Creatine Kinase 95 CK-MB (CK-2) 4.75 H Troponin I 0.016 0.018 Impressions: Chest CT 03/29/19 09:10 IMPRESSION: 1. Asymmetric edema or pneumonia. Small pleural effusions. 2. Left apical lung nodule which will need serial followup. Renal Ultrasound 04/01/19 00:00 IMPRESSION: Normal right kidney. Neither the bladder or the left kidney can be identified. Chest X-Ray 04/03/19 11:26 IMPRESSION: LIMITED STUDY. NO SIGNIFICANT CHANGE. Assessment and Plan - Diagnosis (1) Acute on chronic renal failure Qualifiers: Acute renal failure type: unspecified Chronic kidney disease stage: stage 3 (moderate) Qualified Code(s): N17.9 - Acute kidney failure, unspecified; N18.3 - Chronic kidney disease, stage 3 (moderate) Is this a current diagnosis for this admission?: Yes Plan: Persistently oliguric. Creatinine still elevated far above baseline despite aggressive IV fluids. Patient has diffuse anasarca. Nephrology is recommending to continue with aggressive IV fluids. On empiric antibiotics. If her white blood count remains normal and her urine culture remains negative, we should probably discontinue them. (2) Diarrhea Qualifiers: Diarrhea type: unspecified type Qualified Code(s): R19.7 - Diarrhea, unspecified Is this a current diagnosis for this admission?: Yes Plan: Sort of a chronic problem for her, gastroenterology has been consulted. This will likely be worked up as an outpatient. (3) Morbid obesity with BMI of 45.0-49.9, adult Is this a current diagnosis for this admission?: Yes Plan: Encouraged lifestyle modification, but I question her motivation (4) Pneumonia Qualifiers: Pneumonia type: due to unspecified organism Laterality: unspecified laterality Lung location: unspecified part of lung Qualified Code(s): J18.9 - Pneumonia, unspecified organism Is this a current diagnosis for this admission?: Yes Plan: Resolved (5) Diastolic CHF Qualifiers: Heart failure chronicity: chronic Qualified Code(s): I50.32 - Chronic juan f stolic (congestive) heart failure Is this a current diagnosis for this admission?: Yes Plan: Her creatinine continues to rise, and nephrology is continuing to recommend aggressive IV fluids, despite the fact that she has diffuse anasarca. We will continue to watch for signs of cardiopulmonary decompensation. - Time Time Spent with patient: 15-24 minutes
[2019-04-06] MEDS: PATIROMER 8.4 GM SUSP PACKET PO SCH (18:08)
[2019-04-06] MEDS: HYDRALAZINE HCL 50 MG TABLET PO SCH (21:33)
[2019-04-07 04:46] LABS: HEMATOCRIT 25.6 % (36.0-47.0); HEMOGLOBIN 8.3 g/dL (12.0-15.5); MEAN CORPUSCULAR HEMOGLOBIN 32.1 pg (27.0-33.4); MEAN CORPUSCULAR HGB CONC 32.5 g/dL (32.0-36.0); MEAN CORPUSCULAR VOLUME 99 fl (80-97); PLATELET COUNT 231 10^3/uL (150-450); RED BLOOD COUNT 2.59 10^6/uL (3.72-5.28); RED CELL DISTRIBUTION WIDTH 17.5 % (11.5-14.0); WHITE BLOOD COUNT 6.2 10^3/uL (4.0-10.5)
[2019-04-07 04:54] LABS: ANION GAP 11 (5-19); BLOOD UREA NITROGEN 55 mg/dL (7-20); CALCIUM 8.1 mg/dL (8.4-10.2); CARBON DIOXIDE 16 mmol/L (22-30); CHLORIDE 111 mmol/L (98-107); POTASSIUM 5.1 mmol/L (3.6-5.0)
[2019-04-07 05:11] LABS: GLUCOSE 67 mg/dL (75-110)
[2019-04-07] MEDS: HEPARIN SOD (PORCINE) 5,000 UNIT/ML 1 ML VIAL SUBCUT SCH ×3 (05:35→21:31)
[2019-04-07] MEDS: ALBUMIN HUMAN 12.5 GM/50 ML RTUINJ IV SCH ×3 (05:35→21:31)
[2019-04-07] MEDS: HYDRALAZINE HCL 50 MG TABLET PO SCH (05:38)
[2019-04-07 06:28] LABS: ABSOLUTE LYMPHOCYTES# (MANUAL) 1.1 10^3/uL (0.5-4.7); ABSOLUTE MONOCYTES # (MANUAL) 0.4 10^3/uL (0.1-1.4); BASOPHILS % (MANUAL) 0 % (0-2); EOSINOPHILS % (MANUAL) 3 % (0-6); LYMPHOCYTES % (MANUAL) 18 % (13-45); MONOCYTES % (MANUAL) 7 % (3-13); SEGMENTED NEUTROPHILS % (MAN) 72 % (42-78); TOTAL CELLS COUNTED 100
[2019-04-07 06:29] LABS: ANISOCYTOSIS 1+; PLATELET CLUMPS PRESENT; PLATELET COMMENT ADEQUATE
[2019-04-07] MEDS: INSULIN LISPRO 100 UNIT/ML 3 ML VIAL SUBCUT SCH ×4 (08:05→23:01)
[2019-04-07] MEDS: INSULIN GLARGINE,HUM.REC.ANLOG 1,000 UNIT/10 ML VIAL SUBCUT SCH (08:05)
[2019-04-07] MEDS: NORMAL SALINE 1000 ML 1,000 ML IV PRN (08:07)
[2019-04-07] MEDS: ASPIRIN 81 MG TABLET, ENT COATED PO SCH (09:34)
[2019-04-07] MEDS: FAMOTIDINE 20 MG TABLET PO SCH (09:34)
[2019-04-07] MEDS: ESCITALOPRAM OXALATE 10 MG TABLET PO SCH (09:34)
[2019-04-07] MEDS: CEFTRIAXONE 1 GM/D5W RTU 1 GM/50 ML RTUPB IV SCH (09:34)
[2019-04-07] MEDS ORDERED: SODIUM BICARBONATE 8.4% INJ 50 MEQ/50 ML DISP.SYRIN ONE (10:08)
[2019-04-07] MEDS ORDERED: DOPAMINE HCL/D5W 800 MG/250 ML RTU BAG IV ONE (10:08)
--- NOTE | 2019-04-07 12:25 | PDOC PROGRESS REPORT ---
Subjective Progress Note for:: 04/07/19 Reason For Visit: Patient seen today. She is more sleepy than usual. However she easily awakes and still complains of being difficult to hear from her right ear. She is not as wide-awake as when I saw her yesterday. She denies any sternal chest pain or shortness of breath. No history of any fever or chills. She complains of pain down below around the vaginal as well as in the low back area. She is unsure whether she has been having diarrhea but after discussions with the treating nurse she does have intermittent episodes of diarrhea. Urine output is markedly decreased over the last couple of days in spite of putting on IV fluids. Labs and medications were reviewed.Urine cultures came back with yeast. Physical Exam Vital Signs: Temp Pulse Resp BP Pulse Ox 97.6 F 61 20 103/45 L 93 04/07/19 07:19 04/07/19 07:19 04/07/19 07:19 04/07/19 07:19 04/07/19 07:19 Intake & Output 04/06/19 04/07/19 04/08/19 06:59 06:59 06:59 Intake Total 2687 2230 50 Output Total 45 35 Balance 2642 2195 50 Weight 157.4 kg 154.6 kg General appearance: PRESENT: no acute distress Respiratory exam: PRESENT: clear to auscultation vadim, decreased breath sounds. ABSENT: crackles Cardiovascular exam: PRESENT: +S1, +S2, systolic murmur GI/Abdominal exam: PRESENT: normal bowel sounds, soft. ABSENT: organomegaly, tenderness Extremities exam: PRESENT: pedal edema Neurological exam: PRESENT: altered, awake, oriented to person Psychiatric exam: PRESENT: depressed Skin exam: ABSENT: erythema, mottled Results Laboratory Results: 04/07/19 03:40 04/07/19 03:40 04/06/19 04/07/19 04/07/19 14:49 03:40 03:40 WBC 4.6 6.2 RBC 2.66 L 2.59 L Hgb 8.6 L 8.3 L Hct 26.3 L 25.6 L MCV 99 H 99 H MCH 32.2 32.1 MCHC 32.6 32.5 RDW 17.4 H 17.5 H Plt Count 227 231 Seg Neutrophils % Not Reportable Not Reportable Sodium 138.4 Potassium 5.1 H Chloride 111 H Carbon Dioxide 16 L Anion Gap 11 BUN 55 H Creatinine 4.25 H Est GFR ( Amer) 13 L Glucose 67 L Calcium 8.1 L 04/05/19 12:10 Stool - Stool - Final 04/05/19 13:23 English Catheter Urine Culture - Final Yeast, Not Mallory Albicans 03/23/19 03/23/19 03/23/19 16:30 16:30 20:24 Creatine Kinase 95 CK-MB (CK-2) 4.75 H Troponin I 0.016 0.018 Impressions: Chest CT 03/29/19 09:10 IMPRESSION: 1. Asymmetric edema or pneumonia. Small pleural effusions. 2. Left apical lung nodule which will need serial followup. Renal Ultrasound 04/01/19 00:00 IMPRESSION: Normal right kidney. Neither the bladder or the left kidney can be identified. Chest X-Ray 04/03/19 11:26 IMPRESSION: LIMITED STUDY. NO SIGNIFICANT CHANGE. Assessment & Plan - Diagnosis (1) Acute on chronic renal failure Qualifiers: Acute renal failure type: unspecified Chronic kidney disease stage: stage 3 (moderate) Qualified Code(s): N17.9 - Acute kidney failure, unspecified; N18.3 - Chronic kidney disease, stage 3 (moderate) Is this a current diagnosis for this admission?: Yes Plan: Patient is getting progressively worse from a renal standpoint. She is now become anuric and her renal numbers are getting worse. Hyperkalemia is better. Acidosis/RTA persist. Mentation is declining. Overall it looks like she is a developing features of history of uremia. I discussed the patient with Dr. Yuri Farrell/hospitalist about initiating her on hemodialysis given the features of history of progressive uremia/Anuria in the face of declining renal functions. I went on to discuss her case with her daughter Jaye also and appraised of her mother's situation at the moment. She is willing to proceed. Discussed procedure and its complications including infections hypotension and rare causes of cardiac arrest. Discussed with Dr. Mckenzie Blanchard to get me IJ PermCath given the fact that she has got severe intertrigo of the lower abdomen. However he is going to take a look and decide whether he can place a temporary catheter as there is no time in the OR for IJ catheter for the next couple of days. 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 Base creatinine 2.5-3. (3) Dehydration Plan: Clinically she still remains so. Diuretics have been held. Withhold any antihypertensives. Monitor for any signs of infection given that her blood pressure has been starting to fluctuate to being hypotensive. Monitor carefully. Get blood cultures. We will continue on IV fluids and albumin infusions in the meanwhile. (4) Pneumonia Qualifiers: Pneumonia type: due to unspecified organism Laterality: unspecified laterality Lung location: unspecified part of lung Qualified Code(s): J18.9 - Pneumonia, unspecified organism Is this a current diagnosis for this admission?: Yes Plan: Been treated. (5) Diabetes mellitus type 2 in obese Plan: As per hospitalist. (6) HTN (hypertension) Qualifiers: Hypertension type: essential hypertension Qualified Code(s): I10 - Essential (primary) hypertension Plan: Normal to hypotensive. All antihypertensives on hold. Monitor for any signs of infection/sepsis. Cultures grew yeast. Discussed with Dr. Yuri Remy/hospitalist for treating her funguria with Diflucan. (7) Diarrhea Qualifiers: Diarrhea type: unspecified type Qualified Code(s): R19.7 - Diarrhea, unspecified Is this a current diagnosis for this admission?: Yes Plan: Apparently chronic. C. difficile so far negative.Note that heat treat supervisor has been consulted. (8) Urinary tract infection Qualifiers: Urinary tract infection type: site unspecified Hematuria presence: without hematuria Qualified Code(s): N39.0 - Urinary tract infection, site not specified Plan: Urine cultures grew fungi urea. Treatment as per Dr. Yuri Farrell.
[2019-04-07] MEDS ORDERED: (PENDING PHARMACY ID) (Mirabegron [Myrbetriq] 50 MG) PO SCH (13:00)
--- NOTE | 2019-04-07 13:45 | Operative Report ---
Operative Report DATE OF SURGERY: 04/07/19 PREOPERATIVE DIAGNOSIS: End-stage renal disease requiring hemodialysis. POSTOPERATIVE DIAGNOSIS: End-stage renal disease requiring hemodialysis. OPERATION: Ultrasound evaluation of right femoral vein. Insertion of temporary hemodialysis catheter via real-time ultrasound guided access in the right femoral vein. SURGEON: TISHA VERDIN MINING CONSULTANT: None. ANESTHESIA: Local TISSUE REMOVED OR ALTERED: Not applicable. COMPLICATIONS: None. ESTIMATED BLOOD LOSS: 4 mL. INTRAOPERATIVE FINDINGS: Of an extremely deeply placed femoral system in this patient with thick adiposity. Satisfactory and safe access under ultrasound guidance. Use of a stiff Glidewire was necessary to transit the catheter safely through the tissues. Satisfactory placement accomplished. Easy egress of blood and ingress of heparinized solution through all 3 ports. PROCEDURE: After obtaining informed consent, the patient was positioned supine at bedside. The right groin and adjacent areas were prepared with chlorhexidine and draped out with sterile linen. After the universal timeout the procedure commenced. A steriley sheathed ultrasound probe was used to evaluate the [right femoral vein]. Local anesthesia was infiltrated adjacent to the probe. Access into the left femoral was accomplished using a micropuncture needle followed, by micropuncture wire and then with a micropuncture catheter. This was followed by introduction of a 0.035 guidewire, the skin opening was enlarged slightly, serially larger dilators were now placed. Followed by introduction of a trialysis catheter this proved difficult and for this reason the 0.35 guidewire was replaced with a 0.035 stiff Glidewire. This allowed transition and insertion of the trialysis catheter. All of these transitions were smooth except with guidewire replacement as noted.. Each lumen was aspirated of blood and irrigated with heparinized solution. The catheter was now sutured to the skin using 3-0 nylon. A Bio A patch was now applied, followed by sterile dressings. Caps were placed on the end of the each of the lumens. The procedure concluded. Copies dictated operative report to Dr. Tisha Blanchard MD.
--- NOTE | 2019-04-07 16:56 | PDOC PROGRESS REPORT ---
Subjective Progress Note for:: 04/07/19 Subjective:: No adverse events overnight. Patient remains fairly somnolent. When she does wake up she complains of some trouble hearing. She is not putting out any urine. Creatinine is elevated today. Appetite is been somewhat poor for her. Reason For Visit: REPEATED FALLS, PNEUMONIA, OBESITY, GENERALIZED Physical Exam Vital Signs: Temp Pulse Resp BP Pulse Ox 97.7 F 60 19 120/86 H 93 04/07/19 12:00 04/07/19 12:00 04/07/19 12:00 04/07/19 12:00 04/07/19 12:00 Intake & Output 04/06/19 04/07/19 04/08/19 06:59 06:59 06:59 Intake Total 2687 2230 100 Output Total 45 35 Balance 2642 2195 100 Weight 157.4 kg 154.6 kg General appearance: PRESENT: no acute distress, obese Respiratory exam: PRESENT: clear to auscultation vadim. ABSENT: rales, rhonchi, wheezes Cardiovascular exam: PRESENT: RRR. ABSENT: diastolic murmur, rubs, systolic murmur Pulses: PRESENT: normal dorsalis pedis pul GI/Abdominal exam: PRESENT: normal bowel sounds, soft, pitting edema as superior as the upper abdomen. ABSENT: distended, guarding, mass, organolmegaly, rebound, tenderness Rectal exam: PRESENT: deferred Extremities exam: PRESENT: +2 edema, diffuse anasarca Neurological exam: PRESENT: Somnolent but arousable, oriented to person, oriented to place Results Laboratory Results: 04/07/19 03:40 04/07/19 03:40 04/07/19 04/07/19 03:40 03:40 WBC 6.2 RBC 2.59 L Hgb 8.3 L Hct 25.6 L MCV 99 H MCH 32.1 MCHC 32.5 RDW 17.5 H Plt Count 231 Seg Neutrophils % Not Reportable Sodium 138.4 Potassium 5.1 H Chloride 111 H Carbon Dioxide 16 L Anion Gap 11 BUN 55 H Creatinine 4.25 H Est GFR ( Amer) 13 L Glucose 67 L Calcium 8.1 L 04/05/19 12:10 Stool - Stool - Final 04/05/19 12:10 Stool - Stool Stool Culture - Final NO SALMONELLA, SHIGELLA, CAMPYLOBACTER, OR E.COLI 0157 RECOVERED. NEGATIVE FOR SHIGA TOXINS 1&2. 04/05/19 13:23 English Catheter Urine Culture - Final Yeast, Not Mallory Albicans 03/23/19 03/23/19 03/23/19 16:30 16:30 20:24 Creatine Kinase 95 CK-MB (CK-2) 4.75 H Troponin I 0.016 0.018 Impressions: Chest CT 03/29/19 09:10 IMPRESSION: 1. Asymmetric edema or pneumonia. Small pleural effusions. 2. Left apical lung nodule which will need serial followup. Renal Ultrasound 04/01/19 00:00 IMPRESSION: Normal right kidney. Neither the bladder or the left kidney can be identified. Chest X-Ray 04/03/19 11:26 IMPRESSION: LIMITED STUDY. NO SIGNIFICANT CHANGE. Assessment and Plan - Diagnosis (1) Acute on chronic renal failure Qualifiers: Acute renal failure type: unspecified Chronic kidney disease stage: stage 3 (moderate) Qualified Code(s): N17.9 - Acute kidney failure, unspecified; N18.3 - Chronic kidney disease, stage 3 (moderate) Is this a current diagnosis for this admission?: Yes Plan: She got a Trialysis catheter, nephrology plans to do dialysis on her tomorrow. (2) Diarrhea Qualifiers: Diarrhea type: unspecified type Qualified Code(s): R19.7 - Diarrhea, unspecified Is this a current diagnosis for this admission?: Yes Plan: Sort of a chronic problem for her, gastroenterology has been consulted. This will likely be worked up as an outpatient. (3) Morbid obesity with BMI of 45.0-49.9, adult Is this a current diagnosis for this admission?: Yes Plan: Encouraged lifestyle modification, but I question her motivation (4) Pneumonia Qualifiers: Pneumonia type: due to unspecified organism Laterality: unspecified laterality Lung location: unspecified part of lung Qualified Code(s): J18.9 - Pneumonia, unspecified organism Is this a current diagnosis for this admission?: Yes Plan: Resolved (5) Diastolic CHF Qualifiers: Heart failure chronicity: chronic Qualified Code(s): I50.32 - Chronic diastolic (congestive) heart failure Is this a current diagnosis for this admission?: Yes Plan: Hopefully dialysis will help remove some of this third spaced fluid that she has accumulated. - Time Time Spent with patient: 15-24 minutes
[2019-04-07] MEDS: PATIROMER 8.4 GM SUSP PACKET PO SCH (17:26)
[2019-04-07] MEDS: CARVEDILOL 12.5 MG TABLET PO SCH (21:31)
[2019-04-07] MEDS ORDERED: GABAPENTIN 300 MG CAPSULE PO SCH (22:00)
[2019-04-08] MEDS ORDERED: DOPAMINE HCL/DEXTROSE 5%-WATER 800 MG/250 ML RTUINJ IV PRN ×3 (02:58→06:26)
[2019-04-08] MEDS ORDERED: VANCOMYCIN HCL INJ 1000 MG VIAL IV PRN (03:05)
[2019-04-08] MEDS ORDERED: VANCOMYCIN HCL INJ 500 MG VIAL ONE (03:20)
[2019-04-08] MEDS ORDERED: VANCOMYCIN HCL INJ 1000 MG VIAL ONE (03:20)
[2019-04-08] MEDS ORDERED: NORMAL SALINE 1000 ML 1,000 ML IV ONE (03:30)
[2019-04-08 03:36] LABS: ARTERIAL BLOOD BASE EXCESS -14.9 mmol/L; ARTERIAL BLOOD H2CO3 1.71 mmol/L (1.05-1.35); ARTERIAL BLOOD O2 SATURATION 88.8 % (94-98); ARTERIAL BLOOD PCO2 56.7 mmHg (35-45); ARTERIAL BLOOD PO2 78.8 mmHg (80-100); ARTERIAL BLOOD TOTAL CO2 16.7 mmol/L (21-25)
[2019-04-08 03:37] LABS: ARTERIAL BLOOD PH 7.04 (7.35-7.45)
[2019-04-08 03:38] LABS: ARTERIAL BLOOD FIO2 30%
[2019-04-08] MEDS ORDERED: ATROPINE SULFATE INJ 1 MG/10 ML DISP.SYRIN IV ONE (03:49)
[2019-04-08] MEDS ORDERED: VANCOMYCIN HCL 1,250 MG in DEXTROSE 5%-WATER 250 ML IV ONE (04:00)
--- NOTE | 2019-04-08 04:17 | Progress Note ---
Provider Note Provider Note: Contacted by patient's nurse with concern of hypotension, hypothermia and unresponsive state. Dopamine, 1 L normal saline bolus, vancomycin, Rocephin, bear hugger, ABG, BiPAP, cortisol ordered. At bedside the patient is found to be unarousable. She is transferred to the ICU with Heart rate of 30 blood pressure 72/40, temperature of 94.6 and respirations of 16. She received atropine pending dopamine. ABG reveals metabolic acidosis, lactic acid is ordered and service transferred to the service of the intens ivist. In critical condition. Total time 35 minutes
[2019-04-08] MEDS ORDERED: DEXTROSE 5%-WATER 1000 ML 1,000 ML with SODIUM BICARBONATE 150 MEQ IV PRN ×4 (04:57→06:26)
[2019-04-08] MEDS ORDERED: HEPARIN SOD (PORCINE) 1,000 UNIT/ML 10 ML VIAL IV PRN (05:00)
[2019-04-08] MEDS ORDERED: SODIUM BICARBONATE 8.4% INJ 50 MEQ/50 ML DISP.SYRIN ONE (05:34)
[2019-04-08 05:49] LABS: ABSOLUTE RETICS # 0.063 10^6/uL (0.028-0.122); HEMATOCRIT 26.4 % (36.0-47.0); HEMOGLOBIN 8.5 g/dL (12.0-15.5); MEAN CORPUSCULAR HEMOGLOBIN 31.9 pg (27.0-33.4); MEAN CORPUSCULAR HGB CONC 32.1 g/dL (32.0-36.0); MEAN CORPUSCULAR VOLUME 99 fl (80-97); PLATELET COUNT 226 10^3/uL (150-450); RED BLOOD COUNT 2.67 10^6/uL (3.72-5.28); RED CELL DISTRIBUTION WIDTH 17.6 % (11.5-14.0); RETICULOCYTE COUNT (AUTO) 2.36 % (0.66-2.85)
[2019-04-08] MEDS ORDERED: DOPAMINE HCL 800 MG/D5W 250 ML IV PRN (05:51)
[2019-04-08 05:52] LABS: PHOSPHORUS 7.4 mg/dL (2.5-4.5)
[2019-04-08 05:55] LABS: ANION GAP 10 (5-19); BLOOD UREA NITROGEN 57 mg/dL (7-20); CALCIUM 8.1 mg/dL (8.4-10.2); CARBON DIOXIDE 17 mmol/L (22-30); CHLORIDE 111 mmol/L (98-107); GLUCOSE 91 mg/dL (75-110); IRON(TIBC) 115.9 ug/dL (37-170); POTASSIUM 5.3 mmol/L (3.6-5.0)
[2019-04-08] MEDS: ALBUMIN HUMAN 12.5 GM/50 ML RTUINJ IV SCH (06:25)
[2019-04-08] MEDS: HEPARIN SOD (PORCINE) 5,000 UNIT/ML 1 ML VIAL SUBCUT SCH ×3 (06:27→21:54)
[2019-04-08 06:31] LABS: ABSOLUTE LYMPHOCYTES# (MANUAL) 1.2 10^3/uL (0.5-4.7); ABSOLUTE MONOCYTES # (MANUAL) 0.7 10^3/uL (0.1-1.4); BASOPHILS % (MANUAL) 1 % (0-2); EOSINOPHILS % (MANUAL) 1 % (0-6); LYMPHOCYTES % (MANUAL) 17 % (13-45); MONOCYTES % (MANUAL) 10 % (3-13); NUCLEATED RED BLOOD CELLS 1 /100 WBC (0); SEGMENTED NEUTROPHILS % (MAN) 71 % (42-78); TOTAL CELLS COUNTED 100
[2019-04-08 06:32] LABS: TOXIC GRANULATION SLIGHT
[2019-04-08 06:33] LABS: ANISOCYTOSIS 1+; PLATELET COMMENT ADEQUATE
[2019-04-08 06:58] LABS: FOLATE 6.17 ng/mL (>2.76)
[2019-04-08] MEDS ORDERED: METHYLPREDNISOLONE INJ 125 MG/2 ML SDV IV ONE (08:00)
[2019-04-08] MEDS: INSULIN LISPRO 100 UNIT/ML 3 ML VIAL SUBCUT SCH ×4 (08:26→21:44)
[2019-04-08 08:45] LABS: ARTERIAL BLOOD BASE EXCESS -12.4 mmol/L; ARTERIAL BLOOD H2CO3 1.51 mmol/L (1.05-1.35); ARTERIAL BLOOD HCO3 16.1 mmol/L (20-24); ARTERIAL BLOOD O2 SATURATION 91.6 % (94-98); ARTERIAL BLOOD TOTAL CO2 17.7 mmol/L (21-25)
[2019-04-08 08:46] LABS: ARTERIAL BLOOD FIO2 30%
[2019-04-08 08:48] LABS: ARTERIAL BLOOD PH 7.13 (7.35-7.45)
--- NOTE | 2019-04-08 09:01 | RADIOLOGY REPORT (SQ) ---
EXAM DESCRIPTION: CHEST SINGLE VIEW COMPLETED DATE/TIME: 04/08/2019 7:38 am REASON FOR STUDY: resp failure; pneumonia COMPARISON: 04/03/2019 EXAM PARAMETERS: NUMBER OF VIEWS: One view. TECHNIQUE: Single frontal radiographic view of the chest acquired. RADIATION DOSE: NA LIMITATIONS: None. FINDINGS: LUNGS AND PLEURA: Unchanged left retrocardiac opacities with obscuration of the left hemid iaphragm. No large effusion. No pneumothorax. MEDIASTINUM AND HILAR STRUCTURES: No masses. Contour normal. HEART AND VASCULAR STRUCTURES: Enlarged, stable. BONES: No acute findings. HARDWARE: None in the chest. OTHER: No other significant finding. IMPRESSION: Unchanged left lower lobe opacities, atelectasis or infection. Stable enlarged cardiac silhouette. TECHNICAL DOCUMENTATION: JOB ID: [id number] [employer]- All Rights Reserved Reading location - IP/workstation name: [email or web address]
--- NOTE | 2019-04-08 09:09 | CRITICAL CARE ADMISSION REPORT ---
HPI Date:: 04/08/19 Time:: 04:30 Reason for ICU Reason:: Bradycardia, Hypotension, minimally responsive. HPI: FINA HERNÁNDEZ is a 63 year old female with a past medical history significant for HTN, HLD, CAD, diastolic CHF, asthma, NILO, and chronic diarrhea who was admitted with pneumonia, ISAAC on Stg IV CKD, and being treated for a yeast UTI. According to documentation, she has been bradycardic with HR in the 40's though maintaining an acceptable blood pressure, has been tachypneic, and yesterday started becoming intermittently somnolent. The plan was for hydration with IV fluids, hemodialysis catheter placement, and HD 04/08/2019. This morning, patient was noted to be bradycardic with HR 30's, hypotension with SBP 70's, hypothermic, minimally responsive for which she was placed on BIPAP, given a fluid bolus, given 1 mg Atropine, transferred to the ICU and started on Dopamine by the Hospitalist. To note, she has chronic diarrhea and each stool specimen has returned negative for C. difficile. Mrs Hernández's HR and BP improved with initiation of Dopamine as well as a small interval improvement in her mental status. Axillary temperature was 92.4 degrees Fahrenheit, HR 30 in junctional rhythm, BP 89/44 upon ICU admission. History obtained from:: Hospitalist, medical record - Diagnosis/Plan (1) Hypotension Qualifiers: Hypotension type: unspecified hypotension type Qualified Code(s): I95.9 - Hypotension, unspecified Is this a current diagnosis for this admission?: Yes Plan: -continue Dopamine infusion, but wean as able (already improving HR and BP since initiation) -f/u cortisol to evaluate for adrenal insufficiency -POCUS demonstrated pt appears able to tolerate some fluid, but be judicious 2/2 CHF -TTE to eval global function with diastolic CHF to ensure not contributing to br adycardia/hypotension -Sepsis certainly on differential as etiology (2) Hypothermia Qualifiers: Encounter type: initial encounter Qualified Code(s): T68.XXXA - Hypothermia, initial encounter Is this a current diagnosis for this admission?: Yes Plan: -warming blanket -sterile warm saline instillation in bladder via Angel as catheter was difficult placement (to confirm positioning for which it was positioned in the bladder) and also to assist with warming patient (3) Junctional rhythm Is this a current diagnosis for this admission?: Yes Plan: Resolved to NSR after starting Dopamine (4) Acute metabolic encephalopathy Is this a current diagnosis for this admission?: Yes Plan: -Warm patient with bear hugger -Increase cerebral perfusion by augmenting MAP and HR -Antibiotics to cover for infection as etiology -Monitor acidemia and uremia; Hemodialysis today should help significantly (5) Metabolic acidosis with respiratory acidosis Is this a current diagnosis for this admission?: Yes Plan: -BIPAP prn for resp acidemia -Hemodialysis for metabolic acidemia -Chloride free IV solution for maintenance fluid until dialyzed (6) Candidiasis Is this a current diagnosis for this admission?: Yes Plan: Treat with Diflucan (7) Diarrhea Qualifiers: Diarrhea type: unspecified type Qualified Code(s): R19.7 - Diarrhea, unspecified Is this a current diagnosis for this admission?: Yes Plan: -This is a chronic problem; specimen on 04/01/2019 negative for C diff toxin -monitor output as will contribute to dehydration -consider fiber or anti-diarrheal meds -Hgb very stable so do not expect GIB at this time (8) Acute kidney injury superimposed on chronic kidney disease Is this a current diagnosis for this admission?: Yes Plan: -Dr Verduzco, Nephrology following -Plan hemodialysis today -Dialysis catheter placed in R femoral previous date -Monitor for hyperkalemia (10) Coronary artery disease Qualifiers: Coronary Disease-Associated Artery/Lesion type: red cliff artery Associated angina: angina presence unspecified Is this a current diagnosis for this admission?: Yes Plan: resume afterload reduction, beta blockade, and statin as able (see home meds) (11) Depression Qualifiers: Depression Type: major depressive disorder Is this a current diagnosis for this admission?: Yes Plan: Resume Lexapro when more alert and able to avoid abrupt withdrawal (12) Diastolic CHF Qualifiers: Heart failure chronicity: chronic Qualified Code(s): I50.32 - Chronic diastolic (congestive) heart failure Is this a current diagnosis for this admission?: Yes Plan: -TTE to eval for decompensated heart failure -cautiously administer IV fluids (13) HTN (hypertension) Qualifiers: Hypertension type: essential hypertension Qualified Code(s): I10 - Essential (primary) hypertension Is this a current diagnosis for this admission?: Yes Plan: Hold all anti-HTN meds presently; resume when condition improves (14) Hyperlipidemia Qualifiers: Hyperlipidemia type: unspecified Qualified Code(s): E78.5 - Hyperlipidemia, unspecified Is this a current diagnosis for this admission?: Yes Plan: -consider statin when mental status improves, providing LFT's not elevated (15) Left lower lobe pneumonia Qualifiers: Pneumonia type: due to unspecified organism Qualified Code(s): J18.9 - Pneumonia, unspecified organism Is this a current diagnosis for this admission?: Yes Plan: Continue Ceftriaxone IS when not on BIPAP Nebs prn (16) Morbid obesity with BMI of 45.0-49.9, adult Is this a current diagnosis for this admission?: Yes Plan: diet education when alert/oriented x4 prior to discharge (17) Obstructive sleep apnea Is this a current diagnosis for this admission?: Yes Plan: BIPAP nightly (18) Pleural effusion Is this a current diagnosis for this admission?: Yes Plan: -bilateral presence on CT L>R -no acute intervention required at this time; re-evaluate after hemodialysis with ultrafiltration -if worsens affecting resp status, may need thoracentesis vs chest tube (19) Type 2 diabetes mellitus Qualifiers: Diabetes mellitus mcfp insulin use: unspecified 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 insulin use status Diabetes mellitus complication status: with other specified complication Qualified Code(s): E11.69 - Type 2 diabetes mellitus with other specified complication Is this a current diagnosis for this admission?: Yes Plan: -ISS coverage -Carb consistent diet (20) Urinary tract infection Qualifiers: Urinary tract infection type: site unspecified Hematuria presence: without hematuria Qualified Code(s): N39.0 - Urinary tract infection, site not specified Is this a current diagnosis for this admission?: Yes Plan: -Continue Diflucan for Mallory UTI -Change out angel catheter for temperature sensing probe due to concomitant hypothermia (21) Protein calorie malnutrition Qualifiers: Protein-calorie malnutrition severity: unspecified severity Qualified Code(s): E46 - Unspecified protein-calorie malnutrition Is this a current diagnosis for this admission?: Yes Plan: -likely contributing to third-spacing -may need post-pyloric small bore feeding tube (due to Hx gastroparesis) to supplement nutritional status Past Medical History Cardiac Medical History: Reports: Congestive Heart Failure, Coronary Artery Di sease, Hyperlipidema, Hypertension Denies: Atrial Fibrillation, DVT, Myocardial Infarction, Peripheral Vascular Disease, Pulmonary Embolism Pulmonary Medical History: Reports: Asthma, Respiratory Failure, Sleep Apnea - Not using CPAP at home Denies: Bronchitis, Chronic Obstructive Pulmonary Disease (COPD), Pneumonia Neurological Medical History: Denies: Seizures Endocrine Medical History: Reports: Diabetes Mellitus Type 2 Denies: Diabetes Mellitus Type 1, Hyperthyroidism, Hypothyroidism Renal/ Medical History: Reports: Chronic Kidney Disease GI Medical History: Denies: Cirrhosis, Crohn's Disease, Hepatitis, Ulcerative Colitis Musculoskeltal Medical History: Reports: Arthritis Denies: Gout Skin Medical History: Denies: Eczema, Psoriasis Psychiatric Medical History: Reports: Depression Hematology: Reports: Anemia Denies: Bleeding Tendencies Past Surgical History Past Surgical History: Reports: Cholecystectomy, Tonsillectomy, Tubal Ligation, Other - Carpal tunnel Social/Family History - Social History Smoking Status: Former Smoker Frequency of Alcohol Use: None Hx Recreational Drug Use: No Drugs: None Hx Prescription Drug Abuse: No - Medication/Allergies Home Medications: Aspirin [Adult Low Dose Aspirin EC] 81 mg PO DAILY 01/18/19 Carvedilol [Coreg 12.5 mg Tablet] 12.5 mg PO Q12 01/18/19 Escitalopram Oxalate [Lexapro] 20 mg PO DAILY 01/18/19 Furosemide [Lasix 40 mg Tablet] 40 mg PO DAILY 01/18/19 Gabapentin [Neurontin 300 mg Capsule] 600 mg PO QPM 01/18/19 Gabapentin [Neurontin 300 mg Capsule] 900 mg PO QAM 01/18/19 Insulin Glargine,Hum.rec.anlog [Lantus Insulin 100 Unit/1 ml 10 ml] 15 units SQ QAM 01/18/19 Lisinopril [Zestril] 40 mg PO DAILY 01/18/19 Mirabegron [Myrbetriq] 50 mg PO DAILY 01/18/19 Pantoprazole Sodium [Protonix [address] Tablet] 40 mg PO DAILY 01/18/19 Tramadol HCl [Ultram 50 mg Tablet] 50 mg PO Q8 01/18/19 Hydralazine HCl [Apresoline 50 mg Tablet] 50 mg PO Q8 30 Days #90 tablet 01/29/19 Cephalexin Monohydrate [Keflex 500 mg Capsule] 500 mg PO QID #20 capsule 03/14/19 Amlodipine Besylate [Norvasc 10 mg Tablet] 10 mg PO DAILY 03/23/19 Allergies/Adverse Reactions: No Known Allergies Allergy (Verified 01/17/19 15:35) Review of Systems ROS unobtainable: Due to mental status Physical Exam Vital Signs: Temp Pulse Resp BP Pulse Ox 94.6 F L 86 16 109/31 L 92 04/07/19 16:00 04/08/19 01:00 04/08/19 04:29 04/08/19 01:00 04/08/19 04:29 Intake & Output 04/06/19 04/07/19 04/08/19 06:59 06:59 06:59 Intake Total 2687 2230 390 Output Total 45 35 10 Balance 2642 2195 380 Weight 157.4 kg 154.6 kg Weight/Height Weight 154.6 kg Height 5 ft 4 in General appearance: PRESENT: morbidly obese, other - no acute respiratory distress, obtunded with BIPAP mask in place, bradycardia HR 30's junctional rhythm, BP 89/44 Head exam: PRESENT: atraumatic, normocephalic Eye exam: PRESENT: conjunctiva pink, PERRLA - sluggish bilaterally. ABSENT: scleral icterus Ear exam: PRESENT: normal external ear exam Mouth exam: PRESENT: dry mucosa, neck supple, tongue midline Throat exam: ABSENT: post pharyngeal erythema Neck exam: ABSENT: tracheal deviation Respiratory exam: PRESENT: clear to auscultation vadim, unlabored. ABSENT: accessory muscle use Cardiovascular exam: PRESENT: bradycardia - bradycardia improved during physical exam and when auscultated, pt had S1S2 no gallops/rubs/clicks, +S1, +S2 Pulses: PRESENT: normal carotid pulses, +2 pedal pulses bilateral Vascular exam: PRESENT: normal capillary refill GI/Abdominal exam: PRESENT: soft. ABSENT: Guardado's sign, rebound, tenderness Rectal exam: PRESENT: deferred Gentrourinary exam: PRESENT: erythema, indwelling catheter Extremities exam: PRESENT: other - 3+ BUE edema. ABSENT: tenderness Musculoskeletal exam: PRESENT: normal inspection Neurological exam: PRESENT: other - obtunded Skin exam: PRESENT: other - excoriated/denuded inframammary folds, labial folds, rectum Laboratory/Radiographs Laboratory Results: 04/07/19 03:40 04/07/19 03:40 04/07/19 04/07/19 04/08/19 03:40 03:40 03:25 WBC 6.2 RBC 2.59 L Hgb 8.3 L Hct 25.6 L MCV 99 H MCH 32.1 MCHC 32.5 RDW 17.5 H Plt Count 231 Carbonic Acid 1.71 H HCO3/H2CO3 Ratio 8:1 ABG pH 7.04 L* ABG pCO2 56.7 H ABG pO2 78.8 L ABG HCO3 15.0 L ABG O2 Saturation 88.8 L ABG Base Excess -14.9 FiO2 30% Sodium 138.4 Potassium 5.1 H Chloride 111 H Carbon Dioxide 16 L Anion Gap 11 BUN 55 H Creatinine 4.25 H Est GFR ( Amer) 13 L Glucose 67 L Calcium 8.1 L 04/05/19 12:10 Stool - Stool - Final 04/05/19 12:10 Stool - Stool Stool Culture - Final NO SALMONELLA, SHIGELLA, CAMPYLOBACTER, OR E.COLI 0157 RECOVERED. NEGATIVE FOR SHIGA TOXINS 1&2. 03/23/19 03/23/19 03/23/19 16:30 16:30 20:24 Creatine Kinase 95 CK-MB (CK-2) 4.75 H Troponin I 0.016 0.018 Impressions: Chest CT 03/29/19 09:10 IMPRESSION: 1. Asymmetric edema or pneumonia. Small pleural effusions. 2. Left apical lung nodule which will need serial followup. Renal Ultrasound 04/01/19 00:00 IMPRESSION: Normal right kidney. Neither the bladder or the left kidney can be identified. Chest X-Ray 04/03/19 11:26 IMPRESSION: LIMITED STUDY. NO SIGNIFICANT CHANGE. All labs, radiographs, diagnostic studies and EKGs were personally reviewed: Yes Critical Time Critical Time (minutes): 85 -: The care of a critically ill patient is dynamic. This note represents a static moment in the admission process. Orders and treatments may be given sim ultaneously and urgently, and time is not senior account representative of the treatment process. This patient requires Critical Care secondary to life threatening organ or limb dysfunction. Without Critical Care services, the patient is at risk for increased mortality and morbidity.
[2019-04-08] MEDS: ESCITALOPRAM OXALATE 10 MG TABLET PO SCH (09:41)
[2019-04-08] MEDS: ASPIRIN 81 MG TABLET, ENT COATED PO SCH (09:41)
[2019-04-08] MEDS: FLUCONAZOLE 100 MG TABLET PO SCH (09:42)
[2019-04-08] MEDS: INSULIN GLARGINE,HUM.REC.ANLOG 1,000 UNIT/10 ML VIAL SUBCUT SCH (09:43)
[2019-04-08] MEDS: CEFTRIAXONE 1 GM/D5W RTU 1 GM/50 ML RTUPB IV SCH (10:03)
[2019-04-08] MEDS: FAMOTIDINE INJ/PF 20 MG/2 ML SDV IV SCH (10:03)
[2019-04-08] MEDS ORDERED: EPOETIN ALFA-EPBX 20,000 UNIT in SYRINGE, DISPOSABLE, 1 EACH IV PRN (10:07)
--- NOTE | 2019-04-08 11:20 | PDOC PROGRESS REPORT ---
Subjective Progress Note for:: 04/08/19 Reason For Visit: Patient was seen today in the morning in the ICU. She was transferred to the ICU earlier this morning because of progressive respiratory failure and altered mental status. She was apparently found to be rather bradycardic with some hypotension earlier yesterday. Presently she is on BiPAP and she seems to be a bit more awake as per the treating nurse. Patient is not very communicative. Labs and medications were reviewed. She is hardly making any urine. She had a right femoral catheter placed by Dr. Blanchard yesterday for initiation of hemodialysis which we will plan to do later today. Patient is subsequently seen on dialysis in the ICU. She looks rather moribund and sickly. She is more lethargic than when I saw her this morning. Dialysis orders were reviewed with the treating dialysis nurse. Physical Exam Vital Signs: Temp Pulse Resp BP Pulse Ox 92.8 F L 76 22 H 113/69 95 04/08/19 04:00 04/08/19 10:00 04/08/19 10:34 04/08/19 10:00 04/08/19 10:34 Intake & Output 04/07/19 04/08/19 04/09/19 06:59 06:59 06:59 Intake Total 2230 422 2313 Output Total 35 10 20 Balance 2195 412 2293 Weight 154.6 kg 153.9 kg General appearance: PRESENT: disheveled, mild distress Exam: Altered mental status and unable to communicate. Respiratory exam: PRESENT: clear to auscultation vadim, decreased breath sounds. ABSENT: crackles Cardiovascular exam: PRESENT: +S1, +S2, systolic murmur GI/Abdominal exam: PRESENT: normal bowel sounds, soft. ABSENT: organomegaly, tenderness Extremities exam: PRESENT: pedal edema Neurological exam: PRESENT: altered Skin exam: ABSENT: cyanosis, erythema, mottled Results Laboratory Results: 04/08/19 05:21 04/08/19 05:21 04/08/19 04/08/19 04/08/19 03:25 05:21 05:21 WBC 7.0 RBC 2.67 L Hgb 8.5 L Hct 26.4 L MCV 99 H MCH 31.9 MCHC 32.1 RDW 17.6 H Plt Count 226 Seg Neutrophils % Not Reportable Retic Count (auto) 2.36 Carbonic Acid 1.71 H HCO3/H2CO3 Ratio 8:1 ABG pH 7.04 L* ABG pCO2 56.7 H ABG pO2 78.8 L ABG HCO3 15.0 L ABG O2 Saturation 88.8 L ABG Base Excess -14.9 FiO2 30% Sodium 138.1 Potassium 5.3 H Chloride 111 H Carbon Dioxide 17 L Anion Gap 10 BUN 57 H Creatinine 4.27 H Est GFR ( Amer) 13 L Glucose 91 Lactic Acid Calcium 8.1 L Phosphorus Magnesium Iron 115.9 TIBC 167 L % Saturation 69 Ferritin 347.00 H Vitamin B12 730.0 Folate 6.17 04/08/19 04/08/19 04/08/19 05:21 05:21 08:40 WBC RBC Hgb Hct MCV MCH MCHC RDW Plt Count Seg Neutrophils % Retic Count (auto) Carbonic Acid 1.51 H HCO3/H2CO3 Ratio 10:1 ABG pH 7.13 L* ABG pCO2 50.0 H ABG pO2 80.0 ABG HCO3 16.1 L ABG O2 Saturation 91.6 L ABG Base Excess -12.4 FiO2 30% Sodium Potassium Chloride Carbon Dioxide Anion Gap BUN Creatinine Est GFR ( Amer) Glucose Lactic Acid < 0.5 L Calcium Phosphorus 7.4 H Magnesium 1.7 Iron TIBC % Saturation Ferritin Vitamin B12 Folate 04/05/19 12:10 Stool - Stool - Final 04/05/19 12:10 Stool - Stool Stool Culture - Final NO SALMONELLA, SHIGELLA, CAMPYLOBACTER, OR E.COLI 0157 RECOVERED. NEGATIVE FOR SHIGA TOXINS 1&2. 03/23/19 03/23/19 03/23/19 16:30 16:30 20:24 Creatine Kinase 95 CK-MB (CK-2) 4.75 H Troponin I 0.016 0.018 Impressions: Chest CT 03/29/19 09:10 IMPRESSION: 1. Asymmetric edema or pneumonia. Small pleural effusions. 2. Left apical lung nodule which will need serial followup. Renal Ultrasound 04/01/19 00:00 IMPRESSION: Normal right kidney. Neither the bladder or the left kidney can be identified. Chest X-Ray 04/08/19 00:00 IMPRESSION: Unchanged left lower lobe opacities, atelectasis or infection. Stable enlarged cardiac silhouette. Assessment & Plan - Diagnosis (1) Acute on chronic renal failure Qualifiers: Acute renal failure type: unspecified Chronic kidney disease stage: stage 3 (moderate) Qualified Code(s): N17.9 - Acute kidney failure, unspecified; N18.3 - Chronic kidney disease, stage 3 (moderate) Is this a current diagnosis for this admission?: Yes Plan: Patient is getting progressively worse from a renal standpoint. She is now become anuric and her renal numbers are getting worse. Acidosis/RTA persist. Mentation is declining. Overall it looks like she is a developing features of history of uremia. Patient became hypotensive and bradycardic and developed respiratory failure and was transferred to the ICU earlier this morning.Patient was subsequently seen undergoing dialysis. She is now in the ICU.Vital signs are relatively stable. Plan to remove between 1 and 2 L as tolerated. Dialysis orders reviewed with the treating dialysis nurse.Next dialysis if needed will be on Thursday. Dr. Ramirez will be phototypesetting equipment monitor then. (2) Chronic kidney disease, stage IV (severe) Is this a current diagnosis for this admission?: Yes (3) Dehydration Plan: Clinically she still remains so. Diuretics have been held. Withhold any antihypertensives. Monitor for any signs of infection given that her blood pressure has been starting to fluctuate to being hypotensive. Monitor carefully. So far negative blood cultures. (4) Pneumonia Qualifiers: Pneumonia type: due to unspecified organism Laterality: unspecified laterality Lung location: unspecified part of lung Qualified Code(s): J18.9 - Pneumonia, unspecified organism Is this a current diagnosis for this admission?: Yes Plan: Been treated. (5) Diabetes mellitus type 2 in obese Plan: As per hospitalist. (6) HTN (hypertension) Qualifiers: Hypertension type: essential hypertension Qualified Code(s): I10 - Essential (primary) hypertension Is this a current diagnosis for this admission?: Yes Plan: Normal to hypotensive. Patient became bradycardic earlier this morning and was transferred to the ICU where she was put on dopamine and the heart rate improved. All antihypertensives on hold. Monitor for any signs of infection/sepsis. Cultures grew yeast. (7) Diarrhea Qualifiers: Diarrhea type: unspecified type Qualified Code(s): R19.7 - Diarrhea, unspecified Is this a current diagnosis for this admission?: Yes Plan: Apparently chronic. C. difficile so far negative.Note that stars coordinator has been consulted. (8) Urinary tract infection Qualifiers: Urinary tract infection type: site unspecified Hematuria presence: without hematuria Qualified Code(s): N39.0 - Urinary tract infection, site not specified Is this a current diagnosis for this admission?: Yes Plan: Urine cultures grew fungi . Treatment as per Geospatial Scientist. (9) Respiratory failure Qualifiers: Chronicity: acute on chronic Respiratory failure complication: hypercapnia Qualified Code(s): J96.22 - Acute and chronic respiratory failure with hypercapnia Plan: Currently now transferred to the ICU. Altered mental status. Management as per meat cooler.
[2019-04-08] MEDS: PATIROMER 8.4 GM SUSP PACKET PO SCH (17:52)
[2019-04-08 17:55] LABS: ARTERIAL BLOOD BASE EXCESS -8.1 mmol/L; ARTERIAL BLOOD H2CO3 1.16 mmol/L (1.05-1.35); ARTERIAL BLOOD HCO3 17.9 mmol/L (20-24); ARTERIAL BLOOD O2 SATURATION 94.6 % (94-98); ARTERIAL BLOOD PCO2 38.6 mmHg (35-45); ARTERIAL BLOOD PH 7.29 (7.35-7.45); ARTERIAL BLOOD PO2 80.1 mmHg (80-100); ARTERIAL BLOOD TOTAL CO2 19.1 mmol/L (21-25)
[2019-04-08 17:56] LABS: ARTERIAL BLOOD FIO2 30%
[2019-04-08] MEDS: METHYLPREDNISOLONE INJ 40 MG/1 ML SDV IV SCH (21:53)
[2019-04-09 04:48] LABS: ANION GAP 12 (5-19); BLOOD UREA NITROGEN 46 mg/dL (7-20); CARBON DIOXIDE 18 mmol/L (22-30); CHLORIDE 108 mmol/L (98-107); GLUCOSE 104 mg/dL (75-110); POTASSIUM 4.7 mmol/L (3.6-5.0)
[2019-04-09] MEDS: HEPARIN SOD (PORCINE) 5,000 UNIT/ML 1 ML VIAL SUBCUT SCH ×3 (05:12→21:00)
[2019-04-09 07:37] LABS: HEPATITS B SURFACE ANTIGEN Negative (Negative)
[2019-04-09] MEDS: INSULIN GLARGINE,HUM.REC.ANLOG 1,000 UNIT/10 ML VIAL SUBCUT SCH ×2 (08:08→09:32)
[2019-04-09] MEDS: INSULIN LISPRO 100 UNIT/ML 3 ML VIAL SUBCUT SCH ×4 (08:08→22:31)
[2019-04-09] MEDS: FLUCONAZOLE 100 MG TABLET PO SCH (09:25)
[2019-04-09] MEDS: ASPIRIN 81 MG TABLET, ENT COATED PO SCH (09:25)
[2019-04-09] MEDS: ESCITALOPRAM OXALATE 10 MG TABLET PO SCH (09:25)
[2019-04-09] MEDS: FAMOTIDINE INJ/PF 20 MG/2 ML SDV IV SCH (09:26)
[2019-04-09] MEDS: METHYLPREDNISOLONE INJ 40 MG/1 ML SDV IV SCH ×2 (09:26→21:00)
[2019-04-09] MEDS: CEFTRIAXONE 1 GM/D5W RTU 1 GM/50 ML RTUPB IV SCH (09:27)
[2019-04-09] MEDS: ACETAMINOPHEN 325 MG TABLET PO PRN (09:48)
[2019-04-09] MEDS ORDERED: IPRATROPIUM/ALBUTEROL 0.5-2.5 MG/3 ML AMPUL NEB SCH (14:00)
--- NOTE | 2019-04-09 15:14 | PDOC CRITICAL CARE PROG REPORT ---
General Date:: 04/09/19 ICU Day:: 2 Hospital Day:: 2 Resuscitation Status: Full Code Events in the past 12 to 24 Hours:: Got hemodialysis yesterday. Heart rate was noted to normalize (bradycardia resolved) while on hemodialysis. Patient maintains a heart rate in the 70s and 80s, sinus rhythm. She is now off BiPAP. Conversant. Complains of not feeling well; however, is unable to provide specifics. Denies pain. Still somewhat disoriented; however, much more prompt in verbal conversation than she was yesterday. Review of systems relevant to events:: Respiratory, cardiovascular, renal, neuropsychiatric Reason for ICU Addmission:: Bradycardia, Hypotension, minimally responsive. - Medications: Medications reviewed and adjusted accordingly: Yes Vasopressors:: Off dopamine. Physical Exam Vital Signs: Temp Pulse Resp BP Pulse Ox 99.9 F 90 18 160/95 H 94 04/09/19 10:00 04/09/19 10:00 04/09/19 10:00 04/09/19 10:00 04/09/19 10:00 Intake & Output 04/08/19 04/09/19 04/10/19 06:59 06:59 06:59 Intake Total 422 3809 50 Output Total 10 2565 55 Balance 412 1244 -5 Weight 153.9 kg 157.3 kg Weight/Height Weight 157.3 kg Height 1.63 m General appearance: PRESENT: no acute distress, morbidly obese, well-developed, well-nourished Exam: Pale Head exam: PRESENT: atraumatic, normocephalic Eye exam: PRESENT: conjunctiva pink, EOMI, PERRLA. ABSENT: scleral icterus Neck exam: ABSENT: carotid bruit, JVD, lymphadenopathy, thyromegaly Respiratory exam: PRESENT: clear to auscultation vadim, decreased breath sounds. ABSENT: rales, rhonchi, wheezes Cardiovascular exam: PRESENT: RRR. ABSENT: diastolic murmur, rubs, systolic mur mur Pulses: PRESENT: normal dorsalis pedis pul GI/Abdominal exam: PRESENT: normal bowel sounds, soft. ABSENT: distended, guarding, mass, rebound, tenderness Extremities exam: PRESENT: full ROM, +2 edema. ABSENT: calf tenderness, clubbing Musculoskeletal exam: PRESENT: normal inspection Neurological exam: PRESENT: alert, awake, oriented to person, oriented to place, oriented to situation, CN II-XII grossly intact. ABSENT: motor sensory deficit Psychiatric exam: PRESENT: appropriate affect, normal mood Skin exam: PRESENT: dry, pallor Laboratory/Radiographs Laboratory Results: 04/08/19 05:21 04/09/19 04:11 04/08/19 04/09/19 17:20 04:11 Carbonic Acid 1.16 HCO3/H2CO3 Ratio 15:1 ABG pH 7.29 L ABG pCO2 38.6 ABG pO2 80.1 ABG HCO3 17.9 L ABG O2 Saturation 94.6 ABG Base Excess -8.1 FiO2 30% Sodium 138.2 Potassium 4.7 Chloride 108 H Carbon Dioxide 18 L Anion Gap 12 BUN 46 H Creatinine 3.35 H Est GFR ( Amer) 17 L Glucose 104 Calcium 8.0 L 03/23/19 03/23/19 03/23/19 16:30 16:30 20:24 Creatine Kinase 95 CK-MB (CK-2) 4.75 H Troponin I 0.016 0.018 Impressions: Chest CT 03/29/19 09:10 IMPRESSION: 1. Asymmetric edema or pneumonia. Small pleural effusions. 2. Left apical lung nodule which will need serial followup. Renal Ultrasound 04/01/19 00:00 IMPRESSION: Normal right kidney. Neither the bladder or the left kidney can be identified. Chest X-Ray 04/08/19 00:00 IMPRESSION: Unchanged left lower lobe opacities, atelectasis or infection. Stable enlarged cardiac silhouette. Assessment and Plan - Diagnosis (1) Acute metabolic encephalopathy Is this a current diagnosis for this admission?: Yes Plan: Improving. Continue hemodialysis as scheduled. (2) Acute on chronic renal failure Qualifiers: Acute renal failure type: unspecified Chronic kidney disease stage: stage 3 (moderate) Qualified Code(s): N17.9 - Acute kidney failure, unspecified; N18.3 - Chronic kidney disease, stage 3 (moderate) Is this a current diagnosis for this admission?: Yes Plan: Dialysis per nephrology. (3) Hypotension Qualifiers: Hypotension type: unspecified hypotension type Qualified Code(s): I95.9 - Hypotension, unspecified Is this a current diagnosis for this admission?: Yes Plan: Off dopamine. Improved with hemodialysis. (4) Hypothermia Qualifiers: Encounter type: subsequent encounter Qualified Code(s): T68.XXXD - Hypothermia, subsequent encounter Is this a current diagnosis for this admission?: Yes Plan: Resolved. (5) Junctional rhythm Is this a current diagnosis for this admission?: Yes Plan: Solved. Off dopamine. (6) Acute exacerbation of congestive heart failure Qualifiers: Heart failure type: systolic Qualified Code(s): I50.23 - Acute on chronic systolic (congestive) heart failure Is this a current diagnosis for this admission?: Yes Plan: Proved with hemodialysis. (7) Anemia, chronic disease Is this a current diagnosis for this admission?: Yes Plan: Monitor hemoglobin. (8) Bradycardia Is this a current diagnosis for this admission?: Yes Plan: Resolved. Off dopamine. (9) Morbid obesity with BMI of 45.0-49.9, adult Is this a current diagnosis for this admission?: Yes Critical Time Critical Time (minutes): 30 Level of Care: ICU -: 1. The care of a critical patient is a dynamic process. This note is a international sales representative synopsis but static in nature. The timeframe for treatments given in order is not necessarily the actual time these treatments may have been done. 2. This patient requires critical care secondary to ongoing requirements for therapy not offered or safe outside the critical care environment. Transfer to a lower level of care will result in altered life or limb morbidity and mortality. 3. Multidisciplinary rounds completed. 4. ABCDE bundle addressed.
[2019-04-09 16:41] LABS: HEPATITIS B CORE AB TOT Negative (Negative)
[2019-04-09] MEDS: PATIROMER 8.4 GM SUSP PACKET PO SCH (18:19)
[2019-04-10 04:44] LABS: ANION GAP 11 (5-19); BLOOD UREA NITROGEN 54 mg/dL (7-20); CARBON DIOXIDE 19 mmol/L (22-30); CHLORIDE 107 mmol/L (98-107); GLUCOSE 104 mg/dL (75-110); POTASSIUM 4.5 mmol/L (3.6-5.0)
[2019-04-10] MEDS: HEPARIN SOD (PORCINE) 5,000 UNIT/ML 1 ML VIAL SUBCUT SCH ×3 (06:22→21:18)
[2019-04-10] MEDS: INSULIN LISPRO 100 UNIT/ML 3 ML VIAL SUBCUT SCH ×4 (09:45→21:19)
[2019-04-10] MEDS: ESCITALOPRAM OXALATE 10 MG TABLET PO SCH (09:47)
[2019-04-10] MEDS: ASPIRIN 81 MG TABLET, ENT COATED PO SCH (09:47)
[2019-04-10] MEDS: INSULIN GLARGINE,HUM.REC.ANLOG 1,000 UNIT/10 ML VIAL SUBCUT SCH (09:47)
[2019-04-10] MEDS: FAMOTIDINE INJ/PF 20 MG/2 ML SDV IV SCH (09:48)
[2019-04-10] MEDS: CEFTRIAXONE 1 GM/D5W RTU 1 GM/50 ML RTUPB IV SCH (09:48)
[2019-04-10] MEDS: METHYLPREDNISOLONE INJ 40 MG/1 ML SDV IV SCH ×2 (09:48→21:18)
[2019-04-10] MEDS: ACETAMINOPHEN 325 MG TABLET PO PRN ×2 (09:48→17:37)
[2019-04-10] MEDS: FLUCONAZOLE 100 MG TABLET PO SCH (09:48)
[2019-04-10 13:36] LABS: HEPATITIS C QUANTITATION HCV Not Detected IU/mL (.)
[2019-04-10] MEDS: PATIROMER 8.4 GM SUSP PACKET PO SCH (17:29)
[2019-04-11] MEDS: HEPARIN SOD (PORCINE) 5,000 UNIT/ML 1 ML VIAL SUBCUT SCH ×3 (05:11→21:54)
[2019-04-11 06:02] LABS: ANION GAP 7 (5-19); BLOOD UREA NITROGEN 57 mg/dL (7-20); CARBON DIOXIDE 24 mmol/L (22-30); CHLORIDE 108 mmol/L (98-107); GLUCOSE 117 mg/dL (75-110); POTASSIUM 4.4 mmol/L (3.6-5.0)
--- NOTE | 2019-04-11 09:23 | PDOC CRITICAL CARE PROG REPORT ---
General Date:: 04/10/19 ICU Day:: 3 Hospital Day:: 3 Resuscitation Status: Full Code Events in the past 12 to 24 Hours:: Heart rate, blood pressure and temperature are no longer low. Case discussed with nurse (who points out that the current febrile temperature is an error in documentation). Heart rate 71, sinus rhythm. She is now off BiPAP. He is on empiric Rocephin without definite nidus of infection. Conversant. Complains of not feeling well; however, is unable to provide specifics. Denies pain. Oriented to year, place and person. She thinks it is November. She also has a highly organized hallucination (her baby, Nate, is allegedly laying at her side and has not woken up for the past 4 days). Review of systems relevant to events:: Respiratory, cardiovascular, renal, neuropsychiatric Reason for ICU Addmission:: Bradycardia, Hypotension, minimally responsive. Physical Exam Vital Signs: Temp Pulse Resp BP Pulse Ox 101.7 F H 71 11 L 160/70 H 98 04/10/19 10:45 04/10/19 08:00 04/10/19 08:00 04/10/19 08:00 04/10/19 08:00 Intake & Output 04/09/19 04/10/19 04/11/19 06:59 06:59 06:59 Intake Total 3809 50 Output Total 2565 545 30 Balance 1244 -495 -30 Weight 157.3 kg 159 kg Weight/Height Weight 159 kg Height 1.63 m General appearance: PRESENT: no acute distress, morbidly obese Head exam: PRESENT: atraumatic, normocephalic Eye exam: PRESENT: conjunctiva pink, EOMI, PERRLA. ABSENT: scleral icterus Mouth exam: PRESENT: moist, tongue midline Neck exam: PRESENT: other - Short thick neck. ABSENT: carotid bruit, JVD, l ymphadenopathy, thyromegaly Respiratory exam: PRESENT: decreased breath sounds - Owing to body habitus. ABSENT: rales, rhonchi, wheezes Cardiovascular exam: PRESENT: RRR. ABSENT: diastolic murmur, rubs, systolic murmur Pulses: PRESENT: normal dorsalis pedis pul GI/Abdominal exam: PRESENT: normal bowel sounds, soft, other - pendulous, huge pannus. ABSENT: distended, guarding, mass, rebound, tenderness Extremities exam: PRESENT: full ROM, pedal edema, +1 edema. ABSENT: calf tenderness, clubbing Musculoskeletal exam: PRESENT: normal inspection Focused psych exam: PRESENT: other - Organized hallucination (baby, Nate, laying at her side, has not woken up for 4 days). ABSENT: pressured speech Skin exam: PRESENT: dry, intact, warm. ABSENT: cyanosis, rash Laboratory/Radiographs Laboratory Results: 04/08/19 05:21 04/10/19 03:55 04/10/19 03:55 Sodium 137.1 Potassium 4.5 Chloride 107 Carbon Dioxide 19 L Anion Gap 11 BUN 54 H Creatinine 3.34 H Est GFR ( Amer) 17 L Glucose 104 Calcium 8.0 L 03/23/19 03/23/19 03/23/19 16:30 16:30 20:24 Creatine Kinase 95 CK-MB (CK-2) 4.75 H Troponin I 0.016 0.018 Impressions: Chest CT 03/29/19 09:10 IMPRESSION: 1. Asymmetric edema or pneumonia. Small pleural effusions. 2. Left apical lung nodule which will need serial followup. Renal Ultrasound 04/01/19 00:00 IMPRESSION: Normal right kidney. Neither the bladder or the left kidney can be identified. Chest X-Ray 04/08/19 00:00 IMPRESSION: Unchanged left lower lobe opacities, atelectasis or infection. Stable enlarged cardiac silhouette. Assessment and Plan - Diagnosis (1) Acute metabolic encephalopathy Is this a current diagnosis for this admission?: Yes Plan: Improving. Continue hemodialysis as scheduled. (2) Acute on chronic renal failure Qualifiers: Acute renal failure type: unspecified Chronic kidney disease stage: stage 3 (moderate) Qualified Code(s): N17.9 - Acute kidney failure, unspecified; N18.3 - Chronic kidney disease, stage 3 (moderate) Is this a current diagnosis for this admission?: Yes Plan: Dialysis per nephrology. (3) Acute exacerbation of congestive heart failure Qualifiers: Heart failure type: systolic Qualified Code(s): I50.23 - Acute on chronic systolic (congestive) heart failure Is this a current diagnosis for this admission?: Yes Plan: Clinically, seems to have improved with hemodialysis. 2D echo was performed on 04/08, interpretation pending. (4) Anemia, chronic disease Is this a current diagnosis for this admission?: Yes Plan: Monitor hemoglobin (currently stable, 8.5) (5) Morbid obesity with BMI of 45.0-49.9, adult Is this a current diagnosis for this admission?: Yes (6) Mallory UTI Is this a current diagnosis for this admission?: Yes Plan: On fluconazole Critical Time Critical Time (minutes): 45 Level of Care: ICU -: 1. The care of a critical patient is a dynamic process. This note is a customer assistance representative synopsis but static in nature. The timeframe for treatments given in order is not necessarily the actual time these treatments may have been done. 2. This patient requires critical care secondary to ongoing requirements for therapy not offered or safe outside the critical care environment. Transfer to a lower level of care will result in altered life or limb morbidity and mortality. 3. Multidisciplinary rounds completed. 4. ABCDE bundle addressed.
[2019-04-11] MEDS: METHYLPREDNISOLONE INJ 40 MG/1 ML SDV IV SCH ×2 (11:11→21:54)
[2019-04-11] MEDS: FAMOTIDINE INJ/PF 20 MG/2 ML SDV IV SCH (11:11)
[2019-04-11] MEDS: CEFTRIAXONE 1 GM/D5W RTU 1 GM/50 ML RTUPB IV SCH (11:12)
[2019-04-11] MEDS: INSULIN GLARGINE,HUM.REC.ANLOG 1,000 UNIT/10 ML VIAL SUBCUT SCH (11:12)
[2019-04-11] MEDS: ASPIRIN 81 MG TABLET, ENT COATED PO SCH (11:15)
[2019-04-11] MEDS: INSULIN LISPRO 100 UNIT/ML 3 ML VIAL SUBCUT SCH ×3 (11:15→21:59)
[2019-04-11] MEDS: FLUCONAZOLE 100 MG TABLET PO SCH (11:15)
[2019-04-11] MEDS: ESCITALOPRAM OXALATE 10 MG TABLET PO SCH (11:16)
[2019-04-11 13:41] LABS: URINE CREATININE 71.2 mg/dL (15-278)
--- NOTE | 2019-04-11 16:33 | PDOC CRITICAL CARE PROG REPORT ---
General Date:: 04/11/19 ICU Day:: 4 Hospital Day:: 4 Resuscitation Status: Full Code Events in the past 12 to 24 Hours:: Mentating better today. At present, no hallucinations. Slept with BiPAP (for suspected obstructive sleep apnea). Remained off BiPAP all day yesterday. On empiric Rocephin without definite nidus of infection. Conversant. Reports that she "feels better". Appears to be making 30 to 40 mL/h urine output. Creatinine has held stable after dialysis on Thursday. Well, clinically improving. Review of systems relevant to events:: Respiratory, cardiovascular, renal, neuropsychiatric Reason for ICU Addmission:: Bradycardia, Hypotension, minimally responsive. Physical Exam Vital Signs: Temp Pulse Resp BP Pulse Ox 98.4 F 79 19 142/55 H 99 04/11/19 08:00 04/11/19 08:00 04/11/19 08:00 04/11/19 08:00 04/11/19 08:00 Intake & Output 04/10/19 04/11/19 04/12/19 06:59 06:59 06:59 Intake Total 50 350 Output Total 545 875 50 Balance -495 -525 -50 Weight 159 kg 157.2 kg Weight/Height Weight 157.2 kg Height 1.63 m Laboratory/Radiographs Laboratory Results: 04/08/19 05:21 04/11/19 05:30 04/11/19 05:30 Sodium 139.0 Potassium 4.4 Chloride 108 H Carbon Dioxide 24 Anion Gap 7 BUN 57 H Creatinine 3.38 H Est GFR ( Amer) 17 L Glucose 117 H Calcium 8.0 L 03/23/19 03/23/19 03/23/19 16:30 16:30 20:24 Creatine Kinase 95 CK-MB (CK-2) 4.75 H Troponin I 0.016 0.018 Impressions: Chest CT 03/29/19 09:10 IMPRESSION: 1. Asymmetric edema or pneumonia. Small pleural effusions. 2. Left apical lung nodule which will need serial followup. Renal Ultrasound 04/01/19 00:00 IMPRESSION: Normal right kidney. Neither the bladder or the left kidney can be identified. Chest X-Ray 04/08/19 00:00 IMPRESSION: Unchanged left lower lobe opacities, atelectasis or infection. Stable enlarged cardiac silhouette. Assessment and Plan - Diagnosis (1) Acute metabolic encephalopathy Is this a current diagnosis for this admission?: Yes Plan: Improving. Continue to monitor for hallucinations (perhaps related to uremic encephalopathy). I will defer subsequent dialysis plans to nephrology. (2) Acute on chronic renal failure Qualifiers: Acute renal failure type: unspecified Chronic kidney disease stage: stage 3 (moderate) Qualified Code(s): N17.9 - Acute kidney failure, unspecified; N18.3 - Chronic kidney disease, stage 3 (moderate) Is this a current diagnosis for this admission?: Yes Plan: Plan to place PermCath today has been put on hold. (3) Acute exacerbation of congestive heart failure Qualifiers: Heart failure type: systolic Qualified Code(s): I50.23 - Acute on chronic systolic (congestive) heart failure Is this a current diagnosis for this admission?: Yes Plan: Clinically, seems to have improved with hemodialysis. 2D echo was performed on 04/08, interpretation still pending. (4) Anemia, chronic disease Is this a current diagnosis for this admission?: Yes Plan: Monitor hemoglobin. (5) Morbid obesity with BMI of 45.0-49.9, adult Is this a current diagnosis for this admission?: Yes (6) Mallory UTI Is this a current diagnosis for this admission?: Yes Critical Time Critical Time (minutes): 45 Level of Care: ICU -: 1. The care of a critical patient is a dynamic process. This note is a c s s representative synopsis but static in nature. The timeframe for treatments given in order is not necessarily the actual time these treatments may have been done. 2. This patient requires critical care secondary to ongoing requirements for therapy not offered or safe outside the critical care environment. Transfer to a lower level of care will result in altered life or limb morbidity and mortality. 3. Multidisciplinary rounds completed. 4. ABCDE bundle addressed.
[2019-04-11] MEDS ORDERED: FUROSEMIDE INJ/PF 100 MG/10 ML SDV IV ONE (17:00)
[2019-04-11] MEDS: ACETAMINOPHEN 325 MG TABLET PO PRN (17:36)
--- NOTE | 2019-04-11 21:16 | PDOC PROGRESS REPORT ---
Subjective Progress Note for:: 04/11/19 Subjective:: Chart reviewed. Patient was admitted last week and developed oliguria and subsequently anuria. Last Thursday the patient went into respiratory failure associated with altered mental status, bradycardia and hypotension requiring transfer to the intensive care unit. Patient was also on BiPAP due to respiratory failure at the time. Due to this constellation of symptoms the patient required acute hemodialysis treatment. Patient underwent acute hemodialysis last Thursday. For the past 2 days patient started to clinically improve. Her urine output started to improve making about 500 to 800 mL of urine output. Today the patient is awake, conversant and oriented x3. She said she feels good. She denies any shortness of breath, chest pains, nausea, vomiting or d iarrhea. She is doing much better. She has no complaints at all today. Reason For Visit: REPEATED FALLS, PNEUMONIA, OBESITY, GENERALIZED Physical Exam Vital Signs: Temp Pulse Resp BP Pulse Ox 98.4 F 79 19 142/55 H 99 04/11/19 08:00 04/11/19 08:00 04/11/19 08:00 04/11/19 08:00 04/11/19 08:00 Intake & Output 04/10/19 04/11/19 04/12/19 06:59 06:59 06:59 Intake Total 50 350 Output Total 545 875 50 Balance -495 -525 -50 Weight 159 kg 157.2 kg Exam: General appearance: PRESENT: no acute distress, cooperative, well-developed, well-nourished Head exam: PRESENT: atraumatic, normocephalic Eye exam: PRESENT: conjunctiva slightly pale, PERRLA. ABSENT: scleral icterus Neck exam: ABSENT: JVD Respiratory exam: PRESENT: Normal breath sounds. ABSENT: crackles, rales, rhonchi, unlabored, wheezes Cardiovascular exam: PRESENT: Regular rate rhythm -+S1, +S2. ABSENT: diastolic murmur, systolic murmur GI/Abdominal exam: PRESENT: normal bowel sounds, soft. He has mild subcutaneous abdominal edema ABSENT: guarding, mass, tenderness Extremities exam: Grade 2 bilateral lower extremity pitting edema up to her thighs Neurological exam: PRESENT: alert, awake, oriented to person, place and time except she does not know the year. Skin exam: PRESENT: dry, warm, Cardiovascular exam: PRESENT: +S1, +S2, systolic murmur GI/Abdominal exam: PRESENT: normal bowel sounds, soft. ABSENT: organomegaly, tenderness Results Laboratory Results: 04/08/19 05:21 04/11/19 05:30 04/11/19 05:30 Sodium 139.0 Potassium 4.4 Chloride 108 H Carbon Dioxide 24 Anion Gap 7 BUN 57 H Creatinine 3.38 H Est GFR ( Amer) 17 L Glucose 117 H Calcium 8.0 L 03/23/19 03/23/19 03/23/19 16:30 16:30 20:24 Creatine Kinase 95 CK-MB (CK-2) 4.75 H Troponin I 0.016 0.018 Impressions: Chest CT 03/29/19 09:10 IMPRESSION: 1. Asymmetric edema or pneumonia. Small pleural effusions. 2. Left apical lung nodule which will need serial followup. Renal Ultrasound 04/01/19 00:00 IMPRESSION: Normal right kidney. Neither the bladder or the left kidney can be identified. Chest X-Ray 04/08/19 00:00 IMPRESSION: Unchanged left lower lobe opacities, atelectasis or infection. Stable enlarged cardiac silhouette. Assessment & Plan - Diagnosis (1) Acute kidney injury superimposed on chronic kidney disease Is this a current diagnosis for this admission?: Yes Plan: The patient started with oligo-anuria last week and is currently has improving urine output for the last couple of days after 1 dialysis treatment on 04/08/2019. She most likely had acute tubular necrosis secondary to an episode of bradycardia, hypotension and respiratory failure. Patient's kidney function has also been steady for the last 2 days. Patient's mental status is also improved to almost baseline. Due to this clinical improvement I will hold any further renal replacement therapy at this point. We will continue to follow kidney function and hopefully continued renal recovery. Continue current management. (2) Acute metabolic encephalopathy Is this a current diagnosis for this admission?: Yes Plan: This appears to be resolved. This is most likely secondary to uremia and respiratory failure last week. (3) Mallory UTI Is this a current diagnosis for this admission?: Yes Plan: Currently being treated with fluconazole. (4) Chronic kidney disease, stage IV (severe) Is this a current diagnosis for this admission?: Yes Plan: Patient's creatinine has been running around 2+ but has been continuously slowly deteriorating for the last few months. She has nonnephrotic range proteinuria with urine protein to creatinine ratio of 2.1. Risk factors for kidney disease include diabetes mellitus, hypertension, obesity and congestive heart failure. (5) Dehydration Is this a current diagnosis for this admission?: Yes Plan: Patient appears to be euvolemic at this time although she has third spacing with hypoalbuminemia. (6) Pneumonia Qualifiers: Pneumonia type: due to unspecified organism Laterality: unspecified laterality Lung location: unspecified part of lung Qualified Code(s): J18.9 - Pneumonia, unspecified organism Is this a current diagnosis for this admission?: Yes Plan: Patient being treated with ceftriaxone. (7) Diabetes mellitus type 2 in obese Is this a current diagnosis for this admission?: Yes (8) Diastolic CHF Qualifiers: Heart failure chronicity: chronic Qualified Code(s): I50.32 - Chronic diastolic (congestive) heart failure Is this a current diagnosis for this admission?: Yes Plan: She seems to be compensated at this time. (9) HTN (hypertension) Qualifiers: Hypertension type: essential hypertension Qualified Code(s): I10 - Essential (primary) hypertension Is this a current diagnosis for this admission?: Yes Plan: Suboptimally controlled. (10) Respiratory failure Qualifiers: Chronicity: acute on chronic Respiratory failure complication: hypercapnia Qualified Code(s): J96.22 - Acute and chronic respiratory failure with hy percapnia Is this a current diagnosis for this admission?: Yes Plan: Patient has been off BiPAP and is currently just on nasal cannula and seems to be tolerating it very well. (11) Anemia in chronic kidney disease (CKD) Is this a current diagnosis for this admission?: Yes Plan: Patient's iron indicis are adequate. She was given Retacrit last Thursday. Continue Retacrit 20,000 units q. weekly. (12) Chronic kidney disease-mineral and bone disorder Is this a current diagnosis for this admission?: Yes Plan: Phosphorus was elevated at 7.4 last week. Will repeat phosphorus level. - Notes Notes: Discussed with art glass designer Dr. Dawn. - Time Time with patient: 15-25 minutes
--- NOTE | 2019-04-11 22:02 | XCELERA REPORT ---
[address] [address] Transthoracic Echocardiogram Report Name: FINA HERNÁNDEZ Age: 63 yrs Gender: Female : 1955 Patient Status: Inpatient Patient Location: ICU^606^A Study Date: 04/08/2019 11:52 AM Height: 64 in Weight: 339 lb BSA: 2.4 m2 Procedure: A two-dimensional transthoracic echocardiogram with color flow and Doppler was performed. Study Quality: Technically suboptimal. The study was technically difficult with many images being suboptimal in quality. Poor endocardial visualisation. Images were not obtained from all of the standard acoustic windows due to the limited scope of the study. Reason For Study: heart failure; eval global cardiac function /CHF Ordering Physician: CHUCKY CORTEZ Performed By: Mary Carrillo Interpretation Summary Poor endocardial visualisation The left ventricle is grossly normal size. Mild LVH.No True apical 2 chamber views obtained.Hence cannot comment on the apical anterior , the basal anterior, the basal inferior and apical inferior ray.The mid anterior , the mid inferior and the rest of the LV ray contract normally. .Probably Normal LVEF of 55% in the limited views.But cannot be sure. Doppler measurements suggest impaired left ventricular relaxation, which is associated with grade I/IV or mild diastolic dysfunction The right ventricle is not well visualized secondary to technical limitations Right atrium not well visualized secondary to technical limitations The left atrial size is normal. Unable to comment on ASD ,VSD ,or PFO. There is no evidence of mitral valve prolapse. There is no mitral valve stenosis. Probably no MR. There is no aortic valve stenosis There is no LVOT obstruction. No aortic regurgitation is present. There is no tricuspid stenosis. Probably no TR , and hence cannot calculate RVSP. The pulmonic valve is not well visualized. The aortic root is not well visualized. The inferior vena cava appeared dilated and did not change with respiration (RAP > 20 mmHg) There is no pericardial effusion. MMode/2D Measurements & Calculations RVDd: 4.7 cm LVIDd: 5.2 cm FS: 32.1 % Ao root diam: 2.9 cm IVSd: 1.2 cm LVIDs: 3.6 cm EDV(Teich): 131.5 ml Ao root area: 6.7 cm2 LVPWd: 1.2 cm ESV(Teich): 52.8 ml LA dimension: 3.9 cm EF(Teich): 59.8 % Doppler Measurements & Calculations PA V2 max: 83.9 cm/sec PI end-d oksana: 149.3 cm/sec TR max oksana: 275.5 cm/sec PA max P.8 mmHg TR max P.4 mmHg Left Ventricle The left ventricle is grossly normal size. Mild LVH.No True apical 2 chamber views obtained.Hence cannot comment on the apical anterior , the basal anterior, the basal inferior and apical inferior ray.The mid anterior , the mid inferior and the rest of the LV ray contract normally. .Probably Normal LVEF of 55% in the limited views.But cannot be sure. Doppler measurements suggest impaired left ventricular relaxation, which is associated with grade I/IV or mild diastolic dysfunction. Right Ventricle The right ventricle is not well visualized secondary to technical limitations. Atria Right atrium not well visualized secondary to technical limitations. The left atrial size is normal. Unable to comment on ASD ,VSD ,or PFO. Mitral Valve There is no evidence of mitral valve prolapse. There is no mitral valve stenosis. Probably no MR. Aortic Valve There is no aortic valve stenosis. There is no LVOT obstruction. No aortic regurgitation is present. Tricuspid Valve There is no tricuspid stenosis. Probably no TR , and hence cannot calculate RVSP. Pulmonic Valve The pulmonic valve is not well visualized. Great Vessels The aortic root is not well visualized. The inferior vena cava appeared dilated and did not change with respiration (RAP > 20 mmHg). Effusions There is no pericardial effusion. : CHUCKY CORTEZ Lakshmi
[2019-04-12] MEDS: HEPARIN SOD (PORCINE) 5,000 UNIT/ML 1 ML VIAL SUBCUT SCH ×3 (05:35→22:12)
[2019-04-12 06:00] LABS: HEMATOCRIT 24.8 % (36.0-47.0); HEMOGLOBIN 8.1 g/dL (12.0-15.5); MEAN CORPUSCULAR HEMOGLOBIN 31.4 pg (27.0-33.4); MEAN CORPUSCULAR HGB CONC 32.5 g/dL (32.0-36.0); MEAN CORPUSCULAR VOLUME 97 fl (80-97); PLATELET COUNT 223 10^3/uL (150-450); RED BLOOD COUNT 2.57 10^6/uL (3.72-5.28); RED CELL DISTRIBUTION WIDTH 17.1 % (11.5-14.0); WHITE BLOOD COUNT 6.3 10^3/uL (4.0-10.5)
[2019-04-12 06:13] LABS: ANION GAP 9 (5-19); BLOOD UREA NITROGEN 61 mg/dL (7-20); CALCIUM 7.9 mg/dL (8.4-10.2); CARBON DIOXIDE 23 mmol/L (22-30); CHLORIDE 108 mmol/L (98-107); GLUCOSE 124 mg/dL (75-110); PHOSPHORUS 5.3 mg/dL (2.5-4.5); POTASSIUM 4.3 mmol/L (3.6-5.0)
[2019-04-12 06:32] LABS: ABSOLUTE LYMPHOCYTES# (MANUAL) 0.4 10^3/uL (0.5-4.7); ABSOLUTE MONOCYTES # (MANUAL) 0.2 10^3/uL (0.1-1.4); BASOPHILS % (MANUAL) 0 % (0-2); EOSINOPHILS % (MANUAL) 0 % (0-6); LYMPHOCYTES % (MANUAL) 7 % (13-45); MONOCYTES % (MANUAL) 3 % (3-13); NUCLEATED RED BLOOD CELLS 1 /100 WBC (0); SEGMENTED NEUTROPHILS % (MAN) 90 % (42-78); TOTAL CELLS COUNTED 100
[2019-04-12 06:34] LABS: ANISOCYTOSIS 1+; POLYCHROMASIA SLIGHT
[2019-04-12 06:37] LABS: TEAR DROP CELLS SLIGHT
[2019-04-12 06:38] LABS: PLATELET COMMENT ADEQUATE
[2019-04-12] MEDS: PATIROMER 8.4 GM SUSP PACKET PO SCH ×2 (06:38→17:19)
[2019-04-12] MEDS: INSULIN LISPRO 100 UNIT/ML 3 ML VIAL SUBCUT SCH ×4 (08:57→22:12)
--- NOTE | 2019-04-12 09:29 | PDOC PROGRESS REPORT ---
Subjective Progress Note for:: 04/12/19 Subjective:: Patient is doing well. She passed about the 1917 mL of urine output yesterday after she was given Lasix of 80 mg IV x1 dose. Her kidney function continues to slowly improve. Patient feels fine and denies any chest pains, shortness of breath no any other symptoms. Her blood pressure is slightly elevated this morning. Patient was scheduled for PermCath placement this morning which I have canceled and spoke to Dr. Blanchard. Reason For Visit: REPEATED FALLS, PNEUMONIA, OBESITY, GENERALIZED Physical Exam Vital Signs: Temp Pulse Resp BP Pulse Ox 97.9 F 71 12 144/58 H 97 04/12/19 08:00 04/12/19 08:00 04/12/19 08:00 04/12/19 08:00 04/12/19 08:00 Intake & Output 04/11/19 04/12/19 04/13/19 06:59 06:59 06:59 Intake Total 350 50 Output Total 875 1917 175 Balance -525 -1867 -175 Weight 157.2 kg 158.1 kg Exam: General appearance: PRESENT: no acute distress, cooperative, well-developed, well-nourished Head exam: PRESENT: atraumatic, normocephalic Eye exam: PRESENT: conjunctiva pale, PERRLA. ABSENT: scleral icterus Neck exam: ABSENT: JVD Respiratory exam: PRESENT: Diminished breath sounds. ABSENT: crackles, rales, rhonchi, unlabored, wheezes Cardiovascular exam: PRESENT: Regular rate rhythm -+S1, +S2. ABSENT: diastolic murmur, systolic murmur GI/Abdominal exam: PRESENT: normal bowel sounds, soft. Mild subcutaneous edema ABSENT: guarding, mass, tenderness Extremities exam: Grade 1 bilateral lower extremity pitting edema Neurological exam: PRESENT: alert, awake, oriented to person, place and time. Skin exam: PRESENT: dry, warm, Cardiovascular exam: PRESENT: +S1, +S2, systolic murmur GI/Abdominal exam: PRESENT: normal bowel sounds, soft. ABSENT: organomegaly, tenderness Results Laboratory Results: 04/12/19 05:38 04/12/19 05:38 04/12/19 04/12/19 04/12/19 05:38 05:38 06:18 WBC 6.3 RBC 2.57 L Hgb 8.1 L Hct 24.8 L MCV 97 MCH 31.4 MCHC 32.5 RDW 17.1 H Plt Count 223 Seg Neutrophils % Not Reportable Sodium 139.6 Potassium 4.3 Chloride 108 H Carbon Dioxide 23 Anion Gap 9 BUN 61 H Creatinine 3.21 H Est GFR ( Amer) 18 L Glucose 124 H Calcium 7.9 L Phosphorus 5.3 H PTH Intact 203.6 H 03/23/19 03/23/19 03/23/19 16:30 16:30 20:24 Creatine Kinase 95 CK-MB (CK-2) 4.75 H Troponin I 0.016 0.018 Impressions: Chest CT 03/29/19 09:10 IMPRESSION: 1. Asymmetric edema or pneumonia. Small pleural effusions. 2. Left apical lung nodule which will need serial followup. Renal Ultrasound 04/01/19 00:00 IMPRESSION: Normal right kidney. Neither the bladder or the left kidney can be identified. Chest X-Ray 04/08/19 00:00 IMPRESSION: Unchanged left lower lobe opacities, atelectasis or infection. Stable enlarged cardiac silhouette. Assessment & Plan - Diagnosis (1) Acute kidney injury superimposed on chronic kidney disease Is this a current diagnosis for this admission?: Yes Plan: The patient started with oligo-anuria last week and is currently has improving urine output for the last couple of days after 1 dialysis treatment on 04/08/2019. She most likely had acute tubular necrosis secondary to an episode of bradycardia, hypotension and respiratory failure. Patient's urine output has improved and her kidney function is continuously improving. We will hold PermCath placement as I am not sure that the patient would still need renal replacement therapy at this point. I am going to resume her oral furosemide 40 mg p.o. twice daily since she had a pretty good response with Lasix yesterday. Continue to monitor kidney function. From nephrology standpoint I think the patient can be downgraded from ICU to the floor or IMCU. (2) Acute metabolic encephalopathy Is this a current diagnosis for this admission?: Yes Plan: This appears to be resolved. This is most likely secondary to uremia and respiratory failure last week. (3) Mallory UTI Is this a current diagnosis for this admission?: Yes Plan: Currently being treated with fluconazole. (4) Chronic kidney disease, stage IV (severe) Is this a current diagnosis for this admission?: Yes Plan: Patient's creatinine has been running around 2+ but has been continuously slowly deteriorating for the last few months. She has non-nephrotic range proteinuria with urine protein to creatinine ratio of 2.1. Risk factors for kidney disease include diabetes mellitus, hypertension, obesity and congestive heart failure. (5) Dehydration Is this a current diagnosis for this admission?: Yes Plan: Patient appears to be euvolemic at this time although she has third spacing with hypoalbuminemia. (6) Pneumonia Qualifiers: Pneumonia type: due to unspecified organism Laterality: unspecified laterality Lung location: unspecified part of lung Qualified Code(s): J18.9 - Pneumonia, unspecified organism Is this a current diagnosis for this admission?: Yes Plan: Patient being treated with ceftriaxone. (7) Diabetes mellitus type 2 in obese Is this a current diagnosis for this admission?: Yes (8) Diastolic CHF Qualifiers: Heart failure chronicity: chronic Qualified Code(s): I50.32 - Chronic diast olic (congestive) heart failure Is this a current diagnosis for this admission?: Yes Plan: She seems to be compensated at this time. (9) HTN (hypertension) Qualifiers: Hypertension type: essential hypertension Qualified Code(s): I10 - Essential (primary) hypertension Is this a current diagnosis for this admission?: Yes Plan: Suboptimally controlled. We will restart oral furosemide which hopefully can help the blood pressure as well. (10) Respiratory failure Qualifiers: Chronicity: acute on chronic Respiratory failure complication: hypercapnia Qualified Code(s): J96.22 - Acute and chronic respiratory failure with hypercapnia Is this a current diagnosis for this admission?: Yes Plan: Improved. Patient currently on nasal cannula and is doing well. (11) Anemia in chronic kidney disease (CKD) Is this a current diagnosis for this admission?: Yes Plan: Patient's iron indicis are adequate. She was given Retacrit last Thursday. Continue Retacrit 20,000 units q. weekly on Fridays. (12) Chronic kidney disease-mineral and bone disorder Is this a current diagnosis for this admission?: Yes Plan: Phosphorus was elevated at 7.4 last week and now improved to 5.3. Corrected calcium of 8.94. Her PTH is 209.6. Will start calcitriol 3 times a week. - Notes Notes: Discussed with Dr. Dawn. - Time Time with patient: 15-25 minutes
[2019-04-12] MEDS: METHYLPREDNISOLONE INJ 40 MG/1 ML SDV IV SCH ×2 (09:36→22:12)
[2019-04-12] MEDS: FAMOTIDINE INJ/PF 20 MG/2 ML SDV IV SCH (09:36)
[2019-04-12] MEDS: ESCITALOPRAM OXALATE 10 MG TABLET PO SCH (09:37)
[2019-04-12] MEDS: ASPIRIN 81 MG TABLET, ENT COATED PO SCH (09:37)
[2019-04-12] MEDS: INSULIN GLARGINE,HUM.REC.ANLOG 1,000 UNIT/10 ML VIAL SUBCUT SCH (09:37)
[2019-04-12] MEDS: FLUCONAZOLE 100 MG TABLET PO SCH (09:37)
[2019-04-12] MEDS: CEFTRIAXONE 1 GM/D5W RTU 1 GM/50 ML RTUPB IV SCH (09:38)
--- NOTE | 2019-04-12 11:52 | PDOC CRITICAL CARE PROG REPORT ---
General Date:: 04/12/19 ICU Day:: 5 Hospital Day:: 5 Resuscitation Status: Full Code Events in the past 12 to 24 Hours:: Mentation appears stable. Off and on hallucinations. Pliant with nighttime BiPAP (for suspected obstructive sleep apnea). Remained off BiPAP all day yesterday. On empiric Rocephin without definite nidus of infection. Con versant. Reports that she "feels better". Case discussed with nephrology. Plans for PermCath have been abandoned. Serum creatinine downtrending without dialysis. Clinically improving. Review of systems relevant to events:: Respiratory, cardiovascular, renal, neuropsychiatric Reason for ICU Addmission:: Bradycardia, Hypotension, minimally responsive. - Medications: Medications reviewed and adjusted accordingly: Yes Physical Exam Vital Signs: Temp Pulse Resp BP Pulse Ox 97.9 F 82 20 177/74 H 98 04/12/19 08:00 04/12/19 10:00 04/12/19 10:00 04/12/19 10:00 04/12/19 10:00 Intake & Output 04/11/19 04/12/19 04/13/19 06:59 06:59 06:59 Intake Total 350 50 Output Total 875 5697 375 Balance -525 -1867 -375 Weight 157.2 kg 158.1 kg Weight/Height Weight 158.1 kg Height 1.63 m General appearance: PRESENT: no acute distress, well-developed, well-nourished Laboratory/Radiographs Laboratory Results: 04/12/19 05:38 04/12/19 05:38 04/12/19 04/12/19 04/12/19 05:38 05:38 06:18 WBC 6.3 RBC 2.57 L Hgb 8.1 L Hct 24.8 L MCV 97 MCH 31.4 MCHC 32.5 RDW 17.1 H Plt Count 223 Seg Neutrophils % Not Reportable Sodium 139.6 Potassium 4.3 Chloride 108 H Carbon Dioxide 23 Anion Gap 9 BUN 61 H Creatinine 3.21 H Est GFR ( Amer) 18 L Glucose 124 H Calcium 7.9 L Phosphorus 5.3 H PTH Intact 203.6 H 03/23/19 03/23/19 03/23/19 16:30 16:30 20:24 Creatine Kinase 95 CK-MB (CK-2) 4.75 H Troponin I 0.016 0.018 Impressions: Chest CT 03/29/19 09:10 IMPRESSION: 1. Asymmetric edema or pneumonia. Small pleural effusions. 2. Left apical lung nodule which will need serial followup. Renal Ultrasound 04/01/19 00:00 IMPRESSION: Normal right kidney. Neither the bladder or the left kidney can be identified. Chest X-Ray 04/08/19 00:00 IMPRESSION: Unchanged left lower lobe opacities, atelectasis or infection. Stable enlarged cardiac silhouette. Assessment and Plan - Diagnosis (1) Acute metabolic encephalopathy Is this a current diagnosis for this admission?: Yes Plan: Improving. Continue to monitor for hallucinations. Family members report that the patient's abnormal mentation did precede her hospitalization (albeit not her "normal baseline"). (2) Acute exacerbation of congestive heart failure Qualifiers: Heart failure type: diastolic Qualified Code(s): I50.33 - Acute on chronic diastolic (congestive) heart failure Is this a current diagnosis for this admission?: Yes Plan: Clinically, seems to have improved with hemodialysis. 2D echo 04/08: technically suboptimal study, likely compatible with diastolic dysfunction. (3) Acute on chronic renal failure Qualifiers: Acute renal failure type: unspecified Chronic kidney disease stage: stage 3 (moderate) Qualified Code(s): N17.9 - Acute kidney failure, unspecified; N18.3 - Chronic kidney disease, stage 3 (moderate) Is this a current diagnosis for this admission?: Yes Plan: Per Nephrology. (4) Anemia, chronic disease Is this a current diagnosis for this admission?: Yes (5) Morbid obesity with BMI of 45.0-49.9, adult Is this a current diagnosis for this admission?: Yes (6) Mallory UTI Is this a current diagnosis for this admission?: Yes (7) Pulmonary nodule Is this a current diagnosis for this admission?: Yes Plan: Left apical nodule will need radiographic follow-up (noncontrast chest CT in 3 months). Plan Summary: DISPOSITION: OK to transfer to the floor. Critical Time Critical Time (minutes): 45 Level of Care: ICU -: 1. The care of a critical patient is a dynamic process. This note is a re presentative synopsis but static in nature. The timeframe for treatments given in order is not necessarily the actual time these treatments may have been done. 2. This patient requires critical care secondary to ongoing requirements for therapy not offered or safe outside the critical care environment. Transfer to a lower level of care will result in altered life or limb morbidity and mortalit y. 3. Multidisciplinary rounds completed. 4. ABCDE bundle addressed.
[2019-04-12] MEDS: FUROSEMIDE 40 MG TABLET PO SCH ×2 (12:36→17:18)
--- NOTE | 2019-04-12 18:46 | PDOC PROGRESS REPORT ---
Subjective Progress Note for:: 04/12/19 Subjective:: The patient is a 63-year-old female with a past medical history of CHF, CAD, hypertension, hyperlipidemia, asthma, NILO (noncompliant with CPAP) DM 2, obesity, arthritis, depression, CKD 4 who was admitted 03/23/2019 with urinary tract infection and pneumonia. Patient was upgraded to the counselor dormitory service 04/08/19 due to hypotension, hypothermia, junctional rhythm, acute metabolic encephalopathy, metabolic acidosis and ptosis with respiratory acidosis and acute kidney injury superimposed on chronic kidney injury. She is completed a full course of antibiotic therapy for treatment of her pneumonia. She has completed treatment of her Mallory UTI with Diflucan. Her hypothermia and hypotension have resolved. She is returned to her baseline kidney function following 1 session of hemodialysis. She does continue to have metabolic encephalopathy; she is technically oriented x4, however, does have periods of lucid hallucinations. Recently she had a very detailed discussion with the ICU provider regarding her baby being nonresponsive while referencing her pillow. Per discussions between the intensivitist and family, hallucinations were present prior to admission. Recommends consideration of psychiatric evaluation. Otherwise, she is now hemodynamically stable and has been downgraded to telemetry floor status. Patient was seen briefly on afternoon rounds while eating her dinner. She was found sitting upright in bed, comfortably, on supplemental oxygen via nasal cannula at 2 L/min. She is oriented to self, place, year, and portions of the situation. She is able to tell me that she was originally brought to the emergency department due to a fall and shows me the bruising to her left cheek and forehead. However, she does not recall treatment for pneumonia or recent dialysis session. She does tell me that she is feeling significantly better today, though it is unclear that she has a good frame of reference. She does specifically deny fever, chest pain, palpitations, dyspnea, cough, abdominal pain, nausea and vomiting. She has no questions or concerns at this time. Unfortunately, no family members are present during my visit. No concerns expressed per nursing. Reason For Visit: REPEATED FALLS, PNEUMONIA, OBESITY, GENERALIZED Physical Exam Vital Signs: Temp Pulse Resp BP Pulse Ox 98.1 F 86 11 L 151/61 H 100 04/12/19 12:00 04/12/19 12:00 04/12/19 15:02 04/12/19 15:02 04/12/19 15:02 Intake & Output 04/11/19 04/12/19 04/13/19 06:59 06:59 06:59 Intake Total 350 50 Output Total 687 8748 491 Balance -525 -5518 -850 Weight 157.2 kg 158.1 kg General appearance: PRESENT: no acute distress, cooperative, morbidly obese - super, well-developed, well-nourished Head exam: PRESENT: atraumatic, normocephalic Eye exam: PRESENT: conjunctiva pale, EOMI, PERRLA. ABSENT: scleral icterus Ear exam: PRESENT: normal external ear exam Mouth exam: PRESENT: moist, tongue midline Respiratory exam: PRESENT: clear to auscultation vadim, symmetrical, unlabored. ABSENT: rales, rhonchi, wheezes Cardiovascular exam: PRESENT: RRR, +S1, +S2. ABSENT: diastolic murmur, rubs, systolic murmur Pulses: PRESENT: normal dorsalis pedis pul Vascular exam: PRESENT: normal capillary refill Extremities exam: PRESENT: full ROM - Spontaneously moves all extremities. ABSENT: calf tenderness, clubbing, pedal edema Neurological exam: PRESENT: alert, awake, oriented to person, oriented to place, oriented to time, oriented to situation, CN II-XII grossly intact, other - Intermittent periods of forgetfulness, confusion, and hallucinations. ABSENT: motor sensory deficit Psychiatric exam: PRESENT: appropriate affect, normal mood. ABSENT: homicidal ideation, suicidal ideation Skin exam: PRESENT: dry, intact, warm. ABSENT: cyanosis, rash Results Laboratory Results: 04/12/19 05:38 04/12/19 05:38 04/12/19 04/12/19 04/12/19 05:38 05:38 06:18 WBC 6.3 RBC 2.57 L Hgb 8.1 L Hct 24.8 L MCV 97 MCH 31.4 MCHC 32.5 RDW 17.1 H Plt Count 223 Seg Neutrophils % Not Reportable Sodium 139.6 Potassium 4.3 Chloride 108 H Carbon Dioxide 23 Anion Gap 9 BUN 61 H Creatinine 3.21 H Est GFR ( Amer) 18 L Glucose 124 H Calcium 7.9 L Phosphorus 5.3 H PTH Intact 203.6 H 04/07/19 16:05 Blood Blood Culture - Final NO GROWTH IN 5 DAYS 04/07/19 15:04 Blood Blood Culture - Final NO GROWTH IN 5 DAYS 03/23/19 03/23/19 03/23/19 16:30 16:30 20:24 Creatine Kinase 95 CK-MB (CK-2) 4.75 H Troponin I 0.016 0.018 Impressions: Chest CT 03/29/19 09:10 IMPRESSION: 1. Asymmetric edema or pneumonia. Small pleural effusions. 2. Left apical lung nodule which will need serial followup. Renal Ultrasound 04/01/19 00:00 IMPRESSION: Normal right kidney. Neither the bladder or the left kidney can be identified. Chest X-Ray 04/08/19 00:00 IMPRESSION: Unchanged left lower lobe opacities, atelectasis or infection. Stable enlarged cardiac silhouette. Assessment and Plan - Diagnosis (1) Acute exacerbation of congestive heart failure Qualifiers: Heart failure type: diastolic Qualified Code(s): I50.33 - Acute on chronic diastolic (congestive) heart failure Is this a current diagnosis for this admission?: Yes Plan: Clinically, seems to have improved with hemodialysis. 2D echo 04/08: technically suboptimal study, likely compatible with diastolic dysfunction. She appears to be stable and without exacerbation at this time. As she remains hypertensive, will cautiously resume lowest dose carvedilol. Continue furosemide per nephrology. We will continue cardiac diet. Daily weights and strict I&O's. (2) Acute metabolic encephalopathy Is this a current diagnosis for this admission?: Yes Plan: Improving. Continue to monitor for hallucinations. Family members report that the patient's abnormal mentation did precede her hospitalization (albeit not her "normal baseline"). Perhaps heralding her acute on chronic kidney failure. Continue weaning IV Solu-Medrol. Continue home dose Lexapro. Consider mental health consult. (3) Acute on chronic renal failure Qualifiers: Acute renal failure type: unspecified Chronic kidney disease stage: stage 3 (moderate) Qualified Code(s): N17.9 - Acute kidney failure, unspecified; N18.3 - Chronic kidney disease, stage 3 (moderate) Is this a current diagnosis for this admission?: Yes Plan: Per Nephrology. Appears to have returned to near baseline. (4) Anemia in chronic kidney disease (CKD) Is this a current diagnosis for this admission?: Yes Plan: Hemoglobin stable; currently 8.1. Received a throat bleeding per nephrology. Continue management per their expertise (5) Mallory UTI Is this a current diagnosis for this admission?: Yes Plan: Completed fluconazole. (6) Dehydration Is this a current diagnosis for this admission?: Yes Plan: Resolved. Continue daily weights and strict I&O's. (7) Diabetes mellitus type 2 in obese Is this a current diagnosis for this admission?: Yes Plan: Consistent carb/dialysis diet Accu-Cheks before meals and at bedtime with Humalog for sliding scale coverage. Continue Lantus 15 units every morning. Hypoglycemia protocol in place. (8) Diarrhea Qualifiers: Diarrhea type: unspecified type Qualified Code(s): R19.7 - Diarrhea, unspecified Is this a current diagnosis for this admission?: Yes Plan: Chronic diarrhea per previous provider. Follow-up with GI as outpatient. (9) Hypertension Is this a current diagnosis for this admission?: Yes Plan: Resume carvedilol 3.125 mg twice daily as opposed to her home dose of 12.5 mg twice daily. Furosemide per nephrology. (10) Pneumonia Qualifiers: Pneumonia type: due to unspecified organism Laterality: unspecified laterality Lung location: unspecified part of lung Qualified Code(s): J18.9 - Pneumonia, unspecified organism Is this a current diagnosis for this admission?: Yes Plan: Resolved (11) Pulmonary nodule Is this a current diagnosis for this admission?: Yes Plan: Left apical nodule will need radiographic follow-up (noncontrast chest CT in 3 months). - Time Time Spent with patient: 25-34 minutes Medications reviewed and adjusted accordingly: Yes Anticipated discharge: SNF Within: within 72 hours
[2019-04-12] MEDS: CARVEDILOL 3.125 MG TABLET PO SCH (22:11)
[2019-04-13] MEDS: HEPARIN SOD (PORCINE) 5,000 UNIT/ML 1 ML VIAL SUBCUT SCH ×3 (05:34→21:46)
[2019-04-13 06:32] LABS: HEMATOCRIT 25.2 % (36.0-47.0); HEMOGLOBIN 8.4 g/dL (12.0-15.5); MEAN CORPUSCULAR HEMOGLOBIN 32.1 pg (27.0-33.4); MEAN CORPUSCULAR HGB CONC 33.4 g/dL (32.0-36.0); MEAN CORPUSCULAR VOLUME 96 fl (80-97); PLATELET COUNT 223 10^3/uL (150-450); RED BLOOD COUNT 2.63 10^6/uL (3.72-5.28); RED CELL DISTRIBUTION WIDTH 16.6 % (11.5-14.0); WHITE BLOOD COUNT 8.1 10^3/uL (4.0-10.5)
[2019-04-13 06:54] LABS: ALBUMIN 2.5 g/dL (3.5-5.0); ALKALINE PHOSPHATASE 54 U/L (38-126); ASPARTATE AMINO TRANSFERASE 15 U/L (14-36); BILIRUBIN,DIRECT 0.1 mg/dL (0.0-0.4); BILIRUBIN,TOTAL 0.3 mg/dL (0.2-1.3); BLOOD UREA NITROGEN 67 mg/dL (7-20); CALCIUM 7.9 mg/dL (8.4-10.2); CARBON DIOXIDE 24 mmol/L (22-30); CHLORIDE 111 mmol/L (98-107); GLUCOSE 157 mg/dL (75-110); POTASSIUM 4.4 mmol/L (3.6-5.0); TOTAL PROTEIN 4.8 g/dL (6.3-8.2)
[2019-04-13 06:57] LABS: ANION GAP 4 (5-19)
[2019-04-13] MEDS: INSULIN LISPRO 100 UNIT/ML 3 ML VIAL SUBCUT SCH ×4 (08:55→21:45)
[2019-04-13] MEDS: INSULIN GLARGINE,HUM.REC.ANLOG 1,000 UNIT/10 ML VIAL SUBCUT SCH (08:57)
[2019-04-13] MEDS: ESCITALOPRAM OXALATE 10 MG TABLET PO SCH (09:54)
[2019-04-13] MEDS: FUROSEMIDE 40 MG TABLET PO SCH ×2 (09:54→17:39)
[2019-04-13] MEDS: ASPIRIN 81 MG TABLET, ENT COATED PO SCH (09:55)
[2019-04-13] MEDS: METHYLPREDNISOLONE INJ 40 MG/1 ML SDV IV SCH ×2 (09:55→21:45)
[2019-04-13] MEDS: CARVEDILOL 3.125 MG TABLET PO SCH ×2 (09:55→21:45)
[2019-04-13] MEDS: CALCITRIOL 0.25 MCG CAPSULE PO SCH (09:55)
[2019-04-13] MEDS: ACETAMINOPHEN 325 MG TABLET PO PRN (12:08)
--- NOTE | 2019-04-13 16:44 | PDOC PROGRESS REPORT ---
Subjective Progress Note for:: 04/13/19 Subjective:: The patient is a 63-year-old female with a past medical history of CHF, CAD, hypertension, hyperlipidemia, asthma, NILO (noncompliant with CPAP) DM 2, obesity, arthritis, depression, CKD 4 who was admitted 03/23/2019 with urinary tract infection and pneumonia. 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 She is completed a full course of antibiotic therapy for treatment of her pneumonia. She has completed treatment of her Mallory UTI with Diflucan. Her hypothermia and hypotension have resolved. She is returned to her baseline kidney function following 1 session of hemodialysis. She does continue to have metabolic encephalopathy; she is technically oriented x4, however, does have periods of lucid hallucinations. Recently she had a very detailed discussion with the ICU provider regarding her baby being nonresponsive while referencing her pillow. Per discussions between the intensivitist and family, hallucinations were present prior to admission. Recommends consideration of psychiatric evaluation. Otherwise, she is now hemodynamically stable and has been downgraded to telemetry floor status. Patient was seen on morning rounds. She was found sitting upright in bed, comfortably, on supplemental oxygen via nasal cannula at 2 L/min. She is oriented to self, place, year, and portions of the situation; she does appear to have sharper/clearer thought processes today. She does tell me that she is feeling well today; happy that she was able to sit to the edge of the bed with physical therapy and looking forward to d/c to rehab. She does specifically deny fever, chest pain, palpitations, dyspnea, cough, abdominal pain, nausea and vomiting. She does admit to visual and auditory hallucinations, although, she states that she is able to tell the difference between them and reality. She states that they are not overwhelming or frightening and seem to be occurring less frequently. She has no questions or concerns at this time. No concerns expressed per nursing. Reason For Visit: REPEATED FALLS, PNEUMONIA, OBESITY, GENERALIZED Physical Exam Vital Signs: Temp Pulse Resp BP Pulse Ox 98.2 F 78 18 160/80 H 97 04/13/19 12:00 04/13/19 12:00 04/13/19 12:00 04/13/19 12:00 04/13/19 12:00 Intake & Output 04/12/19 04/13/19 04/14/19 06:59 06:59 06:59 Intake Total 50 100 Output Total 9439 1425 Balance -1867 -1325 Weight 158.1 kg 155.9 kg General appearance: PRESENT: no acute distress, cooperative, morbidly obese - Super, well-developed, well-nourished Head exam: PRESENT: atraumatic, normocephalic Eye exam: PRESENT: conjunctiva pale, EOMI, PERRLA. ABSENT: scleral icterus Mouth exam: PRESENT: moist, tongue midline Respiratory exam: PRESENT: clear to auscultation vadim, symmetrical, unlabored, other - Supplemental oxygen by nasal cannula. ABSENT: rales, rhonchi, wheezes Cardiovascular exam: PRESENT: RRR, +S1, +S2. ABSENT: diastolic murmur, rubs, systolic murmur Pulses: PRESENT: normal dorsalis pedis pul Vascular exam: PRESENT: normal capillary refill GI/Abdominal exam: PRESENT: normal bowel sounds, soft. ABSENT: distended, guarding, mass, organolmegaly, rebound, tenderness Rectal exam: PRESENT: deferred Gentrourinary exam: PRESENT: indwelling catheter Extremities exam: PRESENT: full ROM, pedal edema, +1 edema - BLE. ABSENT: calf tenderness, clubbing Neurological exam: PRESENT: alert, awake, oriented to person, oriented to place, oriented to time, oriented to situation, CN II-XII grossly intact. ABSENT: motor sensory deficit Psychiatric exam: PRESENT: appropriate affect, normal mood. ABSENT: homicidal ideation, suicidal ideation Skin exam: PRESENT: dry, intact, warm. ABSENT: cyanosis, rash Results Laboratory Results: 04/13/19 06:05 04/13/19 06:05 04/13/19 04/13/19 06:05 06:05 WBC 8.1 RBC 2.63 L Hgb 8.4 L Hct 25.2 L MCV 96 MCH 32.1 MCHC 33.4 RDW 16.6 H Plt Count 223 Sodium 139.2 Potassium 4.4 Chloride 111 H Carbon Dioxide 24 Anion Gap 4 L BUN 67 H Creatinine 3.16 H Est GFR ( Amer) 18 L Glucose 157 H Calcium 7.9 L Total Bilirubin 0.3 AST 15 Alkaline Phosphatase 54 Total Protein 4.8 L Albumin 2.5 L 04/07/19 16:05 Blood Blood Culture - Final NO GROWTH IN 5 DAYS 04/07/19 15:04 Blood Blood Culture - Final NO GROWTH IN 5 DAYS 03/23/19 03/23/19 03/23/19 16:30 16:30 20:24 Creatine Kinase 95 CK-MB (CK-2) 4.75 H Troponin I 0.016 0.018 Impressions: Chest CT 03/29/19 09:10 IMPRESSION: 1. Asymmetric edema or pneumonia. Small pleural effusions. 2. Left apical lung nodule which will need serial followup. Renal Ultrasound 04/01/19 00:00 IMPRESSION: Normal right kidney. Neither the bladder or the left kidney can be identified. Chest X-Ray 04/08/19 00:00 IMPRESSION: Unchanged left lower lobe opacities, atelectasis or infection. Stable enlarged cardiac silhouette. Assessment and Plan - Diagnosis (1) Acute exacerbation of congestive heart failure Qualifiers: Heart failure type: diastolic Qualified Code(s): I50.33 - Acute on chronic diastolic (congestive) heart failure Is this a current diagnosis for this admission?: Yes Plan: Clinically, seems to have improved with hemodialysis. 2D echo 04/08: technically suboptimal study, likely compatible with diastolic dysfunction. She appears to be stable and without exacerbation at this time. However, she does remain fluid overloaded; weight is up approximately 9 kg. Currently on the medical floor with continuous cardiac telemetry Have cautiously resumed lowest dose carvedilol. Continue furosemide per nephrology. Excellent urine output. We will continue cardiac diet. Daily weights and strict I&O's. (2) Acute metabolic encephalopathy Is this a current diagnosis for this admission?: Yes Plan: Continues to improve. Continue to monitor for hallucinations. Family members report that the patient's abnormal mentation did precede her hospitalization (albeit not her "normal baseline"). Perhaps heralding her acute on chronic kidney failure. Continue weaning IV Solu-Medrol; transition to p.o. tomorrow. Continue home dose Lexapro. Consider mental health consult. (3) Acute on chronic renal failure Qualifiers: Acute renal failure type: unspecified Chronic kidney disease stage: stage 3 (moderate) Qualified Code(s): N17.9 - Acute kidney failure, unspecified; N18.3 - Chronic kidney disease, stage 3 (moderate) Is this a current diagnosis for this admission?: Yes Plan: Per Nephrology. Appears to have returned to near baseline. (4) Anemia in chronic kidney disease (CKD) Is this a current diagnosis for this admission?: Yes Plan: Hemoglobin stable; currently 8.1. Received Epoetin per nephrology. Continue management per their expertise (5) Mallory UTI Is this a current diagnosis for this admission?: Yes Plan: Completed fluconazole. (6) Dehydration Is this a current diagnosis for this admission?: Yes Plan: Resolved. Continue daily weights and strict I&O's. (7) Diabetes mellitus type 2 in obese Is this a current diagnosis for this admission?: Yes Plan: Consistent carb/dialysis diet Accu-Cheks before meals and at bedtime with Humalog for sliding scale coverage. Continue Lantus 15 units every morning. Hypoglycemia protocol in place. (8) Diarrhea Qualifiers: Diarrhea type: unspecified type Qualified Code(s): R19.7 - Diarrhea, unspecified Is this a current diagnosis for this admission?: Yes Plan: Chronic diarrhea per previous provider. Follow-up with GI as outpatient. (9) Hypertension Is this a current diagnosis for this admission?: Yes Plan: Resume carvedilol 3.125 mg twice daily as opposed to her home dose of 12.5 mg twice daily. Furosemide per nephrology. (10) Pneumonia Qualifiers: Pneumonia type: due to unspecified organism Laterality: unspecified laterality Lung location: unspecified part of lung Qualified Code(s): J18.9 - Pneumonia, unspecified organism Is this a current diagnosis for this admission?: Yes Plan: Resolved (11) Pulmonary nodule Is this a current diagnosis for this admission?: Yes Plan: Left apical nodule will need radiographic follow-up (noncontrast chest CT in 3 months). - Time Time Spent with patient: 25-34 minutes Medications reviewed and adjusted accordingly: Yes Anticipated discharge: SNF Within: within 48 hours - pending nephrology approval
--- NOTE | 2019-04-13 22:16 | PDOC PROGRESS REPORT ---
Subjective Progress Note for:: 04/13/19 Subjective:: Patient is now transferred to the regular floor. She states that she is feeling good and has no new complaints. She has made a good urine output of 1425 mL for the past 24 hours. Intake and output balance is actually -1325ml. She is asking me when she can come home. Reason For Visit: REPEATED FALLS, PNEUMONIA, OBESITY, GENERALIZED Physical Exam Vital Signs: Temp Pulse Resp BP Pulse Ox 97.6 F 79 18 166/97 H 100 04/13/19 09:06 04/13/19 09:06 04/13/19 09:06 04/13/19 09:06 04/13/19 09:06 Intake & Output 04/12/19 04/13/19 04/14/19 06:59 06:59 06:59 Intake Total 50 100 Output Total 1917 1425 Balance -1867 -1325 Weight 158.1 kg 155.9 kg Exam: General appearance: PRESENT: no acute distress, cooperative, well-developed, well-nourished Head exam: PRESENT: atraumatic, normocephalic Eye exam: PRESENT: conjunctiva pale, PERRLA. ABSENT: scleral icterus Neck exam: ABSENT: JVD Respiratory exam: PRESENT: Normal breath sounds. ABSENT: crackles, rales, rhonchi, unlabored, wheezes Cardiovascular exam: PRESENT: Regular rate rhythm -+S1, +S2. ABSENT: diastolic murmur, systolic murmur GI/Abdominal exam: PRESENT: normal bowel sounds, soft. ABSENT: guarding, mass, tenderness Extremities exam: Grade 1 bilateral lower extremity pitting edema Neurological exam: PRESENT: alert, awake, oriented to person, place and time. Skin exam: PRESENT: dry, warm, Cardiovascular exam: PRESENT: +S1, +S2, systolic murmur GI/Abdominal exam: PRESENT: normal bowel sounds, soft. ABSENT: organomegaly, tenderness Results Laboratory Results: 04/13/19 06:05 04/13/19 06:05 04/13/19 04/13/19 06:05 06:05 WBC 8.1 RBC 2.63 L Hgb 8.4 L Hct 25.2 L MCV 96 MCH 32.1 MCHC 33.4 RDW 16.6 H Plt Count 223 Sodium 139.2 Potassium 4.4 Chloride 111 H Carbon Dioxide 24 Anion Gap 4 L BUN 67 H Creatinine 3.16 H Est GFR ( Amer) 18 L Glucose 157 H Calcium 7.9 L Total Bilirubin 0.3 AST 15 Alkaline Phosphatase 54 Total Protein 4.8 L Albumin 2.5 L 04/07/19 16:05 Blood Blood Culture - Final NO GROWTH IN 5 DAYS 04/07/19 15:04 Blood Blood Culture - Final NO GROWTH IN 5 DAYS 03/23/19 03/23/19 03/23/19 16:30 16:30 20:24 Creatine Kinase 95 CK-MB (CK-2) 4.75 H Troponin I 0.016 0.018 Impressions: Chest CT 03/29/19 09:10 IMPRESSION: 1. Asymmetric edema or pneumonia. Small pleural effusions. 2. Left apical lung nodule which will need serial followup. Renal Ultrasound 04/01/19 00:00 IMPRESSION: Normal right kidney. Neither the bladder or the left kidney can be identified. Chest X-Ray 04/08/19 00:00 IMPRESSION: Unchanged left lower lobe opacities, atelectasis or infection. Stable enlarged cardiac silhouette. Assessment & Plan - Diagnosis (1) Acute kidney injury superimposed on chronic kidney disease Is this a current diagnosis for this admission?: Yes Plan: The patient started with oligo-anuria last week and is currently has improving urine output for the last couple of days after 1 dialysis treatment on 04/08/2019. She most likely had acute tubular necrosis secondary to an episode of bradycardia, hypotension and respiratory failure. Patient's urine output has improved and her kidney function is continuously improving. We will hold PermCath placement as I am not sure that the patient would still need renal replacement therapy at this point. I restarted her oral furosemide 40 mg p.o. twice daily since she had a pretty good response with Lasix yesterday. Continue to monitor kidney function. (2) Acute metabolic encephalopathy Is this a current diagnosis for this admission?: Yes Plan: This appears to be resolved. This is most likely secondary to uremia and respiratory failure last week. (3) Mallory UTI Is this a current diagnosis for this admission?: Yes Plan: Treated with fluconazole. (4) Chronic kidney disease, stage IV (severe) Is this a current diagnosis for this admission?: Yes Plan: Patient's creatinine has been running around 2+ but has been continuously slowly deteriorating for the last few months. She has non-nephrotic range proteinuria with urine protein to creatinine ratio of 2.1. Risk factors for kidney disease include diabetes mellitus, hypertension, obesity and congestive heart failure. (5) Dehydration Is this a current diagnosis for this admission?: Yes Plan: Patient appears to be euvolemic at this time although she has third spacing with hypoalbuminemia. (6) Pneumonia Qualifiers: Pneumonia type: due to unspecified organism Laterality: unspecified laterality Lung location: unspecified part of lung Qualified Code(s): J18.9 - Pneumonia, unspecified organism Is this a current diagnosis for this admission?: Yes Plan: Patient being treated with ceftriaxone. (7) Diabetes mellitus type 2 in obese Is this a current diagnosis for this admission?: Yes (8) Diastolic CHF Qualifiers: Heart failure chronicity: chronic Qualified Code(s): I50.32 - Chronic diastolic (congestive) heart failure Is this a current diagnosis for this admission?: Yes Plan: She seems to be compensated at this time. (9) HTN (hypertension) Qualifiers: Hypertension type: essential hypertension Qualified Code(s): I10 - Essential (primary) hypertension Is this a current diagnosis for this admission?: Yes Plan: Suboptimally controlled. I will restart her amlodipine 10 mg nightly. (10) Respiratory failure Qualifiers: Chronicity: acute on chronic Respiratory failure complication: hypercapnia Qualified Code(s): J96.22 - Acute and chronic respiratory failure with hypercapnia Is this a current diagnosis for this admission?: Yes Plan: Improved. Patient currently on nasal cannula and is doing well. (11) Anemia in chronic kidney disease (CKD) Is this a current diagnosis for this admission?: Yes Plan: Patient's iron indicis are adequate. She was given Retacrit last Thursday, 04/12. Continue Retacrit 20,000 units q. weekly on Fridays. (12) Chronic kidney disease-mineral and bone disorder Is this a current diagnosis for this admission?: Yes Plan: Phosphorus was elevated at 7.4 last week and now improved to 5.3. Corrected calcium is WNL. Her PTH is 209.6. Will start calcitriol 3 times a week. - Time Time with patient: 15-25 minutes
[2019-04-13] MEDS ORDERED: AMLODIPINE BESYLATE 10 MG TABLET PO ONE (23:00)
[2019-04-14] MEDS: HEPARIN SOD (PORCINE) 5,000 UNIT/ML 1 ML VIAL SUBCUT SCH ×3 (05:39→22:22)
[2019-04-14 06:23] LABS: HEMOGLOBIN 8.8 g/dL (12.0-15.5); MEAN CORPUSCULAR HEMOGLOBIN 32.2 pg (27.0-33.4); MEAN CORPUSCULAR HGB CONC 33.8 g/dL (32.0-36.0); MEAN CORPUSCULAR VOLUME 95 fl (80-97); PLATELET COUNT 200 10^3/uL (150-450); RED BLOOD COUNT 2.73 10^6/uL (3.72-5.28); RED CELL DISTRIBUTION WIDTH 16.5 % (11.5-14.0); WHITE BLOOD COUNT 8.1 10^3/uL (4.0-10.5)
[2019-04-14 06:52] LABS: ANION GAP 6 (5-19); BLOOD UREA NITROGEN 73 mg/dL (7-20); CALCIUM 7.9 mg/dL (8.4-10.2); CARBON DIOXIDE 24 mmol/L (22-30); CHLORIDE 110 mmol/L (98-107); GLUCOSE 156 mg/dL (75-110); POTASSIUM 4.3 mmol/L (3.6-5.0)
[2019-04-14] MEDS: METHYLPREDNISOLONE INJ 40 MG/1 ML SDV IV SCH ×2 (09:30→22:23)
[2019-04-14] MEDS: INSULIN LISPRO 100 UNIT/ML 3 ML VIAL SUBCUT SCH ×4 (09:31→22:24)
[2019-04-14] MEDS: INSULIN GLARGINE,HUM.REC.ANLOG 1,000 UNIT/10 ML VIAL SUBCUT SCH (09:32)
[2019-04-14] MEDS: FUROSEMIDE 40 MG TABLET PO SCH ×2 (09:33→17:39)
[2019-04-14] MEDS: CARVEDILOL 3.125 MG TABLET PO SCH ×2 (09:34→22:24)
[2019-04-14] MEDS: ASPIRIN 81 MG TABLET, ENT COATED PO SCH (09:35)
[2019-04-14] MEDS: ESCITALOPRAM OXALATE 10 MG TABLET PO SCH (09:35)
--- NOTE | 2019-04-14 18:42 | PDOC TRANSFER SUMMARY ---
Impression - Admit/DC Date/PCP Admission Date/Primary Care Provider: 03/23/19 18:51 NATACHA CORMIER MD Discharge Date: 04/14/19 - Discharge Diagnosis (1) Acute exacerbation of congestive heart failure Is this a current diagnosis for this admission?: Yes (2) Acute metabolic encephalopathy Is this a current diagnosis for this admission?: Yes (3) Acute on chronic renal failure Is this a current diagnosis for this admission?: Yes (4) Anemia in chronic kidney disease (CKD) Is this a current diagnosis for this admission?: Yes (5) Mallory UTI Is this a current diagnosis for this admission?: Yes (6) Dehydration Is this a current diagnosis for this admission?: Yes (7) Diabetes mellitus type 2 in obese Is this a current diagnosis for this admission?: Yes (8) Diarrhea Is this a current diagnosis for this admission?: Yes (9) Hypertension Is this a current diagnosis for this admission?: Yes (10) Pneumonia Is this a current diagnosis for this admission?: Yes (11) Pulmonary nodule Is this a current diagnosis for this admission?: Yes - Additional Information Resuscitation Status: Full Code Discharge Diet: Diabetic, Other (Comments) Discharge Activity: Activity As Tolerated, Balance Activity w/Rest, Slowly Increase Activity, Supervised Activity, Weigh Daily Referrals: NATACHA CORMIER MD [Primary Care Provider] - 04/21/19 9:45 am (PLEASE BRING ALL MEDICATIONS TO APPT.) Prescriptions: Carvedilol [Coreg 3.125 mg Tablet] 3.125 mg PO Q12 #60 tablet Furosemide [Lasix 40 mg Tablet] 40 mg PO BID #60 tablet Amlodipine Besylate [Norvasc 10 mg Tablet] 10 mg PO QHS #30 tablet Famotidine [Pepcid 20 mg Tablet] 20 mg PO DAILY #30 tablet Calcitriol [Rocaltrol 0.25 mcg Capsule] 0.25 mcg PO MoWeFr@1000 #12 capsule Home Medications: Aspirin [Adult Low Dose Aspirin EC] 81 mg PO DAILY 01/18/19 Escitalopram Oxalate [Lexapro] 20 mg PO DAILY 01/18/19 Insulin Glargine,Hum.rec.anlog [Lantus Insulin 100 Unit/1 ml 10 ml] 15 units SQ QAM 01/18/19 Mirabegron [Myrbetriq] 50 mg PO DAILY 01/18/19 Acetaminophen [Tylenol 325 mg Tablet] 650 mg PO Q6HP PRN tablet 04/14/19 Amlodipine Besylate [Norvasc 10 mg Tablet] 10 mg PO QHS #30 tablet 04/14/19 Calcitriol [Rocaltrol 0.25 mcg Capsule] 0.25 mcg PO MoWeFr@1000 #12 capsule 04/14/19 Carvedilol [Coreg 3.125 mg Tablet] 3.125 mg PO Q12 #60 tablet 04/14/19 Famotidine [Pepcid 20 mg Tablet] 20 mg PO DAILY #30 tablet 04/14/19 Furosemide [Lasix 40 mg Tablet] 40 mg PO BID #60 tablet 04/14/19 History of Present Illiness History of Present Illness: H&P by David Mueller PA-C: FINA HERNÁNDEZ is a 63 year old female who was brought into the hospital with repeated falls generalized weakness and possible pneumonia. Patient was just discharged from the hospital on 01/29/2019 with multiple diagnoses to include a aphasia respiratory failure anemia of chronic disease chronic kidney disease hypertension orbit obesity. At the time of discharge she was feeling well asking to go home she was alert she had caregivers at home. There are states today however that since she has been home she has had multiple falls. EMS has been called about 30 times in the last 4 weeks maybe 6 weeks to help get her up off the floor. Patient and family would like her to be admitted to rehab at the time of discharge and or nursing home facility. Chest x-ray today shows stable appearance and a possible retrocardiac pneumonia however patient has no history of cough fever chills sputum production or other symptoms suggestive of pneumonia. Urinalysis shows just a trace of leukocytes. Hospital Course Hospital Course: The patient is a 63-year-old female with a past medical history of CHF, CAD, hypertension, hyperlipidemia, asthma, NILO (noncompliant with CPAP) DM 2, obesity, arthritis, depression, CKD 4 who was admitted 03/23/2019 with urinary tract infection and pneumonia. 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 She is completed a full course of antibiotic therapy for treatment of her pneumonia. She has completed treatment of her Mallory UTI with Diflucan. Her hypothermia and hypotension have resolved. She is returned to her baseline kidney function following 1 session of hemodialysis. Metabolic encephalopathy has now resolved; no further episodes of visual hallucinations. She is hemodynamically stable and ready for discharge to SNF for continued rehabilitation. (1) Acute exacerbation of congestive heart failure Exacerbation has resolved. 2D echo 04/08: technically suboptimal study, likely compatible with diastolic dysfunction. Patient did receive 1 dialysis session. She has had return of urinary output been restarted on her home dose furosemide with adequate urinary output and return of renal function to her baseline status. Weight continues to trend down. She appears to be stable and not in exacerbation at this time. Lung sounds are clear; maintaining oxygen saturations on 2 L/min. Recommend continued low-dose carvedilol, Norvasc, furosemide. Continue cardiac diet. Continue daily weights. (2) Acute metabolic encephalopathy Resolved. (3) Acute on chronic renal failure Acute exacerbation has resolved. Renal function now at her baseline. Spoke with Dr. Ramirez prior to discharge; would like to see the patient in the clinic in 2 to 3 weeks. Continue Epoetin weekly for hemoglobin less than 10. (4) Anemia in chronic kidney disease (CKD) Hemoglobin stable; currently 8.1. Continue Epoetin weekly for hemoglobin less than 10. Follow up with Dr. Ramirez within 2-3 weeks. (5) Mallory UTI Resolved. Completed fluconazole. (6) Dehydration Resolved. (7) Diabetes mellitus type 2 in obese Recommend continued Consistent carb/dialysis diet with Humalog for sliding scale coverage. Continue Lantus 15 units every morning. (8) Diarrhea Chronic diarrhea Follow-up with GI as outpatient. (9) Hypertension Well-controlled on carvedilol, amlodipine, and furosemide. (10) Pneumonia Resolved (11) Pulmonary nodule Left apical nodule will need radiographic follow-up (noncontrast chest CT in 3 months). Physical Exam Vital Signs: Temp Pulse Resp BP Pulse Ox 99.0 F 75 16 168/66 H 97 04/14/19 14:57 04/14/19 14:57 04/14/19 14:57 04/14/19 14:57 04/14/19 14:57 Intake & Output 04/13/19 04/14/19 04/15/19 06:59 06:59 06:59 Intake Total 100 843 400 Output Total 1425 2400 800 Balance -1325 -1557 -400 Weight 155.9 kg 154.8 kg General appearance: PRESENT: no acute distress, cooperative, morbidly obese - super, well-developed, well-nourished Head exam: PRESENT: atraumatic, normocephalic Eye exam: PRESENT: conjunctiva pink, EOMI, PERRLA. ABSENT: scleral icterus Mouth exam: PRESENT: moist, tongue midline Respiratory exam: PRESENT: clear to auscultation vadim, symmetrical, unlabored, other - Supplemental oxygen by nasal cannula. ABSENT: rales, rhonchi, wheezes Cardiovascular exam: PRESENT: RRR, +S1, +S2. ABSENT: diastolic murmur, rubs, systolic murmur Vascular exam: PRESENT: normal capillary refill GI/Abdominal exam: PRESENT: normal bowel sounds, soft, other - rotund; exam limitedsecondary to body habitus. ABSENT: distended, guarding, mass, organolmegaly, rebound, tenderness Rectal exam: PRESENT: deferred Extremities exam: PRESENT: full ROM, pedal edema - Trace bilaterally. ABSENT: calf tenderness, clubbing Neurological exam: PRESENT: alert, awake, oriented to person, oriented to place, oriented to time, oriented to situation, CN II-XII grossly intact. ABSENT: motor sensory deficit Psychiatric exam: PRESENT: appropriate affect, normal mood. ABSENT: homicidal ideation, suicidal ideation Skin exam: PRESENT: dry, intact, warm. ABSENT: cyanosis, rash Results Laboratory Results: WBC 8.1 10^3/uL (4.0-10.5) 04/14/19 05:56 RBC 2.73 10^6/uL (3.72-5.28) L 04/14/19 05:56 Hgb 8.8 g/dL (12.0-15.5) L 04/14/19 05:56 Hct 26.0 % (36.0-47.0) L 04/14/19 05:56 MCV 95 fl (80-97) 04/14/19 05:56 MCH 32.2 pg (27.0-33.4) 04/14/19 05:56 MCHC 33.8 g/dL (32.0-36.0) 04/14/19 05:56 RDW 16.5 % (11.5-14.0) H 04/14/19 05:56 Plt Count 200 10^3/uL (150-450) 04/14/19 05:56 Lymph % (Auto) Not Reportable 04/12/19 05:38 [place] % (Auto) Not Reportable 04/12/19 05:38 Eos % (Auto) Not Reportable 04/12/19 05:38 Baso % (Auto) Not Reportable 04/12/19 05:38 Reticulocyte # 0.063 10^6/uL (0.028-0.122) 04/08/19 05:21 Absolute Neuts (auto) Not Reportable 04/12/19 05:38 Absolute Lymphs (auto) Not Reportable 04/12/19 05:38 Absolute Monos (auto) Not Reportable 04/12/19 05:38 Absolute Eos (auto) Not Reportable 04/12/19 05:38 Absolute Basos (auto) Not Reportable 04/12/19 05:38 Total Counted 100 04/12/19 05:38 Seg Neutrophils % Not Reportable 04/12/19 05:38 Seg Neuts % (Manual) 90 % (42-78) H 04/12/19 05:38 Band Neutrophils % 1 % (3-5) L 04/06/19 14:49 Lymphocytes % (Manual) 7 % (13-45) L 04/12/19 05:38 Monocytes % (Manual) 3 % (3-13) 04/12/19 05:38 Eosinophils % (Manual) 0 % (0-6) 04/12/19 05:38 Basophils % (Manual) 0 % (0-2) 04/12/19 05:38 Abs Neuts (Manual) 5.7 10^3/uL (1.7-8.2) 04/12/19 05:38 Abs Lymphs (Manual) 0.4 10^3/uL (0.5-4.7) L 04/12/19 05:38 Abs Monocytes (Manual) 0.2 10^3/uL (0.1-1.4) 04/12/19 05:38 Absolute Eos (Manual) 0.0 10^3/uL (0.0-0.6) 04/12/19 05:38 Abs Basophils (Manual) 0.0 10^3/uL (0.0-0.2) 04/12/19 05:38 Nucleated RBCs 1 /100 WBC (0) 04/12/19 05:38 Toxic Granulation SLIGHT 04/08/19 05:21 Clumped Platelets PRESENT 04/07/19 03:40 Platelet Comment ADEQUATE 04/12/19 05:38 Polychromasia SLIGHT 04/12/19 05:38 Basophilic Stippling PRESENT 04/12/19 05:38 Anisocytosis 1+ 04/12/19 05:38 Macrocytosis SLIGHT 04/08/19 05:21 Tear Drop Cells SLIGHT 04/12/19 05:38 Retic Count (auto) 2.36 % (0.66-2.85) 04/08/19 05:21 PT 14.5 SEC (11.4-15.4) 03/23/19 16:25 INR 1.12 03/23/19 16:25 APTT 35.0 SEC (23.5-35.8) 03/24/19 05:19 Carbonic Acid 1.16 mmol/L (1.05-1.35) 04/08/19 17:20 HCO3/H2CO3 Ratio 15:1 04/08/19 17:20 ABG pH 7.29 (7.35-7.45) L 04/08/19 17:20 ABG pCO2 38.6 mmHg (35-45) 04/08/19 17:20 ABG pO2 80.1 mmHg (80-100) 04/08/19 17:20 ABG HCO3 17.9 mmol/L (20-24) L 04/08/19 17:20 ABG Total CO2 19.1 mmol/L (21-25) L 04/08/19 17:20 ABG O2 Saturation 94.6 % (94-98) 04/08/19 17:20 ABG Base Excess -8.1 mmol/L 04/08/19 17:20 FiO2 30% 04/08/19 17:20 Sodium 140.2 mmol/L (137-145) 04/14/19 05:56 Potassium 4.3 mmol/L (3.6-5.0) 04/14/19 05:56 Chloride 110 mmol/L (98-107) H 04/14/19 05:56 Carbon Dioxide 24 mmol/L (22-30) 04/14/19 05:56 Anion Gap 6 (5-19) 04/14/19 05:56 BUN 73 mg/dL (7-20) H 04/14/19 05:56 Creatinine 2.97 mg/dL (0.52-1.25) H 04/14/19 05:56 Est GFR ( Amer) 19 (>60) L 04/14/19 05:56 Est GFR (Non-Af Amer) Cancelled 03/28/19 04:30 Est GFR (MDRD) Non-Af 16 (>60) L 04/14/19 05:56 Glucose 156 mg/dL (75-110) H 04/14/19 05:56 POC Glucose 191 mg/dL (70-110) H 04/14/19 17:10 Lactic Acid < 0.5 mmol/L (0.7-2.1) L 04/08/19 05:21 Calcium 7.9 mg/dL (8.4-10.2) L 04/14/19 05:56 Phosphorus 5.3 mg/dL (2.5-4.5) H 04/12/19 05:38 Magnesium 1.7 mg/dL (1.6-2.3) 04/08/19 05:21 Iron 115.9 ug/dL (37-170) 04/08/19 05:21 TIBC 167 ug/dL (250-450) L 04/08/19 05:21 % Saturation 69 % 04/08/19 05:21 Ferritin 347.00 ng/mL (11.1-264.0) H 04/08/19 05:21 Total Bilirubin 0.3 mg/dL (0.2-1.3) 04/13/19 06:05 Direct Bilirubin 0.1 mg/dL (0.0-0.4) 04/13/19 06:05 Neonat Total Bilirubin Not Reportable 04/13/19 06:05 Neonat Direct Bilirubin Not Reportable 04/13/19 06:05 Neonat Indirect Bili Not Reportable 04/13/19 06:05 AST 15 U/L (14-36) 04/13/19 06:05 ALT 8 U/L (<35) 04/13/19 06:05 Alkaline Phosphatase 54 U/L (38-126) 04/13/19 06:05 Creatine Kinase 95 U/L (30-135) 03/23/19 16:30 CK-MB (CK-2) 4.75 ng/mL (<4.55) H 03/23/19 16:30 Troponin I 0.018 ng/mL 03/23/19 20:24 Total Protein 4.8 g/dL (6.3-8.2) L 04/13/19 06:05 Albumin 2.5 g/dL (3.5-5.0) L 04/13/19 06:05 EGFR Cancelled 03/28/19 04:30 Vitamin B12 730.0 pg/mL (239-931) 04/08/19 05:21 Folate 6.17 ng/mL (>2.76) 04/08/19 05:21 TSH 5.67 uIU/mL (0.47-4.68) H 03/23/19 16:25 PTH Intact 203.6 pg/mL (10.0-65.0) H 04/12/19 06:18 Random Cortisol 17.70 ug/dL (None Established) 04/08/19 01:44 Urine Color [place] 04/04/19 18:25 Urine Appearance TURBID 04/04/19 18:25 Urine pH 5.0 (5.0-9.0) 04/04/19 18:25 Ur Specific [place] 1.017 04/04/19 18:25 Urine Protein >=500 mg/dL (NEGATIVE) H 04/04/19 18:25 Urine Glucose (UA) 50 mg/dL (NEGATIVE) H 04/04/19 18:25 Urine Ketones NEGATIVE mg/dL (NEGATIVE) 04/04/19 18:25 Urine Blood LARGE (NEGATIVE) H 04/04/19 18:25 Urine Nitrite NEGATIVE (NEGATIVE) 04/04/19 18:25 Urine Nitrite (Reflex) NEGATIVE (NEGATIVE) 03/23/19 18:00 Urine Bilirubin NEGATIVE (NEGATIVE) 04/04/19 18:25 Urine Urobilinogen NEGATIVE mg/dL (<2.0) 04/04/19 18:25 Ur Leukocyte Esterase LARGE (NEGATIVE) H 04/04/19 18:25 Leukocyte Esterase Rfl TRACE (NEGATIVE) H 03/23/19 18:00 Urine WBC (Auto) >182 /HPF 04/04/19 18:25 Urine RBC (Auto) >182 /HPF 04/04/19 18:25 Urine Bacteria (Auto) 2+ /HPF 04/04/19 18:25 Urine WBC (Reflex) 14 /HPF 03/23/19 18:00 Squamous Epi Cells Auto 7 /HPF 04/04/19 18:25 U Non-Squamous Epis Auto 8 /HPF 04/04/19 18:25 Calcium Oxalate Cr Auto TOO NUMEROUS TO CNT /HPF 04/04/19 18:25 Amorphous Sediment Auto TRACE /HPF 04/04/19 18:25 Urine Mucus (Auto) RARE /LPF 04/04/19 18:25 Urine Yeast (Budding) PRESENT /HPF 04/04/19 18:25 Urine Creatinine 71.2 mg/dL (15-278) 04/11/19 13:00 Protein/Creatinin Ratio 2.1 mg/mg (0.0-0.2) H 04/04/19 18:25 Urine Sodium 22 mmol/L (30-90) L 04/11/19 13:00 Urine Total Protein 532.0 mg/dL (<12) H 04/04/19 18:25 Urine Ascorbic Acid NEGATIVE (NEGATIVE) 04/04/19 18:25 Stool for White Cells NO WBCs SEEN 04/02/19 21:10 Stl C. Difficile GDH Ag NEGATIVE (NEGATIVE) 04/01/19 19:45 Stl C.difficile Tox A&B NEGATIVE (NEGATIVE) 04/01/19 19:45 Hep Bs Antigen Negative (Negative) 04/07/19 15:04 Hep Bs Antibody, Quant <3.1 mIU/mL (Immunity>9) L 04/07/19 15:04 Hep B Core Total Ab Negative (Negative) 04/07/19 15:04 HCV Quantitation HCV Not Detected IU/mL (.) 04/07/19 15:04 HCV RNA PCR Test Info Comment (.) 04/07/19 15:04 03/23/19 03/23/19 16:30 20:24 CK-MB (CK-2) 4.75 H Troponin I 0.016 0.018 Impressions: Chest X-Ray 03/23/19 16:17 IMPRESSION: Stable appearance of the chest with cardiomegaly and probable retrocardiac pneumonia. Chest X-Ray 03/27/19 07:00 IMPRESSION: Unchanged left lower lobe consolidation. Chest CT 03/29/19 09:10 IMPRESSION: 1. Asymmetric edema or pneumonia. Small pleural effusions. 2. Left apical lung nodule which will need serial followup. Renal Ultrasound 04/01/19 00:00 IMPRESSION: Normal right kidney. Neither the bladder or the left kidney can be identified. Chest X-Ray 04/03/19 11:26 IMPRESSION: LIMITED STUDY. NO SIGNIFICANT CHANGE. Chest X-Ray 04/08/19 00:00 IMPRESSION: Unchanged left lower lobe opacities, atelectasis or infection. Stable enlarged cardiac silhouette. Stroke Is this a Stroke Patient?: No Acute Heart Failure - Is this a Heart Failure Patient?: Yes Documentation of LVEF assessment?: Yes LVEF < 40%?: No- if no continue to question #3 3. Anticoagulant therapy for permanect/persistent/paraoxysmal Afib or Aflutter: N/A Follow-up Appointment scheduled within 7 days?: No, document reason - Discharge to SNF
--- NOTE | 2019-04-14 20:30 | PDOC PROGRESS REPORT ---
Subjective Progress Note for:: 04/14/19 Subjective:: Patient is doing well. She has made about 2400 mL of urine. Says she feels good and she is ready to go home but she also agrees that she needs to be at rehab facility. She has no new complaints today. Reason For Visit: REPEATED FALLS, PNEUMONIA, OBESITY, GENERALIZED Physical Exam Vital Signs: Temp Pulse Resp BP Pulse Ox 99.0 F 75 16 168/66 H 97 04/14/19 14:57 04/14/19 14:57 04/14/19 14:57 04/14/19 14:57 04/14/19 14:57 Intake & Output 04/13/19 04/14/19 04/15/19 06:59 06:59 06:59 Intake Total 100 843 640 Output Total 1425 2400 800 Balance -1325 -1557 -160 Weight 155.9 kg 154.8 kg Exam: General appearance: PRESENT: no acute distress, cooperative, well-developed, well-nourished Head exam: PRESENT: atraumatic, normocephalic Eye exam: PRESENT: conjunctiva slightly pale, PERRLA. ABSENT: scleral icterus Neck exam: ABSENT: JVD Respiratory exam: PRESENT: Diminished breath sounds. ABSENT: crackles, rales, rhonchi, unlabored, wheezes Cardiovascular exam: PRESENT: Regular rate rhythm -+S1, +S2. ABSENT: diastolic murmur, systolic murmur GI/Abdominal exam: PRESENT: normal bowel sounds, soft. ABSENT: guarding, mass, tenderness Extremities exam: Slightly improved grade 1 bilateral lower extremity pitting edema Neurological exam: PRESENT: alert, awake, oriented to person, place and time. Skin exam: PRESENT: dry, warm, Cardiovascular exam: PRESENT: +S1, +S2, systolic murmur GI/Abdominal exam: PRESENT: normal bowel sounds, soft. ABSENT: organomegaly, tenderness Results Laboratory Results: 04/14/19 05:56 04/14/19 05:56 04/14/19 04/14/19 05:56 05:56 WBC 8.1 RBC 2.73 L Hgb 8.8 L Hct 26.0 L MCV 95 MCH 32.2 MCHC 33.8 RDW 16.5 H Plt Count 200 Sodium 140.2 Potassium 4.3 Chloride 110 H Carbon Dioxide 24 Anion Gap 6 BUN 73 H Creatinine 2.97 H Est GFR ( Amer) 19 L Glucose 156 H Calcium 7.9 L 03/23/19 03/23/19 03/23/19 16:30 16:30 20:24 Creatine Kinase 95 CK-MB (CK-2) 4.75 H Troponin I 0.016 0.018 Impressions: Chest CT 03/29/19 09:10 IMPRESSION: 1. Asymmetric edema or pneumonia. Small pleural effusions. 2. Left apical lung nodule which will need serial followup. Renal Ultrasound 04/01/19 00:00 IMPRESSION: Normal right kidney. Neither the bladder or the left kidney can be identified. Chest X-Ray 04/08/19 00:00 IMPRESSION: Unchanged left lower lobe opacities, atelectasis or infection. Stable enlarged cardiac silhouette. Assessment & Plan - Diagnosis (1) Acute kidney injury superimposed on chronic kidney disease Is this a current diagnosis for this admission?: Yes Plan: The patient started with oligo-anuria last week which required 1 dialysis shruthi atment on 04/08/2019. She most likely had acute tubular necrosis secondary to an episode of bradycardia, hypotension and respiratory failure. Patient's urine output has improved and her kidney function is continuously improving. Patient is currently near her baseline kidney function. Continue current management including furosemide 40 mg twice daily upon discharge. Patient to follow-up with me in about 2 to 3 weeks after discharge. (2) Acute metabolic encephalopathy Is this a current diagnosis for this admission?: Yes Plan: This appears to be resolved. This is most likely secondary to uremia and respiratory failure last week. (3) Mallory UTI Is this a current diagnosis for this admission?: Yes Plan: Treated with fluconazole. (4) Chronic kidney disease, stage IV (severe) Is this a current diagnosis for this admission?: Yes Plan: Patient's creatinine has been running around 2+ but has been continuously slowly deteriorating for the last few months. She has non-nephrotic range proteinuria with urine protein to creatinine ratio of 2.1. Risk factors for kidney disease include diabetes mellitus, hypertension, obesity and congestive heart failure. (5) Dehydration Is this a current diagnosis for this admission?: Yes Plan: Patient appears to be euvolemic at this time although she has third spacing with hypoalbuminemia. (6) Pneumonia Qualifiers: Pneumonia type: due to unspecified organism Laterality: unspecified laterality Lung location: unspecified part of lung Qualified Code(s): J18.9 - Pneumonia, unspecified organism Is this a current diagnosis for this admission?: Yes Plan: Patient treated with ceftriaxone. (7) Diabetes mellitus type 2 in obese Is this a current diagnosis for this admission?: Yes (8) Diastolic CHF Qualifiers: Heart failure chronicity: chronic Qualified Code(s): I50.32 - Chronic diastolic (congestive) heart failure Is this a current diagnosis for this admission?: Yes Plan: She seems to be compensated at this time. (9) HTN (hypertension) Qualifiers: Hypertension type: essential hypertension Qualified Code(s): I10 - Essential (primary) hypertension Is this a current diagnosis for this admission?: Yes Plan: Suboptimally controlled. I restarted her amlodipine 10 mg nightly. (10) Respiratory failure Qualifiers: Chronicity: acute on chronic Respiratory failure complication: hypercapnia Qualified Code(s): J96.22 - Acute and chronic respiratory failure with hypercapnia Is this a current diagnosis for this admission?: Yes Plan: Improved. Patient currently on nasal cannula and is doing well. (11) Anemia in chronic kidney disease (CKD) Is this a current diagnosis for this admission?: Yes Plan: Patient's iron indicis are adequate. She was given Retacrit last Thursday, 04/08. Continue Retacrit 20,000 units q. weekly on Fridays. (12) Chronic kidney disease-mineral and bone disorder Is this a current diagnosis for this admission?: Yes Plan: Phosphorus was elevated at 7.4 last week and now improved to 5.3. Corrected calcium is WNL. Her PTH is 209.6. Will start calcitriol 3 times a week. - Notes Notes: From nephrology standpoint the patient can be transferred to rehabilitation facility. Continue current medications. Follow-up visit with me in 2 to 3 weeks with labs including renal panel, and CBC. - Time Time with patient: 15-25 minutes
[2019-04-14] MEDS: AMLODIPINE BESYLATE 10 MG TABLET PO SCH (22:23)
[2019-04-15] MEDS: HEPARIN SOD (PORCINE) 5,000 UNIT/ML 1 ML VIAL SUBCUT SCH ×3 (05:48→21:58)
[2019-04-15] MEDS: INSULIN LISPRO 100 UNIT/ML 3 ML VIAL SUBCUT SCH ×4 (09:00→21:59)
[2019-04-15] MEDS: INSULIN GLARGINE,HUM.REC.ANLOG 1,000 UNIT/10 ML VIAL SUBCUT SCH (09:03)
[2019-04-15] MEDS: FUROSEMIDE 40 MG TABLET PO SCH ×2 (09:03→17:34)
[2019-04-15] MEDS: CALCITRIOL 0.25 MCG CAPSULE PO SCH (09:03)
[2019-04-15] MEDS: CARVEDILOL 3.125 MG TABLET PO SCH ×2 (09:04→21:59)
[2019-04-15] MEDS: ASPIRIN 81 MG TABLET, ENT COATED PO SCH (09:04)
[2019-04-15] MEDS: ESCITALOPRAM OXALATE 10 MG TABLET PO SCH (09:04)
[2019-04-15] MEDS: METHYLPREDNISOLONE INJ 40 MG/1 ML SDV IV SCH (09:05)
[2019-04-15] MEDS ORDERED: EPOETIN ALFA-EPBX 20,000 UNITS (NON-ESRD) in SYRINGE SUBCUT ONE (10:00)
[2019-04-15] MEDS: ACETAMINOPHEN 325 MG TABLET PO PRN (12:13)
--- NOTE | 2019-04-15 18:04 | PDOC PROGRESS REPORT ---
Subjective Progress Note for:: 04/15/19 Subjective:: The patient is a 63-year-old female with a past medical history of CHF, CAD, hypertension, hyperlipidemia, asthma, NILO (noncompliant with CPAP) DM 2, obesity, arthritis, depression, CKD 4 who was admitted 03/23/2019 with urinary tract infection and pneumonia. Patient was upgraded to the grinder set up operator jig service 04/08/19 due to hypotension, hypothermia, junctional rhythm, acute metabolic encephalopathy, metabolic acidosis and ptosis with respiratory acidosis and acute kidney injury superimposed on chronic kidney injury. She has completed a full course of antibiotic therapy for treatment of her pneumonia. She has completed treatment of her Mallory UTI with Diflucan. Her hypothermia and hypotension have resolved. She is returned to her baseline kidney function following 1 session of hemodialysis. Metabolic encephalopathy has now resolved; no further episodes of visual hallucinations. She is hemodynamically stable and ready for discharge to SNF for continued rehabilitation. Awaiting insurance authorization and bed offer. No complaints today; wants to go home but is agreeable to rehab. Denies fever, chest pain, palpitations, dyspnea, abd pain, n/v/d. No new questions or concerns. Reason For Visit: REPEATED FALLS, PNEUMONIA, OBESITY, GENERALIZED Physical Exam Vital Signs: Temp Pulse Resp BP Pulse Ox 98.4 F 71 16 173/73 H 97 04/15/19 15:54 04/15/19 15:54 04/15/19 15:54 04/15/19 15:54 04/15/19 15:54 Intake & Output 04/14/19 04/15/19 04/16/19 06:59 06:59 06:59 Intake Total 843 760 240 Output Total 2400 1500 200 Balance -1557 -740 40 Weight 154.8 kg 157.9 kg 157.9 kg General appearance: PRESENT: no acute distress, cooperative, morbidly obese - super, well-developed, well-nourished Head exam: PRESENT: atraumatic, normocephalic Eye exam: PRESENT: conjunctiva pink, EOMI, PERRLA. ABSENT: scleral icterus Mouth exam: PRESENT: moist, tongue midline Respiratory exam: PRESENT: clear to auscultation vadmi, symmetrical, unlabored, other - supplemental oxygen by nasal cannula. ABSENT: rales, rhonchi, wheezes Cardiovascular exam: PRESENT: RRR, +S1, +S2. ABSENT: diastolic murmur, rubs, systolic murmur Pulses: PRESENT: normal dorsalis pedis pul Vascular exam: PRESENT: normal capillary refill GI/Abdominal exam: PRESENT: normal bowel sounds, soft, other - rotund; exam limited secondary to body habitus. ABSENT: distended, guarding, mass, organolmegaly, rebound, tenderness Rectal exam: PRESENT: deferred Extremities exam: PRESENT: full ROM, pedal edema - trace bilaterally. ABSENT: calf tenderness, clubbing Neurological exam: PRESENT: alert, awake, oriented to person, oriented to place, oriented to time, oriented to situation, CN II-XII grossly intact. ABSENT: motor sensory deficit Psychiatric exam: PRESENT: appropriate affect, normal mood. ABSENT: homicidal ideation, suicidal ideation Skin exam: PRESENT: dry, intact, warm. ABSENT: cyanosis, rash Results Laboratory Results: 04/14/19 05:56 04/14/19 05:56 03/23/19 03/23/19 03/23/19 16:30 16:30 20:24 Creatine Kinase 95 CK-MB (CK-2) 4.75 H Troponin I 0.016 0.018 Impressions: Chest CT 03/29/19 09:10 IMPRESSION: 1. Asymmetric edema or pneumonia. Small pleural effusions. 2. Left apical lung nodule which will need serial followup. Renal Ultrasound 04/01/19 00:00 IMPRESSION: Normal right kidney. Neither the bladder or the left kidney can be identified. Chest X-Ray 04/08/19 00:00 IMPRESSION: Unchanged left lower lobe opacities, atelectasis or infection. Stable enlarged cardiac silhouette. Assessment and Plan - Diagnosis (1) Acute exacerbation of congestive heart failure Qualifiers: Heart failure type: diastolic Qualified Code(s): I50.33 - Acute on chronic diastolic (congestive) heart failure Is this a current diagnosis for this admission?: Yes Plan: Resolved. 2D echo 04/08: technically suboptimal study, likely compatible with diastolic dysfunction. She appears to be stable and without exacerbation at this time. Currently on the medical floor with continuous cardiac telemetry Continue carvedilol. Continue furosemide. Excellent urine output. We will continue cardiac diet. Daily weights and strict I&O's. (2) Acute metabolic encephalopathy Is this a current diagnosis for this admission?: Yes Plan: Resolved. Continue home dose Lexapro. (3) Acute on chronic renal failure Qualifiers: Acute renal failure type: unspecified Chronic kidney disease stage: stage 3 (moderate) Qualified Code(s): N17.9 - Acute kidney failure, unspecified; N18.3 - Chronic kidney disease, stage 3 (moderate) Is this a current diagnosis for this admission?: Yes Plan: Per Nephrology. Has returned to baseline. (4) Anemia in chronic kidney disease (CKD) Is this a current diagnosis for this admission?: Yes Plan: Hemoglobin stable; currently 8.1. Continue Epoetin weekly for Hgb <10 (5) Mallory UTI Is this a current diagnosis for this admission?: Yes Plan: Completed fluconazole. (6) Dehydration Is this a current diagnosis for this admission?: Yes Plan: Resolved. Continue daily weights and strict I&O's. (7) Diabetes mellitus type 2 in obese Is this a current diagnosis for this admission?: Yes Plan: Consistent carb/dialysis diet Accu-Cheks before meals and at bedtime with Humalog for sliding scale coverage. Continue Lantus 15 units every morning. Hypoglycemia protocol in place. (8) Diarrhea Qualifiers: Diarrhea type: unspecified type Qualified Code(s): R19.7 - Diarrhea, unspecified Is this a current diagnosis for this admission?: Yes Plan: Chronic diarrhea per previous provider. Follow-up with GI as outpatient. (9) Hypertension Is this a current diagnosis for this admission?: Yes Plan: Resume carvedilol 3.125 mg twice daily as opposed to her home dose of 12.5 mg twice daily. Furosemide per nephrology. (10) Pneumonia Qualifiers: Pneumonia type: due to unspecified organism Laterality: unspecified laterality Lung location: unspecified part of lung Qualified Code(s): J18.9 - Pneumonia, unspecified organism Is this a current diagnosis for this admission?: Yes Plan: Resolved (11) Pulmonary nodule Is this a current diagnosis for this admission?: Yes Plan: Left apical nodule will need radiographic follow-up (noncontrast chest CT in 3 months). - Time Time Spent with patient: 15-24 minutes Medications reviewed and adjusted accordingly: Yes Anticipated discharge: SNF Within: when bed available
[2019-04-15] MEDS ORDERED: EPOETIN ALFA-EPBX 10,000 UNIT/ML VIAL (NON-ESRD) SUBCUT SCH (21:16)
[2019-04-15] MEDS: AMLODIPINE BESYLATE 10 MG TABLET PO SCH (22:00)
[2019-04-16] MEDS: HEPARIN SOD (PORCINE) 5,000 UNIT/ML 1 ML VIAL SUBCUT SCH ×3 (06:07→22:22)
[2019-04-16] MEDS: INSULIN LISPRO 100 UNIT/ML 3 ML VIAL SUBCUT SCH ×4 (08:36→22:22)
[2019-04-16] MEDS: INSULIN GLARGINE,HUM.REC.ANLOG 1,000 UNIT/10 ML VIAL SUBCUT SCH (09:00)
[2019-04-16] MEDS: FUROSEMIDE 40 MG TABLET PO SCH ×2 (10:35→17:54)
[2019-04-16] MEDS: PREDNISONE 20 MG TABLET PO SCH (10:35)
[2019-04-16] MEDS: CARVEDILOL 3.125 MG TABLET PO SCH ×2 (10:36→22:23)
[2019-04-16] MEDS: ESCITALOPRAM OXALATE 10 MG TABLET PO SCH (10:36)
[2019-04-16] MEDS: ASPIRIN 81 MG TABLET, ENT COATED PO SCH (10:36)
--- NOTE | 2019-04-16 14:33 | PDOC PROGRESS REPORT ---
Subjective Progress Note for:: 04/16/19 Subjective:: The patient is a 63-year-old female with a past medical history of CHF, CAD, hypertension, hyperlipidemia, asthma, NILO (noncompliant with CPAP) DM 2, obesity, arthritis, depression, CKD 4 who was admitted 03/23/2019 with urinary tract infection and pneumonia. Patient was upgraded to the camp assistant service 04/08/19 due to hypotension, hypothermia, junctional rhythm, acute metabolic encephalopathy, metabolic acidosis and ptosis with respiratory acidosis and acute kidney injury superimposed on chronic kidney injury. She has completed a full course of antibiotic therapy for treatment of her pneumonia. She has completed treatment of her Mallory UTI with Diflucan. Her hypothermia and hypotension have resolved. She is returned to her baseline kidney function following 1 session of hemodialysis. Metabolic encephalopathy has now resolved; no further episodes of visual hallucinations. She is hemodynamically stable and ready for discharge to SNF for continued rehabilitation. Awaiting insurance authorization and bed offer. Patient was seen on afternoon rounds. She is found resting in bed, comfortably, on supplemental oxygen via nasal cannula. She was sleeping but woke easily when I said her name. No complaints today; wants to go home but is agreeable to rehab. Denies fever, chest pain, palpitations, dyspnea, abd pain, n/v/d. No new questions or concerns. Reason For Visit: REPEATED FALLS, PNEUMONIA, OBESITY, GENERALIZED Physical Exam Vital Signs: Temp Pulse Resp BP Pulse Ox 98.0 F 60 16 144/56 H 99 04/16/19 12:00 04/16/19 12:00 04/16/19 12:00 04/16/19 12:00 04/16/19 12:00 Intake & Output 04/15/19 04/16/19 04/17/19 06:59 06:59 06:59 Intake Total 760 600 360 Output Total 1500 2000 Balance -740 -1400 360 Weight 157.9 kg 158.5 kg General appearance: PRESENT: no acute distress, cooperative, morbidly obese - Super, well-developed, well-nourished Head exam: PRESENT: atraumatic, normocephalic Eye exam: PRESENT: conjunctiva pink, EOMI, PERRLA. ABSENT: scleral icterus Mouth exam: PRESENT: moist, tongue midline Respiratory exam: PRESENT: clear to auscultation vadim, symmetrical, unlabored, other - Supplemental oxygen by nasal cannula. ABSENT: rales, rhonchi, wheezes Cardiovascular exam: PRESENT: RRR, +S1, +S2. ABSENT: diastolic murmur, rubs, systolic murmur Pulses: PRESENT: normal dorsalis pedis pul Extremities exam: PRESENT: full ROM. ABSENT: calf tenderness, clubbing, pedal edema Neurological exam: PRESENT: alert, awake, oriented to person, oriented to place, oriented to time, oriented to situation, CN II-XII grossly intact. ABSENT: motor sensory deficit Psychiatric exam: PRESENT: appropriate affect, normal mood. ABSENT: homicidal ideation, suicidal ideation Skin exam: PRESENT: dry, intact, warm. ABSENT: cyanosis, rash Results Laboratory Results: 04/14/19 05:56 04/14/19 05:56 03/23/19 03/23/19 03/23/19 16:30 16:30 20:24 Creatine Kinase 95 CK-MB (CK-2) 4.75 H Troponin I 0.016 0.018 Impressions: Chest CT 03/29/19 09:10 IMPRESSION: 1. Asymmetric edema or pneumonia. Small pleural effusions. 2. Left apical lung nodule which will need serial followup. Renal Ultrasound 04/01/19 00:00 IMPRESSION: Normal right kidney. Neither the bladder or the left kidney can be identified. Chest X-Ray 04/08/19 00:00 IMPRESSION: Unchanged left lower lobe opacities, atelectasis or infection. Stable enlarged cardiac silhouette. Assessment and Plan - Diagnosis (1) Acute exacerbation of congestive heart failure Qualifiers: Heart failure type: diastolic Qualified Code(s): I50.33 - Acute on chronic diastolic (congestive) heart failure Is this a current diagnosis for this admission?: Yes Plan: Resolved. 2D echo 04/08: technically suboptimal study, likely compatible with diastolic dysfunction. She appears to be stable and without exacerbation at this time. Currently on the medical floor with continuous cardiac telemetry Continue carvedilol. Continue home dose furosemide. Excellent urine output. We will continue cardiac diet. Daily weights and strict I&O's. (2) Acute metabolic encephalopathy Is this a current diagnosis for this admission?: Yes Plan: Resolved. Continue home dose Lexapro. (3) Acute on chronic renal failure Qualifiers: Acute renal failure type: unspecified Chronic kidney disease stage: stage 3 (moderate) Qualified Code(s): N17.9 - Acute kidney failure, unspecified; N18.3 - Chronic kidney disease, stage 3 (moderate) Is this a current diagnosis for this admission?: Yes Plan: Per Nephrology. Has returned to baseline. (4) Anemia in chronic kidney disease (CKD) Is this a current diagnosis for this admission?: Yes Plan: Hemoglobin stable; currently 8.1. Continue Epoetin weekly for Hgb <10 (5) Mallory UTI Is this a current diagnosis for this admission?: Yes Plan: Completed fluconazole. (6) Dehydration Is this a current diagnosis for this admission?: Yes Plan: Resolved. (7) Diabetes mellitus type 2 in obese Is this a current diagnosis for this admission?: Yes Plan: Consistent carb/dialysis diet Accu-Cheks before meals and at bedtime with Humalog for sliding scale coverage. Continue Lantus 15 units every morning. Hypoglycemia protocol in place. (8) Diarrhea Qualifiers: Diarrhea type: unspecified type Qualified Code(s): R19.7 - Diarrhea, unspecified Is this a current diagnosis for this admission?: Yes Plan: Chronic diarrhea per previous provider. Follow-up with GI as outpatient. (9) Hypertension Is this a current diagnosis for this admission?: Yes Plan: Continue carvedilol 3.125 mg twice daily and home dose furosemide (10) Pneumonia Qualifiers: Pneumonia type: due to unspecified organism Laterality: unspecified laterality Lung location: unspecified part of lung Qualified Code(s): J18.9 - Pneumonia, unspecified organism Is this a current diagnosis for this admission?: Yes Plan: Resolved (11) Pulmonary nodule Is this a current diagnosis for this admission?: Yes Plan: Left apical nodule will need radiographic follow-up (noncontrast chest CT in 3 months). - Time Time Spent with patient: Less than 15 minutes Medications reviewed and adjusted accordingly: Yes Anticipated discharge: SNF Within: when bed available
[2019-04-16] MEDS: ACETAMINOPHEN 325 MG TABLET PO PRN (17:53)
[2019-04-16] MEDS ORDERED: FUROSEMIDE 40 MG TABLET ONE (17:58)
[2019-04-16] MEDS: AMLODIPINE BESYLATE 10 MG TABLET PO SCH (22:23)
[2019-04-17] MEDS: HEPARIN SOD (PORCINE) 5,000 UNIT/ML 1 ML VIAL SUBCUT SCH ×3 (05:28→21:47)
[2019-04-17] MEDS: INSULIN LISPRO 100 UNIT/ML 3 ML VIAL SUBCUT SCH ×4 (08:44→21:47)
[2019-04-17] MEDS: INSULIN GLARGINE,HUM.REC.ANLOG 1,000 UNIT/10 ML VIAL SUBCUT SCH (08:45)
[2019-04-17] MEDS: PREDNISONE 20 MG TABLET PO SCH (10:17)
[2019-04-17] MEDS: CARVEDILOL 3.125 MG TABLET PO SCH ×2 (10:17→21:48)
[2019-04-17] MEDS: ASPIRIN 81 MG TABLET, ENT COATED PO SCH (10:17)
[2019-04-17] MEDS: ESCITALOPRAM OXALATE 10 MG TABLET PO SCH (10:17)
[2019-04-17] MEDS: FUROSEMIDE 40 MG TABLET PO SCH ×2 (10:17→17:28)
--- NOTE | 2019-04-17 12:54 | PDOC PROGRESS REPORT ---
Subjective Progress Note for:: 04/17/19 Subjective:: The patient is a 63-year-old female with a past medical history of CHF, CAD, hypertension, hyperlipidemia, asthma, NILO (noncompliant with CPAP) DM 2, obesity, arthritis, depression, CKD 4 who was admitted 03/23/2019 with urinary tract infection and pneumonia. Patient was upgraded to the paratransit operator service 04/08/19 due to hypotension, hypothermia, junctional rhythm, acute metabolic encephalopathy, metabolic acidosis and ptosis with respiratory acidosis and acute kidney injury superimposed on chronic kidney injury. She has completed a full course of antibiotic therapy for treatment of her pneumonia. She has completed treatment of her Mallory UTI with Diflucan. Her hypothermia and hypotension have resolved. She is returned to her baseline kidney function following 1 session of hemodialysis. Metabolic encephalopathy has now resolved; no further episodes of visual hallucinations. She is hemodynamically stable and ready for discharge to SNF for continued rehabilitation. Awaiting insurance authorization and bed offer. Patient was seen on morning rounds. She is found resting in bed, comfortably, on supplemental oxygen via nasal cannula. She was sleeping but woke easily when I said her name. No complaints today. Denies fever, chest pain, palpitations, dyspnea, abd pain, n/v/d. No new questions or concerns. Reason For Visit: REPEATED FALLS, PNEUMONIA, OBESITY, GENERALIZED Physical Exam Vital Signs: Temp Pulse Resp BP Pulse Ox 98.3 F 69 19 155/63 H 98 04/17/19 11:37 04/17/19 11:37 04/17/19 11:37 04/17/19 11:37 04/17/19 11:37 Intake & Output 04/16/19 04/17/19 04/18/19 06:59 06:59 06:59 Intake Total 600 1420 Output Total 2000 800 Balance -1400 620 Weight 158.5 kg 155.4 kg General appearance: PRESENT: no acute distress, cooperative, morbidly obese - super, well-developed, well-nourished Head exam: PRESENT: atraumatic, normocephalic Eye exam: PRESENT: conjunctiva pink, EOMI, PERRLA. ABSENT: scleral icterus Mouth exam: PRESENT: moist, tongue midline Respiratory exam: PRESENT: clear to auscultation vadim, decreased breath sounds - throughout secondary to body habitus, positioning, inspiratory effort, symmetrical, unlabored, other - Supplemental oxygen via nasal cannula. ABSENT: rales, rhonchi, wheezes Cardiovascular exam: PRESENT: RRR. ABSENT: diastolic murmur, rubs, systolic murmur Pulses: PRESENT: normal dorsalis pedis pul Vascular exam: PRESENT: normal capillary refill Extremities exam: PRESENT: full ROM. ABSENT: calf tenderness, clubbing, pedal edema Neurological exam: PRESENT: alert, awake, oriented to person, oriented to place, oriented to time, oriented to situation, CN II-XII grossly intact. ABSENT: motor sensory deficit Psychiatric exam: PRESENT: appropriate affect, normal mood. ABSENT: homicidal ideation, suicidal ideation Skin exam: PRESENT: dry, intact, warm. ABSENT: cyanosis, rash Results Laboratory Results: 04/14/19 05:56 04/14/19 05:56 03/23/19 03/23/19 03/23/19 16:30 16:30 20:24 Creatine Kinase 95 CK-MB (CK-2) 4.75 H Troponin I 0.016 0.018 Impressions: Chest CT 03/29/19 09:10 IMPRESSION: 1. Asymmetric edema or pneumonia. Small pleural effusions. 2. Left apical lung nodule which will need serial followup. Renal Ultrasound 04/01/19 00:00 IMPRESSION: Normal right kidney. Neither the bladder or the left kidney can be identified. Chest X-Ray 04/08/19 00:00 IMPRESSION: Unchanged left lower lobe opacities, atelectasis or infection. Stable enlarged cardiac silhouette. Assessment and Plan - Diagnosis (1) Acute exacerbation of congestive heart failure Qualifiers: Heart failure type: diastolic Qualified Code(s): I50.33 - Acute on chronic diastolic (congestive) heart failure Is this a current diagnosis for this admission?: Yes Plan: Resolved. 2D echo 04/08: technically suboptimal study, likely compatible with diastolic dysfunction. She appears to be stable and without exacerbation at this time. Currently on the medical floor with continuous cardiac telemetry Continue carvedilol. Continue home dose furosemide. We will continue cardiac diet. Daily weights and strict I&O's. (2) Acute metabolic encephalopathy Is this a current diagnosis for this admission?: Yes Plan: Resolved. Continue home dose Lexapro. (3) Acute on chronic renal failure Qualifiers: Acute renal failure type: unspecified Chronic kidney disease stage: stage 3 (moderate) Qualified Code(s): N17.9 - Acute kidney failure, unspecified; N18.3 - Chronic kidney disease, stage 3 (moderate) Is this a current diagnosis for this admission?: Yes Plan: Per Nephrology. Has returned to baseline. (4) Anemia in chronic kidney disease (CKD) Is this a current diagnosis for this admission?: Yes Plan: Hemoglobin stable; currently 8.1. Continue Epoetin weekly for Hgb <10 (5) Mallory UTI Is this a current diagnosis for this admission?: Yes Plan: Completed fluconazole. (6) Dehydration Is this a current diagnosis for this admission?: Yes Plan: Resolved. (7) Diabetes mellitus type 2 in obese Is this a current diagnosis for this admission?: Yes Plan: Consistent carb/dialysis diet Accu-Cheks before meals and at bedtime with Humalog for sliding scale coverage. Continue Lantus 15 units every morning. Hypoglycemia protocol in place. (8) Diarrhea Qualifiers: Diarrhea type: unspecified type Qualified Code(s): R19.7 - Diarrhea, unspecified Is this a current diagnosis for this admission?: Yes Plan: Chronic diarrhea per previous provider. Follow-up with GI as outpatient. (9) Hypertension Is this a current diagnosis for this admission?: Yes Plan: Continue carvedilol 3.125 mg twice daily and home dose furosemide (10) Pneumonia Qualifiers: Pneumonia type: due to unspecified organism Laterality: unspecified laterality Lung location: unspecified part of lung Qualified Code(s): J18.9 - Pneumonia, unspecified organism Is this a current diagnosis for this admission?: Yes Plan: Resolved (11) Pulmonary nodule Is this a current diagnosis for this admission?: Yes Plan: Left apical nodule will need radiographic follow-up (noncontrast chest CT in 3 months). - Time Time Spent with patient: Less than 15 minutes Medications reviewed and adjusted accordingly: Yes Anticipated discharge: SNF Within: when bed available
[2019-04-17] MEDS: AMLODIPINE BESYLATE 10 MG TABLET PO SCH (21:48)
[2019-04-17] MEDS: ACETAMINOPHEN 325 MG TABLET PO PRN (21:54)
[2019-04-18] MEDS: HEPARIN SOD (PORCINE) 5,000 UNIT/ML 1 ML VIAL SUBCUT SCH ×3 (05:30→21:58)
[2019-04-18] MEDS: INSULIN LISPRO 100 UNIT/ML 3 ML VIAL SUBCUT SCH ×5 (09:04→21:57)
[2019-04-18] MEDS: CALCITRIOL 0.25 MCG CAPSULE PO SCH (09:05)
[2019-04-18] MEDS: ASPIRIN 81 MG TABLET, ENT COATED PO SCH (09:05)
[2019-04-18] MEDS: INSULIN GLARGINE,HUM.REC.ANLOG 1,000 UNIT/10 ML VIAL SUBCUT SCH (09:05)
[2019-04-18] MEDS: FUROSEMIDE 40 MG TABLET PO SCH ×2 (09:05→18:01)
[2019-04-18] MEDS: CARVEDILOL 3.125 MG TABLET PO SCH ×2 (09:05→21:57)
[2019-04-18] MEDS: PREDNISONE 20 MG TABLET PO SCH (09:05)
[2019-04-18] MEDS: ESCITALOPRAM OXALATE 10 MG TABLET PO SCH (09:06)
[2019-04-18] MEDS ORDERED: MAGNESIUM HYDROXIDE SUSP 30 ML UDCUP PO PRN (09:49)
--- NOTE | 2019-04-18 10:24 | PDOC PROGRESS REPORT ---
Subjective Progress Note for:: 04/18/19 Subjective:: The patient is a 63-year-old female with a past medical history of CHF, CAD, hypertension, hyperlipidemia, asthma, NILO (noncompliant with CPAP) DM 2, obesity, arthritis, depression, CKD 4 who was admitted 03/23/2019 with urinary tract infection and pneumonia. 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 She has completed a full course of antibiotic therapy for treatment of her pneumonia. She has completed treatment of her Mallory UTI with Diflucan. Her hypothermia and hypotension have resolved. She is returned to her baseline kidney function following 1 session of hemodialysis. Metabolic encephalopathy has now resolved; no further episodes of visual hallucinations. She is hemodynamically stable and ready for discharge to SNF for continued rehabilitation. Awaiting insurance authorization and bed offer. Patient was seen on morning rounds. She is found resting in bed, comfortably, on supplemental oxygen via nasal cannula. She was sleeping but woke easily when I said her name. Only concern today is constipation; requests laxative. Denies fever, chest pain, palpitations, dyspnea, abd pain, n/v/d. No new questions or concerns. Reason For Visit: REPEATED FALLS, PNEUMONIA, OBESITY, GENERALIZED Physical Exam Vital Signs: Temp Pulse Resp BP Pulse Ox 98.1 F 78 15 144/84 H 99 04/17/19 23:20 04/17/19 23:20 04/18/19 00:00 04/17/19 23:20 04/17/19 23:20 Intake & Output 04/17/19 04/18/19 04/19/19 06:59 06:59 06:59 Intake Total 1420 1230 Output Total 800 900 Balance 620 330 Weight 155.4 kg 157.5 kg General appearance: PRESENT: no acute distress, cooperative, morbidly obese - super, well-developed, well-nourished Head exam: PRESENT: atraumatic, normocephalic Eye exam: PRESENT: conjunctiva pink, EOMI, PERRLA. ABSENT: scleral icterus Ear exam: PRESENT: normal external ear exam Mouth exam: PRESENT: moist, tongue midline Respiratory exam: PRESENT: clear to auscultation vadim, decreased breath sounds - throughout secondary to body habitus, positioning, inspiratory effort, symmetrical, unlabored, other - Supplemental oxygen via nasal cannula. ABSENT: rales, rhonchi, wheezes Cardiovascular exam: PRESENT: RRR, +S1, +S2. ABSENT: diastolic murmur, rubs, systolic murmur Pulses: PRESENT: normal dorsalis pedis pul Vascular exam: PRESENT: normal capillary refill Extremities exam: PRESENT: full ROM, pedal edema - trace. ABSENT: calf tenderness, clubbing Neurological exam: PRESENT: alert, awake, oriented to person, oriented to place, oriented to time, oriented to situation, CN II-XII grossly intact. ABSENT: motor sensory deficit Psychiatric exam: PRESENT: appropriate affect, normal mood. ABSENT: homicidal ideation, suicidal ideation Skin exam: PRESENT: dry, intact, warm. ABSENT: cyanosis, rash Results Laboratory Results: 04/14/19 05:56 04/14/19 05:56 03/23/19 03/23/19 03/23/19 16:30 16:30 20:24 Creatine Kinase 95 CK-MB (CK-2) 4.75 H Troponin I 0.016 0.018 Impressions: Chest CT 03/29/19 09:10 IMPRESSION: 1. Asymmetric edema or pneumonia. Small pleural effusions. 2. Left apical lung nodule which will need serial followup. Renal Ultrasound 04/01/19 00:00 IMPRESSION: Normal right kidney. Neither the bladder or the left kidney can be identified. Chest X-Ray 04/08/19 00:00 IMPRESSION: Unchanged left lower lobe opacities, atelectasis or infection. Stable enlarged cardiac silhouette. Assessment and Plan - Diagnosis (1) Acute exacerbation of congestive heart failure Qualifiers: Heart failure type: diastolic Qualified Code(s): I50.33 - Acute on chronic diastolic (congestive) heart failure Is this a current diagnosis for this admission?: Yes Plan: Resolved. 2D echo 04/08: technically suboptimal study, likely compatible with diastolic dysfunction. She appears to be stable and without exacerbation at this time. Continue carvedilol. Continue home dose furosemide. We will continue cardiac diet. Daily weights and strict I&O's. (2) Acute metabolic encephalopathy Is this a current diagnosis for this admission?: Yes Plan: Resolved. Continue home dose Lexapro. (3) Acute on chronic renal failure Qualifiers: Acute renal failure type: unspecified Chronic kidney disease stage: stage 3 (moderate) Qualified Code(s): N17.9 - Acute kidney failure, unspecified; N18.3 - Chronic kidney disease, stage 3 (moderate) Is this a current diagnosis for this admission?: Yes Plan: Per Nephrology. Has returned to baseline. (4) Anemia in chronic kidney disease (CKD) Is this a current diagnosis for this admission?: Yes Plan: Hemoglobin stable; currently 8.1. Continue Epoetin weekly for Hgb <10 (5) Mallory UTI Is this a current diagnosis for this admission?: Yes Plan: Completed fluconazole. (6) Dehydration Is this a current diagnosis for this admission?: Yes Plan: Resolved. (7) Diabetes mellitus type 2 in obese Is this a current diagnosis for this admission?: Yes Plan: Consistent carb/dialysis diet Accu-Cheks before meals and at bedtime with Humalog for sliding scale coverage. Continue Lantus 15 units every morning. Hypoglycemia protocol in place. (8) Diarrhea Qualifiers: Diarrhea type: unspecified type Qualified Code(s): R19.7 - Diarrhea, unspecified Is this a current diagnosis for this admission?: Yes Plan: Chronic diarrhea per previous provider. Follow-up with GI as outpatient. (9) Hypertension Is this a current diagnosis for this admission?: Yes Plan: Continue carvedilol 3.125 mg twice daily and home dose furosemide (10) Pneumonia Qualifiers: Pneumonia type: due to unspecified organism Laterality: unspecified laterality Lung location: unspecified part of lung Qualified Code(s): J18.9 - Pneumonia, unspecified organism Is this a current diagnosis for this admission?: Yes Plan: Resolved (11) Pulmonary nodule Is this a current diagnosis for this admission?: Yes Plan: Left apical nodule will need radiographic follow-up (noncontrast chest CT in 3 months). (12) Constipation Is this a current diagnosis for this admission?: Yes Plan: Dulcolax suppository now. Milk of mag twice daily as needed. Encourage p.o. fluids. Encourage mobility. - Time Time Spent with patient: Less than 15 minutes Anticipated discharge: SNF Within: when bed available
[2019-04-18] MEDS ORDERED: BISACODYL 10 MG SUPP.RECT PR ONE (10:30)
[2019-04-18] MEDS ORDERED: (PENDING PHARMACY ID) (Mirabegron [Myrbetriq] 50 MG) PO SCH (13:00)
[2019-04-18] MEDS: AMLODIPINE BESYLATE 10 MG TABLET PO SCH (21:57)
[2019-04-19] MEDS: HEPARIN SOD (PORCINE) 5,000 UNIT/ML 1 ML VIAL SUBCUT SCH ×2 (05:15→16:32)
[2019-04-19] MEDS: INSULIN LISPRO 100 UNIT/ML 3 ML VIAL SUBCUT SCH ×3 (09:01→16:32)
[2019-04-19] MEDS: INSULIN GLARGINE,HUM.REC.ANLOG 1,000 UNIT/10 ML VIAL SUBCUT SCH (09:02)
[2019-04-19] MEDS: CARVEDILOL 3.125 MG TABLET PO SCH (09:03)
[2019-04-19] MEDS: ASPIRIN 81 MG TABLET, ENT COATED PO SCH (09:03)
[2019-04-19] MEDS: FUROSEMIDE 40 MG TABLET PO SCH (09:03)
[2019-04-19] MEDS: ESCITALOPRAM OXALATE 10 MG TABLET PO SCH (09:03)
[2019-04-19] MEDS: PREDNISONE 20 MG TABLET PO SCH (09:03)
[2019-04-19 13:58] VITALS: BP 149/62
== END 2019-04-19 16:32 | DRG 193 ==
LOC: ER 16:15 → EH 18:51 → 4N 22:16 → UNDODISIN 04-07 12:18 → ICU 04-08 03:54 → 5 04-12 16:42 → UNDODISIN 04-18 12:59
PROVIDERS: ADMIT Internal Medicine; ATTEND Internal Medicine
PROC: 06HM33Z Insertion of Infusion Device into Right Femoral Vein, Percutaneous Approach (ICD-10-PCS; principal; 2019-04-07)
PROC: B54BZZA Ultrasonography of Right Lower Extremity Veins, Guidance (ICD-10-PCS; 2019-04-07)
PROC: 5A1D70Z Performance of Urinary Filtration, Intermittent, Less than 6 Hours Per Day (ICD-10-PCS; 2019-04-08)
DX: J18.9 Pneumonia, unspecified organism (principal); J96.22 Acute and chronic respiratory failure with hypercapnia; G93.41 Metabolic encephalopathy; I50.32 Chronic diastolic (congestive) heart failure; N18.4 Chronic kidney disease, stage 4 (severe); I13.0 Hypertensive heart and chronic kidney disease with heart failure and stage 1 through stage 4 chronic kidney disease, or unspecified chronic kidney disease; Z68.42 Body mass index [BMI] 45.0-49.9, adult; B37.49 Other urogenital candidiasis; E87.2 Acidosis; E46 Unspecified protein-calorie malnutrition; D63.1 Anemia in chronic kidney disease; E11.22 Type 2 diabetes mellitus with diabetic chronic kidney disease; E78.5 Hyperlipidemia, unspecified; F32.9 Major depressive disorder, single episode, unspecified; E66.01 Morbid (severe) obesity due to excess calories; G47.33 Obstructive sleep apnea (adult) (pediatric); M19.90 Unspecified osteoarthritis, unspecified site; N25.0 Renal osteodystrophy; R91.1 Solitary pulmonary nodule; J45.909 Unspecified asthma, uncomplicated; R29.6 Repeated falls; I95.9 Hypotension, unspecified; E86.0 Dehydration; K52.9 Noninfective gastroenteritis and colitis, unspecified; E87.5 Hyperkalemia; R00.1 Bradycardia, unspecified; R68.0 Hypothermia, not associated with low environmental temperature; K59.00 Constipation, unspecified; I25.10 Atherosclerotic heart disease of native coronary artery without angina pectoris; Z99.81 Dependence on supplemental oxygen; Z79.899 Other long term (current) drug therapy; Z79.4 Long term (current) use of insulin; Z79.82 Long term (current) use of aspirin; Z83.3 Family history of diabetes mellitus; Z90.49 Acquired absence of other specified parts of digestive tract; Z87.891 Personal history of nicotine dependence; Z82.49 Family history of ischemic heart disease and other diseases of the circulatory system; Z79.51 Long term (current) use of inhaled steroids; Z91.19 Patient's noncompliance with other medical treatment and regimen; S00.83XA Contusion of other part of head, initial encounter; W19.XXXA Unspecified fall, initial encounter; Y92.009 Unspecified place in unspecified non-institutional (private) residence as the place of occurrence of the external cause
CPT/HCPCS: 36415; 36556; 51702; 71045; 71046; 71250; 76775; 76937; 80048; 80053; 80076; 81001; 82040; 82533; 82550; 82553; 82570; 82607; 82728; 82746; 82803; 82962; 83540; 83550; 83605; 83735; 83970; 84100; 84132; 84156; 84300; 84443; 84484; 85025; 85027; 85045; 85610; 85730; 86317; 86704; 87040; 87045; 87086; 87205; 87324; 87340; 87449; 87522; 89055; 93005; 93010; 93306; 94660; 96365; 99285; 99291; 99292; C1752; C1769; J0461; J0610; J0692; J0696; J1265; J1644; J1815; J1940; J2185; J2920; J2930; J3370; J3490; J7030; J7060; J7512; P9047; Q5105; Q5106; S0028

== ENCOUNTER 2019-05-10 16:27 | Inpatient (IN) | payer MEDICARE, MEDICAID ==
--- NOTE | 2019-05-10 17:35 | ER Document Report ---
ED Medical Screen (RME) - General Chief Complaint: High Blood Pressure Stated Complaint: HIGH BLOOD PRESSURE/AMS Time Seen by Provider: 05/10/19 17:31 Primary Care Provider: NATACHA CORMIER MD [Primary Care Provider] - Follow up as needed Mode of Arrival: Medic Information source: Emergency Med Personnel Notes: 63-year-old female presented to ED for elevated blood pressure altered mental status and is on O2 4 L nasal cannula. She came from the detention for elevated blood pressure of 187/95. According to the emergency personnel she did not receive any of her PRN blood pressure medicines at the detention. He states they did not get a proper report because the girl said she did not know her baseline. They said she is normally altered mental at the detention and is normally on 4 L O2.. She does have a history of CHF COPD high blood pressure renal failure morbid obesity pneumonia type 2 diabetes and a urinary tract infection and to the records from the EMS. I have greeted and performed a rapid initial assessment of this patient. A comprehensive ED assessment and evaluation of the patient, analysis of test results and completion of medical decision making process will be conducted by an additional ED providers. TRAVEL OUTSIDE OF THE [place] IN LAST 30 DAYS: No - Related Data Allergies/Adverse Reactions: No Known Allergies Allergy (Verified 05/10/19 17:31) Past Medical History - Past Medical History Cardiac Medical History: Reports: Hx Congestive Heart Failure, Hx Coronary Artery Disease, Hx Hypercholesterolemia, Hx Hypertension Denies: Hx Atrial Fibrillation, Hx DVT, Hx Heart Attack, Hx Peripheral Vascular Disease, Hx Pulmonary Embolism Pulmonary Medical History: Reports: Hx Asthma, Hx Respiratory Failure, Hx Sleep Apnea - Not using CPAP at home Denies: Hx Bronchitis, Hx COPD, Hx Pneumonia Neurological Medical History: Denies: Hx Cerebrovascular Accident, Hx Seizures Endocrine Medical History: Reports: Hx Diabetes Mellitus Type 2. Denies: Hx Diabetes Mellitus Type 1, Hx Hyperthyroidism, Hx Hypothyroidism Renal/ Medical History: Denies: Hx Peritoneal Dialysis GI Medical History: Denies: Hx Cirrhosis, Hx Crohn's Disease, Hx Hepatitis, Hx Ulcerative Colitis Musculoskeltal Medical History: Reports Hx Arthritis, Denies Hx Gout Skin Medical History: Denies Hx Eczema, Denies Hx Psoriasis Psychiatric Medical History: Reports: Hx Depression Infectious Medical History: Denies: Hx Hepatitis Past Surgical History: Reports: Hx Cholecystectomy, Hx Tonsillectomy, Hx Tubal Ligation, Other - Carpal tunnel - Immunizations Hx Diphtheria, Pertussis, Tetanus Vaccination: Yes Doctor's Discharge - Discharge Referrals: NATACHA CORMIER MD [Primary Care Provider] - Follow up as needed
--- NOTE | 2019-05-10 18:00 | ER Document Report ---
ED General - General Chief Complaint: High Blood Pressure Stated Complaint: HIGH BLOOD PRESSURE/AMS Time Seen by Provider: 05/10/19 17:31 Mode of Arrival: Medic Information source: Patient, Transfer Record, [facility] Records Notes: Patient is a 63-year-old female presenting to the emergency department chief complaint of elevated blood pressure. When speaking with the patient she is slightly confused is alert to self knows her birthdate and age. Simple questions patient is able to manage otherwise patient has difficulty with complex conversation. assisted and transfer notes are likewise minimal at best. TRAVEL OUTSIDE OF THE [place] IN LAST 30 DAYS: No - HPI Onset: This afternoon Onset/Duration: Persistent Quality of pain: No pain Severity: None Pain Level: Denies Associated symptoms: Slow to respond Exacerbated by: Denies Relieved by: Denies Similar symptoms previously: Yes Recently seen / treated by doctor: Yes - Related Data Allergies/Adverse Reactions: No Known Allergies Allergy (Verified 05/10/19 17:31) Past Medical History - General Information source: Emergency Med Personnel, [facility] Records - Social History Smoking Status: Unknown if Ever Smoked Frequency of alcohol use: None Drug Abuse: None Lives with: Care Home Family History: CAD, DM, Hypertension Patient has suicidal ideation: No Patient has homicidal ideation: No - Past Medical History Cardiac Medical History: Reports: Hx Congestive Heart Failure, Hx Coronary Artery Disease, Hx Hypercholesterolemia, Hx Hypertension Denies: Hx Atrial Fibrillation, Hx DVT, Hx Heart Attack, Hx Peripheral Vascular Disease, Hx Pulmonary Embolism Pulmonary Medical History: Reports: Hx Asthma, Hx Respiratory Failure, Hx Sleep Apnea - Not using CPAP at home Denies: Hx Bronchitis, Hx COPD, Hx Pneumonia Neurological Medical History: Denies: Hx Cerebrovascular Accident, Hx Seizures Endocrine Medical History: Reports: Hx Diabetes Mellitus Type 2. Denies: Hx Diabetes Mellitus Type 1, Hx Hyperthyroidism, Hx Hypothyroidism Renal/ Medical History: Denies: Hx Peritoneal Dialysis GI Medical History: Denies: Hx Cirrhosis, Hx Crohn's Disease, Hx Hepatitis, Hx Ulcerative Colitis Musculoskeletal Medical History: Reports Hx Arthritis, Denies Hx Gout Skin Medical History: Denies Hx Eczema, Denies Hx Psoriasis Psychiatric Medical History: Reports: Hx Depression Infectious Medical History: Denies: Hx Hepatitis Past Surgical History: Reports: Hx Cholecystectomy, Hx Tonsillectomy, Hx Tubal Ligation, Other - Carpal tunnel - Immunizations Hx Diphtheria, Pertussis, Tetanus Vaccination: Yes Review of Systems - Review of Systems Notes: REVIEW OF SYSTEMS: CONSTITUTIONAL : Denies fever, chills, or sweats. Denies recent illness. Per detention notes patient was initially sent over for hypertension on presentation patient's blood pressure is minimally elevated. EENT: Denies eye, ear, throat, or mouth pain or symptoms. Denies nasal or sinus congestion. CARDIOVASCULAR: Denies chest pain. RESPIRATORY: Denies cough, cold, or chest congestion. Denies shortness of breath, difficulty breathing, or wheezing. GASTROINTESTINAL: Denies abdominal pain. Denies nausea, vomiting, or diarrhea. Denies constipation. GENITOURINARY: Denies difficulty urinating, painful urination, burning, frequency, or blood in urine. MUSCULOSKELETAL: Denies neck or back pain or joint pain or swelling. SKIN: Denies rash or skin lesions. HEMATOLOGIC : Denies easy bruising or bleeding. NEUROLOGICAL: Denies altered mental status or loss of consciousness. Denies headache. Denies weakness or paralysis or loss of use of either side. Denies problems with gait or speech. Denies sensory or motor loss. PSYCHIATRIC: Denies suicidal or homicidal ideations 10 Systems are negative unless otherwise specified above -: Yes ROS unobtainable due to patient's medical condition Physical Exam - Vital signs Vitals: Temp Pulse Resp BP Pulse Ox 97.5 F 77 16 154/87 H 98 05/10/19 17:32 05/10/19 17:32 05/10/19 17:32 05/10/19 17:32 05/10/19 17:32 - Notes Notes: PHYSICAL EXAMINATION: GENERAL: Patient is somnolent however does arouse to noxious stimuli is able to answer question as to age and date of but immediately goes back to sleep HEAD: Atraumatic, normocephalic. EYES: Pupils equal round and reactive to light, extraocular movements intact, sclera anicteric, conjunctiva are normal. ENT: nares patent, oropharynx clear without exudates. Dry mucous membranes. NECK: Normal range of motion, supple without lymphadenopathy, no appreciable JVD LUNGS: Lungs clear to auscultation bilaterally and equal. No wheezes rales or rhonchi. Poor inspiratory expiratory effort however patient is maintaining oxygen saturation HEART: Regular rate and rhythm without murmurs ABDOMEN: Soft, morbid obesity, nontender, normal bowel sounds. No guarding, no rebound. No masses appreciated. EXTREMITIES: Full range of motion, no pitting or edema. No cyanosis. 2+ pulses x4 NEUROLOGICAL: No focal neurological deficits. Moves all extremities spontaneously and on command. Patient does have difficulty staying awake is alert to self knows name age and birthdate. Complex conversations are not manageable SKIN: Warm, Dry, and intact. Normal turgor, no rashes or lesions noted. Course - Re-evaluation Re-evalutation: 05/10/19 20:10 Patient was found to be hypoglycemic by nursing staff. They state that her fingerstick demonstrated BGL of 41 patient was given 1 amp of D50 glucose patient's mental status immediately improved. Currently waiting on remainder of labs for further evaluation. 05/11/19 02:02 Patient's mental status did improve after receiving dextrose. I have consulted the patient to the hospitalist for admission. Patient is being treated with potassium supplement 20 mEq IV for management of hypokalemia hypoglycemia was treated with dextrose, patient continues to have renal insufficiency and congestive heart failure which is being managed with Lasix IV the patient also has left-sided significant pleural effusion for which will be reevaluated through the hospitalist. - Vital Signs Vital signs: Temp Pulse Resp BP Pulse Ox 97.5 F 84 16 177/83 H 92 05/11/19 00:15 05/11/19 00:15 05/11/19 00:15 05/11/19 00:15 05/11/19 00:15 - Laboratory Result Diagrams: 05/10/19 17:45 05/10/19 17:45 Laboratory results interpreted by me: 05/10/19 05/10/19 05/10/19 17:45 17:45 17:45 RBC 2.93 L Hgb 9.3 L Hct 27.6 L RDW 15.5 H Whitfield % (Auto) 17.4 H Potassium 3.2 L Carbon Dioxide 37 H Anion Gap 4 L BUN 30 H Creatinine 1.85 H Est GFR ( Amer) 33 L Est GFR (MDRD) Non-Af 27 L Glucose 41 L Calcium 8.3 L Magnesium NT-Pro-B Natriuret Pep 88279 H Total Protein 5.1 L Albumin 2.7 L Prealbumin TSH Free T3 pg/mL Urine Protein Urine Glucose (UA) 05/10/19 05/10/19 05/10/19 17:45 17:45 19:30 RBC Hgb Hct RDW [place]field % (Auto) Potassium Carbon Dioxide Anion Gap BUN Creatinine Est GFR ( Amer) Est GFR (MDRD) Non-Af Glucose Calcium Magnesium 1.5 L NT-Pro-B Natriuret Pep Total Protein Albumin Prealbumin 15.6 L TSH 5.48 H Free T3 pg/mL 2.58 L Urine Protein >=500 H Urine Glucose (UA) 50 H - Diagnostic Test Radiology reviewed: Image reviewed, Reports reviewed - EKG Interpretation by Me EKG shows normal: Sinus rhythm Rate: Normal Rhythm: NSR When compared to previous EKG there are: Changes noted Additional EKG results interpreted by me: 05/10/19 20:09 EKG is interpreted by me demonstrates sinus rhythm rate of 71 bpm there is diffuse flattening of QTC. This is new compared to prior EKG of March 23, 2019 or patient had A. fib with rate of 60 bpm. Critical Care Note - Critical Care Note Total time excluding time spent on procedures (mins): 40 Comments: Please allow 40 minutes of critical care time exclusive of separately billable procedures for multiple re-evaluations medical management and consultation with hospitalist in regards to caring for this critically ill patient. Discharge - Discharge Clinical Impression: Renal insufficiency, Hypokalemia, Hypoglycemia, Pleural effusion CHF exacerbation Qualifiers: Heart failure type: unspecified Qualified Code(s): I50.9 - Heart failure, unspecified Condition: Fair Disposition: ADMITTED INPATIENT Admitting Provider: Roel (Hospitalist) Unit Admitted: [facility]
[2019-05-10 18:03] LABS: ABSOLUTE BASOPHILS # (AUTO) 0.1 10^3/uL (0.0-0.2); ABSOLUTE EOSINOPHILS # (AUTO) 0.1 10^3/uL (0.0-0.6); ABSOLUTE LYMPHOCYTES (AUTO) 1.3 10^3/uL (0.5-4.7); ABSOLUTE MONOCYTES (AUTO) 0.8 10^3/uL (0.1-1.4); ABSOLUTE NEUT (AUTO) 2.3 10^3/uL (1.7-8.2); EOSINOPHILS % (AUTO) 2.7 % (0-6); HEMATOCRIT 27.6 % (36.0-47.0); HEMOGLOBIN 9.3 g/dL (12.0-15.5); LYMPHOCYTES % (AUTO) 27.3 % (13-45); MEAN CORPUSCULAR HEMOGLOBIN 31.8 pg (27.0-33.4); MEAN CORPUSCULAR HGB CONC 33.7 g/dL (32.0-36.0); MEAN CORPUSCULAR VOLUME 94 fl (80-97); MONOCYTES % (AUTO) 17.4 % (3-13); PLATELET COUNT 312 10^3/uL (150-450); RED BLOOD COUNT 2.93 10^6/uL (3.72-5.28); RED CELL DISTRIBUTION WIDTH 15.5 % (11.5-14.0); SEGMENTED NEUTROPHILS % (AUTO) 50.6 % (42-78); TOTAL CELLS COUNTED % (AUTO) 100 %; WHITE BLOOD COUNT 4.6 10^3/uL (4.0-10.5)
[2019-05-10 18:21] LABS: ALBUMIN 2.7 g/dL (3.5-5.0); ALKALINE PHOSPHATASE 96 U/L (38-126); ASPARTATE AMINO TRANSFERASE 27 U/L (14-36); BILIRUBIN,DIRECT 0.1 mg/dL (0.0-0.4); BILIRUBIN,TOTAL 0.6 mg/dL (0.2-1.3); BLOOD UREA NITROGEN 30 mg/dL (7-20); CALCIUM 8.3 mg/dL (8.4-10.2); CHLORIDE 99 mmol/L (98-107); POTASSIUM 3.2 mmol/L (3.6-5.0); TOTAL PROTEIN 5.1 g/dL (6.3-8.2)
[2019-05-10 18:30] LABS: CARBON DIOXIDE 37 mmol/L (22-30)
[2019-05-10 18:34] LABS: ANION GAP 4 (5-19); GLUCOSE 41 mg/dL (75-110)
[2019-05-10] MEDS ORDERED: DEXTROSE 50%-WATER 25 GM/50 ML DISP.SYRIN IV ONE (18:36)
--- NOTE | 2019-05-10 18:36 | RADIOLOGY REPORT (SQ) ---
EXAM DESCRIPTION: CHEST SINGLE VIEW COMPLETED DATE/TIME: 05/10/2019 6:26 pm REASON FOR STUDY: ams COMPARISON: 04/28/2019. EXAM PARAMETERS: NUMBER OF VIEWS: One view. TECHNIQUE: Single frontal radiographic view of the chest acquired. RADIATION DOSE: NA LIMITATIONS: Limited study due to overlying soft tissue. FINDINGS: LUNGS AND PLEURA: Continued airspace disease in the left lower lobe. MEDIASTINUM AND HILAR STRUCTURES: No masses. Contour normal. HEART AND VASCULAR STRUCTURES: Cardiomegaly. BONES: No acute findings. HARDWARE: None in the chest. OTHER: No other significant finding. IMPRESSION: LIMITED STUDY. CARDIOMEGALY. CONTINUED AIRSPACE DISEASE IN THE LEFT LOWER LOBE. TECHNICAL DOCUMENTATION: JOB ID: [id number] 2010 [employer]- All Rights Reserved Reading location - IP/workstation name: [email or web address]
--- NOTE | 2019-05-10 19:33 | EKG REPORT ---
SEVERITY:- ABNORMAL ECG - SINUS RHYTHM PROBABLE INFERIOR INFARCT, AGE INDETERMINATE CONSIDER ANTERIOR INFARCT : Confirmed by: Sparkle Ingram 10-May-2019 19:33:07
[2019-05-10 19:45] LABS: APPEARANCE,URINE CLEAR; BILIRUBIN,URINE NEGATIVE (NEGATIVE); COLOR,URINE YELLOW; GLUCOSE, URINE 50 mg/dL (NEGATIVE); KETONES,URINE NEGATIVE (NEGATIVE); LEUKOCYTE ESTERASE,URINE NEGATIVE (NEGATIVE); NITRITE,URINE NEGATIVE (NEGATIVE); PROTEIN,URINE >=500 mg/dL (NEGATIVE); UROBILINOGEN,URINE NEGATIVE mg/dL (<2.0)
[2019-05-10 19:48] LABS: ADD MANUAL MICROSCOPIC YES; BACTERIA,URINE TRACE /HPF
[2019-05-10 19:49] LABS: AMORPHOUS SEDIMENT,UR TRACE; YEAST,URINE PRESENT
[2019-05-10] MEDS ORDERED: HYDRALAZINE HCL INJ/PF 20 MG/1 ML SDV IV ONE (22:01)
[2019-05-10] MEDS ORDERED: POTASSI CL 20 MEQ/50 ML RIDER 20 MEQ/50 ML RTUPB IV ONE (22:01)
[2019-05-10] MEDS ORDERED: FUROSEMIDE INJ/PF 40 MG/4 ML SDV IV ONE (22:01)
[2019-05-10] MEDS ORDERED: MAGNESIUM HYDROXIDE SUSP 30 ML UDCUP PO PRN (22:23)
[2019-05-10] MEDS ORDERED: DEXTROSE 40% GEL 15 GM TUBE PO PRN ×2 (22:23)
[2019-05-10] MEDS ORDERED: MAG HYDROX/AL HYDROX/SIMETH SUSP 30 ML UDCUP PO PRN (22:23)
[2019-05-10] MEDS ORDERED: GLUCAGON,HUMAN RECOMB 1 MG INJ IM PRN (22:23)
[2019-05-10] MEDS ORDERED: DEXTROSE 50%-WATER 25 GM/50 ML DISP.SYRIN IV PRN ×2 (22:23)
[2019-05-10] MEDS ORDERED: ACETAMINOPHEN 325 MG TABLET PO PRN (22:23)
[2019-05-10] MEDS ORDERED: INSULIN GLARGINE,HUM.REC.ANLOG 1,000 UNIT/10 ML VIAL (PYX) SUBCUT PRN (22:40)
[2019-05-10 22:52] LABS: PREALBUMIN 15.6 mg/dL (17.6-36.0)
[2019-05-10] MEDS ORDERED: INSULIN GLARGINE,HUM.REC.ANLOG 1,000 UNIT/10 ML VIAL SUBCUT ONE (23:00)
[2019-05-10 23:04] LABS: FREE T3 2.58 pg/mL (2.77-5.27); FREE T4 (FREE THYROXINE) 1.31 ng/dL (0.78-2.19)
[2019-05-10 23:18] LABS: THYROID STIMULATING HORMONE 5.48 uIU/mL (0.47-4.68)
[2019-05-11] MEDS ORDERED: HYDRALAZINE HCL INJ/PF 20 MG/1 ML SDV ONE (00:41)
[2019-05-11] MEDS ORDERED: HYDRALAZINE HCL INJ/PF 20 MG/1 ML SDV IV ONE ×2 (00:45→04:30)
[2019-05-11] MEDS ORDERED: DEXTROSE 50%-WATER 25 GM/50 ML DISP.SYRIN IV ONE (00:45)
[2019-05-11] MEDS: POTASSI CL 20 MEQ/50 ML RIDER 20 MEQ/50 ML RTUPB IV SCH ×3 (01:13→03:18)
[2019-05-11] MEDS: POTASSIUM CHLORIDE 10 MEQ TABLET.ER PO SCH ×3 (01:17→21:21)
[2019-05-11 05:16] LABS: ABSOLUTE BASOPHILS # (AUTO) 0.1 10^3/uL (0.0-0.2); ABSOLUTE EOSINOPHILS # (AUTO) 0.1 10^3/uL (0.0-0.6); ABSOLUTE LYMPHOCYTES (AUTO) 1.4 10^3/uL (0.5-4.7); ABSOLUTE MONOCYTES (AUTO) 0.8 10^3/uL (0.1-1.4); ABSOLUTE NEUT (AUTO) 2.4 10^3/uL (1.7-8.2); BASOPHILS % (AUTO) 1.9 % (0-2); HEMATOCRIT 26.6 % (36.0-47.0); HEMOGLOBIN 9.3 g/dL (12.0-15.5); LYMPHOCYTES % (AUTO) 28.8 % (13-45); MEAN CORPUSCULAR HEMOGLOBIN 32.4 pg (27.0-33.4); MEAN CORPUSCULAR HGB CONC 34.9 g/dL (32.0-36.0); MEAN CORPUSCULAR VOLUME 93 fl (80-97); MONOCYTES % (AUTO) 16.7 % (3-13); PLATELET COUNT 293 10^3/uL (150-450); RED BLOOD COUNT 2.86 10^6/uL (3.72-5.28); RED CELL DISTRIBUTION WIDTH 15.3 % (11.5-14.0); SEGMENTED NEUTROPHILS % (AUTO) 49.6 % (42-78); TOTAL CELLS COUNTED % (AUTO) 100 %; WHITE BLOOD COUNT 4.8 10^3/uL (4.0-10.5)
[2019-05-11 05:49] LABS: BLOOD UREA NITROGEN 28 mg/dL (7-20); CALCIUM 8.3 mg/dL (8.4-10.2); CARBON DIOXIDE 36 mmol/L (22-30); CHLORIDE 100 mmol/L (98-107); GLUCOSE 76 mg/dL (75-110); POTASSIUM 4.1 mmol/L (3.6-5.0)
[2019-05-11 05:57] LABS: ANION GAP 2 (5-19)
[2019-05-11 05:58] LABS: ABSOLUTE RETICS # 0.038 10^6/uL (0.028-0.122); RETICULOCYTE COUNT (AUTO) 1.34 % (0.66-2.85)
[2019-05-11] MEDS: HEPARIN SOD (PORCINE) 5,000 UNIT/ML 1 ML VIAL SUBCUT SCH ×3 (06:01→21:21)
--- NOTE | 2019-05-11 06:02 | PDOC H&P ---
History of Present Illness Admission Date/PCP: 05/10/19 22:41 NATACHA CORMIER MD Patient complains of: Confusion and hypertensive urgency History of Present Illness: FINA HERNÁNDEZ is a 63 year old female long-term resident, with a complex past medical history of morbid obesity, obstructive sleep apnea, oxygen dependent COPD, insulin-dependent diabetes, CKD 3, hypertension, diastolic heart failure with recurrent left-sided pleural effusion and anemia of chronic disease. In the emergency department she is found to have confusion, hypoglycemia at 41, hypertensive urgency of 180/90, pulmonary vascular congestion with a BNP of 16,000, large pleural effusion and proteinuria. Patient is a poor historian she is unable to provide significant history bel ieving she is living at home. However she denies pain. Past Medical History Cardiac Medical History: Reports: Congestive Heart Failure, Coronary Artery Disease, Hyperlipidema, Hypertension Denies: Atrial Fibrillation, DVT, Myocardial Infarction, Peripheral Vascular Disease, Pulmonary Embolism Pulmonary Medical History: Reports: Asthma, Respiratory Failure, Sleep Apnea - Not using CPAP at home Denies: Bronchitis, Chronic Obstructive Pulmonary Disease (COPD), Pneumonia Neurological Medical History: Denies: Seizures Endocrine Medical History: Reports: Diabetes Mellitus Type 2, Obesity Denies: Diabetes Mellitus Type 1, Hyperthyroidism, Hypothyroidism Renal/ Medical History: Reports: Chronic Kidney Disease GI Medical History: Denies: Cirrhosis, Crohn's Disease, Hepatitis, Ulcerative Colitis Musculoskeltal Medical History: Reports: Arthritis Denies: Gout Skin Medical History: Denies: Eczema, Psoriasis Psychiatric Medical History: Reports: Depression Hematology: Reports: Anemia Denies: Bleeding Tendencies Past Surgical History Past Surgical History: Reports: Cholecystectomy, Tonsillectomy, Tubal Ligation, Other - Carpal tunnel Social History Information Source: Emergency Med Personnel, [facility] Records Lives with: Jail Smoking Status: Unknown if Ever Smoked Frequency of Alcohol Use: None Hx Recreational Drug Use: No Drugs: None Hx Prescription Drug Abuse: No - Advance Directive Resuscitation Status: Do Not Intubate - Patient verifies her CODE STATUS is DO NOT INTUBATE Family History Family History: CAD, DM, Hypertension Parental Family History Reviewed: Yes Children Family History Reviewed: Yes Sibling(s) Family History Reviewed.: Yes Medication/Allergy Home Medications: Aspirin [Adult Low Dose Aspirin EC] 81 mg PO DAILY 01/18/19 Escitalopram Oxalate [Lexapro] 20 mg PO DAILY 01/18/19 Insulin Glargine,Hum.rec.anlog [Lantus Insulin 100 Unit/1 ml 10 ml] 15 units SQ QAM 01/18/19 Mirabegron [Myrbetriq] 50 mg PO DAILY 01/18/19 Acetaminophen [Tylenol 325 mg Tablet] 650 mg PO Q6HP PRN tablet 04/14/19 Amlodipine Besylate [Norvasc 10 mg Tablet] 10 mg PO QHS #30 tablet 04/14/19 Calcitriol [Rocaltrol 0.25 mcg Capsule] 0.25 mcg PO MoWeFr@1000 #12 capsule 04/14/19 Carvedilol [Coreg 3.125 mg Tablet] 3.125 mg PO Q12 #60 tablet 04/14/19 Famotidine [Pepcid 20 mg Tablet] 20 mg PO DAILY #30 tablet 04/14/19 Furosemide [Lasix 40 mg Tablet] 40 mg PO BID #60 tablet 04/14/19 Allergies/Adverse Reactions: No Known Allergies Allergy (Verified 05/10/19 17:31) Review of Systems ROS unobtainable: Due to mental status Physical Exam Vital Signs: Temp Pulse Resp BP Pulse Ox 97.7 F 80 13 173/78 H 100 05/11/19 03:47 05/11/19 03:47 05/11/19 03:47 05/11/19 03:47 05/11/19 03:47 Intake & Output 05/09/19 05/10/19 05/11/19 11:59 11:59 11:59 Intake Total 50 Balance 50 Weight 123.9 kg General appearance: PRESENT: cooperative, disheveled, mild distress, well-developed Head exam: PRESENT: normocephalic. ABSENT: atraumatic - 8 x 10 cm, ecchymosis to the left temporal side with minimal subcu conjunctival hemorrhage Eye exam: PRESENT: conjunctiva pink, EOMI, PERRLA. ABSENT: scleral icterus Ear exam: PRESENT: normal external ear exam Mouth exam: PRESENT: moist, tongue midline Neck exam: ABSENT: carotid bruit, JVD, lymphadenopathy, thyromegaly Respiratory exam: PRESENT: crackles, decreased breath sounds, prolonged expiratory phas, symmetrical, tachypnea Cardiovascular exam: PRESENT: RRR. ABSENT: diastolic murmur, rubs, systolic murmur Pulses: PRESENT: normal dorsalis pedis pul Vascular exam: PRESENT: normal capillary refill GI/Abdominal exam: PRESENT: normal bowel sounds, soft. ABSENT: distended, guarding, mass, organolmegaly, rebound, tenderness Rectal exam: PRESENT: deferred Extremities exam: PRESENT: full ROM, +1 edema. ABSENT: clubbing, tenderness Neurological exam: PRESENT: alert, awake, oriented to person, oriented to place, oriented to time, oriented to situation, CN II-XII grossly intact. ABSENT: motor sensory deficit Psychiatric exam: PRESENT: appropriate affect, normal mood. ABSENT: homicidal ideation, suicidal ideation Skin exam: PRESENT: abrasion, erythema - Moist, erythemic malodorous caseous discharge in the skin folds, warm. ABSENT: urticaria, vesicles Results Laboratory Results: 05/11/19 04:52 05/10/19 05/10/19 05/10/19 17:45 17:45 17:45 WBC 4.6 RBC 2.93 L Hgb 9.3 L Hct 27.6 L MCV 94 MCH 31.8 MCHC 33.7 RDW 15.5 H Plt Count 312 Seg Neutrophils % 50.6 Sodium 139.8 Potassium 3.2 L Chloride 99 Carbon Dioxide 37 H Anion Gap 4 L BUN 30 H Creatinine 1.85 H Est GFR ( Amer) 33 L Glucose 41 L Calcium 8.3 L Magnesium 1.5 L Total Bilirubin 0.6 AST 27 Alkaline Phosphatase 96 Total Protein 5.1 L Albumin 2.7 L Prealbumin 15.6 L TSH Free T4 Free T3 pg/mL Urine Color Urine Appearance Urine pH Ur Specific [place] Urine Protein Urine Glucose (UA) Urine Ketones Urine Blood Urine Nitrite Ur Leukocyte Esterase 05/10/19 05/10/19 05/11/19 17:45 19:30 04:52 WBC 4.8 RBC 2.86 L Hgb 9.3 L Hct 26.6 L MCV 93 MCH 32.4 MCHC 34.9 RDW 15.3 H Plt Count 293 Seg Neutrophils % 49.6 Sodium Potassium Chloride Carbon Dioxide Anion Gap BUN Creatinine Est GFR ( Amer) Glucose Calcium Magnesium Total Bilirubin AST Alkaline Phosphatase Total Protein Albumin Prealbumin TSH 5.48 H Free T4 1.31 Free T3 pg/mL 2.58 L Urine Color YELLOW Urine Appearance CLEAR Urine pH 7.0 Ur Specific [place] 1.010 Urine Protein >=500 H Urine Glucose (UA) 50 H Urine Ketones NEGATIVE Urine Blood NEGATIVE Urine Nitrite NEGATIVE Ur Leukocyte Esterase NEGATIVE 05/10/19 17:45 NT-Pro-B Natriuret Pep 21471 H Impressions: Chest X-Ray 05/10/19 18:12 IMPRESSION: LIMITED STUDY. CARDIOMEGALY. CONTINUED AIRSPACE DISEASE IN THE LEFT LOWER LOBE. Assessment and Plan - Diagnosis (1) Candidiasis of breast Is this a current diagnosis for this admission?: Yes Plan: Diflucan x3 days (2) Malnutrition Is this a current diagnosis for this admission?: Yes Plan: Complicated by poor p.o. intake and to renal proteinuria. Trial Beneprotein, optimize glycemic state with Humalog (3) Acute exacerbation of congestive heart failure Qualifiers: Heart failure type: unspecified Qualified Code(s): I50.9 - Heart failure, unspecified Is this a current diagnosis for this admission?: Yes Plan: Optimize pressure and volume status. (4) Hypoglycemia Is this a current diagnosis for this admission?: Yes Plan: Unclear p.o. intake, reduce Lantus from 15 units to 5 units nightly and Accu- Cheks with meals (5) Hypokalemia Is this a current diagnosis for this admission?: Yes Plan: Replete and follow-up magnesium (6) Pleural effusion Is this a current diagnosis for this admission?: Yes Plan: Likely secondary to diastolic heart failure, prior thoracentesis unremarkable (7) Renal insufficiency Is this a current diagnosis for this admission?: Yes Plan: Avoid nephrotoxic meds and doses follow-up chemistry (8) Anemia, chronic disease Is this a current diagnosis for this admission?: Yes Plan: Likely secondary to chronic disease, follow-up anemia labs (9) Diabetes mellitus type 2 in obese Is this a current diagnosis for this admission?: Yes Plan: Optimize Humalog sliding scale given massive glucosuria (10) Hypertensive urgency Is this a current diagnosis for this admission?: Yes Plan: REGAN inhibitor and hydralazine (11) Morbid obesity with BMI of 45.0-49.9, adult Is this a current diagnosis for this admission?: Yes Plan: Follow-up TSH, (12) NILO (obstructive sleep apnea) Is this a current diagnosis for this admission?: Yes Plan: CPAP while asleep - Time Time Spent with patient: 25-34 minutes - Inpatient Certification Medical Necessity: Need Close Monitoring Due to Risk of Patient Decompensation
[2019-05-11 06:31] LABS: IRON(TIBC) 29.2 ug/dL (37-170)
[2019-05-11 07:38] LABS: FOLATE 7.04 ng/mL (>2.76)
[2019-05-11] MEDS: FUROSEMIDE INJ/PF 40 MG/4 ML SDV IV SCH (09:49)
[2019-05-11] MEDS: INSULIN LISPRO 100 UNIT/ML 3 ML VIAL SUBCUT SCH ×3 (09:50→17:34)
[2019-05-11] MEDS: DOCUSATE SODIUM 100 MG CAPSULE PO SCH (11:13)
[2019-05-11] MEDS: HYDRALAZINE HCL INJ/PF 20 MG/1 ML SDV IV PRN (18:12)
--- NOTE | 2019-05-11 19:28 | PDOC PROGRESS REPORT ---
Subjective Progress Note for:: 05/11/19 Subjective:: The patient was seen on afternoon rounds. She was found resting in bed, comfortably, on supplemental oxygen via nasal cannula. She reports that she is feeling well today. She is little bit frustrated by her continued hypertension. She states that at the time of her transfer to from SNF to the ED she was feeling well and would not have sought care except for the fact that nursing personnel at the facility were concerned about her uncontrolled blood pressures. She further denies fever, chest pain, palpitations, dyspnea, abdominal pain, nausea vomiting and diarrhea. She reports a good appetite. She has no questions or concerns at this time. Reason For Visit: LEFT LUNG NODULE EFFUSION CKD4 DM HTN URGENCY Physical Exam Vital Signs: Temp Pulse Resp BP Pulse Ox 98.1 F 94 18 188/81 H 95 05/11/19 14:59 05/11/19 17:46 05/11/19 14:59 05/11/19 18:00 05/11/19 14:59 Intake & Output 05/10/19 05/11/19 05/12/19 06:59 06:59 06:59 Intake Total 340 1020 Output Total 1100 1100 Balance -760 -80 Weight 123.9 kg General appearance: PRESENT: no acute distress, cooperative, morbidly obese, well-developed, well-nourished Head exam: PRESENT: atraumatic, normocephalic Eye exam: PRESENT: conjunctiva pink, EOMI, PERRLA. ABSENT: scleral icterus Ear exam: PRESENT: normal external ear exam Mouth exam: PRESENT: moist, tongue midline Neck exam: ABSENT: carotid bruit, JVD, lymphadenopathy, thyromegaly Respiratory exam: PRESENT: clear to auscultation vadim, symmetrical, unlabored, other - Supplemental oxygen via nasal cannula. ABSENT: rales, rhonchi, wheezes Cardiovascular exam: PRESENT: RRR, +S1, +S2. ABSENT: diastolic murmur, rubs, systolic murmur Pulses: PRESENT: normal dorsalis pedis pul Vascular exam: PRESENT: normal capillary refill GI/Abdominal exam: PRESENT: normal bowel sounds, soft. ABSENT: distended, guarding, mass, organolmegaly, rebound, tenderness Rectal exam: PRESENT: deferred Gentrourinary exam: PRESENT: indwelling catheter Extremities exam: PRESENT: full ROM. ABSENT: calf tenderness, clubbing, pedal edema Neurological exam: PRESENT: alert, awake, oriented to person, oriented to place, oriented to time, oriented to situation, CN II-XII grossly intact. ABSENT: motor sensory deficit Psychiatric exam: PRESENT: appropriate affect, normal mood. ABSENT: homicidal ideation, suicidal ideation Skin exam: PRESENT: dry, intact, warm. ABSENT: cyanosis, rash Results Laboratory Results: 05/11/19 04:52 05/11/19 04:52 05/10/19 05/10/19 05/10/19 17:45 17:45 19:30 WBC RBC Hgb Hct MCV MCH MCHC RDW Plt Count Seg Neutrophils % Retic Count (auto) Sodium Potassium Chloride Carbon Dioxide Anion Gap BUN Creatinine Est GFR ( Amer) Glucose Calcium Magnesium 1.5 L Iron TIBC % Saturation Ferritin Prealbumin 15.6 L Vitamin B12 Folate TSH 5.48 H Free T4 1.31 Free T3 pg/mL 2.58 L Urine Color YELLOW Urine Appearance CLEAR Urine pH 7.0 Ur Specific [place] 1.010 Urine Protein >=500 H Urine Glucose (UA) 50 H Urine Ketones NEGATIVE Urine Blood NEGATIVE Urine Nitrite NEGATIVE Ur Leukocyte Esterase NEGATIVE 05/11/19 05/11/19 05/11/19 04:52 04:52 04:52 WBC 4.8 RBC 2.86 L Hgb 9.3 L Hct 26.6 L MCV 93 MCH 32.4 MCHC 34.9 RDW 15.3 H Plt Count 293 Seg Neutrophils % 49.6 Retic Count (auto) 1.34 Sodium 138.2 Potassium 4.1 Chloride 100 Carbon Dioxide 36 H Anion Gap 2 L BUN 28 H Creatinine 1.70 H Est GFR ( Amer) 36 L Glucose 76 Calcium 8.3 L Magnesium Iron TIBC % Saturation Ferritin Prealbumin Vitamin B12 Folate TSH Free T4 Free T3 pg/mL Urine Color Urine Appearance Urine pH Ur Specific [place] Urine Protein Urine Glucose (UA) Urine Ketones Urine Blood Urine Nitrite Ur Leukocyte Esterase 05/11/19 04:52 WBC RBC Hgb Hct MCV MCH MCHC RDW Plt Count Seg Neutrophils % Retic Count (auto) Sodium Potassium Chloride Carbon Dioxide Anion Gap BUN Creatinine Est GFR ( Amer) Glucose Calcium Magnesium Iron 29.2 L TIBC 173 L % Saturation 17 Ferritin 593.00 H Prealbumin Vitamin B12 342.0 Folate 7.04 TSH Free T4 Free T3 pg/mL Urine Color Urine Appearance Urine pH Ur Specific [place] Urine Protein Urine Glucose (UA) Urine Ketones Urine Blood Urine Nitrite Ur Leukocyte Esterase 05/10/19 17:45 NT-Pro-B Natriuret Pep [id number] H Impressions: Chest X-Ray 05/10/19 18:12 IMPRESSION: LIMITED STUDY. CARDIOMEGALY. CONTINUED AIRSPACE DISEASE IN THE LEFT LOWER LOBE. Assessment and Plan - Diagnosis (1) Hypertensive urgency Is this a current diagnosis for this admission?: Yes Plan: Have resumed home dose clonidine and lisinopril. Continue IV hydralazine as needed for blood pressure control. Continue to diurese with furosemide due to acute CHF exacerbation. Cardiac diet. (2) Acute exacerbation of congestive heart failure Qualifiers: Heart failure type: unspecified Qualified Code(s): I50.9 - Heart failure, unspecified Is this a current diagnosis for this admission?: Yes Plan: Improved. Patient is admitted to [facility] on continuous cardiac telemetry. We will continue her home antihypertensive regimen of lisinopril and clonidine. Diurese with IV furosemide. Strict I's and O's. Cardiac diet. (3) Candidiasis of breast Is this a current diagnosis for this admission?: Yes Plan: Diflucan x3 days (4) Hypoglycemia Is this a current diagnosis for this admission?: Yes Plan: Likely secondary to insulin use; hemoglobin A1c 4.9. Have discontinued Lantus. We will continue Accu-Cheks with sliding scale insulin. Hypoglycemia protocol in place. (5) Hypokalemia Is this a current diagnosis for this admission?: Yes Plan: Replete Monitor chemistries. (6) Malnutrition Is this a current diagnosis for this admission?: Yes Plan: Complicated by poor p.o. intake and to renal proteinuria. Trial Beneprotein Registered dietitian and patient educator consulted. (7) Pleural effusion Is this a current diagnosis for this admission?: Yes Plan: Likely secondary to diastolic heart failure, prior thoracentesis unremarkable Management of CHF as above. Continue supplemental oxygen as needed. Encourage pulmonary toilet. (8) Renal insufficiency Is this a current diagnosis for this admission?: Yes (9) Anemia, chronic disease Is this a current diagnosis for this admission?: Yes Plan: Secondary to chronic disease Hemoglobin is stable. No evidence of active bleeding. Monitor with periodic CBC. (10) Diabetes mellitus type 2 in obese Is this a current diagnosis for this admission?: Yes Plan: A1c 4.9%. Likely no longer requiring insulin. Have placed Lantus on hold secondary to prolonged hypoglycemia. Continue Accu-Cheks before meals and at bedtime with sliding scale insulin. Hypoglycemia protocol in place. Consistent carb diet. Registered dietitian and patient educator consulted. (11) Morbid obesity with BMI of 45.0-49.9, adult Is this a current diagnosis for this admission?: Yes Plan: BMI 46.9. Dietary discretion advised. Cardiac/consistent carb diet. Registered dietitian is consulted. (12) NILO (obstructive sleep apnea) Is this a current diagnosis for this admission?: Yes Plan: CPAP while asleep - Time Time Spent with patient: 25-34 minutes Medications reviewed and adjusted accordingly: Yes Anticipated discharge: SNF Within: within 24 hours
[2019-05-11] MEDS: LISINOPRIL 10 MG TABLET PO SCH (21:21)
[2019-05-11] MEDS: CLONIDINE HCL 0.1 MG TABLET PO SCH (21:21)
[2019-05-11] MEDS ORDERED: INSULIN GLARGINE,HUM.REC.ANLOG 1,000 UNIT/10 ML VIAL SUBCUT SCH ×2 (22:00)
[2019-05-11] MEDS ORDERED: (PENDING PHARMACY ID) (Lisinopril [Zestril] 40 MG) PO SCH (22:00)
[2019-05-12] MEDS: HYDRALAZINE HCL INJ/PF 20 MG/1 ML SDV IV PRN ×2 (05:25→18:28)
[2019-05-12] MEDS: HEPARIN SOD (PORCINE) 5,000 UNIT/ML 1 ML VIAL SUBCUT SCH ×3 (05:26→21:42)
[2019-05-12 05:52] LABS: BLOOD UREA NITROGEN 25 mg/dL (7-20); CALCIUM 8.1 mg/dL (8.4-10.2); CHLORIDE 101 mmol/L (98-107); GLUCOSE 81 mg/dL (75-110); POTASSIUM 3.9 mmol/L (3.6-5.0)
[2019-05-12 05:58] LABS: CARBON DIOXIDE 36 mmol/L (22-30)
[2019-05-12 06:01] LABS: ANION GAP 1 (5-19)
[2019-05-12] MEDS: DOCUSATE SODIUM 100 MG CAPSULE PO SCH (09:32)
[2019-05-12] MEDS: POTASSIUM CHLORIDE 10 MEQ TABLET.ER PO SCH ×2 (09:33→21:41)
[2019-05-12] MEDS: METOPROLOL SUCCINATE 25 MG TAB.SR.24H PO SCH ×2 (09:33→21:41)
[2019-05-12] MEDS: FUROSEMIDE INJ/PF 40 MG/4 ML SDV IV SCH (09:33)
[2019-05-12] MEDS: CLONIDINE HCL 0.1 MG TABLET PO SCH ×2 (09:33→21:41)
[2019-05-12] MEDS ORDERED: AMLODIPINE BESYLATE 5 MG TABLET PO SCH (10:00)
[2019-05-12] MEDS ORDERED: (PENDING PHARMACY ID) (Lisinopril [Zestril] 40 MG) PO SCH (10:00)
[2019-05-12] MEDS ORDERED: AMLODIPINE BESYLATE 5 MG TABLET PO ONE (18:12)
[2019-05-12] MEDS ORDERED: LOPERAMIDE HCL 2 MG CAPSULE PO PRN (18:13)
--- NOTE | 2019-05-12 18:26 | PDOC PROGRESS REPORT ---
Subjective Progress Note for:: 05/12/19 Subjective:: The patient was seen on afternoon rounds. She was found resting in bed, comfortably, on supplemental oxygen via nasal cannula. She reports that she is feeling well today. She has no questions or concerns today. She further denies fever, chest pain, palpitations, dyspnea, abdominal pain, nausea vomiting and diarrhea. She reports a good appetite. She has no questions or concerns at this time. Reason For Visit: LEFT LUNG NODULE EFFUSION CKD4 DM HTN URGENCY Physical Exam Vital Signs: Temp Pulse Resp BP Pulse Ox 98.1 F 92 16 183/88 H 93 05/12/19 15:54 05/12/19 15:54 05/12/19 15:54 05/12/19 15:54 05/12/19 15:54 Intake & Output 05/11/19 05/12/19 05/13/19 06:59 06:59 06:59 Intake Total 340 1620 Output Total 1100 2150 Balance -760 -530 Weight 123.9 kg 119.8 kg 119.8 kg General appearance: PRESENT: no acute distress, cooperative, morbidly obese, well-developed, well-nourished Head exam: PRESENT: atraumatic, normocephalic Eye exam: PRESENT: conjunctiva pink, EOMI, PERRLA. ABSENT: scleral icterus Mouth exam: PRESENT: moist, tongue midline Respiratory exam: PRESENT: clear to auscultation vadim, symmetrical, unlabored, other - Supplemental oxygen via nasal cannula. ABSENT: rales, rhonchi, wheezes Cardiovascular exam: PRESENT: RRR. ABSENT: diastolic murmur, rubs, systolic murmur Pulses: PRESENT: normal dorsalis pedis pul Vascular exam: PRESENT: normal capillary refill GI/Abdominal exam: PRESENT: normal bowel sounds, soft. ABSENT: distended, guarding, mass, organolmegaly, rebound, tenderness Rectal exam: PRESENT: deferred Gentrourinary exam: PRESENT: indwelling catheter Extremities exam: PRESENT: full ROM. ABSENT: calf tenderness, clubbing, pedal edema Neurological exam: PRESENT: alert, awake, oriented to person, oriented to place, oriented to time, oriented to situation, CN II-XII grossly intact, other - intermittent confusion; patient's baseline. ABSENT: motor sensory deficit Psychiatric exam: PRESENT: appropriate affect, normal mood. ABSENT: homicidal ideation, suicidal ideation Skin exam: PRESENT: dry, intact, warm. ABSENT: cyanosis, rash Results Laboratory Results: 05/11/19 04:52 05/12/19 04:54 05/12/19 04:54 Sodium 137.9 Potassium 3.9 Chloride 101 Carbon Dioxide 36 H Anion Gap 1 L BUN 25 H Creatinine 1.69 H Est GFR ( Amer) 37 L Glucose 81 Calcium 8.1 L 05/10/19 17:45 NT-Pro-B Natriuret Pep [id number] H Impressions: Chest X-Ray 05/10/19 18:12 IMPRESSION: LIMITED STUDY. CARDIOMEGALY. CONTINUED AIRSPACE DISEASE IN THE LEFT LOWER LOBE. Assessment and Plan - Diagnosis (1) Hypertensive urgency Is this a current diagnosis for this admission?: Yes Plan: Improved. Have resumed home dose clonidine and lisinopril. Start Amlodipine and Toprol XL Consider increasing clonidine to q8 hr. Continue IV hydralazine as needed for blood pressure control. Continue to diurese with furosemide due to acute CHF exacerbation. Cardiac diet. (2) Acute exacerbation of congestive heart failure Qualifiers: Heart failure type: unspecified Qualified Code(s): I50.9 - Heart failure, unspecified Is this a current diagnosis for this admission?: Yes Plan: Improved. Patient is admitted to [facility] on continuous cardiac telemetry. We will continue her home antihypertensive regimen of lisinopril and clonidine. Have added Toprol. Diurese with IV furosemide. Strict I&O's. Cardiac diet. (3) Candidiasis of breast Is this a current diagnosis for this admission?: Yes Plan: Diflucan x3 days (4) Hypoglycemia Is this a current diagnosis for this admission?: Yes Plan: Likely secondary to insulin use; hemoglobin A1c 4.9. Have discontinued Lantus and Humalog. Hypoglycemia protocol in place. Consistent Carb diet. (5) Hypokalemia Is this a current diagnosis for this admission?: Yes Plan: Replete Monitor chemistries. (6) Malnutrition Is this a current diagnosis for this admission?: Yes Plan: Complicated by poor p.o. intake and to renal proteinuria. Trial Beneprotein Registered dietitian and patient educator consulted. (7) Pleural effusion Is this a current diagnosis for this admission?: Yes Plan: Likely secondary to diastolic heart failure, prior thoracentesis unremarkable Management of CHF as above. Continue supplemental oxygen as needed. Encourage pulmonary toilet. (8) Renal insufficiency Is this a current diagnosis for this admission?: Yes Plan: At baseline. Avoid nephrotoxic meds and doses follow-up chemistry (9) Anemia, chronic disease Is this a current diagnosis for this admission?: Yes Plan: Secondary to chronic disease Hemoglobin is stable. No evidence of active bleeding. Monitor with periodic CBC. (10) Diabetes mellitus type 2 in obese Is this a current diagnosis for this admission?: Yes Plan: A1c 4.9%. Likely no longer requiring insulin. Have placed Lantus on hold secondary to prolonged hypoglycemia. Hypoglycemia protocol in place. Consistent carb diet. Registered dietitian and patient educator consulted. (11) Morbid obesity with BMI of 45.0-49.9, adult Is this a current diagnosis for this admission?: Yes Plan: BMI 46.9. Dietary discretion advised. Cardiac/consistent carb diet. Registered dietitian is consulted. (12) NILO (obstructive sleep apnea) Is this a current diagnosis for this admission?: Yes Plan: CPAP while asleep - Time Time Spent with patient: 25-34 minutes Medications reviewed and adjusted accordingly: Yes Anticipated discharge: SNF - LTC Within: within 48 hours
[2019-05-12] MEDS: LISINOPRIL 10 MG TABLET PO SCH (21:41)
[2019-05-13] MEDS: LISINOPRIL 10 MG TABLET PO SCH (00:28)
[2019-05-13] MEDS: CLONIDINE HCL 0.1 MG TABLET PO SCH (00:28)
[2019-05-13] MEDS: POTASSIUM CHLORIDE 10 MEQ TABLET.ER PO SCH ×2 (00:28→09:24)
[2019-05-13] MEDS: METOPROLOL SUCCINATE 25 MG TAB.SR.24H PO SCH ×2 (00:29→09:24)
[2019-05-13] MEDS: HEPARIN SOD (PORCINE) 5,000 UNIT/ML 1 ML VIAL SUBCUT SCH ×2 (05:22→17:05)
[2019-05-13] MEDS: DOCUSATE SODIUM 100 MG CAPSULE PO SCH (09:19)
[2019-05-13] MEDS: FUROSEMIDE INJ/PF 40 MG/4 ML SDV IV SCH (09:24)
[2019-05-13] MEDS: LACTOBACILLUS ACIDOPHILUS 250 MG TAB PO SCH ×2 (09:24→17:06)
[2019-05-13 09:45] LABS: ANION GAP 6 (5-19); BLOOD UREA NITROGEN 22 mg/dL (7-20); CALCIUM 8.6 mg/dL (8.4-10.2); CARBON DIOXIDE 34 mmol/L (22-30); CHLORIDE 99 mmol/L (98-107); GLUCOSE 97 mg/dL (75-110); POTASSIUM 3.6 mmol/L (3.6-5.0)
[2019-05-13] MEDS ORDERED: AMLODIPINE BESYLATE 10 MG TABLET PO SCH (10:00)
[2019-05-13] MEDS ORDERED: CLONIDINE 0.2 MG/24 HR PATCH.TDWK TD SCH (10:00)
[2019-05-13] MEDS ORDERED: AMLODIPINE BESYLATE 5 MG TABLET PO SCH (10:00)
--- NOTE | 2019-05-13 15:42 | PDOC TRANSFER SUMMARY ---
Impression - Admit/DC Date/PCP Admission Date/Primary Care Provider: 05/10/19 22:41 NATACHA CORMIER MD Discharge Date: 05/13/19 - Discharge Diagnosis (1) Hypertensive urgency Is this a current diagnosis for this admission?: Yes (2) Acute exacerbation of congestive heart failure Is this a current diagnosis for this admission?: Yes (3) Candidiasis of breast Is this a current diagnosis for this admission?: Yes (4) Hypoglycemia Is this a current diagnosis for this admission?: Yes (5) Hypokalemia Is this a current diagnosis for this admission?: Yes (6) Malnutrition Is this a current diagnosis for this admission?: Yes (7) Pleural effusion Is this a current diagnosis for this admission?: Yes (8) Renal insufficiency Is this a current diagnosis for this admission?: Yes (9) Anemia, chronic disease Is this a current diagnosis for this admission?: Yes (10) Diabetes mellitus type 2 in obese Is this a current diagnosis for this admission?: Yes (11) Morbid obesity with BMI of 45.0-49.9, adult Is this a current diagnosis for this admission?: Yes (12) NILO (obstructive sleep apnea) Is this a current diagnosis for this admission?: Yes - Additional Information Resuscitation Status: Do Not Intubate - Patient verifies her CODE STATUS is DO NOT INTUBATE Discharge Diet: Cardiac, Diabetic Discharge Activity: Activity As Tolerated, Balance Activity w/Rest, Slowly Increase Activity, Supervised Activity Referrals: NATACHA CORMIER MD [Primary Care Provider] - Follow up as needed Prescriptions: Clonidine [Catapres-Tts 2 (0.2 mg/24 Hr) Transderm Ptch] 1 each TD Fr@10 #4 patch.tdwk Amlodipine Besylate [Norvasc 10 mg Tablet] 10 mg PO DAILY #30 tablet Metoprolol Succinate [Toprol Xl 25 mg Tab.sr] 25 mg PO DAILY #30 tab.sr.24h Home Medications: Lisinopril [Zestril] 40 mg PO DAILY 05/11/19 Ondansetron [Zofran Odt 4 mg Tablet] 4 mg PO Q8HP PRN 05/11/19 Potassium Chloride [Klor-Con 10 Meq Tablet ER] 20 meq PO DAILY 05/11/19 Amlodipine Besylate [Norvasc 10 mg Tablet] 10 mg PO DAILY #30 tablet 05/13/19 Clonidine [Catapres-Tts 2 (0.2 mg/24 Hr) Transderm [facility]] 1 each TD Fr@10 #4 patch.tdwk 05/13/19 Metoprolol Succinate [Toprol Xl 25 mg Tab.sr] 25 mg PO DAILY #30 tab.sr.24h History of Present Illiness History of Present Illness: Per H&P by Dr. Sevilla: FINA HERNÁNDEZ is a 63 year old female snf resident, with a complex past medical history of morbid obesity, obstructive sleep apnea, oxygen dependent COPD, insulin-dependent diabetes, CKD 3, hypertension, diastolic heart failure with recurrent left-sided pleural effusion and anemia of chronic disease. In the emergency department she is found to have confusion, hypoglycemia at 41, hypertensive urgency of 180/90, pulmonary vascular congestion with a BNP of 16,000, large pleural effusion and proteinuria. Patient is a poor historian she is unable to provide significant history believing she is living at home. However she denies pain. Hospital Course Hospital Course: (1) Hypertensive urgency Resolved; now well controlled. Continue home dose lisinopril. Transitioned to transdermal clonidine patch to encourage compliance. Have started on Amlodipine and Toprol XL Cardiac diet. (2) Acute exacerbation of congestive heart failure Acute exacerbation has resolved. Patient was admitted to [facility] on continuous cardiac telemetry. Antihypertensives as above. She was diuresed with IV furosemide. Recommend continued Cardiac diet and daily weights. (3) Candidiasis of breast Received Diflucan x3 days (4) Hypoglycemia secondary to insulin use; hemoglobin A1c 4.9. Have discontinued Lantus and Humalog. Recommend diet control with Consistent Carb diet. (5) Hypokalemia Replete Monitor chemistries. (6) Malnutrition Encourage PO intake with nutritional supplements (i.e. Beneprotein, Boost, Ensure) (7) Pleural effusion Secondary to diastolic heart failure, prior thoracentesis unremarkable Management of CHF as above. Encourage pulmonary toilet. (8) Renal insufficiency At baseline. (9) Anemia, chronic disease Secondary to chronic disease Hemoglobin is stable. No evidence of active bleeding. (10) Diabetes mellitus type 2 in obese A1c 4.9%. Likely no longer requiring insulin. Have placed Lantus on hold secondary to prolonged hypoglycemia. Consistent carb diet. (11) Morbid obesity with BMI of 45.0-49.9, adult BMI 46.9. Dietary discretion advised. Cardiac/consistent carb diet. (12) NILO (obstructive sleep apnea) CPAP while asleep Physical Exam Vital Signs: Temp Pulse Resp BP Pulse Ox 98.3 F 90 20 142/77 H 91 L 05/13/19 11:06 05/13/19 11:06 05/13/19 11:06 05/13/19 11:06 05/13/19 11:06 Intake & Output 05/12/19 05/13/19 05/14/19 06:59 06:59 06:59 Intake Total 1620 950 50 Output Total 2150 2400 500 Balance -530 -1450 -450 Weight 119.8 kg 115.3 kg General appearance: PRESENT: no acute distress, cooperative, morbidly obese, well-developed, well-nourished Head exam: PRESENT: atraumatic, normocephalic Eye exam: PRESENT: conjunctiva pink, EOMI, PERRLA. ABSENT: scleral icterus Ear exam: PRESENT: normal external ear exam Mouth exam: PRESENT: moist, tongue midline Respiratory exam: PRESENT: clear to auscultation vadim, decreased breath sounds - bibasialr r/t body habitus and inspiratory effort, symmetrical, unlabored, other - supplemental oxygen via NC. ABSENT: rales, rhonchi, wheezes Cardiovascular exam: PRESENT: RRR, +S1, +S2. ABSENT: diastolic murmur, rubs, systolic murmur Pulses: PRESENT: normal dorsalis pedis pul Vascular exam: PRESENT: normal capillary refill GI/Abdominal exam: PRESENT: normal bowel sounds, soft. ABSENT: distended, guarding, mass, organolmegaly, rebound, tenderness Rectal exam: PRESENT: deferred Gentrourinary exam: PRESENT: indwelling catheter Extremities exam: PRESENT: full ROM. ABSENT: calf tenderness, clubbing, pedal edema Neurological exam: PRESENT: alert, awake, oriented to person, oriented to place, oriented to time, oriented to situation, CN II-XII grossly intact, other - intermittent confusion. ABSENT: motor sensory deficit Psychiatric exam: PRESENT: appropriate affect, normal mood. ABSENT: homicidal ideation, suicidal ideation Skin exam: PRESENT: dry, intact, warm. ABSENT: cyanosis, rash Results Laboratory Results: WBC 4.8 10^3/uL (4.0-10.5) 05/11/19 04:52 RBC 2.86 10^6/uL (3.72-5.28) L 05/11/19 04:52 Hgb 9.3 g/dL (12.0-15.5) L 05/11/19 04:52 Hct 26.6 % (36.0-47.0) L 05/11/19 04:52 MCV 93 fl (80-97) 05/11/19 04:52 MCH 32.4 pg (27.0-33.4) 05/11/19 04:52 MCHC 34.9 g/dL (32.0-36.0) 05/11/19 04:52 RDW 15.3 % (11.5-14.0) H 05/11/19 04:52 Plt Count 293 10^3/uL (150-450) 05/11/19 04:52 Lymph % (Auto) 28.8 % (13-45) 05/11/19 04:52 Tift % (Auto) 16.7 % (3-13) H 05/11/19 04:52 Eos % (Auto) 3.0 % (0-6) 05/11/19 04:52 Baso % (Auto) 1.9 % (0-2) 05/11/19 04:52 Reticulocyte # 0.038 10^6/uL (0.028-0.122) 05/11/19 04:52 Absolute Neuts (auto) 2.4 10^3/uL (1.7-8.2) 05/11/19 04:52 Absolute Lymphs (auto) 1.4 10^3/uL (0.5-4.7) 05/11/19 04:52 Absolute Monos (auto) 0.8 10^3/uL (0.1-1.4) 05/11/19 04:52 Absolute Eos (auto) 0.1 10^3/uL (0.0-0.6) 05/11/19 04:52 Absolute Basos (auto) 0.1 10^3/uL (0.0-0.2) 05/11/19 04:52 Seg Neutrophils % 49.6 % (42-78) 05/11/19 04:52 Retic Count (auto) 1.34 % (0.66-2.85) 05/11/19 04:52 Sodium 139.2 mmol/L (137-145) 05/13/19 09:09 Potassium 3.6 mmol/L (3.6-5.0) 05/13/19 09:09 Chloride 99 mmol/L (98-107) 05/13/19 09:09 Carbon Dioxide 34 mmol/L (22-30) H 05/13/19 09:09 Anion Gap 6 (5-19) 05/13/19 09:09 BUN 22 mg/dL (7-20) H 05/13/19 09:09 Creatinine 1.76 mg/dL (0.52-1.25) H 05/13/19 09:09 Est GFR ( Amer) 35 (>60) L 05/13/19 09:09 Est GFR (MDRD) Non-Af 29 (>60) L 05/13/19 09:09 Glucose 97 mg/dL (75-110) 05/13/19 09:09 POC Glucose 107 mg/dL (70-110) 05/13/19 11:06 Hemoglobin A1c % 4.9 % (4.7-6.0) 05/11/19 04:52 Calcium 8.6 mg/dL (8.4-10.2) 05/13/19 09:09 Magnesium 1.5 mg/dL (1.6-2.3) L 05/10/19 17:45 Iron 29.2 ug/dL (37-170) L 05/11/19 04:52 TIBC 173 ug/dL (250-450) L 05/11/19 04:52 % Saturation 17 % 05/11/19 04:52 Ferritin 593.00 ng/mL (11.1-264.0) H 05/11/19 04:52 Total Bilirubin 0.6 mg/dL (0.2-1.3) 05/10/19 17:45 Direct Bilirubin 0.1 mg/dL (0.0-0.4) 05/10/19 17:45 Neonat Total Bilirubin Not Reportable 05/10/19 17:45 Neonat Direct Bilirubin Not Reportable 05/10/19 17:45 Neonat Indirect Bili Not Reportable 05/10/19 17:45 AST 27 U/L (14-36) 05/10/19 17:45 ALT 12 U/L (<35) 05/10/19 17:45 Alkaline Phosphatase 96 U/L (38-126) 05/10/19 17:45 NT-Pro-B Natriuret Pep 86350 pg/mL (<125) H 05/10/19 17:45 Total Protein 5.1 g/dL (6.3-8.2) L 05/10/19 17:45 Albumin 2.7 g/dL (3.5-5.0) L 05/10/19 17:45 Prealbumin 15.6 mg/dL (17.6-36.0) L 05/10/19 17:45 Vitamin B12 342.0 pg/mL (239-931) 05/11/19 04:52 Folate 7.04 ng/mL (>2.76) 05/11/19 04:52 TSH 5.48 uIU/mL (0.47-4.68) H 05/10/19 17:45 Free T4 1.31 ng/dL (0.78-2.19) 05/10/19 17:45 Free T3 pg/mL 2.58 pg/mL (2.77-5.27) L 05/10/19 17:45 Urine Color YELLOW 05/10/19 19:30 Urine Appearance CLEAR 05/10/19 19:30 Urine pH 7.0 (5.0-9.0) 05/10/19 19:30 Ur Specific Welches 1.010 05/10/19 19:30 Urine Protein >=500 mg/dL (NEGATIVE) H 05/10/19 19:30 Urine Glucose (UA) 50 mg/dL (NEGATIVE) H 05/10/19 19:30 Urine Ketones NEGATIVE mg/dL (NEGATIVE) 05/10/19 19:30 Urine Blood NEGATIVE (NEGATIVE) 05/10/19 19:30 Urine Nitrite NEGATIVE (NEGATIVE) 05/10/19 19:30 Urine Bilirubin NEGATIVE (NEGATIVE) 05/10/19 19:30 Urine Urobilinogen NEGATIVE mg/dL (<2.0) 05/10/19 19:30 Ur Leukocyte Esterase NEGATIVE (NEGATIVE) 05/10/19 19:30 Amorphous Sediment TRACE 05/10/19 19:30 Urine Bacteria TRACE /HPF 05/10/19 19:30 Urine Yeast PRESENT 05/10/19 19:30 Urine Ascorbic Acid NEGATIVE (NEGATIVE) 05/10/19 19:30 05/10/19 17:45 NT-Pro-B Natriuret Pep 11542 H Impressions: Chest X-Ray 05/10/19 18:12 IMPRESSION: LIMITED STUDY. CARDIOMEGALY. CONTINUED AIRSPACE DISEASE IN THE LEFT LOWER LOBE. Plan Plan of Treatment: The patient is discharged to SNF where she was a previous resident for rehabilitation. She is advised to follow up with her PCP within 1 week of discharge from SNF. She is instructed to take her medications as prescribed. Recommend cardiac (low sodium diet), fluid restriction to 2L daily, and daily w eights. Discontinue insulin administration; recommend diet control of glucose. Patient's HgA1c is 4.9%. Report any weight gain of >2 lbs overnight to provider. Return to the emergency department as needed for concerning symptoms. Time Spent: Greater than 30 Minutes Stroke Is this a Stroke Patient?: No Acute Heart Failure - Is this a Heart Failure Patient?: Yes Documentation of LVEF assessment?: Yes LVEF < 40%?: No- if no continue to question #3 3. Anticoagulant therapy for permanect/persistent/paraoxysmal Afib or Aflutter: N/A
[2019-05-13 16:24] VITALS: BP 126/93
== END 2019-05-13 17:15 | DRG 304 ==
LOC: ER 16:27 → EH 22:41 → 3W 05-11
PROVIDERS: ADMIT Internal Medicine; ATTEND Registered Nurse
DX: I16.0 Hypertensive urgency (principal); I50.33 Acute on chronic diastolic (congestive) heart failure; E46 Unspecified protein-calorie malnutrition; Z68.42 Body mass index [BMI] 45.0-49.9, adult; E11.649 Type 2 diabetes mellitus with hypoglycemia without coma; D63.1 Anemia in chronic kidney disease; E11.22 Type 2 diabetes mellitus with diabetic chronic kidney disease; Z99.81 Dependence on supplemental oxygen; N18.3 Chronic kidney disease, stage 3 (moderate); B37.2 Candidiasis of skin and nail; E87.6 Hypokalemia; E66.01 Morbid (severe) obesity due to excess calories; G47.33 Obstructive sleep apnea (adult) (pediatric); J44.9 Chronic obstructive pulmonary disease, unspecified; I13.0 Hypertensive heart and chronic kidney disease with heart failure and stage 1 through stage 4 chronic kidney disease, or unspecified chronic kidney disease; F32.9 Major depressive disorder, single episode, unspecified; Z83.3 Family history of diabetes mellitus; Z82.49 Family history of ischemic heart disease and other diseases of the circulatory system; Z79.82 Long term (current) use of aspirin; Z79.4 Long term (current) use of insulin
CPT/HCPCS: 36415; 71045; 80048; 80053; 81001; 82607; 82728; 82746; 82962; 83036; 83540; 83550; 83735; 83880; 84134; 84439; 84443; 84481; 85025; 85045; 93005; 93010; 94660; 96374; 99291; J0360; J1644; J1940; J3480; J3490

== ENCOUNTER 2019-05-18 03:04 | Inpatient (IN) | payer MEDICARE, MEDICAID ==
[2019-05-18 04:01] LABS: ALBUMIN 2.9 g/dL (3.5-5.0); ALKALINE PHOSPHATASE 103 U/L (38-126); ASPARTATE AMINO TRANSFERASE 39 U/L (14-36); BILIRUBIN,DIRECT 0.2 mg/dL (0.0-0.4); BILIRUBIN,TOTAL 0.5 mg/dL (0.2-1.3); BLOOD UREA NITROGEN 22 mg/dL (7-20); CALCIUM 7.9 mg/dL (8.4-10.2); GLUCOSE 205 mg/dL (75-110); POTASSIUM 4.3 mmol/L (3.6-5.0); TOTAL PROTEIN 5.3 g/dL (6.3-8.2)
[2019-05-18 04:03] LABS: HEMATOCRIT 24.2 % (36.0-47.0); HEMOGLOBIN 8.1 g/dL (12.0-15.5); MEAN CORPUSCULAR HEMOGLOBIN 32.2 pg (27.0-33.4); MEAN CORPUSCULAR HGB CONC 33.7 g/dL (32.0-36.0); MEAN CORPUSCULAR VOLUME 96 fl (80-97); PLATELET COUNT 294 10^3/uL (150-450); RED BLOOD COUNT 2.53 10^6/uL (3.72-5.28); RED CELL DISTRIBUTION WIDTH 15.5 % (11.5-14.0); WHITE BLOOD COUNT 14.9 10^3/uL (4.0-10.5)
[2019-05-18 04:06] LABS: CARBON DIOXIDE 31 mmol/L (22-30); CHLORIDE 105 mmol/L (98-107)
[2019-05-18 04:10] LABS: ALCOHOL < 10 mg/dL (NONE DETECTED); ANION GAP 4 (5-19)
[2019-05-18 04:12] LABS: ABSOLUTE LYMPHOCYTES# (MANUAL) 0.7 10^3/uL (0.5-4.7); ABSOLUTE MONOCYTES # (MANUAL) 0.3 10^3/uL (0.1-1.4); BAND NEUTROPHILS % (MANUAL) 1 % (3-5); BASOPHILS % (MANUAL) 0 % (0-2); EOSINOPHILS % (MANUAL) 1 % (0-6); LYMPHOCYTES % (MANUAL) 5 % (13-45); MONOCYTES % (MANUAL) 2 % (3-13); SEGMENTED NEUTROPHILS % (MAN) 91 % (42-78); TOTAL CELLS COUNTED 100; TOXIC GRANULATION SLIGHT
[2019-05-18 04:14] LABS: ANISOCYTOSIS SLIGHT; PLATELET COMMENT ADEQUATE
[2019-05-18 04:15] LABS: SCHISTOCYTES SLIGHT
[2019-05-18 05:34] LABS: VENOUS BLOOD BASE EXCESS 4.5 mmol/L; VENOUS BLOOD HCO3 29.8 mmol/L (20-32); VENOUS BLOOD PCO2 49.4 mmHg (35-63); VENOUS BLOOD PH 7.4 (7.30-7.42)
--- NOTE | 2019-05-18 05:36 | ER Document Report ---
ED Medical Screen (RME) - General Chief Complaint: Altered Mental Status Stated Complaint: AMS Primary Care Provider: NATACHA CORMIER MD [Primary Care Provider] - Follow up as needed Mode of Arrival: Medic Information source: Patient, Emergency Med Personnel, Outside Facility Records Cannot obtain history due to: Altered mental status Notes: 63-year-old female arrives by EMS from [facility] where for the last 4 days she has had increased mental status changes. Patient fell over a week ago impacting the floor with bruising to her left periorbital and left temporal area. Patient agrees to CT of head today but initially refused while at [facility]. On selective visits patient has prior admissions with Bree Richardson NP as well as other providers. She has had a left lower lobe pneumonia left lung nodule and also CKD and was admitted here on 07 May and discharged on the . Somehow patient was at [facility] as well TRAVEL OUTSIDE OF THE [place] IN LAST 30 DAYS: No - Related Data Allergies/Adverse Reactions: No Known Allergies Allergy (Verified 05/10/19 17:31) Past Medical History - General Information source: Patient, Emergency Med Personnel, Outside Facility Records Cannot obtain history due to: Altered mental status - Social History Cigarette use (# per day): No Chew tobacco use (# tins/day): No Frequency of alcohol use: None Drug Abuse: None Lives with: Retirement Family history: Reviewed & Not Pertinent - Past Medical History Cardiac Medical History: Reports: Hx Congestive Heart Failure, Hx Coronary Artery Disease, Hx Hypercholesterolemia, Hx Hypertension Denies: Hx Atrial Fibrillation, Hx DVT, Hx Heart Attack, Hx Peripheral Vascular Disease, Hx Pulmonary Embolism Pulmonary Medical History: Reports: Hx Asthma, Hx Respiratory Failure, Hx Sleep Apnea - Not using CPAP at home Denies: Hx Bronchitis, Hx COPD, Hx Pneumonia Neurological Medical History: Denies: Hx Cerebrovascular Accident, Hx Seizures Endocrine Medical History: Reports: Hx Diabetes Mellitus Type 2. Denies: Hx D iabetes Mellitus Type 1, Hx Hyperthyroidism, Hx Hypothyroidism Renal/ Medical History: Denies: Hx Peritoneal Dialysis GI Medical History: Denies: Hx Cirrhosis, Hx Crohn's Disease, Hx Hepatitis, Hx Ulcerative Colitis Musculoskeltal Medical History: Reports Hx Arthritis, Denies Hx Gout Skin Medical History: Denies Hx Eczema, Denies Hx Psoriasis Psychiatric Medical History: Reports: Hx Depression Infectious Medical History: Denies: Hx Hepatitis Past Surgical History: Reports: Hx Cholecystectomy, Hx Tonsillectomy, Hx Tubal Ligation, Other - Carpal tunnel - Immunizations Hx Diphtheria, Pertussis, Tetanus Vaccination: Yes Review of Systems - Review of Systems Constitutional: See HPI, Malaise, Weakness, Recent illness EENT: No symptoms reported Cardiovascular: No symptoms reported Respiratory: No symptoms reported Gastrointestinal: No symptoms reported Genitourinary: No symptoms reported Female Genitourinary: No symptoms reported Musculoskeletal: No symptoms reported Skin: No symptoms reported Hematologic/Lymphatic: No symptoms reported Neurological/Psychological: See HPI, Confusion, Weakness, Loss of power, Headaches Physical Exam - Vital signs Vitals: Resp BP 19 158/70 H 05/18/19 03:11 05/18/19 03:11 Interpretation: Normal - General General appearance: Alert - HEENT Head: Tenderness - Patient with left periorbital and left temporal ecchymosis approximately 8 cm diameter Eyes: Periorbital ecchymosis Conjunctiva: Normal Cornea: Embedded foreign body Extraocular movements intact: Yes Eyelashes: Normal Pupils: PERRL Sinus: Normal Nasal: Normal Mouth/Lips: Normal Pharynx: Normal Neck: Normal - Respiratory Respiratory status: No respiratory distress Chest status: Nontender Breath sounds: Normal Chest palpation: Normal - Cardiovascular Rhythm: Regular Heart sounds: Normal auscultation Murmur: No Friction rub: No Arik's crunch: No - Abdominal Inspection: Morbidly Obese Distension: No distension Bowel sounds: Normal Tenderness: Nontender Organomegaly: No organomegaly - Back Back: Normal - Extremities General upper extremity: Normal inspection General lower extremity: Edema - With DENISE hose bilaterally to her knees - Neurological Neuro grossly intact: Yes Cognition: Confused Orientation: Disoriented to place, Disoriented to time, Disoriented to events [place] Coma Scale Eye Opening: Spontaneous [place] Coma Scale Verbal: Oriented [place] Coma Scale Motor: Obeys Commands Du[place] Coma Scale Total: 15 Speech: Normal Cranial nerves: Normal Cerebellar coordination: Normal Motor strength normal: LUE, RUE, LLE, RLE - Psychological Associated symptoms: Confused - Skin Skin Temperature: Warm Skin Moisture: Dry Course - Vital Signs Vital signs: Temp Pulse Resp BP Pulse Ox 98.2 F 20 158/70 H 97 05/18/19 03:12 05/18/19 03:12 05/18/19 03:11 05/18/19 03:20 - Laboratory Result Diagrams: 05/18/19 03:31 05/18/19 03:31 Laboratory results interpreted by me: 05/18/19 05/18/19 03:31 03:31 WBC 14.9 H RBC 2.53 L Hgb 8.1 L Hct 24.2 L RDW 15.5 H Seg Neuts % (Manual) 91 H Band Neutrophils % 1 L Lymphocytes % (Manual) 5 L Monocytes % (Manual) 2 L Abs Neuts (Manual) 13.7 H Carbon Dioxide 31 H Anion Gap 4 L BUN 22 H Creatinine 2.32 H Est GFR ( Amer) 25 L Est GFR (MDRD) Non-Af 21 L Glucose 205 H Calcium 7.9 L Magnesium 1.5 L AST 39 H Total Protein 5.3 L Albumin 2.9 L - Diagnostic Test Radiology reviewed: Reports reviewed Critical Care Note - Critical Care Note Total time excluding time spent on procedures (mins): 60 Doctor's Discharge - Discharge Clinical Impression: Acute alteration in mental status Referrals: NATACHA CORMIER MD [Primary Care Provider] - Follow up as needed
[2019-05-18] MEDS ORDERED: CEFTRIAXONE INJ 1000 MG VIAL IV ONE (06:05)
--- NOTE | 2019-05-18 06:11 | RADIOLOGY REPORT (SQ) ---
EXAM DESCRIPTION: CT HEAD WITHOUT IV CONTRAST COMPLETED DATE/TME: 05/18/2019 05:25 CLINICAL HISTORY: Altered mental status COMPARISON: 03/14/2019 TECHNIQUE: Axial CT of the head obtained from the skull apex to the skull base without contrast. FINDINGS: No acute intracranial hemorrhage identified. No mass, mass effect, shift of the midline, abnormal extra-axial fluid collection or CT evidence of acute ischemic change identified. The ventricular system and sulcal spaces are mildly enlarged compatible with mild cerebral atrophy. Scattered areas of hypodensity throughout the supratentorial white matter are nonspecific and may be related to chronic small vessel ischemic change. Mild mucosal thickening of paranasal sinuses. Minimal opacities in the mastoid air cells. No destructive osseous changes. No skull fracture identified. Visualized orbits and globes are unremarkable. Atherosclerotic calcification of the intracranial internal carotid arteries. DLP: mGy-cm IMPRESSION: 1. No acute intracranial abnormality by CT criteria. This exam was performed according to our departmental dose-optimization program, which includes automated exposure control, adjustment of the mA and/or kV according to patient size and/or use of iterative reconstruction technique.
--- NOTE | 2019-05-18 06:19 | RADIOLOGY REPORT (SQ) ---
CLINICAL HISTORY: ms change COMPARISON: 05/10/2019. TECHNIQUE: XR CHEST 1 VIEW 05/18/2019 5:25 AM CDT FINDINGS: The heart is enlarged. There is vague left upper lobe and right basilar airspace disease. There may be a left pleural effusion. There is no pneumothorax. There are no acute osseous findings. IMPRESSION: Possible developing bilateral pneumonia.
[2019-05-18] MEDS ORDERED: LORAZEPAM INJ 2 MG/1 ML VIAL IV ONE (06:43)
--- NOTE | 2019-05-18 07:10 | ER Document Report ---
Entered by MAGDALENO NIXON SCRIBE 05/18/19 0615 Acting as scribe for:MIRANDA MEDINA MD ED General - General Chief Complaint: Altered Mental Status Stated Complaint: AMS Time Seen by Provider: 05/18/19 06:12 Primary Care Provider: NATACHA CORMIER MD [Primary Care Provider] - Follow up as needed Mode of Arrival: Medic Information source: Patient, Emergency Med Personnel Notes: This 63 year old female patient with a history of CHF, CAD, hypertension, hyperlipidemia, diabetes, asthma, and sleep apnea who was brought in by EMS from [facility] presents to the ED today with complaints of increased altered mental status for the past x4 days. EMS reports that the patient complains of lower back pain and that she fell x10 days ago as well as refused a head CT at [facility]. Patient was admitted on the 05/10/19 and discharged on the 05/13/19 hypertension and AMS. Patient states that she feels tired, but is otherwise okay. Patient denies any other symptoms. TRAVEL OUTSIDE OF THE [place] IN LAST 30 DAYS: No - Related Data Allergies/Adverse Reactions: No Known Allergies Allergy (Verified 05/10/19 17:31) Past Medical History - General Information source: Patient, Emergency Med Personnel, Outside Facility Records - Social History Smoking Status: Unknown if Ever Smoked Cigarette use (# per day): No Chew tobacco use (# tins/day): No Smoking Education Provided: No Frequency of alcohol use: None Drug Abuse: None Lives with: [facility] Family History: Reviewed & Not Pertinent, CAD, DM, Hypertension Patient has suicidal ideation: No Patient has homicidal ideation: No - Past Medical History Cardiac Medical History: Reports: Hx Congestive Heart Failure, Hx Coronary Artery Disease, Hx Hypercholesterolemia, Hx Hypertension Pulmonary Medical History: Reports: Hx Asthma, Hx Respiratory Failure, Hx Sleep Apnea - Not using CPAP at home Endocrine Medical History: Reports: Hx Diabetes Mellitus Type 2 Musculoskeletal Medical History: Reports Hx Arthritis Psychiatric Medical History: Reports: Hx Depression Past Surgical History: Reports: Hx Cholecystectomy, Hx Tonsillectomy, Hx Tubal Ligation, Other - Carpal tunnel - Immunizations Hx Diphtheria, Pertussis, Tetanus Vaccination: Yes Review of Systems - Review of Systems Constitutional: No symptoms reported EENT: No symptoms reported Cardiovascular: No symptoms reported Respiratory: No symptoms reported Gastrointestinal: No symptoms reported Genitourinary: No symptoms reported Female Genitourinary: No symptoms reported Musculoskeletal: See HPI, Back pain Skin: No symptoms reported Hematologic/Lymphatic: No symptoms reported Neurological/Psychological: See HPI, Other - Altered mental status -: Yes All other systems reviewed and negative Physical Exam - Vital signs Vitals: Resp BP 19 158/70 H 05/18/19 03:11 05/18/19 03:11 Interpretation: Hypertensive - General General appearance: Alert, Other - Patient is restless, picking at things and moving her legs around. Patient is wearing compression hose. - HEENT Head: Normocephalic, Atraumatic Eyes: Normal Pupils: PERRL - Respiratory Respiratory status: No respiratory distress Chest status: Nontender Breath sounds: Normal Chest palpation: Normal - Cardiovascular Rhythm: Regular Heart sounds: Normal auscultation Murmur: No - Abdominal Inspection: Morbidly Obese Distension: No distension Bowel sounds: Normal Tenderness: Nontender - Abdomen soft Organomegaly: No organomegaly - Back Back: Normal, Nontender - Extremities General upper extremity: Normal inspection General lower extremity: Normal inspection - Neurological Neuro grossly intact: Yes - Oriented to person - Psychological Associated symptoms: Restlessness - Skin Skin Temperature: Warm Skin Moisture: Dry Skin Color: Normal Course - Vital Signs Vital signs: Temp Pulse Resp BP Pulse Ox 96.2 F L 20 156/83 H 98 05/18/19 08:48 05/18/19 07:00 05/18/19 06:00 05/18/19 06:01 - Laboratory Result Diagrams: 05/18/19 03:31 05/18/19 03:31 Laboratory results interpreted by me: 05/18/19 05/18/19 05/18/19 03:31 03:31 08:45 WBC 14.9 H RBC 2.53 L Hgb 8.1 L Hct 24.2 L RDW 15.5 H Seg Neuts % (Manual) 91 H Band Neutrophils % 1 L Lymphocytes % (Manual) 5 L Monocytes % (Manual) 2 L Abs Neuts (Manual) 13.7 H Carbon Dioxide 31 H Anion Gap 4 L BUN 22 H Creatinine 2.32 H Est GFR ( Amer) 25 L Est GFR (MDRD) Non-Af 21 L Glucose 205 H Calcium 7.9 L Magnesium 1.5 L AST 39 H Total Protein 5.3 L Albumin 2.9 L Urine Protein >=500 H Urine Glucose (UA) >=500 H Urine Ketones TRACE H Urine Blood SMALL H - Diagnostic Test Radiology reviewed: Image reviewed, Reports reviewed - Chest x-ray shows enlarged heart with vague left upper lobe and right basilar airspace disease. Impression is possible developing bilateral pneumonia. CT scan of the head does not show acute abnormality. - EKG Interpretation by Me EKG shows normal: Sinus rhythm, [place], Intervals. abnormal: QRS Complexes - Borderline R wave progression in the anterior leads, ST-T Waves - Borderline T wave abnormalities in the anterolateral leads Rate: Normal - 88 Rhythm: NSR, APC's P Waves: LAE When compared to previous EKG there are: No significant change - Consults Dr. Berg Time consulted: 09:30 Consulted provider: will come to ER Critical Care Note - Critical Care Note Total time excluding time spent on procedures (mins): 35 Discharge - Discharge Clinical Impression: Acute alteration in mental status, Renal insufficiency, Morbid obesity with BMI of 45.0-49.9, adult Leukocytosis Qualifiers: Leukocytosis type: bandemia Qualified Code(s): D72.825 - Bandemia Pneumonia Qualifiers: Pneumonia type: due to unspecified organism Laterality: bilateral Lung location: unspecified part of lung Qualified Code(s): J18.9 - Pneumonia, unspecified organism Condition: Stable Disposition: ADMITTED INPATIENT Admitting Provider: Otis (Hospitalist) Unit Admitted: Medical Floor Referrals: NATACHA CORMIER MD [Primary Care Provider] - Follow up as needed I personally performed the services described in the documentation, reviewed and edited the documentation which was dictated to the scribe in my presence, and it accurately records my words and actions.
[2019-05-18 09:12] LABS: APPEARANCE,URINE CLEAR; BILIRUBIN,URINE NEGATIVE (NEGATIVE); COLOR,URINE YELLOW; GLUCOSE, URINE >=500 mg/dL (NEGATIVE); KETONES,URINE TRACE mg/dL (NEGATIVE); LEUKOCYTE ESTERASE,URINE NEGATIVE (NEGATIVE); NITRITE,URINE NEGATIVE (NEGATIVE); PROTEIN,URINE >=500 mg/dL (NEGATIVE); URINE SPECIFIC GRAVITY 1.012; UROBILINOGEN,URINE NEGATIVE mg/dL (<2.0)
[2019-05-18 09:34] LABS: URINE AMPHETAMINES SCREEN NEGATIVE; URINE BARBITURATES SCREEN NEGATIVE; URINE BENZODIAZEPINES SCREEN NEGATIVE; URINE COCAINE SCREEN NEGATIVE; URINE MARIJUANA (THC) SCREEN NEGATIVE; URINE METHADONE SCREEN NEGATIVE; URINE PHENCYCLIDINE SCREEN NEGATIVE
[2019-05-18] MEDS ORDERED: IPRATROPIUM/ALBUTEROL 0.5-2.5 MG/3 ML AMPUL NEB PRN (10:49)
[2019-05-18] MEDS ORDERED: ONDANSETRON 4 MG TAB.RAPDIS PO PRN (10:49)
[2019-05-18] MEDS ORDERED: ACETAMINOPHEN 325 MG TABLET PO PRN (10:49)
--- NOTE | 2019-05-18 11:20 | EKG REPORT ---
SEVERITY:- ABNORMAL ECG - SINUS RHYTHM ATRIAL PREMATURE COMPLEX PROBABLE LEFT ATRIAL ABNORMALITY LAD, CONSIDER LEFT ANTERIOR FASCICULAR BLOCK BORDERLINE R WAVE PROGRESSION, ANTERIOR LEADS BORDERLINE T ABNORMALITIES, ANT-LAT LEADS : Confirmed by: Nicole Rodriguez MD 18-May-2019 11:19:46
[2019-05-18] MEDS: AZITHROMYCIN 250 MG TABLET PO SCH (12:53)
--- NOTE | 2019-05-18 17:31 | PDOC H&P ---
History of Present Illness Admission Date/PCP: 05/18/19 10:00 NATACHA CORMIER MD Patient complains of: This patient presents emergency room with complaints of altered mental status for the past 4 days. She apparently has a history of of falling about 10 days ago. Patient was apparently awake and alert but was agitated in the ER and so was given Ativan. By the time I saw her patient was sedated and was unable to provide any information to me History of Present Illness: FINA HERNÁNDEZ is a 63 year old female Please note this information is obtained solely from the computer records as patient was unable to provide any information to me. She was found to have an acute change in mental status. She was found to have a leukocytosis with possible pneumonia and so was started on intravenous antibiotics. EKG shows normal sinus rhythm with premature atrial complexes. She was also found to be anemic with hemoglobin at 8.1 today although at baseline appears to fluctuate between 7 and 9. Kidney function is also noted to be between the range of about 1.7 about 5 days ago to 4.27 about 5 weeks ago. Creatinine today is currently at 2.3 with a BUN of 22 which is actually much lower than it has been in recent history. Past Medical History Cardiac Medical History: Reports: Congestive Heart Failure, Coronary Artery Disease, Hyperlipidema, Hypertension Denies: Atrial Fibrillation, DVT, Myocardial Infarction, Peripheral Vascular Disease, Pulmonary Embolism Pulmonary Medical History: Reports: Asthma, Respiratory Failure, Sleep Apnea - Not using CPAP at home Denies: Bronchitis, Chronic Obstructive Pulmonary Disease (COPD), Pneumonia Neurological Medical History: Denies: Seizures Endocrine Medical History: Reports: Diabetes Mellitus Type 2 Denies: Diabetes Mellitus Type 1, Hyperthyroidism, Hypothyroidism GI Medical History: Denies: Cirrhosis, Crohn's Disease, Hepatitis, Ulcerative Colitis Musculoskeltal Medical History: Reports: Arthritis Denies: Gout Skin Medical History: Denies: Eczema, Psoriasis Psychiatric Medical History: Reports: Depression Hematology: Reports: Anemia Denies: Bleeding Tendencies Past Surgical History Past Surgical History: Reports: Cholecystectomy, Tonsillectomy, Tubal Ligation, Other - Carpal tunnel Social History Information Source: [facility] Records Lives with: [facility] Smoking Status: Unknown if Ever Smoked Frequency of Alcohol Use: None Hx Recreational Drug Use: No Drugs: None Hx Prescription Drug Abuse: No - Advance Directive Resuscitation Status: Do Not Intubate - As per computer records, unable to confirm with patient Family History Family History: Reviewed & Not Pertinent, CAD, DM, Hypertension Parental Family History Reviewed: No Children Family History Reviewed: No Sibling(s) Family History Reviewed.: No - Unable to confirm Medication/Allergy Home Medications: Lisinopril [Zestril] 40 mg PO DAILY 05/11/19 Ondansetron [Zofran Odt 4 mg Tablet] 4 mg PO Q8HP PRN 05/11/19 Potassium Chloride [Klor-Con 10 Meq Tablet ER] 20 meq PO DAILY 05/11/19 Amlodipine Besylate [Norvasc 10 mg Tablet] 10 mg PO DAILY #30 tablet 05/13/19 Clonidine [Catapres-Tts 2 (0.2 mg/24 Hr) Transderm Ptch] 1 each TD Fr@10 #4 patch.tdwk 05/13/19 Metoprolol Succinate [Toprol Xl 25 mg Tab.sr] 50 mg PO DAILY 05/18/19 Nystatin [Mycostatin Topical Powder 15 gm] 1 applic TP DAILY MDD UNDER BREAST 05/18/19 Quetiapine Fumarate [Seroquel 25 mg Tablet] 25 mg PO Q12 MDD STOP 05/2005/18/19 Quetiapine Fumarate [Seroquel 25 mg Tablet] 50 mg PO Q8HP PRN 05/18/19 Allergies/Adverse Reactions: No Known Allergies Allergy (Verified 05/10/19 17:31) Review of Systems ROS unobtainable: Due to mental status Physical Exam Vital Signs: Temp Pulse Resp BP Pulse Ox 97.6 F 57 L 20 154/63 H 98 05/18/19 15:07 05/18/19 15:07 05/18/19 15:07 05/18/19 15:07 05/18/19 15:07 Intake & Output 05/17/19 05/18/19 05/19/19 06:59 06:59 06:59 Weight 119.2 kg 119.2 kg General appearance: PRESENT: no acute distress, morbidly obese Eye exam: PRESENT: PERRLA Neck exam: ABSENT: JVD Respiratory exam: PRESENT: rhonchi, unlabored. ABSENT: rales, wheezes Cardiovascular exam: PRESENT: RRR, +S1, +S2 GI/Abdominal exam: PRESENT: normal bowel sounds, soft. ABSENT: tenderness Rectal exam: PRESENT: deferred Neurological exam: PRESENT: altered. ABSENT: oriented to person, oriented to place, oriented to time, oriented to situation, reflexes normal Results Laboratory Results: 05/18/19 03:31 05/18/19 03:31 05/18/19 05/18/19 05/18/19 03:31 03:31 03:31 WBC 14.9 H RBC 2.53 L Hgb 8.1 L Hct 24.2 L MCV 96 MCH 32.2 MCHC 33.7 RDW 15.5 H Plt Count 294 Seg Neutrophils % Not Reportable VBG pH VBG pCO2 VBG HCO3 VBG Base Excess Sodium 140.2 Potassium 4.3 Chloride 105 Carbon Dioxide 31 H Anion Gap 4 L BUN 22 H Creatinine 2.32 H Est GFR ( Amer) 25 L Glucose 205 H Lactic Acid 0.9 Calcium 7.9 L Magnesium 1.5 L Total Bilirubin 0.5 AST 39 H Alkaline Phosphatase 103 Total Protein 5.3 L Albumin 2.9 L Urine Color Urine Appearance Urine pH Ur Specific [place] Urine Protein Urine Glucose (UA) Urine Ketones Urine Blood Urine Nitrite Ur Leukocyte Esterase Urine WBC (Auto) Urine RBC (Auto) 05/18/19 05/18/19 03:31 08:45 WBC RBC Hgb Hct MCV MCH MCHC RDW Plt Count Seg Neutrophils % VBG pH 7.40 VBG pCO2 49.4 VBG HCO3 29.8 VBG Base Excess 4.5 Sodium Potassium Chloride Carbon Dioxide Anion Gap BUN Creatinine Est GFR ( Amer) Glucose Lactic Acid Calcium Magnesium Total Bilirubin AST Alkaline Phosphatase Total Protein Albumin Urine Color YELLOW Urine Appearance CLEAR Urine pH 7.0 Ur Specific [place] 1.012 Urine Protein >=500 H Urine Glucose (UA) >=500 H Urine Ketones TRACE H Urine Blood SMALL H Urine Nitrite NEGATIVE Ur Leukocyte Esterase NEGATIVE Urine WBC (Auto) 8 Urine RBC (Auto) 1 Impressions: Chest X-Ray 05/18/19 05:25 IMPRESSION: Possible developing bilateral pneumonia. Head CT 05/18/19 05:25 IMPRESSION: 1. No acute intracranial abnormality by CT criteria. This exam was performed according to our departmental dose-optimization program, which includes automated exposure control, adjustment of the mA and/or kV according to patient size and/or use of iterative reconstruction technique. Assessment and Plan - Diagnosis (1) Acute alteration in mental status Is this a current diagnosis for this admission?: Yes Plan: Although patient presented with an change in mental status I was really not able to evaluate her as she had received Ativan prior to my examination. It is unknown what her baseline is (2) Morbid obesity with BMI of 45.0-49.9, adult Is this a current diagnosis for this admission?: Yes (3) Pneumonia Qualifiers: Pneumonia type: due to unspecified organism Laterality: bilateral Lung location: unspecified part of lung Qualified Code(s): J18.9 - Pneumonia, unspecified organism Is this a current diagnosis for this admission?: Yes Plan: Chest x-ray is suggested bibasilar airspace disease. Patient will be placed on ceftriaxone and Zithromax and will de-escalate as appropriate (4) Anemia, chronic disease Is this a current diagnosis for this admission?: Yes Plan: Her hemoglobin is close to baseline we will continue to monitor. There is no evidence of acute bleeding (5) CKD (chronic kidney disease), stage III Is this a current diagnosis for this admission?: Yes Plan: Chronic kidney disease with kidney function at baseline however will place on some cautious IV fluid (6) Diabetes mellitus type 2 in obese Is this a current diagnosis for this admission?: Yes Plan: Will place on sliding scale insulin as appropriate (7) Urinary tract infection Qualifiers: Urinary tract infection type: site unspecified Is this a current diagnosis for this admission?: Yes Plan: She rarely has 8 WBCs in the urinalysis and unable to verify if she has symptoms. We will follow-up on urine culture - Plan Summary Summary: As per computer records she was a DO NOT INTUBATE during her last admission and I have made a DO NOT INTUBATE also at this time. I am unable to verify this to her mental status being altered - Time Time Spent with patient: 25-34 minutes Anticipated discharge: SNF Within: within 72 hours - Inpatient Certification Based on my medical assessment, after consideration of the patient's comorbidities, presenting symptoms, or acuity I expect that the services needed warrant INPATIENT care.: Yes Medical Necessity: Need for IV Antibiotics, Risk of Complication if Not Cared For in Hospital
[2019-05-18] MEDS ORDERED: DEXTROSE 50%-WATER 25 GM/50 ML DISP.SYRIN IV PRN ×2 (17:40)
[2019-05-18] MEDS ORDERED: GLUCAGON,HUMAN RECOMB 1 MG INJ IM PRN (17:40)
[2019-05-18] MEDS ORDERED: DEXTROSE 40% GEL 15 GM TUBE PO PRN ×2 (17:40)
[2019-05-18] MEDS: NORMAL SALINE 1000 ML 1,000 ML IV PRN (18:06)
[2019-05-18] MEDS: MAGNESIUM SULFATE/D5W 1 GM/100 ML RTUPB IV SCH ×2 (18:52→20:46)
[2019-05-18] MEDS: INSULIN REG, HUMAN 100 UNIT/ML 3 ML VIAL (PYX) SUBCUT SCH (21:57)
[2019-05-18] MEDS: QUETIAPINE FUMARATE 25 MG TABLET PO SCH (21:58)
[2019-05-19 05:24] LABS: ABSOLUTE BASOPHILS # (AUTO) 0.1 10^3/uL (0.0-0.2); ABSOLUTE EOSINOPHILS # (AUTO) 0.1 10^3/uL (0.0-0.6); ABSOLUTE LYMPHOCYTES (AUTO) 1.4 10^3/uL (0.5-4.7); ABSOLUTE MONOCYTES (AUTO) 1.2 10^3/uL (0.1-1.4); ABSOLUTE NEUT (AUTO) 7.6 10^3/uL (1.7-8.2); BASOPHILS % (AUTO) 1.2 % (0-2); HEMATOCRIT 23.7 % (36.0-47.0); LYMPHOCYTES % (AUTO) 13.3 % (13-45); MEAN CORPUSCULAR HEMOGLOBIN 32.6 pg (27.0-33.4); MEAN CORPUSCULAR HGB CONC 33.8 g/dL (32.0-36.0); MEAN CORPUSCULAR VOLUME 96 fl (80-97); MONOCYTES % (AUTO) 11.5 % (3-13); PLATELET COUNT 257 10^3/uL (150-450); RED BLOOD COUNT 2.46 10^6/uL (3.72-5.28); RED CELL DISTRIBUTION WIDTH 15.6 % (11.5-14.0); TOTAL CELLS COUNTED % (AUTO) 100 %; WHITE BLOOD COUNT 10.4 10^3/uL (4.0-10.5)
[2019-05-19 05:38] LABS: BLOOD UREA NITROGEN 21 mg/dL (7-20); CALCIUM 7.6 mg/dL (8.4-10.2); GLUCOSE 96 mg/dL (75-110); POTASSIUM 3.4 mmol/L (3.6-5.0)
[2019-05-19 05:41] LABS: CARBON DIOXIDE 33 mmol/L (22-30)
[2019-05-19 06:00] LABS: CHLORIDE 106 mmol/L (98-107)
[2019-05-19 06:02] LABS: ANION GAP 4 (5-19)
[2019-05-19] MEDS: NORMAL SALINE 1000 ML 1,000 ML IV PRN (07:19)
[2019-05-19] MEDS: INSULIN REG, HUMAN 100 UNIT/ML 3 ML VIAL (PYX) SUBCUT SCH ×4 (09:02→21:19)
--- NOTE | 2019-05-19 09:56 | CDI QUERY ---
CDI Query CDI Review: Dear SAQIB, To better reflect your patients severity of illness, morbidity, and resource utilization Please LINK any condition to present on admission, if applicable. The terms probable, suspected, likely, possible or still to be ruled out may be used. If you agree, please add to the Progress Notes and Discharge Summary Query Clinical indicators METABOLIC ENCEPHALOPATHY? TOXIC ENCEPHALOPATHY? OTHER altered mental status for the past 4 days - Diagnosis (1) Acute alteration in mental status Is this a current diagnosis for this admission?: Yes Thank you, MARISELA Clinical Documentation Physician Advisors NATALIA Demarco Office [phone] PERSONAL CELL [phone] Due to the pandemic, we may be sent home to work remotely. Please call if needed, thanks
[2019-05-19] MEDS ORDERED: (PENDING PHARMACY ID) (Lisinopril [Zestril] 40 MG) PO SCH (10:00)
[2019-05-19] MEDS ORDERED: METOPROLOL SUCCINATE 25 MG TAB.SR.24H PO SCH (10:00)
[2019-05-19] MEDS: AMLODIPINE BESYLATE 10 MG TABLET PO SCH (10:42)
[2019-05-19] MEDS: QUETIAPINE FUMARATE 25 MG TABLET PO SCH ×2 (10:42→21:19)
[2019-05-19] MEDS: LISINOPRIL 10 MG TABLET PO SCH (10:42)
[2019-05-19] MEDS: ENOXAPARIN SODIUM INJ 40 MG/0.4 ML DISP.SYRIN SUBCUT SCH (10:43)
[2019-05-19] MEDS: DOCUSATE SODIUM 100 MG CAPSULE PO SCH (10:43)
[2019-05-19] MEDS: NYSTATIN TOPICAL POWDER 15 GM TP SCH (11:20)
[2019-05-19] MEDS: CEFTRIAXONE 1 GM/D5W RTU 1 GM/50 ML RTUPB IV SCH (11:21)
[2019-05-19] MEDS: AZITHROMYCIN 250 MG TABLET PO SCH (12:45)
[2019-05-19] MEDS ORDERED: POTASSIUM CHLORIDE 10 MEQ TABLET.ER PO ONE (15:38)
--- NOTE | 2019-05-19 15:46 | PDOC PROGRESS REPORT ---
Subjective Progress Note for:: 05/19/19 Subjective:: Patient is awake and alert today and able to answer questions Reason For Visit: PNEUMONIA Physical Exam Vital Signs: Temp Pulse Resp BP Pulse Ox 98.2 F 82 18 172/86 H 93 05/19/19 08:42 05/19/19 10:52 05/19/19 10:52 05/19/19 08:42 05/19/19 10:52 Intake & Output 05/18/19 05/19/19 05/20/19 06:59 06:59 06:59 Intake Total 350 991 Balance 350 991 Weight 119.2 kg 115 kg General appearance: PRESENT: no acute distress, disheveled, well-nourished Head exam: PRESENT: atraumatic, normocephalic Eye exam: PRESENT: conjunctiva pink. ABSENT: scleral icterus Mouth exam: PRESENT: tongue midline Neck exam: ABSENT: carotid bruit, JVD, lymphadenopathy, thyromegaly Respiratory exam: PRESENT: decreased breath sounds, rhonchi, unlabored. ABSENT: rales, wheezes Cardiovascular exam: PRESENT: RRR, +S1, +S2. ABSENT: diastolic murmur, rubs, systolic murmur GI/Abdominal exam: PRESENT: normal bowel sounds, soft. ABSENT: distended, guarding, mass, organolmegaly, rebound, tenderness Rectal exam: PRESENT: deferred Extremities exam: PRESENT: full ROM. ABSENT: calf tenderness, clubbing, pedal e arjun Neurological exam: PRESENT: alert, awake, oriented to person, oriented to place, oriented to time, oriented to situation, CN II-XII grossly intact. ABSENT: motor sensory deficit Psychiatric exam: PRESENT: appropriate affect, normal mood. ABSENT: homicidal ideation, suicidal ideation Skin exam: PRESENT: dry, intact, warm. ABSENT: cyanosis, rash Results Laboratory Results: 05/19/19 04:51 05/19/19 04:51 05/19/19 05/19/19 04:51 04:51 WBC 10.4 RBC 2.46 L Hgb 8.0 L Hct 23.7 L MCV 96 MCH 32.6 MCHC 33.8 RDW 15.6 H Plt Count 257 Seg Neutrophils % 73.0 Sodium 142.5 Potassium 3.4 L Chloride 106 Carbon Dioxide 33 H Anion Gap 4 L BUN 21 H Creatinine 2.13 H Est GFR ( Amer) 28 L Glucose 96 Calcium 7.6 L Impressions: Chest X-Ray 05/18/19 05:25 IMPRESSION: Possible developing bilateral pneumonia. Head CT 05/18/19 05:25 IMPRESSION: 1. No acute intracranial abnormality by CT criteria. This exam was performed according to our departmental dose-optimization program, which includes automated exposure control, adjustment of the mA and/or kV according to patient size and/or use of iterative reconstruction technique. Assessment and Plan - Diagnosis (1) Acute alteration in mental status Is this a current diagnosis for this admission?: Yes Plan: Although patient presented with an change in mental status I was really not able to evaluate her as she had received Ativan prior to my examination. It is unknown what her baseline is 05/18 patient is awake and alert and oriented today when I saw her. My initial evaluation yesterday she had been sedated I was unable to ascertain if patient had an acute change in mental status as she was unable to answer any questions after sedatives. At this point since my interaction with her reveals a patient that awake and alert and oriented I am unable to see if she had an acute encephalopathy on presentation. She was clearly sedated at my exam on May 17 (2) Morbid obesity with BMI of 45.0-49.9, adult Is this a current diagnosis for this admission?: Yes (3) Pneumonia Qualifiers: Pneumonia type: due to unspecified organism Laterality: bilateral Lung location: unspecified part of lung Qualified Code(s): J18.9 - Pneumonia, unspecified organism Is this a current diagnosis for this admission?: Yes Plan: Chest x-ray is suggested bibasilar airspace disease. Patient will be placed on ceftriaxone and Zithromax and will de-escalate as appropriate 05/18 we will continue with empiric ceftriaxone and Zithromax (4) Anemia, chronic disease Is this a current diagnosis for this admission?: Yes Plan: Hemoglobin remained stable at 8 (5) CKD (chronic kidney disease), stage III Is this a current diagnosis for this admission?: Yes Plan: Chronic kidney disease with kidney function at baseline however will place on some cautious IV fluid 05/18 kidney function is actually a little bit better today we will continue with cautious IV fluid (6) Diabetes mellitus type 2 in obese Is this a current diagnosis for this admission?: Yes (7) Urinary tract infection Qualifiers: Urinary tract infection type: site unspecified Is this a current diagnosis for this admission?: Yes Plan: She rarely has 8 WBCs in the urinalysis and unable to verify if she has symptoms. He is on ceftriaxone for pneumonia. Urine culture is not available at this time (8) Hypokalemia Is this a current diagnosis for this admission?: Yes Plan: Replace - Plan Summary Summary: As per computer records she was a DO NOT INTUBATE during her last admission and I have made a DO NOT INTUBATE also at this time. I am unable to verify this to her mental status being altered
[2019-05-19] MEDS ORDERED: METOPROLOL SUCCINATE 50 MG TAB.SR.24H PO ONE (21:00)
[2019-05-20] MEDS: NORMAL SALINE 1000 ML 1,000 ML IV PRN ×2 (00:53→21:50)
[2019-05-20 08:25] LABS: ABSOLUTE BASOPHILS # (AUTO) 0.1 10^3/uL (0.0-0.2); ABSOLUTE EOSINOPHILS # (AUTO) 0.1 10^3/uL (0.0-0.6); ABSOLUTE LYMPHOCYTES (AUTO) 1.3 10^3/uL (0.5-4.7); ABSOLUTE MONOCYTES (AUTO) 1.2 10^3/uL (0.1-1.4); ABSOLUTE NEUT (AUTO) 6.8 10^3/uL (1.7-8.2); BASOPHILS % (AUTO) 1.1 % (0-2); EOSINOPHILS % (AUTO) 1.2 % (0-6); HEMATOCRIT 23.7 % (36.0-47.0); LYMPHOCYTES % (AUTO) 13.3 % (13-45); MEAN CORPUSCULAR HEMOGLOBIN 32.6 pg (27.0-33.4); MEAN CORPUSCULAR HGB CONC 33.7 g/dL (32.0-36.0); MEAN CORPUSCULAR VOLUME 97 fl (80-97); MONOCYTES % (AUTO) 12.8 % (3-13); PLATELET COUNT 282 10^3/uL (150-450); RED BLOOD COUNT 2.46 10^6/uL (3.72-5.28); SEGMENTED NEUTROPHILS % (AUTO) 71.6 % (42-78); TOTAL CELLS COUNTED % (AUTO) 100 %; WHITE BLOOD COUNT 9.4 10^3/uL (4.0-10.5)
[2019-05-20 08:51] LABS: ANION GAP 5 (5-19); BLOOD UREA NITROGEN 24 mg/dL (7-20); CALCIUM 7.7 mg/dL (8.4-10.2); CARBON DIOXIDE 32 mmol/L (22-30); CHLORIDE 105 mmol/L (98-107); GLUCOSE 139 mg/dL (75-110)
[2019-05-20] MEDS: INSULIN REG, HUMAN 100 UNIT/ML 3 ML VIAL (PYX) SUBCUT SCH ×4 (08:59→21:52)
[2019-05-20] MEDS: LISINOPRIL 10 MG TABLET PO SCH (09:17)
[2019-05-20] MEDS: ENOXAPARIN SODIUM INJ 40 MG/0.4 ML DISP.SYRIN SUBCUT SCH (09:18)
[2019-05-20] MEDS: AMLODIPINE BESYLATE 10 MG TABLET PO SCH (09:18)
[2019-05-20] MEDS: QUETIAPINE FUMARATE 25 MG TABLET PO SCH ×2 (09:18→21:52)
[2019-05-20] MEDS: METOPROLOL SUCCINATE 50 MG TAB.SR.24H PO SCH (09:18)
[2019-05-20] MEDS: CEFTRIAXONE 1 GM/D5W RTU 1 GM/50 ML RTUPB IV SCH (09:19)
[2019-05-20] MEDS: DOCUSATE SODIUM 100 MG CAPSULE PO SCH (09:41)
[2019-05-20] MEDS ORDERED: CLONIDINE 0.2 MG/24 HR PATCH.TDWK TD SCH (10:00)
[2019-05-20] MEDS: NYSTATIN TOPICAL POWDER 15 GM TP SCH (11:01)
[2019-05-20] MEDS: AZITHROMYCIN 250 MG TABLET PO SCH (12:08)
--- NOTE | 2019-05-20 17:38 | PDOC PROGRESS REPORT ---
Subjective Progress Note for:: 05/20/19 Subjective:: Patient says she is breathing better today. She is complaining of back pain she has an old healed wound Reason For Visit: PNEUMONIA Physical Exam Vital Signs: Temp Pulse Resp BP Pulse Ox 98.1 F 70 24 H 161/69 H 91 L 05/20/19 12:49 05/20/19 12:49 05/20/19 12:49 05/20/19 12:49 05/20/19 12:49 Intake & Output 05/19/19 05/20/19 05/21/19 06:59 06:59 06:59 Intake Total 350 3747 502 Output Total 0 Balance 350 3747 502 Weight 115 kg 116.7 kg General appearance: PRESENT: no acute distress Head exam: PRESENT: atraumatic Eye exam: PRESENT: conjunctival injection Respiratory exam: PRESENT: rhonchi, unlabored. ABSENT: wheezes GI/Abdominal exam: PRESENT: normal bowel sounds, soft. ABSENT: tenderness Rectal exam: PRESENT: deferred Musculoskeletal exam: PRESENT: ambulatory Neurological exam: PRESENT: alert, awake, oriented to person, oriented to time Skin exam: PRESENT: abrasion Results Laboratory Results: 05/20/19 08:15 05/20/19 08:15 05/20/19 05/20/19 08:15 08:15 WBC 9.4 RBC 2.46 L Hgb 8.0 L Hct 23.7 L MCV 97 MCH 32.6 MCHC 33.7 RDW 16.0 H Plt Count 282 Seg Neutrophils % 71.6 Sodium 141.6 Potassium 4.0 Chloride 105 Carbon Dioxide 32 H Anion Gap 5 BUN 24 H Creatinine 2.17 H Est GFR ( Amer) 28 L Glucose 139 H Calcium 7.7 L Impressions: Chest X-Ray 05/18/19 05:25 IMPRESSION: Possible developing bilateral pneumonia. Head CT 05/18/19 05:25 IMPRESSION: 1. No acute intracranial abnormality by CT criteria. This exam was performed according to our departmental dose-optimization program, which includes automated exposure control, adjustment of the mA and/or kV according to patient size and/or use of iterative reconstruction technique. Assessment and Plan - Diagnosis (1) Acute alteration in mental status Is this a current diagnosis for this admission?: Yes (2) Morbid obesity with BMI of 45.0-49.9, adult Is this a current diagnosis for this admission?: Yes (3) Pneumonia Qualifiers: Pneumonia type: due to unspecified organism Laterality: bilateral Lung location: unspecified part of lung Qualified Code(s): J18.9 - Pneumonia, unspecified organism Is this a current diagnosis for this admission?: Yes (4) Anemia, chronic disease Is this a current diagnosis for this admission?: Yes (5) CKD (chronic kidney disease), stage III Is this a current diagnosis for this admission?: Yes (6) Diabetes mellitus type 2 in obese Is this a current diagnosis for this admission?: Yes (7) Urinary tract infection Qualifiers: Urinary tract infection type: site unspecified Is this a current diagnosis for this admission?: Yes (8) Hypokalemia Is this a current diagnosis for this admission?: Yes - Plan Summary Summary: As per computer records she was a DO NOT INTUBATE during her last admission and I have made a DO NOT INTUBATE also at this time. I am unable to verify this to her mental status being altered Physical therapy evaluation will be obtained. Patient is not any suspicion for any coronavirus or covid 19 infection Hemoglobin is about the same at around 8 and her kidney function is stable with a creatinine of 2.17. She however is physically weak and so will await physical therapy evaluation prior to discharge. She is otherwise hemodynamically stable
[2019-05-21] MEDS ORDERED: LORAZEPAM INJ 2 MG/1 ML VIAL ONE (03:50)
[2019-05-21] MEDS ORDERED: LORAZEPAM INJ 2 MG/1 ML VIAL IV ONE (04:00)
[2019-05-21] MEDS: INSULIN REG, HUMAN 100 UNIT/ML 3 ML VIAL (PYX) SUBCUT SCH ×4 (10:24→21:25)
[2019-05-21] MEDS: DOCUSATE SODIUM 100 MG CAPSULE PO SCH (10:28)
[2019-05-21] MEDS: ENOXAPARIN SODIUM INJ 40 MG/0.4 ML DISP.SYRIN SUBCUT SCH (10:41)
[2019-05-21] MEDS: NYSTATIN TOPICAL POWDER 15 GM TP SCH (10:42)
[2019-05-21] MEDS: CEFTRIAXONE 1 GM/D5W RTU 1 GM/50 ML RTUPB IV SCH (10:43)
[2019-05-21] MEDS: LISINOPRIL 10 MG TABLET PO SCH (10:46)
[2019-05-21] MEDS: METOPROLOL SUCCINATE 50 MG TAB.SR.24H PO SCH (10:47)
[2019-05-21] MEDS: AMLODIPINE BESYLATE 10 MG TABLET PO SCH (10:47)
[2019-05-21] MEDS: QUETIAPINE FUMARATE 25 MG TABLET PO SCH ×2 (10:47→21:25)
[2019-05-21] MEDS: AZITHROMYCIN 250 MG TABLET PO SCH (12:59)
[2019-05-21] MEDS: NORMAL SALINE 1000 ML 1,000 ML IV PRN (13:02)
--- NOTE | 2019-05-21 13:33 | PDOC PROGRESS REPORT ---
Subjective Progress Note for:: 05/21/19 Subjective:: Patient says she feels better today. She slept better and breathing is improved Reason For Visit: PNEUMONIA Physical Exam Vital Signs: Temp Pulse Resp BP Pulse Ox 98.7 F 63 16 155/86 H 97 05/21/19 08:09 05/21/19 08:09 05/21/19 08:09 05/21/19 08:09 05/21/19 08:09 Intake & Output 05/20/19 05/21/19 05/22/19 06:59 06:59 06:59 Intake Total 3747 1502 1050 Output Total 0 2 Balance 3747 1500 1050 Weight 116.7 kg 116.5 kg General appearance: PRESENT: no acute distress, disheveled Neck exam: ABSENT: carotid bruit, JVD Respiratory exam: PRESENT: decreased breath sounds, rhonchi Cardiovascular exam: PRESENT: RRR, +S1, +S2 GI/Abdominal exam: PRESENT: soft. ABSENT: tenderness Rectal exam: PRESENT: deferred Extremities exam: ABSENT: calf tenderness Neurological exam: PRESENT: alert, awake, oriented to person, oriented to time, oriented to situation Results Laboratory Results: 05/20/19 08:15 05/20/19 08:15 Impressions: Chest X-Ray 05/18/19 05:25 IMPRESSION: Possible developing bilateral pneumonia. Head CT 05/18/19 05:25 IMPRESSION: 1. No acute intracranial abnormality by CT criteria. This exam was performed according to our departmental dose-optimization program, which includes automated exposure control, adjustment of the mA and/or kV according to patient size and/or use of iterative reconstruction technique. Assessment and Plan - Diagnosis (1) Acute alteration in mental status Is this a current diagnosis for this admission?: Yes Plan: Although patient presented with an change in mental status I was really not able to evaluate her as she had received Ativan prior to my examination. It is unknown what her baseline is 05/18 patient is awake and alert and oriented today when I saw her. My initial evaluation yesterday she had been sedated I was unable to ascertain if patient had an acute change in mental status as she was unable to answer any questions after sedatives. At this point since my interaction with her reveals a patient that awake and alert and oriented I am unable to see if she had an acute encephalopathy on presentation. She was clearly sedated at my exam on May 1705/20 patient's mental status has improved. It is possible she had a metabolic encephalopathy secondary to acute infection. She is likely close to her baseline at this time (2) Morbid obesity with BMI of 45.0-49.9, adult Is this a current diagnosis for this admission?: Yes (3) Pneumonia Qualifiers: Pneumonia type: due to unspecified organism Laterality: bilateral Lung location: unspecified part of lung Qualified Code(s): J18.9 - Pneumonia, unspecified organism Is this a current diagnosis for this admission?: Yes Plan: Chest x-ray is suggested bibasilar airspace disease. Patient will be placed on ceftriaxone and Zithromax and will de-escalate as appropriate 05/20 we will continue with empiric ceftriaxone and Zithromax (4) Anemia, chronic disease Is this a current diagnosis for this admission?: Yes (5) CKD (chronic kidney disease), stage III Is this a current diagnosis for this admission?: Yes Plan: Chronic kidney disease with kidney function at baseline however will place on some cautious IV fluid 05/20 kidney function is improving we will continue with cautious IV fluid (6) Diabetes mellitus type 2 in obese Is this a current diagnosis for this admission?: Yes (7) Urinary tract infection Qualifiers: Urinary tract infection type: site unspecified Is this a current diagnosis for this admission?: Yes Plan: We will continue with empiric antibiotics (8) Hypokalemia Is this a current diagnosis for this admission?: Yes Plan: Resolved - Plan Summary Summary: As per computer records she was a DO NOT INTUBATE during her last admission and I have made a DO NOT INTUBATE also at this time. I am unable to verify this to her mental status being altered Physical therapy evaluation will be obtained. Patient is not any suspicion for any coronavirus or covid 19 infection Hemoglobin is about the same at around 8 and her kidney function is stable with a creatinine of 2.17. She however is physically weak and so will await physical therapy evaluation prior to discharge. She is otherwise hemodynamically stable
[2019-05-22] MEDS: NORMAL SALINE 1000 ML 1,000 ML IV PRN ×2 (00:19→14:13)
[2019-05-22 06:21] LABS: ABSOLUTE BASOPHILS # (AUTO) 0.1 10^3/uL (0.0-0.2); ABSOLUTE EOSINOPHILS # (AUTO) 0.1 10^3/uL (0.0-0.6); ABSOLUTE LYMPHOCYTES (AUTO) 1.6 10^3/uL (0.5-4.7); ABSOLUTE MONOCYTES (AUTO) 0.8 10^3/uL (0.1-1.4); ABSOLUTE NEUT (AUTO) 2.9 10^3/uL (1.7-8.2); BASOPHILS % (AUTO) 1.9 % (0-2); EOSINOPHILS % (AUTO) 2.7 % (0-6); HEMATOCRIT 25.2 % (36.0-47.0); HEMOGLOBIN 8.4 g/dL (12.0-15.5); LYMPHOCYTES % (AUTO) 28.1 % (13-45); MEAN CORPUSCULAR HGB CONC 33.6 g/dL (32.0-36.0); MEAN CORPUSCULAR VOLUME 95 fl (80-97); MONOCYTES % (AUTO) 14.8 % (3-13); PLATELET COUNT 296 10^3/uL (150-450); RED BLOOD COUNT 2.64 10^6/uL (3.72-5.28); RED CELL DISTRIBUTION WIDTH 15.5 % (11.5-14.0); SEGMENTED NEUTROPHILS % (AUTO) 52.5 % (42-78); TOTAL CELLS COUNTED % (AUTO) 100 %; WHITE BLOOD COUNT 5.5 10^3/uL (4.0-10.5)
[2019-05-22 06:43] LABS: BLOOD UREA NITROGEN 23 mg/dL (7-20); CALCIUM 7.6 mg/dL (8.4-10.2); CARBON DIOXIDE 28 mmol/L (22-30); CHLORIDE 109 mmol/L (98-107); GLUCOSE 84 mg/dL (75-110); POTASSIUM 4.2 mmol/L (3.6-5.0)
[2019-05-22 06:58] LABS: ANION GAP 3 (5-19)
[2019-05-22] MEDS: INSULIN REG, HUMAN 100 UNIT/ML 3 ML VIAL (PYX) SUBCUT SCH ×4 (07:46→21:48)
[2019-05-22] MEDS: QUETIAPINE FUMARATE 25 MG TABLET PO SCH ×2 (10:13→21:50)
[2019-05-22] MEDS: CEFTRIAXONE 1 GM/D5W RTU 1 GM/50 ML RTUPB IV SCH (10:18)
[2019-05-22] MEDS: ENOXAPARIN SODIUM INJ 40 MG/0.4 ML DISP.SYRIN SUBCUT SCH (10:18)
[2019-05-22] MEDS: LISINOPRIL 10 MG TABLET PO SCH (10:19)
[2019-05-22] MEDS: AMLODIPINE BESYLATE 10 MG TABLET PO SCH (10:19)
[2019-05-22] MEDS: METOPROLOL SUCCINATE 50 MG TAB.SR.24H PO SCH (10:19)
[2019-05-22] MEDS: DOCUSATE SODIUM 100 MG CAPSULE PO SCH (10:19)
[2019-05-22] MEDS: NYSTATIN TOPICAL POWDER 15 GM TP SCH (10:21)
[2019-05-22] MEDS: AZITHROMYCIN 250 MG TABLET PO SCH (11:57)
[2019-05-22] MEDS: HYDRALAZINE HCL 25 MG TABLET PO SCH ×2 (13:29→21:50)
--- NOTE | 2019-05-22 13:33 | PDOC PROGRESS REPORT ---
Subjective Progress Note for:: 05/22/19 Subjective:: Patient is somewhat drowsy today Reason For Visit: PNEUMONIA Physical Exam Vital Signs: Temp Pulse Resp BP Pulse Ox 98.2 F 71 17 162/79 H 97 05/22/19 11:07 05/22/19 11:07 05/22/19 11:07 05/22/19 11:07 05/22/19 11:07 Intake & Output 05/21/19 05/22/19 05/23/19 06:59 06:59 06:59 Intake Total 1502 1896 50 Output Total 2 Balance 1500 1896 50 Weight 116.5 kg 116.6 kg General appearance: PRESENT: no acute distress, other - sleeping Head exam: PRESENT: atraumatic Respiratory exam: PRESENT: clear to auscultation vadim, rhonchi, unlabored. ABSENT: wheezes Cardiovascular exam: PRESENT: irregular rhythm, +S1, +S2 Rectal exam: PRESENT: deferred Neurological exam: PRESENT: other - sleeping, arousable Results Laboratory Results: 05/22/19 05:07 05/22/19 05:07 05/22/19 05/22/19 05:07 05:07 WBC 5.5 RBC 2.64 L Hgb 8.4 L Hct 25.2 L MCV 95 MCH 32.0 MCHC 33.6 RDW 15.5 H Plt Count 296 Seg Neutrophils % 52.5 Sodium 140.1 Potassium 4.2 Chloride 109 H Carbon Dioxide 28 Anion Gap 3 L BUN 23 H Creatinine 1.74 H Est GFR ( Amer) 36 L Glucose 84 Calcium 7.6 L Impressions: Chest X-Ray 05/18/19 05:25 IMPRESSION: Possible developing bilateral pneumonia. Head CT 05/18/19 05:25 IMPRESSION: 1. No acute intracranial abnormality by CT criteria. This exam was performed according to our departmental dose-optimization program, which includes automated exposure control, adjustment of the mA and/or kV according to patient size and/or use of iterative reconstruction technique. Assessment and Plan - Diagnosis (1) Acute alteration in mental status Is this a current diagnosis for this admission?: Yes (2) Morbid obesity with BMI of 45.0-49.9, adult Is this a current diagnosis for this admission?: Yes (3) Pneumonia Qualifiers: Pneumonia type: due to unspecified organism Laterality: bilateral Lung location: unspecified part of lung Qualified Code(s): J18.9 - Pneumonia, unspecified organism Is this a current diagnosis for this admission?: Yes (4) Anemia, chronic disease Is this a current diagnosis for this admission?: Yes (5) CKD (chronic kidney disease), stage III Is this a current diagnosis for this admission?: Yes (6) Diabetes mellitus type 2 in obese Is this a current diagnosis for this admission?: Yes (7) Urinary tract infection Qualifiers: Urinary tract infection type: site unspecified Is this a current diagnosis for this admission?: Yes (8) Hypokalemia Is this a current diagnosis for this admission?: Yes (9) Hypertension Qualifiers: Hypertension type: essential hypertension Qualified Code(s): I10 - Essential (primary) hypertension Is this a current diagnosis for this admission?: Yes Plan: Her blood pressure is poorly controlled. We will add hydralazine to her regimen - Plan Summary Summary: As per computer records she was a DO NOT INTUBATE during her last admission and I have made a DO NOT INTUBATE also at this time. I am unable to verify this to her mental status being altered Physical therapy evaluation will be obtained. Patient is not any suspicion for any coronavirus or covid 19 infection Hemoglobin is about the same at around 8 and her kidney function is stable with a creatinine of 2.17. She however is physically weak and so will await physical therapy evaluation prior to discharge. She is otherwise hemodynamically stable 05/21 patient is hemodynamically stable however it appears her mental status still waxes and wane. She is sleeping now and actually unable to obtain much information from her. It appears when she was seen by PT yesterday very little was also achieved as she was sleepy. We will continue to monitor and reevaluate in a.m.
[2019-05-23 00:21] VITALS: BP 168/72
[2019-05-23] MEDS: NORMAL SALINE 1000 ML 1,000 ML IV PRN (03:34)
[2019-05-23] MEDS: INSULIN REG, HUMAN 100 UNIT/ML 3 ML VIAL (PYX) SUBCUT SCH ×2 (07:33→12:37)
[2019-05-23] MEDS: CEFTRIAXONE 1 GM/D5W RTU 1 GM/50 ML RTUPB IV SCH (09:13)
[2019-05-23] MEDS: ENOXAPARIN SODIUM INJ 40 MG/0.4 ML DISP.SYRIN SUBCUT SCH (09:14)
[2019-05-23] MEDS: LISINOPRIL 10 MG TABLET PO SCH (09:14)
[2019-05-23] MEDS: DOCUSATE SODIUM 100 MG CAPSULE PO SCH (09:14)
[2019-05-23] MEDS: AMLODIPINE BESYLATE 10 MG TABLET PO SCH (09:14)
[2019-05-23] MEDS: METOPROLOL SUCCINATE 50 MG TAB.SR.24H PO SCH (09:14)
[2019-05-23] MEDS: HYDRALAZINE HCL 25 MG TABLET PO SCH (09:15)
[2019-05-23] MEDS: NYSTATIN TOPICAL POWDER 15 GM TP SCH (09:16)
[2019-05-23] MEDS: QUETIAPINE FUMARATE 25 MG TABLET PO SCH (09:16)
[2019-05-23] MEDS: AZITHROMYCIN 250 MG TABLET PO SCH (12:05)
--- NOTE | 2019-05-23 12:30 | PDOC TRANSFER SUMMARY ---
Impression - Admit/DC Date/PCP Admission Date/Primary Care Provider: 05/18/19 10:00 NATACHA CORMIER MD Discharge Date: 05/23/19 - Discharge Diagnosis (1) Pneumonia Is this a current diagnosis for this admission?: Yes (2) Anemia, chronic disease Is this a current diagnosis for this admission?: Yes (3) Acute alteration in mental status Is this a current diagnosis for this admission?: Yes (4) Morbid obesity with BMI of 45.0-49.9, adult Is this a current diagnosis for this admission?: Yes (5) CKD (chronic kidney disease), stage III Is this a current diagnosis for this admission?: Yes (6) Diabetes mellitus type 2 in obese Is this a current diagnosis for this admission?: Yes (7) Hypokalemia Is this a current diagnosis for this admission?: Yes (8) Hypertension Is this a current diagnosis for this admission?: Yes (9) Chronic respiratory failure Is this a current diagnosis for this admission?: Yes - Additional Information Resuscitation Status: Do Not Intubate - As per computer records, unable to confirm with patient Discharge Diet: Cardiac, Diabetic Discharge Activity: Activity As Tolerated Referrals: [facility] [Outside] Prescriptions: Hydralazine HCl [Apresoline 25 mg Tablet] 25 mg PO Q8 #100 tablet Cefuroxime Axetil [Ceftin 500 mg Tablet] 1 tab PO BID #10 tablet Home Medications: Lisinopril [Zestril] 40 mg PO DAILY 05/11/19 Ondansetron [Zofran Odt 4 mg Tablet] 4 mg PO Q8HP PRN 05/11/19 Potassium Chloride [Klor-Con 10 Meq Tablet ER] 20 meq PO DAILY 05/11/19 Amlodipine Besylate [Norvasc 10 mg Tablet] 10 mg PO DAILY #30 tablet 05/13/19 Clonidine [Catapres-Tts 2 (0.2 mg/24 Hr) Transderm Ptch] 1 each TD Fr@10 #4 patch.tdwk 05/13/19 Nystatin [Mycostatin Topical Powder 15 gm] 1 applic TP DAILY MDD UNDER BREAST 05/18/19 Quetiapine Fumarate [Seroquel 25 mg Tablet] 25 mg PO Q12 MDD STOP 05/2005/18/19 Quetiapine Fumarate [Seroquel 25 mg Tablet] 50 mg PO Q8HP PRN 05/18/19 Cefuroxime Axetil [Ceftin 500 mg Tablet] 1 tab PO BID #10 tablet 05/23/19 Hydralazine HCl [Apresoline 25 mg Tablet] 25 mg PO Q8 #100 tablet 05/23/19 Metoprolol Succinate [Toprol Xl 25 mg Tab.sr] 100 mg PO DAILY #0 05/23/19 History of Present Illiness History of Present Illness: FINA HERNÁNDEZ is a 63 year old female Please note this information is obtained solely from the computer records as patient was unable to provide any information to me. She was found to have an acute change in mental status. She was found to have a leukocytosis with possible pneumonia and so was started on intravenous antibiotics. EKG shows normal sinus rhythm with premature atrial complexes. She was also found to be anemic with hemoglobin at 8.1 today although at baseline appears to fluctuate between 7 and 9. Kidney function is also noted to be between the range of about 1.7 about 5 days ago to 4.27 about 5 weeks ago. Creatinine today is currently at 2.3 with a BUN of 22 which is actually much lower than it has been in recent history. Hospital Course Hospital Course: Patient was admitted with difficulty breathing and shortness of breath. She also had an altered mental status. She was later found to have pneumonia which likely explains her change in mental status which is then thought to be due to metabolic encephalopathy. Patient was started on intravenous antibiotics and she has continued to improve while in hospital. Her blood pressure was found to be poorly controlled and her medications were adjusted. She will need further outpatient adjustment to ensure optimal blood pressure control. Patient also was in ISAAC superimposed upon CKD stage IV. Her creatinine did improve from 2.2- 1.74 at discharge. She also has chronic stable anemia with hemoglobin of about 8. No acute intervention was done about this and this should be followed as outpatient for further management. There is a history of atrial fibrillation in the chart although patient was in sinus rhythm while in hospital. She is also not on any anticoagulants so it is unclear if she really does have atrial fibrillation. Patient needs rehabilitation as she is weak and so she has been discharged back to rehabilitation facility Patient was thought to have a UTI but this was ultimately ruled out Physical Exam Vital Signs: Temp Pulse Resp BP Pulse Ox 98.1 F 73 18 168/72 H 93 05/23/19 00:02 05/23/19 00:02 05/23/19 00:02 05/23/19 00:02 05/23/19 00:02 Intake & Output 05/22/19 05/23/19 05/24/19 06:59 06:59 06:59 Intake Total 1895 2249 50 Balance 1895 2249 50 Weight 116.6 kg 116.2 kg General appearance: PRESENT: no acute distress, morbidly obese Head exam: PRESENT: atraumatic Eye exam: PRESENT: PERRLA Neck exam: ABSENT: JVD, tenderness Respiratory exam: PRESENT: crackles, rhonchi, unlabored. ABSENT: accessory muscle use, wheezes Cardiovascular exam: PRESENT: RRR, +S1, +S2 GI/Abdominal exam: PRESENT: normal bowel sounds, soft. ABSENT: tenderness Rectal exam: PRESENT: deferred Neurological exam: PRESENT: alert, awake, oriented to person, oriented to place, oriented to time, oriented to situation. ABSENT: motor sensory deficit Results Laboratory Results: WBC 5.5 10^3/uL (4.0-10.5) 05/22/19 05:07 RBC 2.64 10^6/uL (3.72-5.28) L 05/22/19 05:07 Hgb 8.4 g/dL (12.0-15.5) L 05/22/19 05:07 Hct 25.2 % (36.0-47.0) L 05/22/19 05:07 MCV 95 fl (80-97) 05/22/19 05:07 MCH 32.0 pg (27.0-33.4) 05/22/19 05:07 MCHC 33.6 g/dL (32.0-36.0) 05/22/19 05:07 RDW 15.5 % (11.5-14.0) H 05/22/19 05:07 Plt Count 296 10^3/uL (150-450) 05/22/19 05:07 Lymph % (Auto) 28.1 % (13-45) 05/22/19 05:07 [place] % (Auto) 14.8 % (3-13) H 05/22/19 05:07 Eos % (Auto) 2.7 % (0-6) 05/22/19 05:07 Baso % (Auto) 1.9 % (0-2) 05/22/19 05:07 Absolute Neuts (auto) 2.9 10^3/uL (1.7-8.2) 05/22/19 05:07 Absolute Lymphs (auto) 1.6 10^3/uL (0.5-4.7) 05/22/19 05:07 Absolute Monos (auto) 0.8 10^3/uL (0.1-1.4) 05/22/19 05:07 Absolute Eos (auto) 0.1 10^3/uL (0.0-0.6) 05/22/19 05:07 Absolute Basos (auto) 0.1 10^3/uL (0.0-0.2) 05/22/19 05:07 Total Counted 100 05/18/19 03:31 Seg Neutrophils % 52.5 % (42-78) 05/22/19 05:07 Seg Neuts % (Manual) 91 % (42-78) H 05/18/19 03:31 Band Neutrophils % 1 % (3-5) L 05/18/19 03:31 Lymphocytes % (Manual) 5 % (13-45) L 05/18/19 03:31 Monocytes % (Manual) 2 % (3-13) L 05/18/19 03:31 Eosinophils % (Manual) 1 % (0-6) 05/18/19 03:31 Basophils % (Manual) 0 % (0-2) 05/18/19 03:31 Abs Neuts (Manual) 13.7 10^3/uL (1.7-8.2) H 05/18/19 03:31 Abs Lymphs (Manual) 0.7 10^3/uL (0.5-4.7) 05/18/19 03:31 Abs Monocytes (Manual) 0.3 10^3/uL (0.1-1.4) 05/18/19 03:31 Absolute Eos (Manual) 0.1 10^3/uL (0.0-0.6) 05/18/19 03:31 Abs Basophils (Manual) 0.0 10^3/uL (0.0-0.2) 05/18/19 03:31 Toxic Granulation SLIGHT 05/18/19 03:31 Platelet Comment ADEQUATE 05/18/19 03:31 Anisocytosis SLIGHT 05/18/19 03:31 Schistocytes SLIGHT 05/18/19 03:31 VBG pH 7.40 (7.30-7.42) 05/18/19 03:31 VBG pCO2 49.4 mmHg (35-63) 05/18/19 03:31 VBG HCO3 29.8 mmol/L (20-32) 05/18/19 03:31 VBG Base Excess 4.5 mmol/L 05/18/19 03:31 Sodium 140.1 mmol/L (137-145) 05/22/19 05:07 Potassium 4.2 mmol/L (3.6-5.0) 05/22/19 05:07 Chloride 109 mmol/L (98-107) H 05/22/19 05:07 Carbon Dioxide 28 mmol/L (22-30) 05/22/19 05:07 Anion Gap 3 (5-19) L 05/22/19 05:07 BUN 23 mg/dL (7-20) H 05/22/19 05:07 Creatinine 1.74 mg/dL (0.52-1.25) H 05/22/19 05:07 Est GFR ( Amer) 36 (>60) L 05/22/19 05:07 Est GFR (MDRD) Non-Af 29 (>60) L 05/22/19 05:07 Glucose 84 mg/dL (75-110) 05/22/19 05:07 POC Glucose 122 mg/dL (70-110) H 05/23/19 11:53 Lactic Acid 0.9 mmol/L (0.7-2.1) 05/18/19 03:31 Calcium 7.6 mg/dL (8.4-10.2) L 05/22/19 05:07 Magnesium 1.5 mg/dL (1.6-2.3) L 05/18/19 03:31 Total Bilirubin 0.5 mg/dL (0.2-1.3) 05/18/19 03:31 Direct Bilirubin 0.2 mg/dL (0.0-0.4) 05/18/19 03:31 Neonat Total Bilirubin Not Reportable 05/18/19 03:31 Neonat Direct Bilirubin Not Reportable 05/18/19 03:31 Neonat Indirect Bili Not Reportable 05/18/19 03:31 AST 39 U/L (14-36) H 05/18/19 03:31 ALT 21 U/L (<35) 05/18/19 03:31 Alkaline Phosphatase 103 U/L (38-126) 05/18/19 03:31 Total Protein 5.3 g/dL (6.3-8.2) L 05/18/19 03:31 Albumin 2.9 g/dL (3.5-5.0) L 05/18/19 03:31 Urine Color YELLOW 05/18/19 08:45 Urine Appearance CLEAR 05/18/19 08:45 Urine pH 7.0 (5.0-9.0) 05/18/19 08:45 Ur Specific [place] 1.012 05/18/19 08:45 Urine Protein >=500 mg/dL (NEGATIVE) H 05/18/19 08:45 Urine Glucose (UA) >=500 mg/dL (NEGATIVE) H 05/18/19 08:45 Urine Ketones TRACE mg/dL (NEGATIVE) H 05/18/19 08:45 Urine Blood SMALL (NEGATIVE) H 05/18/19 08:45 Urine Nitrite NEGATIVE (NEGATIVE) 05/18/19 08:45 Urine Bilirubin NEGATIVE (NEGATIVE) 05/18/19 08:45 Urine Urobilinogen NEGATIVE mg/dL (<2.0) 05/18/19 08:45 Ur Leukocyte Esterase NEGATIVE (NEGATIVE) 05/18/19 08:45 Urine WBC (Auto) 8 /HPF 05/18/19 08:45 Urine RBC (Auto) 1 /HPF 05/18/19 08:45 U Hyaline Cast (Auto) 3 /LPF 05/18/19 08:45 Urine Bacteria (Auto) TRACE /HPF 05/18/19 08:45 Squamous Epi Cells Auto 2 /HPF 05/18/19 08:45 Urine Mucus (Auto) RARE /LPF 05/18/19 08:45 Urine Ascorbic Acid NEGATIVE (NEGATIVE) 05/18/19 08:45 Urine Opiates Screen NEGATIVE 05/18/19 08:45 Urine Methadone Screen NEGATIVE 05/18/19 08:45 Ur Barbiturates Screen NEGATIVE 05/18/19 08:45 Ur Phencyclidine Scrn NEGATIVE 05/18/19 08:45 Ur Amphetamines Screen NEGATIVE 05/18/19 08:45 U Benzodiazepines Scrn NEGATIVE 05/18/19 08:45 Urine Cocaine Screen NEGATIVE 05/18/19 08:45 U Marijuana (THC) Screen NEGATIVE 05/18/19 08:45 Serum Alcohol < 10 mg/dL (NONE DETECTED) 05/18/19 03:31 EKG Comments: Sinus rhythm Impressions: Chest X-Ray 05/18/19 05:25 IMPRESSION: Possible developing bilateral pneumonia. Head CT 05/18/19 05:25 IMPRESSION: 1. No acute intracranial abnormality by CT criteria. This exam was performed according to our departmental dose-optimization program, which includes automated exposure control, adjustment of the mA and/or kV according to patient size and/or use of iterative reconstruction technique. Plan Health Concerns: Medication management, adjustment of antihypertensive and follow-up of anemia strongly suggested Time Spent: Greater than 30 Minutes Stroke Is this a Stroke Patient?: No Acute Heart Failure - Is this a Heart Failure Patient?: No
== END 2019-05-23 15:20 | DRG 193 ==
LOC: ER 03:04 → EH 10:00 → 4W 12:05
PROVIDERS: ADMIT Internal Medicine; ATTEND Internal Medicine
DX: J18.9 Pneumonia, unspecified organism (principal); G93.41 Metabolic encephalopathy; Z68.42 Body mass index [BMI] 45.0-49.9, adult; J96.10 Chronic respiratory failure, unspecified whether with hypoxia or hypercapnia; N17.9 Acute kidney failure, unspecified; N18.4 Chronic kidney disease, stage 4 (severe); D63.1 Anemia in chronic kidney disease; E66.01 Morbid (severe) obesity due to excess calories; E11.22 Type 2 diabetes mellitus with diabetic chronic kidney disease; E87.6 Hypokalemia; I12.9 Hypertensive chronic kidney disease with stage 1 through stage 4 chronic kidney disease, or unspecified chronic kidney disease; Z66 Do not resuscitate; I25.10 Atherosclerotic heart disease of native coronary artery without angina pectoris; E78.5 Hyperlipidemia, unspecified; G47.30 Sleep apnea, unspecified; F32.9 Major depressive disorder, single episode, unspecified; W19.XXXA Unspecified fall, initial encounter; S05.12XA Contusion of eyeball and orbital tissues, left eye, initial encounter
CPT/HCPCS: 36415; 70450; 71045; 80048; 80053; 80307; 81001; 82140; 82803; 82962; 83605; 83735; 85025; 87040; 93005; 93010; 96374; 96375; 99291; 99292; J0696; J1650; J1815; J2060; J3475; J3490; J7030

== ENCOUNTER 2019-11-01 17:17 | Inpatient (IN) | payer MEDICARE, MEDICAID ==
--- NOTE | 2019-11-01 18:29 | ER Document Report ---
ED Medical Screen (RME) - General Chief Complaint: Weakness Stated Complaint: WEAKNESS Time Seen by Provider: 11/01/19 18:20 Primary Care Provider: NATACHA CORMIER MD [Primary Care Provider] - Follow up as needed Mode of Arrival: Wheelchair Information source: Patient Notes: HPI; 64-year-old female presents to the emergency room via EMS complaining of nausea with vomiting and generalized weakness for the past 2 weeks. States she does not remember her last bowel movement. States she can barely get up and walk secondary to weakness. Denies any frequent falls. Denies any chest pain, no shortness of breath, no difficulty breathing. PE: Alert and oriented x3. Moderate distress noted. Lungs: Clear to auscultation without rales, rhonchi, wheezes. Pale conjunctiva heart: Tachycardic without murmurs, rubs, gallops. I have greeted and performed a rapid initial assessment of this patient. A comprehensive ED assessment and evaluation of the patient, analysis of test results and completion of the medical decision making process will be conducted by additional ED providers. I have specifically instructed the patient or family members with the patient to immediately return to any nursing staff should anything change in the patient's condition or with their chief complaint. TRAVEL OUTSIDE OF THE [place] IN LAST 30 DAYS: No - Related Data Allergies/Adverse Reactions: No Known Allergies Allergy (Verified 11/01/19 18:19) Past Medical History - Social History Family history: Reviewed & Not Pertinent - Past Medical History Cardiac Medical History: Reports: Hx Congestive Heart Failure, Hx Coronary Artery Disease, Hx Hypercholesterolemia, Hx Hypertension Denies: Hx Atrial Fibrillation, Hx DVT, Hx Heart Attack, Hx Peripheral Vascular Disease, Hx Pulmonary Embolism Pulmonary Medical History: Reports: Hx Asthma, Hx Respiratory Failure, Hx Sleep Apnea - Not using CPAP at home Denies: Hx Bronchitis, Hx COPD, Hx Pneumonia Neurological Medical History: Denies: Hx Cerebrovascular Accident, Hx Seizures Endocrine Medical History: Reports: Hx Diabetes Mellitus Type 2. Denies: Hx Diabetes Mellitus Type 1, Hx Hyperthyroidism, Hx Hypothyroidism Renal/ Medical History: Denies: Hx Peritoneal Dialysis GI Medical History: Denies: Hx Cirrhosis, Hx Crohn's Disease, Hx Hepatitis, Hx Ulcerative Colitis Musculoskeltal Medical History: Reports Hx Arthritis, Denies Hx Gout Skin Medical History: Denies Hx Eczema, Denies Hx Psoriasis Psychiatric Medical History: Reports: Hx Depression Infectious Medical History: Denies: Hx Hepatitis Past Surgical History: Reports: Hx Cholecystectomy, Hx Tonsillectomy, Hx Tubal Ligation, Other - Carpal tunnel - Immunizations Hx Diphtheria, Pertussis, Tetanus Vaccination: Yes Physical Exam - Vital signs Vitals: Temp Pulse Resp BP Pulse Ox 97.4 F 105 H 20 98/58 L 99 11/01/19 17:33 11/01/19 17:33 11/01/19 17:33 11/01/19 17:33 11/01/19 17:33 Course - Vital Signs Vital signs: Temp Pulse Resp BP Pulse Ox 97.4 F 105 H 20 98/58 L 99 11/01/19 17:33 11/01/19 17:33 11/01/19 17:33 11/01/19 17:33 11/01/19 17:33 Doctor's Discharge - Discharge Referrals: NATACHA CORMIER MD [Primary Care Provider] - Follow up as needed
[2019-11-01 19:28] LABS: ABSOLUTE BASOPHILS # (AUTO) 0.1 10^3/uL (0.0-0.2); ABSOLUTE EOSINOPHILS # (AUTO) 0.1 10^3/uL (0.0-0.6); ABSOLUTE LYMPHOCYTES (AUTO) 1.3 10^3/uL (0.5-4.7); ABSOLUTE MONOCYTES (AUTO) 0.5 10^3/uL (0.1-1.4); ABSOLUTE NEUT (AUTO) 4.8 10^3/uL (1.7-8.2); BASOPHILS % (AUTO) 1.3 % (0-2); EOSINOPHILS % (AUTO) 0.8 % (0-6); HEMATOCRIT 21.3 % (36.0-47.0); LYMPHOCYTES % (AUTO) 19.2 % (13-45); MEAN CORPUSCULAR HEMOGLOBIN 30.5 pg (27.0-33.4); MEAN CORPUSCULAR HGB CONC 33.9 g/dL (32.0-36.0); MEAN CORPUSCULAR VOLUME 90 fl (80-97); MONOCYTES % (AUTO) 6.8 % (3-13); PLATELET COUNT 389 10^3/uL (150-450); RED BLOOD COUNT 2.37 10^6/uL (3.72-5.28); RED CELL DISTRIBUTION WIDTH 15.2 % (11.5-14.0); SEGMENTED NEUTROPHILS % (AUTO) 71.9 % (42-78); TOTAL CELLS COUNTED % (AUTO) 100 %; WHITE BLOOD COUNT 6.7 10^3/uL (4.0-10.5)
[2019-11-01 19:35] LABS: HEMOGLOBIN 7.2 g/dL (12.0-15.5)
[2019-11-01 19:54] LABS: ALBUMIN 3.5 g/dL (3.5-5.0); ALKALINE PHOSPHATASE 109 U/L (38-126); ANION GAP 12 (5-19); ASPARTATE AMINO TRANSFERASE 18 U/L (14-36); BILIRUBIN,DIRECT 0.4 mg/dL (0.0-0.4); BILIRUBIN,TOTAL 0.5 mg/dL (0.2-1.3); BLOOD UREA NITROGEN 90 mg/dL (7-20); CALCIUM 9.1 mg/dL (8.4-10.2); CARBON DIOXIDE 22 mmol/L (22-30); CHLORIDE 103 mmol/L (98-107); GLUCOSE 189 mg/dL (75-110); POTASSIUM 4.2 mmol/L (3.6-5.0); TOTAL PROTEIN 6.6 g/dL (6.3-8.2)
--- NOTE | 2019-11-01 20:35 | EKG REPORT ---
SEVERITY:- ABNORMAL ECG - SINUS TACHYCARDIA LEFT ANTERIOR FASCICULAR BLOCK LOW VOLTAGE THROUGHOUT CONSIDER ANTERIOR INFARCT : Confirmed by: Lzáaro Alston MD 01-Nov-2019 20:34:47
[2019-11-01] MEDS ORDERED: NORMAL SALINE 250 ML IV PRN ×2 (21:07)
[2019-11-01] MEDS ORDERED: ONDANSETRON HCL INJ/PF 4 MG/2 ML SDV IV ONE (21:09)
--- NOTE | 2019-11-01 21:18 | ER Document Report ---
ED General - General Chief Complaint: Weakness Stated Complaint: WEAKNESS Time Seen by Provider: 11/01/19 18:20 Primary Care Provider: NATACHA CORMIER MD [Primary Care Provider] - Follow up as needed Mode of Arrival: Wheelchair TRAVEL OUTSIDE OF THE [place] IN LAST 30 DAYS: No - HPI Notes: Patient is a 64-year-old female who presents to the emergency department for evaluation of generalized weakness. She states that she was in a rehab facility. She was discharged for a month ago, states that she has gotten weak ever since. Over the last 2 weeks she has had increased nausea. She states she is been vomiting every day. Her emesis looks like what she tries to ingest. She denies any hematemesis. She states she was having 1-3 episodes of watery d iarrhea daily, but now it has been at least a week since her last bowel movement. She reports no hematochezia or melena. She does have history of anemia of chronic disease. She complains of generalized pain, particularly in her head, her abdomen, her legs. She states she is also had a minimal cough over the last several weeks as well. Is not productive. No fevers or chills. - Related Data Allergies/Adverse Reactions: No Known Allergies Allergy (Verified 11/01/19 18:19) Home Medications: Lisinopril 40 mg daily, Zofran 4 mg every 8 hours as needed, Klor-Con 20 mEq daily, Norvasc 10 mg daily, clonidine patch 0.2 mg per 24 hours weekly, Seroquel 25 mg twice daily, 50 mg every 8 as needed, hydralazine 25 mg every 8 hours, Toprol XL 100 mg daily Past Medical History - General Information source: Patient - Social History Smoking Status: Never Smoker Chew tobacco use (# tins/day): No Frequency of alcohol use: None Drug Abuse: None Family History: Reviewed & Not Pertinent, CAD, DM, Hypertension Patient has homicidal ideation: No - Past Medical History Cardiac Medical History: Reports: Hx Congestive Heart Failure, Hx Coronary Artery Disease, Hx Hypercholesterolemia, Hx Hypertension Denies: Hx Atrial Fibrillation, Hx DVT, Hx Heart Attack, Hx Peripheral Vascular Disease, Hx Pulmonary Embolism Pulmonary Medical History: Reports: Hx Asthma, Hx Respiratory Failure, Hx Sleep Apnea - Not using CPAP at home Denies: Hx Bronchitis, Hx COPD, Hx Pneumonia Neurological Medical History: Denies: Hx Cerebrovascular Accident, Hx Seizures Endocrine Medical History: Reports: Hx Diabetes Mellitus Type 2. Denies: Hx Diabetes Mellitus Type 1, Hx Hyperthyroidism, Hx Hypothyroidism Renal/ Medical History: Denies: Hx Peritoneal Dialysis GI Medical History: Denies: Hx Cirrhosis, Hx Crohn's Disease, Hx Hepatitis, Hx Ulcerative Colitis Musculoskeletal Medical History: Reports Hx Arthritis, Denies Hx Gout Skin Medical History: Denies Hx Eczema, Denies Hx Psoriasis Psychiatric Medical History: Reports: Hx Depression Infectious Medical History: Denies: Hx Hepatitis Past Surgical History: Reports: Hx Cholecystectomy, Hx Tonsillectomy, Hx Tubal Ligation, Other - Carpal tunnel - Immunizations Hx Diphtheria, Pertussis, Tetanus Vaccination: Yes Review of Systems - Review of Systems Constitutional: See HPI EENT: No symptoms reported Cardiovascular: No symptoms reported Respiratory: No symptoms reported Gastrointestinal: See HPI Genitourinary: No symptoms reported Musculoskeletal: See HPI Skin: No symptoms reported Neurological/Psychological: No symptoms reported Physical Exam - Vital signs Vitals: Temp Pulse Resp BP Pulse Ox 97.4 F 105 H 20 98/58 L 99 11/01/19 17:33 11/01/19 17:33 11/01/19 17:33 11/01/19 17:33 11/01/19 17:33 - Notes Notes: This is a very pale, obese 64-year-old female, appears older than her stated age, no acute distress. Vital signs reviewed, please refer to chart. Head is normocephalic, atraumatic. Pupils equal round, reactive to light. Conjunctive are pale. Neck is supple without meningismus. Heart is regular rate and rhythm. Lungs are clear to auscultation bilaterally. Abdomen is soft, nontender, normoactive bowel sounds throughout. Extremities without cyanosis, clubbing. Posterior calves are nontender. Peripheral pulses are equal. Skin is warm and dry. Patient is awake, alert, neurological exam is nonfocal. Course - Re-evaluation Re-evalutation: 11/01/19 21:18 Patient presents to the emergency department for evaluation. She has had vomiting and diarrhea for the last few weeks. She also complains of cough. She is found to be significantly more anemic. She agrees to blood transfusion. I suspect this is also the cause of her acute on chronic kidney disease, her creatinine has been elevated. She is agreed to transfusion of blood. Given her cough I did order chest x-ray. Patient is given Zofran. She is currently stable, we will continue to monitor. 11/01/19 23:31 Patient remained stable throughout the course of her stay here in the emergency department. She did have a catheterized urine which showed large white blood cells. This was sent for culture. Blood culture ordered. Patient will be given Rocephin. Overall, patient is doing blood transfusion well. I spoke with Dr. Owen, he will accept the patient for further care. - Vital Signs Vital signs: Temp Pulse Resp BP Pulse Ox 97.9 F 84 18 167/94 H 100 11/01/19 22:42 11/01/19 22:42 11/01/19 22:42 11/01/19 22:42 11/01/19 22:42 - Laboratory Result Diagrams: 11/01/19 19:05 11/01/19 19:05 Laboratory results interpreted by me: 11/01/19 11/01/19 11/01/19 19:05 19:05 21:00 RBC 2.37 L Hgb 7.2 L Hct 21.3 L RDW 15.2 H Sodium 136.7 L BUN 90 H Creatinine 3.27 H Est GFR ( Amer) 17 L Est GFR (MDRD) Non-Af 14 L Glucose 189 H Urine Protein Urine Glucose (UA) Urine Blood Ur Leukocyte Esterase Crossmatch See Detail 11/01/19 22:50 RBC Hgb Hct RDW Sodium BUN Creatinine Est GFR ( Amer) Est GFR (MDRD) Non-Af Glucose Urine Protein >=500 H Urine Glucose (UA) 50 H Urine Blood MODERATE H Ur Leukocyte Esterase LARGE H Crossmatch - Diagnostic Test Radiology reviewed: Reports reviewed Radiology results interpreted by me: 11/01/19 23:36 Chest X-Ray 11/01/19 21:09 IMPRESSION: 1. Improvement in lung volumes and aeration. 2. Cardiomegaly. Heart size has decreased when compared to the previous exam. - EKG Interpretation by Me Additional EKG results interpreted by me: 11/01/19 23:50 Sinus tachycardia with rate of 102 bpm. Left axis deviation. Nonspecific ST changes, but no acute elevations concerning for infarction. Discharge - Discharge Clinical Impression: Urinary tract infection, Acute kidney injury superimposed on CKD, Anemia Condition: Stable Disposition: ADMITTED INPATIENT Admitting Provider: Brayden (Hospitalist) Unit Admitted: Medical Floor Referrals: NATACHA CORMIER MD [Primary Care Provider] - Follow up as needed
--- NOTE | 2019-11-01 22:00 | RADIOLOGY REPORT (SQ) ---
EXAM DESCRIPTION: X-ray, single view of the chest CLINICAL HISTORY: 64 years Female, cough COMPARISON: Single view of the chest 05/18/2019 FINDINGS: Lungs: Lung aeration has improved and there is resolution of the previously seen perihilar and infrahilar infiltrate. Persistent blunting of the left costophrenic angle may represent small pleural effusion. The right lung is clear. No pneumothorax. Mediastinum: Heart size remains enlarged but is improved when compared to the previous exam. Bones: Osseous structures are stable IMPRESSION: 1. Improvement in lung volumes and aeration. 2. Cardiomegaly. Heart size has decreased when compared to the previous exam.
[2019-11-01 23:10] LABS: APPEARANCE,URINE CLOUDY; BILIRUBIN,URINE NEGATIVE (NEGATIVE); COLOR,URINE YELLOW; GLUCOSE, URINE 50 mg/dL (NEGATIVE); KETONES,URINE NEGATIVE (NEGATIVE); LEUKOCYTE ESTERASE,URINE LARGE (NEGATIVE); NITRITE,URINE NEGATIVE (NEGATIVE); PROTEIN,URINE >=500 mg/dL (NEGATIVE); URINE SPECIFIC GRAVITY 1.011; UROBILINOGEN,URINE NEGATIVE mg/dL (<2.0)
[2019-11-01] MEDS ORDERED: CEFTRIAXONE 1 GM/D5W RTU 1 GM/50 ML RTUPB IV ONE (23:21)
[2019-11-02] MEDS ORDERED: LORAZEPAM INJ 2 MG/1 ML VIAL IV PRN (00:13)
[2019-11-02] MEDS ORDERED: MELATONIN 5 MG TABLET PO PRN (00:13)
[2019-11-02] MEDS ORDERED: MORPHINE SULFATE 10 MG/ML INJ IV PRN ×4 (00:13→01:26)
[2019-11-02] MEDS ORDERED: GUAIFENESIN SYRP 200 MG/10 ML UDC PO PRN (00:13)
[2019-11-02] MEDS ORDERED: LEVALBUTEROL HCL NEB 0.63 MG/3 ML AMPUL NEB PRN (00:13)
[2019-11-02] MEDS ORDERED: ACETAMINOPHEN 325 MG TABLET PO PRN (00:13)
[2019-11-02] MEDS ORDERED: MAG HYDROX/AL HYDROX/SIMETH SUSP 30 ML UDCUP PO PRN (00:13)
[2019-11-02] MEDS ORDERED: MAGNESIUM HYDROXIDE SUSP 30 ML UDCUP PO PRN (00:13)
[2019-11-02] MEDS ORDERED: ONDANSETRON HCL INJ/PF 4 MG/2 ML SDV IV PRN (00:19)
[2019-11-02] MEDS ORDERED: HYDRALAZINE HCL INJ/PF 20 MG/1 ML SDV IV PRN (00:24)
[2019-11-02] MEDS ORDERED: METOPROLOL TARTRATE PF/INJ 5 MG/5 ML SDV IV PRN (00:24)
[2019-11-02] MEDS ORDERED: DEXTROSE 50%-WATER 25 GM/50 ML DISP.SYRIN IV PRN ×2 (00:25)
[2019-11-02] MEDS ORDERED: DEXTROSE 40% GEL 15 GM TUBE PO PRN ×2 (00:25)
[2019-11-02] MEDS ORDERED: GLUCAGON,HUMAN RECOMB 1 MG INJ IM PRN (00:25)
--- NOTE | 2019-11-02 01:09 | PDOC H&P ---
History of Present Illness Admission Date/PCP: 11/01/2019 23:38 NATACHA CORMIER MD Patient complains of: Weakness History of Present Illness: FINA HERNÁNDEZ is a 64 year old female who presents the emergency room with a 1 month history of generalized weakness. She admits growing progressively weaker every day for the last month. Her weakness is generalized in all of the muscles throughout her body. Her weakness has been accompanied by progressively worsening dyspnea on exertion and nausea which has worsened over the last 2 weeks with resultant vomiting after every ingestion of food for the last 2 weeks. She further admits a couple of episodes of diarrhea more than a week ago and constipation since that time. She denies hematemesis, hematochezia or melena. Her weakness has been associated with generalized pain, intractable hiccups for 2 months and an intermittent nonproductive cough. She denies other associated or accompanying signs and symptoms. She admits prior similar episodes. She has not identified any aggravating or ameliorating factors for her generalized weakness. In the emergency room she was found to have a BUN of 90 with a creatinine of 3.27 and she was also noted to have a hemoglobin of 7.2 compared to her baseline of 8-9. Her urinalysis showed pyuria. The ER physician initiated a transfusion of 1 unit of packed red blood cells and administered 1 g of Rocephin IV. Patient was subsequently admitted hospital for further evaluation and treatment. Past Medical History Cardiac Medical History: Reports: Congestive Heart Failure, Coronary Artery Disease, Hyperlipidema, Hypertension Denies: Atrial Fibrillation, DVT, Myocardial Infarction, Peripheral Vascular Disease, Pulmonary Embolism Pulmonary Medical History: Reports: Asthma, Pneumonia, Respiratory Failure, Sleep Apnea - Not using CPAP at home Denies: Bronchitis, Chronic Obstructive Pulmonary Disease (COPD) EENT Medical History: Denies: Cataracts, Ears - Hearing aids Neurological Medical History: Denies: Hemorrhagic CVA, Ischemic CVA, Seizures Endocrine Medical History: Reports: Diabetes Mellitus Type 2 Denies: Diabetes Mellitus Type 1, Hyperthyroidism, Hypothyroidism Renal/ Medical History: Reports: Chronic Kidney Disease Denies: Nephrolithiasis Malignancy Medical History: Reports: None GI Medical History: Denies: Cirrhosis, Crohn's Disease, Hepatitis, Ulcerative Colitis Musculoskeltal Medical History: Reports: Arthritis Denies: Gout Skin Medical History: Denies: Eczema, Psoriasis Psychiatric Medical History: Reports: Depression Denies: Alcohol Dependency, Substance Abuse, Tobacco Dependency Traumatic Medical History: Reports: None Hematology: Reports: Anemia - Anemia of chronic kidney disease Denies: Bleeding Tendencies Infectious Medical History: Reports: None Past Surgical History Past Surgical History: Reports: Cholecystectomy, Tonsillectomy, Tubal Ligation, Other - Carpal tunnel Social History Information Source: Patient Lives with: Alone Smoking Status: Never Smoker Electronic Cigarette use?: No Frequency of Alcohol Use: None Hx Recreational Drug Use: No Drugs: None Hx Prescription Drug Abuse: No - Advance Directive Resuscitation Status: Full Code Surrogate healthcare decision maker:: Jaye Wakefield Family History Family History: CAD, DM, Hypertension Parental Family History Reviewed: Yes Children Family History Reviewed: No Sibling(s) Family History Reviewed.: Yes Medication/Allergy Home Medications: Lisinopril [Zestril] 40 mg PO DAILY 05/11/19 Ondansetron [Zofran Odt 4 mg Tablet] 4 mg PO Q8HP PRN 05/11/19 Potassium Chloride [Klor-Con 10 Meq Tablet ER] 20 meq PO DAILY 05/11/19 Amlodipine Besylate [Norvasc 10 mg Tablet] 10 mg PO DAILY #30 tablet 05/13/19 Clonidine [Catapres-Tts 2 (0.2 mg/24 Hr) Transderm Ptch] 1 each TD Fr@10 #4 patch.tdwk 05/13/19 Nystatin [Mycostatin Topical Powder 15 gm] 1 applic TP DAILY MDD UNDER BREAST 05/18/19 Quetiapine Fumarate [Seroquel 25 mg Tablet] 25 mg PO Q12 MDD STOP 05/2005/18/19 Quetiapine Fumarate [Seroquel 25 mg Tablet] 50 mg PO Q8HP PRN 05/18/19 Cefuroxime Axetil [Ceftin 500 mg Tablet] 1 tab PO BID #10 tablet 05/23/19 Hydralazine HCl [Apresoline 25 mg Tablet] 25 mg PO Q8 #100 tablet 05/23/19 Metoprolol Succinate [Toprol Xl 25 mg Tab.sr] 100 mg PO DAILY #0 05/23/19 Allergies/Adverse Reactions: No Known Allergies Allergy (Verified 11/01/19 18:19) Review of Systems Constitutional: PRESENT: as per HPI, weakness, other - Generalized pain. ABSENT: chills, fever(s) Eyes: ABSENT: visual disturbances, other - Eye pain Ears: ABSENT: hearing changes, other - Ear pain Nose, Mouth, and Throat: ABSENT: headache(s), sore throat Cardiovascular: PRESENT: dyspnea on exertion. ABSENT: chest pain, palpitations Respiratory: PRESENT: cough. ABSENT: hemoptysis, sputum Gastrointestinal: PRESENT: as per HPI, constipation, diarrhea, nausea, vomiting. ABSENT: abdominal pain Genitourinary: ABSENT: dysuria, hematuria Musculoskeletal: PRESENT: as per HPI, muscle weakness - Generalized, other - Generalized musculoskeletal pain Integumentary: ABSENT: pruritus, rash Neurological: ABSENT: confusion, convulsions, focal weakness, memory loss, syncope Psychiatric: ABSENT: anxiety, depression Endocrine: ABSENT: cold intolerance, heat intolerance Hematologic/Lymphatic: ABSENT: easy bleeding, easy bruising Allergic/Immunologic: ABSENT: seasonal rhinorrhea Physical Exam Vital Signs: Temp Pulse Resp BP Pulse Ox 97.9 F 84 18 167/94 H 100 11/01/19 22:42 11/01/19 22:42 11/01/19 22:42 11/01/19 22:42 11/01/19 22:42 Intake & Output 10/30/19 10/31/19 11/01/19 23:59 23:59 23:59 Intake Total 0 Balance 0 Weight 85.7 kg General appearance: PRESENT: no acute distress, cooperative Head exam: PRESENT: atraumatic, normocephalic Eye exam: PRESENT: conjunctiva pink. ABSENT: conjunctival injection, scleral icterus Ear exam: PRESENT: normal external ear exam. ABSENT: bleeding, drainage Mouth exam: PRESENT: dry mucosa, neck supple Neck exam: ABSENT: thyromegaly, tracheal deviation Respiratory exam: PRESENT: clear to auscultation vadim, symmetrical, unlabored Cardiovascular exam: PRESENT: RRR. ABSENT: clicks, gallop, rubs Pulses: PRESENT: normal radial pulses, normal dorsalis pedis pul Vascular exam: PRESENT: normal capillary refill. ABSENT: pallor GI/Abdominal exam: PRESENT: normal bowel sounds, soft. ABSENT: tenderness Rectal exam: PRESENT: deferred Extremities exam: ABSENT: joint swelling, pedal edema Musculoskeletal exam: ABSENT: deformity, dislocation Neurological exam: PRESENT: alert, oriented to person, oriented to place, oriented to time, oriented to situation, CN II-XII grossly intact. ABSENT: motor sensory deficit Psychiatric exam: PRESENT: appropriate affect, normal mood Skin exam: PRESENT: dry, intact, warm. ABSENT: jaundice, rash, urticaria Results Laboratory Results: 11/01/19 19:05 11/01/19 19:05 11/01/19 11/01/19 11/01/19 19:05 19:05 21:00 WBC 6.7 RBC 2.37 L Hgb 7.2 L Hct 21.3 L MCV 90 MCH 30.5 MCHC 33.9 RDW 15.2 H Plt Count 389 Seg Neutrophils % 71.9 Sodium 136.7 L Potassium 4.2 Chloride 103 Carbon Dioxide 22 Anion Gap 12 BUN 90 H Creatinine 3.27 H Est GFR ( Amer) 17 L Glucose 189 H Calcium 9.1 Total Bilirubin 0.5 AST 18 Alkaline Phosphatase 109 Total Protein 6.6 Albumin 3.5 Urine Color Urine Appearance Urine pH Ur Specific [place] Urine Protein Urine Glucose (UA) Urine Ketones Urine Blood Urine Nitrite Ur Leukocyte Esterase Urine WBC (Auto) Urine RBC (Auto) Blood Type O NEGATIVE Antibody Screen NEGATIVE 11/01/19 22:50 WBC RBC Hgb Hct MCV MCH MCHC RDW Plt Count Seg Neutrophils % Sodium Potassium Chloride Carbon Dioxide Anion Gap BUN Creatinine Est GFR ( Amer) Glucose Calcium Total Bilirubin AST Alkaline Phosphatase Total Protein Albumin Urine Color YELLOW Urine Appearance CLOUDY Urine pH 5.0 Ur Specific [place] 1.011 Urine Protein >=500 H Urine Glucose (UA) 50 H Urine Ketones NEGATIVE Urine Blood MODERATE H Urine Nitrite NEGATIVE Ur Leukocyte Esterase LARGE H Urine WBC (Auto) 31 Urine RBC (Auto) 13 Blood Type Antibody Screen 11/01/19 19:05 Troponin I 0.036 Impressions: Chest X-Ray 11/01/19 21:09 IMPRESSION: 1. Improvement in lung volumes and aeration. 2. Cardiomegaly. Heart size has decreased when compared to the previous exam. Assessment and Plan - Diagnosis (1) Uremia Is this a current diagnosis for this admission?: Yes (2) Intractable hiccups Is this a current diagnosis for this admission?: Yes (3) Generalized muscle weakness Is this a current diagnosis for this admission?: Yes (4) Acute on chronic anemia Is this a current diagnosis for this admission?: Yes (5) Generalized pain Is this a current diagnosis for this admission?: Yes (6) Pyuria Is this a current diagnosis for this admission?: Yes (7) Anemia due to chronic kidney disease Qualifiers: Chronic kidney disease stage: stage 5, not on chronic dialysis Qualified Code(s): N18.5 - Chronic kidney disease, stage 5; D63.1 - Anemia in chronic kidney disease Is this a current diagnosis for this admission?: Yes (8) Chronic diastolic congestive heart failure Is this a current diagnosis for this admission?: Yes (9) Diabetes mellitus type 2 in obese Is this a current diagnosis for this admission?: Yes (10) NILO (obstructive sleep apnea) Is this a current diagnosis for this admission?: Yes (11) Coronary artery disease Qualifiers: Coronary Disease-Associated Artery/Lesion type: [place] artery [place] vs. transplanted heart: [place] heart Associated angina: without angina Qualified Code(s): I25.10 - Atherosclerotic heart disease of [place] coronary artery withou t angina pectoris Is this a current diagnosis for this admission?: Yes (12) Hypertension Qualifiers: Hypertension type: essential hypertension Qualified Code(s): I10 - Essential (primary) hypertension Is this a current diagnosis for this admission?: Yes (13) Hyperlipidemia Qualifiers: Hyperlipidemia type: unspecified Qualified Code(s): E78.5 - Hyperlipidemia, unspecified Is this a current diagnosis for this admission?: Yes - Plan Summary Summary: Patient will be admitted to the medical floor where she will receive routine supportive and symptomatic cares. The blood transfusion initiated by the ER physician will be completed and the patient will be continued on Rocephin 1 g IV every 24 hours pending blood and urine culture results. A nephrology consultation with Dr. Ramirez will be obtained. Physical therapy, Occupational Therapy and discharge planning services will be consulted. Patient received morphine sulfate 2 to 4 mg IV every 2 hours as needed for control of pain and she will receive Ativan 1 mg IV every 4 hours as needed for anxiety or restlessness. She will be on a cardiac, diabetic and renally restricted diet. Her home medications will be restarted, as appropriate, as soon as her medication list has been verified and reconciled. - Time Time Spent with patient: 15-24 minutes Medications reviewed and adjusted accordingly: Yes Anticipated Discharge Disposition: Halfway Facility Anticipated Discharge Timeframe: when bed available - Inpatient Certification Based on my medical assessment, after consideration of the patient's comorbidities, presenting symptoms, or acuity I expect that the services needed warrant INPATIENT care.: Yes I certify that my determination is in accordance with my understanding of Medicare's requirements for reasonable and necessary INPATIENT services [42 CFR 412.3e].: Yes Medical Necessity: Significant Comorbidiites Make Outpatient Treatment Too Risky , Need For IV Fluids, Need for Pain Control, Need for IV Antibiotics, Risk of Complication if Not Cared For in Hospital, Risk of Diagnosis Which Will Require Inpatient Eval/Care/Monitoring
[2019-11-02] MEDS ORDERED: CHLORPROMAZINE HCL INJ 25 MG/1 ML AMPULE IV PRN (01:13)
[2019-11-02] MEDS ORDERED: CHLORPROMAZINE HCL INJ 25 MG/1 ML AMPULE ONE (02:36)
[2019-11-02] MEDS: PANTOPRAZOLE SODIUM 40 MG TABLET.DR PO SCH (05:36)
[2019-11-02] MEDS: HEPARIN SOD (PORCINE) 5,000 UNIT/ML 1 ML VIAL SUBCUT SCH ×3 (05:36→22:17)
[2019-11-02] MEDS: INSULIN REG, HUMAN 100 UNIT/ML 3 ML VIAL (PYX) SUBCUT SCH ×4 (07:50→22:12)
[2019-11-02] MEDS: DOCUSATE SODIUM 100 MG CAPSULE PO SCH ×2 (09:37→18:54)
[2019-11-02 09:38] LABS: ABSOLUTE BASOPHILS # (AUTO) 0.1 10^3/uL (0.0-0.2); ABSOLUTE EOSINOPHILS # (AUTO) 0.1 10^3/uL (0.0-0.6); ABSOLUTE MONOCYTES (AUTO) 0.6 10^3/uL (0.1-1.4); ABSOLUTE NEUT (AUTO) 2.7 10^3/uL (1.7-8.2); BASOPHILS % (AUTO) 1.1 % (0-2); EOSINOPHILS % (AUTO) 1.8 % (0-6); HEMATOCRIT 27.7 % (36.0-47.0); LYMPHOCYTES % (AUTO) 36.2 % (13-45); MEAN CORPUSCULAR HEMOGLOBIN 30.3 pg (27.0-33.4); MEAN CORPUSCULAR HGB CONC 34.7 g/dL (32.0-36.0); MEAN CORPUSCULAR VOLUME 87 fl (80-97); MONOCYTES % (AUTO) 11.7 % (3-13); PLATELET COUNT 229 10^3/uL (150-450); RED BLOOD COUNT 3.18 10^6/uL (3.72-5.28); RED CELL DISTRIBUTION WIDTH 15.8 % (11.5-14.0); SEGMENTED NEUTROPHILS % (AUTO) 49.2 % (42-78); TOTAL CELLS COUNTED % (AUTO) 100 %; WHITE BLOOD COUNT 5.5 10^3/uL (4.0-10.5)
[2019-11-02 09:45] LABS: HEMOGLOBIN 9.6 g/dL (12.0-15.5)
[2019-11-02] MEDS: RINGERS SOLUTION,LACTATED 1,000 ML IV PRN ×2 (10:00→18:55)
--- NOTE | 2019-11-02 19:43 | PDOC CONSULTATION ---
Consultation Consult Date: 11/02/19 Provider Consulted: ARTI OSBORN Consult reason:: Uremia History of Present Illness Admission Date/PCP: 11/02/19 00:05 NATACHA CORMIER MD History of Present Illness: FINA HERNÁNDEZ is a 64 year old female with history of chronic kidney disease stage III, diabetes mellitus type 2, hypertension, coronary artery disease, diastolic congestive heart failure, obstructive sleep apnea and obesity who was admitted last night because of 1 month history of progressive generalized weakness, associated with additional exertion and 2-week history of nausea, vomiting, diarrhea, and poor oral intake. Patient states that last week she has loose stools associated with passing gas 3-4 times a day. She has dry cough on and off for the last couple weeks she feels cold but unknown if she has fever. She does notice decreased urine volume for the past 2 weeks and burning on urination. She has urinary incontinence. She denies any gross hematuria. She reports lower abdominal pain. She had a significant weight loss from 250 pounds to 188 pounds because of admittedly poor oral intake. Initial evaluation showed a BUN of 19, creatinine of 3.27 and hemoglobin of 7.2. Her urinalysis showed greater than or equal to 500 of protein, glucose of 50, moderate blood, large leukocyte esterase, WBC of 31, RBC of 13 and 3+ bacteria. Urine culture is growing gram-negative rods. Patient had history of acute kidney injury between March to April 2019 during her last hospitalization here. In 2018 her baseline creatinine ranges anywhere between 1.4-1.59. After the episode of acute kidney injury at the beginning of this year her creatinine has been anywhere between 1.7-2+. On May 22, 2019 she had a BUN of 23 and creatinine of 1.74. Patient was in the skilled nursing rehabilitation for 3 months but has been home for the past 3 months now. Today the patient has shown orthostasis when the physical therapist came and get her up. Her sitting blood pressure was 124/69 and upon standing it went down to 59/40 with associated increase in heart rate. Her intake is still poor. She denies any chest pain or leg swelling. She said her last bowel movement was last night. She reports that she did go to the bathroom to urinate but is also incontinent. She has no English catheter and so her urine output was not quantified. Past Medical History Cardiac Medical History: Reports: CHF-Diastolic, Coronary Artery Disease, Hyperlipidemia, Hypertension-primary Pulmonary Medical History: Reports: Asthma, Pneumonia, Respiratory Failure, Sleep Apnea - Not using CPAP at home Endocrine Medical History: Reports: Diabetes Mellitus Type 2 Complications of Diabetes: Reports: Autonomic Neuropathy Renal/ Medical History: Reports: Chronic Kidney Disease Stage III GI Medical History: Reports: Gastroesophageal Reflux Disease Musculoskeltal Medical History: Reports: Arthritis Psychiatric Medical History: Reports: Depression, General Anxiety Disorder Hematology Medical History: Reports Anemia of Chronic Kidney Disease Past Surgical History Past Surgical History: Reports: Appendectomy, Cholecystectomy, Tonsillectomy, Tubal Ligation, Other - Carpal tunnel Social History Information Source: Patient Lives with: Family - With daughter Smoking Status: Never Smoker Electronic Cigarette use?: No Frequency of Alcohol Use: None Hx Recreational Drug Use: No Drugs: None Hx Prescription Drug Abuse: No - Advance Directive Resuscitation Status: Full Code Family History Family History: CAD - Brother, Chronic Kidney Disease - Father, DM - Parents and sister, Hypertension - Parents, brother and sister, Malignancy - Father Parental Family History Reviewed: Yes Children Family History Reviewed: Yes Sibling(s) Family History Reviewed.: Yes Medication/Allergy Home Medications: Lisinopril [Zestril] 40 mg PO DAILY 05/11/19 Potassium Chloride [Klor-Con 10 Meq Tablet ER] 20 meq PO DAILY 05/11/19 Amlodipine Besylate [Norvasc 10 mg Tablet] 10 mg PO DAILY #30 tablet 05/13/19 Quetiapine Fumarate [Seroquel 25 mg Tablet] 25 mg PO Q12 05/18/19 Metoprolol Succinate [Toprol Xl 25 mg Tab.sr] 100 mg PO DAILY #0 05/23/19 Clonidine [Catapres-Tts 2 (0.2 mg/24 Hr) Transderm Ptc] 2 each TD Fr@10 11/02/19 Furosemide [Lasix 40 mg Tablet] 60 mg PO DAILY 11/02/19 Hydralazine HCl [Apresoline 25 mg Tablet] 50 mg PO Q6 11/02/19 Metolazone [Zaroxolyn 5 Mg Tablet] 5 mg PO DAILY 11/02/19 Pantoprazole Sodium [Protonix [address] Tablet] 40 mg PO QAM 11/02/19 Sertraline HCl 25 mg PO DAILY 11/02/19 Allergies/Adverse Reactions: No Known Allergies Allergy (Verified 11/01/19 18:19) Review of Systems All systems: reviewed and no additional remarkable complaints except as stated Review of Systems: Constitutional: ABSENT: chills, fever(s), headache(s), weight gain; admits generalized progressive weakness and weight loss Eyes: ABSENT: visual disturbances Ears: ABSENT: hearing changes Cardiovascular: ABSENT: chest pain, edema, orthropnea, palpitations; admits dyspnea on exertion Respiratory: ABSENT: dyspnea, hemoptysis; admits dry cough Gastrointestinal: ABSENT: Constipation, hematemesis, hematochezia; admits diarrhea, abdominal pain, nausea, and vomiting Genitourinary: ABSENT: dysuria, hematuria Musculoskeletal: ABSENT: joint swelling Integumentary: ABSENT: rash, wounds Neurological: ABSENT: abnormal gait, abnormal speech, confusion, dizziness, focal weakness, numbness, syncope Psychiatric: ABSENT: anxiety, depression Endocrine: ABSENT: cold intolerance, heat intolerance, polydipsia, polyuria Hematologic/Lymphatic: ABSENT: easy bleeding, easy bruising, lymphadenopathy Physical Exam Vital Signs: Temp Pulse Resp BP Pulse Ox 97.5 F 73 16 150/84 H 98 11/02/19 06:30 11/02/19 08:44 11/02/19 08:44 11/02/19 06:30 11/02/19 08:44 Intake & Output 11/01/19 11/02/19 11/03/19 06:59 06:59 06:59 Intake Total 960 Balance 960 Weight 81.7 kg Exam: General appearance: No acute distress, cooperative, well-developed, well- nourished Head exam: PRESENT: atraumatic, normocephalic Eye exam: PRESENT: Conjunctiva pale, EOMI, PERRLA. ABSENT: conjunctival injection, scleral icterus Mouth exam: PRESENT: moist, neck supple, tongue midline Neck exam: PRESENT: full ROM. ABSENT: carotid bruit, JVD, lymphadenopathy, thyromegaly Respiratory exam: PRESENT: Diminished to auscultation bilaterally. ABSENT: rales, rhonchi, stridor, wheezes Cardiovascular exam: PRESENT: RRR, +S1, +S2. ABSENT: systolic murmur Pulses: PRESENT: normal radial pulses, normal dorsalis pedis pulses GI/Abdominal exam: PRESENT: normal bowel sounds, soft. ABSENT: guarding, mass, tenderness Rectal exam: Deferred Extremities exam: PRESENT: full ROM. ABSENT: calf tenderness, pedal edema Musculoskeletal: PRESENT: full ROM. ABSENT: deformity Neurological exam: PRESENT: alert, Awake, Oriented to person, Oriented to place, Oriented to time, reflexes normal, CN II-XII grossly intact. ABSENT: motor sensory deficit Psychiatric exam: PRESENT: appropriate affect, normal mood. ABSENT: homicidal ideation, suicidal ideation Skin exam: PRESENT: intact, dry, warm. Fair to poor skin turgor ABSENT: rash Results Laboratory Results: 11/02/19 09:00 11/01/19 19:05 11/01/19 11/01/19 11/01/19 19:05 19:05 19:05 WBC 6.7 RBC 2.37 L Hgb 7.2 L Hct 21.3 L MCV 90 MCH 30.5 MCHC 33.9 RDW 15.2 H Plt Count 389 Seg Neutrophils % 71.9 Sodium 136.7 L Potassium 4.2 Chloride 103 Carbon Dioxide 22 Anion Gap 12 BUN 90 H Creatinine 3.27 H Est GFR ( Amer) 17 L Glucose 189 H Calcium 9.1 Total Bilirubin 0.5 AST 18 Alkaline Phosphatase 109 Total Protein 6.6 Albumin 3.5 Free T3 pg/mL 2.08 L Urine Color Urine Appearance Urine pH Ur Specific [place] Urine Protein Urine Glucose (UA) Urine Ketones Urine Blood Urine Nitrite Ur Leukocyte Esterase Urine WBC (Auto) Urine RBC (Auto) Blood Type Antibody Screen 11/01/19 11/01/19 11/02/19 21:00 22:50 09:00 WBC 5.5 RBC 3.18 L Hgb 9.6 L D Hct 27.7 L MCV 87 MCH 30.3 MCHC 34.7 RDW 15.8 H Plt Count 229 Seg Neutrophils % 49.2 Sodium Potassium Chloride Carbon Dioxide Anion Gap BUN Creatinine Est GFR ( Amer) Glucose Calcium Total Bilirubin AST Alkaline Phosphatase Total Protein Albumin Free T3 pg/mL Urine Color YELLOW Urine Appearance CLOUDY Urine pH 5.0 Ur Specific [place] 1.011 Urine Protein >=500 H Urine Glucose (UA) 50 H Urine Ketones NEGATIVE Urine Blood MODERATE H Urine Nitrite NEGATIVE Ur Leukocyte Esterase LARGE H Urine WBC (Auto) 31 Urine RBC (Auto) 13 Blood Type O NEGATIVE Antibody Screen NEGATIVE 11/01/19 19:05 Troponin I 0.036 Impressions: Chest X-Ray 11/01/19 21:09 IMPRESSION: 1. Improvement in lung volumes and aeration. 2. Cardiomegaly. Heart size has decreased when compared to the previous exam. Assessment & Plan - Diagnosis (1) Acute kidney injury superimposed on chronic kidney disease Is this a current diagnosis for this admission?: Yes Plan: Baseline creatinine around 1.7-2+. Most likely secondary to acute prerenal azotemia secondary to poor oral intake and diarrhea with exacerbating factors including diuretics blood pressure medications that could be causing hypotension prior to admission. D initial prerenal azotemia has progressed to ATN is also a possibility. Concurrent acute urinary tract infection is also a contributory factor. Patient has underlying chronic kidney disease stage III associated with proteinuria most likely secondary to diabetic nephropathy with other risk factors including hypertension and morbid obesity. Last kidney ultrasound on April 01, 2019 showed the right kidney at 14 cm and unfortunately the left kidney was unable to be visualized. I will hold ordering renal ultrasound at this time unless patient's kidney function does not improve with rehydration. Continue IV fluid hydration. We will have English catheter insertion to quantify intake and output. No indication for acute renal replacement therapy at this time. Monitor kidney function. Avoid nephrotoxic medications. (2) Acute on chronic anemia Is this a current diagnosis for this admission?: Yes Plan: Patient was transfused 2 units of packed RBC upon presentation in the emergency room last night. Her hemoglobin has gone from 7.2 to now 9.6. Needs work-up to figure out etiology including GI causes. Needs to check stool for occult blood. (3) Anemia due to chronic kidney disease Qualifiers: Chronic kidney disease stage: stage 5, not on chronic dialysis Qualified Code(s): N18.5 - Chronic kidney disease, stage 5; D63.1 - Anemia in chronic kidney disease Is this a current diagnosis for this admission?: Yes Plan: During her admission in March patient had acceptable iron indicis and we started her on Retacrit. However I am not sure if the Retacrit was continued in skilled nursing rehabilitation and I am pretty certain for the last 3 months she has not received any as she has not been seen in my office for follow-up visit this year. We will check iron work-up, stool for occult blood and start the patient back on Retacrit. (4) Generalized muscle weakness Is this a current diagnosis for this admission?: Yes Plan: Due to acute illness with acute kidney injury and urinary tract infection. (5) UTI (urinary tract infection) Is this a current diagnosis for this admission?: Yes Plan: Urine culture positive for gram-negative rods. Currently on ceftriaxone. (6) Diabetes mellitus type 2 in obese Is this a current diagnosis for this admission?: Yes (7) Diarrhea Qualifiers: Diarrhea type: unspecified type Qualified Code(s): R19.7 - Diarrhea, unspecified Is this a current diagnosis for this admission?: Yes Plan: Needs further work-up. Defer to primary service and possible need for GI consult. (8) Hypertension Qualifiers: Hypertension type: essential hypertension Qualified Code(s): I10 - Essential (primary) hypertension Is this a current diagnosis for this admission?: Yes Plan: Patient is significant orthostasis indicating intravascular volume depletion. Continue IV fluid hydration. (9) NILO (obstructive sleep apnea) Is this a current diagnosis for this admission?: Yes - Notes Notes: Thank you very much for this consultation. We will follow the patient with you.
[2019-11-02] MEDS ORDERED: EPOETIN ALFA-EPBX 40,000 UNIT/ML VIAL (NON-ESRD) SUBCUT SCH (21:00)
[2019-11-02] MEDS ORDERED: EPOETIN ALFA-EPBX 20,000 UNITS (NON-ESRD) in SYRINGE SUBCUT SCH (22:00)
[2019-11-02] MEDS ORDERED: CEFTRIAXONE 1 GM/D5W RTU 1 GM/50 ML RTUPB IV SCH (22:00)
[2019-11-03] MEDS: HEPARIN SOD (PORCINE) 5,000 UNIT/ML 1 ML VIAL SUBCUT SCH ×3 (05:40→21:39)
[2019-11-03] MEDS: PANTOPRAZOLE SODIUM 40 MG TABLET.DR PO SCH (05:40)
[2019-11-03 05:57] LABS: ABSOLUTE RETICS # 0.034 10^6/uL (0.028-0.122); HEMATOCRIT 29.1 % (36.0-47.0); HEMOGLOBIN 9.9 g/dL (12.0-15.5); MEAN CORPUSCULAR HEMOGLOBIN 29.9 pg (27.0-33.4); MEAN CORPUSCULAR HGB CONC 34.2 g/dL (32.0-36.0); MEAN CORPUSCULAR VOLUME 87 fl (80-97); PLATELET COUNT 211 10^3/uL (150-450); RED BLOOD COUNT 3.32 10^6/uL (3.72-5.28); RED CELL DISTRIBUTION WIDTH 15.9 % (11.5-14.0); RETICULOCYTE COUNT (AUTO) 1.01 % (0.66-2.85); WHITE BLOOD COUNT 5.2 10^3/uL (4.0-10.5)
[2019-11-03 06:02] LABS: ANION GAP 9 (5-19); BLOOD UREA NITROGEN 79 mg/dL (7-20); CALCIUM 8.1 mg/dL (8.4-10.2); CARBON DIOXIDE 22 mmol/L (22-30); CHLORIDE 103 mmol/L (98-107); CHOLESTEROL 313.32 mg/dL (0-200); GLUCOSE 109 mg/dL (75-110); IRON(TIBC) 44.3 ug/dL (37-170); PHOSPHORUS 4.2 mg/dL (2.5-4.5); POTASSIUM 3.6 mmol/L (3.6-5.0); TRIGLYCERIDES 510 mg/dL (<150)
[2019-11-03 06:13] LABS: DIRECT LDL 160 mg/dL (<100)
[2019-11-03 07:07] LABS: FOLATE 4.79 ng/mL (>2.76)
[2019-11-03] MEDS: INSULIN REG, HUMAN 100 UNIT/ML 3 ML VIAL (PYX) SUBCUT SCH ×4 (11:31→21:39)
[2019-11-03] MEDS: DOCUSATE SODIUM 100 MG CAPSULE PO SCH (11:32)
[2019-11-03] MEDS ORDERED: MEROPENEM 1 GM VIAL IV ONE (11:54)
[2019-11-03] MEDS ORDERED: PHARMACY COMMUNICATION ORDER MC NR (12:00)
--- NOTE | 2019-11-03 12:59 | PDOC PROGRESS REPORT ---
Subjective Progress Note for:: 11/03/19 Subjective:: Patient states that she is not feeling good today with some queasy stomach. She had an episode of vomiting today. She denies any diarrhea. Her blood pressure is also elevated. Her urine output is adequate with a volume of 1750 mL for the past 24 hours, with good response to IV hydration. Reason For Visit: GENERALIZED WEAKNESS,ANEMIA Physical Exam Vital Signs: Temp Pulse Resp BP Pulse Ox 97.5 F 95 20 157/95 H 100 11/03/19 12:05 11/03/19 12:05 11/03/19 12:05 11/03/19 12:05 11/03/19 12:05 Intake & Output 11/02/19 11/03/19 11/04/19 06:59 06:59 06:59 Intake Total 960 2685 450 Output Total 1750 Balance 960 935 450 Weight 81.7 kg 81.7 kg Exam: General appearance: PRESENT: no acute distress, cooperative, well-developed, well-nourished Head exam: PRESENT: atraumatic, normocephalic Eye exam: PRESENT: conjunctiva pale, PERRLA. ABSENT: scleral icterus Neck exam: ABSENT: JVD Respiratory exam: PRESENT: Diminished breath sounds. ABSENT: crackles, rales, rhonchi, unlabored, wheezes Cardiovascular exam: PRESENT: Regular rate rhythm -+S1, +S2. ABSENT: diastolic murmur, systolic murmur GI/Abdominal exam: PRESENT: normal bowel sounds, soft. ABSENT: guarding, mass, tenderness Extremities exam: ABSENT: No edema Neurological exam: PRESENT: alert, awake, oriented to person, place and time. Skin exam: PRESENT: dry, warm, positive pallor Results Laboratory Results: 11/03/19 05:35 11/03/19 05:35 11/03/19 11/03/19 11/03/19 05:35 05:35 05:35 WBC 5.2 RBC 3.32 L Hgb 9.9 L Hct 29.1 L MCV 87 MCH 29.9 MCHC 34.2 RDW 15.9 H Plt Count 211 Retic Count (auto) 1.01 Sodium 133.7 L Potassium 3.6 Chloride 103 Carbon Dioxide 22 Anion Gap 9 BUN 79 H Creatinine 3.05 H Est GFR ( Amer) 19 L Glucose 109 Calcium 8.1 L Phosphorus 4.2 Magnesium 1.5 L Iron 44.3 TIBC 209 L % Saturation 21 Ferritin 279.00 H Triglycerides 510 H Cholesterol 313.32 H LDL Cholesterol Direct 160 H HDL Cholesterol 38 L Vitamin B12 304.0 Folate 4.79 TSH PTH Intact 134.1 H 11/03/19 05:35 WBC RBC Hgb Hct MCV MCH MCHC RDW Plt Count Retic Count (auto) Sodium Potassium Chloride Carbon Dioxide Anion Gap BUN Creatinine Est GFR ( Amer) Glucose Calcium Phosphorus Magnesium Iron TIBC % Saturation Ferritin Triglycerides Cholesterol LDL Cholesterol Direct HDL Cholesterol Vitamin B12 Folate TSH 3.03 PTH Intact 11/01/19 22:50 Catheterized Urine Urine Culture - Final Escherichia Coli Esbl 11/01/19 19:05 Troponin I 0.036 Impressions: Chest X-Ray 11/01/19 21:09 IMPRESSION: 1. Improvement in lung volumes and aeration. 2. Cardiomegaly. Heart size has decreased when compared to the previous exam. Assessment & Plan - Diagnosis (1) Acute kidney injury superimposed on chronic kidney disease Is this a current diagnosis for this admission?: Yes Plan: Baseline creatinine around 1.7-2+. Most likely secondary to acute prerenal azotemia secondary to poor oral intake and diarrhea with exacerbating factors including diuretics blood pressure medications that could be causing hypotension prior to admission. Wether the initial prerenal azotemia has progressed to ATN is also a possibility. Concurrent acute urinary tract infection is also a contributory factor. Patient has underlying chronic kidney disease stage III associated with proteinuria most likely secondary to diabetic nephropathy with other risk factors including hypertension and morbid obesity. Last kidney ultrasound on J an2019 showed the right kidney at 14 cm and unfortunately the left kidney was unable to be visualized. I will hold ordering renal ultrasound at this time unless patient's kidney function does not improve with rehydration. Urine output is adequate with improved kidney function today. Continue IV fluid hydration. No indication for acute renal replacement therapy at this time. Monitor kidney function. Avoid nephrotoxic medications. (2) Acute on chronic anemia Is this a current diagnosis for this admission?: Yes Plan: Patient was transfused 2 units of packed RBC upon presentation in the emergency room. Her hemoglobin has gone from 7.2 to now 9.6 and now 9.9. Needs work-up to figure out etiology including GI causes. Stool for occult blood still not collected. No obvious active bleeding. (3) Anemia due to chronic kidney disease Qualifiers: Chronic kidney disease stage: stage 5, not on chronic dialysis Qualified Code(s): N18.5 - Chronic kidney disease, stage 5; D63.1 - Anemia in chronic kidney disease Is this a current diagnosis for this admission?: Yes Plan: During her admission in March patient had acceptable iron indicis and we started her on Retacrit. However I am not sure if the Retacrit was continued in halfway rehabilitation and I am pretty certain for the last 3 months she has not received any as she has not been seen in my office for follow-up visit this year. Stool for occult blood and collected and started the patient back on Retacrit. Her iron is 443, T sat of 21 and ferritin of 279 which are adequate. Continue Retacrit. (4) UTI (urinary tract infection) Is this a current diagnosis for this admission?: Yes Plan: Secondary to ESBL E. coli resistant to ceftriaxone. Hospitalist ordered meropenem today. (5) Generalized muscle weakness Is this a current diagnosis for this admission?: Yes Plan: Due to acute illness with acute kidney injury and urinary tract infection. (6) Diabetes mellitus type 2 in obese Is this a current diagnosis for this admission?: Yes (7) Diarrhea Qualifiers: Diarrhea type: unspecified type Qualified Code(s): R19.7 - Diarrhea, unspecified Is this a current diagnosis for this admission?: Yes Plan: Clinically resolved. (8) Hypertension Qualifiers: Hypertension type: essential hypertension Qualified Code(s): I10 - Essential (primary) hypertension Is this a current diagnosis for this admission?: Yes Plan: Sub-optimally controlled. Restart amlodipine 10 mg daily. (9) Hypomagnesemia Is this a current diagnosis for this admission?: Yes Plan: I will give magnesium oxide 400 mg daily. (10) NILO (obstructive sleep apnea) Is this a current diagnosis for this admission?: Yes - Time Time with patient: 15-25 minutes
[2019-11-03] MEDS: MAGNESIUM OXIDE 400 MG TABLET PO SCH (13:11)
[2019-11-03] MEDS: AMLODIPINE BESYLATE 10 MG TABLET PO SCH (13:11)
[2019-11-03] MEDS ORDERED: MEROPENEM IV SCH (14:00)
[2019-11-03] MEDS ORDERED: NORMAL SALINE IV SCH (14:00)
[2019-11-03] MEDS: RINGERS SOLUTION,LACTATED 1,000 ML IV PRN (16:08)
[2019-11-03] MEDS: MEROPENEM IV SCH ×2 (16:10→21:42)
[2019-11-03] MEDS: NORMAL SALINE IV SCH ×2 (16:10→21:42)
--- NOTE | 2019-11-03 17:26 | PDOC PROGRESS REPORT ---
Subjective Progress Note for:: 11/03/19 Subjective:: 64 year old female with history of CKD stage III, DM type 2, CAD, HTN, HLD, CHF, NILO who presented from home because of 1 month history of progressively worsening generalized weakness associated with nausea, vomiting and poor oral intake. She endorses 60 lb weight loss due to poor oral intake and lack of appetite. Initial evaluation showed elevated creatinine of 3.27 and decreased hemoglobin of 7.2. UCx showed ESBL E coli. She was dehydrated on examination and had orthostatic hypotension. This morning, she was able to eat breakfast, but about 2 hours later, had NBNB vomiting associated with epigastric abdominal pain. She says that she normally "feels better after vomiting." She had several loose stools yesterday, but none overnight or today. Reason For Visit: GENERALIZED WEAKNESS Physical Exam Vital Signs: Temp Pulse Resp BP Pulse Ox 97.5 F 95 20 157/95 H 100 11/03/19 12:05 11/03/19 12:05 11/03/19 12:05 11/03/19 12:05 11/03/19 12:05 Intake & Output 11/02/19 11/03/19 11/04/19 06:59 06:59 06:59 Intake Total 960 2685 1450 Output Total 1750 Balance 491 208 8329 Weight 81.7 kg 81.7 kg Results Laboratory Results: 11/03/19 05:35 11/03/19 05:35 11/03/19 11/03/19 11/03/19 05:35 05:35 05:35 WBC 5.2 RBC 3.32 L Hgb 9.9 L Hct 29.1 L MCV 87 MCH 29.9 MCHC 34.2 RDW 15.9 H Plt Count 211 Retic Count (auto) 1.01 Sodium 133.7 L Potassium 3.6 Chloride 103 Carbon Dioxide 22 Anion Gap 9 BUN 79 H Creatinine 3.05 H Est GFR ( Amer) 19 L Glucose 109 Calcium 8.1 L Phosphorus 4.2 Magnesium 1.5 L Iron 44.3 TIBC 209 L % Saturation 21 Ferritin 279.00 H Triglycerides 510 H Cholesterol 313.32 H LDL Cholesterol Direct 160 H HDL Cholesterol 38 L Vitamin B12 304.0 Folate 4.79 TSH PTH Intact 134.1 H 11/03/19 05:35 WBC RBC Hgb Hct MCV MCH MCHC RDW Plt Count Retic Count (auto) Sodium Potassium Chloride Carbon Dioxide Anion Gap BUN Creatinine Est GFR ( Amer) Glucose Calcium Phosphorus Magnesium Iron TIBC % Saturation Ferritin Triglycerides Cholesterol LDL Cholesterol Direct HDL Cholesterol Vitamin B12 Folate TSH 3.03 PTH Intact 11/01/19 22:50 Catheterized Urine Urine Culture - Final Escherichia Coli Esbl 11/01/19 19:05 Troponin I 0.036 Impressions: Chest X-Ray 11/01/19 21:09 IMPRESSION: 1. Improvement in lung volumes and aeration. 2. Cardiomegaly. Heart size has decreased when compared to the previous exam. Assessment and Plan - Plan Summary Summary: Pre-Renal ISAAC on CKD stage III: Baseline creatinine around 1.7-2. Most likely secondary to acute prerenal azotemia secondary to poor oral intake and diarrhea with exacerbating factors including diuretics prior to admission. - nephrology consulted - UOP and Cr improving with hydration Acute on chronic anemia of chronic kidney disease - baseline hgb 8 - transfused 2 units of pRBC upon presentation to ED - hemoglobin has gone from 7.2 to now 9.6 and now 9.9 - no signs/symptoms of bleeding - unclear if she was receiving Retacrit for the last several months, which was likely cause of her worsening anemia ESBL E Coli UTI - resistant to ceftriaxone which she has been getting this hospitalization, switch antibiotic to meropenem on 11/02 as susceptibilities are now available Diarrhea - Clinically resolved. Hypertension - uncontrolled - med adjustments made as per nephrology recs Hypomagnesemia - replete - Time Time Spent with patient: 35 or more minutes Anticipated Discharge Disposition: [facility] Anticipated Discharge Timeframe: within 72 hours
[2019-11-04] MEDS: HEPARIN SOD (PORCINE) 5,000 UNIT/ML 1 ML VIAL SUBCUT SCH ×3 (05:19→22:52)
[2019-11-04] MEDS: PANTOPRAZOLE SODIUM 40 MG TABLET.DR PO SCH (05:19)
[2019-11-04 06:32] LABS: HEMATOCRIT 30.4 % (36.0-47.0); HEMOGLOBIN 10.4 g/dL (12.0-15.5); MEAN CORPUSCULAR HEMOGLOBIN 29.9 pg (27.0-33.4); MEAN CORPUSCULAR HGB CONC 34.2 g/dL (32.0-36.0); MEAN CORPUSCULAR VOLUME 87 fl (80-97); PLATELET COUNT 255 10^3/uL (150-450); RED BLOOD COUNT 3.48 10^6/uL (3.72-5.28); RED CELL DISTRIBUTION WIDTH 15.2 % (11.5-14.0); WHITE BLOOD COUNT 5.7 10^3/uL (4.0-10.5)
[2019-11-04 07:00] LABS: ANION GAP 6 (5-19); BLOOD UREA NITROGEN 68 mg/dL (7-20); CALCIUM 8.2 mg/dL (8.4-10.2); CARBON DIOXIDE 24 mmol/L (22-30); CHLORIDE 105 mmol/L (98-107); GLUCOSE 100 mg/dL (75-110); POTASSIUM 3.9 mmol/L (3.6-5.0)
[2019-11-04] MEDS: INSULIN REG, HUMAN 100 UNIT/ML 3 ML VIAL (PYX) SUBCUT SCH ×4 (07:29→22:52)
[2019-11-04] MEDS: MAGNESIUM OXIDE 400 MG TABLET PO SCH (09:25)
[2019-11-04] MEDS: AMLODIPINE BESYLATE 10 MG TABLET PO SCH (09:25)
[2019-11-04] MEDS: MEROPENEM IV SCH ×2 (09:46→22:52)
[2019-11-04] MEDS: NORMAL SALINE IV SCH ×2 (09:46→22:52)
[2019-11-04] MEDS: HYDRALAZINE HCL 50 MG TABLET PO SCH ×3 (09:47→17:02)
[2019-11-04] MEDS ORDERED: ONDANSETRON HCL INJ/PF 4 MG/2 ML SDV ONE (12:25)
[2019-11-04] MEDS: RINGERS SOLUTION,LACTATED 1,000 ML IV PRN (14:25)
[2019-11-04] MEDS ORDERED: MAGNESIUM SULFATE 4 GM/100 ML RTUPB IV ONE (16:00)
[2019-11-04] MEDS: ONDANSETRON HCL INJ/PF 4 MG/2 ML SDV IV PRN (17:08)
--- NOTE | 2019-11-04 18:04 | PDOC PROGRESS REPORT ---
Subjective Progress Note for:: 11/04/19 Subjective:: Patient states that she has some stomach upset again and vomited this morning. Otherwise no other new complaints. Her blood pressure still elevated. She has adequate urine output. Reason For Visit: GENERALIZED WEAKNESS,ANEMIA Physical Exam Vital Signs: Temp Pulse Resp BP Pulse Ox 97.8 F 96 18 162/91 H 100 11/04/19 09:40 11/04/19 07:43 11/04/19 07:43 11/04/19 07:43 11/04/19 07:43 Intake & Output 11/03/19 11/04/19 11/05/19 06:59 06:59 06:59 Intake Total 2685 2450 Output Total 1750 1275 Balance 935 1175 Weight 81.7 kg 81.7 kg Exam: General appearance: PRESENT: no acute distress, cooperative, well-developed, well-nourished Head exam: PRESENT: atraumatic, normocephalic Eye exam: PRESENT: conjunctiva pale, PERRLA. ABSENT: scleral icterus Neck exam: ABSENT: JVD Respiratory exam: PRESENT: Diminished breath sounds. ABSENT: crackles, rales, rhonchi, unlabored, wheezes Cardiovascular exam: PRESENT: Regular rate rhythm -+S1, +S2. ABSENT: diastolic murmur, systolic murmur GI/Abdominal exam: PRESENT: normal bowel sounds, soft. ABSENT: guarding, mass, tenderness Extremities exam: ABSENT: No edema Neurological exam: PRESENT: alert, awake, oriented to person, place and time. Skin exam: [PRESENT: dry, warm, generalized pallor Results Laboratory Results: 11/04/19 05:48 11/04/19 05:48 11/04/19 11/04/19 05:48 05:48 WBC 5.7 RBC 3.48 L Hgb 10.4 L Hct 30.4 L MCV 87 MCH 29.9 MCHC 34.2 RDW 15.2 H Plt Count 255 Sodium 134.9 L Potassium 3.9 Chloride 105 Carbon Dioxide 24 Anion Gap 6 BUN 68 H Creatinine 2.65 H Est GFR ( Amer) 22 L Glucose 100 Calcium 8.2 L Magnesium 1.5 L 11/01/19 22:50 Catheterized Urine Urine Culture - Final Escherichia Coli Esbl 11/01/19 19:05 Troponin I 0.036 Impressions: Chest X-Ray 11/01/19 21:09 IMPRESSION: 1. Improvement in lung volumes and aeration. 2. Cardiomegaly. Heart size has decreased when compared to the previous exam. Assessment & Plan - Diagnosis (1) Acute kidney injury superimposed on chronic kidney disease Is this a current diagnosis for this admission?: Yes Plan: Baseline creatinine around 1.7-2+. Most likely secondary to acute prerenal azotemia secondary to poor oral intake and diarrhea with exacerbating factors including diuretics, blood pressure medications that could be causing hypotensio n prior to admission. Concurrent acute urinary tract infection is also a contributory factor. Patient has underlying chronic kidney disease stage III associated with proteinuria most likely secondary to diabetic nephropathy with other risk factors including hypertension and morbid obesity. Last kidney ultrasound on April 01, 2019 showed the right kidney at 14 cm and unfortunately the left k idney was unable to be visualized. I will hold ordering renal ultrasound at this time unless patient's kidney function does not improve with rehydration. Urine output is adequate with improving kidney function. Continue IV fluid hydration with decrease rate to 100 mL/min. No indication for acute renal replacement therapy at this time. Monitor kidney function. Avoid nephrotoxic medications. (2) Acute on chronic anemia Is this a current diagnosis for this admission?: Yes Plan: Patient was transfused 2 units of packed RBC upon presentation in the emergency room. Her hemoglobin has gone from 7.2 to now 10.4. No obvious active bleeding. (3) Anemia due to chronic kidney disease Qualifiers: Chronic kidney disease stage: stage 5, not on chronic dialysis Qualified Code(s): N18.5 - Chronic kidney disease, stage 5; D63.1 - Anemia in chronic kidney disease Is this a current diagnosis for this admission?: Yes Plan: During her admission in March patient had acceptable iron indicis and we star miguel her on Retacrit. However I am not sure if the Retacrit was continued in senior care rehabilitation and I am pretty certain for the last 3 months she has not received any as she has not been seen in my office for follow-up visit this year. Stool for occult blood uncollected. Started the patient back on Retacrit. Her iron is 443, T sat of 21 and ferritin of 279 which are adequate. Continue Retacrit. Patient will be sent to senior care rehab, she has to continue Retacrit. (4) UTI (urinary tract infection) Is this a current diagnosis for this admission?: Yes Plan: Secondary to ESBL E. coli resistant to ceftriaxone. Hospitalist started meropenem yesterday, 11/02. (5) Generalized muscle weakness Is this a current diagnosis for this admission?: Yes Plan: Due to acute illness with acute kidney injury and urinary tract infection. (6) Diabetes mellitus type 2 in obese Is this a current diagnosis for this admission?: Yes (7) Diarrhea Qualifiers: Diarrhea type: unspecified type Qualified Code(s): R19.7 - Diarrhea, unspecified Is this a current diagnosis for this admission?: Yes Plan: Clinically resolved. (8) Hypertension Qualifiers: Hypertension type: essential hypertension Qualified Code(s): I10 - Essen tial (primary) hypertension Is this a current diagnosis for this admission?: Yes Plan: Restart hydralazine 50 mg p.o. every 6 hours. (9) Hypomagnesemia Is this a current diagnosis for this admission?: Yes Plan: On magnesium oxide 400 mg daily. (10) NILO (obstructive sleep apnea) Is this a current diagnosis for this admission?: Yes - Time Time with patient: 15-25 minutes
--- NOTE | 2019-11-04 19:20 | PDOC PROGRESS REPORT ---
Subjective Progress Note for:: 11/04/19 Subjective:: She is feeling well today. Denies any particular concerns. She is looking forward to going to rehab tomorrow after completing antibiotics. Reason For Visit: GENERALIZED WEAKNESS,ANEMIA Physical Exam Vital Signs: Temp Pulse Resp BP Pulse Ox 97.7 F 98 20 130/71 H 94 11/04/19 15:22 11/04/19 15:22 11/04/19 15:22 11/04/19 15:22 11/04/19 15:22 Intake & Output 11/03/19 11/04/19 11/05/19 06:59 06:59 06:59 Intake Total 2685 2450 2272 Output Total 1750 1275 Balance 935 1175 2272 Weight 81.7 kg 81.7 kg Additional comments: orthostatic vital signs positive but much improved with IVF General: appears older than stated age, pleasant, conversant Head: normocephalic, atraumatic Eyes: anicteric sclera ENT: moist mucus memranes, no oropharyngeal erythema/exudate Neck: no lymphadenopathy Lungs: clear to auscultation bilaterally Heart: regular rate and rhythm Abdomen: normoactive bowel sounds, soft, non-tender, non-distended : no CVA tenderness, no suprapubic tenderness Extremities: warm and well perfused, no edema Vascular: 2+ peripheral pulses in all extremities Neuro: Alert and oriented x2 Skin: no rash Results Laboratory Results: 11/04/19 05:48 11/04/19 05:48 11/04/19 11/04/19 05:48 05:48 WBC 5.7 RBC 3.48 L Hgb 10.4 L Hct 30.4 L MCV 87 MCH 29.9 MCHC 34.2 RDW 15.2 H Plt Count 255 Sodium 134.9 L Potassium 3.9 Chloride 105 Carbon Dioxide 24 Anion Gap 6 BUN 68 H Creatinine 2.65 H Est GFR ( Amer) 22 L Glucose 100 Calcium 8.2 L Magnesium 1.5 L 11/01/19 19:05 Troponin I 0.036 Impressions: Chest X-Ray 11/01/19 21:09 IMPRESSION: 1. Improvement in lung volumes and aeration. 2. Cardiomegaly. Heart size has decreased when compared to the previous exam. Assessment and Plan - Plan Summary Summary: Pre-Renal ISAAC on CKD stage III: Baseline creatinine around 1.7-2. Most likely secondary to acute prerenal azotemia secondary to poor oral intake and diarrhea with exacerbating factors including diuretics prior to admission. - nephrology consulted - UOP and Cr improving with hydration Acute on chronic anemia of chronic kidney disease - baseline hgb 8 - transfused 2 units of pRBC upon presentation to ED - hemoglobin has gone from 7.2 to now 9.6 and now 9.9 - no signs/symptoms of bleeding - unclear if she was receiving Retacrit for the last several months, which was likely cause of her worsening anemia ESBL E Coli UTI - resistant to ceftriaxone which she has been getting this hospitalization, switch antibiotic to meropenem on 11/02 as susceptibilities are now available Diarrhea - Clinically resolved. Hypertension - uncontrolled - med adjustments made as per nephrology recs Hypomagnesemia - replete - Time Time Spent with patient: 35 or more minutes Anticipated Discharge Disposition: Residential Facility Anticipated Discharge Timeframe: within 24 hours
[2019-11-05] MEDS: HYDRALAZINE HCL 50 MG TABLET PO SCH ×3 (00:47→11:33)
[2019-11-05] MEDS: RINGERS SOLUTION,LACTATED 1,000 ML IV PRN (04:38)
[2019-11-05] MEDS: HEPARIN SOD (PORCINE) 5,000 UNIT/ML 1 ML VIAL SUBCUT SCH ×2 (06:09→13:11)
[2019-11-05] MEDS: PANTOPRAZOLE SODIUM 40 MG TABLET.DR PO SCH (06:09)
[2019-11-05] MEDS: ONDANSETRON HCL INJ/PF 4 MG/2 ML SDV IV PRN ×2 (06:17→13:11)
[2019-11-05 06:20] LABS: HEMATOCRIT 28.1 % (36.0-47.0); HEMOGLOBIN 9.7 g/dL (12.0-15.5); MEAN CORPUSCULAR HEMOGLOBIN 30.2 pg (27.0-33.4); MEAN CORPUSCULAR HGB CONC 34.4 g/dL (32.0-36.0); MEAN CORPUSCULAR VOLUME 88 fl (80-97); PLATELET COUNT 262 10^3/uL (150-450); RED BLOOD COUNT 3.21 10^6/uL (3.72-5.28); RED CELL DISTRIBUTION WIDTH 15.2 % (11.5-14.0); WHITE BLOOD COUNT 6.4 10^3/uL (4.0-10.5)
[2019-11-05 06:32] LABS: ANION GAP 6 (5-19); BLOOD UREA NITROGEN 60 mg/dL (7-20); CALCIUM 8.1 mg/dL (8.4-10.2); CARBON DIOXIDE 22 mmol/L (22-30); CHLORIDE 105 mmol/L (98-107); GLUCOSE 91 mg/dL (75-110); POTASSIUM 4.4 mmol/L (3.6-5.0)
[2019-11-05] MEDS: INSULIN REG, HUMAN 100 UNIT/ML 3 ML VIAL (PYX) SUBCUT SCH ×2 (07:23→11:28)
[2019-11-05] MEDS: NORMAL SALINE IV SCH (10:43)
[2019-11-05] MEDS: MEROPENEM IV SCH (10:43)
[2019-11-05] MEDS: MAGNESIUM OXIDE 400 MG TABLET PO SCH (10:43)
[2019-11-05] MEDS: AMLODIPINE BESYLATE 10 MG TABLET PO SCH (10:43)
[2019-11-05] MEDS ORDERED: ERTAPENEM SODIUM INJ 1 GM VIAL IV ONE (10:56)
--- NOTE | 2019-11-05 11:28 | PDOC DISCHARGE SUMMARY ---
Impression - Admit/DC Date/PCP Admission Date/Primary Care Provider: 11/02/19 00:05 NATACHA CORMIER MD Discharge Date: 11/05/19 - Discharge Diagnosis (1) Acute kidney injury superimposed on chronic kidney disease Is this a current diagnosis for this admission?: Yes (2) Anemia due to chronic kidney disease Is this a current diagnosis for this admission?: Yes (3) Chronic diastolic congestive heart failure Is this a current diagnosis for this admission?: Yes (4) Generalized muscle weakness Is this a current diagnosis for this admission?: Yes (5) Hypomagnesemia Is this a current diagnosis for this admission?: Yes (6) Acute UTI (urinary tract infection) Is this a current diagnosis for this admission?: Yes (7) Acute metabolic encephalopathy Is this a current diagnosis for this admission?: Yes (8) Nausea vomiting and diarrhea Is this a current diagnosis for this admission?: Yes (9) NILO (obstructive sleep apnea) Is this a current diagnosis for this admission?: Yes (10) Stage III chronic kidney disease Is this a current diagnosis for this admission?: Yes - Assessment Summary: Pre-Renal ISAAC on CKD stage III: Baseline creatinine around 1.7-2. Most likely secondary to dehydration secondary to poor oral intake and nausea/vomiting/diarrhea with exacerbating factors including multiple diuretics prior to admission. Nephrology consulted and she was started on IVF hydration with improvement in her kidney function. Her antihypertensive regimen has been adjusted to remove ACEI, diuretics and other potentially nephrotoxic agents at this time, until her creatinine stabilizes to her "new normal." Would recommend to recheck BMP in 1-2 weeks, and if creatinine is stable and/or decreased, consider restarting lisinopril at that time for renal-protective effects. She should continue close outpatient follow up with nephrology after discharge. Anemia of chronic kidney disease: her baseline hemoglobin is around 8. She was transfused 2 units of pRBC upon presentation to ED and her hemoglobin has gone from 7.2 to 9.9 (so, most likely, the initial hemoglobin was a lab error). She has had no signs/symptoms of bleeding and a negative hemoccult. It is unclear if she was receiving Epogen/Procrit for the last several months, but she should absolutely be receiving regular Epo injections given her known anemia of CKD. Acute ESBL E. Coli UTI: she was treated with a 3 day course of IV antibiotic therapy based on susceptibilities. Acute on Chronic Nausea/Vomiting/Diarrhea/Abdominal Pain: This is a chronic issue for her. At baseline, she has NBNB vomiting once daily or once every other day, after which she usually states that she feels better. She has chronic abdominal pain of unknown etiology. These things have improved with treatment of UTI and dehydration, but are present at baseline for her. Her home Zoloft was discontinued as it may contribute to GI discomfort. She has otherwise been treated with occasional Zofran and Tylenol with good effect. Would recommend to continue these treatments. She has not had diarrhea here in the hospital for several days after discontinuation of bowel regimen. Positive Orthostatic Vital Signs: due to dehydration and improved with hydration therapy. Would recommend ongoing fall precautions in this elderly woman with generalized weakness and at high risk for falls. Acute on Chronic Generalized Weakness: likely due to multiple diagnoses listed above. Would benefit from ongoing PT/OT at rehab. - Additional Information Resuscitation Status: Full Code Discharge Diet: As Tolerated Discharge Activity: Activity As Tolerated Referrals: NATACHA CORMIER MD [Primary Care Provider] - Follow up as needed Home Medications: Amlodipine Besylate [Norvasc 10 mg Tablet] 10 mg PO DAILY #30 tablet 05/13/19 Metoprolol Succinate [Toprol Xl 25 mg Tab.sr] 100 mg PO DAILY #0 05/23/19 Pantoprazole Sodium [Protonix [address] Tablet] 40 mg PO QAM 11/02/19 Acetaminophen [Tylenol 325 mg Tablet] 650 mg PO Q4HP PRN tablet 11/05/19 Epoetin Garrick-Epbx [Retacrit 10,000 Unit/ml Vial (Non-Esrd)] 20,000 unit SUBCUT WeSa@2200 vial 11/05/19 Guaifenesin [Robitussin Syrup 200 mg/10 ml Ud Cup] 200 mg PO Q4HP PRN udc 11/05/19 Hydralazine HCl [Apresoline 50 mg Tablet] 50 mg PO Q6 tablet 11/05/19 Levalbuterol HCl [Xopenex Neb 0.63 mg/3 ml Ampul] 0.63 mg NEB RTQ2HP PRN vi al.neb 11/05/19 Mag Hydrox/Al Hydrox/Simeth [Maalox Plus Susp 30 Udcup] 30 ml PO Q6HP PRN udc 11/05/19 Magnesium Oxide [Mag-Ox 400 mg Tablet] 400 mg PO DAILY tablet 11/05/19 Melatonin [Melatonin 5 mg Tablet] 5 mg PO HSP PRN tablet 11/05/19 History of Present Illiness History of Present Illness: FINA HERNÁNDEZ is a 64 year old female Physical Exam Vital Signs: Temp Pulse Resp BP Pulse Ox 98.1 F 98 16 149/70 H 95 11/05/19 07:34 11/05/19 07:34 11/05/19 07:34 11/05/19 07:34 11/05/19 07:34 Intake & Output 11/04/19 11/05/19 11/06/19 06:59 06:59 06:59 Intake Total 2450 3132 Output Total 1275 1000 Balance 1175 2132 Weight 81.7 kg 87.7 kg Results Laboratory Results: WBC 6.4 10^3/uL (4.0-10.5) 11/05/19 05:06 RBC 3.21 10^6/uL (3.72-5.28) L 11/05/19 05:06 Hgb 9.7 g/dL (12.0-15.5) L 11/05/19 05:06 Hct 28.1 % (36.0-47.0) L 11/05/19 05:06 MCV 88 fl (80-97) 11/05/19 05:06 MCH 30.2 pg (27.0-33.4) 11/05/19 05:06 MCHC 34.4 g/dL (32.0-36.0) 11/05/19 05:06 RDW 15.2 % (11.5-14.0) H 11/05/19 05:06 Plt Count 262 10^3/uL (150-450) 11/05/19 05:06 Lymph % (Auto) 36.2 % (13-45) 11/02/19 09:00 [place] % (Auto) 11.7 % (3-13) 11/02/19 09:00 Eos % (Auto) 1.8 % (0-6) 11/02/19 09:00 Baso % (Auto) 1.1 % (0-2) 11/02/19 09:00 Reticulocyte # 0.034 10^6/uL (0.028-0.122) 11/03/19 05:35 Absolute Neuts (auto) 2.7 10^3/uL (1.7-8.2) 11/02/19 09:00 Absolute Lymphs (auto) 2.0 10^3/uL (0.5-4.7) 11/02/19 09:00 Absolute Monos (auto) 0.6 10^3/uL (0.1-1.4) 11/02/19 09:00 Absolute Eos (auto) 0.1 10^3/uL (0.0-0.6) 11/02/19 09:00 Absolute Basos (auto) 0.1 10^3/uL (0.0-0.2) 11/02/19 09:00 Seg Neutrophils % 49.2 % (42-78) 11/02/19 09:00 Retic Count (auto) 1.01 % (0.66-2.85) 11/03/19 05:35 Sodium 133.3 mmol/L (137-145) L 11/05/19 05:06 Potassium 4.4 mmol/L (3.6-5.0) 11/05/19 05:06 Chloride 105 mmol/L (98-107) 11/05/19 05:06 Carbon Dioxide 22 mmol/L (22-30) 11/05/19 05:06 Anion Gap 6 (5-19) 11/05/19 05:06 BUN 60 mg/dL (7-20) H 11/05/19 05:06 Creatinine 2.52 mg/dL (0.52-1.25) H 11/05/19 05:06 Est GFR ( Amer) 23 (>60) L 11/05/19 05:06 Est GFR (MDRD) Non-Af 19 (>60) L 11/05/19 05:06 Glucose 91 mg/dL (75-110) 11/05/19 05:06 POC Glucose 96 mg/dL (70-110) 11/05/19 06:12 Hemoglobin A1c % 5.0 % (4.7-6.0) 11/03/19 05:35 Calcium 8.1 mg/dL (8.4-10.2) L 11/05/19 05:06 Phosphorus 4.2 mg/dL (2.5-4.5) 11/03/19 05:35 Magnesium 2.4 mg/dL (1.6-2.3) H 11/05/19 05:06 Iron 44.3 ug/dL (37-170) 11/03/19 05:35 TIBC 209 ug/dL (250-450) L 11/03/19 05:35 % Saturation 21 % 11/03/19 05:35 Ferritin 279.00 ng/mL (11.1-264.0) H 11/03/19 05:35 Total Bilirubin 0.5 mg/dL (0.2-1.3) 11/01/19 19:05 Direct Bilirubin 0.4 mg/dL (0.0-0.4) 11/01/19 19:05 Neonat Total Bilirubin Not Reportable 11/01/19 19:05 Neonat Direct Bilirubin Not Reportable 11/01/19 19:05 Neonat Indirect Bili Not Reportable 11/01/19 19:05 AST 18 U/L (14-36) 11/01/19 19:05 ALT 9 U/L (<35) 11/01/19 19:05 Alkaline Phosphatase 109 U/L (38-126) 11/01/19 19:05 Troponin I 0.036 ng/mL 11/01/19 19:05 Total Protein 6.6 g/dL (6.3-8.2) 11/01/19 19:05 Albumin 3.5 g/dL (3.5-5.0) 11/01/19 19:05 Triglycerides 510 mg/dL (<150) H 11/03/19 05:35 Cholesterol 313.32 mg/dL (0-200) H 11/03/19 05:35 LDL Cholesterol Direct 160 mg/dL (<100) H 11/03/19 05:35 VLDL Cholesterol, Calc UNABLE TO CALCULATE 11/03/19 05:35 HDL Cholesterol 38 mg/dL (>40) L 11/03/19 05:35 Vitamin B12 304.0 pg/mL (239-931) 11/03/19 05:35 Folate 4.79 ng/mL (>2.76) 11/03/19 05:35 TSH 3.03 uIU/mL (0.47-4.68) 11/03/19 05:35 Free T3 pg/mL 2.08 pg/mL (2.77-5.27) L 11/01/19 19:05 PTH Intact 134.1 pg/mL (10.0-65.0) H 11/03/19 05:35 Urine Color YELLOW 11/01/19 22:50 Urine Appearance CLOUDY 11/01/19 22:50 Urine pH 5.0 (5.0-9.0) 11/01/19 22:50 Ur Specific [place] 1.011 11/01/19 22:50 Urine Protein >=500 mg/dL (NEGATIVE) H 11/01/19 22:50 Urine Glucose (UA) 50 mg/dL (NEGATIVE) H 11/01/19 22:50 Urine Ketones NEGATIVE mg/dL (NEGATIVE) 11/01/19 22:50 Urine Blood MODERATE (NEGATIVE) H 11/01/19 22:50 Urine Nitrite NEGATIVE (NEGATIVE) 11/01/19 22:50 Urine Bilirubin NEGATIVE (NEGATIVE) 11/01/19 22:50 Urine Urobilinogen NEGATIVE mg/dL (<2.0) 11/01/19 22:50 Ur Leukocyte Esterase LARGE (NEGATIVE) H 11/01/19 22:50 Urine WBC (Auto) 31 /HPF 11/01/19 22:50 Urine RBC (Auto) 13 /HPF 11/01/19 22:50 Urine Bacteria (Auto) 3+ /HPF 11/01/19 22:50 Urine WBC Clumps FEW /HPF 11/01/19 22:50 Squamous Epi Cells Auto <1 /HPF 11/01/19 22:50 Urine Mucus (Auto) RARE /LPF 11/01/19 22:50 Urine Ascorbic Acid NEGATIVE (NEGATIVE) 11/01/19 22:50 COVID-19 Source NASOPHARYNGEAL 11/02/19 15:00 COVID-19 (ERLINDA) NOT DETECTED 11/02/19 15:00 Blood Type O NEGATIVE 11/01/19 21:00 Antibody Screen NEGATIVE 11/01/19 21:00 Crossmatch See Detail 11/01/19 21:00 11/01/19 19:05 Troponin I 0.036 Impressions: Chest X-Ray 11/01/19 21:09 IMPRESSION: 1. Improvement in lung volumes and aeration. 2. Cardiomegaly. Heart size has decreased when compared to the previous exam. Stroke Is this a Stroke Patient?: No Acute Heart Failure - Is this a Heart Failure Patient?: No
[2019-11-05 11:29] VITALS: BP 118/57
[2019-11-05] MEDS ORDERED: ERTAPENEM SODIUM 0.5 GM in NORMAL SALINE 50 ML IV ONE (11:30)
== END 2019-11-05 13:48 | DRG 683 ==
LOC: ER 17:17 → EH 11-02 00:05 → 4N 11-02 01:20
PROVIDERS: ADMIT Emergency Medicine; ATTEND Hospitalist
PROC: 30233N1 Transfusion of Nonautologous Red Blood Cells into Peripheral Vein, Percutaneous Approach (ICD-10-PCS; principal; 2019-11-01)
DX: N17.9 Acute kidney failure, unspecified (principal); I13.2 Hypertensive heart and chronic kidney disease with heart failure and with stage 5 chronic kidney disease, or end stage renal disease; N39.0 Urinary tract infection, site not specified; I50.32 Chronic diastolic (congestive) heart failure; E11.22 Type 2 diabetes mellitus with diabetic chronic kidney disease; I25.10 Atherosclerotic heart disease of native coronary artery without angina pectoris; E78.5 Hyperlipidemia, unspecified; D63.1 Anemia in chronic kidney disease; E86.0 Dehydration; G47.33 Obstructive sleep apnea (adult) (pediatric); N18.3 Chronic kidney disease, stage 3 (moderate); E66.01 Morbid (severe) obesity due to excess calories; F41.1 Generalized anxiety disorder; F32.9 Major depressive disorder, single episode, unspecified; E11.43 Type 2 diabetes mellitus with diabetic autonomic (poly)neuropathy; E83.42 Hypomagnesemia; B96.20 Unspecified Escherichia coli [E. coli] as the cause of diseases classified elsewhere; M19.90 Unspecified osteoarthritis, unspecified site; I95.1 Orthostatic hypotension; R06.6 Hiccough; Z90.49 Acquired absence of other specified parts of digestive tract; Z82.49 Family history of ischemic heart disease and other diseases of the circulatory system; Z83.3 Family history of diabetes mellitus; Z79.899 Other long term (current) drug therapy
CPT/HCPCS: 36415; 36430; 71045; 80048; 80053; 80061; 81001; 82607; 82728; 82746; 82962; 83036; 83540; 83550; 83735; 83970; 84100; 84443; 84481; 84484; 85025; 85027; 85045; 86850; 86900; 86901; 86920; 87040; 87086; 87088; 87186; 87635; 93005; 93010; 96374; 99285; C9803; J0696; J1335; J1644; J1815; J2185; J2405; J3230; J3475; J3490; J7120; P9016; Q5106

== ENCOUNTER 2019-12-08 10:03 | Outpatient (CLI) | payer MEDICARE, MEDICAID ==
[~2019-12-08 10:03] MED LIST changes: +FERRIC CARBOXYMALTOSE 750 MG in NORMAL SALINE 100 ML IV PRN; -PROPOFOL INJ 200 MG/20 ML VIAL IV ONE
[2019-12-08 10:26] VITALS: BP 147/89
== END 2019-12-08 11:00 | disposition home or self-care (01) ==
LOC: II 10:03 → 5TH 10:10 → II 11:00
PROVIDERS: ATTEND Physician Assistant Medical
DX: D50.8 Other iron deficiency anemias (principal)
CPT/HCPCS: 96374; J7050; J1439; 96375